=== PATIENT | male | born 1970 | race Caucasian/White ===

== ENCOUNTER 2018-03-15 06:54 | Inpatient (IN) | payer OTHER, SELFPAY ==
[2018-03-15] VITALS (14 sets, daily range): BP systolic 120–178; BP diastolic 55–117; PULSE 67–82; RESP 14–20; TEMP 35.4–37.6; O2SAT 93–100; BMI 39.5; BMI 40.2
--- NOTE | 2018-03-15 07:30 | CT_ITS ---
STUDY: CT ABDOMEN AND PELVIS WITHOUT CONTRAST REASON FOR EXAM: Male, 47 years old. Acute onset of right flank pain with nausea and vomiting. RADIATION DOSAGE (If Supplied By Facility): CTDIvol = ( 23.92 ) mGy, DLP = ( 1213.33 ) mGycm TECHNIQUE: Transaxial images were obtained from the dome of the diaphragm to the symphysis pubis without oral contrast, and without intravenous contrast. Sagittal and coronal images were reconstructed. Individualized dose optimization techniques were used for this CT. COMPARISON: Comparison is made with prior study dated July 08, 2011. FINDINGS: The visualized lung bases are unremarkable. The visualized portions of the heart are within normal limits. Normal liver. Normal gallbladder and extrahepatic biliary system. Normal spleen. Normal pancreas. Normal bilateral adrenal glands. Right perinephric stranding. There is engorgement of the right kidney. Mild degree of right hydronephrosis and right hydroureter due to a 3 mm calculus in the mid portion of the right ureter. Normal left kidney. There is a small hiatal hernia. Normal small intestine. There are scattered colonic diverticula consistent with diverticulosis. The appendix is visualized and appears normal. Normal abdominal aorta. Normal inferior vena cava. Normal retroperitoneum. Mild degree of bladder wall thickening although the bladder is not adequately distended at this time. There are prostatic calcifications. There is a small umbilical hernia containing fat. Small benign-appearing bilateral annular lymph nodes. Normal osseous structures. CT/Abdomen/Pelvis without Cont IMPRESSION: 3 mm calculus in the midportion of the right ureter causing mild right hydronephrosis and right hydroureter with perinephric and periureteric stranding. Electronically Signed: Gabriel Johnson MD at 8:54 EDT Tel [phone], Service support ,
[2018-03-15] MEDS: 0.9% Normal Saline 1,000 ML 1000 ML IV (07:56)
[2018-03-15] MEDS: Ketorolac 30 MG/ML Syringe IV (07:56)
[2018-03-15 08:05] LABS: Bacteria 0 SEEN /hpf (None Seen); Mucous, Urine 0 SEEN /hpf (<or=2+); Squamous Epithelial Cells - UA 0 SEEN /hpf (0-5); White Blood Cells 0 SEEN /hpf (0-5)
[2018-03-15 08:09] LABS: Absolute Lymphocyte Count 1.41 X10^3/ul (0.83-4.51); Absolute Neutrophil Count 19.8 X10^3/uL (2.0-7.7); Basophil# 0.03 X10^3/uL; Basophil% 0.1 % (0-1); Eosinophil# 0.01 X10^3/uL; Hematocrit 48.2 % (40-54); Hemoglobin 15.3 g/dl (13.0-16.5); Lymphocyte # 1.41 X10^3/ul (4.0); Lymphocyte % 6.2 % (19-41); Mean Corp Hgb Conc 31.7 g/gl (32-36); Mean Corpuscular Volume 91.3 fL (80-94); Mean Platelet Vol. 10.8 fl (6.2-12.0); Monocyte% 6.2 % (0-10); Neutrophil # 19.83 X10^3/uL (2.7-7.7); Neutrophil % 87.3 % (47-70); Platelet Count 201 K/mm3 (150-450); RBC Distribution Width CV 14.1 % (11.6-14.6); RBC Distribution Width SD 47.1 fl (35.1-43.9); Red Blood Count 5.28 M/mm3 (4.6-6.2); White Blood Count 22.7 K/mm3 (4.4-11.0)
[2018-03-15 08:10] LABS: POSITIVE COUNT NO; POSITIVE DIFFERENTIAL NO; POSITIVE MORPHOLOGY NO
[2018-03-15 08:14] LABS: Color, Urine Yellow (Yellow); Glucose, Dipstick Normal (Normal); Ketone-Dipstick Negative (Negative); Leukocyte Esterase-Dipstick Negative /ul (Negative); Nitrite-Dipstick Negative (Negative); Occult Blood-Urine 250 /ul (Negative); Protein-Dipstick Negative (Negative); Urine Bilirubin Dipstick Negative (Negative); Urine Clarity Clear (Clear); Urine Urobilinogen Normal (Normal)
[2018-03-15 08:22] LABS: AST(SGOT) 15 U/L (15-37); Alanine Aminotransfer ALT/SGPT 30 U/L (16-61); Alkaline Phosphatase 109 U/L (45-117); Anion Gap 6 (5-15); BUN 18 mg/dL (7-18); BUN/Creat Ratio 14.9 RATIO (10-20); Chloride 99 mmol/L (98-107); Creatinine, Serum 1.21 mg/dL (0.70-1.30); EST Glomerular Filtration Rate 68 mL/min (>60); Est Glom Filt Rate - Afr Amer 83 mL/min (>60); Estimated Creatinine Clearance 73.02 ml/min; Globulin 4.1 g/dL (2.2-4.2); Glucose 139 mg/dL (74-106); Lipase 148 U/L (73-393); Potassium 4.5 mmol/L (3.5-5.1); Protein, Total 8.1 g/dL (6.4-8.2); Sodium Level 138 mmol/L (136-145)
[2018-03-15 08:24] LABS: Red Blood Cells-Urine 25-50 SEEN /hpf (0-5)
--- NOTE | 2018-03-15 09:07 | ED.DCSUM_ITS ---
- ER Visit Summary Date of Service: 03/15/18 Chief Complaint: Flank pain History of Present Illness: The patient is a 47 M presenting with right-sided flank pain radiation into his abdomen and testicle that started last night. The pain is waxing and waning sharp and stabbing. No fever or chills. No dysuria or penile discharge. No left-sided abdominal pain. No chest pain or shortness of breath. Physical Examination: Not appear in acute distress. Morbidly obese Moist mucous membranes, no obvious facial deformity No C-spine tenderness supple neck. Regular rate and rhythm without any obvious murmurs Clear lungs bilaterally speaking in full sentences without any obvious respiratory distress Abdomen soft there is mild right-sided abdominal pain, there is testicular pain but I cannot reproduce it. There is right CVA tenderness to palpation. Moves all extremities without any difficulty or pain. Skin does not show any obvious rashes or lesions, no trauma. Alert oriented ?3 with no gross focal deficit Emergency Department Course and Treatment: Patient is found to have a 3 mm stone with perinephric stranding on the right. His white count is quite elevated, although his urinalysis only shows blood. I discussed with urology, a stent will be placed in about 5-1/2 hours. In the meantime patient will receive IV antibiotics, and he will be admitted to the hospital. Disposition: Admit in guarded condition Impression: Kidney stone right-sided infected This note was generated with [employer] 1 [employer] dictation software. It may contain incorrect words, spelling, and punctuation that were not noted in review of the chart prior to signing ED Disposition - Plan for ED Patient: Chief Complaint: Flank Pain Referrals: Sonny Price MD [Primary Care Provider] -
--- NOTE | 2018-03-15 09:22 | NURSING ---
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
--- NOTE | 2018-03-15 09:36 | NURSING ---
DR HEDY CASON
--- NOTE | 2018-03-15 09:40 | NURSING ---
MED SURG INFECTED MARAH KNOTT/YOAV
--- NOTE | 2018-03-15 09:59 | NURSING ---
205 PYELONEPHRITIS, RT URETERAL STONE, URETERAL COLIC TERELETSKY
--- NOTE | 2018-03-15 10:17 | CM.ED ---
Case management interview attempted. Care team in room at this time, preparing for [place] [facility] [place] CM will follow, for needs, during inpatient stay.
[2018-03-15] MEDS: 0.9% Normal Saline 1,000 ML 150 ML IV ×2 (10:48→18:55)
--- NOTE | 2018-03-15 11:27 | EKG12_ITS ---
Test Reason : PREOP Blood Pressure : / mmHG Vent. Rate : 061 BPM Atrial Rate : 061 BPM P-R Int : 130 ms QRS Dur : 098 ms QT Int : 436 ms P-R-T Axes : 052 015 019 degrees QTc Int : 438 ms Normal sinus rhythm Normal ECG When compared with ECG of 22-APR-2016 22:27, No significant change was found Confirmed by AKIRA REICH, IDALMIS ([id number]), editorial director JOANNA CARRILLO ([id number]) on 03/23/2018 3:09:24 PM Referred By: HEDY Confirmed By:IDALMIS CHAMPION MD
[2018-03-15 12:10] LABS: Thyroid Stim Hormone (TSH) 3.69 uIU/mL (0.358-3.74)
--- NOTE | 2018-03-15 13:21 | HP.PCM_ITS ---
Problem List (1) Hypertension Status: Chronic (2) Hyperlipidemia Status: Chronic (3) Depression Status: Chronic (4) Obesity Status: Chronic (5) Tobacco dependence Status: Chronic (6) Hypothyroidism Status: Chronic History of Present Illness Date of Admission: 03/15/18 Chief Complaint: Right-sided flank pain The patient is a 47 year old M who presents to the emergency room with right- sided flank pain which began at 1 AM this morning, rather suddenly. Patient states pain radiates to right side of abdomen and groin. Patient reports pain is sharp in nature and 10 out of 10 prior to receiving pain medication. He complains of associated nausea with episode of vomiting this morning and chills. Denies subjective fever. Complains of dysuria. Denies urinary frequency or difficulty urinating. Denies history of kidney stones. His past medical history includes hypertension, hyperlipidemia, depression, hypothyroidism, tobacco dependence, obesity. Past Medical History Past Medical History (Chronic Problems): Chronic Problems Hypertension (Chronic) Hyperlipidemia (Chronic) Depression (Chronic) Obesity (Chronic) Tobacco dependence (Chronic) Hypothyroidism (Chronic) Allergies No Known Allergies Allergy (Verified 03/15/18 06:59) Home Medications: Ambulatory Orders Medication Instructions Recorded Amlodipine [Norvasc] 10 mg PO DAILY 03/15/18 Atorvastatin Calcium 20 mg PO DAILY 03/15/18 Metoprolol Succinate 50 mg PO DAILY 03/15/18 Paroxetine [Paxil] 10 mg PO DAILY 03/15/18 Surgical History: tonsillectomy, - - Lipoma removal Psychiatric History: Depression Lives: Spouse/ Significant Other Smoking Status: Current every day smoker - 1 pack per day Alcohol: None Drugs: None - *Family History Maternal History Items: Cancer - Breast Paternal History Items: Heart Disease - at age 45 from [place]. Review of Systems Constitutional: Reports: Chills. Denies: Fever, Weakness, Weight Change HEENT: Denies: Head Aches, Sinus Congestion, Sinus Drainage Cardiovascular: Denies: Chest Pain, Edema, Palpitations, Syncope Respiratory: Denies: Cough, Shortness of breath at rest, Sputum production Gastrointestinal: Reports: Abdominal Pain, Nausea, Vomiting. Denies: Diarrhea Genitourinary: Reports: Dysuria. Denies: Frequency, Hematuria, Retention, Urgency Musculoskeletal: Reports: - - Right flank pain. Denies: Joint Pain, Joint Tenderness Skin: Denies: Rash, Wounds Neurological: Denies: Numbness, Tingling, Focal weakness Psychiatric: Reports: Depression Hematologic/ Lymphatic: Denies: Easy Bruising, Easy Bleeding VTE Information - Inpt Only VTE Present on Admission: No VTE Mechan Device Prophylaxis: None VTE Pharm Prophylaxis ordered?: Yes - Physical Exam General: Alert, Oriented x3, Cooperative, No apparent distress HEENT: Atraumatic, PERRLA, EOMI, Normocephalic Oral: Moist Mucosa Neck: Supple, No JVD, Negative Carotid Bruits Lungs: Clear to auscultation, Normal air movement Cardiovascular: Regular rate, Regular Rhythm, Normal S1, Normal S2, No murmurs Abdomen: Bowel Sounds Present, Soft, Non Tender, Non-Distended, - - Right flank pain Extremities: No clubbing, No cyanosis, No edema, Capillary Refill Less than 3 Seconds Skin: No rashes, No breakdown Musculoskeletal: No Tenderness to Palpation of Joints or Extremities Neurological: Cranial nerves II-XII grossly intact, Neuro grossly intact Psych/Mental Status: Normal Affect, Appropriate Vital Signs Temp Pulse Resp BP Pulse Ox 97.9 F 67 18 150/94 H 97 03/15/18 10:38 03/15/18 10:38 03/15/18 10:38 03/15/18 10:38 03/15/18 10:38 Oxygen Delivery Method Room Air Weight: 119.975 kg Body Mass Index (BMI) 40.2 Assessment/Plan 1. Infected right ureter calculus with associated mild right hydronephrosis and right hydroureter-without evidence of sepsis. Patient does have elevated white count. Continue IV Rocephin. Urology consulted. Patient to undergo right ureteral stone removal this afternoon. Blood cultures pending. Continue as needed pain regimen. Urine culture pending. CT of abdomen pelvis on admission showed 3 mm calculus in the midportion of the right ureter causing mild right hydronephrosis and right hydroureter. 2. Hypertension-blood pressure elevated on admission, suspect secondary to acute pain related to #1. Continue home regimen. Add hydralazine as needed for systolic greater than 160. 3. Hyperlipidemia-continue statin. 4. Hypothyroidism-continue home Synthroid regimen. TSH 3.6. 5. Tobacco dependence-encouraged tobacco cessation. Patient requesting nicotine replacement patch. 6. Obesity-encouraged diet and lifestyle modifications. Nutrition consult. DVT prophylaxis-heparin subcu. This patient was seen by MALAIKA Stevens under the supervision of Dr. Watkins.
[2018-03-15] MEDS: Morphine 4 MG/ML Syringe IV (13:58)
[2018-03-15] MEDS: Metoprolol(XL)Succ 50 MG Tablet PO (15:17)
--- NOTE | 2018-03-15 16:37 | CASEMGMT ---
RN CM chart review. DC PLAN: Home No DME use. Mary UNDERWOODN RN ACM
--- NOTE | 2018-03-15 16:43 | PCM.CONS.U ---
Problem List (1) Right ureteral calculus Status: Acute Reason for Consult Date of Consultation: 03/15/18 Reason for Consultation: Right proximal ureteral calculi causing obstruction History of Present Illness: The patient is a 47 year old M male who presented to the hospital with a fairly elevated white blood count he has a 5 mm stone causing obstruction and hydronephrosis in the right kidney he was admitted for pain control possible pyelonephritis and started antibiotics, plan to taken to surgery today for possible stent placement possible ureteroscopy depending of the findings to the patient at this is a lot of infection may only at the place a stent bring him back for as well later. Past Medical History Past Medical History (Chronic Problems): Chronic Problems Hypertension (Chronic) Hyperlipidemia (Chronic) Depression (Chronic) Obesity (Chronic) Tobacco dependence (Chronic) Hypothyroidism (Chronic) Allergies No Known Allergies Allergy (Verified 03/15/18 06:59) Home Medications: Ambulatory Orders Medication Instructions Recorded Amlodipine [Norvasc] 10 mg PO DAILY 03/15/18 Atorvastatin Calcium 20 mg PO DAILY 03/15/18 Metoprolol Succinate 50 mg PO DAILY 03/15/18 Paroxetine [Paxil] 10 mg PO DAILY 03/15/18 Surgical History: tonsillectomy, - - Lipoma removal Psychiatric History: Depression Lives: Spouse/ Significant Other Smoking Status: Current every day smoker - 1 pack per day Alcohol: None Drugs: None - *Family History Maternal History Items: Cancer - Breast Paternal History Items: Heart Disease - at age 45 from [place]. Review of Systems Constitutional: Denies: Chills, Fever, Weight Change HEENT: Denies: Head Aches, Sinus Congestion, Sinus Drainage Cardiovascular: Denies: Chest Pain, Palpitations Respiratory: Denies: Cough, Shortness of breath at rest, Sputum production Gastrointestinal: Denies: Abdominal Pain, Nausea, Vomiting Genitourinary: Denies: Dysuria Musculoskeletal: Denies: Joint Pain, Joint Tenderness Skin: Denies: Rash, Wounds Neurological: Denies: Numbness, Tingling, Focal weakness Psychiatric: Denies: Anxiety, Depression, Homicidal Ideations, Suicidal Ideations Hematologic/ Lymphatic: Denies: Easy Bruising, Easy Bleeding Physical Exam - Physical Exam Vital Signs Temp 98.9 F 03/15/18 13:20 Pulse 67 03/15/18 15:17 Resp 18 03/15/18 13:20 BP 147/91 H 03/15/18 15:17 Pulse Ox 96 03/15/18 13:20 Intake & Output 03/13/18 03/14/18 03/15/18 23:59 23:59 23:59 Intake Total 380 / 380 Output Total 500 / 500 Balance -120 / -120 Weight: 119.975 kg Intake: IV fluid/meds 380 / 380 Output: Urine 500 / 500 General: Alert, Oriented x3 HEENT: Atraumatic Oral: Moist Mucosa Neck: Supple Lungs: Normal air movement Cardiovascular: Regular Rhythm Abdomen: Bowel Sounds Present, Soft, Obese Rectal: Exam deferred Laboratory Tests Past 24 Hrs 03/15/18 14:05 S.aureus Protein A PCR Cancelled MRSA (PCR) Pending Assessment/Plan All Active Problems Right ureteral calculus (Acute) 47-year-old male with obstructing stone in the proximal right ureter possible pyelonephritis plan to proceed with ureteroscopy extraction of stone and right stent placement tonight.
--- NOTE | 2018-03-15 17:18 | OP.PCM_ITS ---
Problem List (1) Right ureteral calculus Status: Acute Report of Operation Date of Procedure: 03/15/18 Pre-Operative Diagnosis: Right ureteral calculi with obstruction Post-Operative Diagnosis: Same Surgery/Procedure Performed:: Cystoscopy, right retrograde pyelogram, balloon dilation of the right ureter, right stent placement Description of Surgical Findings:: 47-year-old male presented to the hospital obstructing stone in the right ureter , taken back to the operating room after smooth induction of general anesthesia went into the bladder with a 19.5 rigid cystoscopy set, the entire length of the urethra is normal the prostate was normal inside the bladder identified the right ureteral orifice advanced a Glidewire up into the right kidney could not identify a stone under fluoroscopy could be radiolucent, I then attempted to place an axis sheath into the right kidney but I could not get past the ureteral orifice was white quite stenotic, so then I advanced the balloon dilator and balloon dilated the distal ureter but I could not get it to balloon dilate completely there was still an area of stenosis that would not dilate so at this point I tried one more time the passive axis sheath was still was not successful so I decided to abort the attempt to do ureteroscopy just place a stent with the bring him back in about 2 weeks let everything dilate. Patient anesthetic is currently being reversed he will be able to be discharged after he is in the hospital and I have my office call him to get him set up for surgery in about 2 weeks. Type of Anesthesia:: General Drains: stent kidney stone - Admit VTE Documentation VTE Present on Admission: No VTE Mechan Device Prophylaxis: SCD's VTE Pharm Prophylaxis ordered?: No Reason prophylaxis not ordered:: Treatment Not Indicated
[2018-03-15] MEDS: amLODIPine 10 MG Tablet PO (18:55)
[2018-03-15] MEDS: PARoxetine 10 MG Tablet PO (18:57)
[2018-03-15] MEDS: oxyCODONE 5 MG Tablet PO (19:52)
[2018-03-15] MEDS: Atorvastatin Calcium 20 MG Tablet PO (21:14)
[2018-03-15 23:19] LABS: M R Staph aureus DNA By PCR Negative (Negative); Probe Check PASS; Specimen Processing Control PASS
[2018-03-16] MEDS: 0.9% Normal Saline 1,000 ML 150 ML IV ×2 (01:07→06:59)
[2018-03-16] MEDS: Morphine 4 MG/ML Syringe IV (01:08)
[2018-03-16 03:48] VITALS: BP 109/64; PULSE 71; RESP 20; TEMP 36.9; O2SAT 96
[2018-03-16 06:14] LABS: Absolute Lymphocyte Count 2.24 X10^3/ul (0.83-4.51); Absolute Neutrophil Count 10.9 X10^3/uL (2.0-7.7); Basophil# 0.02 X10^3/uL; Basophil% 0.1 % (0-1); Eosinophil# 0.07 X10^3/uL; Eosinophils% 0.5 % (0-5); Hematocrit 42.3 % (40-54); Hemoglobin 12.9 g/dl (13.0-16.5); Lymphocyte # 2.24 X10^3/ul (4.0); Lymphocyte % 16.2 % (19-41); Mean Corp Hgb Conc 30.5 g/gl (32-36); Mean Corpuscular Hgb 28.3 pg (27.0-32.0); Mean Corpuscular Volume 92.8 fL (80-94); Mean Platelet Vol. 10.8 fl (6.2-12.0); Monocyte# 0.59 X10^3/uL; Monocyte% 4.3 % (0-10); Neutrophil # 10.91 X10^3/uL (2.7-7.7); Neutrophil % 78.7 % (47-70); Platelet Count 171 K/mm3 (150-450); RBC Distribution Width CV 14.7 % (11.6-14.6); RBC Distribution Width SD 50.2 fl (35.1-43.9); Red Blood Count 4.56 M/mm3 (4.6-6.2); White Blood Count 13.9 K/mm3 (4.4-11.0)
[2018-03-16 06:24] LABS: POSITIVE COUNT NO; POSITIVE DIFFERENTIAL NO; POSITIVE MORPHOLOGY NO
[2018-03-16 06:34] LABS: Anion Gap 6 (5-15); BUN 14 mg/dL (7-18); Calcium,Total 7.8 mg/dL (8.5-10.1); Chloride 106 mmol/L (98-107); EST Glomerular Filtration Rate 85 mL/min (>60); Est Glom Filt Rate - Afr Amer 103 mL/min (>60); Estimated Creatinine Clearance 88.35 ml/min; Glucose 93 mg/dL (74-106); Potassium 4.4 mmol/L (3.5-5.1); Sodium Level 143 mmol/L (136-145)
--- NOTE | 2018-03-16 07:53 | PCM.PN.BLA ---
Progress Note Once clinically stable can go home has stent in place my office will call patient to set up surgery to remove stone. call with questions.
[2018-03-16] MEDS: oxyCODONE 5 MG Tablet PO (08:55)
[2018-03-16 09:00] VITALS: RESP 18
[2018-03-16 09:34] VITALS: BP 118/70; PULSE 74; RESP 18; TEMP 36.9; O2SAT 97
--- NOTE | 2018-03-16 09:42 | DCINST_ITS ---
- Discharge Diagnoses Current Active Problems: Current Active and Chronic Problems Hypertension (Chronic) Hyperlipidemia (Chronic) Depression (Chronic) Obesity (Chronic) Tobacco dependence (Chronic) Hypothyroidism (Chronic) Right ureteral calculus (Acute) You will use the following diet at home:: No restrictions Discharge Activity: Return to Normal Activity Call your doctor if you observe: Fever of 101 or Higher, Inability to urinate, Dizziness, Fainting spells, Chest pain Allergies/Adverse Reactions: Allergies No Known Allergies Allergy (Verified 03/15/18 06:59) Medications to take at Discharge Amlodipine [Norvasc] 10 mg PO DAILY 03/15/18 Atorvastatin Calcium 20 mg PO DAILY 03/15/18 Metoprolol Succinate 50 mg PO DAILY 03/15/18 Paroxetine [Paxil] 10 mg PO DAILY 03/15/18 Ciprofloxacin [Cipro] 500 mg PO BID #10 tab 03/16/18 Hydrocodone Bitart/Apap 5-325 [[place] 5MG-325MG] 1 tablet PO Q4H PRN PRN 4 Days # 20 tablet 03/16/18 Nicotine [Nicoderm Cq] 21 mg TRANSDERM. DAILY #7 patch 03/16/18 The following prescriptions were given: Hydrocodone Bitart/Apap 5-325 [[place] 5MG-325MG] 1 tablet PO Q4H PRN PRN 4 Days # 20 tablet PRN Reason: Pain Nicotine [Nicoderm Cq] 21 mg TRANSDERM. DAILY #7 patch Ciprofloxacin [Cipro] 500 mg PO BID #10 tab Primary Care Physician: Sonny Price MD [Primary Care Provider] - Please follow up with your Primary Care Physician in: 1 Week Test Results: Test results from this visit will be discussed in further detail at your follow- up appointment, if applicable. Please Follow Up With: Harpreet Viramontes MD When: 2 Weeks Proposed Discharge Date: 03/16/18
--- NOTE | 2018-03-16 09:43 | PCM.DC.SUM ---
Discharge Date and Diagnosis Date of Admission: 03/15/18 Date of Discharge: 03/16/18 - Primary Discharge Diagnosis Active and Suspected Problems 1. Acute pyelonephritis and right ureteral colic with right hydronephrosis secondary to right ureter calculus 2. Hypertension 3. Hyperlipidemia 4. Hypothyroidism 5. Tobacco dependence 6. Obesity - Secondary Discharge Diagnosis Chronic Problems Hypertension (Chronic) Hyperlipidemia (Chronic) Depression (Chronic) Obesity (Chronic) Tobacco dependence (Chronic) Hypothyroidism (Chronic) Hospital Course and Treatment Imaging Results: Diagnostic Data Abdomen/Pelvis CT 03/15/18 07:30 IMPRESSION: 3 mm calculus in the midportion of the right ureter causing mild right hydronephrosis and right hydroureter with perinephric and periureteric stranding. Electronically Signed: Gabriel Johnson MD at 8:54 EDT Tel [phone], Service support , Dr. Viramontes- Urology Procedures: - - Cystoscopy, right ureter stent placement Summary of Care Provided: Patient is a 47-year-old male admitted 03/15/2018 due to right-sided flank pain. His past medical history includes hypertension, hyperlipidemia, depression, hypothyroidism, tobacco dependence, obesity. 1. Acute pyelonephritis and right ureteral colic with right hydronephrosis-no evidence of sepsis. Leukocytosis improved. Patient received IV Rocephin during admission. Will discharge on Cipro 500 mg twice daily for 5 more days. Patient underwent cystoscopy, right retrograde pyelogram, balloon dilation of the right ureter with right stent placement 03/15/[address] Viramontes due to right ureteral calculi with obstruction. CT of abdomen pelvis on admission showed 3 mm calculus in the midportion of the right ureter causing mild right hydronephrosis and right hydroureter. Patient will follow up with Dr. Viramontes in 2 weeks. PCP in 1 Week. Patient will be discharged with [place] as needed for pain. Blood and urine cultures pending at discharge. 2. Hypertension-stable, continue home regimen. 3. Hyperlipidemia-continue statin. 4. Hypothyroidism-continue home Synthroid regimen. TSH 3.6. 5. Tobacco dependence-encouraged tobacco cessation. Patient requesting nicotine replacement patch at discharge. 6. Obesity-encouraged diet and lifestyle modifications. General: Alert, Oriented x3, Cooperative, No apparent distress HEENT: Atraumatic, PERRLA, EOMI, Normocephalic Oral: Moist Mucosa Neck: Supple, No JVD, Negative Carotid Bruits Lungs: Clear to auscultation, Normal air movement Cardiovascular: Regular rate, Regular Rhythm, Normal S1, Normal S2, No murmurs Abdomen: Bowel Sounds Present, Soft, Non Tender, Non-Distended Extremities: No clubbing, No cyanosis, No edema, Capillary Refill Less than 3 Seconds Skin: No rashes, No breakdown Musculoskeletal: No Tenderness to Palpation of Joints or Extremities Neurological: Cranial nerves II-XII grossly intact, Neuro grossly intact Psych/Mental Status: Normal Affect, Appropriate Patient seen and examined at discharge. Physical assessment as noted above. Patient stable for discharge home with the follow-up recommendations as noted above. This patient was seen by MALAIKA Stevens under the supervision of Dr. Watkins. Discharge Diet: No Restrictions Discharge Activity: Return to Normal Activity Call your doctor if you observe: Fever of 101 or Higher, Inability to urinate, Dizziness, Fainting spells, Chest pain Home Medications: Medications to take at Discharge Amlodipine [Norvasc] 10 mg PO DAILY 03/15/18 Atorvastatin Calcium 20 mg PO DAILY 03/15/18 Metoprolol Succinate 50 mg PO DAILY 03/15/18 Paroxetine [Paxil] 10 mg PO DAILY 03/15/18 Ciprofloxacin [Cipro] 500 mg PO BID #10 tab 03/16/18 Hydrocodone Bitart/Apap 5-325 [[place] 5MG-325MG] 1 tablet PO Q4H PRN PRN 4 Days #20 tablet 03/16/18 Nicotine [Nicoderm Cq] 21 mg TRANSDERM. DAILY #7 patch 03/16/18 Following Prescrptions Were Given to Patient: Hydrocodone Bitart/Apap 5-325 [[place] 5MG-325MG] 1 tablet PO Q4H PRN PRN 4 Days #20 tablet PRN Reason: Pain Nicotine [Nicoderm Cq] 21 mg TRANSDERM. DAILY #7 patch Ciprofloxacin [Cipro] 500 mg PO BID #10 tab Primary Care Physician: Sonny Price MD [Primary Care Provider] - Please follow up with your Primary Care Physician in: 1 Week Please Follow Up With: Harpreet Viramontes MD When: 2 Weeks Disposition: Home Minutes spent on discharge:: 35 Patient Condition:: Stable Medical Necessity - Tobacco Use Smoking Status: Current every day smoker - 1 pack per day Meaningful Use Info Meaningful Use Diagnoses (Choose all that apply): None applicable
--- NOTE | 2018-03-16 09:51 | DS.PCM_ITS ---
Discharge Date and Diagnosis Date of Admission: 03/15/18 Date of Discharge: 03/16/18 - Primary Discharge Diagnosis Active and Suspected Problems 1. Acute pyelonephritis and right ureteral colic with right hydronephrosis secondary to right ureter calculus 2. Hypertension 3. Hyperlipidemia 4. Hypothyroidism 5. Tobacco dependence 6. Obesity - Secondary Discharge Diagnosis Chronic Problems Hypertension (Chronic) Hyperlipidemia (Chronic) Depression (Chronic) Obesity (Chronic) Tobacco dependence (Chronic) Hypothyroidism (Chronic) Hospital Course and Treatment Imaging Results: Diagnostic Data Abdomen/Pelvis CT 03/15/18 07:30 IMPRESSION: 3 mm calculus in the midportion of the right ureter causing mild right hydronephrosis and right hydroureter with perinephric and periureteric stranding. Electronically Signed: Gabriel Johnson MD at 8:54 EDT Tel [phone], Service support , Dr. Viramontse- Urology Procedures: - - Cystoscopy, right ureter stent placement Summary of Care Provided: Patient is a 47-year-old male admitted 03/15/2018 due to right-sided flank pain. His past medical history includes hypertension, hyperlipidemia, depression, hypothyroidism, tobacco dependence, obesity. 1. Acute pyelonephritis and right ureteral colic with right hydronephrosis-no evidence of sepsis. Leukocytosis improved. Patient received IV Rocephin during admission. Will discharge on Cipro 500 mg twice daily for 5 more days. Patient underwent cystoscopy, right retrograde pyelogram, balloon dilation of the right ureter with right stent placement 03/15/[address] Viramontes due to right ureteral calculi with obstruction. CT of abdomen pelvis on admission showed 3 mm calculus in the midportion of the right ureter causing mild right hydronephrosis and right hydroureter. Patient will follow up with Dr. iVramontes in 2 weeks. PCP in 1 Week. Patient will be discharged with [place] as needed for pain. Blood and urine cultures pending at discharge. 2. Hypertension-stable, continue home regimen. 3. Hyperlipidemia-continue statin. 4. Hypothyroidism-continue home Synthroid regimen. TSH 3.6. 5. Tobacco dependence-encouraged tobacco cessation. Patient requesting nicotine replacement patch at discharge. 6. Obesity-encouraged diet and lifestyle modifications. General: Alert, Oriented x3, Cooperative, No apparent distress HEENT: Atraumatic, PERRLA, EOMI, Normocephalic Oral: Moist Mucosa Neck: Supple, No JVD, Negative Carotid Bruits Lungs: Clear to auscultation, Normal air movement Cardiovascular: Regular rate, Regular Rhythm, Normal S1, Normal S2, No murmurs Abdomen: Bowel Sounds Present, Soft, Non Tender, Non-Distended Extremities: No clubbing, No cyanosis, No edema, Capillary Refill Less than 3 Seconds Skin: No rashes, No breakdown Musculoskeletal: No Tenderness to Palpation of Joints or Extremities Neurological: Cranial nerves II-XII grossly intact, Neuro grossly intact Psych/Mental Status: Normal Affect, Appropriate Patient seen and examined at discharge. Physical assessment as noted above. Patient stable for discharge home with the follow-up recommendations as noted above. This patient was seen by MALAIKA Stevens under the supervision of Dr. Watkins. Discharge Diet: No Restrictions Discharge Activity: Return to Normal Activity Call your doctor if you observe: Fever of 101 or Higher, Inability to urinate, Dizziness, Fainting spells, Chest pain Home Medications: Medications to take at Discharge Amlodipine [Norvasc] 10 mg PO DAILY 03/15/18 Atorvastatin Calcium 20 mg PO DAILY 03/15/18 Metoprolol Succinate 50 mg PO DAILY 03/15/18 Paroxetine [Paxil] 10 mg PO DAILY 03/15/18 Ciprofloxacin [Cipro] 500 mg PO BID #10 tab 03/16/18 Hydrocodone Bitart/Apap 5-325 [[place] 5MG-325MG] 1 tablet PO Q4H PRN PRN 4 Days # 20 tablet 03/16/18 Nicotine [Nicoderm Cq] 21 mg TRANSDERM. DAILY #7 patch 03/16/18 Following Prescrptions Were Given to Patient: Hydrocodone Bitart/Apap 5-325 [[place] 5MG-325MG] 1 tablet PO Q4H PRN PRN 4 Days # 20 tablet PRN Reason: Pain Nicotine [Nicoderm Cq] 21 mg TRANSDERM. DAILY #7 patch Ciprofloxacin [Cipro] 500 mg PO BID #10 tab Primary Care Physician: Sonny Price MD [Primary Care Provider] - Please follow up with your Primary Care Physician in: 1 Week Please Follow Up With: Harpreet Viramontes MD When: 2 Weeks Disposition: Home Minutes spent on discharge:: 35 Patient Condition:: Stable Medical Necessity - Tobacco Use Smoking Status: Current every day smoker - 1 pack per day Meaningful Use Info Meaningful Use Diagnoses (Choose all that apply): None applicable
[2018-03-16] MEDS: Ceftriaxone 1 GM/50 ML BAG IV (10:11)
[2018-03-16 10:13] VITALS: PULSE 64
[2018-03-16] MEDS: PARoxetine 10 MG Tablet PO (10:13)
[2018-03-16] MEDS: Metoprolol(XL)Succ 50 MG Tablet PO (10:13)
[2018-03-16] MEDS: amLODIPine 10 MG Tablet PO (10:14)
[2018-03-16] MEDS: Heparin Injection (Vial) 5,000 UNIT/ML VIAL 5000 UNIT SC (10:14)
[2018-03-16 11:51] VITALS: BP 130/77; PULSE 70; RESP 18; TEMP 36.8; O2SAT 95
== END 2018-03-16 11:48 | disposition home or self-care (01) | DRG 690 ==
LOC: ED 09:28 → MS2 09:58
PROVIDERS: Urology; Admitting Provider Internal Medicine; Emergency Provider Emergency Medicine; Family Provider Family Medicine; PCP Family Medicine; Visit Provider Internal Medicine
PROC: 0T768DZ Dilation of Right Ureter with Intraluminal Device, Via Natural or Artificial Opening Endoscopic (ICD-10-PCS; principal; 2018-03-15 09:15)
DX: N13.6 Pyonephrosis (principal); Z68.41 Body mass index [BMI] 40.0-44.9, adult; N10 Acute pyelonephritis; E78.5 Hyperlipidemia, unspecified; E03.9 Hypothyroidism, unspecified; E66.9 Obesity, unspecified; I10 Essential (primary) hypertension; F32.9 Major depressive disorder, single episode, unspecified; F17.210 Nicotine dependence, cigarettes, uncomplicated
CPT/HCPCS: 36415; 74176; 76000; 80048; 80053; 81001; 83690; 84443; 85025; 87040; 87086; 87641; 93005; 99282; J7030; A4216; C1769; C2617; J2405

== ENCOUNTER → 2018-03-25 20:25 | Outpatient (CLI) | payer OTHER, SELFPAY | LOC: SL 20:25 | PROVIDERS: Family Provider Family Medicine; PCP Family Medicine; Visit Provider Family Medicine | DX: G47.33 Obstructive sleep apnea (adult) (pediatric) (principal) | CPT/HCPCS: 95811 ==

== ENCOUNTER → 2018-03-29 15:44 | Outpatient (CLI) | payer OTHER, SELFPAY ==
[2018-04-06 20:07] LABS: Ca Oxalate, Monohydrate 97 % (.)
== END ==
PROVIDERS: Visit Provider Urology
DX: N20.0 Calculus of kidney (principal)
CPT/HCPCS: 82360

== ENCOUNTER 2019-02-08 07:19 | Emergency (ER) | payer OTHER, SELFPAY ==
[2019-02-08 07:22] VITALS: BP 171/112; PULSE 82; RESP 16; TEMP 37.1; O2SAT 99; BMI 37.2
--- NOTE | 2019-02-08 07:40 | CT_ITS ---
STUDY: CT ABDOMEN AND PELVIS WITHOUT CONTRAST REASON FOR EXAM: Male, 48 years old. Right flank pain. History of kidney stones. RADIATION DOSAGE (If Supplied By Facility): CTDIvol = ( 19.95 ) mGy, DLP = ( 1051.73 ) mGycm TECHNIQUE: Transaxial images were obtained from the dome of the diaphragm to the symphysis pubis without oral contrast, and without intravenous contrast. Sagittal and coronal images were reconstructed. Individualized dose optimization techniques were used for this CT. COMPARISON: Comparison is made with prior study dated March 15, 2018. FINDINGS: The visualized lung bases are unremarkable. The visualized portions of the heart are within normal limits. Normal liver. Normal gallbladder and extrahepatic biliary system. Normal spleen. Normal pancreas. There is symmetric mild enlargement of the adrenal glands suggesting adrenal hyperplasia. Normal right kidney. Fullness of the right ureter although no obstructive calculus is seen. Normal left kidney. There is a small hiatal hernia. Normal small intestine. There are scattered colonic diverticula consistent with diverticulosis. The appendix is visualized and appears normal. There is scattered atherosclerotic calcification of the abdominal aorta, without a demonstrated aneurysm. Normal inferior vena cava. There is borderline retroperitoneal lymphadenopathy with enlarged nodes no greater than 10mm in the short axis diameter. Distended urinary bladder. There are prostatic calcifications. There is a small umbilical hernia containing fat. There are mild degenerative changes of the visualized lumbar spine. CT/Abdomen/Pelvis without Cont IMPRESSION: Fullness of the right ureter without obstructive uropathy. Distended urinary bladder. Electronically Signed: Gabriel Johnson, at 8:47 EDT , Service support ,
--- NOTE | 2019-02-08 07:42 | ED.VIS.GEN ---
History of Present Illness Chief Complaint: Back Informant: Patient, Significant Other Onset: Days - Onset Thursday Context: Sudden Onset Timing: Continuous, Waxes and wanes Quality: Pain Location: Right flank radiating anteriorly Current Severity: Moderate Maximum Severity: Severe Worsened by: Nothing at times and movement movement Relieved by: Nothing Associated Symptoms: Urgency and patient reports black stool Narrative: Patient is a middle-age male with history of hypertension and prior ureterolithiasis requiring surgery approximately 1 year ago who presents with right flank pain that started Thursday. The pain radiates anteriorly. The pain she did states pain has intensified. Today the pain was severe. He does report urgency. He denies hematuria. He denies dysuria. He denies fever, chills or night sweats. He does report nausea without vomiting or diarrhea. He denies anorexia. He states this is similar to the pain he experienced with prior stone. Prior similar symptoms: Yes Recent Illness/Hospitalization: No - Past Medical History (1) Right ureteral calculus Status: Acute (2) Depression Status: Chronic (3) Hyperlipidemia Status: Chronic (4) Hypertension Status: Chronic (5) Hypothyroidism Status: Chronic (6) Obesity Status: Chronic (7) Tobacco dependence Status: Chronic Past Medical History - Allergies and Home Meds Allergies/Adverse Reactions: Allergies No Known Allergies Allergy (Verified 02/08/19 07:20) Primary Care Physician: Sonny Price MD [Primary Care Provider] - Prior records reviewed: Yes Surgical History: tonsillectomy, - - Lipoma removal Lives: Spouse/ Significant Other Smoking Status: Current every day smoker Drugs: None - Family History Maternal Family History: Reports: Cancer - Breast Paternal Family History: Reports: Heart Disease - at age 45 from [place]. Review of Systems General: Denies: Chills, Fever, Sweats Eyes: Denies: Visual changes - bilaterally, Diplopia ENT: Denies: Rhinorrhea, Sore throat Cardiovascular: Denies: Chest pain, Palpitations Respiratory: Denies: Dyspnea, Cough, Dyspnea on exertion Gastrointestinal: Reports: Abdominal pain, Nausea, Melena. Denies: Vomiting, Diarrhea, Constipation, Hematochezia, -, - Genitourinary: Reports: - - He does report urgency. Denies: Dysuria, Hematuria, Frequency Musculoskeletal: Reports: Back pain. Denies: Myalgias, Arthralgias, Neck pain, Swelling, Extremity Pain, -, - Skin: Denies: Rash, Wounds Neurological: Denies: Headache, Weakness, Numbness Endocrine: Denies: Polyuria, Polydipsia Hematologic: Denies: Easy bruising, Easy bleeding Physical Exam Vital Signs/Narrative: Vital Signs Temp Pulse Resp BP Pulse Ox 02/08/19 07:22 98.7 F 82 16 171/112 H 99 Inital Vital Signs reviewed: Yes - Blood pressure is elevated. Patient is in significant discomfort will reas General: Well nourished, Well developed, Obese, Acute Distress Head: Normocephalic, Atraumatic Eyes: Perrl, EOMI. Negative for: Pale conjunctiva, Scleral icterus, - ENT: Moist mucous membranes, No rhinorrhea Neck: Supple, Nontender, No lymphadenopathy, No JVD Cardiovascular: Regular rate, Regular rhythm, No murmurs, Normal S1, Normal S2 Respiratory: No distress, CTA bilaterally, Chest nontender Abdomen: Soft, Nondistended, No masses, Tender - Tenderness to right lower quadrant and over the right kidney., Guarding - With deep palpation on the right side, Hypoactive bowel sounds. Negative for: Nontender, Normal bowel sounds, Rebound tenderness, Hepatomegaly, Splenomegaly, Mass, Pulsatile mass, Ventral hernia, Umbilical hernia Rectal: - - No fissures, fistulas or hemorrhoids. Prostate normal size and nontender. Stool is brown. Back: Nontender, Normal Inspection, CVA tenderness - On the right Extremities: Nontender, No edema Skin: Normal color, No rash, No Trauma. Negative for: Cyanosis, Diaphoresis, Jaundice Neurological: Alert, Oriented x3, Cranial nerves II-XII grossly intact, Normal Strength, Normal Sensation, Normal Gait Psychological: Normal affect, Normal Mood Diagnostic/Tx/Re-eval Impressions Abdomen/Pelvis CT 02/08/19 07:40 IMPRESSION: Fullness of the right ureter without obstructive uropathy. Distended urinary bladder. Electronically Signed: Gabriel Johnson, at 8:47 EDT , Service support , 02/08/19 07:40 Abdomen/Pelvis without Cont [CT] Stat Laboratory Results 02/08/19 02/08/19 02/08/19 07:30 07:47 07:47 WBC 13.5 H RBC 5.66 Hgb 16.2 Hct 49.0 MCV 86.6 MCH 28.6 MCHC 33.1 RDW 14.6 RDW Differential 46.2 H Plt Count 200 MPV 10.3 Immature Gran % (Auto) 0.900 Neut % (Auto) 74.9 H Lymph % (Auto) 17.4 L [place] % (Auto) 5.2 Eos % (Auto) 1.3 Baso % (Auto) 0.3 Absolute Neuts (auto) 10.1 H Absolute Lymphs (auto) 2.34 Total Counted Not Reportable Sodium 138 Potassium 3.9 Chloride 100 Carbon Dioxide 31.0 Anion Gap 7 BUN 13 Creatinine 0.82 Estim Creat Clear Calc 106.59 Est GFR (MDRD) Af Amer 128 Est GFR (MDRD) Non-Af 106 BUN/Creatinine Ratio 15.8 Glucose 100 Calcium 9.0 Urine Color Straw Urine Clarity Clear Urine pH 7.0 Ur Specific [place] 1.005 Urine Protein Negative Urine Glucose (UA) Normal Urine Ketones Negative Urine Occult Blood Negative Urine Nitrite Negative Urine Bilirubin Negative Urine Urobilinogen Normal Ur Leukocyte Esterase Negative Urine RBC 0 SEEN Urine WBC 0 SEEN Ur Squamous Epith Cells 0 SEEN Urine Bacteria 0 SEEN Urine Mucus 0 SEEN Blood work is remarkable and elevated white count. Bladder scan revealed 236 cc of urine. Postvoid was 0. Because of his leukocytosis unknown. Since the appendix was visualized and normal and onset of pain was greater than 48 hours highly doubt appendicitis. Suspect leukocytosis is demargination secondary to pain. - Medical Decision Making With right flank pain rating anteriorly with urgency suspect ureterolithiasis. With complaint of pain with movement may represent atypical presentation of retro-celiac appendicitis. There is tenderness in the proximity McBurney's point. This may also represent right-sided diverticulitis. 2 work-up patient's presentation a CBC, BMP and UA were ordered. He was medicated with 4 mg of Zofran, 50 mg of Toradol IV push and fluids. A CT of the abdomen pelvis without contrast was ordered to evaluate the system as well as the appendix and bowel. One would anticipate inflammatory changes if appendicitis or diverticulitis with onset of pain greater than 48 hours ago and reason for unenhanced scan. Patient still complaining of pain. Since the CAT scan reveals no acute pathology other than dilated ureter there may be a nonvisualized stone. Doubt passed stone since there is no stone noted in the bladder and patient did not pass stone when he urinated after bladder scan. Will treat with NSAID and opiate analgesia and follow-up in 24 to 48 hours. ED Disposition - Plan for ED Patient: Disposition: Home or Assisted Living Diagnosis: Acute right flank pain, Right lower quadrant abdominal pain, Leukocytosis, Acute low back pain without sciatica Instructions: ED Flank Pain Uncertain Cause, ED Abdominal Pain Unkn Cause Male, ED Neck Back Pain General Prescriptions: Hydrocodone Bitart/Apap 5-325 [[place] 5MG-325MG] 1 tablet PO Q6H PRN PRN 3 Days #10 tablet PRN Reason: Pain Naproxen [Naprosyn] 500 mg PO BID #14 tablet Referrals: Sonyn Price MD [Primary Care Provider] - 1-2 Days if not improving Additional Instructions: Your prescriptions were electronically transmitted to [facility] located in [place]. There is no improvement in 24 hours recommend follow-up with your primary care physician Dr. Price. If you unable to be seen by your doctor do not hesitate to return to the emergency department.
--- NOTE | 2019-02-08 07:46 | ED.DCSUM_ITS ---
History of Present Illness Chief Complaint: Back Informant: Patient, Significant Other Onset: Days - Onset Thursday Context: Sudden Onset Timing: Continuous, Waxes and wanes Quality: Pain Location: Right flank radiating anteriorly Current Severity: Moderate Maximum Severity: Severe Worsened by: Nothing at times and movement movement Relieved by: Nothing Associated Symptoms: Urgency and patient reports black stool Narrative: Patient is a middle-age male with history of hypertension and prior ureterolithiasis requiring surgery approximately 1 year ago who presents with right flank pain that started Thursday. The pain radiates anteriorly. The pain she did states pain has intensified. Today the pain was severe. He does report urgency. He denies hematuria. He denies dysuria. He denies fever, chills or night sweats. He does report nausea without vomiting or diarrhea. He denies anorexia. He states this is similar to the pain he experienced with prior stone. Prior similar symptoms: Yes Recent Illness/Hospitalization: No - Past Medical History (1) Right ureteral calculus Status: Acute (2) Depression Status: Chronic (3) Hyperlipidemia Status: Chronic (4) Hypertension Status: Chronic (5) Hypothyroidism Status: Chronic (6) Obesity Status: Chronic (7) Tobacco dependence Status: Chronic Past Medical History - Allergies and Home Meds Allergies/Adverse Reactions: Allergies No Known Allergies Allergy (Verified 02/08/19 07:20) Primary Care Physician: Sonny Price MD [Primary Care Provider] - Prior records reviewed: Yes Surgical History: tonsillectomy, - - Lipoma removal Lives: Spouse/ Significant Other Smoking Status: Current every day smoker Drugs: None - Family History Maternal Family History: Reports: Cancer - Breast Paternal Family History: Reports: Heart Disease - at age 45 from [place]. Review of Systems General: Denies: Chills, Fever, Sweats Eyes: Denies: Visual changes - bilaterally, Diplopia ENT: Denies: Rhinorrhea, Sore throat Cardiovascular: Denies: Chest pain, Palpitations Respiratory: Denies: Dyspnea, Cough, Dyspnea on exertion Gastrointestinal: Reports: Abdominal pain, Nausea, Melena. Denies: Vomiting, Diarrhea, Constipation, Hematochezia, -, - Genitourinary: Reports: - - He does report urgency. Denies: Dysuria, Hematuria, Frequency Musculoskeletal: Reports: Back pain. Denies: Myalgias, Arthralgias, Neck pain, Swelling, Extremity Pain, -, - Skin: Denies: Rash, Wounds Neurological: Denies: Headache, Weakness, Numbness Endocrine: Denies: Polyuria, Polydipsia Hematologic: Denies: Easy bruising, Easy bleeding Physical Exam Vital Signs/Narrative: Vital Signs Temp Pulse Resp BP Pulse Ox 02/08/19 07:22 98.7 F 82 16 171/112 H 99 Inital Vital Signs reviewed: Yes - Blood pressure is elevated. Patient is in significant discomfort will reas General: Well nourished, Well developed, Obese, Acute Distress Head: Normocephalic, Atraumatic Eyes: Perrl, EOMI. Negative for: Pale conjunctiva, Scleral icterus, - ENT: Moist mucous membranes, No rhinorrhea Neck: Supple, Nontender, No lymphadenopathy, No JVD Cardiovascular: Regular rate, Regular rhythm, No murmurs, Normal S1, Normal S2 Respiratory: No distress, CTA bilaterally, Chest nontender Abdomen: Soft, Nondistended, No masses, Tender - Tenderness to right lower quadrant and over the right kidney., Guarding - With deep palpation on the right side, Hypoactive bowel sounds. Negative for: Nontender, Normal bowel sounds, Rebound tenderness, Hepatomegaly, Splenomegaly, Mass, Pulsatile mass, Ventral hernia, Umbilical hernia Rectal: - - No fissures, fistulas or hemorrhoids. Prostate normal size and nontender. Stool is brown. Back: Nontender, Normal Inspection, CVA tenderness - On the right Extremities: Nontender, No edema Skin: Normal color, No rash, No Trauma. Negative for: Cyanosis, Diaphoresis, Jaundice Neurological: Alert, Oriented x3, Cranial nerves II-XII grossly intact, Normal Strength, Normal Sensation, Normal Gait Psychological: Normal affect, Normal Mood Diagnostic/Tx/Re-eval Impressions Abdomen/Pelvis CT 02/08/19 07:40 IMPRESSION: Fullness of the right ureter without obstructive uropathy. Distended urinary bladder. Electronically Signed: Gabriel Johnson, at 8:47 EDT , Service support , 02/08/19 07:40 Abdomen/Pelvis without Cont [CT] Stat Laboratory Results 02/08/19 02/08/19 02/08/19 07:30 07:47 07:47 WBC 13.5 H RBC 5.66 Hgb 16.2 Hct 49.0 MCV 86.6 MCH 28.6 MCHC 33.1 RDW 14.6 RDW Differential 46.2 H Plt Count 200 MPV 10.3 Immature Gran % (Auto) 0.900 Neut % (Auto) 74.9 H Lymph % (Auto) 17.4 L [place] % (Auto) 5.2 Eos % (Auto) 1.3 Baso % (Auto) 0.3 Absolute Neuts (auto) 10.1 H Absolute Lymphs (auto) 2.34 Total Counted Not Reportable Sodium 138 Potassium 3.9 Chloride 100 Carbon Dioxide 31.0 Anion Gap 7 BUN 13 Creatinine 0.82 Estim Creat Clear Calc 106.59 Est GFR (MDRD) Af Amer 128 Est GFR (MDRD) Non-Af 106 BUN/Creatinine Ratio 15.8 Glucose 100 Calcium 9.0 Urine Color Straw Urine Clarity Clear Urine pH 7.0 Ur Specific [place] 1.005 Urine Protein Negative Urine Glucose (UA) Normal Urine Ketones Negative Urine Occult Blood Negative Urine Nitrite Negative Urine Bilirubin Negative Urine Urobilinogen Normal Ur Leukocyte Esterase Negative Urine RBC 0 SEEN Urine WBC 0 SEEN Ur Squamous Epith Cells 0 SEEN Urine Bacteria 0 SEEN Urine Mucus 0 SEEN Blood work is remarkable and elevated white count. Bladder scan revealed 236 cc of urine. Postvoid was 0. Because of his leukocytosis unknown. Since the appendix was visualized and normal and onset of pain was greater than 48 hours highly doubt appendicitis. Suspect leukocytosis is demargination secondary to pain. - Medical Decision Making With right flank pain rating anteriorly with urgency suspect ureterolithiasis. With complaint of pain with movement may represent atypical presentation of retro-celiac appendicitis. There is tenderness in the proximity McBurney's point. This may also represent right-sided diverticulitis. 2 work-up patient's presentation a CBC, BMP and UA were ordered. He was medicated with 4 mg of Zofran, 50 mg of Toradol IV push and fluids. A CT of the abdomen pelvis without contrast was ordered to evaluate the system as well as the appendix and bowel. One would anticipate inflammatory changes if appendicitis or diverticulitis with onset of pain greater than 48 hours ago and reason for unenhanced scan. Patient still complaining of pain. Since the CAT scan reveals no acute pathology other than dilated ureter there may be a nonvisualized stone. Doubt passed stone since there is no stone noted in the bladder and patient did not pass stone when he urinated after bladder scan. Will treat with NSAID and opiate analgesia and follow-up in 24 to 48 hours. ED Disposition - Plan for ED Patient: Disposition: Home or Assisted Living Diagnosis: Acute right flank pain, Right lower quadrant abdominal pain, Leukocytosis, Acute low back pain without sciatica Instructions: ED Flank Pain Uncertain Cause, ED Abdominal Pain Unkn Cause Male, ED Neck Back Pain General Prescriptions: Hydrocodone Bitart/Apap 5-325 [[place] 5MG-325MG] 1 tablet PO Q6H PRN PRN 3 Days #10 tablet PRN Reason: Pain Naproxen [Naprosyn] 500 mg PO BID #14 tablet Referrals: Sonny Price MD [Primary Care Provider] - 1-2 Days if not improving Additional Instructions: Your prescriptions were electronically transmitted to [facility] located in [place]. There is no improvement in 24 hours recommend follow-up with your primary care physician Dr. Price. If you unable to be seen by your doctor do not hesitate to return to the emergency department.
[2019-02-08] MEDS: Ketorolac 30 MG/ML Syringe 15 MG IV (07:48)
[2019-02-08] MEDS: Ondansetron 4 MG/2 ML Vial IV (07:48)
[2019-02-08] MEDS: 0.9% Normal Saline 1,000 ML 250 ML IV (07:48)
[2019-02-08 07:52] LABS: Bacteria 0 SEEN /hpf (None Seen); Mucous, Urine 0 SEEN /hpf (<or=2+); Red Blood Cells-Urine 0 SEEN /hpf (0-5); Squamous Epithelial Cells - UA 0 SEEN /hpf (0-5); White Blood Cells 0 SEEN /hpf (0-5)
[2019-02-08 07:53] LABS: Color, Urine Straw (Yellow); Glucose, Dipstick Normal (Normal); Ketone-Dipstick Negative (Negative); Leukocyte Esterase-Dipstick Negative /ul (Negative); Nitrite-Dipstick Negative (Negative); Occult Blood-Urine Negative /ul (Negative); Protein-Dipstick Negative (Negative); Specific Gravity, Urine 1.005 (1.002-1.030); Urine Bilirubin Dipstick Negative (Negative); Urine Clarity Clear (Clear); Urine Urobilinogen Normal (Normal)
[2019-02-08 07:55] LABS: Absolute Lymphocyte Count 2.34 X10^3/ul (0.83-4.51); Absolute Neutrophil Count 10.1 X10^3/uL (2.0-7.7); Basophil# 0.04 X10^3/uL; Basophil% 0.3 % (0-1); Eosinophil# 0.17 X10^3/uL; Eosinophils% 1.3 % (0-5); Hemoglobin 16.2 g/dl (13.0-16.5); Lymphocyte # 2.34 X10^3/ul (4.0); Lymphocyte % 17.4 % (19-41); Mean Corp Hgb Conc 33.1 g/gl (32-36); Mean Corpuscular Hgb 28.6 pg (27.0-32.0); Mean Corpuscular Volume 86.6 fL (80-94); Mean Platelet Vol. 10.3 fl (6.2-12.0); Monocyte% 5.2 % (0-10); Neutrophil # 10.11 X10^3/uL (2.7-7.7); Neutrophil % 74.9 % (47-70); POSITIVE COUNT NO; POSITIVE DIFFERENTIAL NO; POSITIVE MORPHOLOGY NO; Platelet Count 200 K/mm3 (150-450); RBC Distribution Width CV 14.6 % (11.6-14.6); RBC Distribution Width SD 46.2 fl (35.1-43.9); Red Blood Count 5.66 M/mm3 (4.6-6.2); White Blood Count 13.5 K/mm3 (4.4-11.0)
[2019-02-08 08:07] LABS: Anion Gap 7 (5-15); BUN 13 mg/dL (7-18); BUN/Creat Ratio 15.8 RATIO (10-20); Chloride 100 mmol/L (98-107); Creatinine, Serum 0.82 mg/dL (0.70-1.30); EST Glomerular Filtration Rate 106 mL/min (>60); Est Glom Filt Rate - Afr Amer 128 mL/min (>60); Estimated Creatinine Clearance 106.59 ml/min; Glucose 100 mg/dL (74-106); Potassium 3.9 mmol/L (3.5-5.1); Sodium Level 138 mmol/L (136-145)
[2019-02-08 09:07] VITALS: BP 154/87; PULSE 64; RESP 32
== END 2019-02-08 09:31 | disposition home or self-care (01) ==
PROVIDERS: Emergency Provider Emergency Medicine; Family Provider Family Medicine; PCP Family Medicine
DX: R10.31 Right lower quadrant pain (principal); M54.5 Low back pain; R39.15 Urgency of urination; D72.829 Elevated white blood cell count, unspecified; I10 Essential (primary) hypertension; E03.9 Hypothyroidism, unspecified; E78.5 Hyperlipidemia, unspecified; F32.9 Major depressive disorder, single episode, unspecified; E66.9 Obesity, unspecified; F17.200 Nicotine dependence, unspecified, uncomplicated; Z87.442 Personal history of urinary calculi
CPT/HCPCS: 74176; 80048; 81001; 85025; 96361; 96374; 96375; 99285; J7030; J2405

== ENCOUNTER → 2020-05-10 09:10 | Outpatient (CLI) | payer OTHER, SELFPAY | PROVIDERS: PCP Family Medicine; Referring Provider Nurse Practitioner Family; Visit Provider Nurse Practitioner Family | DX: J02.9 Acute pharyngitis, unspecified (principal); R05 Cough; R10.9 Unspecified abdominal pain; R19.7 Diarrhea, unspecified | CPT/HCPCS: 87635; C9803; U0003 ==

== ENCOUNTER 2020-07-22 12:34 | Observation (INO) | payer OTHER, SELFPAY ==
[2020-07-22] VITALS (8 sets, daily range): BP systolic 137–148; BP diastolic 73–93; PULSE 59–83; RESP 16–19; TEMP 36.1–36.7; O2SAT 96–99; BMI 37.2; BMI 42.4
--- NOTE | 2020-07-22 12:41 | EKG12_ITS ---
Test Reason : CP Blood Pressure : / mmHG Vent. Rate : 078 BPM Atrial Rate : 078 BPM P-R Int : 144 ms QRS Dur : 104 ms QT Int : 404 ms P-R-T Axes : 072 037 050 degrees QTc Int : 460 ms Normal sinus rhythm Normal ECG Confirmed by YUE REICH, JAMAR ([id number]), editor house organ RUBEN CARVAJAL ([id number]) on 07/24/2020 12:52:56 PM Referred By: GENI Confirmed By:JAMAR TURNER MD
--- NOTE | 2020-07-22 12:44 | ED.DCSUM_ITS ---
History of Present Illness Chief Complaint: Chest Pain Informant: Patient Onset: Days Context: Gradual Onset Timing: Waxes and wanes Current Severity: Mild Maximum Severity: Moderate Narrative: Patient presents secondary to chest pressure along with shortness of breath and cough. He notes symptoms started 2 days ago. Symptoms are worse with exertion and better with rest. He describes his chest pain as a pressure over the mid chest. He denies personal history of cardiac disease but does have family history. He does report having a stress test several years ago. He does have risk factors including smoking, hypertension, and high cholesterol. - Past Medical History (1) Depression Status: Chronic (2) Hyperlipidemia Status: Chronic (3) Hypertension Status: Chronic (4) Hypothyroidism Status: Chronic (5) Tobacco dependence Status: Chronic Past Medical History - Allergies and Home Meds Allergies/Adverse Reactions: Allergies No Known Allergies Allergy (Verified 07/22/20 12:43) Primary Care Physician: Sonny Price MD [Primary Care Provider] - Prior records reviewed: Yes Surgical History: tonsillectomy, - - Lipoma removal Lives: Spouse/ Significant Other Smoking Status: Current every day smoker - Family History Maternal Family History: Reports: Cancer - Breast Paternal Family History: Reports: Heart Disease - at age 45 from [place]. Review of Systems General: Denies: Chills, Fever Eyes: Denies: Visual changes - bilaterally ENT: Denies: Bilateral ear pain Cardiovascular: Reports: Chest pain Respiratory: Reports: Dyspnea, Cough. Denies: Sputum Gastrointestinal: Reports: Abdominal pain - Treatment. Denies: Nausea, Vomiting Musculoskeletal: Denies: Swelling, Extremity Pain Skin: Denies: Rash Neurological: Denies: Headache Hematologic: Denies: Easy bruising, Easy bleeding Allergy: Denies: Uticaria Physical Exam Vital Signs/Narrative: Vital Signs Temp Pulse Resp BP Pulse Ox 07/22/20 12:36 96.9 F L 83 18 145/88 H 98 Inital Vital Signs reviewed: Yes General: Well nourished, Well developed Head: Normocephalic ENT: Moist mucous membranes Neck: Supple Cardiovascular: Regular rate, Regular rhythm Respiratory: No distress, Wheezing - Scant expiratory wheeze., Chest tenderness - Anterior chest wall tenderness. No crepitus. Abdomen: Soft, Nontender Skin: Normal color Neurological: Alert, Oriented x3 Psychological: Normal affect Diagnostic/Tx/Re-eval Chest X-Ray - ED: 1 View, Read by ED Physician, Chronic Changes Impressions Chest X-Ray 07/22/20 13:10 IMPRESSION: Stable, nonacute portable x-ray examination of the chest. Electronically Signed: Luis Antonio Blevins MD (Brooks) at 13:36 EST , Service support , 07/22/20 13:10 Chest 1 View (Portable) [RAD] Stat Laboratory Results 07/22/20 07/22/20 07/22/20 12:50 12:50 12:50 WBC 10.2 RBC 4.98 Hgb 14.1 Hct 45.4 MCV 91.2 MCH 28.3 MCHC 31.1 L RDW Std Deviation 45.2 H RDW Coeff of Melva 13.6 Plt Count 211 MPV 10.2 Immature Gran % (Auto) 0.700 Neut % (Auto) 71.3 H Lymph % (Auto) 21.9 [place] % (Auto) 4.6 Eos % (Auto) 1.2 Baso % (Auto) 0.3 Absolute Neuts (auto) 7.3 Absolute Lymphs (auto) 2.23 Nucleated RBC % 0 D-Dimer Quant (PE/DVT) 0.38 Sodium 137 Potassium 3.6 Chloride 103 Carbon Dioxide 29.0 Anion Gap 5 BUN 11 Creatinine 0.88 Estim Creat Clear Calc 98.24 Est GFR (MDRD) Af Amer 118 Est GFR (MDRD) Non-Af 97 BUN/Creatinine Ratio 12.5 Glucose 173 H Lactic Acid Calcium 9.0 Troponin I < 0.015 TSH 2.43 COVID-19 (SEVERO) 07/22/20 07/22/20 12:50 12:50 WBC RBC Hgb Hct MCV MCH MCHC RDW Std Deviation RDW Coeff of Melva Plt Count MPV Immature Gran % (Auto) Neut % (Auto) Lymph % (Auto) [place] % (Auto) Eos % (Auto) Baso % (Auto) Absolute Neuts (auto) Absolute Lymphs (auto) Nucleated RBC % D-Dimer Quant (PE/DVT) Sodium Potassium Chloride Carbon Dioxide Anion Gap BUN Creatinine Estim Creat Clear Calc Est GFR (MDRD) Af Amer Est GFR (MDRD) Non-Af BUN/Creatinine Ratio Glucose Lactic Acid 2.4 H* Calcium Troponin I TSH COVID-19 ([facility]VERO) Negative - EKG Initial EKG Interpretation: Sinus Rhythm - Sinus at 78 with no acute ischemia. - Medical Decision Making Patient was given aspirin on arrival as well as albuterol MDI. On repeat evaluation chest pressure is improved. Blood work is reviewed with him. Troponin and D-dimer are both normal. Covid test returns negative. Patient does have multiple risk factors for cardiac disease and has had increasing symptoms over the past 3 days, worse with exertion. I have recommended observation overnight for cycling of enzymes with possible stress test tomorrow. Patient voices understanding and agreement. I will speak with the hospitalist. ED Disposition - Plan for ED Patient: Disposition: [facility] Care [facility] Diagnosis: Chest pain Referrals: Sonny Price MD [Primary Care Provider] -
[2020-07-22] MEDS: Aspirin 81 MG TAB.CHEW 324 MG PO (12:48)
[2020-07-22] MEDS: INHALER, ASSIST DEVICES 1 EACH SPACER INHALATION (12:49)
[2020-07-22 13:10] LABS: Absolute Lymphocyte Count 2.23 X10^3/uL (0.83-4.51); Absolute Neutrophil Count 7.3 X10^3/uL (2.0-7.7); Basophil# 0.03 X10^3/uL; Basophil% 0.3 % (0-1); Eosinophil# 0.12 X10^3/uL; Eosinophils% 1.2 % (0-5); Hematocrit 45.4 % (40-54); Hemoglobin 14.1 g/dL (13.0-16.5); Lymphocyte # 2.23 X10^3/ul (4.0); Lymphocyte % 21.9 % (19-41); Mean Corp Hgb Conc 31.1 g/dL (32-36); Mean Corpuscular Hgb 28.3 pg (27.0-32.0); Mean Corpuscular Volume 91.2 fL (80-94); Mean Platelet Vol. 10.2 fl (6.2-12.0); Monocyte# 0.47 X10^3/uL; Monocyte% 4.6 % (0-10); NRBC Flagged by Analyzer 0 % (0-5); Neutrophil # 7.28 X10^3/uL (2.7-7.7); Neutrophil % 71.3 % (47-70); Platelet Count 211 K/mm3 (150-450); RBC Distribution Width CV 13.6 % (11.6-14.6); RBC Distribution Width SD 45.2 fl (35.1-43.9); Red Blood Count 4.98 M/mm3 (4.6-6.2); White Blood Count 10.2 K/mm3 (4.4-11.0)
--- NOTE | 2020-07-22 13:10 | RAD_ITS ---
STUDY: X-RAY CHEST REASON FOR EXAM: Male, 49 years old. chest pain x 2 days TECHNIQUE: AP COMPARISON: 04/22/2016 FINDINGS: EKG leads project over the chest. The lungs are clear and expanded. There is no demonstrated pleural abnormality. Normal size heart. Normal mediastinum and brayan. Normal visualized pulmonary arteries. There is atherosclerotic calcification of the aortic arch with tortuosity. Normal visualized thoracic spine. Normal visualized ribs, clavicles, and shoulders. There is no demonstrated abnormality of the visualized soft tissue structures of the upper abdomen. RAD/Chest 1 View (Portable) IMPRESSION: Stable, nonacute portable x-ray examination of the chest. Electronically Signed: Luis Antonio Blevins MD (Brooks) at 13:36 EST , Service support ,
[2020-07-22 13:22] LABS: D-Dimer Quantitative (DVT/PE) 0.38 FEU/ug/m (0.27-0.49)
[2020-07-22 13:36] LABS: Anion Gap 5 (5-15); BUN 11 mg/dL (7-18); BUN/Creat Ratio 12.5 RATIO (10-20); Chloride 103 mmol/L (98-107); Creatinine, Serum 0.88 mg/dL (0.70-1.30); EST Glomerular Filtration Rate 97 mL/min (>60); Est Glom Filt Rate - Afr Amer 118 mL/min (>60); Estimated Creatinine Clearance 98.24 ml/min; Glucose 173 mg/dL (74-106); Potassium 3.6 mmol/L (3.5-5.1); Sodium Level 137 mmol/L (136-145); Thyroid Stim Hormone (TSH) 2.43 uIU/mL (0.358-3.74)
[2020-07-22 13:38] LABS: Lactic Acid 2.4 mmol/L (0.4-1.9)
[2020-07-22 14:36] LABS: Probe Check PASS; Specimen Processing Control PASS
--- NOTE | 2020-07-22 15:00 | PCM.HP.STD ---
Problem List (1) Chest pain Status: Acute Qualifiers: Chest pain type: unspecified Qualified Code(s): R07.9 - Chest pain, unspecified (2) Hypertension Status: Chronic (3) Hyperlipidemia Status: Chronic (4) Depression Status: Chronic (5) Obesity Status: Chronic (6) Tobacco dependence Status: Chronic (7) Hypothyroidism Status: Chronic (8) Right ureteral calculus Status: Acute History of Present Illness Date of Admission: 07/22/20 Chief Complaint: chest pain The patient is a 49 year old M who has been experiencing chest pain since Thursday. Chest pain is midsternal going through his back associated with shortness of breath. It is intermittent but exacerbated by exertion. Is never had any pain like this before. Presented to the emergency room and underwent a work-up, including COVID-19 test, that was all unremarkable. The hospital service was contacted for admission. [] Past Medical History Past Medical History (Chronic Problems): Chronic Problems Hypertension (Chronic) Hyperlipidemia (Chronic) Depression (Chronic) Obesity (Chronic) Tobacco dependence (Chronic) Hypothyroidism (Chronic) Allergies No Known Allergies Allergy (Verified 07/22/20 12:43) Home Medications: Ambulatory Orders Medication Instructions Recorded Amlodipine [Norvasc] 10 mg PO DAILY 03/15/18 Atorvastatin Calcium 20 mg PO DAILY 03/15/18 Metoprolol Succinate 50 mg PO DAILY 03/15/18 Paroxetine [Paxil] 10 mg PO DAILY 03/15/18 Levothyroxine Sodium 125 mcg PO DAILY 02/08/19 Naproxen [Naprosyn] 500 mg PO BID #14 tablet 02/08/19 Surgical History: tonsillectomy, - - Lipoma removal Psychiatric History: Depression Lives: Spouse/ Significant Other Smoking Status: Current every day smoker - *Family History Maternal History Items: Cancer - Breast Paternal History Items: Heart Disease - at age 45 from [place]. Review of Systems Constitutional: Denies: Anorexia, Fever, Night Sweats Eyes: Denies: Blurred vision, Double vision HEENT: Denies: Head Aches, Sinus Congestion, Sinus Drainage Cardiovascular: Reports: Chest Pain. Denies: Palpitations Respiratory: Reports: Shortness of breath upon exertion. Denies: Cough, Shortness of breath at rest, Sputum production Gastrointestinal: Denies: Abdominal Pain, Nausea, Vomiting Hematologic/ Lymphatic: Denies: Easy Bruising, Easy Bleeding, Hx of blood clot Comment: All review of systems were negative except as mentioned above in the history of present illness and the other review of systems. VTE Information - Inpt Only VTE Present on Admission: No VTE Mechan Device Prophylaxis: None VTE Pharm Prophylaxis ordered?: No Reason prophylaxis not ordered:: Treatment Not Indicated Patient Problems: Active and Suspected Problems Chest pain (Acute) - Physical Exam Vitals/I&O's: Vital Signs Temp Pulse Resp BP Pulse Ox 36.1 C L 79 19 H 138/81 H 97 07/22/20 12:36 07/22/20 13:34 07/22/20 13:34 07/22/20 13:34 07/22/20 13:34 Oxygen Delivery Method Room Air Weight: 111.13 kg Body Mass Index (BMI) 37.2 General: Alert, No apparent distress HEENT: Atraumatic, Normocephalic Oral: Moist Mucosa, No Gingival or Mucosal Lesions/ Ulcerations Neck: No Nodes, Thyroid Normal Size and Texture Lungs: Clear to auscultation, Normal air movement, No rhonchi, No wheeze, No rales Cardiovascular: Regular rate, Regular Rhythm, Normal S1, Normal S2, No murmurs Abdomen: Bowel Sounds Present, Soft, Non Tender, Non-Distended, No Hepato-splenomegaly Extremities: No edema, No Calf Tenderness Musculoskeletal: - - Does have some reproducible anterior chest wall tenderness no different from his chief complaint. Psych/Mental Status: Normal Affect, Appropriate Laboratory Results 07/22/20 12:50: WBC 10.2, RBC 4.98, Hgb 14.1, Hct 45.4, MCV 91.2, MCH 28.3, MCHC 31.1 L, RDW Std Deviation 45.2 H, RDW Coeff of Melva 13.6, Plt Count 211, MPV 10.2, Immature Gran % (Auto) 0.700, Neut % (Auto) 71.3 H, Lymph % (Auto) 21.9, [place] % (Auto) 4.6, Eos % (Auto) 1.2, Baso % (Auto) 0.3, Absolute Neuts (auto) 7.3, Absolute Lymphs (auto) 2.23, Nucleated RBC % 0 07/22/20 12:50: Sodium 137, Potassium 3.6, Chloride 103, Carbon Dioxide 29.0, Anion Gap 5, BUN 11, Creatinine 0.88, Estim Creat Clear Calc 98.24, Est GFR (MDRD) Af Amer 118, Est GFR (MDRD) Non-Af 97, BUN/Creatinine Ratio 12.5, Glucose 173 H, Calcium 9.0, Troponin I < 0.015, TSH 2.43 07/22/20 12:50: D-Dimer Quant (PE/DVT) 0.38 07/22/20 12:50: Lactic Acid 2.4 H* 07/22/20 12:50: COVID-19 ([facility]) Negative Chest x-ray personally reviewed and showed normal airways without pulmonary infiltrate nor pulmonary vascular congestion. EKG personally reviewed and showed normal sinus rhythm with no acute changes. Assessment/Plan All Active Problems Chest pain (Acute) Right ureteral calculus (Acute) 1. Chest pain: KATHY score of 2, Evelin score of 75. Patient received aspirin in the emergency room. No evidence of any myocardial infarction at this time. Plan is for a treadmill stress echocardiogram on the . Patient states that he would be able to walk at a brisk pace on a treadmill. I told him based on the results of that he would be discharged, if negative, or cardiology will be consulted, if positive. 2. Hypertension: Continue with his home medications 3. Hyperlipidemia: Continue with statin. Check fasting lipid panel in the morning. 4. VTE prophylaxis: Low risk as he is observation status. OBSV E&M: 74713 Initial observation care L2
--- NOTE | 2020-07-22 15:32 | EKG12_ITS ---
Test Reason : CP ADMISSION Blood Pressure : / mmHG Vent. Rate : 065 BPM Atrial Rate : 065 BPM P-R Int : 146 ms QRS Dur : 108 ms QT Int : 432 ms P-R-T Axes : 066 039 031 degrees QTc Int : 449 ms Normal sinus rhythm Normal ECG Confirmed by YUE REICH, JAMAR ([id number]), editor school photograph BRANDON BENJAMIN ([id number]) on 07/25/2020 1:59:28 PM Referred By: YAJAIRA Confirmed By:JAMAR TURNER MD
[2020-07-22] MEDS: Acetaminophen 325 MG Tablet 650 MG PO (16:54)
[2020-07-22 17:05] LABS: Reflex Lactate? Y
[2020-07-22 17:59] LABS: Lactic Acid 0.9 mmol/L (0.4-1.9)
[2020-07-23 03:00] VITALS: PULSE 62
[2020-07-23 04:45] VITALS: BP 118/67; PULSE 65; RESP 16; TEMP 36.9; O2SAT 95
[2020-07-23] MEDS: Aspirin 81 MG TAB.CHEW PO (06:00)
[2020-07-23] MEDS: Levothyroxine 125 MCG Tablet PO (06:00)
[2020-07-23] MEDS: 0.9% Saline Lock 10 ML Syringe IV (06:01)
[2020-07-23 06:42] LABS: Cholesterol 190 mg/dL (200); High Density Lipoprotein 39 mg/dL; Triglycerides 259 mg/dL; Very Low Density Lipoprotein 52 mg/dL (5-40)
[2020-07-23 07:00] VITALS: PULSE 64
--- NOTE | 2020-07-23 11:46 | STRESSREP ---
Stress Test Report Exercise myocardial perfusion stress test. 49-year-old man with a history of chest pain. Stress protocol: Resting EKG demonstrates normal sinus rhythm with a rate of 62 bpm normal intervals are noted resting blood pressure is 150/90 mmHg. The patient exercised according to regular Ian protocol for 5 minutes and 15 seconds. The maximum heart rate attained was 136 bpm which was 79% of max impacted heart rate. The maximum workload was 7 metabolic equivalents. At rest no ST or T wave changes were noted to suggest ischemia. At peak exercise upsloping ST changes were noted with no meet the criteria for ischemia. No clinical angina was noted the test was terminated due to dyspnea. The peak blood pressure was 190/80 mmHg. Myocardial perfusion protocol. 14.9 mCi of technetium 99m sestamibi was injected at rest. The patient exercised for 5 minutes and 15 seconds. At peak exercise 44.8 mCi of technetium 99m sestamibi was injected stress images were obtained stress and rest images were reconstructed and compared in the short axis vertical long and horizontal long axis. Gated images were also obtained per Perfusion SPECT analysis: Review of the stress images demonstrate normal uptake of tracer noted in all areas of the myocardium the resting images similar demonstrate normal uptake of tracer noted in all areas of the myocardium. No evidence of reversibility was noted to suggest ischemia no previous infarct is noted. Gated SPECT analysis: The gated ejection fraction was noted to be 65%. Conclusion: Normal exercise myocardial perfusion stress test at a moderate workload. Preserved ejection fraction.
--- NOTE | 2020-07-23 11:54 | DCINST_ITS ---
- Discharge Diagnoses Current Active Problems: Current Active and Chronic Problems Chest pain (Acute) Hypertension (Chronic) Hyperlipidemia (Chronic) Depression (Chronic) Obesity (Chronic) Tobacco dependence (Chronic) Hypothyroidism (Chronic) Right ureteral calculus (Acute) You will use the following diet at home:: No restrictions Your food should be the consistency of: Regular Your liquids should be the consistency of: Regular/Thin Discharge Activity: Return to Normal Activity Weight Bearing Status: Full weight bearing Allergies/Adverse Reactions: Allergies No Known Allergies Allergy (Verified 07/22/20 12:43) Medications to take at Discharge Amlodipine [Norvasc] 10 mg PO DAILY 03/15/18 Atorvastatin Calcium 20 mg PO DAILY 03/15/18 Metoprolol Succinate 50 mg PO DAILY 03/15/18 Paroxetine [Paxil] 10 mg PO DAILY 03/15/18 Levothyroxine Sodium 125 mcg PO DAILY 02/08/19 Naproxen [Naprosyn] 500 mg PO BID #14 tablet 02/08/19 Primary Care Physician: Sonny Price MD [Primary Care Provider] - Please follow up with your Primary Care Physician in: in 2-3 weeks Test Results: Test results from this visit will be discussed in further detail at your follow- up appointment, if applicable.
--- NOTE | 2020-07-23 12:31 | PCM.DC.SUM ---
Discharge Date and Diagnosis - Problem List Patient Problems: Active and Suspected Problems Chest pain (Acute) Right ureteral calculus (Acute) Date of Admission: 07/22/20 Date of Discharge: 07/23/20 - Primary Discharge Diagnosis Acute Problems: Active Problems #1 musculoskeletal chest pain #2 hypertension #3 increased lactic acid-etiology unclear #4 morbid obesity #5 hypothyroidism - Secondary Discharge Diagnosis Chronic Problems: Chronic Problems Hypertension (Chronic) Hyperlipidemia (Chronic) Depression (Chronic) Obesity (Chronic) Tobacco dependence (Chronic) Hypothyroidism (Chronic) Hospital Course and Treatment Imaging Results: 07/23/20 07:37 Nuclear Stress Test - Treadmil [NM] Routine Operations: None Procedures: Nuclear stress test Summary of Care Provided: The patient is a 49 year old M seen in the emergency room at [facility] with a chief complaint of precordial chest discomfort which was relieved at rest. Work-up in the emergency room included a chest x-ray which was unremarkable, troponin which was negative, and a lactic acid which was elevated at 2.4. Patient's glucose was elevated at 173. Patient's COVID-19 test was negative. Patient's EKG showed normal sinus rhythm with no evidence of acute ischemic changes. Patient was placed in observation status on PCU, serial cardiac enzymes were obtained and these were all normal. Patient underwent an exercise nuclear stress test on 07/23/2020 which was negative for reversible ischemic changes. On 07/23/2020, patient was seen and examined: On examination he appeared in good health and spirits. Vital signs as documented. Skin warm and dry and without overt rashes. Neck without JVD, neck was supple, trachea midline, thyroid was normal. Lungs clear bilaterally, normal air movement was noted. Heart exam notable for regular rhythm, normal sounds and absence of murmurs, rubs or gallops. Abdomen unremarkable and without evidence of organomegaly, masses, or abdominal aortic enlargement. Bowel sounds are present, abdomen is not distended. Patient is morbidly obese. Extremities nonedematous, no cyanosis was noted, no clubbing was noted. Neuro: Cranial nerves II through XII are grossly intact, no focal motor deficits were noted, sensation to light touch and pinprick intact, motor exam 5/5 throughout. Psych: Patient is alert and oriented x3, he does not appear anxious or depressed, he does not appear agitated. Patient was discharged home in stable condition on 07/23/2020. Patient Problems: Active and Suspected Problems Chest pain (Acute) Right ureteral calculus (Acute) - Physical Exam Vitals/I&O's: Vital Signs Temp Pulse Resp BP Pulse Ox 98.4 F 64 16 118/67 95 07/23/20 04:45 07/23/20 07:00 07/23/20 04:45 07/23/20 04:45 07/23/20 04:45 Oxygen Delivery Method Room Air Weight: 126.5 kg Body Mass Index (BMI) 42.4 Intake and Output for Last 24 Hours 07/21/20 07/22/20 07/23/20 23:59 23:59 23:59 Intake Total Output Total 0 / 0 Balance Laboratory Results 07/22/20 12:50: WBC 10.2, RBC 4.98, Hgb 14.1, Hct 45.4, MCV 91.2, MCH 28.3, MCHC 31.1 L, RDW Std Deviation 45.2 H, RDW Coeff of Melva 13.6, Plt Count 211, MPV 10.2, Immature Gran % (Auto) 0.700, Neut % (Auto) 71.3 H, Lymph % (Auto) 21.9, [place] % (Auto) 4.6, Eos % (Auto) 1.2, Baso % (Auto) 0.3, Absolute Neuts (auto) 7.3, Absolute Lymphs (auto) 2.23, Nucleated RBC % 0 07/22/20 12:50: Sodium 137, Potassium 3.6, Chloride 103, Carbon Dioxide 29.0, Anion Gap 5, BUN 11, Creatinine 0.88, Estim Creat Clear Calc 98.24, Est GFR (MDRD) Af Amer 118, Est GFR (MDRD) Non-Af 97, BUN/Creatinine Ratio 12.5, Glucose 173 H, Calcium 9.0, Troponin I < 0.015, TSH 2.43 07/22/20 12:50: D-Dimer Quant (PE/DVT) 0.38 07/22/20 12:50: Lactic Acid 2.4 H* 07/22/20 12:50: COVID-19 ([facility]) Negative 07/22/20 17:00: Troponin I < 0.015 07/22/20 17:23: Lactic Acid 0.9 07/22/20 19:40: Troponin I < 0.015 07/23/20 05:13: Triglycerides 259 H, Cholesterol 190, LDL Cholesterol 99, VLDL Cholesterol 52 H, HDL Cholesterol 39 L Current Medications Acetaminophen (Acetaminophen 325 Mg Tablet) 650 mg PO Q6H PRN PRN PRN Reason: Pain Score 1-10/Temp > 100.7 F Last Admin: 07/22/20 16:54 Dose: 650 mg Documented by: Amlodipine Besylate (Amlodipine 10 Mg Tablet) 10 mg PO DAILY [facility] Aspirin (Aspirin 81 Mg Tab.Chew) 81 mg PO DAILY@0800 [facility] Last Admin: 07/23/20 06:00 Dose: 81 mg Documented by: Atorvastatin Calcium (Atorvastatin Calcium 20 Mg Tablet) 20 mg PO QHS [facility] Last Admin: 07/22/20 22:47 Dose: Not Given Documented by: Sodium Chloride () 250 mls @ 15 mls/hr IV .[id number] PRN PRN Reason: Saline Flush Sodium Chloride () 250 mls @ 15 mls/hr IV .[id number] PRN PRN Reason: Additional IVPB Infusion Levothyroxine Sodium (Levothyroxine 125 Mcg Tablet) 125 mcg PO DAILY@0600 [facility] Last Admin: 07/23/20 06:00 Dose: 125 mcg Documented by: Metoprolol Succinate (Metoprolol(Xl)Succ 50 Mg Tablet) 50 mg PO DAILY [facility] Nitroglycerin (Nitroglycerin (Inpatient Use) 0.4 Mg Tab.Subl) 0.4 mg SUBLINGUAL Q5M PRN PRN Reason: CARDIAC/CHEST PAIN Ondansetron HCl (Ondansetron 4 Mg/2 Ml Vial) 4 mg IV Q8H PRN PRN PRN Reason: NAUSEA/VOMITING Oxycodone HCl (Oxycodone 5 Mg Tablet) 5 mg PO Q4H PRN PRN PRN Reason: Pain Score 4-5 Oxycodone HCl (Oxycodone 5 Mg Tablet) 10 mg PO Q4H PRN PRN PRN Reason: Pain Score 6-10 Paroxetine HCl (Paroxetine 10 Mg Tablet) 10 mg PO DAILY [facility] Sodium Chloride (0.9% Saline Lock 10 Ml Syringe) 10 - 40 ml IV UD PRN PRN Reason: SALINE FLUSH Last Admin: 07/23/20 06:01 Dose: 10 ml Documented by: Discharge Activity: Return to Normal Activity Weight Bearing Status: Full weight bearing Home Medications: Medications to take at Discharge Amlodipine [Norvasc] 10 mg PO DAILY 03/15/18 Atorvastatin Calcium 20 mg PO DAILY 03/15/18 Metoprolol Succinate 50 mg PO DAILY 03/15/18 Paroxetine [Paxil] 10 mg PO DAILY 03/15/18 Levothyroxine Sodium 125 mcg PO DAILY 02/08/19 Naproxen [Naprosyn] 500 mg PO BID #14 tablet 02/08/19 Primary Care Physician: Sonny Price MD [Primary Care Provider] - Please follow up with your Primary Care Physician in: in 2-3 weeks Disposition: Home Minutes spent on discharge:: 30 Patient Condition:: Stable Medical Necessity - Tobacco Use Smoking Status: Current every day smoker Tobacco Use: Cigarettes Meaningful Use Info Meaningful Use Diagnoses (Choose all that apply): None applicable OBSV E&M: 36829 Observation care discharge
[2020-07-23 12:45] VITALS: BP 145/97; PULSE 69; RESP 18; TEMP 36.7; O2SAT 96
[2020-07-23 12:46] VITALS: BP 145/97; PULSE 69
[2020-07-23] MEDS: Metoprolol(XL)Succ 50 MG Tablet PO (12:46)
[2020-07-23] MEDS: amLODIPine 10 MG Tablet PO (12:46)
[2020-07-23] MEDS: PARoxetine 10 MG Tablet PO (12:46)
== END 2020-07-23 11:54 | disposition home or self-care (01) ==
LOC: ED 14:47 → PCU 14:59
PROVIDERS: Emergency Provider Emergency Medicine; PCP Family Medicine; Visit Provider Internal Medicine
DX: R07.89 Other chest pain (principal); N20.1 Calculus of ureter; I10 Essential (primary) hypertension; Z23 Encounter for immunization; E66.01 Morbid (severe) obesity due to excess calories; E03.9 Hypothyroidism, unspecified; Z79.899 Other long term (current) drug therapy; R06.02 Shortness of breath; E78.5 Hyperlipidemia, unspecified; F32.9 Major depressive disorder, single episode, unspecified; F17.210 Nicotine dependence, cigarettes, uncomplicated
CPT/HCPCS: 36415; 71045; 78452; 80048; 80061; 83605; 84443; 84484; 85025; 85379; 87040; 87635; 93005; 93017; 99218; 99285; 99406; A9500; 90686; A4216; G0378; U0002

== ENCOUNTER 2020-12-17 10:36 | Emergency (ER) | payer OTHER, SELFPAY ==
[2020-07-22 15:33] VITALS: BMI 42.4
[2020-12-17 10:36] VITALS: BP 142/93; PULSE 118; RESP 25; TEMP 37.1; O2SAT 95; BMI 40.3
--- NOTE | 2020-12-17 11:07 | RAD_ITS ---
STUDY: X-RAY CHEST REASON FOR EXAM: Male, 50 years old. Sob TECHNIQUE: Single AP portable view of the chest. COMPARISON: Comparison is made with prior study dated 07/22/2020. FINDINGS: EKG electrodes are seen. The lungs are clear and expanded. There is no demonstrated pleural abnormality. Normal size heart. Normal mediastinum and brayan. Normal visualized pulmonary arteries. There is atherosclerotic calcification of the aortic arch with tortuosity. Normal visualized thoracic spine. Normal visualized ribs, clavicles, and shoulders. There is no demonstrated abnormality of the visualized soft tissue structures of the upper abdomen. RAD/Chest 1 View (Portable) IMPRESSION: No acute abnormalities seen. Electronically Signed: Gabriel Johnson MD at 12:07 EDT , Service support ,
--- NOTE | 2020-12-17 11:08 | EKG12_ITS ---
Test Reason : CP Blood Pressure : / mmHG Vent. Rate : 109 BPM Atrial Rate : 109 BPM P-R Int : 132 ms QRS Dur : 096 ms QT Int : 342 ms P-R-T Axes : 062 015 -12 degrees QTc Int : 460 ms Sinus tachycardia Incomplete right bundle branch block Nonspecific ST and T wave abnormality Abnormal ECG Confirmed by YUE REICH, JAMAR ([id number]), continuity editor RUBEN CARVAJAL ([id number]) on 12/19/2020 11:17:31 AM Referred By: YOAV/JAMEY Confirmed By:JAMAR TURNER MD
--- NOTE | 2020-12-17 11:09 | CT_ITS ---
STUDY: CT ABDOMEN AND PELVIS WITHOUT CONTRAST REASON FOR EXAM: Male, 50 years old. Abd pain RADIATION DOSAGE (If Supplied By Facility): CTDIvol = ( 22.96 ) mGy, DLP = ( 1153.01 ) mGycm TECHNIQUE: Transaxial images were obtained from the dome of the diaphragm to the symphysis pubis without oral contrast, and without intravenous contrast. Sagittal and coronal images were reconstructed. Individualized dose optimization techniques were used for this CT. COMPARISON: Comparison is made with prior study dated 02/08/2019. FINDINGS: The visualized lung bases are unremarkable. The visualized portions of the heart are within normal limits. There is decreased attenuation of the liver consistent with steatosis. Normal gallbladder and extrahepatic biliary system. Normal spleen. Normal pancreas. There is symmetric enlargement of the adrenal glands suggesting adrenal hyperplasia. Normal right kidney. Normal left kidney. Normal visualized stomach. Normal small intestine. There are scattered colonic diverticula consistent with diverticulosis. The appendix is visualized and appears normal. Normal abdominal aorta. Normal inferior vena cava. There is borderline retroperitoneal lymphadenopathy with enlarged nodes no greater than 10mm in the short axis diameter. The bladder is empty at this time. There are prostatic calcifications. There is a small umbilical hernia containing fat. There are mild degenerative changes of the visualized lumbar spine. CT/Abdomen/Pelvis without Cont IMPRESSION: Fatty infiltration of the liver. Electronically Signed: Gabriel Johnson MD at 12:15 EDT , Service support ,
--- NOTE | 2020-12-17 11:10 | ED.VIS.GEN ---
History of Present Illness Chief Complaint: Shortness of Breath Narrative: Patient presents with nausea decreased p.o. intake, he has abdominal pain which is diffuse, the chief complaints of shortness of breath, he has some shortness of breath but mostly exertional. This is been ongoing for a few days. He denies any fever or chills. He has decreased urinary output but no dysuria. No diarrhea or constipation. No back pain or tearing sensation. He has some discomfort in his chest. He was exposed to Covid. Past medical history: Hypertension Medications: Reviewed Social history: Noncontributory Review of systems: All systems negative except as indicated General: Denies: Fever Eyes: Denies: Visual changes - bilaterally ENT: Denies: Rhinorrhea, Sore throat Cardiovascular: Some chest pain Respiratory: Some subjective dyspnea Gastrointestinal: Diffuse abdominal pain Genitourinary: Denies: Dysuria Musculoskeletal: Generalized myalgias Skin: Denies: Rash Neurological: Denies: Headache, no focal weakness Psych: Reports: negative Hematologic: Denies: Easy bruising, Easy bleeding Physical exam General: Patient does not appear in significant distress he appears relatively comfortable in bed Head: Normocephalic, Atraumatic Eyes: Conjunctiva not pale ENT: Slightly dry mucous membranes Neck: Supple, Nontender, No lymphadenopathy Cardiovascular: Regular rate, Regular rhythm Respiratory: No distress, CTA bilaterally Abdomen: Soft, slight diffuse tenderness throughout Back: Nontender, Normal Inspection. Negative for: CVA tenderness Extremities: Nontender, No edema Skin: Normal color, No rash Neurological: Alert, Normal Strength, Normal Sensation Psychological: Normal affect Past Medical History - Allergies and Home Meds Allergies/Adverse Reactions: Allergies No Known Allergies Allergy (Verified 12/17/20 10:36) Primary Care Physician: Sonny Price MD [Primary Care Provider] - Surgical History: tonsillectomy, - - Lipoma removal Smoking Status: Current every day smoker - Family History Maternal Family History: Reports: Cancer - Breast Paternal Family History: Reports: Heart Disease - at age 45 from [place]. Physical Exam Vital Signs/Narrative: Vital Signs Temp Pulse Resp BP Pulse Ox 12/17/20 10:36 98.7 F 118 H 25 H 142/93 H 95 Diagnostic/Tx/Re-eval Chest X-Ray - ED: 1 View, Read by ED Physician, Read by Radiologist, Normal, Heart - Medical Decision Making Patient has an unremarkable ED work-up. Patient appears well, he tells me he improved since being in the ED. I will discharge him he is Covid negative however he has exposure I told him there is a chance of a false negative and he should quarantine himself otherwise if he feels symptomatic over the next few days he should get a repeat test. We will discharge him in stable condition. ED Disposition - Plan for ED Patient: Disposition: Home or Assisted Living Diagnosis: Weakness Instructions: ED Weakness (Uncertain Cause) Referrals: Sonny Price MD [Primary Care Provider] - 3-5 Days
[2020-12-17] MEDS: Ondansetron 4 MG/2 ML Vial IV (11:27)
[2020-12-17] MEDS: Morphine 2 MG/ML Syringe IV (11:27)
[2020-12-17 11:28] VITALS: O2SAT 96
[2020-12-17 11:48] LABS: Absolute Lymphocyte Count 0.73 X10^3/uL (0.83-4.51); Absolute Neutrophil Count 5.7 X10^3/uL (2.0-7.7); Basophil# 0.03 X10^3/uL; Basophil% 0.4 % (0-1); Eosinophil# 0.02 X10^3/uL; Eosinophils% 0.3 % (0-5); Hematocrit 46.9 % (40-54); Lymphocyte # 0.73 X10^3/ul (4.0); Lymphocyte % 10.5 % (19-41); Mean Corpuscular Hgb 28.4 pg (27.0-32.0); Mean Corpuscular Volume 88.7 fL (80-94); Mean Platelet Vol. 10.8 fl (6.2-12.0); Monocyte# 0.44 X10^3/uL; Monocyte% 6.3 % (0-10); NRBC Flagged by Analyzer 0 % (0-5); Neutrophil # 5.73 X10^3/uL (2.7-7.7); Neutrophil % 82.1 % (47-70); Platelet Count 169 K/mm3 (150-450); RBC Distribution Width CV 14.3 % (11.6-14.6); RBC Distribution Width SD 46.4 fl (35.1-43.9); Red Blood Count 5.29 M/mm3 (4.6-6.2)
[2020-12-17 12:03] LABS: ALB/GLOB Ratio 0.7 RATIO (0.9-2.4); AST(SGOT) 19 U/L (15-37); Alanine Aminotransfer ALT/SGPT 41 U/L (16-61); Albumin, Serum 3.3 g/dL (3.2-5.0); Alkaline Phosphatase 104 U/L (45-117); Anion Gap 8 (5-15); BUN 10 mg/dL (7-18); BUN/Creat Ratio 7.6 RATIO (10-20); Chloride 102 mmol/L (98-107); Creatinine, Serum 1.32 mg/dL (0.70-1.30); EST Glomerular Filtration Rate 61 mL/min (>60); Est Glom Filt Rate - Afr Amer 74 mL/min (>60); Estimated Creatinine Clearance 64.77 ml/min; Globulin 4.6 g/dL (2.2-4.2); Glucose 225 mg/dL (74-106); Lipase 98 U/L (73-393); Potassium 3.1 mmol/L (3.5-5.1); Protein, Total 7.9 g/dL (6.4-8.2); Sodium Level 134 mmol/L (136-145)
[2020-12-17 13:00] VITALS: BP 125/78; PULSE 92; RESP 18; O2SAT 94
[2020-12-17 13:13] LABS: Mucous, Urine 0 SEEN /hpf (<or=2+); Red Blood Cells-Urine 0 SEEN /hpf (0-5)
[2020-12-17 13:15] LABS: Color, Urine Yellow (Yellow); Glucose, Dipstick Normal (Normal); Ketone-Dipstick 5 mg/dl (Negative); Leukocyte Esterase-Dipstick 25 /ul (Negative); Nitrite-Dipstick Negative (Negative); Occult Blood-Urine 10 /ul (Negative); Protein-Dipstick 100 mg/dl (Negative); Urine Clarity Cloudy (Clear); Urine Urobilinogen 1 mg/dl (Normal)
[2020-12-17 13:27] LABS: Urine Bilirubin Dipstick 1 mg/dL (Negative)
[2020-12-17 13:31] LABS: Fine Granular Cast- Urine 10-25 SEEN /lpf (0-5)
[2020-12-17 13:32] LABS: Hyaline Cast 0-5 SEEN /lpf (0-5); Squamous Epithelial Cells - UA 10-25 SEEN /hpf (0-5)
[2020-12-17 13:33] LABS: Bacteria 3+ /hpf (None Seen); White Blood Cells 0-5 SEEN /hpf (0-5)
[2020-12-17 14:25] VITALS: BP 131/77; PULSE 83; RESP 22; O2SAT 94
== END 2020-12-17 14:27 | disposition home or self-care (01) ==
PROVIDERS: Emergency Provider Emergency Medicine; PCP Family Medicine
DX: R53.1 Weakness (principal); Z20.822 Contact with and (suspected) exposure to COVID-19; R06.02 Shortness of breath; R11.0 Nausea; R10.9 Unspecified abdominal pain; I10 Essential (primary) hypertension; F17.200 Nicotine dependence, unspecified, uncomplicated; Z79.899 Other long term (current) drug therapy
CPT/HCPCS: 71045; 74176; 80053; 81001; 83690; 84484; 85025; 87426; 93005; 96374; 96375; 99283; A4216; J2405

== ENCOUNTER 2020-12-19 11:38 | Inpatient (IN) | payer OTHER, SELFPAY ==
[2020-12-19] VITALS (12 sets, daily range): BP systolic 130–171; BP diastolic 68–86; PULSE 88–140; RESP 18–24; TEMP 36.6–37.8; O2SAT 93–99; BMI 40.3; BMI 41.5; BMI 41.6
--- NOTE | 2020-12-19 12:19 | EKG12_ITS ---
Test Reason : FEVER Blood Pressure : / mmHG Vent. Rate : 114 BPM Atrial Rate : 114 BPM P-R Int : 128 ms QRS Dur : 092 ms QT Int : 320 ms P-R-T Axes : 063 -11 031 degrees QTc Int : 441 ms Sinus tachycardia Nonspecific ST and T wave abnormality Poor R wave progression Abnormal ECG Confirmed by YUE REICH, JAMAR ([id number]), videotape editor RUBEN CARVAJAL ([id number]) on 12/21/2020 11:31:31 AM Referred By: Confirmed By:JAMAR TURNER MD
--- NOTE | 2020-12-19 12:21 | ED.DCSUM_ITS ---
History of Present Illness Chief Complaint: Fever Informant: Patient, Family Narrative: 50-year-old male presents the emergency department with fever. He tells me that on Thursday he developed diarrhea fever cough shortness of breath chest pain headache body aches sore throat. Cough is nonproductive. He states that the diarrhea is copious brown to green. He states he has occasionally seen some bright red blood in the stool. He denies any known bad food or bad water. No recent antibiotics. He states he had Covid testing which was negative. He had a CT of his abdomen pelvis that was negative chest x-ray that was negative. States he is not improving. - Past Medical History (1) Depression Status: Chronic (2) Hyperlipidemia Status: Chronic (3) Hypertension Status: Chronic (4) Hypothyroidism Status: Chronic (5) Obesity Status: Chronic (6) Tobacco dependence Status: Chronic Past Medical History - Allergies and Home Meds Allergies/Adverse Reactions: Allergies No Known Allergies Allergy (Verified 12/19/20 11:40) Primary Care Physician: Sonny Price MD [Primary Care Provider] - Surgical History: tonsillectomy, - - Lipoma removal Lives: Spouse/ Significant Other Smoking Status: Current every day smoker Drugs: None - Family History Maternal Family History: Reports: Cancer - Breast Paternal Family History: Reports: Heart Disease - at age 45 from [place]. Review of Systems General: Reports: Chills, Fever, Malaise. Denies: Sweats Eyes: Denies: Visual changes - bilaterally, Diplopia ENT: Reports: Sore throat. Denies: Rhinorrhea Cardiovascular: Reports: Chest pain. Denies: Palpitations Respiratory: Reports: Dyspnea, Cough, Dyspnea on exertion Gastrointestinal: Reports: Abdominal pain, Nausea, Vomiting, Diarrhea. Denies: Melena, Hematochezia Genitourinary: Denies: Dysuria, Hematuria, Frequency Musculoskeletal: Reports: Myalgias, Arthralgias, Back pain. Denies: Extremity Pain Skin: Denies: Rash, Wounds Neurological: Reports: Headache. Denies: Weakness, Numbness Physical Exam Vital Signs/Narrative: Vital Signs Temp Pulse Resp BP Pulse Ox 12/19/20 11:40 100.1 F H 127 H 22 H 130/68 H 93 Inital Vital Signs reviewed: Yes General: Well nourished, Well developed, Obese, No Acute Distress Head: Normocephalic, Atraumatic Eyes: Perrl, EOMI ENT: Moist mucous membranes, No rhinorrhea Neck: Supple, Nontender Cardiovascular: Regular rate, No murmurs, Tachycardia Respiratory: No distress, CTA bilaterally, Chest nontender Abdomen: Soft, Nontender, Nondistended, Normal bowel sounds Back: Nontender, Normal Inspection Extremities: Nontender, No edema Skin: Normal color, No rash Neurological: Alert, Oriented x3, Cranial nerves II-XII grossly intact, Normal Strength, Normal Sensation Psychological: Normal affect, Normal Mood Diagnostic/Tx/Re-eval Clinical Impression(s) from Imaging Studies Chest X-Ray 12/19/20 13:15 IMPRESSION: No focal patchy airspace opacities or effusions Mild congestion Electronically Signed: Josafat Stevens DO at 13:27 EDT Tel , Service support , Laboratory Last Values WBC 10.0 K/mm3 (4.4-11.0) 12/19/20 12:10 RBC 5.24 M/mm3 (4.6-6.2) 12/19/20 12:10 Hgb 14.8 g/dL (13.0-16.5) 12/19/20 12:10 Hct 45.0 % (40-54) 12/19/20 12:10 MCV 85.9 fL (80-94) 12/19/20 12:10 MCH 28.2 pg (27.0-32.0) 12/19/20 12:10 MCHC 32.9 g/dL (32-36) 12/19/20 12:10 RDW Std Deviation 45.6 fl (35.1-43.9) H 12/19/20 12:10 RDW Coeff of Melva 14.4 % (11.6-14.6) 12/19/20 12:10 Plt Count 217 K/mm3 (150-450) 12/19/20 12:10 MPV 11.2 fl (6.2-12.0) 12/19/20 12:10 Immature Gran % (Auto) 0.600 % (0.0-0.9) 12/19/20 12:10 Neut % (Auto) 73.3 % (47-70) H 12/19/20 12:10 Lymph % (Auto) 13.2 % (19-41) L 12/19/20 12:10 [place] % (Auto) 12.1 % (0-10) H 12/19/20 12:10 Eos % (Auto) 0.1 % (0-5) 12/19/20 12:10 Baso % (Auto) 0.7 % (0-1) 12/19/20 12:10 Absolute Neuts (auto) 7.3 X10^3/uL (2.0-7.7) 12/19/20 12:10 Absolute Lymphs (auto) 1.32 X10^3/uL (0.83-4.51) 12/19/20 12:10 Nucleated RBC % 0 % (0-5) 12/19/20 12:10 PT 13.0 SECONDS (11.7-14.9) 12/19/20 12:10 INR 1.0 12/19/20 12:10 APTT 29.2 Seconds (24.1-36.2) 12/19/20 12:10 Sodium 133 mmol/L (136-145) L 12/19/20 12:10 Potassium 3.4 mmol/L (3.5-5.1) L 12/19/20 12:10 Chloride 102 mmol/L (98-107) 12/19/20 12:10 Carbon Dioxide 24.0 mmol/L (21.0-32.0) 12/19/20 12:10 Anion Gap 7 (5-15) 12/19/20 12:10 BUN 13 mg/dL (7-18) 12/19/20 12:10 Creatinine 1.29 mg/dL (0.70-1.30) 12/19/20 12:10 Estim Creat Clear Calc 66.28 ml/min 12/19/20 12:10 Est GFR (MDRD) Af Amer 76 mL/min (>60) 12/19/20 12:10 Est GFR (MDRD) Non-Af 63 mL/min (>60) 12/19/20 12:10 BUN/Creatinine Ratio 10.1 RATIO (10-20) 12/19/20 12:10 Glucose 114 mg/dL (74-106) H 12/19/20 12:10 Lactic Acid 1.4 mmol/L (0.4-1.9) 12/19/20 12:10 Calcium 8.5 mg/dL (8.5-10.1) 12/19/20 12:10 Total Bilirubin 2.40 mg/dL (0.20-1.00) H 12/19/20 12:10 AST 165 U/L (15-37) H 12/19/20 12:10 ALT 166 U/L (16-61) H 12/19/20 12:10 Alkaline Phosphatase 185 U/L (45-117) H 12/19/20 12:10 Troponin I < 0.015 ng/mL (<0.045) 12/19/20 12:10 Total Protein 7.0 g/dL (6.4-8.2) 12/19/20 12:10 Albumin 3.2 g/dL (3.2-5.0) 12/19/20 12:10 Globulin 3.8 g/dL (2.2-4.2) 12/19/20 12:10 Albumin/Globulin Ratio 0.8 RATIO (0.9-2.4) L 12/19/20 12:10 Urine Color Porsha (Yellow) 12/19/20 12:40 Urine Clarity Sl. Cloudy (Clear) 12/19/20 12:40 Urine pH 6.5 (5.0 - 8.0) 12/19/20 12:40 Ur Specific [place] 1.015 (1.002-1.030) 12/19/20 12:40 Urine Protein 30 mg/dl (Negative) H 12/19/20 12:40 Urine Glucose (UA) Normal mg/dl (Normal) 12/19/20 12:40 Urine Ketones 5 mg/dl (Negative) H 12/19/20 12:40 Urine Occult Blood 10 /ul (Negative) H 12/19/20 12:40 Urine Nitrite Positive (Negative) H 12/19/20 12:40 Urine Bilirubin 3 mg/dL (Negative) H 12/19/20 12:40 Urine Urobilinogen 1 mg/dl (Normal) H 12/19/20 12:40 Ur Leukocyte Esterase 25 /ul (Negative) H 12/19/20 12:40 Urine RBC 0 SEEN /hpf (0-5) 12/19/20 12:40 Urine WBC 0-5 SEEN /hpf (0-5) 12/19/20 12:40 Ur Squamous Epith Cells 5-10 SEEN /hpf (0-5) 12/19/20 12:40 Urine Bacteria RARE /hpf (None Seen) 12/19/20 12:40 Hyaline Casts 0-5 SEEN /lpf (0-5) 12/19/20 12:40 WBC Casts 0-5 SEEN /lpf (None Seen) 12/19/20 12:40 Urine Mucus 0 SEEN /hpf (<or=2+) 12/19/20 12:40 - EKG Initial EKG Interpretation: Sinus Tachycardia - EKG demonstrates a sinus tachycardia at a rate of 114. No concerning features of ACS or ectopy. - Medical Decision Making Patient received IV fluids. White count 10 normal lactic acid. Of note his bilirubin is now elevated and his transaminases are elevated from what they were. His abdominal exam however on my exam is nontender. He is having copious diarrhea. This was sent off. It is positive for fecal leukocytes. C. difficile negative. I have added on a hepatitis panel. Patient does meet sepsis criteria and I think would benefit from inpatient evaluation and treatment. Zosyn was ordered. I spoke with our hospitalist who will admit the patient. ED Disposition - Plan for ED Patient: Disposition: Acute Care Hospital [facility] Diagnosis: Sepsis, Diarrhea, Elevated liver enzymes Referrals: Sonny Price MD [Primary Care Provider] -
[2020-12-19] MEDS: 0.9% Normal Saline 1,000 ML 999 ML IV (12:30)
[2020-12-19 12:39] LABS: Absolute Lymphocyte Count 1.32 X10^3/uL (0.83-4.51); Absolute Neutrophil Count 7.3 X10^3/uL (2.0-7.7); Basophil# 0.07 X10^3/uL; Basophil% 0.7 % (0-1); Eosinophil# 0.01 X10^3/uL; Eosinophils% 0.1 % (0-5); Hemoglobin 14.8 g/dL (13.0-16.5); Lymphocyte # 1.32 X10^3/ul (0.83-4.51); Lymphocyte % 13.2 % (19-41); Mean Corp Hgb Conc 32.9 g/dL (32-36); Mean Corpuscular Hgb 28.2 pg (27.0-32.0); Mean Corpuscular Volume 85.9 fL (80-94); Mean Platelet Vol. 11.2 fl (6.2-12.0); Monocyte# 1.21 X10^3/uL; Monocyte% 12.1 % (0-10); NRBC Flagged by Analyzer 0 % (0-5); Neutrophil # 7.32 X10^3/uL (2.7-7.7); Neutrophil % 73.3 % (47-70); Platelet Count 217 K/mm3 (150-450); RBC Distribution Width CV 14.4 % (11.6-14.6); RBC Distribution Width SD 45.6 fl (35.1-43.9); Red Blood Count 5.24 M/mm3 (4.6-6.2)
[2020-12-19] MEDS: Acetaminophen 500 MG Tablet 1000 MG PO (12:40)
[2020-12-19 12:44] LABS: Partial Thromboplast Time 29.2 Seconds (24.1-36.2)
[2020-12-19 12:55] LABS: ALB/GLOB Ratio 0.8 RATIO (0.9-2.4); AST(SGOT) 165 U/L (15-37); Alanine Aminotransfer ALT/SGPT 166 U/L (16-61); Albumin, Serum 3.2 g/dL (3.2-5.0); Alkaline Phosphatase 185 U/L (45-117); Anion Gap 7 (5-15); BUN 13 mg/dL (7-18); BUN/Creat Ratio 10.1 RATIO (10-20); Calcium,Total 8.5 mg/dL (8.5-10.1); Chloride 102 mmol/L (98-107); Creatinine, Serum 1.29 mg/dL (0.70-1.30); EST Glomerular Filtration Rate 63 mL/min (>60); Est Glom Filt Rate - Afr Amer 76 mL/min (>60); Estimated Creatinine Clearance 66.28 ml/min; Globulin 3.8 g/dL (2.2-4.2); Glucose 114 mg/dL (74-106); Lactic Acid 1.4 mmol/L (0.4-1.9); Potassium 3.4 mmol/L (3.5-5.1); Sodium Level 133 mmol/L (136-145)
[2020-12-19 13:04] LABS: Mucous, Urine 0 SEEN /hpf (<or=2+); Red Blood Cells-Urine 0 SEEN /hpf (0-5)
[2020-12-19 13:08] LABS: Color, Urine Amber (Yellow); Glucose, Dipstick Normal (Normal); Ketone-Dipstick 5 mg/dl (Negative); Leukocyte Esterase-Dipstick 25 /ul (Negative); Nitrite-Dipstick Positive (Negative); Occult Blood-Urine 10 /ul (Negative); Protein-Dipstick 30 mg/dl (Negative); Specific Gravity, Urine 1.015 (1.002-1.030); Urine Clarity Sl. Cloudy (Clear); Urine Urobilinogen 1 mg/dl (Normal); Urine pH 6.5 (5.0 - 8.0)
[2020-12-19 13:11] LABS: Urine Bilirubin Dipstick 3 mg/dL (Negative)
--- NOTE | 2020-12-19 13:15 | RAD_ITS ---
STUDY: X-RAY CHEST REASON FOR EXAM: Male, 50 years old. fever and cough TECHNIQUE: Single AP portable view of the chest. COMPARISON: 12/17/2020. FINDINGS: Cardiac silhouette unremarkable. Mild congestion. Aorta minimally calcified. No focal patchy airspace opacities. No pleural effusions. Upper abdomen unremarkable. Osseous structures intact. No pneumothorax. RAD/Chest 1 View (Portable) IMPRESSION: No focal patchy airspace opacities or effusions Mild congestion Electronically Signed: Josafat Stevens DO at 13:27 EDT Tel , Service support ,
[2020-12-19 13:19] LABS: White Blood Cells 0-5 SEEN /hpf (0-5)
[2020-12-19 13:20] LABS: Bacteria RARE /hpf (None Seen); Hyaline Cast 0-5 SEEN /lpf (0-5); Squamous Epithelial Cells - UA 5-10 SEEN /hpf (0-5)
[2020-12-19 13:21] LABS: White Cell Cast 0-5 SEEN /lpf (None Seen)
--- NOTE | 2020-12-19 14:46 | PCM.HP.STD ---
Problem List (1) Sepsis Status: Acute (2) Elevated liver enzymes Status: Acute (3) Hypertension Status: Chronic (4) Hyperlipidemia Status: Chronic (5) Depression Status: Chronic (6) Tobacco dependence Status: Chronic (7) Hypothyroidism Status: Chronic History of Present Illness Date of Admission: 12/19/20 Chief Complaint: Fever, abdominal pain, diarrhea. The patient is a 50 year old M with past medical history as mentioned above presented to the emergency room because of fever, abdominal pain and diarrhea. His illness started this past Thursday which is 4 days ago with abdominal pain, diffuse and generalized, aching pain, 8 out of 10 in severity, associated with nausea and vomiting as well as diarrhea and also reported associated fever and without aggravating or relieving factors. His mentioned that his fever has been up to 101.9 Fahrenheit. Patient has been having diarrhea since onset of symptoms until today, very loose stool, multiple times a day more than 8 times and the last couple days, he has been seeing streaks of blood in it. He reported mild dry cough, no shortness of breath. He denied urinary symptoms. 2 days ago, patient came to the emergency department, had significant work-up including blood work and CT scan abdomen and pelvis. Routine blood work was unremarkable. Chest x-ray showed no acute findings. CT scan abdomen and pelvis without contrast done on December 17, 2020 and showed no acute intra-abdominal pathology. Patient was discharged home. He continued to have significant fever at home as well as abdominal pain and diarrhea. He mentioned that his symptoms did not improve and actually getting worse. Today in the emergency department, patient was febrile, tachycardic, blood pressure was elevated, tachypneic and pulse ox was 96% on room air. Routine blood work was remarkable for sodium of 133, potassium is 3.4. LFT revealed bilirubin of 2.4, AST is 165, ALT 166, alk phos is 185. LFT 2 days ago was normal. EKG revealed sinus tachycardia, no acute changes. Troponin was negative. Urinalysis revealed cloudy urine, positive for nitrite, there was 0-5 WBCs and rare bacteria seen. Patient is being admitted for sepsis with unclear source of infection, abdominal pain and elevated LFT for evaluation and treatment. Past Medical History Past Medical History (Chronic Problems): Chronic Problems Hypertension (Chronic) Hyperlipidemia (Chronic) Depression (Chronic) Obesity (Chronic) Tobacco dependence (Chronic) Hypothyroidism (Chronic) Allergies No Known Allergies Allergy (Verified 12/19/20 11:40) Home Medications: Ambulatory Orders Medication Instructions Recorded Amlodipine [Norvasc] 10 mg PO DAILY 03/15/18 Atorvastatin Calcium 20 mg PO DAILY 03/15/18 Levothyroxine Sodium 125 mcg PO DAILY 02/08/19 Metoprolol Succinate [Toprol Xl] 50 mg PO DAILY 12/19/20 Paroxetine HCl 30 mg PO DAILY 12/19/20 Surgical History: tonsillectomy, - - Lipoma removal Psychiatric History: Depression Lives: Spouse/ Significant Other Smoking Status: Current every day smoker Tobacco Use: Cigarettes Alcohol: None Drugs: None - *Family History Maternal History Items: Cancer - Breast Paternal History Items: Heart Disease - at age 45 from [place]. Review of Systems Constitutional: Reports: Anorexia, Fever, Weakness. Denies: Chills, Fatigue Eyes: Denies: Blurred vision, Double vision, Drainage, Redness HEENT: Denies: Difficulty Hearing, Dysphasia, Ear Pain, Eye Pain, Nasal Congestion, Sore Throat Cardiovascular: Denies: Chest Pain, Claudication, Chest Tightness, Edema, Paroxysmal Noc. Dyspnea, Syncope Respiratory: Reports: Cough. Denies: Pleuritic Pain, Shortness of Breath, Sputum production, Wheezing Gastrointestinal: Reports: Abdominal Pain, Diarrhea, Nausea, Vomiting. Denies: Constipation Genitourinary: Denies: Dysuria, Frequency, Hematuria Musculoskeletal: Denies: Arm Pain, Back Pain, Foot Pain Skin: Denies: Dryness, Rash Neurological: Denies: Balance problems, Blurred vision, Double vision, Change in Speech, Slurred speech, Headaches, Incoordination Psychiatric: Reports: Depression. Denies: Anxiety Endocrine: Denies: Change in Body Habitus, Polydipsia, Polyuria VTE Information - Inpt Only VTE Present on Admission: No VTE Mechan Device Prophylaxis: None VTE Pharm Prophylaxis ordered?: No Patient Problems: Active and Suspected Problems Sepsis (Acute) Elevated liver enzymes (Acute) - Physical Exam Vitals/I&O's: Vital Signs Temp Pulse Resp BP Pulse Ox 100.1 F H 99 24 H 168/74 H 96 12/19/20 14:00 12/19/20 14:00 12/19/20 14:00 12/19/20 14:00 12/19/20 14:00 Oxygen Delivery Method Room Air Weight: 265 lb Body Mass Index (BMI) 40.3 General: Alert, Oriented x3, Cooperative, No apparent distress HEENT: Atraumatic, PERRLA, EOMI, Normocephalic Oral: Moist Mucosa, No Gingival or Mucosal Lesions/ Ulcerations Neck: Supple, No JVD, Negative Carotid Bruits, Trachea Midline, Thyroid Normal Size and Texture Lungs: Clear to auscultation, Normal air movement, No rhonchi, No wheeze, No rales, Diminished Cardiovascular: Regular rate, Regular Rhythm, Normal S1, Normal S2, PMI Normal, Tachycardic Abdomen: Bowel Sounds Present, Non-Distended, No Hepato-splenomegaly, Obese, Tender - Tenderness, guarding, no rigidity. Extremities: No clubbing, No cyanosis, No edema Skin: No rashes, No breakdown Lymphatic: No Cervical, Supraclavicular, or Inguinal Adenopathy Neurological: Cranial nerves II-XII grossly intact, Motor Exam 5/5 strength throughout Psych/Mental Status: Normal Affect, Appropriate, Alert and oriented to time, place, person, mood and affect Microbiology Past 72 Hours 12/19/20 12:35 Stool Stool Lactoferrin - Final 12/19/20 12:35 Nasal Secretion SARS-CoV-2 Antigen (Rapid) - Final Laboratory Results 12/19/20 12:10: WBC 10.0, RBC 5.24, Hgb 14.8, Hct 45.0, MCV 85.9, MCH 28.2, MCHC 32.9, RDW Std Deviation 45.6 H, RDW Coeff of Melva 14.4, Plt Count 217, MPV 11.2, Immature Gran % (Auto) 0.600, Neut % (Auto) 73.3 H, Lymph % (Auto) 13.2 L, [place] % (Auto) 12.1 H, Eos % (Auto) 0.1, Baso % (Auto) 0.7, Absolute Neuts (auto) 7.3, Absolute Lymphs (auto) 1.32, Nucleated RBC % 0 12/19/20 12:10: PT 13.0, INR 1.0, APTT 29.2 12/19/20 12:10: Sodium 133 L, Potassium 3.4 L, Chloride 102, Carbon Dioxide 24.0, Anion Gap 7, BUN 13, Creatinine 1.29, Estim Creat Clear Calc 66.28, Est GFR (MDRD) Af Amer 76, Est GFR (MDRD) Non-Af 63, BUN/Creatinine Ratio 10.1, Glucose 114 H, Calcium 8.5, Total Bilirubin 2.40 H, AST 165 H, ALT 166 H, Alkaline Phosphatase 185 H, Troponin I < 0.015, Total Protein 7.0, Albumin 3.2, Globulin 3.8, Albumin/Globulin Ratio 0.8 L 12/19/20 12:10: Lactic Acid 1.4 12/19/20 12:40: Urine Color Porsha, Urine Clarity Sl. Cloudy, Urine pH 6.5, Ur Specific [place] 1.015, Urine Protein 30 H, Urine Glucose (UA) Normal, Urine Ketones 5 H, Urine Occult Blood 10 H, Urine Nitrite Positive H, Urine Bilirubin 3 H, Urine Urobilinogen 1 H, Ur Leukocyte Esterase 25 H, Urine RBC 0 SEEN, Urine WBC 0-5 SEEN, Ur Squamous Epith Cells 5-10 SEEN, Urine Bacteria RARE, Hyaline Casts 0-5 SEEN, WBC Casts 0-5 SEEN, Urine Mucus 0 SEEN 12/19/20 13:25: Hepatitis A IgM Ab Pending, Hep Bs Antigen Pending, Hep B Core IgM Ab Pending, Hepatitis C Ab (EIA) Pending Clinical Impression(s) from Imaging Studies Chest X-Ray 12/19/20 13:15 IMPRESSION: No focal patchy airspace opacities or effusions Mild congestion Electronically Signed: Josafat Stevens, at 13:27 EDT Tel , Service support , Current Medications Sodium Chloride () 1,000 mls @ 250 mls/hr IV .Q4H ARIANE Piperacillin Sod/Tazobactam (Sod 4.5 gm/ Sodium Chloride) 100 mls @ 200 mls/hr IV X1 ONE Stop: 12/19/20 15:11 Assessment/Plan All Active Problems Sepsis (Acute) Elevated liver enzymes (Acute) This is a 50 years old male patient presented to the emergency room because of persistent fever, abdominal pain, diarrhea with nausea and vomiting, found to have sepsis of unclear etiology and also found to have elevated LFT and is being admitted for evaluation and treatment. #1 sepsis: Based on fever, tachycardia, tachypnea and acute diarrheal illness as well as elevated LFT. Chest x-ray showed no acute findings. COVID-19 antigen was negative. Plan: Admit to PCU, cardiac monitoring, keep n.p.o., IV fluids, start empiric IV Zosyn, stool for C. difficile, stool for enteric pathogens, blood culture, urine culture, repeat CBC and CMP tomorrow morning, check serum lipase. #2 abdominal pain/acute diarrheal illness: CT scan abdomen and pelvis without contrast that was done on December 17, 2020 showed no acute findings. Today, LFTs elevated. Plan: Keep on n.p.o., IV morphine as needed for pain, IV Zofran, ultrasound gallbladder, general surgery consult. #3 elevated LFT: LFT 2 days ago was normal. Patient reported diffuse abdominal pain, not specifically right upper quadrant. Bilirubin, liver transaminases and alk phos are all elevated. He does have guarding on physical exam. No rigidity. Plan: Ultrasound gallbladder, general surgery consult, check serum lipase, repeat CMP tomorrow morning. #4 hypertension: Blood pressure was elevated, continue Norvasc and metoprolol, start IV Thorazine as needed. #5 hypothyroidism: Continue levothyroxine. #6 hyperlipidemia: Hold statins. #7 depression: Hold paroxetine. #8 DVT prophylaxis: Low risk patient, no prophylaxis indicated. This note was generated with [employer] dictation software. It may contain incorrect words, spelling, and punctuation that were not noted in checking the note before signing. Inpatient E&M: 15151 Init Hosp L3
[2020-12-19] MEDS: 0.9% Normal Saline 1,000 ML 250 ML IV (15:15)
--- NOTE | 2020-12-19 15:39 | US_ITS ---
STUDY: ABDOMINAL ULTRASOUND - RIGHT UPPER QUADRANT REASON FOR VISIT: Male, 50 years old Elevated LFT -- Abdominal pain, fever TECHNIQUE: Ultrasound evaluation of the right upper quadrant was performed with real-time and static reynoso-scale imaging. TECHNICAL QUALITY: Adequate. COMPARISON: Prior abdomen and pelvic CT exam of 12/17/2020 FINDINGS: Liver: The liver measures 20.9 cm. There is increased echogenicity consistent with fatty infiltration. The bile ducts are within normal limits. There is hepatic color flow. The direction of portal flow is hepatopetal. There is no demonstrated mass lesion. Gallbladder: Distended. The gallbladder wall measures 3 mm. Diffuse abdominal tenderness. Trace pericholecystic fluid. There are no gallstones. Common Bile Duct (C.B.D.): The common bile duct measures 5 mm. Pancreas: Not visualized secondary to bowel gas. Right Kidney: Normal size of the right kidney. The right kidney measures 11.6 x 5.0 x 4.8 cm. Normal renal cortex. The right cortex measures 1.6 cm. There is no demonstrated renal mass or cyst. There is no right hydronephrosis. US/Gallbladder IMPRESSION: Fatty hepatomegaly. Distended gallbladder without wall thickening, sludge or stones. Trace pericholecystic fluid. Nonvisualized pancreas secondary to bowel gas. Normal right kidney. Electronically Signed: Arleth Vinson MD at 23:59 EDT , Service support ,
--- NOTE | 2020-12-19 15:51 | EKG12_ITS ---
Test Reason : CP Blood Pressure : / mmHG Vent. Rate : 098 BPM Atrial Rate : 098 BPM P-R Int : 134 ms QRS Dur : 098 ms QT Int : 354 ms P-R-T Axes : 071 002 026 degrees QTc Int : 451 ms Normal sinus rhythm [id number] Poor R- wave progression Nonspecific ST and T wave abnormality Abnormal ECG Confirmed by YUE REICH, JAMAR ([id number]), editor managing newspaper BRANDON BENJAMIN ([id number]) on 12/24/2020 9:07:25 AM Referred By: Jada TAVAREZ Confirmed By:JAMAR TURNER MD
[2020-12-19 16:09] LABS: Lipase 76 U/L (73-393)
--- NOTE | 2020-12-19 16:09 | CON.PCM_ITS ---
Problem List (1) Elevated liver enzymes Status: Acute (2) Sepsis Status: Acute Reason for Consult Date of Consultation: 12/19/20 Reason for Consultation: Abdominal pain and elevated liver enzymes History of Present Illness: The patient is a 50 year old M started having abdominal pain and diarrhea nausea vomiting on Thursday which was 5 days ago. The patient reports that his been progressively worsening. He has diffuse abdominal pain with no point tenderness in any 1 location. He is having diarrhea several times per day as well as nausea and vomiting and fevers and chills. The patient notes no prior history of gallbladder disease. The patient does not say he ate anything out of the ordinary. Past Medical History Past Medical History (Chronic Problems): Chronic Problems Hypertension (Chronic) Hyperlipidemia (Chronic) Depression (Chronic) Obesity (Chronic) Tobacco dependence (Chronic) Hypothyroidism (Chronic) Allergies No Known Allergies Allergy (Verified 12/19/20 11:40) Home Medications: Ambulatory Orders Medication Instructions Recorded Amlodipine [Norvasc] 10 mg PO DAILY 03/15/18 Atorvastatin Calcium 20 mg PO DAILY 03/15/18 Levothyroxine Sodium 125 mcg PO DAILY 02/08/19 Metoprolol Succinate [Toprol Xl] 50 mg PO DAILY 12/19/20 Paroxetine HCl 30 mg PO DAILY 12/19/20 Surgical History: tonsillectomy, - - Lipoma removal Psychiatric History: Depression Lives: Spouse/ Significant Other Smoking Status: Current every day smoker Tobacco Use: Cigarettes Alcohol: None Drugs: None - *Family History Maternal History Items: Cancer - Breast Paternal History Items: Heart Disease - at age 45 from [place]. Review of Systems Constitutional: Reports: Chills, Fever. Denies: Anorexia HEENT: Denies: Difficulty Swallowing Cardiovascular: Reports: Chest Pain Respiratory: Denies: Shortness of Breath Gastrointestinal: Reports: Abdominal Pain, Diarrhea, Nausea, Vomiting Genitourinary: Denies: Dysuria Skin: Denies: Jaundice Neurological: Denies: Balance problems Hematologic/ Lymphatic: Denies: Anemia Patient Problems: Active and Suspected Problems Sepsis (Acute) Elevated liver enzymes (Acute) - Physical Exam Vitals/I&O's: Vital Signs Temp Pulse Resp BP Pulse Ox 99.8 F H 95 24 H 135/75 H 95 12/19/20 15:07 12/19/20 15:07 12/19/20 15:07 12/19/20 15:07 12/19/20 15:07 Oxygen Delivery Method Room Air Weight: 265 lb Body Mass Index (BMI) 40.3 Intake and Output for Last 24 Hours 12/17/20 12/18/20 12/19/20 23:59 23:59 23:59 Intake Total 1000 / 1000 Balance 1000 / 1000 General: Alert, Oriented x3 Neck: No JVD Cardiovascular: Regular rate, Regular Rhythm Abdomen: Soft, Non-Distended, Tender - Diffusely tender with no guarding or rebound Extremities: No clubbing Skin: No rashes Musculoskeletal: No Muscle Wasting Neurological: Cranial nerves II-XII grossly intact Psych/Mental Status: Normal Affect Microbiology Past 72 Hours 12/19/20 12:35 Stool Stool Lactoferrin - Final 12/19/20 12:35 Nasal Secretion SARS-CoV-2 Antigen (Rapid) - Final Laboratory Results 12/19/20 12:10: WBC 10.0, RBC 5.24, Hgb 14.8, Hct 45.0, MCV 85.9, MCH 28.2, MCHC 32.9, RDW Std Deviation 45.6 H, RDW Coeff of Melva 14.4, Plt Count 217, MPV 11.2, Immature Gran % (Auto) 0.600, Neut % (Auto) 73.3 H, Lymph % (Auto) 13.2 L, [place] % (Auto) 12.1 H, Eos % (Auto) 0.1, Baso % (Auto) 0.7, Absolute Neuts (auto) 7.3, Absolute Lymphs (auto) 1.32, Nucleated RBC % 0 12/19/20 12:10: PT 13.0, INR 1.0, APTT 29.2 12/19/20 12:10: Sodium 133 L, Potassium 3.4 L, Chloride 102, Carbon Dioxide 24.0, Anion Gap 7, BUN 13, Creatinine 1.29, Estim Creat Clear Calc 66.28, Est GFR (MDRD) Af Amer 76, Est GFR (MDRD) Non-Af 63, BUN/Creatinine Ratio 10.1, Glucose 114 H, Calcium 8.5, Total Bilirubin 2.40 H, AST 165 H, ALT 166 H, A lkaline Phosphatase 185 H, Troponin I < 0.015, Total Protein 7.0, Albumin 3.2, Globulin 3.8, Albumin/Globulin Ratio 0.8 L 04/14/21 12:10: Lactic Acid 1.4 12/19/20 12:10: Lipase 76 12/19/20 12:40: Urine Color Porsha, Urine Clarity Sl. Cloudy, Urine pH 6.5, Ur Specific [place] 1.015, Urine Protein 30 H, Urine Glucose (UA) Normal, Urine Ketones 5 H, Urine Occult Blood 10 H, Urine Nitrite Positive H, Urine Bilirubin 3 H, Urine Urobilinogen 1 H, Ur Leukocyte Esterase 25 H, Urine RBC 0 SEEN, Urine WBC 0-5 SEEN, Ur Squamous Epith Cells 5-10 SEEN, Urine Bacteria RARE, Hyaline Casts 0-5 SEEN, WBC Casts 0-5 SEEN, Urine Mucus 0 SEEN 12/19/20 13:25: Hepatitis A IgM Ab Pending, Hep Bs Antigen Pending, Hep B Core IgM Ab Pending, Hepatitis C Ab (EIA) Pending Clinical Impression(s) from Imaging Studies Chest X-Ray 12/19/20 13:15 IMPRESSION: No focal patchy airspace opacities or effusions Mild congestion Electronically Signed: Josafat Stevens DO at 13:27 EDT Tel , Service support , Current Medications Amlodipine Besylate (Amlodipine 10 Mg Tablet) 10 mg PO DAILY [facility] Hydralazine HCl (Hydralazine 20 Mg/Ml Vial) 10 mg IV Q6H PRN PRN PRN Reason: for SBP>160 Potassium Chloride/Sodium Chloride () 1,000 mls @ 100 mls/hr IV .Q10H [facility] Piperacillin Sod/Tazobactam (Sod 3.375 gm/ Sodium Chloride) 50 mls @ 12.5 mls/hr IV Q8 [facility] Ibuprofen (Ibuprofen 400 Mg Tablet) 400 mg PO Q4H PRN PRN PRN Reason: Pain Score 1-10/Temp > 100.7 F Levothyroxine Sodium (Levothyroxine 125 Mcg Tablet) 125 mcg PO DAILY@0600 [facility] Metoprolol Succinate (Metoprolol(Xl)Succ 50 Mg Tablet) 50 mg PO DAILY [facility] Morphine Sulfate (Morphine 2 Mg/Ml Syringe) 2 mg IV Q3H PRN PRN PRN Reason: Pain Score 6-10 Ondansetron HCl (Ondansetron 4 Mg/2 Ml Vial) 4 mg IV Q8H PRN PRN PRN Reason: NAUSEA/VOMITING Assessment/Plan All Active Problems Sepsis (Acute) Elevated liver enzymes (Acute) 50-year-old male with elevated liver enzymes and sepsis 1. Patient was in the emergency room 2 days ago and had a CT scan which was normal. The patient presented 2 days later and now he has elevated liver enzymes which were normal 2 days ago. The patient also has a borderline white count with left shift. The patient reports he is having diarrhea as well as nausea and vomiting. He reports diffuse abdominal pain. 2. Due to the elevated liver enzymes the patient is having a hepatitis work-up and I would recommend ultrasound of the gallbladder. The patient has stool studies pending. I would like to review the ultrasound before ordering a CT scan. If the ultrasound shows gallstones and signs of acute cholecystitis and his liver enzymes trend downward, I will take him tomorrow afternoon for laparoscopic cholecystectomy cholangiogram. If the ultrasound shows no signs of cholecystitis but his liver enzymes increased I will order an MRCP tomorrow. If his ultrasound is completely normal with no cholelithiasis or signs of acute cholecystitis I will recommend CT with p.o. and IV contrast. By tomorrow the stool studies should come back as well including C. difficile. Continue antibiotics and n.p.o. status with IV fluids. Yuniel Andrade MD Pager: [facility] [address] [place] [address], [address] [place] [address] Office:
[2020-12-19] MEDS: Ciprofloxacin 400 MG/200 ML BAG 200 MG IV (17:30)
[2020-12-19] MEDS: 0.9% Saline Lock 10 ML Syringe IV (17:30)
[2020-12-19] MEDS: Ibuprofen 400 MG Tablet PO (20:30)
[2020-12-20] VITALS (11 sets, daily range): BP systolic 122–139; BP diastolic 70–77; PULSE 77–111; RESP 16–18; TEMP 36.7–37.1; O2SAT 95–98
[2020-12-20 06:28] LABS: Absolute Lymphocyte Count 1.23 X10^3/uL (0.83-4.51); Absolute Neutrophil Count 4.7 X10^3/uL (2.0-7.7); Basophil# 0.04 X10^3/uL; Basophil% 0.5 % (0-1); Eosinophil# 0.02 X10^3/uL; Eosinophils% 0.3 % (0-5); Hematocrit 42.8 % (40-54); Hemoglobin 13.6 g/dL (13.0-16.5); Lymphocyte # 1.23 X10^3/ul (0.83-4.51); Lymphocyte % 16.8 % (19-41); Mean Corp Hgb Conc 31.8 g/dL (32-36); Mean Corpuscular Hgb 27.9 pg (27.0-32.0); Mean Corpuscular Volume 87.7 fL (80-94); Mean Platelet Vol. 10.1 fl (6.2-12.0); Monocyte# 1.21 X10^3/uL; Monocyte% 16.6 % (0-10); NRBC Flagged by Analyzer 0 % (0-5); Neutrophil # 4.72 X10^3/uL (2.7-7.7); Neutrophil % 64.6 % (47-70); Platelet Count 169 K/mm3 (150-450); RBC Distribution Width CV 14.3 % (11.6-14.6); RBC Distribution Width SD 46.4 fl (35.1-43.9); Red Blood Count 4.88 M/mm3 (4.6-6.2); White Blood Count 7.3 K/mm3 (4.4-11.0)
[2020-12-20 06:52] LABS: ALB/GLOB Ratio 0.6 RATIO (0.9-2.4); AST(SGOT) 305 U/L (15-37); Alanine Aminotransfer ALT/SGPT 358 U/L (16-61); Albumin, Serum 2.7 g/dL (3.2-5.0); Alkaline Phosphatase 213 U/L (45-117); Anion Gap 4 (5-15); BUN 10 mg/dL (7-18); BUN/Creat Ratio 8.5 RATIO (10-20); Calcium,Total 8.6 mg/dL (8.5-10.1); Chloride 105 mmol/L (98-107); Creatinine, Serum 1.18 mg/dL (0.70-1.30); EST Glomerular Filtration Rate 69 mL/min (>60); Est Glom Filt Rate - Afr Amer 84 mL/min (>60); Estimated Creatinine Clearance 72.46 ml/min; Globulin 4.2 g/dL (2.2-4.2); Glucose 106 mg/dL (74-106); Potassium 3.4 mmol/L (3.5-5.1); Protein, Total 6.9 g/dL (6.4-8.2); Sodium Level 136 mmol/L (136-145)
[2020-12-20 07:46] LABS: Magnesium 1.9 mg/dL (1.6-2.6)
--- NOTE | 2020-12-20 08:09 | PCM.PN.SRG ---
Patient Problems: Active and Suspected Problems Sepsis (Acute) Elevated liver enzymes (Acute) Subjective: Patient does have some improvement in abdominal pain and diarrhea. - Physical Exam Vitals/I&O's: Vital Signs Temp Pulse Resp BP Pulse Ox 98.3 F 93 16 122/70 H 98 12/20/20 04:06 12/20/20 06:59 12/20/20 04:06 12/20/20 04:06 12/20/20 07:22 Oxygen Flow Rate (L/min) 2 Oxygen Delivery Method Nasal Cannula Weight: 273 lb 5.971 oz Body Mass Index (BMI) 41.5 Intake and Output for Last 24 Hours 12/18/20 12/19/20 12/20/20 23:59 23:59 23:59 Intake Total 2012.5 / 2011. 850 / 850 Output Total 400 / 400 Balance 1612.5 / 1612.5 850 / 850 General: Alert, Oriented x3 HEENT: Atraumatic Neck: No JVD Cardiovascular: Regular rate, Regular Rhythm Abdomen: Soft, Non-Distended, Tender - Mild diffuse tenderness with no guarding or rebound Musculoskeletal: No Muscle Wasting Lymphatic: No Cervical, Supraclavicular, or Inguinal Adenopathy Microbiology Past 72 Hours 12/19/20 12:35 Stool Stool Lactoferrin - Final 12/19/20 12:35 Stool Enteric Bacteriology - Preliminary Salmonella Sp. 12/19/20 12:35 Stool C. difficile DNA Amplification - Final 12/19/20 12:35 Nasal Secretion SARS-CoV-2 Antigen (Rapid) - Final Laboratory Results 12/19/20 12:10: WBC 10.0, RBC 5.24, Hgb 14.8, Hct 45.0, MCV 85.9, MCH 28.2, MCHC 32.9, RDW Std Deviation 45.6 H, RDW Coeff of Melva 14.4, Plt Count 217, MPV 11.2, Immature Gran % (Auto) 0.600, Neut % (Auto) 73.3 H, Lymph % (Auto) 13.2 L, [place] % (Auto) 12.1 H, Eos % (Auto) 0.1, Baso % (Auto) 0.7, Absolute Neuts (auto) 7.3, Absolute Lymphs (auto) 1.32, Nucleated RBC % 0 12/19/20 12:10: PT 13.0, INR 1.0, APTT 29.2 12/19/20 12:10: Sodium 133 L, Potassium 3.4 L, Chloride 102, Carbon Dioxide 24.0, Anion Gap 7, BUN 13, Creatinine 1.29, Estim Creat Clear Calc 66.28, Est GFR (MDRD) Af Amer 76, Est GFR (MDRD) Non-Af 63, BUN/Creatinine Ratio 10.1, Glucose 114 H, Calcium 8.5, Total Bilirubin 2.40 H, AST 165 H, ALT 166 H, Alkaline Phosphatase 185 H, Troponin I < 0.015, Total Protein 7.0, Albumin 3.2, Globulin 3.8, Albumin/Globulin Ratio 0.8 L 12/19/20 12:10: Lactic Acid 1.4 12/19/20 12:10: Lipase 76 12/19/20 12:40: Urine Color Porsha, Urine Clarity Sl. Cloudy, Urine pH 6.5, Ur Specific [place] 1.015, Urine Protein 30 H, Urine Glucose (UA) Normal, Urine Ketones 5 H, Urine Occult Blood 10 H, Urine Nitrite Positive H, Urine Bilirubin 3 H, Urine Urobilinogen 1 H, Ur Leukocyte Esterase 25 H, Urine RBC 0 SEEN, Urine WBC 0-5 SEEN, Ur Squamous Epith Cells 5-10 SEEN, Urine Bacteria RARE, Hyaline Casts 0-5 SEEN, WBC Casts 0-5 SEEN, Urine Mucus 0 SEEN 12/19/20 13:25: Hepatitis A IgM Ab Pending, Hep Bs Antigen Pending, Hep B Core IgM Ab Pending, Hepatitis C Ab (EIA) Pending 12/20/20 06:20: WBC 7.3, RBC 4.88, Hgb 13.6, Hct 42.8, MCV 87.7, MCH 27.9, MCHC 31.8 L, RDW Std Deviation 46.4 H, RDW Coeff of Melva 14.3, Plt Count 169, MPV 10.1, Immature Gran % (Auto) 1.200 H, Neut % (Auto) 64.6, Lymph % (Auto) 16.8 L, [place] % (Auto) 16.6 H, Eos % (Auto) 0.3, Baso % (Auto) 0.5, Absolute Neuts (auto) 4.7, Absolute Lymphs (auto) 1.23, Nucleated RBC % 0 12/20/20 06:20: Sodium 136, Potassium 3.4 L, Chloride 105, Carbon Dioxide 27.0, Anion Gap 4 L, BUN 10, Creatinine 1.18, Estim Creat Clear Calc 72.46, Est GFR (MDRD) Af Amer 84, Est GFR (MDRD) Non-Af 69, BUN/Creatinine Ratio 8.5 L, Glucose 106, Calcium 8.6, Total Bilirubin 3.90 H, AST 305 H, ALT 358 H, Alkaline Phosphatase 213 H, Total Protein 6.9, Albumin 2.7 L, Globulin 4.2, Albumin/Globulin Ratio 0.6 L 12/20/20 06:20: Magnesium 1.9 Current Medications Amlodipine Besylate (Amlodipine 10 Mg Tablet) 10 mg PO DAILY [facility] Hydralazine HCl (Hydralazine 20 Mg/Ml Vial) 10 mg IV Q6H PRN PRN PRN Reason: for SBP>160 Potassium Chloride/Sodium Chloride () 1,000 mls @ 100 mls/hr IV .Q10H [facility] Last Admin: 12/20/20 03:29 Dose: 100 mls/hr Documented by: Ciprofloxacin (Cipro) 400 mg in 200 mls @ 200 mls/hr IV Q12 [facility] Last Infusion: 12/19/20 18:34 Dose: Infused Documented by: Magnesium Sulfate 2 gm/ Sodium (Chloride) 104 mls @ 52 mls/hr IV X1 ONE Stop: 12/20/20 10:00 Ibuprofen (Ibuprofen 400 Mg Tablet) 400 mg PO Q4H PRN PRN PRN Reason: Pain Score 1-10/Temp > 100.7 F Last Admin: 12/19/20 20:30 Dose: 400 mg Documented by: Levothyroxine Sodium (Levothyroxine 125 Mcg Tablet) 125 mcg PO DAILY@0600 [facility] Metoprolol Succinate (Metoprolol(Xl)Succ 50 Mg Tablet) 50 mg PO DAILY [facility] Morphine Sulfate (Morphine 2 Mg/Ml Syringe) 2 mg IV Q3H PRN PRN PRN Reason: Pain Score 6-10 Ondansetron HCl (Ondansetron 4 Mg/2 Ml Vial) 4 mg IV Q8H PRN PRN PRN Reason: NAUSEA/VOMITING Sodium Chloride (0.9% Saline Lock 10 Ml Syringe) 10 - 40 ml IV UD PRN PRN Reason: SALINE FLUSH Last Admin: 12/19/20 17:30 Dose: 10 ml Documented by: Medical Necessity - Tobacco Use Smoking Status: Never smoker Tobacco Use: Cigarettes Assessment/Plan All Active Problems Sepsis (Acute) Elevated liver enzymes (Acute) 50-year-old male with Salmonella poisoning 1. The the patient stool was positive for Salmonella. The patient had an ultrasound of his gallbladder which showed no gallstones and no thickening. At this point I do not plan on any surgical intervention. Diet may be advanced as tolerated per hospitalist group and treatment with antibiotics and supportive care. Please call if there are any questions or concerns as I will sign off. Yuniel Andrade MD Pager: [facility] [address] [place] [address], [address] [place] [address] Office:
[2020-12-20] MEDS: Levothyroxine 125 MCG Tablet PO (08:39)
[2020-12-20] MEDS: Ciprofloxacin 400 MG/200 ML BAG 200 MG IV ×2 (08:39→20:59)
--- NOTE | 2020-12-20 09:30 | CASEMGMT ---
RN CM Face to Face with patient for initial transition planning/care coordination assessment. RN CM introduced self and role at [facility]. Patient sitting at edge of bed, alert and oriented. Patient willing to participate in assessment and is able to answer all questions appropriately. Care providers, pharmacy, and demographics verified. Patient wishes to discharge home, denies need for home health at this time. Patient states he has no further needs or concerns at this time. CM to follow for discharge planning needs that may arise. PCP: Dee Specialists: none Preferred Pharmacy: [facility] Insurance: [facility] Prescription Benefit: yes Living Will/HPOA: none LNOK: Living Arrangements: Patient lives with in a single story home with no steps to enter the home. Patient states he is independent at home. Transportation: self/ DME/HHC: Patient states he has a Bipap at home that he wears nightly. No previous HHC or SNF. Patient states he smokes 1/2 PPD of cigarettes and does not want information on quitting at this time. Disposition Plan: Patient to discharge home with family support and follow-up plans in place. Aviva KINSEY, RN, CM
[2020-12-20] MEDS: amLODIPine 10 MG Tablet PO (09:42)
[2020-12-20] MEDS: Metoprolol(XL)Succ 50 MG Tablet PO (09:42)
--- NOTE | 2020-12-20 13:01 | PCM.PN.HOSP ---
<Lebron Hope - Last Filed: 12/20/20 13:01> Patient Problems: Active and Suspected Problems Sepsis (Acute) Elevated liver enzymes (Acute) Subjective: Patient is a 50-year-old male who is resting comfortably side of the bed eating breakfast, alert and orient x3. She reports resolution of his abdominal pain however still reports some slight diarrhea. Patient reports the diarrhea is green and brown, denies any blood or mucus evident in stool. Denies fever, chills, chest pain, shortness of breath and palpitations. Objective: Clinical Impression(s) from Imaging Studies Chest X-Ray 12/19/20 13:15 IMPRESSION: No focal patchy airspace opacities or effusions Mild congestion Electronically Signed: Josafat Stevens DO at 13:27 EDT Tel , Service support , Gallbladder Ultrasound 12/19/20 15:39 IMPRESSION: Fatty hepatomegaly. Distended gallbladder without wall thickening, sludge or stones. Trace pericholecystic fluid. Nonvisualized pancreas secondary to bowel gas. Normal right kidney. Electronically Signed: Arleth Vinson MD at 23:59 EDT , Service support , Microbiology 12/19/20 12:35 Stool Stool Lactoferrin - Final 12/19/20 12:35 Stool Enteric Bacteriology - Preliminary Salmonella Sp. 12/19/20 12:35 Stool C. difficile DNA Amplification - Final 12/19/20 12:40 Urine, Clean Catch Urine Culture - Final Mixed Gram Pos & Gram Neg Org 12/19/20 12:35 Nasal Secretion SARS-CoV-2 Antigen (Rapid) - Final Vitals/I&O's: Vital Signs Temp Pulse Resp BP Pulse Ox 97.8 F 104 H 18 139/77 H 96 12/20/20 09:40 12/20/20 09:42 12/20/20 09:40 12/20/20 09:40 12/20/20 09:40 Oxygen Flow Rate (L/min) 2 Oxygen Delivery Method Room Air Weight: 273 lb 5.971 oz Body Mass Index (BMI) 41.5 Intake and Output for Last 24 Hours 12/18/20 12/19/20 12/20/20 23:59 23:59 23:59 Intake Total 2011.5 / 2011. 1737.33 / 1737.33 Output Total 400 / 400 Balance 1612.5 / 1612.5 1737.33 / 1737.33 General: Alert, Oriented x3, Cooperative HEENT: Atraumatic, PERRLA, EOMI, Normocephalic Neck: Supple, No JVD, Negative Carotid Bruits Lungs: Clear to auscultation, Normal air movement Cardiovascular: Regular rate, No murmurs Abdomen: Bowel Sounds Present, Soft, Tender - Abdomen tender to palpation Extremities: No edema, Capillary Refill Less than 3 Seconds Skin: No rashes, No breakdown Musculoskeletal: No Tenderness to Palpation of Joints or Extremities Neurological: Cranial nerves II-XII grossly intact Psych/Mental Status: Normal Affect, Appropriate Microbiology Past 72 Hours 12/19/20 12:35 Stool Stool Lactoferrin - Final 12/19/20 12:35 Stool Enteric Bacteriology - Preliminary Salmonella Sp. 12/19/20 12:35 Stool C. difficile DNA Amplification - Final 12/19/20 12:40 Urine, Clean Catch Urine Culture - Final Mixed Gram Pos & Gram Neg Org 12/19/20 12:35 Nasal Secretion SARS-CoV-2 Antigen (Rapid) - Final Laboratory Results 12/19/20 12:10: Lipase 76 12/19/20 12:40: Urine Color Porsha, Urine Clarity Sl. Cloudy, Urine pH 6.5, Ur Specific [place] 1.015, Urine Protein 30 H, Urine Glucose (UA) Normal, Urine Ketones 5 H, Urine Occult Blood 10 H, Urine Nitrite Positive H, Urine Bilirubin 3 H, Urine Urobilinogen 1 H, Ur Leukocyte Esterase 25 H, Urine RBC 0 SEEN, Urine WBC 0-5 SEEN, Ur Squamous Epith Cells 5-10 SEEN, Urine Bacteria RARE, Hyaline Casts 0-5 SEEN, WBC Casts 0-5 SEEN, Urine Mucus 0 SEEN 12/19/20 13:25: Hepatitis A IgM Ab Pending, Hep Bs Antigen Pending, Hep B Core IgM Ab Pending, Hepatitis C Ab (EIA) Pending 12/20/20 06:20: WBC 7.3, RBC 4.88, Hgb 13.6, Hct 42.8, MCV 87.7, MCH 27.9, MCHC 31.8 L, RDW Std Deviation 46.4 H, RDW Coeff of Melva 14.3, Plt Count 169, MPV 10.1, Immature Gran % (Auto) 1.200 H, Neut % (Auto) 64.6, Lymph % (Auto) 16.8 L, Bracken % (Auto) 16.6 H, Eos % (Auto) 0.3, Baso % (Auto) 0.5, Absolute Neuts (auto) 4.7, Absolute Lymphs (auto) 1.23, Nucleated RBC % 0 12/20/20 06:20: Sodium 136, Potassium 3.4 L, Chloride 105, Carbon Dioxide 27.0, Anion Gap 4 L, BUN 10, Creatinine 1.18, Estim Creat Clear Calc 72.46, Est GFR (MDRD) Af Amer 84, Est GFR (MDRD) Non-Af 69, BUN/Creatinine Ratio 8.5 L, Glucose 106, Calcium 8.6, Total Bilirubin 3.90 H, AST 305 H, ALT 358 H, Alkaline Phosphatase 213 H, Total Protein 6.9, Albumin 2.7 L, Globulin 4.2, Albumin/Globulin Ratio 0.6 L 12/20/20 06:20: Magnesium 1.9 Current Medications Amlodipine Besylate (Amlodipine 10 Mg Tablet) 10 mg PO DAILY [facility] Last Admin: 12/20/20 09:42 Dose: 10 mg Documented by: Hydralazine HCl (Hydralazine 20 Mg/Ml Vial) 10 mg IV Q6H PRN PRN PRN Reason: for SBP>160 Potassium Chloride/Sodium Chloride () 1,000 mls @ 100 mls/hr IV .Q10H [facility] Last Admin: 12/20/20 12:37 Dose: Not Given Documented by: Ciprofloxacin (Cipro) 400 mg in 200 mls @ 200 mls/hr IV Q12 [facility] Last Infusion: 12/20/20 09:42 Dose: Infused Documented by: Ibuprofen (Ibuprofen 400 Mg Tablet) 400 mg PO Q4H PRN PRN PRN Reason: Pain Score 1-10/Temp > 100.7 F Last Admin: 12/19/20 20:30 Dose: 400 mg Documented by: Levothyroxine Sodium (Levothyroxine 125 Mcg Tablet) 125 mcg PO DAILY@0600 [facility] Last Admin: 12/20/20 08:39 Dose: 125 mcg Documented by: Metoprolol Succinate (Metoprolol(Xl)Succ 50 Mg Tablet) 50 mg PO DAILY [facility] Last Admin: 12/20/20 09:42 Dose: 50 mg Documented by: Morphine Sulfate (Morphine 2 Mg/Ml Syringe) 2 mg IV Q3H PRN PRN PRN Reason: Pain Score 6-10 Ondansetron HCl (Ondansetron 4 Mg/2 Ml Vial) 4 mg IV Q8H PRN PRN PRN Reason: NAUSEA/VOMITING Sodium Chloride (0.9% Saline Lock 10 Ml Syringe) 10 - 40 ml IV UD PRN PRN Reason: SALINE FLUSH Last Admin: 12/19/20 17:30 Dose: 10 ml Documented by: STROKE Vital Signs/Narrative: Vital Signs Temp Pulse Resp BP Pulse Ox 12/20/20 09:42 104 H 12/20/20 09:40 97.8 F 104 H 18 139/77 H 96 Medical Necessity - Tobacco Use Smoking Status: Never smoker Tobacco Use: Cigarettes Assessment/Plan All Active Problems Sepsis (Acute) Elevated liver enzymes (Acute) Patient is a 50-year-old male who presented to the ED on 12/19/2020 with a chief complaint of fever, abdominal pain and diarrhea x4 days. Patient was admitted for sepsis and elevated liver enzymes. Ultrasound of the gallbladder demonstrated no gallstones and no gallbladder thickening. General surgery was consulted, and in light of the ultrasound findings patient is not a candidate for surgical intervention. Stool culture demonstrates Salmonella. Blood cultures and ova/parasites pending. Patient remained admitted and continue on ciprofloxacin infusion. 1) Sepsis Ultrasound of the gallbladder demonstrated fatty hepatomegaly, distended gallbladder and without wall thickening trace pericholecystic fluid. Stool culture positive for Salmonella. Stool culture and ova/parasites pending. Total bili, AST, ALT and alk phos elevated. Continue on ciprofloxacin. Continue to monitor his CBC and CMP. 2) Abdominal pain/acute diarrheal ilness CT scan abdomen and pelvis without contrast that was done on December 17, 2020 showed no acute findings. Plan same as above. 3) Elevated LFT AST 305 and ALT 358, both elevated from admission. Total bili 3.9. Alk phos 213. Lipase unremarkable. Plan same as above. 4) Hypertension Stable, continue Norvasc and metoprolol. 5) Hypothyroidism Continue levothyroxine. 6) hyperlipidemia Continue to hold statins and lieu of acute illness 7) Depression Hold paroxetine DVT prophylaxis -low risk, no prophylaxis indicated Patient seen by Lebron Hope PA-C, under the supervision of Dr. Johnston <Radha Johnston - Last Filed: 12/20/20 17:19> Vitals/I&O's: Vital Signs Temp Pulse Resp BP Pulse Ox 98.6 F 86 18 135/77 H 95 12/20/20 15:40 12/20/20 15:40 12/20/20 15:40 12/20/20 15:40 12/20/20 15:40 Oxygen Flow Rate (L/min) 2 Oxygen Delivery Method Room Air Weight: 124 kg Body Mass Index (BMI) 41.5 Intake and Output for Last 24 Hours 12/18/20 12/19/20 12/20/20 23:59 23:59 23:59 Intake Total 2011.5 / 2011.5 2504.00 / 2504.00 Output Total 400 / 400 Balance 1612.5 / 1612.5 2504.00 / 2504.00 Microbiology Past 72 Hours 12/19/20 12:35 Stool Stool Lactoferrin - Final 12/19/20 12:35 Stool Enteric Bacteriology - Final Salmonella Sp. 12/19/20 12:35 Stool C. difficile DNA Amplification - Final 12/19/20 12:40 Urine, Clean Catch Urine Culture - Final Mixed Gram Pos & Gram Neg Org 12/19/20 12:35 Nasal Secretion SARS-CoV-2 Antigen (Rapid) - Final Laboratory Results 12/19/20 12:40: Urine Color Porsha, Urine Clarity Sl. Cloudy, Urine pH 6.5, Ur Specific [place] 1.015, Urine Protein 30 H, Urine Glucose (UA) Normal, Urine Ketones 5 H, Urine Occult Blood 10 H, Urine Nitrite Positive H, Urine Bilirubin 3 H, Urine Urobilinogen 1 H, Ur Leukocyte Esterase 25 H, Urine RBC 0 SEEN, Urine WBC 0-5 SEEN, Ur Squamous Epith Cells 5-10 SEEN, Urine Bacteria RARE, Hyaline Casts 0-5 SEEN, WBC Casts 0-5 SEEN, Urine Mucus 0 SEEN 12/20/20 06:20: WBC 7.3, RBC 4.88, Hgb 13.6, Hct 42.8, MCV 87.7, MCH 27.9, MCHC 31.8 L, RDW Std Deviation 46.4 H, RDW Coeff of Melva 14.3, Plt Count 169, MPV 10.1, Immature Gran % (Auto) 1.200 H, Neut % (Auto) 64.6, Lymph % (Auto) 16.8 L, Bracken % (Auto) 16.6 H, Eos % (Auto) 0.3, Baso % (Auto) 0.5, Absolute Neuts (auto) 4.7, Absolute Lymphs (auto) 1.23, Nucleated RBC % 0 12/20/20 06:20: Sodium 136, Potassium 3.4 L, Chloride 105, Carbon Dioxide 27.0, Anion Gap 4 L, BUN 10, Creatinine 1.18, Estim Creat Clear Calc 72.46, Est GFR (MDRD) Af Amer 84, Est GFR (MDRD) Non-Af 69, BUN/Creatinine Ratio 8.5 L, Glucose 106, Calcium 8.6, Total Bilirubin 3.90 H, AST 305 H, ALT 358 H, Alkaline Phosphatase 213 H, Total Protein 6.9, Albumin 2.7 L, Globulin 4.2, Albumin/Globulin Ratio 0.6 L 12/20/20 06:20: Magnesium 1.9 Current Medications Amlodipine Besylate (Amlodipine 10 Mg Tablet) 10 mg PO DAILY [facility] Last Admin: 12/20/20 09:42 Dose: 10 mg Documented by: Hydralazine HCl (Hydralazine 20 Mg/Ml Vial) 10 mg IV Q6H PRN PRN PRN Reason: for SBP>160 Potassium Chloride/Sodium Chloride () 1,000 mls @ 100 mls/hr IV .Q10H [facility] Last Infusion: 12/20/20 16:40 Dose: 100 mls/hr Documented by: Ciprofloxacin (Cipro) 400 mg in 200 mls @ 200 mls/hr IV Q12 [facility] Last Infusion: 12/20/20 09:42 Dose: Infused Documented by: Ibuprofen (Ibuprofen 400 Mg Tablet) 400 mg PO Q4H PRN PRN PRN Reason: Pain Score 1-10/Temp > 100.7 F Last Admin: 12/20/20 16:01 Dose: 400 mg Documented by: Levothyroxine Sodium (Levothyroxine 125 Mcg Tablet) 125 mcg PO DAILY@0600 [facility] Last Admin: 12/20/20 08:39 Dose: 125 mcg Documented by: Metoprolol Succinate (Metoprolol(Xl)Succ 50 Mg Tablet) 50 mg PO DAILY [facility] Last Admin: 12/20/20 09:42 Dose: 50 mg Documented by: Morphine Sulfate (Morphine 2 Mg/Ml Syringe) 2 mg IV Q3H PRN PRN PRN Reason: Pain Score 6-10 Ondansetron HCl (Ondansetron 4 Mg/2 Ml Vial) 4 mg IV Q8H PRN PRN PRN Reason: NAUSEA/VOMITING Sodium Chloride (0.9% Saline Lock 10 Ml Syringe) 10 - 40 ml IV UD PRN PRN Reason: SALINE FLUSH Last Admin: 12/19/20 17:30 Dose: 10 ml Documented by: STROKE Vital Signs/Narrative: Vital Signs Temp Pulse Resp BP Pulse Ox 12/20/20 15:40 98.6 F 86 18 135/77 H 95 12/20/20 14:59 95 Assessment/Plan This patient was seen in conjunction with BARBIE Soni. I have independently interviewed and examined the patient and reviewed pertinent historical, laboratory, and other data. Please refer to BARBIE Soni's note for his patient's presentation, findings, and recommendations. I have reviewed and his note and concur with his documentation Patient was seen and examined. He admits to feeling better. He is no more dizzy. He has slight abdominal discomfort. He has moved his bowels about 3 times. Still mucoid, nonbloody, loose. He admits to eating steak in a restaurant, [employer] about a week ago. Denied any fever or chills. Physical Exam: Gen: Morbidly obese, comfortable, not pale, not jaundiced CVS:HS I +II, regular, no murmurs RESP: Diminished at lung bases GI: BS present and normal, soft, nontender, no palpable organs EXT:No edema ASSESSMENT: 1. Sepsis secondary to acute Salmonella gastroenteritis 2. Hypokalemia 3. Hypomagnesemia 4. Morbid obesity 5. Hypothyroidism 6. Elevated LFTs 7. Hypertension Plan: Continue on IV Cipro in the light of severe illness with hematochezia and sepsis Replace electrolytes Repeat blood work in a.m. Strict stool charting Home metoprolol, Paxil Inpatient E&M: [id number] [facility] Hosp L2
--- NOTE | 2020-12-20 15:35 | CHAPLAIN ---
Type of Pastoral Visit _x__ Initial Visit ___ Follow-up Visit ___ On-call Visit ___ General Patient Visit ___ Spiritual Assessment ___ Family Conference ___ Bereavement ___ Rapid Response ___ Code Blue ___ Other (describe below) Pastoral Care Referral From _x__ Patient ___ Family ___ Nurse ___ Physician ___ Flight Crew Time Clerk ___ Foundation Maker ___ Other (describe below) Sacrament/Intervention _x__ Active listening ___ Anointing ___ Bahai ___ Bereavement ___ Communion _x__ Catarina exploration ___ _x__ Life review _x__ Prayer ___ Reconciliation ___ Sacrament of Sick _x__ Supportive presence ___ Wedding ___ Other (describe below) Pastoral Comments
[2020-12-20] MEDS: Ibuprofen 400 MG Tablet PO ×2 (16:01→20:58)
[2020-12-20] MEDS: 0.9% Normal Saline 1,000 ML 100 ML IV (18:20)
[2020-12-21 03:04] VITALS: BP 126/67; PULSE 72; RESP 18; TEMP 36.7; O2SAT 96
[2020-12-21 03:10] VITALS: PULSE 69
[2020-12-21] MEDS: 0.9% Normal Saline 1,000 ML 100 ML IV (05:34)
[2020-12-21] MEDS: Levothyroxine 125 MCG Tablet PO (05:34)
[2020-12-21 06:33] LABS: Absolute Lymphocyte Count 1.33 X10^3/uL (0.83-4.51); Basophil# 0.05 X10^3/uL; Basophil% 0.6 % (0-1); Eosinophil# 0.09 X10^3/uL; Eosinophils% 1.1 % (0-5); Hemoglobin 13.1 g/dL (13.0-16.5); Lymphocyte # 1.33 X10^3/ul (0.83-4.51); Mean Corpuscular Hgb 28.4 pg (27.0-32.0); Mean Corpuscular Volume 88.7 fL (80-94); Mean Platelet Vol. 10.2 fl (6.2-12.0); Monocyte# 0.68 X10^3/uL; Monocyte% 8.2 % (0-10); NRBC Flagged by Analyzer 0 % (0-5); Neutrophil # 5.99 X10^3/uL (2.7-7.7); Neutrophil % 71.9 % (47-70); Platelet Count 179 K/mm3 (150-450); RBC Distribution Width CV 14.5 % (11.6-14.6); RBC Distribution Width SD 46.9 fl (35.1-43.9); Red Blood Count 4.62 M/mm3 (4.6-6.2); White Blood Count 8.3 K/mm3 (4.4-11.0)
[2020-12-21 06:50] VITALS: PULSE 79
[2020-12-21 07:00] LABS: BUN 7 mg/dL (7-18); Creatinine, Serum 0.82 mg/dL (0.70-1.30); Glucose 122 mg/dL (74-106)
[2020-12-21 07:01] LABS: ALB/GLOB Ratio 0.7 RATIO (0.9-2.4); AST(SGOT) 178 U/L (15-37); Alanine Aminotransfer ALT/SGPT 321 U/L (16-61); Albumin, Serum 2.6 g/dL (3.2-5.0); Alkaline Phosphatase 189 U/L (45-117); Anion Gap 5 (5-15); BUN/Creat Ratio 8.5 RATIO (10-20); Calcium,Total 8.6 mg/dL (8.5-10.1); Chloride 106 mmol/L (98-107); EST Glomerular Filtration Rate 106 mL/min (>60); Est Glom Filt Rate - Afr Amer 128 mL/min (>60); Estimated Creatinine Clearance 104.27 ml/min; Globulin 3.9 g/dL (2.2-4.2); Potassium 3.2 mmol/L (3.5-5.1); Protein, Total 6.5 g/dL (6.4-8.2); Sodium Level 137 mmol/L (136-145)
[2020-12-21 07:49] LABS: Magnesium 2.1 mg/dL (1.6-2.6)
[2020-12-21 08:09] LABS: HEPATITIS B SURFACE AG Negative (Negative); Hepatitis A IgM Antibody Negative (Negative); Hepatitis B Core AB IgM Negative (Negative)
[2020-12-21 08:32] VITALS: PULSE 88
[2020-12-21] MEDS: Metoprolol(XL)Succ 50 MG Tablet PO (08:32)
[2020-12-21] MEDS: amLODIPine 10 MG Tablet PO (08:32)
[2020-12-21] MEDS: Ciprofloxacin 400 MG/200 ML BAG 200 MG IV (08:33)
[2020-12-21] MEDS: Ibuprofen 400 MG Tablet PO (08:43)
[2020-12-21] MEDS: Potassium Chloride Oral Tablet 20 MEQ 60 MEQ PO (08:44)
[2020-12-21 09:05] VITALS: BP 130/65; PULSE 85; RESP 20; TEMP 37.1; O2SAT 95
--- NOTE | 2020-12-21 10:29 | DCINST_ITS ---
- Discharge Diagnoses Current Active Problems: Current Active and Chronic Problems Sepsis (Acute) Elevated liver enzymes (Acute) Hypertension (Chronic) Hyperlipidemia (Chronic) Depression (Chronic) Obesity (Chronic) Tobacco dependence (Chronic) Hypothyroidism (Chronic) You will use the following diet at home:: No restrictions Your food should be the consistency of: Regular Your liquids should be the consistency of: Regular/Thin Discharge Activity: Return to Normal Activity Return to work on:: 12/26/20 Allergies/Adverse Reactions: Allergies No Known Allergies Allergy (Verified 12/19/20 11:40) Medications to take at Discharge Amlodipine [Norvasc] 10 mg PO DAILY 03/15/18 Atorvastatin Calcium 20 mg PO DAILY 03/15/18 Levothyroxine Sodium 125 mcg PO DAILY 02/08/19 Metoprolol Succinate [Toprol Xl] 50 mg PO DAILY 12/19/20 Paroxetine HCl 30 mg PO DAILY 12/19/20 Ciprofloxacin/Ciprofloxa HCl [Ciprofloxacin ER 500 mg Tablet] 500 mg PO DAILY #10 tbmp.24hr 12/21/20 Potassium Chloride [Klor-Con] 20 meq PO DAILY #5 packet 12/21/20 The following prescriptions were given: Ciprofloxacin/Ciprofloxa HCl [Ciprofloxacin ER 500 mg Tablet] 500 mg PO DAILY #10 tbmp.24hr Transmission Status: Pending to [facility] Potassium Chloride [Klor-Con] 20 meq PO DAILY #5 packet Transmission Status: Pending to [facility] Primary Care Physician: Sonny Price MD [Primary Care Provider] - Please follow up with your Primary Care Physician in: Within the next 2 weeks Test Results: Test results from this visit will be discussed in further detail at your follow- up appointment, if applicable. Proposed Discharge Date: 12/21/20
--- NOTE | 2020-12-21 11:12 | DS.PCM_ITS ---
<Lebron Hope - Last Filed: 12/21/20 11:12> Discharge Date and Diagnosis - Problem List Patient Problems: Active and Suspected Problems Sepsis (Acute) Elevated liver enzymes (Acute) Date of Admission: 12/19/20 Date of Discharge: 12/21/20 - Primary Discharge Diagnosis Acute Problems: Active Problems Sepsis (Acute) Elevated liver enzymes (Acute) - Secondary Discharge Diagnosis Chronic Problems: Chronic Problems Hypertension (Chronic) Hyperlipidemia (Chronic) Depression (Chronic) Obesity (Chronic) Tobacco dependence (Chronic) Hypothyroidism (Chronic) Hospital Course and Treatment Operations: None Summary of Care Provided: Patient is a 50-year-old male who presented to the ED on 12/19/2020 with a chief complaint of fever, abdominal pain and diarrhea x4 days. Patient was admitted for sepsis of unclear etiology and elevated liver enzymes. Ultrasound of the gallbladder demonstrated no gallstones and no gallbladder thickening. General surgery was consulted, and in light of the ultrasound findings patient is not a candidate for surgical intervention. Stool culture demonstrates Salmonella. Blood cultures and ova/parasites pending. Patient reports improvement of symptoms from admission to include fever, abdominal pain and diarrhea. Patient still endorses mild diarrhea, however feels that this is improving as he has been rehydrating orally and parenterally. Liver enzymes are still elevated however appears stable, hepatitis serologies still pending. Recommend follow-up with primary care provider within the next 2 weeks. 1) Sepsis Ultrasound of the gallbladder demonstrated fatty hepatomegaly, distended gallbladder and without wall thickening trace pericholecystic fluid. Stool culture positive for Salmonella. Stool culture and ova/parasites pending. Discharge on ciprofloxacin 500 mg p.o. twice daily x10 days. 2) Abdominal pain/acute diarrheal ilness CT scan abdomen and pelvis without contrast that was done on December 17, 2020 showed no acute findings. Patient continues to have mild diarrhea, however reports this is improving. Potassium today is still low at 3.2, Klor-Con x5 days initiated on discharge. Recommend that patient continues to hydrate continuously throughout the day. 3) Elevated LFT AST 178 and ALT 321, stable. Total bili 1.1, down trending. Alk phos 189, down trending. Lipase unremarkable. Hepatitis serologies still pending. Recommend follow-up with primary care provider within the next 2 weeks 4) Hypertension Stable, continue Norvasc and metoprolol. 5) Hypothyroidism Continue levothyroxine. 6) hyperlipidemia Continue statins on discharge 7) Depression Continue paroxetine on discharge Patient seen by Lebron Hope PA-C, under the supervision of Dr. Johnston Patient Problems: Active and Suspected Problems Sepsis (Acute) Elevated liver enzymes (Acute) Subjective: Patient is a 50-year-old male comfortably resting on his left side in bed, alert and oriented x3. Patient reports continued improvement from yesterday, however still endorses some slight diarrhea. Patient has been hydrating orally and parenterally and feels like he is getting his strength back. Denies fevers, chills, chest pain, shortness of breath and palpitations. Objective: Clinical Impression(s) from Imaging Studies Chest X-Ray 12/19/20 13:15 IMPRESSION: No focal patchy airspace opacities or effusions Mild congestion Electronically Signed: Josafat Stevens DO at 13:27 EDT Tel , Service support , Gallbladder Ultrasound 12/19/20 15:39 IMPRESSION: Fatty hepatomegaly. Distended gallbladder without wall thickening, sludge or stones. Trace pericholecystic fluid. Nonvisualized pancreas secondary to bowel gas. Normal right kidney. Electronically Signed: Arleth Vinson MD at 23:59 EDT , Service support , Microbiology 12/19/20 12:35 Stool Stool Lactoferrin - Final 12/19/20 12:35 Stool Enteric Bacteriology - Final Salmonella Sp. 12/19/20 12:35 Stool C. difficile DNA Amplification - Final 12/19/20 12:40 Urine, Clean Catch Urine Culture - Final Mixed Gram Pos & Gram Neg Org 12/19/20 12:35 Nasal Secretion SARS-CoV-2 Antigen (Rapid) - Final - Physical Exam Vitals/I&O's: Vital Signs Temp Pulse Resp BP Pulse Ox 98.8 F 85 20 H 130/65 H 95 12/21/20 09:05 12/21/20 09:05 12/21/20 09:05 12/21/20 09:05 12/21/20 09:05 Oxygen Flow Rate (L/min) 2 Oxygen Delivery Method Mechanical Ventilator Weight: 273 lb 5.971 oz Body Mass Index (BMI) 41.5 Intake and Output for Last 24 Hours 12/19/20 12/20/20 12/21/20 23:59 23:59 23:59 Intake Total 2011.5 / 2011. 3594.00 / 3594.00 1741.67 / 1741.67 Output Total 400 / 400 Balance 1612.5 / 1612.5 3594.00 / 3594.00 1741.67 / 1741.67 General: Alert, Oriented x3, Cooperative HEENT: Atraumatic, PERRLA, EOMI, Normocephalic Neck: Supple, No JVD, Negative Carotid Bruits Lungs: Clear to auscultation, Normal air movement Cardiovascular: Regular rate, No murmurs Abdomen: Bowel Sounds Present, Soft, Tender - Mild tenderness about the abdomen Extremities: No edema, Capillary Refill Less than 3 Seconds Skin: No rashes, No breakdown Musculoskeletal: No Tenderness to Palpation of Joints or Extremities Neurological: Cranial nerves II-XII grossly intact Psych/Mental Status: Normal Affect, Appropriate Microbiology Past 72 Hours 12/19/20 12:35 Stool Stool Lactoferrin - Final 12/19/20 12:35 Stool Enteric Bacteriology - Final Salmonella Sp. 12/19/20 12:35 Stool C. difficile DNA Amplification - Final 12/19/20 12:40 Urine, Clean Catch Urine Culture - Final Mixed Gram Pos & Gram Neg Org 12/19/20 12:35 Nasal Secretion SARS-CoV-2 Antigen (Rapid) - Final Laboratory Results 12/21/20 06:10: WBC 8.3, RBC 4.62, Hgb 13.1, Hct 41.0, MCV 88.7, MCH 28.4, MCHC 32.0, RDW Std Deviation 46.9 H, RDW Coeff of Melva 14.5, Plt Count 179, MPV 10.2, Immature Gran % (Auto) 2.200 H, Neut % (Auto) 71.9 H, Lymph % (Auto) 16.0 L, [place] % (Auto) 8.2, Eos % (Auto) 1.1, Baso % (Auto) 0.6, Absolute Neuts (auto) 6.0, Absolute Lymphs (auto) 1.33, Nucleated RBC % 0 04/16/21 06:10: Sodium 137, Potassium 3.2 L, Chloride 106, Carbon Dioxide 26.0, Anion Gap 5, BUN 7, Creatinine 0.82, Estim Creat Clear Calc 104.27, Est GFR (MDRD) Af Amer 128, Est GFR (MDRD) Non-Af 106, BUN/Creatinine Ratio 8.5 L, Glucose 122 H, Calcium 8.6, Total Bilirubin 1.10 H, AST 178 H, ALT 321 H, Alkaline Phosphatase 189 H, Total Protein 6.5, Albumin 2.6 L, Globulin 3.9, Albumin/Globulin Ratio 0.7 L 12/21/20 06:10: Magnesium 2.1 Current Medications Amlodipine Besylate (Amlodipine 10 Mg Tablet) 10 mg PO DAILY [facility] Last Admin: 12/21/20 08:32 Dose: 10 mg Documented by: Hydralazine HCl (Hydralazine 20 Mg/Ml Vial) 10 mg IV Q6H PRN PRN PRN Reason: for SBP>160 Ciprofloxacin (Cipro) 400 mg in 200 mls @ 200 mls/hr IV Q12 [facility] Last Infusion: 12/21/20 11:04 Dose: Infused Documented by: Sodium Chloride () 1,000 mls @ 100 mls/hr IV .Q10H [facility] Last Infusion: 12/21/20 11:04 Dose: Infused Documented by: Ibuprofen (Ibuprofen 400 Mg Tablet) 400 mg PO Q4H PRN PRN PRN Reason: Pain Score 1-10/Temp > 100.7 F Last Admin: 12/21/20 08:43 Dose: 400 mg Documented by: Levothyroxine Sodium (Levothyroxine 125 Mcg Tablet) 125 mcg PO DAILY@0600 [facility] Last Admin: 12/21/20 05:34 Dose: 125 mcg Documented by: Metoprolol Succinate (Metoprolol(Xl)Succ 50 Mg Tablet) 50 mg PO DAILY [facility] Last Admin: 12/21/20 08:32 Dose: 50 mg Documented by: Morphine Sulfate (Morphine 2 Mg/Ml Syringe) 2 mg IV Q3H PRN PRN PRN Reason: Pain Score 6-10 Ondansetron HCl (Ondansetron 4 Mg/2 Ml Vial) 4 mg IV Q8H PRN PRN PRN Reason: NAUSEA/VOMITING Sodium Chloride (0.9% Saline Lock 10 Ml Syringe) 10 - 40 ml IV UD PRN PRN Reason: SALINE FLUSH Last Admin: 12/19/20 17:30 Dose: 10 ml Documented by: Discharge Diet: No Restrictions Discharge Activity: Return to Normal Activity Return to work on:: 12/26/20 Home Medications: Medications to take at Discharge Amlodipine [Norvasc] 10 mg PO DAILY 03/15/18 Atorvastatin Calcium 20 mg PO DAILY 03/15/18 Levothyroxine Sodium 125 mcg PO DAILY 02/08/19 Metoprolol Succinate [Toprol Xl] 50 mg PO DAILY 12/19/20 Paroxetine HCl 30 mg PO DAILY 12/19/20 Ciprofloxacin [Cipro] 500 mg PO BID #20 tab 12/21/20 Potassium Chloride [Klor-Con] 20 meq PO DAILY #5 packet 12/21/20 Following Prescriptions Were Given to Patient: Ciprofloxacin [Cipro] 500 mg PO BID #20 tab Transmission Status: Received by [facility] Potassium Chloride [Klor-Con] 20 meq PO DAILY #5 packet Transmission Status: Received by [facility] Primary Care Physician: Sonny Price MD [Primary Care Provider] - Please follow up with your Primary Care Physician in: Within the next 2 weeks Disposition: Home Minutes spent on discharge:: 35 Patient Condition:: Good Medical Necessity - Tobacco Use Smoking Status: Never smoker Tobacco Use: Cigarettes Meaningful Use Info Meaningful Use Diagnoses (Choose all that apply): None applicable <[email or web address] - Last Filed: 12/21/20 14:53> Discharge Date and Diagnosis - Primary Discharge Diagnosis Acute Problems: Active Problems Sepsis (Acute) Elevated liver enzymes (Acute) - Secondary Discharge Diagnosis Chronic Problems: Chronic Problems Hypertension (Chronic) Hyperlipidemia (Chronic) Depression (Chronic) Obesity (Chronic) Tobacco dependence (Chronic) Hypothyroidism (Chronic) Hospital Course and Treatment Summary of Care Provided: This patient was seen in conjunction with BARBIE Soni. I have independently interviewed and examined the patient and reviewed pertinent historical, laboratory, and other data. Please refer to BARBIE Soni's note for his patient's presentation, findings, and recommendations. I have reviewed and his note and concur with his documentation 50-year-old male with past medical history of hypertension, hypothyroidism, morbid obesity who comes in with complaints of fever, abdominal pain and diarrhea ongoing for about 4 days. Patient admits to having gone to a restaurant and eaten steak. He started having symptoms 3 days later. He has had copious amounts of diarrhea. Work-up in the ED was significant for sepsis. He had elevated liver enzymes. Ultrasound of gallbladder showed no gallstones ago bladder thickening. Patient was followed by general surgery and no intervention was recommended. His stool cultures were positive for Salmonella. Patient was started on IV Cipro. He felt generally improved. He continued to have diarrhea but that was a little improved. He had electrolyte imbalances that were replaced. He was discharged to complete a 10-day course of Cipro. He was encouraged to keep himself hydrated. He was also discharged on potassium. He will follow up with his primary care doctor and have repeat blood work done within a week On the day of discharge, patient was met at the bedside with his . He was able to eat. Complaint of slight amount of abdominal discomfort. He denied any fever or chills. He was eager to be discharged. Physical Exam: Gen: Morbidly obese, not pale, not jaundiced CVS:HS I +II, regular, no murmurs RESP: CTA GI: BS present and normal, soft, nontender, no palpable organs EXT:No edema - Physical Exam Vitals/I&O's: Vital Signs Temp Pulse Resp BP Pulse Ox 98.8 F 85 20 H 130/65 H 95 12/21/20 09:05 12/21/20 09:05 12/21/20 09:05 12/21/20 09:05 12/21/20 09:05 Oxygen Flow Rate (L/min) 2 Oxygen Delivery Method Mechanical Ventilator Weight: 124 kg Body Mass Index (BMI) 41.5 Intake and Output for Last 24 Hours 12/19/20 12/20/20 12/21/20 23:59 23:59 23:59 Intake Total 3594.00 / 3594.00 1741.67 / 1741.67 Output Total 400 / 400 Balance 1612.5 / 1612.5 3594.00 / 3594.00 1741.67 / 1741.67 Microbiology Past 72 Hours 12/19/20 12:10 Blood Culture (Wb) - Anticubital Left Blood Culture - Preliminary No growth in 48 hours. 12/19/20 12:50 Blood Culture (Wb) - Anticubital Left Blood Culture - Preliminary No growth in 48 hours. 12/19/20 12:35 Stool Stool Lactoferrin - Final 12/19/20 12:35 Stool Enteric Bacteriology - Final Salmonella Sp. 12/19/20 12:35 Stool C. difficile DNA Amplification - Final 12/19/20 12:40 Urine, Clean Catch Urine Culture - Final Mixed Gram Pos & Gram Neg Org 12/19/20 12:35 Nasal Secretion SARS-CoV-2 Antigen (Rapid) - Final Laboratory Results 12/19/20 13:25: Hepatitis A IgM Ab Negative, Hep Bs Antigen Negative, Hep B Core IgM Ab Negative, Hepatitis C Ab (EIA) <0.1 12/21/20 06:10: WBC 8.3, RBC 4.62, Hgb 13.1, Hct 41.0, MCV 88.7, MCH 28.4, MCHC 32.0, RDW Std Deviation 46.9 H, RDW Coeff of Melva 14.5, Plt Count 179, MPV 10.2, Immature Gran % (Auto) 2.200 H, Neut % (Auto) 71.9 H, Lymph % (Auto) 16.0 L, [place] % (Auto) 8.2, Eos % (Auto) 1.1, Baso % (Auto) 0.6, Absolute Neuts (auto) 6.0, Absolute Lymphs (auto) 1.33, Nucleated RBC % 0 12/21/20 06:10: Sodium 137, Potassium 3.2 L, Chloride 106, Carbon Dioxide 26.0, Anion Gap 5, BUN 7, Creatinine 0.82, Estim Creat Clear Calc 104.27, Est GFR (MDRD) Af Amer 128, Est GFR (MDRD) Non-Af 106, BUN/Creatinine Ratio 8.5 L, Glucose 122 H, Calcium 8.6, Total Bilirubin 1.10 H, AST 178 H, ALT 321 H, Alkaline Phosphatase 189 H, Total Protein 6.5, Albumin 2.6 L, Globulin 3.9, Albumin/Globulin Ratio 0.7 L 12/21/20 06:10: Magnesium 2.1 Inpatient E&M: [id number] Disch Hosp
--- NOTE | 2020-12-21 11:19 | PHA.DC.MC ---
Pharmacy Service has performed discharge medication reconciliation and counseling for this patient. The patient was counseled on the following discharge medications and changes in medications for homegoing were reviewed. 1. POTASSIUM 2. CIPROFLOXACIN The Reason for Use, instructions for use, and potential side effects were reviewed for all new medications. The patient's questions regarding all of their medications were answered. The patient was able to verbally demonstrate an understanding of their discharge medications. Home Medications Amlodipine [Norvasc] 10 mg PO DAILY 03/15/18 Atorvastatin Calcium 20 mg PO DAILY 03/15/18 Levothyroxine Sodium 125 mcg PO DAILY 02/08/19 Metoprolol Succinate [Toprol Xl] 50 mg PO DAILY 12/19/20 Paroxetine HCl 30 mg PO DAILY 12/19/20 Ciprofloxacin [Cipro] 500 mg PO BID #20 tab 12/21/20 Potassium Chloride [Klor-Con] 20 meq PO DAILY #5 packet 12/21/20 The patient's discharge medication list was reviewed for discrepancies and discrepancies were resolved.
[2020-12-21 12:23] LABS: Hep C Antibodies <0.1 s/co ratio (0.0-0.9)
== END 2020-12-21 11:25 | disposition home or self-care (01) | DRG 872 ==
LOC: ED 14:42 → PCU 14:59
PROVIDERS: Physician Assistant; Admitting Provider Hospitalist; Emergency Provider Emergency Medicine; PCP Family Medicine; Visit Provider Internal Medicine
DX: A41.9 Sepsis, unspecified organism (principal); A02.0 Salmonella enteritis; Z68.41 Body mass index [BMI] 40.0-44.9, adult; E87.6 Hypokalemia; E83.42 Hypomagnesemia; Z20.822 Contact with and (suspected) exposure to COVID-19; I10 Essential (primary) hypertension; E78.5 Hyperlipidemia, unspecified; E03.9 Hypothyroidism, unspecified; F32.9 Major depressive disorder, single episode, unspecified; E66.01 Morbid (severe) obesity due to excess calories; F17.210 Nicotine dependence, cigarettes, uncomplicated; Z79.890 Hormone replacement therapy; Z79.899 Other long term (current) drug therapy
CPT/HCPCS: 36415; 71045; 76705; 80053; 80074; 81001; 83605; 83630; 83690; 83735; 84484; 85025; 85610; 85730; 87040; 87086; 87088; 87177; 87209; 87426; 87493; 87506; 93005; 99285; 99406; J7030; A4216; J0744

== ENCOUNTER 2021-05-10 21:47 | Emergency (ER) | payer OTHER, SELFPAY ==
[2021-05-10 21:48] VITALS: BP 153/83; PULSE 115; RESP 24; TEMP 37.2; O2SAT 96; BMI 41.2
[2021-05-10 21:56] VITALS: O2SAT 93
--- NOTE | 2021-05-10 22:04 | EKG12_ITS ---
Test Reason : ABD PAIN Blood Pressure : / mmHG Vent. Rate : 096 BPM Atrial Rate : 096 BPM P-R Int : 130 ms QRS Dur : 100 ms QT Int : 354 ms P-R-T Axes : 068 -05 037 degrees QTc Int : 447 ms Normal sinus rhythm Normal ECG Confirmed by JOVANY REICH, KIARRA ([id number]), news copy editor RUBEN CARVAJAL ([id number]) on 05/14/2021 8:39:53 AM Referred By: PL Confirmed By:NELIA MANZO MD
--- NOTE | 2021-05-10 22:06 | EX.ED.DYSGE1 ---
HPI History of Present Illness Chief Complaint: Abd Pain Informant: patient Narrative Narrative: Patient states that on Thursday he started with a little bit of nausea. He had some malaise. He has had off-and-on fevers subjectively. He has lost taste and smell. The symptoms started Thursday and he was tested for Covid Thursday but it was negative. But he was tested within hours of onset of symptoms. He has been around a family member who has Covid. He is not vaccinated. The symptoms have gotten more myalgias nausea vomiting and some watery diarrhea. No blood in the stool or vomit. He gets abdominal cramping in different areas like comes and goes. It is he has a slight cough but he is a smoker. He is not sure if the cough is just a little more than normal but he is not short of breath. There is no sputum. Past medical history is high blood pressure cholesterol depression and diabetes Medication list reviewed No known drug allergies Only surgery sounds like a lipoma removal but no intra-abdominal surgery. Lives with and is a smoker [facility] Home Medications amlodipine 10 mg PO DAILY 03/15/18 [History Last Taken 12/18/20] atorvastatin 20 mg PO DAILY 03/15/18 [History Last Taken 12/18/20] levothyroxine 125 mcg PO DAILY 02/08/19 [History Last Taken 12/18/20] metoprolol succinate 50 mg PO DAILY 12/19/20 [History Last Taken 12/18/20] paroxetine HCl 30 mg PO DAILY 12/19/20 [History Last Taken 12/18/20] potassium chloride 20 meq PO DAILY #5 packet 12/21/20 [Rx Last Taken Unknown] metformin 1,000 mg PO DAILY 05/10/21 [History Last Taken Unknown] dicyclomine 20 mg PO TID PRN #14 tab 05/11/21 [Rx Last Taken Unknown] ondansetron 4 mg PO Q8H PRN #10 tab 05/11/21 [Rx Last Taken Unknown] Allergy/AdvReac Type Severity Reaction Status Date / Time No Known Allergies Allergy Verified 05/10/21 21:47 Social History Smoking Status: Never smoker ROS ROS ED Constitutional Constitutional ED: Reports chills and fever(s) Eyes Eyes: Denies change in vision ENT ENT ED: Denies rhinorrhea or sore throat Cardiovascular Cardiovascular: Denies chest pain or palpitations Respiratory/Chest Respiratory/Chest: Reports cough; Denies dyspnea or sputum Gastrointestinal Gastrointestinal: Reports abdominal pain, diarrhea, nausea, vomiting and other Details: Diffuse intermittent cramping. No localization of pain. It does come and go. Genitourinary Genitourinary ED: Denies dysuria or hematuria Musculoskeletal Musculoskeletal: Reports myalgias Integumentary Denies rash Neurologic Neurologic: Denies headache(s) Psychiatric Psychiatric: Reports depression Endocrine Endocrinology: Denies polydipsia or polyuria Allergic/Immunologic Allergic/Immunologic ED: Denies urticaria EXAM Physical Exam Const Vital Signs: 05/10/21 21:48 05/10/21 23:06 Temperature 99 F 98.4 F Temperature Source Oral Temporal Pulse Rate 115 H 98 Respiratory Rate 24 H 22 H Blood Pressure 153/83 H 143/80 H Blood Pressure Mean 106 101 Pulse Ox 96 97 Oxygen Delivery Method Room Air Room Air Positive well nourished, well developed and obese General Appearance ED: well developed and NAD Nutritional Appearance: obese HEENT Reports dry mucous membranes Mouth ED: Yes dry mucous membranes Mouth: dry mucous membranes Eyes General Eye ED: Negative for pale conjunctiva Neck no JVD Resp normal respiratory effort and clear to auscultation bilaterally Auscultation: Negative for wheezes Cardio regular rate and regular rhythm GI normal to inspection, nondistended, normoactive bowel sounds and non-tender GI Narrative: Patient is a him is actually quite benign. His obesity but normal bowel sounds. There is no tenderness in any area. Palpation: soft Back/Spine no CVA tenderness Extremity normal to inspection General Extremety ED: Negative for tenderness Neuro oriented x3 Sensorium / Orientation: alert Psych mental status grossly normal Skin no rashes or lesions noted MDM MDM MDM Narrative Medical decision making narrative: Patient's urine is clean. Electrolytes and liver function test show no marked abnormalities. He does have slightly low potassium. His white count was elevated. Covid was negative. Patient states he was feeling better. However, with his elevated white count and symptoms we did do a scan of his abdomen. It showed some nonspecific colitis. This may very well be viral based on his symptoms. He has had no travel and no known source of infectious colitis. He has not been on antibiotics recently. I am afraid if I give him antibiotics for this I may actually worsen it. Normally this will resolve with rest and diet. We will see if we can get a stool sample before he leaves. Lab Data Attestation: I reviewed the patient's lab results. Labs: Laboratory Results - last 24 hr 05/10/21 05/10/21 05/10/21 22:25 22:25 22:56 WBC 15.8 H RBC 4.76 Hgb 13.5 Hct 41.7 MCV 87.6 MCH 28.4 MCHC 32.4 RDW Std Deviation 45.9 H RDW Coeff of Melva 14.3 Plt Count 181 MPV 10.4 Immature Gran % (Auto) 0.600 Neut % (Auto) 87.0 H Lymph % (Auto) 6.8 L [place] % (Auto) 4.9 Eos % (Auto) 0.4 Baso % (Auto) 0.3 Absolute Neuts (auto) 13.7 H Absolute Lymphs (auto) 1.07 Nucleated RBC % 0 Sodium 138 Potassium 3.1 L Chloride 104 Carbon Dioxide 28.0 Anion Gap 6 BUN 9 Creatinine 0.83 Estim Creat Clear Calc 103.01 Est GFR (MDRD) Af Amer 127 Est GFR (MDRD) Non-Af 105 BUN/Creatinine Ratio 10.9 Glucose 128 H Calcium 8.4 L Total Bilirubin 0.50 AST 10 L ALT 26 Alkaline Phosphatase 94 Total Protein 7.2 Albumin 3.2 Globulin 4.0 Albumin/Globulin Ratio 0.8 L Lipase 88 Urine Color Yellow Urine Clarity Clear Urine pH 5.0 Ur Specific [place] 1.020 Urine Protein Negative Urine Glucose (UA) Normal Urine Ketones Negative Urine Occult Blood Negative Urine Nitrite Negative Urine Bilirubin Negative Urine Urobilinogen Normal Ur Leukocyte Esterase Negative Urine RBC 0 SEEN Urine WBC 0 SEEN Ur Squamous Epith Cells 0-5 SEEN Urine Bacteria 0 SEEN Urine Mucus 0 SEEN Radiography Diagnostic Testing: Radiology Impression Chest X-Ray 05/10/21 22:37 IMPRESSION: Degenerative changes, as described above. No demonstrated acute cardiopulmonary process. Electronically Signed: Ronnie Randhawa MD at 23:09 EDT Tel , Service support , EKG Initial EKG: Comments: EKG done for abdominal pain in a 50-year-old. EKG read by me shows sinus rhythm with a rate of 96. No ectopy. No acute ST elevation or depression. AL interval, QRS duration, QTc are normal. This EKG is very similar to 19 December 2020. Discharge Plan Triage Chief Complaint: Abd Pain ED Provider: Wade Childress Dx/Rx/DC Orders Clinical Impression: Colitis, Nausea vomiting and diarrhea Instructions: ED Diarrhea, Unknown Cause Prescriptions: New dicyclomine 20 mg tablet 20 mg PO TID PRN (Reason: cramping) Qty: 14 RF: 0 ondansetron 4 mg tablet,disintegrating 4 mg PO Q8H PRN (Reason: nausea and vomiting) Qty: 10 RF: 0 No Action atorvastatin 20 MG tablet 20 mg PO DAILY RF: 0 amlodipine 10 MG tablet 10 mg PO DAILY RF: 0 levothyroxine 125 MCG tablet 125 mcg PO DAILY RF: 0 metoprolol succinate 50 MG tablet extended release 24 hr 50 mg PO DAILY RF: 0 paroxetine HCl 30 MG tablet 30 mg PO DAILY RF: 0 potassium chloride 20 MEQ packet 20 meq PO DAILY Qty: 5 RF: 0 metformin 1,000 mg Tablet 1,000 mg PO DAILY RF: 0 Primary Care Provider: Sonny Price Referrals: Sonny Price MD [Primary Care Provider] - Disposition Disposition: Home, Self Care
[2021-05-10] MEDS: 0.9% Normal Saline 1,000 ML 1000 ML IV (22:30)
[2021-05-10] MEDS: Ondansetron 4 MG/2 ML Vial IV (22:31)
[2021-05-10 22:36] LABS: Absolute Lymphocyte Count 1.07 X10^3/uL (0.83-4.51); Absolute Neutrophil Count 13.7 X10^3/uL (2.0-7.7); Basophil# 0.04 X10^3/uL; Basophil% 0.3 % (0-1); Eosinophil# 0.07 X10^3/uL; Eosinophils% 0.4 % (0-5); Hematocrit 41.7 % (40-54); Hemoglobin 13.5 g/dL (13.0-16.5); Lymphocyte # 1.07 X10^3/ul (0.83-4.51); Lymphocyte % 6.8 % (19-41); Mean Corp Hgb Conc 32.4 g/dL (32-36); Mean Corpuscular Hgb 28.4 pg (27.0-32.0); Mean Corpuscular Volume 87.6 fL (80-94); Mean Platelet Vol. 10.4 fl (6.2-12.0); Monocyte# 0.78 X10^3/uL; Monocyte% 4.9 % (0-10); NRBC Flagged by Analyzer 0 % (0-5); Neutrophil # 13.71 X10^3/uL (2.7-7.7); Platelet Count 181 K/mm3 (150-450); RBC Distribution Width CV 14.3 % (11.6-14.6); RBC Distribution Width SD 45.9 fl (35.1-43.9); Red Blood Count 4.76 M/mm3 (4.6-6.2); White Blood Count 15.8 K/mm3 (4.4-11.0)
--- NOTE | 2021-05-10 22:37 | RAD_ITS ---
STUDY: X-RAY CHEST REASON FOR EXAM: Male, 50 years old. cough` TECHNIQUE: Single frontal view of the chest. COMPARISON: 12/19/2020 FINDINGS: The lungs are clear and expanded. There is no demonstrated pleural abnormality. Normal size heart. Aortic calcifications. There are diffuse degenerative changes of the visualized thoracic spine. Normal visualized ribs, clavicles, and shoulders. There is no demonstrated abnormality of the visualized soft tissue structures of the upper abdomen. RAD/Chest 1 View (Portable) IMPRESSION: Degenerative changes, as described above. No demonstrated acute cardiopulmonary process. Electronically Signed: Ronnie Randhawa MD at 23:09 EDT Tel , Service support ,
[2021-05-10 22:54] LABS: ALB/GLOB Ratio 0.8 RATIO (0.9-2.4); AST(SGOT) 10 U/L (15-37); Alanine Aminotransfer ALT/SGPT 26 U/L (16-61); Albumin, Serum 3.2 g/dL (3.2-5.0); Alkaline Phosphatase 94 U/L (45-117); Anion Gap 6 (5-15); BUN 9 mg/dL (7-18); BUN/Creat Ratio 10.9 RATIO (10-20); Calcium,Total 8.4 mg/dL (8.5-10.1); Chloride 104 mmol/L (98-107); Creatinine, Serum 0.83 mg/dL (0.70-1.30); EST Glomerular Filtration Rate 105 mL/min (>60); Est Glom Filt Rate - Afr Amer 127 mL/min (>60); Estimated Creatinine Clearance 103.01 ml/min; Glucose 128 mg/dL (74-106); Lipase 88 U/L (73-393); Potassium 3.1 mmol/L (3.5-5.1); Protein, Total 7.2 g/dL (6.4-8.2); Sodium Level 138 mmol/L (136-145)
--- NOTE | 2021-05-10 23:00 | CT_ITS ---
STUDY: CT ABDOMEN AND PELVIS WITH CONTRAST REASON FOR EXAM: Male, 50 years old. pain, N/V/D RADIATION DOSAGE (If Supplied By Facility): CTDIvol = ( 22.06 ) mGy, DLP = ( 1275.05 ) mGycm TECHNIQUE: Transaxial images were obtained from the dome of the diaphragm to the symphysis pubis without oral contrast. IV 100mL Isovue-300 was administered. Sagittal and coronal images were reconstructed. Individualized dose optimization techniques were used for this CT. COMPARISON: None. FINDINGS: The visualized lung bases are unremarkable. The visualized portions of the heart are within normal limits. There is hepatomegaly with diffuse hepatic enlargement. Normal gallbladder and extrahepatic biliary system. There is mild splenomegaly. Normal pancreas. Normal bilateral adrenal glands. Normal right kidney. There is a 1.4 cm structure within LEFT kidney slightly more dense than anticipated for simple cyst. Evaluation of bowel limited by lack of oral contrast. Gastric wall thickening could be related to underdistention versus gastritis in the appropriate clinical setting. There is no dilated loops of bowel by CT criteria. There is thickening involving the cecum, ascending colon and proximal transverse colon with adjacent stranding. The appendix is visualized and appears normal. Normal abdominal aorta. Normal inferior vena cava. Normal retroperitoneum. There is mild bladder wall thickening however the bladder is decompressed. There are prostatic calcifications. There is a small umbilical hernia containing fat. There is multilevel degenerative changes of the visualized spine. CT/Abdomen/Pelvis W IV Cont ONLY IMPRESSION: Hepatosplenomegaly. There is colonic wall thickening involving the cecum as well as the ascending and very proximal aspect of the transverse colon. There is some adjacent stranding. Findings concerning for colitis. Correlate clinically. Follow-up is recommended to ensure resolution and to exclude any underlying mass. No CT evidence for acute appendicitis. There is a structure within the LEFT kidney which could represent a hyperdense/proteinaceous cyst. However this can be further characterized with ultrasound. On a nonemergent outpatient basis. Gastric wall is mildly thickened which could be related to underdistention versus mild gastritis in the appropriate clinical setting. Bladder wall is mildly thickened however the bladder is decompressed. If there is concern for infectious process correlate with urinalysis. Nonspecific pelvic and iliac chain subcentimeter short axis lymph nodes. Other findings as above. Electronically Signed: Ronnie Randhawa MD at 0:36 EDT Tel , Service support ,
[2021-05-10 23:03] LABS: Bacteria 0 SEEN /hpf (None Seen); Mucous, Urine 0 SEEN /hpf (<or=2+); Red Blood Cells-Urine 0 SEEN /hpf (0-5); White Blood Cells 0 SEEN /hpf (0-5)
[2021-05-10 23:06] VITALS: BP 143/80; PULSE 98; RESP 22; TEMP 36.9; O2SAT 97
[2021-05-10 23:27] LABS: Color, Urine Yellow (Yellow); Glucose, Dipstick Normal (Normal); Ketone-Dipstick Negative (Negative); Leukocyte Esterase-Dipstick Negative /ul (Negative); Nitrite-Dipstick Negative (Negative); Occult Blood-Urine Negative /ul (Negative); Protein-Dipstick Negative (Negative); Urine Bilirubin Dipstick Negative (Negative); Urine Clarity Clear (Clear); Urine Urobilinogen Normal (Normal)
[2021-05-10 23:34] LABS: Squamous Epithelial Cells - UA 0-5 SEEN /hpf (0-5)
[2021-05-11 00:29] VITALS: BP 141/77; PULSE 74; RESP 16; TEMP 36.3; O2SAT 96
[2021-05-11 00:30] VITALS: PULSE 74
[2021-05-11 01:52] VITALS: BP 165/98; PULSE 78; RESP 16; O2SAT 95
== END 2021-05-11 01:58 | disposition home or self-care (01) ==
PROVIDERS: Emergency Provider Emergency Medicine; PCP Family Medicine
DX: K52.9 Noninfective gastroenteritis and colitis, unspecified (principal); R11.2 Nausea with vomiting, unspecified; E66.9 Obesity, unspecified; I10 Essential (primary) hypertension; E78.00 Pure hypercholesterolemia, unspecified; E11.9 Type 2 diabetes mellitus without complications; F32.9 Major depressive disorder, single episode, unspecified; Z79.84 Long term (current) use of oral hypoglycemic drugs; Z79.899 Other long term (current) drug therapy
CPT/HCPCS: 71045; 74177; 80053; 81001; 83690; 85025; 87426; 93005; 96361; 96374; 99283; J7030; Q9967; A4216; J2405

== ENCOUNTER → 2022-10-22 | Outpatient (CLI) | payer OTHER, SELFPAY ==
--- NOTE | 2022-10-22 10:02 | ECHOCS_ITS ---
Reason For Study: CHEST PAIN Procedure This was a 2D Doppler, Color Flow transthoracic echocardiogram. The study was technically difficult. D/T body habitus. Contrast injection was performed. Left Ventricle Normal LV size. The left ventricular ejection fraction is 60 %. Right Ventricle Normal right ventricle. Atria Normal left atrium. The right atrium is not well visualized. Mitral Valve Mitral valve not well visualized. Tricuspid Valve The tricuspid valve is not well visualized. Aortic Valve Normal aortic valve. Pulmonic Valve The pulmonic valve is not well visualized. Great Vessels The aortic root is not well visualized. Pericardium/Pleural No pericardial effusion. Medication 22 gauge I.V. with prn adaptor inserted into right arm. Diluted definity 3.0ml given slow IV push to enhance endocardial definition. MMode/2D Measurements & Calculations LVIDd: 5.5 cm FS: 29.2 % Ao root diam: 3.8 cm LVIDs: 3.9 cm RVDd: 3.6 cm LAV(MOD-bp): 72.4 ml LVAd ap4: 24.7 cm2 LVAd ap2: 20.0 cm2 LAV(MOD-bp) Indexed: 30.1 ml/m2 LVLd ap4: 6.8 cm LVLd ap2: 6.5 cm LAV(MOD-sp2): 84.9 ml EDV(MOD-sp4): 75.8 ml EDV(MOD-sp2): 50.9 ml LAV(MOD-sp4): 61.0 ml EDV(sp4-el): 76.4 ml EDV(sp2-el): 52.0 ml LVAs ap4: 15.3 cm2 LVAs ap2: 12.1 cm2 LVLs ap4: 5.5 cm LVLs ap2: 5.8 cm ESV(MOD-sp4): 35.6 ml ESV(MOD-sp2): 21.7 ml ESV(sp4-el): 36.3 ml ESV(sp2-el): 21.4 ml EF(MOD-sp4): 53.0 % EF(MOD-sp2): 57.4 % EF(sp4-el): 52.5 % SV(MOD-sp4): 40.2 ml SV(MOD-sp2): 29.2 ml SV(sp4-el): 40.1 ml LA A4 area: 20.1 cm2 LA dimension(2D): 4.0 cm RA A4 area: 13.3 cm2 Time Measurements MV dec time: 0.20 sec Doppler Measurements & Calculations MV E max braden: 97.0 cm/sec Lat Peak E' Braden: 6.9 cm/sec Med Peak E' Braden: 8.2 cm/sec MV A max braden: 89.3 cm/sec E/E' lat: 14.0 E/E' med: 11.8 MV E/A: 1.1 Ao V2 max: 155.4 cm/sec LV V1 max: 130.6 cm/sec MV dec slope: 486.1 cm/sec2 Ao max P.7 mmHg LV V1 max P.8 mmHg Ao V2 mean: 108.0 cm/sec LV V1 mean P.4 mmHg Ao mean P.4 mmHg LV V1 mean: 86.1 cm/sec Ao V2 VTI: 31.4 cm LV V1 VTI: 26.1 cm AV (velocity ratio): 0.83 PA V2 max: 93.0 cm/sec PA V2 mean: 70.6 cm/sec ECHO/Echo Complete W/ Contrast Interpretation Summary The left ventricular ejection fraction is 60 %. The study was technically difficult. Ordering Physician: Ashley Patton Referring Physician: Sonny Price Performed By: Larissa Knox, IRIS, RVT
== END | disposition home or self-care (01) ==
LOC: CVS 10:01
PROVIDERS: PCP Family Medicine; Visit Provider Internal Medicine Cardiovascular Disease
DX: R07.9 Chest pain, unspecified (principal)
CPT/HCPCS: 93306; Q9957; A4216; C8929

== ENCOUNTER 2022-10-24 13:29 | Observation (INO) | payer OTHER, SELFPAY ==
[2022-10-23 09:08] VITALS: BMI 44.6
--- NOTE | 2022-10-24 13:28 | CL.I_ITS ---
Patient Name: ROMEL LOPES Study Date: 10/24/2022 Performing: Ashley Patton MD Ht: 68 inches 172.72 cm : 1970 Wt: 294.01 lbs 133.36 kg Age: 51 Gender: male BSA: 2.41 PROCEDURE(S) PERFORMED DC02-(80553)LHC/COR IC12-(40154/C9600)KESHAV W/WO PTCA, SINGLE CORONARY ARTERY CLINICAL PROFILE AND CO-MORBIDITIES Indications: Suspected CAD Heart Failure: None Angina Classification Anginal Classification w/in 2 Weeks: CCS III CAD Presentations: Stable angina. CONCLUSIONS 80% Prox, 70% Mid LAD 65% Prox OM1 50% Mid RPDA; 70% distal RPLV (small 1.5 mm vessel) Successful KESHAV Mid LAD using Resolute Elvia 2.5x22 mm, post-dilated proximally using 3.0 mm balloon Successful KESHAV Prox LAD using Resolute Ventura 3.0x15 mm, post-dilated using 3.25 mm balloon, optimized proximally using 3.5 mm balloon RECOMMENDATIONS ASA Indefinitley Plavix for at least 12 months DESCRIPTION OF PROCEDURE The patient arrived to the procedure lab. The risks and benefits of the procedure as well as a full description of our services here and lack of surgical backup were fully explained to the patient and/or their significant other prior to the catheterization. The Timeout was completed, verifying the correct patient and procedure. The patient's procedural site was prepped and draped in the usual fashion. Local anesthetic was given subcutaneously to right radial region with Lidocaine 2%. Using a modified Seldinger technique, arterial access was obtained via the right radial artery, a 6Fr sheath was inserted.. Left Coronary Artery selective angiography was performed in multiple views using a 5 Fr. 4.0 Heflin catheter. Right Coronary Artery selective angiography was then performed in multiple views using a 5 Fr. 4.0 Heflin catheter. Right Coronary Artery selective angiography was then performed in multiple views using a 5 Fr. JR 4 catheterThe images were reviewed and options discussed. A decision was then made to proceed with an Intervention, IVUS or other adjunct procedure. XB 3.0 Guide catheter was inserted and engaged into the LCA. RUNTHROUGH Guide wire was advanced to the LAD. 2.5X22 ELVIA Drug Eluting stent was inserted. Drug Eluting stent was advanced across the lesion in the LAD, mid. 2.5X15 NC EUPHORA Balloon catheter was inserted post stent. 3.0X12 NC EUPHORA Balloon catheter was inserted post stent. 3.0X15 ELVIA Drug Eluting stent was inserted. Drug Eluting stent was advanced across the lesion in the LAD, proximal. Angiogram performed post stent deployment. 3.25X12 NC EMERGE Balloon catheter was inserted post stent. 3.5X6 NC EUPHORA Balloon catheter was inserted post stent. Angiogram performed post balloon dilatation. The arterial sheath was pulled and a TR Band was applied for hemostasis-9 CC AIR CORONARY ANGIOGRAPHY DOMINANCE: Right Dominant LEFT HEART ASSESSMENT Left Ventricular Ejection Fraction: Not assessed LEFT MAIN: Angiographically normal LEFT ANTERIOR DESCENDING ARTERY: LAD: Tubular 80% Proximal lesion in LAD Tubular 70% Mid lesion in LAD OM 1: Tubular 65% Proximal lesion in 1st OM RT PDA: Tubular 50% Mid lesion in Right PDA INTERVENTION INFORMATION LESION SITE: LAD (Mid) Lesion Complexity: Non-High/Non-C Pre Stenosis: 70 % Pre intervention KATHY flow: 3 PROCEDURE: Drug Eluting Stent with post dilatation Post Stenosis: 0 % Post intervention KATHY flow: 3 Lesion Devices: Terumo .014 180cm Runthrough Extra Floppy straight Cordis 6 Fr XB3.0 100cm Guide Catheter Medtronic Resolute Elvia RX KESHAV 2.5x22 Medtronic NC EUPHORA RX 2.5x15 BALLOON Medtronic NC EUPHORA RX 3.0x12 BALLOON LESION SITE: LAD (Proximal) Lesion Complexity: Non-High/Non-C Pre Stenosis: 80 % Pre intervention KATHY flow: 3 PROCEDURE: Drug Eluting Stent with post dilatation Post Stenosis: 0 % Post intervention KATHY flow: 3 Lesion Devices: Terumo .014 180cm Runthrough Extra Floppy straight Cordis 6 Fr XB3.0 100cm Guide Catheter Medtronic Resolute Ventura RX KESHAV 3.0x15 Kwadwo Sci NC EMERGE MR 3.25x12 BALLOON Medtronic NC EUPHORA RX 3.5x06 BALLOON COMPLICATIONS No Complications PROCEDURE MEDICATIONS Versed 2 mg IV Fentanyl 50 mcg IV Oxygen: 2 L/min via nasal cannula Baby Aspirin (81mg) 1 Tabs PO 10/24/2022 09:48:47 Brilinta 180 mg PO @ 10/24/2022 12:31:18 Heparin given IA 10/24/2022 12:16:55 Heparin 8000 unit(s) IV 10/24/2022 12:31:08 Heparin 2000 unit(s) IV 10/24/2022 12:49:47 Nitro 200 mcg IC 10/24/2022 12:44:25 Nitro 200 mcg IC 10/24/2022 12:44:25 Verapamil 2.5mg, Ntg 200mcgs, 2000 units of Heparin given IA 10/24/2022 12:16:55 IV Bolus: .9 NaCl 250 ml total 10/24/2022 12:17:37 IV Fluids: .9 NaCl decreased to 100 ml/hr 10/24/2022 12:42:14 SUMMARY OF HEMODYNAMIC DATA Time AIR REST ECG 09:47:29 AO 89/54 (70) SA 12:18:52 AO 132/85 (108) 12:26:09 AIR REST 13:20:15 Signed By Ashley Patton MD On 10/24/2022 13:27:53 Ashley Patton MD
--- NOTE | 2022-10-24 14:06 | CRPHASE1 ---
Patient Communication Former Patient:: Phase I Guide to Cardiac Rehab Given to Patient:: Yes Cardiac Rehab Facility Choice List Given to Patient:: Yes Proposal Review Analyst:: Ashley Patton Cardiac Rehabilitation Info Cardiac Rehabilitation Program Information: Cardiac Rehab The cardiac rehab team at [facility] consists of highly skilled exercise physiologists, nurses, respiratory therapists and physicians working together with you. Our purpose is to help you have a full recovery and achieve the goals you set for yourself. Over the years many of our patients have returned to activities they assumed they would never do again! We can help restore your confidence and motivation to make lifestyle changes that can have a significant impact on your health and quality of life! We can help answer questions and concerns you may have about exercise, lifestyle, medications, diet, stress and anxiety which are common following a hospitalization. WE monitor ECG and vital signs during exercise and discuss your progress with you and report to your physician(s). Cardiac Rehab is proven to help reduce readmissions, improve functional capacity and lower recurrence of problems with your heart. Our Cardiac Rehab program is Certified by the [employer]monary [employer] (AACVPR) and Accredited by the [employer] through our [facility]. You can contact us at . We invite you to call us with your questions or to get started in our program. If you have other questions or concerns be sure to ask your physician/provider during your follow-up visit. WE look forward to seeing you!
--- NOTE | 2022-10-24 14:07 | CRPH1.INSTRU ---
General Education CAD and cardiac anatomy and function:: Patient communicates acknowledgment Explanation of diagnoses and procedures:: Patient communicates acknowledgment Sign/Symptoms of VA:: Patient communicates acknowledgment Antiplatelet therapy: Patient communicates acknowledgment Proper use of NTG-SL: Patient communicates acknowledgment Emergency procedures and activation of EMS: Patient communicates acknowledgment Compliance of all prescribed medications: Patient communicates acknowledgment Smoking Patient Nicotine/Smoking Risk Factors Are:: Cigarettes Recommendations Include:: Smoking cessation strategies/Smoking packet, Participation in a smoking cessation program Nicotine/Smoking Response Code:: Patient communicates acknowledgment Dyslipidemia Recommendations Include:: Lipid profile not available Dyslipidemia Response Code:: Patient communicates acknowledgment Overweight/Obesity Patient Overweight/Obesity Risk Factors Are:: Obesity - > or = 30 Recommendations Include:: Weight loss of 5-10%, Reduced calorie diet, Exercise 5-7 times/week Overweight/Obesity:: Patient communicates acknowledgment Hypertension Recommendations Include:: Maintain BP <130/85 Hypertension:: Patient communicates acknowledgment Heart Disease Patient Heart Disease Risk Factors Are:: Family history of heart disease < 65 years old Recommendations Include:: Educated family members of their risk Heart Disease Response Code:: Patient communicates acknowledgment Diabetes Patient Diabetes Risk Factors Are:: Elevated blood sugars Recommendations Include:: Maintain fasting blood sugars 70-110 md/dL, Maintain HgbA1c of 6% or less, Monitor blood sugar as prescribed, Diabetic dietary guidelines, Decrease/maintain body weight Diabetes:: Patient communicates acknowledgment Metabolic Syndrome Patient Metabolic Syndrome Risk Factors Are [3 of 5]:: Fasting blood sugar > 100 mg/dL, Hypertension Recommendations Include:: Reinforce compliance to risk factor modifications Metabolic Syndrome Response Code:: Patient communicates acknowledgment Sedentary Patient Sedentary Risk Factors Are:: Lack of regular exercise Recommendations Include:: Aerobic exercise 5-7 times/week for 20-30 minutes continuously, Benefits of regular exercise, Discussed home walking program, Monitored Outpatient Cardiac Rehab Sedentary Response Code:: Patient communicates acknowledgment Stress Recommendations Include:: Identification of stressors, and assessment of coping skills, Stress management techniques Stress Response Code:: Patient communicates acknowledgment
[2022-10-24 14:45] VITALS: BP 146/90; PULSE 64; RESP 18; TEMP 36.9; O2SAT 97
[2022-10-24 14:56] VITALS: BMI 44.7
[2022-10-24 15:00] VITALS: BP 141/87; PULSE 65; RESP 18; O2SAT 97
[2022-10-24 15:13] VITALS: BP 138/89; PULSE 60; RESP 18; O2SAT 98
[2022-10-24 15:30] VITALS: BP 141/80; PULSE 65; RESP 18; TEMP 36.9; O2SAT 97
[2022-10-24] MEDS: 0.9% Normal Saline 1,000 ML 150 ML IV (15:31)
--- NOTE | 2022-10-24 15:52 | DCINST_ITS ---
Discharge Instructions Diet Discharge Diet: 1999 Calorie Control Diet Activity Discharge Activity: Return to Normal Activity Follow Up Care Please Follow Up With: Ashely Patton MD When: 2 weeks Test Results: Test results from this visit will be discussed in further detail at your follow- up appointment, if applicable. Discharge Plan Admission Attending Provider: Ashley Patton Primary Care Provider: Sonny Prcie Discharge Orders/Prescriptions Prescriptions: New clopidogrel 75 mg Tablet 75 mg PO DAILY Qty: 60 5RF Continued metoprolol succinate 50 mg tablet extended release 24 hr 100 mg PO DAILY isosorbide dinitrate 5 mg tablet 5 mg PO BID Qty: 60 3RF Rx Instructions: allow nitrate-free interval of 12-14 hrs per 24-hr period aspirin [Adult Aspirin Regimen] 81 mg tablet,delayed release (DR/EC) 81 mg PO DAILY Qty: 90 2RF atorvastatin 40 mg tablet 40 mg PO QHS paroxetine HCl 40 mg tablet 40 mg PO DAILY nystatin-triamcinolone Cream 1 applic topical .COMPLEX Rx Instructions: 1 applic topically apply sparingly to groin and penile rash twice daily for irritation/infection up to 2 weeks and then take a week off; amlodipine 10 MG tablet 10 mg PO DAILY Label Comments: TAKE 1 TABLET BY MOUTH EVERY DAY levothyroxine 125 MCG tablet 125 mcg PO DAILY Label Comments: TAKE 1 TABLET EVERY DAY Held metformin 500 mg tablet 1,000 mg PO BID Hold Instructions: Resume on 10/26/22. Referrals / Follow Up: Ashley Patton MD [Med Staff - Active Staff] - 11/05/22 11:30 am Sonny Price MD [Primary Care Provider] - Disposition Disposition (needs filled in before D/C Order can be placed): Home, Self Care
[2022-10-24 16:11] LABS: ACT Activated Clotting Time 257 sec (74-137)
[2022-10-24 16:11] LABS: ACT Activated Clotting Time 143 sec (74-137)
[2022-10-24 16:12] LABS: ACT Activated Clotting Time 263 sec (74-137)
[2022-10-24 21:28] VITALS: BP 120/78; PULSE 72; RESP 18; TEMP 36.6; O2SAT 97
[2022-10-24] MEDS: Nystatin/Triamcin Cream Tube 1 APPLIC TOPICAL (21:31)
[2022-10-24] MEDS: Atorvastatin Calcium 40 MG Tablet PO (21:32)
[2022-10-24] MEDS: Isosorbide DN 10 MG Tablet 5 MG PO (21:32)
[2022-10-24] MEDS: Clopidogrel Bisulfate 300 MG Tablet PO (21:36)
[2022-10-24 22:44] VITALS: O2SAT 97
[2022-10-25 03:22] VITALS: BP 124/77; PULSE 66; RESP 16; TEMP 36.4; O2SAT 97
--- NOTE | 2022-10-25 04:51 | EKG12_ITS ---
Test Reason : AM Blood Pressure : / mmHG Vent. Rate : 066 BPM Atrial Rate : 066 BPM P-R Int : 160 ms QRS Dur : 104 ms QT Int : 430 ms P-R-T Axes : 071 019 014 degrees QTc Int : 450 ms Normal sinus rhythm Incomplete right bundle branch block Borderline ECG When compared with ECG of 10-MAY-2021 22:13, Nonspecific T wave abnormality now evident in Anterior leads Confirmed by AKIRA REICH, IDALMIS ([id number]), dictionary editor RUBEN CARVAJAL ([id number]) on 10/28/2022 11:12:23 AM Referred By: Confirmed By:IDALMIS CHAMPION MD
[2022-10-25 05:15] LABS: Hematocrit 39.9 % (40-54); Hemoglobin 12.6 g/dL (13.0-16.5); Mean Corp Hgb Conc 31.6 g/dL (32-36); Mean Corpuscular Hgb 27.6 pg (27.0-32.0); Mean Corpuscular Volume 87.5 fL (80-94); Mean Platelet Vol. 9.8 fl (6.2-12.0); Platelet Count 183 K/mm3 (150-450); RBC Distribution Width CV 14.1 % (11.6-14.6); RBC Distribution Width SD 45.1 fl (35.1-43.9); Red Blood Count 4.56 M/mm3 (4.6-6.2); White Blood Count 10.3 K/mm3 (4.4-11.0)
[2022-10-25 05:42] LABS: ALB/GLOB Ratio 0.8 RATIO (0.9-2.4); AST(SGOT) 28 U/L (15-37); Alanine Aminotransfer ALT/SGPT 53 U/L (16-61); Albumin, Serum 3.1 g/dL (3.2-5.0); Alkaline Phosphatase 94 U/L (45-117); Anion Gap 8 (5-15); BUN 16 mg/dL (7-18); BUN/Creat Ratio 18.5 RATIO (10-20); Calcium,Total 8.8 mg/dL (8.5-10.1); Chloride 104 mmol/L (98-107); Creatinine, Serum 0.86 mg/dL (0.70-1.30); EST Glomerular Filtration Rate 99 mL/min (>60); Est Glom Filt Rate - Afr Amer 120 mL/min (>60); Estimated Creatinine Clearance 98.31 ml/min; Globulin 3.7 g/dL (2.2-4.2); Glucose 210 mg/dL (74-106); Potassium 3.9 mmol/L (3.5-5.1); Protein, Total 6.8 g/dL (6.4-8.2); Sodium Level 139 mmol/L (136-145)
[2022-10-25] MEDS: Levothyroxine 125 MCG Tablet PO (06:05)
[2022-10-25 08:21] VITALS: O2SAT 97
--- NOTE | 2022-10-25 10:00 | EKG12_ITS ---
Test Reason : POST PCI Blood Pressure : / mmHG Vent. Rate : 064 BPM Atrial Rate : 064 BPM P-R Int : 146 ms QRS Dur : 106 ms QT Int : 442 ms P-R-T Axes : 061 029 034 degrees QTc Int : 455 ms Normal sinus rhythm Normal ECG No previous ECGs available Confirmed by AKIRA REICH, IDALMIS ([id number]), make up editor RUBEN CARVAJAL ([id number]) on 10/28/2022 11:03:24 AM Referred By: JEVON Confirmed By:IDALMIS CHAMPION MD
[2022-10-25 10:03] VITALS: BP 140/84; PULSE 64; RESP 16; TEMP 36.4; O2SAT 97
[2022-10-25] MEDS: Aspirin E.C. 81 MG Tablet PO (10:10)
[2022-10-25] MEDS: Nystatin/Triamcin Cream Tube 1 APPLIC TOPICAL (10:10)
[2022-10-25] MEDS: Isosorbide DN 10 MG Tablet 5 MG PO (10:11)
[2022-10-25] MEDS: amLODIPine 10 MG Tablet PO (10:14)
[2022-10-25] MEDS: Paroxetine 20 MG Tablet 40 MG PO (10:15)
[2022-10-25] MEDS: Clopidogrel Bisulfate 75 MG Tablet PO (10:15)
[2022-10-25 10:16] VITALS: BP 140/84; PULSE 64
[2022-10-25] MEDS: Metoprolol(XL)Succ 100 MG Tablet PO (10:16)
--- NOTE | 2022-10-25 10:23 | PCM.PN.CARD ---
Subjective Subjective Denies any complaints. Ambulating. No angina. Objective Data Vital Signs: Vital Signs Temp Pulse Resp BP Pulse Ox O2 Del Method O2 Flow Rate 97.5 F L 64 16 140/84 H 97 Room Air 3 10/25/22 10:03 10/25/22 10:16 10/25/22 10:03 10/25/22 10:16 10/25/22 10:03 10/25/22 10:03 10/24/22 22:44 Oxygen Flow Rate (L/min) 3 Oxygen Delivery Method Room Air Weight: 294 lb 1.546 oz Body Mass Index (BMI) 44.7 Intake & Output: Intake and Output for Last 24 Hours 10/23/22 10/24/22 10/25/22 23:59 23:59 23:59 Intake Total 1500 / 1500 120 / 120 Balance 1500 / 1500 120 / 120 Lab / Micro Data Attestation: I reviewed the patient's lab results. Result Diagrams: 10/25/22 03:45 10/25/22 03:45 Labs: Laboratory Results - last 24 hr 10/24/22 12:35: Activated Clotting Time 143 H 10/24/22 12:40: Activated Clotting Time 257 H 10/24/22 13:15: Activated Clotting Time 263 H 10/25/22 03:45: WBC 10.3, RBC 4.56 L, Hgb 12.6 L, Hct 39.9 L, MCV 87.5, MCH 27.6, MCHC 31.6 L, RDW Std Deviation 45.1 H, RDW Coeff of Melva 14.1, Plt Count 183, MPV 9.8 10/25/22 03:45: Sodium 139, Potassium 3.9, Chloride 104, Carbon Dioxide 27.0, Anion Gap 8, BUN 16, Creatinine 0.86, Estim Creat Clear Calc 98.31, Est GFR (MDRD) Af Amer 120, Est GFR (MDRD) Non-Af 99, BUN/Creatinine Ratio 18.5, Glucose 210 H, Calcium 8.8, Total Bilirubin 0.40, AST 28, ALT 53, Alkaline Phosphatase 94, Total Protein 6.8, Albumin 3.1 L, Globulin 3.7, Albumin/Globulin Ratio 0.8 L Rhythm Strip Rhythm Strip: Sinus Rhythm Cardiology Labs/Tests 10/25/22 03:45: WBC 10.3, RBC 4.56 L, Hgb 12.6 L, Hct 39.9 L, MCV 87.5, MCH 27.6, MCHC 31.6 L, Plt Count 183, MPV 9.8 10/25/22 03:45: Sodium 139, Potassium 3.9, Chloride 104, Carbon Dioxide 27.0, Anion Gap 8, BUN 16, Creatinine 0.86, Est GFR (MDRD) Af Amer 120, Est GFR (MDRD) Non-Af 99, BUN/Creatinine Ratio 18.5, Glucose 210 H, Calcium 8.8, Total Bilirubin 0.40 Rhythm: EKG: ECHO: Stress Test: Cardiac Cath: PCI: CT Surgery: Holter monitor: EPS: PPM: CXR: Chest CT Scan: Assessment & Plan Assessment/Plan (1) CAD (coronary artery disease): PLAN: Status post drug-eluting stents to the proximal and mid LAD. Stable. Asymptomatic. Continue aspirin lifelong. Clopidogrel treatment for at least 1 year. (2) Hyperlipidemia: PLAN: On atorvastatin. (3) Essential hypertension: PLAN: Continue to monitor. (4) Type 2 diabetes mellitus: PLAN: As per PCP. Resume metformin tomorrow. (5) Obesity: PLAN: Lose weight. (6) JOSIAH (obstructive sleep apnea): PLAN: Uses BiPAP.
== END 2022-10-25 13:19 | disposition home or self-care (01) ==
LOC: PCU 15:08 → CLSP 17:50 → PCU 17:50
PROVIDERS: Admitting Provider Internal Medicine Cardiovascular Disease; PCP Family Medicine; Visit Provider Internal Medicine Cardiovascular Disease
DX: I25.119 Atherosclerotic heart disease of native coronary artery with unspecified angina pectoris (principal); Z68.44 Body mass index [BMI] 60.0-69.9, adult; E11.9 Type 2 diabetes mellitus without complications; I10 Essential (primary) hypertension; E78.5 Hyperlipidemia, unspecified; Z79.899 Other long term (current) drug therapy; Z79.82 Long term (current) use of aspirin; Z79.84 Long term (current) use of oral hypoglycemic drugs; G47.33 Obstructive sleep apnea (adult) (pediatric); Z82.49 Family history of ischemic heart disease and other diseases of the circulatory system; F17.200 Nicotine dependence, unspecified, uncomplicated; E66.9 Obesity, unspecified; R55 Syncope and collapse; I45.10 Unspecified right bundle-branch block; R06.02 Shortness of breath; R42 Dizziness and giddiness; R07.89 Other chest pain
CPT/HCPCS: 36415; 80053; 85027; 85347; 92928; 93005; 93454; 96360; 96361; 99152; 99153; 99221; C1725; J7030; J7040; Q9967; C1769; C1874; C1887; C1894; C9600; G0378

== ENCOUNTER 2023-01-31 07:55 | Emergency (ER) | payer OTHER, SELFPAY ==
[2023-01-31 07:56] VITALS: BP 174/108; PULSE 74; RESP 16; TEMP 36.2; O2SAT 98; BMI 42.8
--- NOTE | 2023-01-31 08:02 | CT_ITS ---
STUDY: CT ABDOMEN AND PELVIS WITHOUT CONTRAST REASON FOR EXAM: Male, 52 years old. Left flank pain today, hx kidney stones, hypertension, diabetes, benign fatty tumor removed from abdomen. RADIATION DOSAGE (If Supplied By Facility): CTDIvol = ( 23.92 ) mGy, DLP = ( 1309.03 ) mGycm TECHNIQUE: Transaxial images were obtained from the dome of the diaphragm to the symphysis pubis without oral contrast, and without intravenous contrast. Sagittal and coronal images were reconstructed. Individualized dose optimization techniques were used for this CT. COMPARISON: May 10, 2021 FINDINGS: The visualized lung bases are unremarkable. The visualized portions of the heart are within normal limits. There is hepatomegaly with diffuse hepatic enlargement. There is decreased attenuation of the liver consistent with steatosis. Normal gallbladder and extrahepatic biliary system. Normal spleen. Normal pancreas. Normal bilateral adrenal glands. Normal right kidney. There is mild left hydronephrosis with perinephric stranding. There is a 0.3 cm left distal ureteral stone. Normal visualized stomach. Normal small intestine. Normal colon. The appendix is visualized and appears normal. Normal abdominal aorta. Normal inferior vena cava. Normal retroperitoneum. Normal urinary bladder. There are prostatic calcifications. There is no free fluid in the abdomen or pelvis. Normal abdominal wall. There are degenerative changes of the visualized lumbar spine. CT/Abdomen/Pelvis without Cont IMPRESSION: Left distal ureteral stone with hydronephrosis. Liver is enlarged with fatty infiltration. Electronically Signed: Patrick Vincent MD at 8:45 EDT ,
--- NOTE | 2023-01-31 08:05 | EX.ED.DYSGE1 ---
HPI History of Present Illness Chief Complaint: Flank Pain Detail of Chief Complaint: Abrupt left flank pain radiating to the suprapubic region Informant: patient and spouse/S.O. Onset/Context/Timing Onset: Hours Context: Sudden Onset Timing: Continuous Quality: Pain pain Location: Left flank radiating to the suprapubic region Current Severity: Severe Maximum Severity: Severe Worsened by: Nothing specific Relieved by: Nothing Associated Symptoms Associated Symptoms: Nausea Narrative Narrative: Patient is a 52-year-old male with history of essential hypertension, type 2 diabetes, hyperlipidemia, hypothyroidism, obesity, obstructive sleep apnea and coronary disease who had stents placed in October of this year by Dr. Sharmaine Francois. He presents today because of abrupt onset of left flank pain that radiates to the suprapubic region. He denies fever, chills night sweats. He does endorse nausea without vomiting diarrhea. He denies dysuria, frequency, urgency or hematuria. He does have a remote history of kidney stone. He denies fever, chills night sweats. He denies recent upper respiratory symptoms. He denies cardiac or respiratory symptoms. He does endorse nausea without vomiting diarrhea. He denies black or maroon-colored stool. He denies trauma. He denies rash. Prior similar symptoms: No Recent Illness/Hospitalization: Yes (October 2022 for coronary disease) [facility] Medical History Atherosclerosis of coronary artery of [place] heart without angina pectoris Colitis Depression Elevated liver enzymes Essential hypertension Family history of heart disease Hyperlipidemia Hypertension Leukocytosis Nausea vomiting and diarrhea JOSIAH (obstructive sleep apnea) Sepsis Type 2 diabetes mellitus Home Medications amlodipine 10 mg tablet 10 mg PO DAILY blood pressure 03/15/18 [History Last Taken 12/18/20] levothyroxine 125 mcg tablet 125 mcg PO DAILY thyroid 02/08/19 [History Last Taken 12/18/20] atorvastatin 40 mg tablet 40 mg PO QHS 10/09/22 [History Last Taken Unknown] metformin 500 mg tablet 1,000 mg PO BID 10/09/22 [History Last Taken Unknown] nystatin-triamcinolone topical cream 1 applic topical .COMPLEX 10/09/22 [History Last Taken Unknown] paroxetine HCl 40 mg tablet 40 mg PO DAILY 10/09/22 [History Last Taken Unknown] aspirin 81 mg tablet,delayed release (Adult Aspirin Regimen) 81 mg PO DAILY #90 tabs 10/13/22 [Rx Last Taken Unknown] isosorbide dinitrate 5 mg tablet 5 mg PO BID #60 tabs 10/13/22 [Rx Last Taken Unknown] metoprolol succinate 50 mg tablet,extended release 24 hr 100 mg PO DAILY HEART 10/13/22 [History Last Taken Unknown] nitroglycerin 0.4 mg sublingual tablet 0.4 mg sublingual Q5M PRN Cardiac/Chest Pain #14 tabs 10/24/22 [Rx Last Taken Unknown] clopidogrel 75 mg tablet See Rx Instructions .Route .COMPLEX #30 tabs 11/17/22 [Rx Last Taken Unknown] oxycodone-acetaminophen 5 mg-325 mg tablet 1 tab PO Q6H PRN PRN pain 5 days #20 TABLETS 01/31/23 [Rx Last Taken Unknown] Allergy/AdvReac Type Severity Reaction Status Date / Time No Known Allergies Allergy Verified 01/31/23 07:58 Family History Father Myocardial infarction, Onset Age: 45 Mother Hypertension Mixed hyperlipidemia Grandmother CHF (congestive heart failure) Surgical History History of coronary artery stent placement (~10/24/22) History of tonsillectomy Status post excision of lipoma Social History (Updated 01/31/23 @ 08:[address] Greg Turner MD) household members: spouse Smoking Status: Current every day smoker tobacco type: cigarettes alcohol intake: current details: occasional substance use type: does not use caffeine: Yes Type: carbonated beverages Number of servings: 6 ROS ROS ED Constitutional Constitutional ED: Denies chills, fever(s), subjective, sweats or weight loss Eyes Eyes: Denies blurry vision, change in vision or diplopia ENT ENT ED: Denies ear pain, rhinorrhea or sore throat Cardiovascular Cardiovascular: Denies chest pain, orthopnea, palpitations, paroxysmal nocturnal dyspnea or racing heartbeat Respiratory/Chest Respiratory/Chest: Denies cough, dyspnea, dyspnea on exertion, orthopnea or paroxysmal nocturnal dyspnea Gastrointestinal Gastrointestinal: Reports abdominal pain; Denies constipation, diarrhea, melena or vomiting Genitourinary Genitourinary ED: Denies dysuria, hematuria or urinary frequency Musculoskeletal Musculoskeletal: Reports other Details: Left flank pain ; Denies arthralgias, back pain, myalgias or neck pain Integumentary Denies rash Neurologic Neurologic: Denies headache(s) or paresthesias Endocrine Endocrinology: Denies cold intolerance or heat intolerance Hematologic/Lymphatic Hematologic/Lymphatic: Reports systems reviewed and no addt'l complaints, except as documented EXAM Physical Exam Const Vital Signs: 01/31/23 07:56 01/31/23 08:02 01/31/23 09:00 Temperature 97.2 F L Temperature Source Temporal Pulse Rate 74 78 Respiratory Rate 16 16 Respiratory Pattern Normal Blood Pressure 174/108 H 141/78 H Blood Pressure Mean 130 99 Pulse Ox 98 100 Oxygen Delivery Method Room Air Room Air 01/31/23 10:00 Temperature Temperature Source Pulse Rate 78 Respiratory Rate 16 Respiratory Pattern Blood Pressure 141/75 H Blood Pressure Mean 97 Pulse Ox 98 Oxygen Delivery Method Room Air Blood pressure is elevated. Patient is in significant discomfort and moaning. Will follow. Positive well nourished, well developed and obese; Negative for cachectic, contractures or unkempt General Appearance ED: well developed; Negative for unkempt, cachectic, contractures, cyanotic, diaphoretic, NAD or pallor Nutritional Appearance: obese; Negative for cachectic HEENT Reports moist mucous membranes HEENT Narrative: Poor dentition. Ears normal. Nares patent. Eyes PERRL and EOMs intact bilaterally General Eye ED: Negative for pale conjunctiva or scleral icterus Neck no lymphadenopathy and supple Resp normal respiratory effort and clear to auscultation bilaterally Cardio regular rate, regular rhythm, S1 normal heart sound, S2 normal heart sound and no murmurs GI normal to inspection, nondistended, normoactive bowel sounds, non-tender, non-distended and no masses; Negative for hepatosplenomegaly Back/Spine General Back: CVA tenderness left Thoracic Spine / Upper Back: Negative for thoracic spinal tenderness Lumbar Spine / Lower Back: Negative for lumbar spinal tenderness Extremity normal to inspection Extremity Narrative: DP and PT pulse are diminished. Patient does have hair on his toes. Neuro oriented x3, CN's II-XII intact bilaterally and no sensory deficits noted Neuro Narrative: Gait was observed and normal. Sensorium / Orientation: alert Psych mental status grossly normal Appearance: Negative for unkempt Skin no rashes or lesions noted, no wounds and skin turgor normal General Skin Exam: Negative for jaundice or pallor MDM MDM MDM Narrative Medical decision making narrative: With abrupt onset of left flank pain radiating anteriorly differential diagnosis would include obstructing ureteral stone, abdominal aortic aneurysm, diverticulitis, herpes varicella-zoster. Will obtain CT of the abdomen and pelvis without contrast as well as CBC, BMP and UA. UA was obtained to assess for evidence of infection. CBC to assess white count differential. Basic metabolic panel to assess glucose, anion gap and renal function since patient is middle-aged with multiple medical problems. Since he is middle-aged with multiple medical problems he was treated with morphine and Zofran for his pain and nausea respectively. He did not receive Toradol. 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 Patton. Records from [facility] for syncope when smoking and other outpatient tests.) and Prior labs Lab Data Attestation: I reviewed the patient's lab results. Lab results narrative: White count is slightly elevated. This may be due to pain. Patient metabolic panel reveals elevated creatinine of 1.39. This is an elevation from October 25. On October 25 creatinine was 0.89. Glucose is elevated 198 with normal CO2 anion gap. Labs: Laboratory Results - last 24 hr 01/31/23 01/31/23 01/31/23 08:10 08:10 08:39 WBC 12.8 H RBC 4.70 Hgb 13.3 Hct 41.5 MCV 88.3 MCH 28.3 MCHC 32.0 RDW Std Deviation 46.3 H RDW Coeff of Melva 14.4 Plt Count 201 MPV 9.7 Immature Gran % (Auto) 0.500 Neut % (Auto) 82.7 H Lymph % (Auto) 10.0 L Barren % (Auto) 5.5 Eos % (Auto) 1.1 Baso % (Auto) 0.2 Absolute Neuts (auto) 10.6 H Absolute Lymphs (auto) 1.28 Nucleated RBC % 0 Sodium 139 Potassium 4.0 Chloride 105 Carbon Dioxide 28.0 Anion Gap 6 BUN 15 Creatinine 1.39 H Estim Creat Clear Calc 60.14 Est GFR (MDRD) Af Amer 69 Est GFR (MDRD) Non-Af 57 L BUN/Creatinine Ratio 10.8 Glucose 198 H Calcium 9.2 Urine Color Yellow Urine Clarity Clear Urine pH 6.0 Ur Specific Kimball 1.015 Urine Protein 30 H Urine Glucose (UA) 100 H Urine Ketones Negative Urine Occult Blood 150 H Urine Nitrite Negative Urine Bilirubin Negative Urine Urobilinogen Normal Ur Leukocyte Esterase Negative Urine RBC 0-5 SEEN Urine WBC 0 SEEN Ur Squamous Epith Cells 0-5 SEEN Urine Bacteria 0 SEEN Urine Mucus 0 SEEN Radiography Diagnostic Testing: Clinical Impression(s) from Imaging Studies Abdomen/Pelvis CT 01/31/23 08:02 IMPRESSION: Left distal ureteral stone with hydronephrosis. Liver is enlarged with fatty infiltration. Electronically Signed: Patrick Vincent MD at 8:45 EDT , Radiology report was read and supports my initial impression. Treatment and Re-Evaluation :: CT of the abdomen pelvis without contrast was reviewed. Patient has a 3 mm left UVJ stone noted. Formal read pending, 0831 Patient was reassessed at 0846. He is no longer in discomfort. He was informed of his laboratory results to date and my interpretation of the CAT scan. Patient was reassessed at 1000. Patient is resting comfortably no pain. According to the he has been taking ibuprofen/Aleve recently. He has been instructed to discontinue this. He will need to follow-up in a week with Dr. Price to reassess his BUN and creatinine. He was referred to Dr. Viramontes for urology. Discharge Plan Triage Chief Complaint: Flank Pain ED Provider: Greg Turner Dx/Rx/DC Orders Clinical Impression: Hydronephrosis with urinary obstruction due to ureteral calculus, Essential hypertension, JOSIAH (obstructive sleep apnea), Atherosclerosis of coronary artery of [place] heart without angina pectoris, Acute renal insufficiency, Type 2 diabetes mellitus with hyperglycemia Instructions: ED Kidney Stone w/ Colic Prescriptions: New oxycodone-acetaminophen [oxycodone-acetaminophen] 5-325 mg tablet 1 tab PO Q6H PRN PRN (Reason: pain) 5 Days Qty: 20 0RF No Action metoprolol succinate 50 mg tablet extended release 24 hr 100 mg PO DAILY isosorbide dinitrate 5 mg tablet 5 mg PO BID Qty: 60 3RF Rx Instructions: allow nitrate-free interval of 12-14 hrs per 24-hr period aspirin [Adult Aspirin Regimen] 81 mg tablet,delayed release (DR/EC) 81 mg PO DAILY Qty: 90 2RF atorvastatin 40 mg tablet 40 mg PO QHS paroxetine HCl 40 mg tablet 40 mg PO DAILY nystatin-triamcinolone Cream 1 applic topical .COMPLEX Rx Instructions: 1 applic topically apply sparingly to groin and penile rash twice daily for irritation/infection up to 2 weeks and then take a week off; metformin 500 mg tablet 1,000 mg PO BID Hold Instructions: Resume on 10/26/22. amlodipine 10 MG tablet 10 mg PO DAILY Label Comments: TAKE 1 TABLET BY MOUTH EVERY DAY levothyroxine 125 MCG tablet 125 mcg PO DAILY Label Comments: TAKE 1 TABLET EVERY DAY nitroglycerin 0.4 mg Tablet, Sublingual 0.4 mg sublingual Q5M PRN (Reason: Cardiac/Chest Pain) Qty: 14 5RF clopidogrel 75 mg tablet See Rx Instructions .ROUTE .COMPLEX Qty: 30 11RF Dose Instruction: TAKE 1 TABLET BY MOUTH EVERY DAY Rx Instructions: TAKE 1 TABLET BY MOUTH EVERY DAY Primary Care Provider: Sonny Price Referrals: Harpreet Viramontes MD [Med Staff - Active Staff] - 5-7 Days Sonny Price MD [Primary Care Provider] - 5-7 Days Activity Restrictions/Additional Instructions: 1. Do not take ibuprofen or Aleve or any NSAIDs since you are creatinine is elevated 2. Drink plenty of fluids 3. Call Dr. Price's office on Thursday for repeat basic metabolic panel 4. Call Dr. Viramontes's office for follow-up for the obstructing stone Disposition Disposition: Home, Self Care
[2023-01-31] MEDS: 0.9% Normal Saline 1,000 ML 250 ML IV (08:10)
[2023-01-31] MEDS: morphine 8 MG/ML Syringe IV (08:10)
[2023-01-31] MEDS: Ondansetron 4 MG/2 ML Vial IV (08:10)
[2023-01-31 08:19] LABS: Absolute Lymphocyte Count 1.28 X10^3/uL (0.83-4.51); Absolute Neutrophil Count 10.6 X10^3/uL (2.0-7.7); Basophil# 0.03 X10^3/uL; Basophil% 0.2 % (0-1); Eosinophil# 0.14 X10^3/uL; Eosinophils% 1.1 % (0-5); Hematocrit 41.5 % (40-54); Hemoglobin 13.3 g/dL (13.0-16.5); Lymphocyte # 1.28 X10^3/ul (0.83-4.51); Mean Corpuscular Hgb 28.3 pg (27.0-32.0); Mean Corpuscular Volume 88.3 fL (80-94); Mean Platelet Vol. 9.7 fl (6.2-12.0); Monocyte# 0.71 X10^3/uL; Monocyte% 5.5 % (0-10); NRBC Flagged by Analyzer 0 % (0-5); Neutrophil # 10.59 X10^3/uL (2.7-7.7); Neutrophil % 82.7 % (47-70); Platelet Count 201 K/mm3 (150-450); RBC Distribution Width CV 14.4 % (11.6-14.6); RBC Distribution Width SD 46.3 fl (35.1-43.9); White Blood Count 12.8 K/mm3 (4.4-11.0)
[2023-01-31 08:32] LABS: Anion Gap 6 (5-15); BUN 15 mg/dL (7-18); BUN/Creat Ratio 10.8 RATIO (10-20); Calcium,Total 9.2 mg/dL (8.5-10.1); Chloride 105 mmol/L (98-107); Creatinine, Serum 1.39 mg/dL (0.70-1.30); EST Glomerular Filtration Rate 57 mL/min (>60); Est Glom Filt Rate - Afr Amer 69 mL/min (>60); Estimated Creatinine Clearance 60.14 ml/min; Glucose 198 mg/dL (74-106); Sodium Level 139 mmol/L (136-145)
[2023-01-31 08:43] LABS: Bacteria 0 SEEN /hpf (None Seen); Mucous, Urine 0 SEEN /hpf (<or=2+); White Blood Cells 0 SEEN /hpf (0-5)
[2023-01-31 09:00] VITALS: BP 141/78; PULSE 78; RESP 16; O2SAT 100
[2023-01-31 09:11] LABS: Color, Urine Yellow (Yellow); Glucose, Dipstick 100 mg/dl (Normal); Ketone-Dipstick Negative (Negative); Leukocyte Esterase-Dipstick Negative /ul (Negative); Nitrite-Dipstick Negative (Negative); Occult Blood-Urine 150 /ul (Negative); Protein-Dipstick 30 mg/dl (Negative); Specific Gravity, Urine 1.015 (1.002-1.030); Urine Bilirubin Dipstick Negative (Negative); Urine Clarity Clear (Clear); Urine Urobilinogen Normal (Normal)
[2023-01-31 09:18] LABS: Red Blood Cells-Urine 0-5 SEEN /hpf (0-5); Squamous Epithelial Cells - UA 0-5 SEEN /hpf (0-5)
[2023-01-31 10:00] VITALS: BP 141/75; PULSE 78; RESP 16; O2SAT 98
== END 2023-01-31 10:15 | disposition home or self-care (01) ==
PROVIDERS: Emergency Provider Emergency Medicine; PCP Family Medicine; Visit Provider Emergency Medicine
DX: N13.2 Hydronephrosis with renal and ureteral calculous obstruction (principal); E11.65 Type 2 diabetes mellitus with hyperglycemia; N28.9 Disorder of kidney and ureter, unspecified; F17.210 Nicotine dependence, cigarettes, uncomplicated; I25.10 Atherosclerotic heart disease of native coronary artery without angina pectoris; I10 Essential (primary) hypertension; E66.9 Obesity, unspecified; Z95.5 Presence of coronary angioplasty implant and graft; E78.5 Hyperlipidemia, unspecified; G47.33 Obstructive sleep apnea (adult) (pediatric)
CPT/HCPCS: 36415; 74176; 80048; 81001; 85025; 96361; 96374; 96375; 99284; J7030; J2405

== ENCOUNTER 2023-03-04 21:53 | Emergency (ER) | payer OTHER, SELFPAY ==
[2023-03-04 21:54] VITALS: BP 137/90; PULSE 110; RESP 18; TEMP 36.7; O2SAT 97; BMI 42.3
--- NOTE | 2023-03-04 22:12 | EX.ED.DYSGE1 ---
HPI History of Present Illness Chief Complaint: Nausea/Vomiting Informant: patient and spouse/S.O. Onset/Context/Timing Onset: Today and Yesterday Context: Gradual Onset Timing: Continuous Current Severity: Moderate Maximum Severity: Moderate Narrative Narrative: 52-year-old male history of CAD with 2 stents and diabetes. States yesterday started feeling poorly and had nausea and vomiting. No diarrhea. Subjective fever not documented. Denies any dysuria. Cough of white sputum. Denies any earache. His abdomen is sore but he thinks that from throwing up. He denies any recent hospitalizations. No one else at home is ill. Prior similar symptoms: Yes Recent Illness/Hospitalization: No PFSH [facility] Medical History (Updated 03/04/23 @ 23:[address] Tye Juarez MD) Anxiety Atherosclerosis of coronary artery of [place] heart without angina pectoris BiPAP (biphasic positive airway pressure) dependence Colitis Depression Depression Diabetes Elevated liver enzymes Essential hypertension Family history of heart disease Former smoker Hyperlipidemia Hypertension Hypertension Kidney stones Leukocytosis Myocardial infarct Nausea vomiting and diarrhea JOSIAH (obstructive sleep apnea) Sepsis Sleep apnea Type 2 diabetes mellitus Home Medications amlodipine 10 mg tablet 10 mg PO DAILY blood pressure 03/15/18 [History Last Taken 12/18/20] levothyroxine 125 mcg tablet 125 mcg PO DAILY thyroid 02/08/19 [History Last Taken 12/18/20] atorvastatin 40 mg tablet 40 mg PO QHS 10/09/22 [History Last Taken Unknown] metformin 500 mg tablet 1,000 mg PO BID 10/09/22 [History Last Taken Unknown] nystatin-triamcinolone topical cream 1 applic topical .COMPLEX 10/09/22 [History Last Taken Unknown] paroxetine HCl 40 mg tablet 40 mg PO DAILY 10/09/22 [History Last Taken Unknown] aspirin 81 mg tablet,delayed release (Adult Aspirin Regimen) 81 mg PO DAILY #90 tabs 10/13/22 [Rx Last Taken Unknown] metoprolol succinate 50 mg tablet,extended release 24 hr 100 mg PO DAILY HEART 10/13/22 [History Last Taken Unknown] nitroglycerin 0.4 mg sublingual tablet 0.4 mg sublingual Q5M PRN Cardiac/Chest Pain #14 tabs 10/24/22 [Rx Last Taken Unknown] clopidogrel 75 mg tablet See Rx Instructions .Route .COMPLEX #30 tabs 11/17/22 [Rx Last Taken Unknown] oxycodone-acetaminophen 5 mg-325 mg tablet 1 tab PO Q6H PRN PRN pain 5 days #20 TABLETS 01/31/23 [Rx Last Taken Unknown] isosorbide dinitrate 5 mg tablet 5 mg PO BID #60 tabs 02/13/23 [Rx Last Taken Unknown] ondansetron 4 mg disintegrating tablet 4 mg PO Q6H PRN nausea and vomiting #7 tabs 03/04/23 [Rx Last Taken Unknown] Allergy/AdvReac Type Severity Reaction Status Date / Time No Known Allergies Allergy Verified 03/04/23 21:55 Family History Father Myocardial infarction, Onset Age: 45 Mother Hypertension Mixed hyperlipidemia Grandmother CHF (congestive heart failure) Surgical History History of coronary artery stent placement (~10/24/22) History of tonsillectomy Status post excision of lipoma Social History household members: spouse Smoking Status: Former smoker alcohol intake: current details: occasional substance use type: does not use caffeine: Yes Type: carbonated beverages Number of servings: 6 ROS ROS ED ROS Narrative Nausea and vomiting. Subjective fever, Review of Systems ROS Unobtainable: Denies due to encephalopathy Constitutional Constitutional ED: Reports fever(s) and subjective Eyes Eyes: Denies blurry vision ENT ENT ED: Denies ear pain Cardiovascular Cardiovascular: Denies chest pain Respiratory/Chest Respiratory/Chest: Reports cough Gastrointestinal Gastrointestinal: Reports nausea and vomiting Genitourinary Genitourinary ED: Denies dysuria or hematuria Musculoskeletal Musculoskeletal: Denies arthralgias Integumentary Denies abscess Neurologic Neurologic: Denies headache(s) Psychiatric Psychiatric: Denies anxiety Endocrine Endocrinology: Denies cold intolerance Hematologic/Lymphatic Hematologic/Lymphatic: Reports none Allergic/Immunologic Allergic/Immunologic ED: Denies mouth swelling, tongue swelling or urticaria EXAM Physical Exam Narrative Exam Narrative: Middle-aged male. Vital signs are stable. He is afebrile. He does not look septic or toxic. He does look mildly dehydrated. Reviewed. H EENT exam unremarkable except for dry mucous membranes. Pupils round reactive light. Neck nontender no lymphadenopathy. No meningismus. Lungs clear to auscultation bilaterally. Heart tachycardic rate about 110 no murmur. Chest wall nontender. Abdomen mildly diffusely tender. Not localizing the the right upper or right lower quadrant. No distention or obstruction. No peritoneal signs. Soft. Back nontender. Skin no rashes. Moving all 4 extremities. Nontender. Normal motor strength. Neurologically he is awake and alert with no focal motor deficits. Const Vital Signs: 03/04/23 21:54 03/04/23 22:43 03/05/23 00:15 Temperature 98.0 F 99.1 F Temperature Source Temporal Oral Pulse Rate 110 H 107 H 99 Respiratory Rate 18 14 28 H Blood Pressure 137/90 H 121/84 H 121/68 H Blood Pressure Mean 105 96 82 Pulse Ox 97 93 95 Oxygen Delivery Method Room Air Room Air Positive well nourished, well developed and obese; Negative for cachectic, contractures or unkempt General Appearance ED: well developed and NAD; Negative for unkempt, cachectic, contractures, cyanotic, diaphoretic or pallor Nutritional Appearance: obese; Negative for cachectic HEENT Reports dry mucous membranes; Denies moist mucous membranes Negative for trauma or tenderness Mouth ED: Yes dry mucous membranes Mouth: dry mucous membranes Eyes PERRL and EOMs intact bilaterally General Eye ED: Negative for pale conjunctiva or scleral icterus Neck no lymphadenopathy, supple and no JVD General: Negative for tenderness Lymph Lymphatic: Negative for other Chest Wall inspection of chest normal and palpation of chest normal Resp normal respiratory effort and clear to auscultation bilaterally Effort and Inspection: Negative for retractions Auscultation: Negative for rales, rhonchi or wheezes Cardio regular rhythm, S1 normal heart sound, S2 normal heart sound and no murmurs; Negative for regular rate Rate: tachycardic GI normal to inspection, nondistended, normoactive bowel sounds, non-distended and no masses; Negative for non-tender Inspection: Negative for abdominal distention Auscultation: normoactive bowel sounds Palpation: soft and tender; Negative for guarding, splenomegaly, mass or rebound tenderness present Back/Spine no CVA tenderness General Back: Negative for CVA tenderness Cervical Spine: Negative for cervical spine tenderness Thoracic Spine / Upper Back: Negative for thoracic spinal tenderness Lumbar Spine / Lower Back: Negative for lumbar spinal tenderness Extremity normal to inspection General Extremety ED: Negative for tenderness Neuro oriented x3 and CN's II-XII intact bilaterally Sensorium / Orientation: alert; Negative for orientation impaired, lethargic or stuporous Motor Exam: strength 5/5 throughout Psych mental status grossly normal Appearance: Negative for unkempt Attitude: No agitated Skin no rashes or lesions noted and no wounds General Skin Exam: Negative for jaundice or pallor Lesions: No lesion noted Rashes: No rashes noted Trauma: Negative for abrasion Wounds: Negative for wounds noted MDM MDM MDM Narrative Medical decision making narrative: 52-year-old male with nausea, vomiting, cough and subjective fever. Will be treated with liter normal saline for dehydration. He had Zofran at home and currently is not nauseated. Labs and chest x-ray are being obtained. Viral versus bacterial infection. Repeat exam at 11:30 PM patient doing well. Resting comfortably. We went over his labs. Do not have a specific cause for his illness most likely is as a viral syndrome. There is no pneumonia on chest x-ray. His COVID and flu are negative. His abdomen is benign. He is currently receiving a liter normal saline. He will be reassessed. He was given Tylenol for body aches. Patient be reevaluated. If he is doing well be discharged home with Zofran for nausea. Follow-up with his doctor in the next several days to ensure he is improving or return if worse. I do not think he needs any further imaging at this time. Repeat exam at 1:02 AM patient is feeling improved. His abdomen is benign. Clinically I think this is a viral syndrome. He will be discharged home with Zofran. Follow-up with his doctor in the next couple days if he is not improving or return if worse. I went over all test results but he and his and they are both comfortable with him being discharged home. He knows to return if worse. Lab Data Attestation: I reviewed the patient's lab results. Lab results narrative: CBC shows a white count of 14.0. H&H 13 and 41. Platelets 210. Chemistries unremarkable. Gap of 8. BUN and creatinine 19 and 1.51. Liver enzymes unremarkable. Lipase normal at 20. Glucose 129. Urinalysis is unremarkable. No white or red cells. No nitrates or bacteria. COVID and influenza both negative. Chest x-ray negative. Labs: Laboratory Results - last 24 hr 06/28/23 06/28/23 22:00 22:35 WBC 14.0 H RBC 4.75 Hgb 13.3 Hct 41.3 MCV 86.9 MCH 28.0 MCHC 32.2 RDW Std Deviation 47.2 H RDW Coeff of Melva 14.7 H Plt Count 210 MPV 10.3 Immature Gran % (Auto) 0.400 Neut % (Auto) 83.6 H Lymph % (Auto) 10.3 L Haakon % (Auto) 5.1 Eos % (Auto) 0.2 Baso % (Auto) 0.4 Absolute Neuts (auto) 11.7 H Absolute Lymphs (auto) 1.44 Nucleated RBC % 0 Sodium 134 L Potassium 3.7 Chloride 100 Carbon Dioxide 26.0 Anion Gap 8 BUN 19 H Creatinine 1.51 H Estim Creat Clear Calc 55.36 Est GFR (MDRD) Af Amer 63 Est GFR (MDRD) Non-Af 52 L BUN/Creatinine Ratio 12.6 Glucose 129 H Lactic Acid 1.3 Calcium 9.7 Total Bilirubin 0.90 AST 19 ALT 36 Alkaline Phosphatase 100 Total Protein 8.4 H Albumin 3.3 Globulin 5.1 H Albumin/Globulin Ratio 0.6 L Lipase 20 Urine Color Yellow Urine Clarity Clear Urine pH 5.0 Ur Specific [place] 1.025 Urine Protein 100 H Urine Glucose (UA) Normal Urine Ketones 5 H Urine Occult Blood 25 H Urine Nitrite Negative Urine Bilirubin 1 H Urine Urobilinogen 4 H Ur Leukocyte Esterase 25 H Urine RBC 0 SEEN Urine WBC 0-5 SEEN Ur Squamous Epith Cells 0-5 SEEN Urine Bacteria 0 SEEN Urine Mucus 0 SEEN Radiography Chest X-Ray - ED: 2 View, Read by ED Physician, Mediastinum, Bony Structures, No Acute Disease and Chronic Changes Diagnostic Testing: Clinical Impression(s) from Imaging Studies Chest X-Ray 03/04/23 23:10 IMPRESSION: No evidence of acute cardiopulmonary disease. Electronically Signed: Edson Pitts DO at 23:22 EDT , Chest x-ray, 2 views, interpreted myself shows no acute abnormality. Normal cardiac silhouette. No infiltrate. Rhythm Strip Rhythm Strip: Sinus Tach Rate: 102 Ectopy: None EKG Initial EKG: Attestation: I personally reviewed and interpreted this EKG as follows: Interpretation: Sinus Tachycardia Comments: Sinus tachycardia rate of 102. No acute signs of [place] or ischemia. Discharge Plan Triage Chief Complaint: Nausea/Vomiting ED Provider: Tye Juarez Dx/Rx/DC Orders Clinical Impression: Viral syndrome, History of coronary artery disease, History of diabetes mellitus, Nausea & vomiting Instructions: ED Viral Syndrome (Adult), ED Vomiting (Adult) Prescriptions: New ondansetron 4 mg tablet,disintegrating 4 mg PO Q6H PRN (Reason: nausea and vomiting) Qty: 7 0RF No Action metoprolol succinate 50 mg tablet extended release 24 hr 100 mg PO DAILY aspirin [Adult Aspirin Regimen] 81 mg tablet,delayed release (DR/EC) 81 mg PO DAILY Qty: 90 2RF atorvastatin 40 mg tablet 40 mg PO QHS paroxetine HCl 40 mg tablet 40 mg PO DAILY nystatin-triamcinolone Cream 1 applic topical .COMPLEX Rx Instructions: 1 applic topically apply sparingly to groin and penile rash twice daily for irritation/infection up to 2 weeks and then take a week off; metformin 500 mg tablet 1,000 mg PO BID Hold Instructions: Resume on 10/26/22. amlodipine 10 MG tablet 10 mg PO DAILY Patient Comments: TAKE 1 TABLET BY MOUTH EVERY DAY levothyroxine 125 MCG tablet 125 mcg PO DAILY Patient Comments: TAKE 1 TABLET EVERY DAY nitroglycerin 0.4 mg Tablet, Sublingual 0.4 mg sublingual Q5M PRN (Reason: Cardiac/Chest Pain) Qty: 14 5RF oxycodone-acetaminophen [oxycodone-acetaminophen] 5-325 mg tablet 1 tab PO Q6H PRN PRN (Reason: pain) 5 Days Qty: 20 0RF Hold Instructions: NO LONGER TAKING clopidogrel 75 mg tablet See Rx Instructions .ROUTE .COMPLEX Qty: 30 11RF Dose Instruction: TAKE 1 TABLET BY MOUTH EVERY DAY Rx Instructions: TAKE 1 TABLET BY MOUTH EVERY DAY isosorbide dinitrate 5 mg tablet 5 mg PO BID Qty: 60 3RF Rx Instructions: allow nitrate-free interval of 12-14 hrs per 24-hr period Primary Care Provider: Sonny Price Referrals: Sonny Price MD [Primary Care Provider] - 1-2 Days if not improving Activity Restrictions/Additional Instructions: Plenty of fluids and rest. Increase your diet slowly as tolerated. Zofran as needed for nausea. You may swallow it or let it dissolve in your tongue. Follow-up with your doctor if not improving or return if feeling worse. Disposition Disposition: Home, Self Care
[2023-03-04 22:43] VITALS: BP 121/84; PULSE 107; RESP 14; TEMP 37.3; O2SAT 93
[2023-03-04 22:44] LABS: Bacteria 0 SEEN /hpf (None Seen); Mucous, Urine 0 SEEN /hpf (<or=2+); Red Blood Cells-Urine 0 SEEN /hpf (0-5)
--- NOTE | 2023-03-04 22:45 | EKG12_ITS ---
Test Reason : NAUSEA Blood Pressure : / mmHG Vent. Rate : 102 BPM Atrial Rate : 102 BPM P-R Int : 126 ms QRS Dur : 098 ms QT Int : 336 ms P-R-T Axes : 064 007 044 degrees QTc Int : 437 ms Sinus tachycardia Incomplete right bundle branch block Nonspecific T wave abnormality Abnormal ECG Confirmed by AKIRA REICH, IDALMIS ([id number]), concrete puddler RUBEN CARVAJAL ([id number]) on 03/05/2023 10:43:59 AM Referred By: Confirmed By:IDALMIS CHAMPION MD
[2023-03-04] MEDS: 0.9% Normal Saline 1,000 ML 1000 ML IV (22:47)
[2023-03-04 22:49] LABS: Absolute Lymphocyte Count 1.44 X10^3/uL (0.83-4.51); Absolute Neutrophil Count 11.7 X10^3/uL (2.0-7.7); Basophil# 0.05 X10^3/uL; Basophil% 0.4 % (0-1); Eosinophil# 0.03 X10^3/uL; Eosinophils% 0.2 % (0-5); Hematocrit 41.3 % (40-54); Hemoglobin 13.3 g/dL (13.0-16.5); Lymphocyte # 1.44 X10^3/ul (0.83-4.51); Lymphocyte % 10.3 % (19-41); Mean Corp Hgb Conc 32.2 g/dL (32-36); Mean Corpuscular Volume 86.9 fL (80-94); Mean Platelet Vol. 10.3 fl (6.2-12.0); Monocyte# 0.71 X10^3/uL; Monocyte% 5.1 % (0-10); NRBC Flagged by Analyzer 0 % (0-5); Neutrophil # 11.71 X10^3/uL (2.7-7.7); Neutrophil % 83.6 % (47-70); Platelet Count 210 K/mm3 (150-450); RBC Distribution Width CV 14.7 % (11.6-14.6); RBC Distribution Width SD 47.2 fl (35.1-43.9); Red Blood Count 4.75 M/mm3 (4.6-6.2)
[2023-03-04 22:51] LABS: Color, Urine Yellow (Yellow); Glucose, Dipstick Normal (Normal); Ketone-Dipstick 5 mg/dl (Negative); Leukocyte Esterase-Dipstick 25 /ul (Negative); Nitrite-Dipstick Negative (Negative); Occult Blood-Urine 25 /ul (Negative); Protein-Dipstick 100 mg/dl (Negative); Specific Gravity, Urine 1.025 (1.002-1.030); Urine Clarity Clear (Clear); Urine Urobilinogen 4 mg/dl (Normal)
[2023-03-04 23:08] LABS: Urine Bilirubin Dipstick 1 mg/dL (Negative)
[2023-03-04 23:10] LABS: Squamous Epithelial Cells - UA 0-5 SEEN /hpf (0-5); White Blood Cells 0-5 SEEN /hpf (0-5)
--- NOTE | 2023-03-04 23:10 | RAD_ITS ---
INDICATION: cough EXAMINATION/TECHNIQUE: X-RAY - XR Chest 2 Views COMPARISON: 05/10/2021. FINDINGS: LINES/DEVICES: None. LUNGS: No consolidation or evidence of an effusion. No evidence of edema or a pneumothorax. MEDIASTINUM AND CARDIOVASCULAR STRUCTURES: Cardiac silhouette is normal in size and contour. Mediastinum is unremarkable. BONES AND SOFT TISSUES: No acute abnormality. RAD/Chest PA and Lateral IMPRESSION: No evidence of acute cardiopulmonary disease. Electronically Signed: Edson Pitts DO at 23:22 EDT ,
[2023-03-04 23:11] LABS: ALB/GLOB Ratio 0.6 RATIO (0.9-2.4); AST(SGOT) 19 U/L (15-37); Alanine Aminotransfer ALT/SGPT 36 U/L (16-61); Albumin, Serum 3.3 g/dL (3.2-5.0); Alkaline Phosphatase 100 U/L (45-117); Anion Gap 8 (5-15); BUN 19 mg/dL (7-18); BUN/Creat Ratio 12.6 RATIO (10-20); Calcium,Total 9.7 mg/dL (8.5-10.1); Chloride 100 mmol/L (98-107); Creatinine, Serum 1.51 mg/dL (0.70-1.30); EST Glomerular Filtration Rate 52 mL/min (>60); Est Glom Filt Rate - Afr Amer 63 mL/min (>60); Estimated Creatinine Clearance 55.36 ml/min; Globulin 5.1 g/dL (2.2-4.2); Glucose 129 mg/dL (74-106); Lipase 20 U/L (13-75); Potassium 3.7 mmol/L (3.5-5.1); Protein, Total 8.4 g/dL (6.4-8.2); Sodium Level 134 mmol/L (136-145)
[2023-03-04 23:21] LABS: Lactic Acid 1.3 mmol/L (0.4-1.9)
[2023-03-04] MEDS: Acetaminophen 500 MG Tablet 1000 MG PO (23:41)
[2023-03-05 00:15] VITALS: BP 121/68; PULSE 99; RESP 28; O2SAT 95
[2023-03-05 01:10] VITALS: BP 122/74; PULSE 99; RESP 20; O2SAT 95
== END 2023-03-05 01:16 | disposition home or self-care (01) ==
PROVIDERS: Emergency Provider Emergency Medicine; PCP Family Medicine; Visit Provider Emergency Medicine
DX: B34.9 Viral infection, unspecified (principal); E11.9 Type 2 diabetes mellitus without complications; R11.2 Nausea with vomiting, unspecified; I10 Essential (primary) hypertension; Z87.891 Personal history of nicotine dependence; I25.10 Atherosclerotic heart disease of native coronary artery without angina pectoris; E86.0 Dehydration; Z95.5 Presence of coronary angioplasty implant and graft; E66.9 Obesity, unspecified
CPT/HCPCS: 71046; 80053; 81001; 83605; 83690; 85025; 87428; 93005; 96360; 99284; J7030; A4216

== ENCOUNTER 2023-03-17 19:21 | Inpatient (IN) | payer OTHER, SELFPAY ==
[2023-03-17 19:23] VITALS: BP 152/82; PULSE 127; RESP 20; TEMP 36.9; O2SAT 95; BMI 42.8
--- NOTE | 2023-03-17 19:30 | RAD_ITS ---
STUDY: X-RAY CHEST REASON FOR EXAM: Male, 52 years old. COUGH,FEVER TECHNIQUE: Frontal and lateral views of the chest. COMPARISON: 03/04/2023. FINDINGS: The lungs are clear and expanded. There is no demonstrated pleural abnormality. Normal size heart. Normal mediastinum and brayan. Normal visualized pulmonary arteries. Normal visualized aortic arch and descending thoracic aorta. Normal visualized thoracic spine. Normal visualized ribs, clavicles, and shoulders. There is no demonstrated abnormality of the visualized soft tissue structures of the upper abdomen. RAD/Chest PA and Lateral IMPRESSION: Normal x-ray examination of the chest. Electronically Signed: Sven Johnson MD at 19:45 EDT ,
--- NOTE | 2023-03-17 21:50 | EKG12_ITS ---
Test Reason : DYSRHYTHMIA Blood Pressure : / mmHG Vent. Rate : 115 BPM Atrial Rate : 115 BPM P-R Int : 126 ms QRS Dur : 092 ms QT Int : 320 ms P-R-T Axes : 070 012 046 degrees QTc Int : 442 ms Sinus tachycardia Otherwise normal ECG Confirmed by AKIRA REICH, IDALMIS ([id number]), staff editor RUBEN CARVAJAL ([id number]) on 03/18/2023 10:26:26 AM Referred By: JANE Confirmed By:IDALMIS CHAMPION MD
--- NOTE | 2023-03-17 21:51 | CT_ITS ---
EXAM: CT ABDOMEN AND PELVIS WITH INTRAVENOUS CONTRAST CLINICAL INDICATION: abdominal pain -- IV PO Contrast TECHNIQUE: Helically acquired images were obtained of the abdomen and pelvis with intravenous contrast. This CT exam was performed using one or more of the following dose reduction techniques: automated exposure control, adjustment of the mA and/or kV according to patient size, and/or use of iterative reconstruction technique. CONTRAST: Oral and amp; IV Gastrografin and amp; 100mL Isovue-300 COMPARISON: 01/31/2023. FINDINGS: LOWER THORAX: Unremarkable. Lung bases are clear. No cardiomegaly. No significant pericardial effusion. ABDOMEN: LIVER: Unremarkable. Homogeneous. No focal mass. GALLBLADDER AND BILE DUCTS: Unremarkable. No calcified gallstones. No gallbladder distention or wall edema. No intra- or extrahepatic biliary ductal dilation. PANCREAS: Unremarkable. No focal cystic or solid mass. SPLEEN: Unremarkable. Normal size without focal cystic or solid mass. ADRENALS: Unremarkable. No nodules. KIDNEYS AND URETERS: No renal stones or hydronephrosis. Slightly heterogeneous appearance of the renal cortex with partial loss of the corticomedullary junction, best demonstrated on delayed imaging. Trace perinephric stranding. Normal renal size and position. STOMACH AND BOWEL: Unremarkable. No stomach or bowel distention. No focal inflammatory change. PELVIS: APPENDIX: No evidence of acute appendicitis. BLADDER: Unremarkable. REPRODUCTIVE: Unremarkable as visualized. No mass. ABDOMEN and PELVIS: INTRAPERITONEAL SPACE: Unremarkable. No ascites or other fluid collection. No free air. BONES/JOINTS: Unremarkable. No suspicious lytic or blastic abnormality. SOFT TISSUES: Unremarkable. No discrete abdominal or pelvic wall hernia. VASCULATURE: Unremarkable. Abdominal aorta is normal in caliber. LYMPH NODES: Unremarkable. No enlarged lymph nodes. CT/Abdomen/Pelvis W IV Cont ONLY IMPRESSION: Heterogeneous appearing kidneys suspicious for acute pyelonephritis. No renal stones or obstructive uropathy. Electronically Signed: Danielle Sky MD at 23:11 EDT Reading Location ID and State: [id number] / Tel , Service support ,
[2023-03-17] MEDS: Ondansetron 4 MG/2 ML Vial IV (22:16)
[2023-03-17] MEDS: 0.9% Normal Saline 1,000 ML 1000 ML IV (22:16)
[2023-03-17] MEDS: Morphine 4 MG/ML Syringe IV (22:17)
[2023-03-17 22:19] LABS: Mucous, Urine 0 SEEN /hpf (<or=2+)
[2023-03-17 22:21] LABS: Absolute Neutrophil Count 15.8 X10^3/uL (2.0-7.7); Basophil# 0.06 X10^3/uL; Basophil% 0.3 % (0-1); Hematocrit 42.5 % (40-54); Hemoglobin 13.5 g/dL (13.0-16.5); Lymphocyte % 6.4 % (19-41); Mean Corp Hgb Conc 31.8 g/dL (32-36); Mean Platelet Vol. 9.5 fl (6.2-12.0); Monocyte# 1.54 X10^3/uL; Monocyte% 8.2 % (0-10); NRBC Flagged by Analyzer 0 % (0-5); Neutrophil # 15.77 X10^3/uL (2.7-7.7); Neutrophil % 84.4 % (47-70); POSITIVE DIFFERENTIAL YES; Platelet Count 219 K/mm3 (150-450); RBC Distribution Width CV 14.6 % (11.6-14.6); RBC Distribution Width SD 47.5 fl (35.1-43.9); Red Blood Count 4.83 M/mm3 (4.6-6.2); White Blood Count 18.7 K/mm3 (4.4-11.0)
[2023-03-17 22:22] LABS: Color, Urine Yellow (Yellow); Glucose, Dipstick Normal (Normal); Ketone-Dipstick 15 mg/dl (Negative); Leukocyte Esterase-Dipstick 100 /ul (Negative); Nitrite-Dipstick Positive (Negative); Occult Blood-Urine 250 /ul (Negative); Protein-Dipstick 500 mg/dl (Negative); Urine Clarity Cloudy (Clear); Urine Urobilinogen 4 mg/dl (Normal)
[2023-03-17 22:29] LABS: Urine Bilirubin Dipstick 1 mg/dL (Negative)
[2023-03-17 22:31] LABS: Fine Granular Cast- Urine 5-10 SEEN /lpf (0-5)
[2023-03-17 22:32] LABS: Bacteria 2+ /hpf (None Seen); Red Blood Cells-Urine > 100 SEEN /hpf (0-5); White Blood Cells 25-50 SEEN /hpf (0-5)
[2023-03-17 22:33] LABS: Hyaline Cast 0-5 SEEN /lpf (0-5); Squamous Epithelial Cells - UA 0-5 SEEN /hpf (0-5)
[2023-03-17 22:38] LABS: ALB/GLOB Ratio 0.5 RATIO (0.9-2.4); AST(SGOT) 45 U/L (15-37); Alanine Aminotransfer ALT/SGPT 58 U/L (16-61); Albumin, Serum 2.8 g/dL (3.2-5.0); Alkaline Phosphatase 109 U/L (45-117); Anion Gap 5 (5-15); BUN 19 mg/dL (7-18); BUN/Creat Ratio 10.1 RATIO (10-20); Calcium,Total 9.1 mg/dL (8.5-10.1); Chloride 95 mmol/L (98-107); Creatinine, Serum 1.88 mg/dL (0.70-1.30); EST Glomerular Filtration Rate 40 mL/min (>60); Est Glom Filt Rate - Afr Amer 49 mL/min (>60); Estimated Creatinine Clearance 44.47 ml/min; Glucose 143 mg/dL (74-106); Lipase 25 U/L (13-75); Potassium 3.4 mmol/L (3.5-5.1); Protein, Total 8.8 g/dL (6.4-8.2); Sodium Level 131 mmol/L (136-145)
[2023-03-17 22:50] LABS: Differential Indicated SCAN CRITERIA MET
[2023-03-17 23:07] LABS: Differential Comment SCANNED
--- NOTE | 2023-03-17 23:48 | EX.ED.DYSGE1 ---
HPI History of Present Illness Chief Complaint: General Illness Narrative Narrative: 52-year-old male presenting with abdominal pain, nausea and vomiting, back pain. He states this has been ongoing issue for him. He was told he had a fever to the urgent care today. He was told it was 100.7. When he arrived back here his temperature was 98.4. Patient did state that he had some dysuria at 1 point. He also had diarrhea which is resolved. He still having abdominal cramping and states he has not had a bowel movement. [facility] Medical History Anxiety Atherosclerosis of coronary artery of [place] heart without angina pectoris BiPAP (biphasic positive airway pressure) dependence Colitis Depression Depression Diabetes Elevated liver enzymes Essential hypertension Family history of heart disease Former smoker Hyperlipidemia Hypertension Hypertension Kidney stones Leukocytosis Myocardial infarct Nausea vomiting and diarrhea JOSIAH (obstructive sleep apnea) Sepsis Sleep apnea Type 2 diabetes mellitus Home Medications amlodipine 10 mg tablet 10 mg PO DAILY blood pressure 03/15/18 [History Last Taken 12/18/20] levothyroxine 125 mcg tablet 125 mcg PO DAILY thyroid 02/08/19 [History Last Taken 12/18/20] atorvastatin 40 mg tablet 40 mg PO QHS 10/09/22 [History Last Taken Unknown] metformin 500 mg tablet 1,000 mg PO BID 10/09/22 [History Last Taken Unknown] nystatin-triamcinolone topical cream 1 applic topical .COMPLEX 10/09/22 [History Last Taken Unknown] paroxetine HCl 40 mg tablet 40 mg PO DAILY 10/09/22 [History Last Taken Unknown] aspirin 81 mg tablet,delayed release (Adult Aspirin Regimen) 81 mg PO DAILY #90 tabs 10/13/22 [Rx Last Taken Unknown] metoprolol succinate 50 mg tablet,extended release 24 hr 100 mg PO DAILY HEART 10/13/22 [History Last Taken Unknown] nitroglycerin 0.4 mg sublingual tablet 0.4 mg sublingual Q5M PRN Cardiac/Chest Pain #14 tabs 10/24/22 [Rx Last Taken Unknown] clopidogrel 75 mg tablet See Rx Instructions .Route .COMPLEX #30 tabs 11/17/22 [Rx Last Taken Unknown] oxycodone-acetaminophen 5 mg-325 mg tablet 1 tab PO Q6H PRN PRN pain 5 days #20 TABLETS 01/31/23 [Rx Last Taken Unknown] isosorbide dinitrate 5 mg tablet 5 mg PO BID #60 tabs 02/13/23 [Rx Last Taken Unknown] ondansetron 4 mg disintegrating tablet 4 mg PO Q6H PRN nausea and vomiting #7 tabs 03/04/23 [Rx Last Taken Unknown] Allergy/AdvReac Type Severity Reaction Status Date / Time No Known Allergies Allergy Verified 03/04/23 21:55 Family History Father Myocardial infarction, Onset Age: 45 Mother Hypertension Mixed hyperlipidemia Grandmother CHF (congestive heart failure) Surgical History History of coronary artery stent placement (~10/24/22) History of tonsillectomy Status post excision of lipoma Social History household members: spouse Smoking Status: Former smoker alcohol intake: current details: occasional substance use type: does not use caffeine: Yes Type: carbonated beverages Number of servings: 6 ROS ROS ED Constitutional Constitutional ED: Denies chills, fever(s) or sweats Eyes Eyes: Denies blurry vision or change in vision ENT ENT ED: Denies ear pain or sore throat Cardiovascular Cardiovascular: Denies chest pain, palpitations or racing heartbeat Respiratory/Chest Respiratory/Chest: Reports cough; Denies sputum Gastrointestinal Gastrointestinal: Reports abdominal pain, diarrhea, nausea and vomiting; Denies constipation Genitourinary Genitourinary ED: Reports dysuria; Denies hematuria or urinary frequency Musculoskeletal Musculoskeletal: Reports back pain; Denies arthralgias, myalgias or neck pain Integumentary Denies abscess, Abrasions or rash Neurologic Neurologic: Denies headache(s), paresthesias or weakness Psychiatric Psychiatric: Denies anxiety, depression, suicidal ideation or suicidal thoughts Endocrine Endocrinology: Denies polydipsia or polyuria EXAM Physical Exam Const Vital Signs: 03/17/23 19:23 03/17/23 20:40 Temperature 98.4 F Temperature Source Temporal Pulse Rate 127 H Respiratory Rate 20 H Respiratory Effort Normal Non-Labored Blood Pressure 152/82 H Blood Pressure Mean 105 Pulse Ox 95 Oxygen Delivery Method Room Air Positive well nourished and obese General Appearance ED: NAD Nutritional Appearance: obese HEENT Reports moist mucous membranes Eyes PERRL and EOMs intact bilaterally Resp normal respiratory effort and clear to auscultation bilaterally Cardio regular rate and regular rhythm GI normal to inspection, nondistended, normoactive bowel sounds Back/Spine General Back: CVA tenderness bilateral Neuro oriented x3 and CN's II-XII intact bilaterally Sensorium / Orientation: alert Motor Exam: strength 5/5 throughout and general weakness Psych mental status grossly normal Skin no rashes or lesions noted and no wounds MDM MDM MDM Narrative Medical decision making narrative: Patient presenting with nausea/vomiting which has been ongoing for days. He was seen in the ER recently for this and states he did get a little bit better but then got worse again. He has had some constipation and diarrhea. He has not a fever at home but states he was told he had a fever at urgent care today. On examination he has bilateral CVA tenderness and no real abdominal pain on examination. Patient tachycardic. Differential includes gastritis, pancreatitis, colitis, diverticulitis, UTI, pyelonephritis, dehydration, electrolyte abnormalities. CBC was obtained to assess white blood cell count, hemoglobin, platelets. CMP was obtained to assess liver function, renal function, electrolytes, glucose, anion gap. Lipase to assess for pancreatitis. Urinalysis to assess for UTI. I did obtain a CT abdomen pelvis with IV contrast as well. Patient initially given a liter of fluids, morphine, Zofran. CBC shows a leukocytosis of 18,000 and with a left shift. Hemoglobin and hematocrit are stable. Platelets are normal. LFTs unremarkable. Creatinine is elevated today at 1.88 so I did give him another liter of normal saline. It does look as if his creatinine has been trending upward for the last couple of months. Urinalysis with positive nitrites, 100 leukocyte esterase, greater than 100 RBCs, 25-50 white blood cells with 0-5 squamous epithelial cells and 2+ bacteria. CT of the abdomen pelvis was obtained and shows concern for bilateral pyelonephritis. Given the patient has an elevated white blood cell count, pyelonephritis and meet SIRS criteria I did obtain a lactic acid and coagulation studies, patient pancultured. He is given Rocephin 1 g IV and will talk to the hospitalist for admission. Because the patient was tachycardic I did obtain an EKG to make sure it was normal sinus rhythm. EKG on my interpretation shows sinus tachycardia at a heart rate of [address] elevation or depression. I obtained a chest x-ray to rule out pneumonia given his work-up for sepsis. Chest x-ray is negative for acute process on my interpretation. Impression: 1. Bilateral pyelonephritis 2. Leukocytosis 3. Tachycardia 4. Nausea/vomiting 5. GM Lab Data Attestation: I reviewed the patient's lab results. Labs: Laboratory Results - last 24 hr 03/17/23 03/17/23 22:04 22:10 WBC 18.7 H RBC 4.83 Hgb 13.5 Hct 42.5 MCV 88.0 MCH 28.0 MCHC 31.8 L RDW Std Deviation 47.5 H RDW Coeff of Melva 14.6 Plt Count 219 MPV 9.5 Immature Gran % (Auto) 0.700 Neut % (Auto) 84.4 H Lymph % (Auto) 6.4 L [place] % (Auto) 8.2 Eos % (Auto) 0.0 Baso % (Auto) 0.3 Absolute Neuts (auto) 15.8 H Absolute Lymphs (auto) 1.20 Nucleated RBC % 0 Differential Comment SCANNED Diff Path Review May foll Sodium 131 L Potassium 3.4 L Chloride 95 L Carbon Dioxide 31.0 Anion Gap 5 BUN 19 H Creatinine 1.88 H Estim Creat Clear Calc 44.47 Est GFR (MDRD) Af Amer 49 L Est GFR (MDRD) Non-Af 40 L BUN/Creatinine Ratio 10.1 Glucose 143 H Calcium 9.1 Total Bilirubin 1.00 AST 45 H ALT 58 Alkaline Phosphatase 109 Total Protein 8.8 H Albumin 2.8 L Globulin 6.0 H Albumin/Globulin Ratio 0.5 L Lipase 25 Urine Color Yellow Urine Clarity Cloudy Urine pH 5.0 Ur Specific [place] 1.020 Urine Protein 500 H Urine Glucose (UA) Normal Urine Ketones 15 H Urine Occult Blood 250 H Urine Nitrite Positive H Urine Bilirubin 1 H Urine Urobilinogen 4 H Ur Leukocyte Esterase 100 H Urine RBC > 100 SEEN Urine WBC 25-50 SEEN Ur Squamous Epith Cells 0-5 SEEN Urine Bacteria 2+ Hyaline Casts 0-5 SEEN Fine Granular Casts 5-10 SEEN Urine Mucus 0 SEEN Radiography Diagnostic Testing: Clinical Impression(s) from Imaging Studies Chest X-Ray 03/17/23 19:30 IMPRESSION: Normal x-ray examination of the chest. Electronically Signed: Sven Johnson MD at 19:45 EDT , Abdomen/Pelvis CT 03/17/23 21:51 IMPRESSION: Heterogeneous appearing kidneys suspicious for acute pyelonephritis. No renal stones or obstructive uropathy. Electronically Signed: Danielle Sky MD at 23:11 EDT , Discharge Plan Triage Chief Complaint: General Illness ED Provider: Porter Banuelos Dx/Rx/DC Orders Prescriptions: No Action metoprolol succinate 50 mg tablet extended release 24 hr 100 mg PO DAILY aspirin [Adult Aspirin Regimen] 81 mg tablet,delayed release (DR/EC) 81 mg PO DAILY Qty: 90 2RF atorvastatin 40 mg tablet 40 mg PO QHS paroxetine HCl 40 mg tablet 40 mg PO DAILY nystatin-triamcinolone Cream 1 applic topical .COMPLEX Rx Instructions: 1 applic topically apply sparingly to groin and penile rash twice daily for irritation/infection up to 2 weeks and then take a week off; metformin 500 mg tablet 1,000 mg PO BID Hold Instructions: Resume on 10/26/22. amlodipine 10 MG tablet 10 mg PO DAILY Patient Comments: TAKE 1 TABLET BY MOUTH EVERY DAY levothyroxine 125 MCG tablet 125 mcg PO DAILY Patient Comments: TAKE 1 TABLET EVERY DAY nitroglycerin 0.4 mg Tablet, Sublingual 0.4 mg sublingual Q5M PRN (Reason: Cardiac/Chest Pain) Qty: 14 5RF oxycodone-acetaminophen [oxycodone-acetaminophen] 5-325 mg tablet 1 tab PO Q6H PRN PRN (Reason: pain) 5 Days Qty: 20 0RF Hold Instructions: NO LONGER TAKING ondansetron 4 mg tablet,disintegrating 4 mg PO Q6H PRN (Reason: nausea and vomiting) Qty: 7 0RF clopidogrel 75 mg tablet See Rx Instructions .ROUTE .COMPLEX Qty: 30 11RF Dose Instruction: TAKE 1 TABLET BY MOUTH EVERY DAY Rx Instructions: TAKE 1 TABLET BY MOUTH EVERY DAY isosorbide dinitrate 5 mg tablet 5 mg PO BID Qty: 60 3RF Rx Instructions: allow nitrate-free interval of 12-14 hrs per 24-hr period Primary Care Provider: Sonny Price Referrals: Sonny Price MD [Primary Care Provider] -
[2023-03-17] MEDS: 0.9% Normal Saline 1,000 ML 999 ML IV (23:49)
[2023-03-17] MEDS: Ceftriaxone 1 GM/50 ML BAG IV (23:49)
[2023-03-18] VITALS (14 sets, daily range): BP systolic 114–158; BP diastolic 57–95; PULSE 85–122; RESP 12–23; TEMP 36.1–39.6; O2SAT 88–96; BMI 42.5
--- NOTE | 2023-03-18 00:33 | PCM.HP.STD ---
HPI - General General Date of Admission: 03/18/23 Date of Service: 03/18/23 Chief Complaint: Abdominal pain, flank pain, N/V HPI Narrative The patient is a 52 y/o M w/ PMHx: Anxiety and Depression, Morbid Obesity, Hypothyroidism, CAD status post PCI, HTN, HLD, JOSIAH on BIPAP, Depression and Anxiety, Former tobacco use, Diabetes mellitus type II who presents to the [facility] ED on 03/18/23 with history of recent persistent issues including initial ED evaluation 01/31/23 with at that time diagnosis of acute hydronephrosis with urinary obstruction due to ureteral calculus with discharge to home with referral to urology with Dr. Viramontes with noted renal insufficiency at that time with most recent reevaluation 03/04/2023 with onset of significant malaise as well as nausea and emesis and subjective fever with abdominal discomfort with unremarkable reported work-up at that time discharged to home on Zofran however he now represents secondary to persistent flank discomfort bilaterally, abdominal pain, nausea and emesis as well as fever at urgent care earlier in the day with reported temperature 100.7 although upon ED initial arrival temperature reported 98.4 with history of very mild transient dysuria in addition to recent loose stools however this is since resolved and given urgent care referral prompted ED evaluation. Work-up in the ED included CBC with WBC 18.7, hemoglobin 13.5, platelet 219 with left shift, CMP with sodium 131, potassium 3.4, chloride 95, BUN/creat 19/1.88, glucose 143, hepatic profile not marked appearing, urinalysis significantly concerning for UTI, urine culture pending per ED, rapid SARS COVID antigen negative, CT abdomen and pelvis with heterogeneous appearing kidney suspicious for acute pyelonephritis with no renal stone or obstructive uropathy, chest x-ray with no acute cardiopulmonary findings. In the ED patient ministered IV Rocephin, morphine 4 mg IV x1, Zofran 4 mg IV x1 as well as 2 L normal saline. Blood culture x2 obtained following antibiotic administration of note. Patient lactic acid has been requested but is pending upon evaluation of patient. [facility] Medical History Anxiety Atherosclerosis of coronary artery of [place] heart without angina pectoris BiPAP (biphasic positive airway pressure) dependence Colitis Depression Depression Diabetes Elevated liver enzymes Essential hypertension Family history of heart disease Former smoker Hyperlipidemia Hypertension Hypertension Kidney stones Leukocytosis Myocardial infarct Nausea vomiting and diarrhea JOSIAH (obstructive sleep apnea) Sepsis Sleep apnea Type 2 diabetes mellitus Home Medications amlodipine 10 mg tablet 10 mg PO DAILY blood pressure 03/15/18 [History Last Taken 12/18/20] levothyroxine 125 mcg tablet 125 mcg PO DAILY thyroid 02/08/19 [History Last Taken 12/18/20] atorvastatin 40 mg tablet 40 mg PO QHS 10/09/22 [History Last Taken Unknown] metformin 500 mg tablet 1,000 mg PO BID 10/09/22 [History Last Taken Unknown] nystatin-triamcinolone topical cream 1 applic topical .COMPLEX 10/09/22 [History Last Taken Unknown] paroxetine HCl 40 mg tablet 40 mg PO DAILY 10/09/22 [History Last Taken Unknown] aspirin 81 mg tablet,delayed release (Adult Aspirin Regimen) 81 mg PO DAILY #90 tabs 10/13/22 [Rx Last Taken Unknown] metoprolol succinate 50 mg tablet,extended release 24 hr 100 mg PO DAILY HEART 10/13/22 [History Last Taken Unknown] nitroglycerin 0.4 mg sublingual tablet 0.4 mg sublingual Q5M PRN Cardiac/Chest Pain #14 tabs 10/24/22 [Rx Last Taken Unknown] clopidogrel 75 mg tablet See Rx Instructions .Route .COMPLEX #30 tabs 11/17/22 [Rx Last Taken Unknown] oxycodone-acetaminophen 5 mg-325 mg tablet 1 tab PO Q6H PRN PRN pain 5 days #20 TABLETS 01/31/23 [Rx Last Taken Unknown] isosorbide dinitrate 5 mg tablet 5 mg PO BID #60 tabs 02/13/23 [Rx Last Taken Unknown] ondansetron 4 mg disintegrating tablet 4 mg PO Q6H PRN nausea and vomiting #7 tabs 03/04/23 [Rx Last Taken Unknown] Allergy/AdvReac Type Severity Reaction Status Date / Time No Known Allergies Allergy Verified 03/04/23 21:55 Family History Father Myocardial infarction, Onset Age: 45 Mother Hypertension Mixed hyperlipidemia Grandmother CHF (congestive heart failure) Surgical History History of coronary artery stent placement (~10/24/22) History of tonsillectomy Status post excision of lipoma Social History household members: spouse Smoking Status: Former smoker alcohol intake: current details: occasional substance use type: does not use caffeine: Yes Type: carbonated beverages Number of servings: 6 ROS ROS Narrative Admission Review of Systems: CONSTITUTIONAL: No weight loss, + fever, chills, weakness or fatigue. HEENT: Eyes: No visual loss, blurred vision, double vision or yellow sclerae. Ears, Nose, Throat: No hearing loss, sneezing, congestion, runny nose or sore throat. SKIN: No rash or itching, lesions, wounds. CARDIOVASCULAR: No chest pain, chest pressure or chest discomfort, palpitations, edema, orthopnea, syncopal events. RESPIRATORY: No shortness of breath, cough or sputum, wheezing, hemoptysis. GASTROINTESTINAL: + anorexia, nausea, vomiting, diarrhea, abdominal pain, No melena, BRBPR. GENITOURINARY: + Dysuria, frequency, sensation retaining, BL flank discomfort. NEUROLOGICAL: No headache, dizziness, syncope, paralysis, ataxia, numbness or tingling in the extremities, focal weakness, change in bowel or bladder control, seizure. MUSCULOSKELETAL: + muscle, back pain, joint pain or stiffness. HEMATOLOGIC: + Easy bleeding or bruising. LYMPHATICS: No enlarged nodes. No history of splenectomy. PSYCHIATRIC: No history of depression or anxiety. ENDOCRINOLOGIC: No reports of sweating, cold or heat intolerance. No polyuria or polydipsia. ALLERGIES: No history of asthma, hives, eczema or rhinitis. Vital Signs Vital Signs Vital Signs: 03/17/23 19:23 03/17/23 20:40 Temperature 98.4 F Temperature Source Temporal Pulse Rate 127 H Respiratory Rate 20 H Respiratory Effort Normal Non-Labored Blood Pressure 152/82 H Blood Pressure Mean 105 Pulse Ox 95 Oxygen Delivery Method Room Air Weight Weight: 281 lb 14.4 oz Body Mass Index (BMI) 42.8 Physical Exam Narrative Physical Examination: General: Awake, alert, oriented x 3 and cooperative, laying in the ED bed, fatigued and ill-appearing. Skin: Normal color, normal turgor, no icterus, no cyanosis. HEENT: AT/NC, EOMI, PERRLA, dry MM, no carotid bruits or JVD noted; however, thickened neck makes evaluation difficult. Lungs: Diminished, greater bases, mildly increased respiratory rate but no distress, no rales, ronchi or wheezing. Heart: Tachycardic with regular rhythm; no gallop, rub audible. Abdomen: Soft, morbidly obese, mild bilateral discomfort especially bilateral lower quadrants with no rebound or guarding, flank tenderness with even gentle palpation, difficult to assess distention and HSM given habitus, distant bowel sounds. Extremities: No cyanosis, no clubbing, chronic nonpitting edema distally to lower extremities. Neurological: Patient awake, alert, oriented as noted, cognitive function intact; pupils equally reactive to light and accommodation, cranial nerves II-XII grossly normal, moving all 4 extremities, no focal deficits, strength severely globally decreased secondary to acute presentation. Psychiatric: Affect appears fatigued, flat, ill-appearing, no acute evidence of depressive or anxiety feelings. Results Lab / Micro Data 03/17/23 22:04 03/17/23 22:04 Labs: Laboratory Results - last 24 hr 03/17/23 22:04: WBC 18.7 H, RBC 4.83, Hgb 13.5, Hct 42.5, MCV 88.0, MCH 28.0, MCHC 31.8 L, RDW Std Deviation 47.5 H, RDW Coeff of Melva 14.6, Plt Count 219, MPV 9.5, Immature Gran % (Auto) 0.700, Neut % (Auto) 84.4 H, Lymph % (Auto) 6.4 L, [place] % (Auto) 8.2, Eos % (Auto) 0.0, Baso % (Auto) 0.3, Absolute Neuts (auto) 15.8 H, Absolute Lymphs (auto) 1.20, Nucleated RBC % 0, Differential Comment SCANNED, Diff Path Review January, Sodium 131 L, Potassium 3.4 L, Chloride 95 L, Carbon Dioxide 31.0, Anion Gap 5, BUN 19 H, Creatinine 1.88 H, Estim Creat Clear Calc 44.47, Est GFR (MDRD) Af Amer 49 L, Est GFR (MDRD) Non-Af 40 L, BUN/Creatinine Ratio 10.1, Glucose 143 H, Calcium 9.1, Total Bilirubin 1.00, AST 45 H, ALT 58, Alkaline Phosphatase 109, Total Protein 8.8 H, Albumin 2.8 L, Globulin 6.0 H, Albumin/Globulin Ratio 0.5 L, Lipase 25 03/17/23 22:10: Urine Color Yellow, Urine Clarity Cloudy, Urine pH 5.0, Ur Specific [place] 1.020, Urine Protein 500 H, Urine Glucose (UA) Normal, Urine Ketones 15 H, Urine Occult Blood 250 H, Urine Nitrite Positive H, Urine Bilirubin 1 H, Urine Urobilinogen 4 H, Ur Leukocyte Esterase 100 H, Urine RBC > 100 SEEN, Urine WBC 25-50 SEEN, Ur Squamous Epith Cells 0-5 SEEN, Urine Bacteria 2+, Hyaline Casts 0-5 SEEN, Fine Granular Casts 5-10 SEEN, Urine Mucus 0 SEEN Micro: Microbiology 03/17/23 19:29 Nasal Secretion SARS-CoV-2 Antigen (Rapid) - Final Radiology Impression Chest X-Ray 03/17/23 19:30 IMPRESSION: Normal x-ray examination of the chest. Electronically Signed: Sven Johnson MD at 19:45 EDT , Abdomen/Pelvis CT 03/17/23 21:51 IMPRESSION: Heterogeneous appearing kidneys suspicious for acute pyelonephritis. No renal stones or obstructive uropathy. Electronically Signed: Danielle Sky MD at 23:11 EDT Reading Location ID and State: [id number] / Tel , Service support , Assessment & Plan Assessment/Plan (1) Pyelonephritis: PLAN: Plan The patient is a 52 y/o M w/ PMHx: Anxiety and Depression, Morbid Obesity, Hypothyroidism, CAD status post PCI, HTN, HLD, JOSIAH on BIPAP, Depression and Anxiety, Former tobacco use, Diabetes mellitus type II who presents to the [facility] ED on 03/18/23 with history of recent persistent issues including initial ED evaluation 01/31/23 with at that time diagnosis of acute hydronephrosis with urinary obstruction due to ureteral calculus with discharge to home with referral to urology with Dr. Viramontes with noted renal insufficiency at that time with most recent reevaluation 03/04/2023 with onset of significant malaise as well as nausea and emesis and subjective fever with abdominal discomfort with unremarkable reported work-up at that time discharged to home on Zofran however he now represents secondary to persistent flank discomfort bilaterally, abdominal pain, nausea and emesis as well as fever. #1. Acute Sepsis (Tachypnea, tachycardia, known source, GM, still awaiting lactic acid level) secondary to Acute Complicated Pyelonephritis: Will admit to PCU to be cautious as patient still mildly tachycardic, UA upon ED evaluation remarkable, pending UCx, continue IVFs, monitor I/Os, continue IV Rocephin w/ transition as able pending sensitivities and speciation. Bld cx x 2 obtained in the ED although after antibiotic initiation. Still awaiting lactic acid. Will administer an additional 1 L IV fluids and continue with maintenance IV fluids. No obvious evidence of obstructing stone on film but if necessary may consider involving urology although from discussion with patient and family he never did follow-up unfortunately outpatient. #2. Acute kidney injury: Secondary to acute presentation #1. Admission BUN/Cr /1.88, prior baseline creatinine noted to be 0.8-1.2, noted 01/31/23 with acute hydronephrosis with urinary obstruction due to ureteral calculus w/ Cr at that time 1.3. Will hydrate, hold nephrotoxic medications and repeat chemistry in AM. If no improvement would plan FeNa. #3. Hypokalemia: Admission K+ 3.4, magnesium level requested, supplementation given, repeat level in AM. #4. CAD: Status post PCI, we will continue patient home aspirin, Plavix, statin, metoprolol, not on SOCO inhibitor/ARB however regardless given GM would defer. #5. Anxiety and depression: We will continue patient on Paxil regimen however will monitor renal function if worsens low threshold to alter or hold. #6. Diabetes mellitus type II: Hold oral home regimen, ADA diet, accu checks w/ ISS. #7. Hypothyroidism: We will continue patient home levothyroxine regimen. #8. Hypertension: Continue home regimen including metoprolol, isosorbide cautiously given presentation although BP has been stable, PRN hydralazine. #9. Hyperlipidemia: We will continue patient home statin therapy. #10. Morbid Obesity: Weight loss and lifestyle changes encouraged. #11. Former tobacco use: Encourage continued tobacco cessation. #12. JOSIAH: BIPAP q HS. #13. DVT prophylaxis: Heparin. #14. CODE status: Patient HCPOA and living will is not in place. His who is present would be his decision maker if he was unable. Full code. Admission Evaluation Time spent evaluating chart, patient history, patient evaluation, care planning and discussion with specialists: 75 minutes. Charges/Coding Visit Charges Inpatient E&M: 15144 Init Hosp L3
[2023-03-18 01:12] LABS: Magnesium 2.3 mg/dL (1.6-2.6)
[2023-03-18] MEDS: Acetaminophen 325 MG Tablet 650 MG PO ×4 (01:46→19:41)
[2023-03-18] MEDS: 0.9% Normal Saline 1,000 ML 999 ML IV (01:51)
[2023-03-18] MEDS: 0.9% Saline Lock 10 ML Syringe IV (01:53)
[2023-03-18] MEDS: oxyCODONE 5 MG Tablet PO ×3 (01:57→21:35)
[2023-03-18] MEDS: Potassium Chloride Oral Tablet 20 MEQ 40 MEQ PO (01:57)
[2023-03-18 02:03] LABS: International Normalized Ratio 1.2; Prothrombin Time (Protime)PT. 15.2 SECONDS (11.7-14.9)
[2023-03-18 02:14] LABS: Lactic Acid 1.2 mmol/L (0.4-1.9)
[2023-03-18] MEDS: 0.9% Normal Saline 1,000 ML 125 ML IV (02:59)
[2023-03-18] MEDS: Isosorbide DN 10 MG Tablet 5 MG PO ×2 (05:44→17:24)
[2023-03-18] MEDS: Levothyroxine 125 MCG Tablet PO (05:44)
[2023-03-18 06:58] LABS: Bedside Glucose 131 mg/dL (74-106)
[2023-03-18 07:05] LABS: Absolute Lymphocyte Count 1.33 X10^3/uL (0.83-4.51); Absolute Neutrophil Count 11.9 X10^3/uL (2.0-7.7); Basophil# 0.04 X10^3/uL; Basophil% 0.3 % (0-1); Hematocrit 36.1 % (40-54); Hemoglobin 11.3 g/dL (13.0-16.5); Lymphocyte # 1.33 X10^3/ul (0.83-4.51); Lymphocyte % 8.9 % (19-41); Mean Corp Hgb Conc 31.3 g/dL (32-36); Mean Corpuscular Hgb 27.9 pg (27.0-32.0); Mean Corpuscular Volume 89.1 fL (80-94); Mean Platelet Vol. 9.9 fl (6.2-12.0); Monocyte# 1.61 X10^3/uL; Monocyte% 10.8 % (0-10); NRBC Flagged by Analyzer 0 % (0-5); Neutrophil # 11.86 X10^3/uL (2.7-7.7); Neutrophil % 79.3 % (47-70); POSITIVE DIFFERENTIAL YES; Platelet Count 175 K/mm3 (150-450); RBC Distribution Width CV 14.8 % (11.6-14.6); RBC Distribution Width SD 48.4 fl (35.1-43.9); Red Blood Count 4.05 M/mm3 (4.6-6.2); White Blood Count 14.9 K/mm3 (4.4-11.0)
[2023-03-18 07:06] LABS: Differential Indicated SCAN CRITERIA MET
[2023-03-18 07:26] LABS: Anisocytosis 1+
[2023-03-18 07:36] LABS: ALB/GLOB Ratio 0.5 RATIO (0.9-2.4); AST(SGOT) 38 U/L (15-37); Alanine Aminotransfer ALT/SGPT 46 U/L (16-61); Albumin, Serum 2.3 g/dL (3.2-5.0); Alkaline Phosphatase 87 U/L (45-117); Anion Gap 4 (5-15); BUN 15 mg/dL (7-18); BUN/Creat Ratio 10.5 RATIO (10-20); Calcium,Total 7.8 mg/dL (8.5-10.1); Chloride 102 mmol/L (98-107); Creatinine, Serum 1.43 mg/dL (0.70-1.30); EST Glomerular Filtration Rate 55 mL/min (>60); Est Glom Filt Rate - Afr Amer 67 mL/min (>60); Estimated Creatinine Clearance 58.46 ml/min; Glucose 133 mg/dL (74-106); Potassium 3.9 mmol/L (3.5-5.1); Protein, Total 7.3 g/dL (6.4-8.2); Sodium Level 135 mmol/L (136-145)
[2023-03-18] MEDS: Heparin Injection (Vial) 5,000 UNIT/ML VIAL 5000 UNIT SC ×2 (08:06→21:10)
[2023-03-18] MEDS: Paroxetine 20 MG Tablet 40 MG PO (08:07)
[2023-03-18] MEDS: Clopidogrel Bisulfate 75 MG Tablet PO (08:07)
[2023-03-18] MEDS: Metoprolol(XL)Succ 100 MG Tablet PO (08:07)
[2023-03-18] MEDS: Aspirin E.C. 81 MG Tablet PO (08:07)
--- NOTE | 2023-03-18 08:07 | PN.HOSP_ITS ---
Reason for Visit Reason for Visit: Diagnoses Tubulo-interstitial nephritis, not specified as acute or chronic (03/18/23) Follow-up for sepsis due to acute on chronic pyelonephritis Subjective Subjective Admitted with abdominal pain, nausea, vomiting and back pain and fever 100.7 Fahrenheit Objective Data Objective Data Vital Signs: Vital Signs Temp Pulse Resp BP Pulse Ox O2 Del Method O2 Flow Rate 98.5 F 103 H 16 126/73 H 95 Nasal Cannula 2 03/18/23 08:03 03/18/23 08:03 03/18/23 08:03 03/18/23 08:03 03/18/23 08:03 03/18/23 08:03 03/18/23 08:03 Oxygen Flow Rate (L/min) 2 Oxygen Delivery Method Nasal Cannula Weight: 279 lb 5.211 oz Body Mass Index (BMI) 42.5 Intake & Output: Intake and Output for Last 24 Hours 03/16/23 03/17/23 03/18/23 23:59 23:59 23:59 Intake Total 4550 / 4550 Output Total 200 / 200 Balance 4350 / 4350 Lab / Micro Data 03/18/23 06:49 03/18/23 06:49 Labs: Laboratory Results - last 24 hr 03/17/23 22:04: WBC 18.7 H, RBC 4.83, Hgb 13.5, Hct 42.5, MCV 88.0, MCH 28.0, MCHC 31.8 L, RDW Std Deviation 47.5 H, RDW Coeff of Melva 14.6, Plt Count 219, MPV 9.5, Immature Gran % (Auto) 0.700, Neut % (Auto) 84.4 H, Lymph % (Auto) 6.4 L, [place] % (Auto) 8.2, Eos % (Auto) 0.0, Baso % (Auto) 0.3, Absolute Neuts (auto) 15.8 H, Absolute Lymphs (auto) 1.20, Nucleated RBC % 0, Differential Comment SCANNED, Diff Path Review January, Sodium 131 L, Potassium 3.4 L, Chloride 95 L , Carbon Dioxide 31.0, Anion Gap 5, BUN 19 H, Creatinine 1.88 H, Estim Creat Clear Calc 44.47, Est GFR (MDRD) Af Amer 49 L, Est GFR (MDRD) Non-Af 40 L, BU N/Creatinine Ratio 10.1, Glucose 143 H, Calcium 9.1, Magnesium 2.3, Total Zak irubin 1.00, AST 45 H, ALT 58, Alkaline Phosphatase 109, Total Protein 8.8 H, Albumin 2.8 L, Globulin 6.0 H, Albumin/Globulin Ratio 0.5 L, Lipase 25 03/17/23 22:10: Urine Color Yellow, Urine Clarity Cloudy, Urine pH 5.0, Ur Specific [place] 1.020, Urine Protein 500 H, Urine Glucose (UA) Normal, Urine Ketones 15 H, Urine Occult Blood 250 H, Urine Nitrite Positive H, Urine Bilirubin 1 H, Urine Urobilinogen 4 H, Ur Leukocyte Esterase 100 H, Urine RBC > 100 SEEN, Urine WBC 25-50 SEEN, Ur Squamous Epith Cells 0-5 SEEN, Urine Bacteria 2+, Hyaline Casts 0-5 SEEN, Fine Granular Casts 5-10 SEEN, Urine Mucus 0 SEEN 03/18/23 01:40: PT 15.2 H, INR 1.2, Lactic Acid 1.2 03/18/23 06:34: POC Glucose 131 H 03/18/23 06:49: WBC 14.9 H, RBC 4.05 L, Hgb 11.3 L, Hct 36.1 L, MCV 89.1, MCH 27.9, MCHC 31.3 L, RDW Std Deviation 48.4 H, RDW Coeff of Melva 14.8 H, Plt Count 175, MPV 9.9, Immature Gran % (Auto) 0.700, Neut % (Auto) 79.3 H, Lymph % (Auto) 8.9 L, [place] % (Auto) 10.8 H, Eos % (Auto) 0.0, Baso % (Auto) 0.3, Absolute Neuts (auto) 11.9 H, Absolute Lymphs (auto) 1.33, Nucleated RBC % 0, Diff Path Review May foll, Anisocytosis 1+, Sodium 135 L, Potassium 3.9, Chloride 102, Carbon Dioxide 29.0, Anion Gap 4 L, BUN 15, Creatinine 1.43 H, Estim Creat Clear Calc 58.46, Est GFR (MDRD) Af Amer 67, Est GFR (MDRD) Non-Af 55 L, BUN/Creatinine Ratio 10.5, Glucose 133 H, Calcium 7.8 L, Total Bilirubin 0.80, AST 38 H, ALT 46, Alkaline Phosphatase 87, Total Protein 7.3, Albumin 2.3 L, Globulin 5.0 H, Albumin/Globulin Ratio 0.5 L Micro: Microbiology 03/17/23 19:29 Nasal Secretion SARS-CoV-2 Antigen (Rapid) - Final Radiography Diagnostic Testing: Radiology Impression Chest X-Ray 03/17/23 19:30 IMPRESSION: Normal x-ray examination of the chest. Electronically Signed: Sven Johnson MD at 19:45 EDT , Abdomen/Pelvis CT 03/17/23 21:51 IMPRESSION: Heterogeneous appearing kidneys suspicious for acute pyelonephritis. No renal stones or obstructive uropathy. Electronically Signed: Danielle Sky MD at 23:11 EDT Reading Location ID and State: [id number] / Tel , Service support , Physical Exam Narrative Seen and examined. Talked to the patient's near the bedside. Complain of bilateral flank pain with radiation to anterior abdominal wall Physical exam General: Alert, Oriented x3, Cooperative, morbid obesity BMI 42.5 kg/m?. HEENT: Atraumatic, PERRLA, EOMI, Normocephalic Oral: No Gingival or Mucosal Lesions/ Ulcerations Neck: Supple, No JVD, Negative Carotid Bruits Lungs: Air entry diminished in bilateral lung bases. No crepitation/rhonchi Cardiovascular: Regular rate, Regular Rhythm, Normal S1, Normal S2, No murmurs Abdomen: Bowel Sounds Present, Soft, Non Tender, Non-Distended : Bilateral renal angle tenderness right more than left. Mild suprapubic tenderness. Dysuria present. Increased frequency but denies urgency. Extremities: Mild bilateral pitting edema, Capillary Refill Less than 3 Seconds Skin: No rashes, No breakdown Musculoskeletal: No Tenderness to Palpation of Joints or Extremities. ROM restricted. Neurological: Cranial nerves II-XII grossly intact, DTR 2+/4 and Symmetrical, Neuro grossly intact Psych/Mental Status: Flat affect. Assessment & Plan Assessment/Plan (1) Pyelonephritis: PLAN: Plan The patient is a 52 y/o M is being admitted for abdominal cramping, bilateral flank discomfort since, nausea, vomiting, back pain and fever and lab and imaging finding consistent with sepsis due to acute complicated pyelonephritis #1. Sepsis due to bilateral Acute Complicated Pyelonephritis: Patient is being admitted to PCU. The patient presented with sepsis with clinical indicators of tachycardia, high fever 103.3 Fahrenheit, leukocytosis due to bilateral john lonephritis with cystitis with acute sepsis-related organ dysfunction as evidenced by GM on CKD 3. Blood cultures x2 and urine culture is ordered and are pending. Patient was well rested as per sepsis protocol. Patient is +5 L positive fluid balance. Patient on antibiotic IV ceftriaxone. IV fluid rate decreased to 50 mill per hour. #2. Acute kidney injury on CKD stage IIIa most likely due to sepsis: Bladder scan showed 0 amount after voiding urine. Urologist is consulted. CT abdomen with IV contrast showed no renal stones or hydronephrosis but heterogeneous appearance of renal cortex with partial loss of corticomedullary junction. Trace perinephric stranding. #3. Hypokalemia: Admission K+ 3.4, magnesium level requested, supplementation given, repeat level was 3.9 today #4. CAD: Status post PCI, continue patient home aspirin, Plavix, statin, metoprolol, not on SOCO inhibitor/ARB due to GM #5. Anxiety and depression: continue patient on Paxil regimen. #6. Diabetes mellitus type II: Hold oral home regimen, ADA diet, accu checks w/ ISS. #7. Hypothyroidism: continue patient home levothyroxine regimen. #8. Hypertension: Continue home regimen including metoprolol, isosorbide cautiously given presentation although BP has been stable, PRN hydralazine. #9. Hyperlipidemia: continue patient home statin therapy. #10. Morbid Obesity: Weight loss and lifestyle changes encouraged. #11. Former tobacco use: Encourage continued tobacco cessation. #12. JOSIAH: BIPAP q HS. #13. DVT prophylaxis: Heparin. #14. CODE status: Patient HCPOA and living will is not in place. His who is present would be his decision maker if he was unable. Full code. Clinical Impression(s) from Imaging Studies Chest X-Ray 03/17/23 19:30 IMPRESSION: Normal x-ray examination of the chest. Abdomen/Pelvis CT 03/17/23 21:51 IMPRESSION: Heterogeneous appearing kidneys suspicious for acute pyelonephritis. No renal stones or obstructive uropathy. Charges/Coding Visit Charges Inpatient E&M: 10896 Subs Hosp L2
[2023-03-18] MEDS: Potassium Chloride 40 MEQ in 0.9% Normal Saline 1,000 ML 50 MEQ IV (09:57)
[2023-03-18 10:49] LABS: Bedside Glucose 149 mg/dL (74-106)
[2023-03-18] MEDS: Ondansetron 4 MG/2 ML Vial IV (13:14)
--- NOTE | 2023-03-18 14:15 | CASEMGMT ---
NEL FLANAGAN Discharge Planning Assessment: Face to Face with patient for initial transition planning/care coordination assessment. NEL FLANAGAN introduced self and role at [facility], Pt sitting on edge of bed, alert but states he feels foggy. Pt voices understanding and is agreeable to participating in assessment. Pt's at bedside and facilitated some assessment responses.? Care providers, pharmacy,?and demographics verified. ? Admitting Dx: Pyleonephritis, sepsis PCP: Dee Specialists: none; Discussed pt not following up with Dr. Viramontes. Denies any barriers to follow-up and states he just got busy with other things. Preferred Pharmacy: [facility] Insurance: [employer] Prescription Benefit: yes? LNOK: spouse Liliana Living Arrangements: Pt lives with spouse and two sons (27 and 24yo) in a two story home. Pt is independent at baseline with all ADLs including self care and house hold tasks. Pt denies any difficulty with stairs and is currently employed Transportation: Pt drives and denies any concerns with transportation DME: [employer] from [employer]; glucometer and supplies but pt does not routinely monitor his blood glucose. HHC/SNF: none ? Plan: Pt plans to return home with the support of family at discharge. Denies any specific discharge needs at this time. Will continue to monitor and assist with discharge needs as identified. Kamaljit Wilkerson RN CM
--- NOTE | 2023-03-18 15:21 | CON.PCM.UR_ITS ---
Assessment & Plan Assessment/Plan (1) Pyelonephritis: PLAN: 52-year-old male with multiple medical problems multiple risk factors who presents with pyelonephritis fevers and chills a CAT scan that demonstrated stranding in both kidneys consistent with pyelonephritis urine cultures and blood cultures pending of course once these come back we can tailor his antibiotics towards the results from urological standpoint no intervention is n ecessary for now we will follow with you but if he has any questions or concerns give me a call. HPI Consult Data Date of Consult: 03/18/23 HPI Narrative HPI Narrative: 52-year-old male presented to the emergency room on March 17 with high fevers and chills CT scan was done that demonstrated what appears to be bilateral pyelonephritis I reviewed the CT scan which demonstrated bilateral pyelonephritis, no obstructing stones, no hydroureter, and once any masses or abscess formation. Patient has been here with antibiotics and has not been improving. Urine cultures pending blood cultures pending we are awaiting results of these. Continues to receive ceftriaxone. He denies any problems going to the bathroom or urinating or any frequency or urgency problems with his prostate. He does have multiple medical problems as well. [facility] Medical History Anxiety Atherosclerosis of coronary artery of [place] heart without angina pectoris BiPAP (biphasic positive airway pressure) dependence Colitis Depression Depression Diabetes Elevated liver enzymes Essential hypertension Family history of heart disease Former smoker Hyperlipidemia Hypertension Hypertension Kidney stones Leukocytosis Myocardial infarct Nausea vomiting and diarrhea JOSIAH (obstructive sleep apnea) Sepsis Sleep apnea Type 2 diabetes mellitus Home Medications amlodipine 10 mg tablet 10 mg PO DAILY blood pressure 03/15/18 [History Last Taken 03/17/23] levothyroxine 125 mcg tablet 125 mcg PO DAILY thyroid 02/08/19 [History Last Taken 03/17/23] atorvastatin 40 mg tablet 40 mg PO QHS cholesterol 10/09/22 [History Last Taken Unknown] metformin 500 mg tablet 1,000 mg PO BID blood sugar 10/09/22 [History Last Taken 03/17/23] nystatin-triamcinolone topical cream 1 applic topical .COMPLEX penile rash 10/09/22 [History Last Taken Unknown] paroxetine HCl 40 mg tablet 40 mg PO DAILY depression 10/09/22 [History Last Ta loretta Unknown] aspirin 81 mg tablet,delayed release (Adult Aspirin Regimen) 81 mg PO DAILY #90 tabs 10/13/22 [Rx Last Taken 03/17/23] metoprolol succinate 50 mg tablet,extended release 24 hr 100 mg PO DAILY HEART 10/13/22 [History Last Taken Unknown] nitroglycerin 0.4 mg sublingual tablet 0.4 mg sublingual Q5M PRN Cardiac/Chest Pain #14 tabs 10/24/22 [Rx Last Taken Unknown] clopidogrel 75 mg tablet See Rx Instructions .Route .COMPLEX #30 tabs 11/17/22 [Rx Last Taken 03/17/23] oxycodone-acetaminophen 5 mg-325 mg tablet 1 tab PO Q6H PRN PRN pain 5 days #20 TABLETS 01/31/23 [Rx Last Taken Unknown] isosorbide dinitrate 5 mg tablet 5 mg PO BID #60 tabs 02/13/23 [Rx Last Taken 03/17/23] ondansetron 4 mg disintegrating tablet 4 mg PO Q6H PRN nausea and vomiting #7 tabs 03/04/23 [Rx Last Taken Unknown] Allergy/AdvReac Type Severity Reaction Status Date / Time No Known Allergies Allergy Verified 03/04/23 21:55 Family History Father Myocardial infarction, Onset Age: 45 Mother Hypertension Mixed hyperlipidemia Grandmother CHF (congestive heart failure) Surgical History History of coronary artery stent placement (~10/24/22) History of tonsillectomy Status post excision of lipoma Social History household members: spouse Smoking Status: Former smoker alcohol intake: current details: occasional substance use type: does not use caffeine: Yes Type: carbonated beverages Number of servings: 6 Physical Exam Const alert and oriented x3 General Appearance: cooperative HEENT normocephalic, head/scalp atraumatic, EAC's normal and TM's normal bilaterally Eyes PERRL and EOMs intact bilaterally Pupil: sluggish Neck no lymphadenopathy, supple and no JVD General: trachea midline Lymph Lymphatic: no lymphadenopathy noted, lymphedema and lymphadenopathy Resp normal respiratory effort, normal air movement and clear to auscultation bilaterally Cardio regular rate, regular rhythm and peripheral pulses 2+ throughout GI soft to palpation, non-tender and non-distended Extremity normal capillary refill and no clubbing, cyanosis or edema General Extremity: no tenderness to palpation of joints or extremities Skin no rashes or lesions noted General Skin Exam: turgor normal Lesions: no lesions Rashes: no rashes Neuro CN's II-XII intact bilaterally Speech: speech normal Motor Exam: strength 5/5 throughout; Negative for general weakness Psych thought process normal, cooperative and affect normal Appearance: appropriate Lab / Micro Data 03/18/23 06:49 03/18/23 06:49 Labs: Laboratory Results - last 24 hr 03/17/23 22:04: WBC 18.7 H, RBC 4.83, Hgb 13.5, Hct 42.5, MCV 88.0, MCH 28.0, MCHC 31.8 L, RDW Std Deviation 47.5 H, RDW Coeff of Melva 14.6, Plt Count 219, MPV 9.5, Immature Gran % (Auto) 0.700, Neut % (Auto) 84.4 H, Lymph % (Auto) 6.4 L, [place] % (Auto) 8.2, Eos % (Auto) 0.0, Baso % (Auto) 0.3, Absolute Neuts (auto) 15.8 H, Absolute Lymphs (auto) 1.20, Nucleated RBC % 0, Differential Comment SCANNED, Diff Path Review January, Sodium 131 L, Potassium 3.4 L, Chloride 95 L , Carbon Dioxide 31.0, Anion Gap 5, BUN 19 H, Creatinine 1.88 H, Estim Creat Clear Calc 44.47, Est GFR (MDRD) Af Amer 49 L, Est GFR (MDRD) Non-Af 40 L, BUN/Creatinine Ratio 10.1, Glucose 143 H, Calcium 9.1, Magnesium 2.3, Total Bilirubin 1.00, AST 45 H, ALT 58, Alkaline Phosphatase 109, Total Protein 8.8 H, Albumin 2.8 L, Globulin 6.0 H, Albumin/Globulin Ratio 0.5 L, Lipase 25 03/17/23 22:10: Urine Color Yellow, Urine Clarity Cloudy, Urine pH 5.0, Ur Specific [place] 1.020, Urine Protein 500 H, Urine Glucose (UA) Normal, Urine Ketones 15 H, Urine Occult Blood 250 H, Urine Nitrite Positive H, Urine B ilirubin 1 H, Urine Urobilinogen 4 H, Ur Leukocyte Esterase 100 H, Urine RBC > 100 SEEN, Urine WBC 25-50 SEEN, Ur Squamous Epith Cells 0-5 SEEN, Urine Bacteria 2+, Hyaline Casts 0-5 SEEN, Fine Granular Casts 5-10 SEEN, Urine Mucus 0 SEEN 03/18/23 01:40: PT 15.2 H, INR 1.2, Lactic Acid 1.2 03/18/23 06:34: POC Glucose 131 H 03/18/23 06:49: WBC 14.9 H, RBC 4.05 L, Hgb 11.3 L, Hct 36.1 L, MCV 89.1, MCH 27.9, MCHC 31.3 L, RDW Std Deviation 48.4 H, RDW Coeff of Melva 14.8 H, Plt Count 175, MPV 9.9, Immature Gran % (Auto) 0.700, Neut % (Auto) 79.3 H, Lymph % (Auto) 8.9 L, [place] % (Auto) 10.8 H, Eos % (Auto) 0.0, Baso % (Auto) 0.3, Absolute Neuts (auto) 11.9 H, Absolute Lymphs (auto) 1.33, Nucleated RBC % 0, Diff Path Review January, Anisocytosis 1+, Sodium 135 L, Potassium 3.9, Chloride 102, Carbon Dioxide 29.0, Anion Gap 4 L, BUN 15, Creatinine 1.43 H, Estim Creat Clear Calc 58.46, Est GFR (MDRD) Af Amer 67, Est GFR (MDRD) Non-Af 55 L, BUN/Creatinine Ratio 10.5, Glucose 133 H, Calcium 7.8 L, Total Bilirubin 0.80, AST 38 H, ALT 46, Alkaline Phosphatase 87, Total Protein 7.3, Albumin 2.3 L, Globulin 5.0 H, Albumin/Globulin Ratio 0.5 L 03/18/23 10:31: POC Glucose 149 H Micro: Microbiology 03/17/23 19:29 Nasal Secretion SARS-CoV-2 Antigen (Rapid) - Final Radiology Impression Chest X-Ray 03/17/23 19:30 IMPRESSION: Normal x-ray examination of the chest. Electronically Signed: Sven Johnson MD at 19:45 EDT , Abdomen/Pelvis CT 03/17/23 21:51 IMPRESSION: Heterogeneous appearing kidneys suspicious for acute pyelonephritis. No renal stones or obstructive uropathy. Electronically Signed: Danielle Sky MD at 23:11 EDT Reading Location ID and State: [id number] / Tel , Service support ,
[2023-03-18 17:25] LABS: Bedside Glucose 96 mg/dL (74-106)
[2023-03-18] MEDS: Ceftriaxone 1 GM/50 ML BAG IV (21:10)
[2023-03-18] MEDS: Atorvastatin Calcium 40 MG Tablet PO (21:10)
[2023-03-18 23:39] LABS: Bedside Glucose 125 mg/dL (74-106)
[2023-03-19] VITALS (12 sets, daily range): BP systolic 108–151; BP diastolic 76–100; PULSE 76–91; RESP 12–18; TEMP 36.1–37.8; O2SAT 84–97; BMI 42.5
[2023-03-19] MEDS: Acetaminophen 325 MG Tablet 650 MG PO ×4 (01:17→19:47)
[2023-03-19] MEDS: Levothyroxine 125 MCG Tablet PO (06:40)
[2023-03-19] MEDS: Isosorbide DN 10 MG Tablet 5 MG PO ×2 (06:40→17:31)
[2023-03-19 07:10] LABS: Bedside Glucose 90 mg/dL (74-106)
[2023-03-19] MEDS: Aspirin E.C. 81 MG Tablet PO (09:12)
[2023-03-19] MEDS: Heparin Injection (Vial) 5,000 UNIT/ML VIAL 5000 UNIT SC ×2 (09:12→22:07)
[2023-03-19] MEDS: amLODIPine 10 MG Tablet 5 MG PO (09:12)
[2023-03-19] MEDS: Clopidogrel Bisulfate 75 MG Tablet PO (09:13)
[2023-03-19] MEDS: Paroxetine 20 MG Tablet 40 MG PO (09:13)
[2023-03-19] MEDS: Metoprolol(XL)Succ 100 MG Tablet PO (09:14)
--- NOTE | 2023-03-19 09:40 | PN.HOSP_ITS ---
Reason for Visit Reason for Visit: Diagnoses Tubulo-interstitial nephritis, not specified as acute or chronic (03/18/23) Subjective Subjective Follow-up for acute bilateral pyelonephritis Objective Data Objective Data Vital Signs: Vital Signs Temp Pulse Resp BP Pulse Ox O2 Del Method O2 Flow Rate 99.4 F H 91 18 140/86 H 94 Nasal Cannula 2 03/19/23 09:07 03/19/23 09:14 03/19/23 09:07 03/19/23 09:07 03/19/23 09:07 03/19/23 09:07 03/19/23 09:07 Oxygen Flow Rate (L/min) 2 Oxygen Delivery Method Nasal Cannula Weight: 279 lb 8.738 oz Body Mass Index (BMI) 42.5 Intake & Output: Intake and Output for Last 24 Hours 03/17/23 03/18/23 03/19/23 23:59 23:59 23:59 Intake Total 5291.67 / 5531.67 1380 / 1380 Output Total 200 / 600 700 / 700 Balance 5091.67 / 4931.67 680 / 680 Lab / Micro Data 03/19/23 10:00 03/19/23 10:00 Labs: Laboratory Results - last 24 hr 03/18/23 10:31: POC Glucose 149 H 03/18/23 17:06: POC Glucose 96 03/18/23 21:13: POC Glucose 125 H 03/19/23 06:35: POC Glucose 90 Micro: Microbiology 03/17/23 19:29 Nasal Secretion SARS-CoV-2 Antigen (Rapid) - Final Physical Exam Narrative Seen and examined. Still has bilateral flank pain with radiation to anterior abdominal wall although better than yesterday. Had fever and chills last night. Tmax 101.1 Fahrenheit afternoon yesterday. Patient has headache sometimes dizziness and systemic symptoms of infection. No vomiting. Nausea resolved. Physical exam General: Alert, Oriented x3, Cooperative, morbid obesity BMI 42.5 kg/m?. HEENT: Atraumatic, PERRLA, EOMI, Normocephalic Oral: Oral mucosa moist. No Gingival or Mucosal Lesions/ Ulcerations Neck: Supple, No JVD, Negative Carotid Bruits Lungs: Air entry diminished in bilateral lung bases. No crepitation/rhonchi Cardiovascular: Regular rate, Regular Rhythm, Normal S1, Normal S2, No murmurs Abdomen: Bowel Sounds Present, Soft, Non Tender, Non-Distended : Bilateral renal angle tenderness right more than left. No suprapubic tenderness. Mild dysuria, voiding dark urine spontaneously. No hematuria. Extremities: Mild bilateral pitting edema, Capillary Refill Less than 3 Seconds Skin: No rashes, No breakdown Musculoskeletal: No Tenderness to Palpation of Joints or Extremities. ROM restricted. Neurological: Cranial nerves II-XII grossly intact, DTR 2+/4 and Symmetrical, Neuro grossly intact Psych/Mental Status: Flat affect. Assessment & Plan Assessment/Plan (1) Pyelonephritis: PLAN: Plan The patient is a 52 y/o M is being admitted for abdominal cramping, bilateral flank discomfort since, nausea, vomiting, back pain and fever and lab and i maging finding consistent with sepsis due to acute complicated pyelonephritis #1. Sepsis due to bilateral Acute Complicated Pyelonephritis: Patient is being admitted to PCU. The patient presented with sepsis with clinical indicators of tachycardia, high fever 103.3 Fahrenheit, leukocytosis due to bilateral pyelonephritis with cystitis with acute sepsis-related organ dysfunction as evidenced by GM on CKD 3. Blood cultures x2 and urine culture is ordered and are pending. Patient was well rested as per sepsis protocol. Patient is +5 L positive fluid balance. Patient on antibiotic IV ceftriaxone. IV fluid rate decreased to 50 mill per hour. 03/19: Patient is still spikes fever and systemic symptoms symptoms due to sepsis. Continue IV antibiotic blood work reviewed. Glucose is controlled. Sepsis is resolved. Prelim urine culture shows presumptive E. coli more than 100,000 colonies. Blood cultures are pending. Patient evaluated by urologist and feels no acute intervention needed. #2. Acute kidney injury on CKD stage IIIa most likely due to sepsis: Bladder scan showed 0 amount after voiding urine. Urologist is consulted. CT abdomen with IV contrast showed no renal stones or hydronephrosis but heterogeneous appearance of renal cortex with partial loss of corticomedullary junction. Trace perinephric stranding. 03/19: Serial improvement in creatinine from 1.88-1.32. #3. Hypokalemia: Admission K+ 3.4, magnesium level requested, supplementation given, repeat level was 3.9 today 03/19 hypokalemia resolved. #4. CAD: Status post PCI, continue patient home aspirin, Plavix, statin, metoprolol, not on SOCO inhibitor/ARB due to GM #5. Anxiety and depression: continue patient on Paxil regimen. #6. Diabetes mellitus type II: Hold oral home regimen, ADA diet, accu checks w/ ISS. #7. Hypothyroidism: continue patient home levothyroxine regimen. #8. Hypertension: Continue home regimen including metoprolol, isosorbide cautiously given presentation although BP has been stable, PRN hydralazine. #9. Hyperlipidemia: continue patient home statin therapy. #10. Morbid Obesity: Weight loss and lifestyle changes encouraged. #11. Former tobacco use: Encourage continued tobacco cessation. #12. JOSIAH: BIPAP q HS. #13. DVT prophylaxis: Heparin. #14. CODE status: Patient HCPOA and living will is not in place. His who is present would be his decision maker if he was unable. Full code. Clinical Impression(s) from Imaging Studies Chest X-Ray 03/17/23 19:30 IMPRESSION: Normal x-ray examination of the chest. Abdomen/Pelvis CT 03/17/23 21:51 IMPRESSION: Heterogeneous appearing kidneys suspicious for acute pyelonephritis. No renal stones or obstructive uropathy. Charges/Coding Visit Charges Inpatient E&M: 81429 Subs Hosp L2
[2023-03-19 10:06] LABS: Pathologist Review Reviewed
[2023-03-19 10:14] LABS: Pathologist Review Reviewed
[2023-03-19 10:18] LABS: Absolute Lymphocyte Count 0.91 X10^3/uL (0.83-4.51); Absolute Neutrophil Count 5.9 X10^3/uL (2.0-7.7); Basophil# 0.03 X10^3/uL; Basophil% 0.4 % (0-1); Eosinophil# 0.02 X10^3/uL; Eosinophils% 0.3 % (0-5); Hematocrit 33.5 % (40-54); Hemoglobin 10.5 g/dL (13.0-16.5); Lymphocyte # 0.91 X10^3/ul (0.83-4.51); Lymphocyte % 11.8 % (19-41); Mean Corp Hgb Conc 31.3 g/dL (32-36); Mean Corpuscular Hgb 28.1 pg (27.0-32.0); Mean Corpuscular Volume 89.6 fL (80-94); Mean Platelet Vol. 10.4 fl (6.2-12.0); Monocyte# 0.79 X10^3/uL; Monocyte% 10.2 % (0-10); NRBC Flagged by Analyzer 0 % (0-5); Neutrophil # 5.93 X10^3/uL (2.7-7.7); Neutrophil % 76.9 % (47-70); Platelet Count 163 K/mm3 (150-450); RBC Distribution Width CV 15.1 % (11.6-14.6); RBC Distribution Width SD 49.8 fl (35.1-43.9); Red Blood Count 3.74 M/mm3 (4.6-6.2); White Blood Count 7.7 K/mm3 (4.4-11.0)
[2023-03-19 11:20] LABS: Anion Gap 6 (5-15); BUN 14 mg/dL (7-18); BUN/Creat Ratio 10.6 RATIO (10-20); Calcium,Total 8.5 mg/dL (8.5-10.1); Chloride 102 mmol/L (98-107); Creatinine, Serum 1.32 mg/dL (0.70-1.30); EST Glomerular Filtration Rate 61 mL/min (>60); Est Glom Filt Rate - Afr Amer 73 mL/min (>60); Estimated Creatinine Clearance 63.33 ml/min; Glucose 169 mg/dL (74-106); Potassium 3.8 mmol/L (3.5-5.1); Sodium Level 135 mmol/L (136-145)
[2023-03-19 12:06] LABS: Bedside Glucose 162 mg/dL (74-106)
[2023-03-19 16:56] LABS: Bedside Glucose 162 mg/dL (74-106)
[2023-03-19] MEDS: Ceftriaxone 1 GM/50 ML BAG IV (19:02)
[2023-03-19] MEDS: Atorvastatin Calcium 40 MG Tablet PO (22:08)
[2023-03-19 23:14] LABS: Bedside Glucose 175 mg/dL (74-106)
[2023-03-20] VITALS (7 sets, daily range): BP systolic 129–150; BP diastolic 77–95; PULSE 67–76; RESP 12–18; TEMP 35.9–36.9; O2SAT 94–97; BMI 42.5
[2023-03-20] MEDS: Levothyroxine 125 MCG Tablet PO (06:07)
[2023-03-20] MEDS: Isosorbide DN 10 MG Tablet 5 MG PO ×2 (06:07→16:43)
[2023-03-20 06:27] LABS: Absolute Lymphocyte Count 1.62 X10^3/uL (0.83-4.51); Absolute Neutrophil Count 5.1 X10^3/uL (2.0-7.7); Basophil# 0.03 X10^3/uL; Basophil% 0.4 % (0-1); Eosinophil# 0.06 X10^3/uL; Eosinophils% 0.8 % (0-5); Hematocrit 36.6 % (40-54); Hemoglobin 11.4 g/dL (13.0-16.5); Lymphocyte # 1.62 X10^3/ul (0.83-4.51); Lymphocyte % 20.9 % (19-41); Mean Corp Hgb Conc 31.1 g/dL (32-36); Mean Corpuscular Hgb 27.6 pg (27.0-32.0); Mean Corpuscular Volume 88.6 fL (80-94); Monocyte# 0.94 X10^3/uL; Monocyte% 12.1 % (0-10); NRBC Flagged by Analyzer 0 % (0-5); Neutrophil # 5.05 X10^3/uL (2.7-7.7); Neutrophil % 65.3 % (47-70); Platelet Count 177 K/mm3 (150-450); RBC Distribution Width CV 15.1 % (11.6-14.6); RBC Distribution Width SD 49.3 fl (35.1-43.9); Red Blood Count 4.13 M/mm3 (4.6-6.2); White Blood Count 7.7 K/mm3 (4.4-11.0)
[2023-03-20 06:40] LABS: Bedside Glucose 99 mg/dL (74-106)
[2023-03-20 07:06] LABS: Anion Gap 5 (5-15); BUN 13 mg/dL (7-18); BUN/Creat Ratio 11.4 RATIO (10-20); Calcium,Total 8.8 mg/dL (8.5-10.1); Chloride 104 mmol/L (98-107); Creatinine, Serum 1.14 mg/dL (0.70-1.30); EST Glomerular Filtration Rate 72 mL/min (>60); Est Glom Filt Rate - Afr Amer 87 mL/min (>60); Estimated Creatinine Clearance 73.33 ml/min; Glucose 103 mg/dL (74-106); Potassium 3.7 mmol/L (3.5-5.1); Sodium Level 137 mmol/L (136-145)
--- NOTE | 2023-03-20 09:25 | PN.HOSP_ITS ---
Reason for Visit Reason for Visit: Diagnoses Tubulo-interstitial nephritis, not specified as acute or chronic (03/18/23) Subjective Subjective Follow-up for ESBL E. coli bilateral pyelonephritis. Objective Data Objective Data Vital Signs: Vital Signs Temp Pulse Resp BP Pulse Ox O2 Del Method O2 Flow Rate 98.2 F 76 16 148/93 H 97 Room Air 2 03/20/23 04:00 03/20/23 04:00 03/20/23 04:00 03/20/23 04:00 03/20/23 04:00 03/20/23 08:14 03/19/23 22:00 FiO2 21 03/18/23 00:24 Oxygen Flow Rate (L/min) 2 Oxygen Delivery Method Room Air Weight: 279 lb 12.266 oz Body Mass Index (BMI) 42.5 Intake & Output: Intake and Output for Last 24 Hours 03/18/23 03/19/23 03/20/23 23:59 23:59 23:59 Intake Total 5291.67 / 5531.67 2590 / 2590 300 / 300 Output Total 200 / 600 1400 / 1400 400 / 400 Balance 5091.67 / 4931.67 1190 / 1190 -100 / -100 Lab / Micro Data 03/20/23 05:49 03/20/23 05:49 Labs: Laboratory Results - last 24 hr 03/17/23 22:04: Diff Path Review Reviewed 03/18/23 06:49: Diff Path Review Reviewed 03/19/23 10:00: WBC 7.7, RBC 3.74 L, Hgb 10.5 L, Hct 33.5 L, MCV 89.6, MCH 28.1, MCHC 31.3 L, RDW Std Deviation 49.8 H, RDW Coeff of Melva 15.1 H, Plt Count 163, MPV 10.4, Immature Gran % (Auto) 0.400, Neut % (Auto) 76.9 H, Lymph % (Auto) 11.8 L, [place] % (Auto) 10.2 H, Eos % (Auto) 0.3, Baso % (Auto) 0.4, Absolute Neuts (auto) 5.9, Absolute Lymphs (auto) 0.91, Nucleated RBC % 0, Sodium 135 L, Potassium 3.8, Chloride 102, Carbon Dioxide 27.0, Anion Gap 6, BUN 14, Creatinine 1.32 H, Estim Creat Clear Calc 63.33, Est GFR (MDRD) Af Amer 73, Est GFR (MDRD) Non-Af 61, BUN/Creatinine Ratio 10.6, Glucose 169 H, Calcium 8.5 03/19/23 11:43: POC Glucose 162 H 03/19/23 16:34: POC Glucose 162 H 03/19/23 22:04: POC Glucose 175 H 03/20/23 05:49: WBC 7.7, RBC 4.13 L, Hgb 11.4 L, Hct 36.6 L, MCV 88.6, MCH 27.6, MCHC 31.1 L, RDW Std Deviation 49.3 H, RDW Coeff of Melva 15.1 H, Plt Count 177, MPV 11.0, Immature Gran % (Auto) 0.500, Neut % (Auto) 65.3, Lymph % (Auto) 20.9, [place] % (Auto) 12.1 H, Eos % (Auto) 0.8, Baso % (Auto) 0.4, Absolute Neuts (auto) 5.1, Absolute Lymphs (auto) 1.62, Nucleated RBC % 0, Sodium 137, Potassium 3.7, Chloride 104, Carbon Dioxide 28.0, Anion Gap 5, BUN 13, Creatinine 1.14, Estim Creat Clear Calc 73.33, Est GFR (MDRD) Af Amer 87, Est GFR (MDRD) Non-Af 72, BUN/Creatinine Ratio 11.4, Glucose 103, Calcium 8.8 03/20/23 06:11: POC Glucose 99 Micro: Microbiology 03/17/23 22:10 Urine, Clean Catch Urine Culture - Preliminary ESBL Escherichia coli 03/17/23 19:29 Nasal Secretion SARS-CoV-2 Antigen (Rapid) - Final Physical Exam Narrative Seen and examined. Bilateral flank pain is better. Still has burning micturition. No fever last night or last 24 hours. Physical exam General: Alert, Oriented x3, Cooperative, morbid obesity BMI 42.5 kg/m?. HEENT: Atraumatic, PERRLA, EOMI, Normocephalic Oral: Oral mucosa moist. No Gingival or Mucosal Lesions/ Ulcerations Neck: Supple, No JVD, Negative Carotid Bruits Lungs: Air entry diminished in bilateral lung bases. No crepitation/rhonchi Cardiovascular: Regular rate, Regular Rhythm, Normal S1, Normal S2, No murmurs Abdomen: Bowel Sounds Present, Soft, Non Tender, Non-Distended : Mild bilateral renal angle tenderness right more than left. No suprapubic tenderness. Mild dysuria, voiding dark urine spontaneously. No hematuria. Extremities: Mild bilateral pitting edema, Capillary Refill Less than 3 Seconds Skin: No rashes, No breakdown Musculoskeletal: No Tenderness to Palpation of Joints or Extremities. ROM restricted. Neurological: Cranial nerves II-XII grossly intact, DTR 2+/4 and Symmetrical, Neuro grossly intact Psych/Mental Status: Flat affect. Assessment & Plan Assessment/Plan (1) Pyelonephritis: PLAN: Plan The patient is a 52 y/o M is being admitted for abdominal cramping, bilateral flank discomfort since, nausea, vomiting, back pain and fever and lab and imaging finding consistent with sepsis due to acute complicated pyelonephritis #1. Sepsis due to bilateral Acute Complicated Pyelonephritis: Patient is being admitted to PCU. The patient presented with sepsis with clinical indicators of tachycardia, high fever 103.3 Fahrenheit, leukocytosis due to bilateral pyelon ephritis with cystitis with acute sepsis-related organ dysfunction as evidenced by GM on CKD 3. Blood cultures x2 and urine culture is ordered and are pending. Patient was well rested as per sepsis protocol. Patient is +5 L positive fluid balance. Patient on antibiotic IV ceftriaxone. IV fluid rate decreased to 50 mill per hour. 03/19: Patient is still spikes fever and systemic symptoms symptoms due to sepsis. Continue IV antibiotic blood work reviewed. Glucose is controlled. Sepsis is resolved. Prelim urine culture shows presumptive E. coli more than 100,000 colonies. Blood cultures are pending. Patient evaluated by urologist and feels no acute intervention needed. 03/20: Urine culture growing ESBL E. coli. IV antibiotic's ceftriaxone changed to meropenem. ID consult reviewed and appreciated. On IV meropenem. Recommended ertapenem for 9 more days at the time of discharge probably anticipating tomorrow. Leukocytosis resolved. #2. Acute kidney injury on CKD stage IIIa most likely due to sepsis: Bladder scan showed 0 amount after voiding urine. Urologist is consulted. CT abdomen with IV contrast showed no renal stones or hydronephrosis but heterogeneous appearance of renal cortex with partial loss of corticomedullary junction. Trace perinephric stranding. 03/19: Serial improvement in creatinine from 1.88-1.32. 03/20 creatinine 1.14. GM resolved. #3. Hypokalemia: Admission K+ 3.4, magnesium level requested, supplementation given, repeat level was 3.9 today 03/19 hypokalemia resolved. #4. CAD: Status post PCI, continue patient home aspirin, Plavix, statin, metoprolol, not on SOCO inhibitor/ARB due to GM #5. Anxiety and depression: continue patient on Paxil regimen. #6. Diabetes mellitus type II: Hold oral home regimen, ADA diet, accu checks w/ ISS. #7. Hypothyroidism: continue patient home levothyroxine regimen. #8. Hypertension: Continue home regimen including metoprolol, isosorbide cautiously given presentation although BP has been stable, PRN hydralazine. #9. Hyperlipidemia: continue patient home statin therapy. #10. Morbid Obesity: Weight loss and lifestyle changes encouraged. #11. Former tobacco use: Encourage continued tobacco cessation. #12. JOSIAH: BIPAP q HS. #13. DVT prophylaxis: Heparin. #14. CODE status: Patient HCPOA and living will is not in place. His who is present would be his decision maker if he was unable. Full code. Clinical Impression(s) from Imaging Studies Chest X-Ray 03/17/23 19:30 IMPRESSION: Normal x-ray examination of the chest. Abdomen/Pelvis CT 03/17/23 21:51 IMPRESSION: Heterogeneous appearing kidneys suspicious for acute pyelonephritis. No renal stones or obstructive uropathy. Charges/Coding Visit Charges Inpatient E&M: 08515 Subs Hosp L2
[2023-03-20] MEDS: Clopidogrel Bisulfate 75 MG Tablet PO (09:29)
[2023-03-20] MEDS: Metoprolol(XL)Succ 100 MG Tablet PO (09:29)
[2023-03-20] MEDS: Aspirin E.C. 81 MG Tablet PO (09:29)
[2023-03-20] MEDS: amLODIPine 10 MG Tablet 5 MG PO (09:30)
[2023-03-20] MEDS: Paroxetine 20 MG Tablet 40 MG PO (09:30)
[2023-03-20] MEDS: 0.9% Saline Lock 10 ML Syringe IV (11:34)
[2023-03-20] MEDS: Heparin Injection (Vial) 5,000 UNIT/ML VIAL 5000 UNIT SC ×2 (11:34→22:34)
--- NOTE | 2023-03-20 11:34 | PCM.CONS.GEN ---
Assessment & Plan Assessment/Plan (1) Pyelonephritis: PLAN: Ucx with esbl ecoli. Now on meropenem, feeling better. Will d/c ceftriaxone order. Plan for discharge will be 9 more days IM ertapenem, he lives close to [place]. Will follow, thank you (2) Infection due to ESBL-producing Escherichia coli: HPI Consult Data Date of Consult: 03/20/23 HPI Narrative Reason for Consultation: pyelo HPI Narrative: ROMEL LOPES, is a 52 M with CAD, obesity, 01/2023 had hydro and ureteral obstructing stone, presented with several days fever, dysuria, diffuse abd and lower back pain, associated n/v and headache. Admitted 03/18 on ceftriaxone, now ucx with esbl ecoli, changed to [place], starting to feel a little better. Full ROS performed and neg except as noted above. [facility] Medical History Anxiety Atherosclerosis of coronary artery of [place] heart without angina pectoris BiPAP (biphasic positive airway pressure) dependence Colitis Depression Depression Diabetes Elevated liver enzymes Essential hypertension Family history of heart disease Former smoker Hyperlipidemia Hypertension Hypertension Kidney stones Leukocytosis Myocardial infarct Nausea vomiting and diarrhea JOSIAH (obstructive sleep apnea) Sepsis Sleep apnea Type 2 diabetes mellitus Home Medications amlodipine 10 mg tablet 10 mg PO DAILY blood pressure 03/15/18 [History Last Taken 03/17/23] levothyroxine 125 mcg tablet 125 mcg PO DAILY thyroid 02/08/19 [History Last Taken 03/17/23] atorvastatin 40 mg tablet 40 mg PO QHS cholesterol 10/09/22 [History Last Taken Unknown] metformin 500 mg tablet 1,000 mg PO BID blood sugar 10/09/22 [History Last Taken 03/17/23] nystatin-triamcinolone topical cream 1 applic topical .COMPLEX penile rash 10/09/22 [History Last Taken Unknown] paroxetine HCl 40 mg tablet 40 mg PO DAILY depression 10/09/22 [History Last Taken Unknown] aspirin 81 mg tablet,delayed release (Adult Aspirin Regimen) 81 mg PO DAILY #90 tabs 10/13/22 [Rx Last Taken 03/17/23] metoprolol succinate 50 mg tablet,extended release 24 hr 100 mg PO DAILY HEART 10/13/22 [History Last Taken Unknown] nitroglycerin 0.4 mg sublingual tablet 0.4 mg sublingual Q5M PRN Cardiac/Chest Pain #14 tabs 10/24/22 [Rx Last Taken Unknown] clopidogrel 75 mg tablet See Rx Instructions .Route .COMPLEX #30 tabs 11/17/22 [Rx Last Taken 03/17/23] oxycodone-acetaminophen 5 mg-325 mg tablet 1 tab PO Q6H PRN PRN pain 5 days #20 TABLETS 01/31/23 [Rx Last Taken Unknown] isosorbide dinitrate 5 mg tablet 5 mg PO BID #60 tabs 02/13/23 [Rx Last Taken 03/17/23] ondansetron 4 mg disintegrating tablet 4 mg PO Q6H PRN nausea and vomiting #7 tabs 03/04/23 [Rx Last Taken Unknown] Allergy/AdvReac Type Severity Reaction Status Date / Time No Known Allergies Allergy Verified 03/04/23 21:55 Family History Father Myocardial infarction, Onset Age: 45 Mother Hypertension Mixed hyperlipidemia Grandmother CHF (congestive heart failure) Surgical History History of coronary artery stent placement (~10/24/22) History of tonsillectomy Status post excision of lipoma Social History household members: spouse Smoking Status: Former smoker alcohol intake: current details: occasional substance use type: does not use caffeine: Yes Type: carbonated beverages Number of servings: 6 Physical Exam Const alert, oriented x3 and no apparent distress General Appearance: cooperative HEENT normocephalic and head/scalp atraumatic Eyes PERRL and EOMs intact bilaterally Neck supple and No nodes Resp normal air movement and clear to auscultation bilaterally Cardio regular rate and regular rhythm GI soft to palpation, non-tender and non-distended Extremity General Extremity: edema Skin no rashes or lesions noted Neuro CN's II-XII intact bilaterally Lab / Micro Data Attestation: I reviewed the patient's lab results. 03/20/23 05:49 03/20/23 05:49 Labs: Laboratory Results - last 24 hr 03/19/23 11:43: POC Glucose 162 H 03/19/23 16:34: POC Glucose 162 H 03/19/23 22:04: POC Glucose 175 H 03/20/23 05:49: WBC 7.7, RBC 4.13 L, Hgb 11.4 L, Hct 36.6 L, MCV 88.6, MCH 27.6, MCHC 31.1 L, RDW Std Deviation 49.3 H, RDW Coeff of Melva 15.1 H, Plt Count 177, MPV 11.0, Immature Gran % (Auto) 0.500, Neut % (Auto) 65.3, Lymph % (Auto) 20.9, [place] % (Auto) 12.1 H, Eos % (Auto) 0.8, Baso % (Auto) 0.4, Absolute Neuts (auto) 5.1, Absolute Lymphs (auto) 1.62, Nucleated RBC % 0, Sodium 137, Potassium 3.7, Chloride 104, Carbon Dioxide 28.0, Anion Gap 5, BUN 13, Creatinine 1.14, Estim Creat Clear Calc 73.33, Est GFR (MDRD) Af Amer 87, Est GFR (MDRD) Non-Af 72, BUN/Creatinine Ratio 11.4, Glucose 103, Calcium 8.8 03/20/23 06:11: POC Glucose 99 Micro: Microbiology 03/18/23 01:40 Blood Culture (Wb) - Anticubital Left Blood Culture - Preliminary No growth in 48 hours. 03/18/23 00:57 Blood Culture (Wb) - Anticubital Right Blood Culture - Preliminary No growth in 48 hours. 03/17/23 22:10 Urine, Clean Catch Urine Culture - Preliminary ESBL Escherichia coli
[2023-03-20 12:07] LABS: Bedside Glucose 115 mg/dL (74-106)
--- NOTE | 2023-03-20 14:16 | CASEMGMT ---
Addendum entered by Aviva Metcalf 03/20/23 15:19: NEL FLANAGAN called infusion center again and spoke with nurse. Per infusion nurse, patient cannot be setup until Thursday. Appointment made for Thursday03/23/23 at 12 noon. ATB order and clinical information faxed to Infusion Center. NEL FLANAGAN updated patient, patient voiced understanding. Updated hospitalist regarding discharge plan. Patient to discharge Thursday after ATB infusion. NEL FLANAGAN updated charge nurse and discharge plan. CM will continue to follow this patient and plan for a safe discharge. Original Note: NEL FLANAGAN updated that patient will need IM ertapenem. Per ID, patient prefers outpatient infusion at [facility]. NEL FLANAGAN in to discuss discharge plans with patient. Patient state he would like outpatient infusion at [facility]. NEL FLANAGAN called and left message for infusion center, awaiting call back. CM will continue to follow this patient and plan for a safe discharge.
[2023-03-20 16:36] LABS: Bedside Glucose 213 mg/dL (74-106)
[2023-03-20] MEDS: Acetaminophen 325 MG Tablet 650 MG PO (19:59)
[2023-03-20] MEDS: Atorvastatin Calcium 40 MG Tablet PO (22:34)
[2023-03-20 23:43] LABS: Bedside Glucose 198 mg/dL (74-106)
[2023-03-21] VITALS (8 sets, daily range): BP systolic 121–143; BP diastolic 71–85; PULSE 55–72; RESP 16–24; TEMP 35.8–37.1; O2SAT 93–98; BMI 42.2
[2023-03-21] MEDS: Levothyroxine 125 MCG Tablet PO (06:46)
[2023-03-21] MEDS: Isosorbide DN 10 MG Tablet 5 MG PO ×2 (06:46→16:41)
[2023-03-21 07:16] LABS: Absolute Lymphocyte Count 1.57 X10^3/uL (0.83-4.51); Absolute Neutrophil Count 4.9 X10^3/uL (2.0-7.7); Basophil# 0.03 X10^3/uL; Basophil% 0.4 % (0-1); Eosinophil# 0.09 X10^3/uL; Eosinophils% 1.2 % (0-5); Hematocrit 37.8 % (40-54); Hemoglobin 11.5 g/dL (13.0-16.5); Lymphocyte # 1.57 X10^3/ul (0.83-4.51); Mean Corp Hgb Conc 30.4 g/dL (32-36); Mean Corpuscular Hgb 27.3 pg (27.0-32.0); Mean Corpuscular Volume 89.8 fL (80-94); Mean Platelet Vol. 10.8 fl (6.2-12.0); Monocyte# 0.86 X10^3/uL; Monocyte% 11.5 % (0-10); NRBC Flagged by Analyzer 0 % (0-5); Neutrophil # 4.88 X10^3/uL (2.7-7.7); Neutrophil % 65.2 % (47-70); Platelet Count 183 K/mm3 (150-450); RBC Distribution Width CV 15.2 % (11.6-14.6); RBC Distribution Width SD 50.4 fl (35.1-43.9); Red Blood Count 4.21 M/mm3 (4.6-6.2); White Blood Count 7.5 K/mm3 (4.4-11.0)
[2023-03-21 07:55] LABS: Anion Gap 7 (5-15); BUN 11 mg/dL (7-18); BUN/Creat Ratio 10.8 RATIO (10-20); Chloride 104 mmol/L (98-107); Creatinine, Serum 1.02 mg/dL (0.70-1.30); EST Glomerular Filtration Rate 81 mL/min (>60); Est Glom Filt Rate - Afr Amer 99 mL/min (>60); Estimated Creatinine Clearance 81.96 ml/min; Glucose 126 mg/dL (74-106); Potassium 4.3 mmol/L (3.5-5.1); Sodium Level 140 mmol/L (136-145)
--- NOTE | 2023-03-21 08:06 | PCM.PN.HOSP ---
Reason for Visit Reason for Visit: Diagnoses Other bacterial infections of unspecified site (03/18/23) Tubulo-interstitial nephritis, not specified as acute or chronic (03/18/23) Extended spectrum beta lactamase (ESBL) resistance (03/18/23) Subjective Subjective Follow-up for bilateral pyelonephritis. Objective Data Objective Data Vital Signs: Vital Signs Temp Pulse Resp BP Pulse Ox O2 Del Method O2 Flow Rate 96.5 F L 68 20 H 121/78 H 96 CPAP 2 03/21/23 06:00 03/21/23 06:00 03/21/23 06:00 03/21/23 06:00 03/21/23 06:00 03/21/23 06:00 03/19/23 22:00 FiO2 21 03/18/23 00:24 Oxygen Flow Rate (L/min) 2 Oxygen Delivery Method CPAP Weight: 277 lb 8.992 oz Body Mass Index (BMI) 42.2 Intake & Output: Intake and Output for Last 24 Hours 03/19/23 03/20/23 03/21/23 23:59 23:59 23:59 Intake Total 2590 / 2590 2970 / 2970 120 / 120 Output Total 1400 / 1400 400 / 400 675 / 675 Balance 1190 / 1190 2570 / 2570 -555 / -555 Lab / Micro Data 03/21/23 06:13 03/21/23 06:13 Labs: Laboratory Results - last 24 hr 03/20/23 11:36: POC Glucose 115 H 03/20/23 16:17: POC Glucose 213 H 03/20/23 22:28: POC Glucose 198 H 03/21/23 06:13: WBC 7.5, RBC 4.21 L, Hgb 11.5 L, Hct 37.8 L, MCV 89.8, MCH 27.3, MCHC 30.4 L, RDW Std Deviation 50.4 H, RDW Coeff of Melva 15.2 H, Plt Count 183, MPV 10.8, Immature Gran % (Auto) 0.700, Neut % (Auto) 65.2, Lymph % (Auto) 21.0, [place] % (Auto) 11.5 H, Eos % (Auto) 1.2, Baso % (Auto) 0.4, Absolute Neuts (auto) 4.9, Absolute Lymphs (auto) 1.57, Nucleated RBC % 0, Sodium 140, Potassium 4.3, Chloride 104, Carbon Dioxide 29.0, Anion Gap 7, BUN 11, Creatinine 1.02, Estim Creat Clear Calc 81.96, Est GFR (MDRD) Af Amer 99, Est GFR (MDRD) Non-Af 81, BUN/Creatinine Ratio 10.8, Glucose 126 H, Calcium 9.0 Micro: Microbiology 03/17/23 22:10 Urine, Clean Catch Urine Culture - Final ESBL Escherichia coli 03/18/23 01:40 Blood Culture (Wb) - Anticubital Left Blood Culture - Preliminary No growth in 48 hours. 03/18/23 00:57 Blood Culture (Wb) - Anticubital Right Blood Culture - Preliminary No growth in 48 hours. 03/17/23 19:29 Nasal Secretion SARS-CoV-2 Antigen (Rapid) - Final Physical Exam Narrative Seen and examined. Bilateral flank pain has much improved almost to normal. Still has burning micturition. No fever last night or last 24 hours. Physical exam General: Alert, Oriented x3, Cooperative, morbid obesity BMI 42.5 kg/m?. HEENT: Atraumatic, PERRLA, EOMI, Normocephalic Oral: Oral mucosa moist. No Gingival or Mucosal Lesions/ Ulcerations Neck: Supple, No JVD, Negative Carotid Bruits Lungs: Air entry diminished in bilateral lung bases. No crepitation/rhonchi Cardiovascular: Regular rate, Regular Rhythm, Normal S1, Normal S2, No murmurs Abdomen: Bowel Sounds Present, Soft, Non Tender, Non-Distended : Mild bilateral renal angle tenderness. No suprapubic tenderness. Mild dysuria, voiding dark urine spontaneously. No hematuria. Extremities: Mild bilateral pitting edema, Capillary Refill Less than 3 Seconds Skin: No rashes, No breakdown Musculoskeletal: No Tenderness to Palpation of Joints or Extremities. ROM restricted. Neurological: Cranial nerves II-XII grossly intact, DTR 2+/4 and Symmetrical, Neuro grossly intact Psych/Mental Status: Flat affect. Assessment & Plan Assessment/Plan (1) Pyelonephritis: PLAN: Plan The patient is a 52 y/o M is being admitted for abdominal cramping, bilateral flank discomfort since, nausea, vomiting, back pain and fever and lab and imaging finding consistent with sepsis due to acute complicated pyelonephritis #1. Sepsis due to bilateral Acute Complicated Pyelonephritis: Patient is being admitted to PCU. The patient presented with sepsis with clinical indicators of tachycardia, high fever 103.3 Fahrenheit, leukocytosis due to bilateral pyelonephritis with cystitis with acute sepsis-related organ dysfunction as evidenced by GM on CKD 3. Blood cultures x2 and urine culture is ordered and are pending. Patient was well rested as per sepsis protocol. Patient is +5 L positive fluid balance. Patient on antibiotic IV ceftriaxone. IV fluid rate decreased to 50 mill per hour. 03/19: Patient is still spikes fever and systemic symptoms symptoms due to sepsis. Continue IV antibiotic blood work reviewed. Glucose is controlled. Sepsis is resolved. Prelim urine culture shows presumptive E. coli more than 100,000 colonies. Blood cultures are pending. Patient evaluated by urologist and feels no acute intervention needed. 03/20: Urine culture growing ESBL E. coli. IV antibiotic's ceftriaxone changed to meropenem. ID consult reviewed and appreciated. On IV meropenem. Recommended ertapenem for 9 more days at the time of discharge probably anticipating tomorrow. Leukocytosis resolved. 03/21: On ertapenem 1 g IV daily. Patient is staying as he will have home health from Thursday onwards therefore discharge tomorrow after dose of ertapenem. Patient states that he needs work off time until he completes ertapenem which is 1 g IM daily as his work will not allow to go between work shift for antibiotic administration. #2. Acute kidney injury on CKD stage IIIa most likely due to sepsis: Bladder scan showed 0 amount after voiding urine. Urologist is consulted. CT abdomen with IV contrast showed no renal stones or hydronephrosis but heterogeneous appearance of renal cortex with partial loss of corticomedullary junction. Trace perinephric stranding. 03/19: Serial improvement in creatinine from 1.88-1.32. 03/20 creatinine 1.14. GM resolved. #3. Hypokalemia: Admission K+ 3.4, magnesium level requested, supplementation given, repeat level was 3.9 today 03/19 hypokalemia resolved. #4. CAD: Status post PCI, continue patient home aspirin, Plavix, statin, metoprolol, not on SOCO inhibitor/ARB due to GM #5. Anxiety and depression: continue patient on Paxil regimen. #6. Diabetes mellitus type II: Hold oral home regimen, ADA diet, accu checks w/ ISS. #7. Hypothyroidism: continue patient home levothyroxine regimen. #8. Hypertension: Continue home regimen including metoprolol, isosorbide cautiously given presentation although BP has been stable, PRN hydralazine. #9. Hyperlipidemia: continue patient home statin therapy. #10. Morbid Obesity: Weight loss and lifestyle changes encouraged. #11. Former tobacco use: Encourage continued tobacco cessation. #12. JOSIAH: BIPAP q HS. #13. DVT prophylaxis: Heparin. #14. CODE status: Patient HCPOA and living will is not in place. His who is present would be his decision maker if he was unable. Full code. Clinical Impression(s) from Imaging Studies Chest X-Ray 03/17/23 19:30 IMPRESSION: Normal x-ray examination of the chest. Abdomen/Pelvis CT 03/17/23 21:51 IMPRESSION: Heterogeneous appearing kidneys suspicious for acute pyelonephritis. No renal stones or obstructive uropathy. Charges/Coding Visit Charges Inpatient E&M: 61334 Subs Hosp L2
[2023-03-21 08:47] LABS: Bedside Glucose 141 mg/dL (74-106)
[2023-03-21] MEDS: Heparin Injection (Vial) 5,000 UNIT/ML VIAL 5000 UNIT SC ×2 (10:17→21:58)
[2023-03-21] MEDS: amLODIPine 10 MG Tablet 5 MG PO (10:17)
[2023-03-21] MEDS: Aspirin E.C. 81 MG Tablet PO (10:18)
[2023-03-21] MEDS: Clopidogrel Bisulfate 75 MG Tablet PO (10:18)
[2023-03-21] MEDS: Metoprolol(XL)Succ 100 MG Tablet PO (10:56)
[2023-03-21] MEDS: Paroxetine 20 MG Tablet 40 MG PO (11:27)
[2023-03-21 12:14] LABS: Bedside Glucose 143 mg/dL (74-106)
[2023-03-21] MEDS: Insulin Lispro 100 UNIT/ML INSULN.PEN SC ×2 (16:44→22:00)
[2023-03-21 17:25] LABS: Bedside Glucose 201 mg/dL (74-106)
[2023-03-21] MEDS: Atorvastatin Calcium 40 MG Tablet PO (21:58)
[2023-03-21] MEDS: Acetaminophen 325 MG Tablet 650 MG PO (21:59)
[2023-03-22 01:11] LABS: Bedside Glucose 202 mg/dL (74-106)
[2023-03-22 05:00] VITALS: BP 141/82; PULSE 60; RESP 18; TEMP 36.1; O2SAT 99
[2023-03-22] MEDS: Isosorbide DN 10 MG Tablet 5 MG PO (05:45)
[2023-03-22] MEDS: Levothyroxine 125 MCG Tablet PO (05:46)
[2023-03-22 05:49] VITALS: BMI 42.4
--- NOTE | 2023-03-22 07:28 | DCINST_ITS ---
Discharge Instructions Diet Discharge Diet: 1800 Calorie Control Diet and 2000 mg Sodium Diet Activity Discharge Activity: Return to Normal Activity Weight Bearing Status: Weight bearing as tolerated Dressing / Incision Call your doctor if you observe: Fever of 101 or Higher, Coldness, Increased Pain, Numbness or Tingling, Change in Color, Inability to urinate, Inability to have a bowel movement, Shortness of breath, Dizziness, Fainting spells, Swelling in the ankles, Chest pain, Prolonged hiccupping, Increased palpitations (irregular heartbeat) and Calf discomfort Follow Up Care When: IN 2 WEEKS Test Results: Test results from this visit will be discussed in further detail at your follow- up appointment, if applicable. Discharge Plan Admission Admit Date/Time: 03/18/23 00:34 Primary Reason for Your Visit: B/L Pyenopnephritis Attending Provider: Artem Gonzales Primary Care Provider: Sonny Price Consulting Providers: Hiral Rodriguez; Harpreet Viramontes; Sen Guzman Discharge Orders/Prescriptions Prescriptions: New ertapenem 1 gram recon soln 1 g IM DAILY Qty: 8 0RF Rx Instructions: stop date 03/29/23 dx: esbl ecoli pyelo weekly bmp, cbc, and LFT. Fax to [phone] sennosides-docusate sodium [Stool Softener-Stimulant Laxat] 8.6-50 mg Tablet 2 tab PO BID PRN PRN (Reason: Constipation) Qty: 0 0RF Continued metoprolol succinate 50 mg tablet extended release 24 hr 100 mg PO DAILY aspirin [Adult Aspirin Regimen] 81 mg tablet,delayed release (DR/EC) 81 mg PO DAILY Qty: 90 2RF atorvastatin 40 mg tablet 40 mg PO QHS paroxetine HCl 40 mg tablet 40 mg PO DAILY nystatin-triamcinolone Cream 1 applic topical .COMPLEX Rx Instructions: 1 applic topically apply sparingly to groin and penile rash twice daily for irritation/infection up to 2 weeks and then take a week off; amlodipine 10 MG tablet 10 mg PO DAILY Patient Comments: TAKE 1 TABLET BY MOUTH EVERY DAY levothyroxine 125 MCG tablet 125 mcg PO DAILY Patient Comments: TAKE 1 TABLET EVERY DAY nitroglycerin 0.4 mg Tablet, Sublingual 0.4 mg sublingual Q5M PRN (Reason: Cardiac/Chest Pain) Qty: 14 5RF oxycodone-acetaminophen 5-325 mg tablet 1 tab PO Q6H PRN PRN (Reason: pain) 5 Days Qty: 20 0RF Hold Instructions: NO LONGER TAKING ondansetron 4 mg tablet,disintegrating 4 mg PO Q6H PRN (Reason: nausea and vomiting) Qty: 7 0RF clopidogrel 75 mg tablet See Rx Instructions .ROUTE .COMPLEX Qty: 30 11RF Dose Instruction: TAKE 1 TABLET BY MOUTH EVERY DAY Rx Instructions: TAKE 1 TABLET BY MOUTH EVERY DAY isosorbide dinitrate 5 mg tablet 5 mg PO BID Qty: 60 3RF Rx Instructions: allow nitrate-free interval of 12-14 hrs per 24-hr period Held metformin 500 mg tablet 1,000 mg PO BID Hold Instructions: Hold for 3 days. [facility] - 03/23/23 12:00 pm Harpreet Viramontes MD [Med Staff - Active Staff] - Within 2 Weeks Sen Guzman MD [Med Staff - Active Staff] - Within 1 Month (as needed for pyelonephritis/UTI.) Disposition Disposition (needs filled in before D/C Order can be placed): Home, Self Care
--- NOTE | 2023-03-22 07:32 | DS.PCM_ITS ---
Providers Date of Admission: 03/18/23 Primary Care Physician: Dr. Sonny Price MD Consultations 03/18/23 14:23 Consult: Urology Routine Consulting Provider: Harpreet Viramontes Reason for Consult: Suspected urinary obstuctive, B/LPyelo EMERGENT Consult: No Notified: Yes Date Notified: 03/18/23 Time Notified: 14:23 Method of Notification: Verbal 03/20/23 09:23 Consult: Infectious Disease Routine Consulting Provider: Sen Guzman Reason for Consult: ESBL UTI with B/L Pyelonephritis EMERGENT Consult: No Notified: Yes Date Notified: 03/20/23 Time Notified: 09: Method of Notification: Text Reason For Visit: PYELONEPHRITIS, SEPSIS Diagnosis Discharge Diagnosis (1) Pyelonephritis: Status: Acute Code(s): N12 - Tubulo-interstitial nephritis, not specified as acute or chronic Plan The patient is a 52 y/o M is being admitted for abdominal cramping, bilateral flank discomfort since, nausea, vomiting, back pain and fever and lab and imaging finding consistent with sepsis due to acute complicated pyelonephritis #1. Sepsis due to bilateral Acute Complicated Pyelonephritis: Patient is being admitted to PCU. The patient presented with sepsis with clinical indicators of tachycardia, high fever 103.3 Fahrenheit, leukocytosis due to bilateral pyelonep hritis with cystitis with acute sepsis-related organ dysfunction as evidenced by GM on CKD 3. Blood cultures x2 and urine culture is ordered and are pending. Patient was well rested as per sepsis protocol. Patient is +5 L positive fluid balance. Patient on antibiotic IV ceftriaxone. IV fluid rate decreased to 50 mill per hour. 03/19: Patient is still spikes fever and systemic symptoms symptoms due to sepsis. Continue IV antibiotic blood work reviewed. Glucose is controlled. Sepsis is resolved. Prelim urine culture shows presumptive E. coli more than 100,000 colonies. Blood cultures are pending. Patient evaluated by urologist and feels no acute intervention needed. 03/20: Urine culture growing ESBL E. coli. IV antibiotic's ceftriaxone changed to meropenem. ID consult reviewed and appreciated. On IV meropenem. Recommended ertapenem for 9 more days at the time of discharge probably anticipating tomorrow. Leukocytosis resolved. 03/21: On ertapenem 1 g IV daily. Patient is staying as he will have home health from Thursday onwards therefore discharge tomorrow after dose of ertapenem. Patient states that he needs work off time until he completes ertapenem which is 1 g IM daily as his work will not allow to go between work shift for antibiotic administration. 03/22: Patient will have an ertapenem 1 g IV today and then discharged to complete outpatient ertapenem 1 g IM until 03/29/2023. Work off from his workplace already detailed in the discharge instruction. Patient does not have burning micturition and renal angle pain. Follow-up urologist Dr. Viramontes in 2-4 weeks. #2. Acute kidney injury on CKD stage IIIa most likely due to sepsis: Bladder scan showed 0 amount after voiding urine. Urologist is consulted. CT abdomen with IV contrast showed no renal stones or hydronephrosis but heterogeneous appearance of renal cortex with partial loss of corticomedullary junction. Trace perinephric stranding. 03/19: Serial improvement in creatinine from 1.88-1.32. 03/20 creatinine 1.14. GM resolved. #3. Hypokalemia: Admission K+ 3.4, magnesium level requested, supplementation given, repeat level was 3.9 today 03/19 hypokalemia resolved. #4. CAD: Status post PCI, continue patient home aspirin, Plavix, statin, metoprolol, not on SOCO inhibitor/ARB due to GM #5. Anxiety and depression: continue patient on Paxil regimen. #6. Diabetes mellitus type II: Hold oral home regimen, ADA diet, accu checks w/ ISS. #7. Hypothyroidism: continue patient home levothyroxine regimen. #8. Hypertension: Continue home regimen including metoprolol, isosorbide cautiously given presentation although BP has been stable, PRN hydralazine. #9. Hyperlipidemia: continue patient home statin therapy. #10. Morbid Obesity: Weight loss and lifestyle changes encouraged. #11. Former tobacco use: Encourage continued tobacco cessation. #12. JOSIAH: BIPAP q HS. #13. DVT prophylaxis: Heparin. #14. CODE status: Patient HCPOA and living will is not in place. His who is present would be his decision maker if he was unable. Full code. Discharge medication reconciliation done. Discharge follow-up instructions completed. Discharge process discussed with the patient and all questions were answered to patient's satisfaction. Total time spent, exact 35 minutes on discharge meds reconciliation, examination, coordination of care with nurses and ancillary staff, review of imaging and blood test and discussion with the patient on follow-up instructions. Clinical Impression(s) from Imaging Studies Chest X-Ray 03/17/23 19:30 IMPRESSION: Normal x-ray examination of the chest. Abdomen/Pelvis CT 03/17/23 21:51 IMPRESSION: Heterogeneous appearing kidneys suspicious for acute pyelonephritis. No renal stones or obstructive uropathy. Medications at Discharge Home Medications amlodipine 10 mg tablet 10 mg PO DAILY blood pressure 03/15/18 levothyroxine 125 mcg tablet 125 mcg PO DAILY thyroid 02/08/19 atorvastatin 40 mg tablet 40 mg PO QHS cholesterol 10/09/22 metformin 500 mg tablet 1,000 mg PO BID blood sugar 10/09/22 nystatin-triamcinolone topical cream 1 applic topical .COMPLEX penile rash 10/09/22 paroxetine HCl 40 mg tablet 40 mg PO DAILY depression 10/09/22 aspirin 81 mg tablet,delayed release (Adult Aspirin Regimen) 81 mg PO DAILY #90 tabs 10/13/22 metoprolol succinate 50 mg tablet,extended release 24 hr 100 mg PO DAILY HEART 10/13/22 nitroglycerin 0.4 mg sublingual tablet 0.4 mg sublingual Q5M PRN Cardiac/Chest Pain #14 tabs 10/24/22 clopidogrel 75 mg tablet See Rx Instructions .Route .COMPLEX #30 tabs 11/17/22 oxycodone-acetaminophen 5 mg-325 mg tablet 1 tab PO Q6H PRN PRN pain 5 days #20 TABLETS 01/31/23 isosorbide dinitrate 5 mg tablet 5 mg PO BID #60 tabs 02/13/23 ondansetron 4 mg disintegrating tablet 4 mg PO Q6H PRN nausea and vomiting #7 tabs 03/04/23 ertapenem 1 gram solution for injection 1 g IM DAILY #8 ea 03/20/23 sennosides 8.6 mg-docusate sodium 50 mg tablet (Stool Softener-Stimulant Laxative) 2 tab PO BID PRN PRN Constipation #0 tabs 03/22/23 Physical Exam Narrative Seen and examined. Bilateral flank pain and burning micturition has resolved. No fever. Physical exam General: Alert, Oriented x3, Cooperative, morbid obesity BMI 42.5 kg/m?. HEENT: Atraumatic, PERRLA, EOMI, Normocephalic Oral: Oral mucosa moist. No Gingival or Mucosal Lesions/ Ulcerations Neck: Supple, No JVD, Negative Carotid Bruits Lungs: Air entry diminished in bilateral lung bases. No crepitation/rhonchi Cardiovascular: Regular rate, Regular Rhythm, Normal S1, Normal S2, No murmurs Abdomen: Bowel Sounds Present, Soft, Non Tender, Non-Distended : No bilateral renal angle tenderness. No suprapubic tenderness. Urine spontaneously. No hematuria. Extremities: Mild bilateral pitting edema, Capillary Refill Less than 3 Seconds Skin: No rashes, No breakdown Musculoskeletal: No Tenderness to Palpation of Joints or Extremities. ROM restricted. Neurological: Cranial nerves II-XII grossly intact, DTR 2+/4 and Symmetrical, Neuro grossly intact Psych/Mental Status: Flat affect. Weight / BMI Weight Weight: 279 lb Body Mass Index (BMI) 42.4 ABG / Lab / Microbiology Data 03/21/23 06:13 03/21/23 06:13 Laboratory: Laboratory Results - last 24 hr 03/21/23 06:13: Sodium 140, Potassium 4.3, Chloride 104, Carbon Dioxide 29.0, Anion Gap 7, BUN 11, Creatinine 1.02, Estim Creat Clear Calc 81.96, Est GFR (MDRD) Af Amer 99, Est GFR (MDRD) Non-Af 81, BUN/Creatinine Ratio 10.8, Glucose 126 H, Calcium 9.0 03/21/23 06:52: POC Glucose 141 H 03/21/23 11:30: POC Glucose 143 H 03/21/23 16:37: POC Glucose 201 H 03/21/23 22:00: POC Glucose 202 H Microbiology: Microbiology 03/17/23 22:10 Urine, Clean Catch Urine Culture - Final ESBL Escherichia coli 03/18/23 01:40 Blood Culture (Wb) - Anticubital Left Blood Culture - Preliminary No growth in 48 hours. 03/18/23 00:57 Blood Culture (Wb) - Anticubital Right Blood Culture - Preliminary No growth in 48 hours. 03/17/23 19:29 Nasal Secretion SARS-CoV-2 Antigen (Rapid) - Final D/C Instructions Discharge Diet: 1800 Calorie Control Diet and 2000 mg Sodium Diet Weight Bearing Status: Weight bearing as tolerated Call your doctor if you observe: Fever of 101 or Higher, Coldness, Increased Pain, Numbness or Tingling, Change in Color, Inability to urinate, Inability to have a bowel movement, Shortness of breath, Dizziness, Fainting spells, Swelling in the ankles, Chest pain, Prolonged hiccupping, Increased palpitations (irregular heartbeat) and Calf discomfort When: IN 2 WEEKS Meaningful Use Info Meaningful Use Diagnoses (Choose all that apply): None applicable Discharge Plan Admission Admit Date/Time: 03/18/23 00:34 Primary Reason for Your Visit: B/L Pyenopnephritis Attending Provider: Artem Gonzales Primary Care Provider: Sonny Price Consulting Providers: Hiral Rodriguez; Harpreet Viramontes; Sen Guzman Instructions Additional Instructions / Restrictions: Patient requires ertapenem until 03/29/2023 as recommended by infectious disease digital marketing consultant. Patient not able to go take time off from work for ertapenem IM therefore recommended work off until 03/29/2023. Patient time off from work will be from time of admission 03/18/2023 to 03/29/2023 Discharge Orders/Prescriptions Prescriptions: New ertapenem 1 gram recon soln 1 g IM DAILY Qty: 8 0RF Rx Instructions: stop date 03/29/23 dx: esbl ecoli pyelo weekly bmp, cbc, and LFT. Fax to [phone] sennosides-docusate sodium [Stool Softener-Stimulant Laxat] 8.6-50 mg Tablet 2 tab PO BID PRN PRN (Reason: Constipation) Qty: 0 0RF Continued metoprolol succinate 50 mg tablet extended release 24 hr 100 mg PO DAILY aspirin [Adult Aspirin Regimen] 81 mg tablet,delayed release (DR/EC) 81 mg PO DAILY Qty: 90 2RF atorvastatin 40 mg tablet 40 mg PO QHS paroxetine HCl 40 mg tablet 40 mg PO DAILY nystatin-triamcinolone Cream 1 applic topical .COMPLEX Rx Instructions: 1 applic topically apply sparingly to groin and penile rash twice daily for irritation/infection up to 2 weeks and then take a week off; amlodipine 10 MG tablet 10 mg PO DAILY Patient Comments: TAKE 1 TABLET BY MOUTH EVERY DAY levothyroxine 125 MCG tablet 125 mcg PO DAILY Patient Comments: TAKE 1 TABLET EVERY DAY nitroglycerin 0.4 mg Tablet, Sublingual 0.4 mg sublingual Q5M PRN (Reason: Cardiac/Chest Pain) Qty: 14 5RF oxycodone-acetaminophen 5-325 mg tablet 1 tab PO Q6H PRN PRN (Reason: pain) 5 Days Qty: 20 0RF Hold Instructions: NO LONGER TAKING ondansetron 4 mg tablet,disintegrating 4 mg PO Q6H PRN (Reason: nausea and vomiting) Qty: 7 0RF clopidogrel 75 mg tablet See Rx Instructions .ROUTE .COMPLEX Qty: 30 11RF Dose Instruction: TAKE 1 TABLET BY MOUTH EVERY DAY Rx Instructions: TAKE 1 TABLET BY MOUTH EVERY DAY isosorbide dinitrate 5 mg tablet 5 mg PO BID Qty: 60 3RF Rx Instructions: allow nitrate-free interval of 12-14 hrs per 24-hr period Held metformin 500 mg tablet 1,000 mg PO BID Hold Instructions: Hold for 3 days. Referrals / Follow Up: [facility], [facility] [Other] - 03/23/23 12:00 pm Harpreet Viramontes MD [Med Staff - Active Staff] - Within 2 Weeks Sen Guzman MD [Med Staff - Active Staff] - Within 1 Month (as needed for pyelonephritis/UTI.) Disposition Disposition (needs filled in before D/C Order can be placed): Home, Self Care Charges/Coding Visit Charges Inpatient E&M: 02083 Disch Hosp >30min
[2023-03-22 07:51] VITALS: PULSE 71; RESP 20; O2SAT 94
[2023-03-22 08:27] LABS: Bedside Glucose 115 mg/dL (74-106)
[2023-03-22] MEDS: Aspirin E.C. 81 MG Tablet PO (09:18)
[2023-03-22] MEDS: Heparin Injection (Vial) 5,000 UNIT/ML VIAL 5000 UNIT SC (09:18)
[2023-03-22] MEDS: 0.9% Saline Lock 10 ML Syringe IV (09:18)
[2023-03-22] MEDS: Clopidogrel Bisulfate 75 MG Tablet PO (09:19)
[2023-03-22] MEDS: amLODIPine 10 MG Tablet 5 MG PO (09:19)
[2023-03-22] MEDS: Paroxetine 20 MG Tablet 40 MG PO (09:20)
[2023-03-22 10:15] VITALS: BP 138/85; PULSE 82; RESP 18; TEMP 36.6; O2SAT 98
[2023-03-22 11:39] VITALS: BP 138/85; PULSE 67
[2023-03-22] MEDS: Metoprolol(XL)Succ 100 MG Tablet PO (11:39)
[2023-03-22 12:39] LABS: Bedside Glucose 240 mg/dL (74-106)
== END 2023-03-22 12:21 | disposition home or self-care (01) | DRG 872 ==
LOC: ED 21:36 → PCU 03-18 00:41
PROVIDERS: Admitting Provider Family Medicine; Emergency Provider Student in an Organized Health Care Education/Training Program; PCP Family Medicine; Visit Provider Internal Medicine
DX: A41.9 Sepsis, unspecified organism (principal); N17.9 Acute kidney failure, unspecified; Z68.41 Body mass index [BMI] 40.0-44.9, adult; Z16.12 Extended spectrum beta lactamase (ESBL) resistance; N10 Acute pyelonephritis; N30.90 Cystitis, unspecified without hematuria; E11.22 Type 2 diabetes mellitus with diabetic chronic kidney disease; E03.9 Hypothyroidism, unspecified; B96.20 Unspecified Escherichia coli [E. coli] as the cause of diseases classified elsewhere; N18.31 Chronic kidney disease, stage 3a; E66.01 Morbid (severe) obesity due to excess calories; I12.9 Hypertensive chronic kidney disease with stage 1 through stage 4 chronic kidney disease, or unspecified chronic kidney disease; F32.A Depression, unspecified; I25.10 Atherosclerotic heart disease of native coronary artery without angina pectoris; E87.6 Hypokalemia; E78.5 Hyperlipidemia, unspecified; R11.2 Nausea with vomiting, unspecified; G47.33 Obstructive sleep apnea (adult) (pediatric); F41.9 Anxiety disorder, unspecified; Z79.02 Long term (current) use of antithrombotics/antiplatelets; Z79.82 Long term (current) use of aspirin; Z79.84 Long term (current) use of oral hypoglycemic drugs; Z79.890 Hormone replacement therapy; Z79.899 Other long term (current) drug therapy; Z87.891 Personal history of nicotine dependence; Z95.5 Presence of coronary angioplasty implant and graft
CPT/HCPCS: 36415; 71046; 74177; 80048; 80053; 81001; 82962; 83605; 83690; 83735; 85025; 85610; 87040; 87086; 87088; 87186; 87811; 93005; 94002; 94003; 94668; 94762; 97802; 99284; J2185; J7030; J7050; Q9967; A4216; J2405

== ENCOUNTER 2023-10-07 08:43 | Observation (INO) | payer OTHER, SELFPAY ==
[2023-10-07] VITALS (8 sets, daily range): BP systolic 90–148; BP diastolic 52–87; PULSE 60–81; RESP 18–23; TEMP 36.2–36.6; O2SAT 94–97; BMI 45.2; BMI 44.6
--- NOTE | 2023-10-07 09:18 | EDS_ITS ---
HPI History of Present Illness Chief Complaint: Chest Pain Detail of Chief Complaint: Chest pain Informant: patient Narrative Narrative: Patient presents to the emergency department with complaint of chest pain that started this morning around 6 AM. Patient states that he is actually been having chest pain frequently almost daily for weeks. Activity seems to bring it on. Patient states he has been sweating more. Patient states he feels the same way that he felt when he required 2 stents last year. Patient was being seen by Dr. Price in the office today for follow-up on some abdominal pain that he has been having for weeks. Patient had a CT scan a few weeks ago of his abdomen pelvis that apparently was unremarkable. Patient states his abdominal pain is actually been getting better. Patient was given nitroglycerin and the office and his chest pain resolved. Patient also was given 4 baby aspirin in the office. Patient takes daily Plavix. [facility] Medical History Anxiety Atherosclerosis of coronary artery of [place] heart without angina pectoris BiPAP (biphasic positive airway pressure) dependence Colitis Depression Depression Diabetes Elevated liver enzymes Essential hypertension Family history of heart disease Former smoker Hyperlipidemia Hypertension Hypertension Kidney stones Leukocytosis Myocardial infarct Nausea vomiting and diarrhea JOSIAH (obstructive sleep apnea) Sepsis Sleep apnea Type 2 diabetes mellitus Home Medications amlodipine 10 mg tablet 10 mg PO DAILY blood pressure 03/15/18 [History Last Taken 03/17/23] levothyroxine 125 mcg tablet 125 mcg PO DAILY thyroid 02/08/19 [History Last Taken 03/17/23] atorvastatin 40 mg tablet 40 mg PO QHS cholesterol 10/09/22 [History Last Taken Unknown] metformin 500 mg tablet 1,000 mg PO BID blood sugar 10/09/22 [History Last Taken 03/17/23] nystatin-triamcinolone topical cream 1 applic topical .COMPLEX penile rash 10/09/22 [History Last Taken Unknown] paroxetine HCl 40 mg tablet 40 mg PO DAILY depression 10/09/22 [History Last Taken Unknown] metoprolol succinate 50 mg tablet,extended release 24 hr 100 mg PO DAILY HEART 10/13/22 [History Last Taken Unknown] nitroglycerin 0.4 mg sublingual tablet 0.4 mg sublingual Q5M PRN Cardiac/Chest Pain #14 tabs 10/24/22 [Rx Last Taken Unknown] clopidogrel 75 mg tablet See Rx Instructions .Route .COMPLEX #30 tabs 11/17/22 [Rx Last Taken 03/17/23] oxycodone-acetaminophen 5 mg-325 mg tablet 1 tab PO Q6H PRN PRN pain 5 days #20 TABLETS 01/31/23 [Rx Last Taken Unknown] ondansetron 4 mg disintegrating tablet 4 mg PO Q6H PRN nausea and vomiting #7 tabs 03/04/23 [Rx Last Taken Unknown] ertapenem 1 gram solution for injection 1 g IM DAILY #8 ea 03/20/23 [Rx Last Taken Unknown] sennosides 8.6 mg-docusate sodium 50 mg tablet (Stool Softener-Stimulant Laxative) 2 tab PO BID PRN PRN Constipation #0 tabs 03/22/23 [Rx Last Taken Unknown] isosorbide dinitrate 5 mg tablet 5 mg PO BID #60 tabs 03/24/23 [Rx Last Taken Unknown] aspirin 81 mg tablet,delayed release See Rx Instructions .Route .COMPLEX #90 tabs 07/15/23 [Rx Last Taken Unknown] Allergy/AdvReac Type Severity Reaction Status Date / Time No Known Allergies Allergy Verified 03/04/23 21:55 Family History Father Myocardial infarction, Onset Age: 45 Mother Hypertension Mixed hyperlipidemia Grandmother CHF (congestive heart failure) Surgical History History of coronary artery stent placement (~10/24/22) History of tonsillectomy Status post excision of lipoma Social History household members: spouse Smoking Status: Former smoker alcohol intake: current details: occasional substance use type: does not use caffeine: Yes Type: carbonated beverages Number of servings: 6 ROS ROS ED Review of Systems ROS Unobtainable: other Constitutional Constitutional ED: Reports lethargy; Denies chills, fever(s), sweats or weight loss Eyes Eyes: Denies blurry vision, change in vision or diplopia ENT ENT ED: Denies rhinorrhea or sore throat Cardiovascular Cardiovascular: Reports chest pain; Denies orthopnea or racing heartbeat Respiratory/Chest Respiratory/Chest: Reports dyspnea on exertion; Denies cough, dyspnea, orthopnea or sputum Gastrointestinal Gastrointestinal: Denies abdominal pain, diarrhea, nausea or vomiting Genitourinary Genitourinary ED: Denies dysuria, hematuria or urinary frequency Musculoskeletal Musculoskeletal: Denies arthralgias, back pain, myalgias or neck pain Integumentary Denies abscess, Abrasions or rash Neurologic Neurologic: Denies headache(s) or weakness Psychiatric Psychiatric: Denies anxiety, depression or suicidal thoughts Endocrine Endocrinology: Denies polydipsia, polyphagia or polyuria Hematologic/Lymphatic Hematologic/Lymphatic: Denies easy bleeding, easy bruising or lymphadenopathy Allergic/Immunologic Allergic/Immunologic ED: Denies mouth swelling, tongue swelling or urticaria EXAM Physical Exam Const Vital Signs: 10/07/23 08:44 10/07/23 08:47 10/07/23 09:16 Temperature 97.2 F L Temperature Source Temporal Pulse Rate 65 Respiratory Rate 22 H Respiratory Effort Normal Non-Labored Blood Pressure 138/82 H Blood Pressure Mean 100 Pulse Ox 94 Oxygen Delivery Method Room Air Room Air 10/07/23 09:00 10/07/23 10:00 Temperature Temperature Source Pulse Rate 61 Respiratory Rate 23 H Respiratory Effort Blood Pressure 90/52 L 107/56 L Blood Pressure Mean 64 73 Pulse Ox 94 Oxygen Delivery Method Room Air Positive well nourished and well developed General Appearance ED: well developed and NAD HEENT Reports TM's clear and moist mucous membranes normocephalic and atraumatic; Negative for trauma or tenderness Tympanic Membrane ED: Yes TM's clear Eyes PERRL and EOMs intact bilaterally General Eye ED: Negative for pale conjunctiva or scleral icterus Neck no lymphadenopathy, supple and no JVD General: Negative for tenderness Chest Wall inspection of chest normal and palpation of chest normal Chest: Negative for tenderness Resp normal respiratory effort and clear to auscultation bilaterally Effort and Inspection: Negative for respiratory distress or pain with movement Auscultation: Negative for rhonchi, wheezes or diminished lung sounds Cardio regular rate, regular rhythm, S1 normal heart sound, S2 normal heart sound and no murmurs Peripheral Pulses: pulses 2+ throughout GI normal to inspection, nondistended, normoactive bowel sounds, soft to palpation, non-tender, non-distended and no masses Back/Spine no CVA tenderness and no thoracic nor lumbar tenderness Extremity normal to inspection General Extremety ED: Negative for edema General Extremity: Negative for edema Neuro oriented x3, CN's II-XII intact bilaterally, no sensory deficits noted and gait normal Sensorium / Orientation: awake, alert, oriented to person, oriented to place and oriented to time Motor Exam: strength 5/5 throughout and strength abnormal Psych mental status grossly normal Skin no rashes or lesions noted and no wounds Heart Score History: Moderately Suspicious ECG: Nonspecific Repolarization Age: >45 - <65 years Risk Factors: >/= 3 Risk Factors or History of CAD Troponin: </= Normal Limit Score: 5 MDM MDM MDM Narrative Medical decision making narrative: Patient presents to the emergency department with chest discomfort off-and-on for the last several weeks. Symptoms exertional at times. He describes feeling sweaty. Patient felt similarly with prior cardiac issues and needed stenting. IV line established on arrival. Patient placed on ekg monitor. His PCP gave him 4 baby aspirin. CBC with differential white count 9.2 with hemoglobin 14 and platelet count of 234. Chemistries unremarkable. LFTs showed a slightly elevated AST of 62 and an ALT of 106. Lipase was normal at 43. Case discussed with cardiology and they agree with admission for further evaluation. Patient's heart score is a 5. Lab Data Attestation: I reviewed the patient's lab results. Labs: Laboratory Results - last 24 hr 10/07/23 08:34 WBC 9.2 RBC 5.07 Hgb 14.2 Hct 43.0 MCV 84.8 MCH 28.0 MCHC 33.0 RDW Std Deviation 44.1 H RDW Coeff of Melva 14.6 Plt Count 234 MPV 10.0 Immature Gran % (Auto) 0.500 Neut % (Auto) 71.4 H Lymph % (Auto) 19.8 [place] % (Auto) 5.4 Eos % (Auto) 2.4 Baso % (Auto) 0.5 Absolute Neuts (auto) 6.6 Absolute Lymphs (auto) 1.82 Nucleated RBC % 0 Sodium 138 Potassium 3.9 Chloride 106 Carbon Dioxide 26.0 Anion Gap 6 BUN 13 Creatinine 0.98 Estim Creat Clear Calc 118.48 Est GFR (MDRD) Af Amer 103 Est GFR (MDRD) Non-Af 85 BUN/Creatinine Ratio 13.2 Glucose 152 H Calcium 9.6 Total Bilirubin 0.90 Direct Bilirubin 0.24 AST 62 H ALT 106 H Alkaline Phosphatase 103 Troponin I High Sens 7 Total Protein 7.9 Albumin 3.8 Globulin 4.1 Lipase 43 Radiography Diagnostic Testing: Clinical Impression(s) from Imaging Studies Chest X-Ray 10/07/23 09:30 IMPRESSION: No acute abnormality is present. Electronically Signed: Gabriel Johnson MD at 9:49 EST , 1 view chest x-ray obtained interpreted by myself as no evidence of pneumothorax or infiltrate or acute disease process. Radiology in agreement. EKG Initial EKG: Comments: Sinus rhythm with rate of [address] changes anteriorly Prior EKG tracings: available for review Prior: Changed Discharge Plan Triage Chief Complaint: Chest Pain ED Provider: Fernandez Bryant Dx/Rx/DC Orders Clinical Impression: Diabetes, History of coronary artery disease, Chest pain Prescriptions: No Action metoprolol succinate 50 mg tablet extended release 24 hr 100 mg PO DAILY atorvastatin 40 mg tablet 40 mg PO QHS paroxetine HCl 40 mg tablet 40 mg PO DAILY nystatin-triamcinolone Cream 1 applic topical .COMPLEX Rx Instructions: 1 applic topically apply sparingly to groin and penile rash twice daily for irritation/infection up to 2 weeks and then take a week off; metformin 500 mg tablet 1,000 mg PO BID Hold Instructions: Hold for 3 days. amlodipine 10 MG tablet 10 mg PO DAILY Patient Comments: TAKE 1 TABLET BY MOUTH EVERY DAY levothyroxine 125 MCG tablet 125 mcg PO DAILY Patient Comments: TAKE 1 TABLET EVERY DAY nitroglycerin 0.4 mg Tablet, Sublingual 0.4 mg sublingual Q5M PRN (Reason: Cardiac/Chest Pain) Qty: 14 5RF oxycodone-acetaminophen 5-325 mg tablet 1 tab PO Q6H PRN PRN (Reason: pain) 5 Days Qty: 20 0RF Hold Instructions: NO LONGER TAKING ondansetron 4 mg tablet,disintegrating 4 mg PO Q6H PRN (Reason: nausea and vomiting) Qty: 7 0RF ertapenem 1 gram recon soln 1 g IM DAILY Qty: 8 0RF Rx Instructions: stop date 03/29/23 dx: esbl ecoli pyelo weekly bmp, cbc, and LFT. Fax to [phone] sennosides-docusate sodium [Stool Softener-Stimulant Laxat] 8.6-50 mg Tablet 2 tab PO BID PRN PRN (Reason: Constipation) Qty: 0 0RF clopidogrel 75 mg tablet See Rx Instructions .ROUTE .COMPLEX Qty: 30 11RF Dose Instruction: TAKE 1 TABLET BY MOUTH EVERY DAY Rx Instructions: TAKE 1 TABLET BY MOUTH EVERY DAY isosorbide dinitrate 5 mg tablet 5 mg PO BID Qty: 60 11RF Rx Instructions: allow nitrate-free interval of 12-14 hrs per 24-hr period aspirin 81 mg tablet,delayed release (DR/EC) See Rx Instructions .ROUTE .COMPLEX Qty: 90 3RF Dose Instruction: TAKE 1 TABLET BY MOUTH EVERY DAY Rx Instructions: TAKE 1 TABLET BY MOUTH EVERY DAY Primary Care Provider: Sonny Price Referrals: Sonny Price MD [Primary Care Provider] - Disposition Disposition: Acute Care Hospital [facility]
--- NOTE | 2023-10-07 09:30 | RAD_ITS ---
STUDY: X-RAY CHEST REASON FOR EXAM: Male, 52 years old. Chest pain TECHNIQUE: Single AP portable view of the chest. COMPARISON: Comparison is made with prior study dated March 17, 2023. FINDINGS: EKG electrodes are seen. The lungs are clear and expanded. There is no demonstrated pleural abnormality. Normal size heart. Normal mediastinum and brayan. Normal visualized pulmonary arteries. There is faint atherosclerotic calcification of the aortic arch with tortuosity. Normal visualized thoracic spine. Normal visualized ribs, clavicles, and shoulders. There is no demonstrated abnormality of the visualized soft tissue structures of the upper abdomen. RAD/Chest 1 View (Portable) IMPRESSION: No acute abnormality is present. Electronically Signed: Gabriel Johnson MD at 9:49 EST ,
[2023-10-07 09:33] LABS: Absolute Lymphocyte Count 1.82 X10^3/uL (0.83-4.51); Absolute Neutrophil Count 6.6 X10^3/uL (2.0-7.7); Basophil# 0.05 X10^3/uL; Basophil% 0.5 % (0-1); Eosinophil# 0.22 X10^3/uL; Eosinophils% 2.4 % (0-5); Hemoglobin 14.2 g/dL (13.0-16.5); Lymphocyte # 1.82 X10^3/ul (0.83-4.51); Lymphocyte % 19.8 % (19-41); Mean Corpuscular Volume 84.8 fL (80-94); Monocyte% 5.4 % (0-10); NRBC Flagged by Analyzer 0 % (0-5); Neutrophil # 6.57 X10^3/uL (2.7-7.7); Neutrophil % 71.4 % (47-70); Platelet Count 234 K/mm3 (150-450); RBC Distribution Width CV 14.6 % (11.6-14.6); RBC Distribution Width SD 44.1 fl (35.1-43.9); Red Blood Count 5.07 M/mm3 (4.6-6.2); White Blood Count 9.2 K/mm3 (4.4-11.0)
[2023-10-07] MEDS: 0.9% Normal Saline (1000mL) 1,000 ML 150 ML IV (09:42)
[2023-10-07 09:48] LABS: AST(SGOT) 62 U/L (15-37); Alanine Aminotransfer ALT/SGPT 106 U/L (16-61); Albumin, Serum 3.8 g/dL (3.2-5.0); Alkaline Phosphatase 103 U/L (45-117); Anion Gap 6 (5-15); BUN 13 mg/dL (7-18); BUN/Creat Ratio 13.2 RATIO (10-20); Bilirubin, Direct 0.24 mg/dL (0.00-0.30); Calcium,Total 9.6 mg/dL (8.5-10.1); Chloride 106 mmol/L (98-107); Creatinine, Serum 0.98 mg/dL (0.70-1.30); EST Glomerular Filtration Rate 85 mL/min (>60); Est Glom Filt Rate - Afr Amer 103 mL/min (>60); Estimated Creatinine Clearance 118.48 ml/min; Globulin 4.1 g/dL (2.2-4.2); Glucose 152 mg/dL (74-106); Lipase 43 U/L (13-75); Potassium 3.9 mmol/L (3.5-5.1); Protein, Total 7.9 g/dL (6.4-8.2); Sodium Level 138 mmol/L (136-145); Troponin-I HS (w/2H Reflex) 7 pg/mL (3.0-78.0)
--- NOTE | 2023-10-07 11:07 | NURSING ---
PCU TERELETSKY CHEST PAIN, HX OF DIABETES, HX OF CAD
[2023-10-07 11:29] LABS: Reflex Troponin-HS? (from REC) Y
--- NOTE | 2023-10-07 11:40 | ECHOCS_ITS ---
Reason For Study: Chest Pain Procedure This was a 2D Doppler, Color Flow transthoracic echocardiogram. The study was technically difficult. Contrast injection was performed. Exam performed portable in patient room. Left Ventricle Normal left ventricle. The estimated ejection fraction is 50-55 %. Right Ventricle Normal right ventricle. Normal systolic function. Atria The left atrium is mildly enlarged. Normal right atrium. Mitral Valve The mitral valve is structurally normal. No prolapse or stenosis seen. Trivial mitral valve insufficiency. Tricuspid Valve Normal tricuspid valve. Trivial tricuspid valve insufficiency. Aortic Valve Normal aortic valve. Pulmonic Valve The pulmonic valve is not well visualized. Great Vessels Normal aortic root. Pericardium/Pleural No pericardial effusion. Medication Diluted definity 5ml given slow IV push to enhance endocardial definition. MMode/2D Measurements & Calculations LVIDd: 5.9 cm IVSd: 1.1 cm Ao root diam: 3.4 cm LVIDs: 4.5 cm LVPWd: 0.85 cm LA dimension: 3.9 cm RVDd: 4.5 cm FS: 23.8 % LAV(MOD-bp): 59.7 ml LVAd ap4: 28.8 cm2 SV(MOD-sp4): 44.7 ml LAV(MOD-bp) Indexed: 24.7 ml/m2 LVLd ap4: 7.7 cm LAV(MOD-sp2): 50.1 ml EDV(MOD-sp4): 88.0 ml LAV(MOD-sp4): 58.7 ml EDV(sp4-el): 91.4 ml LVAs ap4: 19.2 cm2 LVLs ap4: 6.9 cm ESV(MOD-sp4): 43.3 ml ESV(sp4-el): 45.1 ml EF(MOD-sp4): 50.8 % EF(sp4-el): 50.7 % SV(sp4-el): 46.3 ml LA A4 area: 20.7 cm2 RA A4 area: 21.1 cm2 TAPSE: 2.4 cm Time Measurements MV dec time: 0.19 sec Doppler Measurements & Calculations MV E max braden: 114.4 cm/sec Lat Peak E' Braden: 10.4 cm/sec Med Peak E' Braden: 12.1 cm/sec MV A max braden: 86.0 cm/sec E/E' lat: 11.0 E/E' med: 9.4 MV E/A: 1.3 MV V2 max: 124.5 cm/sec MV P1/2t max braden: 123.4 cm/sec Ao V2 max: 196.5 cm/sec MV max P.2 mmHg MV P1/2t: 64.4 msec Ao max P.5 mmHg MV V2 mean: 59.0 cm/sec Ao V2 mean: 125.4 cm/sec MV mean P.8 mmHg MV dec slope: 561.6 cm/sec2 Ao mean P.6 mmHg MV V2 VTI: 41.8 cm MVA(P1/2t): 3.4 cm2 Ao V2 VTI: 42.1 cm LV V1 max: 117.1 cm/sec PA V2 max: 81.4 cm/sec LV V1 max P.5 mmHg ECHO/Echo Complete W/ Contrast Interpretation Summary The estimated ejection fraction is 50-55 %. Normal LV systolic function No significant valve abnormality In comparison to previous echocardiogram done in October 23, 2022 no significa nt change noted. Ordering Physician: Gerardo Watkins Referring Physician: Sonny Price Performed By: Herberth Pop [facility]
[2023-10-07 11:59] LABS: Troponin-I HS 6 pg/mL (3.0-78.0)
[2023-10-07] MEDS: 0.9% Saline Lock 10 ML Syringe IV (12:04)
--- OUTSIDE RECORDS SUMMARY | 2023-10-07 12:23 | XMS RPT_ITS | CCD ---
Author Name Unknown Address [address] [place] [address] Organization [facility] Care Team Providers Care Warehouse Insulation Worker Name Role Phone Elian Hernandez Unavailable Unavailabl e Gualbertok, Elian Salmon Unavailable Unavailabl e Elian Hernandez Unavailable Unavailabl e David, Elian Salmon Unavailable UnavailGinger Larsen MD Primary Care Provider [phone] Pending Provider Unavailable Unavailable REGGIE PAYNE Referring Unavailable REGGIE PAYNE Admitting Unavailable GINGER PRICE Primary Care Unavailable REGGIE PAYNE Referring Unavailable REGGIE PAYNE Admitting Unavailable GINGER PRICE Primary Care Unavailable REGGIE PAYNE Referring Unavailable GINGER PRICE Primary Care Unavailable REGGIE PAYNE Admitting Unavailable REGGIE PAYNE Referring Unavailable GINGER PRICE Primary Care Unavailable REGGIE PAYNE Admitting Unavailable REGGIE PAYNE Referring Unavailable REGGIE PAYNE Admitting Unavailable GINGER PRICE Primary Care Unavailable Ginger Price MD Primary Care Provider Ginger Price MD Primary Care Provider Ginger Price Unavailable Beau Love Unavailable UnavailVANESSA Barreto Attending Unavailable GINGER PRICE Primary Care Unavailable REGGIE PAYNE Referring Unavailable REGGIE PAYNE Attending Unavailable GINGER PRICE Primary Care Unavailable Pending, Provider Primary Care Unavailable Ms. Yojana Vang Attending Unava ilaltagracia Price, Dr. Ginger Alegria Primary Care Unavail able Megan, Dr. Sen Li Referring Un available Grady, Dr. Chao Guevara Admitting Unav ailable Al, Dr. Chao Guevara Attending Unav ailable Megan, Dr. Sen Li Referring Un available Grady, Dr. Chao Guevara Admitting Unav ailable Grady, Dr. Chao Guevara Attending Unav ailable [place], Dr. Ginger Alegria Primary Care Unavail able [place], Dr. Ginger Alegria Primary Care Unavail able TIM, DO BEAU MARTINEZ Attending Unava ilable Megan, Dr. Sen Li Attending Un available Megan, Dr. Sen Li Admitting Un available [place], Dr. Ginger Alegria Primary Care Unavail able Megan, Dr. Sen Li Attending Un available Megan, Dr. Sen Li Admitting Un available [place], Dr. Ginger Alegria Primary Care Unavail able Megan, Dr. Sen Li Attending Un available Megan, Dr. Sen Li Admitting Un available Dee, Dr. Ginger Alegria Primary Care Unavail able Megan, Dr. Sen Li Attending Un available Megan, Dr. Sen Li Admitting Un available [place], Dr. Ginger Alegria Primary Care Unavail able Dee, Dr. Ginger Alegria Primary Care Unavail able Megan, Dr. Sen Li Attending Un available Megan, Dr. Sen Li Admitting Un available Pending, Provider Primary Care Unavailable Taj, Ms. Yojana Maria Isabel Attending Unava ilable Pending, Provider Primary Care Unavailable Taj, Ms. Yojana Maria Isabel Attending Unava ilable Pending, Provider Primary Care Unavailable Taj, Ms. Yojana Maria Isabel Attending Unava ilable Pending, Provider Primary Care Unavailable Taj, Ms. Yojana Maria Isabel Attending Unava ilable Pending, Provider Primary Care Unavailable Taj, Ms. Yojana Maria Isabel Attending Unava ilable Ginger Price Unavailable Unavailable Unavailable Ginger Price MD Primary Care Provider Ginger Price MD Primary Care Provider VANESSA CROSS Attending Unavailable Dee, Dr. Ginger Alegria Primary Care Unavail able VANESSA CROSS Referring Unavailable VANESSA CROSS Attending Unavailable Dee, Dr. Ginger Alegria Primary Care Unavail able VANESSA CROSS Attending Unavailable Dee, Dr. Ginger Alegria Primary Care Unavail able VANESSA CROSS Referring Unavailable VANESSA RAPHAEL Attending Unavailable GINGER PRICE Primary Care Unavailable DANETTE MAXWELL Attending Unavailab le GINGER PRICE Primary Care Unavailable DANETTE MAXWELL Attending Unavailab GINGER Doll Primary Care Unavailable GINGER PRICE Primary Care Unavailable ISMAEL SUH Attending Unavailable DIONNE MARTINEZ Referring Unavaila melissa PRICE, GINGER ALEGRIA Primary Care Unavailable DEEGINGER Primary Care Unavailable FIONA KEE Attending Unavailab GINGER Doll Primary Care Unavailable GINGER PRICE Referring Unavailable Nadege CHRISTINE Attending Unavailable GINGER PRICE Primary Care Unavailable Nadege CHRISTINE Attending Unavailable GINGER PRICE Primary Care Unavailable DEEGINGER Primary Care Unavailable DEEGINGER Referring Unavailable DEEGINGER Primary Care Unavailable DEE, GINGER Alvares Attending Unavailable GINGER PRICE Primary Care Unavailable DEE, GINGER Alvares Referring Unavailable GINGER PRICE Primary Care Unavailable GINGER PRICE Attending Unavailable GINGER PRICE Primary Care Unavailable GINGER PRICE Referring Unavailable GINGER PRICE Primary Care Unavailable GINGER PRICE Attending Unavailable Medications Current Medications Medication Drug Class(es) Dates Sig (Normalized) Sig (Original) acetaminophen 325 mg / oxyCODONE hydrochloride 5 mg oral tablet (1 source) Opioid Agonist Start: 01-26-2022 End: 01-29-2022 take 1 tablet by mouth every six hours as needed for pain oxyCODONE-acetami nophen (PERCOCET) 5-325 mg tablet Indications: Soft tissue injury of left upper arm, initial encounter , Hematoma Take 1 tablet by mouth every 6 hours as needed for pain for up to 3 days. 12 tablet 0 01/26/2022 01/29/2022 Active Completed/Discontinued Medications Medication Drug Class(es) Dates Sig (Normalized) Sig (Original) [id number] 200 actuat albuterol 0.09 mg/actuat metered dose inhaler (17 sources) beta2-Adrenergic Agonist Start: 2020 End: 10-08-2022 take 2 puff(s) by inhalation every four hours as needed for wheezing albuterol HFA (VENTOLIN HFA) 90 mcg/actuation inhaler Inhale 2 Puffs as instructed every 4 hours as needed for Wheezing/Shortness of Breath. 6.7 g 0 2020 10/08/2022 Discontinued Problems Active Problems Problem Classification Problem Date Documented Date Episodic/Chronic Adjustment disorders (17 sources) Stress; Translations: [Reaction to severe stress, unspecified] Onset: 06-17-2022 Chronic Anxiety disorders (18 sources) Generalized anxiety disorder; Translations: [Generalized anxiety disorder] Onset: 06-17-2022 Chronic Bacterial infection; unspecified site (5 sources) Unspecified Escherichia coli [E. coli] as the cause of diseases classified elsewhere; Translations: [Bacterial infection, unspecified] Onset: 03-27-2023 03-31-2023 Episodic Calculus of urinary tract (4 sources) Calcium renal calculus ; Translations: [Calculus of kidney] Episodic Coronary atherosclerosis and other heart disease (5 sources) Coronary arteriosclerosis; Translations: [Atherosclerotic heart disease of [place] coronary artery without angina pectoris] Onset: 01-22-2023 01-24-2023 Chronic Diabetes mellitus without complication (20 sources) Type 2 diabetes mellitus without complication; Translations: [Type 2 diabetes mellitus without complications] Onset: 03-25-2021 03-25-2021 Chronic Diabetes mellitus without complication (5 sources) Hyperglycemia, unspecified; Translations: [Hyperglycemia] Onset: 10-10-2022 Episodic Diseases of white blood cells (20 sources) Leukocytosis; Translations: [Elevated white blood cell count, unspecified] Onset: 09-19-2011 09-02-2021 Chronic Disorders of lipid metabolism (20 sources) Hyperlipidemia; Translations: [Hyperlipidemia, unspecified] Onset: 09-14-2006 Chronic Essential hypertension (20 sources) Benign essential hypertension; Translations: [Essential (primary) hypertension] Onset: 02-06-2010 Chronic Fluid and electrolyte disorders (1 source) Lactic acidosis; Translations: [Lactic acidosis] 09-22-2023 Episodic Genitourinary symptoms and ill-defined conditions (20 sources) Urinary incontinence; Translations: [Unspecified urinary incontinence] Onset: 06-13-2015 06-13-2015 Chronic Hyperplasia of prostate (4 sources) Benign prostatic hypertrophy with outflow obstruction; Translations: [Benign localized hyperplasia of prostate with urinary obstruction and other lower urinary tract symptoms (LUTS)] Chronic Immunizations and screening for infectious disease (4 sources) Hepatitis B screening required; Translations: [Encounter for screening for other viral diseases] Episodic Inflammation; infection of eye (except that caused by tuberculosis or sexually transmitteddisease) (4 sources) Unspecified conjunctivitis; Translations: [Unspecified acute conjunctivitis, left eye] Onset: 06-06-2023 Episodic Other complications of (20 sources) Maternal tobacco use; Translations: [Tobacco use disorder complicating , childbirth, or the puerperium, unspecified as to episode of care or not applicable] 01-21-2010 Episodic Other connective tissue disease (1 source) Prepatellar bursitis of right knee; Translations: [Prepatellar bursitis, right knee] Episodic Other male genital disorders (4 sources) Male erectile dysfunction, unspecified; Translations: [Erectile dysfunction] Chronic Other nutritional; endocrine; and metabolic disorders (17 sources) Body mass index 40+ - severely obese; Translations: [Morbid (severe) obesity due to excess calories] Onset: 06-17-2022 Chronic Other nutritional; endocrine; and metabolic disorders (1 source) Morbid (severe) obesity due to excess calories; Translations: [Morbid (severe) obesity due to excess calories] Onset: 10-07-2022 Chronic Other nutritional; endocrine; and metabolic disorders (1 source) Body mass index (BMI) 40.0-44.9, adult; Translations: [Body mass index [BMI] 40.0-44.9, adult] Onset: 10-07-2022 Chronic Other nutritional; endocrine; and metabolic disorders (9 sources) Overweight; Translations: [Overweight] 01-21-2010 Episodic Other nutritional; endocrine; and metabolic disorders (16 sources) Overweight; Translations: [Overweight] 06-17-2022 Episodic Other screening for suspected conditions (not mental disorders or infectious disease) (2 sources) Patient encounter status; Translations: [Encounter for screening for malignant neoplasm of colon] Episodic Residual codes; unclassified (20 sources) Central sleep apnea syndrome; Translations: [Primary central sleep apnea] Onset: 04-02-2018 04-02-2018 Chronic Residual codes; unclassified (19 sources) Obstructive sleep apnea syndrome; Translations: [Obstructive sleep apnea (adult) (pediatric)] Onset: 06-17-2022 Chronic Residual codes; unclassified (1 source) Primary central sleep apnea; Translations: [Central sleep apnea] Onset: 04-02-2018 Chronic Residual codes; unclassified (16 sources) FH: Cardiovascular disease; Translations: [Family history of other cardiovascular diseases] 01-21-2010 Episodic Residual codes; unclassified (1 source) Did not attend; Translations: [No-show for appointment] Episodic Residual codes; unclassified (10 sources) Family history of cardiac disorder; Translations: [Family history of ischemic heart disease and other diseases of the circulatory system] Episodic Spondylosis; intervertebral disc disorders; other back problems (20 sources) Intervertebral disc disorder of cervical region with myelopathy; Translations: [Cervical disc disorder with myelopathy, cervicothoracic region] Onset: 05-08-2015 05-08-2015 Chronic Substance-related disorders (1 source) Nicotine dependence, unspecified, uncomplicated; Translations: [Tobacco dependence] Onset: 01-22-2023 Chronic Superficial injury; contusion (14 sources) Contusion of upper arm; Translations: [Other specified aftercare] Onset: 02-06-2022 Episodic Syncope (1 source) Syncope 10-07-2022 Thyroid disorders (20 sources) Hypothyroidism; Translations: [Hypothyroidism, unspecified] Onset: 10-09-2009 04-23-2018 Chronic Thyroid disorders (3 sources) Disorder of thyroid gland; Translations: [Disorder of thyroid, unspecified] Episodic Unclassified (2 sources) SYNOPAL 10-07-2022 Past or Other Problems Problem Classification Problem Date Documented Da te Episodic/Chronic Abdominal pain (6 sources) Epigastric pain; Translations: [Abdominal pain] Onset: 10-07-2022 09-22-2023 Episodic Cardiac dysrhythmias (1 source) Tachycardia, unspecified; Translations: [Tachycardia] Onset: 03-17-2023 Episodic Coronary atherosclerosis and other heart disease (6 sources) Patient post percutaneous transluminal coronary angioplasty; Translations: [Coronary angioplasty status] Onset: 01-22-2023 01-24-2023 Episodic Fever of unknown origin (1 source) Fever, unspecified; Translations: [FUO (fever of unknown origin)] Onset: 03-17-2023 Episodic Genitourinary symptoms and ill-defined conditions (20 sources) Nocturia; Translations: [Nocturia] Onset: 06-13-2015 06-13-2015 Episodic Nausea and vomiting (1 source) Nausea with vomiting, unspecified; Translations: [Nausea and vomiting, unspecified vomiting type] Onset: 03-17-2023 Episodic Nonspecific chest pain (5 sources) Chest pain; Translations: [Chest pain, unspecified] Onset: 10-07-2022 Episodic Other aftercare (1 source) Other computer terminal operator (current) drug therapy; Translations: [Other computer terminal operator (current) drug therapy] Onset: 10-07-2022 Episodic Other gastrointestinal disorders (1 source) Diarrhea, unspecified; Translations: [Diarrhea, unspecified type] Onset: 03-17-2023 Episodic Other upper respiratory infections (4 sources) Acute upper respiratory infection; Translations: [Acute upper respiratory infection, unspecified] Onset: 03-17-2023 Episodic Residual codes; unclassified (1 source) Family history of ischemic heart disease and other diseases of the circulatory system; Translations: [Family hx of ischem heart dis and oth dis of the [facility]] Onset: 10-07-2022 Episodic Septicemia (except in labor) (2 sources) Sepsis due to Escherichia coli; Translations: [Sepsis due to Escherichia coli [E. coli]] Onset: 03-30-2023 03-30-2023 Episodic Spondylosis; intervertebral disc disorders; other back problems (20 sources) Neck pain; Translations: [Cervicalgia] Onset: 04-20-2015 04-20-2015 Episodic Syncope (6 sources) Witnessed syncope; Translations: [Syncope and collapse] Onset: 10-07-2022 10-07-2022 Episodic Unclassified (1 source) Acidosis, unspecified; Translations: [Acidosis, unspecified] Onset: 09-22-2023 Results Test Name Value Interpretation Reference Range Facil ity Vital Signs Date Time Vital Sign Value Performing Clinician Facility 09-22-2023 22:00-0500 Diastolic blood pressure 79 mm[Hg] Ismael Suh DO Work Phone: [facility] 09-22-2023 22:00-0500 Heart rate 82 /min Ismael Suh DO Work Phone: [facility] 09-22-2023 22:00-0500 Respiratory rate 18 /min Ismael Suh DO Work Phone: [facility] 09-22-2023 22:00-0500 SaO2% (BldA) [Mass fraction] 95 % Ismael Suh DO Work Phone: [facility] 09-22-2023 22:00-0500 Systolic blood pressure 137 mm[Hg] Ismael Suh DO Work Phone: [facility] 09-22-2023 20:32-0500 Body temperature 37.0 degrees Celsius [facility] Encounters Encounter Date Encounter Type Care Provider Facility Start: 09-25-2023 End: 09-26-2023 ambulatory GINGER PRICE Facility:[facility] Start: 09-23-2023 End: 09-23-2023 Emergency department patient visit VANESSA SANTIZO [facility] Start: 09-23-2023 End: 09-24-2023 ambulatory DIONNE MARTINEZ [facility] Start: 09-23-2023 End: 09-23-2023 Subsequent hospital visit by physician Danny Vizcaino [facility] Procedures Date Procedure Procedure Detail Performing Clinician Start: 09-23-2023 ECG 12-LEAD GINGER VEGAO Start: 09-23-2023 Ecg routine ecg w/least 12 lds trcg only w/o i&r Dionne Martinez DRIVER EXAMINER-VIDEO PRESENTATION OPERATOR Work Phone: Start: 09-22-2023 Glucose [Mass/volume] in Serum or Plasma GINGER VEGAO Start: 09-22-2023 Lactate [Moles/volume] in Serum or Plasma GINGER VEGAO Start: 09-22-2023 Glucose [Mass/volume] in Serum or Plasma GINGER [facility] Start: 09-22-2023 Lactate [Moles/volume] in Serum or Plasma GINGER [facility] Start: 09-22-2023 SERIAL TROPONIN, 1 HOUR GINGER VEGAO Start: 09-22-2023 EXTRA URINE DELUNA TUBE GINGER [facility] Start: 09-22-2023 URINALYSIS WITH REFLEX CULTURE AND MICROSCOPIC GINGER [facility] Start: 09-22-2023 End: 09-22-2023 Assay of lactate Dionne Martinez DRIVER EXAMINER-VIDEO PRESENTATION OPERATOR Work Phone: Start: 09-22-2023 CT ABDOMEN PELVIS W IV CONTRAST GINGER VEGAO Start: 09-22-2023 TROPONIN SERIES- (INITIAL, 1 HR) GINGER VEGAO Start: 09-22-2023 BETA HYDROXYBUTYRATE GINGER [facility] Start: 09-22-2023 BLOOD GAS VENOUS GINGER PRICE Start: 09-22-2023 CBC W Auto Differential panel - Blood GINGER PRICE Start: 09-22-2023 Comprehensive metabolic 2000 panel - Serum or Plasma GINGER PRICE Start: 09-22-2023 Lactate [Moles/volume] in Serum or Plasma GINGER PRICE Start: 09-22-2023 Lipase [Enzymatic activity/volume] in Serum or Plasma GINGER PRICE Start: 09-22-2023 End: 09-22-2023 Assay of lactate Dionne Martinez DRIVER EXAMINER-VIDEO PRESENTATION OPERATOR Work Phone: Start: 09-22-2023 Urnls dip stick/tablet rgnt auto w/o microscopy Dionne Martinez DRIVER EXAMINER-VIDEO PRESENTATION OPERATOR Work Phone: Start: 09-22-2023 Ct abdomen & pelvis w/contrast material Dionne Martinez DRIVER EXAMINER-VIDEO PRESENTATION OPERATOR Work Phone: Start: 09-22-2023 Glucose [Mass/volume] in Serum or Plasma GINGER PRICE Start: 09-22-2023 Troponin I.cardiac panel - Serum or Plasma by High sensitivity method Ismael Suh DO Work Phone: Start: 09-22-2023 End: 09-22-2023 Comprehensive metabolic panel Dionne Martinez DRIVER EXAMINER-VIDEO PRESENTATION OPERATOR Work Phone: Start: 09-22-2023 Gases blood ph direct talita xcpt pulse oximitry Dionne Martinez DRIVER EXAMINER-VIDEO PRESENTATION OPERATOR Work Phone: Start: 09-22-2023 Glucose quantitative blood xcpt reagent strip Ismael Suh DO Work Phone: Start: 05-06-2023 Follow-up visit Start: 01-24-2023 History of placement of stent in anterior descending branch of left coronary artery Status post insertion of drug-eluting stent into left anterior descending (LAD) artery Ginger Price MD Work Phone: Start: 10-07-2022 End: 10-07-2022 EKG impression Beau Love Start: 06-27-2022 INFLUENZA VACCINE QUADRIVALENT 6 MO - 64 YRS IM Nadege Christine PA-C Work Phone: Start: 12-28-2020 Adult depression screening assessment Ginger Price MD Work Phone: Coronary artery bypa ss graft Ginger Price Work Phone: Plan of Treatment Date Care Activity Detail Author Start: 06-27-2032 DTaP/Tdap/Td Vaccines (3 - Td or Tdap) DTaP/Tdap/Td Vaccines (3 - Td or Tdap) [facility] Start: 06-27-2032 Urine microalbumin profile [facility] Start: 09-22-2026 Diabetes mellitus screening Diabetes Screening [facility] Start: 06-10-2026 TWO PNEUMOVAX 5 YEARS APART PRIOR TO AGE 65 (#2) TWO PNEUMOVAX 5 YEARS APART PRIOR TO AGE 65 (#2) [facility] Start: 03-30-2024 ANNUAL PCP TEAM CHRONIC DISEASE VISIT ANNUAL PCP TEAM CHRONIC DISEASE VISIT [facility] Start: 03-17-2024 ANNUAL PCP TEAM CHRONIC DISEASE VISIT ANNUAL PCP TEAM CHRONIC DISEASE VISIT [facility] Start: 01-23-2024 Hepatitis B surface antibody level LDL CHOLESTEROL [facility] Start: 10-30-2023 ANNUAL PCP TEAM CHRONIC DISEASE VISIT ANNUAL PCP TEAM CHRONIC DISEASE VISIT [facility] Start: 10-08-2023 ANNUAL PCP TEAM CHRONIC DISEASE VISIT ANNUAL PCP TEAM CHRONIC DISEASE VISIT [facility] Start: 08-28-2023 ANNUAL PCP TEAM CHRONIC DISEASE VISIT ANNUAL PCP TEAM CHRONIC DISEASE VISIT [facility] Start: 07-25-2023 Hemoglobin A1c/Hemoglobin.total in Blood HBA1C [facility] Start: 06-27-2023 3 comp foot exam completed DIABETIC FOOT EXAM [facility] Start: 06-27-2023 ANNUAL PCP TEAM CHRONIC DISEASE VISIT ANNUAL PCP TEAM CHRONIC DISEASE VISIT [facility] Start: 06-27-2023 BP CONTROLLED (<130/80) BP CONTROLLED (<130/80) [facility] Start: 06-27-2023 COVID-19 VACCINE (#1) COVID-19 VACCINE (#1) [facility] Immunizations Immunization Date Immunization Notes Care Provider Fa cility 06-27-2022 influenza, injectabl e, quadrivalent, contains preservative BRIANNE Christine PA-C Work Phone: [facility] 06-27-2022 pneumococcal polysaccharide vaccine, 23 valent NA Christine PA-C Work Phone: [facility] 06-27-2022 tetanus toxoid, redu jo diphtheria toxoid, and acellular pertussis vaccine, adsorbed NA Christine PA-C Work Phone: [facility] 06-27-2022 zoster vaccine recombinant NA Christine PA-C Work Phone: [facility] 06-27-2022 influenza virus vacc ine, unspecified formulation Ginger Price MD Work Phone: [facility] 06-10-2021 influenza, injectabl e, quadrivalent, contains preservative Ginger Price MD Work Phone: [facility] 06-10-2021 pneumococcal polysaccharide vaccine, 23 valent Ginger Price MD Work Phone: [facility] 07-23-2020 influenza, seasonal, injectable Ginger Price MD Work Phone: [facility] 07-23-2020 influenza, seasonal, injectable, preservative free NA Christine PA-C Work Phone: [facility] 06-30-2019 influenza, injectabl e, quadrivalent, contains preservative Ginger Price MD Work Phone: [facility] Work Phone: 08-07-2017 Influenza, injectabl e, Madin [place] Canine Kidney, preservative free, quadrivalent NA Christine PA-C Work Phone: [facility] 06-07-2017 influenza, seasonal, injectable, preservative free NA Christine PA-C Work Phone: [facility] 07-05-2016 influenza, injectabl e, quadrivalent, contains preservative Ginger Price MD Work Phone: [facility] 08-16-2015 influenza, injectabl e, quadrivalent, contains preservative Ginger Price MD Work Phone: [facility] 06-02-2014 influenza, seasonal, injectable Ginger Price MD Work Phone: [facility] 09-20-2012 influenza virus vacc ine, unspecified formulation Ginger Price MD Work Phone: [facility] Work Phone: 09-19-2011 influenza virus vacc ine, unspecified formulation Ginger Price MD Work Phone: [facility] Work Phone: 09-19-2011 tetanus toxoid, redu jo diphtheria toxoid, and acellular pertussis vaccine, adsorbed Ginger Price MD Work Phone: [facility] Work Phone: Payers Date Payer Category Payer Worker's Compensation [id number] 2022 Worker's Compensation [id number] 2019 Private Health Insurance [facility] CHOICE PLUS [id number] 2019-Present [phone] [address] [address] [place] [address] HMO [id number] 2016 Private Health Insurance [id number] 2016 Private Health Insurance [id number] 2016 Unknown 1970 Unknown [id number] 2.16.840.1.188326.3.579. 2. 1970 Unknown [id number] 2.16.840.1.772023.3.579. 2 1970 Unknown [id number] 2.16.840.1.017902.3.579. 2 1970 Unknown [id number] 2.16.840.1.145503.3.579. 2 1970 Unknown [id number] 2.16.840.1.407770.3.579. 2 1970 Unknown [id number] 2.16.840.1.210201.3.579. 2 1970 Unknown [id number] 2.16.840.1.919306.3.579. 2.3 1970 Unknown [id number] 2.16.840.1.636376.3.579. 2.1068 1970 Unknown [id number] 2.16.840.1.625547.3.579. 2.1068 1970 Unknown [id number] 2.16.840.1.364025.3.579. 2.1068 1970 Unknown [id number] 2.16.840.1.660858.3.579. 2.1068 1970 Unknown [id number] 2.16.840.1.442275.3.579. 2.1068 1970 Unknown [id number] 2.16.840.1.701593.3.579. 2.1068 1970 Unknown [id number] 2.16.840.1.412062.3.579. 2.1068 1970 Unknown [id number] 2.16.840.1.362622.3.579. 2.1068 1970 Unknown [id number] 2.16.840.1.959732.3.579. 2.1068 1970 Unknown [id number] 2.16.840.1.894711.3.579. 2.1068 1970 Unknown [id number] 2.16.840.1.334280.3.579. 2.1068 1970 Unknown [id number] 2.16.840.1.909013.3.579. 2.1068 1970 Unknown [id number] 2.16.840.1.037575.3.579. 2.1068 1970 Unknown [id number] 2.16.840.1.799746.3.579. 2.1068 1970 Unknown [id number] 2.16.840.1.545208.3.579. 2.356 1970 Unknown [id number] 2.16.840.1.454665.3.579. 2.356 1970 Unknown [id number] 2.16.840.1.642597.3.579. 2.356 1970 Unknown [id number] 2.16.840.1.627101.3.579. 2.902 1970 Unknown [id number] 2.16.840.1.683598.3.579. 2.902 1970 Unknown [id number] 2.16.840.1.090677.3.579. 2.902 1970 Unknown [id number] 1970 Unknown [id number] Unknown [id number] Worker's Compensation [id number] Social History Date Type Detail Facility Start: 03-18-2013 End: 06-27-2022 Tobacco smoking status IAIS Smokes tobacco daily [facility] End: 10-08-2022 History of tobacco use Cigarette Smoker [facility] Start: 08-09-2021 End: 03-30-2023 Alcohol intake Current drinker of alcohol (finding) [facility] Start: 02-01-2020 End: 12-28-2020 History SDOH Alcohol Frequency 1 [facility] Start: 02-01-2020 History SDOH Social Connections Phone 3 [facility] Start: 02-01-2020 History SDOH Physical Activity DPW 0 [facility] Start: 02-01-2020 End: 12-02-2021 History SDOH Transport Med 2 [facility] Start: 02-01-2020 Education 12 [facility] Start: 1970 Sex Assigned At Not on file [facility] Start: 10-15-2021 End: 09-22-2023 Exposure to SARS-CoV-2 (event) Not sure [facility] Start: 1970 Sex Assigned At Male [facility] Start: 03-18-2013 End: 01-22-2023 Cigarettes smoked current (pack per day) - Reported 1 [facility] Start: 03-18-2013 End: 03-17-2023 Tobacco use and exposure Smokeless tobacco non-user [facility] Work Phone: Start: 06-27-2022 Tobacco Comment 06/27/2022 5 cigs/day [facility] Tobacco smoking consumption unknown [facility] Start: 03-17-2023 Tobacco smoking status NHIS Ex-smoker [facility] End: 10-08-2022 History of tobacco use Current smoker [facility] Start: 01-22-2023 End: 03-17-2023 Tobacco use panel [facility] Adult Depression Screening Assessment 0 [facility] Start: 12-01-2021 Gender identity Identifies as male gender (finding) [facility] Do you belong to any clubs or organizations such as confucianist groups, unions, fraternal or athletic groups, or school groups? Yes [facility] Are you now , , , , never or living with a partner? [facility] How often to you hav e a drink containing alcohol? Never [facility] Do you feel stress - tense, restless, nervous, or anxious, or unable to sleep at night because your mind is troubled all the time - these days [OSQ] Not at all [facility] (I/We) worried wheth er (my/our) food would run out before (I/we) got money to buy more. Never true [facility] In the past 12 month s, was there a time when you were not able to pay the mortgage or rent on time? No [facility] Medical Equipment Procedure Code Equipment Code Equipment Origin al Text Equipment Identifier Dates Test blood sugar (s) 1 times daily. Dx: Type 2 DM - Controlled E11.9 Insulin: No Start: 04-04-2021 End: 11-07-2022 Clinical Notes 06-13-2015 to 09-25-2023 Telephone Encounter - Elyse Seals MA - 07/20/2023 10:57 AM ESTTelephone Encounter - Pat Tse LPN - 07/04/2023 8:16 AM Ginger Madrid MD - 03/30/2023 9:23 AM EDT Note Date & Type Note Facility 09-25-2023 Note HNO ID: [id number] Author: GINGER PRICE MD Service: ? Author Type: Physician Type: Progress Notes Filed: 09/25/2023 16:24 Note Text: No chief complaint on file. HPI: Patient presents today for office visit for follow up. HOSPITAL/ER FOLLOW UP: Reason for visit: hyperglycemia glucose 600-was thirsty and kept drinking Pepsi so checked glucose Which facility: [facility] Date of visit: 09/22/23 and 09/23/23 Diagnosis: hyperglycemia, abd pain. On the had sore throat. Flu and strep were negative. Testing done: CBC, CMP, lactate x3, lipase, troponin, UA, CT abd/pelvis, EKG Treatment given: was given fluids to bring glucose down Did have chest pain while he was there and given nitro. He does have chest pain on occasion and uses his nitro and it goes away. Current symptoms: readings still mostly [address] with contrast so had to hold metformin for 48 hours is back on it now. Having diarrhea now for 5 to 6 days. No bloody or black stools. No vomiting. No fever or urinary issues. Using nitro for periodic chest pain. Has done it at least weekly since his stents were placed. Has not discussed with cardiology. No current pain. Work up in er including EKG and enzymes were negative. MEDICATIONS: Current Outpatient Medications Medication Sig metoprolol succinate ER (TOPROL XL) 50 mg 24 hr tablet Take 1 tablet by mouth once daily. atorvastatin (LIPITOR) 40 mg tablet Take 1 tablet by mouth daily at bedtime. For cholesterol. amLODIPine (NORVASC) 10 mg tablet Take 1 tablet by mouth once daily. levothyroxine (SYNTHROID) 125 mcg tablet Take 1 tablet by mouth once daily. dulaglutide (TRULICITY) 0.75 mg/0.5 mL pen injector Inject 0.75 mg subcutaneously one time a week. Lancets lancets Test blood sugar(s) 1 times daily. Dx: Type 2 DM - Controlled E11.9 Insulin: No blood sugar diagnostic (BLOOD GLUCOSE TEST) test strip Test blood sugar(s) 1 times daily. Dx: Type 2 DM - Controlled E11.9 Insulin: No clopidogrel (PLAVIX) 75 mg tablet Take 75 mg by mouth once daily. aspirin, enteric coated (ASPIRIN, ENTERIC COATED) 81 mg EC tablet Take 81 mg by mouth once daily. nitroglycerin sublingual (NITROQUICK) 0.4 mg SL tablet Nitroglycerin Active 0.4 MG SL Q5M October 24, 2022 12:00am isosorbide dinitrate (ISORDIL) 5 mg tablet Take 5 mg by mouth twice daily. nystatin-triamcinolone (MYCOLOG) ointment Apply sparingly to perineum twice daily for irritation/infection. PARoxetine (PAXIL) 40 mg tablet Take 1 tablet by mouth once daily. nystatin-triamcinolone (MYCOLOG) ointment Apply sparingly to groin and penile rash twice daily for irritation/infection up to 2 weeks and then take 1 week off. COMPOUNDED PRESCRIPTION Initiate BiPAP @ 22/16 cm of water with humidification mask (per patient preference) optional chin strap (if indicated) and lifetime supplies DX: JOSIAH 327.23 No current facility-administered medications for this visit. ALLERGIES: ALLERGIES No Known Allergies PAST MEDICAL HISTORY Diagnosis Date Elevated white blood cell count has been reviewed by hematology. will follow periodically Fam hx-cardiovas dis NEC n/a father, of [place] at 45 Hypothyroid Other and unspecified hyperlipidemia Sep 14 (dx'd in hospital for atypical CP) Overweight(278.02) Sleep apnea Tobacco use disorder complicating , childbirth, or the puerperium, unspecified as to episode of care or not applicable 1989 Unspecified essential hypertension PAST SURGICAL HISTORY Procedure Laterality Date EXCISION OF BENIGN LESION, COMPLICATED 2003 Lipoma, abdominal wall, [facility] TONSILLECTOMY PRIMARY/SECONDARY Tonsillectomy FAMILY HISTORY Problem Relation Age of Onset Heart Father of HEART ATTACK AT AGE 45 Heart Mother no blockages , hyperlipidemia Breast Cancer Mother Diabetes Maternal Grandmother Breast Cancer Paternal Grandfather Hypertension Mother around age 60 Social History Tobacco Use Smoking status: Former Packs/day: 1.00 Years: 17.00 Additional pack years: 0.00 Total pack years: 17.00 Types: Cigarettes Quit date: 10/08/2022 Years since quittin.9 Smokeless tobacco: Never Tobacco comments: 06/27/2022 5 cigs/day Vaping Use Vaping Use: Never used Substance Use Topics Alcohol use: Yes Comment: occasionally (once every 2-3) Drug use: No Reviewed current medications, allergies, past medical history, surgical history, family history and social history today. REVIEW OF SYSTEMS All other reviewed and negative other than HPI. VITALS: BP 132/82 Pulse 81 Wt 133.8 kg (295 lb) SpO2 95% BMI 48.34 kg/m? Last 4 Encounter Wt Readings: Date: Wt: 03/30/2023 126.6 kg (279 lb) 01/22/2023 130.2 kg (287 lb) 10/30/2022 134.7 kg (297 lb) 10/08/2022 133.4 kg (294 lb) PHYSICAL EXAMINATION: General appearance: Well appearing, alert, in no acute distress, well-hydrated, wel (more content not included)... [facility] 07-20-2023 Miscellaneous Notes Patient has been identified by name and date of : Yes Requested Prescriptions Pending Prescriptions Disp Refills atorvastatin (LIPITOR) 40 mg tablet 90 tablet 1 Sig: Take 1 tablet by mouth daily at bedtime. For cholesterol. RX INSTRUCTIONS: Patient aware RX will be sent to pharmacy. No need to notify patient. Patient last office visit: 03/30/23 Patient next office visit: 07/24/23 Elyse Seals MA documented in this encounter [facility] 07-04-2023 Miscellaneous Notes [facility]XTON-03/30/23 Labs-03/30/23 NOV-07/24/23 documented in this encounter [facility] 04-16-2023 History of Presen t illness Narrative Patient is here for 1 week f/u w/ PSA. Most recent PSA was 0.19 on 04/29. He was seen last week for ER f/u. CT was done 10/07/22 and was normal from standpoint. CT at [place] showed mild perinephric stranding but no stones or obstruction. .Urine cx was sent last week that did come back positive. .He was given Augmentin on Thursday for a positive Cx and feels much better...ED is mild.. [facility] Work Phone: 03-30-2023 Note HNO ID: [id number] Author: Ginger Price MD Service: ? Author Type: Physician Type: Progress Notes Filed: 03/30/2023 9:51 AM Note Text: No chief complaint on file. HPI: Patient presents today for office visit for follow up. HOSPITAL/ER FOLLOW UP: Reason for visit: fever, abd pain Which facility: [facility] Date of visit: 03/18/23 Discharge: 03/22/23 Diagnosis: sepsis d/t bilateral acute complicated pyelonephritis, GM Testing done: CTabd/pelvis, chest x-ray Treatment given: after discharge had to go back to get injection of ertapenem to finish course. Current symptoms: feeling good now Glucose is elevated but is still off of metformin per discharge due to kidney function and CT scan Culture grew ESBL E coli saw ID in hospital Is supposed to see nephro to follow up also To see urology soon. Overall feeling well. No fever or chills. Strength is coming back. Had to go into hospital for IM injections but it was better. No urinary issues or abd pain. Sugars have been slightly up. They had him hold his metformin. MEDICATIONS: Current Outpatient Medications Medication Sig dulaglutide (TRULICITY) 0.75 mg/0.5 mL pen injector Inject 0.75 mg subcutaneously one time a week. Lancets lancets Test blood sugar(s) 1 times daily. Dx: Type 2 DM - Controlled E11.9 Insulin: No blood sugar diagnostic (BLOOD GLUCOSE TEST) test strip Test blood sugar(s) 1 times daily. Dx: Type 2 DM - Controlled E11.9 Insulin: No clopidogrel (PLAVIX) 75 mg tablet Take 75 mg by mouth once daily. aspirin, enteric coated (ASPIRIN, ENTERIC COATED) 81 mg EC tablet Take 81 mg by mouth once daily. nitroglycerin sublingual (NITROQUICK) 0.4 mg SL tablet Nitroglycerin Active 0.4 MG SL Q5M October 24, 2022 12:00am isosorbide dinitrate (ISORDIL) 5 mg tablet Take 5 mg by mouth twice daily. nystatin-triamcinolone (MYCOLOG) ointment Apply sparingly to perineum twice daily for irritation/infection. atorvastatin (LIPITOR) 40 mg tablet Take 1 tablet by mouth daily at bedtime. For cholesterol. PARoxetine (PAXIL) 40 mg tablet Take 1 tablet by mouth once daily. nystatin-triamcinolone (MYCOLOG) ointment Apply sparingly to groin and penile rash twice daily for irritation/infection up to 2 weeks and then take 1 week off. amLODIPine (NORVASC) 10 mg tablet Take 1 tablet by mouth once daily. levothyroxine (SYNTHROID) 125 mcg tablet Take 1 tablet by mouth once daily. metoprolol succinate ER (TOPROL XL) 50 mg 24 hr tablet Take 1 tablet by mouth once daily. (Patient taking differently: Take 100 mg by mouth once daily.) metFORMIN ER (GLUCOPHAGE XR) 500 mg 24 hr tablet Take 2 tablets by mouth twice daily. COMPOUNDED PRESCRIPTION Initiate BiPAP @ 22/16 cm of water with humidification mask (per patient preference) optional chin strap (if indicated) and lifetime supplies DX: JOSIAH 327.23 No current facility-administered medications for this visit. ALLERGIES: ALLERGIES No Known Allergies PAST MEDICAL HISTORY Diagnosis Date Elevated white blood cell count has been reviewed by hematology. will follow periodically Fam hx-cardiovas dis NEC n/a father, of [place] at 45 Hypothyroid Other and unspecified hyperlipidemia Sep 14 (dx'd in hospital for atypical CP) Overweight(278.02) Sleep apnea Tobacco use disorder complicating , childbirth, or the puerperium, unspecified as to episode of care or not applicable 1989 Unspecified essential hypertension PAST SURGICAL HISTORY Procedure Laterality Date EXCISION OF BENIGN LESION, COMPLICATED 2004 Lipoma, abdominal wall, [facility] TONSILLECTOMY PRIMARY/SECONDARY Tonsillectomy FAMILY HISTORY Problem Relation Age of Onset Heart Father of HEART ATTACK AT AGE 45 Heart Mother no blockages , hyperlipidemia Breast Cancer Mother Diabetes Maternal Grandmother Breast Cancer Paternal Grandfather Hypertension Mother around age 60 Social History Tobacco Use Smoking status: Former Packs/day: 1.00 Years: 17.00 Total pack years: 17.00 Types: Cigarettes Quit date: 10/08/2022 Years since quittin.4 Smokeless tobacco: Never Tobacco comments: 06/27/2022 5 cigs/day Vaping Use Vaping Use: Never used Substance Use Topics Alcohol use: Yes Comment: occasionally (once every 2-3) Drug use: No Reviewed current medications, allergies, past medical history, surgical history, family history and social history today. REVIEW OF SYSTEMS All other reviewed and negative other than HPI. VITALS: BP 132/72 Pulse 103 Wt 126.6 kg (279 lb) SpO2 96% BMI 45.72 kg/m? Last 4 Encounter Wt Readings: Date: Wt: 01/22/2023 130.2 kg (287 lb) 10/30/2022 134.7 kg (297 lb) 10/08/2022 133.4 kg (294 lb) 06/27/2022 128.4 kg (283 lb) PHYSICAL EXAMINATION: General appearance: Well appearing, alert, in no acute distress, well-hydrated, well nourished. Skin: Skin color, texture, turgor normal, no suspicious rashes or lesio (more content not included)... [facility] 03-30-2023 History of Presen t illness Narrative No chief complaint on file. HPI: Patient presents today for office visit for follow up. HOSPITAL/ER FOLLOW UP: Reason for visit: fever, abd pain Which facility: [facility] Date of visit: 03/18/23 Discharge: 03/22/23 Diagnosis: sepsis d/t bilateral acute complicated pyelonephritis, MG Testing done: CTabd/pelvis, chest x-ray Treatment given: after discharge had to go back to get injection of ertapenem to finish course. Current symptoms: feeling good now Glucose is elevated but is still off of metformin per discharge due to kidney function and CT scan Culture grew ESBL E coli saw ID in hospital Is supposed to see nephro to follow up also To see urology soon. Overall feeling well. No fever or chills. Strength is coming back. Had to go into hospital for IM injections but it was better. No urinary issues or abd pain. Sugars have been slightly up. They had him hold his metformin. MEDICATIONS: Current Outpatient Medications Medication Sig dulaglutide (TRULICITY) 0.75 mg/0.5 mL pen injector Inject 0.75 mg subcutaneously one time a week. Lancets lancets Test blood sugar(s) 1 times daily. Dx: Type 2 DM - Controlled E11.9 Insulin: No blood sugar diagnostic (BLOOD GLUCOSE TEST) test strip Test blood sugar(s) 1 times daily. Dx: Type 2 DM - Controlled E11.9 Insulin: No clopidogrel (PLAVIX) 75 mg tablet Take 75 mg by mouth once daily. aspirin, enteric coated (ASPIRIN, ENTERIC COATED) 81 mg EC tablet Take 81 mg by mouth once daily. nitroglycerin sublingual (NITROQUICK) 0.4 mg SL tablet Nitroglycerin Active 0.4 MG SL Q5M October 24, 2022 12:00am isosorbide dinitrate (ISORDIL) 5 mg tablet Take 5 mg by mouth twice daily. nystatin-triamcinolone (MYCOLOG) ointment Apply sparingly to perineum twice daily for irritation/infection. atorvastatin (LIPITOR) 40 mg tablet Take 1 tablet by mouth daily at bedtime. For cholesterol. PARoxetine (PAXIL) 40 mg tablet Take 1 tablet by mouth once daily. nystatin-triamcinolone (MYCOLOG) ointment Apply sparingly to groin and penile rash twice daily for irritation/infection up to 2 weeks and then take 1 week off. amLODIPine (NORVASC) 10 mg tablet Take 1 tablet by mouth once daily. levothyroxine (SYNTHROID) 125 mcg tablet Take 1 tablet by mouth once daily. metoprolol succinate ER (TOPROL XL) 50 mg 24 hr tablet Take 1 tablet by mouth once daily. (Patient taking differently: Take 100 mg by mouth once daily.) metFORMIN ER (GLUCOPHAGE XR) 500 mg 24 hr tablet Take 2 tablets by mouth twice daily. COMPOUNDED PRESCRIPTION Initiate BiPAP @ 22/16 cm of water with humidification mask (per patient preference) optional chin strap (if indicated) and lifetime supplies DX: JOSIAH 327.23 No current facility-administered medications for this visit. ALLERGIES: ALLERGIES No Known Allergies PAST MEDICAL HISTORY Diagnosis Date Elevated white blood cell count has been reviewed by hematology. will follow periodically Fam hx-cardiovas dis NEC n/a father, of [place] at 45 Hypothyroid Other and unspecified hyperlipidemia Sep 14 (dx'd in hospital for atypical CP) Overweight(278.02) Sleep apnea Tobacco use disorder complicating , childbirth, or the puerperium, unspecified as to episode of care or not applicable 1989 Unspecified essential hypertension PAST SURGICAL HISTORY Procedure Laterality Date EXCISION OF BENIGN LESION, COMPLICATED 2003 Lipoma, abdominal wall, [facility] TONSILLECTOMY PRIMARY/SECONDARY <AGE 12 age 4+/- Tonsillectomy FAMILY HISTORY Problem Relation Age of Onset Heart Father of HEART ATTACK AT AGE 45 Heart Mother no blockages , hyperlipidemia Breast Cancer Mother Diabetes Maternal Grandmother Breast Cancer Paternal Grandfather Hypertension Mother around age 60 Social History Tobacco Use Smoking status: Former Packs/day: 1.00 Years: 17.00 Total pack years: 17.00 Types: Cigarettes Quit date: 10/08/2022 Years since quittin.4 Smokeless tobacco: Never Tobacco comments: 06/27/2022 5 cigs/day Vaping Use Vaping Use: Never used Substance Use Topics Alcohol use: Yes Comment: occasionally (once every 2-3) Drug use: No Reviewed current medications, allergies, past medical history, surgical history, family history and social history today. REVIEW OF SYSTEMS All other reviewed and negative other than HPI. VITALS: BP 132/72 Pulse 103 Wt 126.6 kg (279 lb) SpO2 96% BMI 45.72 kg/m Last 4 Encounter Wt Readings: Date: Wt: 01/22/2023 130.2 kg (287 lb) 10/30/2022 134.7 kg (297 lb) 10/08/2022 133.4 kg (294 lb) 06/27/2022 128.4 kg (283 lb) PHYSICAL EXAMINATION: General appearance: Well appearing, alert, in no acute distress, well-hydrated, well nourished. Skin: Skin color, texture, turgor normal, no suspicious rashes or lesions Head: Normocephalic, no masses, lesions, tenderness or abnormalities Back: no cva tenderness Lungs: Lungs clear to auscultation. No wheezing, rhonchi, rales Heart: RRR without murmur, gallop, or rubs. No ectopy Abdomen: Normal abdominal exam, Abdomen soft, non-tender. Bowel sounds normal. No masses, organomegaly Extremities: No deformities, edema, skin discoloration, clubbing or cyanosis. Good capillary refill. ASSESSMENT/PLAN: 1. Sepsis due to Escherichia coli without acute organ dysfunction (HCC) - ICD9: 038.42, 995.92, ICD10: A41.51 (primary diagnosis) - follow with urology. Check labs. Can resume metformin if renal function is ok. Back to work in am. - CBC + DIFF - BASIC METABOLIC PNL 2. Acute pyelonephritis - ICD9: 590.10, ICD10: N10 - doing better. 3. Essential hypertension, benign - ICD9: 401.1, ICD10: I10 - Controlled - Continue current medications 4. Controlled type 2 diabetes mellitus without complication, without long-term current use of insulin (HCC) - ICD9: 250.00, ICD10: E11.9 - stable. Ginger Pirce MD documented in this encounter [facility] 03-17-2023 Note HNO ID: [id number] Author: Fiona Kee MD Service: ? Author Type: Physician Type: Progress Notes Filed: 03/18/2023 8:08 AM Note Text: Chief Complaint Patient presents with: Vomiting Diarrhea Fever HPI Rgegie King is a 52 year old male who presents here today for Above Complaints.. Patient complaining of fever/chills, diaphoresis, cough, wheezing, SOB, chest pain with cough, chest congestion. sore throat, generalized abdominal pain 10/10 now with radiation into his back, ear pain, vomiting, diarrhea, fatigue x 3 days. Treating with tylenol and Nyquil without much improvement in symptoms. No recent sick contacts. States that he has not been able to tolerate PO diet. Has not had anything to eat in 4 days and when he drinks he will vomit back up. Notes that he was at [facility] ED about 2 weeks ago for similar symptoms and was told he had a virus and he was dehydrated. Symptoms resolved about 3 days after discharge. Past medical history, appointments, medications, allergies reviewed. Previous Medical History PAST MEDICAL HISTORY Diagnosis Date Elevated white blood cell count has been reviewed by hematology. will follow periodically Fam hx-cardiovas dis NEC n/a father, of [place] at 45 Hypothyroid Other and unspecified hyperlipidemia Sep 14 (dx'd in hospital for atypical CP) Overweight(278.02) Sleep apnea Tobacco use disorder complicating , childbirth, or the puerperium, unspecified as to episode of care or not applicable 1989 Unspecified essential hypertension Previous Surgical History PAST SURGICAL HISTORY Procedure Laterality Date EXCISION OF BENIGN LESION, COMPLICATED 2003 Lipoma, abdominal wall, [facility] TONSILLECTOMY PRIMARY/SECONDARY Tonsillectomy Family History FAMILY HISTORY Problem Relation Age of Onset Heart Father of HEART ATTACK AT AGE 45 Heart Mother no blockages , hyperlipidemia Breast Cancer Mother Diabetes Maternal Grandmother Breast Cancer Paternal Grandfather Hypertension Mother around age 60 Patient Allergies ALLERGIES No Known Allergies Current Medications Current Outpatient Medications on File Prior to Visit Medication Sig dulaglutide (TRULICITY) 0.75 mg/0.5 mL pen injector Inject 0.75 mg subcutaneously one time a week. clopidogrel (PLAVIX) 75 mg tablet Take 75 mg by mouth once daily. aspirin, enteric coated (ASPIRIN, ENTERIC COATED) 81 mg EC tablet Take 81 mg by mouth once daily. nitroglycerin sublingual (NITROQUICK) 0.4 mg SL tablet Nitroglycerin Active 0.4 MG SL Q5M October 24, 2022 12:00am isosorbide dinitrate (ISORDIL) 5 mg tablet Take 5 mg by mouth twice daily. nystatin-triamcinolone (MYCOLOG) ointment Apply sparingly to perineum twice daily for irritation/infection. atorvastatin (LIPITOR) 40 mg tablet Take 1 tablet by mouth daily at bedtime. For cholesterol. PARoxetine (PAXIL) 40 mg tablet Take 1 tablet by mouth once daily. nystatin-triamcinolone (MYCOLOG) ointment Apply sparingly to groin and penile rash twice daily for irritation/infection up to 2 weeks and then take 1 week off. amLODIPine (NORVASC) 10 mg tablet Take 1 tablet by mouth once daily. levothyroxine (SYNTHROID) 125 mcg tablet Take 1 tablet by mouth once daily. metoprolol succinate ER (TOPROL XL) 50 mg 24 hr tablet Take 1 tablet by mouth once daily. (Patient taking differently: Take 100 mg by mouth once daily.) metFORMIN ER (GLUCOPHAGE XR) 500 mg 24 hr tablet Take 2 tablets by mouth twice daily. Lancets lancets Test blood sugar(s) 1 times daily. Dx: Type 2 DM - Controlled E11.9 Insulin: No blood sugar diagnostic (BLOOD GLUCOSE TEST) test strip Test blood sugar(s) 1 times daily. Dx: Type 2 DM - Controlled E11.9 Insulin: No COMPOUNDED PRESCRIPTION Initiate BiPAP @ 22/16 cm of water with humidification mask (per patient preference) optional chin strap (if indicated) and lifetime supplies DX: JOSIAH 327.23 No current facility-administered medications on file prior to visit. Social History Social History Tobacco Use Smoking status: Former Packs/day: 1.00 Years: 17.00 Total pack years: 17.00 Types: Cigarettes Quit date: 10/08/2022 Years since quittin.4 Smokeless tobacco: Never Tobacco comments: 06/27/2022 5 cigs/day Vaping Use Vaping Use: Never used Substance Use Topics Alcohol use: Yes Comment: occasionally (once every 2-3) Drug use: No Review of Symptoms REVIEW OF SYSTEMS See HPI EXAM: BP 134/64 Pulse (!) 124 Temp (!) 38.7 ?C (101.7 ?F) Resp 18 SpO2 96% General Appearance: Ill appearing, shaking chills. Non toxic. Skin: Skin color, texture, turgor normal, no suspicious rashes or lesions. Head: Normocephalic, no masses, lesions, tenderness or abnormalities. Eyes: Anicteric sclera. Pupils are equally round and reactive to light. Extraocular movements are intact. . Ears: External ears normal, canals clear. TMs normal. Nose/Sinuse (more content not included)... [facility] 03-17-2023 Miscellaneous Notes spouse returned call and appt noteds updated Patient scheduled appt for this evening via VocalZoom and only notes state sick . Requesting patient to return call or message via VocalZoom more detailed report of complaint. documented in this encounter [facility] 01-22-2023 Note HNO ID: [id number] Author: Nadege Christine PA-C Service: ? 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 OM1: 65% Mid RPDA 50%, distal 70%, small 1.5 mm vessel Successful KESHAV proximal LAD using resolute Latonia 3.0 x 15 mm post dilation with 3.25 mm balloon, approximately 3.5 mm balloon Recommendations: Aspirin indefinitely, Plavix for at least 12 months. 10/22/2022 echocardiogram WC: LV: Size and LVSF WNL, EF 60% RV: Normal Atria: Left normal size, right not well visualized. MV, TV, PV not well visualized. AV: Normal Aortic root not well visualized. Identified study was technically difficult 10/13/2022 Consult [facility] with Dr. Ashley Patton: Notes indicate patient felt lightheaded, also vertiginous prior to syncopal event. No seizure activity. Had 3 successive episodes. Was complaining of anterior chest tightness with exertion, relieved by rest. Diagnosed with acute angina, plan: Started on ASA 81 mg daily, increase metoprolol 100 mg daily recommended heart cath with possible revascularization. EKG 10/08/[address] Price consult [facility] for cardiology 10/07/2022 ER visit [facility]: Became dizzy after smoking cigarette, passed out. No seizure-like activity. EKG, labs, serial enzymes, CT of head chest and abdomen all within normal limits. Current meds: Amlodipine 10mg daily ASA 81mg daily Clopidogrel 75mg daily Isosorbide dinitrate 5mg twice a day Metoprolol succinate ER 50mg daily NTG 0.4mg SL prn Use of NTG: Yes, 2 weeks ago, using about once or twice a week up to this month. Chest pain, arm, jaw pain, neck, or upper back pain suggestive of angina: Yes. Gets pain in left substernal, aching. Mayb 5/10, less than a toothache. Goes away with NTG SOB: No Dyspnea with exertion: No orthopnea: No Cough : No racing or irregular heartbeats: No palpitations: No syncopal sx: No Headache: No Unexplainable fatigue No Leg swelling: No Nausea: No diaphoresis: No Heartburn: No Claudication: No Smoking: QUIT SMOKING!!! Following Low cholesterol, high fiber diet? Yes If on statin: muscle aches? No If on statin: GI sx or diarrhea? 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 Lab review: Component Latest Ref Rng AND Units 06/27/2022 01/22/2023 Protein, Total 6.3 - 8.0 g/dL 7.4 7.7 Albumin 3.9 - 4.9 g/dL 4.4 4.3 Calcium 8.5 - 10.2 mg/dL 9.3 9.6 Bilirubin, Total 0.2 - 1.3 mg/dL 0.5 0.6 Alkaline Phosphatase 38 - 113 U/L 88 97 AST 14 - 40 U/L 20 21 ALT 10 - 54 U/L 28 32 Glucose 74 - 99 mg/dL 74 88 BUN 9 - 24 mg/dL 13 15 Creatinine 0.73 - 1.22 mg/dL 0.80 0.96 Sodium 136 - 144 mmol/L 140 138 Potassium 3.7 - 5.1 mmol/L 4.4 4.2 Chloride 97 - 105 mmol/L 102 98 CO2 22 - 30 mmol/L 26 26 Anion Gap 9 - 18 mmol/L 12 14 eGFR >=60 mL/min/1.73mA? 107 95 WBC 3.70 - 11.00 k/uL 9.84 10.54 RBC 4.20 - 6.00 m/uL 5.05 4.99 Hemoglobin 13.0 - 17.0 g/dL 14.4 13.9 Hematocrit 39.0 - 51.0 % 46.2 44.2 MCV 80.0 - 100.0 fL 91.5 88.6 MCH 26.0 - 34.0 pg 28.5 27.9 MCHC 30.5 - 36.0 g/dL 31.2 31.4 RDW-CV 11.5 - 15.0 % 14.7 14.3 Platelet Count 150 - 400 k/uL 178 228 MPV 9.0 - 12.7 fL 11.0 10.3 Absolute nRBC <0.01 k/uL <0.01 <0.01 Cholesterol, Total <200 mg/dL 194 177 Triglyceride <150 mg/dL 225 (H) 166 (H) HDL Cholesterol >39 mg/dL 33 (L) 37 (L) Non HDL Cholesterol <130 mg/dL 161 (H) 140 (H) Fasting Time hrs 17 15 VLDL Cholesterol <30 mg/dL 45 (H) 33 (H) TC:HDL Ratio <5.10 5.88 (H) 4.78 LDL Cholesterol <100 mg/dL 116 (H) 107 (H) LDL:HDL Ratio <2.54 3.52 (H) 2.89 (H) Central sleep apnea BiPaP@22/16cm H2O Compliant Sleeps well with machine, good energy levels Controlled type 2 diabetes mellitus without complication, without long-term current use of insulin ([facility]cc) Diabetes Mellitus Type 2: Current medications: Dulaglutide 0.75mg sc weekly Metformin ER 500mg 2 tabs twice a day Taking medication as directed consistently? Yes Medication side effects: none Medical Issues / Complications: hypertension and hyperlipidemia Checking blood sugars at home? Yes.110-160 Watching diet? Yes Physical Activity: Regular- doing some walking Hypoglycemic spells? No Any visual disturbance? No Chest pain? No New numbness, tingling or loss of sensation? No Any recent foot problems, sores or rashes? No Any recent or sudden weight loss? No Change in urination? N (more content not included)... [facility] 11-24-2022 Miscellaneous Notes Patient phones requesting refills as follows: Requested Prescriptions Pending Prescriptions Disp Refills dulaglutide (TRULICITY) 0.75 mg/0.5 mL pen injector 4 Each 5 Sig: Inject 0.75 mg subcutaneously one time a week. PAXTON 10/30/22 NOV 01/22/23 Please review and advise. Ronnie Barrow LPN documented in this encounter [facility] 10-30-2022 Miscellaneous Notes Addended letter. Mac Christine PA-C Patient Liliana returned call and went over notes from Mac VALENTIN with understanding. 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 Went over notes again from Mac and she said I will tell my . Called and left message. Letter reads as follows: To Whom it may concern, Reggie M Sheets was examined here for an acute medical condition. Please excuse him from work missed from 10/08/2022 through today. May return next scheduled shift without restrictions. Thank you, Grady Christine PA-C This should satisfy the requirement if next scheduled shift is 11/03/22. No need for 2nd letter to be written. I wrote a letter today- is that what is being addressed? Thanks, Mac Christine PA-C Pt seen yesterday 10/29/22 and letter was given. Pt's work is going to be shut down and pt will return to work on 11-03-22. The letter needs to have return to work on 11-03-22 without restrictions. Please call when the letter is ready and she will come brass pickler. Danielle Mann LPN documented in this encounter [facility] 10-30-2022 Note HNO ID: [id number] Author: Nadege Christine PA-C Service: ? 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 Observation by family that head and neck areas were swollen. Patient was standing and suddenly passed out seizure, tongue biting, incontinence or major injury Initial vital signs: 130/86-70-16-90 8.1F-95%, height 5 foot 8 inches, weight 292lb/132.5 kg Orthostatic vital signs showed no significant change. Exam was essentially normal, no acute distress, no palpable chest pain or tenderness. EKG: Normal sinus rhythm, no signs of cardiac ischemia on initial and repeated EKG. Troponin was 5. Did not stay for second troponin draw Heart score 3 [address] low risk. Chest x-ray demonstrated no infiltration or congestion. COVID test negative. Chemistries were normal except for elevated blood sugar 233 UA micro: WNL. Discharged in stable condition 10/13/[address] Ashley Patton[facility]. In that visit patient identified in addition to his syncope he had been having sharp stabbing chest pains and chest tightness with exertion over the last week. Due to positive cardiac risk for decision was made to proceed with echocardiogram and left heart cath 10/22/2022 echocardiogram: LV size and LV SF WNL, ejection fraction 60% RV size and RV SF WNL. Atria: Normal LA size, RA not well visualized. Mitral, tricuspid, pulmonic valves not well visualized, aortic valve normal. Great vessels not well visualized. No pericardial effusion. 10/25/2022 EKG: Normal sinus rhythm, incomplete RBBB, nonspecific T wave abnormality now evident in anterior leads. Off work three weeks. Follow up with Dr. Patton on 11/05/22 Currently: Feeling better now Experiencing intermittent palpitations with exertion Described as fluttering in chest , not painful Last for about 1-2 minutes Experiences with exertion Denies dizziness, syncopal episodes, SOB, chest pain, nausea, vomiting, edema in legs/feet. R wrist is sore from catheterization Occurs after holding something for a long period of time Feels like hand is swollen No relief with heat Some relief with ice Full ROM (+) numbness in dorsal aspect of the hand, constant until he relaxes his hand or using ice Would like to quit smoking and start losing weight. Asking about starting a nicotine pack. Smokes 1 PPD, wakes with craving. HISTORIES FAMILY HISTORY Problem Relation Age of Onset Heart Father of HEART ATTACK AT AGE 45 Heart Mother no blockages , hyperlipidemia Breast Cancer Mother Diabetes Maternal Grandmother Breast Cancer Paternal Grandfather Hypertension Mother around age 60 PAST MEDICAL HISTORY Diagnosis Date Elevated white blood cell count has been reviewed by hematology. will follow periodically Fam hx-cardiovas dis NEC n/a father, of [place] at 45 Hypothyroid Other and unspecified hyperlipidemia Sep 14 (dx'd in hospital for atypical CP) Overweight(278.02) Sleep apnea Tobacco use disorder complicating , childbirth, or the puerperium, unspecified as to episode of care or not applicable 1989 Unspecified essential hypertension PAST SURGICAL HISTORY Procedure Laterality Date EXCISION OF BENIGN LESION, COMPLICATED 2004 Lipoma, abdominal wall, [facility] TONSILLECTOMY PRIMARY/SECONDARY Tonsillectomy Social History Tobacco Use Smoking status: Every Day Packs/day: 1.00 Years: 17.00 Pack years: 17.00 Types: Cigarettes Smokeless tobacco: Never Tobacco comments: 06/27/2022 5 cigs/day Vaping Use Vaping Use: Never used Substance Use Topics Alcohol use: Yes Comment: occasionally (once every 2-3) Drug use: No ACTIVE PROBLEM LIST Hyperlipidemia Family History of Heart Disease Overweight Tobacco Use Disorder Complicating , Childbirth, Or The Puerperium, Unspecified As to Episode of Care Or Not Applicable Hypothyroidism Essential Hypertension, Benign Leukocytosis Cervicalgia Lumbago 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 For cholesterol. 90 tablet (more content not included)... [facility] 10-08-2022 Note HNO ID: [id number] Author: Ginger Price MD Service: ? Author Type: Physician Type: Progress Notes Filed: 10/08/2022 11:58 AM Note Text: Patient presents with: ER F/U HPI: Patient presents today for office visit for ER F/U. [facility] ER 10/07/22. Transported via EMS after syncopal episode at home. Became dizzy after smoking a cigarette and passed out. Does not remember passing out. states he came too and then would fall out again a few different times. His was with him. No seizure like activity. No loss of control or bladder. Was out of for a minute per . Passed out three more times and then was confused. He reports epigastric pain when it started. Complained of that on awakening. Pain lasted about six or seven hours and then disappeared. No chest pain since. No chest pain or shortness of breath prior. Had noted some palpitations as well. Did ekgs and labs. Sounds like he had serial enzymes. Did ct of head , chest and abdomen. Said everything was ok but recommended he see cardiology. Father had heart disease in his 40s Has been tired but otherwise ok. Unfortunately, I can see very little of records in clini sync and I have no actual records here. MEDICATIONS: Current Outpatient Medications Medication Sig atorvastatin (LIPITOR) 40 mg tablet Take 1 tablet by mouth daily at bedtime. For cholesterol. PARoxetine (PAXIL) 40 mg tablet Take 1 tablet by mouth once daily. nystatin-triamcinolone (MYCOLOG) ointment Apply sparingly to groin and penile rash twice daily for irritation/infection up to 2 weeks and then take 1 week off. amLODIPine (NORVASC) 10 mg tablet Take 1 tablet by mouth once daily. levothyroxine (SYNTHROID) 125 mcg tablet Take 1 tablet by mouth once daily. metoprolol succinate ER (TOPROL XL) 50 mg 24 hr tablet Take 1 tablet by mouth once daily. metFORMIN ER (GLUCOPHAGE XR) 500 mg 24 hr tablet Take 2 tablets by mouth twice daily. Lancets lancets Test blood sugar(s) 1 times daily. Dx: Type 2 DM - Controlled E11.9 Insulin: No blood sugar diagnostic (BLOOD GLUCOSE TEST) test strip Test blood sugar(s) 1 times daily. Dx: Type 2 DM - Controlled E11.9 Insulin: No nystatin-triamcinolone (MYCOLOG) ointment Apply sparingly to perineum twice daily for irritation/infection. COMPOUNDED PRESCRIPTION Initiate BiPAP @ 22/16 cm of water with humidification mask (per patient preference) optional chin strap (if indicated) and lifetime supplies DX: JOSIAH 327.23 No current facility-administered medications for this visit. ALLERGIES: ALLERGIES No Known Allergies PAST MEDICAL HISTORY Diagnosis Date Elevated white blood cell count has been reviewed by hematology. will follow periodically Fam hx-cardiovas dis NEC n/a father, of [place] at 45 Hypothyroid Other and unspecified hyperlipidemia Sep 14 (dx'd in hospital for atypical CP) Overweight(278.02) Sleep apnea Tobacco use disorder complicating , childbirth, or the puerperium, unspecified as to episode of care or not applicable 1989 Unspecified essential hypertension PAST SURGICAL HISTORY Procedure Laterality Date EXCISION OF BENIGN LESION, COMPLICATED 2003 Lipoma, abdominal wall, [facility] TONSILLECTOMY PRIMARY/SECONDARY Tonsillectomy FAMILY HISTORY Problem Relation Age of Onset Heart Father of HEART ATTACK AT AGE 45 Heart Mother no blockages , hyperlipidemia Breast Cancer Mother Diabetes Maternal Grandmother Breast Cancer Paternal Grandfather Hypertension Mother around age 60 Social History Tobacco Use Smoking status: Every Day Packs/day: 1.00 Years: 17.00 Pack years: 17.00 Types: Cigarettes Smokeless tobacco: Never Tobacco comments: 06/27/2022 5 cigs/day Vaping Use Vaping Use: Never used Substance Use Topics Alcohol use: Yes Comment: occasionally (once every 2-3) Drug use: No Reviewed current medications, allergies, past medical history, surgical history, family history and social history today. REVIEW OF SYSTEMS All other reviewed and negative other than HPI. VITALS: BP 136/90 Pulse 70 Ht 166.4 cm (5' 5.5 ) Wt 133.4 kg (294 lb) SpO2 95% BMI 48.18 kg/m? Last 4 Encounter Wt Readings: Date: Wt: 06/27/2022 128.4 kg (283 lb) 01/26/2022 127 kg (280 lb) 12/09/2021 131.1 kg (289 lb) 12/03/2021 132.5 kg (292 lb 3.2 oz) PHYSICAL EXAMINATION: General appearance: Well appearing, alert, in no acute distress, well-hydrated, well nourished. Skin: Skin color, texture, turgor normal, no suspicious rashes or lesions Head: Normocephalic, no masses, lesions, tenderness or abnormalities Lungs: Lungs clear to auscultation. No wheezing, rhonchi, rales Heart: RRR without murmur, gallop, or rubs. No ectopy Abdomen: Normal abdominal exam, Abdomen soft, non-tender. Bowel sounds normal. No masses, organomegaly Extremities: No deformities, edema, skin discoloration, clubbing or cyanosis. Good capillary (more content not included)... [facility] 10-08-2022 History of Presen t illness Narrative Patient presents with: ER F/U HPI: Patient presents today for office visit for ER F/U. [facility] ER 10/07/22. Transported via EMS after syncopal episode at home. Became dizzy after smoking a cigarette and passed out. Does not remember passing out. states he came too and then would fall out again a few different times. His was with him. No seizure like activity. No loss of control or bladder. Was out of for a minute per . Passed out three more times and then was confused. He reports epigastric pain when it started. Complained of that on awakening. Pain lasted about six or seven hours and then disappeared. No chest pain since. No chest pain or shortness of breath prior. Had noted some palpitations as well. Did ekgs and labs. Sounds like he had serial enzymes. Did ct of head , chest and abdomen. Said everything was ok but recommended he see cardiology. Father had heart disease in his 40s Has been tired but otherwise ok. Unfortunately, I can see very little of records in clini sync and I have no actual records here. MEDICATIONS: Current Outpatient Medications Medication Sig atorvastatin (LIPITOR) 40 mg tablet Take 1 tablet by mouth daily at bedtime. For cholesterol. PARoxetine (PAXIL) 40 mg tablet Take 1 tablet by mouth once daily. nystatin-triamcinolone (MYCOLOG) ointment Apply sparingly to groin and penile rash twice daily for irritation/infection up to 2 weeks and then take 1 week off. amLODIPine (NORVASC) 10 mg tablet Take 1 tablet by mouth once daily. levothyroxine (SYNTHROID) 125 mcg tablet Take 1 tablet by mouth once daily. metoprolol succinate ER (TOPROL XL) 50 mg 24 hr tablet Take 1 tablet by mouth once daily. metFORMIN ER (GLUCOPHAGE XR) 500 mg 24 hr tablet Take 2 tablets by mouth twice daily. Lancets lancets Test blood sugar(s) 1 times daily. Dx: Type 2 DM - Controlled E11.9 Insulin: No blood sugar diagnostic (BLOOD GLUCOSE TEST) test strip Test blood sugar(s) 1 times daily. Dx: Type 2 DM - Controlled E11.9 Insulin: No nystatin-triamcinolone (MYCOLOG) ointment Apply sparingly to perineum twice daily for irritation/infection. COMPOUNDED PRESCRIPTION Initiate BiPAP @ 22/16 cm of water with humidification mask (per patient preference) optional chin strap (if indicated) and lifetime supplies DX: JOSIAH 327.23 No current facility-administered medications for this visit. ALLERGIES: ALLERGIES No Known Allergies PAST MEDICAL HISTORY Diagnosis Date Elevated white blood cell count has been reviewed by hematology. will follow periodically Fam hx-cardiovas dis NEC n/a father, of [place] at 45 Hypothyroid Other and unspecified hyperlipidemia Sep 14 (dx'd in hospital for atypical CP) Overweight(278.02) Sleep apnea Tobacco use disorder complicating , childbirth, or the puerperium, unspecified as to episode of care or not applicable 1989 Unspecified essential hypertension PAST SURGICAL HISTORY Procedure Laterality Date EXCISION OF BENIGN LESION, COMPLICATED 2004 Lipoma, abdominal wall, [facility] TONSILLECTOMY PRIMARY/SECONDARY <AGE 12 age 4+/- Tonsillectomy FAMILY HISTORY Problem Relation Age of Onset Heart Father of HEART ATTACK AT AGE 45 Heart Mother no blockages , hyperlipidemia Breast Cancer Mother Diabetes Maternal Grandmother Breast Cancer Paternal Grandfather Hypertension Mother around age 60 Social History Tobacco Use Smoking status: Every Day Packs/day: 1.00 Years: 17.00 Pack years: 17.00 Types: Cigarettes Smokeless tobacco: Never Tobacco comments: 06/27/2022 5 cigs/day Vaping Use Vaping Use: Never used Substance Use Topics Alcohol use: Yes Comment: occasionally (once every 2-3) Drug use: No Reviewed current medications, allergies, past medical history, surgical history, family history and social history today. REVIEW OF SYSTEMS All other reviewed and negative other than HPI. VITALS: BP 136/90 Pulse 70 Ht 166.4 cm (5' 5.5 ) Wt 133.4 kg (294 lb) SpO2 95% BMI 48.18 kg/m Last 4 Encounter Wt Readings: Date: Wt: 06/27/2022 128.4 kg (283 lb) 01/26/2022 127 kg (280 lb) 12/09/2021 131.1 kg (289 lb) 12/03/2021 132.5 kg (292 lb 3.2 oz) PHYSICAL EXAMINATION: General appearance: Well appearing, alert, in no acute distress, well-hydrated, well nourished. Skin: Skin color, texture, turgor normal, no suspicious rashes or lesions Head: Normocephalic, no masses, lesions, tenderness or abnormalities Lungs: Lungs clear to auscultation. No wheezing, rhonchi, rales Heart: RRR without murmur, gallop, or rubs. No ectopy Abdomen: Normal abdominal exam, Abdomen soft, non-tender. Bowel sounds normal. No masses, organomegaly Extremities: No deformities, edema, skin discoloration, clubbing or cyanosis. Good capillary refill. Musculoskeletal: No joint swelling, deformity, or tenderness ASSESSMENT/PLAN: 1. Chest pain, unspecified type - ICD9: 786.50, ICD10: R07.9 (primary diagnosis) - given hx, to cardiology soon. No driving given syncope. Red flags for re-assessment reviewed with patient in detail. 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 Off work until his next appt. - CONSULT TO CARDIOLOGY 2. Essential hypertension, benign - ICD9: 401.1, ICD10: I10 - fair control - Continue current medication(s) - Goal of BP <130/80 3. Controlled type 2 diabetes mellitus without complication, without long-term current use of insulin ([facility]) - ICD9: 250.00, ICD10: E11.9 - HGB A1C 4. Hypothyroidism, acquired - ICD9: 244.9, ICD10: E03.9 - check labs. - TSH BLD 5. Syncope, unspecified syncope type - ICD9: 780.2, ICD10: R55 - rule out cardiac cause. Doubt neuro given hx. Will get old records from [facility]. - CONSULT TO CARDIOLOGY 6. Family history of heart disease - ICD9: V17.49, ICD10: Z82.49 - CONSULT TO CARDIOLOGY Ginger Price MD documented in this encounter [facility] 10-07-2022 History of Presen t illness Narrative Patient is here for kidney stone and pyelonephritis..Patient was in [facility], was treated with IV antibiotics and IM injections after discharge..States is feeling better..CT was done 10/07/22 and was normal from standpoint. CT at [place] showed mild perinephric stranding but no stones or obstruction. ..Chronic BPH with LUTs, sx are mild and stable..No dysuria, No hematuria since discharged from [facility]..Nocturia x 1-2, depending on fluid intake..ED is mild.. No PSA. [id number] DO Work Phone: 10-07-2022 History of Presen t illness Narrative Patient is here for kidney stone and pyelonephritis..Patient was in [facility], was treated with IV antibiotics and IM injections after discharge..States is feeling better..CT was done 10/07/22 and was normal from standpoint. CT at [place] showed mild perinephric stranding but no stones or obstruction. ..Chronic BPH with LUTs, sx are mild and stable..No dysuria, No hematuria since discharged from [facility]..Nocturia x 1-2, depending on fluid intake..ED is mild.. No PSA. [id number] Work Phone: 10-07-2022 Miscellaneous Notes Patient has been identified by name and date of : Ye Patient phones for refill(s): Requested Prescriptions Pending Prescriptions Disp Refills atorvastatin (LIPITOR) 40 mg tablet 90 tablet 1 Sig: Take 1 tablet by mouth daily at bedtime. For cholesterol. Date of last office visit in primary care: 06/27/22 Next appointment 11/05/22 Please advise. Thank you. Nuha Perez LPN documented in this encounter [facility] 10-07-2022 Miscellaneous Notes Patient has been identified by name and date of : Yes Requested Prescriptions Pending Prescriptions Disp Refills PARoxetine (PAXIL) 40 mg tablet 90 tablet 3 Sig: Take 1 tablet by mouth once daily. PAXTON 08/28/22 RX INSTRUCTIONS: Patient aware RX will be sent to pharmacy. No need to notify patient. Tiffanie Sanchez Ma documented in this encounter [facility] 08-28-2022 History of Presen t illness Narrative Audio only was used for evaluation of this patient. Location of patient: [place] Patient was offered a virtual/telemedicine appointment in lieu of an office visit due to recommendations to reduce patient exposure to COVID-19. Patient is aware of limitations of performing the visit without a face to face visit in the office setting and agrees. 10:43 AM 51 year old male with c/o flu sx which started 08/23/2022 with cold sx. Was feeling better around Thursday, want to work. No fever. + headache, blowing yellow mucus from nose, mildly tender over sinuses, sore throat, ears hurting. Has some tightness in chest. Diarrhea: started x 2 days, at most 5 stools, watery. Vomiting: None. No lightheadedness or syncopal sx. and boys are all sick. came in to , strep negative. Placed on augmentin and prednisone. HISTORIES FAMILY HISTORY Problem Relation Age of Onset Heart Father of HEART ATTACK AT AGE 45 Heart Mother no blockages , hyperlipidemia Breast Cancer Mother Diabetes Maternal Grandmother Breast Cancer Paternal Grandfather Hypertension Mother around age 60 PAST MEDICAL HISTORY Diagnosis Date Elevated white blood cell count has been reviewed by hematology. will follow periodically Fam hx-cardiovas dis NEC n/a father, of [place] at 45 Hypothyroid Other and unspecified hyperlipidemia Sep 14 (dx'd in hospital for atypical CP) Overweight(278.02) Sleep apnea Tobacco use disorder complicating , childbirth, or the puerperium, unspecified as to episode of care or not applicable 1989 Unspecified essential hypertension PAST SURGICAL HISTORY Procedure Laterality Date EXCISION OF BENIGN LESION, COMPLICATED 2004 Lipoma, abdominal wall, [facility] TONSILLECTOMY PRIMARY/SECONDARY <AGE 12 age 4+/- Tonsillectomy Social History Tobacco Use Smoking status: Every Day Packs/day: 1.00 Years: 17.00 Pack years: 17.00 Types: Cigarettes Smokeless tobacco: Never Tobacco comments: 06/27/2022 5 cigs/day Vaping Use Vaping Use: Never used Substance Use Topics Alcohol use: Yes Comment: occasionally (once every 2-3) Drug use: No ACTIVE PROBLEM LIST Hyperlipidemia [facility] Hx-Cardiovas Dis NEC Overweight Tobacco Use Disorder Complicating , Childbirth, Or The Puerperium, Unspecified As to Episode of Care Or Not Applicable Hypothyroidism Essential Hypertension, Benign Leukocytosis Cervicalgia Lumbago 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 For cholesterol. 90 tablet 1 nystatin-triamcinolone (MYCOLOG) ointment Apply sparingly to groin and penile rash twice daily for irritation/infection up to 2 weeks and then take 1 week off. 30 g 0 amLODIPine (NORVASC) 10 mg tablet Take 1 tablet by mouth once daily. 90 tablet 3 levothyroxine (SYNTHROID) 125 mcg tablet Take 1 tablet by mouth once daily. 90 tablet 3 metoprolol succinate ER (TOPROL XL) 50 mg 24 hr tablet Take 1 tablet by mouth once daily. 90 tablet 3 metFORMIN ER (GLUCOPHAGE XR) 500 mg 24 hr tablet Take 2 tablets by mouth twice daily. 360 tablet 3 PARoxetine (PAXIL) 40 mg tablet Take 1 tablet by mouth once daily. 90 tablet 3 Lancets lancets Test blood sugar(s) 1 times daily. Dx: Type 2 DM - Controlled E11.9 Insulin: No 100 Each 11 blood sugar diagnostic (BLOOD GLUCOSE TEST) test strip Test blood sugar(s) 1 times daily. Dx: Type 2 DM - Controlled E11.9 Insulin: No 50 Strip 11 nystatin-triamcinolone (MYCOLOG) ointment Apply sparingly to perineum twice daily for irritation/infection. 30 g 0 albuterol HFA (VENTOLIN HFA) 90 mcg/actuation inhaler Inhale 2 Puffs as instructed every 4 hours as needed for Wheezing/Shortness of Breath. (Patient not taking: Reported on 06/27/2022) 6.7 g 0 COMPOUNDED PRESCRIPTION Initiate BiPAP @ 22/16 cm of water with humidification mask (per patient preference) optional chin strap (if indicated) and lifetime supplies DX: JOSIAH 327.23 1 Device 0 No current facility-administered medications for this visit. DILATED RETINAL EXAM Never done COLORECTAL CANCER SCREENING Never done HBA1C due on 03/10/2022 SHINGRIX VACCINE(2 of 2) due on 08/22/2022 EXAM: There were no vitals taken for this visit. Pleasant adult man in no acute distress. Alert and oriented all spheres. Normal affect and cognition. Speech normal. No deficits to learning or comprehension. Speaking in full sentences easily. Sounds nasally congested, dry coughing intermittently through visit. No pain on tapping sinuses or check lymph nodes. ASSESSMENT/PLAN: 1. Acute upper respiratory infection - ICD9: 465.9, ICD10: J06.9 - Discussed viral etiology and rationale for treatment. - Symptomatic treatment with prn analgesia - Supportive care with fluids and rest Need to establish if influenza prior to rx any ATB. - COVID WITH FLUA+B, ROUTINE 10:54 AM 9 minute call See orders and/or patient instructions. Patient ( or Guardian) expressed understanding of instructions on review. Nadege Christine PA-C documented in this encounter [facility] 07-08-2022 Miscellaneous Notes Please advise blood sugar was 74- nondiabetic range but hgba1c was set ahead for 3 months by accident. I need the hgba1c if he could stop levar n get it done- my apologies. Non-fasting is fine. Get Medical Advice on 07/07/22 HGB A1C ThanksMac PA-C documented in this encounter [facility] 06-27-2022 Instructions Nadege Christine PA-C - 06/27/2022 10:35 AM EDT Use Mycolog cream twice a day as directed for 2 weeks or until burning and itching improve, then swith to Lotrimen cream twice a day as directed (over the counter) until every trace of skin rash or peeling is gone. documented in this encounter [facility] 06-27-2022 History of Presen t illness Narrative 51 year old male with c/o yearly physical and problem review. Current concerns: none HTN: Current meds: Amlopdipine 10mg daily Metoprolol succinate ER 1 tablet daily Patient is compliant with meds Yes Monitors bp at home: No. If yes, readings: Denies side effects: No. Chest pain: No. Dyspnea: No. Edema: No. Palpitations: No. Syncope: No. Headache: No. Dizziness: No. Last 3 Encounter BP Readings: Date: BP: 01/26/2022 156/95 12/09/2021 160/96 12/03/2021 148/84[BP meds not taken; currently out. Needs to p/u from [facility][ Last 2 Encounter Wt Readings: Date: Wt: 01/26/2022 127 kg (280 lb) 12/09/2021 131.1 kg (289 lb) Hyperlipidemia: Current medication Atorvastatin 20mg daily HS Taking medication consistently Yes Observing low cholesterol high fiber diet: No- eats a lot of red meat, lunch meat, eggs, ackerman, sausage Muscle aches No Stomach complaints/ diarrhea No Last 2 Lipids: Component Latest Ref Rng & Units 05/03/2019 03/22/2021 12/09/2021 Cholesterol, Total <200 mg/dL 248 (H) 150 Triglyceride <150 mg/dL 186 (H) 118 HDL Cholesterol >39 mg/dL 55 31 (L) LDL Cholesterol <100 mg/dL 156 (H) 95 Non HDL Cholesterol <130 mg/dL 193 (H) 119 Fasting Time hrs 2 12 VLDL Cholesterol <30 mg/dL 37 (H) 24 TC:HDL Ratio <5.10 4.51 4.84 LDL:HDL Ratio <2.54 2.84 (H) 3.06 (H) Total Cholesterol, Nonfasting <200 mg/dL 210 (H) Triglycerides, Nonfasting <150 mg/dL 229 (H) HDL Cholesterol, Nonfasting >39 mg/dL 37 (L) LDL Cholesterol, Nonfasting <100 mg/dL 127 (H) Non HDL Cholesterol, Nonfasting <130 mg/dL 173 (H) VLDL Cholesterol, Nonfasting <30 mg/dL 46 (H) Total Chol/HDL Ratio, Nonfasting <5.10 mg/dL 5.68 (H) LDL/HDL Ratio, Nonfasting <2.54 mg/dL 3.43 (H) Diabetes Mellitus Type 2: Current medications: Metformin ER 500 mg 2 tablets twice daily with meals Taking medication as directed consistently? Yes Any side effects: Yes. Diarrhea frequently Medical Issues / Complications: hypertension and hyperlipidemia Checking blood sugars at home? No. Watching diet? No Physical Activity: Regular Hypoglycemic spells? No Any visual disturbance? No Chest pain? No New numbness, tingling or loss of sensation? No Any recent foot problems, sores or rashes? Yes, rash in groin and on penis, erickson terribly Any recent or sudden weight loss? No Change in urination? No. If yes: 2-3 times a night Any recent illness? No Last eye exam: up to date. Last foot exam: due. HBA1C: Hemoglobin A1C (%) Date Value 12/09/2021 8.9 03/22/2021 7.7 06/15/2019 6.5 ) CMP: Glucose 142 12/09/2021 BUN 14 12/09/2021 Creatinine 0.78 12/09/2021 Sodium 135 12/09/2021 Potassium 4.2 12/09/2021 Chloride 98 12/09/2021 CO2 25 12/09/2021 Protein, Total 7.1 12/09/2021 Albumin 4.4 12/09/2021 Calcium 9.1 12/09/2021 Alkaline Phosphatase 95 12/09/2021 Bilirubin, Total 0.4 12/09/2021 AST 18 12/09/2021 ALT 28 12/09/2021 Last 2 Encounter Wt Readings: Date: Wt: 01/26/2022 127 kg (280 lb) 12/09/2021 131.1 kg (289 lb) Hypothyroidism Current medication: Levothyroxine 125mcg Taking as directed on an empty stomach? No. Thyroid pain: No. Mass effect: No. Change in energy level/ fatigue? As above, not really a change. Sleep disturbance ?No. Temperature Intolerance: cold no, hot all the time . Change in bowel habits? Diarrhea - thinks r/t metforimin. If yes: Weight changes?9lb loss over 6 months. Change in hair or skin? No. If yes: Other symptoms: Last 2 Encounter Wt Readings: Date: Wt: 01/26/2022 127 kg (280 lb) 12/09/2021 131.1 kg (289 lb) Last thyroid labs: TSH Date Value 12/09/2021 34.200 mIU/L 03/22/2021 2.770 uU/mL 05/03/2019 1.110 uU/mL ) JOSIAH Central Apnea Bipap at 22/16 cmH2O with humidification Situatioinal stress Current meds: Paroxetine 40 mg daily Change in medication No. Currently in counseling? No. Any Medication side effects? No. Sleep disturbance? No. Loss of interest in usual pleasurable activities?No. Sense of guilt, shame, low self esteem?No. Energy: as above Trouble with concentration? No. Changes in appetite? No. Changes in weight? No Psychomotor retardation: No Suicidal thoughts: No Racing thoughts? No. Interpersonal/ family conflicts? Improving from last several months. Irritability? No. REVIEW OF SYMPTOMS: - General: denies fatigue, unusual weight loss or gain, fevers, chills. Energy Level: sometimes really drained, others feels good. Exercise none. Sleep: hours: 8h, up three times to urinate Diet: not really watching Tobacco use: 5 cig a day Caffeine use: 1 can Pepsi. ETOH use: none. Marijuana use: none. Illicit drug use: none. - Eyes: denies change in vision, glaucoma, cataracts. Distance glasses/contacts. Last eye exam: 1 year. EENT: denies recurrent sinus infection, unusual nasal drainage, hoarsemess, sore throat, or recurrent sore in mouth or tongue. - Cardiovascular: See above - Respiratory: see above - GI: denies difficulty swallowing, nausea, vomiting, change in appetite. No change in bowel habits. Denies constipation, diarrhea, rectal bleeding or hemorrhoids, incontinence. No history of GERD, PUD, jaundice/hepatitis, GB disease, diverticulosis, colorectal cancer, hernias. - Kidney/Bladder: Denies frequency, burning. Nocturia1-2, incontinence none. No history of kidney stones, recurrent UTI or kidney infection. - Skin: denies unusual rashes. No history of skin cancer, bleeding/changing moles, or unusual skin lesions. - Neurologic: Denies recurrent MOORE, change in vision, hearing or smell, tremors, unusual weakness, loss of sensation, or difficulty with balance or gait. No history of epilepsy/convulsions, migraine, head/spinal injuries, or stroke/TIA. - Psychiatric: see above - Endocrine: see above Hematologic: denies unusual bleeding, bruising, or history of anemia or blood transfusion. Denies hx blood clots. - Infections: denies risk factors for HIV, hepatitis or history of unusual infection. Immunizations are up to date. - Musculoskeletal: chronic back pain, mild currently, hx DDD. 07/04/2015 MRI new L1-2 small disc sequestration causing mild canal stenosis, new small central disc extrusion L2-3 with mild canal stenosis. Chronic neck pain: 05/18/2015 MRI cervical: disc osteophyte complex C4/5 flattening overlying cord w/o signal abnormality, moderate left sided neural foraminal narrowing related to osteophyte complex and facet hypertrophy. Disc extrusion C6/7 with mild right sided neural foraminal narrowing. Otherwise denies unusual stiffness, muscles aches, joint pain, or swelling. Denies recurrent sprain or disruption of joints, debilitating arthritis, gout, or other musculoskeletal disease. - HISTORIES FAMILY HISTORY Problem Relation Age of Onset Heart Father of HEART ATTACK AT AGE 45 Heart Mother no blockages , hyperlipidemia Breast Cancer Mother Diabetes Maternal Grandmother Breast Cancer Paternal Grandfather Hypertension Mother around age 60 PAST MEDICAL HISTORY Diagnosis Date Elevated white blood cell count has been reviewed by hematology. will follow periodically Fam hx-cardiovas dis NEC n/a father, of [place] at 45 Hypothyroid Other and unspecified hyperlipidemia Sep 14 (dx'd in hospital for atypical CP) Overweight(278.02) Sleep apnea Tobacco use disorder complicating , childbirth, or the puerperium, unspecified as to episode of care or not applicable 1989 Unspecified essential hypertension PAST SURGICAL HISTORY Procedure Laterality Date EXCISION OF BENIGN LESION, COMPLICATED 2003 Lipoma, abdominal wall, [facility] TONSILLECTOMY PRIMARY/SECONDARY <AGE 12 age 4+/- Tonsillectomy Social History Tobacco Use Smoking status: Every Day Packs/day: 1.00 Years: 17.00 Pack years: 17.00 Types: Cigarettes Smokeless tobacco: Never Vaping Use Vaping Use: Never used Substance Use Topics Alcohol use: Yes Comment: occasionally (once every 2-3) Drug use: No ACTIVE PROBLEM LIST Hyperlipidemia [facility] Hx-Cardiovas Dis NEC Overweight Tobacco Use Disorder Complicating , Childbirth, Or The Puerperium, Unspecified As to Episode of Care Or Not Applicable Hypothyroidism Essential Hypertension, Benign Leukocytosis Cervicalgia Lumbago 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 90 tablet 3 atorvastatin (LIPITOR) 20 mg tablet Take 1 tablet by mouth daily at bedtime. For cholesterol. 90 tablet 3 levothyroxine (SYNTHROID) 125 mcg tablet Take 1 tablet by mouth once daily. 90 tablet 3 metoprolol succinate ER (TOPROL XL) 50 mg 24 hr tablet Take 1 tablet by mouth once daily. 90 tablet 3 metFORMIN ER (GLUCOPHAGE XR) 500 mg 24 hr tablet Take 2 tablets by mouth twice daily. 360 tablet 3 PARoxetine (PAXIL) 40 mg tablet Take 1 tablet by mouth once daily. 90 tablet 3 Lancets lancets Test blood sugar(s) 1 times daily. Dx: Type 2 DM - Controlled E11.9 Insulin: No 100 Each 11 blood sugar diagnostic (BLOOD GLUCOSE TEST) test strip Test blood sugar(s) 1 times daily. Dx: Type 2 DM - Controlled E11.9 Insulin: No 50 Strip 11 nystatin-triamcinolone (MYCOLOG) ointment Apply sparingly to perineum twice daily for irritation/infection. 30 g 0 albuterol HFA (VENTOLIN HFA) 90 mcg/actuation inhaler Inhale 2 Puffs as instructed every 4 hours as needed for Wheezing/Shortness of Breath. 6.7 g 0 COMPOUNDED PRESCRIPTION Initiate BiPAP @ 22/16 cm of water with humidification mask (per patient preference) optional chin strap (if indicated) and lifetime supplies DX: JOSIAH 327.23 1 Device 0 No current facility-administered medications for this visit. HEPATITIS B(1 of 3 - 3-dose series) Never done COVID-19 VACCINE(1) Never done DILATED RETINAL EXAM Never done DIABETIC FOOT EXAM Never done HEPATITIS C SCREENING Never done HIV SCREENING Never done BP CONTROLLED (<130/80) Never done COLORECTAL CANCER SCREENING Never done SHINGRIX VACCINE(1 of 2) Never done DEPRESSION ASSESSMENT Never done DTAP,TDAP,TD(2 - Td or Tdap) due on 09/19/2021 HBA1C due on 03/10/2022 URINE ALBUMIN:CREATININE RATIO due on 04/04/2022 INFLUENZA(1) due on 05/08/2022 PNEUMOCOCCAL(2 - PCV) due on 06/10/2022 EXAM: BP 128/70 Pulse 74 Resp 18 Ht 166.4 cm (5' 5.5 ) Wt 128.4 kg (283 lb) SpO2 94% BMI 46.38 kg/m Pleasant morbidly obese adult male in no acute distress. Alert and oriented all spheres. Normal affect and cognition. Speech normal. No deficits to learning or comprehension. Skin warm, dry, pink to lips and nailbeds. Normal turgor. Respirations regular and unlabored. HEENT: NCAT. No scleral icterus or conjunctival injection. TM's clear. Nose and oropharynx free from injection or lesion. Multiple missing teeth, right tooth #31 broken at gumline, tooth #9 severe caries, gum recession. Oral membranes moist and pink. No cervical lymph nodes. Thyroid non-tender, no masses, or enlargement. Carotids pulses 2+/4+ without bruits. No JVD with HOB at 30 degrees. Chest is normal shape. Lungs are clear to all seymour with good air exchange through out. HRRR without murmur or gallop. No lifts, heaves, or rubs. Abdomen: active bowel sounds throughout, soft, nontender, no masses or organomegaly. No CVAT. Penis normal male, circumcised. Testicles descended bilaterally. No masses or nodules. No hernias. Severe excoriation in groin with fissures over penile shaft and scrotum. No inguinal nodes. No perianal issues. Extrem: no clubbing or cyanosis. Edema: none. Extremities are warm and pink with prompt capillary refill. Feet:Shoes and socks removed, Are you having foot pain no, No deformities, ulcers, calluses, normal distal pulses, and sensitive to 10 gm monofilament. Heavy calluses heels, plantar for foot, great toes, pronation right foot related to lax ankle on weight bearing, valgus deviation distal phalanx right great toe . ASSESSMENT/PLAN: 1. Wellness examination - ICD9: V70.0, ICD10: Z00.00 (primary diagnosis) - Counseled on healthy diet and regular exercise - Discussed need for and benefit of weight loss. BMI 46.38 kg/(m^2) - Colorectal cancer screening recommended - agrees to Cologuard - Risks/benefits of prostate cancer screening discussed. screening PSA ordered - Lung cancer screening recommended - Smoking cessation encouraged; discussed risks to health and quitting strategies. Patient is contemplative - Depression screening tool completed and reviewed with patient. Based on score and interview, patient is already diagnosed with depression and recommended no further intervention at this time. - Follow up for annual exam in one year - DEPRESSION SCREENING/ASSESSMENT 2. Essential hypertension, benign - ICD9: 401.1, ICD10: I10 - good control - Continue current medication(s) - Encouraged dietary sodium restriction/DASH diet - Recommended regular aerobic exercise. - Recommend home blood pressure monitoring, to bring results in on next visit - Discussed need and benefit for weight loss. - Goal of BP <130/80 3. Hyperlipidemia, unspecified hyperlipidemia type - ICD9: 272.4, ICD10: E78.5 - poor control - Increase dose of atorvastatin (Lipitor) 40 mg 4. 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 - LDL goal of <100 - anticipate addition semaglutide pending lab results. Will d/c metformin due diarrhea 5. Central sleep apnea - ICD9: 780.57, ICD10: G47.31 compliant - CPAP DEVICE, WITH HUMIDIFIER 6. JOSIAH (obstructive sleep apnea) - ICD9: 327.23, ICD10: G47.33 compliant - CPAP DEVICE, WITH HUMIDIFIER 7. Need for influenza vaccination - ICD9: V04.81, ICD10: Z23 - INFLUENZA VACCINE QUADRIVALENT 6 MO - 64 YRS IM 8. Screening for colon cancer - ICD9: V76.51, ICD10: Z12.11 - COLOGUARD 9. Screening for prostate cancer - ICD9: V76.44, ICD10: Z12.5 - Risks/benefits of prostate cancer screening discussed. screening PSA ordered - PSA/PROSTSPECAG SCRN 10. Need for vaccination - ICD9: V05.9, ICD10: Z23 - TDAP VACCINE AGE 7+ IM - ZOSTER VACC RECOMBINANT,IM - PNEUMOCOCCAL IMMUNIZATION PPSV 23 11. DDD (degenerative disc disease), lumbar - ICD9: 722.52, ICD10: M51.36 Stable mild pain, manages without medication. Does stretch as instructed. 12. Spinal stenosis of lumbar region without neurogenic claudication - ICD9: 724.02, ICD10: M48.061 13. Cervical stenosis of spine - ICD9: 723.0, ICD10: M48.02 Chronic neck and shoulder pain non-limiting, manages without medicication F/u [address] labs after we see results from today M Farhat Christine PA-C documented in this encounter [facility] 06-18-2022 Miscellaneous Notes Faxed to [employer]. Kylie Tran written Reggie King is a patient of Ginger Price MD today spouse, Liliana called to request orders are placed for C-Pap supplies; he needs chin strap and mask. She will find out where the order needs to be faxed to and call back. Patient has been identified by name and birthdate. Duration of symptoms: N/A Person calling: Liliana Call patient at: on cell [phone] (home) [phone] (work) [phone] (cell) Was an appointment scheduled: No Closing statement: Results or non-symptom based questions: Thank you for calling [facility], your call will be returned within the next business day. Edna Saucedo Pss documented in this encounter [facility] 06-17-2022 History of Presen t illness Narrative NO show letter mailed to pt. Vanda Contreras Ma No show. Mac Christine PA-C documented in this encounter [facility] 06-12-2022 Miscellaneous Notes Patient has been identified by name and date of : Yes Requested Prescriptions Pending Prescriptions Disp Refills amLODIPine (NORVASC) 10 mg tablet 90 tablet 3 Sig: Take 1 tablet by mouth once daily. atorvastatin (LIPITOR) 20 mg tablet 90 tablet 3 Sig: Take 1 tablet by mouth daily at bedtime. For cholesterol. levothyroxine (SYNTHROID) 125 mcg tablet 90 tablet 3 Sig: Take 1 tablet by mouth once daily. metoprolol succinate ER (TOPROL XL) 50 mg 24 hr tablet 90 tablet 3 Sig: Take 1 tablet by mouth once daily. metFORMIN ER (GLUCOPHAGE XR) 500 mg 24 hr tablet 360 tablet 3 Sig: Take 2 tablets by mouth twice daily. PARoxetine (PAXIL) 40 mg tablet 90 tablet 3 Sig: Take 1 tablet by mouth once daily. RX INSTRUCTIONS: Requested 90 days. Needs medication today. Patient aware RX will be sent to pharmacy. No need to notify patient. Edna Saucedo Pss documented in this encounter [facility] 01-27-2022 Miscellaneous Notes called in and states she booked apt with pcp because he was to [facility] yesterday 01-26-22 and was to be seen today. Dr. Price reviewed ER report and is advising pt contact the place that he was referred to by [facility] because he is going to need referred to ortho and he would be much better served by them. I notified and apt in office today has been cancelled. Danielle Mann LPN documented in this encounter [facility] 2021 Miscellaneous Notes notified of letter ready at med recs calling to check status. Please let her know when ready for brass pickler. Hoping to brass pickler today. Call [phone] Danielle Mann LPN Placed on desk for signature Printed. See pt message and advise. Vanda Contreras Ma documented in this encounter [facility] 12-15-2021 History of Presen t illness Narrative Extended time required for all activities d/t increased pain /10 and decreased ROM of LUE/shoulder.Patient was able to complete today's treatment with some difficulty. [facility] Work Phone: 12-10-2021 Miscellaneous Notes Patient was notified and verbalized understanding Jyoti Somers Ma Ok. That could be part of what we are seeing. I think it is not a bad idea to increase his metformin anyway. Lets bump it to 2 pills bid. Call sugars in two weeks. Work on not missing any doses and recheck tsh and lipid in one month. If still off, will need meds adjusted. TC to pt, notified of provider response. Pt states he is taking his medications, but did miss several doses of all meds about a week or so ago. Ronnie Barrow LPN His sugars, cholesterol and thyroid are all up significantly. Is he taking his medications? Missed any doses? documented in this encounter [facility] 12-09-2021 History of Presen t illness Narrative Patient presents with: Pain: patient is here for follow up on right knee HPI: Patient presents today for office visit for ER follow up. See below. Was placed on crutches. Ice and rest. Was referred to ortho. Had seen Mac Christine last week for his shoulder. Temporarily improved after omt. Xray was negative. No trauma. He does not remember any trauma or remember kneeling on concrete. No hx of gout. Has issues straightening and pain. No redness or warmth. Was placed on toradol. Is going to see ortho in [place]. Has to call to get time. Needs work excuse. Over due for labs. bp has been up when he saw Mac last week and is up again today. Was up in August as well. No chest pain or shortness of breath. No checking sugars at home. See er note from 12/07: Chief complaint knee pain History of present illness a 50-year-old male is here with right knee pain that started couple days ago he has pretty significant swelling suprapatellar. Cannot recall any injury or any recent systemic symptoms of fever chills nausea vomiting diarrhea cough congestion. He has had no prior history of clot or history of gout. 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 Is here with blood pressure 1 4475 pulse 80 respiratory rate 18 pulse ox 94% temp 97 6 Laboratory & Radiographic Imaging (if done): No results found for this visit on 12/07/21. XR Knee Right 2 Views (Standard) Non-public Result 1. No acute traumatic osseous pathology 2. Possible knee effusion assessment limited given patient positioning 3. Anterior knee subcutaneous edema, no opaque foreign body or gas collection MEDICATIONS: Current Outpatient Medications Medication Sig amLODIPine (NORVASC) 10 mg tablet Take 1 tablet by mouth once daily. metoprolol succinate ER (TOPROL XL) 50 mg 24 hr tablet Take 1 tablet by mouth once daily. levothyroxine (SYNTHROID) 125 mcg tablet Take 1 tablet by mouth once daily. atorvastatin (LIPITOR) 20 mg tablet Take 1 tablet by mouth daily at bedtime. For cholesterol. metFORMIN ER (GLUCOPHAGE XR) 500 mg 24 hr tablet Take 2 tablets by mouth once daily. PARoxetine (PAXIL) 40 mg tablet Take 1 tablet by mouth once daily. Lancets lancets Test blood sugar(s) 1 times daily. Dx: Type 2 DM - Controlled E11.9 Insulin: No blood sugar diagnostic (BLOOD GLUCOSE TEST) test strip Test blood sugar(s) 1 times daily. Dx: Type 2 DM - Controlled E11.9 Insulin: No nystatin-triamcinolone (MYCOLOG) ointment Apply sparingly to perineum twice daily for irritation/infection. albuterol HFA (VENTOLIN HFA) 90 mcg/actuation inhaler Inhale 2 Puffs as instructed every 4 hours as needed for Wheezing/Shortness of Breath. COMPOUNDED PRESCRIPTION Initiate BiPAP @ 22/16 cm of water with humidification mask (per patient preference) optional chin strap (if indicated) and lifetime supplies DX: JOSIAH 327.23 No current facility-administered medications for this visit. ALLERGIES: ALLERGIES No Known Allergies PAST MEDICAL HISTORY Diagnosis Date Elevated white blood cell count has been reviewed by hematology. will follow periodically Fam hx-cardiovas dis NEC n/a father, of [place] at 45 Hypothyroid Other and unspecified hyperlipidemia Sep 14 (dx'd in hospital for atypical CP) Overweight(278.02) Sleep apnea Tobacco use disorder complicating , childbirth, or the puerperium, unspecified as to episode of care or not applicable 1989 Unspecified essential hypertension PAST SURGICAL HISTORY Procedure Laterality Date EXCISION OF BENIGN LESION, COMPLICATED 2003 Lipoma, abdominal wall, [facility] TONSILLECTOMY PRIMARY/SECONDARY <AGE 12 age 4+/- Tonsillectomy FAMILY HISTORY Problem Relation Age of Onset Heart Father of HEART ATTACK AT AGE 45 Heart Mother no blockages , hyperlipidemia Breast Cancer Mother Diabetes Maternal Grandmother Breast Cancer Paternal Grandfather Hypertension Mother around age 60 Social History Tobacco Use Smoking status: Current Every Day Smoker Packs/day: 1.00 Years: 17.00 Pack years: 17.00 Types: Cigarettes Smokeless tobacco: Never Used Substance Use Topics Alcohol use: Yes Comment: occasionally (once every 2-3) Drug use: No Reviewed current medications, allergies, past medical history, surgical history, family history and social history today. REVIEW OF SYSTEMS All other reviewed and negative other than HPI. VITALS: BP 160/96 (BP Site: Right Arm, BP Position: Sitting, BP Cuff Size: Large Adult) Pulse 76 Resp 16 Wt 131.1 kg (289 lb) BMI 43.94 kg/m Last 4 Encounter Wt Readings: Date: Wt: 12/03/2021 132.5 kg (292 lb 3.2 oz) 08/09/2021 129.3 kg (285 lb) 06/10/2021 125.6 kg (277 lb) 05/28/2021 125.2 kg (276 lb) PHYSICAL EXAMINATION: General appearance: Well appearing, alert, in no acute distress, well-hydrated, well nourished. Skin: Skin color, texture, turgor normal, no suspicious rashes or lesions Extremities: No deformities Redness: No. Warmth: No. Crepitus: No. Effusion: Yes. Joint line tenderness: No. Lateral tenderness: No. Medial tenderness: No. Drawer sign negative: No. Medial or lateral laxity: No. Samantha's sign: No. Peripheral pulses: Normal ASSESSMENT/PLAN: 1. Prepatellar bursitis of right knee - ICD9: 726.65, ICD10: M70.41 (primary diagnosis) - off work slip given. Elevate, ice. See ortho. Red flags for re-assessment reviewed with patient in detail. - SED RATE WESTERGREN - URIC ACID BLOOD 2. Hypothyroidism, unspecified type - ICD9: 244.9, ICD10: E03.9 - Instructed patient on importance of taking on an empty stomach either first thing in the morning or at bedtime. - TSH BLD 3. Controlled type 2 diabetes mellitus without complication, without long-term current use of insulin (HCC) - ICD9: 250.00, ICD10: E11.9 Controlled. - Get labs. - CBC + DIFF - COMP METABOLIC PANEL - HGB A1C 4. Hyperlipidemia, unspecified hyperlipidemia type - ICD9: 272.4, ICD10: E78.5 - LIPID PANEL, NONFASTING 5. Essential hypertension, benign - ICD9: 401.1, ICD10: I10 - suboptimal control - Follow up in 1 month for BP recheck. Ginger Price RTO in three months and prn. documented in this encounter [facility] 12-09-2021 Miscellaneous Notes Pt is already scheduled documented in this encounter [facility] 11-29-2021 Miscellaneous Notes Patient has been identified by name and date of : Yes Pending Prescriptions Disp Refills POTASSIUM CHLORIDE ER 10 MEQ TABLET,EXTENDED RELEASE 30 tablet 1 Sig: Take 1 tablet by mouth daily with breakfast. SHAILESH: No AMLODIPINE 10 MG TABLET 90 tablet 0 Sig: Take 1 tablet by mouth once daily. SHAILESH: No METOPROLOL SUCCINATE ER 50 MG TABLET,EXTENDED RELEASE 24 HR 90 tablet 0 Sig: Take 1 tablet by mouth once daily. SHAILESH: No LEVOTHYROXINE 125 MCG TABLET 90 tablet 0 Sig: Take 1 tablet by mouth once daily. SHAILESH: No ATORVASTATIN 20 MG TABLET 90 tablet 0 Sig: Take 1 tablet by mouth daily at bedtime. For cholesterol. SHAILESH: No METFORMIN ER 500 MG TABLET,EXTENDED RELEASE 24 HR 60 tablet 2 Sig: Take 2 tablets by mouth once daily. SHAILESH: No PAROXETINE 40 MG TABLET 30 tablet 5 Sig: Take 1 tablet by mouth once daily. SHAILESH: No RX INSTRUCTIONS: Patient aware RX will be sent to pharmacy. No need to notify patient. Cynthia Watson documented in this encounter [facility] documented as of this encounter (statuses as of 11/29/2021) [facility] History of Past illness Narrative* Problem Noted Date Resolved Date Frequency 06/13/2015 04/23/2018 Urgency of urination 06/13/2015 04/23/2018 Concussion without loss of consciousness 015 04/23/2018 Backache, unspecified 11/11/2012 12/14/2013 Sprain of lumbar region 10/18/2012 12/15/19 14 Thoracic or Lumbosacral Neuritis or Radiculitis, Unspecified 02/23/2009 12/14/2013 Overview: Dr. Hollins -- epidurals x 3 Summer 2008 Routine General Medical Exam ination at a Health Care Facility 01/02/2009 12/14/2013 Overview: 09/28/06 Pain in joint, pelvic region and thigh 8 01/02/2009 Sprain of lumbar region 06/27/2008 01/03/20 09 Pain in joint, upper arm 06/27/2008 008 Pain in joint, shoulder region 06/27/2008 0 01/02/2009 Other affections of shoulder region, not elsewhere classified 01/27/2007 01/02/2009 documented as of this encounter (statuses as of 12/09/2021) [facility] History of Past illness Narrative* Problem Noted Date Resolved Date Frequency 06/13/2015 04/23/2018 Urgency of urination 06/13/2015 04/23/2018 Concussion without loss of consciousness 015 04/23/2018 Backache, unspecified 11/11/2012 12/14/2013 Sprain of lumbar region 10/18/2012 12/15/19 14 Thoracic or Lumbosacral Neuritis or Radiculitis, Unspecified 02/23/2009 12/14/2013 Overview: Dr. Hollins -- epidurals x 3 Summer 2008 Routine General Medical Exam ination at a Health Care Facility 01/02/2009 12/14/2013 Overview: 09/28/06 Pain in joint, pelvic region and thigh 8 01/02/2009 Sprain of lumbar region 06/27/2008 01/03/20 09 Pain in joint, upper arm 06/27/2008 008 Pain in joint, shoulder region 06/27/2008 0 01/02/2009 Other affections of shoulder region, not elsewhere classified 01/27/2007 01/02/2009 documented as of this encounter (statuses as of 12/09/2021) [facility] History of Past illness Narrative* Problem Noted Date Resolved Date Frequency 06/13/2015 04/23/2018 Urgency of urination 06/13/2015 04/23/2018 Concussion without loss of consciousness 015 04/23/2018 Backache, unspecified 11/11/2012 12/14/2013 Sprain of lumbar region 10/18/2012 12/15/19 14 Thoracic or Lumbosacral Neuritis or Radiculitis, Unspecified 02/23/2009 12/14/2013 Overview: Dr. Hollins -- epidurals x summer Routine General Medical Exam ination at a Health Care Facility 01/02/2009 12/14/2013 Overview: 09/28/06 Pain in joint, pelvic region and thigh 8 01/02/2009 Sprain of lumbar region 06/27/2008 01/03/20 09 Pain in joint, upper arm 06/27/2008 008 Pain in joint, shoulder region 06/27/2008 0 01/02/2009 Other affections of shoulder region, not elsewhere classified 01/27/2007 01/02/2009 documented as of this encounter (statuses as of 12/10/2021) [facility] History of Past illness Narrative* Problem Noted Date Resolved Date Frequency 06/13/2015 04/23/2018 Urgency of urination 06/13/2015 04/23/2018 Concussion without loss of consciousness 015 04/23/2018 Backache, unspecified 11/11/2012 12/14/2013 Sprain of lumbar region 10/18/2012 12/15/19 14 Thoracic or Lumbosacral Neuritis or Radiculitis, Unspecified 02/23/2009 12/14/2013 Overview: Dr. Hollins -- epidurals x summer Routine General Medical Exam ination at a Health Care Facility 01/02/2009 12/14/2013 Overview: 09/28/06 Pain in joint, pelvic region and thigh 8 01/02/2009 Sprain of lumbar region 06/27/2008 01/03/20 09 Pain in joint, upper arm 06/27/2008 008 Pain in joint, shoulder region 06/27/2008 0 01/02/2009 Other affections of shoulder region, not elsewhere classified 01/27/2007 01/02/2009 documented as of this encounter (statuses as of 2021) [facility] History of Past illness Narrative* Problem Noted Date Resolved Date Frequency 06/13/2015 04/23/2018 Urgency of urination 06/13/2015 04/23/2018 Concussion without loss of consciousness 015 04/23/2018 Backache, unspecified 11/11/2012 12/14/2013 Sprain of lumbar region 10/18/2012 12/15/19 14 Thoracic or Lumbosacral Neuritis or Radiculitis, Unspecified 02/23/2009 12/14/2013 Overview: Dr. Hollins -- epidurals x 3 Summer 2008 Routine General Medical Exam ination at a Health Care Facility 01/02/2009 12/14/2013 Overview: 09/28/06 Pain in joint, pelvic region and thigh 8 01/02/2009 Sprain of lumbar region 06/27/2008 01/03/20 09 Pain in joint, upper arm 06/27/2008 008 Pain in joint, shoulder region 06/27/2008 0 01/02/2009 Other affections of shoulder region, not elsewhere classified 01/27/2007 01/02/2009 documented as of this encounter (statuses as of 01/27/2022) [facility] History of Past illness Narrative* Problem Noted Date Resolved Date Frequency 06/13/2015 04/23/2018 Urgency of urination 06/13/2015 04/23/2018 Concussion without loss of consciousness 015 04/23/2018 Backache, unspecified 11/11/2012 12/14/2013 Sprain of lumbar region 10/18/2012 12/15/19 14 Thoracic or Lumbosacral Neuritis or Radiculitis, Unspecified 02/23/2009 12/14/2013 Overview: Dr. Hollins -- epidurals x 3 Summer 2008 Routine General Medical Exam ination at a Health Care Facility 01/02/2009 12/14/2013 Overview: 09/28/06 Pain in joint, pelvic region and thigh 8 01/02/2009 Sprain of lumbar region 06/27/2008 01/03/20 09 Pain in joint, upper arm 06/27/2008 008 Pain in joint, shoulder region 06/27/2008 0 01/02/2009 Other affections of shoulder region, not elsewhere classified 01/27/2007 01/02/2009 documented as of this encounter (statuses as of 03/15/2022) [facility] History of Past illness Narrative* Problem Noted Date Resolved Date Frequency 06/13/2015 04/23/2018 Urgency of urination 06/13/2015 04/23/2018 Concussion without loss of consciousness 015 04/23/2018 Backache, unspecified 11/11/2012 12/14/2013 Sprain of lumbar region 10/18/2012 12/15/19 14 Thoracic or Lumbosacral Neuritis or Radiculitis, Unspecified 02/23/2009 12/14/2013 Overview: Dr. Hollins -- epidurals x summer Routine General Medical Exam ination at a Health Care Facility 01/02/2009 12/14/2013 Overview: 09/28/06 Pain in joint, pelvic region and thigh 8 01/02/2009 Sprain of lumbar region 06/27/2008 01/03/20 09 Pain in joint, upper arm 06/27/2008 008 Pain in joint, shoulder region 06/27/2008 0 01/02/2009 Other affections of shoulder region, not elsewhere classified 01/27/2007 01/02/2009 documented as of this encounter (statuses as of 06/12/2022) [facility] History of Past illness Narrative* Problem Noted Date Resolved Date Frequency 06/13/2015 04/23/2018 Urgency of urination 06/13/2015 04/23/2018 Concussion without loss of consciousness 015 04/23/2018 Backache, unspecified 11/11/2012 12/14/2013 Sprain of lumbar region 10/18/2012 12/15/19 14 Thoracic or Lumbosacral Neuritis or Radiculitis, Unspecified 02/23/2009 12/14/2013 Overview: Dr. Hollins -- epidurals x summer Routine General Medical Exam ination at a Health Care Facility 01/02/2009 12/14/2013 Overview: 09/28/06 Pain in joint, pelvic region and thigh 8 01/02/2009 Sprain of lumbar region 06/27/2008 01/03/20 09 Pain in joint, upper arm 06/27/2008 008 Pain in joint, shoulder region 06/27/2008 0 01/02/2009 Other affections of shoulder region, not elsewhere classified 01/27/2007 01/02/2009 documented as of this encounter (statuses as of 06/17/2022) [facility] History of Past illness Narrative* Problem Noted Date Resolved Date Frequency 06/13/2015 04/23/2018 Urgency of urination 06/13/2015 04/23/2018 Concussion without loss of consciousness 015 04/23/2018 Backache, unspecified 11/11/2012 12/14/2013 Sprain of lumbar region 10/18/2012 12/15/19 14 Thoracic or Lumbosacral Neuritis or Radiculitis, Unspecified 02/23/2009 12/14/2013 Overview: Dr. Hollins -- epidurals x 3 Summer 2008 Routine General Medical Exam ination at a Health Care Facility 01/02/2009 12/14/2013 Overview: 09/28/06 Pain in joint, pelvic region and thigh 8 01/02/2009 Sprain of lumbar region 06/27/2008 01/03/20 09 Pain in joint, upper arm 06/27/2008 008 Pain in joint, shoulder region 06/27/2008 0 01/02/2009 Other affections of shoulder region, not elsewhere classified 01/27/2007 01/02/2009 documented as of this encounter (statuses as of 06/18/2022) [facility] History of Past illness Narrative* Problem Noted Date Resolved Date Frequency 06/13/2015 04/23/2018 Urgency of urination 06/13/2015 04/23/2018 Concussion without loss of consciousness 015 04/23/2018 Backache, unspecified 11/11/2012 12/14/2013 Sprain of lumbar region 10/18/2012 12/15/19 14 Thoracic or Lumbosacral Neuritis or Radiculitis, Unspecified 02/23/2009 12/14/2013 Overview: Dr. Hollins -- epidurals x summer Routine General Medical Exam ination at a Health Care Facility 01/02/2009 12/14/2013 Overview: 09/28/06 Pain in joint, pelvic region and thigh 8 01/02/2009 Sprain of lumbar region 06/27/2008 01/03/20 09 Pain in joint, upper arm 06/27/2008 008 Pain in joint, shoulder region 06/27/2008 0 01/02/2009 Other affections of shoulder region, not elsewhere classified 01/27/2007 01/02/2009 documented as of this encounter (statuses as of 06/28/2022) [facility] History of Past illness Narrative* Problem Noted Date Resolved Date Frequency 06/13/2015 04/23/2018 Urgency of urination 06/13/2015 04/23/2018 Concussion without loss of consciousness 015 04/23/2018 Backache, unspecified 11/11/2012 12/14/2013 Sprain of lumbar region 10/18/2012 12/15/19 14 Thoracic or Lumbosacral Neuritis or Radiculitis, Unspecified 02/23/2009 12/14/2013 Overview: Dr. Hollins -- epidurals x summer Routine General Medical Exam ination at a Health Care Facility 01/02/2009 12/14/2013 Overview: 09/28/06 Pain in joint, pelvic region and thigh 8 01/02/2009 Sprain of lumbar region 06/27/2008 01/03/20 09 Pain in joint, upper arm 06/27/2008 008 Pain in joint, shoulder region 06/27/2008 0 01/02/2009 Other affections of shoulder region, not elsewhere classified 01/27/2007 01/02/2009 documented as of this encounter (statuses as of 07/08/2022) [facility] History of Past illness Narrative* Problem Noted Date Resolved Date Frequency 06/13/2015 04/23/2018 Urgency of urination 06/13/2015 04/23/2018 Concussion without loss of consciousness 015 04/23/2018 Backache, unspecified 11/11/2012 12/14/2013 Sprain of lumbar region 10/18/2012 12/15/19 14 Thoracic or Lumbosacral Neuritis or Radiculitis, Unspecified 02/23/2009 12/14/2013 Overview: Dr. Hollins -- epidurals x 3 Summer 2008 Routine General Medical Exam ination at a Health Care Facility 01/02/2009 12/14/2013 Overview: 09/28/06 Pain in joint, pelvic region and thigh 8 01/02/2009 Sprain of lumbar region 06/27/2008 01/03/20 09 Pain in joint, upper arm 06/27/2008 008 Pain in joint, shoulder region 06/27/2008 0 01/02/2009 Other affections of shoulder region, not elsewhere classified 01/27/2007 01/02/2009 documented as of this encounter (statuses as of 08/29/2022) [facility] History of Past illness Narrative* Problem Noted Date Resolved Date Frequency 06/13/2015 04/23/2018 Urgency of urination 06/13/2015 04/23/2018 Concussion without loss of consciousness 015 04/23/2018 Backache, unspecified 11/11/2012 12/14/2013 Sprain of lumbar region 10/18/2012 12/15/19 14 Thoracic or Lumbosacral Neuritis or Radiculitis, Unspecified 02/23/2009 12/14/2013 Overview: Dr. Hollins -- epidurals x summer Routine General Medical Exam ination at a Health Care Facility 01/02/2009 12/14/2013 Overview: 09/28/06 Pain in joint, pelvic region and thigh 8 01/02/2009 Sprain of lumbar region 06/27/2008 01/03/20 09 Pain in joint, upper arm 06/27/2008 008 Pain in joint, shoulder region 06/27/2008 0 01/02/2009 Other affections of shoulder region, not elsewhere classified 01/27/2007 01/02/2009 documented as of this encounter (statuses as of 10/07/2022) [facility] History of Past illness Narrative* Problem Noted Date Resolved Date Frequency 06/13/2015 04/23/2018 Urgency of urination 06/13/2015 04/23/2018 Concussion without loss of consciousness 015 04/23/2018 Backache, unspecified 11/11/2012 12/14/2013 Sprain of lumbar region 10/18/2012 12/15/19 14 Thoracic or Lumbosacral Neuritis or Radiculitis, Unspecified 02/23/2009 12/14/2013 Overview: Dr. Hollins -- epidurals x summer Routine General Medical Exam ination at a Health Care Facility 01/02/2009 12/14/2013 Overview: 09/28/06 Pain in joint, pelvic region and thigh 8 01/02/2009 Sprain of lumbar region 06/27/2008 01/03/20 09 Pain in joint, upper arm 06/27/2008 008 Pain in joint, shoulder region 06/27/2008 0 01/02/2009 Other affections of shoulder region, not elsewhere classified 01/27/2007 01/02/2009 documented as of this encounter (statuses as of 10/08/2022) [facility] History of Past illness Narrative* Problem Noted Date Resolved Date Frequency 06/13/2015 04/23/2018 Urgency of urination 06/13/2015 04/23/2018 Concussion without loss of consciousness 015 04/23/2018 Backache, unspecified 11/11/2012 12/14/2013 Sprain of lumbar region 10/18/2012 12/15/19 14 Thoracic or Lumbosacral Neuritis or Radiculitis, Unspecified 02/23/2009 12/14/2013 Overview: Dr. Hollins -- epidurals x 3 Summer 2008 Routine General Medical Exam ination at a Health Care Facility 01/02/2009 12/14/2013 Overview: 09/28/06 Pain in joint, pelvic region and thigh 8 01/02/2009 Sprain of lumbar region 06/27/2008 01/03/20 09 Pain in joint, upper arm 06/27/2008 008 Pain in joint, shoulder region 06/27/2008 0 01/02/2009 Other affections of shoulder region, not elsewhere classified 01/27/2007 01/02/2009 documented as of this encounter (statuses as of 10/30/2022) [facility] History of Past illness Narrative* Problem Noted Date Resolved Date Frequency 06/13/2015 04/23/2018 Urgency of urination 06/13/2015 04/23/2018 Concussion without loss of consciousness 015 04/23/2018 Backache, unspecified 11/11/2012 12/14/2013 Sprain of lumbar region 10/18/2012 12/15/19 14 Thoracic or Lumbosacral Neuritis or Radiculitis, Unspecified 02/23/2009 12/14/2013 Overview: Dr. Hollins -- epidurals x 3 Summer 2008 Routine General Medical Exam ination at a Health Care Facility 01/02/2009 12/14/2013 Overview: 09/28/06 Pain in joint, pelvic region and thigh 8 01/02/2009 Sprain of lumbar region 06/27/2008 01/03/20 09 Pain in joint, upper arm 06/27/2008 008 Pain in joint, shoulder region 06/27/2008 0 01/02/2009 Other affections of shoulder region, not elsewhere classified 01/27/2007 01/02/2009 documented as of this encounter (statuses as of 11/08/2022) [facility] History of Past illness Narrative* Problem Noted Date Resolved Date Frequency 06/13/2015 04/23/2018 Urgency of urination 06/13/2015 04/23/2018 Concussion without loss of consciousness 015 04/23/2018 Backache, unspecified 11/11/2012 12/14/2013 Sprain of lumbar region 10/18/2012 12/15/19 14 Thoracic or Lumbosacral Neuritis or Radiculitis, Unspecified 02/23/2009 12/14/2013 Overview: Dr. Hollins -- epidurals x summer Routine General Medical Exam ination at a Health Care Facility 01/02/2009 12/14/2013 Overview: 09/28/06 Pain in joint, pelvic region and thigh 8 01/02/2009 Sprain of lumbar region 06/27/2008 01/03/20 09 Pain in joint, upper arm 06/27/2008 008 Pain in joint, shoulder region 06/27/2008 0 01/02/2009 Other affections of shoulder region, not elsewhere classified 01/27/2007 01/02/2009 documented as of this encounter (statuses as of 11/18/2022) [facility] History of Past illness Narrative* Problem Noted Date Resolved Date Frequency 06/13/2015 04/23/2018 Urgency of urination 06/13/2015 04/23/2018 Concussion without loss of consciousness 015 04/23/2018 Backache, unspecified 11/11/2012 12/14/2013 Sprain of lumbar region 10/18/2012 12/15/19 14 Thoracic or Lumbosacral Neuritis or Radiculitis, Unspecified 02/23/2009 12/14/2013 Overview: Dr. Hollins -- epidurals x summer Routine General Medical Exam ination at a Health Care Facility 01/02/2009 12/14/2013 Overview: 09/28/06 Pain in joint, pelvic region and thigh 8 01/02/2009 Sprain of lumbar region 06/27/2008 01/03/20 09 Pain in joint, upper arm 06/27/2008 008 Pain in joint, shoulder region 06/27/2008 0 01/02/2009 Other affections of shoulder region, not elsewhere classified 01/27/2007 01/02/2009 documented as of this encounter (statuses as of 11/24/2022) [facility] History of Past illness Narrative* Problem Noted Date Diagnosed Date Resolved Date Frequency 06/13/2015 04/23/2018 Urgency of urination 06/13/2015 018 Concussion without loss of consciousness 05/08/2015 04/23/2018 Backache, unspecified 11/11/20122013 Sprain of lumbar region 10/18/20120 05/2014 Thoracic or Lumbosacral Neur itis or Radiculitis, Unspecified 02/23/2009 12/14/2013 Overview: Dr. Hollins -- epidurals x summer Routine General Medical Exam ination at a Health Care Facility 01/02/2009 12/14/2013 Overview: 09/28/06 Pain in joint, pelvic region and thigh 06/27/2008 01/02/2009 Sprain of lumbar region 06/27/200812/07 Pain in joint, upper arm 06/27/2008 Pain in joint, shoulder region 06/27/2008 01/02/2009 Other affections of shoulder region, not elsewhere classified 01/27/2007 01/02/2009 documented as of this encounter (statuses as of 03/18/2023) [facility] History of Past illness Narrative* Problem Noted Date Diagnosed Date Resolved Date Frequency 06/13/2015 04/23/2018 Urgency of urination 06/13/2015 018 Concussion without loss of consciousness 05/08/2015 04/23/2018 Backache, unspecified 11/11/20122013 Sprain of lumbar region 10/18/20120 05/2014 Thoracic or Lumbosacral Neur itis or Radiculitis, Unspecified 02/23/2009 12/14/2013 Overview: Dr. Hollins -- epidurals x summer Routine General Medical Exam ination at a Health Care Facility 01/02/2009 12/14/2013 Overview: 09/28/06 Pain in joint, pelvic region and thigh 06/27/2008 01/02/2009 Sprain of lumbar region 06/27/200812/07 Pain in joint, upper arm 06/27/2008 Pain in joint, shoulder region 06/27/2008 01/02/2009 Other affections of shoulder region, not elsewhere classified 01/27/2007 01/02/2009 documented as of this encounter (statuses as of 03/30/2023) [facility] History of Past illness Narrative* Problem Noted Date Diagnosed Date Resolved Date Frequency 06/13/2015 04/23/2018 Urgency of urination 06/13/2015 018 Concussion without loss of consciousness 05/08/2015 04/23/2018 Backache, unspecified 11/11/20122013 Sprain of lumbar region 10/18/201205/2014 Thoracic or Lumbosacral Neur itis or Radiculitis, Unspecified 02/23/2009 12/14/2013 Overview: Dr. Hollins -- epidurals x 3 Summer 2008 Routine General Medical Exam ination at a [facility] 01/02/2009 12/14/2013 Overview: 09/28/06 Pain in joint, pelvic region and thigh 06/27/2008 01/02/2009 Sprain of lumbar region 06/27/200812/07 Pain in joint, upper arm 06/27/2008 Pain in joint, shoulder region 06/27/2008 01/02/2009 Other affections of shoulder region, not elsewhere classified 01/27/2007 01/02/2009 documented as of this encounter (statuses as of 07/04/2023) [facility] History of Past illness Narrative* Problem Noted Date Diagnosed Date Resolved Date Frequency 06/13/2015 04/23/2018 Urgency of urination 06/13/2015 018 Concussion without loss of consciousness 05/08/2015 04/23/2018 Backache, unspecified 11/11/20122013 Sprain of lumbar region 10/18/20120 05/2014 Thoracic or Lumbosacral Neur itis or Radiculitis, Unspecified 02/23/2009 12/14/2013 Overview: Dr. Hollins -- epidurals x 3 Summer 2008 Routine General Medical Exam ination at a Health Care Facility 01/02/2009 12/14/2013 Overview: 09/28/06 Pain in joint, pelvic region and thigh 06/27/2008 01/02/2009 Sprain of lumbar region 06/27/200812/07 Pain in joint, upper arm 06/27/2008 Pain in joint, shoulder region 06/27/2008 01/02/2009 Other affections of shoulder region, not elsewhere classified 01/27/2007 01/02/2009 documented as of this encounter (statuses as of 07/20/2023) [facility] Diagnosis Essential hypertension, benign Disorder of thyroid Unspecified disorder of thyroid Hyperlipidemia, unspecified hyperlipidemia type [facility] Diagnosis Prepatellar bursitis of right knee- Primary Prepatellar bursitis Hypothyroidism, unspecified type Controlled type 2 diabetes mellitus without complication, without long-term current use of insulin (HCC) Hyperlipidemia, unspecified hyperlipidemia type Essential hypertension, benign [facility] Diagnosis Hyperlipidemia, unspecified hyperlipidemia type- Primary Hypothyroidism, unspecified type Controlled type 2 diabetes mellitus without complication, without long-term current use of insulin (HCC) [facility] Diagnosis Essential hypertension, benign Hyperlipidemia, unspecified hyperlipidemia type Disorder of thyroid Unspecified disorder of thyroid Controlled type 2 diabetes mellitus without complication, without long-term current use of insulin (HCC) [facility] Diagnosis Wellness examination- Primary Essential hypertension, benign Hyperlipidemia, unspecified hyperlipidemia type JOSIAH (obstructive sleep apnea) Obstructive sleep apnea (adult) (pediatric) Central sleep apnea Unspecified sleep apnea Controlled type 2 diabetes mellitus without complication, without long-term current use of insulin (HCC) Hypothyroidism, unspecified type THEO (generalized anxiety disorder) Generalized anxiety disorder Situational stress Other psychological or physical stress, not elsewhere classified 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, cervical region Obesity, Class III, BMI 40-49.9 (morbid obesity) (HCC) Morbid obesity Need for hepatitis B screening test Encounter for hepatitis C screening test for low risk patient No-show for appointment documented [facility] Diagnosis JOSIAH (obstructive sleep apnea)- Primary Obstructive sleep apnea (adult) (pediatric) [facility] Diagnosis Wellness examination- Primary Essential hypertension, benign Hyperlipidemia, unspecified hyperlipidemia type Controlled type 2 diabetes mellitus without complication, without long-term current use of insulin (HCC) Central sleep apnea Unspecified sleep apnea JOSIAH (obstructive sleep apnea) Obstructive sleep apnea (adult) (pediatric) Need for influenza vaccination Need for prophylactic vaccination and inoculation against influenza Screening for colon cancer Special screening for malignant neoplasms, colon Screening for prostate cancer Special screening for malignant neoplasm of prostate Need for vaccination Need for prophylactic vaccination and inoculation against unspecified single disease DDD (degenerative disc disease), lumbar Degeneration of lumbar or lumbosacral intervertebral disc Spinal stenosis of lumbar region without neurogenic claudication Spinal stenosis, lumbar region, without neurogenic claudication Cervical stenosis of spine Spinal stenosis in cervical region [facility] Diagnosis Controlled type 2 diabetes mellitus without complication, without long-term current use of insulin (HCC)- Primary [facility] Diagnosis Acute upper respiratory infection- Primary Acute upper respiratory infections of unspecified site [facility] Diagnosis Chest pain, unspecified type- Primary Essential hypertension, benign Controlled type 2 diabetes mellitus without complication, without long-term current use of insulin (HCC) Hypothyroidism, acquired Unspecified hypothyroidism Syncope, unspecified syncope type Family history of heart disease Family history of other cardiovascular diseases documented [facility] encounter [facility] Diagnosis Controlled type 2 diabetes mellitus without complication, without long-term current use of insulin (HCC) [facility] Diagnosis Sepsis due to Escherichia coli without acute organ dysfunction (HCC)- Primary Acute pyelonephritis Acute pyelonephritis without lesion of renal medullary necrosis Essential hypertension, benign Controlled type 2 diabetes mellitus without complication, without long-term current use of insulin (HCC) [facility]* Diagnosis Essential hypertension, benign Disorder of thyroid Unspecified disorder of thyroid [facility] Diagnosis Acute pyelonephritis Acute pyelonephritis without lesion of renal medullary necrosis Unspecified Escherichia coli (E. coli) as the cause of diseases classified elsewhere documented in this encounter [facility] Work Phone: Evaluation note* Diagnosis Hyperglycemia- Primary Other abnormal glucose Abdominal pain, unspecified abdominal location Lactic acidosis Acidosis documented in this encounter [facility] Work Phone: History of Present illness Narrative* Patient demos increased endurance and decreased pain throughout. * Patient was able to complete today's treatment with some difficulty. [facility] Work Phone: History of Present illness Narrative* Patient demos increased endurance and decreased pain this date. Patient tolerating all exercises well. * Patient was able to complete today's treatment with some difficulty. [facility] Work Phone: Summary Purpose Family History No Family History Records FoundUnknown Family Member Name Dates Details No pertinent family history: Mother, Father(V49.89, Z78.9) Status:Active Unknown Family Member Name Dates Details No pertinent family history: Mother, Father(V49.89, Z78.9) Status:Active Unknown Family Member Name Dates Details No pertinent family history: Mother, Father(V49.89, Z78.9) Status:Active Unknown Family Member Name Dates Details No pertinent family history: Mother, Father(V49.89, Z78.9) Status:Active Advance Directives No Advanced Directives Records FoundDocuments on File Type Date Recorded 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 Advance Directive(s) 01/26/2022 2:25 PM Reason for Referral Specialty Diagnoses / Procedures Referred By Jeremy madrid Referred To Contact Ophthalmology Diagnoses Controlled type 2 diabetes mellitus without complication, without long-term current use of insulin ([facility]) Wellness examination Procedures CONSULT TO OPHTHALMOLOGY OFFICE/OUTPATIENT [facility] 60-74 MINUTES Nadege Christine PA-C [address] [place] [address] Referral ID Status Reason Start Date Expiration Date Visits Requested Visits Authorized [id number] Pending Review PCP Requested Referral 2 06/17/2023 1 1 Specialty Diagnoses / Procedures Referred By Jeremy madrid Referred To Contact Cardiology Diagnoses Chest pain, unspecified type Syncope, unspecified syncope type Family history of heart disease Procedures CONSULT TO CARDIOLOGY OFFICE/OUTPATIENT [facility] 60-74 MINUTES Ginger Price MD [address] [address] Referral ID Status Reason Start Date Expiration Date Visits Requested Visits Authorized [id number] Pending Review PCP Requested Referral 10/08/2022 10/08/2023 1 1 Chief Complaint kidney stone and infectionkidney stone and infection1 week f/u w/ PSA Additional Source Comments (unrecognized sect ion and content) No Status Records FoundNo Status Records FoundNo Status Records FoundNo Status Records FoundNo Status Records FoundNo Status Records FoundNo Status Records FoundNo Status Records FoundNo Status Records FoundNo Status Records Found INFORMATION SOURCE (unrecogn ized section and content) DATE CREATED AUTHOR AUTHOR'S ORGANIZ ATION 01/26/2022 [facility] DATE CREATED AUTHOR AUTHOR'S ORGANIZ ATION 04/12/2022 [facility] DATE CREATED AUTHOR AUTHOR'S ORGANIZ ATION 10/11/2022 [facility] DATE CREATED AUTHOR AUTHOR'S ORGANIZ ATION 04/02/2023 [facility] DATE CREATED AUTHOR AUTHOR'S ORGANIZ ATION 05/07/2023 [facility] DATE CREATED AUTHOR AUTHOR'S ORGANIZ ATION 09/26/2023 [facility] DATE CREATED AUTHOR AUTHOR'S ORGANIZ ATION 09/29/2023 [facility] DATE CREATED AUTHOR AUTHOR'S ORGANIZ ATION 10/03/2023 [facility] DATE CREATED AUTHOR AUTHOR'S ORGANIZ ATION 10/04/2023 [facility] Source Comments (unrecognize d section and content) In the event this informatio n is protected by the Federal Confidentiality of Alcohol and Drug Abuse Patient Records regulations: The Federal rules restrict any use of the information to criminally investigate or prosecute any alcohol or drug abuse patient.[facility] the event this information is protected by the Federal Confidentiality of Alcohol and Drug Abuse Patient Records regulations: The Federal rules restrict any use of the information to criminally investigate or prosecute any alcohol or drug abuse patient.[facility] the event this information is protected by the Federal Confidentiality of Alcohol and Drug Abuse Patient Records regulations: The Federal rules restrict any use of the information to criminally investigate or prosecute any alcohol or drug abuse patient.[facility] the event this information is protected by the Federal Confidentiality of Alcohol and Drug Abuse Patient Records regulations: The Federal rules restrict any use of the information to criminally investigate or prosecute any alcohol or drug abuse patient.[facility] the event this information is protected by the Federal Confidentiality of Alcohol and Drug Abuse Patient Records regulations: The Federal rules restrict any use of the information to criminally investigate or prosecute any alcohol or drug abuse patient.[facility] the event this information is protected by the Federal Confidentiality of Alcohol and Drug Abuse Patient Records regulations: The Federal rules restrict any use of the information to criminally investigate or prosecute any alcohol or drug abuse patient.[facility] the event this information is protected by the Federal Confidentiality of Alcohol and Drug Abuse Patient Records regulations: The Federal rules restrict any use of the information to criminally investigate or prosecute any alcohol or drug abuse patient.[facility] the event this information is protected by the Federal Confidentiality of Alcohol and Drug Abuse Patient Records regulations: The Federal rules restrict any use of the information to criminally investigate or prosecute any alcohol or drug abuse patient.[facility] the event this information is protected by the Federal Confidentiality of Alcohol and Drug Abuse Patient Records regulations: The Federal rules restrict any use of the information to criminally investigate or prosecute any alcohol or drug abuse patient.[facility] the event this information is protected by the Federal Confidentiality of Alcohol and Drug Abuse Patient Records regulations: The Federal rules restrict any use of the information to criminally investigate or prosecute any alcohol or drug abuse patient.[facility] the event this information is protected by the Federal Confidentiality of Alcohol and Drug Abuse Patient Records regulations: The Federal rules restrict any use of the information to criminally investigate or prosecute any alcohol or drug abuse patient.[facility] the event this information is protected by the Federal Confidentiality of Alcohol and Drug Abuse Patient Records regulations: The Federal rules restrict any use of the information to criminally investigate or prosecute any alcohol or drug abuse patient.[facility] the event this information is protected by the Federal Confidentiality of Alcohol and Drug Abuse Patient Records regulations: The Federal rules restrict any use of the information to criminally investigate or prosecute any alcohol or drug abuse patient.[facility] the event this information is protected by the Federal Confidentiality of Alcohol and Drug Abuse Patient Records regulations: The Federal rules restrict any use of the information to criminally investigate or prosecute any alcohol or drug abuse patient.[facility] the event this information is protected by the Federal Confidentiality of Alcohol and Drug Abuse Patient Records regulations: The Federal rules restrict any use of the information to criminally investigate or prosecute any alcohol or drug abuse patient.[facility] HospitalIn the event this information is protected by the Federal Confidentiality of Alcohol and Drug Abuse Patient Records regulations: The Federal rules restrict any use of the information to criminally investigate or prosecute any alcohol or drug abuse patient.[facility] HospitalIn the event this information is protected by the Federal Confidentiality of Alcohol and Drug Abuse Patient Records regulations: The Federal rules restrict any use of the information to criminally investigate or prosecute any alcohol or drug abuse patient.[facility] HospitalIn the event this information is protected by the Federal Confidentiality of Alcohol and Drug Abuse Patient Records regulations: The Federal rules restrict any use of the information to criminally investigate or prosecute any alcohol or drug abuse patient.[facility]In the event this information is protected by the Federal Confidentiality of Alcohol and Drug Abuse Patient Records regulations: The Federal rules restrict any use of the information to criminally investigate or prosecute any alcohol or drug abuse patient.[facility] Hospital[facility] the event this information is protected by the Federal Confidentiality of Alcohol and Drug Abuse Patient Records regulations: The Federal rules restrict any use of the information to criminally investigate or prosecute any alcohol or drug abuse patient.[facility] HospitalIn the event this information is protected by the Federal Confidentiality of Alcohol and Drug Abuse Patient Records regulations: The Federal rules restrict any use of the information to criminally investigate or prosecute any alcohol or drug abuse patient.[facility] HospitalIn the event this information is protected by the Federal Confidentiality of Alcohol and Drug Abuse Patient Records regulations: The Federal rules restrict any use of the information to criminally investigate or prosecute any alcohol or drug abuse patient.[facility] HospitalIn the event this information is protected by the Federal Confidentiality of Alcohol and Drug Abuse Patient Records regulations: The Federal rules restrict any use of the information to criminally investigate or prosecute any alcohol or drug abuse patient.[facility] HospitalIn the event this information is protected by the Federal Confidentiality of Alcohol and Drug Abuse Patient Records regulations: The Federal rules restrict any use of the information to criminally investigate or prosecute any alcohol or drug abuse patient.[facility] Hospital[facility] the event this information is protected by the Federal Confidentiality of Alcohol and Drug Abuse Patient Records regulations: The Federal rules restrict any use of the information to criminally investigate or prosecute any alcohol or drug abuse patient.[facility] Reason for Visit (unrecogniz ed section and content) Reason Comments Pain patient is here for follow up on right knee Reason Comments Results Reason Comments Future Appointment ER/WC Reason Comments Opened In Error Reason Onset Date Comments Refill Request 06/12/2022 Reason Comments No Show Reason Comments Orders C-Pap supplies: chin strap and mask Reason Onset Date Comments Immunizations 06/27/2022 Flu vaccination Reason Comments URI Reason Onset Date Comments Refill Request 10/06/2022 Reason Comments ER F/U Reason Comments Letter letter with dates on return to work with no restrictions needs to be on it. Reason Onset Date Comments Refill Request 11/07/2022 Reason Onset Date Comments Refill Request 11/22/2022 Reason Comments Appointment Reason Onset Date Comments Refill Request 07/03/2023 Reason Onset Date Comments Refill Request 07/20/2023 Reason Comments Other esbl ecoli pyelo/ er tapenem Reason Comments Other esbl ecoli pyelo/ Er tapenem Reason Comments Hyperglycemia Amb to ED with repor t of abd pain for 2 days and had diarrhea prior to that. He reports that he has been very thirsty and lips are dry. checked his blood sugar at home and it was over 600. Pt is Type II dm and takes metformin. 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 Start Date End Date Ginger Price MD [address] [facility] [place] [address] PCP - General Family Practice 10/20/12 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 Start Date End Date Ginger Price MD [address] [facility] [place] [address] PCP - General Family Practice 10/20/12 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 Start Date End Date Ginger Price MD [address] [facility] [place] [address] PCP - General Family Practice 10/20/12 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 Start Date End Date Ginger Price MD [address] [facility] [place] [address] PCP - General Family Practice 10/20/12 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 Start Date End Date Ginger Price MD [address] [facility] [place] [address] PCP - General Family Medicine 10/20/12 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 Start Date End Date Ginger Price MD [address] [facility] [place] [address] PCP - General Family Medicine 10/20/12 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 Start Date End Date Ginger Price MD [address] [facility] [place] [address] PCP - General Family Medicine 10/20/12 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 Start Date End Date Ginger Price MD [address] [facility] [place] [address] PCP - General Family Medicine 10/20/12 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 Start Date End Date Ginger Price MD [address] [facility] [place] [address] PCP - General Family Medicine 10/20/12 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 Start Date End Date Ginger Price MD [address] [facility] [place] [address] PCP - General Family Medicine 10/20/12 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 Start Date End Date Ginger Price MD [address] [facility] [place] [address] PCP - General Family Medicine 10/20/12 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 Start Date End Date Ginger Price MD [address] [facility] [place] [address] PCP - General Family Medicine 10/20/12 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 Start Date End Date Ginger Price MD [address] [facility] [place] [address] PCP - General Family Medicine 10/20/12 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 Start Date End Date Ginger Price MD [address] [facility] [place] [address] PCP - General Family Medicine 10/20/12 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 Start Date End Date Ginger Price MD [address] [facility] [place] [address] PCP - General Family Medicine 10/20/12 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 Start Date End Date Ginger Price MD [address] [facility] [place] [address] PCP - General Family Medicine 10/20/12 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 Start Date End Date Ginger Price MD [address] [place] [address] PCP - General 10/07/22 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 Start Date End Date Ginger Price MD [address] [place], [place] [id number] PCP - General 10/07/22 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 Start Date End Date Ginger Price MD [address] [place], [place] [id number] PCP - General 10/07/22 <item> Privacy Markings (unrecogniz ed section and content) Section Author: Payal Segura PROHIBITION ON REDISCLOSURE OF CONFIDENTIAL INFORMATION This notice accompanies a disclosure of information concerning a client made to you with the consent of such client. Scheduled Active and Recently Administ ered Medications (unrecognized section and content) FOR RECORDS PERTAINING TO PATIENTS WHO ARE OR HAVE BEEN ENROLLED IN A CHEMICAL DEPENDENCY/SUBSTANCEABUSE PROGRAM, SOME INFORMATION MAY BE OMITTED. This clinical summary was aggregated from multiple sources. Caution should be exercised in using it in the provision of clinical care. This summary normalizes information from multiple sources, and as a consequence, information in this document may materially change the coding, format and clinical context of patient data. In addition, data may be omitted in some cases. CLINICAL DECISIONS SHOULD BE BASED ON THE PRIMARY CLINICAL RECORDS. [employer] [facility]. provides no warranty or guarantee of the accuracy or completeness of information in this document.
--- OUTSIDE RECORDS SUMMARY | 2023-10-07 12:48 | XMS RPT_ITS | CCD ---
Author Name Unknown Address [address] [place] [address] Organization [facility] Care Team Providers Care Crop Picker Name Role Phone Elian Hernandez Unavailable Unavailabl e Gualbertok, Elian Salmon Unavailable Unavailabl e Elian Hernandez Unavailable Unavailabl e David, Elian Salmon Unavailable UnavailGinger Larsen MD Primary Care Provider Pending Provider Unavailable Unavailable REGGIE PAYNE Referring [...] Megan, Dr. Sen Li Referring Un available [place], Dr. Chao Guevara Admitting Unav ailable Al, Dr. Chao Guevara Attending Unav ailable Megan, Dr. Sen Li Referring Un available [place], Dr. Chao Guevara Admitting Unav ailable [place], Dr. Chao Guevara Attending Unav ailable [place], Dr. Ginger Alegria Primary Care Unavail able [place], Dr. Ginger Alegria Primary Care Unavail able TIM, DO BEAU MARTINEZ Attending Unava ilable Megan, Dr. Sen Li Attending Un available Megan, Dr. Sen Li Admitting Un available [place], Dr. Ginger Alegria Primary Care Unavail able Megan, Dr. Sen Li Attending Un available Megan, Dr. Sen Li Admitting Un available [place], Dr. Ginger Alegria Primary Care Unavail able Megan, Dr. Sen Li Attending Un available Megan, Dr. Sen Li Admitting Un available Dee, Dr. Ginger Alegria Primary Care Unavail able Megan, Dr. Sen Li Attending Un available Megan, Dr. Sen Li Admitting Un available [place], Dr. Ginger Alegria Primary Care Unavail able [...] Unavailable Ginger Price MD Primary Care Provider 1( [phone] Ginger Price MD Primary Care Provider 1( [phone] VANESSA CROSS Attending Unavailable Dee, Dr. 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] Onset: 10-07-2022 Episodic Other [...] heart dis and oth dis of [facility]] Onset: 10-07-2022 Episodic Septicemia (except in labor) [...] 79 mm[Hg] Ismael Suh DO Work Phone: [facility] 09-22-2023 22:00-0500 Heart rate 82 /min Ismael Suh DO Work Phone: [facility] 09-22-2023 22:00-0500 Respiratory rate 18 /min Ismael Suh DO Work Phone: [facility] 09-22-2023 22:00-0500 SaO2% (BldA) [Mass fraction] 95 % Ismael Suh DO Work Phone: [facility] 09-22-2023 22:00-0500 Systolic blood pressure 137 mm[Hg] Ismael Suh DO Work Phone: [facility] 09-22-2023 20:32-0500 Body temperature 37.0 degrees Celsius [facility] Encounters Encounter Date Encounter Type Care Provider Facility Start: 09-25-2023 End: 09-26-2023 ambulatory GINGER PRICE Facility:[facility] Start: 09-23-2023 End: 09-23-2023 Emergency department patient visit VANESSA SANTIZO [facility] Start: 09-23-2023 End: 09-24-2023 ambulatory DIONNE MARTINEZ [facility] Start: 09-23-2023 End: 09-23-2023 Subsequent hospital visit by physician Danny Vizcaino [facility] Procedures Date Procedure Procedure Detail Performing Clinician Start: 09-23-2023 ECG 12-LEAD GINGER VEGAO Start: 09-23-2023 Ecg routine ecg w/least 12 lds trcg only w/o i&r Dionne Martinez DIRECTOR MEDICAL SURGICAL-ENGLISH AS A SECOND LANGUAGE INSTRUCTOR Work Phone: Start: 09-22-2023 Glucose [Mass/volume] in Serum or Plasma GINGER VEGAO Start: 09-22-2023 Lactate [Moles/volume] in Serum or Plasma GINGER VEGAO Start: 09-22-2023 Glucose [Mass/volume] in Serum or Plasma GINGER [facility] Start: 09-22-2023 Lactate [Moles/volume] in Serum or Plasma GINGER [facility] Start: 09-22-2023 SERIAL TROPONIN, 1 HOUR GINGER VEGAO Start: 09-22-2023 EXTRA URINE DELUNA TUBE GINGER [facility] Start: 09-22-2023 URINALYSIS WITH REFLEX CULTURE AND MICROSCOPIC GINGER [facility] Start: 09-22-2023 End: 09-22-2023 Assay of lactate Dionne Martinez DIRECTOR MEDICAL SURGICAL-ENGLISH AS A SECOND LANGUAGE INSTRUCTOR Work Phone: Start: 09-22-2023 CT ABDOMEN PELVIS W IV CONTRAST GNIGER VEGAO Start: 09-22-2023 TROPONIN SERIES- (INITIAL, 1 HR) GINGER VEGAO Start: 09-22-2023 BETA HYDROXYBUTYRATE GINGER [facility] Start: 09-22-2023 BLOOD GAS VENOUS GINGER PRICE Start: 09-22-2023 CBC W Auto Differential panel - Blood GINGER PRICE Start: 09-22-2023 Comprehensive metabolic 2000 panel - Serum or Plasma GINGER PRICE Start: 09-22-2023 Lactate [Moles/volume] in Serum or Plasma GINGER PRICE Start: 09-22-2023 Lipase [Enzymatic activity/volume] in Serum or Plasma GINGER PRICE Start: 09-22-2023 End: 09-22-2023 Assay of lactate Dionne Martinez DIRECTOR MEDICAL SURGICAL-ENGLISH AS A SECOND LANGUAGE INSTRUCTOR Work Phone: Start: 09-22-2023 Urnls dip stick/tablet rgnt auto w/o microscopy Dionne Martinez DIRECTOR MEDICAL SURGICAL-ENGLISH AS A SECOND LANGUAGE INSTRUCTOR Work Phone: Start: 09-22-2023 Ct abdomen & pelvis w/contrast material Dionne Martinez DIRECTOR MEDICAL SURGICAL-ENGLISH AS A SECOND LANGUAGE INSTRUCTOR Work Phone: Start: 09-22-2023 Glucose [Mass/volume] in Serum or Plasma GINGER PRICE Start: 09-22-2023 Troponin I.cardiac panel - Serum or Plasma by High sensitivity method Ismael Suh DO Work Phone: Start: 09-22-2023 End: 09-22-2023 Comprehensive metabolic panel Dionne Martinez DIRECTOR MEDICAL SURGICAL-ENGLISH AS A SECOND LANGUAGE INSTRUCTOR Work Phone: Start: 09-22-2023 Gases blood ph direct talita xcpt pulse oximitry Dionne Martinez DIRECTOR MEDICAL SURGICAL-ENGLISH AS A SECOND LANGUAGE INSTRUCTOR Work Phone: Start: 09-22-2023 Glucose quantitative blood [...] DTaP/Tdap/Td Vaccines (3 - Td or Tdap) [facility] Start: 06-27-2032 Urine microalbumin profile [facility] Start: 09-22-2026 Diabetes mellitus screening Diabetes Screening [facility] Start: 06-10-2026 TWO PNEUMOVAX 5 YEARS APART PRIOR TO AGE 65 (#2) TWO PNEUMOVAX 5 YEARS APART PRIOR TO AGE 65 (#2) [facility] Start: 03-30-2024 ANNUAL PCP TEAM CHRONIC DISEASE VISIT ANNUAL PCP TEAM CHRONIC DISEASE VISIT [facility] Start: 03-17-2024 ANNUAL PCP TEAM CHRONIC DISEASE VISIT ANNUAL PCP TEAM CHRONIC DISEASE VISIT [facility] Start: 01-23-2024 Hepatitis B surface antibody level LDL CHOLESTEROL [facility] Start: 10-30-2023 ANNUAL PCP TEAM CHRONIC DISEASE VISIT ANNUAL PCP TEAM CHRONIC DISEASE VISIT [facility] Start: 10-08-2023 ANNUAL PCP TEAM CHRONIC DISEASE VISIT ANNUAL PCP TEAM CHRONIC DISEASE VISIT [facility] Start: 08-28-2023 ANNUAL PCP TEAM CHRONIC DISEASE VISIT ANNUAL PCP TEAM CHRONIC DISEASE VISIT [facility] Start: 07-25-2023 Hemoglobin A1c/Hemoglobin.total in Blood HBA1C [facility] Start: 06-27-2023 3 comp foot exam completed DIABETIC FOOT EXAM [facility] Start: 06-27-2023 ANNUAL PCP TEAM CHRONIC DISEASE VISIT ANNUAL PCP TEAM CHRONIC DISEASE VISIT [facility] Start: 06-27-2023 BP CONTROLLED (<130/80) [facility]OLLED (<130/80) [facility] Start: 06-27-2023 COVID-19 VACCINE (#1) COVID-19 VACCINE (#1) [facility] Immunizations Immunization Date Immunization Notes Care Provider Fa cility 06-27-2022 influenza, injectabl e, quadrivalent, contains preservative BRIANNE Christine PA-C Work Phone: [facility] 06-27-2022 pneumococcal polysaccharide vaccine, 23 valent NA Christine PA-C Work Phone: [facility] 06-27-2022 tetanus toxoid, redu jo diphtheria toxoid, and acellular pertussis vaccine, adsorbed NA Christine PA-C Work Phone: [facility] 06-27-2022 zoster vaccine recombinant NA Christine PA-C Work Phone: [facility] 06-27-2022 influenza virus vacc ine, unspecified formulation Ginger Price MD Work Phone: [facility] 06-10-2021 influenza, injectabl e, quadrivalent, contains preservative Ginger Price MD Work Phone: [facility] 06-10-2021 pneumococcal polysaccharide vaccine, 23 valent Ginger Price MD Work Phone: [facility] 07-23-2020 influenza, seasonal, injectable Ginger Price MD Work Phone: [facility] 07-23-2020 influenza, seasonal, injectable, preservative free NA Christine PA-C Work Phone: [facility] 06-30-2019 influenza, injectabl e, quadrivalent, contains preservative Ginger Price MD Work Phone: [facility] Work Phone: 08-07-2017 Influenza, injectabl e, Madin [place] Canine Kidney, preservative free, quadrivalent NA Christine PA-C Work Phone: [facility] 06-07-2017 influenza, seasonal, injectable, preservative free NA Christine PA-C Work Phone: [facility] 07-05-2016 influenza, injectabl e, quadrivalent, contains preservative Ginger Price MD Work Phone: [facility] 08-16-2015 influenza, injectabl e, quadrivalent, contains preservative Ginger Price MD Work Phone: [facility] 06-02-2014 influenza, seasonal, injectable Ginger Price MD Work Phone: [facility] 09-20-2012 influenza virus vacc ine, unspecified formulation Ginger Price MD Work Phone: [facility] Work Phone: 09-19-2011 influenza virus vacc ine, unspecified formulation Ginger Price MD Work Phone: [facility] Work Phone: 09-19-2011 tetanus toxoid, redu jo diphtheria toxoid, and acellular pertussis vaccine, adsorbed Ginger Price MD Work Phone: [facility] Work Phone: Payers Date Payer Category Payer Worker's Compensation [id number] Worker's Compensation [id number] 2019 Private Health Insurance [facility] CHOICE PLUS [id number] 2019-Present [phone] [address] [address] [place] [address] HMO [id number] 2016 Private Health Insurance [id number] 2016 Private Health Insurance [id number]. [id number] 2016 Unknown 1970 Unknown [id number] 2.16.840.1.466535.3.579. 2. 1970 Unknown [id number] 2.16.840.1.575236.3.579. 2 1970 Unknown [id number] 2.16.840.1.769654.3.579. 2 1970 Unknown [id number] 2.16.840.1.432865.3.579. 2 1970 Unknown [id number] 2.16.840.1.224316.3.579. 2 1970 Unknown [id number] 2.16.840.1.465550.3.579. 2 1970 Unknown [id number] 2.16.840.1.218389.3.579. 2.3 1970 Unknown [id number] 2.16.840.1.811464.3.579. 2.1068 1970 Unknown [id number] 2.16.840.1.176699.3.579. 2.1068 1970 Unknown [id number] 2.16.840.1.068895.3.579. 2.1068 1970 Unknown [id number] 2.16.840.1.575387.3.579. 2.1068 1970 Unknown [id number] 2.16.840.1.536740.3.579. 2.1068 1970 Unknown [id number] 2.16.840.1.534641.3.579. 2.1068 1970 Unknown [id number] 2.16.840.1.317829.3.579. 2.1068 1970 Unknown [id number] 2.16.840.1.400304.3.579. 2.1068 1970 Unknown [id number] 2.16.840.1.838556.3.579. 2.1068 1970 Unknown [id number] 2.16.840.1.233546.3.579. 2.1068 1970 Unknown [id number] 2.16.840.1.214410.3.579. 2.1068 1970 Unknown [id number] 2.16.840.1.830131.3.579. 2.1068 1970 Unknown [id number] 2.16.840.1.373548.3.579. 2.1068 1970 Unknown [id number] 2.16.840.1.397928.3.579. 2.1068 1970 Unknown [id number] 2.16.840.1.503541.3.579. 2.356 1970 Unknown [id number] 2.16.840.1.220277.3.579. 2.356 1970 Unknown [id number] 2.16.840.1.093560.3.579. 2.356 1970 Unknown [id number] 2.16.840.1.180102.3.579. 2.902 1970 Unknown [id number] 2.16.840.1.357387.3.579. 2.902 1970 Unknown [id number] 2.16.840.1.293758.3.579. 2.902 1970 Unknown [id number] 2.16.840.1.563595.3.579. 2.1243 1970 Unknown [id number] 2.16.840.1.043750.3.579. 2.1243 Unknown [id number] Worker's Compensation [id number] Social History Date Type Detail Facility Start: 03-18-2013 End: 06-27-2022 Tobacco smoking status MNIS Smokes tobacco daily [facility] End: 10-08-2022 History of tobacco use Cigarette Smoker [facility] Start: 08-09-2021 End: 03-30-2023 Alcohol intake Current drinker of alcohol (finding) [facility] Start: 02-01-2020 End: 12-28-2020 History SDOH Alcohol Frequency 1 [facility] Start: 02-01-2020 History SDOH Social Connections Phone 3 [facility] Start: 02-01-2020 History SDOH Physical Activity DPW 0 [facility] Start: 02-01-2020 End: 12-02-2021 History SDOH Transport Med 2 [facility] Start: 02-01-2020 Education 12 [facility] Start: 1970 Sex Assigned At Not on file [facility] Start: 10-15-2021 End: 09-22-2023 Exposure to SARS-CoV-2 (event) Not sure [facility] Start: 1970 Sex Assigned At Male [facility] Start: 03-18-2013 End: 01-22-2023 Cigarettes smoked current (pack per day) - Reported 1 [facility] Start: 03-18-2013 End: 03-17-2023 Tobacco use and exposure Smokeless tobacco non-user [facility] Work Phone: Start: 06-27-2022 Tobacco Comment 06/27/2022 5 cigs/day [facility] Tobacco smoking consumption unknown [facility] Start: 03-17-2023 Tobacco smoking status NHIS Ex-smoker [facility] End: 10-08-2022 History of tobacco use Current smoker [facility] Start: 01-22-2023 End: 03-17-2023 Tobacco use panel [facility] Adult Depression Screening Assessment 0 [facility] Start: 12-01-2021 Gender identity Identifies as male gender (finding) [facility] Do you belong to any clubs or organizations such as zoroastrianism groups, unions, fraternal or athletic groups, or school groups? Yes [facility] Are you now , , , , never or living with a partner? [facility] How often to you hav e a drink containing alcohol? Never [facility] Do you feel stress - tense, restless, nervous, or anxious, or unable to sleep at night because your mind is troubled all the time - these days [OSQ] Not at all [facility] (I/We) worried wheth er (my/our) food would run out before (I/we) got money to buy more. Never true [facility] In the past 12 month s, was there a time when you were not able to pay the mortgage or rent on time? No [facility] Medical Equipment Procedure Code Equipment Code [...] Type Note Facility 09-25-2023 Note HNO ID: [id number] Author: GINGER PRICE MD Service: ? Author Type: Physician Type: Progress Notes Filed: 09/25/2023 16:24 Note Text: No chief complaint on file. HPI: Patient presents today for office visit for follow up. HOSPITAL/ER FOLLOW UP: Reason for visit: hyperglycemia glucose 600-was thirsty and kept drinking Pepsi so checked glucose [facility] Date of visit: 09/22/23 and 09/23/23 Diagnosis: [...] Fam hx-cardiovas dis NEC n/a father, of [place] at 45 Hypothyroid Other and unspecified hyperlipidemia [...] distress, well-hydrated, wel (more content not included)... [facility] 07-20-2023 Miscellaneous Notes Patient has been [...] Elyse Seals MA documented in this encounter [facility] 07-04-2023 Miscellaneous Notes [facility]-03/30/23 Labs-03/30/23 NOV-07/24/23 documented in this encounter [facility] 04-16-2023 History of Presen t illness Narrative Patient is here for 1 week f/u w/ PSA. Most recent PSA was 0.19 on 04/29. He was seen last week for ER f/u. CT was done 10/07/22 and was normal from standpoint. [place] showed mild perinephric stranding but no stones or obstruction. .Urine cx was sent last week that did come back positive. .He was given Augmentin on Thursday for a positive Cx and feels much better...ED is mild.. [facility] Work Phone: 03-30-2023 Note HNO ID: [id number] Author: Ginger Price MD Service: ? Author Type: Physician Type: Progress Notes Filed: 03/30/2023 9:51 AM Note Text: No chief complaint on file. HPI: Patient presents today for office visit for follow up. HOSPITAL/ER FOLLOW UP: Reason for visit: fever, abd pain Which facility: [facility] Date of visit: 03/18/23 Discharge: 03/22/23 Diagnosis: [...] Fam hx-cardiovas dis NEC n/a father, of [place] at 45 Hypothyroid Other and unspecified hyperlipidemia [...] rashes or lesio (more content not included)... [facility] 03-30-2023 History of Presen t illness Narrative No chief complaint on file. HPI: Patient presents today for office visit for follow up. HOSPITAL/ER FOLLOW UP: Reason for visit: fever, abd pain Which facility: [facility] Date of visit: 03/18/23 Discharge: 03/22/23 Diagnosis: [...] Fam hx-cardiovas dis NEC n/a father, of [place] at 45 Hypothyroid Other and unspecified hyperlipidemia [...] ICD9: 250.00, ICD10: E11.9 - stable. Ginger Price MD documented in this encounter [facility] 03-17-2023 Note HNO ID: [id number] Author: Fiona Kee MD Service: ? Author Type: Physician Type: Progress Notes Filed: 03/18/2023 8:08 AM Note Text: Chief Complaint Patient presents with: Vomiting Diarrhea Fever HPI Reggie King is a 52 year old male [...] back up. Notes that he was at [facility] ED about 2 weeks ago for similar symptoms and was told he had a virus and he was dehydrated. Symptoms resolved about 3 days after discharge. Past medical history, appointments, medications, allergies reviewed. Previous Medical History PAST MEDICAL HISTORY Diagnosis Date Elevated white blood cell count has been reviewed by hematology. will follow periodically Fam hx-cardiovas dis NEC n/a father, of [place] at 45 Hypothyroid Other and unspecified hyperlipidemia [...] TMs normal. Nose/Sinuse (more content not included)... [facility] 03-17-2023 Miscellaneous Notes spouse returned call and appt noteds updated Patient scheduled appt for this evening via [employer] and only notes state sick . Requesting patient to return call or message via [employer] more detailed report of complaint. documented in this encounter [facility] 01-22-2023 Note HNO ID: [id number] Author: Nadege Christine PA-C Service: ? 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 OM1: 65% Mid RPDA 50%, distal 70%, small 1.5 mm vessel Successful KESHAV proximal LAD using resolute [place] 3.0 x 15 mm post dilation with 3.25 mm balloon, approximately 3.5 mm balloon Recommendations: Aspirin indefinitely, Plavix for at least 12 months. 10/22/2022 echocardiogram WC: LV: Size and LVSF WNL, EF 60% RV: Normal Atria: Left normal size, right not well visualized. MV, TV, PV not well visualized. AV: Normal Aortic root not well visualized. Identified study was technically difficult 10/13/2022 Consult [facility] with Dr. Ashley Patton: Notes indicate patient felt lightheaded, also vertiginous prior to syncopal event. No seizure activity. Had 3 successive episodes. Was complaining of anterior chest tightness with exertion, relieved by rest. Diagnosed with acute angina, plan: Started on ASA 81 mg daily, increase metoprolol 100 mg daily recommended heart cath with possible revascularization. EKG 10/08/[address] Price consult [facility] for cardiology 10/07/2022 ER visit [facility]: Became dizzy after smoking cigarette, [...] in urination? N (more content not included)... [facility] 11-24-2022 Miscellaneous Notes Patient phones requesting refills as follows: Requested Prescriptions Pending Prescriptions Disp Refills dulaglutide (TRULICITY) 0.75 mg/0.5 mL pen injector 4 Each 5 Sig: Inject 0.75 mg subcutaneously one time a week. [facility] 10/30/22 NOV 01/22/23 Please review and advise. Ronnie Barrow LPN documented in this encounter [facility] 10-30-2022 Miscellaneous Notes Addended letter. Mac [...] letter is ready and she will come cloth picker. Danielle Mann LPN documented in this encounter [facility] 10-30-2022 Note HNO ID: [id number] Author: Nadege Christine PA-C Service: ? Author Type: Physician Closing Machine Operator Type: Progress Notes Filed: 10/30/2022 10:50 AM Note Text: 51 year old male with c/o follow up after stent placement on 10/24/22 10/10/2022 presented to [facility] emergency department with complaint of left-sided sharp [...] condition 10/13/[address] Ashley Patton, [facility]. In that visit patient identified in addition [...] Fam hx-cardiovas dis NEC n/a father, of [place] at 45 Hypothyroid Other and unspecified hyperlipidemia [...] Diabetes Mellitus Type 2, Controlled, Without Complications ([facility]) Obesity, Class Iii, Bmi 40-49.9 (Morbid Obesity) ([facility]) Situational Stress Theo (Generalized Anxiety Disorder) Josiah (Obstructive Sleep Apnea) Ddd (Degenerative Disc Disease), Lumbar Spinal Stenosis of Lumbar Region Without Neurogenic Claudication Cervical Stenosis of Spine Current Outpatient Medications Medication Sig Dispense Refill atorvastatin (LIPITOR) 40 mg tablet Take 1 tablet by mouth daily at bedtime. For cholesterol. 90 tablet (more content not included)... [facility] 10-08-2022 Note HNO ID: [id number] Author: Ginger Price MD Service: ? Author Type: Physician Type: Progress Notes Filed: 10/08/2022 11:58 AM Note Text: Patient presents with: ER F/U HPI: Patient presents today for office visit for ER F/U. [facility] ER 10/07/22. Transported via EMS after syncopal [...] Fam hx-cardiovas dis NEC n/a father, of [place] at 45 Hypothyroid Other and unspecified hyperlipidemia [...] cyanosis. Good capillary (more content not included)... [facility] 10-08-2022 History of Presen t illness Narrative Patient presents with: ER F/U HPI: Patient presents today for office visit for ER F/U. [facility] ER 10/07/22. Transported via EMS after syncopal [...] Fam hx-cardiovas dis NEC n/a father, of [place] at 45 Hypothyroid Other and unspecified hyperlipidemia [...] given hx. Will get old records from [facility]. - CONSULT TO CARDIOLOGY 6. Family history of heart disease - ICD9: V17.49, ICD10: Z82.49 - CONSULT TO CARDIOLOGY Ginger Price MD documented in this encounter [facility] 10-07-2022 History of Presen t illness Narrative Patient is here for kidney stone and pyelonephritis..Patient was in [facility], was treated with IV antibiotics and IM injections after discharge..States is feeling better..CT was done 10/07/22 and was normal from standpoint. [place] showed mild perinephric stranding but no stones or obstruction. ..Chronic BPH with LUTs, sx are mild and stable..No dysuria, No hematuria since discharged from [place]..Nocturia x 1-2, depending on fluid intake..ED is mild.. No PSA. [id number] DO Work Phone: 10-07-2022 History of Presen t illness Narrative Patient is here for kidney stone and pyelonephritis..Patient was in [facility], was treated with IV antibiotics and IM injections after discharge..States is feeling better..CT was done 10/07/22 and was normal from standpoint. [place] mild perinephric stranding but no stones or obstruction. ..Chronic BPH with LUTs, sx are mild and stable..No dysuria, No hematuria since discharged from [place]..Nocturia x 1-2, depending on fluid intake..ED is mild.. No PSA. [id number] Work Phone: 10-07-2022 Miscellaneous Notes Patient has [...] Nuha Perez LPN documented in this encounter [facility] 10-07-2022 Miscellaneous Notes Patient has been identified by name and date of : Yes Requested Prescriptions Pending Prescriptions Disp Refills PARoxetine (PAXIL) 40 mg tablet 90 tablet 3 Sig: Take 1 tablet by mouth once daily. [facility] 08/28/22 RX INSTRUCTIONS: Patient aware RX will be sent to pharmacy. No need to notify patient. Tiffanie Sanchez Ma documented in this encounter [facility] 08-28-2022 History of Presen t illness Narrative Audio only was used for evaluation of this patient. 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 I need the hgba1c if he could stop levar n get it done- my apologies. Non-fasting is fine. Get Medical Advice on 07/07/22 HGB A1C ThanksMac PA-C documented in this encounter [facility] 06-27-2022 Instructions Nadege Christine PA-C - 06/27/2022 10:35 AM EDT Use Mycolog cream twice a day as directed for 2 weeks or until burning and itching improve, then swith to Lotrimen cream twice a day as directed (over the counter) until every trace of skin rash or peeling is gone. 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 Kylie Tran written Reggie King is a [...] calling: Liliana Call patient at: on cell [phone] (home) [phone] (work) [phone] (cell) Was an appointment scheduled: No Closing statement: Results or non-symptom based questions: Thank you for calling [facility], your call will be returned within the next business day. Edna Saucedo Pss documented in this encounter [facility] 06-17-2022 History of Presen t illness Narrative NO show letter mailed to pt. Vanda Contreras Ma No show. Mac Christine PA-C documented in this encounter [facility] 06-12-2022 Miscellaneous Notes Patient has been [...] Edna Saucedo Pss documented in this encounter [facility] 01-27-2022 Miscellaneous Notes called in and states she booked apt with pcp because he was to [facility] yesterday 01-26-22 and was to be seen today. Dr. Price reviewed ER report and is advising pt contact the place that he was referred to by [facility] because he is going to need referred to ortho and he would be much better served by them. I notified and apt in office today has been cancelled. Danielle Mann LPN documented in this encounter [facility] 2021 Miscellaneous Notes notified of letter ready at med recs calling to check status. Please let her know when ready for cloth picker. Hoping to cloth picker today. Call [phone] Danielle Mann LPN Placed on desk for signature Printed. See pt message and advise. Vanda Contreras Ma documented in this encounter [facility] 12-15-2021 History of Presen t illness Narrative Extended time required for all activities d/t increased pain /10 and decreased ROM of LUE/shoulder.Patient was able to complete today's treatment with some difficulty. [facility] Work Phone: 12-10-2021 Miscellaneous Notes Patient was [...] Missed any doses? documented in this encounter [facility] 12-09-2021 History of Presen t illness [...] toradol. Is going to see ortho in [place]. Has to call to get time. Needs [...] Fam hx-cardiovas dis NEC n/a father, of [place] at 45 Hypothyroid Other and unspecified hyperlipidemia [...] months and prn. documented in this encounter [facility] 12-09-2021 Miscellaneous Notes Pt is already scheduled documented in this encounter [facility] 11-29-2021 Miscellaneous Notes Patient has been [...] patient. Cynthia Watson documented in this encounter [facility] documented as of this encounter (statuses as of 11/29/2021) [facility] History of Past illness Narrative* Problem [...] of this encounter (statuses as of 12/09/2021) [facility] History of Past illness Narrative* Problem [...] of this encounter (statuses as of 12/09/2021) [facility] History of Past illness Narrative* Problem [...] of this encounter (statuses as of 12/10/2021) [facility] History of Past illness Narrative* Problem [...] of this encounter (statuses as of 2021) [facility] History of Past illness Narrative* Problem [...] of this encounter (statuses as of 01/27/2022) [facility] History of Past illness Narrative* Problem [...] of this encounter (statuses as of 03/15/2022) [facility] History of Past illness Narrative* Problem [...] of this encounter (statuses as of 06/12/2022) [facility] History of Past illness Narrative* Problem [...] of this encounter (statuses as of 06/17/2022) [facility] History of Past illness Narrative* Problem [...] of this encounter (statuses as of 06/18/2022) [facility] of Past illness Narrative* Problem [...] of this encounter (statuses as of 06/28/2022) [facility] of [facility] Narrative* Problem [...] of this encounter (statuses as of 07/08/2022) [facility] of [facility] Narrative* Problem [...] of this encounter (statuses as of 08/29/2022) [facility] of [facility] Narrative* Problem [...] of this encounter (statuses as of 10/07/2022) [facility] of [facility] Narrative* Problem [...] of this encounter (statuses as of 10/08/2022) [facility] Narrative* Problem [...] of this encounter (statuses as of 10/30/2022) [facility] of [facility] Narrative* Problem [...] of this encounter (statuses as of 11/08/2022) [facility] of [facility] Narrative* Problem [...] of this encounter (statuses as of 11/18/2022) [facility] Narrative* Problem [...] of this encounter (statuses as of 11/24/2022) [facility] of [facility] Narrative* Problem [...] of this encounter (statuses as of 03/18/2023) [facility] Narrative* Problem [...] of this encounter (statuses as of 03/30/2023) [facility] Narrative* Problem Noted Date Diagnosed Date Resolved Date Frequency 06/13/2015 04/23/2018 Urgency of urination 06/13/2015 018 Concussion without loss of consciousness 05/08/2015 04/23/2018 Backache, unspecified 11/11/20122013 Sprain of lumbar region 10/18/201205/2014 Thoracic or Lumbosacral Neur itis or Radiculitis, Unspecified 02/23/2009 12/14/2013 Overview: Dr. Hollins -- epidurals x 3 Summer 2008 Routine General Medical Exam ination at a [facility] 01/02/2009 12/14/2013 Overview: 09/28/06 Pain in joint, pelvic region and thigh 06/27/2008 01/02/2009 Sprain of lumbar region 06/27/200812/07 Pain in joint, upper arm 06/27/2008 Pain in joint, shoulder region 06/27/2008 01/02/2009 Other affections of shoulder region, not elsewhere classified 01/27/2007 01/02/2009 documented as of this encounter (statuses as of 07/04/2023) [facility] History of Past illness Narrative* Problem [...] of this encounter (statuses as of 07/20/2023) [facility] Diagnosis Essential hypertension, benign Disorder of thyroid Unspecified disorder of thyroid Hyperlipidemia, unspecified hyperlipidemia type [facility] Diagnosis Prepatellar bursitis of right knee- Primary Prepatellar bursitis Hypothyroidism, unspecified type Controlled type 2 diabetes mellitus without complication, without long-term current use of insulin (HCC) Hyperlipidemia, unspecified hyperlipidemia type Essential hypertension, benign [facility] Diagnosis Hyperlipidemia, unspecified hyperlipidemia type- Primary Hypothyroidism, unspecified type Controlled type 2 diabetes mellitus without complication, without long-term current use of insulin (HCC) [facility] Diagnosis Essential hypertension, benign Hyperlipidemia, unspecified hyperlipidemia type Disorder of thyroid Unspecified disorder of thyroid Controlled type 2 diabetes mellitus without complication, without long-term current use of insulin (HCC) [facility]* Diagnosis Wellness examination- Primary Essential hypertension, [...] No-show for appointment documented [facility] Diagnosis JOSIAH (obstructive sleep apnea)- Primary Obstructive sleep apnea (adult) (pediatric) [facility]* Diagnosis Wellness examination- Primary Essential hypertension, [...] in cervical region [facility]* Diagnosis Controlled type 2 diabetes mellitus without complication, without long-term current use of insulin (HCC)- Primary [facility] Diagnosis Acute upper respiratory infection- Primary Acute upper respiratory infections of unspecified site [facility] Diagnosis Chest pain, unspecified type- Primary Essential hypertension, benign Controlled type 2 diabetes mellitus without complication, without long-term current use of insulin (HCC) Hypothyroidism, acquired Unspecified hypothyroidism Syncope, unspecified syncope type Family history of heart disease Family history of other cardiovascular diseases [facility] Diagnosis Controlled type 2 diabetes mellitus without complication, without long-term current use of insulin (HCC) [facility] Diagnosis Sepsis due to Escherichia coli without acute organ dysfunction (HCC)- Primary Acute pyelonephritis Acute pyelonephritis without lesion of renal medullary necrosis Essential hypertension, benign Controlled type 2 diabetes mellitus without complication, without long-term current use of insulin (HCC) [facility]* Diagnosis Essential hypertension, benign Disorder of thyroid Unspecified disorder of thyroid [facility]* Diagnosis Acute pyelonephritis Acute pyelonephritis without lesion of renal medullary necrosis Unspecified Escherichia coli (E. coli) as the cause of diseases classified elsewhere documented in this encounter [facility] Work Phone: Evaluation note* Diagnosis Hyperglycemia- Primary Other abnormal glucose Abdominal pain, unspecified abdominal location Lactic acidosis Acidosis documented in this encounter [facility] Work Phone: History of Present illness Narrative* Patient demos increased endurance and decreased pain throughout. * Patient was able to complete today's treatment with some difficulty. [facility] Work Phone: History of Present illness Narrative* Patient demos increased endurance and decreased pain this date. Patient tolerating all exercises well. * Patient was able to complete today's treatment with some difficulty. 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 Advance Directive(s) 01/26/2022 2:25 PM Reason for Referral Specialty Diagnoses / Procedures Referred By Jeremy madrid Referred To Contact Ophthalmology Diagnoses Controlled type 2 diabetes mellitus without complication, without long-term current use of insulin ([facility]) Wellness examination Procedures CONSULT TO OPHTHALMOLOGY OFFICE/OUTPATIENT [facility] 60-74 MINUTES Nadege Christine PA-C [address] [place] [address] Referral ID Status Reason Start Date Expiration Date Visits Requested Visits Authorized [id number] Pending Review PCP Requested Referral 2 06/17/2023 1 1 Specialty Diagnoses / Procedures Referred By Jeremy madrid Referred To Contact Cardiology Diagnoses Chest pain, unspecified type Syncope, unspecified syncope type Family history of heart disease Procedures CONSULT TO CARDIOLOGY OFFICE/OUTPATIENT [facility] 60-74 MINUTES Ginger Price MD [address] [place] [address] Referral ID Status Reason Start Date Expiration Date Visits Requested Visits Authorized [id number] Pending Review PCP Requested Referral 10/08/2022 10/08/2023 [...] DATE CREATED AUTHOR AUTHOR'S ORGANIZ ATION 01/26/2022 [facility] DATE CREATED AUTHOR AUTHOR'S ORGANIZ ATION 04/12/2022 [facility] DATE CREATED AUTHOR AUTHOR'S ORGANIZ ATION 10/11/2022 [facility] DATE CREATED AUTHOR AUTHOR'S ORGANIZ ATION 04/02/2023 [facility] DATE CREATED AUTHOR AUTHOR'S ORGANIZ ATION 05/07/2023 [facility] DATE CREATED AUTHOR AUTHOR'S ORGANIZ ATION 09/26/2023 [facility] DATE CREATED AUTHOR AUTHOR'S ORGANIZ ATION 09/29/[address] [facility] DATE CREATED AUTHOR AUTHOR'S ORGANIZ ATION 10/03/2023 [facility] DATE CREATED AUTHOR AUTHOR'S ORGANIZ ATION 10/04/2023 [facility] Source Comments (unrecognize d section and [...] or prosecute any alcohol or drug abuse patient.[facility] the event this information is protected by the Federal Confidentiality of Alcohol and Drug Abuse Patient Records regulations: The Federal rules restrict any use of the information to criminally investigate or prosecute any alcohol or drug abuse patient.[facility] the event this information is protected by the Federal Confidentiality of Alcohol and Drug Abuse Patient Records regulations: The Federal rules restrict any use of the information to criminally investigate or prosecute any alcohol or drug abuse patient.[facility] the event this information is protected by the Federal Confidentiality of Alcohol and Drug Abuse Patient Records regulations: The Federal rules restrict any use of the information to criminally investigate or prosecute any alcohol or drug abuse patient.[facility] Hospital[facility] the event this information is protected by the Federal Confidentiality of Alcohol and Drug Abuse Patient Records regulations: The Federal rules restrict any use of the information to criminally investigate or prosecute any alcohol or drug abuse patient.[facility] HospitalIn the event this information is protected by the Federal Confidentiality of Alcohol and Drug Abuse Patient Records regulations: The Federal rules restrict any use of the information to criminally investigate or prosecute any alcohol or drug abuse patient.[facility] HospitalIn the event this information is protected by the Federal Confidentiality of Alcohol and Drug Abuse Patient Records regulations: The Federal rules restrict any use of the information to criminally investigate or prosecute any alcohol or drug abuse patient.[facility] HospitalIn the event this information is protected by the Federal Confidentiality of Alcohol and Drug Abuse Patient Records regulations: The Federal rules restrict any use of the information to criminally investigate or prosecute any alcohol or drug abuse patient.[facility] HospitalIn the event this information is protected by the Federal Confidentiality of Alcohol and Drug Abuse Patient Records regulations: The Federal rules restrict any use of the information to criminally investigate or prosecute any alcohol or drug abuse patient.[facility] HospitalIn the event this information is protected by the Federal Confidentiality of Alcohol and Drug Abuse Patient Records regulations: The Federal rules restrict any use of the information to criminally investigate or prosecute any alcohol or drug abuse patient.[facility] HospitalIn the event this information is protected by the Federal Confidentiality of Alcohol and Drug Abuse Patient Records regulations: The Federal rules restrict any use of the information to criminally investigate or prosecute any alcohol or drug abuse patient.[facility] HospitalIn the event this information is protected by the Federal Confidentiality of Alcohol and Drug Abuse Patient Records regulations: The Federal rules restrict any use of the information to criminally investigate or prosecute any alcohol or drug abuse patient.[facility] HospitalIn the event this information is protected by the Federal Confidentiality of Alcohol and Drug Abuse Patient Records regulations: The Federal rules restrict any use of the information to criminally investigate or prosecute any alcohol or drug abuse patient.[facility] HospitalIn the event this information is protected by the Federal Confidentiality of Alcohol and Drug Abuse Patient Records regulations: The Federal rules restrict any use of the information to criminally investigate or prosecute any alcohol or drug abuse patient.[facility] HospitalIn the event this information is protected by the Federal Confidentiality of Alcohol and Drug Abuse Patient Records regulations: The Federal rules restrict any use of the information to criminally investigate or prosecute any alcohol or drug abuse patient.[facility] HospitalIn the event this information is protected by the Federal Confidentiality of Alcohol and Drug Abuse Patient Records regulations: The Federal rules restrict any use of the information to criminally investigate or prosecute any alcohol or drug abuse patient.[facility] HospitalIn the event this information is protected by the Federal Confidentiality of Alcohol and Drug Abuse Patient Records regulations: The Federal rules restrict any use of the information to criminally investigate or prosecute any alcohol or drug abuse patient.[facility] HospitalIn the event this information is protected by the Federal Confidentiality of Alcohol and Drug Abuse Patient Records regulations: The Federal rules restrict any use of the information to criminally investigate or prosecute any alcohol or drug abuse patient.[facility] HospitalIn the event this information is protected by the Federal Confidentiality of Alcohol and Drug Abuse Patient Records regulations: The Federal rules restrict any use of the information to criminally investigate or prosecute any alcohol or drug abuse patient.[facility] HospitalIn the event this information is protected by the Federal Confidentiality of Alcohol and Drug Abuse Patient Records regulations: The Federal rules restrict any use of the information to criminally investigate or prosecute any alcohol or drug abuse patient.[facility] HospitalIn the event this information is protected by the Federal Confidentiality of Alcohol and Drug Abuse Patient Records regulations: The Federal rules restrict any use of the information to criminally investigate or prosecute any alcohol or drug abuse patient.[facility] HospitalIn the event this information is protected by the Federal Confidentiality of Alcohol and Drug Abuse Patient Records regulations: The Federal rules restrict any use of the information to criminally investigate or prosecute any alcohol or drug abuse patient.[facility] HospitalIn the event this information is protected by the Federal Confidentiality of Alcohol and Drug Abuse Patient Records regulations: The Federal rules restrict any use of the information to criminally investigate or prosecute any alcohol or drug abuse patient.[facility] HospitalIn the event this information is protected by the Federal Confidentiality of Alcohol and Drug Abuse Patient Records regulations: The Federal rules restrict any use of the information to criminally investigate or prosecute any alcohol or drug abuse patient.[facility] Reason for Visit (unrecogniz ed section [...] Care Teams (unrecognized sec tion and content) Crop Picker Relationship Specialty Start Date End Date Ginger Price MD [address] [place] [address] PCP - General Family Practice 10/20/12 Crop Picker Relationship Specialty Start Date End Date Ginger Price MD [address] [place] [address] PCP - General Family Practice 10/20/12 Crop Picker Relationship Specialty Start Date End Date Ginger Price MD [address] [facility] [place] [address] PCP - General Family Practice 10/20/12 Crop Picker Relationship Specialty Start Date End Date Ginger Price MD [address] [facility] [place] [address] PCP - General Family Practice 10/20/12 Crop Picker Relationship Specialty Start Date End Date Ginger Price MD [address] [facility] [place] [address] PCP - General Family Practice 10/20/12 Crop Picker Relationship Specialty Start Date End Date Ginger Price MD [address] [facility] [place] [address] PCP - General Family Practice 10/20/12 Crop Picker Relationship Specialty Start Date End Date Ginger Price MD [address] [facility] [place] [address] PCP - General Family Practice 10/20/12 Crop Picker Relationship Specialty Start Date End Date Ginger Price MD [address] [facility] [place] [address] PCP - General Family Medicine 10/20/12 Crop Picker Relationship Specialty Start Date End Date Ginger Price MD [address] [facility] [place] [address] PCP - General Family Medicine 10/20/12 Crop Picker Relationship Specialty Start Date End Date Ginger Price MD [address] [facility] [place] [address] PCP - General Family Medicine 10/20/12 Crop Picker Relationship Specialty Start Date End Date Ginger Price MD [address] [facility] [place] [address] PCP - General Family Medicine 10/20/12 Crop Picker Relationship Specialty Start Date End Date Ginger Price MD [address] [facility] [place] [address] PCP - General Family Medicine 10/20/12 Crop Picker Relationship Specialty Start Date End Date Ginger Price MD [address] [facility] [place] [address] PCP - General Family Medicine 10/20/12 Crop Picker Relationship Specialty Start Date End Date Ginger Price MD [address] [facility] [place] [address] PCP - General Family Medicine 10/20/12 Crop Picker Relationship Specialty Start Date End Date Ginger Price MD [address] [facility] [place] [address] PCP - General Family Medicine 10/20/12 Crop Picker Relationship Specialty Start Date End Date Ginger Price MD [address] [facility] [place] [address] PCP - General Family Medicine 10/20/12 Crop Picker Relationship Specialty Start Date End Date Ginger Price MD [address] [facility] [place] [address] PCP - General Family Medicine 10/20/12 Crop Picker Relationship Specialty Start Date End Date Ginger Price MD [address] [facility] [place] [address] PCP - General Family Medicine 10/20/12 Crop Picker Relationship Specialty Start Date End Date Ginger Price MD [address] [facility] [place] [address] PCP - General Family Medicine 10/20/12 Crop Picker Relationship Specialty Start Date End Date Ginger Price MD [address] [place] [address] PCP - General 10/07/22 Crop Picker Relationship Specialty Start Date End Date Ginger Price MD [address] [place], [place] [address] PCP - General 10/07/22 Crop Picker Relationship Specialty Start Date End Date Ginger Price MD [address] [place], [place] [id number] PCP - General 10/07/22 <item> Privacy Markings [...] BE BASED ON THE PRIMARY CLINICAL RECORDS. [employer] [facility]. provides no warranty or guarantee of the accuracy or completeness of information in this document.
[2023-10-07 15:37] LABS: Troponin-I HS 7 pg/mL (3.0-78.0)
[2023-10-07] MEDS: metFORMIN HCl 500 MG Tablet 1000 MG PO (16:50)
[2023-10-07 17:15] LABS: Bedside Glucose 139 mg/dL (74-106)
[2023-10-07] MEDS: amLODIPine 10 MG Tablet PO (20:28)
[2023-10-07] MEDS: Atorvastatin Calcium 40 MG Tablet PO (20:28)
[2023-10-07] MEDS: Heparin Injection (Vial) 5,000 UNIT/ML VIAL 5000 UNIT SC (20:28)
[2023-10-07] MEDS: Paroxetine 20 MG Tablet 40 MG PO (20:28)
[2023-10-07] MEDS: Metoprolol(XL)Succ 50 MG Tablet PO (20:29)
[2023-10-07] MEDS: Clopidogrel Bisulfate 75 MG Tablet PO (20:29)
[2023-10-07 21:08] LABS: Bedside Glucose 193 mg/dL (74-106)
[2023-10-08] VITALS (10 sets, daily range): BP systolic 123–153; BP diastolic 73–96; PULSE 71–78; RESP 16–20; TEMP 36.4–36.9; O2SAT 93–96
[2023-10-08] MEDS: Levothyroxine 125 MCG Tablet PO (06:37)
[2023-10-08] MEDS: Aspirin E.C. 81 MG Tablet PO (06:38)
[2023-10-08 07:22] LABS: Bedside Glucose 163 mg/dL (74-106)
[2023-10-08] MEDS: Nitroglycerin (INPATIENT USE) 0.4 MG TAB.SUBL 0.400000000000000022 MG SL (08:29)
--- NOTE | 2023-10-08 10:11 | CASEMGMT ---
Insurance review for hospitals In-network with?[facility] insurance if transfer is recommended is as follows:?[facility], [place], [facility], [facility], [facility], [facility] ([facility]), [facility], [facility], and . Larissa Townsend, Discharge Planning Asst.
[2023-10-08 11:26] LABS: Bedside Glucose 150 mg/dL (74-106)
[2023-10-08] MEDS: Acetaminophen 325 MG Tablet 650 MG PO (11:48)
[2023-10-08] MEDS: Vancomycin 125 MG/5 ML Susp PO.SYRINGE PO ×2 (11:50→17:49)
--- NOTE | 2023-10-08 12:41 | NURSING ---
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 Notified Dr. Watkins, patient and patients .
--- NOTE | 2023-10-08 12:54 | HP.PCM.HOS_ITS ---
HPI - General General Date of Admission: 10/07/23 Date of Service: 10/07/23 Chief Complaint: Chest pain HPI Narrative ROMEL LOPES, is a 52 M who presents to the emergency room at [facility] with complaints of substernal chest pain that started the morning he was seen in the emergency room -approximately 3 hours prior. P atient's stated that he had intermittent chest pain over the last few weeks, he stated that his chest discomfort was brought on by exertion, he was seen in his PCPs office today and was given a nitroglycerin and his chest pain resolved. Patient was also given 4 baby aspirin in the office, patient is already on Plavix because he had a previous history of atherosclerotic heart disease and a stent placed in the past. Patient describes his chest discomfort as pressure- like in nature. Patient denies any radiation to his neck or down his arm. Workup in the emergency room included a CBC which was unremarkable, patient's chemistry profile was remarkable for glucose of 152. AST and ALT were elevated at 62 and 106 respectively. Troponin was normal. Chest x-ray showed no acute abnormality. Patient's EKG showed a sinus rhythm at a rate of 63 bpm with nonspecific anterior wall ST-T wave changes. Patient will be placed into observation status on PCU, his enzymes will be cycled, he will be monitored on telemetry, and echocardiogram will be obtained, he will be seen in consultation by cardiology. [facility] Medical History Anxiety Atherosclerosis of coronary artery of [place] heart without angina pectoris BiPAP (biphasic positive airway pressure) dependence Colitis Depression Depression Diabetes Elevated liver enzymes Essential hypertension Family history of heart disease Former smoker Hyperlipidemia Hypertension Hypertension Kidney stones Leukocytosis Myocardial infarct Nausea vomiting and diarrhea JOSIAH (obstructive sleep apnea) Sepsis Sleep apnea Type 2 diabetes mellitus Home Medications amlodipine 10 mg tablet 10 mg PO QHS BLOOD PRESSURE 03/15/18 [History Last Taken 03/17/23] levothyroxine 125 mcg tablet 125 mcg PO DAILY THYROID 02/08/19 [History Last Taken 10/07/23] atorvastatin 40 mg tablet 40 mg PO QHS CHOLESTEROL 10/09/22 [History Last Taken 10/06/23] metformin 500 mg tablet 1,000 mg PO BID BLOOD SUGARS 10/09/22 [History Last Taken 10/07/23] paroxetine HCl 40 mg tablet 40 mg PO QHS DEPRESSION 10/09/22 [History Last Taken 10/06/23] metoprolol succinate 50 mg tablet,extended release 24 hr 50 mg PO QHS BLOOD P RESSURE 10/13/22 [History Last Taken 10/06/23] nitroglycerin 0.4 mg sublingual tablet 0.4 mg sublingual Q5M PRN CHEST PAIN #14 tabs 10/24/22 [Rx Last Taken Unknown] aspirin 81 mg tablet,delayed release 81 mg PO DAILY HEART HEALTH 10/07/23 [History Last Taken 10/06/23] clopidogrel 75 mg tablet 75 mg PO QHS BLOOD THINNER 10/07/23 [History Last Taken 10/06/23] glimepiride 2 mg tablet 2 mg PO DAILY 10/07/23 [History Last Taken 10/07/23] Allergy/AdvReac Type Severity Reaction Status Date / Time No Known Allergies Allergy Verified 03/04/23 21:55 Family History Father Myocardial infarction, Onset Age: 45 Mother Hypertension Mixed hyperlipidemia Grandmother CHF (congestive heart failure) Surgical History History of coronary artery stent placement (~10/24/22) History of tonsillectomy Status post excision of lipoma Social History household members: spouse Smoking Status: Former smoker alcohol intake: current details: occasional substance use type: does not use caffeine: Yes Type: carbonated beverages Number of servings: 6 ROS Constitutional Constitutional: Denies anorexia, change in weight, fever(s), night sweats or weakness Eyes Eyes: Denies blurry vision, change in vision, discharge from eye(s) or eye pain Cardiovascular Cardiovascular: Reports chest pain; Denies claudication, dyspnea on exertion, edema, palpitations, paroxysmal nocturnal dyspnea or rapid heart rate Respiratory/Chest Respiratory/Chest: Denies cough, dyspnea, hemoptysis, shortness of breath at rest or shortness of breath with exertion Gastrointestinal Gastrointestinal: Denies abdominal pain, constipation, diarrhea, hematemesis, hematochezia, melena, nausea or vomiting Genitourinary Genitourinary: Denies dysuria, hematuria, urinary frequency, urinary hesitancy, urinary incontinence or urinary urgency Musculoskeletal Musculoskeletal: Denies back pain, joint pain, joint stiffness, joint swelling, myalgias or neck pain Neurologic Neurologic: Denies abnormal gait, abnormal speech, dizziness, focal weakness, headache(s), loss of vision, numbness, other visual disturbances, paresthesias, syncope or tingling Psychiatric Psychiatric: Denies anxiety, cognitive impairment, depression, irritability, mood swings or suicidal ideation Endocrine Endocrinology: Denies change in body appearance, cold intolerance, excessive sweating, heat intolerance, polydipsia or polyuria Hematologic/Lymphatic Hematologic/Lymphatic: Denies none, anemia, easy bleeding, easy bruising or lymphadenopathy Allergic/Immunologic Allergic/Immunologic: Denies rhinitis, urticaria, eczemia or asthma Vital Signs Vital Signs Vital Signs: 10/07/23 18:05 10/07/23 19:45 10/07/23 20:27 Temperature 97.6 F L 97.9 F Temperature Source Oral Oral Pulse Rate 77 81 Respiratory Rate 18 18 Respiratory Effort Normal Non-Labored Respiratory Depth Normal Respiratory Pattern Normal Blood Pressure 137/87 H 148/86 H Blood Pressure [BP] Blood Pressure Mean 103 106 Blood Pressure Mean [BP] Blood Pressure Source Monitor Monitor Blood Pressure Source [BP] Blood Pressure Position Semi-Fowlers Sitting Blood Pressure Position [BP] Blood Pressure Location Right Forearm Left Arm Blood Pressure Location [BP] Pulse Ox 96 95 Oxygen Delivery Method Room Air Room Air Room Air 10/07/23 20:29 10/08/23 02:38 10/08/23 02:42 Temperature 97.8 F Temperature Source Oral Pulse Rate 81 77 Respiratory Rate 18 Respiratory Effort Normal Non-Labored Respiratory Depth Normal Respiratory Pattern Normal Blood Pressure 148/86 H 128/73 H Blood Pressure [BP] Blood Pressure Mean 91 Blood Pressure Mean [BP] Blood Pressure Source Monitor Blood Pressure Source [BP] Blood Pressure Position Semi-Fowlers Blood Pressure Position [BP] Blood Pressure Location Right Forearm Blood Pressure Location [BP] Pulse Ox 95 Oxygen Delivery Method Room Air Room Air 10/08/23 06:30 10/08/23 08:20 10/08/23 08:29 Temperature 97.5 F L 97.7 F L Temperature Source Oral Oral Pulse Rate 78 71 71 Respiratory Rate 17 20 H Respiratory Effort Respiratory Depth Respiratory Pattern Blood Pressure 133/84 H 130/78 H 130/78 H Blood Pressure [BP] Blood Pressure Mean 100 95 Blood Pressure Mean [BP] Blood Pressure Source Monitor Monitor Blood Pressure Source [BP] Blood Pressure Position Semi-Fowlers Semi-Fowlers Blood Pressure Position [BP] Blood Pressure Location Right Forearm Right Arm Blood Pressure Location [BP] Pulse Ox 95 95 Oxygen Delivery Method Room Air Room Air 10/08/23 08:36 10/08/23 08:25 10/08/23 12:00 Temperature 98.2 F Temperature Source Oral Pulse Rate 73 72 Respiratory Rate 20 H 18 Respiratory Effort Normal Non-Labored Respiratory Depth Normal Respiratory Pattern Normal Blood Pressure 153/96 H Blood Pressure [BP] 123/73 H Blood Pressure Mean 115 Blood Pressure Mean [BP] 89 Blood Pressure Source Monitor Blood Pressure Source [BP] Monitor Blood Pressure Position Sitting Blood Pressure Position [BP] Semi-Fowlers Blood Pressure Location Right Forearm Blood Pressure Location [BP] Right Arm Pulse Ox 94 95 96 Oxygen Delivery Method Room Air Room Air Room Air Weight Weight: 133.3 kg Body Mass Index (BMI) 44.6 Physical Exam Const alert, oriented x3 and no apparent distress Constitutional Narrative: Patient is morbidly obese General Appearance: cooperative, well kempt and well developed Orientation / Consciousness: awake, oriented to person, oriented to place and oriented to time HEENT normocephalic, head/scalp atraumatic, hearing grossly normal bilaterally and moist oral mucous membranes Eyes PERRL, EOMs intact bilaterally and conjunctivae normal Neck supple, no JVD, thyroid normal and no carotid bruits General: trachea midline Resp normal respiratory effort, no retractions, no use of accessory muscles and clear to auscultation bilaterally Auscultation: Negative for rales, rhonchi or wheezes Cardio regular rate, regular rhythm, S1 normal heart sound, S2 normal heart sound, no murmurs, no rub and no gallops GI normal to inspection, nondistended, normoactive bowel sounds, soft to palpation, non-tender and non-distended Extremity no clubbing, cyanosis or edema Skin no rashes or lesions noted General Skin Exam: no breakdown Neuro oriented x3, CN's II-XII intact bilaterally, moves all extremities, no focal motor deficits and no sensory deficits noted Sensorium / Orientation: awake and alert Speech: speech normal Psych affect normal Results Lab / Micro Data 10/07/23 08:34 10/07/23 08:34 Labs: Laboratory Results - last 24 hr 10/07/23 15:00: Troponin I High Sens 7 10/07/23 16:48: POC Glucose 139 H 10/07/23 20:25: POC Glucose 193 H 10/08/23 06:35: POC Glucose 163 H 10/08/23 10:54: POC Glucose 150 H Imaging Radiology Impression Echocardiogram 10/07/23 11:40 Interpretation Summary The estimated ejection fraction is 50-55 %. Normal LV systolic function No significant valve abnormality In comparison to previous echocardiogram done in October 23, 2022 no significant change noted. Ordering Physician: Gerardo Watkins Referring Physician: Sonny Price Performed By: Herberth Pop RCS Assessment & Plan Assessment/Plan (1) Chest pain: PLAN: Plan 1. Chest pain in a patient with a history of occlusive coronary disease and previous stent placement-patient was placed into observation status on PCU, echocardiogram will be performed, enzymes will be cycled, and he will be seen by cardiology. Patient will be scheduled for a nuclear exercise stress test on 10/08/2023 #2 coronary artery disease-patient will remain on his present medications, aspirin will be added to his medications after admission #3 type 2 diabetes-patient's blood sugars will be monitored, sliding scale insulin will be administered per scale #4 essential hypertension-patient will remain on his present blood pressure medi cations, they will be adjusted as necessary #5 hypothyroidism-patient will remain on his Synthroid #6 hyperlipidemia-patient will be placed on atorvastatin #7 morbid obesity-complicates care, medical course, recovery, and prognosis Total clinical time spent by myself addressing the patient's medical issues, reviewing all of his data, and collaborating with patient's care team: 55 minutes Charges/Coding Visit Charges Inpatient E&M: 61517 Init Hosp L2
--- NOTE | 2023-10-08 14:03 | CON.PCM.CA_ITS ---
Documented by User: Hanny VALENTIN, BARBIE 10/08/23 14:19 Assessment & Plan Assessment/Plan (1) Chest pain: (2) History of coronary artery stent placement: (3) Essential hypertension: (4) Hyperlipidemia: HPI Consult Data Date of Consult: 10/08/23 HPI Narrative HPI Narrative: ROMEL LOPES, is a 52 M who presented to [facility] ER on 10/07/23 with CP. He notes that he has actually been having chest pain frequently almost daily for weeks. Activity seems to bring it on. Patient states he has been sweating more. He is concerned as this is similar to what he felt when he required 2 stents last year. CP is relieved with NTG. He was at his PCP earlier today for abdominal pain that he has been having for weeks. Troponins trended . He was admitted for observation. Echocardiogram demonstrated an EF of 50-55%. He was going to have a stress test this morning, but was having CP that was similar to what he had with his last PCI. Stress test was not done and it was changed to a heart cath. He does have a hx of CAD with stenting to his proximal and mid LAD in 10/2022. He has not been seen on our office since then. He also has a hx of HTN,HL, JOSIAH and DM. [facility] Medical History Anxiety Atherosclerosis of coronary artery of [place] heart without angina pectoris BiPAP (biphasic positive airway pressure) dependence Colitis Depression Depression Diabetes Elevated liver enzymes Essential hypertension Family history of heart disease Former smoker Hyperlipidemia Hypertension Hypertension Infection due to ESBL-producing Escherichia coli Kidney stones Leukocytosis Myocardial infarct Nausea vomiting and diarrhea JOSIAH (obstructive sleep apnea) Sepsis Sleep apnea Type 2 diabetes mellitus Home Medications amlodipine 10 mg tablet 10 mg PO QHS BLOOD PRESSURE 03/15/18 [History Last Taken 03/17/23] levothyroxine 125 mcg tablet 125 mcg PO DAILY THYROID 02/08/19 [History Last Taken 10/07/23] atorvastatin 40 mg tablet 40 mg PO QHS CHOLESTEROL 10/09/22 [History Last Taken 10/06/23] metformin 500 mg tablet 1,000 mg PO BID BLOOD SUGARS 10/09/22 [History Last Taken 10/07/23] paroxetine HCl 40 mg tablet 40 mg PO QHS DEPRESSION 10/09/22 [History Last Taken 10/06/23] metoprolol succinate 50 mg tablet,extended release 24 hr 50 mg PO QHS BLOOD PRESSURE 10/13/22 [History Last Taken 10/06/23] nitroglycerin 0.4 mg sublingual tablet 0.4 mg sublingual Q5M PRN CHEST PAIN #14 tabs 10/24/22 [Rx Last Taken Unknown] aspirin 81 mg tablet,delayed release 81 mg PO DAILY HEART HEALTH 10/07/23 [History Last Taken 10/06/23] clopidogrel 75 mg tablet 75 mg PO QHS BLOOD THINNER 10/07/23 [History Last Taken 10/06/23] glimepiride 2 mg tablet 2 mg PO DAILY 10/07/23 [History Last Taken 10/07/23] Allergy/AdvReac Type Severity Reaction Status Date / Time No Known Allergies Allergy Verified 03/04/23 21:55 Family History Father Myocardial infarction, Onset Age: 45 Mother Hypertension Mixed hyperlipidemia Grandmother CHF (congestive heart failure) Surgical History (Updated 10/08/23 @ 14:19 by Hanny VALENTIN, PA) History of coronary artery stent placement (~10/24/22) History of tonsillectomy Status post excision of lipoma Social History household members: spouse Smoking Status: Former smoker alcohol intake: current details: occasional substance use type: does not use caffeine: Yes Type: carbonated beverages Number of servings: 6 ROS Constitutional Constitutional: Denies change in weight, fatigue or frequent falls Eyes Eyes: Denies acute decrease in peripheral vision, blurry vision or change in vision ENT HEENT: Denies dizziness, dry mouth, epistaxis, headache(s), tinnitus or vertigo Cardiovascular Cardiovascular: Reports as per HPI Respiratory/Chest Respiratory/Chest: Denies cough, dyspnea, dyspnea on exertion, tachypnea or wheezing Gastrointestinal Gastrointestinal: Reports abdominal pain and diarrhea; Denies bloating, coffee ground emesis or heartburn Genitourinary Genitourinary: Denies hematuria Musculoskeletal Musculoskeletal: Denies myalgias, numbness or tingling Neurologic Neurologic: Denies abnormal gait, abnormal speech, memory loss, paresthesias or weakness Physical Exam Const alert, oriented x3, no apparent distress and healthy appearing Nutritional Appearance: morbidly obese HEENT normocephalic, head/scalp atraumatic, hearing grossly normal bilaterally, exte rnal ears normal, external nose normal and moist oral mucous membranes Eyes PERRL, EOMs intact bilaterally, conjunctivae normal and no scleral icterus Neck no lymphadenopathy, supple and no JVD Resp clear to auscultation bilaterally Cardio regular rate, regular rhythm, S1 normal heart sound, S2 normal heart sound, no murmurs, no rub, no gallops, no clicks, no JVD and peripheral pulses 2+ throughout GI normal to inspection, nondistended, normoactive bowel sounds, soft to palpation, non-tender and non-distended Extremity normal to inspection, normal capillary refill, no clubbing, cyanosis or edema and no pedal edema Neuro oriented x3, CN's II-XII intact bilaterally, moves all extremities and no focal motor deficits Psych cooperative and affect normal Risk Stratification Risk Stratification Applicable: Yes Age >/= 65: No >/= 3 CAD Risk Factors (HTN, HLD, DM, family hx of CAD, or current smoker): Yes Aspirin Use in the Past 7 Days: Yes Severe Angina (>/= episodes in 24 hours): Yes EKG ST Changes >/= 0.5mm: No Positive Cardiac Marker: No KATHY Risk Stratification Score: 3 KATHY % Risk: 13% Risk Objective Data Vital Signs: Vital Signs Temp Pulse Resp BP Pulse Ox O2 Del Method O2 Flow Rate 98.2 F 72 18 153/96 H 96 Room Air 97 10/08/23 12:00 10/08/23 12:00 10/08/23 12:10/08/23 12:00 10/08/23 12:10/08/23 12:00 10/07/23 12:00 Oxygen Flow Rate (L/min) 97 Oxygen Delivery Method Room Air Weight: 293 lb 14.019 oz Body Mass Index (BMI) 44.6 Intake & Output: Intake and Output for Last 24 Hours 10/06/23 10/07/23 10/08/23 23:59 23:59 23:59 Intake Total 335 / 335 Balance 335 / 335 Lab / Micro Data 10/07/23 08:34 10/07/23 08:34 Labs: Laboratory Results - last 24 hr 10/07/23 15:00: Troponin I High Sens 7 10/07/23 16:48: POC Glucose 139 H 10/07/23 20:25: POC Glucose 193 H 10/08/23 06:35: POC Glucose 163 H 10/08/23 10:54: POC Glucose 150 H Radiography Diagnostic Testing: Radiology Impression Echocardiogram 10/07/23 11:40 Interpretation Summary The estimated ejection fraction is 50-55 %. Normal LV systolic function No significant valve abnormality In comparison to previous echocardiogram done in October 23, 2022 no significant change noted. Ordering Physician: Gerardo Watkins Referring Physician: Sonny Price Performed By: Herberth Pop RCS Documented by User: Dr. Jude Mckeon MD 10/08/23 15:45 Assessment & Plan Assessment/Plan (1) Chest pain: (2) History of coronary artery stent placement: (3) Essential hypertension: (4) Hyperlipidemia: PLAN: Plan Cardiac care plan recommendation; 52-year-old patient with history of CAD In October 2022 had a PCI stent of the mid and proximal LAD On the angiographic review he also had a lesion of the OM1 and RCA which is nonobstructive around 50%. This presentation he came with symptoms of chest pain recurrent episode of chest pain and lightheadedness and dizziness Other medical problem include history of diabetes Hypertension Hyperlipidemia Noted also had a symptoms of diarrhea and been tested positive for C. difficile. His echocardiographic evaluation LV function preserved. As he has recurrent episode of chest pain typical of angina with a history of CAD and a prior stent in October recommended to proceed and evaluate further with cardiac catheterization. Right radial artery approach. LV function is preserved by an echocardiogram. Continue to monitor and follow-up clinically and will discuss further plan with results of the cardiac catheterization which is set up for tomorrow. Jude Mckeon MD,FAC,[facility] HPI Consult Data Date of Consult: 10/08/23 [facility] Medical History Anxiety Atherosclerosis of coronary artery of [place] heart without angina pectoris BiPAP (biphasic positive airway pressure) dependence Colitis Depression Depression Diabetes Elevated liver enzymes Essential hypertension Family history of heart disease Former smoker Hyperlipidemia Hypertension Hypertension Infection due to ESBL-producing Escherichia coli Kidney stones Leukocytosis Myocardial infarct Nausea vomiting and diarrhea JOSIAH (obstructive sleep apnea) Sepsis Sleep apnea Type 2 diabetes mellitus Home Medications amlodipine 10 mg tablet 10 mg PO QHS BLOOD PRESSURE 03/15/18 [History Last Taken 03/17/23] levothyroxine 125 mcg tablet 125 mcg PO DAILY THYROID 02/08/19 [History Last Taken 10/07/23] atorvastatin 40 mg tablet 40 mg PO QHS CHOLESTEROL 10/09/22 [History Last Taken 10/06/23] metformin 500 mg tablet 1,000 mg PO BID BLOOD SUGARS 10/09/22 [History Last Taken 10/07/23] paroxetine HCl 40 mg tablet 40 mg PO QHS DEPRESSION 10/09/22 [History Last Taken 10/06/23] metoprolol succinate 50 mg tablet,extended release 24 hr 50 mg PO QHS BLOOD PRESSURE 10/13/22 [History Last Taken 10/06/23] nitroglycerin 0.4 mg sublingual tablet 0.4 mg sublingual Q5M PRN CHEST PAIN #14 tabs 10/24/22 [Rx Last Taken Unknown] aspirin 81 mg tablet,delayed release 81 mg PO DAILY HEART HEALTH 10/07/23 [History Last Taken 10/06/23] clopidogrel 75 mg tablet 75 mg PO QHS BLOOD THINNER 10/07/23 [History Last Taken 10/06/23] glimepiride 2 mg tablet 2 mg PO DAILY 10/07/23 [History Last Taken 10/07/23] Allergy/AdvReac Type Severity Reaction Status Date / Time No Known Allergies Allergy Verified 03/04/23 21:55 Family History Father Myocardial infarction, Onset Age: 45 Mother Hypertension Mixed hyperlipidemia Grandmother CHF (congestive heart failure) Surgical History (Updated 10/08/23 @ 14:19 by Hanny Hawley PA, PA) History of coronary artery stent placement (~10/24/22) History of tonsillectomy Status post excision of lipoma Social History household members: spouse Smoking Status: Former smoker alcohol intake: current details: occasional substance use type: does not use caffeine: Yes Type: carbonated beverages Number of servings: 6 Risk Stratification Age >/= 65: No KATHY Risk Stratification Score: 3 KATHY % Risk: 13% Risk Lab / Micro Data 10/07/23 08:34 10/07/23 08:34
[2023-10-08] MEDS: Insulin Lispro 100 UNIT/ML INSULN.PEN SC ×2 (16:33→22:38)
[2023-10-08 16:47] LABS: Bedside Glucose 185 mg/dL (74-106)
--- NOTE | 2023-10-08 18:57 | PCM.PN.HOSP ---
Reason for Visit Reason for Visit: Diagnoses Hyperlipidemia, unspecified (10/07/23) Essential (primary) hypertension (10/07/23) Chest pain, unspecified (10/07/23) Presence of coronary angioplasty implant and graft (10/07/23) Subjective Subjective Patient was seen and examined today, we received word from his PCPs office that the patient has C. difficile, I started him on oral vancomycin. Cardiology prefers to do his cardiac catheterization tomorrow. Patient underwent a cardiac stress test today but had pain during the procedure so it was stopped. Objective Data Objective Data Vital Signs: Vital Signs Temp Pulse Resp BP Pulse Ox O2 Del Method O2 Flow Rate 97.6 F L 76 18 129/90 H 93 Room Air 97 10/08/23 16:28 10/08/23 16:28 10/08/23 16:28 10/08/23 16:28 10/08/23 16:28 10/08/23 16:28 10/07/23 12:00 Oxygen Flow Rate (L/min) 97 Oxygen Delivery Method Room Air Weight: 133.3 kg Body Mass Index (BMI) 44.6 Intake & Output: Intake and Output for Last 24 Hours 10/06/23 10/07/23 10/08/23 23:59 23:59 23:59 Intake Total 335 / 335 Balance 335 / 335 Lab / Micro Data 10/07/23 08:34 10/07/23 08:34 Labs: Laboratory Results - last 24 hr 10/07/23 20:25: POC Glucose 193 H 10/08/23 06:35: POC Glucose 163 H 10/08/23 10:54: POC Glucose 150 H 10/08/23 16:25: POC Glucose 185 H Physical Exam Const alert, oriented x3 and no apparent distress Constitutional Narrative: Patient is morbidly obese General Appearance: cooperative, well kempt and well developed Orientation / Consciousness: awake, oriented to person, oriented to place and oriented to time HEENT normocephalic, head/scalp atraumatic and moist oral mucous membranes Eyes PERRL, EOMs intact bilaterally and conjunctivae normal Neck supple, no JVD, thyroid normal and no carotid bruits General: trachea midline Resp normal respiratory effort, no retractions, no use of accessory muscles and clear to auscultation bilaterally Auscultation: Negative for rales, rhonchi or wheezes Cardio regular rate, regular rhythm, S1 normal heart sound, S2 normal heart sound, no murmurs, no rub and no gallops GI normal to inspection, nondistended, normoactive bowel sounds, soft to palpation, non-tender and non-distended Extremity no clubbing, cyanosis or edema Skin no rashes or lesions noted General Skin Exam: no breakdown Neuro oriented x3, CN's II-XII intact bilaterally, no focal motor deficits and no sensory deficits noted Sensorium / Orientation: awake and alert Speech: speech normal Psych affect normal Assessment & Plan Assessment/Plan (1) Chest pain: PLAN: Plan 1. Chest pain in a patient with a history of occlusive coronary disease and previous stent placement-patient will undergo cardiac catheterization tomorrow, he was unable to complete a stress test today due to chest pain #2 coronary artery disease-patient will remain on his present medications #3 type 2 diabetes-patient's blood sugars will be monitored, sliding scale insulin will be administered per scale #4 essential hypertension-patient will remain on his present blood pressure medications, they will be adjusted as necessary #5 hypothyroidism-patient will remain on his Synthroid #6 hyperlipidemia-patient will be placed on atorvastatin #7 morbid obesity-complicates care, medical course, recovery, and prognosis #8 C. difficile colitis-patient states he has been having diarrhea over the last 2 weeks, he did not mention it to me yesterday, patient was placed on vancomycin p.o. Total clinical time spent by myself addressing the patient's medical issues, reviewing all of his data, and collaborating with patient's care team: 35 minutes Charges/Coding Visit Charges Inpatient E&M: 57921 Subs Hosp L2
[2023-10-08] MEDS: Heparin Injection (Vial) 5,000 UNIT/ML VIAL 5000 UNIT SC (22:43)
[2023-10-08] MEDS: Paroxetine 20 MG Tablet 40 MG PO (22:44)
[2023-10-08] MEDS: Clopidogrel Bisulfate 75 MG Tablet PO (22:44)
[2023-10-08] MEDS: Atorvastatin Calcium 40 MG Tablet PO (22:44)
[2023-10-08] MEDS: amLODIPine 10 MG Tablet PO (22:44)
[2023-10-08] MEDS: Metoprolol(XL)Succ 50 MG Tablet PO (22:45)
[2023-10-08 22:56] LABS: Bedside Glucose 185 mg/dL (74-106)
[2023-10-09] VITALS (12 sets, daily range): BP systolic 120–158; BP diastolic 61–96; PULSE 55–66; RESP 16–18; TEMP 36.3–36.4; O2SAT 94–98
[2023-10-09] MEDS: Vancomycin 125 MG/5 ML Susp PO.SYRINGE PO ×3 (02:30→14:04)
[2023-10-09] MEDS: Aspirin E.C. 81 MG Tablet PO (05:11)
[2023-10-09] MEDS: Levothyroxine 125 MCG Tablet PO (05:11)
[2023-10-09 06:33] LABS: Absolute Lymphocyte Count 1.96 X10^3/uL (0.83-4.51); Absolute Neutrophil Count 4.4 X10^3/uL (2.0-7.7); Basophil# 0.04 X10^3/uL; Basophil% 0.6 % (0-1); Eosinophil# 0.18 X10^3/uL; Eosinophils% 2.6 % (0-5); Hematocrit 40.7 % (40-54); Hemoglobin 12.8 g/dL (13.0-16.5); Lymphocyte # 1.96 X10^3/ul (0.83-4.51); Lymphocyte % 27.9 % (19-41); Mean Corp Hgb Conc 31.4 g/dL (32-36); Mean Corpuscular Hgb 26.9 pg (27.0-32.0); Mean Corpuscular Volume 85.7 fL (80-94); Mean Platelet Vol. 9.8 fl (6.2-12.0); Monocyte# 0.43 X10^3/uL; Monocyte% 6.1 % (0-10); NRBC Flagged by Analyzer 0 % (0-5); Neutrophil # 4.37 X10^3/uL (2.7-7.7); Neutrophil % 62.1 % (47-70); Platelet Count 190 K/mm3 (150-450); RBC Distribution Width CV 14.8 % (11.6-14.6); RBC Distribution Width SD 45.8 fl (35.1-43.9); Red Blood Count 4.75 M/mm3 (4.6-6.2)
[2023-10-09 06:58] LABS: Anion Gap 3 (5-15); BUN 13 mg/dL (7-18); BUN/Creat Ratio 13.3 RATIO (10-20); Calcium,Total 9.2 mg/dL (8.5-10.1); Chloride 108 mmol/L (98-107); Creatinine, Serum 0.97 mg/dL (0.70-1.30); EST Glomerular Filtration Rate 86 mL/min (>60); Est Glom Filt Rate - Afr Amer 104 mL/min (>60); Glucose 182 mg/dL (74-106); Potassium 3.8 mmol/L (3.5-5.1); Sodium Level 141 mmol/L (136-145)
[2023-10-09 07:06] LABS: Bedside Glucose 182 mg/dL (74-106)
--- NOTE | 2023-10-09 11:13 | NURSING ---
Attempted to call report for pt to go to lab systems analyst. Report declined for now.
[2023-10-09 12:05] LABS: Bedside Glucose 148 mg/dL (74-106)
--- NOTE | 2023-10-09 13:29 | PCM.OP.PRO ---
Procedure Report Date of Procedure: 10/09/23 Left heart catheterization; 1. Moderate sedation 2. Selective left coronary angiography 3. Selective right coronary angiography 4. Placement of TR band to close the right radial artery arteriotomy site. Consent; Risk and benefit of procedure explained detail which elected to proceed informed consent obtained. Preprocedure diagnosis; 52-year-old patient presented with symptoms of chest pain. Had a history of CAD with a prior PCI to the mid and proximal LAD using drug-eluting stent Recurrent episode of chest pain. Also noted patient had C. difficile and started on treatment with antibiotic. LV function from prior evaluation LV function is preserved Diagnostic catheter used; 1. 6 [place] sheaths placed the right radial artery 2. 5 [place] JL 4 3. 5 [place] R4 Procedure in detail; Patient brought to Flotation Tender Helper in fasting state Right radial artery area prepped and draped in the usual sterile fashion. Under fluoroscopic guidance to proceed with 5 [place] JR4 advanced sending aorta cannulated the left main without difficulty Multiple views of left Cholestin were obtained. Following this catheter exchanged for 5 [place] JR4 and selective angiographic right Cholestin were obtained. Following this all angiography of the study Coronary angiography; 1. Left main is normal angiographically, bifurcating into LAD and left circumflex. 2. Left anterior descending artery proximally stent is patent, as well as the mid LAD stent is patent after the diagonal branch Noted the mid LAD is tortuous Reach all the way to the apex angiographically no significant sclerosis noted in the left anterior descending artery 3. The left circumflex artery proximally has no significant atherosclerosis The pheresed OM1 had diffuse proximal atherosclerosis of around 40-50% Second appears marginal normal angiographically circumflex in the AV groove had no significant atherosclerosis 4. RCA large dominant and is normal angiographically Conclusion recommendation 52-year-old patient with history of CAD prior stent this was done in October 24, 2022 where he had a PCI stent of LAD He had symptoms of lightheadedness dizziness hypothyroidism Diabetes mellitus and had angina on this admission also noted he had C. difficile. From cardiac standpoint would recommend to continue current treatment with a dual antiplatelet therapy he been on Plavix and aspirin And would recommend risk factor modification and management of his diabetes as well as the rest of his medical problems by the medical team From cardiac standpoint patient to follow-up with her primary finish mender for continuation of cardiac care. No complication in the Flotation Tender Helper. Jude Mckeon MD,FACC,[facility]
[2023-10-09] MEDS: Glimepiride 2 MG Tablet PO (14:04)
--- NOTE | 2023-10-09 14:13 | DCINST_ITS ---
Discharge Instructions Diet Discharge Diet: 1800 Calorie Control Diet Activity Discharge Activity: Return to Normal Activity Weight Bearing Status: Full weight bearing Follow Up Care Test Results: Test results from this visit will be discussed in further detail at your follow- up appointment, if applicable. Discharge Plan Admission Admit Date/Time: 10/07/23 11:17 Primary Reason for Your Visit: chest pain Attending Provider: Gerardo Watkins Primary Care Provider: Sonny Price Consulting Providers: Jude Mckeon Discharge Orders/Prescriptions Prescriptions: New vancomycin 125 mg capsule 125 mg PO .QID Qty: 40 0RF Continued metoprolol succinate 50 mg tablet extended release 24 hr 50 mg PO QHS atorvastatin 40 mg tablet 40 mg PO QHS paroxetine HCl 40 mg tablet 40 mg PO QHS metformin 500 mg tablet 1,000 mg PO BID Hold Instructions: Hold for 3 days. amlodipine 10 MG tablet 10 mg PO QHS levothyroxine 125 MCG tablet 125 mcg PO DAILY nitroglycerin 0.4 mg Tablet, Sublingual 0.4 mg sublingual Q5M PRN (Reason: CHEST PAIN ) Qty: 14 5RF clopidogrel 75 mg tablet 75 mg PO QHS aspirin 81 mg tablet,delayed release (DR/EC) 81 mg PO DAILY glimepiride 2 mg tablet 2 mg PO DAILY Referrals / Follow Up: Sonny Price MD [Primary Care Provider] - Within 1 Month Lebron Mackenzie NP, MEDICAL CLINIC MANAGER-C [Med Staff - [facility]] - 11/09/23 10:00 am Disposition Disposition (needs filled in before D/C Order can be placed): Home, Self Care
--- NOTE | 2023-10-09 14:20 | PCM.DC.SUM ---
Providers Date of Admission: 10/07/23 Date of Discharge: 10/09/23 Primary Care Physician: Dr. Sonny Price MD Consultations 10/07/23 11:40 Consult: Cardiology Routine Consulting Provider: Jude Mckeon Reason for Consult: CHEST PAIN EMERGENT Consult: No MD Notified: Yes Date Notified: 10/07/23 Time Notified: 11:21 Method of Notification: Verbal Reason For Visit: CP Diagnosis Discharge Diagnosis (1) Chest pain: Status: Acute Code(s): R07.9 - Chest pain, unspecified Plan 1. Chest pain in a patient with a history of occlusive coronary disease and previous stent placement-patient will undergo cardiac catheterization tomorrow, he was unable to complete a stress test today due to chest pain #2 coronary artery disease-patient will remain on his present medications #3 type 2 diabetes-patient's blood sugars will be monitored, sliding scale insulin will be administered per scale #4 essential hypertension-patient will remain on his present blood pressure medications, they will be adjusted as necessary #5 hypothyroidism-patient will remain on his Synthroid #6 hyperlipidemia-patient will be placed on atorvastatin #7 morbid obesity-complicates care, medical course, recovery, and prognosis #8 C. difficile colitis-patient states he has been having diarrhea over the last 2 weeks, he did not mention it to me yesterday, patient was placed on vancomycin p.o. Total clinical time spent by myself addressing the patient's medical issues, reviewing all of his data, and collaborating with patient's care team: 35 minutes Medications at Discharge Home Medications amlodipine 10 mg tablet 10 mg PO QHS BLOOD PRESSURE 03/15/18 levothyroxine 125 mcg tablet 125 mcg PO DAILY THYROID 02/08/19 atorvastatin 40 mg tablet 40 mg PO QHS CHOLESTEROL 10/09/22 metformin 500 mg tablet 1,000 mg PO BID BLOOD SUGARS 10/09/22 paroxetine HCl 40 mg tablet 40 mg PO QHS DEPRESSION 10/09/22 metoprolol succinate 50 mg tablet,extended release 24 hr 50 mg PO QHS BLOOD PRESSURE 10/13/22 nitroglycerin 0.4 mg sublingual tablet 0.4 mg sublingual Q5M PRN CHEST PAIN #14 tabs 10/24/22 aspirin 81 mg tablet,delayed release 81 mg PO DAILY HEART HEALTH 10/07/23 clopidogrel 75 mg tablet 75 mg PO QHS BLOOD THINNER 10/07/23 glimepiride 2 mg tablet 2 mg PO DAILY blood sugar 10/07/23 vancomycin 125 mg capsule 125 mg PO .QID #40 caps 10/09/23 Hospital Course Operations None Procedures 2-D Echocardiogram and Cardiac catheterization Summary of Care Provided Minutes Spent on Discharge: 31 Hospital Course: This 52-year-old white male was seen in the emergency room at [facility] with complaints of precordial chest pain, he has a history of coronary artery disease with stent placement. Workup in the emergency room including troponins was unremarkable, patient was admitted to PCU, cardiac enzymes were cycled and these remain negative. The patient's primary care physician contacted the floor and advised that the patient was positive for C. difficile colitis, he had had a stool specimen collected as an outpatient recently. Patient was also having diarrhea and did not tell this examiner or the nurses that he had diarrhea. Patient was placed on oral vancomycin. Patient underwent a nuclear stress test but was unable to finish the stress test due to chest pain. Arrangements were made by cardiology to perform a cardiac catheterization on the patient, on 10/09/2023, patient underwent a cardiac catheterization which did not show any evidence of occlusive coronary disease, cardiology recommended that the patient remain on his current medications. On 10/09/2023, patient was seen and examined: On examination he appeared in good health and spirits. Vital signs as documented. Skin warm and dry and without overt rashes. Neck without JVD, neck was supple, trachea midline, thyroid was normal. Lungs clear bilaterally, normal air movement was noted. Heart exam notable for regular rhythm, normal sounds and absence of murmurs, rubs or gallops. Abdomen unremarkable and without evidence of organomegaly, masses, or abdominal aortic enlargement. Bowel sounds are present, abdomen is not distended. Extremities nonedematous, no cyanosis was noted, no clubbing was noted. Neuro: Cranial nerves II through XII are grossly intact, no focal motor deficits were noted, sensation to light touch and pinprick intact, motor exam 5/5 throughout. Psych: Patient is alert and oriented x3, he does not appear anxious or depressed, he does not appear agitated. Patient was discharged home in stable condition on 10/09/2023. Weight / BMI Weight Weight: 133.3 kg Body Mass Index (BMI) 44.6 ABG / Lab / Microbiology Data 10/09/23 06:05 10/09/23 06:05 Laboratory: Laboratory Results - last 24 hr 10/08/23 16:25: POC Glucose 185 H 10/08/23 22:36: POC Glucose 185 H 10/09/23 06:05: WBC 7.0, RBC 4.75, Hgb 12.8 L, Hct 40.7, MCV 85.7, MCH 26.9 L, MCHC 31.4 L, RDW Std Deviation 45.8 H, RDW Coeff of Melva 14.8 H, Plt Count 190, MPV 9.8, Immature Gran % (Auto) 0.700, Neut % (Auto) 62.1, Lymph % (Auto) 27.9, [place] % (Auto) 6.1, Eos % (Auto) 2.6, Baso % (Auto) 0.6, Absolute Neuts (auto) 4.4, Absolute Lymphs (auto) 1.96, Nucleated RBC % 0, Sodium 141, Potassium 3.8, Chloride 108 H, Carbon Dioxide 30.0, Anion Gap 3 L, BUN 13, Creatinine 0.97, Estim Creat Clear Calc 118.90, Est GFR (MDRD) Af Amer 104, Est GFR (MDRD) Non-Af 86, BUN/Creatinine Ratio 13.3, Glucose 182 H, Calcium 9.2 10/09/23 06:46: POC Glucose 182 H 10/09/23 11:34: POC Glucose 148 H D/C Instructions Discharge Diet: 1800 Calorie Control Diet Weight Bearing Status: Full weight bearing Meaningful Use Info Meaningful Use Diagnoses (Choose all that apply): None applicable Discharge Plan Admission Admit Date/Time: 10/07/23 11:17 Primary Reason for Your Visit: chest pain Attending Provider: Gerardo Watkins Primary Care Provider: Sonny Price Consulting Providers: Jude Mckeon Discharge Orders/Prescriptions Prescriptions: New vancomycin 125 mg capsule 125 mg PO .QID Qty: 40 0RF Continued metoprolol succinate 50 mg tablet extended release 24 hr 50 mg PO QHS atorvastatin 40 mg tablet 40 mg PO QHS paroxetine HCl 40 mg tablet 40 mg PO QHS metformin 500 mg tablet 1,000 mg PO BID Hold Instructions: Hold for 3 days. amlodipine 10 MG tablet 10 mg PO QHS levothyroxine 125 MCG tablet 125 mcg PO DAILY nitroglycerin 0.4 mg Tablet, Sublingual 0.4 mg sublingual Q5M PRN (Reason: CHEST PAIN ) Qty: 14 5RF clopidogrel 75 mg tablet 75 mg PO QHS aspirin 81 mg tablet,delayed release (DR/EC) 81 mg PO DAILY glimepiride 2 mg tablet 2 mg PO DAILY Referrals / Follow Up: Sonny Price MD [Primary Care Provider] - 10/16/23 1:00 pm (Appointment is with Nuha Mohan N.P.) Lebron Mackenzie NP, [employer] [Med Staff - Adv Practice Prof] - 11/09/23 10:00 am Disposition Disposition (needs filled in before D/C Order can be placed): Home, Self Care Charges/Coding Visit Charges Inpatient E&M: 90500 Disch Hosp >30min
--- NOTE | 2023-10-09 14:48 | CASEMGMT ---
Patient has order for discharge. Patient discharging on PO Vancomycin capsules, [facility] called, $10 copay. RN CM in to discuss needs at discharge and update regarding ATB cost. Patient denies needs or help at discharge. Patient had no further questions or concerns.
--- NOTE | 2023-10-09 15:09 | PN.CARD_ITS ---
Documented by User: Hanny VALENTIN, BARBIE 10/09/23 15:14 Subjective Subjective Pt seen and examined today. He did have some chest discomfort last night. He will undergo a heart cath today. Objective Data Vital Signs: Vital Signs Temp Pulse Resp BP Pulse Ox O2 Del Method O2 Flow Rate 97.6 F L 58 L 18 135/81 H 95 Room Air 2 10/09/23 14:36 10/09/23 15:00 10/09/23 15:00 10/09/23 15:00 10/09/23 15:00 10/09/23 15:00 10/09/23 09:40 Oxygen Flow Rate (L/min) 2 Oxygen Delivery Method Room Air Weight: 293 lb 14.019 oz Body Mass Index (BMI) 44.6 Intake & Output: Intake and Output for Last 24 Hours 10/07/23 10/08/23 10/09/23 23:59 23:59 23:59 Intake Total 335 / 335 Balance 335 / 335 Lab / Micro Data 10/09/23 06:05 10/09/23 06:05 Labs: Laboratory Results - last 24 hr 10/08/23 16:25: POC Glucose 185 H 10/08/23 22:36: POC Glucose 185 H 10/09/23 06:05: WBC 7.0, RBC 4.75, Hgb 12.8 L, Hct 40.7, MCV 85.7, MCH 26.9 L, MCHC 31.4 L, RDW Std Deviation 45.8 H, RDW Coeff of Melva 14.8 H, Plt Count 190, MPV 9.8, Immature Gran % (Auto) 0.700, Neut % (Auto) 62.1, Lymph % (Auto) 27.9, [place] % (Auto) 6.1, Eos % (Auto) 2.6, Baso % (Auto) 0.6, Absolute Neuts (auto) 4.4, Absolute Lymphs (auto) 1.96, Nucleated RBC % 0, Sodium 141, Potassium 3.8, Chloride 108 H, Carbon Dioxide 30.0, Anion Gap 3 L, BUN 13, Creatinine 0.97, Estim Creat Clear Calc 118.90, Est GFR (MDRD) Af Amer 104, Est GFR (MDRD) Non-Af 86, BUN/Creatinine Ratio 13.3, Glucose 182 H, Calcium 9.2 10/09/23 06:46: POC Glucose 182 H 10/09/23 11:34: POC Glucose 148 H Cardiology Labs/Tests 10/09/23 06:05: WBC 7.0, RBC 4.75, Hgb 12.8 L, Hct 40.7, MCV 85.7, MCH 26.9 L, MCHC 31.4 L, Plt Count 190, MPV 9.8, Immature Gran % (Auto) 0.700, Neut % (Auto) 62.1, Lymph % (Auto) 27.9, [place] % (Auto) 6.1, Eos % (Auto) 2.6, Baso % (Auto) 0.6, Absolute Neuts (auto) 4.4, Nucleated RBC % 0, Sodium 141, Potassium 3.8, Chloride 108 H, Carbon Dioxide 30.0, Anion Gap 3 L, BUN 13, Creatinine 0.97, Est GFR (MDRD) Af Amer 104, Est GFR (MDRD) Non-Af 86, BUN/Creatinine Ratio 13.3, Glucose 182 H, Calcium 9.2 Rhythm: NSR Physical Exam Const alert, oriented x3, no apparent distress and healthy appearing Nutritional Appearance: morbidly obese HEENT normocephalic, head/scalp atraumatic, hearing grossly normal bilaterally, external ears normal, external nose normal and moist oral mucous membranes Eyes PERRL, EOMs intact bilaterally, conjunctivae normal and no scleral icterus Neck no lymphadenopathy, supple and no JVD Resp clear to auscultation bilaterally Cardio regular rate, regular rhythm, S1 normal heart sound, S2 normal heart sound, no murmurs, no rub, no gallops, no clicks, no JVD and peripheral pulses 2+ throughout GI normal to inspection, nondistended, normoactive bowel sounds, soft to palpation, non-tender and non-distended Extremity normal to inspection, normal capillary refill, no clubbing, cyanosis or edema and no pedal edema Neuro oriented x3, CN's II-XII intact bilaterally, moves all extremities and no focal motor deficits Psych cooperative and affect normal Assessment & Plan Assessment/Plan (1) Chest pain: (2) History of coronary artery stent placement: (3) Essential hypertension: (4) Hyperlipidemia: PLAN: Plan * Pt underwent heart cath today: 1. Left main is normal angiographically, bifurcating into LAD and left circumflex. 2. Left anterior descending artery proximally stent is patent, as well as the mid LAD stent is patent after the diagonal branch Noted the mid LAD is tortuous Reach all the way to the apex angiographically no significant sclerosis noted in the left anterior descending artery 3. The left circumflex artery proximally has no significant atherosclerosis The pheresed OM1 had diffuse proximal atherosclerosis of around 40-50% Second appears marginal normal angiographically circumflex in the AV groove had no significant atherosclerosis 4. RCA large dominant and is normal angiographically * Recommend continued medical management with Plavix, Norvasc, Atorvastatin, Metoprolol, ASA. * Recommend that he f/u as OP. Charges/Coding Visit Charges Inpatient E&M: 69488 Subs Hosp L3 Documented by User: Dr. Jude Mckeon MD 10/09/23 17:20 Lab / Micro Data 10/09/23 06:05 10/09/23 06:05 Physical Exam Cardio Cardio Narrative: Underlying cardiac rhythm is normal sinus rhythm Cardiovascular exam S1-S2 is regular Chest exam is clear to auscultation bilateral Assessment & Plan Assessment/Plan (1) Chest pain: (2) History of coronary artery stent placement: (3) Essential hypertension: (4) Hyperlipidemia: PLAN: Plan * Pt underwent heart cath today: 1. Left main is normal angiographically, bifurcating into LAD and left circumflex. 2. Left anterior descending artery proximally stent is patent, as well as the mid LAD stent is patent after the diagonal branch Noted the mid LAD is tortuous Reach all the way to the apex angiographically no significant sclerosis noted in the left anterior descending artery 3. The left circumflex artery proximally has no significant atherosclerosis The pheresed OM1 had diffuse proximal atherosclerosis of around 40-50% Second appears marginal normal angiographically circumflex in the AV groove had no significant atherosclerosis 4. RCA large dominant and is normal angiographically * Recommend continued medical management with Plavix, Norvasc, Atorvastatin, Metoprolol, ASA. * Recommend that he f/u as OP. I discussed in detail the finding of cardiac catheterization with the patient as well as the Patency of the proximal and mid LAD stent demonstrated Nonobstructive sclerosis of OM1 RCA large vessel normal angiographically Patient to continue follow-up with the cardiac team at [facility] For continuation of cardiac care. From cardiac standpoint he can be discharged Will sign off
== END 2023-10-09 14:19 | disposition home or self-care (01) ==
LOC: ED 10:43 → PCU 11:28
PROVIDERS: Admitting Provider Internal Medicine; Emergency Provider Emergency Medicine; PCP Family Medicine; Visit Provider Internal Medicine
DX: R07.89 Other chest pain (principal); E66.01 Morbid (severe) obesity due to excess calories; Z68.41 Body mass index [BMI] 40.0-44.9, adult; E11.9 Type 2 diabetes mellitus without complications; G47.33 Obstructive sleep apnea (adult) (pediatric); Z87.891 Personal history of nicotine dependence; I10 Essential (primary) hypertension; Z95.5 Presence of coronary angioplasty implant and graft; A04.72 Enterocolitis due to Clostridium difficile, not specified as recurrent; Z79.84 Long term (current) use of oral hypoglycemic drugs; E78.5 Hyperlipidemia, unspecified; Z79.82 Long term (current) use of aspirin; Z79.02 Long term (current) use of antithrombotics/antiplatelets; I25.10 Atherosclerotic heart disease of native coronary artery without angina pectoris; Z79.899 Other long term (current) drug therapy; F32.A Depression, unspecified; F41.9 Anxiety disorder, unspecified; E03.9 Hypothyroidism, unspecified; Z79.890 Hormone replacement therapy
CPT/HCPCS: 36415; 71045; 80048; 80076; 82962; 83690; 84484; 85025; 93005; 93306; 93454; 96360; 96361; 96372; 99152; 99153; 99221; 99285; J7030; J7040; Q9957; Q9967; A4216; C1769; C1894; C8929; G0378

== ENCOUNTER 2024-05-02 21:44 | Emergency (ER) | payer OTHER, SELFPAY ==
[2024-05-02 21:45] VITALS: BP 136/104; PULSE 82; RESP 18; TEMP 36.6; O2SAT 95; BMI 45.4
--- NOTE | 2024-05-02 22:20 | RAD_ITS ---
EXAM: XR LEFT KNEE COMPLETE, 4 OR MORE VIEWS CLINICAL INDICATION: Injury/Pain TECHNIQUE: Four or more views of the left knee. COMPARISON: No relevant prior studies available. FINDINGS: BONES/JOINTS: There is narrowing of the medial knee joint space. No acute fracture. No subluxation. Normal alignment. No sclerotic or destructive changes observed. SOFT TISSUES: Unremarkable. No soft tissue swelling or gas. No radiopaque foreign body. RAD/Knee 4 or More Views IMPRESSION: No acute osseous abnormalities. There are mild degenerative changes with narrowing of the medial knee joint. Electronically Signed: Ethan Payan MD at 23:04 EDT ,
--- NOTE | 2024-05-02 22:22 | EDS_ITS ---
HPI History of Present Illness HPI Narrative: Patient presents with left knee pain that has been getting worse over the past week. Patient states he felt pain in his knee for the past 3 weeks. Patient states that over the past week it has gotten much worse. Patient states he had x-rays done at a different facility which did not show any acute fracture or dislocation. Patient describes his pain as aching and throbbing. Patient states it is worse with walking and weightbearing. Patient denies any paresth esias or weakness. Patient states his pain is worse over the posterior aspect of his left knee. Chief Complaint: Lower Extremity Injury Informant: patient Onset/Context/Timing Onset: Weeks (1) Context: Gradual Onset Timing: Continuous Quality of Pain: Aching and Throbbing Location: Left knee Worsened by: Walking and weightbearing Relieved by: Nothing Associated Symptoms Associated Symptoms: Negative for Parasthesia, Weakness or Loss of Funtion [facility] Medical History Infection due to ESBL-producing Escherichia coli Anxiety Depression Diabetes Kidney stones Former smoker BiPAP (biphasic positive airway pressure) dependence Sleep apnea Myocardial infarct Hypertension Atherosclerosis of coronary artery of [place] heart without angina pectoris Leukocytosis JOSIAH (obstructive sleep apnea) Type 2 diabetes mellitus Family history of heart disease Essential hypertension Nausea vomiting and diarrhea Colitis Elevated liver enzymes Sepsis Depression Hyperlipidemia Hypertension Home Medications ?Medication ?Instructions ?Recorded ?Last Taken ?Type amlodipine 10 mg tablet 10 mg PO QHS BLOOD PRESSURE 03/15/18 03/17/23 History levothyroxine 125 mcg tablet 125 mcg PO DAILY THYROID 02/08/19 10/07/23 History atorvastatin 40 mg tablet 40 mg PO QHS CHOLESTEROL 10/09/22 10/06/23 History metformin 500 mg tablet 1,000 mg PO BID BLOOD SUGARS 10/09/22 10/07/23 History paroxetine HCl 40 mg tablet 40 mg PO QHS DEPRESSION 10/09/22 10/06/23 History metoprolol succinate 50 mg 50 mg PO QHS BLOOD PRESSURE 10/13/22 10/06/23 History tablet,extended release 24 hr nitroglycerin 0.4 mg sublingual 0.4 mg sublingual Q5M PRN CHEST 10/24/22 Unknown Rx tablet PAIN #14 tabs aspirin 81 mg tablet,delayed 81 mg PO DAILY HEART HEALTH 10/07/23 10/06/23 History release glimepiride 2 mg tablet 2 mg PO DAILY blood sugar 10/07/23 10/07/23 History vancomycin 125 mg capsule 125 mg PO .QID #40 caps 10/09/23 Unknown Rx clopidogrel 75 mg tablet See Rx Instructions .Route 10/27/23 Unknown Rx .COMPLEX #90 tabs hydrocodone-acetaminophen 5-325mg 1 tab PO Q6H PRN PRN Pain 3 days 05/02/24 Unknown Rx 5mg-325mg #10 TABLETS Allergy/AdvReac Type Severity Reaction Status Date / Time No Known Allergies Allergy Verified 05/02/24 21:47 Family History Father Myocardial infarction, Onset Age: 45 Mother Hypertension Mixed hyperlipidemia Grandmother CHF (congestive heart failure) Surgical History History of left heart catheterization (10/09/23) History of coronary artery stent placement (~10/24/22) History of tonsillectomy Status post excision of lipoma Social History household members: spouse Smoking Status: Former smoker alcohol intake: current details: occasional substance use type: does not use caffeine: Yes Type: carbonated beverages Number of servings: 6 ROS ROS ED Constitutional Constitutional ED: Denies chills or fever(s) Eyes Eyes: Denies blurry vision or change in vision ENT ENT ED: Denies rhinorrhea or sore throat Cardiovascular Cardiovascular: Denies chest pain or palpitations Respiratory/Chest Respiratory/Chest: Denies cough or dyspnea Gastrointestinal Gastrointestinal: Denies nausea or vomiting Genitourinary Genitourinary ED: Denies dysuria or hematuria Musculoskeletal Musculoskeletal: Denies back pain or neck pain Integumentary Denies abscess or rash Neurologic Neurologic: Denies headache(s) or weakness Allergic/Immunologic Allergic/Immunologic ED: Denies mouth swelling or urticaria EXAM Physical Exam Const Vital Signs: 05/02/24 21:45 Temperature 98 F Temperature Source Oral Pulse Rate 82 Respiratory Rate 18 Blood Pressure 136/104 H Blood Pressure Mean 114 Pulse Ox 95 Oxygen Delivery Method Room Air Positive well nourished and well developed General Appearance ED: well developed and NAD HEENT Reports moist mucous membranes Neck full ROM and supple Extremity Extremity Narrative: There is tenderness over the posterior aspect of the left knee. There is some mild edema noted. There is no calf tenderness noted. Range of motion was limited in all motions of the left knee secondary to pain. There is some guarding on examination. There is no laxity appreciated. Pedal pulses are equal bilaterally. Sensation was intact to light touch bilaterally in the lower extremities. Neuro oriented x3, CN's II-XII intact bilaterally, moves all extremities and no sensory deficits noted Sensorium / Orientation: alert Motor Exam: strength 5/5 throughout Psych mental status grossly normal MDM MDM MDM Narrative Medical decision making narrative: Differential diagnosis includes sprain, contusion, and occult fracture. X-rays of the left knee will be obtained to assess for occult fracture and loose body. Radiography Diagnostic Testing: X-rays of the left knee were obtained. There are 4 views. On my independent interpretation, there is no acute fracture. There is no loose body. There is no soft tissue swelling. Radiologist also interpreted the x-rays and agrees. Treatment and Re-Evaluation Narrative: Patient was given a dose of Bentley here. Patient was advised of his findings. Patient was instructed to ice and elevate the left knee. Patient was given a prescription for a short course of Bentley. Patient was instructed to follow-up with his primary care physician in 5 to 7 days. Patient understood and was agreeable with the plan. All questions were answered. Discharge Plan Triage Chief Complaint: Lower Extremity Injury ED Provider: Josafat Centeno Dx/Rx/DC Orders Clinical Impression: Acute pain of left knee, Obesity, Diabetes Instructions: ED Knee Pain of Uncertain Cause Prescriptions: New hydrocodone-acetaminophen 5-325 mg tablet 1 tab PO Q6H PRN PRN (Reason: Pain) 3 Days Qty: 10 0RF No Action metoprolol succinate 50 mg tablet extended release 24 hr 50 mg PO QHS atorvastatin 40 mg tablet 40 mg PO QHS paroxetine HCl 40 mg tablet 40 mg PO QHS metformin 500 mg tablet 1,000 mg PO BID amlodipine 10 MG tablet 10 mg PO QHS levothyroxine 125 MCG tablet 125 mcg PO DAILY nitroglycerin 0.4 mg Tablet, Sublingual 0.4 mg sublingual Q5M PRN (Reason: CHEST PAIN ) Qty: 14 5RF aspirin 81 mg tablet,delayed release (DR/EC) 81 mg PO DAILY glimepiride 2 mg tablet 2 mg PO DAILY vancomycin 125 mg capsule 125 mg PO .QID Qty: 40 0RF clopidogrel 75 mg tablet See Rx Instructions .ROUTE .COMPLEX Qty: 90 3RF Dose Instruction: TAKE 1 TABLET BY MOUTH EVERY DAY Rx Instructions: TAKE 1 TABLET BY MOUTH EVERY DAY Primary Care Provider: Sonny Price Referrals: Sonny Price MD [Primary Care Provider] - 5-7 Days Print Language: Swedish Disposition Disposition: Home, Self Care
[2024-05-02] MEDS: HYDROcodone Bitartrate/Apap 5/325 Tablet PO (22:23)
== END 2024-05-03 00:07 | disposition home or self-care (01) ==
PROVIDERS: Emergency Provider Emergency Medicine; PCP Family Medicine; Visit Provider Emergency Medicine
DX: M25.562 Pain in left knee (principal); E11.9 Type 2 diabetes mellitus without complications; I25.10 Atherosclerotic heart disease of native coronary artery without angina pectoris; E78.5 Hyperlipidemia, unspecified; E66.9 Obesity, unspecified; I10 Essential (primary) hypertension; Z79.02 Long term (current) use of antithrombotics/antiplatelets; Z79.82 Long term (current) use of aspirin; Z79.84 Long term (current) use of oral hypoglycemic drugs; Z79.890 Hormone replacement therapy; Z79.899 Other long term (current) drug therapy; Z87.891 Personal history of nicotine dependence
CPT/HCPCS: 73564; 99282

== ENCOUNTER 2025-06-01 19:08 | Inpatient (IN) | payer OTHER, SELFPAY ==
[2025-06-01 19:09] VITALS: BP 139/85; PULSE 71; RESP 21; TEMP 37.1; O2SAT 98; BMI 42.9
[2025-06-01 20:09] VITALS: BP 140/85; PULSE 64; RESP 18; O2SAT 97
--- OUTSIDE RECORDS SUMMARY | 2025-06-01 20:11 | XMS RPT_ITS | CCD ---
Author Organization [facility] CliniSyil Care Team Providers Care Printer Apprentice Name Role Phone Unavailable Unavailable Unavailable Swiatek, Ellie Salmon Unavailable Unavailabl e Swiatek, Ellie Salmon Unavailable Unavailabl e Swiatek, Ellie Salmon Unavailable Unavailabl e Swiatek, Ellie Salmon Unavailable UnavailGinger Larsen MD Primary Care Provider Pending Provider Unavailable Unavailable REGGIE PAYNE Referring Unavailable KERRY, REGGIE BRAR Admitting Unavailable GINGER LUGO Primary Care Unavailable KERRYREGGIE BROCK Referring Unavailable KERRYREGGIE Admitting Unavailable GINGER LUGO Primary Care Unavailable KERRYREGGIE BROCK Referring Unavailable PEMAGINGER Ochoa Primary Care Unavailable KERRYREGGIE Admitting Unavailable KERRYREGGIE Referring Unavailable PEMAGINGER [place]choa Primary Care Unavailable KERRYREGGIE Admitting Unavailable KERRY, REGGIE BRAR Referring Unavailable KERRY, REGGIE BRAR Admitting Unavailable GINGER LUGO Primary Care Unavailable Ginger Lugo MD Primary Care Provider Ginger Lugo MD Primary Care Provider Ginger Lugo Unavailable Beau Dumont Unavailable UnavailDr. Ginger Larsen Primary Care Provider Hanny Jones Attending Provider Unavailable Dr. Ginger Lugo Referring Provider Dr. Ashley Patton Attending Provider Melissa Bowman Attending Provider Unavailable Dr. Ashley Patton Admit Provider Dr. Ashley Patton Other Provider Dr. Ginger Lugo Primary Care Provider Dr. Porter Banuelos Emergency Provider Dr. Hiral Rodriguez L Admit Provider White, Dr. Hiral Bernal Other Provider Christian, Dr. Mcgill Attending Provider Christian, Dr. Mcgill Other Provider Ana M, Dr. Harpreet Lagos Other Provider Megan, Dr. Chatterjee Other Provider Pending, Provider Primary Care Unavailable Taj, MsWinston Nicolas Attending Unava ilable Pema, Dr. Ginger Alegria Primary Care Unavail able Megan, Dr. Sen Li Referring Un available [place], Dr. Chao Guevara Admitting Unav ailable [place], Dr. Chao Guevara Attending Unav ailable Megan, Dr. Sen Li Referring Un available [place], Dr. Chao Guevara Admitting Unav ailable [place], Dr. Chao Guevara Attending Unav ailable Pema, Dr. Ginger Alegria Primary Care Unavail able [place], Dr. Ginger Alegria Primary Care Unavail able LEMDIANELYS, DO BEAU MARTINEZ Attending Unava ilable Megan, Dr. Sen Li Attending Un available Megan, Dr. Sen iL Admitting Un available [place], Dr. Ginger Alegria Primary Care Unavail able Megan, Dr. Sen Li Attending Un available Megan, Dr. Sen Li Admitting Un available [place], Dr. Ginger Alegria Primary Care Unavail able Megan, Dr. Sen Li Attending Un available Megan, Dr. Sen Li Admitting Un available Pema, Dr. Ginger Alegria Primary Care Unavail able Megan, Dr. Sen Li Attending Un available Megan, Dr. Sen Li Admitting Un available [place], Dr. Ginger Alegria Primary Care Unavail able Pema, Dr. Ginger Alegria Primary Care Unavail able Megan, Dr. Sen Li Attending Un available Megan, Dr. Sen Li Admitting Un available Pending, Provider Primary Care Unavailable Taj, Ms. Yojana Nicolas Attending Unava ilable Pending, Provider Primary Care Unavailable Taj, Ms. Yojana Maria Isabel Attending Unava ilable Pending, Provider Primary Care Unavailable Taj, Ms. Yojana Nicolas Attending Unava ilable Pending, Provider Primary Care Unavailable Taj, Ms. Yojana Maria Isabel Attending Unava ilable Pending, Provider Primary Care Unavailable Taj, Ms. Yojana Nicolas Attending Unava ilable Ginger Lugo Unavailable Unavailable Unavailable Ginger Lugo MD Primary Care Provider Ginger Lugo MD Primary Care Provider LEBRON CROSS Attending Unavailable Pema, Dr. Ginger Alegria Primary Care Unavail able LEBRON CROSS Referring Unavailable LEBRON CROSS Attending Unavailable Pema, Dr. Ginger Alegria Primary Care Unavail able LEBRON CROSS Attending Unavailable Pema, Dr. Ginger Alegria Primary Care Unavail able LEBRON CROSS Referring Unavailable Pema, Dr. Dennis Primary Care Provider Mike, Dr. Roque Attending Provider Dr. Fernandez Bryant Emergency Provider Dr. Gerardo Watkins Admit Provider Dr. Gerardo Watkins Attending Provider Dr. Gerardo Watkins Other Provider Mike, Dr. Roque Other Provider Ginger Lugo MD Primary Care Provider ABILIO GONG Attending Unavailable GINGER LUGO Primary Care Unavailable GINGER LUGO Primary Care Unavailable Ginger Lugo MD Primary Care Provider GINGER LUGO Referring Unavailable GINGER LUGO Primary Care Unavailable Mazin UMBRELLA MENDER.Maryam RUBIO Unavailable Suppan UMBRELLA MENDER.RAMIRO, Nuha A Unavailable RIANNA MEJIA Attending Unavailable GINGER LUGO Primary Care Unavailable PEMA, GINGER Alvares Primary Care Unavailable LEBRON RAPHAEL Attending Unavailable GINGER LUGO Primary Care Unavailable PROVIDER, UNKNOWN Referring Unavailable Suppan UMBRELLA MENDER.MILL PLATFORM SUPERVISOR, Nuha A Unavailable [phone] Suppan UMBRELLA MENDER.RAMIRO, Nuha A Unavailable Pema, Ginger Primary Care Unavailable Pema, Ginger Referring Unavailable Lebron Mackenzie NP Attending Unavailable Pema, Ginger Primary Care Unavailable Josafat Centeno Attending Unavailable DORITAALY Attending Unavailable ACUS, ROCCO Rodríguez Admitting Unavailable PEMA, GINGER Alvares Primary Care Unavailable ACUS, ROCCO W Referring Unavailable ACUS, ROCCO W Admitting Unavailable PEMA, GINGER Alvares Primary Care Unavailable ALYSSIA ROBIN Attending Unavailable ACUS, ROCCO W Referring Unavailable DORITAALY Attending Unavailable ACUS, ROCCO W Admitting Unavailable PEMA, GINGER Alvares Primary Care Unavailable ACUS, ROCCO W Referring Unavailable ACUS, ROCCO W Referring Unavailable DORITAALY Attending Unavailable PEMA, GINGER Alvares Primary Care Unavailable ACUS, ROCCO W Admitting Unavailable TEJA LOPEZ Attending Unavailable ACUS, ROCCO W Referring Unavailable PEMA, GINGER Alvares Primary Care Unavailable ACUS, ROCCO W Admitting Unavailable Pema Ginger REICH Primary Care Provider NUHA MOSQUERA Attending Unavailable PEMA, GINGER Alvares Primary Care Unavailable NUHA MOSQUERA Attending Unavailable PEMA, GINGER Alvares Primary Care Unavailable PEMA, GINGER Alvares Referring Unavailable PEMA, GINGER Alvares Primary Care Unavailable PEMA, GINGER Alvares Attending Unavailable PEMA, GINGER Alvares Primary Care Unavailable JOSE LOO Attending Unavail able PEMA, GINGER Alvares Primary Care Unavailable NUHA MOSQUERA Attending Unavailable PEMA, GINGER Alvares Primary Care Unavailable PEMA, GINGER Alvares Primary Care Unavailable TORSTEN AVILES Attending Unavailable TORSTEN AVILES Referring Unavailable PEMA, GINGER Alvares Referring Unavailable PEMA, GINGER Alvares Primary Care Unavailable PEMA, GINGER Alvares Attending Unavailable PEMA, GINGER Alvares Primary Care Unavailable TORSTEN AVILES Referring Unavailable TORSTEN AVILES Attending Unavailable PEMA, GINGER Alvares Primary Care Unavailable PEMA, GINGER Alvares Primary Care Unavailable TORSTEN AVILES Attending Unavailable PEMA, GINGER ALEGRIA Primary Care Unavailable TORSTEN AVILES Referring Unavailabl SALEEM Bowden Attending Unavailable TORSTEN AVILES Referring Unavailabl e PEMA, GINGER ALEGRIA Primary Care Unavailable TORSTEN AVILES Referring Unavailabl e PEMA, GINGER ALEGRIA Primary Care Unavailable TORSTEN AVILES Referring Unavailabl e PEMA, GINGER ALEGRIA Primary Care Unavailable Medications Current Medications Medication Drug Class(es) Dates Sig (Normalized) Sig (Original) amLODIPine 10 mg oral tablet (20 sources) Dihydropyridine Calcium Channel Shy Start: 05-09-2017 End: 08-25-2024 take 1 tablet by mouth once daily amLODIPine (Norvasc) 10 mg tablet Take 1 tablet (10 mg) by mouth once daily. 08/25/2024 Active Comment on above: Take 1 tablet by anna th once daily. apixaban 2.5 mg oral tablet (1 source) Factor Xa Inhibitor Start: 11-15-2024 take 1 tablet by mouth every twelve hours Eliquis 2.5 mg tablet Take 1 tablet (2.5 mg) by mouth every 12 hours. 11/15/2024 Active aspirin 81 mg delayed release oral tablet (20 sources) Platelet Aggregation Inhibitor, Nonsteroidal Anti-inflammatory Drug Start: 10-13-2022 End: 08-25-2024 take 1 tablet by mouth once daily aspirin 81 mg EC tablet Take 1 tablet (81 mg) by mouth once daily. 08/25/2024 Active Aspir-Low 81 MG TBEC Quantity: 0 Refills: 0 Ordered: 16-Apr-2023 DO Active Comment on above: Take 81 mg by mouth once daily. atorvastatin 40 mg oral tablet (20 sources) HMG-CoA Reductase Inhibitor Start: 06-28-2022 End: 11-06-2024 atorvastatin (Lipitor) 40 mg tablet Take 1 tablet (40 mg) by mouth. 11/07/2024 Active Start: 07-15-2017 End: 10-09-2022 take 1 tablet by mouth once daily at bedtime atorvastatin (LIPITOR) 20 MG tablet Take 1 (one) tablet (20 mg total) by mouth every night at bedtime . 07/15/2017 Active Comment on above: Take 1 tablet by anna th daily at bedtime. For cholesterol. capsaicin 1 mg/ml topical cream (15 sources) Start: 09-15-19 End: 12-15-19 Capsaicin 0.1 % crea Indications: Primary osteoarthritis of left knee Apply to affected area two times a day. 113.2 g 2 09/15/2024 12/14/2024 Active ciprofloxacin 500 mg oral tablet (10 sources) Quinolone Antimicrobial Start: 03-30-20 End: 04-06-20 take 1 tablet by mouth twice daily ciprofloxacin HCl (CIPRO) 500 mg tablet Take 1 tablet by mouth two times a day for 7 days. 14 tablet 0 03/30/2024 04/06/2024 Active Start: 04-16-2023 take 1 tablet by anna twice daily Ciprofloxacin HCl - 500 MG Oral Tablet TAKE 1 TABLET TWICE DAILY. Quantity: 14 Refills: 0 Ordered: 16-Apr-2023 Lebron Cross II, MD Start : 16-Apr-2023 Active COMPOUNDED PRESCRIPTION (20 sources) Start: 06-27-2013 COMPOUNDED PRESCRIPTION Initiate BiPAP @ 22/16 cm of water with humidification mask (per patient preference) optional chin strap (if indicated) and lifetime supplies DX: JOSIAH 327.23 1 Device 0 06/27/2013 Active Comment on above: Initiate BiPAP @ 22/ 16 cm of water with humidification mask (per patient preference) optional chin strap (if indicated) and lifetime supplies DX: JOSIAH 327.23 fidaxomicin 200 mg oral tablet (11 sources) Macrolide Antibacterial Start: 10-24-2023 End: 11-03-2023 take 1 tablet by mouth twice daily fidaxomicin (DIFICID) 200 mg tablet Indications: C. difficile colitis Take 1 tablet by mouth two times a day for 10 days. 20 tablet 0 10/24/2023 11/03/2023 Active Comment on above: Take 1 tablet by anna two times a day for 10 days. folic acid 1 mg oral tablet (20 sources) Start: 04-04-2024 End: 05-23-2025 take 1 tablet by mouth in the morning folic acid (Folvite) 1 mg tablet Take 1 tablet (1 mg) by mouth early in the morning.. 04/23/2025 Active ibuprofen 200 mg oral tablet (1 source) Nonsteroidal Anti-inflammatory Drug take 4 tablets by mouth every six hours as needed ibuprofen 200 mg oral tablet ; 4 tab(s) orally every 6 hours, As Needed - for pain Quantity: 0 Refills: 0 Ordered: 23-Jan-2020 Dang Reina Generic Substitution Allowed iron fum,ps/folic acid/vitC/B3 (IRON FOLATE-F ORAL) (20 sources) iron fum,ps/foli c acid/vitC/B3 (IRON FOLATE-F ORAL) Take by mouth. Active iron fum,ps/foli c acid/vitC/B3 (IRON FOLATE-F ORAL) Take by mouth. 0 Active isosorbide dinitrate 5 mg oral tablet (20 sources) Nitrate Vasodilator Start: 10-13-2022 End: 05-26-2026 take 1 tablet by mouth twice daily isosorbide dinitrate (Isordil) 5 mg tablet Take 1 tablet (5 mg) by mouth twice a day. 10/27/2023 05/26/2026 Active Comment on above: Take 5 mg by mouth t wice daily. Take 1 tablet by anna th two times a day. levothyroxine sodium 0.125 mg oral tablet (20 sources) l-Thyroxine Start: 05-09-2017 End: 04-07-2025 take 1 tablet by mouth once daily levothyroxine (Synthroid, Levoxyl) 125 mcg tablet Take 1 tablet (125 mcg) by mouth once daily. 04/07/2025 Active take 1 tablet by mouth once massimo y levothyroxine 125 mcg (0.125 mg) oral tablet ; 1 tab(s) orally once a day Quantity: 0 Refills: 0 Ordered: 23-Jan-2020 Dang Reina Generic Substitution Allowed Comment on above: Take 1 tablet by anna th once daily. magnesium sulfate 0.0277 meq/ml / potassium sulfate 0.0374 meq/ml / sodium sulfate 0.257 meq/ml oral solution (1 source) Start: 4 End: 4 take 177 mL by mouth once daily sodium sulfate, magnesium sulfate, potassium sulfate (Suprep Bowel Prep Kit) solution Take 177 mL (1 each total) by mouth daily for 2 doses . 354 mL 0 10/29/2023 10/31/2023 Active 24 hr metFORMIN hydrochloride 500 mg extended release oral tablet (20 sources) Biguanide Start: 5 End: 6 take 2 tablets by mouth once daily at breakfast metFORMIN XR 500 mg 24 hr tablet Take 2 tablets (1,000 mg) by mouth once daily with breakfast. 10/24/2024 10/24/2025 Active Start: 09-25-2023 End: 02-10-2025 take 2 tablets by mouth twice daily metFORMIN ER (GLUCOPHAGE XR) 500 mg 24 hr tablet Indications: Controlled type 2 diabetes mellitus without complication, without long-term current use of insulin (HCC) Take 2 tablets by mouth two times a day. 360 tablet 3 02/11/2024 10/24/2024 Discontinued Start: 10-09-2022 take 1000 mg by mout h twice daily Metformin Active 1000 MG PO TWICE A DAY October 09, 2022 12:00am Start: 12-10-2021 End: 06-12-2023 take 2 tablets by mouth twice daily metFORMIN ER (GLUCOPHAGE XR) 500 mg 24 hr tablet Indications: Controlled type 2 diabetes mellitus without complication, without long-term current use of insulin (HCC) Take 2 tablets by mouth twice daily. 360 tablet 3 06/12/2022 03/30/2023 Discontinued Start: 09-02-2021 End: 12-10-2021 take 2 tablets by mouth once daily metFORMIN ER (GLUCOPHAGE XR) 500 mg 24 hr tablet Take 2 tablets by mouth once daily. 60 tablet 2 11/29/2021 12/10/2021 Discontinued Start: 05-10-2021 End: 10-09-2022 take 1000 mg by mouth once daily Metformin Discontinued 1000 MG PO DAILY May 09, 2021 11:00pm October 09, 2022 11:20am take 1 tablet by anna twice daily at mealtime metFORMIN (GLUCOPHAGE) 1000 MG tablet Take 1 (one) tablet (1,000 mg total) by mouth 2 (two) times a day with meals . Active metFORMIN HCl TA BS Quantity: 0 Refills: 0 Ordered: 16-Apr-2023 DO Active Comment on above: Take 2 tablets by mo [facility] once daily. Take 2 tablets by mo [facility] twice daily. Take 2 tablets by mo [facility] two times a day. 24 hr metoprolol succinate 50 mg extended release oral tablet (20 sources) beta-Adrenergic Shy Start: 04-07-2025 take 1 tablet by mouth once daily metoprolol succinate XL (Toprol-XL) 50 mg 24 hr tablet Take 1 tablet (50 mg) by mouth once daily. 04/07/2025 Active Start: 09-11-2023 End: 04-07-2025 take 1 tablet by mouth once daily metoprolol succinate ER (TOPROL XL) 50 mg 24 hr tablet Take 1 tablet by mouth once daily. 90 tablet 04/07/2025 Active Start: 11-29-2021 End: 06-12-2022 take 1 tablet by mouth once daily metoprolol succinate ER (TOPROL XL) 50 mg 24 hr tablet Take 1 tablet by mouth once daily. 90 tablet 3 06/12/2022 Active Start: 05-21-2020 End: 11-19-2020 take 1 tablet by mouth once daily metoprolol succinate ER (TOPROL XL) 50 mg 24 hr tablet Take 1 tablet by mouth once daily. 90 tablet 1 05/21/2020 11/19/2020 Discontinued Start: 07-24-2017 End: 10-13-2022 take 1 tablet by mouth once daily metoprolol succinate (TOPROL-XL) 50 MG 24 hr tablet Take 1 (one) tablet (50 mg total) by mouth daily . 07/24/2017 Active Metoprolol Tartr ate 100 MG Oral Tablet Quantity: 0 Refills: 0 Ordered: 16-Apr-2023 DO Active Comment on above: Take 1 tablet by anna th once daily. PARoxetine hydrochloride 40 mg oral tablet (20 sources) Serotonin Reuptake Inhibitor Start: End: take 1 tablet by mouth once daily PARoxetine (Paxil) 40 mg tablet Take 1 tablet (40 mg) by mouth once daily. 10/11/2024 Active Start: 12-19-2020 End: 10-09-2022 take 30 mg by mouth once daily Paroxetine Hcl Disconti nued 30 MG PO DAILY December 18, 2020 11:00pm October 09, 2022 11:17am Start: 05-21-2020 End: 11-19-2020 take 1 tablet by mouth once daily PARoxetine (PAXIL) 30 mg tablet Take 1 tablet by mouth once daily. 90 tablet 1 05/21/2020 11/19/2020 Discontinued Comment on above: Take 1 tablet by anna th once daily. tirzepatide (MOUNJARO) 2.5 mg/0.5 mL pen injector (15 sources) Start: 10-04-19 End: 10-04-19 inject 2.5 mg by subcutaneous injection every week tirzepatide (MOUNJARO) 2.5 mg/0.5 mL pen injector Indications: Controlled type 2 diabetes mellitus without complication, without long-term current use of insulin (HCC) Inject 2.5 mg subcutaneously one time a week. 2 mL 10/04/2024 10/04/2025 Active tirzepatide 2.5 mg/0.5 mL pen injector (1 source) Start: 10-04-19 End: 10-04-19 inject 2.5 mg by subcutaneous injection every week tirzepatide 2.5 mg/0.5 mL pen injector Inject 2.5 mg under the skin once a week. 10/04/2024 10/04/2025 Active Completed/Discontinued Medications Medication Drug Class(es) Dates Sig (Normalized) Sig (Original) acetaminophen 325 mg / HYDROcodone bitartrate 5 mg oral tablet (7 sources) Opioid Agonist Start: 02-08-2019 End: 02-11-2019 take 1 tablet by mouth every six hours as needed Hydrocodone-Acetami nophen Discontinued 1 TABLET PO EVERY 6 HOURS NEEDED 10 February 07, 2019 11:00pm February 10, 2019 11:08pm acetaminophen 325 mg / oxyCODONE hydrochloride 5 mg oral tablet (6 sources) Opioid Agonist Start: 01-31-2023 End: 10-07-2023 take 1 tablet by mouth every six hours as needed Oxycodone-Acetamino phen Discontinued 1 TABLET PO EVERY 6 HOURS NEEDED 24 01January 31, 2023 October 07, 2023 10:54am Start: 01-26-2022 End: 01-29-2022 take 1 tablet by mouth every six hours as needed for pain oxyCODONE-acetaminophen (PERCOCET) 5-325 mg tablet Indications: Soft tissue injury of left upper arm, initial encounter , Hematoma Take 1 tablet by mouth every 6 hours as needed for pain for up to 3 days. 12 tablet 0 01/26/2022 01/29/2022 Active Comment on above: Take 1 tablet by anna every 6 hours as needed for pain for up to 3 days. [id number] 200 actuat albuterol 0.09 mg/actuat metered dose inhaler (18 sources) beta2-Adrenergic Agonist Start: 12-18-19 21 End: 10-08-19 23 take 2 puff(s) by inhalation every four hours as needed for wheezing albuterol HFA (VENTOLIN HFA) 90 mcg/actuation inhaler Inhale 2 Puffs as instructed every 4 hours as needed for Wheezing/Shortness of Breath. 6.7 g 2020 10/08/2022 Discontinued Comment on above: Inhale 2 Puffs as in structed every 4 hours as needed for Wheezing/Shortness of Breath. amoxicillin 875 mg / clavulanate 125 mg oral tablet (10 sources) Penicillin-class Antibacterial Start: 03-28-20 End: 04-04-20 amoxicillin-clavula alonso potassium (AUGMENTIN) 875-125 mg per tablet Take 1 tablet by mouth two times a day for 7 days. FOR 7 DAYS. 14 tablet 03/28/2024 04/04/2024 Start: 04-20-2023 take 1 tablet by anna th twice daily Amoxicillin-Pot Clavulanate 500-125 MG Oral Tablet Take 1 tablet twice daily Quantity: 14 Refills: 0 Ordered: 20-Apr-2023 Lebron Cross II, MD Start : 20-Apr-2023 Active betamethasone 3 mg/ml / betamethasone acetate 3 mg/ml injectable suspension (2 sources) Corticosteroid Start: 05-06-2024 End: 05-06-2024 betamethasone acetate-betamethasone sodium phosphate 6 mg injection (CELESTONE) Start: 05-06-2024 End: 05-06-2024 6 mg, Injection - FOR ORTHO USE ONLY, ONCE, 1 dose, Starting on Thu05/06/24 at 1437, Until Thu05/06/24 at 1437 Blood-Glucose Meter monitori ng kit (2 sources) Start: 03-28-2024 End: 03-29-2024 Blood-Glucose Meter monitori ng kit Glucose Meter of Choice - Kit - Dx: Type 2 DM - Uncontrolled E11.65 1 Each 03/28/2024 03/29/2024 Start: 03-28-2024 End: 03-29-2024 Blood-Glucose Meter monitori ng kit Glucose Meter of Choice - Kit - Dx: Type 2 DM - Uncontrolled E11.65 1 Each 0 03/28/2024 03/29/2024 Active 30 ml bupivacaine hydrochloride 5 mg/ml injection (4 sources) Amide Local Anesthetic Start: 05-06-2024 End: 05-06-2024 BUPivacaine (PF) 0.5 % (5 mg/mL) 4 mL injection Start: 05-06-2024 End: 05-06-2024 4 mL, Injection - FOR ORTHO USE ONLY, ONCE, 1 dose, Starting on Thu05/06/24 at 1437, Until Thu05/06/24 at 1437 Start: 04-06-2024 End: 04-06-2024 BUPivacaine (PF) 0.5 % (5 mg /mL) 2 mL injection clopidogrel 75 mg oral tablet (20 sources) [id number] Platelet Inhibitor Start: 10-24-2022 End: 10-24-2024 take 1 tablet by mouth once daily clopidogrel (PLAVIX) 75 mg tablet Take 75 mg by mouth once daily. 10/24/2022 10/24/2024 Discontinued (Discontinued by Patient) Clopidogrel Bisu lfate 75 MG Oral Tablet Quantity: 0 Refills: 0 Ordered: 16-Apr-2023 DO Active Comment on above: Take 75 mg by mouth once daily. diclofenac sodium 0.01 mg/mg topical gel (20 sources) Nonsteroidal Anti-inflammatory Drug Start: 2023 End: 2024 diclofenac (VOLTAREN ARTHRITIS PAIN) 1 % topical gel Apply 2 g to affected area four times daily. 100 g 05/04/2024 10/24/2024 Discontinued (Discontinued by Patient) dicyclomine hydrochloride 20 mg oral tablet (7 sources) Anticholinergic Start: 2020 End: 2022 take 20 mg by mouth three times daily Dicyclomine Discontinued 20 MG PO THREE TIMES A DAY May 11, 2021 12:05am October 09, 2022 11:21am docusate sodium 50 mg / sennosides, fpc 8.6 mg oral tablet (3 sources) Start: 2022 End: 2023 take 2 tablets by mouth twice daily as needed Sennosides-Docusate Sodium (Stool Softener-Stimulant Laxat) 8.6-50 mg Tablet Discontinued 2 TABLET PO TWICE DAILY NEEDED 0 March 21, 2023 11:00pm October 07, 2023 10:54am 0.5 ml dulaglutide 1.5 mg/ml auto-injector (9 sources) GLP-1 Receptor Agonist Start: 2022 inject 0.75 mg by subcutaneous injection every week dulaglutide (TRULICITY) 0.75 mg/0.5 mL pen injector Indications: Controlled type 2 diabetes mellitus without complication, without long-term current use of insulin (HCC) Inject 0.75 mg subcutaneously one time a week. 4 Each 5 11/24/2022 Active Start: 10-30-2022 End: 11-22-2022 inject 0.75 mg by subcutaneous injection every week dulaglutide (TRULICITY) 0.75 mg/0.5 mL pen injector Indications: Controlled type 2 diabetes mellitus without complication, without long-term current use of insulin (HCC) Inject 0.75 mg subcutaneously one time a week. 4 Each 5 10/30/2022 11/22/2022 Discontinued Comment on above: Inject 0.75 mg subcu taneously one time a week. ertapenem 1000 mg injection (3 sources) Penem Antibacterial Start: 03-20-20 End: 10-07-19 Ertapenem Discontinued 1 GM IM DAILY March 19, 2023 11:00pm October 07, 2023 10:55am stop date 03/29/23 dx: esbl ecoli pyelo weekly bmp, cbc, and LFT. Fax to [phone] glimepiride 2 mg oral tablet (20 sources) Sulfonylurea Start: 09-28-19 End: 10-24-19 take 1 tablet by mouth once daily at breakfast glimepiride (AMARYL) 2 mg tablet Indications: Controlled type 2 diabetes mellitus without complication, without long-term current use of insulin (HCC) Take 1 tablet by mouth daily with breakfast. 30 tablet 09/28/2023 10/24/2024 Discontinued (Clinical Decision) Start: 09-25-2023 glimepiride (A maryl) 1 mg tablet Take 1 tablet (1 mg) by mouth. 09/25/2023 Active Comment on above: Take 1 tablet by anna th daily with breakfast. 3 ml sodium hyaluronate 20 mg/ml prefilled syringe (2 sources) Start: 08-26-2024 End: 08-26-2024 hyaluronate sodium, stabilized syrg 3 mL (DUROLANE) Start: 08-26-2024 End: 08-26-2024 3 mL, Injection - FOR ORTHO USE ONLY, ONCE, 1 dose, Starting on Thu08/26/24 at 1545, Until Thu08/26/24 at 1545 insulin, regular, human 100 unt/ml injectable solution (1 source) Insulin Start: 09-22-2023 End: 09-22-2023 insulin regular (HumuLIN R) injection 10 Units Start: 09-22-2023 End: 09-22-2023 insulin regular (HumuLIN R) injection 10 Units iohexol (OMNIPaque) 350 mg iodine/mL solution 68 mL (1 source) Start: 09-22-2023 End: 09-22-2023 iohexol (OMNIPaque) 350 mg iodine/mL solution 68 mL 1 ml ketorolac tromethamine 30 mg/ml injection (1 source) Nonsteroidal Anti-inflammatory Drug, Cyclooxygenase Inhibitor Start: 09-22-2023 End: 09-22-2023 ketorolac (Toradol) injection 30 mg 10 ml lidocaine hydrochloride 10 mg/ml injection (6 sources) Antiarrhythmic, Amide Local Anesthetic Start: 08-26-2024 End: 08-26-2024 lidocaine (PF) 10 mg/mL (1 %) 2 mL injection (XYLOCAINE) Start: 08-26-2024 End: 08-26-2024 2 mL, Injection - FOR ORTHO USE ONLY, ONCE, 1 dose, Starting on Thu08/26/24 at 1545, Until Thu08/26/24 at 1545 Start: 05-06-2024 End: 05-06-2024 lidocaine (PF) 10 mg/mL (1 % ) 4 mL injection (XYLOCAINE) Start: 05-06-2024 End: 05-06-2024 4 mL, Injection - FOR ORTHO USE ONLY, ONCE, 1 dose, Starting on Thu05/06/24 at 1437, Until Thu05/06/24 at 1437 Start: 04-06-2024 End: 04-06-2024 lidocaine (PF) 10 mg/mL (1 % ) 2 mL injection (XYLOCAINE) 1 ml methylPREDNISolone acetate 40 mg/ml injection (2 sources) Corticosteroid Start: 04-06-2024 End: 04-06-2024 methylPREDNISolone acetate 40 mg injection (DEPO-Medrol) 24 hr nicotine 0.583 mg/hr transdermal system (12 sources) Cholinergic Nicotinic Agonist Start: 10-30-2022 apply 1 dose transdermal route every twenty-four hours nicotine (NICODERM) 14 mg/24 hr Indications: Tobacco dependence Apply 1 Patch as directed every 24 hours. No smoking with patch. 30 Patch 0 10/30/2022 Active Start: 10-30-2022 apply 1 dose transde rmal route every twenty-four hours nicotine (NICODERM) 21 mg/24 hr Indications: Tobacco dependence Apply 1 Patch as directed every 24 hours. 30 Patch 0 10/30/2022 Active Start: 10-30-2022 nicotine (ALICIA DERM) 7 mg/24 hr Indications: Tobacco dependence Apply 1 Patch as directed every 24 hours. 30 Patch 0 10/30/2022 Active Comment on above: Apply 1 Patch as dir ected every 24 hours. No smoking with patch. Apply 1 Patch as dir ected every 24 hours. nitroglycerin 0.4 mg sublingual tablet (20 sources) Nitrate Vasodilator Start: 09-22-2023 End: 09-22-2023 nitroglycerin (Nitrostat) SL tablet - Omnicell Override Pull Start: 09-22-2023 End: 09-22-2023 nitroglycerin (Nitrostat) SL tablet 0.4 mg Start: 10-24-2022 nitroglycerin (Nitrostat) 0.4 mg SL tablet Nitroglycerin Active 0.4 MG SL Q5M 14 October 24, 2022 12:00am 10/24/2022 Active Start: 10-24-2022 nitroglycerin sublingual (NITROQUICK) 0.4 mg SL tablet Nitroglycerin Active 0.4 MG SL Q5M 14 October 24, 2022 12:00am 0 10/24/2022 Active Start: 10-24-2022 Nitroglycerin Active 0.4 MG SL Q5M 14 October 24, 2022 12:00am Comment on above: Nitroglycerin Active 0.4 MG SL Q5M 14 October 24, 2022 12:00am nystatin 100 unt/mg / triamcinolone acetonide 0.001 mg/mg topical ointment (20 sources) Polyene Antifungal, Corticosteroid Start: 10-09-2022 End: 10-07-2023 Nystatin-Triamcinolone Discontinued 1 APPLIC TOPICAL .COMPLEX October 09, 2022 12:00am October 07, 2023 10:54am 1 applic topically apply sparingly to groin and penile rash twice daily for irritation/infection up to 2 weeks and then take a week off; Start: 10-09-2022 Nystatin-Triam cinolone Active 1 APPLIC TOPICAL .COMPLEX October 09, 2022 1:00am 1 applic topically apply sparingly to groin and penile rash twice daily for irritation/infection up to 2 weeks and then take a week off; Start: 10-09-2022 Nystatin-Triam cinolone Active 1 APPLIC TOPICAL .COMPLEX October 09, 2022 12:00am 1 applic topically apply sparingly to groin and penile rash twice daily for irritation/infection up to 2 weeks and then take a week off; Start: 12-21-2020 End: 10-30-2023 nystatin-triamcinolone (MYCO LOG) ointment Apply sparingly to groin and penile rash twice daily for irritation/infection up to 2 weeks and then take 1 week off. 30 g 06/27/2022 Active Comment on above: Apply sparingly to p erineum twice daily for irritation/infection. Apply sparingly to g roin and penile rash twice daily for irritation/infection up to 2 weeks and then take 1 week off. 2 ml ondansetron 2 mg/ml injection (13 sources) Serotonin-3 Receptor Antagonist Start: 09-22-2023 End: 09-22-2023 ondansetron (Zofran) injection 4 mg Start: 03-04-2023 End: 10-07-2023 take 4 mg by mouth every six hours Ondansetron Discontinued 4 MG PO EVERY 6 HOURS March 03, 2023 11:00pm October 07, 2023 10:54am Start: 05-11-2021 End: 10-09-2022 take 4 mg by mouth every eight hours Ondansetron Discontinued 4 MG PO Q8H May 10, 2021 11:00pm October 09, 2022 11:21am potassium chloride 10 meq extended release oral tablet (13 sources) Start: 11-07-2021 End: 12-09-2021 take 1 tablet by mouth once daily at breakfast potassium chloride (K-TAB) 10 mEq tablet Take 1 tablet by mouth daily with breakfast. 30 tablet 1 11/29/2021 12/09/2021 Discontinued Start: 12-21-2020 End: 10-09-2022 take 20 mEq by mouth once daily Potassium Chloride Discontinued 20 MEQ PO DAILY December 20, 2020 11:00pm October 09, 2022 11:21am Comment on above: Take 1 tablet by anna th daily with breakfast. predniSONE 10 mg oral tablet (9 sources) Start: 08-03-20 End: 09-15-19 take 1 tablet by mouth three times daily, then take 1 tablet by mouth once daily, then take 1 tablet by mouth once daily predniSONE (DELTASONE) 10 mg tablet TAKE BY MOUTH ONE(1) TABLET THREE TIMES DAILY FOR 4 DAYS, THEN TAKE ONE(1) TABLET TWO(2) TIMES DAILY FOR 4 DAYS, THEN TAKE ONE(1) TABLET DAILY. 24 tablet 1 08/03/2024 09/15/2024 Discontinued (Course of therapy completed) 1000 ml sodium chloride 9 mg/ml injection (2 sources) Start: 09-22-19 End: 09-22-19 sodium chloride 0.9 % bolus 1,000 mL traMADol hydrochloride 50 mg oral tablet (6 sources) Opioid Agonist Start: 03-28-20 End: 04-04-20 take 1 tablet by mouth every eight hours as needed for pain traMADol (ULTRAM) 50 mg tablet Indications: Acute pain of left knee , Pain of left lower extremity Take 1 tablet by mouth every 8 hours as needed for pain for up to 7 days. 20 tablet 03/28/2024 04/04/2024 vancomycin 250 mg oral capsule (18 sources) Glycopeptide Antibacterial Start: 03-28-20 End: 04-11-20 take 1 capsule by mouth once daily vancomycin (VANCOCIN HCL) 250 mg capsule Indications: Ingrown toenail , History of Clostridioides difficile colitis Take 1 capsule by mouth once daily for 14 days. 14 capsule 03/28/2024 04/11/2024 Start: 10-09-2023 End: 10-30-2023 take 1 capsule by mouth four times daily vancomycin (VANCOCIN) 125 mg capsule Take 125 mg by mouth four times daily. 0 10/09/2023 10/30/2023 Discontinued Comment on above: Take 125 mg by mouth four times daily. Problems Active Problems Problem Classification Problem Date Documented Da te Episodic/Chronic Adjustment disorders (20 sources) Stress; Translations: [Reaction to severe stress, unspecified] Onset: 06-17-2022 Chronic Anxiety disorders (20 sources) Generalized anxiety disorder; Translations: [Generalized anxiety disorder] Onset: 06-17-2022 Chronic Chronic obstructive pulmonary disease and bronchiectasis (1 source) Bronchitis, not specified as acute or chronic; Translations: [Bronchitis, not specified as acute or chronic] Onset: 01-16-2024 Episodic Complication of device; implant or graft (5 sources) Loosening of total knee replacement; Translations: [Mechanical loosening of internal left knee prosthetic joint, initial encounter] Onset: 12-13-2024 11-28-2024 Episodic Conditions associated with dizziness or vertigo (1 source) Dizziness; Translations: [Dizziness and giddiness] 11-07-2024 Episodic Coronary atherosclerosis and other heart disease (20 sources) Coronary arteriosclerosis; Translations: [Atherosclerotic heart disease of [place] coronary artery without angina pectoris] Onset: 10-13-2022 Resolved: 03-28-2024 10-25-2022 Chronic Deficiency and other anemia (1 source) Anemia; Translations: [Anemia, unspecified] 10-26-2023 Episodic Diabetes mellitus without complication (20 sources) Type 2 diabetes mellitus without complication; Translations: [Type 2 diabetes mellitus without complications] Onset: 03-25-2021 03-25-2021 Chronic Diseases of white blood cells (20 sources) Leukocytosis; Translations: [Elevated white blood cell count, unspecified] Onset: 09-19-2011 Resolved: 03-28-2024 09-02-2021 Chronic Disorders of lipid metabolism (20 sources) Hyperlipidemia; Translations: [Hyperlipidemia, unspecified] Onset: 09-14-2006 Chronic Essential hypertension (20 sources) Benign essential hypertension; Translations: [Essential (primary) hypertension] Onset: 02-06-2010 Chronic Fracture of lower limb (2 sources) Closed fracture of distal phalanx of great toe; Translations: [Nondisplaced fracture of distal phalanx of right great toe, initial encounter for closed fracture] 04-01-2024 Episodic Genitourinary symptoms and ill-defined conditions (20 sources) Urinary incontinence; Translations: [Unspecified urinary incontinence] Onset: 06-13-2015 06-13-2015 Chronic Hyperplasia of prostate (20 sources) Benign prostatic hypertrophy with outflow obstruction; Translations: [Benign localized hyperplasia of prostate with urinary obstruction and other lower urinary tract symptoms (LUTS)] Onset: 10-06-2023 10-06-2023 Chronic Intestinal infection (3 sources) Clostridium difficile colitis; Translations: [Enterocolitis due to Clostridium difficile, not specified as recurrent] 10-16-2023 Episodic Malaise and fatigue (7 sources) Asthenia; Translations: [Weakness] 12-18-2020 Episodic Mood disorders (20 sources) Depressive disorder; Translations: [Depression] Onset: 10-06-2023 10-09-2022 Chronic Nonspecific chest pain (18 sources) Chest pain; Translations: [Chest pain, unspecified] Onset: 10-07-2022 Episodic Open wounds of extremities (2 sources) Open wound of toe; Translations: [Unspecified open wound of unspecified toe(s) without damage to nail, initial encounter] 04-01-2024 Episodic Osteoarthritis (16 sources) Osteoarthritis of left knee joint; Translations: [Unilateral primary osteoarthritis, left knee] Onset: 06-09-2024 08-03-2024 Chronic Other circulatory disease (7 sources) H/O: heart disorder; Translations: [Personal history of other diseases of the circulatory system] 03-04-2023 Episodic Other circulatory disease (2 sources) Personal history of other diseases of the circulatory system; Translations: [Personal history of other diseases of circulatory system] 10-07-2023 Episodic Other complications of (20 sources) Maternal tobacco use; Translations: [Tobacco use disorder complicating , childbirth, or the puerperium, unspecified as to episode of care or not applicable] 01-21-2010 Episodic Other connective tissue disease (10 sources) History of total knee arthroplasty; Translations: [Presence of left artificial knee joint] Onset: 12-13-2024 12-13-2024 Chronic Other connective tissue disease (3 sources) Presence of left artificial knee joint; Translations: [Presence of left artificial knee joint] Onset: 12-13-2024 Chronic Other connective tissue disease (1 source) Prepatellar bursitis of right knee; Translations: [Prepatellar bursitis, right knee] Episodic Other connective tissue disease (4 sources) Pain in left lower limb; Translations: [Pain in left leg] 03-28-2024 Episodic Other connective tissue disease (1 source) Pain in left leg; Translations: [Pain of left lower extremity] Onset: 03-29-2024 Episodic Other endocrine disorders (1 source) Hypoglycemia; Translations: [Hypoglycemia, unspecified] 11-07-2024 Chronic Other gastrointestinal disorders (1 source) Diarrhea; Translations: [Diarrhea, unspecified] 10-29-2023 Episodic Other infections; including parasitic (1 source) History of Clostridium difficile intestinal infection; Translations: [Personal history of other infectious and parasitic diseases] 03-28-2024 Episodic Other male genital disorders (20 sources) Male erectile dysfunction, unspecified; Translations: [Erectile dysfunction] Onset: 10-06-2023 10-06-2023 Chronic Other non-traumatic joint disorders (14 sources) Pain in left knee; Translations: [Pain in joint, lower leg] Onset: 03-29-2024 03-28-2024 Episodic Other non-traumatic joint disorders (1 source) Chronic pain of left upper limb; Translations: [Pain in left shoulder] 12-03-2021 Episodic Other non-traumatic joint disorders (4 sources) Pain in right knee; Translations: [Pain in joint, lower leg] Onset: 09-19-2024 09-15-2024 Episodic Other nutritional; endocrine; and metabolic disorders (20 sources) Body mass index 40+ - severely obese; Translations: [Morbid (severe) obesity due to excess calories] Onset: 06-17-2022 Chronic Other nutritional; endocrine; and metabolic disorders (7 sources) Obesity; Translations: [Obesity, unspecified] 02-08-2019 Chronic Other nutritional; endocrine; and metabolic disorders (4 sources) Obesity, unspecified; Translations: [Obesity, unspecified] 10-13-2022 Chronic Other nutritional; endocrine; and metabolic disorders (2 sources) Morbid (severe) obesity due to excess calories; Translations: [Morbid (severe) obesity due to excess calories] Onset: 06-17-2022 Chronic Other nutritional; endocrine; and metabolic disorders (1 source) Body mass index (BMI) 40.0-44.9, adult; Translations: [Body mass index [BMI] 40.0-44.9, adult] Onset: 10-07-2022 Chronic Other nutritional; endocrine; and metabolic disorders (9 sources) Overweight; Translations: [Overweight] 01-21-2010 Episodic Other screening for suspected conditions (not mental disorders or infectious disease) (5 sources) Patient encounter status; Translations: [Encounter for screening for malignant neoplasm of colon] Episodic Other skin disorders (1 source) Ingrowing toenail; Translations: [Ingrowing nail] 03-28-2024 Episodic Other skin disorders (2 sources) Infection of toenail; Translations: [Ingrowing nail] 03-28-2024 Episodic Residual codes; unclassified (20 sources) Central sleep apnea syndrome; Translations: [Primary central sleep apnea] Onset: 04-02-2018 04-02-2018 Chronic Residual codes; unclassified (20 sources) Obstructive sleep apnea syndrome; Translations: [Obstructive sleep apnea (adult) (pediatric)] Onset: 06-17-2022 Chronic Residual codes; unclassified (5 sources) Obstructive sleep apnea (adult) (pediatric); Translations: [Obstructive sleep apnea (adult)(pediatric)] Onset: 06-28-2022 10-13-2022 Chronic Residual codes; unclassified (1 source) Primary central sleep apnea; Translations: [Central sleep apnea] Onset: 04-02-2018 Chronic Residual codes; unclassified (16 sources) FH: Cardiovascular disease; Translations: [Family history of other cardiovascular diseases] 01-21-2010 Episodic Residual codes; unclassified (1 source) Did not attend; Translations: [No-show for appointment] Episodic Residual codes; unclassified (20 sources) Family history of cardiac disorder; Translations: [Family history of ischemic heart disease and other diseases of the circulatory system] Episodic Residual codes; unclassified (2 sources) Edema of lower extremity; Translations: [Localized edema] 03-28-2024 Episodic Residual codes; unclassified (1 source) Localized edema; Translations: [Edema of leg] Onset: 03-29-2024 Episodic Spondylosis; intervertebral disc disorders; other back problems (20 sources) Intervertebral disc disorder of cervical region with myelopathy; Translations: [Cervical disc disorder with myelopathy, cervicothoracic region] Onset: 05-08-2015 05-08-2015 Chronic Substance-related disorders (20 sources) Tobacco dependence syndrome; Translations: [Nicotine dependence, unspecified, uncomplicated] Onset: 10-13-2022 02-08-2019 Chronic Syncope (14 sources) Witnessed syncope; Translations: [Syncope and collapse] Onset: 10-07-2022 10-07-2022 Episodic Syncope (1 source) Syncope 10-07-2022 Thyroid disorders (20 sources) Hypothyroidism; Translations: [Hypothyroidism, unspecified] Onset: 10-09-2009 04-23-2018 Chronic Thyroid disorders (5 sources) Disorder of thyroid gland; Translations: [Disorder of thyroid, unspecified] Episodic Unclassified (2 sources) SYNOPAL 10-07-2022 Comment on above: SYNOPAL Past or Other Problems Problem Classification Problem Date Documented Date Episodic/Chronic Abdominal pain (20 sources) Right lower quadrant pain; Translations: [Right lower quadrant pain] Onset: 10-07-2022 Resolved: 03-28-2024 02-09-2019 Episodic Bacterial infection; unspecified site (20 sources) Infection due to ESBL Escherichia coli; Translations: [Other bacterial infections of unspecified site] Onset: 03-22-2023 Resolved: 03-28-2024 03-20-2023 Episodic Calculus of urinary tract (20 sources) Ureteric stone; Translations: [Calculus of ureter] Onset: 10-06-2023 12-19-2020 Episodic Coronary atherosclerosis and other heart disease (20 sources) Patient post percutaneous transluminal coronary angioplasty; Translations: [Coronary angioplasty status] Onset: 10-08-2022 01-24-2023 Episodic Diabetes mellitus with complications (20 sources) Hyperglycemia due to type 2 diabetes mellitus; Translations: [Type 2 diabetes mellitus with hyperglycemia] Onset: 10-06-2023 Resolved: 03-28-2024 02-08-2023 Chronic Diabetes mellitus without complication (20 sources) Hyperglycemia; Translations: [Hyperglycemia, unspecified] Onset: 10-06-2023 Resolved: 03-28-2024 09-22-2023 Episodic Fluid and electrolyte disorders (20 sources) Lactic acidosis; Translations: [Lactic acidosis] Onset: 10-06-2023 Resolved: 03-28-2024 09-22-2023 Episodic Genitourinary symptoms and ill-defined conditions (20 sources) Nocturia; Translations: [Nocturia] Onset: 06-13-2015 Resolved: 03-28-2024 06-13-2015 Episodic Immunizations and screening for infectious disease (6 sources) Hepatitis B screening required; Translations: [Encounter for screening for other viral diseases] Onset: 08-09-2024 Episodic Intracranial injury (20 sources) Concussion with no loss of consciousness; Translations: [Concussion without loss of consciousness, initial encounter] Onset: 05-08-2015 Resolved: 04-23-2018 04-23-2018 Episodic Nausea and vomiting (20 sources) Nausea, vomiting and diarrhea; Translations: [Nausea with vomiting, unspecified] Onset: 03-21-2023 Resolved: 03-28-2024 10-09-2022 Episodic Noninfectious gastroenteritis (20 sources) Colitis; Translations: [Noninfective gastroenteritis and colitis, unspecified] Onset: 10-06-2023 Resolved: 03-28-2024 10-09-2022 Episodic Nutritional deficiencies (20 sources) Folic acid deficiency; Translations: [Deficiency of other specified B group vitamins] Onset: 04-04-2024 04-04-2024 Episodic Other aftercare (1 source) 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; Translations: [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] Onset: 10-07-2022 Episodic Other connective tissue disease (20 sources) Cramp; Translations: [Cramp and spasm] Onset: 10-06-2023 Resolved: 03-28-2024 02-08-2019 Episodic Other diseases of kidney and ureters (20 sources) Acute renal insufficiency; Translations: [Disorder of kidney and ureter, unspecified] Onset: 10-06-2023 Resolved: 03-28-2024 02-08-2023 Episodic Other diseases of kidney and ureters (20 sources) Hydronephrosis with renal and ureteral calculous obstruction; Translations: [Hydronephrosis with urinary obstruction due to ureteral calculus] Onset: 10-06-2023 02-08-2023 Episodic Other liver diseases (20 sources) Elevated liver enzymes level; Translations: [Abnormal levels of other serum enzymes] Onset: 10-06-2023 10-09-2022 Episodic Other non-traumatic joint disorders (20 sources) Soft tissue lesion of shoulder region; Translations: [Other specified joint disorders, unspecified shoulder] Onset: 01-27-2007 Resolved: 01-02-2009 01-02-2009 Episodic Other non-traumatic joint disorders (20 sources) Arthralgia of the pelvic region and thigh; Translations: [Pain in unspecified hip] Onset: 06-27-2008 Resolved: 01-02-2009 01-02-2009 Episodic Other non-traumatic joint disorders (20 sources) Arthralgia of the upper arm; Translations: [Pain in unspecified elbow] Onset: 06-27-2008 Resolved: 06-27-2008 06-27-2008 Episodic Other non-traumatic joint disorders (20 sources) Shoulder joint pain; Translations: [Pain in unspecified shoulder] Onset: 06-27-2008 Resolved: 01-02-2009 01-02-2009 Episodic Other non-traumatic joint disorders (6 sources) Pain in upper arm; Translations: [Pain in unspecified elbow] Onset: 06-27-2008 Resolved: 06-27-2008 06-27-2008 Episodic Other nutritional; endocrine; and metabolic disorders (20 sources) Overweight; Translations: [Overweight] Resolved: 09-25-2023 06-17-2022 Episodic Other nutritional; endocrine; and metabolic disorders (20 sources) H/O: diabetes mellitus; Translations: [Personal history of other endocrine, nutritional and metabolic disease] Onset: 10-06-2023 Resolved: 03-28-2024 03-04-2023 Episodic Other upper respiratory infections (3 sources) Acute upper respiratory infection; Translations: [Acute upper respiratory infection, unspecified] Onset: 09-23-2023 Episodic Residual codes; unclassified (1 source) Family history of ischemic heart disease and other diseases of the circulatory system; Translations: [Family hx of ischem heart dis and oth dis of the circ sys] Onset: 10-07-2022 Episodic Septicemia (except in labor) (20 sources) Sepsis; Translations: [Sepsis, unspecified organism] Onset: 04-02-2023 Resolved: 01-08-2024 10-09-2022 Episodic Spondylosis; intervertebral disc disorders; other back problems (20 sources) Neck pain; Translations: [Cervicalgia] Onset: 02-23-2009 Resolved: 03-28-2024 04-20-2015 Episodic Sprains and strains (20 sources) Lumbar sprain; Translations: [Sprain of ligaments of lumbar spine, initial encounter] Onset: 06-27-2008 Resolved: 12-14-2013 01-02-2009 Episodic Superficial injury; contusion (20 sources) Contusion of upper arm; Translations: [Other specified aftercare] Onset: 04-14-2022 Resolved: 03-28-2024 10-06-2023 Episodic Unclassified (20 sources) Increased frequency of urination; Translations: [Frequency] Onset: 06-13-2015 Resolved: 04-23-2018 04-23-2018 Unclassified (1 source) Onset: 06-09-2024 06-09-2024 Urinary tract infections (20 sources) Pyelonephritis; Translations: [Tubulo-interstitial nephritis, not specified as acute or chronic] Onset: 03-22-2023 Resolved: 03-28-2024 03-18-2023 Episodic Viral infection (20 sources) Viral disease; Translations: [Viral infection, unspecified] Onset: 10-06-2023 Resolved: 03-28-2024 03-04-2023 Episodic Results Test Name Value Interpretation Reference Range Facility [facility]26[facility]20[facility] NICK LOPES ([id number]) 1970 M [facility] Date Time Provider Department 05/26/25 3:00 PM [facility] V [facility] During your visit today, we recorded the following information about you: Mary Dale MA 05/26/2025 3:15 PM Signed AMB ROOMING 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 Nick reports right knee pain localized to the medial joint line, which is exacerbated by weight-bearing activities such as ascending and descending stairs. He inquires about the potential benefit of a brace to assist with stair navigation. He denies noticeable swelling in the right knee. He has been using capsaicin cream, which provides relief but causes discomfort when he sweats at work. He has also tried Voltaren gel without significant benefit. He denies using any other topical treatments. Nick has a history of left total knee arthroplasty performed on 11/15, which he reports has been successful with only occasional soreness. He notes that prior to the surgery, he had received corticosteroid injections and hyaluronic acid injections without relief. He attributes his current right knee pain to favoring his left knee before the surgery. Musculoskeletal: (+) right medial knee pain, (+) right knee pain with weight bearing, (+) right knee pain climbing stairs, (+) occasional left knee soreness, (-) noticeable right knee swelling Skin: (+) burning skin sensation at capsaicin application site during sweating Objective There were no vitals taken for this visit. General: No acute distress. MSK/Ext: Left knee with well-healed surgical scar, no bruising noted; right knee with tenderness along the medial joint line, pain elicited with weight bearing and shifting weight onto the right leg. Assessment AND Plan 1. Acute pain of right knee (M25.561) 2. Primary osteoarthritis of right knee (M17.11) Persistent medial joint line pain in the right knee consistent with primary osteoarthritis; prior imaging from September shows preserved joint space compared to preoperative left knee. - Administered intra-articular corticosteroid injection to the right knee. - Fitted patient for a medial ballistics laboratory gunsmith brace to reduce pressure on the affected compartment. - Advised continued use of topical agents (Icy Hot, capsaicin cream) and discussed combining with Voltaren gel for additional relief; instructed on proper application technique and precautions to avoid contact with eyes. - Advised patient to avoid overexertion and to use the brace during activities that involve prolonged walking or standing. 3. Presence of left artificial knee joint (Z96.652) Patient is approximately 6 months post left total knee arthroplasty with good surgical outcome and improving function. - Continue current post-operative care. Large Joint Arthro/Inj: R knee joint 05/26/2025 3:14 PM The procedure site was prepped in the usual sterile fashion. Site: R knee joint Medications: 4 mg dexAMETHasone sodium phosphate 4 mg/mL; 40 mg triamcinolone acetonide 40 mg/mL Anesthetics: 4 mL lidocaine (PF) 10 mg/mL (1 %); 4 mL BUPivacaine (PF) 0.5 % (5 mg/mL) Outcome: Tolerated well, no immediate complications Post-injection instructions were reviewed with the patient and the patient voiced understanding of these instructions. Informed Consent Consent Obtained: Verbal [place] Protocol SIGN IN TIME OUT Recording using [employer] software for draft documentation of the visit was discussed with the patient/authorized membership sales representative; all questions welcomed and answered. Patient/authorized membership sales representative agreed to proceed Mary Dale MA 05/26/2025 3:32 PM Signed PT ASSESSMENT - CASTING ROOM Nick presents for Application of brace. 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 Patient electronically signed Mike DANGELO. Patient has been instructed in Care and proper application of brace. Mary Dale MA Allergies As of Date: 05/26/2025 (No Known Allergies) Date Reviewed: 05/26/2025 Reviewed by: Mary Dale MA - Fully Assessed Reason for Visit: Right Knee Pain [1209] Visit Diagnoses:Acute pain of right knee [M25.561] Primary osteoarthritis of right knee [M17.11] Presence of left artificial knee joint [Z96.652] Order(s):Large Joint Arthro/Inj: R knee joint [LEK407] Order #: [id number] [] BUPivacaine (PF) 0.5 % (5 mg/mL) 4 mL injectionDisp: Rfl: [] lidocaine (PF) 10 mg/m (more content not included)... [facility] NICK LOPES ([id number]) 1970 [facility] Date Time Provider Department 02/08/25 GINGER LUGO [facility] During your visit today, we recorded the following information about you: Asha Sy LPN 02/08/2025 11:00 AM Signed Sent patient no show letter #1 Allergies As of Date: 02/08/2025 (No Known Allergies) Date Reviewed: 10/24/2024 Reviewed by: Nuha Mosquera APRN.MILL PLATFORM SUPERVISOR - Fully Assessed Reason for Visit: Letter [264] Cmt: No show #1 Prescriptions as of 02/08/2025 - isosorbide dinitrate (ISORDIL) 5 mg tablet Take 1 tablet by mouth two times a day. - atorvastatin (LIPITOR) 40 mg tablet Take 1 tablet by mouth daily at bedtime. For cholesterol. - metFORMIN ER (GLUCOPHAGE XR) 500 mg 24 hr tablet Take 2 tablets by mouth daily with breakfast. - PARoxetine (PAXIL) 40 mg tablet Take 1 tablet by mouth once daily. - tirzepatide (MOUNJARO) 2.5 mg/0.5 mL pen injector Inject 2.5 mg subcutaneously one time a week. - amLODIPine (NORVASC) 10 mg tablet Take 1 tablet by mouth once daily. - aspirin, enteric coated (ASPIRIN, ENTERIC COATED) 81 mg EC tablet Take 1 tablet by mouth once daily. - levothyroxine (SYNTHROID) 125 mcg tablet Take 1 tablet by mouth once daily. - folic acid 1 mg tablet Take 1 tablet by mouth once daily. - iron fum,ps/folic acid/vitC/B3 (IRON FOLATE-F ORAL) Take by mouth. - blood sugar diagnostic (BLOOD GLUCOSE TEST) test strip Test blood sugar(s) 1 times daily. Dx: Type 2 DM - Uncontrolled E11.65 Insulin: No - Lancets Test blood sugar(s) 1 times daily. Dx: Type 2 DM - Uncontrolled E11.65 Insulin: No - metoprolol succinate ER (TOPROL XL) 50 mg 24 hr tablet Take 1 tablet by mouth once daily. - Lancets lancets Test blood sugar(s) 1 times daily. Dx: Type 2 DM - Controlled E11.9 Insulin: No - blood sugar diagnostic (BLOOD GLUCOSE TEST) test strip Test blood sugar(s) 1 times daily. Dx: Type 2 DM - Controlled E11.9 Insulin: No - nitroglycerin sublingual (NITROQUICK) 0.4 mg SL tablet Nitroglycerin Active 0.4 MG SL Q5M October 24, 2022 12:00am - nystatin-triamcinolone (MYCOLOG) ointment Apply sparingly to groin and penile rash twice daily for irritation/infection up to 2 weeks and then take 1 week off. - COMPOUNDED PRESCRIPTION Initiate BiPAP @ 22/16 cm of water with humidification mask (per patient preference) optional chin strap (if indicated) and lifetime supplies DX: JOSIAH 327.23 Problem List As Of Date 02/08/2025 Noted Resolved Hyperlipidemia [E78.5] 09/14/2006 Family history of heart disease [Z82.49] Overweight [E66.3] 09/25/2023 Tobacco Use Disord-Unsp [MKW2922] SHOULDER REGION DIS NEC [M25.819] 01/27/2007 01/02/2009 JOINT PAIN-PELVIS [M25.559] 06/27/2008 01/02/2009 SPRAIN LUMBAR REGION [S33.5XXA] 06/27/2008 01/02/2009 JOINT PAIN-UP/ARM [M25.529] 06/27/2008 06/27/2008 JOINT PAIN-SHLDER [M25.519] 06/27/2008 01/02/2009 Routine General Medical Examination at [facility]*01/02/2009 12/14/2013 Class: Chronic Thoracic or Lumbosacral Neuritis or Radiculitis*02/23/2009 12/14/2013 Hypothyroidism [E03.9] 10/09/2009 Essential hypertension, benign [I10] 02/06/2010 Leukocytosis [D72.829] 09/19/2011 03/28/2024 Sprain of lumbar region [S33.5XXA] 10/18/2012 12/14/2013 Backache, unspecified [M54.9] 11/11/2012 12/14/2013 Cervicalgia [M54.2] 04/20/2015 Lumbago [M54.50] 04/20/2015 03/28/2024 Concussion without loss of consciousness [S06.0*05/08/2015 04/23/2018 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*05/08/2015 Urinary incontinence [R32] 06/13/2015 Frequency [LKR5498] 06/13/2015 04/23/2018 Urgency of urination [R39.15] 06/13/2015 04/23/2018 Nocturia [R35.1] 06/13/2015 03/28/2024 Central sleep apnea [G47.31] 04/02/2018 Diabetes mellitus type 2, controlled, without c*03/25/2021 Obesity, Class III, BMI 40-49.9 (morbid obesity*06/17/2022 Situational stress [F43.9] 06/17/2022 THEO (generalized anxiety disorder) [F41.1] 06/17/2022 JOSIAH (obstructive sleep apnea) [G47.33] 06/17/2022 DDD (degenerative disc disease), lumbar [M51.36*06/28/2022 Spinal stenosis of lumbar region without neurog*06/28/2022 Cervical stenosis of spine [M48.02] 06/28/2022 Coronary artery disease involving [place] fagan*01/24/2023 S/P PTCA (percutaneous transluminal coronary an*01/24/2023 Status post insertion of drug-eluting stent int*01/24/2023 Acute renal insufficiency [N28.9] 10/06/2023 03/28/2024 Diagnosed: 10/06/2023 Benign prostatic hyperplasia with urinary obstr*10/06/2023 Diagnosed: 10/06/2023 Calculus of ureter [N20.1] 10/06/2023 Diagnosed: 10/06/2023 Colitis [K52.9] 10/06/2023 03/28/2024 Diagnosed: 10/06/2023 Contusion of upper arm [S40.029A] 04/14/2022 03/28/2024 Diagnosed: 10/06/2023 Depressive disorder [F32.A] 10/06/2023 Diagnosed: 10/06/2023 Elevated liver enzymes [R74.8] 10/06/2023 Diagnosed: 10/06/2023 Erectile dysfunction (more content not included)... Normal [facility]COon 01-11-2025 CNCO Letter Text Normal [facility]NPNon 01-04-2025 [facility] ([id number]) 1970 [facility] Date Time Provider Department 01/04/25 [facility] During your visit today, we recorded the following information about you: Jen Young 01/04/2025 2:48 PM Signed Patient has been identified by name and date of : Yes Spouse phones for refill(s): glimepiride (AMARYL) 1 mg tablet Eliquis - both not in current refill list Date of last office visit in primary care: 10/04/2024 Date of next office visit in primary care: 02/08/2025 Please advise. Thank you. Jen Young. Jyoti Somers MA 01/04/2025 3:23 PM Signed Left message patient to call back and speak to nurse on triage. Glimepiride was d/c in October per office note done by cardiology. ROS: Having knee replacement and wanted to lose weight. Started on keto diet. Lost 30 lb. BSS down to 60. Gave up pop. So he drank a soda. BSS dropped to 50. Ate a fried chicken breast. Getting really dizzy. Tirzepatide or Mounjaro unable to afford. Stopped metformin because boss told him to. Cardiology took him off glimepiride 2 weeks ago [facility] to prevent clots so will need to call ortho office to see if continue . HOWIE Cruz Lisa, MA 01/10/2025 11:44 AM Signed See nurse triage 01/05/25 Allergies As of Date: 01/04/2025 (No Known Allergies) Date Reviewed: 10/24/2024 Reviewed by: Nuha Mosquera APRN.MILL PLATFORM SUPERVISOR - Fully Assessed Reason for Visit: Refill Request [94] Prescriptions as of 01/10/2025 - isosorbide dinitrate (ISORDIL) 5 mg tablet Take 1 tablet by mouth two times a day. - atorvastatin (LIPITOR) 40 mg tablet Take 1 tablet by mouth daily at bedtime. For cholesterol. - metFORMIN ER (GLUCOPHAGE XR) 500 mg 24 hr tablet Take 2 tablets by mouth daily with breakfast. - PARoxetine (PAXIL) 40 mg tablet Take 1 tablet by mouth once daily. - tirzepatide (MOUNJARO) 2.5 mg/0.5 mL pen injector Inject 2.5 mg subcutaneously one time a week. - amLODIPine (NORVASC) 10 mg tablet Take 1 tablet by mouth once daily. - aspirin, enteric coated (ASPIRIN, ENTERIC COATED) 81 mg EC tablet Take 1 tablet by mouth once daily. - levothyroxine (SYNTHROID) 125 mcg tablet Take 1 tablet by mouth once daily. - folic acid 1 mg tablet Take 1 tablet by mouth once daily. - iron fum,ps/folic acid/vitC/B3 (IRON FOLATE-F ORAL) Take by mouth. - blood sugar diagnostic (BLOOD GLUCOSE TEST) test strip Test blood sugar(s) 1 times daily. Dx: Type 2 DM - Uncontrolled E11.65 Insulin: No - Lancets Test blood sugar(s) 1 times daily. Dx: Type 2 DM - Uncontrolled E11.65 Insulin: No - metoprolol succinate ER (TOPROL XL) 50 mg 24 hr tablet Take 1 tablet by mouth once daily. - Lancets lancets Test blood sugar(s) 1 times daily. Dx: Type 2 DM - Controlled E11.9 Insulin: No - blood sugar diagnostic (BLOOD GLUCOSE TEST) test strip Test blood sugar(s) 1 times daily. Dx: Type 2 DM - Controlled E11.9 Insulin: No - nitroglycerin sublingual (NITROQUICK) 0.4 mg SL tablet Nitroglycerin Active 0.4 MG SL Q5M October 24, 2022 12:00am - nystatin-triamcinolone (MYCOLOG) ointment Apply sparingly to groin and penile rash twice daily for irritation/infection up to 2 weeks and then take 1 week off. - COMPOUNDED PRESCRIPTION Initiate BiPAP @ 22/16 cm of water with humidification mask (per patient preference) optional chin strap (if indicated) and lifetime supplies DX: JOSIAH 327.23 Problem List As Of Date 01/04/2025 Noted Resolved Hyperlipidemia [E78.5] 09/14/2006 Family history of heart disease [Z82.49] Overweight [E66.3] 09/25/2023 Tobacco Use Disord-Unsp [IGJ1509] SHOULDER REGION DIS NEC [M25.819] 01/27/2007 01/02/2009 JOINT PAIN-PELVIS [M25.559] 06/27/2008 01/02/2009 SPRAIN LUMBAR REGION [S33.5XXA] 06/27/2008 01/02/2009 JOINT PAIN-UP/ARM [M25.529] 06/27/2008 06/27/2008 JOINT PAIN-SHLDER [M25.519] 06/27/2008 01/02/2009 Routine General Medical Examination at [facility]*01/02/2009 12/14/2013 Class: Chronic Thoracic or Lumbosacral Neuritis or Radiculitis*02/23/2009 12/14/2013 Hypothyroidism [E03.9] 10/09/2009 Essential hypertension, benign [I10] 02/06/2010 Leukocytosis [D72.829] 09/19/2011 03/28/2024 Sprain of lumbar region [S33.5XXA] 10/18/2012 12/14/2013 Backache, unspecified [M54.9] 11/11/2012 12/14/2013 Cervicalgia [M54.2] 04/20/2015 Lumbago [M54.50] 04/20/2015 03/28/2024 Concussion without loss of consciousness [S06.0*05/08/2015 04/23/2018 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*05/08/2015 Urinary incontinence [R32] 06/13/2015 Frequency [JFX9258] 06/13/2015 04/23/2018 Urgency of urination [R39.15] 06/13/2015 04/23/2018 Nocturia [R35.1] 06/13/2015 03/28/2024 Central sleep apnea [G47.31] 04/02/2018 Diabetes mellitus type 2, controlled, without c*03/25/2021 Obesity, Class III, BMI 40-49.9 (morbid obesity (more content not included)... Normal [facility] 12 Lead EKG performed by [facility] on 10-14-2024 12 Lead EKG performed by [id number] [place] [address] 12 Lead EKG performed by [facility] 10/14/24 1556 MR#: [id number] Acct: [id number] Name: ROMEL LOPES Rep #: [id number] : 1970 53 From: Lebron Mackenzie KAIWHAKAHAERE KAIWHAKAHAERE-C Attending Dr: Lebron Mackenzie NP-C Status: DEP AMB Ordering Dr: Lebron Mackenzie KAIWHAKAHAERE KAIWHAKAHAERE-C Date: 10/14/24 Location: [facility] Sex: M C Admitted: BMS/12 Lead EKG performed by [facility] ECG Report Interpretation ---Sinus Rhythm -RSR(V1) -nondiagnostic. PROBABLY NORMALElectronically signed on 10/19/2024 at 09:38 by Zheng [employer] Version 2051 10/19/24 0944 Date Lebron DAI CC: Dr. Ginger Lugo MD Date Dictated: 10/14/24 1556 Date Transcribed: 10/14/241555 Professional Bass Fisher: ELLIOT Signed Normal [facility] Cardiology Visit Reporton Cardiology Visit Report [facility] [address] [place] [address] OFFICE VISIT Date of Service: 10/14/24 MR#: [id number] Acct: [id number] Name: ROMEL LOPES Rep #: [id number] : 1970 Provider: MALAIKA castillo Age/Sex: 53/M Location: [facility] Status: Signed HPI HPI History of Present Illness Details: This is a 53-year-old male who presents to the office today for a cardiovascular outpatient follow- up and cardiac clearance for knee surgery. He has a past medical history of coronary artery disease with stenting to mid LAD and October 2022, hypertension, hyperlipidemia, obesity, diabetes mellitus type 2, and JOSIAH with BiPAP therapy. He had a heart catheterization in October 2023 with recommendation to continue medical therapy. Echocardiogram in September 2023 showed an LV function of 50-55%. He denies chest, arm, jaw, or neck discomfort. He denies palpitations. He denies bilateral lower extremity edema. He denies claudication. He states intermittent shortness of breath with activity such as going up stairs that improves with rest. He denies shortness of breath at rest, orthopnea, or PND. He denies chronic cough. He denies significant, sudden weight gain. He denies lightheadedness, dizziness, near-syncope, or syncope. He denies blood in urine, blood in stool, or epistaxis. He denies fever with chills. He denies myalgia. He denies fatigue. His exercise level has remained stable. 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 Required: No Accompanied by: Is patient in pain?: No Allergies No Known Allergies Allergy (Verified 10/14/24 15:53) Medications ???Medication ???Instructions ???Recorded ???Confirmed ???Type amlodipine 10 mg tablet 10 mg PO QHS BLOOD PRESSURE 10/14/24 History levothyroxine 125 mcg tablet 125 mcg PO DAILY THYROID 02/08/19 10/14/24 History atorvastatin 40 mg tablet 40 mg PO QHS CHOLESTEROL 10/09/22 10/14/24 History metformin 500 mg tablet 1,000 mg PO BID BLOOD SUGARS 10/0910/14/24 History paroxetine HCl 40 mg tablet 40 mg PO QHS DEPRESSION 10/09/22 0 10/14/24 History metoprolol succinate 50 mg 50 mg PO QHS BLOOD PRESSURE 10/14/24 History tablet,extended release 24 hr nitroglycerin 0.4 mg sublingual 0.4 mg sublingual Q5M PRN CHEST 10/14/24 Rx tablet PAIN #14 tabs glimepiride 2 mg tablet 2 mg PO DAILY blood sugar 10/07/23 10/14/24 History tramadol 50 mg tablet 50 mg PO Q6H PRN PRN Pain 3 days 0 05/03/24 10/14/24 Rx #12 tabs aspirin 81 mg tablet,delayed 81 mg PO DAILY #90 TABLETS 4 10/14/24 Rx release Have you fallen in the past year?: Yes [facility] Medical History Infection due to ESBL-producing Escherichia coli Anxiety Depression Diabetes Kidney stones Former smoker BiPAP (biphasic positive airway pressure) dependence Sleep apnea Myocardial infarct Hypertension Atherosclerosis of coronary artery of [place] heart without angina pectoris Leukocytosis JOSIAH (obstructive sleep apnea) Type 2 diabetes mellitus Family history of heart disease Essential hypertension Nausea vomiting and diarrhea Colitis Elevated liver enzymes Sepsis Depression Hyperlipidemia Hypertension Surgical History History of left heart catheterization (10/09/23) History of coronary artery stent placement ( 10/24/22) History of tonsillectomy Status post excision of lipoma Family History Father Myocardial infarction, Onset Age: 45 Mother Hypertension Mixed hyperlipidemia Grandmother CHF (congestive heart failure) Social History household members: spouse Smoking Status: Former smoker alcohol intake: current details: occasional substance use type: does not use caffeine: Yes Type: carbonated beverages Number of servings: 6 ROS Const Const: Positive for weakness (left knee); Negative for fatigue ENT ENT: Negative for dizziness or balance problems Cardio Chest Pain: No Palpitations: No Edema: Left Muscle aches with walking: None Resp Respiratory: Positive for SOB with activity (at times); Negative for SOB at rest or SOB orthopnea SOB lying down GI GI: Negative nausea, vomiting or heartburn : Negative for hematuria or frequent nighttime urination/ nocturia Musc Musc: Nega (more content not included)... Normal [facility] 10-05-2024 [facility] Telephone ([facility]) NICK LOPES ([id number]) 1970 [facility] Date Time Provider Department 10/05/24 [place] [facility] During your visit today, we recorded the following information about you: Danielle Riojas MA 10/05/2024 12:46 PM Signed Pt's calling to see if the paperwork from [employer] has been received and if so, if it has been completed. It is for short term disability. It would have come from [employer] via mail or fax. Please review and advise. HOWIE Helm Amy M, MA 10/06/2024 10:45 AM Signed No paperwork has been received in this office for this patient. I called and spoke with the spouse to inform her of that. She reports this just needs filled out for the last time that Dr. 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 Mary Dale MA 10/12/2024 2:48 PM Signed Paperwork completed and returned to [facility]. Confirmation received. Copy sent for scanning. Allergies As of Date: 10/05/2024 (No Known Allergies) Date Reviewed: 10/04/2024 Reviewed by: Kylie Tran MA - Fully Assessed Reason for Visit: Forms [913] Prescriptions as of 10/12/2024 - PARoxetine (PAXIL) 40 mg tablet Take 1 tablet by mouth once daily. - tirzepatide (MOUNJARO) 2.5 mg/0.5 mL pen injector Inject 2.5 mg subcutaneously one time a week. - Capsaicin 0.1 % crea Apply to affected area two times a day. - amLODIPine (NORVASC) 10 mg tablet Take 1 tablet by mouth once daily. - aspirin, enteric coated (ASPIRIN, ENTERIC COATED) 81 mg EC tablet Take 1 tablet by mouth once daily. - levothyroxine (SYNTHROID) 125 mcg tablet Take 1 tablet by mouth once daily. - atorvastatin (LIPITOR) 40 mg tablet Take 1 tablet by mouth daily at bedtime. For cholesterol. - folic acid 1 mg tablet Take 1 tablet by mouth once daily. - diclofenac (VOLTAREN ARTHRITIS PAIN) 1 % topical gel Apply 2 g to affected area four times daily. - iron fum,ps/folic acid/vitC/B3 (IRON FOLATE-F ORAL) Take by mouth. - blood sugar diagnostic (BLOOD GLUCOSE TEST) test strip Test blood sugar(s) 1 times daily. Dx: Type 2 DM - Uncontrolled E11.65 Insulin: No - Lancets Test blood sugar(s) 1 times daily. Dx: Type 2 DM - Uncontrolled E11.65 Insulin: No - metFORMIN ER (GLUCOPHAGE XR) 500 mg 24 hr tablet Take 2 tablets by mouth two times a day. - metoprolol succinate ER (TOPROL XL) 50 mg 24 hr tablet Take 1 tablet by mouth once daily. - isosorbide dinitrate (ISORDIL) 5 mg tablet Take 1 tablet by mouth two times a day. - Lancets lancets Test blood sugar(s) 1 times daily. Dx: Type 2 DM - Controlled E11.9 Insulin: No - glimepiride (AMARYL) 2 mg tablet Take 1 tablet by mouth daily with breakfast. - blood sugar diagnostic (BLOOD GLUCOSE TEST) test strip Test blood sugar(s) 1 times daily. Dx: Type 2 DM - Controlled E11.9 Insulin: No - clopidogrel (PLAVIX) 75 mg tablet Take 75 mg by mouth once daily. - nitroglycerin sublingual (NITROQUICK) 0.4 mg SL tablet Nitroglycerin Active 0.4 MG SL Q5M October 24, 2022 12:00am - nystatin-triamcinolone (MYCOLOG) ointment Apply sparingly to groin and penile rash twice daily for irritation/infection up to 2 weeks and then take 1 week off. - COMPOUNDED PRESCRIPTION Initiate BiPAP @ 22/16 cm of water with humidification mask (per patient preference) optional chin strap (if indicated) and lifetime supplies DX: JOSIAH 327.23 Problem List As Of Date 10/05/2024 Noted Resolved Hyperlipidemia [E78.5] 09/14/2006 Family history of heart disease [Z82.49] Overweight [E66.3] 09/25/2023 Tobacco Use Disord-Unsp [MWO4312] SHOULDER REGION DIS NEC [M25.819] 01/27/2007 01/02/2009 JOINT PAIN-PELVIS [M25.559] 06/27/2008 01/02/2009 SPRAIN LUMBAR REGION [S33.5XXA] 06/27/2008 01/02/2009 JOINT PAIN-UP/ARM [M25.529] 06/27/2008 06/27/2008 JOINT PAIN-SHLDER [M25.519] 06/27/2008 01/02/2009 Routine General Medical Examination at [facility]*01/02/2009 12/14/2013 Class: Chronic Thoracic or Lumbosacral Neuritis or Radiculitis*02/23/2009 12/14/2013 Hypothyroidism [E03.9] 10/09/2009 Essential hypertension, benign [I10] 02/06/2010 Leukocytosis [D72.829] 09/19/2011 03/28/2024 Sprain of lumbar region [S33.5XXA] 10/18/2012 12/14/2013 Backache, unspecified [M54.9] 11/11/2012 12/14/2013 Cervicalgia [M54.2] 04/20/2015 Lumbago [M54.50] 04/20/2015 03/28/2024 Concussion without loss of consciousness [S06.0*05/08/2015 04/23/2018 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*05/08/2015 Urinary incontinence [R32] 06/13/2015 Frequency [AEP4582] 06/13/2015 04/23/2018 Urgency of urination [R39.15] 06/13/2015 04/23/2018 Nocturia [R35.1] 06/13/2015 03/28/2024 Central sleep apnea [G47.31] 04/02/2018 Diabetes mellitus type 2, controlled, without c*03/25/2021 Obesity, Class III, BMI 40-49.9 (morbid obesity*06/17/2022 Situational stress [F43.9] 06/17/2022 THEO (generalize (more content not included)... Normal [facility] CBC panel Auto (Bld)on 10-04 Erythrocyte distribution width (RBC) [Ratio] 14.6 % Normal 11.5-15.0 [facility] Comment on above: Order Comment: Speci men Type: BLOOD SPECIMENOrdering Facility: [facility] Address: [address] [place] [address] Performed By: #### 5 8410-2 ####[facility] LABCLIA [id number] [place] [address] [place] Hematocrit (Bld) [Volume fraction] 44.1 % Normal 39.0-51.0 [facility] Comment on above: Order Comment: Speci men Type: BLOOD SPECIMENOrdering Facility: [facility] Address: [address] [place] [address] Performed By: #### 5 8410-2 ####[facility] LABCLIA [id number] [place] [address] [place] Hemoglobin (Bld) [Mass/Vol] 13.9 g/dL Normal 13.0-17.0 [facility] Comment on above: Order Comment: Speci men Type: BLOOD SPECIMENOrdering Facility: [facility] Address: [address] [place] [address] Performed By: #### 5 8410-2 ####[facility] LABIA [id number] [place] [address] [place] MCH (RBC) [Entitic mass] 28.1 pg Normal 26.0-34.0 [facility] Comment on above: Order Comment: Speci men Type: BLOOD SPECIMENOrdering Facility: [facility] Address: [address] [place] [address] Performed By: #### 5 8410-2 ####[facility] LABIA [id number] [place] [address] [place] MCHC (RBC) [Mass/Vol] 31.5 g/dL Normal 30.5-36.0 [facility] Comment on above: Order Comment: Speci men Type: BLOOD SPECIMENOrdering Facility: [facility] Address: [address] [place] [address] Performed By: #### 5 8410-2 ####[facility] LABIA [id number] [place] [address] [place] MCV (RBC) [Entitic vol] 89.1 fL Normal 80.0-100.0 [facility] Comment on above: Order Comment: Speci men Type: BLOOD SPECIMENOrdering Facility: [facility] Address: [address] [place] [address] Performed By: #### 5 8410-2 ####[facility] LABIA [id number] [place] [address] [place] Nucleated RBC (Bld) [#/Vol] 10*3/uL Normal <0.01 [facility] Comment on above: Order Comment: Speci men Type: BLOOD SPECIMENOrdering Facility: [facility] Address: [address] [place] [address] Performed By: #### 5 8410-2 ####[facility] LABCLIA [id number] [place] [address] [place] Platelet mean volume (Bld) [Entitic vol] 11.2 fL Normal 9.0-12.7 [facility] Comment on above: Order Comment: Speci men Type: BLOOD SPECIMENOrdering Facility: [facility] Address: [address] [place] [address] Performed By: #### 5 8410-2 ####[facility] LABCLIA [id number] [place] [address] [place] Platelets (Bld) [#/Vol] 145 10*3/uL Low 150-400 [facility] Comment on above: Order Comment: Speci men Type: BLOOD SPECIMENOrdering Facility: [facility] Address: [address] [place] [address] Performed By: #### 5 8410-2 ####[facility] LABCLIA [id number] [place] [address] [place] RBC (Bld) [#/Vol] 4.95 10*6/uL Normal 4.20-6.00 [facility] Comment on above: Order Comment: Speci men Type: BLOOD SPECIMENOrdering Facility: [facility] Address: [address] [place] [address] Performed By: #### 5 8410-2 ####[facility] LABCLIA [id number] [place] [address] [place] WBC (Bld) [#/Vol] 9.17 10*3/uL Normal 3.70-11.00 [facility] Comment on above: Order Comment: Speci men Type: BLOOD SPECIMENOrdering Facility: [facility] Address: [address] [place] [address] Performed By: #### 5 8410-2 ####[facility] LABCLIA [id number] [facility] [id number] [place] [id number] [place] [facility] CNOVon 10-04-2024 CNOV Office Visit (FAMPWS ) NICK LOPES ([id number]) 1970 M [facility] Date Time Provider Department 10/04/24 4:00 PM GINGER LUGO FAMPWS During your visit today, we recorded the following information about you: Pulse Blood pressure Weight Height 89/minute 128/68 140.2 kg 1.722 m Ginger Lugo MD 10/04/2024 4:25 PM Signed Patient presents with: Medical Clearance HPI: Patient presents today for office visit for pre-surgical clearance. Patient presents for preop clearance. Upcoming surgery for: left knee replacement. Hx of previous anesthesia problems: No. Family hx of anesthesia problems: No. Current signs of infection: No. Did have elevated white count last month. Was to have rechecked by now, reminded to do so Chest pain: -rare-feels like heart burn. Nothing with exertion. Does not feel like his angina. Had a ptca done in 2022. Sees Dr Patton at [facility] soon. Shortness of breath: no new short of breath. Known sleep apnea: Yes. Using cpap. Hx of clotting issues: No. Current bleeding or bruising: No. Sugars are slightly higher that previous but should not pose any issues with clearance. Recent labs: Latest Ref Rng 08/09/2024 WBC 3.70 - 11.00 k/uL 14.40 (H) RBC 4.20 - 6.00 m/uL 5.27 Hemoglobin 13.0 - 17.0 g/dL 14.5 Hematocrit 39.0 - 51.0 % 45.9 MCV 80.0 - 100.0 fL 87.1 MCH 26.0 - 34.0 pg 27.5 MCHC 30.5 - 36.0 g/dL 31.6 RDW-CV 11.5 - 15.0 % 15.6 (H) Platelet Count 150 - 400 k/uL 165 MPV 9.0 - 12.7 fL 10.6 Neut% % 76.3 Abs Neut (ANC) 1.45 - 7.50 k/uL 10.99 (H) Lymph% % 16.4 Abs Lymph 1.00 - 4.00 k/uL 2.36 Towns% % 5.0 Abs Towns <0.87 k/uL 0.72 Eosin% % 0.5 Abs Eosin <0.46 k/uL 0.07 Baso% % 0.5 Abs Baso <0.11 k/uL 0.07 Immature Gran % % 1.3 IMMATURE GRANS (ABS) <0.10 k/uL 0.19 (H) NRBC /100 WBC 0.0 Absolute nRBC <0.01 k/uL <0.01 DTYPE Auto Hemoglobin A1C 4.3 - 5.6 % 7.4 (H) Estimated Average Glucose mg/dL 166 Folate >4.7 ng/mL 19.7 Legend: (H) HighICATIONS: Current Outpatient Medications Medication Sig Capsaicin 0.1 % crea Apply to affected area two times a day. amLODIPine (NORVASC) 10 mg tablet Take 1 tablet by mouth once daily. aspirin, enteric coated (ASPIRIN, ENTERIC COATED) 81 mg EC tablet Take 1 tablet by mouth once daily. levothyroxine (SYNTHROID) 125 mcg tablet Take 1 tablet by mouth once daily. atorvastatin (LIPITOR) 40 mg tablet Take 1 tablet by mouth daily at bedtime. For cholesterol. folic acid 1 mg tablet Take 1 tablet by mouth once daily. iron fum,ps/folic acid/vitC/B3 (IRON FOLATE-F ORAL) Take by mouth. blood sugar diagnostic (BLOOD GLUCOSE TEST) test strip Test blood sugar(s) 1 times daily. Dx: Type 2 DM - Uncontrolled E11.65 Insulin: No Lancets Test blood sugar(s) 1 times daily. Dx: Type 2 DM - Uncontrolled E11.65 Insulin: No metFORMIN ER (GLUCOPHAGE XR) 500 mg 24 hr tablet Take 2 tablets by mouth two times a day. metoprolol succinate ER (TOPROL XL) 50 mg 24 hr tablet Take 1 tablet by mouth once daily. PARoxetine (PAXIL) 40 mg tablet Take 1 tablet by mouth once daily. isosorbide dinitrate (ISORDIL) 5 mg tablet Take 1 tablet by mouth two times a day. Lancets lancets Test blood sugar(s) 1 times daily. Dx: Type 2 DM - Controlled E11.9 Insulin: No glimepiride (AMARYL) 2 mg tablet Take 1 tablet by mouth daily with breakfast. blood sugar diagnostic (BLOOD GLUCOSE TEST) test strip Test blood sugar(s) 1 times daily. Dx: Type 2 DM - Controlled E11.9 Insulin: No clopidogrel (PLAVIX) 75 mg tablet Take 75 mg by mouth once daily. nitroglycerin sublingual (NITROQUICK) 0.4 mg SL tablet Nitroglycerin Active 0.4 MG SL Q5M October 24, 2022 12:00am nystatin-triamcinolone (MYCOLOG) ointment Apply sparingly to groin and penile rash twice daily for irritation/infection up to 2 weeks and then take 1 week off. COMPOUNDED PRESCRIPTION Initiate BiPAP @ 22/16 cm of water with humidification mask (per patient preference) optional chin strap (if indicated) and lifetime supplies DX: JOSIAH 327.23 diclofenac (VOLTAREN ARTHRITIS PAIN) 1 % topical gel Apply 2 g to affected area four times daily. (Patient not taking: Reported on 08/03/2024) No current facility-administered medications for this visit. ALLERGIES: ALLERGIES No Known Allergies PAST MEDICAL HISTORY Diagnosis Date Elevated white blood cell count has been reviewed by hematology. will follow periodically Fam hx-cardiovas dis NEC n/a father, of [place] at 45 Hypothyroid Other and unspecified hyperlipidemia Sep 14 (dx'd in hospital for atypical CP) Overweight(278.02) Sleep apnea Tobacco use disorder complicating , childbirth, or the puerperium, unspecified as to episode of care or not applicable 1989 Unspecified essential hypertension PAST SURGICAL HISTORY Procedure Laterality Date EXCISION OF BENIGN LESION, COMPLICATED 2004 Lipoma, abd (more content not included)... Normal [facility] Carie 09-22-2024 RAMIRON Telephone (RMRIWS) NICK LOPES ([id number]) 1970 M [facility] Date Time Provider Department 09/22/24 [address] During your visit today, we recorded the following information about you: Teagan Vergara 09/22/2024 10:46 AM Signed Patient's Liliana calling in requesting a CD to be made of patient's MRI completed on 05/26/24, and his knee and leg xray on 09/19/2024. Please let Liliana know once completed. Liliana's number: [phone] Teagan Vergara September 22, 2024 10:44 AM Kaylie Alvarez PSS 09/22/2024 1:03 PM Signed CD READY FOR SECURITY RESEARCHER AT [facility] LM TO LET PT KNOW Allergies As of Date: 09/22/2024 (No Known Allergies) Date Reviewed: 09/19/2024 Reviewed by: Anushka Lyles MA - Fully Assessed Reason for Visit: Imaging [Other] Prescriptions as of 09/22/2024 - Capsaicin 0.1 % crea Apply to affected area two times a day. - amLODIPine (NORVASC) 10 mg tablet Take 1 tablet by mouth once daily. - aspirin, enteric coated (ASPIRIN, ENTERIC COATED) 81 mg EC tablet Take 1 tablet by mouth once daily. - levothyroxine (SYNTHROID) 125 mcg tablet Take 1 tablet by mouth once daily. - atorvastatin (LIPITOR) 40 mg tablet Take 1 tablet by mouth daily at bedtime. For cholesterol. - folic acid 1 mg tablet Take 1 tablet by mouth once daily. - diclofenac (VOLTAREN ARTHRITIS PAIN) 1 % topical gel Apply 2 g to affected area four times daily. - iron fum,ps/folic acid/vitC/B3 (IRON FOLATE-F ORAL) Take by mouth. - blood sugar diagnostic (BLOOD GLUCOSE TEST) test strip Test blood sugar(s) 1 times daily. Dx: Type 2 DM - Uncontrolled E11.65 Insulin: No - Lancets Test blood sugar(s) 1 times daily. Dx: Type 2 DM - Uncontrolled E11.65 Insulin: No - metFORMIN ER (GLUCOPHAGE XR) 500 mg 24 hr tablet Take 2 tablets by mouth two times a day. - metoprolol succinate ER (TOPROL XL) 50 mg 24 hr tablet Take 1 tablet by mouth once daily. - PARoxetine (PAXIL) 40 mg tablet Take 1 tablet by mouth once daily. - isosorbide dinitrate (ISORDIL) 5 mg tablet Take 1 tablet by mouth two times a day. - Lancets lancets Test blood sugar(s) 1 times daily. Dx: Type 2 DM - Controlled E11.9 Insulin: No - glimepiride (AMARYL) 2 mg tablet Take 1 tablet by mouth daily with breakfast. - blood sugar diagnostic (BLOOD GLUCOSE TEST) test strip Test blood sugar(s) 1 times daily. Dx: Type 2 DM - Controlled E11.9 Insulin: No - clopidogrel (PLAVIX) 75 mg tablet Take 75 mg by mouth once daily. - nitroglycerin sublingual (NITROQUICK) 0.4 mg SL tablet Nitroglycerin Active 0.4 MG SL Q5M October 24, 2022 12:00am - nystatin-triamcinolone (MYCOLOG) ointment Apply sparingly to groin and penile rash twice daily for irritation/infection up to 2 weeks and then take 1 week off. - COMPOUNDED PRESCRIPTION Initiate BiPAP @ 22/16 cm of water with humidification mask (per patient preference) optional chin strap (if indicated) and lifetime supplies DX: JOSIAH 327.23 Problem List As Of Date 09/22/2024 Noted Resolved Hyperlipidemia [E78.5] 09/14/2006 Family history of heart disease [Z82.49] Overweight [E66.3] 09/25/2023 Tobacco Use Disord-Unsp [TDA7546] SHOULDER REGION DIS NEC [M25.819] 01/27/2007 01/02/2009 JOINT PAIN-PELVIS [M25.559] 06/27/2008 01/02/2009 SPRAIN LUMBAR REGION [S33.5XXA] 06/27/2008 01/02/2009 JOINT PAIN-UP/ARM [M25.529] 06/27/2008 06/27/2008 JOINT PAIN-SHLDER [M25.519] 06/27/2008 01/02/2009 Routine General Medical Examination at [facility]*01/02/2009 12/14/2013 Class: Chronic Thoracic or Lumbosacral Neuritis or Radiculitis*02/23/2009 12/14/2013 Hypothyroidism [E03.9] 10/09/2009 Essential hypertension, benign [I10] 02/06/2010 Leukocytosis [D72.829] 09/19/2011 03/28/2024 Sprain of lumbar region [S33.5XXA] 10/18/2012 12/14/2013 Backache, unspecified [M54.9] 11/11/2012 12/14/2013 Cervicalgia [M54.2] 04/20/2015 Lumbago [M54.50] 04/20/2015 03/28/2024 Concussion without loss of consciousness [S06.0*05/08/2015 04/23/2018 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*05/08/2015 Urinary incontinence [R32] 06/13/2015 Frequency [QSD5801] 06/13/2015 04/23/2018 Urgency of urination [R39.15] 06/13/2015 04/23/2018 Nocturia [R35.1] 06/13/2015 03/28/2024 Central sleep apnea [G47.31] 04/02/2018 Diabetes mellitus type 2, controlled, without c*03/25/2021 Obesity, Class III, BMI 40-49.9 (morbid obesity*06/17/2022 Situational stress [F43.9] 06/17/2022 THEO (generalized anxiety disorder) [F41.1] 06/17/2022 JOSIAH (obstructive sleep apnea) [G47.33] 06/17/2022 DDD (degenerative disc disease), lumbar [M51.36*06/28/2022 Spinal stenosis of lumbar region without neurog*06/28/2022 Cervical stenosis of spine [M48.02] 06/28/2022 Coronary artery disease involving [place] fagan*01/24/2023 S/P PTCA (percutaneous transluminal coronary an*01/24/2023 Status post insertion of drug-eluting sten (more content not included)... Normal [facility] CNOVon 09-19-2024 CNOV Office Visit (ORMDNA ) NICK LOPES ([id number]) 1970 M [facility] Date Time Provider Department 09/19/24 1:00 PM JOSE LOO During your visit today, we recorded the following information about you: Weight Height 143.4 kg 1.722 m Jose Loo MD 09/19/2024 2:30 PM Addendum CONSULT ORTHOPAEDIC: KNEE PRIMARY CARE PHYSICIAN: Ginger Lugo MD REFERRING PROVIDER: No referring provider defined for this encounter. ASSESSMENT AND PLAN This is a 53-year-old male who presents with left knee pain. Patient states that left knee pain for the past year and has been getting worse over the past few months. He has undergone injections with steroids and gel injections with no improvement. He continues to have pain most on the medial aspect of his knee. he has complete medial joint space narrowing of his compartment of his knee. Patient has a BMI of 48.3. Patient has history of CAD with stents. history of diabetes 7.4 no history of blood clots but is on Plavix. Impression: Left knee primary osteoarthritis severe -Discussed the patient that given he has a history of a BMI of 48 along with being on Plavix as well as diabetes with a A1c of 7.4, the goal would be for optimization at this time and to work with weight loss. He has been on Ozempic previously and is willing to try it. He will contact his primary care doctor regarding this and also try dieting. If he loses the weight gets to a BMI below 45 with an acceptable A1c we will proceed with the surgery. He will follow-up in 3 months. Diagnoses: (M17.12) Primary osteoarthritis of left knee (primary encounter diagnosis) Risk Factors for Total Knee Arthroplasty (TKA) Major Risk Factors Obesity High Risk High: BMI > 40 Moderate: BMI 30-40 Normal: BMI < 30 Diabetes Moderate Risk High: A1C > 8 Moderate: A1C 7-8 Normal: A1C < 7 Hx of DVT / PE normal High: dx of DVT / PE Normal: no dx of DVT / PE Smoking normal High: Current smoker Normal: Non smoker Narcotics Use Moderate Risk High:NarxCare >=300 Moderate: 100-299 Normal: 0-99 Depression Unknown Risk High: PHQ-9 >14 Moderate: PHQ-9 5-14 Normal: PHQ-9 < 5 Area Deprivation Index (GRETCHEN) Moderate Risk High: GRETCHEN Score > 75 Moderate: GRETCHEN 50-75 Normal: GRETCHEN < 50 Obesity: Weight management and obesity medicine (bariatric) program recommended BMI Readings from Last 3 Encounters: 09/19/24 : 48.36 kg/m? 09/15/24 : 52.60 kg/m? 08/09/24 : 50.87 kg/m? Diabetes: Nick has been diagnosed with Type 2 Diabetes. His last Hemoglobin A1C was 7.4 (08/09/2024). Pt is followed by Ginger Lugo for Type 2 Diabetes - last seen on 08/09/2024. Consult to the Endocrinology and Metabolic Jeannette (MIKAL) recommended prior to surgery. Area Deprivation Index (GRETCHEN) 01/22/2023 04/04/2024 GRETCHEN Score National Score 61 61 Patient Health Questionnaire (PHQ-9) 12/28/2020 06/27/2022 01/22/2023 PHQ-9 PHQ-2 Score 0 0 0 (0-4) minimal depression, (5-9) mild depression, (10-14) moderate depression, (15-19) moderately severe depression, (20-27) severe depression Bone Density Risk Screen Nick Lopes is low risk for bone loss based on his age and having no previous diagnoses of osteopenia, osteoporosis, Paget's disease of bone, or cancer of bone. Other risk factors are listed below to determine if they pose a significant risk for bone loss, and if so, recommend ordering a bone densitometry and, upon receiving a result, as needed, order a consult to a bone health specialist (Rheumatology, Endocrinology, or Women's Health) for bone assessment. Risk Factors: History of falls Prednisone or use of systemic steroids Chronic Malnutrition Additional Risk Factors Anemia Hemoglobin (g/dL) Date Value 08/09/2024 14.5 04/01/2024 12.9 06/06/2021 15.1 05/14/2021 15.3 NarxCare score NARX Narcotics: 160 (09/19/2024 1:59 PM) Obstructive Sleep Apnea (JOSIAH) Malnutrition: No Malnutrition Screening Tool (MST) score on file- please complete the MST screening tool (click here to open) and refresh the note. 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 Normal [facility] Panel Informationon 09-19 IMPRESSION: Osteoarthrosis Professional Bass Fisher: PSCTristen Transcribe Date/Time: Sep 19 2024 2:55P Dictated by : ILIR HUFF MD This examination was interpreted and the report reviewed and electronically signed by: ILIR HUFF MD on Sep 19 2024 2:57PM [facility] Radiology Study observation (narrative) [facility] No Panel InformationOrdered By: Ccf Provider on 09-19-2024 [facility] XR KNEE 4V AP/PA BOTH+LAT/ME R LTon 09-19-2024 XR KNEE 4V AP/PA BOTH+LAT/SEVERO LT * * *Final Report* * * DATE OF EXAM: Sep 19 2024 1:50PM MDX 5202 - XR KNEE 4V AP/PA BOTH+LAT/SEVERO LT / PROCEDURE REASON: multiple diagnoses * * * * Physician Interpretation * * * * PROCEDURE: Left knee and mechanical axis INDICATION: Pain in both knees, unspecified chronicity TECHNIQUE: XR KNEE 4V AP/PA BOTH+LAT/SEVERO LT, XR LEG FRONTL HIP-ANKL [facility] AXIS COMPARISON: 03/28/2024 FINDINGS: Advanced medial joint compartment narrowing, nearly dzsl-hq-clca in appearance with tricompartment spur formation, not significantly changed. New small joint effusion. No fracture or dislocation. AP long leg views show no discrete osseous lesion. Medial joint compartment narrowing bilaterally, left greater than right with slight genu valgus varus. Measurements will be obtained by the ordering team. IMPRESSION: Osteoarthrosis Professional Bass Fisher: PSCB Transcribe Date/Time: Sep 19 2024 2:55P Dictated by : ILIR HUFF MD This examination was interpreted and the report reviewed and electronically signed by: ILIR HUFF MD on Sep 19 2024 2:57PM EST [id number] Normal [facility] XR Knee - left 4 Viewson * * *Final Report* * * DATE OF EXAM: Sep 19 2024 1:50PM MDX 5202 - XR KNEE 4V AP/PA BOTH+LAT/SEVERO LT / PROCEDURE REASON: multiple diagnoses * * * * Physician Interpretation * * * * PROCEDURE: Left knee and mechanical axis INDICATION: Pain in both knees, unspecified chronicity TECHNIQUE: XR KNEE 4V AP/PA BOTH+LAT/SEVERO LT, XR LEG FRONTL HIP-ANKL [facility] AXIS COMPARISON: 03/28/2024 FINDINGS: Advanced medial joint compartment narrowing, nearly bldp-og-hsur in appearance with tricompartment spur formation, not significantly changed. New small joint effusion. No fracture or dislocation. AP long leg views show no discrete osseous lesion. Medial joint compartment narrowing bilaterally, left greater than right with slight genu valgus varus. Measurements will be obtained by the ordering team. [facility] Provider, [facility] Imagin g Jeannette - 09/19/2024 * * *Final Report* * * DATE OF EXAM: Sep 19 2024 1:50PM MDX 5202 - XR KNEE 4V AP/PA BOTH+LAT/SEVERO LT / PROCEDURE REASON: multiple diagnoses * * * * Physician Interpretation * * * * PROCEDURE: Left knee and mechanical axis INDICATION: Pain in both knees, unspecified chronicity TECHNIQUE: XR KNEE 4V AP/PA BOTH+LAT/SEVERO LT, XR LEG FRONTL HIP-ANKL [facility] AXIS COMPARISON: 03/28/2024 FINDINGS: Advanced medial joint compartment narrowing, nearly fkid-dh-arko in appearance with tricompartment spur formation, not significantly changed. New small joint effusion. No fracture or dislocation. AP long leg views show no discrete osseous lesion. Medial joint compartment narrowing bilaterally, left greater than right with slight genu valgus varus. Measurements will be obtained by the ordering team. IMPRESSION IMPRESSION: Osteoarthrosis Professional Bass Fisher: MICHOACANO Transcribe Date/Time: Sep 19 2024 2:55P Dictated by : ILIR HUFF MD This examination was interpreted and the report reviewed and electronically signed by: ILIR HUFF MD on Sep 19 2024 2:57PM EST [facility]24 XR LEG FRONTL HIP-ANKL [facility] AXIS * * *Final Report* * * DATE OF EXAM: Sep 19 2024 1:50PM MDX 5216 - XR LEG FRONTL HIP-ANKL [facility] AXIS / PROCEDURE REASON: multiple diagnoses * * * * Physician Interpretation * * * * PROCEDURE: Left knee and mechanical axis INDICATION: Pain in both knees, unspecified chronicity TECHNIQUE: XR KNEE 4V AP/PA BOTH+LAT/SEVERO LT, XR LEG FRONTL HIP-ANKL [facility] AXIS COMPARISON: 03/28/2024 FINDINGS: Advanced medial joint compartment narrowing, nearly sxnw-kp-[id number] in appearance with tricompartment spur formation, not significantly changed. New small joint effusion. No fracture or dislocation. AP long leg views show no discrete osseous lesion. Medial joint compartment narrowing bilaterally, left greater than right with slight genu valgus varus. Measurements will be obtained by the ordering team. IMPRESSION: Osteoarthrosis Professional Bass Fisher: MICHOACANO Transcribe Date/Time: Sep 19 2024 2:55P Dictated by : ILIR HUFF MD This examination was interpreted and the report reviewed and electronically signed by: ILIR HUFF MD on Sep 19 2024 2:57PM EST [id number] [facility] XR Lower extremity - bilater al AP W standingon 09-19-2024 * * *Final Report* * * DATE OF EXAM: Sep 19 2024 1:50PM MDX 5216 - XR LEG FRONTL HIP-ANKL [facility] AXIS / PROCEDURE REASON: multiple diagnoses * * * * Physician Interpretation * * * * PROCEDURE: Left knee and mechanical axis INDICATION: Pain in both knees, unspecified chronicity TECHNIQUE: XR KNEE 4V AP/PA BOTH+LAT/SEVERO LT, XR LEG FRONTL HIP-ANKL [facility] AXIS COMPARISON: 03/28/2024 FINDINGS: Advanced medial joint compartment narrowing, nearly qziu-gj-adte in appearance with tricompartment spur formation, not significantly changed. New small joint effusion. No fracture or dislocation. AP long leg views show no discrete osseous lesion. Medial joint compartment narrowing bilaterally, left greater than right with slight genu valgus varus. Measurements will be obtained by the ordering team. [facility] Provider, Brian Michael - 09/19/2024 * * *Final Report* * * DATE OF EXAM: Sep 19 2024 1:50PM MDX 5216 - XR LEG FRONTL HIP-ANKL [facility] AXIS / PROCEDURE REASON: multiple diagnoses * * * * Physician Interpretation * * * * PROCEDURE: Left knee and mechanical axis INDICATION: Pain in both knees, unspecified chronicity TECHNIQUE: XR KNEE 4V AP/PA BOTH+LAT/SEVERO LT, XR LEG FRONTL HIP-ANKL [facility] AXIS COMPARISON: 03/28/2024 FINDINGS: Advanced medial joint compartment narrowing, nearly [id number] in appearance with tricompartment spur formation, not significantly changed. New small joint effusion. No fracture or dislocation. AP long leg views show no discrete osseous lesion. Medial joint compartment narrowing bilaterally, left greater than right with slight genu valgus varus. Measurements will be obtained by the ordering team. IMPRESSION IMPRESSION: Osteoarthrosis Professional Bass Fisher: MICHOACANO Transcribe Date/Time: Sep 19 2024 2:55P Dictated by : ILIR HUFF MD This examination was interpreted and the report reviewed and electronically signed by: ILIR HUFF MD on Sep 19 2024 2:57PM [facility] CNOVon 09-15-2024 CNOV Office Visit (FAMPWS ) NICK LOPES ([id number]) 1970 [facility] Date Time Provider Department 09/15/24 11:20 AM 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 Patient presents with: Knee Pain: Urgent Care follow up Left knee is very painful. Had hyaluronic acid injection in it. Was off two weeks and went back to work Sep. 2 ER told him the injection went through to back of knee causing swelling behind knee. Ruled out infection Pain is the entire knee now. Can't do his job now. 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 will follow periodically Fam hx-cardiovas dis NEC n/a father, of [place] at 45 Hypothyroid Other and unspecified hyperlipidemia Sep 14 (dx'd in hospital for atypical CP) Overweight(278.02) Sleep apnea Tobacco use disorder complicating , childbirth, or the puerperium, unspecified as to episode of care or not applicable 1989 Unspecified essential hypertension PAST SURGICAL HISTORY Procedure Laterality Date EXCISION OF BENIGN LESION, COMPLICATED 2004 Lipoma, abdominal wall, [facility] TONSILLECTOMY PRIMARY/SECONDARY Tonsillectomy ALLERGIES Patient has no known allergies. MEDICATIONS Current Outpatient Medications Medication Sig amLODIPine (NORVASC) 10 mg tablet Take 1 tablet by mouth once daily. aspirin, enteric coated (ASPIRIN, ENTERIC COATED) 81 mg EC tablet Take 1 tablet by mouth once daily. levothyroxine (SYNTHROID) 125 mcg tablet Take 1 tablet by mouth once daily. atorvastatin (LIPITOR) 40 mg tablet Take 1 tablet by mouth daily at bedtime. For cholesterol. folic acid 1 mg tablet Take 1 tablet by mouth once daily. diclofenac (VOLTAREN ARTHRITIS PAIN) 1 % topical gel Apply 2 g to affected area four times daily. (Patient not taking: Reported on 08/03/2024) iron fum,ps/folic acid/vitC/B3 (IRON FOLATE-F ORAL) Take by mouth. blood sugar diagnostic (BLOOD GLUCOSE TEST) test strip Test blood sugar(s) 1 times daily. Dx: Type 2 DM - Uncontrolled E11.65 Insulin: No Lancets Test blood sugar(s) 1 times daily. Dx: Type 2 DM - Uncontrolled E11.65 Insulin: No metFORMIN ER (GLUCOPHAGE XR) 500 mg 24 hr tablet Take 2 tablets by mouth two times a day. metoprolol succinate ER (TOPROL XL) 50 mg 24 hr tablet Take 1 tablet by mouth once daily. PARoxetine (PAXIL) 40 mg tablet Take 1 tablet by mouth once daily. isosorbide dinitrate (ISORDIL) 5 mg tablet Take 1 tablet by mouth two times a day. Lancets lancets Test blood sugar(s) 1 times daily. Dx: Type 2 DM - Controlled E11.9 Insulin: No glimepiride (AMARYL) 2 mg tablet Take 1 tablet by mouth daily with breakfast. blood sugar diagnostic (BLOOD GLUCOSE TEST) test strip Test blood sugar(s) 1 times daily. Dx: Type 2 DM - Controlled E11.9 Insulin: No clopidogrel (PLAVIX) 75 mg tablet Take 75 mg by mouth once daily. nitroglycerin sublingual (NITROQUICK) 0.4 mg SL tablet Nitroglycerin Active 0.4 MG SL Q5M October 24, 2022 12:00am nystatin-triamcinolone (MYCOLOG) ointment Apply sparingly to groin and penile rash twice daily for irritation/infection up to 2 weeks and then take 1 week off. COMPOUNDED PRESCRIPTION Initiate BiPAP @ 22/16 cm of water with humidification mask (per patient preference) optional chin strap (if indicated) and lifetime supplies DX: JOSIAH 327.23 No current facility-administered medications for this visit. FAMILY HISTORY Problem Relation Age of Onset Heart Father of HEART ATTACK AT AGE 45 Heart Mother no blockages, hyperlipidemia Breast Cancer Mother Diabetes Maternal Grandmother Breast Cancer Paternal Grandfather Hypertension Mother around age 60 Social History Tobacco Use Smoking status: Former Current packs/day: 0.00 Average packs/day: 1 pack/day for 17.0 years (17.0 ttl pk-yrs) Types: Cigarettes Start date: 10/08/2005 Quit date: 10/08/2022 Years since quittin.9 Smokeless tobacco: Current Tobacco comments: 06/27/2022 5 cigs/day Vaping Use Vaping status: Never Used Substance Use Topics Alcohol use: Yes Comment: occasionally (once every 2-3) Drug use: No OARRS report notes 3 separate providers EXAM: BP 130/80 (more content not included)... [facility] NICK LOPES ([id number]) 1970 [facility] Date Time Provider Department 09/15/24 [facility] During your visit today, we recorded the following information about you: Batool Ballesteros RN 09/15/2024 12:25 PM Signed Spouse (Liliana) calls to report that the order for knee immobilizer is not available at [facility]. Liliana reports what they can offer is a reaction web brace (doesn't completely immobilize the knee but offers support). If provider agrees new order would have to be sent to [facility] for reaction web brace. Pended requested order with previous diagnosis for review. NEL Brooks Jacqueline A, APRN.RAMIRO 09/15/2024 12:28 PM Signed Done. Thanks for update Allergies As of Date: 09/15/2024 (No Known Allergies) Date Reviewed: 09/15/2024 Reviewed by: Nuha Mosquera APRN.MILL PLATFORM SUPERVISOR - Fully Assessed Reason for Visit: Orders [681] Primary Visit Diagnosis:Primary osteoarthritis of left knee [M17.12] Order(s):DME SUPPLY OR ACCESSORY, NOS [[id number]] Order #: [id number] Prescriptions as of 09/15/2024 - Capsaicin 0.1 % crea Apply to affected area two times a day. - amLODIPine (NORVASC) 10 mg tablet Take 1 tablet by mouth once daily. - aspirin, enteric coated (ASPIRIN, ENTERIC COATED) 81 mg EC tablet Take 1 tablet by mouth once daily. - levothyroxine (SYNTHROID) 125 mcg tablet Take 1 tablet by mouth once daily. - atorvastatin (LIPITOR) 40 mg tablet Take 1 tablet by mouth daily at bedtime. For cholesterol. - folic acid 1 mg tablet Take 1 tablet by mouth once daily. - diclofenac (VOLTAREN ARTHRITIS PAIN) 1 % topical gel Apply 2 g to affected area four times daily. - iron fum,ps/folic acid/vitC/B3 (IRON FOLATE-F ORAL) Take by mouth. - blood sugar diagnostic (BLOOD GLUCOSE TEST) test strip Test blood sugar(s) 1 times daily. Dx: Type 2 DM - Uncontrolled E11.65 Insulin: No - Lancets Test blood sugar(s) 1 times daily. Dx: Type 2 DM - Uncontrolled E11.65 Insulin: No - metFORMIN ER (GLUCOPHAGE XR) 500 mg 24 hr tablet Take 2 tablets by mouth two times a day. - metoprolol succinate ER (TOPROL XL) 50 mg 24 hr tablet Take 1 tablet by mouth once daily. - PARoxetine (PAXIL) 40 mg tablet Take 1 tablet by mouth once daily. - isosorbide dinitrate (ISORDIL) 5 mg tablet Take 1 tablet by mouth two times a day. - Lancets lancets Test blood sugar(s) 1 times daily. Dx: Type 2 DM - Controlled E11.9 Insulin: No - glimepiride (AMARYL) 2 mg tablet Take 1 tablet by mouth daily with breakfast. - blood sugar diagnostic (BLOOD GLUCOSE TEST) test strip Test blood sugar(s) 1 times daily. Dx: Type 2 DM - Controlled E11.9 Insulin: No - clopidogrel (PLAVIX) 75 mg tablet Take 75 mg by mouth once daily. - nitroglycerin sublingual (NITROQUICK) 0.4 mg SL tablet Nitroglycerin Active 0.4 MG SL Q5M October 24, 2022 12:00am - nystatin-triamcinolone (MYCOLOG) ointment Apply sparingly to groin and penile rash twice daily for irritation/infection up to 2 weeks and then take 1 week off. - COMPOUNDED PRESCRIPTION Initiate BiPAP @ 22/16 cm of water with humidification mask (per patient preference) optional chin strap (if indicated) and lifetime supplies DX: JOSIAH 327.23 Problem List As Of Date 09/15/2024 Noted Resolved Hyperlipidemia [E78.5] 09/14/2006 Family history of heart disease [Z82.49] Overweight [E66.3] 09/25/2023 Tobacco Use Disord-Unsp [LHP3011] SHOULDER REGION DIS NEC [M25.819] 01/27/2007 01/02/2009 JOINT PAIN-PELVIS [M25.559] 06/27/2008 01/02/2009 SPRAIN LUMBAR REGION [S33.5XXA] 06/27/2008 01/02/2009 JOINT PAIN-UP/ARM [M25.529] 06/27/2008 06/27/2008 JOINT PAIN-SHLDER [M25.519] 06/27/2008 01/02/2009 Routine General Medical Examination at [facility]*01/02/2009 12/14/2013 Class: Chronic Thoracic or Lumbosacral Neuritis or Radiculitis*02/23/2009 12/14/2013 Hypothyroidism [E03.9] 10/09/2009 Essential hypertension, benign [I10] 02/06/2010 Leukocytosis [D72.829] 09/19/2011 03/28/2024 Sprain of lumbar region [S33.5XXA] 10/18/2012 12/14/2013 Backache, unspecified [M54.9] 11/11/2012 12/14/2013 Cervicalgia [M54.2] 04/20/2015 Lumbago [M54.50] 04/20/2015 03/28/2024 Concussion without loss of consciousness [S06.0*05/08/2015 04/23/2018 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 Normal [facility] ED Prov Noteon 09-13-2024 ED Prov Note ED PROVIDER NOTE [facility] EMERGENCY DEPART[facility] NAME: Nick Lopes AGE: 53 y.o. : 1970 VISIT DATE: 09/13/2024 CSN: [id number] PCP: Ginger Lugo MD Chief Complaint Patient presents with Knee Pain Patient ambulatory to ED 1 with complaints of left knee pain. States that he had a gel shot around 10 days ago and states now he has a bump is behind his knee cap and his doctor sent him for evaluation because they plan to do surgery. Denies any nausea vomiting fevers or chills. No diarrhea or constipation. Knee Pain Past Medical History: Diagnosis Date Clostridium difficile infection Diabetes mellitus (HCC) Hypertension Hypothyroid JOSIAH treated with BiPAP Past Surgical History: Procedure Laterality Date CARDIAC CATHETERIZATION 10/08/2022 2 cardiac stents excision fatty tumor abdomen FOOT SURGERY Right 12/22/2017 plantar fascitiis TONSILLECTOMY AND ADENOIDECTOMY Family History Problem Relation Age of Onset Breast cancer Mother Cancer Father Heart attack Father Colon cancer Neg Hx Rectal cancer Neg Hx Social History Socioeconomic History Marital status: Tobacco Use Smoking status: Former Current packs/day: 1.00 Average packs/day: 1 pack/day for 40.0 years (40.0 ttl pk-yrs) Types: Cigarettes Passive exposure: Past Smokeless tobacco: Current Tobacco comments: snuff Vaping Use Vaping status: Never Used Substance and Sexual Activity Alcohol use: Never Drug use: Never Social Drivers of Health Food Insecurity: No Food Insecurity (02/01/2020) Received from [facility] Hunger Vital Sign Worried About Running Out of Food in the Last Year: Never true Ran Out of Food in the Last Year: Never true Transportation Needs: No Transportation Needs (02/01/2020) Received from [facility] PRAPARE - Transportation Lack of Transportation (Medical): No Lack of Transportation (Non-Medical): No Physical Activity: Inactive (02/01/2020) Received from [facility] Exercise Vital Sign Days of Exercise per Week: 0 days Minutes of Exercise per Session: 0 min Stress: No Stress Concern Present (02/01/2020) Received from [facility] [place] of Occupational Health - Occupational Stress Questionnaire Feeling of Stress : Not at all Social Connections: Moderately Integrated (02/01/2020) Received from [facility] Social Connection and Isolation Panel [NHANES] Frequency of Communication with Friends and Family: Twice a week Frequency of Social Gatherings with Friends and Family: Never Attends Religion Services: More than 4 times per year Active Member of Clubs or Organizations: Yes Attends Club or Organization Meetings: Never Marital Status: Housing Stability: Low Risk (12/01/2021) Received from [facility] Housing Stability Vital Sign Unable to Pay for Housing in the Last Year: No Number of Places Lived in the Last Year: 2 Unstable Housing in the Last Year: No Previous Medications Medication Sig amLODIPine (NORVASC) 10 MG tablet Take 1 (one) tablet (10 mg total) by mouth daily . aspirin 81 MG EC tablet Take 1 (one) tablet (81 mg total) by mouth daily . atorvastatin (LIPITOR) 20 MG tablet Take 1 (one) tablet (20 mg total) by mouth every night at bedtime . clopidogreL (PLAVIX) 75 mg tablet Take 1 (one) tablet (75 mg total) by mouth daily . Dificid tablet Take 1 (one) tablet (200 mg total) by mouth 2 (two) times a day for 10 days . glimepiride (AMARYL) 1 MG tablet Take 1 (one) tablet (1 mg total) by mouth daily with breakfast . isosorbide dinitrate (ISORDIL) 5 MG tablet Take 1 (one) tablet (5 mg total) by mouth 2 (two) times a day . levothyroxine (SYNTHROID, LEVOTHROID) 125 MCG tablet Take 1 (one) tablet (125 mcg total) by mouth daily . metFORMIN (GLUCOPHAGE) 1000 MG tablet Take 1 (one) tablet (1,000 mg total) by mouth 2 (two) times a day with meals . metoprolol succinate (TOPROL-XL) 50 MG 24 hr tablet Take 1 (one) tablet (50 mg total) by mouth daily . PARoxetine (PAXIL) 40 MG tablet Take 1 (one) tablet (40 mg total) by mouth daily . No Known Allergies Review of Systems Patient Vitals for the past 24 hrs: BP Temp Temp src Pulse Resp SpO2 Height Weight 09/13/242026 (!) 180/96 97.8 degrees F (36.6 degrees C) Oral 87 (!) 20 96 % 5' 8 133.8 kg (295 lb) Physical Exam Vitals and nursing note reviewed. Constitutional: Appearance: Normal appearance. HENT: Head: Normocephalic and atraumatic. Nose: Nose normal. Eyes: Extraocular Movements: Extraocular movements intact. Pupils: Pupils are equal, round, and reactive to light. Musculoskeletal: General: Normal range of motion. Cervical back: Normal range of motion. Comments: The left knee: The knee is stable with drawer and Shayy test. There is a protrusion to the (more content not included)... [facility] 09-09-2024 [facility] Telephone (ORTHWS) NICK LOPES ([id number]) 1970 [facility] Date Time Provider Department 09/09/24 TORSTEN AVILES During your visit today, we recorded the following information about you: Lu Jenkins LPN 09/09/2024 4:12 PM Signed Patients called in and states her is still having a lot of issues with his knee even after the injection. She states they were told to call as he will need to see a surgeon. AJAY Mcnally Amy M, MA 09/13/2024 9:12 AM Signed Torsten Aviles V, DO York, Jessica, LPN; [facility] (8:30 AM) Please schedule patient to see Ortho surgery for consultation on chronic knee pain, OA, not responding to conservative treatment. Torsten Aviles DO Please assist patient with an appointment to see Dr. Jose Loo or Wade tSone at [facility]. Thank you! Pura Jeffers 09/13/2024 9:39 AM Signed 1st call attempt, left Brii Walker MA 09/14/2024 1:35 PM Signed calling and asking if her can have a note to be off work until seen by Dr. Atif Loo on 09/26/24? He is continuing to have pain in his knee. Brii James MA 09/15/2024 11:46 AM Signed Letter written and sent to on My chart. Allergies As of Date: 09/09/2024 (No Known Allergies) Date Reviewed: 08/26/2024 Reviewed by: Mary Dale MA - Fully Assessed Reason for Visit: Referral Request [124] Prescriptions as of 09/15/2024 - Capsaicin 0.1 % crea Apply to affected area two times a day. - amLODIPine (NORVASC) 10 mg tablet Take 1 tablet by mouth once daily. - aspirin, enteric coated (ASPIRIN, ENTERIC COATED) 81 mg EC tablet Take 1 tablet by mouth once daily. - levothyroxine (SYNTHROID) 125 mcg tablet Take 1 tablet by mouth once daily. - atorvastatin (LIPITOR) 40 mg tablet Take 1 tablet by mouth daily at bedtime. For cholesterol. - folic acid 1 mg tablet Take 1 tablet by mouth once daily. - diclofenac (VOLTAREN ARTHRITIS PAIN) 1 % topical gel Apply 2 g to affected area four times daily. - iron fum,ps/folic acid/vitC/B3 (IRON FOLATE-F ORAL) Take by mouth. - blood sugar diagnostic (BLOOD GLUCOSE TEST) test strip Test blood sugar(s) 1 times daily. Dx: Type 2 DM - Uncontrolled E11.65 Insulin: No - Lancets Test blood sugar(s) 1 times daily. Dx: Type 2 DM - Uncontrolled E11.65 Insulin: No - metFORMIN ER (GLUCOPHAGE XR) 500 mg 24 hr tablet Take 2 tablets by mouth two times a day. - metoprolol succinate ER (TOPROL XL) 50 mg 24 hr tablet Take 1 tablet by mouth once daily. - PARoxetine (PAXIL) 40 mg tablet Take 1 tablet by mouth once daily. - isosorbide dinitrate (ISORDIL) 5 mg tablet Take 1 tablet by mouth two times a day. - Lancets lancets Test blood sugar(s) 1 times daily. Dx: Type 2 DM - Controlled E11.9 Insulin: No - glimepiride (AMARYL) 2 mg tablet Take 1 tablet by mouth daily with breakfast. - blood sugar diagnostic (BLOOD GLUCOSE TEST) test strip Test blood sugar(s) 1 times daily. Dx: Type 2 DM - Controlled E11.9 Insulin: No - clopidogrel (PLAVIX) 75 mg tablet Take 75 mg by mouth once daily. - nitroglycerin sublingual (NITROQUICK) 0.4 mg SL tablet Nitroglycerin Active 0.4 MG SL Q5M October 24, 2022 12:00am - nystatin-triamcinolone (MYCOLOG) ointment Apply sparingly to groin and penile rash twice daily for irritation/infection up to 2 weeks and then take 1 week off. - COMPOUNDED PRESCRIPTION Initiate BiPAP @ 22/16 cm of water with humidification mask (per patient preference) optional chin strap (if indicated) and lifetime supplies DX: JOSIAH 327.23 Problem List As Of Date 09/09/2024 Noted Resolved Hyperlipidemia [E78.5] 09/14/2006 Family history of heart disease [Z82.49] Overweight [E66.3] 09/25/2023 Tobacco Use Disord-Unsp [XTI0943] SHOULDER REGION DIS NEC [M25.819] 01/27/2007 01/02/2009 JOINT PAIN-PELVIS [M25.559] 06/27/2008 01/02/2009 SPRAIN LUMBAR REGION [S33.5XXA] 06/27/2008 01/02/2009 JOINT PAIN-UP/ARM [M25.529] 06/27/2008 06/27/2008 JOINT PAIN-SHLDER [M25.519] 06/27/2008 01/02/2009 Routine General Medical Examination at [facility]*01/02/2009 12/14/2013 Class: Chronic Thoracic or Lumbosacral Neuritis or Radiculitis*02/23/2009 12/14/2013 Hypothyroidism [E03.9] 10/09/2009 Essential hypertension, benign [I10] 02/06/2010 Leukocytosis [D72.829] 09/19/2011 03/28/2024 Sprain of lumbar region [S33.5XXA] 10/18/2012 12/14/2013 Backache, unspecified [M54.9] 11/11/2012 12/14/2013 Cervicalgia [M54.2] 04/20/2015 Lumbago [M54.50] 04/20/2015 03/28/2024 Concussion without loss of consciousness [S06.0*05/08/2015 04/23/2018 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 Normal [facility] CNOVon 08-26-2024 CNOV Office Visit (FRFHWS ) MARIANNENICK ([id number]) 1970 [facility] Date Time Provider Department 08/26/24 3:30 PM TORSTEN AVILES V [facility] During your visit today, we recorded the following information about you: Mary Dale MA 08/26/2024 3:48 PM Signed AMB ROOMING INTAKE FLOWSHEET DATA Pain Pain Level: 8 Pain Location: Knee-Left Description: Aching, Sharp, Stabbing, Stiffness Duration Amount of Time: (ongoing) Frequency: Continuous Intervention/Comfort measure: Exercise, Medication, Other: See comment, Cold (muscle rub) Durolane injection into left knee LOT # [id number] EXP 01/04/2027 HOWIE Mendoza Dennis, V, DO 08/26/2024 3:48 PM Signed SERVICE DATE: August 26, 2024 PCP: Ginger Lugo MD Subjective Patient ID: Nick is a 53 year old male. Chief Complaint: Patient presents with: Durolane injection into left knee PAIN EVALUATION 08/26/2024 1514 Pain Level: 8 Pain Location: Knee-Left Description: Aching;Sharp;Stabbing;S tiffness Duration Amount of Time: -- ongoing Frequency: Continuous Intervention/Comfort measure: Exercise;Medication;Oth er: See comment;Cold muscle rub FREDY Paredes continues to have left medial knee pain. Occultly with ambulation particularly going up and down stairs. Notices no redness or swelling. 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 Urinary Incontinence Central Sleep Apnea Diabetes Mellitus Type 2, Controlled, Without Complications ([facility]) Obesity, Class Iii, Bmi 40-49.9 (Morbid Obesity) ([facility]) Situational Stress Theo (Generalized Anxiety Disorder) Josiah (Obstructive Sleep Apnea) Ddd (Degenerative Disc Disease), Lumbar Spinal Stenosis of Lumbar Region Without Neurogenic Claudication Cervical Stenosis of Spine Coronary Artery Disease Involving [place] Coronary Artery of [place] Heart Without Angina Pectoris S/P Ptca (Percutaneous Transluminal Coronary Angioplasty) Status Post Insertion of Drug-Eluting Stent into Left Anterior Descending (Lad) Artery Benign Prostatic Hyperplasia With Urinary Obstruction Calculus of Ureter Depressive Disorder Elevated Liver Enzymes Erectile Dysfunction Obstructive Hydronephrosis Tobacco Dependence Syndrome Folate Deficiency PAST MEDICAL HISTORY Diagnosis Date Elevated white blood cell count has been reviewed by hematology. will follow periodically Fam hx-cardiovas dis NEC n/a father, of AL at 45 Hypothyroid Other and unspecified hyperlipidemia [...] ATTACK AT AGE 45 Heart Mother no blockages, hyperlipidemia Breast Cancer Mother Diabetes Maternal Grandmother Breast Cancer Paternal Grandfather Hypertension Mother around age 60 Social History Tobacco Use Smoking status: Former Current packs/day: 0.00 Average packs/day: 1 pack/day for 17.0 years (17.0 ttl pk-yrs) Types: Cigarettes Start date: 10/08/2005 Quit date: 10/08/2022 Years since quittin.8 Smokeless tobacco: Current Tobacco comments: 06/27/2022 5 cigs/day Vaping Use Vaping status: Never Used Substance Use Topics Alcohol use: Yes Comment: occasionally (once every 2-3) Drug use: No ALLERGIES No Known Allergies MEDICATIONS: amLODIPine (NORVASC) 10 mg tablet Take 1 tablet by mouth once daily. aspirin, enteric coated (ASPIRIN, ENTERIC COATED) 81 mg EC tablet Take 1 tablet by mouth once daily. levothyroxine (SYNTHROID) 125 mcg tablet Take 1 tablet by mouth once daily. atorvastatin (LIPITOR) 40 mg tablet Take 1 tablet by mouth daily at bedtime. For cholesterol. folic acid 1 mg tablet Take 1 tablet by mouth once daily. iron fum,ps/folic acid/vitC/B3 (IRON FOLATE-F ORAL) Take by mouth. metFORMIN ER (GLUCOPHAGE XR) 500 mg 24 hr tablet Take 2 tablets by mouth two times a day. metoprolol succinate ER (TOPROL XL) 50 mg 24 hr tablet Take 1 tablet by mouth once daily. PARoxetine (PAXIL) 40 mg tablet Take 1 tablet by mouth once daily. isosorbide dinitrate (ISORDIL) 5 mg tablet Take 1 tablet by mouth two times a day. glimepiride (AMARYL) 2 mg tablet Take 1 tablet by mouth daily with br (more content not included)... Normal [facility] Large Joint Arthro/Inj: L kn ee jointon 08-26-2024 Torsten Aviles V, DO 08/26/2024 3:48 PM Large Joint Arthro/Inj: L knee joint Informed Consent Consent Obtained: Verbal [place] Protocol A moment to CARE was completed. SIGN IN TIME OUT 08/26/2024 3:45 PM The procedure site was prepped in the usual sterile fashion. Site: L knee joint Medications: 3 mL hyaluronate sodium, stabilized 60 mg/3 mL Anesthetics: 2 mL lidocaine (PF) 10 mg/mL (1 %) Outcome: Tolerated well, no immediate complications Post-injection instructions were reviewed with the patient and the patient voiced understanding of these instructions. [facility] Carie 08-10-2024 ANGELINE Telephone (FAMPWS) NICK LOPES ([id number]) 1970 [facility] Date Time Provider Department 08/10/24 GINGER LUGOWS During your visit today, we recorded the following information about you: Ginger Lugo MD 08/10/2024 12:41 PM Signed White count is slightly up. Likely ok. Call if any s/s of infection.recheck cbc in four weeks. Could be related to steroids. Sugars are rising. Watch diet. Recheck sugars with A1c in three months. Kylie Tran MA 08/10/2024 1:52 PM Signed Patient informed and verbalized understanding. Kylie Tran MA Allergies As of Date: 08/10/2024 (No Known Allergies) Date Reviewed: 08/09/2024 Reviewed by: Kylie Tran MA - Fully Assessed Reason for Visit: Results [95] Primary Visit Diagnosis:Leukocytosis, unspecified type [D72.829] Other Visit Diagnosis:Controlled type 2 diabetes mellitus without complication, without long-term current use of insulin (HCC) [E11.9] Order(s):HEMOGLOBIN A1C [MVZMZ0A] Order #: [id number] FUTURE COMPLETE BLOOD COUNT [SQCBC] Order #: [id number] FUTURE Prescriptions as of 08/10/2024 - predniSONE (DELTASONE) 10 mg tablet TAKE BY MOUTH ONE(1) TABLET THREE TIMES DAILY FOR 4 DAYS, THEN TAKE ONE(1) TABLET TWO(2) TIMES DAILY FOR 4 DAYS, THEN TAKE ONE(1) TABLET DAILY. - levothyroxine (SYNTHROID) 125 mcg tablet Take 1 tablet by mouth once daily. - atorvastatin (LIPITOR) 40 mg tablet Take 1 tablet by mouth daily at bedtime. For cholesterol. - folic acid 1 mg tablet Take 1 tablet by mouth once daily. - diclofenac (VOLTAREN ARTHRITIS PAIN) 1 % topical gel Apply 2 g to affected area four times daily. - iron fum,ps/folic acid/vitC/B3 (IRON FOLATE-F ORAL) Take by mouth. - blood sugar diagnostic (BLOOD GLUCOSE TEST) test strip Test blood sugar(s) 1 times daily. Dx: Type 2 DM - Uncontrolled E11.65 Insulin: No - Lancets Test blood sugar(s) 1 times daily. Dx: Type 2 DM - Uncontrolled E11.65 Insulin: No - metFORMIN ER (GLUCOPHAGE XR) 500 mg 24 hr tablet Take 2 tablets by mouth two times a day. - metoprolol succinate ER (TOPROL XL) 50 mg 24 hr tablet Take 1 tablet by mouth once daily. - PARoxetine (PAXIL) 40 mg tablet Take 1 tablet by mouth once daily. - isosorbide dinitrate (ISORDIL) 5 mg tablet Take 1 tablet by mouth two times a day. - Lancets lancets Test blood sugar(s) 1 times daily. Dx: Type 2 DM - Controlled E11.9 Insulin: No - glimepiride (AMARYL) 2 mg tablet Take 1 tablet by mouth daily with breakfast. - amLODIPine (NORVASC) 10 mg tablet Take 1 tablet by mouth once daily. - blood sugar diagnostic (BLOOD GLUCOSE TEST) test strip Test blood sugar(s) 1 times daily. Dx: Type 2 DM - Controlled E11.9 Insulin: No - clopidogrel (PLAVIX) 75 mg tablet Take 75 mg by mouth once daily. - aspirin, enteric coated (ASPIRIN, ENTERIC COATED) 81 mg EC tablet Take 81 mg by mouth once daily. - nitroglycerin sublingual (NITROQUICK) 0.4 mg SL tablet Nitroglycerin Active 0.4 MG SL Q5M October 24, 2022 12:00am - nystatin-triamcinolone (MYCOLOG) ointment Apply sparingly to groin and penile rash twice daily for irritation/infection up to 2 weeks and then take 1 week off. - COMPOUNDED PRESCRIPTION Initiate BiPAP @ 22/16 cm of water with humidification mask (per patient preference) optional chin strap (if indicated) and lifetime supplies DX: JOSIAH 327.23 Problem List As Of Date 08/10/2024 Noted Resolved Hyperlipidemia [E78.5] 09/14/2006 Family history of heart disease [Z82.49] Overweight [E66.3] 09/25/2023 Tobacco Use Disord-Unsp [QNY7308] SHOULDER REGION DIS NEC [M25.819] 01/27/2007 01/02/2009 JOINT PAIN-PELVIS [M25.559] 06/27/2008 01/02/2009 SPRAIN LUMBAR REGION [S33.5XXA] 06/27/2008 01/02/2009 JOINT PAIN-UP/ARM [M25.529] 06/27/2008 06/27/2008 JOINT PAIN-SHLDER [M25.519] 06/27/2008 01/02/2009 Routine General Medical Examination at [facility]*01/02/2009 12/14/2013 Class: Chronic Thoracic or Lumbosacral Neuritis or Radiculitis*02/23/2009 12/14/2013 Hypothyroidism [E03.9] 10/09/2009 Essential hypertension, benign [I10] 02/06/2010 Leukocytosis [D72.829] 09/19/2011 03/28/2024 Sprain of lumbar region [S33.5XXA] 10/18/2012 12/14/2013 Backache, unspecified [M54.9] 11/11/2012 12/14/2013 Cervicalgia [M54.2] 04/20/2015 Lumbago [M54.50] 04/20/2015 03/28/2024 Concussion without loss of consciousness [S06.0*05/08/2015 04/23/2018 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*05/08/2015 Urinary incontinence [R32] 06/13/2015 Frequency [FGK2519] 06/13/2015 04/23/2018 Urgency of urination [R39.15] 06/13/2015 04/23/2018 Nocturia [R35.1] 06/13/2015 03/28/2024 Central sleep apnea [G47.31] 04/02/2018 Diabetes mellitus type 2, controlled, without c*03/25/2021 Obesity, Class III, BMI 40-49.9 (morbid obesity*06/17/2022 Situational stress [F43.9] 06/17/2022 THEO (generalized anxiety disorder) [F41.1] 06/17/2022 OS (more content not included)... Normal [facility] CBC W Auto Differential pane l (Bld)on 08-09-2024 Basophils (Bld) [#/Vol] 0.07 10*3/uL [facility] Basophils/100 WBC (Bld) 0.5 % C [facility] Differential cell count method Nom (Bld) Auto [facility] Eosinophils (Bld) [#/Vol] 0.07 10*3/uL [facility] Eosinophils/100 WBC (Bld) 0.5 % [facility] Erythrocyte distribution width (RBC) [Ratio] 15.6 % High 11.5 - 15.0 % [facility] Hematocrit (Bld) [Volume fraction] 45.9 % 39.0 - 51.0 % [facility] Hemoglobin (Bld) [Mass/Vol] 14.5 g/dL 13.0 - 17.0 g/dL [facility] Immature granulocytes (Bld) [#/Vol] 0.19 10*3/uL High [facility] Immature granulocytes/100 WBC (Bld) 1.3 % [facility] Interpretation and review of laboratory results Abnormal [facility] Lymphocytes (Bld) [#/Vol] 2.36 10*3/uL [facility] Lymphocytes/100 WBC (Bld) 16.4 % [facility] MCH (RBC) [Entitic mass] 27.5 pg 26.0 - 34.0 pg [facility] MCHC (RBC) [Mass/Vol] 31.6 g/dL 30.5 - 36.0 g/dL [facility] MCV (RBC) [Entitic vol] 87.1 fL 80.0 - 100.0 fL [facility] Monocytes (Bld) [#/Vol] 0.72 10*3/uL [facility] Monocytes/100 WBC (Bld) 5.0 % C [facility] Neutrophils (Bld) [#/Vol] 10.99 10*3/uL High [facility] Neutrophils/100 WBC (Bld) 76.3 % [facility] Nucleated RBC (Bld) [#/Vol] [facility] Nucleated RBC/100 WBC (Bld) [Ratio] 0.0 % /100 WBC [facility] Platelet mean volume (Bld) [Entitic vol] 10.6 fL 9.0 - 12.7 fL [facility] Platelets (Bld) [#/Vol] 165 10*3/uL [facility] RBC (Bld) [#/Vol] 5.27 10*6/uL 4.20 - 6.0 0 m/uL [facility] WBC (Bld) [#/Vol] 14.40 10*3/uL High [facility] Basophils (Bld) [#/Vol] 0.07 10*3/uL Normal <0.11 [facility] Comment on above: Order Comment: Speci men Type: BLOOD SPECIMENOrdering Facility: [facility] Address: [address] [place] [address] Performed By: #### 5 7021-8 ####[facility] LABCLIA [id number] [place] [address] [place] Basophils/100 WBC (Bld) 0.5 % Normal [facility] Comment on above: Order Comment: Speci men Type: BLOOD SPECIMENOrdering Facility: [facility] Address: [address] [place] [address] Performed By: #### 5 7021-8 ####[facility] LABCLIA [id number] [place] [address] [place] Differential cell count method Nom (Bld) Auto Normal [facility] Comment on above: Order Comment: Speci men Type: BLOOD SPECIMENOrdering Facility: [facility] Address: [address] [place] [address] Performed By: #### 5 7021-8 ####[facility] LABCLIA [id number] [place] [address] [place] Eosinophils (Bld) [#/Vol] 0.07 10*3/uL Normal <0.46 [facility] Comment on above: Order Comment: Speci men Type: BLOOD SPECIMENOrdering Facility: [facility] Address: [address] [place] [address] Performed By: #### 5 7021-8 ####[facility] LABCLIA [id number] [place] [address] [place] Eosinophils/100 WBC (Bld) 0.5 % Normal [facility] Comment on above: Order Comment: Speci men Type: BLOOD SPECIMENOrdering Facility: [facility] Address: [address] [place] [address] Performed By: #### 5 7021-8 ####[facility] LABCLIA [id number] [place] [address] [place] Erythrocyte distribution width (RBC) [Ratio] 15.6 % High 11.5-15.0 [facility] Comment on above: Order Comment: Speci men Type: BLOOD SPECIMENOrdering Facility: [facility] Address: [address] [place] [address] Performed By: #### 5 7021-8 ####[facility] LABIA [id number] [place] [address] [place] Hematocrit (Bld) [Volume fraction] 45.9 % Normal 39.0-51.0 [facility] Comment on above: Order Comment: Speci men Type: BLOOD SPECIMENOrdering Facility: [facility] Address: [address] [place] [address] Performed By: #### 5 7021-8 ####[facility] LABIA [id number] [place] [address] [place] Hemoglobin (Bld) [Mass/Vol] 14.5 g/dL Normal 13.0-17.0 [facility] Comment on above: Order Comment: Speci men Type: BLOOD SPECIMENOrdering Facility: [facility] Address: [address] [place] [address] Performed By: #### 5 7021-8 ####[facility] LABIA [id number] [place] [address] [place] Immature granulocytes (Bld) [#/Vol] 0.19 10*3/uL High <0.10 [facility] Comment on above: Order Comment: Speci men Type: BLOOD SPECIMENOrdering Facility: [facility] Address: [address] [place] [address] Performed By: #### 5 7021-8 ####[facility] LABIA [id number] [place] [address] [place] Immature granulocytes/100 WBC (Bld) 1.3 % Normal [facility] Comment on above: Order Comment: Speci men Type: BLOOD SPECIMENOrdering Facility: [facility] Address: [address] [place] [address] Performed By: #### 5 7021-8 ####[facility] LABCLIA [id number] [place] [address] [place] Lymphocytes (Bld) [#/Vol] 2.36 10*3/uL Normal 1.00-4.00 [facility] Comment on above: Order Comment: Speci men Type: BLOOD SPECIMENOrdering Facility: [facility] Address: [address] [place] [address] Performed By: #### 5 7021-8 ####[facility] LABIA [id number] [place] [address] [place] Lymphocytes/100 WBC (Bld) 16.4 % Normal [facility] Comment on above: Order Comment: Speci men Type: BLOOD SPECIMENOrdering Facility: [facility] Address: [address] [place] [address] Performed By: #### 5 7021-8 ####[facility] LABIA [id number] [place] [address] [place] MCH (RBC) [Entitic mass] 27.5 pg Normal 26.0-34.0 [facility] Comment on above: Order Comment: Speci men Type: BLOOD SPECIMENOrdering Facility: [facility] Address: [address] [place] [address] Performed By: #### 5 7021-8 ####[facility] LABCLIA [id number] [place] [address] [place] MCHC (RBC) [Mass/Vol] 31.6 g/dL Normal 30.5-36.0 [facility] Comment on above: Order Comment: Speci men Type: BLOOD SPECIMENOrdering Facility: [facility] Address: [address] [place] [address] Performed By: #### 5 7021-8 ####[facility] LABIA [id number] [place] [address] [place] MCV (RBC) [Entitic vol] 87.1 fL Normal 80.0-100.0 C [facility] Comment on above: Order Comment: Speci men Type: BLOOD SPECIMENOrdering Facility: [facility] Address: [address] [place] [address] Performed By: #### 5 7021-8 ####[facility] LABIA [id number] [place] [address] [place] Monocytes (Bld) [#/Vol] 0.72 10*3/uL Normal <0.87 [facility] Comment on above: Order Comment: Speci men Type: BLOOD SPECIMENOrdering Facility: [facility] Address: [address] [place] [address] Performed By: #### 5 7021-8 ####[facility] LABIA [id number] [place] [address] [place] Monocytes/100 WBC (Bld) 5.0 % Normal [facility] Comment on above: Order Comment: Speci men Type: BLOOD SPECIMENOrdering Facility: [facility] Address: [address] [place] [address] Performed By: #### 5 7021-8 ####[facility] LABIA [id number] [place] [address] [place] Neutrophils (Bld) [#/Vol] 10.99 10*3/uL High 1.45-7.50 [facility] Comment on above: Order Comment: Speci men Type: BLOOD SPECIMENOrdering Facility: [facility] Address: [address] [place] [address] Performed By: #### 5 7021-8 ####[facility] LABIA [id number] [place] [address] [place] Neutrophils/100 WBC (Bld) 76.3 % Normal [facility] Comment on above: Order Comment: Speci men Type: BLOOD SPECIMENOrdering Facility: [facility] Address: [address] [place] [address] Performed By: #### 5 7021-8 ####[facility] LABCLIA [id number] [place] [address] [place] Nucleated RBC (Bld) [#/Vol] 10*3/uL Normal <0.01 [facility] Comment on above: Order Comment: Speci men Type: BLOOD SPECIMENOrdering Facility: [facility] Address: [address] [place] [address] Performed By: #### 5 7021-8 ####[facility] LABIA [id number] [place] [address] [place] Nucleated RBC/100 WBC (Bld) [Ratio] 0.0 /100 WBC Normal [facility] Comment on above: Order Comment: Speci men Type: BLOOD SPECIMENOrdering Facility: [facility] Address: [address] [place] [address] Performed By: #### 5 7021-8 ####[facility] LABIA [id number] [place] [address] [place] Platelet mean volume (Bld) [Entitic vol] 10.6 fL Normal 9.0-12.7 [facility] Comment on above: Order Comment: Speci men Type: BLOOD SPECIMENOrdering Facility: [facility] Address: [address] [place] [address] Performed By: #### 5 7021-8 ####[facility] LABIA [id number] [place] [address] [place] Platelets (Bld) [#/Vol] 165 10*3/uL Normal 150-400 [facility] Comment on above: Order Comment: Speci men Type: BLOOD SPECIMENOrdering Facility: [facility] Address: [address] [place] [address] Performed By: #### 5 7021-8 ####[facility] LABCLIA [id number] [place] [address] [place] RBC (Bld) [#/Vol] 5.27 10*6/uL Normal 4.20-6.00 [facility] Comment on above: Order Comment: Speci men Type: BLOOD SPECIMENOrdering Facility: [facility] Address: [address] [place] [address] Performed By: #### 5 7021-8 ####[facility] LABCLIA [id number] [place] [address] [place] WBC (Bld) [#/Vol] 14.40 10*3/uL High 3.70-11.00 [facility] Comment on above: Order Comment: Speci men Type: BLOOD SPECIMENOrdering Facility: [facility] Address: [address] [place] [address] Performed By: #### 5 7021-8 ####[facility] LABCLIA [id number] [address] [place] CNOVon 08-09-2024 CNOV Office Visit (FAMPWS ) NICK LOPES ([id number]) 1970 [facility] Date Time Provider Department 08/09/24 12:40 PM GINGER LUGO FAMPWS During your visit today, we recorded the following information about you: Pulse Blood pressure Weight Height 75/minute 134/88 140.8 kg 1.664 m Ginger Lugo MD 08/09/2024 1:32 PM Signed Patient presents with: Follow Up HPI: Patient presents today for office visit for routine follow up on chronic issues. HLD: Continues Atorvastatin 40 mg daily. No myalgias. DM: Sugars are much better Last A1c in March 6.5 down from 11.1 Continues on Glimepiride 2 mg daily Metformin 500 mg 2 tabs BID Does not monitor sugars often No hypoglycemic spells No unexpected weight loss Does not watch his diet Believes his eyes were checked back in summer at [facility]. Folate added back in March. Anemia stable. Due for labs. THYROID: Continues Levothyroxine 125 mcg daily Denies any energy, hair or skin changes. No weight changes. No longer sees Cardiology. HTN: Monitors BP at home. Denies chest pain and shortness of breath Some mild headaches. Denies dizziness Denies palpitations or syncopal episodes No edema JOSIAH: DME: [employer]ade[employer] Payton. Needs new machine and supplies Last PSG with titration March 2018 Using BiPAP nightly No snoring Sleeping well through the night Feels rested when waking Some daytime fatigue Benefiting from treatment and should continue therapy Machine is saying it is not working. Needs replaced. Having issues with the motor. Has checked with his supplier. PSYCH: Continues Paxil 40 mg daily Feels anger is controlled with med No current anxiety or depression MEDICATIONS: Current Outpatient Medications Medication Sig levothyroxine (SYNTHROID) 125 mcg tablet Take 1 tablet by mouth once daily. atorvastatin (LIPITOR) 40 mg tablet Take 1 tablet by mouth daily at bedtime. For cholesterol. folic acid 1 mg tablet Take 1 tablet by mouth once daily. iron fum,ps/folic acid/vitC/B3 (IRON FOLATE-F ORAL) Take by mouth. blood sugar diagnostic (BLOOD GLUCOSE TEST) test strip Test blood sugar(s) 1 times daily. Dx: Type 2 DM - Uncontrolled E11.65 Insulin: No Lancets Test blood sugar(s) 1 times daily. Dx: Type 2 DM - Uncontrolled E11.65 Insulin: No metFORMIN ER (GLUCOPHAGE XR) 500 mg 24 hr tablet Take 2 tablets by mouth two times a day. metoprolol succinate ER (TOPROL XL) 50 mg 24 hr tablet Take 1 tablet by mouth once daily. PARoxetine (PAXIL) 40 mg tablet Take 1 tablet by mouth once daily. isosorbide dinitrate (ISORDIL) 5 mg tablet Take 1 tablet by mouth two times a day. Lancets lancets Test blood sugar(s) 1 times daily. Dx: Type 2 DM - Controlled E11.9 Insulin: No glimepiride (AMARYL) 2 mg tablet Take 1 tablet by mouth daily with breakfast. amLODIPine (NORVASC) 10 mg tablet Take 1 tablet by mouth once daily. blood sugar diagnostic (BLOOD GLUCOSE TEST) test [...] MG SL Q5M October 24, 2022 12:00am nystatin-triamcinolone (MYCOLOG) ointment Apply sparingly to groin and penile rash twice daily for irritation/infection up to 2 weeks and then take 1 week off. COMPOUNDED PRESCRIPTION Initiate BiPAP @ 22/16 cm of water with humidification mask (per patient preference) optional chin strap (if indicated) and lifetime supplies DX: JOSIAH 327.23 predniSONE (DELTASONE) 10 mg tablet TAKE BY MOUTH ONE(1) TABLET THREE TIMES DAILY FOR 4 DAYS, THEN TAKE ONE(1) TABLET TWO(2) TIMES DAILY FOR 4 DAYS, THEN TAKE ONE(1) TABLET DAILY. (Patient not taking: Reported on 08/09/2024) diclofenac (VOLTAREN ARTHRITIS PAIN) 1 % topical gel Apply 2 g to affected area four times daily. (Patient not taking: Reported on 08/03/2024) No current facility-administered medications for this visit. ALLERGIES: ALLERGIES No Known Allergies PAST MEDICAL HISTORY Diagnosis Date Elevated white blood cell count has been reviewed by hematology. will follow periodically Fam hx-cardiovas dis NEC n/a father, of [place] at 45 Hypothyroid Other and unspecified hyperlipidemia [...] Tonsillectomy FAMILY HISTORY Problem Relation Age of (more content not included)... Normal [facility] FOLATE, SERUMon 08-09-2024 Folate [Mass/Vol] 19.7 ng/mL 4.7 - PINF ng/mL [facility] Folate SerPl-mCncon 08-09-20 Folate [Mass/Vol] 19.7 ng/mL Normal >4.7 [facility] Comment on above: Order Comment: Jeannine matias Type: BLOOD SPECIMENOrdering Facility: [facility] Address: [address] [place] [address] Performed By: #### 2 284-8 ####[facility] LABCLIA [id number] [place] [address] [place] Folate [Mass/Vol]on 08-09-20 Interpretation and review of laboratory results Normal [facility] HbA1c (Bld)on 08-09-2024 Average glucose Estimated from glycated hemoglobin (Bld) [Mass/Vol] 166 mg/dL Normal [facility] Comment on above: Order Comment: Jeannine matias Type: BLOOD SPECIMENOrdering Facility: [facility] Address: [address] [place] [address] Result Comment: eAG: (Estimated average glucose) is a calculated value from HgbA1c and is membership sales representative of the average blood glucose level in the last 2-3 month period. Performed By: #### 5 5454-3 ####[facility] LABCLIA [id number] [place] [address] [place] HbA1c (Bld) [Mass fraction] 7.4 % High 4.3-5.6 [facility] Comment on above: Order Comment: Jeannine matias Type: BLOOD SPECIMENOrdering Facility: [facility] Address: [address] [place] [address] Result Comment: [place] Diabetes Association guidelines indicate that patients with HgbA1c in the range 5.7-6.4% are at increased risk for development of diabetes, and intervention by lifestyle modification may be beneficial. HgbA1c greater or equal to 6.5% is considered diagnostic of diabetes. Performed By: #### 5 5454-3 ####[facility] LABCLIA [id number] [place] [id number] [facility] Carie 08-05-2024 CNPN Telephone (PHA) NICK LOPES ([id number]) 1970 [facility] Date Time Provider Department 08/05/24 [place] V [facility] During your visit today, we recorded the following information about you: Chary Contreras MA 08/05/2024 12:26 PM Signed Additional Clinical Information Request Please reply all to this email Please provide the following information to facilitate or complete the prior authorization x Clinical Information - See Comments Sign OV Notes Clarify Information Updated / Correct Insurance Updated diagnosis code on order and or office note Medical Necessity Not Met Per Payer Guidelines Payer Request Additional Information Other (must complete Comment section) Patient Name: [facility]opes [facility] name[facility]s): [id number] durolane Comments: payer policy requires trial of nsaids- no mention in ov note- please advise is nsaid trial has been completed Torsten Aviles V, DO 08/08/2024 3:30 PM Signed Patient is on blood thinner- NSAID's are contra-indicated in his situation Mary Dale MA 08/10/2024 10:42 AM Signed Patient contacted for copy of insurance card to be uploaded into [employer]. Gwendolyn Santiago MA 08/12/2024 12:16 PM Signed Patients Liliana phones to reports updating insurance information in patients chart. She could not give details on how this was completed, just that it was in his chart. I explained there was a chance the office was not aware of the update until time of this message. Patient would like a phone call on the approval/denial of injection. HOWIE Leonardo Amy M, MA 08/16/2024 9:51 AM Signed Patient has been authorized for Durolane injection. He has been contacted and scheduled. Allergies As of Date: 08/05/2024 (No Known Allergies) Date Reviewed: 08/03/2024 Reviewed by: Mary Dale MA - Fully Assessed Reason for Visit: Insurance Authorization [[id number]] Cmt: Prior Auth Delayed: Additional Info Needed Prescriptions as of 08/16/2024 - predniSONE (DELTASONE) 10 mg tablet TAKE BY MOUTH ONE(1) TABLET THREE TIMES DAILY FOR 4 DAYS, THEN TAKE ONE(1) TABLET TWO(2) TIMES DAILY FOR 4 DAYS, THEN TAKE ONE(1) TABLET DAILY. - levothyroxine (SYNTHROID) 125 mcg tablet Take 1 tablet by mouth once daily. - atorvastatin (LIPITOR) 40 mg tablet Take 1 tablet by mouth daily at bedtime. For cholesterol. - folic acid 1 mg tablet Take 1 tablet by mouth once daily. - diclofenac (VOLTAREN ARTHRITIS PAIN) 1 % topical gel Apply 2 g to affected area four times daily. - iron fum,ps/folic acid/vitC/B3 (IRON FOLATE-F ORAL) Take by mouth. - blood sugar diagnostic (BLOOD GLUCOSE TEST) test strip Test blood sugar(s) 1 times daily. Dx: Type 2 DM - Uncontrolled E11.65 Insulin: No - Lancets Test blood sugar(s) 1 times daily. Dx: Type 2 DM - Uncontrolled E11.65 Insulin: No - metFORMIN ER (GLUCOPHAGE XR) 500 mg 24 hr tablet Take 2 tablets by mouth two times a day. - metoprolol succinate ER (TOPROL XL) 50 mg 24 hr tablet Take 1 tablet by mouth once daily. - PARoxetine (PAXIL) 40 mg tablet Take 1 tablet by mouth once daily. - isosorbide dinitrate (ISORDIL) 5 mg tablet Take 1 tablet by mouth two times a day. - Lancets lancets Test blood sugar(s) 1 times daily. Dx: Type 2 DM - Controlled E11.9 Insulin: No - glimepiride (AMARYL) 2 mg tablet Take 1 tablet by mouth daily with breakfast. - amLODIPine (NORVASC) 10 mg tablet Take 1 tablet by mouth once daily. - blood sugar diagnostic (BLOOD GLUCOSE TEST) test strip Test blood sugar(s) 1 times daily. Dx: Type 2 DM - Controlled E11.9 Insulin: No - clopidogrel (PLAVIX) 75 mg tablet Take 75 mg by mouth once daily. - aspirin, enteric coated (ASPIRIN, ENTERIC COATED) 81 mg EC tablet Take 81 mg by mouth once daily. - nitroglycerin sublingual (NITROQUICK) 0.4 mg SL tablet Nitroglycerin Active 0.4 MG SL Q5M October 24, 2022 12:00am - nystatin-triamcinolone (MYCOLOG) ointment Apply sparingly to groin and penile rash twice daily for irritation/infection up to 2 weeks and then take 1 week off. - COMPOUNDED PRESCRIPTION Initiate BiPAP @ 22/16 cm of water with humidification mask (per patient preference) optional chin strap (if indicated) and lifetime supplies DX: JOSIAH 327.23 Problem List As Of Date 08/05/2024 Noted Resolved Hyperlipidemia [E78.5] 09/14/2006 Family history of heart disease [Z82.49] Overweight [E66.3] 09/25/2023 Tobacco Use Disord-Unsp [EAQ3244] SHOULDER REGION DIS NEC [M25.819] 01/27/2007 01/02/2009 JOINT PAIN-PELVIS [M25.559] 06/27/2008 01/02/2009 SPRAIN LUMBAR REGION [S33.5XXA] 06/27/2008 01/02/2009 JOINT PAIN-UP/ARM [M25.529] 06/27/2008 06/27/2008 JOINT PAIN-SHLDER [M25.519] 06/27/2008 01/02/2009 Routine General Medical Examination at [facility]*01/02/2009 12/14/2013 Class: Chronic Thoracic or Lumbosacral Neuritis or R (more content not included)... Normal [facility] CNCOon 08-03-2024 CNCO Letter Text Normal [facility] CNOVon 08-03-2024 CNOV Office Visit (FRFHWS ) NICK LOPES ([id number]) 1970 [address] [facility] Date Time Provider Department 08/03/24 2:30 PM TORSTEN AVILES V FRFHWS During your visit today, we recorded the following information about you: Mary Dale MA 08/03/2024 3:00 PM Signed AMB ROOMING INTAKE FLOWSHEET DATA Pain Pain Level: 10 Pain Location: Knee-Left Description: Tightness, Aching Duration Amount of Time: (ongoing) Frequency: Continuous Intervention/Comfort measure: Heat, Cold, Other: See comment, Exercise (muscle rubs, knee brace, cane use) Torsten Aviles V, DO 08/03/2024 3:00 PM Signed SERVICE DATE: August 03, 2024 PCP: Ginger Lugo MD Subjective Patient ID: Nick is a 53 year old male. Chief Complaint: Patient presents with: 12 week 5 days post visit left knee pain with injection giv PAIN EVALUATION 08/03/2024 1422 Pain Level: 10 Pain Location: Knee-Left Description: Tightness;Aching Duration Amount of Time: -- ongoing Frequency: Continuous Intervention/Comfort measure: Heat;Cold;Other: See comment;Exercise muscle rubs, knee brace, cane use HPI Nick presents today for follow-up of left knee pain/medial compartment osteoarthritis. He is 12 weeks and 5 days post last visit cortisone injection was given. He states the cortisone injection did not provide any relief. He is also completed 6 weeks of physical therapy with no significant benefit. He continues to have significant pain over the medial knee when he tries to stand or walk. He states that the pain is so severe he is having difficulty going up or down stairs. 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 Urinary Incontinence Central Sleep Apnea Diabetes Mellitus Type 2, Controlled, Without Complications ([facility]) Obesity, Class Iii, Bmi 40-49.9 (Morbid Obesity) (Formerly [facility]) Situational Stress Theo (Generalized Anxiety Disorder) Josiah (Obstructive Sleep Apnea) Ddd (Degenerative Disc Disease), Lumbar Spinal Stenosis of Lumbar Region Without Neurogenic Claudication Cervical Stenosis of Spine Coronary Artery Disease Involving [place] Coronary Artery of [place] Heart Without Angina Pectoris S/P Ptca (Percutaneous Transluminal Coronary Angioplasty) Status Post Insertion of Drug-Eluting Stent into Left Anterior Descending (Lad) Artery Benign Prostatic Hyperplasia With Urinary Obstruction Calculus of Ureter Depressive Disorder Elevated Liver Enzymes Erectile Dysfunction Obstructive Hydronephrosis Tobacco Dependence Syndrome Folate Deficiency PAST MEDICAL HISTORY Diagnosis Date Elevated white blood cell count has been reviewed by hematology. will follow periodically Fam hx-cardiovas dis NEC n/a father, of [place] at 45 Hypothyroid Other and unspecified hyperlipidemia [...] ATTACK AT AGE 45 Heart Mother no blockages, hyperlipidemia Breast Cancer Mother Diabetes Maternal Grandmother Breast Cancer Paternal Grandfather Hypertension Mother around age 60 Social History Tobacco Use Smoking status: Former Current packs/day: 0.00 Average packs/day: 1 pack/day for 17.0 years (17.0 ttl pk-yrs) Types: Cigarettes Start date: 10/08/2005 Quit date: 10/08/2022 Years since quittin.8 Smokeless tobacco: Current Tobacco comments: 06/27/2022 5 cigs/day Vaping Use Vaping status: Never Used Substance Use Topics Alcohol use: Yes Comment: occasionally (once every 2-3) Drug use: No ALLERGIES No Known Allergies MEDICATIONS: levothyroxine (SYNTHROID) 125 mcg tablet Take 1 tablet by mouth once daily. atorvastatin (LIPITOR) 40 mg tablet Take 1 tablet by mouth daily at bedtime. For cholesterol. folic acid 1 mg tablet Take 1 tablet by mouth once daily. metFORMIN ER (GLUCOPHAGE XR) 500 mg 24 hr tablet Take 2 tablets by mouth two times a day. metoprolol succinate ER (TOPROL XL) 50 mg 24 hr tablet Take 1 tablet by mouth once daily. PARoxetine (PAXIL) 40 mg tablet Take 1 tablet by mouth once daily. isosorbide dinitrate (ISORDIL) 5 mg tablet Take 1 tablet by mouth two times a day. glimepiride (AMARYL) 2 mg (more content not included)... [facility] CNPNon 07-25-2024 CNPN Telephone ([facility]ANE[facility]) MARIANNENICK Light ([id number]) 1970 M [facility] Date Time Provider Department 07/25/24 TORSTEN AVILES During your visit today, we recorded the following information about you: Lu Jenkins LPN 07/25/2024 10:09 AM Signed Patients called in and states he has been having pain in his knee which he is rating a 10 on the pain scale. He is wondering if he is able to get shots or something for the pain as it is causing him to have problems walking. would like a call back at [phone]. AJAY Mcnally Amy M, MA 07/25/2024 3:08 PM Signed Patient is not eligible for cortisone injection until after 08/05/2024. Danielle Riojas MA 07/25/2024 4:42 PM Signed Pt's calling back for info. Advised of next potential cortisone injection.(After 08/05) Pt was wanting to know if there was another injection that Dr. Aviles would recommend since he did not have very much improvement with the cortisone last time. Please review and advise. HOWIE Helm Amy M, MA 07/26/2024 10:27 AM Signed Torsten Aviels V, DO You; [facility] Pool2 hours ago (7:46 AM) Durolane or Gel 1 could be an option if insurance approves. DO Chito Cheng Amy M, MA 07/26/2024 10:45 AM Signed Referral created for Durolane injection into left knee. , Alyson has been notified. Patient got on the phone with me to hear how the process works. He states that his pain is so bad. He has been back to work 1 1/2 weeks, but is hardly able to get around. He would like a note to be off until he can get the gel injection. Advised patient that he has not been seen in our office since 05/06/[address] Aviles may want to see him back in the office before writing a note to be off work. Patient states he works again on and it will need to be before then. Please advise. Mary Dale MA 07/27/2024 8:52 AM Signed Torsten Aviles V, DO You18 hours ago (1:55 PM) I will cover him for work (off work) until I see him in the office next week. Mary Dale MA 07/27/2024 8:56 AM Addendum I called and left a message for the patient to contact the office. Letter for off work created and sent to [facility]. This will only cover him until scheduled appointment next week. Patient has been scheduled for a follow up in the office on 08/03/2024 at 2:30 pm. Brii James MA 07/27/2024 9:14 AM Signed Patient's returned call. She is aware of his appointment next week and was in agreement to be seen. Allergies As of Date: 07/25/2024 (No Known Allergies) Date Reviewed: 05/26/2024 Reviewed by: Berta Knight, RT(R) - Fully Assessed Reason for Visit: Patient Update [1234] Prescriptions as of 08/03/2024 - predniSONE (DELTASONE) 10 mg tablet TAKE BY MOUTH ONE(1) TABLET THREE TIMES DAILY FOR 4 DAYS, THEN TAKE ONE(1) TABLET TWO(2) TIMES DAILY FOR 4 DAYS, THEN TAKE ONE(1) TABLET DAILY. - levothyroxine (SYNTHROID) 125 mcg tablet Take 1 tablet by mouth once daily. - atorvastatin (LIPITOR) 40 mg tablet Take 1 tablet by mouth daily at bedtime. For cholesterol. - folic acid 1 mg tablet Take 1 tablet by mouth once daily. - diclofenac (VOLTAREN ARTHRITIS PAIN) 1 % topical gel Apply 2 g to affected area four times daily. - iron fum,ps/folic acid/vitC/B3 (IRON FOLATE-F ORAL) Take by mouth. - blood sugar diagnostic (BLOOD GLUCOSE TEST) test strip Test blood sugar(s) 1 times daily. Dx: Type 2 DM - Uncontrolled E11 Insulin: No - Lancets Test blood sugar(s) 1 times daily. Dx: Type 2 DM - Uncontrolled 65 Insulin: No - metFORMIN ER (GLUCOPHAGE XR) 500 mg 24 hr tablet Take 2 tablets by mouth two times a day. - metoprolol succinate ER (TOPROL XL) 50 mg 24 hr tablet Take 1 tablet by mouth once daily. - PARoxetine (PAXIL) 40 mg tablet Take 1 tablet by mouth once daily. - isosorbide dinitrate (ISORDIL) 5 mg tablet Take 1 tablet by mouth two times a day. - Lancets lancets Test blood sugar(s) 1 times daily. Dx: Type 2 DM - Controlled E11.9 Insulin: No - glimepiride (AMARYL) 2 mg tablet Take 1 tablet by mouth daily with breakfast. - amLODIPine (NORVASC) 10 mg tablet Take 1 tablet by mouth once daily. - blood sugar diagnostic (BLOOD GLUCOSE TEST) test strip Test blood sugar(s) 1 times daily. Dx: Type 2 DM - Controlled E11. Insulin: No - clopidogrel (PLAVIX) 75 mg tablet Take 75 mg by mouth once daily. - aspirin, enteric coated (ASPIRIN, ENTERIC COATED) 81 mg EC tablet Take 81 mg by mouth once daily. - nitroglycerin sublingual (NITROQUICK) 0.4 mg SL tablet Nitroglycerin Active 0.4 MG SL Q5M October 24, 2022 12:00am - nystatin-triamcinolone (MYCOLOG) ointment Apply sparingly to groin and penile rash twice daily for irritation/infection up to 2 weeks and then take 1 week off. - COMPOUNDED PRESCRIPTION Initiate BiPAP @ 22/16 cm of water with hu (more content not included)... Normal [facility] Carie 06-24-2024 ANGELINE Telephone ([place]) NICK LOPES ([id number]) 1970 M [facility] Date Time Provider Department 06/24/24 TORST[address]ILES During your visit today, we recorded the following information about you: Mary Dale MA 06/24/2024 9:07 AM Signed Type of form: FMLA Form received via fax When form is completed, Fax form to [facility] at [phone] Form has been forwarded to Dr. Aviles for signature. HOWIE Mendoza Amy M, MA 06/24/2024 9:07 AM Signed I called and left a message for the patient to contact the office. Received [facility] paperwork for him. Need to know..... Where is the patient doing his PT so we can get reports. 2. What was the first day not worked? Gwendolyn Santiago MA 06/24/2024 11:08 AM Signed Patients returned phone call from Mary. PT is [facility] in [place]. Off work date is 05/13/24. HOWIE Leonardo Amy M, MA 06/24/2024 1:15 PM Signed Forms completed and returned to [facility]. Confirmation received. Copy sent for scanning. Called [facility] to request records for past visits. Allergies As of Date: 06/24/2024 (No Known Allergies) Date Reviewed: 05/26/2024 Reviewed by: Berta Knight, RT(R) - Fully Assessed Reason for Visit: [facility] Paperwork [[id number]] Prescriptions as of 06/24/2024 - atorvastatin (LIPITOR) 40 mg tablet Take 1 tablet by mouth daily at bedtime. For cholesterol. - folic acid 1 mg tablet Take 1 tablet by mouth once daily. - diclofenac (VOLTAREN ARTHRITIS PAIN) 1 % topical gel Apply 2 g to affected area four times daily. - iron fum,ps/folic acid/vitC/B3 (IRON FOLATE-F ORAL) Take by mouth. - blood sugar diagnostic (BLOOD GLUCOSE TEST) test strip Test blood sugar(s) 1 times daily. Dx: Type 2 DM - Uncontrolled E11.65 Insulin: No - Lancets Test blood sugar(s) 1 times daily. Dx: Type 2 DM - Uncontrolled E11.65 Insulin: No - metFORMIN ER (GLUCOPHAGE XR) 500 mg 24 hr tablet Take 2 tablets by mouth two times a day. - metoprolol succinate ER (TOPROL XL) 50 mg 24 hr tablet Take 1 tablet by mouth once daily. - PARoxetine (PAXIL) 40 mg tablet Take 1 tablet by mouth once daily. - isosorbide dinitrate (ISORDIL) 5 mg tablet Take 1 tablet by mouth two times a day. - Lancets lancets Test blood sugar(s) 1 times daily. Dx: Type 2 DM - Controlled E11.9 Insulin: No - glimepiride (AMARYL) 2 mg tablet Take 1 tablet by mouth daily with breakfast. - amLODIPine (NORVASC) 10 mg tablet Take 1 tablet by mouth once daily. - levothyroxine (SYNTHROID) 125 mcg tablet Take 1 tablet by mouth once daily. - blood sugar diagnostic (BLOOD GLUCOSE TEST) test strip Test blood sugar(s) 1 times daily. Dx: Type 2 DM - Controlled E11.9 Insulin: No - clopidogrel (PLAVIX) 75 mg tablet Take 75 mg by mouth once daily. - aspirin, enteric coated (ASPIRIN, ENTERIC COATED) 81 mg EC tablet Take 81 mg by mouth once daily. - nitroglycerin sublingual (NITROQUICK) 0.4 mg SL tablet Nitroglycerin Active 0.4 MG SL Q5M October 24, 2022 12:00am - nystatin-triamcinolone (MYCOLOG) ointment Apply sparingly to groin and penile rash twice daily for irritation/infection up to 2 weeks and then take 1 week off. - COMPOUNDED PRESCRIPTION Initiate BiPAP @ 22/16 cm of water with humidification mask (per patient preference) optional chin strap (if indicated) and lifetime supplies DX: JOSIAH 327.23 Problem List As Of Date 06/24/2024 Noted Resolved Hyperlipidemia [E78.5] 09/14/2006 Family history of heart disease [Z82.49] Overweight [E66.3] 09/25/2023 Tobacco Use Disord-Unsp [[id number]] SHOULDER REGION DIS NEC [M25.819] 01/27/2007 01/02/2009 JOINT PAIN-PELVIS [M25.559] 06/27/2008 01/02/2009 SPRAIN LUMBAR REGION [S33.5XXA] 06/27/2008 01/02/2009 JOINT PAIN-UP/ARM [M25.529] 06/27/2008 06/27/2008 JOINT PAIN-SHLDER [M25.519] 06/27/2008 01/02/2009 Routine General Medical Examination at [facility]*01/02/2009 12/14/2013 Class: Chronic Thoracic or Lumbosacral Neuritis or Radiculitis*02/23/2009 12/14/2013 Hypothyroidism [E03.9] 10/09/2009 Essential hypertension, benign [I10] 02/06/2010 Leukocytosis [D72.829] 09/19/2011 03/28/2024 Sprain of lumbar region [S33.5XXA] 10/18/2012 12/14/2013 Backache, unspecified [M54.9] 11/11/2012 12/14/2013 Cervicalgia [M54.2] 04/20/2015 Lumbago [M54.50] 04/20/2015 03/28/2024 Concussion without loss of consciousness [S06.0*05/08/2015 04/23/2018 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*05/08/2015 Urinary incontinence [R32] 06/13/2015 Frequency [MNN0771] 06/13/2015 04/23/2018 Urgency of urination [R39.15] 06/13/2015 04/23/2018 Nocturia [R35.1] 06/13/2015 03/28/2024 Central sleep apnea [G47.31] 04/02/2018 Diabetes mellitus type 2, controlled, without c*03/25/2021 Obesity, Class III, BMI 40-49.9 (morbid obesity*06/17/2022 Situational stress [F43.9] 06/17/2022 THEO (genera (more content not included)... Normal [facility] CNCOon 06-16-2024 CNCO Letter Text Normal [facility] CNPNon 06-16-2024 CNPN Telephone (DELIVNWS) MARIANNENICK Light ([id number]) 1970 [address] [facility] Date Time Provider Department 06/16/24 T[address]ES During your visit today, we recorded the following information about you: Shayna Romero LPN 06/16/2024 1:09 PM Signed Liliana called. Verified name and date of . Patient is doing physical therapy. Physical therapy does not recommend patient to return to work until it is completed. It is projected to finish July 15, 2024. His currently only off of work through June 22, 2024 and needs extension written. Okay to send extension via [employer]. AJAY Lynn Amy M, MA 06/16/2024 4:05 PM Signed Letter completed and sent to patient in [employer] as requested. Allergies As of Date: 06/16/2024 (No Known Allergies) Date Reviewed: 05/26/2024 Reviewed by: Berta Knight, RT(R) - Fully Assessed Reason for Visit: Work Excuse [Other] Prescriptions as of 06/16/2024 - atorvastatin (LIPITOR) 40 mg tablet Take 1 tablet by mouth daily at bedtime. For cholesterol. - folic acid 1 mg tablet Take 1 tablet by mouth once daily. - diclofenac (VOLTAREN ARTHRITIS PAIN) 1 % topical gel Apply 2 g to affected area four times daily. - iron fum,ps/folic acid/vitC/B3 (IRON FOLATE-F ORAL) Take by mouth. - blood sugar diagnostic (BLOOD GLUCOSE TEST) test strip Test blood sugar(s) 1 times daily. Dx: Type 2 DM - Uncontrolled E11.65 Insulin: No - Lancets Test blood sugar(s) 1 times daily. Dx: Type 2 DM - Uncontrolled E11.65 Insulin: No - metFORMIN ER (GLUCOPHAGE XR) 500 mg 24 hr tablet Take 2 tablets by mouth two times a day. - metoprolol succinate ER (TOPROL XL) 50 mg 24 hr tablet Take 1 tablet by mouth once daily. - PARoxetine (PAXIL) 40 mg tablet Take 1 tablet by mouth once daily. - isosorbide dinitrate (ISORDIL) 5 mg tablet Take 1 tablet by mouth two times a day. - Lancets lancets Test blood sugar(s) 1 times daily. Dx: Type 2 DM - Controlled E11.9 Insulin: No - glimepiride (AMARYL) 2 mg tablet Take 1 tablet by mouth daily with breakfast. - amLODIPine (NORVASC) 10 mg tablet Take 1 tablet by mouth once daily. - levothyroxine (SYNTHROID) 125 mcg tablet Take 1 tablet by mouth once daily. - blood sugar diagnostic (BLOOD GLUCOSE TEST) test strip Test blood sugar(s) 1 times daily. Dx: Type 2 DM - Controlled E11.9 Insulin: No - clopidogrel (PLAVIX) 75 mg tablet Take 75 mg by mouth once daily. - aspirin, enteric coated (ASPIRIN, ENTERIC COATED) 81 mg EC tablet Take 81 mg by mouth once daily. - nitroglycerin sublingual (NITROQUICK) 0.4 mg SL tablet Nitroglycerin Active 0.4 MG SL Q5M October 24, 2022 12:00am - nystatin-triamcinolone (MYCOLOG) ointment Apply sparingly to groin and penile rash twice daily for irritation/infection up to 2 weeks and then take 1 week off. - COMPOUNDED PRESCRIPTION Initiate BiPAP @ 22/16 cm of water with humidification mask (per patient preference) optional chin strap (if indicated) and lifetime supplies DX: JOSIAH 327.23 Problem List As Of Date 06/16/2024 Noted Resolved Hyperlipidemia [E78.5] 09/14/2006 Family history of heart disease [Z82.49] Overweight [E66.3] 09/25/2023 Tobacco Use Disord-Unsp [[id number]] SHOULDER REGION DIS NEC [M25.819] 01/27/2007 01/02/2009 JOINT PAIN-PELVIS [M25.559] 06/27/2008 01/02/2009 SPRAIN LUMBAR REGION [S33.5XXA] 06/27/2008 01/02/2009 JOINT PAIN-UP/ARM [M25.529] 06/27/2008 06/27/2008 JOINT PAIN-SHLDER [M25.519] 06/27/2008 01/02/2009 Routine General Medical Examination at [facility]*01/02/2009 12/14/2013 Class: Chronic Thoracic or Lumbosacral Neuritis or Radiculitis*02/23/2009 12/14/2013 Hypothyroidism [E03.9] 10/09/2009 Essential hypertension, benign [I10] 02/06/2010 Leukocytosis [D72.829] 09/19/2011 03/28/2024 Sprain of lumbar region [S33.5XXA] 10/18/2012 12/14/2013 Backache, unspecified [M54.9] 11/11/2012 12/14/2013 Cervicalgia [M54.2] 04/20/2015 Lumbago [M54.50] 04/20/2015 03/28/2024 Concussion without loss of consciousness [S06.0*05/08/2015 04/23/2018 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*05/08/2015 Urinary incontinence [R32] 06/13/2015 Frequency [IVI7947] 06/13/2015 04/23/2018 Urgency of urination [R39.15] 06/13/2015 04/23/2018 Nocturia [R35.1] 06/13/2015 03/28/2024 Central sleep apnea [G47.31] 04/02/2018 Diabetes mellitus type 2, controlled, without c*03/25/2021 Obesity, Class III, BMI 40-49.9 (morbid obesity*06/17/2022 Situational stress [F43.9] 06/17/2022 THEO (generalized anxiety disorder) [F41.1] 06/17/2022 JOSIAH (obstructive sleep apnea) [G47.33] 06/17/2022 DDD (degenerative disc disease), lumbar [M51.36*06/28/2022 Spinal stenosis of lumbar region without neurog*06/28/2022 Cervical stenosis of spine [M48.02] 06/28/2022 Coronary artery disease involving [place]*01/24/2023 S/P PTCA (percutaneous transluminal coronary an*01/24/2023 Status p (more content not included)... Normal [facility] CNCOon 05-31-2024 CNCO Letter Text Normal [facility] CNPNon 05-30-2024 CNPN Telephone ([facility]) NICK LOPES ([id number]) 1970 [place] Date Time Provider Department 05/30/24 [address] During your visit today, we recorded the following information about you: Larissa Magana 05/30/2024 4:58 PM Signed Patients called requesting a work note To return to work or to be off longer with PT because he's still in pain Please advise Sienna Pina LPN 05/31/2024 10:38 AM Signed Patients called in requesting information regarding what needs step by be and if he can have note to either write him off work longer and a note to send him back to work. Please advise. AJAY Ramos Linda, MA 06/01/2024 9:07 AM Signed Letter written in My chart encounter. Allergies As of Date: 05/30/2024 (No Known Allergies) Date Reviewed: 05/26/2024 Reviewed by: Berta Knight, RT(R) - Fully Assessed Reason for Visit: Patient Question [8984] Cmt: To return to work or to be off longer with PT Prescriptions as of 06/01/2024 - atorvastatin (LIPITOR) 40 mg tablet Take 1 tablet by mouth daily at bedtime. For cholesterol. - folic acid 1 mg tablet Take 1 tablet by mouth once daily. - diclofenac (VOLTAREN ARTHRITIS PAIN) 1 % topical gel Apply 2 g to affected area four times daily. - iron fum,ps/folic acid/vitC/B3 (IRON FOLATE-F ORAL) Take by mouth. - blood sugar diagnostic (BLOOD GLUCOSE TEST) test strip Test blood sugar(s) 1 times daily. Dx: Type 2 DM - Uncontrolled E11.65 Insulin: No - Lancets Test blood sugar(s) 1 times daily. Dx: Type 2 DM - Uncontrolled E11.65 Insulin: No - metFORMIN ER (GLUCOPHAGE XR) 500 mg 24 hr tablet Take 2 tablets by mouth two times a day. - metoprolol succinate ER (TOPROL XL) 50 mg 24 hr tablet Take 1 tablet by mouth once daily. - PARoxetine (PAXIL) 40 mg tablet Take 1 tablet by mouth once daily. - isosorbide dinitrate (ISORDIL) 5 mg tablet Take 1 tablet by mouth two times a day. - Lancets lancets Test blood sugar(s) 1 times daily. Dx: Type 2 DM - Controlled E11.9 Insulin: No - glimepiride (AMARYL) 2 mg tablet Take 1 tablet by mouth daily with breakfast. - amLODIPine (NORVASC) 10 mg tablet Take 1 tablet by mouth once daily. - levothyroxine (SYNTHROID) 125 mcg tablet Take 1 tablet by mouth once daily. - blood sugar diagnostic (BLOOD GLUCOSE TEST) test strip Test blood sugar(s) 1 times daily. Dx: Type 2 DM - Controlled E11.9 Insulin: No - clopidogrel (PLAVIX) 75 mg tablet Take 75 mg by mouth once daily. - aspirin, enteric coated (ASPIRIN, ENTERIC COATED) 81 mg EC tablet Take 81 mg by mouth once daily. - nitroglycerin sublingual (NITROQUICK) 0.4 mg SL tablet Nitroglycerin Active 0.4 MG SL Q5M October 24, 2022 12:00am - nystatin-triamcinolone (MYCOLOG) ointment Apply sparingly to groin and penile rash twice daily for irritation/infection up to 2 weeks and then take 1 week off. - COMPOUNDED PRESCRIPTION Initiate BiPAP @ 22/16 cm of water with humidification mask (per patient preference) optional chin strap (if indicated) and lifetime supplies DX: JOSIAH 327.23 Problem List As Of Date 05/30/2024 Noted Resolved Hyperlipidemia [E78.5] 09/14/2006 Family history of heart disease [Z82.49] Overweight [E66.3] 09/25/2023 Tobacco Use Disord-Unsp [NCH2443] SHOULDER REGION DIS NEC [M25.819] 01/27/2007 01/02/2009 JOINT PAIN-PELVIS [M25.559] 06/27/2008 01/02/2009 SPRAIN LUMBAR REGION [S33.5XXA] 06/27/2008 01/02/2009 JOINT PAIN-UP/ARM [M25.529] 06/27/2008 06/27/2008 JOINT PAIN-SHLDER [M25.519] 06/27/2008 01/02/2009 Routine General Medical Examination at [facility]*01/02/2009 12/14/2013 Class: Chronic Thoracic or Lumbosacral Neuritis or Radiculitis*02/23/2009 12/14/2013 Hypothyroidism [E03.9] 10/09/2009 Essential hypertension, benign [I10] 02/06/2010 Leukocytosis [D72.829] 09/19/2011 03/28/2024 Sprain of lumbar region [S33.5XXA] 10/18/2012 12/14/2013 Backache, unspecified [M54.9] 11/11/2012 12/14/2013 Cervicalgia [M54.2] 04/20/2015 Lumbago [M54.50] 04/20/2015 03/28/2024 Concussion without loss of consciousness [S06.0*05/08/2015 04/23/2018 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*05/08/2015 Urinary incontinence [R32] 06/13/2015 Frequency [GLY7224] 06/13/2015 04/23/2018 Urgency of urination [R39.15] 06/13/2015 04/23/2018 Nocturia [R35.1] 06/13/2015 03/28/2024 Central sleep apnea [G47.31] 04/02/2018 Diabetes mellitus type 2, controlled, without c*03/25/2021 Obesity, Class III, BMI 40-49.9 (morbid obesity*06/17/2022 Situational stress [F43.9] 06/17/2022 THEO (generalized anxiety disorder) [F41.1] 06/17/2022 JOSIAH (obstructive sleep apnea) [G47.33] 06/17/2022 DDD (degenerative disc disease), lumbar [M51.36]06/28/2022 Spinal stenosis of lumbar region without neurog*06/28/2022 Cervical stenosis of spine [M48.02] 06/28/2022 Coronary artery disease involving [place] fagan*01/24/2023 S/P PT (more content not included)... Normal [facility] Carie 05-29-2024 ANGELINE Telephone (UCWSTR) NICK LOPES ([id number]) 1970 M [facility] Date Time Provider Department 05/29/24 TORSTEN AVILES [facility] During your visit today, we recorded the following information about you: Yojana Gonsales MA 05/29/2024 3:35 PM Signed notified pt. Yojana Gonsales MA Allergies As of Date: 05/29/2024 (No Known Allergies) Date Reviewed: 05/26/2024 Reviewed by: Berta Knight, RT(R) - Fully Assessed Reason for Visit: Results [95] Prescriptions as of 05/29/2024 - atorvastatin (LIPITOR) 40 mg tablet Take 1 tablet by mouth daily at bedtime. For cholesterol. - folic acid 1 mg tablet Take 1 tablet by mouth once daily. - diclofenac (VOLTAREN ARTHRITIS PAIN) 1 % topical gel Apply 2 g to affected area four times daily. - iron fum,ps/folic acid/vitC/B3 (IRON FOLATE-F ORAL) Take by mouth. - blood sugar diagnostic (BLOOD GLUCOSE TEST) test strip Test blood sugar(s) 1 times daily. Dx: Type 2 DM - Uncontrolled E11.65 Insulin: No - Lancets Test blood sugar(s) 1 times daily. Dx: Type 2 DM - Uncontrolled E11.65 Insulin: No - metFORMIN ER (GLUCOPHAGE XR) 500 mg 24 hr tablet Take 2 tablets by mouth two times a day. - metoprolol succinate ER (TOPROL XL) 50 mg 24 hr tablet Take 1 tablet by mouth once daily. - PARoxetine (PAXIL) 40 mg tablet Take 1 tablet by mouth once daily. - isosorbide dinitrate (ISORDIL) 5 mg tablet Take 1 tablet by mouth two times a day. - Lancets lancets Test blood sugar(s) 1 times daily. Dx: Type 2 DM - Controlled E11.9 Insulin: No - glimepiride (AMARYL) 2 mg tablet Take 1 tablet by mouth daily with breakfast. - amLODIPine (NORVASC) 10 mg tablet Take 1 tablet by mouth once daily. - levothyroxine (SYNTHROID) 125 mcg tablet Take 1 tablet by mouth once daily. - blood sugar diagnostic (BLOOD GLUCOSE TEST) test strip Test blood sugar(s) 1 times daily. Dx: Type 2 DM - Controlled E11.9 Insulin: No - clopidogrel (PLAVIX) 75 mg tablet Take 75 mg by mouth once daily. - aspirin, enteric coated (ASPIRIN, ENTERIC COATED) 81 mg EC tablet Take 81 mg by mouth once daily. - nitroglycerin sublingual (NITROQUICK) 0.4 mg SL tablet Nitroglycerin Active 0.4 MG SL Q5M October 24, 2022 12:00am - nystatin-triamcinolone (MYCOLOG) ointment Apply sparingly to groin and penile rash twice daily for irritation/infection up to 2 weeks and then take 1 week off. - COMPOUNDED PRESCRIPTION Initiate BiPAP @ 22/16 cm of water with humidification mask (per patient preference) optional chin strap (if indicated) and lifetime supplies DX: JOSIAH 327.23 Problem List As Of Date 05/29/2024 Noted Resolved Hyperlipidemia [E78.5] 09/14/2006 Family history of heart disease [Z82.49] Overweight [E66.3] 09/25/2023 Tobacco Use Disord-Unsp [ERI6393] SHOULDER REGION DIS NEC [M25.819] 01/27/2007 01/02/2009 JOINT PAIN-PELVIS [M25.559] 06/27/2008 01/02/2009 SPRAIN LUMBAR REGION [S33.5XXA] 06/27/2008 01/02/2009 JOINT PAIN-UP/ARM [M25.529] 06/27/2008 06/27/2008 JOINT PAIN-SHLDER [M25.519] 06/27/2008 01/02/2009 Routine General Medical Examination at a [facility]*01/02/2009 12/14/2013 Class: Chronic Thoracic or Lumbosacral Neuritis or Radiculitis*02/23/2009 12/14/2013 Hypothyroidism [E03.9] 10/09/2009 Essential hypertension, benign [I10] 02/06/2010 Leukocytosis [D72.829] 09/19/2011 03/28/2024 Sprain of lumbar region [S33.5XXA] 10/18/2012 12/14/2013 Backache, unspecified [M54.9] 11/11/2012 12/14/2013 Cervicalgia [M54.2] 04/20/2015 Lumbago [M54.50] 04/20/2015 03/28/2024 Concussion without loss of consciousness [S06.0*05/08/2015 04/23/2018 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*05/08/2015 Urinary incontinence [R32] 06/13/2015 Frequency [HWY2821] 06/13/2015 04/23/2018 Urgency of urination [R39.15] 06/13/2015 04/23/2018 Nocturia [R35.1] 06/13/2015 03/28/2024 Central sleep apnea [G47.31] 04/02/2018 Diabetes mellitus type 2, controlled, without c*03/25/2021 Obesity, Class III, BMI 40-49.9 (morbid obesity*06/17/2022 Situational stress [F43.9] 06/17/2022 THEO (generalized anxiety disorder) [F41.1] 06/17/2022 JOSIAH (obstructive sleep apnea) [G47.33] 06/17/2022 DDD (degenerative disc disease), lumbar [M51.36]06/28/2022 Spinal stenosis of lumbar region without neurog*06/28/2022 Cervical stenosis of spine [M48.02] 06/28/2022 Coronary artery disease involving [place]*01/24/2023 S/P PTCA (percutaneous transluminal coronary an*01/24/2023 Status post insertion of drug-eluting stent int*01/24/2023 Acute renal insufficiency [N28.9] 10/06/2023 03/28/2024 Diagnosed: 10/06/2023 Benign prostatic hyperplasia with urinary obstr*10/06/2023 Diagnosed: 10/06/2023 Calculus of ureter [N20.1] 10/06/2023 Diagnosed: 10/06/2023 Colitis [K52.9] 10/06/2023 03/28/2024 Diagnosed: 10/06/2023 Contusion of upper arm [S40.029A] 04/14/2022 03/28/2024 Diagnosed: 10/06/2023 Depressive disorder (more content not included)... Normal [facility] MR Knee - left WO contraston 05-26-2024 IMPRESSION: INTACT LIGAMENTS AND MENISCI OF THE KNEE. MODERATE OSTEOARTHRITIS OF THE MEDIAL COMPARTMENT. Professional Bass Fisher: MICHOACANO Transcribe Date/Time: May 26 2024 8:45A Dictated by : ELLIE HERNÁNDEZ MD This examination was interpreted and the report reviewed and electronically signed by: ELLIE HERNÁNDEZ MD on May 26 2024 8:48AM [facility] DIVISION OF RADIOLOGY * * *Final Report* * * DATE OF EXAM: May 26 2024 8:20AM [facility] 0212 - MRI KNEE WO IVCON LT / PROCEDURE REASON: multiple diagnoses * * * * Physician Interpretation * * * * EXAMINATION: MRI LEFT KNEE WITHOUT CONTRAST CLINICAL HISTORY: Chronic left knee pain TECHNIQUE: Routine non-contrast MRI of the knee MQ: MRK_2B COMPARISON: None RESULT: MENISCI: Medial Meniscus: Degenerative changes without a tear Lateral Meniscus: Intact. LIGAMENTS: ACL: Intact PCL: Intact MCL: Intact LCL Complex: Intact CARTILAGE: Medial Femoral Condyle: Moderate sized area(s) of high grade (greater than 50% thickness) partial thickness cartilage loss and or fissuring Medial Tibial Plateau: Moderate sized area(s) of predominantly low grade (less than 50% thickness) cartilage loss and or fissuring with smaller area(s) of high grade (greater than 50% thickness) cartilage loss and or fissuring Lateral Femoral Condyle: Normal Lateral Tibial Plateau: Small area(s) of low grade (less than 50% thickness) partial thickness cartilage loss and or fissuring Patella: Small area(s) of low grade (less than 50% thickness) partial thickness cartilage loss and or fissuring Trochlea: Small area(s) of high grade (greater than 50% thickness) partial thickness cartilage loss and or fissuring TENDONS: The distal quadriceps and patellar tendons are intact. The popliteus tendon is intact. BONES AND MARROW: No evidence of fracture or bone marrow replacing process. Minimal reactive bone marrow edema in the medial tibial plateau. MUSCLES: Muscle bulk and signal intensity are normal. JOINT FLUID AND SYNOVIUM: Moderate joint effusion. Mild synovitis. No Hernandez's cyst. OTHER: No other significant abnormality identified. Localizer images: Unremarkable. DIVISION OF RADIOLOGY Provider, [facility] - 05/26/2024 * * *Final Report* * * DATE OF EXAM: May 26 2024 8:20AM [facility] 0212 - MRI KNEE WO IVCON LT / PROCEDURE REASON: multiple diagnoses * * * * Physician Interpretation * * * * EXAMINATION: MRI LEFT KNEE WITHOUT CONTRAST CLINICAL HISTORY: Chronic left knee pain TECHNIQUE: Routine non-contrast MRI of the knee MQ: MRK_2B COMPARISON: None RESULT: MENISCI: Medial Meniscus: Degenerative changes without a tear Lateral Meniscus: Intact. LIGAMENTS: ACL: Intact PCL: Intact MCL: Intact LCL Complex: Intact CARTILAGE: Medial Femoral Condyle: Moderate sized area(s) of high grade (greater than 50% thickness) partial thickness cartilage loss and or fissuring Medial Tibial Plateau: Moderate sized area(s) of predominantly low grade (less than 50% thickness) cartilage loss and or fissuring with smaller area(s) of high grade (greater than 50% thickness) cartilage loss and or fissuring Lateral Femoral Condyle: Normal Lateral Tibial Plateau: Small area(s) of low grade (less than 50% thickness) partial thickness cartilage loss and or fissuring Patella: Small area(s) of low grade (less than 50% thickness) partial thickness cartilage loss and or fissuring Trochlea: Small area(s) of high grade (greater than 50% thickness) partial thickness cartilage loss and or fissuring TENDONS: The distal quadriceps and patellar tendons are intact. The popliteus tendon is intact. BONES AND MARROW: No evidence of fracture or bone marrow replacing process. Minimal reactive bone marrow edema in the medial tibial plateau. MUSCLES: Muscle bulk and signal intensity are normal. JOINT FLUID AND SYNOVIUM: Moderate joint effusion. Mild synovitis. No Hernandez's cyst. OTHER: No other significant abnormality identified. Localizer images: Unremarkable. IMPRESSION IMPRESSION: INTACT LIGAMENTS AND MENISCI OF THE KNEE. MODERATE OSTEOARTHRITIS OF THE MEDIAL COMPARTMENT. Professional Bass Fisher: [facility] Transcribe Date/Time: May 26 2024 8:45A Dictated by : ELLIE HERNÁNDEZ MD This examination was interpreted and the report reviewed and electronically signed by: ELLIE HERNÁNDEZ MD on May 26 2024 8:48AM EST [facility] Radiology Study observation (narrative) [facility] MR Knee - left WO contrastOr dered By: [facility] Provider on 05-26-2024 [facility] Large Joint Arthro/Inj: R huy hurtado bursaon 05-06-2024 Torsten Aviles V, DO 05/06/2024 2:38 PM Large Joint Arthro/Inj: R linda bursa 05/06/2024 2:37 PM Site: Bryson mckeon bursa Medications: 6 mg betamethasone acetate-betamethasone sodium phosphate 6 mg/mL Anesthetics: 4 mL lidocaine (PF) 10 mg/mL (1 %); 4 mL BUPivacaine (PF) 0.5 % (5 mg/mL) [facility] Emergency Department Summary on 05-02-2024 Emergency Department Summary [facility] Medical Records Department [address] [place] [address] Emergency Department Summary 05/02/24 MR#: [id number] Acct: [id number] Name: ROMEL LOPES Rep #: [id number] : 1970 53 From: Josafat Centeno DO PCP: Dr. Ginger Lugo MD Status:DEP ER Location: ED HPI History of Present Illness HPI Narrative: Patient presents with left knee pain that has been getting worse over the past week. Patient states he felt pain in his knee for the past 3 weeks. Patient states that over the past week it has gotten much worse. Patient states he had x-rays done at a different facility which did not show any acute fracture or dislocation. Patient describes his pain as aching and throbbing. Patient states it is worse with walking and weightbearing. Patient denies any paresthesias or weakness. Patient states his pain is worse over the posterior aspect of his left knee. Chief Complaint: Lower Extremity Injury Informant: patient Onset/Context/Timing Onset: Weeks (1) Context: Gradual Onset Timing: Continuous Quality of Pain: Aching and Throbbing Location: Left knee Worsened by: Walking and weightbearing Relieved by: Nothing Associated Symptoms Associated Symptoms: Negative for Parasthesia, Weakness or Loss of Funtion [facility] Medical History Infection due to ESBL-producing Escherichia coli Anxiety Depression Diabetes Kidney stones Former smoker BiPAP (biphasic positive airway pressure) dependence Sleep apnea Myocardial infarct Hypertension Atherosclerosis of coronary artery of [place] heart without angina pectoris Leukocytosis JOSIAH (obstructive sleep apnea) Type 2 diabetes mellitus Family history of heart disease Essential hypertension Nausea vomiting and diarrhea Colitis Elevated liver enzymes Sepsis Depression Hyperlipidemia Hypertension Home Medications ???Medication ???Instructions ???Recorded ???Last Taken ???Type amlodipine 10 mg tablet 10 mg PO QHS BLOOD PRESSURE 03/15/18 03/17/23 History levothyroxine 125 mcg tablet 125 mcg PO DAILY THYROID 02/08/19 10/07/23 History atorvastatin 40 mg tablet 40 mg PO QHS CHOLESTEROL 10/09/22 10/06/23 History metformin 500 mg tablet 1,000 mg PO BID BLOOD SUGARS 10/09/22 10/07/23 History paroxetine HCl 40 mg tablet 40 mg PO QHS DEPRESSION 10/09/22 10/06/23 History metoprolol succinate 50 mg 50 mg PO QHS BLOOD PRESSURE 10/13/22 10/06/23 History tablet,extended release 24 hr nitroglycerin 0.4 mg sublingual 0.4 mg sublingual Q5M PRN CHEST 10/24/22 Unknown Rx tablet PAIN #14 tabs aspirin 81 mg tablet,delayed 81 mg PO DAILY HEART HEALTH 10/07/23 10/06/23 History release glimepiride 2 mg tablet 2 mg PO DAILY blood sugar 10/07/23 10/07/23 History vancomycin 125 mg capsule 125 mg PO .QID #40 caps 10/09/23 Unknown Rx clopidogrel 75 mg tablet See Rx Instructions .Route 10/27/23 Unknown Rx .COMPLEX #90 tabs hydrocodone-acetaminoph en 5-325mg 1 tab PO Q6H PRN PRN Pain 3 days 05/02/24 Unknown Rx 5mg-325mg #10 TABLETS Allergy/AdvReac Type Severity Reaction Status Date / Time No Known Allergies Allergy Verified 05/02/24 21:47 Family History Father Myocardial infarction, Onset Age: 45 Mother Hypertension Mixed hyperlipidemia Grandmother CHF (congestive heart failure) Surgical History History of left heart catheterization (10/09/23) History of coronary artery stent placement ( 10/24/22) History of tonsillectomy Status post excision of lipoma Social History household members: spouse Smoking Status: Former smoker alcohol intake: current details: occasional substance use type: does not use caffeine: Yes Type: carbonated beverages Number of servings: 6 ROS ROS ED Constitutional Constitutional ED: Denies chills or fever(s) Eyes Eyes: Denies blurry vision or change in vision ENT ENT ED: Denies rhinorrhea or sore throat Cardiovascular Cardiovascular: Denies chest pain or palpitations Respiratory/Chest Respiratory/Chest: Denies cough or dyspnea Gastrointestinal Gastrointestinal: Denies nausea or vomiting Genitourinary Genitourinary ED: Denies dysuria or hematuria Musculoskeletal Musculoskeletal: Denies back pain or neck pain Integumentary Denies abscess or rash Neurologic Neurologic: Denies headache(s) or weakness Allergic/Immunologic Allergic/Immunologic ED: Denies mouth swelling or urticaria EXAM Physical Exam Const Vital Signs: 05/02/24 21:45 Temperature 98 F Temperature Source Oral Pulse Rate 82 Respiratory Rate 18 Blood Pressure 136/104 H Blood Pressure Mean 114 P (more content not included)... Normal [facility] Knee 4 or More Viewson 05-02 Knee 4 or More Views [facility] Imaging Services [address] [place], [place] [address] Knee 4 or More Views MR#: [id number] Acct: [id number] Name: ROMEL LOPES Rep #: [id number] : 1970 M 53 From: Ethan Payan MD PCP: Dr. Ginger Lugo MD Status: REG ER Study: Knee 4 or More Views Date of Exam: 05/02/24 Exam# [id number] Ordering [place]: [place] [id number] EXAM: XR LEFT KNEE COMPLETE, 4 OR MORE VIEWS CLINICAL INDICATION: Injury/Pain TECHNIQUE: Four or more views of the left knee. COMPARISON: No relevant prior studies available. FINDINGS: BONES/JOINTS: There is narrowing of the medial knee joint space. No acute fracture. No subluxation. Normal alignment. No sclerotic or destructive changes observed. SOFT TISSUES: Unremarkable. No soft tissue swelling or gas. No radiopaque foreign body. RAD/Knee 4 or More Views IMPRESSION: No acute osseous abnormalities. There are mild degenerative changes with narrowing of the medial knee joint. Electronically Signed: Ethan Payan MD at 23:04 EDT , CC: Dr. Josafat Centeno DO; Dr. Ginger Lugo MD Professional Bass Fisher: Signed Normal [facility] XR Toes - right 3 Viewson IMPRESSION: Findings as discussed in results portion of report Professional Bass Fisher: PSCTristen Transcribe Date/Time: Apr 14 2024 12:14P Dictated by : RAJENDRA CAMACHO DO This examination was interpreted and the report reviewed and electronically signed by: RAJENDRA CAMACHO DO on Apr 14 2024 12:17PM [facility] DIVISION OF RADIOLOGY * * *Final Report* * * DATE OF EXAM: Apr 14 2024 11:20AM [id number] - XR TOE 3V AP/LAT/OBL RT / PROCEDURE REASON: Open wound of toe, initial encounter * * * * Physician Interpretation * * * * EXAM(s): XR TOE 3V AP/LAT/OBL RT..... HISTORY: 53 years old Clinical information: Open wound of toe, initial encounter Right great toenail removed and patient had a subsequent fall. Right great toe pain. TECHNIQUE: Images: XR TOE 3V AP/LAT/OBL RT Comparison: 03/28/2024. RESULT: Findings: No fractures or dislocations are seen. The appearance on the last study limited secondary to artifact from overlying avulsed toenail DIVISION OF RADIOLOGY Provider, Brian martin Jeannette - 04/14/2024 * * *Final Report* * * DATE OF EXAM: Apr 14 2024 11:20AM [id number] - XR TOE 3V AP/LAT/OBL RT / PROCEDURE REASON: Open wound of toe, initial encounter * * * * Physician Interpretation * * * * EXAM(s): XR TOE 3V AP/LAT/OBL RT..... HISTORY: 53 years old Clinical information: Open wound of toe, initial encounter Right great toenail removed and patient had a subsequent fall. Right great toe pain. TECHNIQUE: Images: XR TOE 3V AP/LAT/OBL RT Comparison: 03/28/2024. RESULT: Findings: No fractures or dislocations are seen. The appearance on the last study limited secondary to artifact from overlying avulsed toenail IMPRESSION IMPRESSION: Findings as discussed in results portion of report Professional Bass Fisher: MICHOACANO Transcribe Date/Time: Apr 14 2024 12:14P Dictated by : RAJENDRA CAMACHO DO This examination was interpreted and the report reviewed and electronically signed by: RAJENDRA CAMACHO DO on Apr 14 2024 12:17PM EST [facility] Radiology Study observation (narrative) [facility] XR Toes - right 3 ViewsOrder ed By: Ccf Provider on 04-14-2024 [facility] Large Joint Arthro/Inj: L kn ee jointon 04-06-2024 Torsten Aviles V, DO 04/06/2024 2:18 PM Large Joint Arthro/Inj: L knee joint Informed Consent Consent Obtained: Verbal [place] Protocol SIGN IN TIME OUT 04/06/2024 2:17 PM The procedure site was prepped in the usual sterile fashion. Site: L knee joint Medications: 40 mg methylPREDNISolone acetate 40 mg/mL Anesthetics: 2 mL lidocaine (PF) 10 mg/mL (1 %); 2 mL BUPivacaine (PF) 0.5 % (5 mg/mL) Outcome: Tolerated well, no immediate complications Post-injection instructions were reviewed with the patient and the patient voiced understanding of these instructions. [facility] XR Toes - right 3 Viewson IMPRESSION: Fracture distal phalanx RIGHT great toe Professional Bass Fisher: MICHOACANO Transcribe Date/Time: Mar 31 2024 7:30A Dictated by : RAJENDRA CAMACHO DO This examination was interpreted and the report reviewed and electronically signed by: RAJENDRA CAMACHO DO on Mar 31 2024 7:32AM [facility] DIVISION OF RADIOLOGY * * *Final Report* * * DATE OF EXAM: Mar 28 2024 11:15AM [id number] - XR TOE 3V AP/LAT/OBL RT / PROCEDURE REASON: Ingrowing toenail with infection * * * * Physician Interpretation * * * * EXAM(s): XR TOE 3V AP/LAT/OBL RT..... HISTORY: 53 years old Clinical information: Ingrowing toenail with infection Right great toe nail removed in office today. TECHNIQUE: Images: XR TOE 3V AP/LAT/OBL RT Comparison: None. RESULT: Findings: There is an oblique fracture through the distal end of the distal phalanx of the great toe. Fracture fragments. In relatively good alignment DIVISION OF RADIOLOGY Provider, Brian Michael - 03/31/2024 * * *Final Report* * * DATE OF EXAM: Mar 28 2024 11:15AM [id number] - XR TOE 3V AP/LAT/OBL RT / PROCEDURE REASON: Ingrowing toenail with infection * * * * Physician Interpretation * * * * EXAM(s): XR TOE 3V AP/LAT/OBL RT..... HISTORY: 53 years old Clinical information: Ingrowing toenail with infection Right great toe nail removed in office today. TECHNIQUE: Images: XR TOE 3V AP/LAT/OBL RT Comparison: None. RESULT: Findings: There is an oblique fracture through the distal end of the distal phalanx of the great toe. Fracture fragments. In relatively good alignment IMPRESSION IMPRESSION: Fracture distal phalanx RIGHT great toe Professional Bass Fisher: MICHOACANO Transcribe Date/Time: Mar 31 2024 7:30A Dictated by : RAJENDRA CAMACHO DO This examination was interpreted and the report reviewed and electronically signed by: RAJENDRA CAMACHO DO on Mar 31 2024 7:32AM EST [facility] XR Toes - right 3 ViewsOrder ed By: Ccf Provider on 03-31-2024 [facility] US DVT LOWER LTon 03-29-2024 US DVT LOWER LT * * *Final Report* * * DATE OF EXAM: Mar 29 2024 4:15PM LDU 1006 - US DVT LOWER LT / PROCEDURE REASON: multiple diagnoses * * * * Physician Interpretation * * * * EXAMINATION: LEFT LOWER EXTREMITY DEEP VENOUS ULTRASOUND WITH DOPPLER IMAGING CLINICAL HISTORY: Edema. Pain TECHNIQUE: Grayscale with compression maneuvers, color Doppler and spectral Doppler imaging of the left proximal deep veins was performed. Grayscale with compression maneuvers of the peroneal and posterior tibial veins was performed. The left great and small saphenous veins were evaluated at their insertion to the deep system. The contralateral common femoral vein was imaged for comparison. Images were obtained and stored in a permanent archive. MQ: [email or web address]_1 COMPARISON: None RESULT: LEFT LOWER EXTREMITY PROXIMAL DEEP VEINS Distal External Iliac, Common Femoral and proximal Profunda Veins: Compression: Normal Doppler: Normal, spontaneous respirophasic flow. Normal response to augmentation. Femoral vein: Compression: Normal Doppler: Normal, spontaneous flow. Normal response to augmentation. Popliteal vein: Compression: Normal Doppler: Normal, spontaneous flow. Normal response to augmentation. CALF DEEP VEINS Peroneal veins: Not well assessed. Posterior tibial veins: Not well assessed. Gastrocnemius and Soleal veins: Not imaged. SUPERFICIAL VEINS Great saphenous: Patent and compressible at insertion into common femoral vein; not otherwise assessed. Small Saphenous: Patent and compressible in the proximal calf, not otherwise assessed. RIGHT LOWER EXTREMITY (FOR COMPARISON) Common Femoral Vein: Compression: Normal Doppler: Normal, spontaneous respirophasic flow. Normal response to augmentation. IMPRESSION: Negative study for proximal DVT in the left lower extremity. Nondiagnostic study for calf DVT in the left lower extremity. Negative study for superficial thrombophlebitis in the imaged segments of the left lower extremity. Professional Bass Fisher: MICHOACANO Transcribe Date/Time: Mar 29 2024 6:23P Dictated by : JEFFREY NAJERA MD This examination was interpreted and the report reviewed and electronically signed by: JEFFREY NAJERA MD on Mar 29 2024 6:25PM EST [id number] Normal [facility] US Lower extremity vein - le fton 03-29-2024 IMPRESSION: Negative study for proximal DVT in the left lower extremity. Nondiagnostic study for calf DVT in the left lower extremity. Negative study for superficial thrombophlebitis in the imaged segments of the left lower extremity. Professional Bass Fisher: [facility] Transcribe Date/Time: Mar 29 2024 6:23P Dictated by : JEFFREY NAJERA MD This examination was interpreted and the report reviewed and electronically signed by: JEFFREY NAJERA MD on Mar 29 2024 6:25PM EST [email or web address] * * *Final Report* * * DATE OF EXAM: Mar 29 2024 4:15PM LDU 1006 - US DVT LOWER LT / PROCEDURE REASON: multiple diagnoses * * * * Physician Interpretation * * * * EXAMINATION: LEFT LOWER EXTREMITY DEEP VENOUS ULTRASOUND WITH DOPPLER IMAGING CLINICAL HISTORY: Edema. Pain TECHNIQUE: Grayscale with compression maneuvers, color Doppler and spectral Doppler imaging of the left proximal deep veins was performed. Grayscale with compression maneuvers of the peroneal and posterior tibial veins was performed. The left great and small saphenous veins were evaluated at their insertion to the deep system. The contralateral common femoral vein was imaged for comparison. Images were obtained and stored in a permanent archive. MQ: [email or web address]_1 COMPARISON: None RESULT: LEFT LOWER EXTREMITY PROXIMAL DEEP VEINS Distal External Iliac, Common Femoral and proximal Profunda Veins: Compression: Normal Doppler: Normal, spontaneous respirophasic flow. Normal response to augmentation. Femoral vein: Compression: Normal Doppler: Normal, spontaneous flow. Normal response to augmentation. Popliteal vein: Compression: Normal Doppler: Normal, spontaneous flow. Normal response to augmentation. CALF DEEP VEINS Peroneal veins: Not well assessed. Posterior tibial veins: Not well assessed. Gastrocnemius and Soleal veins: Not imaged. SUPERFICIAL VEINS Great saphenous: Patent and compressible at insertion into common femoral vein; not otherwise assessed. Small Saphenous: Patent and compressible in the proximal calf, not otherwise assessed. RIGHT LOWER EXTREMITY (FOR COMPARISON) Common Femoral Vein: Compression: Normal Doppler: Normal, spontaneous respirophasic flow. Normal response to augmentation. [facility] * * *Final Report* * * DATE OF EXAM: Mar 29 2024 4:15PM LDU 1006 - US DVT LOWER LT / PROCEDURE REASON: multiple diagnoses * * * * Physician Interpretation * * * * EXAMINATION: LEFT LOWER EXTREMITY DEEP VENOUS ULTRASOUND WITH DOPPLER IMAGING CLINICAL HISTORY: Edema. Pain TECHNIQUE: Grayscale with compression maneuvers, color Doppler and spectral Doppler imaging of the left proximal deep veins was performed. Grayscale with compression maneuvers of the peroneal and posterior tibial veins was performed. The left great and small saphenous veins were evaluated at their insertion to the deep system. The contralateral common femoral vein was imaged for comparison. Images were obtained and stored in a permanent archive. MQ: [email or web address]_1 COMPARISON: None RESULT: LEFT LOWER EXTREMITY PROXIMAL DEEP VEINS Distal External Iliac, Common Femoral and proximal Profunda Veins: Compression: Normal Doppler: Normal, spontaneous respirophasic flow. Normal response to augmentation. Femoral vein: Compression: Normal Doppler: Normal, spontaneous flow. Normal response to augmentation. Popliteal vein: Compression: Normal Doppler: Normal, spontaneous flow. Normal response to augmentation. CALF DEEP VEINS Peroneal veins: Not well assessed. Posterior tibial veins: Not well assessed. Gastrocnemius and Soleal veins: Not imaged. SUPERFICIAL VEINS Great saphenous: Patent and compressible at insertion into common femoral vein; not otherwise assessed. Small Saphenous: Patent and compressible in the proximal calf, not otherwise assessed. RIGHT LOWER EXTREMITY (FOR COMPARISON) Common Femoral Vein: Compression: Normal Doppler: Normal, spontaneous respirophasic flow. Normal response to augmentation. IMPRESSION IMPRESSION: Negative study for proximal DVT in the left lower extremity. Nondiagnostic study for calf DVT in the left lower extremity. Negative study for superficial thrombophlebitis in the imaged segments of the left lower extremity. Professional Bass Fisher: MICHOACANO Transcribe Date/Time: Mar 29 2024 6:23P Dictated by : JEFFREY NAJERA MD This examination was interpreted and the report reviewed and electronically signed by: JEFFREY NAJERA MD on Mar 29 2024 6:25PM EST [facility] Radiology Study observation (narrative) [facility] US Lower extremity vein - le ftOrdered By: Ccf Provider on 03-29-2024 [facility] No Panel Informationon 03-28 IMPRESSION: No acute osseous abnormality. Professional Bass Fisher: MICHOACANO Transcribe Date/Time: Mar 28 2024 7:49P Dictated by : VERONICA HIDALGO DO This examination was interpreted and the report reviewed and electronically signed by: VERONICA HIDALGO DO on Mar 28 2024 7:53PM [facility] DIVISION OF RADIOLOGY Radiology Study observation (narrative) [facility] No Panel InformationOrdered By: Ccf Provider on 03-28-2024 [facility] XR Knee - left 4 Viewson * * *Final Report* * * DATE OF EXAM: Mar 28 2024 7:24PM WOX [id number] - XR KNEE 4V AP/PA BOTH+LAT/SEVERO LT / PROCEDURE REASON: multiple diagnoses * * * * Physician Interpretation * * * * EXAMINATION: XR KNEE 4V AP/PA BOTH+LAT/SEVERO LT, XR TIBIA FIBULA 2V AP/LAT LT PATIENT/TECHNOLOGIST PROVIDED HISTORY: Fell on Thursday, pain anterior left knee and down anterior pizarro of left lower leg. CLINICAL INFORMATION: 53 years old Male with Acute pain of left knee. Pain of left lower extremity TECHNIQUE: XR KNEE 4V AP/PA BOTH+LAT/SEVERO LT, XR TIBIA FIBULA 2V AP/LAT LT Laterality: LEFT Number of different views (projections): 4 views of the LEFT knee and 2 views of the LEFT tibia and fibula. COMPARISON: None RESULT: Left knee: No fracture. No joint effusion. Minimal medial compartment joint space narrowing. Left tibia and fibula: No fracture. DIVISION OF RADIOLOGY Provider, [facility] - 03/28/2024 * * *Final Report* * * DATE OF EXAM: Mar 28 2024 7:24PM WOX 5202 - XR KNEE 4V AP/PA BOTH+LAT/SEVERO LT / PROCEDURE REASON: multiple diagnoses * * * * Physician Interpretation * * * * EXAMINATION: XR KNEE 4V AP/PA BOTH+LAT/SEVERO LT, XR TIBIA FIBULA 2V AP/LAT LT PATIENT/TECHNOLOGIST PROVIDED HISTORY: Fell on Thursday, pain anterior left knee and down anterior pizarro of left lower leg. CLINICAL INFORMATION: 53 years old Male with Acute pain of left knee. Pain of left lower extremity TECHNIQUE: XR KNEE 4V AP/PA BOTH+LAT/SEVERO LT, XR TIBIA FIBULA 2V AP/LAT LT Laterality: LEFT Number of different views (projections): 4 views of the LEFT knee and 2 views of the LEFT tibia and fibula. COMPARISON: None RESULT: Left knee: No fracture. No joint effusion. Minimal medial compartment joint space narrowing. Left tibia and fibula: No fracture. IMPRESSION IMPRESSION: No acute osseous abnormality. Professional Bass Fisher: PSCB Transcribe Date/Time: Mar 28 2024 7:49P Dictated by : VERONICA HIDALGO DO This examination was interpreted and the report reviewed and electronically signed by: VERONICA HIDALGO DO on Mar 28 2024 7:53PM [facility] XR Tibia and Fibula - left A P and Lateralon 03-28-2024 * * *Final Report* * * DATE OF EXAM: Mar 28 2024 7:24PM WOX 5265 - XR TIBIA FIBULA 2V AP/LAT LT / PROCEDURE REASON: Pain of left lower extremity * * * * Physician Interpretation * * * * EXAMINATION: XR KNEE 4V AP/PA BOTH+LAT/SEVERO LT, XR TIBIA FIBULA 2V AP/LAT LT PATIENT/TECHNOLOGIST PROVIDED HISTORY: Fell on Thursday, pain anterior left knee and down anterior pizarro of left lower leg. CLINICAL INFORMATION: 53 years old Male with Acute pain of left knee. Pain of left lower extremity TECHNIQUE: XR KNEE 4V AP/PA BOTH+LAT/SEVERO LT, XR TIBIA FIBULA 2V AP/LAT LT Laterality: LEFT Number of different views (projections): 4 views of the LEFT knee and 2 views of the LEFT tibia and fibula. COMPARISON: None RESULT: Left knee: No fracture. No joint effusion. Minimal medial compartment joint space narrowing. Left tibia and fibula: No fracture. DIVISION OF RADIOLOGY Provider, [facility] - 03/28/2024 * * *Final Report* * * DATE OF EXAM: Mar 28 2024 7:24PM WOX 5265 - XR TIBIA FIBULA 2V AP/LAT LT / PROCEDURE REASON: Pain of left lower extremity * * * * Physician Interpretation * * * * EXAMINATION: XR KNEE 4V AP/PA BOTH+LAT/SEVERO LT, XR TIBIA FIBULA 2V AP/LAT LT PATIENT/TECHNOLOGIST PROVIDED HISTORY: Fell on Thursday, pain anterior left knee and down anterior pizarro of left lower leg. CLINICAL INFORMATION: 53 years old Male with Acute pain of left knee. Pain of left lower extremity TECHNIQUE: XR KNEE 4V AP/PA BOTH+LAT/SEVERO LT, XR TIBIA FIBULA 2V AP/LAT LT Laterality: LEFT Number of different views (projections): 4 views of the LEFT knee and 2 views of the LEFT tibia and fibula. COMPARISON: None RESULT: Left knee: No fracture. No joint effusion. Minimal medial compartment joint space narrowing. Left tibia and fibula: No fracture. IMPRESSION IMPRESSION: No acute osseous abnormality. Professional Bass Fisher: PSCB Transcribe Date/Time: Mar 28 2024 7:49P Dictated by : VERONICA HIDALGO DO This examination was interpreted and the report reviewed and electronically signed by: VERONICA HIDALGO DO on Mar 28 2024 7:53PM [facility] XR Toes - right 3 Viewson Radiology Study observation (narrative) [facility] Absolute lymphocyte countOrd ered By: Gerardo Watkins on 10-09-2023 Lymphocytes Auto (Unsp spec) [#/Vol] 1.96 10*3/uL 0.83-4.[address] [facility] Automated lymphocyte count a s percentage of total leukocytesOrdered By: Gerardo Watkins on 10-09-2023 Lymphocytes/100 WBC Auto (Unsp spec) 27.9 % 19-[address] [facility] Basophil percentageOrdered B y: Gerardo Watkins on 10-09-2023 Basophils/100 WBC (Bld) 0.6 % 0-1 [facility] Chloride [Moles/Vol] 108 mmol/L 98-107 [facility] Eosinophils/100 WBC (Bld) 2.6 % 0-[address] [facility] Glucose [Mass/Vol] 182 mg/dL 74-106 [facility] Comment on above: Fasting Glucose resu lt greater than or equal to 126 mg/dL suggests DIABETES MELLITUS per A.D.A. criteria. Hemoglobin (Bld) [Mass/Vol] 12.8 g/dL 13.0-16.[address] [facility] Monocytes/100 WBC (Bld) 6.1 % 0-10 [facility] Neutrophils (Bld) [#/Vol] 4.4 10*3/uL 2.0-7.[address] [facility] Neutrophils/100 WBC (Bld) 62.1 % 47-[address] [facility] Potassium [Moles/Vol] 3.8 mmol/L 3.5-5.1 [facility] Sodium [Moles/Vol] 141 mmol/L 136-145 [facility] WBC (Bld) [#/Vol] 7.0 10*3/uL 4.4-11.0 [facility] Determination of erythrocyte mean corpuscular volume (MCV)Ordered By: Gerardo Watkins on 10-09-2023 MCV (RBC) [Entitic vol] 85.7 fL 80-94 [facility] Erythrocyte distribution wid th ratioOrdered By: Gerardo Watkins on 10-09-2023 Erythrocyte distribution width (RBC) [Ratio] 14.8 % 11.6-14.[address] [facility] Erythrocyte distribution wid th standard deviationOrdered By: Gerardo Watkins on 10-09-2023 Erythrocyte distribution width (RBC) [Entitic vol] 45.8 fL 35.1-43.[address] [facility] Hematocrit Auto (Bld) [Volum e fraction]Ordered By: Gerardo Watkins on 10-09-2023 Hematocrit (Bld) [Volume fraction] 40.7 % 40-[address] [facility] Immature granulocytes/100 WB C Auto (Bld)Ordered By: Gerardo Watkins on 10-09-2023 Immature granulocytes/100 WBC (Bld) 0.700 % 0.0-0.[address] [facility] Comment on above: IG% - Immature Granu locytes (promyelocytes, myelocytes and metamyelocytes) > 1% indicates that a LEFT SHIFT is Present. Laboratory - Chemistry and C hemistry - challengeOrdered By: Gerardo Watkins on 10-09-2023 CO2 [Moles/Vol] 30.0 mmol/L 21.0-32.[address] [facility] Urea nitrogen/Creatinine [Mass ratio] 13.3 mg/mg 10-[address] [facility] Laboratory - Hematology and Cell countsOrdered By: Gerardo Watkins on 10-09-2023 MCH (RBC) [Entitic mass] 26.9 pg 27.0-32.[address] [facility] MCHC (RBC) [Mass/Vol] 31.4 g/dL 32-36 [facility] Nucleated RBC/100 WBC (Bld) [Ratio] 0 % 0-[address] [facility] Platelets (Bld) [#/Vol] 190 10*3/uL 150-[address] [facility] No Panel InformationOrdered By: Gerardo Watkins on 10-09-2023 Estimated Creatinine Clearance Calc 118.90 ml/min [facility] Estimated GFR (MDRD) Amer 104 mL/min >[address] [facility] Comment on above: GFR Calc Estimated GFR (MDRD) Non-Af Amer 86 mL/min >[address] [facility] Comment on above: Non- GFR Calc Platelet mean volume Bryson-Ec ker (Bld) [Entitic vol]Ordered By: Gerardo Watkins on 10-09-2023 Platelet mean volume (Bld) [Entitic vol] 9.8 fL 6.2-12.[address] [facility] RBC Auto (Bld) [#/Vol]Ordere d By: Gerardo Watkins on 10-09-2023 RBC (Bld) [#/Vol] 4.75 10*6/uL 4.6-6.2 [facility] Serum or plasma calcium talita urement (mass/volume)Ordered By: Gerardo Watkins on 10-09-2023 Calcium [Mass/Vol] 9.2 mg/dL 8.5-10.1 [facility] Serum or plasma creatinine m easurement (mass/volume)Ordered By: Gerardo Watkins on 10-09-2023 Creatinine [Mass/Vol] 0.97 mg/dL 0.70-1.30 [facility] Comment on above: The validity of the calculated GFR & GFRAA in patients over 70 years has not been determined. Clinical correlation is essential. Serum or plasma urea nitroge n measurement (mass/volume)Ordered By: Gerardo Watkins on 10-09-2023 Urea nitrogen [Mass/Vol] 13 mg/dL 7-[address] [facility] Thin prep Papanicolaou smear with manual screeningOrdered By: Gerardo Watkins on 10-09-2023 Thin prep Papanicolaou smear with manual screening 148 mg/dL 74-[address] [facility] Comment on above: MANAGEMENT OF PATIEN T CARE PER NURSING PROTOCOL Thin prep Papanicolaou smear with manual screening 3 5-[address] [facility] Absolute lymphocyte countOrd ered By: Fernandez Bryant on 10-07-2023 Lymphocytes Auto (Unsp spec) [#/Vol] 1.82 10*3/uL 0.83-4.[address] [facility] Automated lymphocyte count a s percentage of total leukocytesOrdered By: Fernandez Bryant on 10-07-2023 Lymphocytes/100 WBC Auto (Unsp spec) 19.8 % 19-[address] [facility] Basophil percentageOrdered B y: Fernandez Bryant on 10-07-2023 Basophils/100 WBC (Bld) 0.5 % 0-1 [facility] Bilirubin [Mass/Vol] 0.90 mg/dL 0.20-1.00 [facility] Comment on above: For patients on eltr ombopag therapy, use of Dimension [place] TBIL is not recommended. Chloride [Moles/Vol] 106 mmol/L 98-107 [facility] Eosinophils/100 WBC (Bld) 2.4 % 0-[address] [facility] Glucose [Mass/Vol] 152 mg/dL 74-106 [facility] Comment on above: Fasting Glucose resu lt greater than or equal to 126 mg/dL suggests DIABETES MELLITUS per A.D.A. criteria. Hemoglobin (Bld) [Mass/Vol] 14.2 g/dL 13.0-16.[address] [facility] Monocytes/100 WBC (Bld) 5.4 % 0-10 [facility] Neutrophils (Bld) [#/Vol] 6.6 10*3/uL 2.0-7.[address] [facility] Neutrophils/100 WBC (Bld) 71.4 % 47-[address] [facility] Potassium [Moles/Vol] 3.9 mmol/L 3.5-5.1 [facility] Protein [Mass/Vol] 7.9 g/dL 6.4-8.2 [facility] Sodium [Moles/Vol] 138 mmol/L 136-145 [facility] WBC (Bld) [#/Vol] 9.2 10*3/uL 4.4-11.0 [facility] Determination of erythrocyte mean corpuscular volume (MCV)Ordered By: Fernandez Bryant on 10-07-2023 MCV (RBC) [Entitic vol] 84.8 fL 80-94 [facility] Direct bilirubinOrdered By: Fernandez Bryant on 10-07-2023 Bilirubin.direct [Mass/Vol] 0.24 mg/dL 0.00-0.[address] [facility] Erythrocyte distribution wid th ratioOrdered By: Fernandez Bryant on 10-07-2023 Erythrocyte distribution width (RBC) [Ratio] 14.6 % 11.6-14.[address] [facility] Erythrocyte distribution wid th standard deviationOrdered By: Fernandez Bryant on 10-07-2023 Erythrocyte distribution width (RBC) [Entitic vol] 44.1 fL 35.1-43.[address] [facility] Hematocrit Auto (Bld) [Volum e fraction]Ordered By: Fernandez Bryant on 10-07-2023 Hematocrit (Bld) [Volume fraction] 43.0 % 40-[address] [facility] Immature granulocytes/100 WB C Auto (Bld)Ordered By: Fernandez Bryant on 10-07-2023 Immature granulocytes/100 WBC (Bld) 0.500 % 0.0-0.[address] [facility] Comment on above: IG% - Immature Granu locytes (promyelocytes, myelocytes and metamyelocytes) > 1% indicates that a LEFT SHIFT is Present. Laboratory - Chemistry and C hemistry - challengeOrdered By: Fernandez Bryant on 10-07-2023 ALP [Catalytic activity/Vol] 103 U/L 45-[address] [facility] ALT [Catalytic activity/Vol] 106 U/L 16-[address] [facility] CO2 [Moles/Vol] 26.0 mmol/L 21.0-32.[address] [facility] Globulin (S) [Mass/Vol] 4.1 g/dL 2.2-4.2 [facility] Lipase [Catalytic activity/Vol] 43 U/L 13-[address] [facility] Comment on above: Please note:LIPASE r evised reference range effective 22. New Lipase methodology. Expected to produce lower values than the previous assay method. NEW Reference Range: 13 - 75 U/L Urea nitrogen/Creatinine [Mass ratio] 13.2 mg/mg 10-[address] [facility] Laboratory - Hematology and Cell countsOrdered By: [facility] on 10-07-2023 MCH (RBC) [Entitic mass] 28.0 pg 27.0-32.[address] [facility] MCHC (RBC) [Mass/Vol] 33.0 g/dL 32-36 [facility] Nucleated RBC/100 WBC (Bld) [Ratio] 0 % 0-[address] [facility] Platelets (Bld) [#/Vol] 234 10*3/uL 150-[address] [facility] No Panel InformationOrdered By: Gerardo Watkins on 10-07-2023 Troponin I High Sensitivity 7 pg/mL 3.0-78.[address] [facility] Comment on above: Please Note: [place] t Units and Gender Specific Reference Ranges. For more information see Policy Stat Procedure [place] High Sensitivity Troponin (TNIH) and attachments. No Panel InformationOrdered By: Fernandez Bryant on 10-07-2023 Estimated Creatinine Clearance Calc 118.48 ml/min [facility] Estimated GFR (MDRD) Amer 103 mL/min >[address] [facility] Comment on above: GFR Calc Estimated GFR (MDRD) Non-Af Amer 85 mL/min >[address] [facility] Comment on above: Non- GFR Calc Platelet mean volume Bryson-Ec ker (Bld) [Entitic vol]Ordered By: Fernandez Bryant on 10-07-2023 Platelet mean volume (Bld) [Entitic vol] 10.0 fL 6.2-12.[address] [facility] RBC Auto (Bld) [#/Vol]Ordere d By: Fernandez Bryant on 10-07-2023 RBC (Bld) [#/Vol] 5.07 10*6/uL 4.6-6.2 [facility] Serum or plasma calcium talita urement (mass/volume)Ordered By: Fernandez Bryant on 10-07-2023 Calcium [Mass/Vol] 9.6 mg/dL 8.5-10.1 [facility] Serum or plasma cardiac trop onin I panel by high sensitivity methodOrdered By: Fernandez Bryant on 10-07-2023 Tropinin I.cardiac panel High sensitivity method 7 pg/mL 3.0-78.[address] [facility] Comment on above: Please Note: [place] t Units and Gender Specific Reference Ranges. For more information see Policy Stat Procedure [place] High Sensitivity Troponin (TNIH) and attachments. Serum or plasma creatinine m easurement (mass/volume)Ordered By: Fernandez Bryant on 10-07-2023 Creatinine [Mass/Vol] 0.98 mg/dL 0.70-1.30 [facility] Comment on above: The validity of the calculated GFR & GFRAA in patients over 70 years has not been determined. Clinical correlation is essential. Serum or plasma urea nitroge n measurement (mass/volume)Ordered By: [facility] Bryant on 10-07-2023 Urea nitrogen [Mass/Vol] 13 mg/dL 7-[address] [facility] Thin prep Papanicolaou smear with manual screeningOrdered By: Fernandez Bryant on 10-07-2023 Thin prep Papanicolaou smear with manual screening 3.8 g/dL 3.2-5.[address] [facility] Thin prep Papanicolaou smear with manual screening 62 U/L 15-[address] [facility] Thin prep Papanicolaou smear with manual screening 6 5-[address] [facility] Beta hydroxybutyrate [Mass o r moles/Vol]on 09-22-2023 Beta hydroxybutyrate [Moles/Vol] 0.23 mmol/L 0.02 - 0.27 mmol/L [facility] Interpretation and review of laboratory results Normal [facility] The beta-hydroxybutyrate test performance characteristics have been validated by [facility]. This test has not been approved by the FDA; however, such approval is not necessary. [facility] CBC W Auto Differential pane l (Bld)on 09-22-2023 Basophils (Bld) [#/Vol] 0.06 10*3/uL [facility] Basophils/100 WBC (Bld) 0.5 % 0.0 - 2.0 % [facility] Eosinophils (Bld) [#/Vol] 0.15 10*3/uL [facility] Eosinophils/100 WBC (Bld) 1.4 % 0.0 - 6.0 % [facility] Erythrocyte distribution width (RBC) [Ratio] 13.8 % 11.5 - 14.5 % [facility] Hematocrit (Bld) [Volume fraction] 44.8 % 41.0 - 52.0 % [facility] Hemoglobin (Bld) [Mass/Vol] 14.9 g/dL 13.5 - 17.5 g/dL [facility] Immature granulocytes (Bld) [#/Vol] 0.08 10*3/uL [facility] Immature granulocytes/100 WBC (Bld) 0.7 % 0.0 - 0.9 % [facility] Comment on above: Immature Granulocyte Count (IG) includes promyelocytes, myelocytes and metamyelocytes but does not include bands. Percent differential counts (%) should be interpreted in the context of the absolute cell counts (cells/UL). Interpretation and review of laboratory results Abnormal [facility] Lymphocytes (Bld) [#/Vol] 2.31 10*3/uL [facility] Lymphocytes/100 WBC (Bld) 21.2 % 13.0 - 44.0 % [facility] MCH (RBC) [Entitic mass] 27.5 pg 26.0 - 34.0 pg [facility] MCHC (RBC) [Mass/Vol] 33.3 g/dL 32.0 - 36.0 g/dL [facility] MCV (RBC) [Entitic vol] 83 fL 80 - 100 fL [facility] Monocytes (Bld) [#/Vol] 0.45 10*3/uL [facility] Monocytes/100 WBC (Bld) 4.1 % 2.0 - 10.0 % [facility] Neutrophils (Bld) [#/Vol] 7.87 10*3/uL High [facility] Comment on above: Percent differential counts (%) should be interpreted in the context of the absolute cell counts (cells/uL). Neutrophils/100 WBC (Bld) 72.1 % 40.0 - 80.0 % [facility] Nucleated RBC/100 WBC (Bld) [Ratio] 0.0 % [facility] Platelets (Bld) [#/Vol] 224 10*3/uL [facility] RBC (Bld) [#/Vol] 5.41 10*6/uL [facility] WBC (Bld) [#/Vol] 10.9 10*3/uL [facility] CT Abdomen and Pelvis W cont rast Elizabeth 09-22-2023 1. No acute abnormal ity within the abdomen or pelvis. 2. Hepatomegaly and hepatic steatosis. MACRO: None Signed by: Edson Fam 09/22/2023 7:41 PM Dictation workstation: [id number] [facility]AL Interpreted By: Edson Barksdale, STUDY: CT ABDOMEN PELVIS W IV CONTRAST; 09/22/2023 7:28 pm INDICATION: Signs/Symptoms:abd pain x3 days. COMPARISON: CT abdomen and pelvis 03/29/2014 ACCESSION NUMBER(S): [id number] ORDERING CLINICIAN: XIMENA DOYLE TECHNIQUE: Contiguous axial images of the abdomen and pelvis were obtained after the intravenous administration of 68 mL Omnipaque 350 contrast. Coronal and sagittal reformatted images were reconstructed from the axial data. FINDINGS: LOWER CHEST: No acute abnormality. LIVER: The right hepatic lobe is enlarged at 23 cm in length. Diffuse hepatic steatosis. BILE DUCTS: No significant intrahepatic or extrahepatic dilatation. GALLBLADDER: No significant abnormality. PANCREAS: No significant abnormality. SPLEEN: No significant abnormality. ADRENALS: No significant abnormality. KIDNEYS, URETERS, BLADDER: No significant abnormality. REPRODUCTIVE ORGANS: No significant abnormality. GI: No obstruction. No bowel wall thickening or adjacent inflammatory change. Normal appendix. VESSELS: No significant abnormality. The portal veins and IVC are patent. PERITONEUM/RETROPERITON EUM: No ascites, free air, or fluid collection. LYMPH NODES: No enlarged lymph nodes. ABDOMINAL WALL: No significant abnormality. OSSEOUS STRUCTURES: No acute osseous abnormality. [facility] Edson Fam MD - 09/22/2023 Interpreted By: Edson Fam, STUDY: CT ABDOMEN PELVIS W IV CONTRAST; 09/22/2023 7:28 pm INDICATION: Signs/Symptoms:abd pain x3 days. COMPARISON: CT abdomen and pelvis 03/29/2014 ACCESSION NUMBER(S): [id number] ORDERING CLINICIAN: XIMENA DOYLE TECHNIQUE: Contiguous axial images of the abdomen and pelvis were obtained after the intravenous administration of 68 mL Omnipaque 350 contrast. Coronal and sagittal reformatted images were reconstructed from the axial data. FINDINGS: LOWER CHEST: No acute abnormality. LIVER: The right hepatic lobe is enlarged at 23 cm in length. Diffuse hepatic steatosis. BILE DUCTS: No significant intrahepatic or extrahepatic dilatation. GALLBLADDER: No significant abnormality. PANCREAS: No significant abnormality. SPLEEN: No significant abnormality. ADRENALS: No significant abnormality. KIDNEYS, URETERS, BLADDER: No significant abnormality. REPRODUCTIVE ORGANS: No significant abnormality. GI: No obstruction. No bowel wall thickening or adjacent inflammatory change. Normal appendix. VESSELS: No significant abnormality. The portal veins and IVC are patent. PERITONEUM/RETROPERITON EUM: No ascites, free air, or fluid collection. LYMPH NODES: No enlarged lymph nodes. ABDOMINAL WALL: No significant abnormality. OSSEOUS STRUCTURES: No acute osseous abnormality. IMPRESSION: 1. No acute abnormality within the abdomen or pelvis. 2. Hepatomegaly and hepatic steatosis. MACRO: None Signed by: Edson Fam 09/22/2023 7:41 PM Dictation workstation: [id number] [facility] Work Phone: Radiology Study observation (narrative) [facility] Work Phone: CT Abdomen and Pelvis W cont rast IVOrdered By: Edson Fam on 09-22-2023 [facility] Work Phone: Comprehensive metabolic 2000 panelon 09-22-2023 Albumin BCP dye [Mass/Vol] 4.3 g/dL 3.4 - 5.0 g/dL [facility] ALP [Catalytic activity/Vol] 125 U/L High 33 - 120 U/L [facility] ALT With P-5'-P [Catalytic activity/Vol] 54 U/L High 10 - 52 U/L [facility] Comment on above: Patients treated wit h Sulfasalazine may generate falsely decreased results for ALT. Anion gap [Moles/Vol] 17 mmol/L 10 - 2 0 mmol/L [facility] AST With P-5'-P [Catalytic activity/Vol] 31 U/L 9 - 39 U/L [facility] Bilirubin [Mass/Vol] 0.7 mg/dL 0.0 - 1 .2 mg/dL [facility] Calcium [Mass/Vol] 9.5 mg/dL 8.6 - 10. 3 mg/dL [facility] Chloride [Moles/Vol] 90 mmol/L Low 98 - 10 7 mmol/L [facility] CO2 [Moles/Vol] 23 mmol/L 21 - 32 mmol/L [facility] Creatinine [Mass/Vol] 1.03 mg/dL 0.50 - 1.30 mg/dL [facility] GFR/1.73 sq M.predicted among non-blacks MDRD (S/P/Bld) [Vol rate/Area] 87 mL/min/{1.73_m2} - PINF [facility] Comment on above: Calculations of jonathan mated GFR are performed using the 2020 CKD-EPI Study Refit equation without the race variable for the IDMS-Traceable creatinine methods. https://jasn.asnjournals.org/content/early/ASN.2020 196427 Glucose [Mass/Vol] 517 mg/dL Critically high 74 - 9 9 mg/dL [facility] Interpretation and review of laboratory results Abnormal [facility] Potassium [Moles/Vol] 4.0 mmol/L 3.5 - 5.3 mmol/L [facility] Protein [Mass/Vol] 7.7 g/dL 6.4 - 8.2 g/dL [facility] Sodium [Moles/Vol] 126 mmol/L Low 136 - 145 mmol/L [facility] Urea nitrogen [Mass/Vol] 23 mg/dL 6 - 23 mg/dL [facility] ECG 12-LEADon 09-22-2023 ECG 12-LEAD Ventricular Rate 83 Atrial Rate 83 P-R Interval 144 QRS Duration 100 Q-T Interval 382 QTC Calculation(Bazett) 448 P Reinholds 64 R Reinholds 40 T Reinholds 40 QRS Count 13 Q Onset 222 P Onset 150 P Offset 212 T Offset 413 QTC Fredericia 425 Diagnosis Normal sinus rhythm Incomplete right bundle branch block Nonspecific T wave abnormality Abnormal ECG When compared with ECG of 22-SEP-2023 17:29, (unconfirmed) Incomplete right bundle branch block is now Present See ED provider note for full interpretation and clinical correlation Confirmed by Dana Flowers ([id number]) on 09/25/2023 10:53:22 AM Normal [facility] Gas panel (BldV)on Base excess Calc (BldV) [Moles/Vol] 0.6 mmol/L -2.0 - 3.0 mmol/L [facility] CO2 (BldV) [Partial pressure] 47 mm[Hg] [facility] HCO3 (Bld) [Moles/Vol] 26.6 mmol/L High 22.0 - 26.0 mmol/L [facility] Inhaled oxygen concentration 21 % [facility] Interpretation and review of laboratory results Abnormal [facility] Oxygen (BldV) [Partial pressure] 57 mm[Hg] High [facility] Oxygen saturation in Venous blood 87 % High 45 - 75 % [facility] Oxyhemoglobin (BldV) [Mass fraction] 85.4 % High 45.0 - 75.0 % [facility] pH (BldV) 7.36 [pH] 7.33 - 7.43 pH [facility] Test Comment [facility] s [facility] Glucose Test strip manual (B ld) [Mass/Vol]on 09-22-2023 Glucose [Mass/Vol] 320 mg/dL High 74 - 99 mg/dL [facility] Interpretation and review of laboratory results Abnormal [facility] Glucose [Mass/Vol] 382 mg/dL High 74 - 99 mg/dL [facility] Interpretation and review of laboratory results Abnormal [facility] Glucose [Mass/Vol] 593 mg/dL High 74 - 99 mg/dL [facility] Interpretation and review of laboratory results Abnormal [facility] Lactateon 09-22-2023 Lactate [Moles/Vol] 1.6 mmol/L 0.4 - 2. 0 mmol/L [facility] Lactate [Moles/Vol] 2.3 mmol/L High 0.4 - 2. 0 mmol/L [facility] Lactate [Moles/Vol] 2.3 mmol/L High 0.4 - 2. 0 mmol/L [facility] Lactate [Moles/Vol]on 2023 Interpretation and review of laboratory results Normal [facility] Venipuncture immediately after or during the administration of Metamizole may lead to falsely low results. Testing should be performed immediately prior to Metamizole dosing. [facility] Interpretation and review of laboratory results Abnormal [facility] Venipuncture immediately after or during the administration of Metamizole may lead to falsely low results. Testing should be performed immediately prior to Metamizole dosing. [facility] Interpretation and review of laboratory results Abnormal [facility] Venipuncture immediately after or during the administration of Metamizole may lead to falsely low results. Testing should be performed immediately prior to Metamizole dosing. [facility] Lipaseon 09-22-2023 Lipase [Catalytic activity/Vol] 50 U/L 9 - 82 U/L [facility] Lipase [Catalytic activity/V ol]on 09-22-2023 Interpretation and review of laboratory results Normal [facility] Venipuncture immediately after or during the administration of Metamizole may lead to falsely low results. Testing should be performed immediately prior to Metamizole dosing. [facility] Tropinin I.cardiac panel Hig h sensitivity methodon 09-22-2023 Interpretation and review of laboratory results Normal [facility] Less than 99th percentile of normal range cutoff- Female and children under 18 years old <14 ng/L; Male <21 ng/L: Negative Repeat testing should be performed if clinically indicated. Female and children under 18 years old 14-50 ng/L; Male 21-50 ng/L: Consistent with possible cardiac damage and possible increased clinical risk. Serial measurements may help to assess extent of myocardial damage. >50 ng/L: Consistent with cardiac damage, increased clinical risk and myocardial infarction. Serial measurements may help assess extent of myocardial damage. NOTE: Children less than 1 year old may have higher baseline troponin levels and results should be interpreted in conjunction with the overall clinical context. NOTE: Troponin I testing is performed using a different testing methodology at [facility] than at other [facility]. Direct result comparisons should only be made within the same method. [facility] Interpretation and review of laboratory results Normal [facility] Less than 99th percentile of normal range cutoff- Female and children under 18 years old <14 ng/L; Male <21 ng/L: Negative Repeat testing should be performed if clinically indicated. Female and children under 18 years old 14-50 ng/L; Male 21-50 ng/L: Consistent with possible cardiac damage and possible increased clinical risk. Serial measurements may help to assess extent of myocardial damage. >50 ng/L: Consistent with cardiac damage, increased clinical risk and myocardial infarction. Serial measurements may help assess extent of myocardial damage. NOTE: Children less than 1 year old may have higher baseline troponin levels and results should be interpreted in conjunction with the overall clinical context. NOTE: Troponin I testing is performed using a different testing methodology at [facility] than at other [facility]. Direct result comparisons should only be made within the same method. [facility] Troponin I, High Sensitivity , Initialon 09-22-2023 Tropinin I.cardiac panel High sensitivity method 4 ng/L 0 - 20 ng/L [facility] Troponin, High Sensitivity, 1 Houron 09-22-2023 Tropinin I.cardiac panel High sensitivity method 5 ng/L 0 - 20 ng/L [facility] Urinalysis complete W Reflex Culture panel (U)on 09-22-2023 Appearance (U) Clear Clear [facility] Bilirubin (U) [Mass/Vol] Negative NEGATIVE [facility] Color (U) Straw Straw, Yellow [facility] Glucose Auto test strip (U) [Mass/Vol] >=500 (3+) Abnormal NEGATIVE mg/dL [facility] Interpretation and review of laboratory results Abnormal [facility] Ketones (U) [Mass/Vol] Negative NEGAT MIK mg/dL [facility] Leukocyte esterase Auto test strip Ql (U) Negative NEGATIVE [facility] Nitrite Auto test strip Ql (U) Negative NEGATIVE [facility] pH (U) 6.0 [pH] 5.0, 5.5, 6.0, 6.5, 7.0, 7.5, 8.0 [facility] Protein (U) [Mass/Vol] Negative NEGAT MIK mg/dL [facility] RBC (U) [#/Vol] Negative NEGATIVE [facility] Specific gravity (U) [Rel density] 1.035 1.005 - 1.035 [facility] Urobilinogen (U) [Mass/Vol] mg/dL NINF - 2.0 mg/dL [facility] Office Visit (Urology)on Follow-up visit Diagnoses/Problems Assessed Benign prostatic hyperplasia with urinary obstruction and other lower urinary tract symptoms (600.21) (N40.1,N13.8) Calcium kidney stone (592.0) (N20.0) Erectile dysfunction (607.84) (N52.9) Pyelonephritis (590.80) (N12) Patient Discussion/Summary Treatment options for LUTS reviewed All available PSA values reviewed, Options discussed. Questions answered. Diet changes for prostate health discussed and educational information given. Pros/Cons of prostate health supplements discussed. Lifestyle change to help prevent UTIs discussed. Encouraged fluid intake. Cx reviewed Patient saw ID WIll repeat Cx after completing Augmentin F/U Thursday to recheck Cx Chief Complaint 1 week f/u w/ PSA History of Present IllnessPatient is here for 1 week f/u w/ PSA. Most recent PSA was 0.19 on 04/29. He was seen last week for ER f/u. CT was done 10/07/22 and was normal [facility] [place] [facility] perinephric stranding but no stones or obstruction. .Urine cx was sent last week that did come back positive. .He was given Augmentin on Thursday for a positive Cx and feels much better...ED is mild.. Review of Systems Constitutional: No fever, No chills. Eye: Negative. Ear/Nose/Mouth/Throat: Negative. Respiratory: No shortness of breath, No cough. Cardiovascular: No chest pain, No peripheral edema. Gastrointestinal: No nausea, Genitourinary: Negative except as documented in history of present illness. Hematology/Lymphatics: Patient denies being on blood thinners.. Endocrine: Negative. Immunologic: Not immunocompromised. Musculoskeletal: Negative Integumentary: Negative. Neurologic: Alert and oriented X4. Psychiatric: Negative. Active Problems Problems Benign prostatic hyperplasia with urinary obstruction and other lower urinary tract symptoms (600.21) (N40.1,N13.8) Calcium kidney stone (592.0) (N20.0) Contusion of left upper arm, subsequent encounter (V58.89,923.03) (S40.022D) Dysuria (788.1) (R30.0) Erectile dysfunction (607.84) (N52.9) Pyelonephritis (590.80) (N12) Surgical History Problems History of Coronary artery bypass graft Family History Mother No pertinent family history Father No pertinent family history Social History Problems Former smoker (V15.82) (Z87.891) Allergies Medication No Known Drug Allergies Recorded By: Lauren Osorio; 04/16/2023 9:04:57 AM Current Meds Medication NameInstruction Amoxicillin-Pot Clavulanate 500-125 MG Oral TabletTake 1 tablet twice daily Aspir-Low 81 MG TBEC Ciprofloxacin HCl - 500 MG Oral TabletTAKE 1 TABLET TWICE DAILY. Clopidogrel Bisulfate 75 MG Oral Tablet metFORMIN HCl TABS Metoprolol Tartrate 100 MG Oral Tablet Vitals Vital Signs Recorded: [id number] 04:01PM Tpnrmawmyfs78 Fruuao702 lb BMI Viugjltcbt64.97 kg/m2 BSA Calculated2.17 Tobacco Useb) No PHQ-2 Patient Declined/Screening not indicatedYes Falls Screening (Age 18+)a) No falls within the last year Physical Exam A/O x 3 in No apparent distress Constitutional: General appearance normal Respiratory: Respiratory effort is normal Gastrointestinal:Abdome n is not tender Genitourinary: Kidneys: Not palpable Bilaterally Bladder: Not palpable or tender Scrotum: No mass. No Hydrocele Epididymis: No spermatocele. Not tender Testicles: no mass Urethra: No Discharge Penis: WNL...No lesions Prostate: benign Signatures Electronically signed by : Lebron Cross II, MD; Apr 22 2023 4:08PM EST (Author) Normal [employer] Tobacco Screening.on 023 Fall risk assessment a) No falls within the last year MT-Wihilzh[facility]J [email or web address] Phone: Tobacco use status CPHS b) No M P-Urology-A [email or web address] Phone: Tobacco Screening. Yes MP-Uro logy-A [email or web address] Phone: Cult, Urineon 04-16-2023 Bacteria identified Cx Nom (U) Abnormal HV-Skjbtgl-F [email or web address] Phone: Office Visit (Urology)on Follow-up visit Diagnoses/Problems Assessed Calcium kidney stone (592.0) (N20.0) Benign prostatic hyperplasia with urinary obstruction and other lower urinary tract symptoms (600.21) (N40.1,N13.8) Erectile dysfunction (607.84) (N52.9) Pyelonephritis (590.80) (N12) History of Coronary artery bypass graft No pertinent family history : Mother, Father Former smoker (V15.82) (Z87.891) Dysuria (788.1) (R30.0) Orders Dysuria Cult, Urine; Status:Active - Retrospective By Protocol Authorization; Requested for:16Apr2023; Perform:Lab Services - Lab To Draw (Non-Blood Test); Due:15Jul2023; Last Updated By:Jannie Bacon; 04/16/2023 9:14:14 AM;Ordered; For:Dysuria; Ordered By:Lebron Cross II; Patient Discussion/Summary CT reviewed x 2 PSA ordered Diet changes for prostate health discussed and educational information given. Pros/Cons of prostate health supplements discussed. Treatment options for LUTS reviewed Discussed timed voiding. Discussed fluid and caffeine intake ED is not an issue Lifestyle change to help prevent UTIs discussed. Encouraged fluid intake. Self start Cipro Rx given Cx sent F/U next week Chief Complaint kidney stone and infection History of Present IllnessPatient is here for kidney stone and pyelonephritis..Patient was in [facility], was treated with IV antibiotics and IM injections after discharge..States is feeling better..CT was done 10/07/22 and was normal from [facility]. [facility] showed mild perinephric stranding but no stones or obstruction. ..Chronic BPH with LUTs, sx are mild and stable..No dysuria, No hematuria since discharged from [place]..Nocturia x 1-2, depending on fluid intake..ED is mild.. No PSA. Review of Systems Constitutional: No fever, No chills Eye: glasses Respiratory: No shortness of breath, No cough. Cardiovascular: No chest pain Gastrointestinal: No nausea Genitourinary: Negative except as documented in history of present illness. Hematology/Lymphatics: Patient denies being on blood thinners.. Endocrine: Negative. Immunologic: Not immunocompromised. Musculoskeletal: joint pain Integumentary: Negative. Neurologic: Alert and oriented X4. Psychiatric: Negative. Active Problems Problems Contusion of left upper arm, subsequent encounter (V58.89,923.03) (S40.022D) Surgical History Problems History of Coronary artery bypass graft Family History Mother No pertinent family history Father No pertinent family history Social History Problems Former smoker (V15.82) (Z87.891) Allergies Medication No Known Drug Allergies Recorded By: Lauren Osorio; 04/16/2023 9:04:57 AM Current Meds Medication NameInstruction Aspir-Low 81 MG TBEC Clopidogrel Bisulfate 75 MG Oral Tablet metFORMIN HCl TABS Metoprolol Tartrate 100 MG Oral Tablet Vitals Vital Signs Recorded: 16Apr2023 09:05AM Qpjhgybycit99 Height5 ft 8 in Mhhedg888 lb BMI Oycwuzsmmf88.34 kg/m2 BSA Calculated2.2 Tobacco Useb) No PHQ-2 Patient Declined/Screening not indicatedYes Falls Screening (Age 18+)a) No falls within the last year Physical Exam A/O x 3 in No apparent distress Constitutional: General appearance normal Respiratory: Respiratory effort is normal Gastrointestinal:Abdome n is not tender Genitourinary: Kidneys: Not palpable Bilaterally Bladder: Not palpable or tender Scrotum: No mass. No Hydrocele Epididymis: No spermatocele. Not tender Testicles: no mass. WNL Urethra: No Discharge Penis: WNL...No lesions. Uncircumcised Prostate: Symmetric. No Nodules. Benign Seminal Vesicles: No mass Sphincter Tone: normal Signatures Electronically signed by : Lebron Cross II, MD; Apr 16 2023 9:15AM EST (Author) Normal [employer] PROSTATE SPECIFIC AGon 04-16 Prostate specific Ag [Mass/Vol] 0.19 ng/mL Normal 0.00 - 4.00 [facility] Comment on above: Result Comment: The FDA requires that the method used for PSA assay be reported to the physician. Values obtained with different assay methods must not be used interchangeably. This test was performed at [facility] using the Access Hybr[employer]ch PSA assay is a two-site immunoenzymatic sandwich assay. The assay is approved for measurement of prostate-specific antigen (PSA)in serum and may be used in conjunction with a digital rectal examination in men 50 years and older as an aid in detection of prostate cancer. 5-Genkw-qlahhbund inhibitors (e.g. Proscar, Finasteride, Avodart, Dutasteride and Catina) for the treatment of BPH have been shown to lower PSA levels by an average of 50% after 6 months of treatment. Performed By: #### P #### [place] [id number] Prostate Specific Antigen 04-16-2023 Prostate specific Ag [Mass/Vol] 0.19 ng/mL See Below OR-Sjpstqw-I [facility] Work Phone: Comment on above: Reference Range: 0.0 0 - 4.00The FDA requires that the method used for PSA assay be reported to the physician. Values obtained with different assay methods must not be used interchangeably. This testwas performed at [facility] using the Access Hybritech PSA assay is a two-site immunoenzymatic sandwich assay. The assay is approved for measurement of prostate-specific antigen (PSA)in serum and may be used in conjunction with a digital rectal examination in men 50 years and older as an aid in detection of prostate cancer.7-Ymsfo-mhhuerlnw inhibitors (e.g. Proscar, Finasteride, Avodart, Dutasteride and Catina) for the treatment of BPH have been shown to lower PSA levels by an average of 50% after 6 months of treatment. Tobacco Screening.on 023 Fall risk assessment a) No falls within the last year CI-Qgmknkb-G ICON [facility] Work Phone: Tobacco use status CP b) No M P-Urology-R [facility] 232 DO Work Phone: Tobacco Screening. Yes MP-Uro logy-R [facility] 232 DO Work Phone: URINE CULTURE,BACTERIALon URINE CULTURE,BACTERIAL PATIENT: NICK LOPES LOC[place] [facility] [place]#: [id number] : 70 AGE: SEX: M ORDERED BY: LEBRON CROSS SOURCE: URINE COLLECTED: 04/16/23 09:14 ANTIBIOTICS AT TALI.: RECEIVED : 04/17/23 00:32 SITE: Clean Catch/Voided R E S U L T S URINE CULTURE,BACTERIAL FINAL 04/18/23 15:52 ISOLATE1 : Escherichia coli >100,000 CFU/ML EXTENDED SPECTRUM BETA LACTAMASE (ESBL) PRODUCING STRAIN. Organism E coli Antibiotic BP INTRP Amikacin S Ampicillin R Amox/Clavulanate I Aztreonam R Ceftriaxone R Ceftazidime R Cefotaxime R Cefazolin R Ciprofloxacin R Cefepime R Nitrofurantoin R Gentamicin R Levofloxacin R Meropenem S Piperc/Tazobact S Trimeth/Sulfa R Tobramycin R Cefuroxime R S=SUSCEPTIBLE I=INTERMEDIATE R=RESISTANT SDD=SUSCEPTIBLE DOSE DEPENDENT NS=NONSUSCEPTIBLE X=REPORTED IN ERROR Normal [facility] Comment on above: Performed By: #### U RINC #### [facility] [id number] [place] [address] Basic metabolic 2000 panelon 03-30-2023 Anion gap [Moles/Vol] 15 mmol/L 9 - 18 mmol/L [facility] Calcium [Mass/Vol] 9.9 mg/dL 8.5 - 10. 2 mg/dL [facility] Chloride [Moles/Vol] 100 mmol/L 97 - 10 5 mmol/L [facility] CO2 [Moles/Vol] 24 mmol/L 22 - 30 mmol/L [facility] Creatinine [Mass/Vol] 0.91 mg/dL 0.73 - 1.22 mg/dL [facility] Estimated Glomerular Filtration Rate 101 mL/min/1.73m >=60 mL/min/1.73 m [facility] Glucose [Mass/Vol] 160 mg/dL High 74 - 99 mg/dL [facility] Potassium [Moles/Vol] 4.6 mmol/L 3.7 - 5.1 mmol/L [facility] Sodium [Moles/Vol] 139 mmol/L 136 - 144 mmol/L [facility] Urea nitrogen [Mass/Vol] 19 mg/dL 9 - 24 mg/dL [facility] CBC W Auto Differential pane l (Bld)on 03-30-2023 Basophils (Bld) [#/Vol] 0.07 10*3/uL <0.11 k/uL [facility] Basophils/100 WBC (Bld) 0.7 % [facility] Differential cell count method Nom (Bld) Auto [facility] Eosinophils (Bld) [#/Vol] 0.11 10*3/uL <0.46 k/uL [facility] Eosinophils/100 WBC (Bld) 1.0 % [facility] Erythrocyte distribution width (RBC) [Ratio] 14.9 % 11.5 - 15.0 % [facility] Hematocrit (Bld) [Volume fraction] 43.6 % 39.0 - 51.0 % [facility] Hemoglobin (Bld) [Mass/Vol] 13.4 g/dL 13.0 - 17.0 g/dL [facility] Immature granulocytes (Bld) [#/Vol] 0.20 10*3/uL High <0.10 k/uL [facility] Immature granulocytes/100 WBC (Bld) 1.9 % [facility] Lymphocytes (Bld) [#/Vol] 1.72 10*3/uL 1.00 - 4.00 k/uL [facility] Lymphocytes/100 WBC (Bld) 16.1 % [facility] MCH (RBC) [Entitic mass] 27.1 pg 26.0 - 34.0 pg [facility] MCHC (RBC) [Mass/Vol] 30.7 g/dL 30.5 - 36.0 g/dL [facility] MCV (RBC) [Entitic vol] 88.1 fL 80.0 - 100.0 fL [facility] Monocytes (Bld) [#/Vol] 0.50 10*3/uL <0.87 k/uL [facility] Monocytes/100 WBC (Bld) 4.7 % [facility] Neutrophils (Bld) [#/Vol] 8.11 10*3/uL High 1.45 - 7.50 k/uL [facility] Neutrophils/100 WBC (Bld) 75.6 % [facility] Nucleated RBC (Bld) [#/Vol] <0.01 k/uL [facility] Nucleated RBC/100 WBC (Bld) [Ratio] 0.0 /100 WBC [facility] Platelet mean volume (Bld) [Entitic vol] 11.0 fL 9.0 - 12.7 fL [facility] Platelets (Bld) [#/Vol] 220 10*3/uL 150 - 400 k/uL [facility] RBC (Bld) [#/Vol] 4.95 10*6/uL 4.20 - 6.0 0 m/uL [facility] WBC (Bld) [#/Vol] 10.71 10*3/uL 3.70 - 11.00 k/uL [facility] Narrative Note - Outpatient- IM ATB Injectionon 03-29-2023 Narrative Note - Outpatient-IM ATB Injection Narrative Note: Discipline/ClinicIM ATB Injection Description pt ambulatory to 320 with son and grandson. pt given ertapenem 1 g via IM injection. pt reported no issues and d/c to home. Electronic Signatures: Yodit HernandezRN) (Signed 29-Mar-2023 12:16) Authored: Narrative Note - OP Last Updated: 29-Mar-2023 12:16 by Yodit Hernandez (RN) [facility] Narrative Note - Outpatient- IM ATB injectionon 03-28-2023 Narrative Note - Outpatient-IM ATB injection Narrative Note: Discipline/ClinicIM ATB injection Description pt ambulatory to 320 with son. pt given ertapenem 1 g via IM injection. pt reported no issues and d/c to home. Electronic Signatures: Yodit Hernandez) (Signed 28-Mar-2023 12:29) Authored: Narrative Note - OP Last Updated: 28-Mar-2023 12:29 by Yodit Hernandez (RN) [facility] Note - Intakeon 03-27 Clinic Note - Intake Patient Visit Information: Visit TypeFollow Up Visit, ESBL ECOLI PYELO/ERTAPENEM INFUSION Source of Informationpatient Admission Information: Admission Since Last VisitNo Vital Signs: Temp (degrees C)36.1 degrees C Temperatureskin Heart Rate (beats/min)97 beats per minute Respiration (breaths/min)20 breath per minute BP Systolic (mm Hg)130 mmHg BP Diastolic (mm Hg)84 mmHg BP Mean (mm Hg)99 mmHg Height in cm172.7 centimeter(s) Weight in kg127.2 kilogram(s) Weightstanding BMI (kg/m2)42.6 kg/M2 BSA (m2)2.47 M2 Pain Screening: Patient States Painno (0) Allergies: No Known Allergies: Active Outpatient Medication Profile: * Patient Currently Takes Medications as of 23-Mar-2023 12:01 documented in Structured Notes levothyroxine 125 mcg (0.125 mg) oral tablet: 1 tab(s) orally once a day Metoprolol Succinate ER 50 mg oral tablet, extended release: 1 tab(s) orally once a day amLODIPine 10 mg oral tablet: 1 tab(s) orally once a day atorvastatin 20 mg oral tablet: 1 tab(s) orally once a day PARoxetine 30 mg oral tablet: 1 tab(s) orally once a day ibuprofen 200 mg oral tablet: 4 tab(s) orally every 6 hours, As Needed - for pain Aspir 81 oral delayed release tablet: 1 tab(s) orally once a day clopidogrel 75 mg oral tablet: 1 tab(s) orally once a day oxycodone-acetaminophen 5 mg-325 mg oral tablet: 1 tab(s) orally every 6 hours stool softener: Notification: NotificationsAnnual Screens Due Dates Advanced Directives: Mar 22, 2024 Family Violence: Mar 22, 2024 Depression (Due every 6 months for ONC only; all others use Annual date): Sep 19, 2023 Substance Use - Alcohol: Mar 22, 2024 Substance Use - Drugs: Mar 22, 2024 Nutrition: Due Now Learning: Due Now Travel History: COVID-19 Screening Completedno exposure or symptoms Travel or ExposureNO travel to International locations in the past 30 days Falls: Have you fallen in the last 6 monthsno Do you have a fear of fallingno Do you feel you need assistanceno Is the patient using an assistive deviceno Not a falls riskimplement environmental risk factors interventions Electronic Signatures: Aline Nick) (Signed 27-Mar-2023 12:05) Authored: Patient Visit Information, Vital Signs, Allergies, Outpatient Medication Profile, Notification, Travel History, Falls Last Updated: 27-Mar-2023 12:05 by Aline Nick) [facility] Note - Intakeon 03-26 Clinic Note - Intake Patient Visit Information: Visit TypeFollow Up Visit, inj Source of Informationpatient Accompanied byfamily Admission Information: Admission Since Last VisitNo Vital Signs: Temp (degrees C)36.3 degrees C Temperatureskin Heart Rate (beats/min)88 beats per minute Respiration (breaths/min)16 breath per minute BP Systolic (mm Hg)124 mmHg BP Diastolic (mm Hg)72 mmHg BP Mean (mm Hg)89 mmHg Height in cm172.7 centimeter(s) SpO2 (%)95 % SpO2 Patient Onroom air Pain Screening: Patient States Painno (0) Allergies: No Known Allergies: Active Outpatient Medication Profile: * Patient Currently Takes Medications as of 23-Mar-2023 12:01 documented in Structured Notes levothyroxine 125 mcg (0.125 mg) oral tablet: 1 tab(s) orally once a day Metoprolol Succinate ER 50 mg oral tablet, extended release: 1 tab(s) orally once a day amLODIPine 10 mg oral tablet: 1 tab(s) orally once a day atorvastatin 20 mg oral tablet: 1 tab(s) orally once a day PARoxetine 30 mg oral tablet: 1 tab(s) orally once a day ibuprofen 200 mg oral tablet: 4 tab(s) orally every 6 hours, As Needed - for pain Aspir 81 oral delayed release tablet: 1 tab(s) orally once a day clopidogrel 75 mg oral tablet: 1 tab(s) orally once a day oxycodone-acetaminophen 5 mg-325 mg oral tablet: 1 tab(s) orally every 6 hours stool softener: Notification: NotificationsAnnual Screens Due Dates Advanced Directives: Mar 22, 2024 Family Violence: Mar 22, 2024 Depression (Due every 6 months for ONC only; all others use Annual date): Sep 19, 2023 Substance Use - Alcohol: Mar 22, 2024 Substance Use - Drugs: Mar 22, 2024 Nutrition: Due Now Learning: Due Now Travel History: COVID-19 Screening Completedno exposure or symptoms Travel or ExposureNO travel to International locations in the past 30 days Falls: Have you fallen in the last 6 monthsno Do you have a fear of fallingno Do you feel you need assistanceno Is the patient using an assistive deviceno Not a falls riskimplement environmental risk factors interventions Electronic Signatures: Taylor Lewis (HOWIE ARTHUR) (Signed 26-Mar-2023 12:21) Authored: Patient Visit Information, Vital Signs, Allergies, Outpatient Medication Profile, Notification, Travel History, Falls Last Updated: 26-Mar-2023 12:21 by Taylor Lewis II) [facility] Note - Intakeon 03-25 Clinic Note - Intake Patient Visit Information: Visit TypeFollow Up Visit, inj Source of Informationpatient Accompanied byfamily Admission Information: Admission Since Last VisitNo Vital Signs: Temp (degrees C)36.4 degrees C Temperatureskin Heart Rate (beats/min)78 beats per minute Respiration (breaths/min)16 breath per minute BP Systolic (mm Hg)130 mmHg BP Diastolic (mm Hg)88 mmHg BP Mean (mm Hg)102 mmHg Height in cm172.7 centimeter(s) SpO2 (%)95 % SpO2 Patient Onroom air Pain Screening: Patient States Painno (0) Allergies: No Known Allergies: Active Outpatient Medication Profile: * Patient Currently Takes Medications as of 23-Mar-2023 12:01 documented in Structured Notes levothyroxine 125 mcg (0.125 mg) oral tablet: 1 tab(s) orally once a day Metoprolol Succinate ER 50 mg oral tablet, extended release: 1 tab(s) orally once a day amLODIPine 10 mg oral tablet: 1 tab(s) orally once a day atorvastatin 20 mg oral tablet: 1 tab(s) orally once a day PARoxetine 30 mg oral tablet: 1 tab(s) orally once a day ibuprofen 200 mg oral tablet: 4 tab(s) orally every 6 hours, As Needed - for pain Aspir 81 oral delayed release tablet: 1 tab(s) orally once a day clopidogrel 75 mg oral tablet: 1 tab(s) orally once a day oxycodone-acetaminophen 5 mg-325 mg oral tablet: 1 tab(s) orally every 6 hours stool softener: Notification: NotificationsAnnual Screens Due Dates Advanced Directives: Mar 22, 2024 Family Violence: Mar 22, 2024 Depression (Due every 6 months for ONC only; all others use Annual date): Sep 19, 2023 Substance Use - Alcohol: Mar 22, 2024 Substance Use - Drugs: Mar 22, 2024 Nutrition: Due Now Learning: Due Now Travel History: COVID-19 Screening Completedno exposure or symptoms Travel or ExposureNO travel to International locations in the past 30 days Falls: Have you fallen in the last 6 monthsno Do you have a fear of fallingno Do you feel you need assistanceno Is the patient using an assistive deviceno Not a falls riskimplement environmental risk factors interventions Electronic Signatures: Taylor Lewis (HOWIE ARTHUR) (Signed 25-Mar-2023 12:10) Authored: Patient Visit Information, Vital Signs, Allergies, Outpatient Medication Profile, Notification, Travel History, Falls Last Updated: 25-Mar-2023 12:10 by Taylor Lewis (HOWIE ARTHUR) [facility] Note - Intakeon 03-24 Clinic Note - Intake Patient Visit Information: Visit TypeFollow Up Visit, inj Source of Informationpatient Accompanied byfamily Admission Information: Admission Since Last VisitNo Vital Signs: Temp (degrees C)36.2 degrees C Temperatureskin Heart Rate (beats/min)76 beats per minute Respiration (breaths/min)16 breath per minute BP Systolic (mm Hg)116 mmHg BP Diastolic (mm Hg)71 mmHg BP Mean (mm Hg)86 mmHg Height in cm172.7 centimeter(s) Weight in kg125.5 kilogram(s) Weightstanding BMI (kg/m2)42 kg/M2 BSA (m2)2.45 M2 SpO2 (%)95 % SpO2 Patient Onroom air Pain Screening: Patient States Painno (0) Allergies: No Known Allergies: Active Outpatient Medication Profile: * Patient Currently Takes Medications as of 23-Mar-2023 12:01 documented in Structured Notes levothyroxine 125 mcg (0.125 mg) oral tablet: 1 tab(s) orally once a day Metoprolol Succinate ER 50 mg oral tablet, extended release: 1 tab(s) orally once a day amLODIPine 10 mg oral tablet: 1 tab(s) orally once a day atorvastatin 20 mg oral tablet: 1 tab(s) orally once a day PARoxetine 30 mg oral tablet: 1 tab(s) orally once a day ibuprofen 200 mg oral tablet: 4 tab(s) orally every 6 hours, As Needed - for pain Aspir 81 oral delayed release tablet: 1 tab(s) orally once a day clopidogrel 75 mg oral tablet: 1 tab(s) orally once a day oxycodone-acetaminophen 5 mg-325 mg oral tablet: 1 tab(s) orally every 6 hours stool softener: Notification: NotificationsAnnual Screens Due Dates Advanced Directives: Mar 22, 2024 Family Violence: Mar 22, 2024 Depression (Due every 6 months for ONC only; all others use Annual date): Sep 19, 2023 Substance Use - Alcohol: Mar 22, 2024 Substance Use - Drugs: Mar 22, 2024 Nutrition: Due Now Learning: Due Now Travel History: COVID-19 Screening Completedno exposure or symptoms Travel or ExposureNO travel to International locations in the past 30 days Falls: Have you fallen in the last 6 monthsno Do you have a fear of fallingno Do you feel you need assistanceno Is the patient using an assistive deviceno Not a falls riskimplement environmental risk factors interventions Electronic Signatures: Taylor Lewis (HOWIE ARTHUR) (Signed 24-Mar-2023 12:00) Authored: Patient Visit Information, Vital Signs, Allergies, Outpatient Medication Profile, Notification, Travel History, Falls Last Updated: 24-Mar-2023 12:00 by Taylor Lewis (HOWIE ARTHUR) [facility] Note - Intakeon 03-23 Clinic Note - Intake Patient Visit Information: Visit TypeNew Visit, inj Source of Informationpatient Accompanied byfamily Vital Signs: Temp (degrees C)35.1 degrees C Temperatureskin Heart Rate (beats/min)70 beats per minute Respiration (breaths/min)16 breath per minute BP Systolic (mm Hg)121 mmHg BP Diastolic (mm Hg)76 mmHg BP Mean (mm Hg)91 mmHg Height in cm172.7 centimeter(s) Heightstanding Weight in kg124.8 kilogram(s) Weightstanding BMI (kg/m2)41.8 kg/M2 BSA (m2)2.44 M2 SpO2 (%)94 % SpO2 Patient Onroom air Pain Screening: Patient States Painno (0) Allergies: No Known Allergies: Active Outpatient Medication Profile: * Patient Currently Takes Medications as of 23-Mar-2023 12:01 documented in Structured Notes levothyroxine 125 mcg (0.125 mg) oral tablet: Last Dose Taken: , 1 tab(s) orally once a day Metoprolol Succinate ER 50 mg oral tablet, extended release: Last Dose Taken: , 1 tab(s) orally once a day amLODIPine 10 mg oral tablet: Last Dose Taken: , 1 tab(s) orally once a day atorvastatin 20 mg oral tablet: Last Dose Taken: , 1 tab(s) orally once a day PARoxetine 30 mg oral tablet: Last Dose Taken: , 1 tab(s) orally once a day ibuprofen 200 mg oral tablet: Last Dose Taken: , 4 tab(s) orally every 6 hours, As Needed - for pain Aspir 81 oral delayed release tablet: Last Dose Taken: , 1 tab(s) orally once a day clopidogrel 75 mg oral tablet: Last Dose Taken: , 1 tab(s) orally once a day oxycodone-acetaminophen 5 mg-325 mg oral tablet: 1 tab(s) orally every 6 hours stool softener: Notification: NotificationsAll annual screens currently due. Travel History: COVID-19 Screening Completedno exposure or symptoms Travel or ExposureNO travel to International locations in the past 30 days Falls: Have you fallen in the last 6 monthsno Do you have a fear of fallingno Do you feel you need assistanceno Is the patient using an assistive deviceno Not a falls riskimplement environmental risk factors interventions Spiritual/Procedural: Spiritual/cultural/reli gious practices important for us to knowno Adv Dir: Living Willno Healthcare POAno Declaration of Mental Health Treatmentno Living Will Formsdeclines more information Healthcare POA Formsdeclined more information Mental Health Formsdeclines more information Violence: Are you or have you been threatened or abused physically,emotionally or sexually abused by anyoneno Do you feel UNSAFE going back to the place you are livingno Depression: Past 2 wks: [place] down, depressed or hopelessno Past 2 wks: [place] little interest/pleasure doing thingsno Any Thoughts of Harming Othersno Substance: How many times in the past year have you hd 5 or more drinks within 24 hours0 How many times in past year have you used recreational or prescription drugs for non-medical reasons0 Electronic Signatures: Taylor Lewis (HOWIE ARTHUR) (Signed 23-Mar-2023 12:02) Authored: Patient Visit Information, Vital Signs, Allergies, Outpatient Medication Profile, Notification, Travel History, Falls, Spiritual/Procedural, Adv Dir, Violence, Depression, Substance Last Updated: 23-Mar-2023 12:02 by Taylor Lewis (HOWIE ARTHUR) [facility] Glucose Glucometer (BldC) [M ass/Vol]Ordered By: Artem Gonzales on 03-22-2023 Glucose [Mass/Vol] 115 mg/dL 74-106 [facility] Comment on above: MANAGEMENT OF PATIEN T CARE PER NURSING PROTOCOL Absolute lymphocyte countOrd ered By: Artem Gonzales on 03-21-2023 Lymphocytes Auto (Unsp spec) [#/Vol] 1.57 10*3/uL 0.83-4.[address] [facility] Basophil percentageOrdered B y: Artem Gonzales on 03-21-2023 Basophils/100 WBC (Bld) 0.4 % 0-1 [facility] Chloride [Moles/Vol] 104 mmol/L 98-107 [facility] Eosinophils/100 WBC (Bld) 1.2 % 0-[address] [facility] Glucose [Mass/Vol] 126 mg/dL 74-106 [facility] Comment on above: Fasting Glucose resu lt greater than or equal to 126 mg/dL suggests DIABETES MELLITUS per A.D.A. criteria. Neutrophils (Bld) [#/Vol] 4.9 10*3/uL 2.0-7.[address] [facility] Neutrophils/100 WBC (Bld) 65.2 % 47-[address] [facility] Potassium [Moles/Vol] 4.3 mmol/L 3.5-5.1 [facility] Sodium [Moles/Vol] 140 mmol/L 136-145 [facility] WBC (Bld) [#/Vol] 7.5 10*3/uL 4.4-11.0 [facility] Blood erythrocytes count (nu mber/volume)Ordered By: Artem Gonzales on 03-21-2023 RBC (Bld) [#/Vol] 4.21 10*6/uL 4.6-6.2 [facility] Blood hemoglobin measurement (mass/volume)Ordered By: Artem Gonzales on 03-21-2023 Hemoglobin (Bld) [Mass/Vol] 11.5 g/dL 13.0-16.[address] [facility] Blood lymphocytes/100 leukoc ytesOrdered By: Artem Gonzales on 03-21-2023 Lymphocytes/100 WBC (Bld) 21.0 % 19-[address] [facility] Blood monocytes/100 leukocyt esOrdered By: Artem Gonzales on 03-21-2023 Monocytes/100 WBC (Bld) 11.5 % 0-10 [facility] Blood platelet mean volumeOr dered By: Artem Gonzales on 03-21-2023 Platelet mean volume (Bld) [Entitic vol] 10.8 fL 6.2-12.[address] [facility] Determination of erythrocyte mean corpuscular volume (MCV)Ordered By: Artem Gonzales on 03-21-2023 MCV (RBC) [Entitic vol] 89.8 fL 80-94 [facility] Hematocrit Auto (Bld) [Volum e fraction]Ordered By: Artem Gonzales on 03-21-2023 Hematocrit (Bld) [Volume fraction] 37.8 % 40-[address] [facility] Laboratory - Chemistry and C hemistry - challengeOrdered By: Artem Gonzales on 03-21-2023 CO2 [Moles/Vol] 29.0 mmol/L 21.0-32.[address] [facility] Urea nitrogen/Creatinine [Mass ratio] 10.8 mg/mg 10-[address] [facility] Laboratory - Hematology and Cell countsOrdered By: Artem Gonzales on 03-21-2023 Erythrocyte distribution width (RBC) [Entitic vol] 50.4 fL 35.1-43.[address] [facility] Erythrocyte distribution width (RBC) [Ratio] 15.2 % 11.6-14.[address] [facility] Immature granulocytes/100 WBC (Bld) 0.700 % 0.0-0.[address] [facility] Comment on above: IG% - Immature Granu locytes (promyelocytes, myelocytes and metamyelocytes) > 1% indicates that a LEFT SHIFT is Present. MCH (RBC) [Entitic mass] 27.3 pg 27.0-32.[address] [facility] Nucleated RBC/100 WBC (Bld) [Ratio] 0 % 0-[address] [facility] MCHC Auto (RBC) [Mass/Vol]Or dered By: Artem Gonzales on 03-21-2023 MCHC (RBC) [Mass/Vol] 30.4 g/dL 32-36 [facility] No Panel InformationOrdered By: Artem Gonzales on 03-21-2023 Estimated Creatinine Clearance Calc 81.96 ml/min [facility] Estimated GFR (MDRD) Amer 99 mL/min >[address] [facility] Comment on above: GFR Calc Estimated GFR (MDRD) Non-Af Amer 81 mL/min >[address] [facility] Comment on above: Non- GFR Calc Platelets bldOrdered By: Fuentes Gonzales on 03-21-2023 Platelets (Bld) [#/Vol] 183 10*3/uL 150-[address] [facility] Serum or plasma calcium talita urement (mass/volume)Ordered By: Artem Gonzales on 03-21-2023 Calcium [Mass/Vol] 9.0 mg/dL 8.5-10.1 [facility] Serum or plasma creatinine m easurement (mass/volume)Ordered By: Artem Gonzales on 03-21-2023 Creatinine [Mass/Vol] 1.02 mg/dL 0.70-1.30 [facility] Comment on above: The validity of the calculated GFR & GFRAA in patients over 70 years has not been determined. Clinical correlation is essential. Serum or plasma urea nitroge n measurement (mass/volume)Ordered By: Artem Gonzales on 03-21-2023 Urea nitrogen [Mass/Vol] 11 mg/dL 7-[address] [facility] Thin prep Papanicolaou smear with manual screeningOrdered By: Artem Gonzales on 03-21-2023 Thin prep Papanicolaou smear with manual screening 7 5-[address] [facility] Basophil percentageOrdered B y: Hiral Rodriguez on 03-18-2023 Bilirubin [Mass/Vol] 0.80 mg/dL 0.20-1.00 [facility] Comment on above: For patients on eltr ombopag therapy, use of Dimension [place] TBIL is not recommended. Protein [Mass/Vol] 7.3 g/dL 6.4-8.2 [facility] Basophil percentageOrdered B y: Porter Banuelos on 03-18-2023 Lactate [Moles/Vol] 1.2 mmol/L 0.4-2.0 [facility] INR in Blood by Coagulation assayOrdered By: Porter Banuelos on 03-18-2023 INR Coag (Bld) [Relative time] 1.2 {INR} [facility] Laboratory - Chemistry and C hemistry - challengeOrdered By: Hiral Rodriguez on 03-18-2023 ALP [Catalytic activity/Vol] 87 U/L 45-[address] [facility] ALT [Catalytic activity/Vol] 46 U/L 16-[address] [facility] Globulin (S) [Mass/Vol] 5.0 g/dL 2.2-4.2 [facility] Laboratory - CoagulationOrde red By: Porter Banuelos on 03-18-2023 PT Coag (PPP) [Time] 15.2 s 11.7-14.9 [facility] Laboratory - Hematology and Cell countsOrdered By: Hiral Rodriguez on 03-18-2023 Anisocytosis Ql (Bld) 1+ [facility] Review by pathologistOrdered By: Hiral Rodriguez on 03-18-2023 Pathologist review Gerry (Unsp spec) [Interp] Reviewed [facility] Comment on above: Previous reported re sult: Ramila mcrae Edited by: ANDREA on 03/19/23:1014Neutrophilic leukocytosis.Clinical correlation necessary.Ash Cerda M.D. 03/19/23 AMENDED REPORT 03/19/23 1014 PATH REV previously reported as: Ramila mcrae Serum or plasma albumin talita urement (mass/volume)Ordered By: Hiral Rodriguez on 03-18-2023 Albumin [Mass/Vol] 2.3 g/dL 3.2-5.0 [facility] Serum or plasma albumin/glob ulin mass ratioOrdered By: Hiral Rodrigeuz on 03-18-2023 Albumin/Globulin [Mass ratio] 0.5 {ratio} 0.9-2.[address] [facility] Thin prep Papanicolaou smear with manual screeningOrdered By: Hiral Rodriguez on 03-18-2023 Thin prep Papanicolaou smear with manual screening 38 U/L 15-[address] [facility] Absolute lymphocyte countOrd ered By: Porter Banuelos on 03-17-2023 Lymphocytes Auto (Unsp spec) [#/Vol] 1.20 10*3/uL 0.83-4.[address] [facility] Basophil percentageOrdered B y: Porter Banuelos on 03-17-2023 Basophil percentage 25-50 SEEN /hpf 0-[address] [facility] Basophils/100 WBC (Bld) 0.3 % 0-1 [facility] Bilirubin [Mass/Vol] 1.00 mg/dL 0.20-1.00 [facility] Comment on above: For patients on eltr ombopag therapy, use of Dimension [place] TBIL is not recommended. Chloride [Moles/Vol] 95 mmol/L 98-107 [facility] Eosinophils/100 WBC (Bld) 0.0 % 0-[address] [facility] Glucose [Mass/Vol] 143 mg/dL 74-106 [facility] Comment on above: Fasting Glucose resu lt greater than or equal to 126 mg/dL suggests DIABETES MELLITUS per A.D.A. criteria. Neutrophils (Bld) [#/Vol] 15.8 10*3/uL 2.0-7.[address] [facility] Neutrophils/100 WBC (Bld) 84.4 % 47-[address] [facility] Potassium [Moles/Vol] 3.4 mmol/L 3.5-5.1 [facility] Protein [Mass/Vol] 8.8 g/dL 6.4-8.2 [facility] Sodium [Moles/Vol] 131 mmol/L 136-145 [facility] WBC (Bld) [#/Vol] 18.7 10*3/uL 4.4-11.0 [facility] Bilirubin Test strip Ql (U)O rdered By: Porter Banuelos on 03-17-2023 Bilirubin Ql (U) 1 mg/dL Negative [facility] Comment on above: COLOR OF URINE MAY A FFECT DIPSTICK RESULTS. Blood erythrocytes count (nu mber/volume)Ordered By: Porter Banuelos on 03-17-2023 RBC (Bld) [#/Vol] 4.83 10*6/uL 4.6-6.2 [facility] Blood hemoglobin measurement (mass/volume)Ordered By: Porter Banuelos on 03-17-2023 Hemoglobin (Bld) [Mass/Vol] 13.5 g/dL 13.0-16.[address] [facility] Blood lymphocytes/100 leukoc ytesOrdered By: Porter Banuelos on 03-17-2023 Lymphocytes/100 WBC (Bld) 6.4 % 19-[address] [facility] Blood manual differential co mment interpretation (narrative result)Ordered By: Porter Banuelos on 03-17-2023 Manual differential comment Gerry (Bld) [Interp] SCANNED [facility] Comment on above: MONOCYTOSIS NOTED Blood monocytes/100 leukocyt esOrdered By: Porter Banuelos on 03-17-2023 Monocytes/100 WBC (Bld) 8.2 % 0-10 [facility] Blood platelet mean volumeOr dered By: Porter Banuelos on 03-17-2023 Platelet mean volume (Bld) [Entitic vol] 9.5 fL 6.2-12.[address] [facility] COVID-19 virus antigen assay Ordered By: Porter Banuelos on 03-17-2023 SARS-CoV-2 (COVID-19) Ag IA.rapid Ql (Resp) [facility] Culture, urineOrdered By: Do enrike Banuelos on 03-17-2023 Bacteria identified Cx Nom (U) ESBL Escherichia coli [facility] Determination of erythrocyte mean corpuscular volume (MCV)Ordered By: Porter Banuelos on 03-17-2023 MCV (RBC) [Entitic vol] 88.0 fL 80-94 [facility] Hematocrit Auto (Bld) [Volum e fraction]Ordered By: Porter Banuelos on 03-17-2023 Hematocrit (Bld) [Volume fraction] 42.5 % 40-[address] [facility] Hyaline casts LM.LPF (Urine sed) [#/Area]Ordered By: Porter Banuelos on 03-17-2023 Hyaline casts (Urine sed) [#/Area] 0 /[LPF] 0-[address] [facility] Ketones Test strip Ql (U)Ord ered By: Porter Banuelos on 03-17-2023 Ketones Ql (U) 15 mg/dl Negative [facility] Laboratory - Chemistry and C hemistry - challengeOrdered By: Porter Banuelos on 03-17-2023 ALP [Catalytic activity/Vol] 109 U/L 45-[address] [facility] ALT [Catalytic activity/Vol] 58 U/L 16-[address] [facility] CO2 [Moles/Vol] 31.0 mmol/L 21.0-32.[address] [facility] Globulin (S) [Mass/Vol] 6.0 g/dL 2.2-4.2 [facility] Lipase [Catalytic activity/Vol] 25 U/L 13-[address] [facility] Comment on above: Please note:LIPASE r evised reference range effective 22. New Lipase methodology. Expected to produce lower values than the previous assay method. NEW Reference Range: 13 - 75 U/L Urea nitrogen/Creatinine [Mass ratio] 10.1 mg/mg 10-[address] [facility] Laboratory - Chemistry and C hemistry - challengeOrdered By: Hiral Rodriguez on 03-17-2023 Magnesium [Mass/Vol] 2.3 mg/dL 1.6-2.6 [facility] Laboratory - Hematology and Cell countsOrdered By: Porter Banuelos on 03-17-2023 Erythrocyte distribution width (RBC) [Entitic vol] 47.5 fL 35.1-43.[address] [facility] Erythrocyte distribution width (RBC) [Ratio] 14.6 % 11.6-14.[address] [facility] Immature granulocytes/100 WBC (Bld) 0.700 % 0.0-0.[address] [facility] Comment on above: IG% - Immature Granu locytes (promyelocytes, myelocytes and metamyelocytes) > 1% indicates that a LEFT SHIFT is Present. MCH (RBC) [Entitic mass] 28.0 pg 27.0-32.[address] [facility] Nucleated RBC/100 WBC (Bld) [Ratio] 0 % 0-[address] [facility] MCHC Auto (RBC) [Mass/Vol]Or dered By: Porter Banuelos on 03-17-2023 MCHC (RBC) [Mass/Vol] 31.8 g/dL 32-36 [facility] Mucus LM Ql (Urine sed)Order ed By: Porter Banuelos on 03-17-2023 Mucus Ql (Urine sed) 0 SEEN /hpf [facility] Nitrite Test strip Ql (U)Ord ered By: Porter Banuelos on 03-17-2023 Nitrite Ql (U) Positive Negative [facility] No Panel InformationOrdered By: Porter Banuelos on 03-17-2023 Estimated Creatinine Clearance Calc 44.47 ml/min [facility] Estimated GFR (MDRD) Amer 49 mL/min >[address] [facility] Comment on above: GFR Calc Estimated GFR (MDRD) Non-Af Amer 40 mL/min >[address] [facility] Comment on above: Non- GFR Calc Platelets bldOrdered By: Mike Banuelos on 03-17-2023 Platelets (Bld) [#/Vol] 219 10*3/uL 150-[address] [facility] Protein Test strip Ql (U)Ord ered By: Porter Banuelos on 03-17-2023 Protein Ql (U) 500 mg/dl Negative [facility] Review by pathologistOrdered By: Porter Banuelos on 03-17-2023 Pathologist review Gerry (Unsp spec) [Interp] May foll [facility] Serum or plasma albumin talita urement (mass/volume)Ordered By: Porter Banuelos on 03-17-2023 Albumin [Mass/Vol] 2.8 g/dL 3.2-5.0 [facility] Serum or plasma albumin/glob ulin mass ratioOrdered By: Porter Banuelos on 03-17-2023 Albumin/Globulin [Mass ratio] 0.5 {ratio} 0.9-2.[address] [facility] Serum or plasma calcium talita urement (mass/volume)Ordered By: Porter Banuelos on 03-17-2023 Calcium [Mass/Vol] 9.1 mg/dL 8.5-10.1 [facility] Serum or plasma creatinine m easurement (mass/volume)Ordered By: Porter Banuelos on 03-17-2023 Creatinine [Mass/Vol] 1.88 mg/dL 0.70-1.30 [facility] Comment on above: The validity of the calculated GFR & GFRAA in patients over 70 years has not been determined. Clinical correlation is essential. Serum or plasma urea nitroge n measurement (mass/volume)Ordered By: Porter Banuelos on 03-17-2023 Urea nitrogen [Mass/Vol] 19 mg/dL 7-[address] [facility] Squamous epithelial cells de tection in urine sediment by light microscopyOrdered By: Porter Banuelos on 03-17-2023 Epithelial cells.squamous LM Ql (Urine sed) 0-5 SEEN /hpf 0-[address] [facility] Thin prep Papanicolaou smear with manual screeningOrdered By: Porter Banuelos on 03-17-2023 Thin prep Papanicolaou smear with manual screening 45 U/L 15-[address] [facility] Thin prep Papanicolaou smear with manual screening 5 5-[address] [facility] Urine blood detectionOrdered By: Porter Banuelos on 03-17-2023 RBC Ql (U) 250 /ul Negative [facility] RBC Ql (U) > 100 SEEN /hpf 0-[address] [facility] Urine clarityOrdered By: Mike Banuelos on 03-17-2023 Clarity (U) Cloudy Clear [facility] Urine color determinationOrd ered By: Porter Banuelos on 03-17-2023 Color (U) Yellow Yellow [facility] Urine glucose detectionOrder ed By: Porter Banuelos on 03-17-2023 Glucose Ql (U) Normal mg/dl Normal [facility] Urine leukocyte esterase det ection by dipstickOrdered By: Porter Banuelos on 03-17-2023 Leukocyte esterase Test strip Ql (U) 100 /ul Negative [facility] Urine pHOrdered By: Porter craig on 03-17-2023 pH (U) 5.0 [pH] 5.0 - 8.[address] [facility] Urine sediment bacteria coun t by microscopy (number/high power field)Ordered By: Porter Banuelos on 03-17-2023 Bacteria LM.HPF (Urine sed) [#/Area] 2 /[HPF] None Seen [facility] Urine sediment fine granular cast count by microscopy (number/low power field)Ordered By: Porter Banuelos on 03-17-2023 Fine Granular Casts LM.LPF (Urine sed) [#/Area] 5-10 SEEN /lpf 0-[address] [facility] Urine specific gravity measu rementOrdered By: Porter Banuelos on 03-17-2023 Specific gravity (U) [Rel density] 1.020 1.002-1.[address] [facility] Urobilinogen Auto test strip Ql (U)Ordered By: Porter Banuelos on 03-17-2023 Urobilinogen Ql (U) 4 mg/dl Normal [facility] Absolute lymphocyte countOrd ered By: Tye Juarez on 03-04-2023 Lymphocytes Auto (Unsp spec) [#/Vol] 1.44 10*3/uL 0.83-4.[address] [facility] Basophil percentageOrdered B y: Tye Juarez on 03-04-2023 Basophils/100 WBC (Bld) 0.4 % 0-1 [facility] Bilirubin [Mass/Vol] 0.90 mg/dL 0.20-1.00 [facility] Comment on above: For patients on eltr ombopag therapy, use of Dimension [place] TBIL is not recommended. Chloride [Moles/Vol] 100 mmol/L 98-107 [facility] Eosinophils/100 WBC (Bld) 0.2 % 0-[address] [facility] Glucose [Mass/Vol] 129 mg/dL 74-106 [facility] Comment on above: Fasting Glucose resu lt greater than or equal to 126 mg/dL suggests DIABETES MELLITUS per A.D.A. criteria. Lactate [Moles/Vol] 1.3 mmol/L 0.4-2.0 [facility] Neutrophils (Bld) [#/Vol] 11.7 10*3/uL 2.0-7.[address] [facility] Neutrophils/100 WBC (Bld) 83.6 % 47-[address] [facility] Potassium [Moles/Vol] 3.7 mmol/L 3.5-5.1 [facility] Protein [Mass/Vol] 8.4 g/dL 6.4-8.2 [facility] Sodium [Moles/Vol] 134 mmol/L 136-145 [facility] WBC (Bld) [#/Vol] 14.0 10*3/uL 4.4-11.0 [facility] Basophil percentage 0-5 SEEN /hpf 0-5 [facility] Bilirubin Test strip Ql (U)O rdered By: Tye Juarez on 03-04-2023 Bilirubin Ql (U) 1 mg/dL Negative [facility] Comment on above: COLOR OF URINE MAY A FFECT DIPSTICK RESULTS. Blood erythrocytes count (nu mber/volume)Ordered By: Tye Juarez on 03-04-2023 RBC (Bld) [#/Vol] 4.75 10*6/uL 4.6-6.2 [facility] Blood hemoglobin measurement (mass/volume)Ordered By: Tye Juarez on 03-04-2023 Hemoglobin (Bld) [Mass/Vol] 13.3 g/dL 13.0-16.[address] [facility] Blood lymphocytes/100 leukoc ytesOrdered By: Tye Juarze on 03-04-2023 Lymphocytes/100 WBC (Bld) 10.3 % 19-[address] [facility] Blood monocytes/100 leukocyt esOrdered By: Tye Juarez on 03-04-2023 Monocytes/100 WBC (Bld) 5.1 % 0-10 [facility] Blood platelet mean volumeOr dered By: Tye Juarez on 03-04-2023 Platelet mean volume (Bld) [Entitic vol] 10.3 fL 6.2-12.[address] [facility] Determination of erythrocyte mean corpuscular volume (MCV)Ordered By: Tye Juarez on 03-04-2023 MCV (RBC) [Entitic vol] 86.9 fL 80-94 [facility] Hematocrit Auto (Bld) [Volum e fraction]Ordered By: Tye Juarez on 03-04-2023 Hematocrit (Bld) [Volume fraction] 41.3 % 40-[address] [facility] Influenza virus A and B and SARS-CoV-2 (COVID-19) Ag panel - Upper respiratory specimOrdered By: Tye Juarez on 03-04-2023 SARS-CoV-2 (COVID-19) RNA SEVERO+probe Ql (Resp) [facility] Ketones Test strip Ql (U)Ord ered By: Tye Juarez on 03-04-2023 Ketones Ql (U) 5 mg/dl Negative [facility] Laboratory - Chemistry and C hemistry - challengeOrdered By: Tye Juarez on 03-04-2023 ALP [Catalytic activity/Vol] 100 U/L 45-[address] [facility] ALT [Catalytic activity/Vol] 36 U/L 16-[address] [facility] CO2 [Moles/Vol] 26.0 mmol/L 21.0-32.[address] [facility] Globulin (S) [Mass/Vol] 5.1 g/dL 2.2-4.2 [facility] Lipase [Catalytic activity/Vol] 20 U/L 13-[address] [facility] Comment on above: Please note:LIPASE r evised reference range effective 22. New Lipase methodology. Expected to produce lower values than the previous assay method. NEW Reference Range: 13 - 75 U/L Urea nitrogen/Creatinine [Mass ratio] 12.6 mg/mg 10-[address] [facility] Laboratory - Hematology and Cell countsOrdered By: Tye Juarez on 03-04-2023 Erythrocyte distribution width (RBC) [Entitic vol] 47.2 fL 35.1-43.[address] [facility] Erythrocyte distribution width (RBC) [Ratio] 14.7 % 11.6-14.[address] [facility] Immature granulocytes/100 WBC (Bld) 0.400 % 0.0-0.[address] [facility] Comment on above: IG% - Immature Granu locytes (promyelocytes, myelocytes and metamyelocytes) > 1% indicates that a LEFT SHIFT is Present. MCH (RBC) [Entitic mass] 28.0 pg 27.0-32.[address] [facility] Nucleated RBC/100 WBC (Bld) [Ratio] 0 % 0-[address] [facility] MCHC Auto (RBC) [Mass/Vol]Or dered By: Tye Juarez on 03-04-2023 MCHC (RBC) [Mass/Vol] 32.2 g/dL 32-36 [facility] Mucus LM Ql (Urine sed)Order ed By: Tye Juarez on 03-04-2023 Mucus Ql (Urine sed) 0 SEEN /hpf [facility] Nitrite Test strip Ql (U)Ord ered By: Tye Juarez on 03-04-2023 Nitrite Ql (U) Negative Negative [facility] No Panel InformationOrdered By: Tye Juarez on 03-04-2023 Estimated Creatinine Clearance Calc 55.36 ml/min [facility] Estimated GFR (MDRD) Amer 63 mL/min >[address] [facility] Comment on above: GFR Calc Estimated GFR (MDRD) Non-Af Amer 52 mL/min >[address] [facility] Comment on above: Non- GFR Calc Platelets bldOrdered By: William Juarez on 03-04-2023 Platelets (Bld) [#/Vol] 210 10*3/uL 150-[address] [facility] Protein Test strip Ql (U)Ord ered By: Tye Juarez on 03-04-2023 Protein Ql (U) 100 mg/dl Negative [facility] Serum or plasma albumin talita urement (mass/volume)Ordered By: Tye Juarez on 03-04-2023 Albumin [Mass/Vol] 3.3 g/dL 3.2-5.0 [facility] Serum or plasma albumin/glob ulin mass ratioOrdered By: Tye Juraez on 03-04-2023 Albumin/Globulin [Mass ratio] 0.6 {ratio} 0.9-2.[address] [facility] Serum or plasma calcium talita urement (mass/volume)Ordered By: Tye Juarez on 03-04-2023 Calcium [Mass/Vol] 9.7 mg/dL 8.5-10.1 [facility] Serum or plasma creatinine m easurement (mass/volume)Ordered By: Tye Juarez on 03-04-2023 Creatinine [Mass/Vol] 1.51 mg/dL 0.70-1.30 [facility] Comment on above: The validity of the calculated GFR & GFRAA in patients over 70 years has not been determined. Clinical correlation is essential. Serum or plasma urea nitroge n measurement (mass/volume)Ordered By: Tye Juarez on 03-04-2023 Urea nitrogen [Mass/Vol] 19 mg/dL 7-[address] [facility] Squamous epithelial cells de tection in urine sediment by light microscopyOrdered By: Tye Juarez on 03-04-2023 Epithelial cells.squamous LM Ql (Urine sed) 0-5 SEEN /hpf 0-[address] [facility] Thin prep Papanicolaou smear with manual screeningOrdered By: Tye Juarez on 03-04-2023 Thin prep Papanicolaou smear with manual screening 19 U/L 15-[address] [facility] Thin prep Papanicolaou smear with manual screening 8 5-[address] [facility] Urine blood detectionOrdered By: Tye Juarez on 03-04-2023 RBC Ql (U) 25 /ul Negative [facility] RBC Ql (U) 0 SEEN /hpf 0-[address] [facility] Urine clarityOrdered By: William Juarez on 03-04-2023 Clarity (U) Clear Clear [facility] Urine color determinationOrd ered By: Tye Juarez on 03-04-2023 Color (U) Yellow Yellow [facility] Urine glucose detectionOrder ed By: Tye Juarez on 03-04-2023 Glucose Ql (U) Normal mg/dl Normal [facility] Urine leukocyte esterase det ection by dipstickOrdered By: Tye Juarez on 03-04-2023 Leukocyte esterase Test strip Ql (U) 25 /ul Negative [facility] Urine pHOrdered By: Tye medeiros on 03-04-2023 pH (U) 5.0 [pH] 5.0 - 8.[address] [facility] Urine sediment bacteria coun t by microscopy (number/high power field)Ordered By: Tye Juarez on 03-04-2023 Bacteria LM.HPF (Urine sed) [#/Area] 0 /[HPF] None Seen [facility] Urine specific gravity measu rementOrdered By: Tye Juarez on 03-04-2023 Specific gravity (U) [Rel density] 1.025 1.002-1.[address] [facility] Urobilinogen Auto test strip Ql (U)Ordered By: Tye Juarez on 03-04-2023 Urobilinogen Ql (U) 4 mg/dl Normal [facility] Absolute lymphocyte countOrd ered By: Gregbhavesh Turner on 01-31-2023 Lymphocytes Auto (Unsp spec) [#/Vol] 1.28 10*3/uL 0.83-4.[address] [facility] Basophil percentageOrdered B y: Gregbhavesh Turner on 01-31-2023 Basophil percentage 0 SEEN /hpf 0-5 [facility] Basophils/100 WBC (Bld) 0.2 % 0-1 [facility] Chloride [Moles/Vol] 105 mmol/L 98-107 [facility] Eosinophils/100 WBC (Bld) 1.1 % 0-[address] [facility] Glucose [Mass/Vol] 198 mg/dL 74-106 [facility] Comment on above: Fasting Glucose resu lt greater than or equal to 126 mg/dL suggests DIABETES MELLITUS per A.D.A. criteria. Neutrophils (Bld) [#/Vol] 10.6 10*3/uL 2.0-7.[address] [facility] Neutrophils/100 WBC (Bld) 82.7 % 47-[address] [facility] Potassium [Moles/Vol] 4.0 mmol/L 3.5-5.1 [facility] Sodium [Moles/Vol] 139 mmol/L 136-145 [facility] WBC (Bld) [#/Vol] 12.8 10*3/uL 4.4-11.0 [facility] Bilirubin Test strip Ql (U)O rdered By: Greg Turner on 01-31-2023 Bilirubin Ql (U) Negative Negative [facility] Blood erythrocytes count (nu mber/volume)Ordered By: Greg Turner on 01-31-2023 RBC (Bld) [#/Vol] 4.70 10*6/uL 4.6-6.2 [facility] Blood hemoglobin measurement (mass/volume)Ordered By: Gerg Turner on 01-31-2023 Hemoglobin (Bld) [Mass/Vol] 13.3 g/dL 13.0-16.[address] [facility] Blood lymphocytes/100 leukoc ytesOrdered By: Greg Turner on 01-31-2023 Lymphocytes/100 WBC (Bld) 10.0 % 19-[address] [facility] Blood monocytes/100 leukocyt esOrdered By: Gregbhavesh Turner on 01-31-2023 Monocytes/100 WBC (Bld) 5.5 % 0-10 [facility] Blood platelet mean volumeOr dered By: Greg Turner on 01-31-2023 Platelet mean volume (Bld) [Entitic vol] 9.7 fL 6.2-12.[address] [facility] Determination of erythrocyte mean corpuscular volume (MCV)Ordered By: Gregbhavesh Turner on 01-31-2023 MCV (RBC) [Entitic vol] 88.3 fL 80-94 [facility] Hematocrit Auto (Bld) [Volum e fraction]Ordered By: Gregbhavesh Turner on 01-31-2023 Hematocrit (Bld) [Volume fraction] 41.5 % 40-[address] [facility] Ketones Test strip Ql (U)Ord ered By: Gregbhavesh Turner on 01-31-2023 Ketones Ql (U) Negative Negative [facility] Laboratory - Chemistry and C hemistry - challengeOrdered By: Gregbhavesh Turner on 01-31-2023 CO2 [Moles/Vol] 28.0 mmol/L 21.0-32.[address] [facility] Urea nitrogen/Creatinine [Mass ratio] 10.8 mg/mg 10-[address] [facility] Laboratory - Hematology and Cell countsOrdered By: Gregbhavesh Turner on 01-31-2023 Erythrocyte distribution width (RBC) [Entitic vol] 46.3 fL 35.1-43.[address] [facility] Erythrocyte distribution width (RBC) [Ratio] 14.4 % 11.6-14.[address] [facility] Immature granulocytes/100 WBC (Bld) 0.500 % 0.0-0.[address] [facility] Comment on above: IG% - Immature Granu locytes (promyelocytes, myelocytes and metamyelocytes) > 1% indicates that a LEFT SHIFT is Present. MCH (RBC) [Entitic mass] 28.3 pg 27.0-32.[address] [facility] Nucleated RBC/100 WBC (Bld) [Ratio] 0 % 0-[address] [facility] MCHC Auto (RBC) [Mass/Vol]Or dered By: Greg Turner on 01-31-2023 MCHC (RBC) [Mass/Vol] 32.0 g/dL 32-36 [facility] Mucus LM Ql (Urine sed)Order ed By: Greg Turner on 01-31-2023 Mucus Ql (Urine sed) 0 SEEN /hpf [facility] Nitrite Test strip Ql (U)Ord ered By: Greg Turner on 01-31-2023 Nitrite Ql (U) Negative Negative [facility] No Panel InformationOrdered By: Greg Turner on 01-31-2023 Estimated Creatinine Clearance Calc 60.14 ml/min [facility] Estimated GFR (MDRD) Amer 69 mL/min >[address] [facility] Comment on above: GFR Calc Estimated GFR (MDRD) Non-Af Amer 57 mL/min >[address] [facility] Comment on above: Non- GFR Calc Platelets bldOrdered By: Greg Turner on 01-31-2023 Platelets (Bld) [#/Vol] 201 10*3/uL 150-[address] [facility] Protein Test strip Ql (U)Ord ered By: Greg Turner on 01-31-2023 Protein Ql (U) 30 mg/dl Negative [facility] Serum or plasma calcium talita urement (mass/volume)Ordered By: Greg Turner on 01-31-2023 Calcium [Mass/Vol] 9.2 mg/dL 8.5-10.1 [facility] Serum or plasma creatinine m easurement (mass/volume)Ordered By: Greg Turner on 01-31-2023 Creatinine [Mass/Vol] 1.39 mg/dL 0.70-1.30 [facility] Comment on above: The validity of the calculated GFR & GFRAA in patients over 70 years has not been determined. Clinical correlation is essential. Serum or plasma urea nitroge n measurement (mass/volume)Ordered By: Greg Turner on 01-31-2023 Urea nitrogen [Mass/Vol] 15 mg/dL 7-[address] [facility] Squamous epithelial cells de tection in urine sediment by light microscopyOrdered By: Greg Turner on 01-31-2023 Epithelial cells.squamous LM Ql (Urine sed) 0-5 SEEN /hpf 0-[address] [facility] Thin prep Papanicolaou smear with manual screeningOrdered By: Greg Turner on 01-31-2023 Thin prep Papanicolaou smear with manual screening 6 5-[address] [facility] Urine blood detectionOrdered By: Greg Turner on 01-31-2023 RBC Ql (U) 150 /ul Negative [facility] RBC Ql (U) 0-5 SEEN /hpf 0-[address] [facility] Urine clarityOrdered By: Greg Turner on 01-31-2023 Clarity (U) Clear Clear [facility] Urine color determinationOrd ered By: Greg Turner on 01-31-2023 Color (U) Yellow Yellow [facility] Urine glucose detectionOrder ed By: Greg Turner on 01-31-2023 Glucose Ql (U) 100 mg/dl Normal [facility] Urine leukocyte esterase det ection by dipstickOrdered By: Greg Turner on 01-31-2023 Leukocyte esterase Test strip Ql (U) Negative Negative [facility] Urine pHOrdered By: Greg ochoa on 01-31-2023 pH (U) 6.0 [pH] 5.0 - 8.[address] [facility] Urine sediment bacteria coun t by microscopy (number/high power field)Ordered By: Greg Turner on 01-31-2023 Bacteria LM.HPF (Urine sed) [#/Area] 0 /[HPF] None Seen [facility] Urine specific gravity measu rementOrdered By: Greg Turner on 01-31-2023 Specific gravity (U) [Rel density] 1.015 1.002-1.[address] [facility] Urobilinogen Auto test strip Ql (U)Ordered By: Greg Turner on 01-31-2023 Urobilinogen Ql (U) Normal mg/dl Normal [facility] Basophil percentageOrdered B y: Dr. Patton on 10-25-2022 Bilirubin [Mass/Vol] 0.40 mg/dL 0.20-1.00 [facility] Comment on above: For patients on eltr ombopag therapy, use of Dimension [place] TBIL is not recommended. Chloride [Moles/Vol] 104 mmol/L 98-107 [facility] Glucose [Mass/Vol] 210 mg/dL 74-106 [facility] Comment on above: Glucose result great er than or equal to 200 mg/dLsuggests DIABETES MELLITUS per A.D.A. criteria. Potassium [Moles/Vol] 3.9 mmol/L 3.5-5.1 [facility] Protein [Mass/Vol] 6.8 g/dL 6.4-8.2 [facility] Sodium [Moles/Vol] 139 mmol/L 136-145 [facility] WBC (Bld) [#/Vol] 10.3 10*3/uL 4.4-11.0 [facility] Blood erythrocytes count (nu mber/volume)Ordered By: Dr. Patton on 10-25-2022 RBC (Bld) [#/Vol] 4.56 10*6/uL 4.6-6.2 [facility] Blood hemoglobin measurement (mass/volume)Ordered By: Dr. Patton on 10-25-2022 Hemoglobin (Bld) [Mass/Vol] 12.6 g/dL 13.0-16.[address] [facility] Blood platelet mean volumeOr dered By: Dr. Patton on 10-25-2022 Platelet mean volume (Bld) [Entitic vol] 9.8 fL 6.2-12.[address] [facility] Determination of erythrocyte mean corpuscular volume (MCV)Ordered By: Dr. Patton on 10-25-2022 MCV (RBC) [Entitic vol] 87.5 fL 80-94 [facility] Hematocrit Auto (Bld) [Volum e fraction]Ordered By: Dr. Patton on 10-25-2022 Hematocrit (Bld) [Volume fraction] 39.9 % 40-[address] [facility] Laboratory - Chemistry and C hemistry - challengeOrdered By: Dr. Patton on 10-25-2022 ALP [Catalytic activity/Vol] 94 U/L 45-[address] [facility] ALT [Catalytic activity/Vol] 53 U/L 16-[address] [facility] CO2 [Moles/Vol] 27.0 mmol/L 21.0-32.[address] [facility] Globulin (S) [Mass/Vol] 3.7 g/dL 2.2-4.2 [facility] Urea nitrogen/Creatinine [Mass ratio] 18.5 mg/mg 10-[address] [facility] Laboratory - Hematology and Cell countsOrdered By: Dr. Patton on 10-25-2022 Erythrocyte distribution width (RBC) [Entitic vol] 45.1 fL 35.1-43.[address] [facility] Erythrocyte distribution width (RBC) [Ratio] 14.1 % 11.6-14.[address] [facility] MCH (RBC) [Entitic mass] 27.6 pg 27.0-32.[address] [facility] MCHC Auto (RBC) [Mass/Vol]Or dered By: Dr. Patton on 10-25-2022 MCHC (RBC) [Mass/Vol] 31.6 g/dL 32-36 [facility] No Panel InformationOrdered By: Dr. Patton on 10-25-2022 Estimated Creatinine Clearance Calc 98.31 ml/min [facility] Estimated GFR (MDRD) Amer 120 mL/min >[address] [facility] Comment on above: GFR Calc Estimated GFR (MDRD) Non-Af Amer 99 mL/min >[address] [facility] Comment on above: Non- GFR Calc Platelets bldOrdered By: Dr. Patton on 10-25-2022 Platelets (Bld) [#/Vol] 183 10*3/uL 150-[address] [facility] Serum or plasma albumin talita urement (mass/volume)Ordered By: Dr. Patton on 10-25-2022 Albumin [Mass/Vol] 3.1 g/dL 3.2-5.0 [facility] Serum or plasma albumin/glob ulin mass ratioOrdered By: Dr. Patton on 10-25-2022 Albumin/Globulin [Mass ratio] 0.8 {ratio} 0.9-2.[address] [facility] Serum or plasma calcium talita urement (mass/volume)Ordered By: Dr. Patton on 10-25-2022 Calcium [Mass/Vol] 8.8 mg/dL 8.5-10.1 [facility] Serum or plasma creatinine m easurement (mass/volume)Ordered By: Dr. Patton on 10-25-2022 Creatinine [Mass/Vol] 0.86 mg/dL 0.70-1.30 [facility] Comment on above: The validity of the calculated GFR & GFRAA in patients over 70 years has not been determined. Clinical correlation is essential. Serum or plasma urea nitroge n measurement (mass/volume)Ordered By: Dr. Patton on 10-25-2022 Urea nitrogen [Mass/Vol] 16 mg/dL 7-[address] [facility] Thin prep Papanicolaou smear with manual screeningOrdered By: Dr. Patton on 10-25-2022 Thin prep Papanicolaou smear with manual screening 28 U/L 15-[address] [facility] Thin prep Papanicolaou smear with manual screening 8 5-[address] [facility] No Panel InformationOrdered By: Dr. Patton on 10-24-2022 Activated Clotting Time 263 sec 74-137 [facility] TSH BLDon 10-08-2022 TSH Qn 3.010 m[IU]/L 0.270 - 4.200 mIU/L [facility] APTTon 10-07-2022 aPTT Coag (Bld) [Time] 28 s Normal 26 - 39 [facility] Comment on above: Result Comment: THE APTT IS NO LONGER USED FOR MONITORING UNFRACTIONATED HEPARIN THERAPY. FOR MONITORING HEPARIN THERAPY, USE THE HEPARIN ASSAY. Performed By: #### A PTT ####[address] [address] CBC AND DIFFERENTIALon 10-07 % AUTOMATED IMMATURE GRAN 0.2 % Normal 0.0 - 0.9 [facility] Comment on above: Result Comment: Cher ture Granulocyte Count (IG) includes promyelocytes, myelocytes and metamyelocytes but does not include bands. Percent differential counts (%) should be interpreted in the context of the absolute cell counts (cells/L). Performed By: #### C BCDF #### [address] [address] Basophils (Bld) [#/Vol] 0.05 10*3/uL Normal 0.00 - 0.1 0 [facility] Comment on above: Performed By: #### C BCDF #### [address] [address] Basophils/100 WBC (Bld) 0.6 % Normal 0.0 - 2.0 [facility] Comment on above: Performed By: #### C BCDF #### [address] [address] Eosinophils (Bld) [#/Vol] 0.10 10*3/uL Normal 0.00 - 0.70 [facility] Comment on above: Performed By: #### C BCDF #### [address] [address] Eosinophils/100 WBC (Bld) 1.2 % Normal 0.0 - 6.0 [facility] Comment on above: Performed By: #### C BCDF #### [address] [address] Erythrocyte distribution width (RBC) [Ratio] 14.2 % Normal 11.5 - 14.5 [facility] Comment on above: Performed By: #### C BCDF #### [address] [address] Hematocrit (Bld) [Volume fraction] 42.1 % Normal 41.0 - 52.0 [facility] Comment on above: Performed By: #### C BCDF #### [address] [address] Hemoglobin (Bld) [Mass/Vol] 13.3 g/dL Low 13.5 - 17.5 [facility] Comment on above: Performed By: #### C BCDF #### [address] [address] Lymphocytes (Bld) [#/Vol] 1.77 10*3/uL Normal 1.20 - 4.80 [facility] Comment on above: Performed By: #### C BCDF #### [address] [address] Lymphocytes/100 WBC (Bld) 21.4 % Normal 13.0 - 44.0 [facility] Comment on above: Performed By: #### C BCDF #### [address] [address] MCHC (RBC) [Mass/Vol] 31.6 g/dL Low 32.0 - 36.0 [facility] Comment on above: Performed By: #### C BCDF #### [address] [address] MCV (RBC) [Entitic vol] 88 fL Normal 80 - 100 [facility] Comment on above: Performed By: #### C BCDF #### [address] [address] Monocytes (Bld) [#/Vol] 0.42 10*3/uL Normal 0.10 - 1.0 0 [facility] Comment on above: Performed By: #### C BCDF #### [address] [address] Monocytes/100 WBC (Bld) 5.1 % Normal 2.0 - 10.0 [facility] Comment on above: Performed By: #### C BCDF #### [address] [address] Neutrophils (Bld) [#/Vol] 5.90 10*3/uL Normal 1.20 - 7.70 [facility] Comment on above: Result Comment: Perc ent differential counts (%) should be interpreted in the context of the absolute cell counts (cells/L). Performed By: #### C BCDF #### [address] [address] Neutrophils/100 WBC (Bld) 71.5 % Normal 40.0 - 80.0 [facility] Comment on above: Performed By: #### C BCDF #### [address] [address] Platelets (Bld) [#/Vol] 177 10*3/uL Normal 150 - 450 [facility] Comment on above: Performed By: #### C BCDF #### [address] [address] RBC 4.77 x10E12/L Normal 4.50 - 5.90 [facility] Comment on above: Performed By: #### C BCDF #### [address] [address] WBC (Bld) [#/Vol] 8.3 10*3/uL Normal 4.4 - 11.3 [facility] Comment on above: Performed By: #### C BCDF #### [address] [address] COMPREHENSIVE PANELon 2022 Albumin [Mass/Vol] 3.9 g/dL Normal 3.4 - 5.0 [facility] Comment on above: Performed By: #### C MP #### [address] [address] ALP [Catalytic activity/Vol] 83 U/L Normal 33 - 120 [facility] Comment on above: Performed By: #### C MP #### [address] [address] ALT [Catalytic activity/Vol] 39 U/L Normal 10 - 52 [facility] Comment on above: Result Comment: Nini ents treated with Sulfasalazine may generate falsely decreased results for ALT. Performed By: #### C MP #### [address] [address] Anion gap [Moles/Vol] 9 mmol/L Low 10 - 20 [facility] Comment on above: Performed By: #### C MP #### [address] [address] AST [Catalytic activity/Vol] 18 U/L Normal 9 - 39 [facility] Comment on above: Performed By: #### C MP #### [address] [address] Bilirubin [Mass/Vol] 0.5 mg/dL Normal 0.0 - 1.2 [facility] Comment on above: Performed By: #### C MP #### [address] [address] Calcium [Mass/Vol] 9.4 mg/dL Normal 8.6 - 10.3 [facility] Comment on above: Performed By: #### C MP #### [address] [address] Chloride [Moles/Vol] 103 mmol/L Normal 98 - 107 [facility] Comment on above: Performed By: #### C MP #### [address] [address] Creatinine [Mass/Vol] 0.91 mg/dL Normal 0.50 - 1.30 [facility] Comment on above: Performed By: #### C MP #### [address] [address] eGFR MALE >90 Normal >90 [facility] Comment on above: Result Comment: CALC ULATIONS OF ESTIMATED GFR ARE PERFORMED USING THE 2020 CKD-EPI STUDY REFIT EQUATION WITHOUT THE RACE VARIABLE FOR THE IDMS-TRACEABLE CREATININE METHODS. https://jasn.asnjournals.org/content//ASN.2020 735474 Performed By: #### C MP #### [address] [address] Glucose [Mass/Vol] 162 mg/dL High 74 - 99 [facility] Comment on above: Performed By: #### C MP #### [address] [address] HCO3 (Bld) [Moles/Vol] 30 mmol/L Normal 21 - 32 [facility] Comment on above: Performed By: #### C MP #### [address] [address] Potassium [Moles/Vol] 3.9 mmol/L Normal 3.5 - 5.3 [facility] Comment on above: Performed By: #### C MP #### [address] [address] Protein [Mass/Vol] 6.9 g/dL Normal 6.4 - 8.2 [facility] Comment on above: Performed By: #### C MP #### [address] [address] Sodium [Moles/Vol] 138 mmol/L Normal 136 - 145 [facility] Comment on above: Performed By: #### C MP #### [address] [address] Urea nitrogen [Mass/Vol] 17 mg/dL Normal 6 - 23 [facility] Comment on above: Performed By: #### C #### [id number] [place] [address] CTA CHEST, ABDOMEN, PELVISon 10-07-2022 CTA CHEST, ABDOMEN, PELVIS Patient Name: NICK LOPES STUDY: CTA CHEST, ABDOMEN ; 10/07/2022 7:02 am INDICATION: epigastric pain with syncope. 51-year-old man with epigastric pain and syncope. COMPARISON: CT chest dated 01/23/2020 CT AP dated 03/29/2014 ACCESSION NUMBER(S): [id number] ORDERING CLINICIAN: BEAU DUMONT TECHNIQUE: Axial non-contrast images of the chest abdomen, and pelvis. Axial CT images of the chest, abdomen and pelvis were obtained after the intravenous administration of 90 mL Omnipaque 350 using angiographic technique with coronal and sagittal reformatted images. MIP images and 3D reconstructions were created on an independent workstation and reviewed. FINDINGS: VASCULATURE: Images of the aorta demonstrate minimal atherosclerotic change without significant focal stenosis or aneurysm. No evidence of dissection. Celiac artery demonstrates no significant focal stenosis. Superior mesenteric artery demonstrates no significant focal stenosis. Inferior mesenteric artery demonstrates no significant focal stenosis. There is a single right renal artery. Right renal artery demonstrates no significant focal stenosis. There is a single renal vein which is patent. There is a single left renal artery. Left renal artery demonstrates no significant focal stenosis. There is a single renal vein which is patent. Right common iliac artery is widely patent with no significant stenosis. Right external iliac artery is widely patent with no significant stenosis. Right internal iliac artery is widely patent with no significant stenosis. Right common femoral artery is widely patent with no significant stenosis. Right proximal profunda femoris artery is widely patent with no significant stenosis. Right proximal superficial femoral artery is widely patent with no significant stenosis. Left common iliac artery is widely patent with no significant stenosis. Left external iliac artery is widely patent with no significant stenosis. Left internal iliac artery is widely patent with no significant stenosis. Left common femoral artery is widely patent with no significant stenosis. Left proximal profunda femoris artery is widely patent with no significant stenosis. Left proximal superficial femoral artery is widely patent with no significant stenosis. CT CHEST: MEDIASTINUM AND LYMPH NODES: No enlarged intrathoracic or axillary lymph nodes. No pneumomediastinum. HEART: Normal size. Moderate coronary artery calcifications. No significant pericardial effusion. LUNG, PLEURA, LARGE AIRWAYS: No consolidation, pulmonary edema, pleural effusion or pneumothorax. No suspicious pulmonary nodules. OSSEOUS STRUCTURES: No acute osseous abnormality. CHEST WALL SOFT TISSUES: There is asymmetric gynecomastia of the left breast, similar to the prior examination dated 01/23/2020. The thyroid gland is atrophic, unchanged. CT ABDOMEN/PELVIS: ABDOMINAL WALL: There is a small fat containing umbilical hernia. LIVER: The liver is enlarged measuring 22.1 cm in craniocaudal dimension. There is diffuse hypoattenuation of the liver suggestive of steatosis. There are no focal lesions. BILE DUCTS: No significant intrahepatic or extrahepatic dilatation. GALLBLADDER: No significant abnormality. PANCREAS: No significant abnormality. SPLEEN: No significant abnormality. Accessory splenule is noted. ADRENALS: No significant abnormality. KIDNEYS, URETERS, BLADDER: Kidneys are similar in size and enhancement. No hydroureteronephrosis or nephroureterolithiasis. The urinary bladder is within normal limits for degree of distension. REPRODUCTIVE ORGANS: Prostate is not enlarged. There are dystrophic calcifications, unchanged since prior examination dated 03/29/2014. RETROPERITONEUM/LYMPH NODES: There are bilateral external iliac lymph nodes measuring up to 1.2 cm on the left (series 05/12/2048) which appear similar to the prior examination dated 03/29/2014 and likely reactive in nature. BOWEL/MESENTERY/PERITON EUM: No inflammatory bowel wall thickening or dilatation. Normal appendix. No significant ascites, free air, or fluid collection. OSSEOUS STRUCTURES: No acute osseous abnormality. Multilevel degenerative changes of thoracolumbar spine are noted. IMPRESSION: 1. No thoracic or abdominal aortic aneurysm or acute aortic pathology. 2. Hepatomegaly and steatosis, correlate with liver function tests. 3. Additional stable chronic findings as above. I personally reviewed the image(s) / study with Rina Kwan MD (rotary driller prospecting) and I agree with the findings as stated. This study was interpreted at [facility] ([facility] [place], [place]. Electronically signed by: FIONA PORTILLO MD Normal [facility] LIPASEon 10-07-2022 Lipase [Catalytic activity/Vol] 34 U/L Normal 9 - 82 [facility] Comment on above: Result Comment: Arabella puncture immediately after or during the administration of Metamizole may lead to falsely low results. Testing should be performed immediately prior to Metamizole dosing. P-ovdyyu-v-benzoquinone imine (metabolite of Acetaminophen) will generate erroneously low results in samples for patients that have taken toxic doses of acetaminophen. Performed By: #### L IPAS #### [address] [address] PT/INRon 10-07-2022 PT Coag (PPP) [Time] 11.7 s Normal 9.8 - 13.4 [facility] Comment on above: Performed By: #### P TINR #### [address] [address] PT, INR 1.0 Normal 0.9 - 1.1 [facility] Comment on above: Performed By: #### P TINR #### [address] [address] Provider Note - ED v3on 09-09 Provider Note - ED v3 Provider Note: Chart Review: ED NOTES ED NOTES: Limitations to History: None HPI: 51-year-old male presents with concern for epigastric and chest pain. States it began this morning upon awakening approximately hour ago. States he stood up and felt dizzy and then had a syncopal episode. This was witnessed by his and kids. States that the pain in his epigastrium is improved however is still rating 1 out of 10. Describes it as aching. Denies any nausea, vomiting, shortness of breath, urinary symptoms. Denies any head injury. Patient has remained stable while here in the department. I did go over all the findings with the patient. Patient does not want to be admitted. Indicated to the patient needs to follow-up with his family medical doctor for cardiology referral. states his father had cardiac problems at a young age. I indicated to him that cardiac enzymes here were negative. Patient never had any chest pain. Patient is stable upon discharge. Have instructed him to call his family doctor for follow-up appointment. If patient has any reoccurrence return to ED. Physical Exam: VS: As documented in the triage note and EMR flowsheet from this visit were reviewed. Appearance: Alert. cooperative, in no acute distress. Skin: Intact, dry skin, no lesions, rash, petechiae or purpura. Eyes: PERRLA, EOMs intact, Conjunctiva pink with no redness or exudates. HENT: Normocephalic, atraumatic. Nares patent. No intraoral lesions. Neck: Supple, without meningismus. Trachea at midline. No lymphadenopathy. Pulmonary: Clear bilaterally with good chest wall excursion. No rales, rhonchi or wheezing. No accessory muscle use or stridor. Cardiac: Regular rate and rhythm, no rubs, murmurs, or gallops. Abdomen: Abdomen is soft, nontender, and nondistended. No palpable organomegaly. No rebound or guarding. No CVA tenderness. Nonsurgical abdomen Genitourinary: Exam deferred. Musculoskeletal: Full range of motion. Pulses full and equal. No cyanosis, clubbing, or edema. Neurological: Cranial nerves are grossly intact, grossly normal sensation, no weakness, no focal findings identified. Psychiatric: Appropriate mood and affect. HISTORY OF PRESENTING ILLNESS NICK is a 51 year old Male and was seen by me at 07-Oct-2022 06:01 for a chief complaint of syncope (pt presents to ER via EMS for a syncopal episode. Pt states that he was getting up for work around 0500 and started to feel dizzy and light headed. Pt states that he remember telling his family that he was light headed, but doesn't remember passing out. EMS reports that family helped him to the ground and that he did not hit his head. Pt reported chest pressure to EMS at a 4. EMS gave 324 mg Aspirin @ 0444. Pt states that the pain is now a 1 in the epigastric region. Denies blood thinners.)(1). The historian is the patientspouse. Triage Information: Most recent Vital Sign Value Date Temp (F): 97.7 10-07-2022 06:04 Temp (C): 36.5 10-07-2022 06:04 Heart Rate (beats/min): 70 10-07-2022 06:04 Respirations (breaths/min): 16 10-07-2022 06:04 SpO2 (%): 97 10-07-2022 06:04 BP Systolic (mm Hg): 130 10-07-2022 06:04 BP Diastolic (mm Hg): 77 10-07-2022 06:04 PAST MEDICAL HISTORY ALLERGIES/INTOLERANCES: No Known Allergies HEALTH HISTORY: No documented data. OUTPATIENT MEDICATIONS: Home Medications Review Status for Reconciliation: Complete Med Status: Patient Currently Takes Medications Drug Name: levothyroxine 125 mcg (0.125 mg) oral tablet Instructions: 1 tab(s) orally once a day Drug Name: Metoprolol Succinate ER 50 mg oral tablet, extended release Instructions: 1 tab(s) orally once a day Drug Name: amLODIPine 10 mg oral tablet Instructions: 1 tab(s) orally once a day Drug Name: atorvastatin 20 mg oral tablet Instructions: 1 tab(s) orally once a day Drug Name: PARoxetine 30 mg oral tablet Instructions: 1 tab(s) orally once a day Drug Name: ibuprofen 200 mg oral tablet Instructions: 4 tab(s) orally every 6 hours, As Needed - for pain SIGNIFICANT EVENTS: Past Medical History Description:Hypertensio n (HTN) REVIEW OF SYSTEMS CONSTITUTIONAL: POSITIVE for: malaise NEUROLOGICAL: POSITIVE for: loss of consciousness; All other systems reviewed and are negative PHYSICAL EXAM CONSTITUTIONAL: Morbidly obese pleasant 51-year-old male who is, awake, alert, oriented to person, place, time/situation and in no apparent distress. HENMT: Airway patent, ears with clear tympanic membranes bilaterally. Nasal mucosa clear. Mouth with normal mucosa. Throat has no vesicles, no oropharyngeal exudates and uvula is midline. Face with no lymph node enlargement. EYES: Clear bilaterally, pupils equal, round and reactive to light. CARDIOVASCULAR: (more content not included)... Normal [facility] Risk Screen - Adult Emergenc yon 10-07-2022 Risk Screen - Adult Emergency Preferred Language: Preferred Language: Preferred Language for Discussing Health Care (patient/designee)Nicolas candelario Patient Preferred Pharmacy: Patient Preferred Pharmacy Statement: I have reviewed and updated the patient's preferred pharmacy selection for today's visit. Advanced Directives: Advance Directive/DNRno Family Violence Adult: Abuse Screen: Are you or have you been threatened or abused physically, emotionally, or sexually by anyoneno Learning Assessment (Patient): Learning Assessment (Patient): Patient is Able to be Assessed for Learningyes Factors Influencing Readiness to Learnpain Factors that Impact Ability to Learnnone Devices/Methods Used to Communicatenone Learning Preferenceswritten material Cultural Considerationsnone Developmental Considerationsnone Religion Considerationsnone Other Learnersnone Learning Assessment (Other Learner): Learning Assessment (Other Learner): Other learner availableno Pressure Injury/TB/Substance: Pressure Injury: Pressure Injury Present on Admissionno Do you have a coughno Smoking Statusmoderate user (uses 11-30 cig/day, OR 0.5-1.5 ppd, OR 2-3 cans/pouches loose leaf tobacco per week, OR 0.5-1.5 vape pods per day) Tobacco Cessation Education (provide if tobacco use within the last 12 mos) patient declined Alcohol Usedenies Drug Usedenies Drug 2 Usedenies Admission Risk Screen: Significant IndicatorsComplete CAGE: CAGE: Is this an injured patient at a Trauma Center ([facility]/[place]/[facility]/[place]): no Electronic Signatures: Larisa Carlisle (SUPV) (Signed 07-Oct-2022 06:43) Authored: Preferred Language, Patient Preferred Pharmacy, Advanced Directives, Family Violence Adult, Learning Assessment (Patient), Learning Assessment (Other Learner), Pressure Injury/TB/Substance, Pressure Injury, CAGE Last Updated: 07-Oct-2022 06:43 by Larisa Carlisle (SUPV) [facility] TROPONIN I, HIGH SENSITIVITY on 10-07-2022 TROPONIN I, HIGH SENSITIVITY Canceled [facility] Comment on above: Order Comment: TEST TROPONIN I, HIGH SENSITIVITY WAS CANCELLED, 10/07/2022 09:29 Pt DCd. Result Comment: . Less than 99th percentile of normal range cutoff- Female and children under 18 years old <14 ng/L; Male <21 ng/L: Negative Repeat testing should be performed if clinically indicated. . Female and children under 18 years old 14-50 ng/L; Male 21-50 ng/L: Consistent with possible cardiac damage and possible increased clinical risk. Serial measurements may help to assess extent of myocardial damage. . >50 ng/L: Consistent with cardiac damage, increased clinical risk and myocardial infarction. Serial measurements may help assess extent of myocardial damage. . NOTE: Children less than 1 year old may have higher baseline troponin levels and results should be interpreted in conjunction with the overall clinical context. . NOTE: Troponin I testing is performed using a different testing methodology at [facility] than at other [facility]. Direct result comparisons should only be made within the same method. Performed By: #### [facility] #### [place] [id number] TROPONIN I, HIGH SENSITIVITY 3 ng/L Normal 0 - 20 [facility] Comment on above: Result Comment: . Less than 99th percentile of normal range cutoff- Female and children under 18 years old <14 ng/L; Male <21 ng/L: Negative Repeat testing should be performed if clinically indicated. . Female and children under 18 years old 14-50 ng/L; Male 21-50 ng/L: Consistent with possible cardiac damage and possible increased clinical risk. Serial measurements may help to assess extent of myocardial damage. . >50 ng/L: Consistent with cardiac damage, increased clinical risk and myocardial infarction. Serial measurements may help assess extent of myocardial damage. . NOTE: Children less than 1 year old may have higher baseline troponin levels and results should be interpreted in conjunction with the overall clinical context. . NOTE: Troponin I testing is performed using a different testing methodology at [facility] than at other [facility]. Direct result comparisons should only be made within the same method. Performed By: #### [facility] #### [address] [address] TROPONIN I, HIGH SENSITIVITY 3 ng/L Normal 0 - 20 [facility] Comment on above: Result Comment: . Less than 99th percentile of normal range cutoff- Female and children under 18 years old <14 ng/L; Male <21 ng/L: Negative Repeat testing should be performed if clinically indicated. . Female and children under 18 years old 14-50 ng/L; Male 21-50 ng/L: Consistent with possible cardiac damage and possible increased clinical risk. Serial measurements may help to assess extent of myocardial damage. . >50 ng/L: Consistent with cardiac damage, increased clinical risk and myocardial infarction. Serial measurements may help assess extent of myocardial damage. . NOTE: Children less than 1 year old may have higher baseline troponin levels and results should be interpreted in conjunction with the overall clinical context. . NOTE: Troponin I testing is performed using a different testing methodology at [facility] than at other [facility]. Direct result comparisons should only be made within the same method. Performed By: #### [facility] #### [facility] [address] [place] [address] Therapy Communicationon Therapy Communication Message NICK LOPES was (D/C)- last seen: 04/14/22. Pt attended 4/10 visits of POC. Pt had 4 no shows and did not answer any phone calls to discuss. Signatures Electronically signed by : KRIS Kang/Dolores; May 15 2022 8:54AM EST (Author) Normal 3sun XR WRIST LEFT 3+ VIEWS (ARIADNE CRAIG)on 04-08-2022 XR WRIST LEFT 3+ VIEWS (STANDARD) EXAMINATION: XR WRIST LEFT 3+ VIEWS (STANDARD) 04/08/2022 11:26 am HISTORY: ORDERING SYSTEM PROVIDED HISTORY: Injury, TECHNOLOGIST PROVIDED HISTORY: Injury/Trauma Reason for exam: f/u L wrist injury Cancer History: no Surgery, RadiationHistory: no Encounter Type: Subsequent/Follow-up Mechanism of injury: work injury ORDERING SYSTEM PROVIDED DIAGNOSIS CODES: T14.90XA Injury COMPARISON: Left wrist radiograph cystitis FINDINGS: Unchanged mildly displaced tiny avulsion fracture of the ulnar styloid. No acute fracture or dislocation identified. Intact joint space. Unremarkable soft tissues. IMPRESSION: Stable tiny avulsion fracture of the ulnar styloid Workstation ID: [id number] Dictated by: BERNADETTE DISLA on ThuApr 10, 2022 8:48:06 AM EDT Transcribed by: BERNADETTE DISLA on ThuApr 10, 2022 8:48:06 AM EDT Finalized by: BERNADETTE DISLA on ThuApr 10, 2022 8:48:06 AM EDT [facility] Comment on above: Order Comment: WH Injury/Trauma or Illness?:Injury/Trauma How long have you had these symptoms (acute/chronic)?:Acute Reason for exam?:f/u L wrist injury History of cancer?:no Surgeries, chemotherapy, or radiation?:no Type of Exam?:Subsequent/Follow-up Mechanism of injury?:work injury XR WRIST LEFT 3+ VIEWS (ARIADNE CRAIG)on 02-13-2022 XR WRIST LEFT 3+ VIEWS (STANDARD) EXAMINATION: XR WRIST LEFT 3+ VIEWS (STANDARD) HISTORY: Injury COMPARISON: 01/30/2022 TECHNIQUE: 3 left wrist views are submitted. FINDINGS: There is a tiny osseous structure adjacent to the ulnar styloid which may represent previously noted avulsion fracture. No other definitive acute osseous injuries are present elsewhere. There are no other healing fractures. Joint spaces are well maintained. Soft tissues are unremarkable. IMPRESSION: Similar tiny avulsion fracture of the ulnar styloid. Workstation ID: [id number] Dictated by: MARILU LOWERY on ThuFeb 14, 2022 4:33:41 PM EDT Transcribed by: MARILU LOWERY on ThuFeb 14, 2022 4:33:41 PM EDT Finalized by: MARILU LOWERY on ThuFeb 14, 2022 4:33:41 PM EDT Normal [facility] Comment on above: Order Comment: WH Injury/Trauma or Illness?:Injury/Trauma How long have you had these symptoms (acute/chronic)?:Acute Reason for exam?:L wrist pain History of cancer?:no Surgeries, chemotherapy, or radiation?:no Type of Exam?:Subsequent/Follow-up Mechanism of injury?:f/u work injury XR ELBOW LEFT 3+ VIEWS (ARIADNE CRAIG)on 02-06-2022 XR ELBOW LEFT 3+ VIEWS (STANDARD) EXAMINATION: XR HUMERUS LEFT 2+ VIEWS (STANDARD); XR ELBOW LEFT 3+ VIEWS (STANDARD) 02/06/2022 12:17 pm HISTORY: ORDERING SYSTEM PROVIDED HISTORY: injury, TECHNOLOGIST PROVIDED HISTORY: Injury/Trauma Reason for exam: pain Cancer History: no Surgery, RadiationHistory: no Encounter Type: Initial Mechanism of injury: work ORDERING SYSTEM PROVIDED DIAGNOSIS CODES: T14.90XA Injury COMPARISON: None FINDINGS: No acute fracture or dislocation identified. Mild osteoarthritis of the acromioclavicular joint. There is posterior soft tissue swelling at the level of the elbow/proximal forearm. IMPRESSION: Negative radiographic evaluation for fracture. Workstation ID: [id number] Dictated by: FRENCH SANDERS on [place]iza Feb 06, 2022 3:21:49 PM EDT Transcribed by: FRENCH SANDERS on [facility] Feb 06, 2022 3:21:49 PM EDT Finalized by: FRENCH SANDERS on [facility] Feb 06, 2022 3:21:49 PM EDT [facility] Comment on above: Order Comment: WH le ft Injury/Trauma or Illness?:Injury/Trauma How long have you had these symptoms (acute/chronic)?:Acute Reason for exam?:pain History of cancer?:no Surgeries, chemotherapy, or radiation?:no Type of Exam?:Initial Mechanism of injury?:work XR HUMERUS LEFT 2+ VIEWS ([facility])on 02-06-2022 XR HUMERUS LEFT 2+ VIEWS (STANDARD) EXAMINATION: XR HUMERUS LEFT 2+ VIEWS (STANDARD); XR ELBOW LEFT 3+ VIEWS (STANDARD) 02/06/2022 12:17 pm HISTORY: ORDERING SYSTEM PROVIDED HISTORY: injury, TECHNOLOGIST PROVIDED HISTORY: Injury/Trauma Reason for exam: pain Cancer History: no Surgery, RadiationHistory: no Encounter Type: Initial Mechanism of injury: work ORDERING SYSTEM PROVIDED DIAGNOSIS CODES: T14.90XA Injury COMPARISON: None FINDINGS: No acute fracture or dislocation identified. Mild osteoarthritis of the acromioclavicular joint. There is posterior soft tissue swelling at the level of the elbow/proximal forearm. IMPRESSION: Negative radiographic evaluation for fracture. Workstation ID: [id number] Dictated by: FRENCH SANDERS on [place] Feb 06, 2022 3:21:49 PM EDT Transcribed by: FRENCH SANDERS on [facility] Feb 06, 2022 3:21:49 PM EDT Finalized by: FRENCH SANDERS on [facility] Feb 06, 2022 3:21:49 PM EDT [facility] Comment on above: Order Comment: WH Injury/Trauma or Illness?:Injury/Trauma How long have you had these symptoms (acute/chronic)?:Acute Reason for exam?:pain History of cancer?:no Surgeries, chemotherapy, or radiation?:no Type of Exam?:Initial Mechanism of injury?:work XR WRIST LEFT 3+ VIEWS (ARIADNE CRAIG)on 01-30-2022 XR WRIST LEFT 3+ VIEWS (STANDARD) EXAMINATION: XR WRIST LEFT 3+ VIEWS (STANDARD) 01/30/2022 2:35 pm HISTORY: ORDERING SYSTEM PROVIDED HISTORY: injury, TECHNOLOGIST PROVIDED HISTORY: Injury/Trauma Reason for exam: pain Cancer History: no Surgery, RadiationHistory: no Encounter Type: Initial Mechanism of injury: work related ORDERING SYSTEM PROVIDED DIAGNOSIS CODES: T14.90XA Injury COMPARISON: None FINDINGS: The carpometacarpal alignment is preserved. There is [id number] 1st CMC joint osteoarthritis. Tiny ossific density is seen along the ulnar styloid tip, suggestive of an avulsion injury. There is mild elevation of the pronator quadratus fat pad. IMPRESSION: Tiny avulsion injury of the ulnar styloid tip. / Workstation ID: [id number] Dictated by: GHADA CLAY on ThuFebruary 03, 2022 9:19:32 AM EDT Transcribed by: ANUSHKA SALES on ThuFebruary 03, 2022 9:54:31 AM EDT Finalized by: GHADA CLAY on ThuFebruary 03, 2022 3:10:11 PM EDT [facility] Comment on above: Order Comment: [facility] Injury/Trauma or Illness?:Injury/Trauma How long have you had these symptoms (acute/chronic)?:Acute Reason for exam?:pain History of cancer?:no Surgeries, chemotherapy, or radiation?:no Type of Exam?:Initial Mechanism of injury?:work related XR Shoulder - left 3 Viewson 12-03-2021 IMPRESSION: No radiographic evidence of acute osseous abnormality Professional Bass Fisher: MICHOACANO Transcribe Date/Time: Dec 03 2021 2:21P Dictated by : ROBBIN MARAVILLA MD This examination was interpreted and the report reviewed and electronically signed by: ROBBIN MARAVILLA MD on Dec 03 2021 2:21PM [facility] DIVISION OF RADIOLOGY * * *Final Report* * * DATE OF EXAM: Dec 03 2021 10:10AM WOX 5252 - XR SHLDR >/=3V AP/KAREL AP/OTHR LT / PROCEDURE REASON: multiple diagnoses * * * * Physician Interpretation * * * * CLINICAL INDICATION: Shoulder pain TECHNIQUE: 3 view radiographic study of the left shoulder COMPARISON: None FINDINGS: No acute fracture or dislocation. Acromioclavicular joint intact. DIVISION OF RADIOLOGY [facility] * * *Final Report* * * DATE OF EXAM: Dec 03 2021 10:10AM WOX 5252 - XR SHLDR >/=3V AP/KAREL AP/OTHR LT / PROCEDURE REASON: multiple diagnoses * * * * Physician Interpretation * * * * CLINICAL INDICATION: Shoulder pain TECHNIQUE: 3 view radiographic study of the left shoulder COMPARISON: None FINDINGS: No acute fracture or dislocation. Acromioclavicular joint intact. IMPRESSION IMPRESSION: No radiographic evidence of acute osseous abnormality Professional Bass Fisher[facility] Transcribe Date/Time: Dec 03 2021 2:21P Dictated by : ROBBIN MARAVILLA MD This examination was interpreted and the report reviewed and electronically signed by: ROBBIN MARAVILLA MD on Dec 03 2021 2:21PM [facility] Radiology Study observation (narrative) [facility] XR Shoulder - left 3 ViewsOr dered By: Cc Provider on 12-03-2021 [facility] XR Chest PA and Lateralon IMPRESSION: No acute radiographic abnormality. Professional Bass Fisher: Umbel Transcribe Date/Time: Oct 16 2020 11:39A Dictated by : ESPERANZA HERCULES MD This examination was interpreted and the report reviewed and electronically signed by: ESPERANZA HERCULES MD on Oct 16 2020 11:41AM [facility] DIVISION OF RADIOLOGY * * *Final Report* * * DATE OF EXAM: Oct 16 2020 11:38AM WOX 5291 - XR CHEST 2V FRONTAL/LAT / PROCEDURE REASON: Suspected COVID-19 virus infection * * * * Physician Interpretation * * * * EXAMINATION: CHEST RADIOGRAPH (2 VIEW FRONTAL & LATERAL) CLINICAL HISTORY: Suspected COVID-19 virus infection MQ: XC2_6 EXAM DATE/TIME: 10/16/2020 11:38 AM COMPARISON: Chest x-ray on 12/11/2016 RESULT: Lines, tubes, and devices: None. Lungs and pleura: No consolidation. A linear opacity overlying the posterior heart on lateral view likely representing scarring. No lung mass. No pleural effusion. No pneumothorax. Cardiomediastinal silhouette: Stable cardiomediastinal silhouette. Bones and soft tissues: Unremarkable. DIVISION OF RADIOLOGY Provider, [facility] - 10/16/2020 * * *Final Report* * * DATE OF EXAM: Oct 16 2020 11:38AM WOX 5291 - XR CHEST 2V FRONTAL/LAT / PROCEDURE REASON: Suspected COVID-19 virus infection * * * * Physician Interpretation * * * * EXAMINATION: CHEST RADIOGRAPH (2 VIEW FRONTAL & LATERAL) CLINICAL HISTORY: Suspected COVID-19 virus infection MQ: XC2_6 EXAM DATE/TIME: 10/16/2020 11:38 AM COMPARISON: Chest x-ray on 12/11/2016 RESULT: Lines, tubes, and devices: None. Lungs and pleura: No consolidation. A linear opacity overlying the posterior heart on lateral view likely representing scarring. No lung mass. No pleural effusion. No pneumothorax. Cardiomediastinal silhouette: Stable cardiomediastinal silhouette. Bones and soft tissues: Unremarkable. IMPRESSION IMPRESSION: No acute radiographic abnormality. Professional Bass Fisher: [facility] Transcribe Date/Time: Oct 16 2020 11:39A Dictated by : ESPERANZA HERCULES MD This examination was interpreted and the report reviewed and electronically signed by: ESPERANZA HERCULES MD on Oct 16 2020 11:41AM EST [facility] Radiology Study observation (narrative) [facility] XR Chest PA and LateralOrder ed By: Ccf Provider on 10-16-2020 [facility] Operation-Procedureon 2017 Operation-Procedure [facility], [place] [address]MQDV [facility]IANNE [facility] [id number] 1970DATE 05/03/2018OPERATIVE REPORT / PROCEDURE NOTESURGEON MELODY CROWLEYEPLEVI TITLEOperative NoteDATE OF ISIHAOLUVEWDLS12/27/201 8.SURGEONMichaeLETI GuerraMASSISTANTNone.PREOPE RATIVE DIAGNOSISRight foot chronic plantar fasciitis.POSTOPERATIVE DIAGNOSISRight foot chronic plantar fasciitis.PROCEDURERigh t foot plantar fascia micro lengthening and micro debridement.ANESTHESIAL MA injectables, 8 mL 0.2% Naropin.ESTIMATED BLOOD LOSSNegligible.TOURNIQU ETEsmarch.IMPLANTABLESN one.PATHOLOGYNone.COMPL ICATIONSNone.INDICATION S FOR PROCEDUREPatient is a pleasant male, who has been dealing with plantar fasciitis forquite some time. He has tried and exhausted conservative measures at thispoint and wishes to proceed with surgical intervention. I did explain theabove-named procedure to the patient. All risks, benefits, complications andpostoperative protocol. Patient had all of his questions answered to hissatisfaction and signed the informed consent.PROCEDURE IN DETAILThe patient was seen in the preoperative area by both myself and generalanesthesia. The right leg was marked and final questions were answered. Noguarantees were given. The patient was escorted back to the operating room,placed on the table in supine position, underwent general anesthesia. Theright foot was scrubbed and prepped in the normal sterile fashion. Eight mLof 0.2% Naropin was injected in a local fashion around the heel. Next, usinga marking pen, felder were made on the plantar heel 0.5 cm apart in a grid likefashion. A 0.062 K-wire was then used to make small puncture holes throughthe bottom of the heel, followed by use of the [place] 1 for the microdebridement and the micro lengthening. The foot was flexed at 90 degrees withtoes back while doing this procedure. At this point, I was satisfied with thecase and Steri-Strips were placed over the small incision holes followed byAdaptic, 4x4s, and Kerlix. The Esmarch tourniquet was released. There was animmediate hyperemic response to the foot. Coban was used as the finaldressing, then he was placed into a pneumatic CAM walker.The patient tolerated the procedure and anesthesia quite well. He will benonweightbearing for the next week on this right lower extremity. He doeshave Vicodin for pain control and my cell phone number should he have anyproblems in the evening or over the weekend. Otherwise, he can [facility].CITLALY CROWLEY 05/03/2018 12:25 [id number] 05/03/2018 13:12 MGS/MODLElectronically Signed By Ellie Hernandez Dpm on 18 May 2018 16:53:28 [facility] CBC and Differentialon 04-23 Basophils Auto #/vol (Bld) 0.1 K/mcL Invalid Interpretation Code 0 - 0.2 [facility] Basophils/100 WBC Auto (Bld) 0.4 % Normal [facility] Comment on above: Performed By: #### C BCDIF ####Unless otherwise noted, all testing performed by [place] [phone]: [id number] Director: Addison Aceves M.D. Eosinophils Auto #/vol (Bld) 0.1 K/mcL Invalid Interpretation Code 0 - 0.5 [facility] Eosinophils/100 WBC Auto (Bld) 0.7 % Normal [facility] Comment on above: Performed By: #### C BCDIF ####Unless otherwise noted, all testing performed by [place] [phone]: [id number] Director: Addison Aceves M.D. Erythrocyte distribution width Auto Ratio (RBC) 14.9 % High 10-14.3 [facility] Comment on above: Performed By: #### C BCDIF ####Unless otherwise noted, all testing performed by [place] [id number]: [id number] Director: Addison Aceves M.D. Hematocrit Auto Volume Fraction (Bld) 46.8 % Normal 37.9-49.2 [facility] Comment on above: Performed By: #### C BCDIF ####Unless otherwise noted, all testing performed by [address] [phone]: [id number] Director: Addison Aceves M.D. Hemoglobin mass conc (Bld) 15.5 g/dL Normal 12.9-16.9 [facility] Comment on above: Performed By: #### C BCDIF ####Unless otherwise noted, all testing performed by [address] [phone]: [id number] Director: Addison Aceves M.D. Interpretation and review of laboratory results Abnormal Invalid Interpretation Code [facility] Lymphocytes Auto #/vol (Bld) 2.7 K/mcL Invalid Interpretation Code 0.9 - 3.6 [facility] Lymphocytes/100 WBC Auto (Bld) 20.4 % Normal [facility] Comment on above: Performed By: #### C BCDIF ####Unless otherwise noted, all testing performed by [address] [phone]: [id number] Director: Addison Aceves M.D. MCH Auto Entitic mass (RBC) 28.7 pg Normal 27.7-34.6 [facility] Comment on above: Performed By: #### C BCDIF ####Unless otherwise noted, all testing performed by [address] [phone]: [id number] Director: Addison Aceves M.D. MCHC Auto mass conc (RBC) 33.2 g/dL Normal 32.9-35.5 [facility] Comment on above: Performed By: #### C BCDIF ####Unless otherwise noted, all testing performed by [address] [phone]: [id number] Director: Addison Aceves M.D. MCV Auto Entitic volume (RBC) 86.6 fL Normal 82.8-99.3 [facility] Comment on above: Performed By: #### C BCDIF ####Unless otherwise noted, all testing performed by [address] [phone]: [id number] Director: Addison Aceves M.D. Monocytes Auto #/vol (Bld) 0.6 K/mcL Invalid Interpretation Code 0.2 - 0.6 [facility] Monocytes/100 WBC Auto (Bld) 4.8 % Normal [facility] Comment on above: Performed By: #### C BCDIF ####Unless otherwise noted, all testing performed by [address] [phone]: [id number] Director: Addison Aceves M.D. Neutrophils Auto #/vol (Bld) 9.9 K/mcL High 1.4 - 6.8 [facility] Platelet mean volume Auto Entitic volume (Bld) 8.4 fL Normal 6.6-10.8 [facility] Comment on above: Performed By: #### C BCDIF ####Unless otherwise noted, all testing performed by [address] [phone]: [id number] Director: Addison Aceves M.D. Platelets Auto #/vol (Bld) 212 K/mcL Invalid Interpretation Code 139 - 354 [facility] RBC Auto #/vol (Bld) 5.40 M/mcL Invalid Interpretation Code 4.0 - 5.5 [facility] Segmented Neut 73.7 % Invalid Interpretation Code [facility] WBC Auto #/vol (Bld) 13.4 K/mcL High 3.6 - 10.4 [facility] CBC with Diffon 04-23-2018 Basophils Auto #/vol (Bld) 0.1 K/mcL Normal 0-0.2 [facility] Comment on above: Performed By: #### C BCDIF ####Unless otherwise noted, all testing performed by [facility] [address] [phone]: [id number] Director: Addison Aceves M.D. Eosinophils Auto #/vol (Bld) 0.1 K/mcL Normal 0-0.5 [facility] Comment on above: Performed By: #### C BCDIF ####Unless otherwise noted, all testing performed by [address] [phone]: [id number] Director: Addison Aceves M.D. Lymphocytes Auto #/vol (Bld) 2.7 K/mcL Normal 0.9-3.6 [facility] Comment on above: Performed By: #### C BCDIF ####Unless otherwise noted, all testing performed by [place] [phone]: [id number] Director: Addison Aceves M.D. Monocytes Auto #/vol (Bld) 0.6 K/mcL Normal 0.2-0.6 [facility] Comment on above: Performed By: #### C BCDIF ####Unless otherwise noted, all testing performed by [place] [phone]: [id number] Director: Addison Aceves M.D. Neutrophils Auto #/vol (Bld) 9.9 K/mcL High 1.4-6.8 [facility] Comment on above: Performed By: #### C BCDIF ####Unless otherwise noted, all testing performed by [address] [phone]: [id number] Director: Addison Aceves M.D. Platelets Auto #/vol (Bld) 212 K/mcL Normal 139-354 [facility] Comment on above: Performed By: #### C BCDIF ####Unless otherwise noted, all testing performed by [address]CLIA: [id number] Director: Addison Aceves M.D. RBC Auto #/vol (Bld) 5.40 M/mcL Normal 4.0-5.5 [facility] Comment on above: Performed By: #### C BCDIF ####Unless otherwise noted, all testing performed by [address] [phone]: [id number] Director: Addison Aceves M.D. Segmented Neut % 73.7 % Normal [facility] Comment on above: Performed By: #### C BCDIF ####Unless otherwise noted, all testing performed by [address] [phone]: [id number] Director: Addison Aceves M.D. WBC Auto #/vol (Bld) 13.4 K/mcL High 3.6-10.4 [facility] Comment on above: Performed By: #### C BCDIF ####Unless otherwise noted, all testing performed by [address] [phone]: [id number] Director: Addison Aceves M.D. Urinalysison 04-23-2018 Bilirubin, Urine Negative Normal NEG;NEGATIV E [facility] Comment on above: Performed By: #### U A ####Unless otherwise noted, all testing performed by [address] [phone]: [id number] Director: Addison Aceves M.D. Blood, Urine Negative Normal NEG;NEGATIV E [facility] Comment on above: Performed By: #### U A ####Unless otherwise noted, all testing performed by [address] [phone]: [id number] Director: Addison Aceves M.D. Character Clear Normal [facility] Comment on above: Performed By: #### U A ####Unless otherwise noted, all testing performed by [address] [id number]: [id number] Director: Addison Aceves M.D. Color Nom (U) Straw Normal [facility] Comment on above: Performed By: #### U A ####Unless otherwise noted, all testing performed by [address] [id number]: [id number] Director: Addison Aceves M.D. Glucose Ql (U) Negative Normal NEG;NEGATIV E [facility] Comment on above: Performed By: #### U A ####Unless otherwise noted, all testing performed by [address] [id number]: [id number] Director: Addison Aceves M.D. Ketones Ql (U) Negative Invalid Interpretation Code NEG;NEGATIV E mg/dL [facility] Leukocyte esterase Test strip Ql (U) Negative Invalid Interpretation Code Negative [facility] Nitrite, Urine Negative Normal NEG;NEGATIV E [facility] Comment on above: Performed By: #### U A ####Unless otherwise noted, all testing performed by [address] [id number]: [id number] Director: Addison Aceves M.D. pH Test strip (U) 5.0 [pH] Normal 4.5-8.0 [facility] Comment on above: Performed By: #### U A ####Unless otherwise noted, all testing performed by [address] [id number]: [id number] Director: Addison Aceves M.D. Protein, Urine Negative Normal NEG;NEGATIV E [facility] Comment on above: Performed By: #### U A ####Unless otherwise noted, all testing performed by [address] [id number]: [id number] Director: Addison Aceves M.D. RBCs, Urine < 1 Invalid Interpretation Code 0 - 5 /HPF [facility] Specific [place] 1.008 1 Invalid Interpretation Code 1.003 - 1.029 [facility] Urobilinogen, Urine < 2.0 Normal <2 [facility] Comment on above: Performed By: #### U A ####Unless otherwise noted, all testing performed by [address] [id number]: [id number] Director: Addison Aceves M.D. WBCs, Urine 1 /HPF Invalid Interpretation Code 0 - 5 [facility] Urinalysis, Routineon 2017 Ketone,Urine Negative Normal NEG;NEGATIV E [facility] Comment on above: Performed By: #### U A ####Unless otherwise noted, all testing performed by [address] [id number]: [id number] Director: Addison Aceves M.D. Leuk.Esterase,Urine Negative Normal Negative [facility] Comment on above: Performed By: #### U A ####Unless otherwise noted, all testing performed by [address] [id number]: [id number] Director: Addison Aceves M.D. RBC LM.HPF #/area (Urine sed) /[HPF] Normal 0-5 [facility] Comment on above: Performed By: #### U A ####Unless otherwise noted, all testing performed by [address] [id number]: [id number] Director: Addison Aceves M.D. Specific [place],Urine 1.008 Normal 1.003-1.029 [facility] Comment on above: Performed By: #### U A ####Unless otherwise noted, all testing performed by [address] [id number]: [id number] Director: Addison Aceves M.D. WBC,Urine 1 /HPF Normal 0-5 [facility] Comment on above: Performed By: #### U A ####Unless otherwise noted, all testing performed by [address] [id number]: [id number] Director: Addison Aceves M.D. Vital Signs Date Time Vital Sign Value Performing Clinician Facility 05-26-2025 16:56-0400 Body temperature 98.71 [degF] Velia Atwoodta [employer] Work Phone: [facility] 05-26-2025 16:56-0400 Diastolic blood pressure 93 mm[Hg] Velia Atwoodta [employer]PER[employer] Work Phone: [facility] 05-26-2025 16:56-0400 Heart rate 77 /min Velia Atwoodta [employer] SUPER[employer] Work Phone: [facility] 05-26-2025 16:56-0400 Respiratory rate 18 /min Velia Atwoodta [employer] SUPER[employer]OR Work Phone: [facility] 05-26-2025 16:56-0400 SaO2% (BldA) [Mass fraction] 97 % Velia Atwoodta [employer] SUPER[employer] Work Phone: [facility] 05-26-2025 16:56-0400 Systolic blood pressure 145 mm[Hg] Velia Atwoodta [employer] SUPER[employer] Work Phone: [facility] 10-04-2024 15:58-0500 Body height 172.2 cm Ginger Lugo MD Work Phone: [facility] 10-04-2024 15:58-0500 Body mass index (BMI) [Ratio] 47.26 kg/m2 Ginger Lugo MD Work Phone: [facility] 10-04-2024 15:58-0500 Body weight 140.16 kg Ginger Lugo MD Work Phone: [facility] 10-04-2024 15:58-0500 Diastolic blood pressure 68 mm[Hg] Ginger Lugo MD Work Phone: [facility] 10-04-2024 15:58-0500 Heart rate 89 /min Ginger Lugo MD Work Phone: [facility] 10-04-2024 15:58-0500 SaO2% (BldA) [Mass fraction] 95 % Ginger Lugo MD Work Phone: [facility] 10-04-2024 15:58-0500 Systolic blood pressure 128 mm[Hg] Ginger Lugo MD Work Phone: [facility] 09-19-2024 14:13-0500 Body height 172.2 cm Jose Loo MD Work Phone: [facility] Comment on above: with shoes 09-19-2024 14:13-0500 Body mass index (BMI) [Ratio] 48.36 kg/m2 Jose Loo MD Work Phone: [facility] 09-19-2024 14:13-0500 Body weight 143.4 kg Jose Loo MD Work Phone: [facility] 09-15-2024 11:14-0500 Body mass index (BMI) [Ratio] 52.6 kg/m2 Nuha Suppan [employer]PER[employer] Work Phone: [facility] 09-15-2024 11:14-0500 Body temperature 97.11 [degF] Nuha Suppan [employer] SUPER[employer] Work Phone: [facility] 09-15-2024 11:14-0500 Body weight 145.6 kg Nuha Suppan [employer] SUPERVISOR Work Phone: [facility] 09-15-2024 11:14-0500 Diastolic blood pressure 80 mm[Hg] Nuha Suppan [employer] SUPERVISOR Work Phone: [facility] 09-15-2024 11:14-0500 Heart rate 98 /min Nuha Suppan [employer] SUPERVISOR Work Phone: [facility] 09-15-2024 11:14-0500 SaO2% (BldA) [Mass fraction] 97 % Nuha Suppan [employer] SUPERVISOR Work Phone: [facility] 09-15-2024 11:14-0500 Systolic blood pressure 130 mm[Hg] Nhua Suppan [employer] SUPERVISOR Work Phone: [facility] 08-09-2024 12:49-0500 Body height 166.4 cm Ginger Lugo MD Work Phone: [facility] 08-09-2024 12:49-0500 Body mass index (BMI) [Ratio] 50.87 kg/m2 Ginger Lugo MD Work Phone: [facility] 08-09-2024 12:49-0500 Body weight 140.8 kg Ginger Lugo MD Work Phone: [facility] 08-09-2024 12:49-0500 Diastolic blood pressure 88 mm[Hg] Ginger Lugo MD Work Phone: [facility] 08-09-2024 12:49-0500 Heart rate 75 /min Ginger Lugo MD Work Phone: [facility] 08-09-2024 12:49-0500 SaO2% (BldA) [Mass fraction] 96 % Ginger Lugo MD Work Phone: [facility] 08-09-2024 12:49-0500 Systolic blood pressure 134 mm[Hg] Ginger Lugo MD Work Phone: [facility] 05-04-2024 14:45-0400 Diastolic blood pressure 80 mm[Hg] Ginger Lugo MD Work Phone: [facility] 05-04-2024 14:45-0400 Systolic blood pressure 134 mm[Hg] Ginger Lugo MD Work Phone: [facility] 05-04-2024 14:11-0400 Body mass index (BMI) [Ratio] 48.18 kg/m2 Ginger Lugo MD Work Phone: [facility] 05-04-2024 14:11-0400 Body weight 133.36 kg Ginger Lugo MD Work Phone: [facility] 05-04-2024 14:11-0400 Heart rate 70 /min Ginger Lugo MD Work Phone: [facility] 05-04-2024 14:11-0400 SaO2% (BldA) [Mass fraction] 95 % Ginger Lugo MD Work Phone: [facility] 03-28-2024 18:41-0400 Diastolic blood pressure 80 mm[Hg] Ginger Lugo MD Work Phone: [facility] 03-28-2024 18:41-0400 Systolic blood pressure 136 mm[Hg] Ginger Lugo MD Work Phone: [facility] 03-28-2024 18:12-0400 Body mass index (BMI) [Ratio] 47.85 kg/m2 Ginger Lugo MD Work Phone: [facility] 03-28-2024 18:12-0400 Body weight 132.45 kg Ginger Lugo MD Work Phone: [facility] 03-28-2024 18:12-0400 Heart rate 69 /min Ginger Lugo MD Work Phone: [facility] 03-28-2024 18:12-0400 SaO2% (BldA) [Mass fraction] 96 % Ginger Lugo MD Work Phone: [facility] 10-30-2023 14:17-0500 Body height 166.4 cm Ginger Lugo MD Work Phone: [facility] 10-30-2023 14:17-0500 Body weight 133.72 kg Ginger Lugo MD Work Phone: [facility] 10-30-2023 14:17-0500 Diastolic blood pressure 84 mm[Hg] Ginger Lugo MD Work Phone: [facility] 10-30-2023 14:17-0500 Heart rate 76 /min Ginger Lugo MD Work Phone: [facility] 10-30-2023 14:17-0500 SaO2% (BldA) [Mass fraction] 96 % Ginger Lugo MD Work Phone: [facility] 10-30-2023 14:17-0500 Systolic blood pressure 128 mm[Hg] Ginger Lugo MD Work Phone: [facility] 10-29-2023 10:15-0500 Body height 172.7 cm Abilio Gong CNP Work Phone: [facility] 10-29-2023 10:15-0500 Body mass index (BMI) [Ratio] 44.4 kg/m2 Abilio Gong [employer] SUPERVISOR Work Phone: [facility] 10-29-2023 10:15-0500 Body weight 132.45 kg Abilio Gong [employer] SUPERVISOR Work Phone: [facility] 10-29-2023 10:15-0500 Diastolic blood pressure 72 mm[Hg] Abilio Sextonk [employer] SUPERVISOR Work Phone: [facility] 10-29-2023 10:15-0500 Heart rate 72 /min Abilio Sextonk [employer] SUPERVISOR Work Phone: [facility] 10-29-2023 10:15-0500 SaO2% (BldA) [Mass fraction] 94 % Abilio Gong [employer]AT[employer] SUPERVISOR Work Phone: [facility] 10-29-2023 10:15-0500 Systolic blood pressure 112 mm[Hg] Abilio Sextonk [employer]ATFORM SUPERVISOR Work Phone: [facility] 10-24-2023 11:21-0500 Body temperature 97.9 [degF] Ginger Lugo MD Work Phone: [facility] 10-24-2023 11:21-0500 Body weight 129.55 kg Ginger Lugo MD Work Phone: [facility] 10-24-2023 11:21-0500 Diastolic blood pressure 75 mm[Hg] Ginger Lugo MD Work Phone: [facility] 10-24-2023 11:21-0500 Heart rate 79 /min Ginger Lugo MD Work Phone: [facility] 10-24-2023 11:21-0500 Respiratory rate 20 /min Ginger Lugo MD Work Phone: [facility] 10-24-2023 11:21-0500 SaO2% (BldA) [Mass fraction] 96 % Ginger Lugo MD Work Phone: [facility] 10-24-2023 11:21-0500 Systolic blood pressure 118 mm[Hg] Ginger Lugo MD Work Phone: [facility] 10-16-2023 12:55-0500 Body temperature 98.1 [degF] Nuha Suppan [employer] Work Phone: [facility] 10-16-2023 12:55-0500 Body weight 132.45 kg Nuha Suppan [employer] Work Phone: [facility] 10-16-2023 12:55-0500 Diastolic blood pressure 78 mm[Hg] Nuha Suppan [employer] Work Phone: [facility] 10-16-2023 12:55-0500 Heart rate 72 /min Nuha Suppan [employer] Work Phone: [facility] 10-16-2023 12:55-0500 Respiratory rate 20 /min Nuha Suppan [employer] Work Phone: [facility] 10-16-2023 12:55-0500 SaO2% (BldA) [Mass fraction] 96 % Nuha Suppan [employer] Work Phone: [facility] 10-16-2023 12:55-0500 Systolic blood pressure 132 mm[Hg] Nuha Suppan [employer] Work Phone: [facility] 10-09-2023 15:30-0500 Diastolic blood pressure 96 mm[Hg] Dr. Ginger Lugo Work Phone: [facility] 10-09-2023 15:30-0500 Heart rate 60 /min Dr. Ginger Lugo Work Phone: [facility] 10-09-2023 15:30-0500 Respiratory rate 18 /min Dr. Ginger Lugo Work Phone: [facility] 10-09-2023 15:30-0500 SaO2% (BldA) [Mass fraction] 97 % Dr. Ginger Lugo Work Phone: [facility] 10-09-2023 15:30-0500 Systolic blood pressure 158 mm[Hg] Dr. Ginger Lugo Work Phone: [facility] 10-09-2023 14:36-0500 Body temperature 97.6 [degF] Dr. Ginger Lugo Work Phone: [facility] 10-09-2023 09:40-0500 Inhaled oxygen flow rate 2 L/min Dr. Ginger Lugo Work Phone: [facility] 10-07-2023 11:48-0500 Body height 172.[address] Ginger Lugo Work Phone: [facility] 10-07-2023 11:48-0500 Body mass index (BMI) [Ratio] 44.6 kg/m2 Dr. Ginger Lugo Work Phone: [facility] 10-07-2023 11:48-0500 Body weight 133.[address] Ginger Lugo Work Phone: [facility] 10-07-2023 11:12-0500 Diastolic blood pressure 83 mm[Hg] [facility] 10-07-2023 11:12-0500 Heart rate 64 /min [facility] 10-07-2023 11:12-0500 Respiratory rate 18 /min [facility] 10-07-2023 11:12-0500 SaO2% (BldA) [Mass fraction] 96 % [facility] 10-07-2023 11:12-0500 Systolic blood pressure 112 mm[Hg] [facility] 10-07-2023 08:44-0500 Body height 172.72 cm [facility] 10-07-2023 08:44-0500 Body mass index (BMI) [Ratio] 45.2 kg/m2 [facility] 10-07-2023 08:44-0500 Body temperature 97.2 [degF] [facility] 10-07-2023 08:44-0500 Body weight 134.9 kg [facility] 09-22-2023 22:00-0500 Diastolic blood pressure 79 mm[Hg] Ismael Durham DO Work Phone: [facility] 09-22-2023 22:00-0500 Heart rate 82 /min Ismael Durham DO Work Phone: [facility] 01-16-2024 22:00-0500 Respiratory rate 18 /min Ismael Durham DO Work Phone: [facility] 09-22-2023 22:00-0500 SaO2% (BldA) [Mass fraction] 95 % Ismael Durham DO Work Phone: [facility] 09-22-2023 22:00-0500 Systolic blood pressure 137 mm[Hg] Ismael Durham DO Work Phone: [facility] 09-22-2023 18:36-0500 Body temperature 37.0 Ismael Durham DO Work Phone: [facility] 09-22-2023 17:49-0500 Body temperature 97.7 [degF] Ismael Durham DO Work Phone: [facility] 09-22-2023 17:17-0500 Body height 172.7 cm Ismael Durham DO Work Phone: [facility] 09-22-2023 17:17-0500 Body mass index (BMI) [Ratio] 44.09 kg/m2 Ismael Durham DO Work Phone: [facility] 09-22-2023 17:17-0500 Body weight 131.54 kg Ismael Durham DO Work Phone: [facility] 04-22-2023 16:01-0400 Body mass index (BMI) [Ratio] 34.97 kg/m2 Ginger Lugo Work Phone: [facility]aaad[facility] Work Phone: 04-22-2023 16:01-0400 Body surface area Derived from formula 2.17 m2 Ginger Lugo Work Phone: MH-Jcjnhjp-Kwpilrc Work Phone: 04-22-2023 16:01-0400 Body weight 104.33 kg Gingre Lugo Work Phone: KF[facility]Xtcomzx-Aihzixs Work Phone: 04-22-2023 16:01-0400 Respiratory rate 16 /min Ginger Lugo Work Phone: JN-Miopzra-Fgkywva Work Phone: 04-16-2023 09:05-0400 Body height 172.72 cm Ginger Giorgio Kowalskio Work Phone: BL-Qhczksi-Rfrphgo d HC 232 DO Work Phone: 04-16-2023 09:05-0400 Body mass index (BMI) [Ratio] 36.34 kg/m2 Ginger Giorgio Kowalskio Work Phone: JP-Lbtnvkn-Jffzkoc d [facility] 232 DO Work Phone: 04-16-2023 09:05-0400 Body surface area Derived from formula 2.2 m2 Ginger Giorgio Kowalskio Work Phone: YS-Bkypfsq-Bdaqcnj d [facility] 232 DO Work Phone: 04-16-2023 09:05-0400 Body weight 108.41 kg Ginger Giorgio Kowalskio Work Phone: WV-Gwxxeqh-Jpvjads d [facility] 232 DO Work Phone: 04-16-2023 09:05-0400 Respiratory rate 16 /min Ginger Giorgio Pema Work Phone: TJ-Tybyxjg-Zhhlfic d HC 232 DO Work Phone: 03-30-2023 09:28-0400 Body weight 126.55 kg Ginger Lugo MD Work Phone: [facility] 03-30-2023 09:28-0400 Diastolic blood pressure 72 mm[Hg] Ginger Lugo MD Work Phone: [facility] 03-30-2023 09:28-0400 Heart rate 103 /min Ginger Lugo MD Work Phone: [facility] 03-30-2023 09:28-0400 SaO2% (BldA) [Mass fraction] 96 % Ginger Lugo MD Work Phone: [facility] 03-30-2023 09:28-0400 Systolic blood pressure 132 mm[Hg] Ginger Lugo MD Work Phone: [facility] 03-22-2023 11:39-0400 Diastolic blood pressure 85 mm[Hg] Dr. Ginger Lugo Work Phone: [facility] 03-22-2023 11:39-0400 Heart rate 67 /min Dr. Ginger Lugo Work Phone: 7(317)741-949675 [place] [address] 03-22-2023 11:39-0400 Systolic blood pressure 138 mm[Hg] Dr. Ginger Lugo Work Phone: 5(077)202-202068 [place] [address] 03-22-2023 10:15-0400 Body temperature 97.8 [degF] Dr. Ginger Lugo Work Phone: 1(499)034-704268 [place] [address] 03-22-2023 10:15-0400 Respiratory rate 18 /min Dr. Ginger Lugo Work Phone: 0(402)812-875775 [place] [address] 03-22-2023 10:15-0400 SaO2% (BldA) [Mass fraction] 98 % Dr. Ginger Lugo Work Phone: 7(880)708-973768 [place] [address] 03-22-2023 07:51-0400 Inhaled oxygen flow rate 2 L/min Dr. Ginger Lugo Work Phone: 3(545)768-788168 [place] [address] 03-22-2023 05:49-0400 Body mass index (BMI) [Ratio] 42.4 kg/m2 Dr. Ginger Lugo Work Phone: 5(460)823-189468 [place] [address] 03-22-2023 05:49-0400 Body weight 126.[address] Ginger Lugo Work Phone: 9(318)241-875568 [place] [address] 03-18-2023 14:34-0400 Body height 172.[address] Ginger Lugo Work Phone: 5(271)821-395668 [place] [address] 03-18-2023 00:36-0400 Body temperature 98.5 [degF] [facility] 03-18-2023 00:36-0400 Diastolic blood pressure 57 mm[Hg] [facility] 03-18-2023 00:36-0400 Heart rate 108 /min [facility] 03-18-2023 00:36-0400 Respiratory rate 17 /min [facility] 03-18-2023 00:36-0400 SaO2% (BldA) [Mass fraction] 96 % [facility] 03-18-2023 00:36-0400 Systolic blood pressure 130 mm[Hg] [facility] 03-18-2023 00:24-0400 Inhaled oxygen concentration 21 % Dr. Ginger Lugo Work Phone: [facility] 03-17-2023 19:23-0400 Body height 172.72 cm [facility] 03-17-2023 19:23-0400 Body mass index (BMI) [Ratio] 42.8 kg/m2 [facility] 03-17-2023 19:23-0400 Body weight 127.86 kg [facility] 03-05-2023 01:10-0400 Diastolic blood pressure 74 mm[Hg] [facility] 03-05-2023 01:10-0400 Heart rate 99 /min [facility] 03-05-2023 01:10-0400 Respiratory rate 20 /min [facility] 03-05-2023 01:10-0400 SaO2% (BldA) [Mass fraction] 95 % [facility] 03-05-2023 01:10-0400 Systolic blood pressure 122 mm[Hg] [facility] 03-04-2023 22:43-0400 Body temperature 99.1 [degF] [facility] 03-04-2023 21:54-0400 Body height 172.72 cm [facility] 03-04-2023 21:54-0400 Body mass index (BMI) [Ratio] 42.3 kg/m2 [facility] 03-04-2023 21:54-0400 Body weight 126.1 kg [facility] 01-31-2023 10:00-0400 Diastolic blood pressure 75 mm[Hg] [facility] 01-31-2023 10:00-0400 Heart rate 78 /min [facility] 01-31-2023 10:00-0400 Respiratory rate 16 /min [facility] 01-31-2023 10:00-0400 SaO2% (BldA) [Mass fraction] 98 % [facility] 01-31-2023 10:00-0400 Systolic blood pressure 141 mm[Hg] [facility] 01-31-2023 07:56-0400 Body mass index (BMI) [Ratio] 42.8 kg/m2 [facility] 01-31-2023 07:56-0400 Body temperature 97.2 [degF] [facility] 01-31-2023 07:56-0400 Body weight 127.91 kg [facility] 10-25-2022 10:16-0500 Diastolic blood pressure 84 mm[Hg] Dr. Ginger Lugo Work Phone: 8(196)616-004475 [place] [address] 10-25-2022 10:16-0500 Heart rate 64 /min Dr. Ginger Lguo Work Phone: 2(228)581-576575 [place] [address] 10-25-2022 10:16-0500 Systolic blood pressure 140 mm[Hg] Dr. Ginger Lugo Work Phone: 1(595)811-098968 [place] [address] 10-25-2022 10:03-0500 Body temperature 97.5 [degF] Dr. Ginger Lugo Work Phone: 0(599)076-993868 [place] [address] 10-25-2022 10:03-0500 Respiratory rate 16 /min Dr. Ginger Lugo Work Phone: 3(569)052-989868 [place] [address] 10-25-2022 10:03-0500 SaO2% (BldA) [Mass fraction] 97 % Dr. Ginger Lugo Work Phone: 0(057)773-530168 [place] [address] 10-24-2022 22:44-0500 Inhaled oxygen flow rate 3 L/min Dr. Ginger Lugo Work Phone: 0(101)326-385568 [place] [address] 10-24-2022 14:56-0500 Body height 172.[address] Ginger Lugo Work Phone: [facility] 10-24-2022 14:56-0500 Body mass index (BMI) [Ratio] 44.7 kg/m2 Dr. Ginger Lugo Work Phone: [facility] 10-24-2022 14:56-0500 Body weight 133.[address] Ginger Lugo Work Phone: [facility] 10-13-2022 08:57-0500 Body mass index (BMI) [Ratio] 44.7 kg/m2 Dr. Ginger Lugo Work Phone: [facility] 10-13-2022 08:57-0500 Body weight 133.[address] Ginger Lugo Work Phone: [facility] 10-13-2022 08:57-0500 Diastolic blood pressure 81 mm[Hg] Dr. Ginger Lugo Work Phone: [facility] 10-13-2022 08:57-0500 Heart rate 84 /min Dr. Ginger Lugo Work Phone: [facility] 10-13-2022 08:57-0500 Respiratory rate 16 /min Dr. Ginger Lugo Work Phone: [facility] 10-13-2022 08:57-0500 Systolic blood pressure 149 mm[Hg] Dr. Ginger Lugo Work Phone: [facility] 10-08-2022 09:04-0500 Body height 166.4 cm Ginger Lugo MD Work Phone: [facility] 10-08-2022 09:04-0500 Body weight 133.36 kg Ginger Lugo MD Work Phone: [facility] 10-08-2022 09:04-0500 Diastolic blood pressure 90 mm[Hg] Ginger Lugo MD Work Phone: [facility] 10-08-2022 09:04-0500 Heart rate 70 /min Ginger Lugo MD Work Phone: [facility] 10-08-2022 09:04-0500 SaO2% (BldA) [Mass fraction] 95 % Ginger Lugo MD Work Phone: [facility] 10-08-2022 09:04-0500 Systolic blood pressure 136 mm[Hg] Ginger Lugo MD Work Phone: [facility] 10-07-2022 11:43-0500 Diastolic blood pressure 70 mm[Hg] Ginger Lugo Other Phone: [facility] 10-07-2022 11:43-0500 Heart rate 72 /min Ginger Lugo Other Phone: [facility] 10-07-2022 11:43-0500 Respiratory rate 20 /min Ginger Lugo Other Phone: [facility] 10-07-2022 11:43-0500 SaO2% (BldA) [Mass fraction] 98 % Ginger Lugo Other Phone: [facility] 10-07-2022 11:43-0500 Systolic blood pressure 125 mm[Hg] Ginger Lugo Other Phone: [facility] 10-07-2022 08:04-0500 Body height 172.7 cm Ginger Lugo Other Phone: [facility] 10-07-2022 08:04-0500 Body temperature 97.7 [degF] Ginger Lugo Other Phone: [facility] 10-07-2022 08:04-0500 Body weight 127.3 kg Ginger Lugo Other Phone: [facility] 06-27-2022 09:31-0400 Body height 166.4 cm NA Christine PA-C Work Phone: [facility] 06-27-2022 09:31-0400 Body weight 128.37 kg NA Christine PA-C Work Phone: [facility] 06-27-2022 09:31-0400 Diastolic blood pressure 70 mm[Hg] NA Christine PA-C Work Phone: [facility] 06-27-2022 09:31-0400 Heart rate 74 /min NA Christine PA-C Work Phone: [facility] 06-27-2022 09:31-0400 Respiratory rate 18 /min NA Christine PA-C Work Phone: [facility] 06-27-2022 09:31-0400 SaO2% (BldA) [Mass fraction] 94 % NA Christine PA-C Work Phone: [facility] 06-27-2022 09:31-0400 Systolic blood pressure 128 mm[Hg] NA Christine PA-C Work Phone: [facility] 12-09-2021 15:41-0400 Body weight 131.09 kg Ginger Lugo MD Work Phone: [facility] 12-09-2021 15:41-0400 Diastolic blood pressure 96 mm[Hg] Ginger Lugo MD Work Phone: [facility] 12-09-2021 15:41-0400 Heart rate 76 /min Ginger Lugo MD Work [facility] [facility] 12-09-2021 15:41-0400 Respiratory rate 16 /min Ginger Lugo MD Work Phone: [facility] 12-09-2021 15:41-0400 Systolic blood pressure 160 mm[Hg] Ginger Lugo MD Work Phone: [facility] Encounters Encounter Date Encounter Type Care Provider Facility Start: 05-26-2025 End: 05-26-2025 Erroneous Encounter Velia Marshall [employer] Work Phone: [facility] Comment on above: Arrived Start: 05-26-2025 End: 05-26-2025 ambulatory GINGER LUGO Facility:[facility] Start: 05-21-2025 End: 05-22-2025 Refill Ginger Lugo MD Work Phone: [facility] [place] Comment on above: Refill Request Start: 04-07-2025 End: 04-07-2025 Refill Ginger Lugo MD Work Phone: [facility] [place] Comment on above: Refill Request (See notes) Start: 02-08-2025 End: 02-08-2025 Telephone encounter Ginger Lugo MD Work Phone: [facility] [place] Comment on above: Letter (No show #1) Start: 01-11-2025 End: 01-11-2025 ambulatory Ginger Lugo MD Work Phone: [facility] [place] Comment on above: Question Start: 01-05-2025 End: 01-05-2025 ambulatory Ginger Lugo MD Work Phone: [facility] [place] Comment on above: Dizziness Start: 01-04-2025 End: 01-10-2025 Telephone encounter Ginger Lugo MD Work Phone: [facility] [place] Comment on above: Refill Request Start: 01-02-2025 End: 01-06-2025 ambulatory Rocco Barragan MD [facility] Phone: [facility] Comment on above: S/P total knee arthr oplasty, left (Primary Dx) Start: 12-30-2024 End: 01-03-2025 ambulatory Rocco Barragan MD Work Phone: [facility] Comment on above: S/P total knee arthr oplasty, left (Primary Dx) Start: 12-28-2024 End: 01-01-2025 ambulatory Rocco Barragan MD Work Phone: [facility] Comment on above: S/P total knee arthr oplasty, left (Primary Dx) Start: 12-26-2024 End: 12-30-2024 ambulatory Rocco Barragan MD Work Phone: [facility] Comment on above: S/P total knee arthr oplasty, left (Primary Dx) Start: 12-13-2024 End: 2024 ambulatory Rocco Barragan MD Work Phone: [facility] Comment on above: S/P total knee arthr oplasty, left (Primary Dx); Loose left total knee arthroplasty (HCC) Start: 11-28-2024 End: 11-28-2024 Transcribe Orders Rocco Barragan MD Work Phone: [facility] Comment on above: Loose left total kne e arthroplasty (HCC) (Primary Dx) Start: 11-07-2024 End: 11-07-2024 ambulatory NUHA A SUPPAN Facility:[facility] Start: 11-07-2024 End: 11-07-2024 Office outpatient visit 15 minutes Nuha A Trishan [employer] Work Phone: [facility] [place] Comment on above: Hypoglycemia (Primar y Dx); Dizziness Start: 11-06-2024 End: 11-07-2024 Refill Ginger Lugo MD Work Phone: [facility] [place] Comment on above: Refill Request Start: 10-26-2024 End: 10-26-2024 Refill Ginger Lugo MD Work Phone: [facility] [place] Comment on above: Refill Request Start: 10-24-2024 End: 10-24-2024 [facility] Start: 10-24-2024 End: 10-24-2024 Office outpatient visit 15 minutes Nuha Tegan Mosquera [employer] Work Phone: [facility] [place] Comment on above: Osteoarthritis of le ft knee, unspecified osteoarthritis type (Primary Dx); Controlled type 2 diabetes mellitus without complication, without long-term current use of insulin (HCC) Start: 10-20-2024 End: 10-20-2024 ambulatory Ginger Lugo MD Work Phone: [facility] [place] Comment on above: nick lopes sent dr lugo a message but hes out of office Start: 10-14-2024 End: 10-14-2024 ambulatory Ginger Lugo Facility:[facility] Start: 10-10-2024 End: 10-11-2024 Refill Ginger Lugo MD Work Phone: [facility] [place] Comment on above: Refill Request Start: 10-05-2024 End: 10-12-2024 Telephone encounter Torsten Aviles DO Work Phone: [facility] [place] Comment on above: Forms Start: 10-04-2024 End: 10-04-2024 Patient encounter procedure Ginger Lugo MD Work Phone: [facility] [place] Comment on above: Osteoarthritis of le ft knee, unspecified osteoarthritis type (Primary Dx); Central sleep apnea; Essential hypertension, benign; Hyperlipidemia, unspecified hyperlipidemia type; Status post insertion of drug-eluting stent into left anterior descending (LAD) artery; Coronary artery disease involving 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; JOSIAH (obstructive sleep apnea); Hypothyroidism, unspecified type; Obesity, Class III, BMI 40-49.9 (morbid obesity) ([facility]); Controlled type 2 diabetes mellitus without complication, without long-term current use of insulin ([facility]) Start: 10-04-2024 End: 10-04-2024 ambulatory [facility] Facility:[facility] Start: 09-22-2024 End: 09-22-2024 Telephone encounter Torsten Aviles Work Phone: Radiology Comment on above: Imaging Start: 09-19-2024 End: 09-19-2024 Office outpatient new 45 minutes Jose Loo MD Work Phone: Orthopaedics Comment on above: Primary osteoarthrit is of left knee (Primary Dx) Start: 09-19-2024 End: 09-19-2024 ambulatory [facility] Facility:[facility] Start: 09-19-2024 End: 09-19-2024 Subsequent hospital visit by physician Xr [facility] Radiology Comment on above: Pain in both knees, unspecified chronicity [M25.561, M25.562] Start: 09-15-2024 End: 09-15-2024 Office outpatient visit 15 minutes Nuha Mosquera APRN.CNP Work Phone: [facility] Comment on above: Primary osteoarthrit is of left knee (Primary Dx) Start: 09-15-2024 End: 09-15-2024 Orders Only Jose Loo MD Work Phone: Orthopaedics Comment on above: Pain in both knees, unspecified chronicity (Primary Dx) Orders Start: 09-13-2024 End: 09-13-2024 Emergency department patient visit RIANNA NIDA [facility] Start: 09-09-2024 End: 09-09-2024 Telephone encounter Torsten Aviles DO Work Phone: Orthopaedics Comment on above: Referral Request Start: 08-26-2024 End: 08-26-2024 ambulatory GINGER LUGO Facility:[facility] Start: 08-26-2024 End: 08-26-2024 Patient encounter procedure Torsten Aviles DO Work Phone: [facility] [place] Comment on above: Primary osteoarthrit is of left knee (Primary Dx) Start: 08-25-2024 End: 08-25-2024 Refill Ginger Lugo MD Work Phone: [facility] [place] Comment on above: Refill Request Start: 08-10-2024 End: 08-10-2024 Telephone encounter Ginger Lugo MD Work Phone: [facility] [place] Comment on above: Results Start: 08-09-2024 End: 08-09-2024 [facility] Giorgio KOWALSKIO Facility:[facility] Start: 08-09-2024 End: 08-09-2024 Patient encounter procedure Ginger Lugo MD Work Phone: [facility] [place] Comment on above: JOSIAH (obstructive sle ep apnea) (Primary Dx); Encounter for immunization; Hyperlipidemia, unspecified hyperlipidemia type; Essential hypertension, benign; Family history of heart disease; Folate deficiency; Hypothyroidism, unspecified type; Controlled type 2 diabetes mellitus without complication, without long-term current use of insulin (HCC); Screening for colon cancer Start: 08-05-2024 End: 08-16-2024 Telephone encounter Torsten Aviles Work Phone: [facility] HB[facility] Comment on above: Insurance Authorizat ion (Prior Auth Delayed: Additional Info Needed) Start: 08-03-2024 End: 08-03-2024 ambulatory TORSTEN AVILES Facility:[facility] Start: 08-03-2024 End: 08-03-2024 Patient encounter procedure Torsten Aviles DO Work Phone: [facility] [place] Comment on above: Primary osteoarthrit is of left knee (Primary Dx) Start: 07-27-2024 End: 07-27-2024 Refill Ginger Lugo MD Work Phone: Internal Medicine [place] Comment on above: Refill Request; Open ed In Error Start: 07-26-2024 End: 07-27-2024 Refill Ginger Lugo MD Work Phone: [facility] [place] Comment on above: Refill Request Start: 07-25-2024 End: 07-25-2024 Telephone encounter Torsten Aviles DO Work Phone: Pre Anesthesia Comment on above: Patient Update Start: 06-29-2024 End: 06-29-2024 ambulatory [facility] Start: 06-24-2024 End: 06-24-2024 Telephone encounter Torsten Aviles DO Work Phone: Orthopaedics Comment on above: FMLA Paperwork Start: 06-17-2024 End: 06-17-2024 ambulatory [facility] Start: 06-16-2024 End: 06-16-2024 Telephone encounter Torsten Aviles DO Work Phone: Orthopaedics Comment on above: Work Excuse Start: 06-15-2024 End: 06-15-2024 ambulatory SALEEM Light [facility] Start: 06-09-2024 End: 06-09-2024 ambulatory GINGER ALEGRIA [facility] Start: 05-30-2024 End: 06-01-2024 Telephone encounter Torsten Aviles DO Work Phone: [facility] [place] Comment on above: Patient Question (To return to work or to be off longer with PT ) Start: 05-29-2024 End: 05-31-2024 ambulatory Torsten Aviles DO Work Phone: [facility] [place] Comment on above: Dr Aviles ( Nick castillo) Pain Start: 05-29-2024 End: 05-29-2024 Telephone encounter Torsten Aviles DO Work Phone: [facility] Comment on above: Results Start: 05-26-2024 End: 05-26-2024 Subsequent hospital visit by physician [employer] [employer] [address] (Lg Bore/1.5t) Radiology Comment on above: Chronic pain of left knee [M25.562, G89.29] Start: 05-22-2024 End: 05-23-2024 Refill Ginger Lugo MD Work Phone: [facility] [place] Comment on above: Refill Request Start: 05-16-2024 End: 05-17-2024 ambulatory Torsten Aviles V DO Work Phone: [facility] [place] Start: 05-16-2024 End: 05-17-2024 Patient encounter procedure Torsten Aviles DO Work Phone: [facility] [place] Comment on above: Appointment for mri Start: 05-13-2024 End: 05-13-2024 Orders Only Torsten Aviles DO Work Phone: Orthopaedics Comment on above: Chronic pain of left knee (Primary Dx) Start: 05-06-2024 End: 05-06-2024 Patient encounter procedure Torsten Aviles DO Work Phone: [facility] [place] Comment on above: Medial knee pain, le ft (Primary Dx) Start: 05-04-2024 End: 05-04-2024 Orders Only Torsten Aviles DO Work Phone: Orthopaedics Comment on above: Acute pain of left k nee (Primary Dx) Knee pain, unspecifi ed chronicity, unspecified laterality (Primary Dx) Start: 05-02-2024 End: 05-03-2024 Emergency department patient visit [facility] Facility:[facility] Start: 05-02-2024 End: 05-04-2024 ambulatory Torsten Aviles DO Work Phone: [facility] [place] Comment on above: Knee pain Start: 04-14-2024 End: 04-14-2024 Patient encounter procedure Sam Beasley Work Phone: Podiatry Comment on above: Closed non-physeal f racture of phalanx of right great toe, unspecified phalanx, initial encounter (Primary Dx) Start: 04-14-2024 End: 04-14-2024 Subsequent hospital visit by physician Ulysses [facility] [place] Work Phone: Radiology Comment on above: Open wound of toe, i nitial encounter [S91.109A] Start: 04-06-2024 End: 04-06-2024 Patient encounter procedure Torsten Aviles DO Work Phone: [facility] Comment on above: Acute pain of left k nee; Pain of left lower extremity Start: 04-06-2024 Telephone encounter Ginger Lugo MD Work Phone: [facility] Comment on above: Forms (Dwight celeste forms ) Start: 04-04-2024 Telephone encounter Ginger Lugo MD Work Phone: [facility] Comment on above: Results Start: 04-01-2024 Telephone encounter Sam King Work Phone: Podiatry Comment on above: Results Start: 04-01-2024 End: 04-01-2024 Nursing evaluation of patient and report Nurse/Testrastephanie [facility] Work Phone: Podiatry Comment on above: Closed nondisplaced fracture of distal phalanx of right great toe, initial encounter (Primary Dx) Start: 03-30-2024 Telephone encounter Sam King Work Phone: Podiatry Start: 03-29-2024 ambulatory GINGER LUGO Facility :[facility] Start: 03-29-2024 End: 03-29-2024 Subsequent hospital visit by physician [facility] Comment on above: Acute pain of left k nee [M25.562] Start: 03-28-2024 End: 03-28-2024 Subsequent hospital visit by physician Xr [facility] [place] Work Phone: Radiology Comment on above: Acute pain of left k nee [M25.562] Start: 03-28-2024 End: 03-28-2024 Subsequent hospital visit by physician Xr [facility] [place] Work Phone: Radiology Comment on above: Ingrowing toenail wi th infection [L60.0] Start: 03-28-2024 End: 03-28-2024 Patient encounter procedure Ginger Lugo MD Work Phone: [facility] Comment on above: Essential hypertensi on, benign (Primary Dx); Hyperlipidemia, unspecified hyperlipidemia type; Controlled type 2 diabetes mellitus without complication, without long-term current use of insulin (HCC); Hypothyroidism, unspecified type; S/P PTCA (percutaneous transluminal coronary angioplasty); Elevated liver enzymes; Status post insertion of drug-eluting stent into left anterior descending (LAD) artery; JOSIAH (obstructive sleep apnea); Screening for prostate cancer; Screening for colon cancer; Acute pain of left knee; Edema of leg; Pain of left lower extremity; Ingrown toenail; History of Clostridioides difficile colitis Ingrowing toenail wi th infection (Primary Dx) Start: 03-14-2024 ambulatory Ginger Lugo MD Work Phone: [facility] [place] Comment on above: Toe swollen and infe cted Start: 02-10-2024 Refill Ginger Lugo MD Work Phone: [facility] [place] Comment on above: Refill Request Start: 01-29-2024 End: 01-29-2024 ambulatory Nurse Intm/Famp Triage [facility] Work Phone: Nurse Phone Triage Comment on above: Nurse Triage Call; S ore Throat Start: 01-20-2024 Refill Ginger Lugo MD Work Phone: [facility] [place] Comment on above: Refill Request Start: 01-16-2024 End: 01-16-2024 Emergency department patient visit GINGER LUGO [facility] Start: 12-07-2023 Refill Ginger Lugo MD Work Phone: [facility] [place] Comment on above: Refill Request Start: 10-30-2023 End: 10-30-2023 Patient encounter procedure Ginger Lugo MD Work Phone: [facility] [place] Comment on above: C. difficile colitis (Primary Dx) Start: 10-29-2023 End: 10-29-2023 ambulatory ABILIO GONG [facility] Start: 10-29-2023 End: 10-29-2023 Office outpatient new 45 minutes Abilio Gong [facility] Work Phone: [facility] Comment on above: Colitis (Primary Dx) ; Diarrhea, unspecified type Start: 10-27-2023 Refill Ginger Lugo MD Work Phone: [facility] Comment on above: Refill Request Start: 10-26-2023 Telephone encounter Ginger Lugo MD Work Phone: [facility] Comment on above: Results Start: 10-24-2023 End: 10-24-2023 Patient encounter procedure Ginger Lugo MD Work Phone: [facility] Comment on above: C. difficile colitis (Primary Dx) Start: 10-21-2023 ambulatory Nuha A S uppan [employer] Work Phone: [facility] Comment on above: Stomach pains and di aherria Diarrhea; Abdominal Pain Start: 10-21-2023 Telephone encounter Ginger Lugo MD Work Phone: [facility] Comment on above: Results Start: 10-16-2023 End: 10-16-2023 Office outpatient visit 25 minutes Nuha Mosquera [employer] Work Phone: [facility] Comment on above: Chest pain, unspecif ied type (Primary Dx); C. difficile colitis Start: 10-09-2023 Non-patient / Non-visit Dr. Tomás Lugo Work Phone: [facility] Work Phone: Start: 10-08-2023 Non-patient / Non-visit Dr. Tomás Lugo Work Phone: [facility] Start: 10-08-2023 Telephone encounter Ginger Lugo MD Work Phone: [facility] Comment on above: Results Start: 10-08-2023 Non-patient / Non-visit Dr. Tomás Lugo Work Phone: [facility] Work Phone: Start: 10-07-2023 Non-patient / Non-visit Dr. Tomás Lugo Work Phone: [facility] Start: 10-07-2023 End: 10-09-2023 Evaluation and management of inpatient [facility] Work Phone: Start: 10-07-2023 End: 10-09-[address] Ginger Lugo Work Phone: [facility] Work Phone: Start: 10-02-2023 Telephone encounter Ginger Lugo MD Work Phone: [facility] Start: 09-23-2023 End: 09-23-2023 Emergency department patient visit GINGER LUGO [facility] Start: 09-23-2023 End: 09-23-2023 Subsequent hospital visit by physician Irving [employer] [facility] Comment on above: Arrived Start: 09-22-2023 End: 09-22-2023 Emergency department patient visit Ismael Durham DO Work Phone: [facility] Comment on above: Hyperglycemia (Prima ry Dx); Abdominal pain, unspecified abdominal location; Lactic acidosis Start: 07-20-2023 Refill [place] Son on PA-C Work Phone: [facility] Comment on above: Refill Request Start: 07-03-2023 Refill Ginger Lugo MD Work Phone: [facility] Comment on above: Refill Request Start: 05-06-2023 ambulatory LEBRON CROSS Facility:[id number] Start: 04-22-2023 ambulatory LEBRON CROSS Facility:[id number] Start: 04-22-2023 FUV, Provider: Lebron Cross II, Status: Markie, Time: 3:45 PM Ginger Lugo Work Phone: [facility] Work Phone: Start: 04-22-2023 Office outpatient vi sit 15 minutes Ginger uLgo Work Phone: [facility] Work Phone: Start: 04-20-2023 AUDIT Ginger Lugo Work Phone: [facility] Work Phone: Start: 08-10-2023 Office outpatient ne w 45 minutes Ginger Lugo Work Phone: [facility] 232 DO Work Phone: Start: 04-16-2023 ambulatory LEBRON CROSS Facility:[id number] Start: 03-30-2023 End: 03-30-2023 Patient encounter procedure Ginger Lugo MD Work Phone: [facility] Comment on above: Sepsis due to Escher ichia coli without acute organ dysfunction (HCC) (Primary Dx); Acute pyelonephritis; Essential hypertension, benign; Controlled type 2 diabetes mellitus without complication, without long-term current use of insulin (HCC) Start: 03-29-2023 End: 03-29-[address] Ginger Lugo Facility:[id number] Start: 03-29-2023 End: 03-29-2023 Subsequent hospital visit by physician Chao Melendez DO Work Phone: [facility] Comment on above: Acute pyelonephritis ; Unspecified Escherichia coli (E. coli) as the cause of diseases classified elsewhere Start: 03-28-2023 End: 03-28-[address] Sen Guzman Facility:[id number] Start: 03-28-2023 End: 03-28-2023 Subsequent hospital visit by physician Chao Melendez DO Work Phone: [facility] Comment on above: Acute pyelonephritis ; Unspecified Escherichia coli (E. coli) as the cause of diseases classified elsewhere Start: 03-27-[address] Sen Guzman Facility:[id number] Start: 03-26-[address] Sen Guzman Facility:[id number] Start: 03-25-[address] Sen Guzman Facility:[id number] Start: 03-24-[address] Sen Guzman Facility:[id number] Start: 03-23-[address] Ginger sanches [place] Facility:[id number] Start: 03-22-2023 Non-patient / Non-visit Dr. Tomás Lugo Work Phone: [facility] Work Phone: Start: 03-21-2023 Non-patient / Non-visit Dr. Tomás Lugo Work Phone: [facility] Work Phone: Start: 03-20-2023 Non-patient / Non-visit Dr. Tomás Lugo Work Phone: [facility] Work Phone: Start: 03-19-2023 Non-patient / Non-visit Dr. Tomás Lugo Work Phone: [facility] Work Phone: Start: 03-18-2023 End: 03-22-2023 Evaluation and management of inpatient [facility] Work Phone: Start: 03-17-2023 Telephone encounter Ginger Lugo MD Work Phone: [facility] Comment on above: Appointment Start: 03-04-2023 End: 03-05-2023 Emergency department patient visit [facility] Work Phone: Start: 01-31-2023 End: 01-31-2023 Emergency department patient visit 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 Tomás Lugo Work Phone: [facility] Start: 10-24-2022 End: 10-25-2022 Evaluation and management of inpatient Dr. Ginger Lugo Work Phone: [facility] Start: 10-24-2022 End: 10-25-[address] Ginger Lugo Work Phone: [facility] Work Phone: Start: 10-22-2022 End: 10-22-[address] Ginger Lugo Work Phone: [facility] Work Phone: Start: 10-22-2022 End: 10-22-[address] Ginger Lugo Work Phone: [facility] Start: 10-22-2022 Non-patient / Non-visit Dr. Tomás Lugo Work Phone: [facility] Start: 10-13-2022 End: 10-13-[address] Ginger Lugo Work Phone: [facility] Start: 10-09-2022 Non-patient / Non-visit Dr. Tomás Lugo Work Phone: [facility] Start: 10-08-2022 End: 10-08-2022 Patient encounter procedure Ginger Lugo MD Work Phone: [facility] Comment on above: Chest pain, unspecif ied type (Primary Dx); Essential hypertension, benign; Controlled type 2 diabetes mellitus without complication, without long-term current use of insulin (HCC); Hypothyroidism, acquired; Syncope, unspecified syncope type; Family history of heart disease Start: 10-07-2022 End: 10-07-2022 Emergency department patient visit Beau Dumont [facility] Emergency 13 Start: 10-06-2022 Nate ahuja PA-C Work Phone: [facility] Comment on above: Refill Request Start: 08-28-2022 End: 08-28-2022 ambulatory [place] Christine PA-C Work Phone: [facility] [place] Comment on above: Acute upper respirat ory infection (Primary Dx) Start: 08-28-2022 End: 08-28-2022 Telemedicine consultation with patient [place] Christine PA-C Work Phone: [facility] [place] Start: 07-07-2022 ambulatory [place] ahuja PA-C Work Phone: [facility] [place] Comment on above: Labs Start: 06-27-2022 End: 06-27-2022 Patient encounter procedure [place] Christine PA-C Work Phone: [facility] [place] Comment on above: Wellness examination (Primary Dx); Essential hypertension, benign; Hyperlipidemia, unspecified hyperlipidemia type; Controlled type 2 diabetes mellitus without complication, without long-term current use of insulin (HCC); Central sleep apnea; JOSIAH (obstructive sleep apnea); Need for influenza vaccination; Screening for colon cancer; Screening for prostate cancer; Need for vaccination; DDD (degenerative disc disease), lumbar; Spinal stenosis of lumbar region without neurogenic claudication; Cervical stenosis of spine Start: 06-27-2022 End: 06-27-2022 Patient encounter status [place] Christine PA-C Work Phone: [facility] [place] Start: 06-17-2022 End: 06-17-2022 Patient encounter procedure [place] Christine PA-C Work Phone: [facility] [place] Comment on above: Wellness examination (Primary Dx); Essential hypertension, benign; Hyperlipidemia, unspecified hyperlipidemia type; JOSIAH (obstructive sleep apnea); Central sleep apnea; Controlled type 2 diabetes mellitus without complication, without long-term current use of insulin (HCC); Hypothyroidism, unspecified type; THEO (generalized anxiety disorder); Situational stress; 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 Work Phone: Start: 04-23-2022 ambulatory Provider Pending Facili ty:[id number] Start: 04-23-2022 [id number], Provider : Elvira Martin, Status: Pen, Time: 8:00 AM Elvira Martin OTR/L Work Phone: [facility] Work Phone: Start: 04-22-2022 Patient encounter procedure Elvira Martin OTR/L Work Phone: [facility] Work Phone: Start: 04-22-2022 ambulatory Provider Pending Facili ty:[id number] Start: 04-17-2022 ambulatory Provider Pending Facili ty:[id number] Start: 04-17-2022 Patient encounter procedure Sabine Garza OTR/L Work Phone: [facility] Work Phone: Start: 04-14-2022 Patient encounter procedure Marielos Law CARROLL/L Work Phone: [facility] Work Phone: Start: 04-14-2022 ambulatory Provider Pending Facili ty:[id number] Start: 04-08-2022 ambulatory Provider Pending Facili ty:[id number] Start: 04-08-2022 Patient encounter procedure Sabine Garza OTR/L Work Phone: [facility] Work Phone: Start: 04-08-2022 End: 04-12-2022 ambulatory REGGIE BRAR [facility] Start: 04-03-2022 Patient encounter procedure Marielos CARROLL/Dolores Work Phone: [facility] Work Phone: Start: 04-03-2022 ambulatory Provider Pending Facili ty:[id number] Start: 03-31-2022 Patient encounter procedure Marielos CARROLL/Dolores Work Phone: [facility] Work Phone: Start: 02-13-2022 End: 02-17-2022 [facility] Start: 02-06-2022 End: 02-10-2022 [facility] Start: 01-30-2022 End: 02-03-2022 ambulatory REGGIE BRAR [facility] Start: 01-27-2022 Telephone encounter Ginger Lugo MD Work Phone: [facility] [place] Comment on above: Future Appointment ( ER/WC) Start: 12-16-2021 ambulatory Ginger Lugo MD Work Phone: [facility] [place] Comment on above: Work release Start: 12-10-2021 Telephone encounter Ginger Lugo MD Work Phone: [facility] [place] Comment on above: Results Start: 12-09-2021 ambulatory [place] ahuja PA-C Work Phone: [facility] [place] Start: 12-09-2021 End: 12-09-2021 Patient encounter procedure [place] Christine PA-C Work Phone: [facility] [place] Comment on above: Appointment for guerrero rrow Prepatellar bursitis of right knee (Primary Dx); Hypothyroidism, unspecified type; Controlled type 2 diabetes mellitus without complication, without long-term current use of insulin (HCC); Hyperlipidemia, unspecified hyperlipidemia type; Essential hypertension, benign Start: 12-08-2021 ambulatory [place] ahuja PA-C Work Phone: [facility] Comment on above: Knee problem Start: 12-03-2021 Telephone encounter [place] Dougherty Emmett VALENTIN-Davide Work Phone: [facility] Comment on above: Opened In Error Start: 12-03-2021 End: 12-03-2021 Subsequent hospital visit by physician Xr [facility] [place] Work Phone: Radiology Comment on above: Chronic left shoulde r pain [M25.512, G89.29] Start: 11-29-2021 Refill Ginger Lugo MD Work Phone: [facility] Comment on above: Refill Request Start: 10-16-2020 End: 10-16-2020 Subsequent hospital visit by physician Xr [facility] [place] Work Phone: Radiology Comment on above: Suspected COVID-19 v irus infection [Z20.822] Start: 05-03-2018 End: 05-03-2018 Patient encounter Ellie Hernandez Facility:[place] Start: 04-23-2018 Patient encounter Ellie Luis Antonio cates Facility:[place] Start: 04-23-2018 End: 04-23-2018 Patient encounter Ellie Luis Antonio Hernandez Work Phone: [facility] Start: 01-02-2009 End: 12-14-2013 Patient encounter status Ginger Lugo MD Work Phone: [facility] Procedures Date Procedure Procedure Detail Performing Clinician Start: 09-19-2024 Radiologic exam knee complete 4/more views Jose Loo MD Work Phone: Start: 08-26-2024 Arthrocentesis aspir&/inj major jt/bursa w/o us Torsten Aviles DO Work Phone: Start: 05-26-2024 Mri any jt lower extrem w/o contrast matrl Torsten Aviles DO Work Phone: Start: 05-06-2024 Arthrocentesis aspir&/inj major jt/bursa w/o us Torsten Aviles DO Work Phone: Start: 04-14-2024 Radex toe minimum 2 views Sam brown Work Phone: Start: 04-06-2024 Arthrocentesis aspir&/inj major jt/bursa w/o us Torsten Aviles DO Work Phone: Start: 04-01-2024 Thyrotropin [Units/volume] in Serum or Plasma Velia Marshall UMB[employer]LL[employer]ENDER-MILL PLATFORM SUPERVISOR Work Phone: Start: 03-29-2024 Dup-scan xtr veins unilateral/limited study Ginger Lugo MD Work Phone: Start: 03-28-2024 Radiologic exam knee complete 4/more views Ginger Lugo MD Work Phone: Start: 03-28-2024 Radex toe minimum 2 views Sam brown Work Phone: Start: 03-28-2024 Cul bact xcpt urine blood/stool aerobic isol Sam Beasley Work Phone: Start: 10-07-2023 Plain chest X-ray Start: 09-23-2023 Ecg routine ecg w/least 12 lds trcg only w/o i&r Ximenaponcho Crespoderback [employer]ATFORM SUPERVISOR Work Phone: Start: 09-22-2023 End: 09-22-2023 Assay of lactate Ximena C Bilderback [employer]MILL [employer]ATFORM SUPERVISOR Work Phone: Start: 09-22-2023 End: 09-22-2023 Assay of lactate Ximena C Bilderback [employer]MILL PLATFORM SUPERVISOR Work Phone: Start: 09-22-2023 Urnls dip stick/tablet rgnt auto w/o microscopy Ximena C Bilderback [employer]MILL [employer]ATFORM SUPERVISOR Work Phone: Start: 09-22-2023 Ct abdomen & pelvis w/contrast material Ximena C Bilderback [employer]MILL [employer]ATFORM SUPERVISOR Work Phone: Start: 09-22-2023 Troponin I.cardiac panel - Serum or Plasma by High sensitivity method Ismael Durham DO Work Phone: Start: 09-22-2023 End: 09-22-2023 Comprehensive metabolic panel Ximena Augustine Michelle [employer]ATFORM SUPERVISOR Work Phone: Start: 09-22-2023 Gases blood ph direct talita xcpt pulse oximitry Ximena Augustine Michelle [employer]LL [employer]ATFORM SUPERVISOR Work Phone: Start: 09-22-2023 Glucose quantitative blood xcpt reagent strip Ismael Anabel NamDurham DO Work Phone: Start: 05-06-2023 Follow-up visit Start: 03-17-2023 Computed tomography of abdomen and pelvis with intravenous contrast Start: 03-17-2023 Plain chest X-ray Start: 03-17-[address] Ginger Lugo Work Phone: Start: 03-17-2023 Viral antigen assay Start: 03-04-2023 Plain chest X-ray Start: 03-04-2023 SARS-CoV-2 & FLU Antigen (Rapid) Start: 01-31-2023 CT of abdomen and pelvis without contrast Start: 01-24-2023 History of placement of stent in anterior descending branch of left coronary artery Status post insertion of drug-eluting stent into left anterior descending (LAD) artery Ginger Lugo MD Work Phone: Start: 10-08-2022 History of placement of stent for coronary artery disease History of coronary artery stent placement Dr. Ginger Lugo Work Phone: Start: 10-07-2022 End: 10-07-2022 EKG impression Beau Dumont Start: 06-27-2022 INFLUENZA VACCINE QUADRIVALENT 6 MO - 64 YRS IM [place] Christine PA-C Work Phone: Start: 12-03-2021 Radex shoulder complete minimum 2 views [place] Christine PA-C Work Phone: Start: 12-28-2020 Adult depression screening assessment Ginger Lugo MD Work Phone: Start: 10-16-2020 Radiologic exam chest 2 views Jorge Patricia [employer]LL [employer]ATFORM SUPERVISOR Work Phone: Coronary artery bypa ss graft Ginger Lugo Work Phone: History of placement of stent in anterior descending branch of left coronary artery Status post insertion of drug-eluting stent into left anterior descending (LAD) artery Ginger Lugo MD Work Phone: History of placement of stent in anterior descending branch of left coronary artery Status post insertion of drug-eluting stent into left anterior descending (LAD) artery Ginger Lugo MD Work Phone: Plan of Treatment Date Care Activity Detail Author Start: 06-27-2032 DTaP/Tdap/Td Vaccine s (3 - Td or Tdap) DTaP/Tdap/Td Vaccines (3 - Td or Tdap) [facility] Start: 06-27-2032 Tetanus vaccination Tetanus: Every 1 0yrs [facility] Start: 06-27-2032 Urine microalbumin profile [facility] Start: 08-25-2027 Screening for malign ant neoplasm of colon [facility] Start: 08-09-2027 Diabetes mellitus screening Diabetes Screening [facility] Start: 09-22-2026 Diabetes mellitus screening Diabetes Screening [facility] Start: 06-10-2026 TWO PNEUMOVAX 5 YEAR S APART PRIOR TO AGE 65 (#2) TWO PNEUMOVAX 5 YEARS APART PRIOR TO AGE 65 (#2) [facility] Start: 11-07-2025 Annual PCP Team Dough Puncher manisha Disease Visit Annual PCP Team Chronic Disease Visit [facility] Start: 10-24-2025 Annual PCP Team Dough Puncher manisha Disease Visit Annual PCP Team Chronic Disease Visit [facility] Start: 10-04-2025 Annual PCP Team Dough Puncher manisha Disease Visit Annual PCP Team Chronic Disease Visit [facility] Start: 10-04-2025 BP Controlled (<130/80) BP Controlle d (<130/80) [facility] Start: 10-04-2025 Pneumococcal Vaccine : 50+ (2 of 2 - PCV) Pneumococcal Vaccine: 50+ (2 of 2 - PCV) [facility] Comment on above: Postponed from 06/27 (Declined at this time) Start: 09-15-2025 Annual PCP Team Dough Puncher manisha Disease Visit Annual PCP Team Chronic Disease Visit [facility] Start: 08-09-2025 Annual PCP Team Dough Puncher manisha Disease Visit Annual PCP Team Chronic Disease Visit [facility] Start: 08-09-2025 Covid-19 Vaccine ( season) Covid-19 Vaccine () [facility] Comment on above: Postponed from 05/08 (Declined at this time) Start: 08-09-2025 Shingrix Vaccine (2 of 2) Shingrix Vaccine (2 of 2) [facility] Comment on above: Postponed from 08/22 (Declined at this time) Start: 05-26-2025 End: 05-26-2025 Patient encounter procedure 05/26/2025 3:00 PM EDT Office Visit [facility] [place] [address] [place] [address] Torsten Aviles V, DO [address] [place], [place] [id number] LM to update insurance [facility] [place] Comment on above: LM to update insuran ce Start: 05-08-2025 COVID-19 Vaccine ( season) COVID-19 Vaccine () [facility] Start: 05-08-2025 Influenza vaccination Influenza Vacc ine (#1) [facility] Start: 05-04-2025 Annual PCP Team Dough Puncher manisha Disease Visit Annual PCP Team Chronic Disease Visit [facility] Start: 04-01-2025 Hepatitis B screening Urine Albumin:Creatinine Ratio [facility] Start: 04-01-2025 Hepatitis B surface antibody level LDL Cholesterol [facility] Start: 04-01-2025 Thyroid stimulating hormone measurement TSH Level [facility] Start: 03-28-2025 Annual PCP Team Dough Puncher manisha Disease Visit Annual PCP Team Chronic Disease Visit [facility] Start: 03-28-2025 Covid-19 Vaccine ( season) Covid-19 Vaccine ( season) [facility] Comment on above: Postponed from 05/08 (Declined at this time) Start: 03-28-2025 Diabetic foot examination Diabetic Foot Exam [facility] Start: 03-28-2025 Hepatitis B Vaccine (1 of 3 - 19+ 3-dose series) Hepatitis B Vaccine (1 of 3 - 19+ 3-dose series) [facility] Comment on above: Postponed from 12/17 (Declined at this time) Start: 03-28-2025 Pneumococcal vaccination Pneum ococcal Vaccine (2 of 2 - PCV) [facility] Comment on above: Postponed from 06/27 (Declined at this time) Start: 02-08-2025 End: 02-08-2025 Patient encounter procedure 02/08/2025 10:00 AM EDT Office Visit [facility] [place] [address] [place] [address] Ginger Lugo MD [address] [place] [address] 6 month follow up [facility] [place] Comment on above: 6 month follow up Start: 02-07-2025 Hemoglobin A1c measurement [facility] Start: 01-06-2025 End: 01-06-2025 ambulatory 01/06/2025 10:45 AM [facility] [address] [place] [address] Rocco Barragan MD [address] [place] [address] Teja Lopez PTA [facility] Start: 01-04-2025 End: 01-04-2025 ambulatory 01/04/2025 10:45 AM EDT [facility] [address] [place] [address] Rocco Barragan MD [address] [place] [address] Aly Winchester, PT [facility] Start: 01-02-2025 End: 01-02-2025 ambulatory 01/02/2025 10:45 AM EDT [facility] [address] [place] [address] Rocco Barragan MD [address] [place] [address] Aly Winchester, PT [facility] Start: 12-30-2024 End: 12-30-2024 ambulatory [facility] Start: 12-28-2024 End: 12-28-2024 ambulatory [facility] Start: 12-26-2024 End: 12-26-2024 ambulatory 12/26/2024 10:45 AM EDT [facility] [address] [place] [address] Rocco Barragan MD [address] [place] [address] Teja Lopez TIMBER SIZER OPERATOR [facility] Start: 12-23-2024 End: 12-23-2024 ambulatory 12/23/2024 11:30 AM EDT [facility] [address] [place] [address] Rocco Barragan MD [address] [place] [address] Joana Powers TIMBER SIZER OPERATOR [facility] Start: 12-21-2024 End: 12-21-2024 ambulatory 12/21/2024 10:45 AM EDT [facility] [address] [place] [address] Rocco Barragan MD [address] [place] [address] Teja Lopez PTA [facility] Start: 12-19-2024 End: 12-19-2024 ambulatory 12/19/2024 10:45 AM EDT [facility] [address] [place] [address] Rocco Barragan MD [address] [place] [address] Teja Lopez, YAAKOV Discharge Disposition: Home [facility] Start: 12-15-2024 End: 12-15-2024 ambulatory 12/15/2024 10:45 AM EDT [facility] [address] [place] [address] Rocco Barragan MD [address] [place] [address] Aly Winchester, PT Discharge Disposition: Home [facility] Start: 11-30-2024 End: 11-30-2024 Patient encounter procedure 11/30/2024 9:00 AM EDT Office Visit Orthopaedics [address] [address] Jose Loo MD [address] [place] [address] 2-3 month follow up - Lft Knee Orthopaedics Comment on above: 2-3 month follow up - Lft Knee Start: 11-29-2024 End: 11-29-2024 Patient encounter procedure 11/29/2024 2:20 PM EDT Office Visit [facility] [place] [address] [place] [id number] Ginger Lugo MD [address] [place] [address] follow up. Knee replacement surgery [facility] [place] Comment on above: follow up. Knee repl acement surgery Start: 11-08-2024 End: 02-07-2025 Hemoglobin A1c in Blood HEMOGLOBIN A1C Lab Routine Controlled type 2 diabetes mellitus without complication, without long-term current use of insulin (HCC) Expected: 11/08/2024, Expires: 02/07/2025 [facility] Work Phone: Comment on above: Expected: 11/08/2024 , Expires: 02/07/2025 Start: 11-07-2024 End: 11-07-2024 Follow-up encounter 11/07/2024 11:20 AM EST [facility] [place] [address] [facility] [place] [address] Nuha Mosquera APRN.MILL PLATFORM SUPERVISOR [address] [facility] [place] [id number] 2 week dizziness follow up [facility] [place] Comment on above: 2 week dizziness fol low up Start: 10-30-2024 Annual PCP Team Dough Puncher manisha Disease Visit Annual PCP Team Chronic Disease Visit [facility] Start: 10-24-2024 Annual PCP Team Dough Puncher manisha Disease Visit Annual PCP Team Chronic Disease Visit [facility] Start: 10-24-2024 BP Controlled (<130/80) BP Controlle d (<130/80) [facility] Start: 10-24-2024 End: 10-24-2024 ambulatory 10/24/2024 9:[address] [facility] [address] [facility] [place] [address] Nuha Mosquera APRN.MILL PLATFORM SUPERVISOR [address] [facility] [place] [address] dizziness and bloodsugar dropping [facility] [place] Comment on above: dizziness and bloods ugar dropping Start: 10-07-2024 Annual PCP Team Dough Puncher manisha Disease Visit Annual PCP Team Chronic Disease Visit [facility] Start: 10-02-2024 Hemoglobin A1c measurement HbA1C [facility] Start: 09-30-2024 End: 09-30-2024 Patient encounter procedure 09/30/2024 9:40 AM EST Office Visit Family [facility] [place] [address] [facility] [place] [address] Ginger Lugo MD [address] [facility] [place] [address] 6 mo f/u [facility] [place] Comment on above: 6 mo f/u Start: 09-19-2024 End: 09-19-2024 Patient encounter procedure Radiology Comment on above: L knee & leg length. Lft Knee Replmnt Con sul Epic Images Start: 09-10-2024 End: 12-10-2024 CBC panel - Blood by Automated count COMPLETE BLOOD COUNT Lab Routine Leukocytosis, unspecified type Expected: 09/10/2024, Expires: 12/10/2024 [facility] Comment on above: Expected: 09/10/2024 , Expires: 12/10/2024 Start: 08-26-2024 End: 08-26-2024 Patient encounter procedure 08/26/2024 3:30 PM EST Office Visit Family [facility] [address] [place] [address] Torsten Aviles V, DO [address] [place] [address] Durolane injection left knee - authorized [facility] [place] Comment on above: Durolane injection l eft knee - authorized Start: 08-09-2024 End: 11-08-2024 Hemoglobin A1c in Blood [facility] Work Phone: Comment on above: Expected: 08/09/2024 , Expires: 11/08/2024 Start: 08-03-2024 End: 08-03-2024 Patient encounter procedure 08/03/2024 2:30 PM EST Office Visit [facility] [address] [place] [address] Torsten Aviles V, DO [address] [place] [address] continued left knee pain [facility] [place] Comment on above: continued left knee pain Start: 06-06-2024 Urine screening for protein eGFR Diabetes [facility] Start: 05-26-2024 End: 05-26-2024 Patient encounter procedure 05/26/2024 8:00 AM EDT Appointment Radiology [address] [place], [place] [id number] Chronic pain of left knee [M25.562, G89.29] Radiology Comment on above: Chronic pain of left knee [M25.562, G89.29] Start: 05-08-2024 Covid-19 Vaccine () Covid-19 Vaccine () [facility] Start: 05-08-2024 Covid-19 Vaccine ( season) Covid-19 Vaccine ( season) [facility] Start: 05-08-2024 Influenza vaccination Influenza Vacc ine (#1) [facility] Start: 05-06-2024 End: 05-06-2024 Patient encounter procedure 05/06/2024 2:30 PM EDT Office Visit [facility] [address] [place] [address] Torsten Aviles V, DO [address] [facility] [place] [address] left knee pain f/u [facility] Comment on above: left knee pain f/u Start: 04-16-2024 Prostate specific antigen measurement PSA Prostate Cancer Screening [facility] Start: 04-14-2024 End: 04-14-2024 Patient encounter procedure 04/14/2024 11:45 AM EDT Office Visit Podiatry [address] [place] [facility] [place] [address] Sam Beasley [address] [place] [address] 2 week follow up ingrown R great toe Podiatry Comment on above: 2 week follow up deanne ching R great toe Start: 04-06-2024 End: 04-06-2024 Patient encounter procedure [facility] Comment on above: Acute pain of left k nee [M25.562]; Pain of left lower extremity [M79.605] Start: 04-04-2024 End: 07-04-2024 CBC W Auto Differential panel - Blood COMPLETE BLOOD COUNT AND DIFFERENTIAL Lab Routine Folate deficiency Expected: 04/04/2024, Expires: 07/04/2024 [facility] Comment on above: Expected: 04/04/2024 , Expires: 07/04/2024 Start: 04-04-2024 End: 07-04-2024 Folate [Mass/volume] in Serum or Plasma FOLATE, SERUM Lab Routine Folate deficiency Expected: 04/04/2024, Expires: 07/04/2024 [facility] Work Phone: Comment on above: Expected: 04/04/2024 , Expires: 07/04/2024 Start: 04-04-2024 End: 04-04-2024 Patient encounter procedure General Surgery Comment on above: Screening for colon cancer [Z12.11] Screening for colon cancer Start: 03-30-2024 ANNUAL PCP TEAM TICK SEWER MANISHA DISEASE VISIT ANNUAL PCP TEAM CHRONIC DISEASE VISIT [facility] Start: 03-29-2024 End: 03-29-2024 Patient encounter procedure 03/29/2024 4:00 PM EDT Appointment [facility] [address] [place] [address] Acute pain of left knee [M25.562]; Edema of leg [R60.0]; Pain of left lower extremity [M79.605] [facility] Comment on above: Acute pain of left k nee [M25.562]; Edema of leg [R60.0]; Pain of left lower extremity [M79.605] Start: 03-28-2024 End: 06-27-2024 CBC W Auto Differential panel - Blood COMPLETE BLOOD COUNT AND DIFFERENTIAL Lab Routine Controlled type 2 diabetes mellitus without complication, without long-term current use of insulin (HCC) Expected: 03/28/2024, Expires: 06/27/2024 [facility] Comment on above: Expected: 03/28/2024 , Expires: 06/27/2024 Start: 03-28-2024 End: 06-27-2024 Comprehensive metabolic 2000 panel - Serum or Plasma COMPREHENSIVE METABOLIC PANEL Lab Routine Controlled type 2 diabetes mellitus without complication, without long-term current use of insulin (HCC) Expected: 03/28/2024, Expires: 06/27/2024 [facility] Comment on above: Expected: 03/28/2024 , Expires: 06/27/2024 Start: 03-28-2024 End: 06-27-2024 Hemoglobin A1c in Blood HEMOGLOBIN A1C Lab Routine Controlled type 2 diabetes mellitus without complication, without long-term current use of insulin (HCC) Expected: 03/28/2024, Expires: 06/27/2024 [facility] Comment on above: Expected: 03/28/2024 , Expires: 06/27/2024 Start: 03-28-2024 End: 06-27-2024 Lipid 1996 panel - Serum or Plasma LIPID PANEL BASIC Lab Routine Controlled type 2 diabetes mellitus without complication, without long-term current use of insulin (HCC) Expected: 03/28/2024, Expires: 06/27/2024 [facility] Comment on above: Expected: 03/28/2024 , Expires: 06/27/2024 Start: 03-28-2024 End: 06-27-2024 Microalbumin/Creatinine [Mass Ratio] in Urine ALBUMIN/CREATININE RATIO, URINE Lab Routine Controlled type 2 diabetes mellitus without complication, without long-term current use of insulin (HCC) Expected: 03/28/2024, Expires: 06/27/2024 [facility] Comment on above: Expected: 03/28/2024 , Expires: 06/27/2024 Start: 03-28-2024 End: 06-27-2024 PSA/PROSTATE SPECIFIC ANTIGEN SCREENING PSA/PROSTATE SPECIFIC ANTIGEN SCREENING Lab Routine Screening for prostate cancer Expected: 03/28/2024, Expires: 06/27/2024 [facility] Comment on above: Expected: 03/28/2024 , Expires: 06/27/2024 Start: 03-28-2024 End: 06-27-2024 Thyrotropin [Units/volume] in Serum or Plasma THYROID STIMULATING HORMONE Lab Routine Hypothyroidism, unspecified type Expected: 03/28/2024, Expires: 06/27/2024 [facility] Work Phone: Comment on above: Expected: 03/28/2024 , Expires: 06/27/2024 Start: 03-28-2024 End: 03-28-2024 Patient encounter procedure 03/28/2024 9:00 AM EDT Office Visit Podiatry [address] [place] [place] [id number] Sam Beasley [address] [place] [id number] right foot ingrown toenail Podiatry Comment on above: right foot ingrown t oenail Start: 03-25-2024 Hemoglobin A1c measurement A1C [facility] Start: 03-17-2024 ANNUAL PCP TEAM TICK SEWER MANISHA DISEASE VISIT ANNUAL PCP TEAM CHRONIC DISEASE VISIT [facility] Start: 01-23-2024 Hepatitis B surface antibody level LDL CHOLESTEROL [facility] Start: 12-25-2023 Hemoglobin A1c measurement HbA1C [facility] Start: 11-30-2023 End: 11-30-2023 Admission to same day surgery center 11/30/2023 9:50 AM EDT - 11/30/2023 10:20 AM EDT Surgery [facility] [address] [place] [address] Alexander Navarro MD [address] [place] [address] COLONOSCOPY [facility] Comment on above: COLONOSCOPY Start: 11-30-2023 End: 11-30-2023 Colonoscopy COLONOSCOPY Colitis 11/30/2023 9:50 AM EDT [facility] Start: 11-30-2023 Subsequent hospital visit by physician 11/30/2023 9:50 AM EDT Hospital Encounter [facility] [address] [place] [address] Alexander Navarro MD [address] [place] [address] [facility] Start: 10-30-2023 ANNUAL PCP TEAM TICK SEWER MANISHA DISEASE VISIT ANNUAL PCP TEAM CHRONIC DISEASE VISIT [facility] Start: 10-26-2023 End: 10-26-2024 CBC W Auto Differential panel - Blood CBC + DIFF Lab Routine Anemia, unspecified type Expected: 10/26/2023, Expires: 10/26/2024 [facility] Work Phone: Comment on above: Expected: 10/26/2023 , Expires: 10/26/2024 Start: 10-26-2023 End: 10-26-2024 Cobalamin (Vitamin B12) [Mass/volume] in Serum or Plasma VITAMIN B12 BLOOD Lab Routine Anemia, unspecified type Expected: 10/26/2023, Expires: 10/26/2024 [facility] Work Phone: Comment on above: Expected: 10/26/2023 , Expires: 10/26/2024 Start: 10-26-2023 End: 10-26-2024 Ferritin [Mass/volume] in Serum or Plasma FERRITIN BLD Lab Routine Anemia, unspecified type Expected: 10/26/2023, Expires: 10/26/2024 [facility] Work Phone: Comment on above: Expected: 10/26/2023 , Expires: 10/26/2024 Start: 10-26-2023 End: 10-26-2024 Folate [Mass/volume] in Serum or Plasma FOLATE SERUM Lab Routine Anemia, unspecified type Expected: 10/26/2023, Expires: 10/26/2024 [facility] Work Phone: Comment on above: Expected: 10/26/2023 , Expires: 10/26/2024 Start: 10-26-2023 End: 10-26-2024 Iron and Iron binding capacity panel - Serum or Plasma IRON + TIBC Lab Routine Anemia, unspecified type Expected: 10/26/2023, Expires: 10/26/2024 [facility] Work Phone: Comment on above: Expected: 10/26/2023 , Expires: 10/26/2024 Start: 10-24-2023 End: 01-23-2024 Basic metabolic 2000 panel - Serum or Plasma BASIC METABOLIC PNL Lab Routine C. difficile colitis Expected: 10/24/2023, Expires: 01/23/2024 [facility] Work Phone: Comment on above: Expected: 10/24/2023 , Expires: 01/23/2024 Start: 10-24-2023 End: 01-23-2024 CBC W Auto Differential panel - Blood CBC + DIFF Lab Routine C. difficile colitis Expected: 10/24/2023, Expires: 01/23/2024 [facility] Work Phone: Comment on above: Expected: 10/24/2023 , Expires: 01/23/2024 Start: 10-09-2023 [facility] Start: 10-09-[address] [facility] Start: 10-08-2023 ANNUAL PCP TEAM TICK SEWER MANISHA DISEASE VISIT ANNUAL PCP TEAM CHRONIC DISEASE VISIT [facility] Start: 10-08-2023 Enteric precautions [facility] Start: 10-07-2023 [facility] Start: 10-07-2023 Following clinical pathway protocol [facility] Start: 10-07-2023 Ambulation without limitation [facility] Start: 10-07-2023 Assessment of risk o f venous thromboembolism [facility] Start: 10-07-2023 Care regimes management [facility] Start: 10-07-2023 Catheterization of vein [facility] Start: 10-07-2023 Insertion of cathete r into peripheral vein [facility] Start: 10-07-2023 Measuring intake and output [facility] Start: 10-07-2023 Notification of physician [facility] Start: 10-07-2023 Providing care accor ding to standard [facility] Start: 10-07-2023 Referral to executive vice president of sales [facility] Start: 10-07-2023 [facility] Start: 10-07-2023 Troponin I measurement [facility] Start: 10-07-2023 Verification routine [facility] Start: 10-07-2023 Admission procedure [facility] Start: 10-07-2023 Hospital admission, emergency, from emergency room, medical nature [facility] Start: 08-28-2023 ANNUAL PCP TEAM TICK SEWER MANISHA DISEASE VISIT ANNUAL PCP TEAM CHRONIC DISEASE VISIT [facility] Start: 07-25-2023 Hemoglobin A1c/Hemoglobin.total in Blood HBA1C [facility] Start: 06-27-2023 3 comp foot exam completed DIABETIC FOOT EXAM [facility] Start: 06-27-2023 ANNUAL PCP TEAM TICK SEWER MANISHA DISEASE VISIT ANNUAL PCP TEAM CHRONIC DISEASE VISIT [facility] Start: 06-27-2023 BP CONTROLLED (<130/80) BP CONTROLLE D (<130/80) [facility] Start: 06-27-2023 COVID-19 VACCINE (#1) COVID-19 VACCI NE (#1) [facility] Comment on above: Postponed from 06/18 (Declined at this time) Start: 06-27-2023 Diabetic foot examination Diabetic Foot Exam [facility] Start: 06-27-2023 HEPATITIS B (1 of 3 - 3-dose series) HEPATITIS B (1 of 3 - 3-dose series) [facility] Comment on above: Postponed from 12/17 (Declined at this time) Start: 06-27-2023 Hepatitis B screening URINE ALBUMIN:CREATININE RATIO [facility] Start: 06-27-2023 Hepatitis B surface antibody level LDL CHOLESTEROL [facility] Start: 06-27-2023 PNEUMOCOCCAL (2 - PCV) PNEUMOCOCCAL (2 - PCV) [facility] Start: 06-27-2023 Pneumococcal vaccination [facility] Start: 06-27-2023 Pneumococcal Vaccine : 50+ (2 of 2 - PCV) Pneumococcal Vaccine: 50+ (2 of 2 - PCV) [facility] Start: 06-27-2023 Pneumococcal Vaccine : Age 50+ (2 of 2 - PCV) Pneumococcal Vaccine: Age 50+ (2 of 2 - PCV) [facility] Start: 06-17-2023 ANNUAL PCP TEAM TICK SEWER MANISHA DISEASE VISIT ANNUAL PCP TEAM CHRONIC DISEASE VISIT [facility] Start: 05-08-2023 COVID-19 Vaccine ( season) COVID-19 Vaccine ( season) [facility] Start: 05-08-2023 Influenza vaccination [facility] Start: 04-27-2023 FUV, Provider: Lebron Cross II, Status: Pen, Time: 8:00 AM FUV, Provider: Lebron Cross II, Status: Pen, Time: 8:00 AM [id number] Work Phone: Start: 04-22-2023 FUV, Provider: Lebron Cross II, Status: Pen, Time: 3:45 PM FUV, Provider: Lebron Cross II, Status: Pen, Time: 3:45 PM [id number] HC 232 DO Work Phone: Start: 04-07-2023 Hemoglobin A1c/Hemoglobin.total in Blood HBA1C [facility] Start: 03-22-2023 Patient discharge [facility] Start: 03-20-2023 Consultation [facility] Start: 03-18-2023 Dual pressure spontaneous ventilation support [facility] Start: 03-18-2023 Consultation [facility] Start: 03-18-2023 Bacteria identified in Blood by Culture Blood Culture [facility] Start: 03-18-2023 Following clinical pathway protocol [facility] Start: 03-18-2023 Assessment of risk o f venous thromboembolism [facility] Start: 03-18-2023 Care regimes management [facility] Start: 03-18-20[address] Fall prevention [facility] Start: 03-18-2023 Inhalation therapy procedure [facility] Start: 03-18-2023 Insertion of cathete r into peripheral vein [facility] Start: 03-18-2023 Introduction of urin chava catheter [facility] Start: 03-18-2023 Measuring intake and output [facility] Start: 03-18-20[address] Oxygen therapy [facility] Start: 03-18-2023 Providing care accor ding to standard [facility] Start: 03-18-2023 Provision of activit y privileges [facility] Start: 03-18-2023 Referral to service [facility] Start: 03-18-2023 End: 03-18-[address] [facility] Start: 03-18-2023 Verification routine [facility] Start: 03-18-2023 Admission procedure [facility] Start: 03-18-2023 Patient referral to dietitian [facility] Start: 03-17-2023 End: 03-17-2023 Blood culture [facility] Start: 03-17-2023 Prothrombin time [facility] Start: 12-09-2022 ANNUAL PCP TEAM TICK SEWER MANISHA DISEASE VISIT ANNUAL PCP TEAM CHRONIC DISEASE VISIT [facility] Start: 12-09-2022 Hepatitis B surface antibody level LDL CHOLESTEROL [facility] Start: 12-03-2022 ANNUAL PCP TEAM TICK SEWER MANISHA DISEASE VISIT ANNUAL PCP TEAM CHRONIC DISEASE VISIT [facility] Start: 10-25-2022 Patient discharge [facility] Start: 10-24-2022 Following clinical pathway protocol [facility] Start: 10-24-2022 Transfusion of blood product [facility] Start: 10-24-2022 Cardiac monitoring [facility] Start: 10-24-2022 Cardiac rehabilitati on - phase [address] [facility] Start: 10-24-2022 Cardiac rehabilitati on - phase [address] [facility] Start: 10-24-2022 Notification of physician [facility] Start: 10-24-2022 Oxygen therapy [facility] Start: 10-24-2022 Patient discharge [facility] Start: 10-24-2022 Provision of activit y privileges [facility] Start: 10-24-2022 Taking patient vital signs [facility] Start: 10-24-2022 Vascular disease ris k assessment [facility] Start: 10-24-2022 Vital signs measurements [facility] Start: 10-24-2022 [facility] Start: 10-24-2022 Admission procedure [facility] Start: 10-24-2022 Patient referral to dietitian [facility] Start: 09-17-2022 End: 11-17-2022 Hemoglobin A1c in Blood HGB A1C Lab Routine Controlled type 2 diabetes mellitus without complication, without long-term current use of insulin ([facility]) Wellness examination Expected: 09/17/2022, Expires: 11/17/2022 [facility] Work Phone: Comment on above: Expected: 09/17/2022 , Expires: 11/17/2022 Start: 09-07-2022 DEPRESSION ASSESSMENT DEPRESSION ASS ESSMENT [facility] Start: 08-28-2022 End: 09-11-2022 Influenza virus A and B RNA and SARS-CoV-2 (COVID-19) N gene panel - Respiratory specimen by SEVERO with probe detection COVID WITH FLUA+B, ROUTINE Microbiology Routine Acute upper respiratory infection Expected: 08/28/2022, Expires: 09/11/2022 [facility] Work Phone: Comment on above: Expected: 08/28/2022 , Expires: 09/11/2022 Start: 08-22-2022 Administration of he rpes zoster vaccine Zoster Vaccines (2 of 2) [facility] Start: 08-22-2022 SHINGRIX VACCINE (2 of 2) SHINGRIX VACCINE (2 of 2) [facility] Start: 08-22-2022 Zoster Vaccines (2 of 2) Zoste r Vaccines (2 of 2) [facility] Start: 08-09-2022 ANNUAL PCP TEAM TICK SEWER MANISHA DISEASE VISIT ANNUAL PCP TEAM CHRONIC DISEASE VISIT [facility] Start: 07-08-2022 End: 09-07-2022 Hemoglobin A1c in Blood HGB A1C Lab Routine Controlled type 2 diabetes mellitus without complication, without long-term current use of insulin (HCC) Expected: 07/08/2022, Expires: 09/07/2022 [facility] Work Phone: Comment on above: Expected: 07/08/2022 , Expires: 09/07/2022 Start: 06-27-2022 End: 08-27-2022 PSA/PROSTSPECAG SCRN [facility] Work Phone: Comment on above: Expected: 06/27/2022 , Expires: 08/27/2022 Start: 06-17-2022 End: 08-17-2022 ALBUMIN/CREAT RATIO RND UR ALBUMIN/CREAT RATIO RND UR Lab Routine Controlled type 2 diabetes mellitus without complication, without long-term current use of insulin (HCC) Wellness examination Expected: 06/17/2022, Expires: 08/17/2022 [facility] Work Phone: Comment on above: Expected: 06/17/2022 , Expires: 08/17/2022 Start: 06-17-2022 End: 08-17-2022 CBC panel - Blood by Automated count CBC Lab Routine Essential hypertension, benign Controlled type 2 diabetes mellitus without complication, without long-term current use of insulin (HCC) Wellness examination Expected: 06/17/2022, Expires: 08/17/2022 [facility] Work Phone: Comment on above: Expected: 06/17/2022 , Expires: 08/17/2022 Start: 06-17-2022 End: 08-17-2022 Comprehensive metabolic 2000 panel - Serum or Plasma COMP METABOLIC PANEL Lab Routine Essential hypertension, benign Hyperlipidemia, unspecified hyperlipidemia type Controlled type 2 diabetes mellitus without complication, without long-term current use of insulin (HCC) Wellness examination Expected: 06/17/2022, Expires: 08/17/2022 [facility] Work Phone: Comment on above: Expected: 06/17/2022 , Expires: 08/17/2022 Start: 06-17-2022 End: 08-17-2022 Hepatitis B virus surface Ab [Presence] in Serum by Immunoassay HEP B SURF AG SCRN Lab Routine Wellness examination Need for hepatitis B screening test Expected: 06/17/2022, Expires: 08/17/2022 [facility] Work Phone: Comment on above: Expected: 06/17/2022 , Expires: 08/17/2022 Start: 06-17-2022 End: 08-17-2022 Hepatitis C virus Ab [Presence] in Serum HEP C AB IA W/CONF SCRN Lab Routine Wellness examination Encounter for hepatitis C screening test for low risk patient Expected: 06/17/2022, Expires: 08/17/2022 [facility] Work Phone: Comment on above: Expected: 06/17/2022 , Expires: 08/17/2022 Start: 06-17-2022 End: 08-17-2022 Lipid 1996 panel - Serum or Plasma LIPID PANEL BASIC Lab Routine Hyperlipidemia, unspecified hyperlipidemia type Controlled type 2 diabetes mellitus without complication, without long-term current use of insulin (HCC) Wellness examination Expected: 06/17/2022, Expires: 08/17/2022 [facility] Work Phone: Comment on above: Expected: 06/17/2022 , Expires: 08/17/2022 Start: 06-10-2022 ADULT PREVNAR ADULT PREVNAR [facility] Comment on above: Postponed from 12/17 (Postponed To Appropriate Date) Start: 06-10-2022 ADULT PREVNAR-13 ADULT PREVNAR-13 [facility] Comment on above: Postponed from 12/17 (Postponed To Appropriate Date) Start: 06-10-2022 COVID-19 VACCINE (#1) COVID-19 VACCI NE (#1) [facility] Comment on above: Postponed from 12/17 (Declined at this time) Postponed from 06/18 (Declined at this time) Start: 06-10-2022 COVID-19 VACCINE (1) COVID-19 VACCIN E (1) [facility] Comment on above: Postponed from 12/17 (Declined at this time) Start: 06-10-2022 PNEUMOCOCCAL (2 - PCV) PNEUMOCOCCAL (2 - PCV) [facility] Start: 09-01-2022 Influenza vaccination INFLUENZA (#1) [facility] Start: 05-01-2022 OTRECHEADT, Provider : Sabine Garza, Status: Pen, Time: 8:45 AM OTRECHEADT, Provider: Sabine Garza, Status: Pen, Time[facility] 8:45 AM [facility] Work Phone: Start: 04-28-2022 OTFUADULT4, Provider : Elvira Martin, Status: Pen, Time: 8:00 AM OTFUADULT4, Provider: Elvira Martin, Status: Pen, Time: 8:00 AM [facility] Work Phone: Start: 04-23-2022 OTFUADULT4, Provider : Elvira Martin, Status: Pen, Time: 8:00 AM OTFUADULT4, Provider: Elvira Martin, Status: Pen, Time: 8:00 AM [facility] Work Phone: Start: 04-22-2022 OTFUADULT4, Provider : Elvira Martin, Status: Pen, Time: 8:00 AM OTFUADULT4, Provider: Elvira Martin, Status: Pen, Time: 8:00 AM [facility] Work Phone: Start: 04-17-2022 OTFUADULT4, Provider : Sabine Garza, Status: Pen, Time: 9:15 AM OTFUADULT4, Provider: Sabine Garza, Status: Pen, Time: 9:15 AM [facility] Work Phone: Start: 04-14-2022 OTFUADULT4, Provider : Marielos Law, Status: Pen, Time: 10:30 AM OTFUADULT4, Provider: Marielos Law, Status: Pen, Time: 10:30 AM [facility] Work Phone: Start: 04-08-2022 OTFUADULT3, Provider : Sabine Garza, Status: Pen, Time: 4:30 PM OTFUADULT3, Provider: Sabine Garza, Status: Pen, Time: 4:30 PM [facility] Work Phone: Start: 04-04-2022 Hepatitis B screening URINE ALBUMIN:CREATININE RATIO [facility] Start: 04-03-2022 OTFUADULT4, Provider : Marielos Law, Status: Pen, Time: 9:45 AM OTFUADULT4, Provider: Marielos Law, Status: Pen, Time: 9:45 AM [facility] Work Phone: Start: 03-22-2022 Hepatitis B surface antibody level LDL CHOLESTEROL [facility] Start: 03-10-2022 Hemoglobin A1c/Hemoglobin.total in Blood HBA1C [facility] Start: 12-28-2021 Adult depression screening assessment DEPRESSION SCREENING [facility] Start: 12-10-2021 End: 02-09-2022 LIPID PANEL BASIC LIPID PANEL BASIC Lab Routine Hyperlipidemia, unspecified hyperlipidemia type Hypothyroidism, unspecified type Expected: 12/10/2021, Expires: 02/09/2022 [facility] Work Phone: Comment on above: Expected: 12/10/2021 , Expires: 02/09/2022 Start: 12-10-2021 End: 02-09-2022 Thyrotropin [Units/volume] in Serum or Plasma TSH BLD Lab Routine Hyperlipidemia, unspecified hyperlipidemia type Hypothyroidism, unspecified type Expected: 12/10/2021, Expires: 02/09/2022 [facility] Work Phone: Comment on above: Expected: 12/10/2021 , Expires: 02/09/2022 Start: 12-09-2021 End: 02-08-2022 CBC W Auto Differential panel - Blood [facility] Work Phone: Comment on above: Expected: 12/09/2021 , Expires: 02/08/2022 Start: 12-09-2021 End: 02-08-2022 Comprehensive metabolic 2000 panel - Serum or Plasma [facility] Work Phone: Comment on above: Expected: 12/09/2021 , Expires: 02/08/2022 Start: 12-09-2021 End: 02-08-2022 Erythrocyte sedimentation rate [facility] Work Phone: Comment on above: Expected: 12/09/2021 , Expires: 02/08/2022 Start: 12-09-2021 End: 02-08-2022 Hemoglobin A1c/Hemoglobin.total in Blood [facility] Work Phone: Comment on above: Expected: 12/09/2021 , Expires: 02/08/2022 Start: 12-09-2021 End: 02-08-2022 LIPID PANEL, NONFASTING [facility] Work Phone: Comment on above: Expected: 12/09/2021 , Expires: 02/08/2022 Start: 12-09-2021 End: 02-08-2022 Thyrotropin [Units/volume] in Serum or Plasma [facility] Work Phone: Comment on above: Expected: 12/09/2021 , Expires: 02/08/2022 Start: 12-09-2021 End: 02-08-2022 Urate [Mass/volume] in Serum or Plasma [facility] Work Phone: Comment on above: Expected: 12/09/2021 , Expires: 02/08/2022 Start: 09-22-2021 Hemoglobin A1c/Hemoglobin.total in Blood HBA1C [facility] Start: 09-19-2021 Urine microalbumin profile DTAP,TDAP,TD (2 - Td or Tdap) [facility] Start: 09-07-2021 DEPRESSION ASSESSMENT DEPRESSION ASS ESSMENT [facility] Start: 01-22-2021 Screening for malign ant neoplasm of lung Low-dose CT Lung Cancer Screen [facility] Start: 2020 Screening for malign ant neoplasm of colon Flexible sigmoidoscopy [facility] Start: 2020 SHINGRIX VACCINE (1 of 2) SHINGRIX VACCINE (1 of 2) [facility] Start: 2020 Zoster Vaccines (1 of 2) Zoste r Vaccines (1 of 2) [facility] Start: 05-03-2018 Ambulatory 05/03/2018 Hos pital Encounter David, Ellie Salmon, DPM [address] [place] [address] [phone] [facility] Start: 12-18-2015 COLOGUARD (FIT-DNA) COLOGUARD (FIT-D NA) [facility] Start: 12-18-2015 Colonoscopy COLONOSCOPY [facility] Start: 12-18-2015 COLORECTAL CANCER SCREENING COLORECTAL CANCER SCREENING [facility] Start: 12-18-[address] COLONOGRAPHY [facility] Start: 12-18-2015 FECAL OCCULT BLOOD FECAL OCCULT BLOO D [facility] Start: 12-18-2015 Screening for malign ant neoplasm of colon [facility] Start: 12-18-2015 SIGMOIDOSCOPY SIGMOIDOSCOPY [facility] Start: 1992 DTaP/Tdap/Td Vaccine s (1 - Tdap) DTaP/Tdap/Td Vaccines (1 - Tdap) [facility] Start: 1989 HEPATITIS B (1 of 3 - Risk 3-dose series) HEPATITIS B (1 of 3 - Risk 3-dose series) [facility] Start: 1989 Hepatitis B Vaccine (1 of 3 - 19+ 3-dose series) Hepatitis B Vaccine (1 of 3 - 19+ 3-dose series) [facility] Start: 1989 Hepatitis B Vaccines (1 of 3 - 19+ 3-dose series) Hepatitis B Vaccines (1 of 3 - 19+ 3-dose series) [facility] Start: 1988 BP CONTROLLED (<130/80) BP CONTROLLE D (<130/80) [facility] Start: 1988 Diabetes mellitus screening Diabetes Screening [facility] Start: 1988 HEPATITIS C SCREENING HEPATITIS C [facility] Start: 1988 Hepatitis C screening Hepatitis C [facility] Start: 1988 HIV SCREENING HIV SCREENING [facility] Start: 1985 HIV screening HIV Screening [facility] Start: 1982 Depression screening using PHQ-9 (Patient Health Questionnaire 9) score [facility] Start: 1980 3 comp foot exam completed DIABETIC FOOT EXAM [facility] Start: 1980 Diabetic foot examination Diabetic Foot Exam [facility]: 1980 Glaucoma screening [facility] Start: 1980 Hepatitis C antibody , confirmatory test DILATED RETINAL EXAM [facility] Start: 1980 Urine screening for protein [facility] Start: 1973 History and physical examination, annual for health maintenance Wellness Visit [facility] Start: 12-18-1971 MMR Vaccines (1 of 1 - Standard series) MMR Vaccines (1 of 1 - Standard series) [facility] Start: 06-18-1971 COVID-19 VACCINE (#1) COVID-19 VACCI NE (#1) [facility] Start: 1970 HEPATITIS B (1 of 3 - 3-dose series) HEPATITIS B (1 of 3 - 3-dose series) [facility] Start: 1970 Hepatitis B Vaccine (1 of 3 - 3-dose series) Hepatitis B Vaccine (1 of 3 - 3-dose series) [facility] Start: 1970 Hepatitis B Vaccines (1 of 3 - 3-dose series) Hepatitis B Vaccines (1 of 3 - 3-dose series) [facility] Start: 1970 HIV screening HIV Screening [facility] Start: 1970 Lipid panel Lipid Panel [facility] Start: 1970 Prostate specific antigen measurement PSA Level [facility] Start: 1970 Screening for malign ant neoplasm of colon [facility] Start: 1970 Yearly Adult Physical Yearly Adult P hysical [facility] Bacteria identified in Wound by Culture ABSCESS AND WOUND CULTURE WITH GRAM STAIN Microbiology Routine Ingrowing toenail with infection 03/28/2024 10:38 AM EDT [facility] Blood culture [facility] Catheterization of l eft heart [facility] Clostridioides diffi cile toxin genes [Presence] in Stool by SEVERO with probe detection C. DIFFICILE PCR Lab Routine C. difficile colitis Ordered: 10/16/2023 [facility] Work Phone: Comment on above: Ordered: 10/16/2023 COLOGUARD COLOGUARD Lab Ro utine Screening for colon cancer Ordered: 06/27/2022 [facility] Work Phone: Comment on above: Ordered: 06/27/2022 COLOGUARD COLOGUARD Lab Ro utine Screening for colon cancer Ordered: 08/09/2024 [facility] Comment on above: Ordered: 08/09/2024 End: 09-22-2023 ECG 12 lead [facility] Work Phone: Comment on above: Once for 1 Occurrenc es starting 09/22/2023 until 09/22/2023 End: 09-22-2023 Extra Urine Ranies Tube [facility] Work Phone: Comment on above: Once for 1 Occurrenc es starting 09/22/2023 until 09/22/2023 INR in Blood by Coagulation assay [facility] Lactic acid measurement [facility] End: 06-12-2025 MR Knee - left WO contrast MRI KNEE WO IVCON LEFT Radiology Routine Chronic pain of left knee 1 Occurrences starting 05/13/2024 until 06/12/2025 [facility] Work Phone: Comment on above: 1 Occurrences starti ng 05/13/2024 until 06/12/2025 Patient Education [facility] Work Phone: Patient referral [facility] Work Phone: End: 09-22-2023 Urinalysis complete W Reflex Culture panel - Urine [facility] Service Area Work Phone: Comment on above: STAT (Lab) for 1 Occ urrences starting 09/22/2023 until 09/22/2023 End: 04-27-2025 US Lower extremity vein - left US DVT LOWER LEFT Radiology STAT Acute pain of left knee Edema of leg Pain of left lower extremity 1 Occurrences starting 03/28/2024 until 04/27/2025 [facility] Comment on above: 1 Occurrences starti ng 03/28/2024 until 04/27/2025 End: 10-15-2025 XR Knee - left 4 Views XR KNEE GENERAL 4V AP BOTH/PA BOTH/LAT/MERC LEFT Radiology Routine Pain in both knees, unspecified chronicity 1 Occurrences starting 09/15/2024 until 10/15/2025 [facility] Work Phone: Comment on above: 1 Occurrences starti ng 09/15/2024 until 10/15/2025 End: 10-15-2025 XR Lower extremity - bilateral AP W standing XR LEG FRONTAL HIP TO ANKLE MECHANICAL AXIS Radiology Routine Pain in both knees, unspecified chronicity 1 Occurrences starting 09/15/2024 until 10/15/2025 [facility] Comment on above: 1 Occurrences starti ng 09/15/2024 until 10/15/2025 End: 04-27-2025 XR Toes - right 3 Views XR TOE AP/LAT/OBL RIGHT Radiology Routine Ingrowing toenail with infection 1 Occurrences starting 03/28/2024 until 04/27/2025 [facility] Work Phone: Comment on above: 1 Occurrences starti ng 03/28/2024 until 04/27/2025 XR Toes - right 3 Views XR TOE A P/LAT/OBL RIGHT Radiology Routine Ingrowing toenail with infection 03/28/2024 11:15 AM EDT [facility] End: 05-01-2025 XR Toes - right 3 Views XR TOE AP/LAT/OBL RIGHT Radiology Routine Open wound of toe, initial encounter 1 Occurrences starting 04/01/2024 until 05/01/2025 [facility] Work Phone: Comment on above: 1 Occurrences starti ng 04/01/2024 until 05/01/2025 End: 05-14-2025 XR Toes - right 3 Views XR TOE AP/LAT/OBL RIGHT Radiology Routine Closed non-physeal fracture of phalanx of right great toe, unspecified phalanx, initial encounter 1 Occurrences starting 04/14/2024 until 05/14/2025 [facility] Work Phone: Comment on above: 1 Occurrences starti ng 04/14/2024 until 05/14/2025 [facility] Immunizations Immunization Date Immunization Notes Care Provider Venkata [facility] 08-09-2024 influenza, seasonal, injectable Ginger Lugo MD Work Phone: [facility] 08-09-2024 influenza virus vacc ine, unspecified formulation Ginger Lugo MD Work Phone: [facility] 09-25-2023 influenza, injectabl e, quadrivalent, contains preservative Ginger Lugo MD Work Phone: [facility] 09-25-2023 influenza virus vacc ine, unspecified formulation Ginger Lugo MD Work Phone: [facility] 06-27-2022 influenza, injectabl e, quadrivalent, contains preservative NA Christine PA-C Work Phone: [facility] 06-27-2022 pneumococcal polysaccharide vaccine, 23 valent NA Christine PA-C Work Phone: [facility] 06-27-2022 tetanus toxoid, redu jo diphtheria toxoid, and acellular pertussis vaccine, adsorbed NA Christine PA-C Work Phone: [facility] 06-27-2022 zoster vaccine recombinant NA Christine PA-C Work Phone: [facility] 06-27-2022 influenza virus vacc ine, unspecified formulation Ginger Lugo MD Work Phone: [facility] 06-10-2021 influenza, injectabl e, quadrivalent, contains preservative Ginger Lugo MD Work Phone: [facility] 06-10-2021 pneumococcal polysaccharide vaccine, 23 valent Ginger Lugo MD Work Phone: [facility] 07-23-2020 influenza, injectabl e, quadrivalent, preservative free [facility] 07-23-2020 influenza, seasonal, injectable Dr. Ginger Lugo Work Phone: [facility] 07-23-2020 influenza, seasonal, injectable, preservative free NA Christine PA-C Work Phone: [facility] 06-30-2019 influenza, injectabl e, quadrivalent, contains preservative Ginger Lugo MD Work Phone: [facility] Work Phone: 08-07-2017 Influenza, injectabl e, Madin [place] Canine Kidney, preservative free, quadrivalent NA Emmett WARD Work Phone: [facility] 06-07-[address] Ginger Lugo Work Phone: [facility] 06-07-2017 influenza, seasonal, injectable, preservative free NA Emmett WARD Work Phone: [facility] 07-05-2016 influenza, injectabl e, quadrivalent, contains preservative Ginger Lugo MD Work Phone: [facility] 08-16-2015 influenza, injectabl e, quadrivalent, contains preservative Ginger Lugo MD Work Phone: [facility] 06-02-2014 influenza, seasonal, injectable Ginger Lugo MD Work Phone: [facility] 09-20-2012 influenza virus vacc ine, unspecified formulation Ginger Lugo MD Work Phone: [facility] Work Phone: 09-19-2011 influenza virus vacc ine, unspecified formulation Ginger Lugo MD Work Phone: [facility] Work Phone: 09-19-2011 tetanus toxoid, redu jo diphtheria toxoid, and acellular pertussis vaccine, adsorbed Ginger Lugo MD Work Phone: [facility] Work Phone: Payers Date Payer Category Payer Self-pay [id number] 2022 Worker's Compensation [id number] 2022 Unknown [id number] 1 2019 Private Health Insurance [facility] UMR CHOICE PLUS [id number] 2019-Present [phone] [address] [address] [place] [address] [facility] [id number] .[id number] 2016 Managed Care (Private) [facility] [id number] .[id number] 5 2016 Managed Care (unspecified) [id number] .[id number] .[id number] 2016 Private Health Insurance [id number] .[id number] .[id number] 2016 Private Health Insurance [id number] 2016 Unknown 2016 Worker's Compensation [id number] 2010 Unknown SIRI [id number] 1970 Unknown [id number] 2.16840.1.716904.3.579 .2. 1970 Unknown [id number] 2.16.840.1.989024.3.579 .2. 1970 Unknown [id number] 2.16840.1.732664.3.579 .2. 1970 Unknown [id number] 2.16840.1.116168.3.579 .2. 1970 Unknown [id number] 2.16840.1.902768.3.579 .2 1970 Unknown [id number] 2.16.840.1.519395.3.579 .2.1069 1970 Unknown [id number] 2.16840.1.164993.3.579 .2.1068 1970 Unknown [id number] 2.16.840.1.175154.3.579 .2.1068 1970 Unknown [id number] 2.16.840.1.865866.3.579 .2.1068 1970 Unknown [id number] 2.16.840.1.122862.3.579 .2.1068 1970 Unknown [id number] 2.16.840.1.682917.3.579 .2.1068 1970 Unknown [id number] 2.16.840.1.007139.3.579 .2.1068 1970 Unknown [id number] 2.16.840.1.405341.3.579 .2.1068 1970 Unknown [id number] 2.16.840.1.453684.3.579 .2.1068 1970 Unknown [id number] 2.16.840.1.556204.3.579 .2.1068 1970 Unknown [id number] 2.16.840.1.235100.3.579 .2.1068 1970 Unknown [id number] 2.16.840.1.941187.3.579 .2.1068 1970 Unknown [id number] 2.16.840.1.979777.3.579 .2.1068 1970 Unknown [id number] 2.16.840.1.751683.3.579 .2.1068 1970 Unknown [id number] 2.16.840.1.485187.3.579 .2. 1970 Unknown [id number] 2.16.840.1.240751.3.579 .2 1970 Unknown [id number] 2.16.840.1.106815.3.579 .2. 1970 Unknown [id number] 2.16.840.1.232287.3.579 .2.903 1970 Unknown [id number] 2.16.840.1.016811.3.579 .2.93 1970 Unknown [id number] 2.16.840.1.283863.3.579 .2.902 1970 Unknown [id number] 2.16.840.1.094763.3.579 .2.902 1970 Unknown [id number] 2.16.840.1.613000.3.579 .2.903 1970 Unknown [id number] 2.16.840.1.159478.3.579 .2.1243 1970 Unknown [id number] 2.16.840.1.545149.3.579 .2.1243 1970 Unknown [id number] 2.16.840.1.020651.3.579 .2.1243 1970 Unknown [id number] 2.16.840.1.739315.3.579 .2.1243 Unknown [id number] 2.16.840.1.560075.3.579 .2.462 Unknown [id number] 2.16.840.1.904603.3.579 .2.462 Social History Date Type Detail Facility Tobacco smoking stat [facility] Unknown if ever smoked [facility] Start: 1970 Sex Assigned At Not on file [facility] Start: 03-18-2013 End: 06-27-2022 Tobacco smoking status CAIS Smokes tobacco daily [facility] Start: 10-08-2005 End: 10-08-2022 History of tobacco use Cigarette Smoker [facility] Start: 08-09-2021 End: 10-24-2024 Alcohol intake Current drinker of alcohol (finding) [facility] Start: 02-01-2020 End: 12-28-2020 History SDOH Alcohol Frequency 1 [facility] Start: 02-01-2020 History SDOH Social Connections Phone 3 [facility] Start: 02-01-2020 History SDOH Physical Activity DPW 0 [facility] Start: 02-01-2020 End: 12-02-2021 History SDOH Transport Med 2 [facility] Start: 02-01-2020 Education 12 [facility] Start: 09-16-2020 End: 09-22-2023 Exposure to SARS-CoV-2 (event) Not sure [facility] Start: 1970 Sex Assigned At Male [facility] Start: 03-18-2013 End: 06-09-2024 Cigarettes smoked current (pack per day) - Reported 1 [facility] Start: 03-18-2013 End: 05-04-2024 Tobacco use and exposure Smokeless tobacco non-user [facility] Work Phone: Start: 06-27-2022 Tobacco Comment 06/27/2022 5 cigs/day [facility] Start: 10-24-2022 End: 10-08-2023 Tobacco smoking consumption unknown [facility] Start: 12-19-[address] [facility] Start: 12-19-2020 Spouse/ Significant Other [facility] Start: 12-19-[address] [facility] Start: 03-17-2023 End: 09-19-2024 Tobacco smoking status NHIS Ex-smoker [facility] Start: 10-08-2005 End: 10-08-2022 History of tobacco use Current smoker [facility] Start: 03-17-2023 End: 06-09-2024 Tobacco use panel [facility] Start: 08-08-2012 End: 08-01-2022 Adult Depression Screening Assessment 0 [facility] Start: 12-01-2021 Gender identity Identifies as male gender (finding) [facility] Do you belong to any clubs or organizations such as sikhism groups, unions, fraternal or athletic groups, or school groups? Yes [facility] Are you now , , , , never or living with a partner? [facility] How often to you hav e a drink containing alcohol? Never [facility] Do you feel stress - tense, restless, nervous, or anxious, or unable to sleep at night because your mind is troubled all the time - these days [OSQ] Not at all [facility] (I/We) worried wheth er (my/our) food would run out before (I/we) got money to buy more. Never true [facility] In the past 12 month s, was there a time when you were not able to pay the mortgage or rent on time? No [facility] History of tobacco use Passive smoker [facility] Start: 10-29-2023 End: 09-19-2024 Tobacco use and exposure User of smokeless tobacco [facility] Start: 10-29-2023 End: 01-02-2025 Alcohol intake Lifetime non-drinker (finding) [facility] Start: 10-29-2023 Tobacco Comment snuff [facility] History of tobacco use Chews Tobacco [facility] Do you feel stress - tense, restless, nervous, or anxious, or unable to sleep at night because your mind is troubled all the time - these days [OSQ] Only a little [facility] Medical Equipment Procedure Code Equipment Code Equipment Original Text Equipment Identifier Dates [id number], [id number], [id number], [id number], [id number], [id number] Start: 04-04-2021 End: 11-07-2022 Comment on above: Test blood sugar(s) 1 times daily. Dx: Type 2 DM - Controlled E11.9 Insulin: No STENT,URETERAL 6FR PIG 6X26 FDA Start: 03-15-2018 Drug-eluting coronary artery stent, non-bioabsorbable -polymer-coated ()[id number] FDA Start: 10-24-2022 Drug-eluting coronary artery stent, non-bioabsorbable -polymer-coated ()[id number] FDA Start: 10-24-2022 STENT,URETERAL 6FR PIG 6X26 FDA Start: 03-15-2018 STENT,URETERAL 6FR PIG 6X26 FDA Start: 03-15-2018 STENT,URETERAL 6FR PIG 6X26 FDA Start: 03-15-2018 STENT,URETERAL 6FR PIG 6X26 FDA Start: 03-15-2018 STENT,URETERAL 6FR PIG 6X26 FDA Start: 03-15-2018 STENT,URETERAL 6FR PIG 6X26 FDA Start: 03-15-2018 Goals Date Patient Goal Desired Activity /State Functional Status Date Assessment Result Facility 10-24-2024 Total score [AUDIT-C] 0 10/24/19 25 7:57 AM EST UserAiyana [facility] 10-24-2024 Within the last year , have you been humiliated or emotionally abused in other ways by your partner or ex-partner? No 10/24/2024 7:57 AM EST User, Kazhart No [facility] 10-24-2024 Within the last year , have you been afraid of your partner or ex-partner? No 10/24/2024 7:57 AM EST User, Kazhart No [facility] 10-24-2024 Within the last year , have you been raped or forced to have any kind of sexual activity by your partner or ex-partner? No 10/24/2024 7:57 AM EST User, Kazhart No [facility] 10-24-2024 Within the last year , have you been kicked, hit, slapped, or otherwise physically hurt by your partner or ex-partner? No 10/24/2024 7:57 AM EST User, Kazhart No [facility] 10-24-2024 How often to you hav e a drink containing alcohol? Never 10/24/2024 7:57 AM EST User, Mychart Never [facility] 10-24-2024 Functional status Patient does n ot drink 10/24/2024 7:57 AM EST User, Kazhart Patient does not drink [facility] 10-24-2024 How often do you hav e 6 or more drinks on 1 occasion? Never 10/24/2024 7:57 AM EST User, Kazhart Never [facility] 10-09-2023 Functional status Ambulates;Up ad elizabeth [facility] Work Phone: 03-22-2023 Functional status Activity Abili ty [facility] Work Phone: 03-21-2023 Functional status Patient Activi ty Ambulates [facility] Work Phone: 10-25-2022 Functional status Activity Abili [facility] Work Phone: 04-02-2015 Are you deaf, or do you have serious difficulty hearing No 04/02/2015 9:57 AM Asha Orozco LPN No [facility] 04-02-2015 Are you blind, or do you have serious difficulty seeing, even when wearing glasses No 04/02/2015 9:57 AM Asha Orozco LPN No [facility] 04-02-2015 Do you have serious difficulty walking or climbing stairs No 04/02/2015 9:57 AM Asha Orozco LPN No [facility] 04-02-2015 Do you have difficul ty dressing or bathing No 04/02/2015 9:57 AM Asha Orozco LPN No [facility] 04-02-2015 Because of a physica l, mental, or emotional condition, do you have difficulty doing errands alone such as visiting a physician's office or shopping No 04/02/2015 9:57 AM Asha Orozco LPN No [facility] Mental Status Date Assessment Result Facility 10-09-2023 Cognitive function Voice/Name [facility] Work Phone: 10-07-2023 Cognitive function Voice/Name [facility] Work Phone: 03-22-2023 Cognitive function Voice/Name [facility] Work Phone: 03-17-2023 Cognitive function Level Of Cons ciousness Awake;Alert;Appropriate [facility] Work Phone: 01-31-2023 Cognitive function Level Of Cons ciousness Awake;Alert;Appropriate;Fol lows Commands 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 In light of severity of symptoms, recommended patient seek care at the ER for further evaluation. Patient receptive and agrees to take him straight there. Non-billable - deferring all evaluation/visit to the ER. documented in this encounter [facility] Work Phone: 05-26-2025 Note HNO ID: [id number] Author: MARY DALE MA Service: ? Author Type: Esol Teacher Assistant Type: Progress Notes Filed: 05/26/2025 15:32 Note Text: PT ASSESSMENT - CASTING ROOM Nick presents for Application of brace. 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 Patient electronically signed Mike DANGELO. Patient has been instructed in Care and proper application of brace. Mary Dale MA [facility] 05-26-2025 Note HNO ID: [id number] Author: TORSTEN AVILES DO Service: ? Author Type: Physician Type: Progress Notes Filed: 05/26/2025 15:15 Note Text: Subjective Nick Lopes is a 54-year-old male presenting with right knee pain. Nick reports right knee pain localized to the medial joint line, which is exacerbated by weight-bearing activities such as ascending and descending stairs. He inquires about the potential benefit of a brace to assist with stair navigation. He denies noticeable swelling in the right knee. He has been using capsaicin cream, which provides relief but causes discomfort when he sweats at work. He has also tried Voltaren gel without significant benefit. He denies using any other topical treatments. Nick has a history of left total knee arthroplasty performed on 11/15, which he reports has been successful with only occasional soreness. He notes that prior to the surgery, he had received corticosteroid injections and hyaluronic acid injections without relief. He attributes his current right knee pain to favoring his left knee before the surgery. Musculoskeletal: (+) right medial knee pain, (+) right knee pain with weight bearing, (+) right knee pain climbing stairs, (+) occasional left knee soreness, (-) noticeable right knee swelling Skin: (+) burning skin sensation at capsaicin application site during sweating Objective There were no vitals taken for this visit. General: No acute distress. MSK/Ext: Left knee with well-healed surgical scar, no bruising noted; right knee with tenderness along the medial joint line, pain elicited with weight bearing and shifting weight onto the right leg. Assessment AND Plan 1. Acute pain of right knee (M25.561) 2. Primary osteoarthritis of right knee (M17.11) Persistent medial joint line pain in the right knee consistent with primary osteoarthritis; prior imaging from September shows preserved joint space compared to preoperative left knee. - Administered intra-articular corticosteroid injection to the right knee. - Fitted patient for a medial ballistics laboratory gunsmith brace to reduce pressure on the affected compartment. - Advised continued use of topical agents (Icy Hot, capsaicin cream) and discussed combining with Voltaren gel for additional relief; instructed on proper application technique and precautions to avoid contact with eyes. - Advised patient to avoid overexertion and to use the brace during activities that involve prolonged walking or standing. 3. Presence of left artificial knee joint (Z96.652) Patient is approximately 6 months post left total knee arthroplasty with good surgical outcome and improving function. - Continue current post-operative care. Large Joint Arthro/Inj: R knee joint 05/26/2025 3:14 PM The procedure site was prepped in the usual sterile fashion. Site: R knee joint Medications: 4 mg dexAMETHasone sodium phosphate 4 mg/mL; 40 mg triamcinolone acetonide 40 mg/mL Anesthetics: 4 mL lidocaine (PF) 10 mg/mL (1 %); 4 mL BUPivacaine (PF) 0.5 % (5 mg/mL) Outcome: Tolerated well, no immediate complications Post-injection instructions were reviewed with the patient and the patient voiced understanding of these instructions. Informed Consent Consent Obtained: Verbal [facility] SIGN IN TIME OUT Recording using ambient Lumics software for draft documentation of the visit was discussed with the patient/authorized membership sales representative; all questions welcomed and answered. Patient/authorized membership sales representative agreed to proceed [facility] 05-26-2025 Note HNO ID: [id number] Author: MARY DALE MA Service: ? Author Type: Esol Teacher Assistant Type: Progress Notes Filed: 05/26/2025 15:15 Note Text: AMB ROOMING INTAKE FLOWSHEET DATA Risk Screening Do you have concerns about personal safety or safety in the home?: No Pain Pain Level: 10 Pain Location: Knee-Right Description: Aching, Sharp Duration Amount of Time: (ongoing) Frequency: Continuous Intervention/Comfort measure: Medication, Cold, Heat, Other: See comment (muscle rubs) [facility] 04-07-2025 Telephone encounter Note Prescription Refill Information The patient has been identified by name and date of : Yes Caregiver verified no other encounters exist for this prescription request: Yes Caregiver confirmed with patient/requestor that no other refills are due, in the near future, with this provider at this time: Yes The last office visit in the department: 10/24/24 Does the patient have a future office visit with this provider/department: No Requested Prescriptions Pending Prescriptions Disp Refills levothyroxine (SYNTHROID) 125 mcg tablet 90 tablet 3 Sig: Take 1 tablet by mouth once daily. metoprolol succinate ER (TOPROL XL) 50 mg 24 hr tablet 90 tablet 3 Sig: Take 1 tablet by mouth once daily. Per spouse, [facility] told her that they have no refills on levothyroxine, Please send both today, he is out of medication. Edna Carvajal April 07, 2025 12:33 PM [facility] 04-07-2025 Miscellaneous Notes Prescription Refill Information The patient has been identified by name and date of : Yes Caregiver verified no other encounters exist for this prescription request: Yes Caregiver confirmed with patient/requestor that no other refills are due, in the near future, with this provider at this time: Yes The last office visit in the department: 10/24/24 Does the patient have a future office visit with this provider/department: No Requested Prescriptions Pending Prescriptions Disp Refills levothyroxine (SYNTHROID) 125 mcg tablet 90 tablet 3 Sig: Take 1 tablet by mouth once daily. metoprolol succinate ER (TOPROL XL) 50 mg 24 hr tablet 90 tablet 3 Sig: Take 1 tablet by mouth once daily. Per spouse, [facility] told her that they have no refills on levothyroxine, Please send both today, he is out of medication. Edna Carvajal April 07, 2025 12:33 PM documented in this encounter [facility] 02-08-2025 Telephone encounter Note Sent patient no show letter #1 [facility] 02-08-2025 Miscellaneous Notes Sent patient no show letter #1 documented in this encounter [facility] 01-11-2025 Telephone encounter Note printed [facility] 01-11-2025 Miscellaneous Notes printed Has a visit scheduled 02/08/25. Do you want this to come from ortho or be temporary? documented in this encounter [facility] 01-11-2025 Telephone encounter Note Has a visit scheduled 02/08/25. Do you want this to come from ortho or be temporary? [facility] 01-10-2025 Telephone encounter Note See nurse triage 01/05/25 [facility] 01-10-2025 Miscellaneous Notes See nurse triage 01/05/25 Left message patient to call back and speak to nurse on triage. Glimepiride was d/c in October per office note done by cardiology. ROS: Having knee replacement and wanted to lose weight. Started on keto diet. Lost 30 lb. BSS down to 60. Gave up pop. So he drank a soda. BSS dropped to 50. Ate a fried chicken breast. Getting really dizzy. Tirzepatide or Mounjaro unable to afford. Stopped metformin because boss told him to. Cardiology took him off glimepiride 2 weeks ago [facility] to prevent clots so will need to call ortho office to see if continue . Jyoti Somers MA Patient has been identified by name and date of : Yes Spouse phones for refill(s): glimepiride (AMARYL) 1 mg tablet Eliquis - both not in current refill list Date of last office visit in primary care: 10/04/2024 Date of next office visit in primary care: 02/08/2025 Please advise. Thank you. Jen Young. documented in this encounter [facility] 01-05-2025 Telephone encounter Note Triage Protocol Advised: Proceed to nearest ER now. Patient agreeable. Reason for Disposition SEVERE dizziness (e.g., unable to stand, requires support to walk, feels like passing out now) Answer Assessment - Initial Assessment Questions 1. DESCRIPTION: Patient calling with moderate to severe dizziness, feeling faint when standing at times, blurry vision, back of head is pounding, and mild SOB. No fever, vomiting, diarrhea or known bleeding. Reports current blood sugar is 129. Unable to check blood pressure, does not have home monitor. 2. LIGHTHEADED: yes 3. VERTIGO: not certain 4. SEVERITY: - MODERATE: Feels unsteady when walking, but not falling; interferes with normal activities (e.g., school, work). 5. ONSET: 2 days ago and states it is worsening. 6. AGGRAVATING FACTORS: standing, activity 7. HEART RATE: has not checked 8. CAUSE: pt not certain 9. RECURRENT SYMPTOM: not like this 10. OTHER SYMPTOMS:as above Protocols used: Dizziness - [id number] [facility] 01-05-2025 Miscellaneous Notes Triage Protocol Advised: Proceed to nearest ER now. Patient agreeable. Reason for Disposition SEVERE dizziness (e.g., unable to stand, requires support to walk, feels like passing out now) Answer Assessment - Initial Assessment Questions 1. DESCRIPTION: Patient calling with moderate to severe dizziness, feeling faint when standing at times, blurry vision, back of head is pounding, and mild SOB. No fever, vomiting, diarrhea or known bleeding. Reports current blood sugar is 129. Unable to check blood pressure, does not have home monitor. 2. LIGHTHEADED: yes 3. VERTIGO: not certain 4. SEVERITY: - MODERATE: Feels unsteady when walking, but not falling; interferes with normal activities (e.g., school, work). 5. ONSET: 2 days ago and states it is worsening. 6. AGGRAVATING FACTORS: standing, activity 7. HEART RATE: has not checked 8. CAUSE: pt not certain 9. RECURRENT SYMPTOM: not like this 10. OTHER SYMPTOMS:as above Protocols used: Dizziness - [id number] documented in this encounter [facility] 01-04-2025 Telephone encounter Note Left message patient to call back and speak to nurse on triage. Glimepiride was d/c in October per office note done by cardiology. ROS: Having knee replacement and wanted to lose weight. Started on keto diet. Lost 30 lb. BSS down to 60. Gave up pop. So he drank a soda. BSS dropped to 50. Ate a fried chicken breast. Getting really dizzy. Tirzepatide or Mounjaro unable to afford. Stopped metformin because boss told him to. Cardiology took him off glimepiride 2 weeks ago [facility] total knee to prevent clots so will need to call ortho office to see if continue . Jyoti Somers MA [facility] 01-04-2025 Telephone encounter Note Patient has been identified by name and date of : Yes Spouse phones for refill(s): glimepiride (AMARYL) 1 mg tablet Eliquis - both not in current refill list Date of last office visit in primary care: 10/04/2024 Date of next office visit in primary care: 02/08/2025 Please advise. Thank you. Jen Young. [facility] 01-02-2025 History of Present illness Narrative [facility] DAILY TREATMENT NOTE Today's Date 01/02/2025 Patient Name: Nick Lopes Date of : 1970 Current Visit #: 5 Authorized Visits: 24 Case Name: S/P Left TKR History: Pre-Treatment Pain Scale: 4 Symptoms: gradually improved Functional Diagnosis: 1. S/P total knee arthroplasty, left Clinical Information: Subjective: Pt reports moderate pain this morning. He has been noticing more stiffness around the knee as well as mild pain in the lateral knee/thigh Objective Treatments: Physical Therapy Exercise Log - 01/02/25 1050 OTHER Precautions/Contraindications Supervising PT: Bryan - S/P Left TKR 11/15 Notes Visit: 4: 10:49 - 11:33 Therapeutic Exercise (86957) Intervention SciFit - x5 min L4 Parameters stair stretches 3x20 each NT Intervention TKE w/ washing[place] tube 5 sec x15 Parameters BOSU Step ups - x10 fwd, lat Intervention 6 hurdles w/ cane 4x4 reciprocal Parameters Lat, Retro ambulation - 15' x2 lap - NT Intervention Shuttle Squats - x20 62# L 31# x10 Parameters steamboats L5 x10 bilat. Intervention assisted heel slides - x10 (110 degrees) Parameters seated scoot for knee flexion DL/SL x15ft each Intervention stairs 6 steps x2 with Handrails Parameters wall squats w/ green egyptian ball x15 Parameters Access Code: [email or web address] URL: [email or web address] Date: 12/13/2024 Prepared by: Aly Winchester Exercises - Seated Knee Flexion - 2-3 x daily - 5 reps - 10 seconds hold - Supine Heel Slide with Strap - 2-3 x daily - 5 reps - 10 seconds hold - Long Sitting Quad Set with Towel Roll Under Heel - 1-2 x daily - 10 reps - 5 seconds hold - Supine Straight Leg Raises - 1-2 x daily - 10 reps - Standing Hamstring Stretch with Step - 2-3 x daily - 3 reps - 20 seconds hold - Standing Hip Flexor Stretch - 2-3 x daily - 3 reps - 20 seconds hold - Calf Stretch on Step - 2-3 x daily - 3 reps - 20 seconds hold - Standing March with Counter Support - 1 x daily - 10-15 reps - Standing Hip Abduction with Counter Support - 1 x daily - 10-15 reps - Standing Hip Extension with Counter Support - 1 x daily - 10-15 reps - Standing Knee Flexion with Counter Support - 1 x daily - 10-15 reps - Heel Raises with Counter Support - 1 x daily - 10-15 reps - Mini Squat with Counter Support - 1 x daily - 10-15 reps PT Treatment Times Therex Total Time 44 Direct Treatment Time 44 Total Treatment Time 44 Goals: Physical Therapy Ortho Goals: MOBILITY: Patient will be able to ambulate for 1 hour in community and ambulate on uneven surfaces without difficulty in 4 weeks. MOBILITY: Patient will be able to ascend/descend stairs reciprocally without difficulty in 4 weeks. IMPAIRMENT: Improve pain from 7/10 to <3/10 during prolonged standing, walking and negotiating uneven surfaces in 4 weeks IMPAIRMENT: Improve MMT of the Knee to 5/5 in 4 weeks IMPAIRMENT: Improve AROM of the Knee to 0-120 degrees in 4 weeks. OTHER: Patient will increase FOTO score from 41 to at least 60 to show MDC/MCII and expected functional outcome in 4 weeks. OTHER: Patient will be able to properly demonstrate independence with HEP in 1 week. Patient Education: Quality of movement and Verbal HEP with patient verbalized understanding. Post-Treatment Pain Scale: 5 Assessment: Patient had an expected response to treatment. Skilled Intervention demonstrated by modifications of treatment per exercise log including increased mobility and increased volume and safety interventions per exercise log. Progress towards goals as expected. Plan for Next Visit: Treatment Visit with focus on dynamic strengthening and mobility progressions Aly Winchester PT State License, [id number] documented in this encounter [facility] 12-30-2024 History of Present illness Narrative [facility] DAILY TREATMENT NOTE Today's Date 12/30/2024 Patient Name: Nick Lopes Date of : 1970 Current Visit #: 4 Authorized Visits: 24 Case Name: S/P Left TKR History: Pre-Treatment Pain Scale: 2 Symptoms: gradually improved Functional Diagnosis: 1. S/P total knee arthroplasty, left Clinical Information: Subjective: He is feeling achy and sore today. Objective AAROM flexion 112 degrees. PROM extension 0 degrees. Ambulates with mild antalgic gait on L during stance phase without AD Treatments: Physical Therapy Exercise Log - 12/30/24 1118 OTHER Precautions/Contraindications Supervising PT: Bryan - S/P Left TKR 11/15 Notes Visit : 10:40-11:18 Therapeutic Exercise ([id number]) Intervention SciFit - x5 min L4 Parameters stair stretches 3x20 each NT Intervention TKE w/ washington tube 5 sec x15 Parameters BOSU Lunges - x10 alt Intervention 8 Step ups - x10 fwd, lat Parameters Lat, Retro ambulation - 15' x2 lap Intervention Shuttle Squats - x20 62# L 31# x10 Parameters steamboats L3 x10 bilat. / mini squats on airex x10 NT Intervention assisted heel slides - x10 (112 degrees) Parameters seated scoot for knee flexion - NT Intervention stairs 6 steps x2 with Handrails Parameters Access Code: [email or web address] URL: [email or web address] Date: 12/13/2024 Prepared by: Aly Winchester Exercises - Seated Knee Flexion - 2-3 x daily - 5 reps - 10 seconds hold - Supine Heel Slide with Strap - 2-3 x daily - 5 reps - 10 seconds hold - Long Sitting Quad Set with Towel Roll Under Heel - 1-2 x daily - 10 reps - 5 seconds hold - Supine Straight Leg Raises - 1-2 x daily - 10 reps - Standing Hamstring Stretch with Step - 2-3 x daily - 3 reps - 20 seconds hold - Standing Hip Flexor Stretch - 2-3 x daily - 3 reps - 20 seconds hold - Calf Stretch on Step - 2-3 x daily - 3 reps - 20 seconds hold - Standing March with Counter Support - 1 x daily - 10-15 reps - Standing Hip Abduction with Counter Support - 1 x daily - 10-15 reps - Standing Hip Extension with Counter Support - 1 x daily - 10-15 reps - Standing Knee Flexion with Counter Support - 1 x daily - 10-15 reps - Heel Raises with Counter Support - 1 x daily - 10-15 reps - Mini Squat with Counter Support - 1 x daily - 10-15 reps PT Treatment Times Therex Total Time 38 Direct Treatment Time 38 Total Treatment Time 38 Goals: Physical Therapy Ortho Goals: MOBILITY: Patient will be able to ambulate for 1 hour in community and ambulate on uneven surfaces without difficulty in 4 weeks. MOBILITY: Patient will be able to ascend/descend stairs reciprocally without difficulty in 4 weeks. IMPAIRMENT: Improve pain from 7/10 to <3/10 during prolonged standing, walking and negotiating uneven surfaces in 4 weeks IMPAIRMENT: Improve MMT of the Knee to 5/5 in 4 weeks IMPAIRMENT: Improve AROM of the Knee to 0-120 degrees in 4 weeks. OTHER: Patient will increase FOTO score from 41 to at least 60 to show MDC/MCII and expected functional outcome in 4 weeks. OTHER: Patient will be able to properly demonstrate independence with HEP in 1 week. Patient Education: Quality of movement with patient demonstrated understanding. Post-Treatment Pain Scale: 2 Assessment: Patient had an expected response to treatment. Skilled Intervention demonstrated by modifications of treatment per exercise log including increased load and safety interventions per exercise log. Progress towards goals as expected. Plan for Next Visit: Treatment Visit with focus on stretches Alyssia Robin PTA STATE LICENSE, [id number] documented in this encounter [facility] 12-28-2024 History of Present illness Narrative [facility] DAILY TREATMENT NOTE Today's Date 12/28/2024 Patient Name: Nick Lopes Date of : 1970 Current Visit #: 3 Authorized Visits: 24 Case Name: S/P Left TKR History: Pre-Treatment Pain Scale: 2 Symptoms: gradually improved Functional Diagnosis: 1. S/P total knee arthroplasty, left Clinical Information: Subjective: Pt reports compliance with HEP 3-4 times per day. He is feeling better overall but reports constant stiffness at the knee. I provided education on the healing process and that it will take more time for the swelling to decrease resulting in less stiffness. Objective Treatments: Physical Therapy Exercise Log - 12/28/24 1031 OTHER Precautions/Contraindications Supervising PT: Bryan - S/P Left TKR 11/15 Notes Visit 2: 10:48 - 11:31 Therapeutic Exercise ([id number]) Intervention SciFit - x5 min L4 Parameters stair stretches 3x20 each Intervention TKE w/ washington tube 5 sec x15 Parameters BOSU Lunges - x10 alt Intervention 8 Step ups - x10 fwd, lat Parameters Lat, Retro ambulation - 15' x1 lap Intervention Shuttle Squats - x20 62# Parameters steamboats L3 x10 bilat. / mini squats on airex x10 Intervention assisted heel slides - x10 (108 degrees) Parameters seated scoot for knee flexion - NT Parameters Access Code: [email or web address] URL: [email or web address] Date: 12/13/2024 Prepared by: Aly Winchester Exercises - Seated Knee Flexion - 2-3 x daily - 5 reps - 10 seconds hold - Supine Heel Slide with Strap - 2-3 x daily - 5 reps - 10 seconds hold - Long Sitting Quad Set with Towel Roll Under Heel - 1-2 x daily - 10 reps - 5 seconds hold - Supine Straight Leg Raises - 1-2 x daily - 10 reps - Standing Hamstring Stretch with Step - 2-3 x daily - 3 reps - 20 seconds hold - Standing Hip Flexor Stretch - 2-3 x daily - 3 reps - 20 seconds hold - Calf Stretch on Step - 2-3 x daily - 3 reps - 20 seconds hold - Standing March with Counter Support - 1 x daily - 10-15 reps - Standing Hip Abduction with Counter Support - 1 x daily - 10-15 reps - Standing Hip Extension with Counter Support - 1 x daily - 10-15 reps - Standing Knee Flexion with Counter Support - 1 x daily - 10-15 reps - Heel Raises with Counter Support - 1 x daily - 10-15 reps - Mini Squat with Counter Support - 1 x daily - 10-15 reps PT Treatment Times Therex Total Time 43 Direct Treatment Time 43 Total Treatment Time 43 Goals: Physical Therapy Ortho Goals: MOBILITY: Patient will be able to ambulate for 1 hour in community and ambulate on uneven surfaces without difficulty in 4 weeks. MOBILITY: Patient will be able to ascend/descend stairs reciprocally without difficulty in 4 weeks. IMPAIRMENT: Improve pain from 7/10 to <3/10 during prolonged standing, walking and negotiating uneven surfaces in 4 weeks IMPAIRMENT: Improve MMT of the Knee to 5/5 in 4 weeks IMPAIRMENT: Improve AROM of the Knee to 0-120 degrees in 4 weeks. OTHER: Patient will increase FOTO score from 41 to at least 60 to show MDC/MCII and expected functional outcome in 4 weeks. OTHER: Patient will be able to properly demonstrate independence with HEP in 1 week. Patient Education: HEP Adherence and Diagnosis and recovery specific education with patient verbalized understanding. Post-Treatment Pain Scale: 2 Assessment: Patient had an expected response to treatment. Skilled Intervention demonstrated by modifications of treatment per exercise log including increased mobility, increased volume, and assessment of patient's response and safety interventions per exercise log. Progress towards goals as expected. Plan for Next Visit: Treatment Visit with focus on standing PREs Aly Winchester PT State License, [id number] documented in this encounter [facility] 12-26-2024 History of Present illness Narrative [facility] DAILY TREATMENT NOTE Today's Date 12/26/2024 Patient Name: Nick Lopes Date of : 1970 Current Visit #: 2 Authorized Visits: 24 Case Name: S/P Left TKR History: Pre-Treatment Pain Scale: 4 Symptoms: gradually improved Functional Diagnosis: 1. S/P total knee arthroplasty, left Clinical Information: Subjective: Pt reports avg pain today. Compliant with HEP. Pt doing steps with step to pattern Objective Treatments: Physical Therapy Exercise Log - 12/26/24 1041 OTHER Precautions/Contraindications Supervising PT: Bryan - S/P Left TKR 11/15 Notes Visit 1: 10:41 - 11:24 Therapeutic Exercise ([id number]) Intervention SciFit - x5 min L4 Parameters stair stretches 3x20 each Intervention TKE - 3 sec x10 Parameters BOSU Lunges - x10 alt Intervention 8 Step ups - x10 fwd, lat Parameters Lat, Retro ambulation - 15' x1 lap Intervention Shuttle Squats - x20 62# Parameters quad sets w/ heel prop - 5 sec x10 Intervention assisted heel slides - x10 (106 degrees) Parameters seated scoot for knee flexion - Nt Parameters Access Code: [email or web address] URL: [email or web address] Date: 12/13/2024 Prepared by: Aly Winchester Exercises - Seated Knee Flexion - 2-3 x daily - 5 reps - 10 seconds hold - Supine Heel Slide with Strap - 2-3 x daily - 5 reps - 10 seconds hold - Long Sitting Quad Set with Towel Roll Under Heel - 1-2 x daily - 10 reps - 5 seconds hold - Supine Straight Leg Raises - 1-2 x daily - 10 reps - Standing Hamstring Stretch with Step - 2-3 x daily - 3 reps - 20 seconds hold - Standing Hip Flexor Stretch - 2-3 x daily - 3 reps - 20 seconds hold - Calf Stretch on Step - 2-3 x daily - 3 reps - 20 seconds hold - Standing March with Counter Support - 1 x daily - 10-15 reps - Standing Hip Abduction with Counter Support - 1 x daily - 10-15 reps - Standing Hip Extension with Counter Support - 1 x daily - 10-15 reps - Standing Knee Flexion with Counter Support - 1 x daily - 10-15 reps - Heel Raises with Counter Support - 1 x daily - 10-15 reps - Mini Squat with Counter Support - 1 x daily - 10-15 reps PT Treatment Times Therex Total Time 43 Direct Treatment Time 43 Total Treatment Time 43 Goals: Physical Therapy Ortho Goals: MOBILITY: Patient will be able to ambulate for 1 hour in community and ambulate on uneven surfaces without difficulty in 4 weeks. MOBILITY: Patient will be able to ascend/descend stairs reciprocally without difficulty in 4 weeks. IMPAIRMENT: Improve pain from 7/10 to <3/10 during prolonged standing, walking and negotiating uneven surfaces in 4 weeks IMPAIRMENT: Improve MMT of the Knee to 5/5 in 4 weeks IMPAIRMENT: Improve AROM of the Knee to 0-120 degrees in 4 weeks. OTHER: Patient will increase FOTO score from 41 to at least 60 to show MDC/MCII and expected functional outcome in 4 weeks. OTHER: Patient will be able to properly demonstrate independence with HEP in 1 week. Patient Education: Quality of movement with patient demonstrated understanding. Post-Treatment Pain Scale: 4 Assessment: Patient had an expected response to treatment. Skilled Intervention demonstrated by modifications of treatment per exercise log including increased load and safety interventions per exercise log. Progress towards goals as expected. Plan for Next Visit: Treatment Visit with focus on strengthening and ROM progressions Teja Lopez PTA STATE LICENSE, [id number] documented in this encounter [facility] 12-13-2024 History of Present illness Narrative [facility] Evaluation Today's Date 12/13/2024 Patient Name: Nick Lopes Date of : 1970 Case Name: S/P Left TKR Functional Diagnosis: 1. S/P total knee arthroplasty, left Clinical Information: Subjective Referring Diagnosis: S/P Left TKR Follow-up with physician: 01/11/2025 History of Present Illness Surgery Date: 11/15/2024 Days Post-Op: 28 Subjective History: Pt is beginning outpatient PT s/p left TKR. He has completed about 3 weeks of PT and reports measuring up to 95 degrees of flexion. He has been exercising on his own the past week. He arrived today ambulating with a SPC. He reports walking w/o AD occasionally in the home. He states pain has been tolerable recently but he has been experiencing fluctuating levels of swelling, stiffness and fatigue. He denies numbness/tingling in the LE. Pain Scale Pain location: knee Average Pain: 4/10 Pain at highest: 7/10 Aggravating factors: standing, walking, ROM exercises Easing factors: rest/sitting, ice, propping, medication 24 Hour Symptom Behavior Morning Pain: sudden Afternoon Pain: better End of day pain: worse Personal Goals: Manage pain Improve ROM and strength Improve standing tolerance and mobility Functional Mobility Status Functional Limitations: limited mobility and standing Current Mobility Status: Community: cane and independent Bed Transfer: modified independent Car Transfer: modified independent Current Activity Level: low active Premorbid Activity Level: active Social Support: Religion, social, or cultural considerations to be made aware of before starting treatment: No Home Environment Current Home Environment: Setup: multi-level house Entry: steps with railing Activities of Daily Living: to be assessed Instrumental Activities of Daily Livingto be assessed Vocational Task Requirements: prolonged standing, lifting/carrying, stairs Does patient plan to return to work? yes Sleep Assessment Sleep disturbance: Sleep Disturbance Red Flags: None Comments: Barriers to Care: None Religion, social, or cultural considerations to be made aware of before starting treatment: No Knee Left Knee Range of Motion: Flexion Active: 74 Passive: 98 Extension Active: -2 (lacking) Muscle Strength Flexion: 4+ Extension: 4+ FOTO: 41 Ankle/Foot Left Ankle/Foot Left Ankle/Foot WFL Treatments: Physical Therapy Exercise Log - 12/13/24 1149 OTHER Precautions/Contraindications Supervising PT: Bryan - S/P Left TKR 11/15 Notes Eval: 11:32 - 12:10 Therapeutic Exercise ([id number]) Intervention initial HEP: Parameters stair stretches 3x20 each Intervention seated scoot for knee flexion Parameters quad sets w/ heel prop Intervention SLR Parameters assisted heel slides Intervention sink ex x10 bilat. Parameters Access Code: [email or web address] URL: [email or web address] Date: 12/13/2024 Prepared by: Aly Winchester Exercises - Seated Knee Flexion - 2-3 x daily - 5 reps - 10 seconds hold - Supine Heel Slide with Strap - 2-3 x daily - 5 reps - 10 seconds hold - Long Sitting Quad Set with Towel Roll Under Heel - 1-2 x daily - 10 reps - 5 seconds hold - Supine Straight Leg Raises - 1-2 x daily - 10 reps - Standing Hamstring Stretch with Step - 2-3 x daily - 3 reps - 20 seconds hold - Standing Hip Flexor Stretch - 2-3 x daily - 3 reps - 20 seconds hold - Calf Stretch on Step - 2-3 x daily - 3 reps - 20 seconds hold - Standing March with Counter Support - 1 x daily - 10-15 reps - Standing Hip Abduction with Counter Support - 1 x daily - 10-15 reps - Standing Hip Extension with Counter Support - 1 x daily - 10-15 reps - Standing Knee Flexion with Counter Support - 1 x daily - 10-15 reps - Heel Raises with Counter Support - 1 x daily - 10-15 reps - Mini Squat with Counter Support - 1 x daily - 10-15 reps PT Treatment Times Therex Total Time 15 Direct Treatment Time 15 Total Treatment Time 38 Goals: Physical Therapy Ortho Goals: MOBILITY: Patient will be able to ambulate for 1 hour in community and ambulate on uneven surfaces without difficulty in 4 weeks. MOBILITY: Patient will be able to ascend/descend stairs reciprocally without difficulty in 4 weeks. IMPAIRMENT: Improve pain from 7/10 to <3/10 during prolonged standing, walking and negotiating uneven surfaces in 4 weeks IMPAIRMENT: Improve MMT of the Knee to 5/5 in 4 weeks IMPAIRMENT: Improve AROM of the Knee to 0-120 degrees in 4 weeks. OTHER: Patient will increase FOTO score from 41 to at least 60 to show MDC/MCII and expected functional outcome in 4 weeks. OTHER: Patient will be able to properly demonstrate independence with HEP in 1 week. CPT Code 96904 Low 53179 Moderate 99947 High History 0 1-2 3+ Comorbidities: DM, HTN, OA, and hypothyroidism, Personal factors: chronicity or severity of the current condition Examination of body systems (elements of body structures & functions, activity limitations, and/or participation restrictions) 1-2 elements 3+ elements 4+ elements See below clinical impression Clinical Presentation Stable Evolving Unstable As evidenced by reproduction of or changes in symptoms with certain movements and improving symptom level since surgical intervention Decision Making Low (FOTO >/= 69) Moderate (FOTO 34 - 68) High (FOTO </= 33) FOTO score= 41 Pt is a 53 y.o. male who presents to PT services s/p left TKR. Upon assessment, pt has been found with the following impairments: decreased ROM, decreased strength, impaired dynamic balance, antalgic gait, swelling, decreased stability, and pain. 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 The pt would benefit from skilled PT services focused on the above listed impairments and limitations in order to safely progress pt to their desired level of function. Pt to be discharged from OP PT services if/when goals are met, if they fail to make progress with conservative management in PT, if their level of progress plateaus, or if they do not maintain compliance with attendance or HEP. At this time, it is my clinical judgment that services are medically necessary. Plan of Care Frequency of Visits: 3 times per week Duration: 4 weeks Interventions: Therapeutic Exercise (93016), Neuromuscular Re-Education (97597), Manual Therapy (33582), Therapeutic/ Functional Activities (81272), Gait Training (46968), and Vasopneumatic (40407) Rehab Potential: good Patient Education Provided Pt was educated on the benefits of therapy and importance of compliance with sessions and HEP for rehabilitation. Pt was also educated on treatment diagnosis, POC, and frequency/duration of treatment. Aly Winchester, [place] State License, [id number] documented in this encounter [facility] 11-07-2024 Instructions Nuha Mosquera APRN.CNP - 11/07/2024 11:37 AM EST 1) No change in medications 2) Keep follow up with Dr. Lugo in February documented in this encounter [facility] 11-07-2024 Note HNO ID: [id number] Author: NUHA MOSQUERA APRN.CNP Service: ? Author Type: Nurse Practitioner Type: Progress Notes Filed: 11/07/2024 11:39 Note Text: VIRTUAL VISIT PROGRESS NOTE This is a virtual visit using [employer] Z[employer] Video Visit. It required patient-provider interaction for the medical decision making as documented below. I have communicated my name and active licensure. The patient's identity and physical location were verified at the time of this visit. Either the patient or their legal membership sales representative has been informed of the risks and benefits of -- and alternatives to -- treatment through a remote evaluation and consents to proceed with the evaluation remotely. Nick Lopes is a 53 year old male seen for dizziness. HISTORY REVIEWED (electronic chart updated): PAST MEDICAL HISTORY Diagnosis Date Elevated white blood cell count has been reviewed by hematology. will follow periodically Fam hx-cardiovas dis NEC n/a father, of [place] at 45 Hypothyroid Other and unspecified hyperlipidemia [...] ATTACK AT AGE 45 Heart Mother no blockages, hyperlipidemia Breast Cancer Mother Diabetes Maternal Grandmother Breast Cancer Paternal Grandfather Hypertension Mother around age 60 Social History Tobacco Use Smoking status: Former Current packs/day: 0.00 Average packs/day: 1 pack/day for 17.0 years (17.0 ttl pk-yrs) Types: Cigarettes Start date: 10/08/2005 Quit date: 10/08/2022 Years since quittin.0 Smokeless tobacco: Current Types: Chew Tobacco comments: 06/27/2022 5 cigs/day Vaping Use Vaping status: Never Used Substance Use Topics Alcohol use: Yes Comment: occasionally (once every 2-3) Drug use: No Current Outpatient Medications Medication Sig isosorbide dinitrate (ISORDIL) 5 mg tablet Take 1 tablet by mouth two times a day. atorvastatin (LIPITOR) 40 mg tablet Take 1 tablet by mouth daily at bedtime. For cholesterol. metFORMIN ER (GLUCOPHAGE XR) 500 mg 24 hr tablet Take 2 tablets by mouth daily with breakfast. PARoxetine (PAXIL) 40 mg tablet Take 1 tablet by mouth once daily. tirzepatide (MOUNJARO) 2.5 mg/0.5 mL pen injector Inject 2.5 mg subcutaneously one time a week. Capsaicin 0.1 % crea Apply to affected area two times a day. amLODIPine (NORVASC) 10 mg tablet Take 1 tablet by mouth once daily. aspirin, enteric coated (ASPIRIN, ENTERIC COATED) 81 mg EC tablet Take 1 tablet by mouth once daily. levothyroxine (SYNTHROID) 125 mcg tablet Take 1 tablet by mouth once daily. folic acid 1 mg tablet Take 1 tablet by mouth once daily. iron fum,ps/folic acid/vitC/B3 (IRON FOLATE-F ORAL) Take by mouth. blood sugar diagnostic (BLOOD GLUCOSE TEST) test strip Test blood sugar(s) 1 times daily. Dx: Type 2 DM - Uncontrolled E11.65 Insulin: No Lancets Test blood sugar(s) 1 times daily. Dx: Type 2 DM - Uncontrolled E11.65 Insulin: No metoprolol succinate ER (TOPROL XL) 50 mg 24 hr tablet Take 1 tablet by mouth once daily. Lancets lancets Test blood sugar(s) 1 times daily. Dx: Type 2 DM - Controlled E11.9 Insulin: No blood sugar diagnostic (BLOOD GLUCOSE TEST) test strip Test blood sugar(s) 1 times daily. Dx: Type 2 DM - Controlled E11.9 Insulin: No nitroglycerin sublingual (NITROQUICK) 0.4 mg SL tablet Nitroglycerin Active 0.4 MG SL Q5M October 24, 2022 12:00am nystatin-triamcinolone (MYCOLOG) ointment Apply sparingly to groin and penile rash twice daily for irritation/infection up to 2 weeks and then take 1 week off. COMPOUNDED PRESCRIPTION Initiate BiPAP @ 22/16 cm of water with humidification mask (per patient preference) optional chin strap (if indicated) and lifetime supplies DX: JOSIAH 327.23 No current facility-administered medications for this visit. ALLERGIES No Known Allergies Sitting in car with Having knee replacement and wanted to lose weight. Started on keto diet. Lost 30 lb. BSS 120-125 Gave up pop. So he drank a soda. BSS dropped to 50. Ate a fried chicken breast. Not dizzy now. Tirzepatide or Mounjaro unable to afford. Back metformin SA 1000 mg daily Cardiology took him off glimepiride 2 weeks ago. No more low blood sugars PHYSICAL EXAMINATION: VIDEO EXAM: (if completed, performed via video enabled technology) GENERAL: alert and appropriate, in no distress, well-hydrated, well nourished, and happy, smiling, interactive ASSESSMENT: ASSESSMENT/PLAN: 1. Hypoglycemia - ICD9: 251.2, (more content not included)... [facility] 11-07-2024 History of Present illness Narrative VIRTUAL VISIT PROGRESS NOTE This is a virtual visit using [employer] Video Visit. It required patient-provider interaction for the medical decision making as documented below. I have communicated my name and active licensure. The patient's identity and physical location were verified at the time of this visit. Either the patient or their legal membership sales representative has been informed of the risks and benefits of -- and alternatives to -- treatment through a remote evaluation and consents to proceed with the evaluation remotely. Nick Lopes is a 53 year old male seen for dizziness. HISTORY REVIEWED (electronic chart updated): PAST MEDICAL HISTORY Diagnosis Date Elevated white blood cell count has been reviewed by hematology. will follow periodically Fam hx-cardiovas dis NEC n/a father, of [place] at 45 Hypothyroid Other and unspecified hyperlipidemia [...] ATTACK AT AGE 45 Heart Mother no blockages, hyperlipidemia Breast Cancer Mother Diabetes Maternal Grandmother Breast Cancer Paternal Grandfather Hypertension Mother around age 60 Social History Tobacco Use Smoking status: Former Current packs/day: 0.00 Average packs/day: 1 pack/day for 17.0 years (17.0 ttl pk-yrs) Types: Cigarettes Start date: 10/08/2005 Quit date: 10/08/2022 Years since quittin.0 Smokeless tobacco: Current Types: Chew Tobacco comments: 06/27/2022 5 cigs/day Vaping Use Vaping status: Never Used Substance Use Topics Alcohol use: Yes Comment: occasionally (once every 2-3) Drug use: No Current Outpatient Medications Medication Sig isosorbide dinitrate (ISORDIL) 5 mg tablet Take 1 tablet by mouth two times a day. atorvastatin (LIPITOR) 40 mg tablet Take 1 tablet by mouth daily at bedtime. For cholesterol. metFORMIN ER (GLUCOPHAGE XR) 500 mg 24 hr tablet Take 2 tablets by mouth daily with breakfast. PARoxetine (PAXIL) 40 mg tablet Take 1 tablet by mouth once daily. tirzepatide (MOUNJARO) 2.5 mg/0.5 mL pen injector Inject 2.5 mg subcutaneously one time a week. Capsaicin 0.1 % crea Apply to affected area two times a day. amLODIPine (NORVASC) 10 mg tablet Take 1 tablet by mouth once daily. aspirin, enteric coated (ASPIRIN, ENTERIC COATED) 81 mg EC tablet Take 1 tablet by mouth once daily. levothyroxine (SYNTHROID) 125 mcg tablet Take 1 tablet by mouth once daily. folic acid 1 mg tablet Take 1 tablet by mouth once daily. iron fum,ps/folic acid/vitC/B3 (IRON FOLATE-F ORAL) Take by mouth. blood sugar diagnostic (BLOOD GLUCOSE TEST) test strip Test blood sugar(s) 1 times daily. Dx: Type 2 DM - Uncontrolled E11.65 Insulin: No Lancets Test blood sugar(s) 1 times daily. Dx: Type 2 DM - Uncontrolled E11.65 Insulin: No metoprolol succinate ER (TOPROL XL) 50 mg 24 hr tablet Take 1 tablet by mouth once daily. Lancets lancets Test blood sugar(s) 1 times daily. Dx: Type 2 DM - Controlled E11.9 Insulin: No blood sugar diagnostic (BLOOD GLUCOSE TEST) test strip Test blood sugar(s) 1 times daily. Dx: Type 2 DM - Controlled E11.9 Insulin: No nitroglycerin sublingual (NITROQUICK) 0.4 mg SL tablet Nitroglycerin Active 0.4 MG SL Q5M October 24, 2022 12:00am nystatin-triamcinolone (MYCOLOG) ointment Apply sparingly to groin and penile rash twice daily for irritation/infection up to 2 weeks and then take 1 week off. COMPOUNDED PRESCRIPTION Initiate BiPAP @ 22/16 cm of water with humidification mask (per patient preference) optional chin strap (if indicated) and lifetime supplies DX: JOSIAH 327.23 No current facility-administered medications for this visit. ALLERGIES No Known Allergies Sitting in car with Having knee replacement and wanted to lose weight. Started on keto diet. Lost 30 lb. BSS 120-125 Gave up pop. So he drank a soda. BSS dropped to 50. Ate a fried chicken breast. Not dizzy now. Tirzepatide or Mounjaro unable to afford. Back metformin SA 1000 mg daily Cardiology took him off glimepiride 2 weeks ago. No more low blood sugars PHYSICAL EXAMINATION: VIDEO EXAM: (if completed, performed via video enabled technology) GENERAL: alert and appropriate, in no distress, well-hydrated, well nourished, and happy, smiling, interactive ASSESSMENT: ASSESSMENT/PLAN: 1. Hypoglycemia - ICD9: 251.2, ICD10: E16.2 No change Much improved. Dizziness resolved with improved blood sugar Morbid Obesity Class 3 - week 3 of Mounjaro 2. Dizziness - ICD9: 780.4, ICD10: R42 Due to hypoglycemia - Improved with MetforminSA once a day and off glimepiride PLAN: No change in medications Continue Metformin SA 1,000 mg daily and Mounjaro There are no Patient Instructions on file for this visit. I spent a total of 13 minutes on the date of the service which included preparing to see the patient, [id number] patient care, completing clinical documentation, obtaining and/or reviewing separately obtained history, performing a medically appropriate examination, counseling and educating the patient/family/caregiver, and ordering medications, tests, or procedures Nuha Mosquera APRN.MILL [employer]ATFORM SUPERVISOR documented in this encounter [facility] 11-07-2024 Telephone encounter Note Prescription Refill Information The patient has been identified by name and date of : Yes Caregiver verified no other encounters exist for this prescription request: Yes Caregiver confirmed with patient/requestor that no other refills are due, in the near future, with this provider at this time: Yes The last office visit in the department: 10/24/24 Does the patient have a future office visit with this provider/department: Yes Called and confirmed this with pharmacy. Requested Prescriptions Pending Prescriptions Disp Refills isosorbide dinitrate (ISORDIL) 5 mg tablet 60 tablet 5 Sig: Take 1 tablet by mouth two times a day. atorvastatin (LIPITOR) 40 mg tablet 90 tablet 0 Sig: Take 1 tablet by mouth daily at bedtime. For cholesterol. Refused Prescriptions Disp Refills metoprolol succinate ER (TOPROL XL) 50 mg 24 hr tablet 90 tablet 3 Sig: Take 1 tablet by mouth once daily. folic acid 1 mg tablet 90 tablet 3 Sig: Take 1 tablet by mouth once daily. amLODIPine (NORVASC) 10 mg tablet 90 tablet 3 Sig: Take 1 tablet by mouth once daily. Asha Sy LPN November 07, 2024 10:11 AM [facility] 11-07-2024 Miscellaneous Notes Prescription Refill Information The patient has been identified by name and date of : Yes Caregiver verified no other encounters exist for this prescription request: Yes Caregiver confirmed with patient/requestor that no other refills are due, in the near future, with this provider at this time: Yes The last office visit in the department: 10/24/24 Does the patient have a future office visit with this provider/department: Yes Called and confirmed this with pharmacy. Requested Prescriptions Pending Prescriptions Disp Refills isosorbide dinitrate (ISORDIL) 5 mg tablet 60 tablet 5 Sig: Take 1 tablet by mouth two times a day. atorvastatin (LIPITOR) 40 mg tablet 90 tablet 0 Sig: Take 1 tablet by mouth daily at bedtime. For cholesterol. Refused Prescriptions Disp Refills metoprolol succinate ER (TOPROL XL) 50 mg 24 hr tablet 90 tablet 3 Sig: Take 1 tablet by mouth once daily. folic acid 1 mg tablet 90 tablet 3 Sig: Take 1 tablet by mouth once daily. amLODIPine (NORVASC) 10 mg tablet 90 tablet 3 Sig: Take 1 tablet by mouth once daily. Asha Sy LPN November 07, 2024 10:11 AM documented in this encounter [facility] 10-26-2024 Telephone encounter Note Prescription Refill Information The patient has been identified by name and date of : Yes Caregiver verified no other encounters exist for this prescription request: Yes Caregiver confirmed with patient/requestor that no other refills are due, in the near future, with this provider at this time: Yes The last office visit in the department: 10/24/24 Does the patient have a future office visit with this provider/department: Yes, 11/07/24 Requested Prescriptions Pending Prescriptions Disp Refills atorvastatin (LIPITOR) 40 mg tablet 90 tablet 0 Sig: Take 1 tablet by mouth daily at bedtime. For cholesterol. Ronnie Barrow LPN October 26, 2024 12:49 PM [facility] 10-26-2024 Miscellaneous Notes Prescription Refill Information The patient has been identified by name and date of : Yes Caregiver verified no other encounters exist for this prescription request: Yes Caregiver confirmed with patient/requestor that no other refills are due, in the near future, with this provider at this time: Yes The last office visit in the department: 10/24/24 Does the patient have a future office visit with this provider/department: Yes, 11/07/24 Requested Prescriptions Pending Prescriptions Disp Refills atorvastatin (LIPITOR) 40 mg tablet 90 tablet 0 Sig: Take 1 tablet by mouth daily at bedtime. For cholesterol. Ronnie Barrow LPN October 26, 2024 12:49 PM documented in this encounter [facility] 10-24-2024 Instructions Nuha Mosquera APRN.CNP - 10/24/2024 10:04 AM EST 1) Cut Metformin ER back to 2 tablets a day 2) Continue levothyroxine, paxil, and metoprolol day of surgery 3) Follow up first week in November documented in this encounter [facility] 10-24-2024 Note HNO ID: [id number] Author: NUHA MOSQUERA APRN.CNP Service: ? Author Type: Nurse Practitioner Type: Progress Notes Filed: 10/24/2024 10:08 Note Text: VIRTUAL VISIT PROGRESS NOTE This is a virtual visit using [employer] Z[employer] Video Visit. It required patient-provider interaction for the medical decision making as documented below. I have communicated my name and active licensure. The patient's identity and physical location were verified at the time of this visit. Either the patient or their legal membership sales representative has been informed of the risks and benefits of -- and alternatives to -- treatment through a remote evaluation and consents to proceed with the evaluation remotely. Nick Lopes is a 53 year old male seen for Problems with blood sugars. HISTORY REVIEWED (electronic chart updated): PAST MEDICAL HISTORY Diagnosis Date Elevated white blood cell count has been reviewed by hematology. will follow periodically Fam hx-cardiovas dis NEC n/a father, of [place] at 45 Hypothyroid Other and unspecified hyperlipidemia [...] ATTACK AT AGE 45 Heart Mother no blockages, hyperlipidemia Breast Cancer Mother Diabetes Maternal Grandmother Breast Cancer Paternal Grandfather Hypertension Mother around age 60 Social History Tobacco Use Smoking status: Former Current packs/day: 0.00 Average packs/day: 1 pack/day for 17.0 years (17.0 ttl pk-yrs) Types: Cigarettes Start date: 10/08/2005 Quit date: 10/08/2022 Years since quittin.0 Smokeless tobacco: Current Types: Chew Tobacco comments: 06/27/2022 5 cigs/day Vaping Use Vaping status: Never Used Substance Use Topics Alcohol use: Yes Comment: occasionally (once every 2-3) Drug use: No Current Outpatient Medications Medication Sig PARoxetine (PAXIL) 40 mg tablet Take 1 tablet by mouth once daily. tirzepatide (MOUNJARO) 2.5 mg/0.5 mL pen injector Inject 2.5 mg subcutaneously one time a week. Capsaicin 0.1 % crea Apply to affected area two times a day. amLODIPine (NORVASC) 10 mg tablet Take 1 tablet by mouth once daily. aspirin, enteric coated (ASPIRIN, ENTERIC COATED) 81 mg EC tablet Take 1 tablet by mouth once daily. levothyroxine (SYNTHROID) 125 mcg tablet Take 1 tablet by mouth once daily. atorvastatin (LIPITOR) 40 mg tablet Take 1 tablet by mouth daily at bedtime. For cholesterol. folic acid 1 mg tablet Take 1 tablet by mouth once daily. diclofenac (VOLTAREN ARTHRITIS PAIN) 1 % topical gel Apply 2 g to affected area four times daily. (Patient not taking: Reported on 08/03/2024) iron fum,ps/folic acid/vitC/B3 (IRON FOLATE-F ORAL) Take by mouth. blood sugar diagnostic (BLOOD GLUCOSE TEST) test strip Test blood sugar(s) 1 times daily. Dx: Type 2 DM - Uncontrolled E11.65 Insulin: No Lancets Test blood sugar(s) 1 times daily. Dx: Type 2 DM - Uncontrolled E11.65 Insulin: No metFORMIN ER (GLUCOPHAGE XR) 500 mg 24 hr tablet Take 2 tablets by mouth two times a day. metoprolol succinate ER (TOPROL XL) 50 mg 24 hr tablet Take 1 tablet by mouth once daily. isosorbide dinitrate (ISORDIL) 5 mg tablet Take 1 tablet by mouth two times a day. Lancets lancets Test blood sugar(s) 1 times daily. Dx: Type 2 DM - Controlled E11.9 Insulin: No glimepiride (AMARYL) 2 mg tablet Take 1 tablet by mouth daily with breakfast. blood sugar diagnostic (BLOOD GLUCOSE TEST) test strip Test blood sugar(s) 1 times daily. Dx: Type 2 DM - Controlled E11.9 Insulin: No clopidogrel (PLAVIX) 75 mg tablet Take 75 mg by mouth once daily. nitroglycerin sublingual (NITROQUICK) 0.4 mg SL tablet Nitroglycerin Active 0.4 MG SL Q5M October 24, 2022 12:00am nystatin-triamcinolone (MYCOLOG) ointment Apply sparingly to groin and penile rash twice daily for irritation/infection up to 2 weeks and then take 1 week off. COMPOUNDED PRESCRIPTION Initiate BiPAP @ 22/16 cm of water with humidification mask (per patient preference) optional chin strap (if indicated) and lifetime supplies DX: JOSIAH 327.23 No current facility-administered medications for this visit. ALLERGIES No Known Allergies ROS: Having knee replacement and wanted to lose weight. Started on keto diet. Lost 30 lb. BSS down to 60. Gave up pop. So he drank a soda. BSS dropped to 50. Ate a fried chicken breast. Getting really dizzy. Tirzepatide or Mounjaro unable to afford. Stopped metformin because boss told him to. Cardiology took him off glimepiride 2 (more content not included)... [facility] 10-24-2024 History of Present illness Narrative VIRTUAL VISIT PROGRESS NOTE This is a virtual visit using [employer] Video Visit. It required patient-provider interaction for the medical decision making as documented below. I have communicated my name and active licensure. The patient's identity and physical location were verified at the time of this visit. Either the patient or their legal membership sales representative has been informed of the risks and benefits of -- and alternatives to -- treatment through a remote evaluation and consents to proceed with the evaluation remotely. Nick Lopes is a 53 year old male seen for Problems with blood sugars. HISTORY REVIEWED (electronic chart updated): PAST MEDICAL HISTORY Diagnosis Date Elevated white blood cell count has been reviewed by hematology. will follow periodically Fam hx-cardiovas dis NEC n/a father, of [place] at 45 Hypothyroid Other and unspecified hyperlipidemia [...] ATTACK AT AGE 45 Heart Mother no blockages, hyperlipidemia Breast Cancer Mother Diabetes Maternal Grandmother Breast Cancer Paternal Grandfather Hypertension Mother around age 60 Social History Tobacco Use Smoking status: Former Current packs/day: 0.00 Average packs/day: 1 pack/day for 17.0 years (17.0 ttl pk-yrs) Types: Cigarettes Start date: 10/08/2005 Quit date: 10/08/2022 Years since quittin.0 Smokeless tobacco: Current Types: Chew Tobacco comments: 06/27/2022 5 cigs/day Vaping Use Vaping status: Never Used Substance Use Topics Alcohol use: Yes Comment: occasionally (once every 2-3) Drug use: No Current Outpatient Medications Medication Sig PARoxetine (PAXIL) 40 mg tablet Take 1 tablet by mouth once daily. tirzepatide (MOUNJARO) 2.5 mg/0.5 mL pen injector Inject 2.5 mg subcutaneously one time a week. Capsaicin 0.1 % crea Apply to affected area two times a day. amLODIPine (NORVASC) 10 mg tablet Take 1 tablet by mouth once daily. aspirin, enteric coated (ASPIRIN, ENTERIC COATED) 81 mg EC tablet Take 1 tablet by mouth once daily. levothyroxine (SYNTHROID) 125 mcg tablet Take 1 tablet by mouth once daily. atorvastatin (LIPITOR) 40 mg tablet Take 1 tablet by mouth daily at bedtime. For cholesterol. folic acid 1 mg tablet Take 1 tablet by mouth once daily. diclofenac (VOLTAREN ARTHRITIS PAIN) 1 % topical gel Apply 2 g to affected area four times daily. (Patient not taking: Reported on 08/03/2024) iron fum,ps/folic acid/vitC/B3 (IRON FOLATE-F ORAL) Take by mouth. blood sugar diagnostic (BLOOD GLUCOSE TEST) test strip Test blood sugar(s) 1 times daily. Dx: Type 2 DM - Uncontrolled E11.65 Insulin: No Lancets Test blood sugar(s) 1 times daily. Dx: Type 2 DM - Uncontrolled E11.65 Insulin: No metFORMIN ER (GLUCOPHAGE XR) 500 mg 24 hr tablet Take 2 tablets by mouth two times a day. metoprolol succinate ER (TOPROL XL) 50 mg 24 hr tablet Take 1 tablet by mouth once daily. isosorbide dinitrate (ISORDIL) 5 mg tablet Take 1 tablet by mouth two times a day. Lancets lancets Test blood sugar(s) 1 times daily. Dx: Type 2 DM - Controlled E11.9 Insulin: No glimepiride (AMARYL) 2 mg tablet Take 1 tablet by mouth daily with breakfast. blood sugar diagnostic (BLOOD GLUCOSE TEST) test strip Test blood sugar(s) 1 times daily. Dx: Type 2 DM - Controlled E11.9 Insulin: No clopidogrel (PLAVIX) 75 mg tablet Take 75 mg by mouth once daily. nitroglycerin sublingual (NITROQUICK) 0.4 mg SL tablet Nitroglycerin Active 0.4 MG SL Q5M October 24, 2022 12:00am nystatin-triamcinolone (MYCOLOG) ointment Apply sparingly to groin and penile rash twice daily for irritation/infection up to 2 weeks and then take 1 week off. COMPOUNDED PRESCRIPTION Initiate BiPAP @ 22/16 cm of water with humidification mask (per patient preference) optional chin strap (if indicated) and lifetime supplies DX: JOSIAH 327.23 No current facility-administered medications for this visit. ALLERGIES No Known Allergies ROS: Having knee replacement and wanted to lose weight. Started on keto diet. Lost 30 lb. BSS down to 60. Gave up pop. So he drank a soda. BSS dropped to 50. Ate a fried chicken breast. Getting really dizzy. Tirzepatide or Mounjaro unable to afford. Stopped metformin because boss told him to. Cardiology took him off glimepiride 2 weeks ago PHYSICAL EXAMINATION: VIDEO EXAM: (if completed, performed via video enabled technology) Sitting in chair. Alert and appropriate. Son helping him. ASSESSMENT/PLAN: 1. Osteoarthritis of left knee, unspecified osteoarthritis type - ICD9: 715.96, ICD10: M17.12 (primary diagnosis) Having TKA 11/15/24 2. Controlled type 2 diabetes mellitus without complication, without long-term current use of insulin ([facility]) - ICD9: 250.00, ICD10: E11.9 - Controlled - Stop glimepiride - METFORMIN ER 500 MG TABLET,EXTENDED RELEASE 24 HR reduced to 1,000mg daily Nuha Mosquera APRN.RAMIRO There are no Patient Instructions on file for this visit. I spent a total of 15 minutes on the date of the service which included preparing to see the patient, [id number] patient care, completing clinical documentation, obtaining and/or reviewing separately obtained history, performing a medically appropriate examination, counseling and educating the patient/family/caregiver, and ordering medications, tests, or procedures Nuha Mosquera APRN.CNP documented in this encounter [facility] 10-20-2024 Telephone encounter Note See other [employer] message Marilu Sanchez MA October 20, 2024 5:34 PM [facility] 10-20-2024 Miscellaneous Notes See other mychart message Marilu Sanchez MA October 20, 2024 5:34 PM documented in this encounter [facility] 10-12-2024 Telephone encounter Note Paperwork completed and returned to [facility]. Confirmation received. Copy sent for scanning. [facility] 10-12-2024 Miscellaneous Notes Paperwork completed and returned to [employer]. Confirmation received. Copy sent for scanning. No paperwork has been received in this office for this patient. I called and spoke with the spouse to inform her of that. She reports this just needs filled out for the last time that Dr. 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 Pt's calling to see if the paperwork from [employer] has been received and if so, if it has been completed. It is for short term disability. It would have come from [employer] via mail or fax. Please review and advise. Danielle Riojas MA documented in this encounter [facility] 10-11-2024 Telephone encounter Note The following approved medication requests have been transmitted electronically. Requested Prescriptions Pending Prescriptions Disp Refills PARoxetine (PAXIL) 40 mg tablet 90 tablet 3 Sig: Take 1 tablet by mouth once daily. Nuha A Suppan, [employer]MB[employer]LLA MENDER.MILL PLATFORM SUPERVISOR [facility] 10-11-2024 Miscellaneous Notes The following approved medication requests have been transmitted electronically. Requested Prescriptions Pending Prescriptions Disp Refills PARoxetine (PAXIL) 40 mg tablet 90 tablet 3 Sig: Take 1 tablet by mouth once daily. Nuha Mosquera APRN.CNP The patient has been identified by name and date of : Yes Caregiver verified no other encounters exist for this prescription request: Yes Caregiver confirmed with patient/requestor that no other refills are due, in the near future, with this provider at this time: Yes The last office visit in the department: 10/04/24 Does the patient have a future office visit with this provider/department: Yes 11/29/24 Requested Prescriptions Pending Prescriptions Disp Refills PARoxetine (PAXIL) 40 mg tablet 90 tablet 3 Sig: Take 1 tablet by mouth once daily. Juliana Parham RN October 10, 2024 7:44 PM documented in this encounter [facility] 10-10-2024 Telephone encounter Note The patient has been identified by name and date of : Yes Caregiver verified no other encounters exist for this prescription request: Yes Caregiver confirmed with patient/requestor that no other refills are due, in the near future, with this provider at this time: Yes The last office visit in the department: 10/04/24 Does the patient have a future office visit with this provider/department: Yes 11/29/24 Requested Prescriptions Pending Prescriptions Disp Refills PARoxetine (PAXIL) 40 mg tablet 90 tablet 3 Sig: Take 1 tablet by mouth once daily. Juliana Parham RN October 10, 2024 7:44 PM [facility] 10-06-2024 Telephone encounter Note No paperwork has been received in this office for this patient. I called and spoke with the spouse to inform her of that. She reports this just needs filled out for the last time that Dr. 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 [facility] 10-05-2024 Telephone encounter Note Pt's calling to see if the paperwork from [employer] has been received and if so, if it has been completed. It is for short term disability. It would have come from [employer] via mail or fax. Please review and advise. Danielle Riojas MA [facility] 10-04-2024 Note HNO ID: [id number] Author: GINGER LUGO MD Service: ? Author Type: Physician Type: Progress Notes Filed: 10/04/2024 16:25 Note Text: Patient presents with: Medical Clearance HPI: Patient presents today for office visit for pre-surgical clearance. Patient presents for preop clearance. Upcoming surgery for: left knee replacement. Hx of previous anesthesia problems: No. Family hx of anesthesia problems: No. Current signs of infection: No. Did have elevated white count last month. Was to have rechecked by now, reminded to do so Chest pain: -rare-feels like heart burn. Nothing with exertion. Does not feel like his angina. Had a ptca done in 2022. Sees Dr Patton at [facility] soon. Shortness of breath: no new short of breath. Known sleep apnea: Yes. Using cpap. Hx of clotting issues: No. Current bleeding or bruising: No. Sugars are slightly higher that previous but should not pose any issues with clearance. Recent labs: Latest Ref Rng 08/09/2024 WBC 3.70 - 11.00 k/uL 14.40 (H) RBC 4.20 - 6.00 m/uL 5.27 Hemoglobin 13.0 - 17.0 g/dL 14.5 Hematocrit 39.0 - 51.0 % 45.9 MCV 80.0 - 100.0 fL 87.1 MCH 26.0 - 34.0 pg 27.5 MCHC 30.5 - 36.0 g/dL 31.6 RDW-CV 11.5 - 15.0 % 15.6 (H) Platelet Count 150 - 400 k/uL 165 MPV 9.0 - 12.7 fL 10.6 Neut% % 76.3 Abs Neut (ANC) 1.45 - 7.50 k/uL 10.99 (H) Lymph% % 16.4 Abs Lymph 1.00 - 4.00 k/uL 2.36 Towns% % 5.0 Abs Towns <0.87 k/uL 0.72 Eosin% % 0.5 Abs Eosin <0.46 k/uL 0.07 Baso% % 0.5 Abs Baso <0.11 k/uL 0.07 Immature Gran % % 1.3 IMMATURE GRANS (ABS) <0.10 k/uL 0.19 (H) NRBC /100 WBC 0.0 Absolute nRBC <0.01 k/uL <0.01 DTYPE Auto Hemoglobin A1C 4.3 - 5.6 % 7.4 (H) Estimated Average Glucose mg/dL 166 Folate >4.7 ng/mL 19.7 Legend: (H) HighICATIONS: Current Outpatient Medications Medication Sig Capsaicin 0.1 % crea Apply to affected area two times a day. amLODIPine (NORVASC) 10 mg tablet Take 1 tablet by mouth once daily. aspirin, enteric coated (ASPIRIN, ENTERIC COATED) 81 mg EC tablet Take 1 tablet by mouth once daily. levothyroxine (SYNTHROID) 125 mcg tablet Take 1 tablet by mouth once daily. atorvastatin (LIPITOR) 40 mg tablet Take 1 tablet by mouth daily at bedtime. For cholesterol. folic acid 1 mg tablet Take 1 tablet by mouth once daily. iron fum,ps/folic acid/vitC/B3 (IRON FOLATE-F ORAL) Take by mouth. blood sugar diagnostic (BLOOD GLUCOSE TEST) test strip Test blood sugar(s) 1 times daily. Dx: Type 2 DM - Uncontrolled E11.65 Insulin: No Lancets Test blood sugar(s) 1 times daily. Dx: Type 2 DM - Uncontrolled E11.65 Insulin: No metFORMIN ER (GLUCOPHAGE XR) 500 mg 24 hr tablet Take 2 tablets by mouth two times a day. metoprolol succinate ER (TOPROL XL) 50 mg 24 hr tablet Take 1 tablet by mouth once daily. PARoxetine (PAXIL) 40 mg tablet Take 1 tablet by mouth once daily. isosorbide dinitrate (ISORDIL) 5 mg tablet Take 1 tablet by mouth two times a day. Lancets lancets Test blood sugar(s) 1 times daily. Dx: Type 2 DM - Controlled E11.9 Insulin: No glimepiride (AMARYL) 2 mg tablet Take 1 tablet by mouth daily with breakfast. blood sugar diagnostic (BLOOD GLUCOSE TEST) test strip Test blood sugar(s) 1 times daily. Dx: Type 2 DM - Controlled E11.9 Insulin: No clopidogrel (PLAVIX) 75 mg tablet Take 75 mg by mouth once daily. nitroglycerin sublingual (NITROQUICK) 0.4 mg SL tablet Nitroglycerin Active 0.4 MG SL Q5M October 24, 2022 12:00am nystatin-triamcinolone (MYCOLOG) ointment Apply sparingly to groin and penile rash twice daily for irritation/infection up to 2 weeks and then take 1 week off. COMPOUNDED PRESCRIPTION Initiate BiPAP @ 22/16 cm of water with humidification mask (per patient preference) optional chin strap (if indicated) and lifetime supplies DX: JOSIAH 327.23 diclofenac (VOLTAREN ARTHRITIS PAIN) 1 % topical gel Apply 2 g to affected area four times daily. (Patient not taking: Reported on 08/03/2024) No current facility-administered medications for this visit. ALLERGIES: ALLERGIES No Known Allergies PAST MEDICAL HISTORY Diagnosis Date Elevated white blood cell count has been reviewed by hematology. will follow periodically Fam hx-cardiovas dis NEC n/a father, of [place] at 45 Hypothyroid Other and unspecified hyperlipidemia [...] ATTACK AT AGE 45 Heart Mother no blockages, hyperlipidemia Breast Cancer Mother Diabetes Maternal Grandmothe (more content not included)... [facility] 10-04-2024 History of Present illness Narrative Patient presents with: Medical Clearance HPI: Patient presents today for office visit for pre-surgical clearance. Patient presents for preop clearance. Upcoming surgery for: left knee replacement. Hx of previous anesthesia problems: No. Family hx of anesthesia problems: No. Current signs of infection: No. Did have elevated white count last month. Was to have rechecked by now, reminded to do so Chest pain: -rare-feels like heart burn. Nothing with exertion. Does not feel like his angina. Had a ptca done in 2022. Sees Dr Patton at [facility] soon. Shortness of breath: no new short of breath. Known sleep apnea: Yes. Using cpap. Hx of clotting issues: No. Current bleeding or bruising: No. Sugars are slightly higher that previous but should not pose any issues with clearance. Recent labs: Latest Ref [facility] 08/09/2024 WBC 3.70 - 11.00 k/uL 14.40 (H) RBC 4.20 - 6.00 m/uL 5.27 Hemoglobin 13.0 - 17.0 g/dL 14.5 Hematocrit 39.0 - 51.0 % 45.9 MCV 80.0 - 100.0 fL 87.1 MCH 26.0 - 34.0 pg 27.5 MCHC 30.5 - 36.0 g/dL 31.6 RDW-CV 11.5 - 15.0 % 15.6 (H) Platelet Count 150 - 400 k/uL 165 MPV 9.0 - 12.7 fL 10.6 Neut% % 76.3 Abs Neut (ANC) 1.45 - 7.50 k/uL 10.99 (H) Lymph% % 16.4 Abs Lymph 1.00 - 4.00 k/uL 2.36 Towns% % 5.0 Abs Towns <0.87 k/uL 0.72 Eosin% % 0.5 Abs Eosin <0.46 k/uL 0.07 Baso% % 0.5 Abs Baso <0.11 k/uL 0.07 Immature Gran % % 1.3 IMMATURE GRANS (ABS) <0.10 k/uL 0.19 (H) NRBC /100 WBC 0.0 Absolute nRBC <0.01 k/uL <0.01 DTYPE Auto Hemoglobin A1C 4.3 - 5.6 % 7.4 (H) Estimated Average Glucose mg/dL 166 Folate >4.7 ng/mL 19.7 Legend: (H) HighICATIONS: Current Outpatient Medications Medication Sig Capsaicin 0.1 % crea Apply to affected area two times a day. amLODIPine (NORVASC) 10 mg tablet Take 1 tablet by mouth once daily. aspirin, enteric coated (ASPIRIN, ENTERIC COATED) 81 mg EC tablet Take 1 tablet by mouth once daily. levothyroxine (SYNTHROID) 125 mcg tablet Take 1 tablet by mouth once daily. atorvastatin (LIPITOR) 40 mg tablet Take 1 tablet by mouth daily at bedtime. For cholesterol. folic acid 1 mg tablet Take 1 tablet by mouth once daily. iron fum,ps/folic acid/vitC/B3 (IRON FOLATE-F ORAL) Take by mouth. blood sugar diagnostic (BLOOD GLUCOSE TEST) test strip Test blood sugar(s) 1 times daily. Dx: Type 2 DM - Uncontrolled E11.65 Insulin: No Lancets Test blood sugar(s) 1 times daily. Dx: Type 2 DM - Uncontrolled E11.65 Insulin: No metFORMIN ER (GLUCOPHAGE XR) 500 mg 24 hr tablet Take 2 tablets by mouth two times a day. metoprolol succinate ER (TOPROL XL) 50 mg 24 hr tablet Take 1 tablet by mouth once daily. PARoxetine (PAXIL) 40 mg tablet Take 1 tablet by mouth once daily. isosorbide dinitrate (ISORDIL) 5 mg tablet Take 1 tablet by mouth two times a day. Lancets lancets Test blood sugar(s) 1 times daily. Dx: Type 2 DM - Controlled E11.9 Insulin: No glimepiride (AMARYL) 2 mg tablet Take 1 tablet by mouth daily with breakfast. blood sugar diagnostic (BLOOD GLUCOSE TEST) test strip Test blood sugar(s) 1 times daily. Dx: Type 2 DM - Controlled E11.9 Insulin: No clopidogrel (PLAVIX) 75 mg tablet Take 75 mg by mouth once daily. nitroglycerin sublingual (NITROQUICK) 0.4 mg SL tablet Nitroglycerin Active 0.4 MG SL Q5M October 24, 2022 12:00am nystatin-triamcinolone (MYCOLOG) ointment Apply sparingly to groin and penile rash twice daily for irritation/infection up to 2 weeks and then take 1 week off. COMPOUNDED PRESCRIPTION Initiate BiPAP @ 22/16 cm of water with humidification mask (per patient preference) optional chin strap (if indicated) and lifetime supplies DX: JOSIAH 327.23 diclofenac (VOLTAREN ARTHRITIS PAIN) 1 % topical gel Apply 2 g to affected area four times daily. (Patient not taking: Reported on 08/03/2024) No current facility-administered medications for this visit. ALLERGIES: ALLERGIES No Known Allergies PAST MEDICAL HISTORY Diagnosis Date Elevated white blood cell count has been reviewed by hematology. will follow periodically Fam hx-cardiovas dis NEC n/a father, of [place] at 45 Hypothyroid Other and unspecified hyperlipidemia [...] ATTACK AT AGE 45 Heart Mother no blockages, hyperlipidemia Breast Cancer Mother Diabetes Maternal Grandmother Breast Cancer Paternal Grandfather Hypertension Mother around age 60 Social History Tobacco Use Smoking status: Former Current packs/day: 0.00 Average packs/day: 1 pack/day for 17.0 years (17.0 ttl pk-yrs) Types: Cigarettes Start date: 10/08/2005 Quit date: 10/08/2022 Years since quittin.9 Smokeless tobacco: Current Types: Chew Tobacco comments: 06/27/2022 5 cigs/day Vaping Use Vaping status: Never Used Substance Use Topics Alcohol use: Yes Comment: occasionally (once every 2-3) Drug use: No Reviewed current medications, allergies, past medical history, surgical history, family history and social history today. REVIEW OF SYSTEMS All other reviewed and negative other than HPI. HEALTH MAINTENANCE: Reviewed health maintenance issues today and recommended the following in detail. Dilated Retinal Exam just done in the last year. BP Controlled (<130/80) Never done Pneumococcal Vaccine: 50+(2 of 2 - PCV) due on 06/27/2023 VITALS: BP 128/68 Pulse 89 Ht 172.2 cm (5' 7.8) Wt (!) 140.2 kg (309 lb) SpO2 95% BMI 47.26 kg/m Last 4 Encounter Wt Readings: Date: Wt: 10/04/2024 140.2 kg (309 lb) 09/19/2024 143.4 kg (316 lb 2.2 oz) 09/15/2024 145.6 kg (321 lb) 08/09/2024 140.8 kg (310 lb 6.5 oz) PHYSICAL EXAMINATION: General appearance: Well appearing, [...] or cyanosis. Good capillary refill. ASSESSMENT/PLAN: 1. Osteoarthritis of left knee, unspecified osteoarthritis type - ICD9: 715.96, ICD10: M17.12 (primary diagnosis) - should be clear from my standpoint. Will be getting repeat cbc today. 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 Dvt prophylaxis per surgery. 2. Central sleep apnea - ICD9: 780.57, ICD10: G47.31 - will need cpap 3. Essential hypertension, benign - ICD9: 401.1, ICD10: I10 - Controlled - Continue current medications 4. Hyperlipidemia, unspecified hyperlipidemia type - ICD9: 272.4, ICD10: E78.5 - Controlled - Continue current medications 5. Status post insertion of drug-eluting stent into left anterior descending (LAD) artery - ICD9: V45.82, ICD10: Z95.5 - stable. . 6. Coronary artery disease involving 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 - ICD9: 414.01, ICD10: I25.10 - per cardioloy 7. JOSIAH (obstructive sleep apnea) - ICD9: 327.23, ICD10: G47.33 Stable. 8. Hypothyroidism, unspecified type - ICD9: 244.9, ICD10: E03.9 - last tsh was stable in summer. 9. Obesity, Class III, BMI 40-49.9 (morbid obesity) (HCC) - ICD9: 278.01, ICD10: E66.01 -as above. 10. DM: A1c was ok. Used to be on a glp-1 in the past. Had been held due to gi issues he was having in the past with a c diff infection. He would like to resume to improve his dm control and weight. Will add mounjaro. Discussed risks and benefits of new medication with the patient. Advised them to call if any side effects or questions. - call me a list of sugars in two weeks. Ginger Lugo MD RTO in six to eight weeks documented in this encounter [facility] 09-22-2024 Telephone encounter Note CD READY FOR SECURITY RESEARCHER AT [facility] TO LET PT KNOW [facility] 09-22-2024 Miscellaneous Notes CD READY FOR SECURITY RESEARCHER AT [facility] TO LET PT KNOW Patient's Liliana calling in requesting a CD to be made of patient's MRI completed on 05/26/24, and his knee and leg xray on 09/19/2024. Please let Liliana know once completed. Liliana's number: [phone] Teagan Vergara September 22, 2024 10:44 AM documented in this encounter [facility] 09-22-2024 Telephone encounter Note Patient's Liliana calling in requesting a CD to be made of patient's MRI completed on 05/26/24, and his knee and leg xray on 09/19/2024. Please let Liliana know once completed. Liliana's number: [phone] Teaganadam Guillen Ursula September 22, 2024 10:44 AM [facility] 09-19-2024 Note Addended by: JOSE VARELA on: 09/19/2024 02:27 PM Modules accepted: Level of Service [facility] 09-19-2024 Miscellaneous Notes Addended by: JOSE LOO on: 09/19/2024 02:27 PM Modules accepted: Level of Service documented in this encounter [facility] 09-19-2024 History of Present illness Narrative Images from the original note were not included. CONSULT ORTHOPAEDIC: KNEE PRIMARY CARE PHYSICIAN: Ginger Lugo MD REFERRING PROVIDER: No referring provider defined for this encounter. ASSESSMENT & PLAN This is a 53-year-old male who presents with left knee pain. Patient states that left knee pain for the past year and has been getting worse over the past few months. He has undergone injections with steroids and gel injections with no improvement. He continues to have pain most on the medial aspect of his knee. he has complete medial joint space narrowing of his compartment of his knee. Patient has a BMI of 48.3. Patient has history of CAD with stents. history of diabetes 7.4 no history of blood clots but is on Plavix. Impression: Left knee primary osteoarthritis severe -Discussed the patient that given he has a history of a BMI of 48 along with being on Plavix as well as diabetes with a A1c of 7.4, the goal would be for optimization at this time and to work with weight loss. He has been on Ozempic previously and is willing to try it. He will contact his primary care doctor regarding this and also try dieting. If he loses the weight gets to a BMI below 45 with an acceptable A1c we will proceed with the surgery. He will follow-up in 3 months. Diagnoses: (M17.12) Primary osteoarthritis of left knee (primary encounter diagnosis) Risk Factors for Total Knee Arthroplasty (TKA) Major Risk Factors Obesity High Risk High: BMI > 40 Moderate: BMI 30-40 Normal: BMI < 30 Diabetes Moderate Risk High: A1C > 8 Moderate: A1C 7-8 Normal: A1C < 7 Hx of DVT / PE normal High: dx of DVT / PE Normal: no dx of DVT / PE Smoking normal High: Current smoker Normal: Non smoker Narcotics Use Moderate Risk High:NarxCare >=300 Moderate: 100-299 Normal: 0-99 Depression Unknown Risk High: PHQ-9 >14 Moderate: PHQ-9 5-14 Normal: PHQ-9 < 5 Area Deprivation Index (GRETCHEN) Moderate Risk High: GRETCHEN Score > 75 Moderate: GRETCHEN 50-75 Normal: GRETCHEN < 50 Obesity: Weight management and obesity medicine (bariatric) program recommended BMI Readings from Last 3 Encounters: 09/19/24 : 48.36 kg/m 09/15/24 : 52.60 kg/m 08/09/24 : 50.87 kg/m Diabetes: Nick has been diagnosed with Type 2 Diabetes. His last Hemoglobin A1C was 7.4 (08/09/2024). Pt is followed by Ginger Lugo for Type 2 Diabetes - last seen on 08/09/2024. Consult to the Endocrinology and Metabolic Jeannette (MIKAL) recommended prior to surgery. Area Deprivation Index (GRETCHEN) 01/22/2023 04/04/2024 GRETCHEN Score National Score 61 61 Patient Health Questionnaire (PHQ-9) 12/28/2020 06/27/2022 01/22/2023 PHQ-9 PHQ-2 Score 0 0 0 (0-4) minimal depression, (5-9) mild depression, (10-14) moderate depression, (15-19) moderately severe depression, (20-27) severe depression Bone Density Risk Screen Nick Lopes is low risk for bone loss based on his age and having no previous diagnoses of osteopenia, osteoporosis, Paget's disease of bone, or cancer of bone. Other risk factors are listed below to determine if they pose a significant risk for bone loss, and if so, recommend ordering a bone densitometry and, upon receiving a result, as needed, order a consult to a bone health specialist (Rheumatology, Endocrinology, or Women's Health) for bone assessment. Risk Factors: History of falls Prednisone or use of systemic steroids Chronic Malnutrition Additional Risk Factors Anemia Hemoglobin (g/dL) Date Value 08/09/2024 14.5 04/01/2024 12.9 06/06/2021 15.1 05/14/2021 15.3 NarxCare score NARX Narcotics: 160 (09/19/2024 1:59 PM) Obstructive Sleep Apnea (JOSIAH) Malnutrition: No Malnutrition Screening Tool (MST) score on file- please complete the MST screening tool (click here to open) and refresh the note. 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 Urinary Incontinence Central Sleep Apnea Diabetes Mellitus Type 2, Controlled, Without Complications ([facility]) Obesity, Class Iii, Bmi 40-49.9 (Morbid Obesity) ([facility]) Situational Stress Theo (Generalized Anxiety Disorder) Josiah (Obstructive Sleep Apnea) Ddd (Degenerative Disc Disease), Lumbar Spinal Stenosis of Lumbar Region Without Neurogenic Claudication Cervical Stenosis of Spine Coronary Artery Disease Involving [place] Coronary Artery of [place] Heart Without Angina Pectoris S/P Ptca (Percutaneous Transluminal Coronary Angioplasty) Status Post Insertion of Drug-Eluting Stent into Left Anterior Descending (Lad) Artery Benign Prostatic Hyperplasia With Urinary Obstruction Calculus of Ureter Depressive Disorder Elevated Liver Enzymes Erectile Dysfunction Obstructive Hydronephrosis Tobacco Dependence Syndrome Folate Deficiency SUBJECTIVE CHIEF COMPLAINT: Knee Pain HPI: Nick Lopes is a 53 year old patient with the presenting complaint of New and Knee Pain of the Left Knee. Nick Lopes has had progressive problems with the knee(s) most of the day over the past 1 year(s) interfering with activities which include walking. The problem began limiting activities 1-3 years ago. Nick reports a current pain level of 10 (Knee-Left). He describes the pain as Aching, Crushing, Sharp. The pain is Continuous, and has lasted for 3 Months. FALL RISK: Nick is not currently at risk for falls. PROMIS Physical Function Score No data to display FUNCTIONAL STATUS: Do moderate work around the house such as vacuuming, sweeping floors, or carrying in groceries (3.50 METs) PREVIOUS TREATMENTS: Most recent knee injection: Large Joint Arthro/Inj: L knee joint (injected on 08/26/2024 by Torsten Aviles) Current Anti-Inflammatory medications: diclofenac sodium Past anti-inflammatory medications (not necessarily for this reason for visit): betamethasone acetate,sod phos, diclofenac sodium, ibuprofen, meloxicam, methylprednisolone, methylprednisolone acetate, naproxen, prednisone Medical Treatments: Steroid Injections Left Knee, Viscosupplementation Left Knee REVIEW OF SYSTEMS: GENERAL: Denies fever, chills malaise and weight loss.. PAIN ASSESSMENT: See HPI. CARDIOVASCULAR: Denies chest pain, history of A-fib, valvular disease, hypertension, CHF or pacemaker/ICD.. RESPIRATORY: Denies SOB, sputum production, dyspnea, COPD and hemoptysis.. GI: Denies GI ulcers, inflammatory disease, ascites or liver disease.. MUSCULOSKELETAL: See HPI. NEURO: Denies CVA, seizures, headaches.. ENDOCRINE: Denies diabetes, thyroid disease.. No data to display PAST MEDICAL HISTORY Diagnosis Date Elevated white blood cell count has been reviewed by hematology. will follow periodically Fam hx-cardiovas dis NEC n/a father, of [place] at 45 Hypothyroid Other and unspecified hyperlipidemia [...] ATTACK AT AGE 45 Heart Mother no blockages, hyperlipidemia Breast Cancer Mother Diabetes Maternal Grandmother Breast Cancer Paternal Grandfather Hypertension Mother around age 60 Social History Tobacco Use Smoking status: Former Current packs/day: 0.00 Average packs/day: 1 pack/day for 17.0 years (17.0 ttl pk-yrs) Types: Cigarettes Start date: 10/08/2005 Quit date: 10/08/2022 Years since quittin.9 Smokeless tobacco: Current Types: Chew Tobacco comments: 06/27/2022 5 cigs/day Vaping Use Vaping status: Never Used Substance Use Topics Alcohol use: Yes Comment: occasionally (once every 2-3) Drug use: No ALLERGIES: Patient has no known allergies. MEDICATIONS: Capsaicin 0.1 % crea Apply to affected area two times a day. amLODIPine (NORVASC) 10 mg tablet Take 1 tablet by mouth once daily. aspirin, enteric coated (ASPIRIN, ENTERIC COATED) 81 mg EC tablet Take 1 tablet by mouth once daily. levothyroxine (SYNTHROID) 125 mcg tablet Take 1 tablet by mouth once daily. atorvastatin (LIPITOR) 40 mg tablet Take 1 tablet by mouth daily at bedtime. For cholesterol. folic acid 1 mg tablet Take 1 tablet by mouth once daily. iron fum,ps/folic acid/vitC/B3 (IRON FOLATE-F ORAL) Take by mouth. blood sugar diagnostic (BLOOD GLUCOSE TEST) test strip Test blood sugar(s) 1 times daily. Dx: Type 2 DM - Uncontrolled E11.65 Insulin: No Lancets Test blood sugar(s) 1 times daily. Dx: Type 2 DM - Uncontrolled E11.65 Insulin: No metFORMIN ER (GLUCOPHAGE XR) 500 mg 24 hr tablet Take 2 tablets by mouth two times a day. metoprolol succinate ER (TOPROL XL) 50 mg 24 hr tablet Take 1 tablet by mouth once daily. PARoxetine (PAXIL) 40 mg tablet Take 1 tablet by mouth once daily. isosorbide dinitrate (ISORDIL) 5 mg tablet Take 1 tablet by mouth two times a day. Lancets lancets Test blood sugar(s) 1 times daily. Dx: Type 2 DM - Controlled E11.9 Insulin: No glimepiride (AMARYL) 2 mg tablet Take 1 tablet by mouth daily with breakfast. blood sugar diagnostic (BLOOD GLUCOSE TEST) test strip Test blood sugar(s) 1 times daily. Dx: Type 2 DM - Controlled E11.9 Insulin: No clopidogrel (PLAVIX) 75 mg tablet Take 75 mg by mouth once daily. nitroglycerin sublingual (NITROQUICK) 0.4 mg SL tablet Nitroglycerin Active 0.4 MG SL Q5M October 24, 2022 12:00am nystatin-triamcinolone (MYCOLOG) ointment Apply sparingly to groin and penile rash twice daily for irritation/infection up to 2 weeks and then take 1 week off. COMPOUNDED PRESCRIPTION Initiate BiPAP @ 22/16 cm of water with humidification mask (per patient preference) optional chin strap (if indicated) and lifetime supplies DX: JOSIAH 327.23 diclofenac (VOLTAREN ARTHRITIS PAIN) 1 % topical gel Apply 2 g to affected area four times daily. (Patient not taking: Reported on 08/03/2024) OBJECTIVE PHYSICAL EXAM: Ht 172.2 cm (5' 7.8) Wt (!) 143.4 kg (316 lb 2.2 oz) BMI 48.36 kg/m All other systems deferred. GENERAL: Appears healthy, well-nourished, no deformities. HABITUS: Normal GAIT: Antalgic to the left KNEE EXAM: Left: Alignment: Varus deformity, Correctable Range of motion is 5 degrees in extension and 100 degrees of flexion. Extension La degrees Pain with ROM: Yes Effusion: Slight Tender to the palpation of Medial femoral condyle Pain with patellar compression: No Stability: Anterior/Posterior stable and Varus/Valgus stable Hip Exam: flexion to 100+ degrees, full extension, internal/external rotation adequate, and no pain with log roll Neurovascular Status: Sensation Intact, Moves foot and ankle up & down, and 2+ dorsalis pedis DATA: Most recent knee imaging was completed on 09/19/2024 (MRI KNEE WO IVCON LEFT) . Attached is imaging for the order.Most recent lower leg imaging was completed on 03/28/2024 (XR TIBIA FIBULA 2V AP/LAT LEFT) . Attached is imaging for the order.The most recent knee injection was Large Joint Arthro/Inj: L knee joint, injected on 08/26/2024 by Torsten Aviles. Diagnostic tests reviewed for today's visit: Left knee X-Ray: Severe tri-compartmental degeneration and Medial joint space noted to have severe degenerative changes The following conditions were addressed during the office visit today: Obesity - Weight management strategies were discussed including diet and exercise. A Consult to Weight Management will be completed to follow up on the plan of care. Diabetes - HgbA1C optimization - we discussed the importance of good glucose control for overall health and Total Joint Arthroplasty. SIGNATURE: Jose Loo MD PATIENT NAME: Nick Lopes DATE: September 19, 2024 TIME: 2:28 PM I spent a total of approximately 50 minutes on the date of the service which included preparing to see the patient, [id number] patient care, completing clinical documentation, obtaining and/or reviewing separately obtained history, performing a medically appropriate examination, counseling and educating the patient/family/caregiver, ordering medications, tests, or procedures, communicating with other HCPs (not separately reported), independently interpreting results (not separately reported), communicating results to the patient/family/caregiver, and care coordination (not separately reported). documented in this encounter [facility] 09-19-2024 Note HNO ID: [id number] Author: JOSE LOO MD Service: ? Author Type: Physician Type: Progress Notes Filed: 09/19/2024 14:30 Note Text: CONSULT ORTHOPAEDIC: KNEE PRIMARY CARE PHYSICIAN: Ginger Lugo MD REFERRING PROVIDER: No referring provider defined for this encounter. ASSESSMENT AND PLAN This is a 53-year-old male who presents with left knee pain. Patient states that left knee pain for the past year and has been getting worse over the past few months. He has undergone injections with steroids and gel injections with no improvement. He continues to have pain most on the medial aspect of his knee. he has complete medial joint space narrowing of his compartment of his knee. Patient has a BMI of 48.3. Patient has history of CAD with stents. history of diabetes 7.4 no history of blood clots but is on Plavix. Impression: Left knee primary osteoarthritis severe -Discussed the patient that given he has a history of a BMI of 48 along with being on Plavix as well as diabetes with a A1c of 7.4, the goal would be for optimization at this time and to work with weight loss. He has been on Ozempic previously and is willing to try it. He will contact his primary care doctor regarding this and also try dieting. If he loses the weight gets to a BMI below 45 with an acceptable A1c we will proceed with the surgery. He will follow-up in 3 months. Diagnoses: (M17.12) Primary osteoarthritis of left knee (primary encounter diagnosis) Risk Factors for Total Knee Arthroplasty (TKA) Major Risk Factors Obesity High Risk High: BMI > 40 Moderate: BMI 30-40 Normal: BMI < 30 Diabetes Moderate Risk High: A1C > 8 Moderate: A1C 7-8 Normal: A1C < 7 Hx of DVT / PE normal High: dx of DVT / PE Normal: no dx of DVT / PE Smoking normal High: Current smoker Normal: Non smoker Narcotics Use Moderate Risk High:NarxCare >=300 Moderate: 100-299 Normal: 0-99 Depression Unknown Risk High: PHQ-9 >14 Moderate: PHQ-9 5-14 Normal: PHQ-9 < 5 Area Deprivation Index (GRETCHEN) Moderate Risk High: GRETCHEN Score > 75 Moderate: GRETCHEN 50-75 Normal: GRETCHEN < 50 Obesity: Weight management and obesity medicine (bariatric) program recommended BMI Readings from Last 3 Encounters: 09/19/24 : 48.36 kg/m? 09/15/24 : 52.60 kg/m? 08/09/24 : 50.87 kg/m? Diabetes: Nick has been diagnosed with Type 2 Diabetes. His last Hemoglobin A1C was 7.4 (08/09/2024). Pt is followed by Ginger Lugo for Type 2 Diabetes - last seen on 08/09/2024. Consult to the Endocrinology and Metabolic Jeannette (MIKAL) recommended prior to surgery. Area Deprivation Index (GRETCHEN) 01/22/2023 04/04/2024 GRETCHEN Score National Score 61 61 Patient Health Questionnaire (PHQ-9) 12/28/2020 06/27/2022 01/22/2023 PHQ-9 PHQ-2 Score 0 0 0 (0-4) minimal depression, (5-9) mild depression, (10-14) moderate depression, (15-19) moderately severe depression, (20-27) severe depression Bone Density Risk Screen Nick Lopes is low risk for bone loss based on his age and having no previous diagnoses of osteopenia, osteoporosis, Paget's disease of bone, or cancer of bone. Other risk factors are listed below to determine if they pose a significant risk for bone loss, and if so, recommend ordering a bone densitometry and, upon receiving a result, as needed, order a consult to a bone health specialist (Rheumatology, Endocrinology, or Women's Health) for bone assessment. Risk Factors: History of falls Prednisone or use of systemic steroids Chronic Malnutrition Additional Risk Factors Anemia Hemoglobin (g/dL) Date Value 08/09/2024 14.5 04/01/2024 12.9 06/06/2021 15.1 05/14/2021 15.3 NarxCare score NARX Narcotics: 160 (09/19/2024 1:59 PM) Obstructive Sleep Apnea (JOSIAH) Malnutrition: No Malnutrition Screening Tool (MST) score on file- please complete the MST screening tool (click here to open) and refresh the note. 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 Urinary Incontinence Central Sleep Apnea Diabetes Mellitus Type 2, Controlled, Without Complications (Hcc) Obesity, Class Iii, Bmi 40-49.9 (Morbid Obesity) (Hcc) Situational Stress Theo (Generalized Anxiety Disorder) Josiah (Obstructive Sleep Apnea) Ddd (Degenerative Disc Disease), Lumbar Spinal Stenosis of Lumbar Region Without Neurogenic Claudication Cervical Stenosis of Spine Coronary Artery Disease Involving [place] Coronary Artery of [place] Heart Without Angina Pectoris S/P Ptca (Percutaneous Transluminal Coronary Angioplasty) Status Post Insertion of Drug-Eluting Stent into Left Anterior Descending (Lad) Artery Benign Prostatic Hyperplasia With Urinary Obstruction Calculus of Ureter Depressive (more content not included)... [facility] 09-19-2024 History of Present illness Narrative Radiology Service Progress Note PATIENT NAME: Nick Lopes DATE OF SERVICE: September 19, 2024 TIME: 2:00 PM PATIENT IDENTITY VERIFICATION COMPLETED USING TWO (2) IDENTIFIERS: Name and Date of confirmed by patient verbally. FALL SCREENING: Has the patient had 2 falls in the last year or 1 fall with injury or currently using an Ambulatory Assistive Device (Walker, Cane, Wheelchair, Crutches, etc.)? Yes, Patient High Risk for Falls What interventions were put in place to prevent falls during this visit? [place] Risk Wristband Applied and Increased Observations by Caregivers PATIENT GENDER DATA: Assigned male at PATIENT RELEVANT IMPLANT DATA REVIEWED: Not Applicable PATIENT PRESENTS WITH AN IMPLANTABLE OR ATTACHED DIE MAKER BENCH STAMPING: No RADIOLOGY DEPARTMENT: General X-ray: Exam(s) Completed: Lower Extremity X-Ray(s): Knee, AP / Lat / Merchant Bilateral and FLEA (Full Length Lower Extremity) PERIPHERAL IV DATA: Not applicable SIGNED BY: RT Christian(R) September 19, 2024 2:00 PM documented in this encounter [facility] 09-19-2024 Note HNO ID: [id number] Author: DARRYN JONES RT(R) Service: Radiology Author Type: Technologist Type: Progress Notes Filed: 09/19/2024 14:01 Note Text: Radiology Service Progress Note PATIENT NAME: Nick Lopes DATE OF SERVICE: September 19, 2024 TIME: 2:00 PM PATIENT IDENTITY VERIFICATION COMPLETED USING TWO (2) IDENTIFIERS: Name and Date of confirmed by patient verbally. FALL SCREENING: Has the patient had 2 falls in the last year or 1 fall with injury or currently using an Ambulatory Assistive Device (Walker, Cane, Wheelchair, Crutches, etc.)? Yes, Patient High Risk for Falls What interventions were put in place to prevent falls during this visit? [place] Risk Wristband Applied and Increased Observations by Caregivers PATIENT GENDER DATA: Assigned male at PATIENT RELEVANT IMPLANT DATA REVIEWED: Not Applicable PATIENT PRESENTS WITH AN IMPLANTABLE OR ATTACHED DIE MAKER BENCH STAMPING: No RADIOLOGY DEPARTMENT: General X-ray: Exam(s) Completed: Lower Extremity X-Ray(s): Knee, AP / Lat / Merchant Bilateral and FLEA (Full Length Lower Extremity) PERIPHERAL IV DATA: Not applicable SIGNED BY: RT Christian(R) September 19, 2024 2:00 PM [facility] 09-15-2024 Note Addended by: NUHA MOSQUERA on: 09/15/2024 01:20 PM Modules accepted: Orders [facility] 09-15-2024 Miscellaneous Notes Addended by: NUHA MOSQUERA on: 09/15/2024 01:20 PM Modules accepted: Orders documented in this encounter [facility] 09-15-2024 Telephone encounter Note Done. Thanks for update [facility] 09-15-2024 Miscellaneous Notes Done. Thanks for update Spouse (Liliana) calls to report that the order for knee immobilizer is not available at [facility]. Liliana reports what they can offer is a reaction web brace (doesn't completely immobilize the knee but offers support). If provider agrees new order would have to be sent to [facility] for reaction web brace. Pended requested order with previous diagnosis for review. Batool Ballesteros RN documented in this encounter [facility] 09-15-2024 Telephone encounter Note Spouse (Liliana) calls to report that the order for knee immobilizer is not available at [facility]. Liliana reports what they can offer is a reaction web brace (doesn't completely immobilize the knee but offers support). If provider agrees new order would have to be sent to [facility] for reaction web brace. Pended requested order with previous diagnosis for review. Batool Ballesteros RN [facility] 09-15-2024 Instructions Nuha Mosquera APRN.CNP - 09/15/2024 11:48 AM EST 1) Off work through Thursday 2) DME request at [facility] for walker and immobilizer 3) Capsaicin topically 2 - 3 times a day, HOT- do not put heating pad on this (use ice) 4) see Dr. Lugo as scheduled documented in this encounter [facility] 09-15-2024 History of Present illness Narrative This is a 53 year old male who presents today with: Patient presents with: Knee Pain: Urgent Care follow up HISTORY OF PRESENT ILLNESS: Nick Lopes is a 53 year old male. Patient presents with: Knee Pain: Urgent Care follow up Left knee is very painful. Had hyaluronic acid injection in it. Was off two weeks and went back to work Sep. 2 ER told him the injection went through to back of knee causing swelling behind knee. Ruled out infection Pain is the entire knee now. Can't do his job now. 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 will follow periodically Fam hx-cardiovas dis NEC n/a father, of [place] at 45 Hypothyroid Other and unspecified hyperlipidemia [...] TONSILLECTOMY PRIMARY/SECONDARY <AGE 12 age 4+/- Tonsillectomy ALLERGIES Patient has no known allergies. MEDICATIONS Current Outpatient Medications Medication Sig amLODIPine (NORVASC) 10 mg tablet Take 1 tablet by mouth once daily. aspirin, enteric coated (ASPIRIN, ENTERIC COATED) 81 mg EC tablet Take 1 tablet by mouth once daily. levothyroxine (SYNTHROID) 125 mcg tablet Take 1 tablet by mouth once daily. atorvastatin (LIPITOR) 40 mg tablet Take 1 tablet by mouth daily at bedtime. For cholesterol. folic acid 1 mg tablet Take 1 tablet by mouth once daily. diclofenac (VOLTAREN ARTHRITIS PAIN) 1 % topical gel Apply 2 g to affected area four times daily. (Patient not taking: Reported on 08/03/2024) iron fum,ps/folic acid/vitC/B3 (IRON FOLATE-F ORAL) Take by mouth. blood sugar diagnostic (BLOOD GLUCOSE TEST) test strip Test blood sugar(s) 1 times daily. Dx: Type 2 DM - Uncontrolled E11.65 Insulin: No Lancets Test blood sugar(s) 1 times daily. Dx: Type 2 DM - Uncontrolled E11.65 Insulin: No metFORMIN ER (GLUCOPHAGE XR) 500 mg 24 hr tablet Take 2 tablets by mouth two times a day. metoprolol succinate ER (TOPROL XL) 50 mg 24 hr tablet Take 1 tablet by mouth once daily. PARoxetine (PAXIL) 40 mg tablet Take 1 tablet by mouth once daily. isosorbide dinitrate (ISORDIL) 5 mg tablet Take 1 tablet by mouth two times a day. Lancets lancets Test blood sugar(s) 1 times daily. Dx: Type 2 DM - Controlled E11.9 Insulin: No glimepiride (AMARYL) 2 mg tablet Take 1 tablet by mouth daily with breakfast. blood sugar diagnostic (BLOOD GLUCOSE TEST) test strip Test blood sugar(s) 1 times daily. Dx: Type 2 DM - Controlled E11.9 Insulin: No clopidogrel (PLAVIX) 75 mg tablet Take 75 mg by mouth once daily. nitroglycerin sublingual (NITROQUICK) 0.4 mg SL tablet Nitroglycerin Active 0.4 MG SL Q5M October 24, 2022 12:00am nystatin-triamcinolone (MYCOLOG) ointment Apply sparingly to groin and penile rash twice daily for irritation/infection up to 2 weeks and then take 1 week off. COMPOUNDED PRESCRIPTION Initiate BiPAP @ 22/16 cm of water with humidification mask (per patient preference) optional chin strap (if indicated) and lifetime supplies DX: JOSIAH 327.23 No current facility-administered medications for this visit. FAMILY HISTORY Problem Relation Age of Onset Heart Father of HEART ATTACK AT AGE 45 Heart Mother no blockages, hyperlipidemia Breast Cancer Mother Diabetes Maternal Grandmother Breast Cancer Paternal Grandfather Hypertension Mother around age 60 Social History Tobacco Use Smoking status: Former Current packs/day: 0.00 Average packs/day: 1 pack/day for 17.0 years (17.0 ttl pk-yrs) Types: Cigarettes Start date: 10/08/2005 Quit date: 10/08/2022 Years since quittin.9 Smokeless tobacco: Current Tobacco comments: 06/27/2022 5 cigs/day Vaping Use Vaping status: Never Used Substance Use Topics Alcohol use: Yes Comment: occasionally (once every 2-3) Drug use: No OARRS report notes 3 separate providers EXAM: BP 130/80 Pulse 98 Temp 36.2 C (97.1 F) (Tympanic) Wt (!) 145.6 kg (321 lb) SpO2 97% BMI 52.60 kg/m PHYSICAL EXAM: Physical Exam Vitals reviewed. Constitutional: Appearance: Normal appearance. He is obese. HENT: Head: Normocephalic. Musculoskeletal: Comments: Left knee 1 + edema, no crepitus on passive ROM, Majority of pain medial aspect. Able to flex 90 degrees and extend fully, + pain with internal and external rotation. Negative anterior drawer test. Not red, hot, or tight with edema Skin: General: Skin is warm and dry. Neurological: Mental Status: He is alert and oriented to person, place, and time. Psychiatric: Comments: Pain disproportional LABS: ASSESSMENT/PLAN: 1. Primary osteoarthritis of left knee - ICD9: 715.16, ICD10: M17.12 Acute exacerbation - DME SUPPLY OR ACCESSORY, NOS for walker and knee immobilizer - CAPSAICIN 0.1 % TOPICAL CREAM 2 x day - Await appt. With Orthopedics - Off work x 1 week, note written (09/14/24) Discussed treatment plan and patient voices understanding. Patient's questions answered appropriately. Medications and potential side effects were discussed and patient voices understanding. Return to the office as scheduled or as needed for worsening/no improvement. Nuha Mosquera APRN.RAMIRO documented in this encounter [facility] 09-15-2024 Note HNO ID: [id number] Author: NUHA MOSQUERA APRN.CNP Service: ? Author Type: Clinical Nurse Specialist Type: Progress Notes Filed: 09/15/2024 12:11 Note Text: This is a 53 year old male who presents today with: Patient presents with: Knee Pain: Urgent Care follow up HISTORY OF PRESENT ILLNESS: Nick Lopes is a 53 year old male. Patient presents with: Knee Pain: Urgent Care follow up Left knee is very painful. Had hyaluronic acid injection in it. Was off two weeks and went back to work Sep. 2 ER told him the injection went through to back of knee causing swelling behind knee. Ruled out infection Pain is the entire knee now. Can't do his job now. 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 will follow periodically Fam hx-cardiovas dis NEC n/a father, of [place] at 45 Hypothyroid Other and unspecified hyperlipidemia Sep 14 (dx'd in hospital for atypical CP) Overweight(278.02) Sleep apnea Tobacco use disorder complicating , childbirth, or the puerperium, unspecified as to episode of care or not applicable 1989 Unspecified essential hypertension PAST SURGICAL HISTORY Procedure Laterality Date EXCISION OF BENIGN LESION, COMPLICATED 2003 Lipoma, abdominal wall, [facility] TONSILLECTOMY PRIMARY/SECONDARY Tonsillectomy ALLERGIES Patient has no known allergies. MEDICATIONS Current Outpatient Medications Medication Sig amLODIPine (NORVASC) 10 mg tablet Take 1 tablet by mouth once daily. aspirin, enteric coated (ASPIRIN, ENTERIC COATED) 81 mg EC tablet Take 1 tablet by mouth once daily. levothyroxine (SYNTHROID) 125 mcg tablet Take 1 tablet by mouth once daily. atorvastatin (LIPITOR) 40 mg tablet Take 1 tablet by mouth daily at bedtime. For cholesterol. folic acid 1 mg tablet Take 1 tablet by mouth once daily. diclofenac (VOLTAREN ARTHRITIS PAIN) 1 % topical gel Apply 2 g to affected area four times daily. (Patient not taking: Reported on 08/03/2024) iron fum,ps/folic acid/vitC/B3 (IRON FOLATE-F ORAL) Take by mouth. blood sugar diagnostic (BLOOD GLUCOSE TEST) test strip Test blood sugar(s) 1 times daily. Dx: Type 2 DM - Uncontrolled E11.65 Insulin: No Lancets Test blood sugar(s) 1 times daily. Dx: Type 2 DM - Uncontrolled E11.65 Insulin: No metFORMIN ER (GLUCOPHAGE XR) 500 mg 24 hr tablet Take 2 tablets by mouth two times a day. metoprolol succinate ER (TOPROL XL) 50 mg 24 hr tablet Take 1 tablet by mouth once daily. PARoxetine (PAXIL) 40 mg tablet Take 1 tablet by mouth once daily. isosorbide dinitrate (ISORDIL) 5 mg tablet Take 1 tablet by mouth two times a day. Lancets lancets Test blood sugar(s) 1 times daily. Dx: Type 2 DM - Controlled E11.9 Insulin: No glimepiride (AMARYL) 2 mg tablet Take 1 tablet by mouth daily with breakfast. blood sugar diagnostic (BLOOD GLUCOSE TEST) test strip Test blood sugar(s) 1 times daily. Dx: Type 2 DM - Controlled E11.9 Insulin: No clopidogrel (PLAVIX) 75 mg tablet Take 75 mg by mouth once daily. nitroglycerin sublingual (NITROQUICK) 0.4 mg SL tablet Nitroglycerin Active 0.4 MG SL Q5M October 24, 2022 12:00am nystatin-triamcinolone (MYCOLOG) ointment Apply sparingly to groin and penile rash twice daily for irritation/infection up to 2 weeks and then take 1 week off. COMPOUNDED PRESCRIPTION Initiate BiPAP @ 22/16 cm of water with humidification mask (per patient preference) optional chin strap (if indicated) and lifetime supplies DX: JOSIAH 327.23 No current facility-administered medications for this visit. FAMILY HISTORY Problem Relation Age of Onset Heart Father of HEART ATTACK AT AGE 45 Heart Mother no blockages, hyperlipidemia Breast Cancer Mother Diabetes Maternal Grandmother Breast Cancer Paternal Grandfather Hypertension Mother around age 60 Social History Tobacco Use Smoking status: Former Current packs/day: 0.00 Average packs/day: 1 pack/day for 17.0 years (17.0 ttl pk-yrs) Types: Cigarettes Start date: 10/08/2005 Quit date: 10/08/2022 Years since quittin.9 Smokeless tobacco: Current Tobacco comments: 06/27/2022 5 cigs/day Vaping Use Vaping status: Never Used Substance Use Topics Alcohol use: Yes Comment: occasionally (once every 2-3) Drug use: No OARRS report notes 3 separate providers EXAM: BP 130/80 Pulse 98 Temp 36.2 ?C (97.1 ?F) (Tympanic) Wt (!) 145.6 kg (321 lb) SpO2 97% BMI 52.60 kg/m? PHYSICAL EXAM: Physical Exam Vitals reviewed. Constitutional: Appearance: Normal appearance. He is obese. HENT: Head: Normocephalic. Musculoskeletal: (more content not included)... [facility] 09-09-2024 Telephone encounter Note Patients called in and states her is still having a lot of issues with his knee even after the injection. She states they were told to call as he will need to see a surgeon. Lu Jenkins LPN [facility] 09-09-2024 Miscellaneous Notes Patients called in and states her is still having a lot of issues with his knee even after the injection. She states they were told to call as he will need to see a surgeon. Lu Jenkins LPN documented in this encounter [facility] 08-26-2024 Note HNO ID: [id number] Author: TORSTEN AVILES, DO Service: ? Author Type: Physician Type: Progress Notes Filed: 08/26/2024 15:48 Note Text: SERVICE DATE: August 26, 2024 PCP: Ginger Lugo MD Subjective Patient ID: Nick is a 53 year old male. Chief Complaint: Patient presents with: Durolane injection into left knee PAIN EVALUATION 08/26/2024 1514 Pain Level: 8 Pain Location: Knee-Left Description: Aching;Sharp;Stabbing;Stiffness Duration Amount of Time: -- ongoing Frequency: Continuous Intervention/Comfort measure: Exercise;Medication;Other: See comment;Cold muscle rub HPI Nick continues to have left medial knee pain. Occultly with ambulation particularly going up and down stairs. Notices no redness or swelling. 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 Urinary Incontinence Central Sleep Apnea Diabetes Mellitus Type 2, Controlled, Without Complications (Formerly [facility]) Obesity, Class Iii, Bmi 40-49.9 (Morbid Obesity) (Formerly [facility]) Situational Stress Theo (Generalized Anxiety Disorder) Josiah (Obstructive Sleep Apnea) Ddd (Degenerative Disc Disease), Lumbar Spinal Stenosis of Lumbar Region Without Neurogenic Claudication Cervical Stenosis of Spine Coronary Artery Disease Involving [place] Coronary Artery of [place] Heart Without Angina Pectoris S/P Ptca (Percutaneous Transluminal Coronary Angioplasty) Status Post Insertion of Drug-Eluting Stent into Left Anterior Descending (Lad) Artery Benign Prostatic Hyperplasia With Urinary Obstruction Calculus of Ureter Depressive Disorder Elevated Liver Enzymes Erectile Dysfunction Obstructive Hydronephrosis Tobacco Dependence Syndrome Folate Deficiency PAST MEDICAL HISTORY Diagnosis Date Elevated white blood cell count has been reviewed by hematology. will follow periodically Fam hx-cardiovas dis NEC n/a father, of AL at 45 Hypothyroid Other and unspecified hyperlipidemia [...] ATTACK AT AGE 45 Heart Mother no blockages, hyperlipidemia Breast Cancer Mother Diabetes Maternal Grandmother Breast Cancer Paternal Grandfather Hypertension Mother around age 60 Social History Tobacco Use Smoking status: Former Current packs/day: 0.00 Average packs/day: 1 pack/day for 17.0 years (17.0 ttl pk-yrs) Types: Cigarettes Start date: 10/08/2005 Quit date: 10/08/2022 Years since quittin.8 Smokeless tobacco: Current Tobacco comments: 06/27/2022 5 cigs/day Vaping Use Vaping status: Never Used Substance Use Topics Alcohol use: Yes Comment: occasionally (once every 2-3) Drug use: No ALLERGIES No Known Allergies MEDICATIONS: amLODIPine (NORVASC) 10 mg tablet Take 1 tablet by mouth once daily. aspirin, enteric coated (ASPIRIN, ENTERIC COATED) 81 mg EC tablet Take 1 tablet by mouth once daily. levothyroxine (SYNTHROID) 125 mcg tablet Take 1 tablet by mouth once daily. atorvastatin (LIPITOR) 40 mg tablet Take 1 tablet by mouth daily at bedtime. For cholesterol. folic acid 1 mg tablet Take 1 tablet by mouth once daily. iron fum,ps/folic acid/vitC/B3 (IRON FOLATE-F ORAL) Take by mouth. metFORMIN ER (GLUCOPHAGE XR) 500 mg 24 hr tablet Take 2 tablets by mouth two times a day. metoprolol succinate ER (TOPROL XL) 50 mg 24 hr tablet Take 1 tablet by mouth once daily. PARoxetine (PAXIL) 40 mg tablet Take 1 tablet by mouth once daily. isosorbide dinitrate (ISORDIL) 5 mg tablet Take 1 tablet by mouth two times a day. glimepiride (AMARYL) 2 mg tablet Take 1 tablet by mouth daily with breakfast. clopidogrel (PLAVIX) 75 mg tablet Take 75 mg by mouth once daily. nystatin-triamcinolone (MYCOLOG) ointment Apply sparingly to groin and penile rash twice daily for irritation/infection up to 2 weeks and then take 1 week off. predniSONE (DELTASONE) 10 mg tablet TAKE BY MOUTH ONE(1) TABLET THREE TIMES DAILY FOR 4 DAYS, THEN TAKE ONE(1) TABLET TWO(2) TIMES DAILY FOR 4 DAYS, THEN TAKE ONE(1) TABLET DAILY. (Patient not taking: Reported on 08/09/2024) diclofenac (VOLTAREN ARTHRITIS PAIN) 1 % topical gel Apply 2 g to affected area four times daily. (Patient not taking: Reported on 08/03/2024) blood (more content not included)... [facility] 08-26-2024 History of Present illness Narrative Associated Order(s): Large Joint Arthro/Inj: L knee joint Post-Procedure Diagnose(s): Primary osteoarthritis of left knee Images from the original note were not included. SERVICE DATE: August 26, 2024 PCP: Ginger Lugo MD Subjective Patient ID: Nick is a 53 year old male. Chief Complaint: Patient presents with: Durolane injection into left knee PAIN EVALUATION 08/26/2024 1514 Pain Level: 8 Pain Location: Knee-Left Description: Aching;Sharp;Stabbing;Stiffness Duration Amount of Time: -- ongoing Frequency: Continuous Intervention/Comfort measure: Exercise;Medication;Other: See comment;Cold muscle rub HPI Nick continues to have left medial knee pain. Occultly with ambulation particularly going up and down stairs. Notices no redness or swelling. 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 Urinary Incontinence Central Sleep Apnea Diabetes Mellitus Type 2, Controlled, Without Complications (Formerly [facility]) Obesity, Class Iii, Bmi 40-49.9 (Morbid Obesity) (Formerly [facility]) Situational Stress Theo (Generalized Anxiety Disorder) Josiah (Obstructive Sleep Apnea) Ddd (Degenerative Disc Disease), Lumbar Spinal Stenosis of Lumbar Region Without Neurogenic Claudication Cervical Stenosis of Spine Coronary Artery Disease Involving [place] Coronary Artery of [place] Heart Without Angina Pectoris S/P Ptca (Percutaneous Transluminal Coronary Angioplasty) Status Post Insertion of Drug-Eluting Stent into Left Anterior Descending (Lad) Artery Benign Prostatic Hyperplasia With Urinary Obstruction Calculus of Ureter Depressive Disorder Elevated Liver Enzymes Erectile Dysfunction Obstructive Hydronephrosis Tobacco Dependence Syndrome Folate Deficiency PAST MEDICAL HISTORY Diagnosis Date Elevated white blood cell count has been reviewed by hematology. will follow periodically Fam hx-cardiovas dis NEC n/a father, of [place] at 45 Hypothyroid Other and unspecified hyperlipidemia [...] ATTACK AT AGE 45 Heart Mother no blockages, hyperlipidemia Breast Cancer Mother Diabetes Maternal Grandmother Breast Cancer Paternal Grandfather Hypertension Mother around age 60 Social History Tobacco Use Smoking status: Former Current packs/day: 0.00 Average packs/day: 1 pack/day for 17.0 years (17.0 ttl pk-yrs) Types: Cigarettes Start date: 10/08/2005 Quit date: 10/08/2022 Years since quittin.8 Smokeless tobacco: Current Tobacco comments: 06/27/2022 5 cigs/day Vaping Use Vaping status: Never Used Substance Use Topics Alcohol use: Yes Comment: occasionally (once every 2-3) Drug use: No ALLERGIES No Known Allergies MEDICATIONS: amLODIPine (NORVASC) 10 mg tablet Take 1 tablet by mouth once daily. aspirin, enteric coated (ASPIRIN, ENTERIC COATED) 81 mg EC tablet Take 1 tablet by mouth once daily. levothyroxine (SYNTHROID) 125 mcg tablet Take 1 tablet by mouth once daily. atorvastatin (LIPITOR) 40 mg tablet Take 1 tablet by mouth daily at bedtime. For cholesterol. folic acid 1 mg tablet Take 1 tablet by mouth once daily. iron fum,ps/folic acid/vitC/B3 (IRON FOLATE-F ORAL) Take by mouth. metFORMIN ER (GLUCOPHAGE XR) 500 mg 24 hr tablet Take 2 tablets by mouth two times a day. metoprolol succinate ER (TOPROL XL) 50 mg 24 hr tablet Take 1 tablet by mouth once daily. PARoxetine (PAXIL) 40 mg tablet Take 1 tablet by mouth once daily. isosorbide dinitrate (ISORDIL) 5 mg tablet Take 1 tablet by mouth two times a day. glimepiride (AMARYL) 2 mg tablet Take 1 tablet by mouth daily with breakfast. clopidogrel (PLAVIX) 75 mg tablet Take 75 mg by mouth once daily. nystatin-triamcinolone (MYCOLOG) ointment Apply sparingly to groin and penile rash twice daily for irritation/infection up to 2 weeks and then take 1 week off. predniSONE (DELTASONE) 10 mg tablet TAKE BY MOUTH ONE(1) TABLET THREE TIMES DAILY FOR 4 DAYS, THEN TAKE ONE(1) TABLET TWO(2) TIMES DAILY FOR 4 DAYS, THEN TAKE ONE(1) TABLET DAILY. (Patient not taking: Reported on 08/09/2024) diclofenac (VOLTAREN ARTHRITIS PAIN) 1 % topical gel Apply 2 g to affected area four times daily. (Patient not taking: Reported on 08/03/2024) blood sugar diagnostic (BLOOD GLUCOSE TEST) test strip Test blood sugar(s) 1 times daily. Dx: Type 2 DM - Uncontrolled E11.65 Insulin: No Lancets Test blood sugar(s) 1 times daily. Dx: Type 2 DM - Uncontrolled E11.65 Insulin: No Lancets lancets Test blood sugar(s) 1 times daily. Dx: Type 2 DM - Controlled E11.9 Insulin: No blood sugar diagnostic (BLOOD GLUCOSE TEST) test strip Test blood sugar(s) 1 times daily. Dx: Type 2 DM - Controlled E11.9 Insulin: No nitroglycerin sublingual (NITROQUICK) 0.4 mg SL tablet Nitroglycerin Active 0.4 MG SL Q5M October 24, 2022 12:00am COMPOUNDED PRESCRIPTION Initiate BiPAP @ 22/16 cm of water with humidification mask (per patient preference) optional chin strap (if indicated) and lifetime supplies DX: JOSIAH 327.23 Allergies, medications, past surgical history, family history and past medical history were reviewed per this encounter. Objective Ortho Exam 58-year-old male [facility] exam no acute distress. Evaluation of left knee shows no significant effusion redness or warmth to touch. Pain over the anterior joint line medially. Assessment/Plan ASSESSMENT Diagnosis (M17.12) Primary osteoarthritis of left knee (primary encounter diagnosis) No orders found for this visit on 08/26/24. PLAN Large Joint Arthro/Inj: L knee joint Informed Consent Consent Obtained: Verbal [place] Protocol A moment to CARE was completed. SIGN IN TIME OUT 08/26/2024 3:45 PM The procedure site was prepped in the usual sterile fashion. Site: L knee joint Medications: 3 mL hyaluronate sodium, stabilized 60 mg/3 mL Anesthetics: 2 mL lidocaine (PF) 10 mg/mL (1 %) Outcome: Tolerated well, no immediate complications Post-injection instructions were reviewed with the patient and the patient voiced understanding of these instructions. FOLLOW-UP: No follow-ups on file. SIGNATURE: Torsten Aviles DO PATIENT NAME: Nick Lopes DATE: August 26, 2024 TIME: 3:44 PM AMB ROOMING INTAKE FLOWSHEET DATA Pain Pain Level: 8 Pain Location: Knee-Left Description: Aching, Sharp, Stabbing, Stiffness Duration Amount of Time: (ongoing) Frequency: Continuous Intervention/Comfort measure: Exercise, Medication, Other: See comment, Cold (muscle rub) Durolane injection into left knee LOT # [id number] EXP 01/04/2027 Mary Dale MA documented in this encounter [facility] 08-26-2024 Note HNO ID: [id number] Author: MARY DALE MA Service: ? Author Type: Esol Teacher Assistant Type: Progress Notes Filed: 08/26/2024 15:48 Note Text: AMB ROOMING INTAKE FLOWSHEET DATA Pain Pain Level: 8 Pain Location: Knee-Left Description: Aching, Sharp, Stabbing, Stiffness Duration Amount of Time: (ongoing) Frequency: Continuous Intervention/Comfort measure: Exercise, Medication, Other: See comment, Cold (muscle rub) Durolane injection into left knee LOT # [id number] EXP 01/04/2027 Mary Dale MA [facility] 08-25-2024 Telephone encounter Note Patient has been identified by name and date of : Yes Marco phones for refill(s): Requested Prescriptions Pending Prescriptions Disp Refills amLODIPine (NORVASC) 10 mg tablet 90 tablet 3 Sig: Take 1 tablet by mouth once daily. aspirin, enteric coated (ASPIRIN, ENTERIC COATED) 81 mg EC tablet Sig: Take 1 tablet by mouth once daily. Date of last office visit in primary care: 08/09/2024 Date of next office visit in primary care: 02/08/2025 Please advise. Thank you. Jen Young. [facility] 08-25-2024 Miscellaneous Notes Patient has been identified by name and date of : Yes Marco phones for refill(s): Requested Prescriptions Pending Prescriptions Disp Refills amLODIPine (NORVASC) 10 mg tablet 90 tablet 3 Sig: Take 1 tablet by mouth once daily. aspirin, enteric coated (ASPIRIN, ENTERIC COATED) 81 mg EC tablet Sig: Take 1 tablet by mouth once daily. Date of last office visit in primary care: 08/09/2024 Date of next office visit in primary care: 02/08/2025 Please advise. Thank you. Jen Young. documented in this encounter [facility] 08-16-2024 Telephone encounter Note Patient has been authorized for Durolane injection. He has been contacted and scheduled. [facility] 08-16-2024 Miscellaneous Notes Patient has been authorized for Durolane injection. He has been contacted and scheduled. Patients Liliana phones to reports updating insurance information in patients chart. She could not give details on how this was completed, just that it was in his chart. I explained there was a chance the office was not aware of the update until time of this message. Patient would like a phone call on the approval/denial of injection. Gwendolyn Santiago MA Patient contacted for copy of insurance card to be uploaded into [employer]. Patient is on blood thinner- NSAID's are contra-indicated in his situation Additional Clinical Information Request Please reply all to this email Please provide the following information to facilitate or complete the prior authorization x Clinical Information - See Comments Sign OV Notes Clarify Information Updated / Correct Insurance Updated diagnosis code on order and or office note Medical Necessity Not Met Per Payer Guidelines Payer Request Additional Information Other (must complete Comment section) Patient Name: Nick lopes Appt Date: [facility] code(s) & drug name(s): [id number] radhames Comments: payer policy requires trial of nsaids- no mention in ov note- please advise is nsaid trial has been completed documented in this encounter [facility] 08-12-2024 Telephone encounter Note Patients Liliana phones to reports updating insurance information in patients chart. She could not give details on how this was completed, just that it was in his chart. I explained there was a chance the office was not aware of the update until time of this message. Patient would like a phone call on the approval/denial of injection. Gwendolyn Santiago MA [facility] 08-10-2024 Telephone encounter Note Patient informed and verbalized understanding. Kylie Tran MA [facility] 08-10-2024 Miscellaneous Notes Patient informed and verbalized understanding. Kylie Tran MA White count is slightly up. Likely ok. Call if any s/s of infection.recheck cbc in four weeks. Could be related to steroids. Sugars are rising. Watch diet. Recheck sugars with A1c in three months. documented in this encounter [facility] 08-10-2024 Telephone encounter Note White count is slightly up. Likely ok. Call if any s/s of infection.recheck cbc in four weeks. Could be related to steroids. Sugars are rising. Watch diet. Recheck sugars with A1c in three months. [facility] 08-10-2024 Telephone encounter Note Patient contacted for copy of insurance card to be uploaded into [employer]. [facility] 08-09-2024 History of Present illness Narrative Patient presents with: Follow Up HPI: Patient presents today for office visit for routine follow up on chronic issues. HLD: Continues Atorvastatin 40 mg daily. No myalgias. DM: Sugars are much better Last A1c in March 6.5 down from 11.1 Continues on Glimepiride 2 mg daily Metformin 500 mg 2 tabs BID Does not monitor sugars often No hypoglycemic spells No unexpected weight loss Does not watch his diet Believes his eyes were checked back in summer at [facility]. Folate added back in March. Anemia stable. Due for labs. THYROID: Continues Levothyroxine 125 mcg daily Denies any energy, hair or skin changes. No weight changes. No longer sees Cardiology. HTN: Monitors BP at home. Denies chest pain and shortness of breath Some mild headaches. Denies dizziness Denies palpitations or syncopal episodes No edema JOSIAH: DME: [employer], [place]. Needs new machine and supplies Last PSG with titration March 2018 Using BiPAP nightly No snoring Sleeping well through the night Feels rested when waking Some daytime fatigue Benefiting from treatment and should continue therapy Machine is saying it is not working. Needs replaced. Having issues with the motor. Has checked with his supplier. PSYCH: Continues Paxil 40 mg daily Feels anger is controlled with med No current anxiety or depression MEDICATIONS: Current Outpatient Medications Medication Sig levothyroxine (SYNTHROID) 125 mcg tablet Take 1 tablet by mouth once daily. atorvastatin (LIPITOR) 40 mg tablet Take 1 tablet by mouth daily at bedtime. For cholesterol. folic acid 1 mg tablet Take 1 tablet by mouth once daily. iron fum,ps/folic acid/vitC/B3 (IRON FOLATE-F ORAL) Take by mouth. blood sugar diagnostic (BLOOD GLUCOSE TEST) test strip Test blood sugar(s) 1 times daily. Dx: Type 2 DM - Uncontrolled E11.65 Insulin: No Lancets Test blood sugar(s) 1 times daily. Dx: Type 2 DM - Uncontrolled E11.65 Insulin: No metFORMIN ER (GLUCOPHAGE XR) 500 mg 24 hr tablet Take 2 tablets by mouth two times a day. metoprolol succinate ER (TOPROL XL) 50 mg 24 hr tablet Take 1 tablet by mouth once daily. PARoxetine (PAXIL) 40 mg tablet Take 1 tablet by mouth once daily. isosorbide dinitrate (ISORDIL) 5 mg tablet Take 1 tablet by mouth two times a day. Lancets lancets Test blood sugar(s) 1 times daily. Dx: Type 2 DM - Controlled E11.9 Insulin: No glimepiride (AMARYL) 2 mg tablet Take 1 tablet by mouth daily with breakfast. amLODIPine (NORVASC) 10 mg tablet Take 1 tablet by mouth once daily. blood sugar diagnostic (BLOOD GLUCOSE TEST) test [...] MG SL Q5M October 24, 2022 12:00am nystatin-triamcinolone (MYCOLOG) ointment Apply sparingly to groin and penile rash twice daily for irritation/infection up to 2 weeks and then take 1 week off. COMPOUNDED PRESCRIPTION Initiate BiPAP @ 22/16 cm of water with humidification mask (per patient preference) optional chin strap (if indicated) and lifetime supplies DX: JOSIAH 327.23 predniSONE (DELTASONE) 10 mg tablet TAKE BY MOUTH ONE(1) TABLET THREE TIMES DAILY FOR 4 DAYS, THEN TAKE ONE(1) TABLET TWO(2) TIMES DAILY FOR 4 DAYS, THEN TAKE ONE(1) TABLET DAILY. (Patient not taking: Reported on 08/09/2024) diclofenac (VOLTAREN ARTHRITIS PAIN) 1 % topical gel Apply 2 g to affected area four times daily. (Patient not taking: Reported on 08/03/2024) No current facility-administered medications for this visit. ALLERGIES: ALLERGIES No Known Allergies PAST MEDICAL HISTORY Diagnosis Date Elevated white blood cell count has been reviewed by hematology. will follow periodically Fam hx-cardiovas dis NEC n/a father, of [place] at 45 Hypothyroid Other and unspecified hyperlipidemia [...] ATTACK AT AGE 45 Heart Mother no blockages, hyperlipidemia Breast Cancer Mother Diabetes Maternal Grandmother Breast Cancer Paternal Grandfather Hypertension Mother around age 60 Social History Tobacco Use Smoking status: Former Current packs/day: 0.00 Average packs/day: 1 pack/day for 17.0 years (17.0 ttl pk-yrs) Types: Cigarettes Start date: 10/08/2005 Quit date: 10/08/2022 Years since quittin.8 Smokeless tobacco: Current Tobacco comments: 06/27/2022 5 cigs/day Vaping Use Vaping status: Never Used Substance Use Topics Alcohol use: Yes Comment: occasionally (once every 2-3) Drug use: No Reviewed current medications, allergies, past medical history, surgical history, family history and social history today. REVIEW OF SYSTEMS All other reviewed and negative other than HPI. HEALTH MAINTENANCE: Reviewed health maintenance issues today and recommended the following in detail. Dilated Retinal- checked in summer. BP Controlled (<130/80) Never done Colorectal Cancer Screening Never done Shingrix Vaccine(2 of 2) due on 08/22/2022 Influenza Vaccine(1) due on 05/08/2024 Covid-19 Vaccine( season) Never done VITALS: BP 134/88 Pulse 75 Ht 166.4 cm (5' 5.5) Wt (!) 140.8 kg (310 lb 6.5 oz) SpO2 96% BMI 50.87 kg/m Last 4 Encounter Wt Readings: Date: Wt: 05/04/2024 133.4 kg (294 lb) 03/28/2024 132.5 kg (292 lb) 10/30/2023 133.7 kg (294 lb 12.8 oz) 10/24/2023 129.5 kg (285 lb 9.6 oz) PHYSICAL EXAMINATION: General appearance: Well appearing, [...] joint swelling, deformity, or tenderness ASSESSMENT/PLAN: 1. JOSIAH (obstructive sleep apnea) - ICD9: 327.23, ICD10: G47.33 (primary diagnosis) - get new bipap. Benefits from its use. - DME SUPPLY OR ACCESSORY, NOS 2. Encounter for immunization - ICD9: V03.89, ICD10: Z23 - INFLUENZA VACCINE, AGE 6MO-64YR, TRIVALENT (AFLURIA, FLULAVAL, FLUVIRIN, FLUZONE) 3. Hyperlipidemia, unspecified hyperlipidemia type - ICD9: 272.4, ICD10: E78.5 - Controlled - Continue current medications 4. Essential hypertension, benign - ICD9: 401.1, ICD10: I10 - Controlled - Continue current medications 5. Family history of heart disease - ICD9: V17.49, ICD10: Z82.49 - stable. 6. Folate deficiency - ICD9: 266.2, ICD10: E53.8 - COMPLETE BLOOD COUNT AND DIFFERENTIAL - FOLATE, SERUM 7. Hypothyroidism, unspecified type - ICD9: 244.9, ICD10: E03.9 - stable. 8. Controlled type 2 diabetes mellitus without complication, without long-term current use of insulin (HCC) - ICD9: 250.00, ICD10: E11.9 - stable. Check labs. - HEMOGLOBIN A1C 9. Screening for colon cancer - ICD9: V76.51, ICD10: Z12.11 - COLOGUARD Ginger Lugo MD documented in this encounter [facility] 08-09-2024 Note HNO ID: [id number] Author: GINGER LUGO MD Service: ? Author Type: Physician Type: Progress Notes Filed: 08/09/2024 13:32 Note Text: Patient presents with: Follow Up HPI: Patient presents today for office visit for routine follow up on chronic issues. HLD: Continues Atorvastatin 40 mg daily. No myalgias. DM: Sugars are much better Last A1c in March 6.5 down from 11.1 Continues on Glimepiride 2 mg daily Metformin 500 mg 2 tabs BID Does not monitor sugars often No hypoglycemic spells No unexpected weight loss Does not watch his diet Believes his eyes were checked back in summer at [facility]. Folate added back in March. Anemia stable. Due for labs. THYROID: Continues Levothyroxine 125 mcg daily Denies any energy, hair or skin changes. No weight changes. No longer sees Cardiology. HTN: Monitors BP at home. Denies chest pain and shortness of breath Some mild headaches. Denies dizziness Denies palpitations or syncopal episodes No edema JOSIAH: DME: Nadege Payton. Needs new machine and supplies Last PSG with titration March 2018 Using BiPAP nightly No snoring Sleeping well through the night Feels rested when waking Some daytime fatigue Benefiting from treatment and should continue therapy Machine is saying it is not working. Needs replaced. Having issues with the motor. Has checked with his supplier. PSYCH: Continues Paxil 40 mg daily Feels anger is controlled with med No current anxiety or depression MEDICATIONS: Current Outpatient Medications Medication Sig levothyroxine (SYNTHROID) 125 mcg tablet Take 1 tablet by mouth once daily. atorvastatin (LIPITOR) 40 mg tablet Take 1 tablet by mouth daily at bedtime. For cholesterol. folic acid 1 mg tablet Take 1 tablet by mouth once daily. iron fum,ps/folic acid/vitC/B3 (IRON FOLATE-F ORAL) Take by mouth. blood sugar diagnostic (BLOOD GLUCOSE TEST) test strip Test blood sugar(s) 1 times daily. Dx: Type 2 DM - Uncontrolled E11.65 Insulin: No Lancets Test blood sugar(s) 1 times daily. Dx: Type 2 DM - Uncontrolled E11.65 Insulin: No metFORMIN ER (GLUCOPHAGE XR) 500 mg 24 hr tablet Take 2 tablets by mouth two times a day. metoprolol succinate ER (TOPROL XL) 50 mg 24 hr tablet Take 1 tablet by mouth once daily. PARoxetine (PAXIL) 40 mg tablet Take 1 tablet by mouth once daily. isosorbide dinitrate (ISORDIL) 5 mg tablet Take 1 tablet by mouth two times a day. Lancets lancets Test blood sugar(s) 1 times daily. Dx: Type 2 DM - Controlled E11.9 Insulin: No glimepiride (AMARYL) 2 mg tablet Take 1 tablet by mouth daily with breakfast. amLODIPine (NORVASC) 10 mg tablet Take 1 tablet by mouth once daily. blood sugar diagnostic (BLOOD GLUCOSE TEST) test [...] MG SL Q5M October 24, 2022 12:00am nystatin-triamcinolone (MYCOLOG) ointment Apply sparingly to groin and penile rash twice daily for irritation/infection up to 2 weeks and then take 1 week off. COMPOUNDED PRESCRIPTION Initiate BiPAP @ 22/16 cm of water with humidification mask (per patient preference) optional chin strap (if indicated) and lifetime supplies DX: JOSIAH 327.23 predniSONE (DELTASONE) 10 mg tablet TAKE BY MOUTH ONE(1) TABLET THREE TIMES DAILY FOR 4 DAYS, THEN TAKE ONE(1) TABLET TWO(2) TIMES DAILY FOR 4 DAYS, THEN TAKE ONE(1) TABLET DAILY. (Patient not taking: Reported on 08/09/2024) diclofenac (VOLTAREN ARTHRITIS PAIN) 1 % topical gel Apply 2 g to affected area four times daily. (Patient not taking: Reported on 08/03/2024) No current facility-administered medications for this visit. ALLERGIES: ALLERGIES No Known Allergies PAST MEDICAL HISTORY Diagnosis Date Elevated white blood cell count has been reviewed by hematology. will follow periodically Fam hx-cardiovas dis NEC n/a father, of [place] at 45 Hypothyroid Other and unspecified hyperlipidemia [...] ATTACK AT AGE 45 Heart Mother no blockages, hyperlipidemia Breast Cancer Mother Diabetes Maternal Grandmother Breast Cancer Paternal Grandfather Hypertension Mother around age 60 Social History Tobacco Use Smoking (more content not included)... [facility] 08-08-2024 Telephone encounter Note Patient is on blood thinner- NSAID's are contra-indicated in his situation [facility] 08-05-2024 Telephone encounter Note Additional Clinical Information Request Please reply all to this email Please provide the following information to facilitate or complete the prior authorization x Clinical Information - See Comments Sign OV Notes Clarify Information Updated / Correct Insurance Updated diagnosis code on order and or office note Medical Necessity Not Met Per Payer Guidelines Payer Request Additional Information Other (must complete Comment section) Patient Name: Nick lopes Appt Date: HCPCS code(s) & drug name(s): [id number] radhames Comments: payer policy requires trial of nsaids- no mention in ov note- please advise is nsaid trial has been completed [facility] 08-03-2024 Note HNO ID: [id number] Author: TORSTEN AVILES, DO Service: ? Author Type: Physician Type: Progress Notes Filed: 08/03/2024 15:00 Note Text: SERVICE DATE: August 03, 2024 PCP: Ginger Lugo MD Subjective Patient ID: Nick is a 53 year old male. Chief Complaint: Patient presents with: 12 week 5 days post visit left knee pain with injection giv PAIN EVALUATION 08/03/2024 1422 Pain Level: 10 Pain Location: Knee-Left Description: Tightness;Aching Duration Amount of Time: -- ongoing Frequency: Continuous Intervention/Comfort measure: Heat;Cold;Other: See comment;Exercise muscle rubs, knee brace, cane use HPI Nick presents today for follow-up of left knee pain/medial compartment osteoarthritis. He is 12 weeks and 5 days post last visit cortisone injection was given. He states the cortisone injection did not provide any relief. He is also completed 6 weeks of physical therapy with no significant benefit. He continues to have significant pain over the medial knee when he tries to stand or walk. He states that the pain is so severe he is having difficulty going up or down stairs. 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 Urinary Incontinence Central Sleep Apnea Diabetes Mellitus Type 2, Controlled, Without Complications (Hcc) Obesity, Class Iii, Bmi 40-49.9 (Morbid Obesity) (Formerly [facility]) Situational Stress Theo (Generalized Anxiety Disorder) Josiah (Obstructive Sleep Apnea) Ddd (Degenerative Disc Disease), Lumbar Spinal Stenosis of Lumbar Region Without Neurogenic Claudication Cervical Stenosis of Spine Coronary Artery Disease Involving [place] Coronary Artery of [place] Heart Without Angina Pectoris S/P Ptca (Percutaneous Transluminal Coronary Angioplasty) Status Post Insertion of Drug-Eluting Stent into Left Anterior Descending (Lad) Artery Benign Prostatic Hyperplasia With Urinary Obstruction Calculus of Ureter Depressive Disorder Elevated Liver Enzymes Erectile Dysfunction Obstructive Hydronephrosis Tobacco Dependence Syndrome Folate Deficiency PAST MEDICAL HISTORY Diagnosis Date Elevated white blood cell count has been reviewed by hematology. will follow periodically Fam hx-cardiovas dis NEC n/a father, of [place] at 45 Hypothyroid Other and unspecified hyperlipidemia [...] ATTACK AT AGE 45 Heart Mother no blockages, hyperlipidemia Breast Cancer Mother Diabetes Maternal Grandmother Breast Cancer Paternal Grandfather Hypertension Mother around age 60 Social History Tobacco Use Smoking status: Former Current packs/day: 0.00 Average packs/day: 1 pack/day for 17.0 years (17.0 ttl pk-yrs) Types: Cigarettes Start date: 10/08/2005 Quit date: 10/08/2022 Years since quittin.8 Smokeless tobacco: Current Tobacco comments: 06/27/2022 5 cigs/day Vaping Use Vaping status: Never Used Substance Use Topics Alcohol use: Yes Comment: occasionally (once every 2-3) Drug use: No ALLERGIES No Known Allergies MEDICATIONS: levothyroxine (SYNTHROID) 125 mcg tablet Take 1 tablet by mouth once daily. atorvastatin (LIPITOR) 40 mg tablet Take 1 tablet by mouth daily at bedtime. For cholesterol. folic acid 1 mg tablet Take 1 tablet by mouth once daily. metFORMIN ER (GLUCOPHAGE XR) 500 mg 24 hr tablet Take 2 tablets by mouth two times a day. metoprolol succinate ER (TOPROL XL) 50 mg 24 hr tablet Take 1 tablet by mouth once daily. PARoxetine (PAXIL) 40 mg tablet Take 1 tablet by mouth once daily. isosorbide dinitrate (ISORDIL) 5 mg tablet Take 1 tablet by mouth two times a day. glimepiride (AMARYL) 2 mg tablet Take 1 tablet by mouth daily with breakfast. amLODIPine (NORVASC) 10 mg tablet Take 1 tablet by mouth once daily. clopidogrel (PLAVIX) 75 mg tablet Take 75 mg by mouth once daily. aspirin, enteric coated (ASPIRIN, ENTERIC COATED) 81 mg EC tablet Take 81 mg by mouth once daily. nystatin-triamcinolone (MYCOLOG) ointment Apply sparingly to groin and penile rash twice daily for irritation/infection up to 2 weeks and then take 1 week off. predniSONE (DELTASONE) 10 mg tablet TAKE BY MOUTH ONE(1) TABLET THREE TIMES RAYRAY (more content not included)... [facility] 08-03-2024 History of Present illness Narrative Images from the original note were not included. SERVICE DATE: August 03, 2024 PCP: Ginger Lugo MD Subjective Patient ID: Nick is a 53 year old male. Chief Complaint: Patient presents with: 12 week 5 days post visit left knee pain with injection giv PAIN EVALUATION 08/03/2024 1422 Pain Level: 10 Pain Location: Knee-Left Description: Tightness;Aching Duration Amount of Time: -- ongoing Frequency: Continuous Intervention/Comfort measure: Heat;Cold;Other: See comment;Exercise muscle rubs, knee brace, cane use HPI Nick presents today for follow-up of left knee pain/medial compartment osteoarthritis. He is 12 weeks and 5 days post last visit cortisone injection was given. He states the cortisone injection did not provide any relief. He is also completed 6 weeks of physical therapy with no significant benefit. He continues to have significant pain over the medial knee when he tries to stand or walk. He states that the pain is so severe he is having difficulty going up or down stairs. 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 Urinary Incontinence Central Sleep Apnea Diabetes Mellitus Type 2, Controlled, Without Complications (Formerly [facility]) Obesity, Class Iii, Bmi 40-49.9 (Morbid Obesity) (Formerly [facility]) Situational Stress Theo (Generalized Anxiety Disorder) Josiah (Obstructive Sleep Apnea) Ddd (Degenerative Disc Disease), Lumbar Spinal Stenosis of Lumbar Region Without Neurogenic Claudication Cervical Stenosis of Spine Coronary Artery Disease Involving [place] Coronary Artery of [place] Heart Without Angina Pectoris S/P Ptca (Percutaneous Transluminal Coronary Angioplasty) Status Post Insertion of Drug-Eluting Stent into Left Anterior Descending (Lad) Artery Benign Prostatic Hyperplasia With Urinary Obstruction Calculus of Ureter Depressive Disorder Elevated Liver Enzymes Erectile Dysfunction Obstructive Hydronephrosis Tobacco Dependence Syndrome Folate Deficiency PAST MEDICAL HISTORY Diagnosis Date Elevated white blood cell count has been reviewed by hematology. will follow periodically Fam hx-cardiovas dis NEC n/a father, of [place] at 45 Hypothyroid Other and unspecified hyperlipidemia [...] ATTACK AT AGE 45 Heart Mother no blockages, hyperlipidemia Breast Cancer Mother Diabetes Maternal Grandmother Breast Cancer Paternal Grandfather Hypertension Mother around age 60 Social History Tobacco Use Smoking status: Former Current packs/day: 0.00 Average packs/day: 1 pack/day for 17.0 years (17.0 ttl pk-yrs) Types: Cigarettes Start date: 10/08/2005 Quit date: 10/08/2022 Years since quittin.8 Smokeless tobacco: Current Tobacco comments: 06/27/2022 5 cigs/day Vaping Use Vaping status: Never Used Substance Use Topics Alcohol use: Yes Comment: occasionally (once every 2-3) Drug use: No ALLERGIES No Known Allergies MEDICATIONS: levothyroxine (SYNTHROID) 125 mcg tablet Take 1 tablet by mouth once daily. atorvastatin (LIPITOR) 40 mg tablet Take 1 tablet by mouth daily at bedtime. For cholesterol. folic acid 1 mg tablet Take 1 tablet by mouth once daily. metFORMIN ER (GLUCOPHAGE XR) 500 mg 24 hr tablet Take 2 tablets by mouth two times a day. metoprolol succinate ER (TOPROL XL) 50 mg 24 hr tablet Take 1 tablet by mouth once daily. PARoxetine (PAXIL) 40 mg tablet Take 1 tablet by mouth once daily. isosorbide dinitrate (ISORDIL) 5 mg tablet Take 1 tablet by mouth two times a day. glimepiride (AMARYL) 2 mg tablet Take 1 tablet by mouth daily with breakfast. amLODIPine (NORVASC) 10 mg tablet Take 1 tablet by mouth once daily. clopidogrel (PLAVIX) 75 mg tablet Take 75 mg by mouth once daily. aspirin, enteric coated (ASPIRIN, ENTERIC COATED) 81 mg EC tablet Take 81 mg by mouth once daily. nystatin-triamcinolone (MYCOLOG) ointment Apply sparingly to groin and penile rash twice daily for irritation/infection up to 2 weeks and then take 1 week off. predniSONE (DELTASONE) 10 mg tablet TAKE BY MOUTH ONE(1) TABLET THREE TIMES DAILY FOR 4 DAYS, THEN TAKE ONE(1) TABLET TWO(2) TIMES DAILY FOR 4 DAYS, THEN TAKE ONE(1) TABLET DAILY. diclofenac (VOLTAREN ARTHRITIS PAIN) 1 % topical gel Apply 2 g to affected area four times daily. (Patient not taking: Reported on 08/03/2024) iron fum,ps/folic acid/vitC/B3 (IRON FOLATE-F ORAL) Take by mouth. blood sugar diagnostic (BLOOD GLUCOSE TEST) test strip Test blood sugar(s) 1 times daily. Dx: Type 2 DM - Uncontrolled E11.65 Insulin: No Lancets Test blood sugar(s) 1 times daily. Dx: Type 2 DM - Uncontrolled E11.65 Insulin: No Lancets lancets Test blood sugar(s) 1 times daily. Dx: Type 2 DM - Controlled E11.9 Insulin: No blood sugar diagnostic (BLOOD GLUCOSE TEST) test strip Test blood sugar(s) 1 times daily. Dx: Type 2 DM - Controlled E11.9 Insulin: No nitroglycerin sublingual (NITROQUICK) 0.4 mg SL tablet Nitroglycerin Active 0.4 MG SL Q5M October 24, 2022 12:00am COMPOUNDED PRESCRIPTION Initiate BiPAP @ 22/16 cm of water with humidification mask (per patient preference) optional chin strap (if indicated) and lifetime supplies DX: JOSIAH 327.23 Allergies, medications, past surgical history, family history and past medical history were reviewed per this encounter. Objective Ortho Exam 53-year-old male is pleasant cooperative exam in no acute distress. Evaluation of the left knee shows mild swelling noted. No redness or warmth to touch. There is pain over the medial joint line with direct palpation. There is mild crepitus with range of motion testing. MRI is reviewed with the patient and shows medial compartment arthritis but no significant soft tissue or ligament damage. Assessment/Plan ASSESSMENT Diagnosis (M17.12) Primary osteoarthritis of left knee (primary encounter diagnosis) No orders found for this visit on 08/03/24. PLAN I recommend proceeding with viscosupplement injection once prior authorized to see if it provides relief for the medial compartment arthritis. If no significant improvement or if unable to approve the injection, I would recommend referral for surgical consultation at this point. FOLLOW-UP: No follow-ups on file. SIGNATURE: Torsten Aviles DO PATIENT NAME: Nick Lopes DATE: August 03, 2024 TIME: 2:58 PM AMB ROOMING INTAKE FLOWSHEET DATA Pain Pain Level: 10 Pain Location: Knee-Left Description: Tightness, Aching Duration Amount of Time: (ongoing) Frequency: Continuous Intervention/Comfort measure: Heat, Cold, Other: See comment, Exercise (muscle rubs, knee brace, cane use) documented in this encounter [facility] 08-03-2024 Note HNO ID: [id number] Author: MARY DALE MA Service: ? Author Type: Esol Teacher Assistant Type: Progress Notes Filed: 08/03/2024 15:00 Note Text: AMB ROOMING INTAKE FLOWSHEET DATA Pain Pain Level: 10 Pain Location: Knee-Left Description: Tightness, Aching Duration Amount of Time: (ongoing) Frequency: Continuous Intervention/Comfort measure: Heat, Cold, Other: See comment, Exercise (muscle rubs, knee brace, cane use) [facility] 07-27-2024 Telephone encounter Note The patient has been identified by name and date of : Yes Caregiver verified no other encounters exist for this prescription request: Yes Caregiver confirmed with patient/requestor that no other refills are due, in the near future, with this provider at this time: Yes The last office visit in the department: 05/04/2024 Does the patient have a future office visit with this provider/department: Yes 09/30/2024 Requested Prescriptions Pending Prescriptions Disp Refills levothyroxine (SYNTHROID) 125 mcg tablet 90 tablet 3 Sig: Take 1 tablet by mouth once daily. atorvastatin (LIPITOR) 40 mg tablet 90 tablet 0 Sig: Take 1 tablet by mouth daily at bedtime. For cholesterol. Danielle Mann LPN July 27, 2024 7:49 AM [facility] 07-27-2024 Miscellaneous Notes The patient has been identified by name and date of : Yes Caregiver verified no other encounters exist for this prescription request: Yes Caregiver confirmed with patient/requestor that no other refills are due, in the near future, with this provider at this time: Yes The last office visit in the department: 05/04/2024 Does the patient have a future office visit with this provider/department: Yes 09/30/2024 Requested Prescriptions Pending Prescriptions Disp Refills levothyroxine (SYNTHROID) 125 mcg tablet 90 tablet 3 Sig: Take 1 tablet by mouth once daily. atorvastatin (LIPITOR) 40 mg tablet 90 tablet 0 Sig: Take 1 tablet by mouth daily at bedtime. For cholesterol. Danielle Mann LPN July 27, 2024 7:49 AM documented in this encounter [facility] 07-25-2024 Telephone encounter Note Patient is not eligible for cortisone injection until after 08/05/2024. [facility] 07-25-2024 Miscellaneous Notes Patient is not eligible for cortisone injection until after 08/05/2024. Patients called in and states he has been having pain in his knee which he is rating a 10 on the pain scale. He is wondering if he is able to get shots or something for the pain as it is causing him to have problems walking. would like a call back at [phone]. Lu Jenkins LPN documented in this encounter [facility] 07-25-2024 Telephone encounter Note Patients called in and states he has been having pain in his knee which he is rating a 10 on the pain scale. He is wondering if he is able to get shots or something for the pain as it is causing him to have problems walking. would like a call back at [phone]. Lu Jenkins LPN [facility] 06-24-2024 Telephone encounter Note Forms completed and returned to [employer]. Confirmation received. Copy sent for scanning. Called [facility] to request records for past visits. [facility] 06-24-2024 Miscellaneous Notes Forms completed and returned to [facility]. Confirmation received. Copy sent for scanning. Called [facility] to request records for past visits. Patients returned phone call from Mary. PT is [facility] in [place]. Off work date is 05/13/24. Gwendolyn Santiago MA I called and left a message for the patient to contact the office. Received FMLA paperwork for him. Need to know..... Where is the patient doing his PT so we can get reports. 2. What was the first day not worked? Type of form: FMLA Form received via fax When form is completed, Fax form to Dwight Chandler at [phone] Form has been forwarded to Dr. Aviles for signature. Mary Dale MA documented in this encounter [facility] 06-24-2024 Telephone encounter Note Patients returned phone call from Mary. PT is [facility] in [place]. Off work date is 05/13/24. Gwendolyn Santiago MA [facility] 06-24-2024 Telephone encounter Note I called and left a message for the patient to contact the office. Received FMLA paperwork for him. Need to know..... Where is the patient doing his PT so we can get reports. 2. What was the first day not worked? [facility] 06-24-2024 Telephone encounter Note Type of form: FMLA Form received via fax When form is completed, Fax form to Dwight Chandler at [phone] Form has been forwarded to Dr. Aviles for signature. Mary Dale MA [facility] 06-16-2024 Telephone encounter Note Letter completed and sent to patient in [employer] as requested. [facility] 06-16-2024 Miscellaneous Notes Letter completed and sent to patient in [employer] as requested. Liliana called. Verified name and date of . Patient is doing physical therapy. Physical therapy does not recommend patient to return to work until it is completed. It is projected to finish July 15, 2024. His currently only off of work through June 22, 2024 and needs extension written. Okay to send extension via [employer]. Shayna Romero LPN documented in this encounter [facility] 06-16-2024 Telephone encounter Note Liliana called. Verified name and date of . Patient is doing physical therapy. Physical therapy does not recommend patient to return to work until it is completed. It is projected to finish July 15, 2024. His currently only off of work through June 22, 2024 and needs extension written. Okay to send extension via [employer]. Shayna Romero LPN [facility] 06-01-2024 Telephone encounter Note Letter written in My chart encounter. [facility] 06-01-2024 Miscellaneous Notes Letter written in My chart encounter. Patients called in requesting information regarding what needs step by be and if he can have note to either write him off work longer and a note to send him back to work. Please advise. Sienna Pina LPN Patients called requesting a work note To return to work or to be off longer with PT because he's still in pain Please advise documented in this encounter [facility] 05-31-2024 Telephone encounter Note Letter written and sent through my chart per patient's request. [facility] 05-31-2024 Miscellaneous Notes Letter written and sent through my chart per patient's request. documented in this encounter [facility] 05-31-2024 Telephone encounter Note Patients called in requesting information regarding what needs step by be and if he can have note to either write him off work longer and a note to send him back to work. Please advise. Sienna Pina LPN [facility] Work Phone: 05-30-2024 Telephone encounter Note Patients called requesting a work note To return to work or to be off longer with PT because he's still in pain Please advise [facility] Work Phone: 05-29-2024 Telephone encounter Note notified pt. Yojana Gonsales MA [facility] 05-29-2024 Miscellaneous Notes notified pt. Yojana Gonsales MA documented in this encounter [facility] 05-26-2024 History of Present illness Narrative Radiology Service Progress Note PATIENT NAME: Nick Lopes DATE OF SERVICE: May 26, 2024 TIME: 8:06 AM PATIENT IDENTITY VERIFICATION COMPLETED USING TWO (2) IDENTIFIERS: Name and Date of confirmed by patient verbally. FALL SCREENING: Has the patient had 2 falls in the last year or 1 fall with injury or currently using an Ambulatory Assistive Device (Walker, Cane, Wheelchair, Crutches, etc.)? No PATIENT GENDER DATA: Male PATIENT RELEVANT IMPLANT DATA REVIEWED: Yes PATIENT PRESENTS WITH AN IMPLANTABLE OR ATTACHED DIE MAKER BENCH STAMPING: No RADIOLOGY DEPARTMENT: MR; Exam(s) Completed: Lower MSK: Knee, left PERIPHERAL IV DATA: Not applicable SIGNED BY: RT Rina(R) May 26, 2024 8:06 AM documented in this encounter [facility] 05-23-2024 Telephone encounter Note Prescription Refill Information The patient has been identified by name and date of : Yes Caregiver verified no other encounters exist for this prescription request: Yes Caregiver confirmed with patient/requestor that no other refills are due, in the near future, with this provider at this time: Yes The last office visit in the department: 05/04/24 Does the patient have a future office visit with this provider/department: Yes 09/30/24 Requested Prescriptions Pending Prescriptions Disp Refills folic acid 1 mg tablet 90 tablet 3 Sig: Take 1 tablet by mouth once daily. Pat Tse LPN May 23, 2024 9:25 AM [facility] 05-23-2024 Telephone encounter Note Prescription Refill Information The patient has been identified by name and date of : Yes Caregiver verified no other encounters exist for this prescription request: Yes Caregiver confirmed with patient/requestor that no other refills are due, in the near future, with this provider at this time: Yes The last office visit in the department: 05/04/24 Does the patient have a future office visit with this provider/department: Yes 09/30/24 Requested Prescriptions Pending Prescriptions Disp Refills atorvastatin (LIPITOR) 40 mg tablet 90 tablet 0 Sig: Take 1 tablet by mouth daily at bedtime. For cholesterol. Pat Tse LPN May 23, 2024 9:24 AM [facility] 05-23-2024 Miscellaneous Notes Prescription Refill Information The patient has been identified by name and date of : Yes Caregiver verified no other encounters exist for this prescription request: Yes Caregiver confirmed with patient/requestor that no other refills are due, in the near future, with this provider at this time: Yes The last office visit in the department: 05/04/24 Does the patient have a future office visit with this provider/department: Yes 09/30/24 Requested Prescriptions Pending Prescriptions Disp Refills atorvastatin (LIPITOR) 40 mg tablet 90 tablet 0 Sig: Take 1 tablet by mouth daily at bedtime. For cholesterol. Pat Tse LPN May 23, 2024 9:24 AM documented in this encounter [facility] 05-23-2024 Miscellaneous Notes Prescription Refill Information The patient has been identified by name and date of : Yes Caregiver verified no other encounters exist for this prescription request: Yes Caregiver confirmed with patient/requestor that no other refills are due, in the near future, with this provider at this time: Yes The last office visit in the department: 05/04/24 Does the patient have a future office visit with this provider/department: Yes 09/30/24 Requested Prescriptions Pending Prescriptions Disp Refills folic acid 1 mg tablet 90 tablet 3 Sig: Take 1 tablet by mouth once daily. Pat Tse LPN May 23, 2024 9:25 AM documented in this encounter [facility] 05-16-2024 Telephone encounter Note See Thubrikar Aortic Valvehart message [facility] 05-16-2024 Miscellaneous Notes See Securust message documented in this encounter [facility] 05-06-2024 History of Present illness Narrative Associated Order(s): Large Joint Arthro/Inj: R anserine bursa Post-Procedure Diagnose(s): Medial knee pain, left Images from the original note were not included. SERVICE DATE: May 06, 2024 PCP: Ginger Lugo MD Subjective Patient ID: Nick is a 53 year old male. Chief Complaint: Patient presents with: 4 week 2 days post visit left knee pain with cortisone inje PAIN EVALUATION 05/06/2024 1415 Pain Level: 8 Pain Location: Knee-Left Description: Sore;Aching Duration Amount of Time: -- ongoing Frequency: Continuous Intervention/Comfort measure: Medication;Cold HPI Mr. Lopes is here for a follow-up of the left knee pain. He reports continued pain along the medial and posterior aspect of the left knee. States he has to walk with a limp because of the pain. Been using Voltaren gel with minimal improvement. He does not take oral NSAIDs because he is on Plavix. He denies fever or chills. He denies redness or warmth to touch of the knee. 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 Urinary Incontinence Central Sleep Apnea Diabetes Mellitus Type 2, Controlled, Without Complications (Formerly [facility]) Obesity, Class Iii, Bmi 40-49.9 (Morbid Obesity) (Formerly [facility]) Situational Stress Theo (Generalized Anxiety Disorder) Josiah (Obstructive Sleep Apnea) Ddd (Degenerative Disc Disease), Lumbar Spinal Stenosis of Lumbar Region Without Neurogenic Claudication Cervical Stenosis of Spine Coronary Artery Disease Involving [place] Coronary Artery of [place] Heart Without Angina Pectoris S/P Ptca (Percutaneous Transluminal Coronary Angioplasty) Status Post Insertion of Drug-Eluting Stent into Left Anterior Descending (Lad) Artery Benign Prostatic Hyperplasia With Urinary Obstruction Calculus of Ureter Depressive Disorder Elevated Liver Enzymes Erectile Dysfunction Obstructive Hydronephrosis Tobacco Dependence Syndrome Folate Deficiency PAST MEDICAL HISTORY No date: Elevated white blood cell count Comment: has been reviewed by hematology. will follow periodically n/a: Fam hx-cardiovas dis NEC Comment: father, of AL at 45 No date: Hypothyroid Sep 14: Other and unspecified hyperlipidemia Comment: (dx'd in hospital for atypical CP) No date: Overweight(278.02) No date: Sleep apnea 1989: Tobacco use disorder complicating , childbirth, or the puerperium, unspecified as to episode of care or not applicable No date: Unspecified essential hypertension PAST SURGICAL HISTORY 2004: EXCISION OF BENIGN LESION, COMPLICATED Comment: Lipoma, abdominal wall, [facility] age 4+/-: TONSILLECTOMY PRIMARY/SECONDARY <AGE 12 Comment: Tonsillectomy FAMILY HISTORY Problem Relation Age of Onset Heart Father of HEART ATTACK AT AGE 45 Heart Mother no blockages, hyperlipidemia Breast Cancer Mother Diabetes Maternal Grandmother Breast Cancer Paternal Grandfather Hypertension Mother around age 60 Social History Tobacco Use Smoking status: Former Current packs/day: 0.00 Average packs/day: 1 pack/day for 17.0 years (17.0 ttl pk-yrs) Types: Cigarettes Start date: 10/08/2005 Quit date: 10/08/2022 Years since quittin.5 Smokeless tobacco: Never Tobacco comments: 06/27/2022 5 cigs/day Vaping Use Vaping status: Never Used Substance Use Topics Alcohol use: Yes Comment: occasionally (once every 2-3) Drug use: No ALLERGIES No Known Allergies MEDICATIONS: diclofenac (VOLTAREN ARTHRITIS PAIN) 1 % topical gel Apply 2 g to affected area four times daily. iron fum,ps/folic acid/vitC/B3 (IRON FOLATE-F ORAL) Take by mouth. folic acid 1 mg tablet Take 1 tablet by mouth once daily. metFORMIN ER (GLUCOPHAGE XR) 500 mg 24 hr tablet Take 2 tablets by mouth two times a day. atorvastatin (LIPITOR) 40 mg tablet Take 1 tablet by mouth daily at bedtime. For cholesterol. metoprolol succinate ER (TOPROL XL) 50 mg 24 hr tablet Take 1 tablet by mouth once daily. PARoxetine (PAXIL) 40 mg tablet Take 1 tablet by mouth once daily. isosorbide dinitrate (ISORDIL) 5 mg tablet Take 1 tablet by mouth two times a day. glimepiride (AMARYL) 2 mg tablet Take 1 tablet by mouth daily with breakfast. amLODIPine (NORVASC) 10 mg tablet Take 1 tablet by mouth once daily. levothyroxine (SYNTHROID) 125 mcg tablet Take 1 tablet by mouth once daily. clopidogrel (PLAVIX) 75 mg tablet Take 75 mg by mouth once daily. aspirin, enteric coated (ASPIRIN, ENTERIC COATED) 81 mg EC tablet Take 81 mg by mouth once daily. nystatin-triamcinolone (MYCOLOG) ointment Apply sparingly to groin and penile rash twice daily for irritation/infection up to 2 weeks and then take 1 week off. blood sugar diagnostic (BLOOD GLUCOSE TEST) test strip Test blood sugar(s) 1 times daily. Dx: Type 2 DM - Uncontrolled E11.65 Insulin: No Lancets Test blood sugar(s) 1 times daily. Dx: Type 2 DM - Uncontrolled E11.65 Insulin: No Lancets lancets Test blood sugar(s) 1 times daily. Dx: Type 2 DM - Controlled E11.9 Insulin: No blood sugar diagnostic (BLOOD GLUCOSE TEST) test strip Test blood sugar(s) 1 times daily. Dx: Type 2 DM - Controlled E11.9 Insulin: No nitroglycerin sublingual (NITROQUICK) 0.4 mg SL tablet Nitroglycerin Active 0.4 MG SL Q5M October 24, 2022 12:00am COMPOUNDED PRESCRIPTION Initiate BiPAP @ 22/16 cm of water with humidification mask (per patient preference) optional chin strap (if indicated) and lifetime supplies DX: JOSIAH 327.23 Allergies, medications, past surgical history, family history and past medical history were reviewed per this encounter. Objective Ortho Exam 53-year-old male in no acute distress nontoxic appearance. Left knee shows mild effusion. Tenderness with palpation of the medial joint line and medial femoral condyle. Pain with valgus stress to the knee. Patient walks with a limp favoring the left knee. Assessment/Plan ASSESSMENT Diagnosis (M25.561) Medial knee pain, right (primary encounter diagnosis) No orders found for this visit on 05/06/24. PLAN We discussed limitations to treatment as well as options for treatment. Recommend rest ice and elevate the knee keep [place] wrap on for the next 48 hours-remove at bedtime and rewrap the following day Large Joint Arthro/Inj: R anserine bursa 05/06/2024 2:37 PM Site: R anserine bursa Medications: 6 mg betamethasone acetate-betamethasone sodium phosphate 6 mg/mL Anesthetics: 4 mL lidocaine (PF) 10 mg/mL (1 %); 4 mL BUPivacaine (PF) 0.5 % (5 mg/mL) FOLLOW-UP: No follow-ups on file. SIGNATURE: Torsten Aviles DO PATIENT NAME: Nick Lopes DATE: May 06, 2024 TIME: 2:34 PM AMB ROOMING INTAKE FLOWSHEET DATA Pain Pain Level: 8 Pain Location: Knee-Left Description: Sore, Aching Duration Amount of Time: (ongoing) Frequency: Continuous Intervention/Comfort measure: Medication, Cold documented in this encounter [facility] 05-04-2024 Telephone encounter Note I called and spoke with the patient. Message from Dr. Aviles given. Appointment has been moved up to 05/06/2024. [facility] 05-04-2024 Miscellaneous Notes I called and spoke with the patient. Message from Dr. Aviles given. Appointment has been moved up to 05/06/2024. Patient called, verified name and date of . He advised that his knee pain is so bad that he is having trouble walking and this is interfering with his work. He saw his PCP today, who deferred his care to Dr. Aviles, but the patient states that he needs to be seen or needs something for pain. He can be reached at [phone]. Jacqueline Griffin RN May 04, 2024 3:00 PM documented in this encounter [facility] 05-04-2024 Telephone encounter Note Patient called, verified name and date of . He advised that his knee pain is so bad that he is having trouble walking and this is interfering with his work. He saw his PCP today, who deferred his care to Dr. Aviles, but the patient states that he needs to be seen or needs something for pain. He can be reached at [phone]. Jacqueline Griffin RN May 04, 2024 3:00 PM [facility] 05-04-2024 History of Present illness Narrative Has already seen Dr Aviles. He already has a message out to him and he states he is going to send in a medicine for him and is seeing him again on the . I will defer to him. No charge for today and no exam done. documented in this encounter [facility] 04-14-2024 History of Present illness Narrative FOLLOW UP PODIATRIC OFFICE VISIT Chief Complaint: This 53 year old who presents for follow up:right hallux total nail avulsion. Patient presents to clinic for follow-up evaluation of right great toenail avulsion. Patient is doing very well. Has been wearing surgical shoe. Has new xray to review. PAIN EVALUATION 04/14/2024 1125 Pain Level: 3 Pain Location: Toe Description: Sore Duration Units: Weeks Frequency: Intermittent Intervention/Comfort measure: Relaxation;Reposition Hemoglobin A1C Date Value Ref Range Status 04/01/2024 6.5 (H) 4.3 - 5.6 % Final Comment: [place] [employer] guidelines indicate that patients with HgbA1c in the range 5.7-6.4% are at increased risk for development of diabetes, and intervention by lifestyle modification may be beneficial. HgbA1c greater or equal to 6.5% is considered diagnostic of diabetes. PCP: Ginger Lugo MD PAST MEDICAL HISTORY No date: Elevated white blood cell count Comment: has been reviewed by hematology. will follow periodically n/a: Fam hx-cardiovas dis NEC Comment: father, of AL at 45 No date: Hypothyroid Sep 14: Other and unspecified hyperlipidemia Comment: (dx'd in hospital for atypical CP) No date: Overweight(278.02) No date: Sleep apnea 1989: Tobacco use disorder complicating , childbirth, or the puerperium, unspecified as to episode of care or not applicable No date: Unspecified essential hypertension Current Outpatient Medications Medication Sig iron fum,ps/folic acid/vitC/B3 (IRON FOLATE-F ORAL) Take by mouth. folic acid 1 mg tablet Take 1 tablet by mouth once daily. blood sugar diagnostic (BLOOD GLUCOSE TEST) test strip Test blood sugar(s) 1 times daily. Dx: Type 2 DM - Uncontrolled E11.65 Insulin: No Lancets Test blood sugar(s) 1 times daily. Dx: Type 2 DM - Uncontrolled E11.65 Insulin: No metFORMIN ER (GLUCOPHAGE XR) 500 mg 24 hr tablet Take 2 tablets by mouth two times a day. atorvastatin (LIPITOR) 40 mg tablet Take 1 tablet by mouth daily at bedtime. For cholesterol. metoprolol succinate ER (TOPROL XL) 50 mg 24 hr tablet Take 1 tablet by mouth once daily. PARoxetine (PAXIL) 40 mg tablet Take 1 tablet by mouth once daily. isosorbide dinitrate (ISORDIL) 5 mg tablet Take 1 tablet by mouth two times a day. Lancets lancets Test blood sugar(s) 1 times daily. Dx: Type 2 DM - Controlled E11.9 Insulin: No glimepiride (AMARYL) 2 mg tablet Take 1 tablet by mouth daily with breakfast. amLODIPine (NORVASC) 10 mg tablet Take 1 tablet by mouth once daily. levothyroxine (SYNTHROID) 125 mcg tablet Take 1 tablet by mouth once daily. blood sugar diagnostic (BLOOD GLUCOSE TEST) test [...] MG SL Q5M October 24, 2022 12:00am nystatin-triamcinolone (MYCOLOG) ointment Apply sparingly to groin and penile rash twice daily for irritation/infection up to 2 weeks and then take 1 week off. COMPOUNDED PRESCRIPTION Initiate BiPAP @ 22/16 cm of water with humidification mask (per patient preference) optional chin strap (if indicated) and lifetime supplies DX: JOSIAH 327.23 No current facility-administered medications for this visit. ALLERGIES No Known Allergies PAST SURGICAL HISTORY 2004: EXCISION OF BENIGN LESION, COMPLICATED Comment: Lipoma, abdominal wall, [facility] age 4+/-: TONSILLECTOMY PRIMARY/SECONDARY <AGE 12 Comment: Tonsillectomy Physical Exam: OBJECTIVE: Constitutional: Pt is a well developed 53 year old male who is alert, oriented, cooperative and in no apparent distress. Eyes: Following during examination. No redness or drainage. Respiratory: RR normal and nonlabored. Even breathing. No evidence of distress. Psychology: Patient is engaged during conversation. Normal affect and mood. Does not appear depressed or anxious. NVSI unchanged from previous visit. Dermatological: Right hallux nail bed is now healed. No signs of infection. Musculoskeletal/Orthopaedic: Patient has no pain to palpation of right hallux Past xrays reviewed. Hard to fully evaluate for fracture due to silver nitrate ASSESSMENT: Closed non-physeal fracture of phalanx of right great toe, unspecified phalanx, initial encounter (primary encounter diagnosis) Open wound of toe PLAN: Patient is s/p total nail avulsion. The wound is now healed. No signs of infection. No need for subsequent antibiotic. If ingrown returns in future, consider nail matrixectomy Reviewed past xrays and compared to xrays today. No artifact from silver nitrate. No evidence of fracture. Suspect past xray was from artifact Confirmed with radiology today that no fracture exists Can return to work without restrictions Sam Beasley DPM AMB ROOMING INTAKE FLOWSHEET DATA Pain Pain Level: 3 Pain Location: Toe Description: Sore Duration Units: Weeks Frequency: Intermittent Intervention/Comfort measure: Relaxation, Reposition Patient presents with: Right Foot - Established Patient, Fracture, Follow Up, Ingrown Toenail, Pain Sienna Pina LPN documented in this encounter [facility] 04-14-2024 History of Present illness Narrative Radiology Service Progress Note PATIENT NAME: Nick Lopes DATE OF SERVICE: April 14, 2024 TIME: 11:10 AM PATIENT IDENTITY VERIFICATION COMPLETED USING TWO (2) IDENTIFIERS: Name and Date of confirmed by patient verbally. FALL SCREENING: Has the patient had 2 falls in the last year or 1 fall with injury or currently using an Ambulatory Assistive Device (Walker, Cane, Wheelchair, Crutches, etc.)? No PATIENT GENDER DATA: Male PATIENT RELEVANT IMPLANT DATA REVIEWED: Yes PATIENT PRESENTS WITH AN IMPLANTABLE OR ATTACHED DIE MAKER BENCH STAMPING: No RADIOLOGY DEPARTMENT: General X-ray: Exam(s) Completed: Lower Extremity X-Ray(s): Toes, Right PERIPHERAL IV DATA: Not applicable SIGNED BY: RT Vargas(R) April 14, 2024 11:10 AM documented in this encounter [facility] 04-07-2024 Telephone encounter Note View External Cardiology - Echo [ID [id number]] View External Cardiology - Cardiac Cath [ID [id number]] Scan on 10/20/2023 11:35 AM by ProviderVeronica PA-C: Consultation - Cardiology Scan on 10/20/2023 11:35 AM by ProviderVeronica PA-C: Discharge Summary I did not find anything from [facility], other than the information from his inpatient stay. Jacqueline Griffin RN [facility] 04-07-2024 Miscellaneous Notes View External Cardiology - Echo [ID [id number]] View External Cardiology - Cardiac Cath [ID [id number]] Scan on 10/20/2023 11:35 AM by ProviderVeronica PA-C: Consultation - Cardiology Scan on 10/20/2023 11:35 AM by Provider, SYLVIA Martin: Discharge Summary I did not find anything from [facility], other than the information from his inpatient stay. Jacqueline Griffin RN Can we pull nick last cardiology visit and most recent echo/stress test/cath? He follows with [facility] ( I think) Thanks! Erin Frankel APRN.[employer] documented in this encounter [facility] 04-06-2024 Telephone encounter Note Faxed as requested. [facility] 04-06-2024 Miscellaneous Notes Faxed as requested. Type of form: Long-term Disability Form received via fax When form is completed, Fax form to [phone] Form has been forwarded to Physician Desk: Dr. Pema Tran MA documented in this encounter [facility] 04-06-2024 History of Present illness Narrative Associated Order(s): Large Joint Arthro/Inj: L knee joint Post-Procedure Diagnose(s): Pain of left lower extremity SERVICE DATE: April 06, 2024 PCP: Ginger Lugo MD Subjective Patient ID: Nick is a 53 year old male. Chief Complaint: Patient presents with: Left knee pain - Referred by Dr Lugo PAIN EVALUATION 04/06/2024 1352 Pain Level: 5 Pain Location: Knee-Left Description: Sharp;Aching Duration Amount of Time: 2 Duration Units: Weeks Frequency: Continuous Intervention/Comfort measure: Medication HPI Patient presents today with acute pain of the left knee. He states he fell 2 weeks ago, landing on the left knee. He has soft tissue swelling and pain of the knee. He saw Dr. Lugo who ordered x-rays and an ultrasound both of which showed no acute abnormalities. He states the swelling is improving but he continues to have pain along the lateral aspect of the knee, stiffness when he tries to stand and walk. 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 Urinary Incontinence Central Sleep Apnea Diabetes Mellitus Type 2, Controlled, Without Complications (Formerly [facility]) Obesity, Class Iii, Bmi 40-49.9 (Morbid Obesity) (Formerly [facility]) Situational Stress Theo (Generalized Anxiety Disorder) Josiah (Obstructive Sleep Apnea) Ddd (Degenerative Disc Disease), Lumbar Spinal Stenosis of Lumbar Region Without Neurogenic Claudication Cervical Stenosis of Spine Coronary Artery Disease Involving [place] Coronary Artery of [place] Heart Without Angina Pectoris S/P Ptca (Percutaneous Transluminal Coronary Angioplasty) Status Post Insertion of Drug-Eluting Stent into Left Anterior Descending (Lad) Artery Benign Prostatic Hyperplasia With Urinary Obstruction Calculus of Ureter Depressive Disorder Elevated Liver Enzymes Erectile Dysfunction Obstructive Hydronephrosis Tobacco Dependence Syndrome Folate Deficiency PAST MEDICAL HISTORY No date: Elevated white blood cell count Comment: has been reviewed by hematology. will follow periodically n/a: Fam hx-cardiovas dis NEC Comment: father, of AL at 45 No date: Hypothyroid Sep 14: Other and unspecified hyperlipidemia Comment: (dx'd in hospital for atypical CP) No date: Overweight(278.02) No date: Sleep apnea 1989: Tobacco use disorder complicating , childbirth, or the puerperium, unspecified as to episode of care or not applicable No date: Unspecified essential hypertension PAST SURGICAL HISTORY 2004: EXCISION OF BENIGN LESION, COMPLICATED Comment: Lipoma, abdominal wall, [facility] age 4+/-: TONSILLECTOMY PRIMARY/SECONDARY <AGE 12 Comment: Tonsillectomy FAMILY HISTORY Problem Relation Age of Onset Heart Father of HEART ATTACK AT AGE 45 Heart Mother no blockages, hyperlipidemia Breast Cancer Mother Diabetes Maternal Grandmother [...] occasionally (once every 2-3) Drug use: No ALLERGIES No Known Allergies MEDICATIONS: folic acid 1 mg tablet Take 1 tablet by mouth once daily. blood sugar diagnostic (BLOOD GLUCOSE TEST) test strip Test blood sugar(s) 1 times daily. Dx: Type 2 DM - Uncontrolled E11.65 Insulin: No Lancets Test blood sugar(s) 1 times daily. Dx: Type 2 DM - Uncontrolled E11.65 Insulin: No vancomycin (VANCOCIN HCL) 250 mg capsule Take 1 capsule by mouth once daily for 14 days. metFORMIN ER (GLUCOPHAGE XR) 500 mg 24 hr tablet Take 2 tablets by mouth two times a day. atorvastatin (LIPITOR) 40 mg tablet Take 1 tablet by mouth daily at bedtime. For cholesterol. metoprolol succinate ER (TOPROL XL) 50 mg 24 hr tablet Take 1 tablet by mouth once daily. PARoxetine (PAXIL) 40 mg tablet Take 1 tablet by mouth once daily. isosorbide dinitrate (ISORDIL) 5 mg tablet Take 1 tablet by mouth two times a day. Lancets lancets Test blood sugar(s) 1 times daily. Dx: Type 2 DM - Controlled E11.9 Insulin: No glimepiride (AMARYL) 2 mg tablet Take 1 tablet by mouth daily with breakfast. amLODIPine (NORVASC) 10 mg tablet Take 1 tablet by mouth once daily. levothyroxine (SYNTHROID) 125 mcg tablet Take 1 tablet by mouth once daily. blood sugar diagnostic (BLOOD GLUCOSE TEST) test [...] MG SL Q5M October 24, 2022 12:00am COMPOUNDED PRESCRIPTION Initiate BiPAP @ 22/16 cm of water with humidification mask (per patient preference) optional chin strap (if indicated) and lifetime supplies DX: JOSIAH 327.23 ciprofloxacin HCl (CIPRO) 500 mg tablet Take 1 tablet by mouth two times a day for 7 days. (Patient not taking: Reported on 04/06/2024) nystatin-triamcinolone (MYCOLOG) ointment Apply sparingly to groin and penile rash twice daily for irritation/infection up to 2 weeks and then take 1 week off. (Patient not taking: Reported on 03/28/2024) Allergies, medications, past surgical history, family history and past medical history were reviewed per this encounter. Objective Ortho Exam 53-year-old male no acute distress, pleasant and cooperative with exam. Dilation of the left knee shows soft tissue swelling around the knee and lower leg. Tenderness with palpation over the lateral joint line and over the lateral condyle. No significant crepitus with range of motion testing. No significant instability with ligamentous testing. Radiographs of the left knee shows mild degenerative changes but no acute abnormality Ultrasound of the lower extremity was negative for abnormality. Assessment/Plan ASSESSMENT Diagnosis (M25.562) Acute pain of left knee Plan: CONSULT TO ORTHOPAEDICS (M79.605) Pain of left lower extremity Plan: CONSULT TO ORTHOPAEDICS Office Visit on 04/06/24 CONSULT TO ORTHOPAEDICS PLAN Rest, ice, elevate, compression wrap to the left knee and leg. Large Joint Arthro/Inj: L knee joint Informed Consent Consent Obtained: Verbal [place] Protocol SIGN IN TIME OUT 04/06/2024 2:17 PM The procedure site was prepped in the usual sterile fashion. Site: L knee joint Medications: 40 mg methylPREDNISolone acetate 40 mg/mL Anesthetics: 2 mL lidocaine (PF) 10 mg/mL (1 %); 2 mL BUPivacaine (PF) 0.5 % (5 mg/mL) Outcome: Tolerated well, no immediate complications Post-injection instructions were reviewed with the patient and the patient voiced understanding of these instructions. FOLLOW-UP: No follow-ups on file. SIGNATURE: Torsten Aviles DO PATIENT NAME: Nick Lopes DATE: April 06, 2024 TIME: 2:15 PM Patient presents with: Left knee pain - [facility] Pain Pain Level: 5 Pain Location: Knee-Left Description: Sharp, Aching Duration Amount of Time: 2 Duration Units: Weeks Frequency: Continuous Intervention/Comfort measure: Medication Patient states about 2 he fell and landed on his left knee. Seen by Dr Selby and given Tramadol for the pain and taking as needed with Tylenol. X-rays done 03/28/24. documented in this encounter [facility] 04-06-2024 Telephone encounter Note Type of form: Long-term Disability Form received via fax When form is completed, Fax form to [phone] Form has been forwarded to Physician Desk: Dr. Pema Tran MA [facility] 04-04-2024 Telephone encounter Note Patient's spouse Liliana returned call and given provider's message regarding patient. Tracie Cardenas RN [facility] 04-04-2024 Miscellaneous Notes Patient's spouse Liliana returned call and given provider's message regarding patient. Tracie Cardenas RN Left message to call and speak with nurse. Sugars are much better. Borderline anemia Is stable. Folate, a vitamin is low, which can cause anemia. Add folate. Rx sent. Recheck labs in one month documented in this encounter [facility] 04-04-2024 Telephone encounter Note Left message to call and speak with nurse. [facility] 04-04-2024 Telephone encounter Note Sugars are much better. Borderline anemia Is stable. Folate, a vitamin is low, which can cause anemia. Add folate. Rx sent. Recheck labs in one month [facility] 04-01-2024 History of Present illness Narrative Per Dr. Beasley, Nick was provided with Post Op shoe, size large, and instructed/educated in its application, wear, and care. All questions were answered, and patient was able to demonstrate competence with the necessary skills to utilize the above equipment. Juliana Orona, RN documented in this encounter [facility] 04-01-2024 Telephone encounter Note Received phone call from patient We discussed his xrays. Xrays show fracture. This may be viewed as artifact from silver nitrate vs remote fracture. Would repeat xrays in 2 weeks to see what the toe looks like following healing of removal toenail. If fracture is present, may be pathologic in nature. Will continue with antibiotic. Will have him come in for post-opshoe. Will see patient at follow-up Sam Beasley DPM [facility] 04-01-2024 Miscellaneous Notes Received phone call from patient We discussed his xrays. Xrays show fracture. This may be viewed as artifact from silver nitrate vs remote fracture. Would repeat xrays in 2 weeks to see what the toe looks like following healing of removal toenail. If fracture is present, may be pathologic in nature. Will continue with antibiotic. Will have him come in for post-opshoe. Will see patient at follow-up Sam Beasley DPM documented in this encounter [facility] 04-01-2024 Telephone encounter Note Can we pull nick last cardiology visit and most recent echo/stress test/cath? He follows with [facility] ( I think) Thanks! Erin Frankel APRN.[employer] [facility] Work Phone: 03-30-2024 Telephone encounter Note Called patient to inform him of wound culture. Staph and pseudomonas growing. Is on augmentin. Will continue. Will call in cipro. Discussed risk of tendon rupture. Avoid strenous exercis. All questions answer. Patient satisifed with care Sam Beasley DPM [facility] 03-30-2024 Miscellaneous Notes Called patient to inform him of wound culture. Staph and pseudomonas growing. Is on augmentin. Will continue. Will call in cipro. Discussed risk of tendon rupture. Avoid strenous exercis. All questions answer. Patient satisifed with care Sam Beasley DPM documented in this encounter [facility] 03-29-2024 History of Present illness Narrative Radiology Service Progress Note PATIENT NAME: Nick Lopes DATE OF SERVICE: March 29, 2024 TIME: 4:13 PM PATIENT IDENTITY VERIFICATION COMPLETED USING TWO (2) IDENTIFIERS: Name and Date of confirmed by patient verbally. FALL SCREENING: Has the patient had 2 falls in the last year or 1 fall with injury or currently using an Ambulatory Assistive Device (Walker, Cane, Wheelchair, Crutches, etc.)? No PATIENT GENDER DATA: Male PATIENT RELEVANT IMPLANT DATA REVIEWED: Yes PATIENT PRESENTS WITH AN IMPLANTABLE OR ATTACHED DIE MAKER BENCH STAMPING: No RADIOLOGY DEPARTMENT: Ultrasound PERIPHERAL IV DATA: Not applicable SIGNED BY: Araseli Linda RDMS, RVT March 29, 2024 4:13 PM documented in this encounter [facility] 03-29-2024 Note HNO ID: [id number] Author: ARASELI LINDA RT(R) Service: ? Author Type: Technologist Type: Progress Notes Filed: 03/29/2024 16:14 Note Text: Radiology Service Progress Note PATIENT NAME: Nick Lopes DATE OF SERVICE: March 29, 2024 TIME: 4:13 PM PATIENT IDENTITY VERIFICATION COMPLETED USING TWO (2) IDENTIFIERS: Name and Date of confirmed by patient verbally. FALL SCREENING: Has the patient had 2 falls in the last year or 1 fall with injury or currently using an Ambulatory Assistive Device (Walker, Cane, Wheelchair, Crutches, etc.)? No PATIENT GENDER DATA: Male PATIENT RELEVANT IMPLANT DATA REVIEWED: Yes PATIENT PRESENTS WITH AN IMPLANTABLE OR ATTACHED DIE MAKER BENCH STAMPING: No RADIOLOGY DEPARTMENT: Ultrasound PERIPHERAL IV DATA: Not applicable SIGNED BY: Araseli Linda RDMS, RVT March 29, 2024 4:13 PM [facility] 03-28-2024 History of Present illness Narrative Radiology Service Progress Note PATIENT NAME: Nick Lopes DATE OF SERVICE: March 28, 2024 TIME: 7:10 PM PATIENT IDENTITY VERIFICATION COMPLETED USING TWO (2) IDENTIFIERS: Name and Date of confirmed by patient verbally. FALL SCREENING: Has the patient had 2 falls in the last year or 1 fall with injury or currently using an Ambulatory Assistive Device (Walker, Cane, Wheelchair, Crutches, etc.)? No PATIENT GENDER DATA: Male PATIENT RELEVANT IMPLANT DATA REVIEWED: Not Applicable PATIENT PRESENTS WITH AN IMPLANTABLE OR ATTACHED DIE MAKER BENCH STAMPING: No RADIOLOGY DEPARTMENT: General X-ray: Exam(s) Completed: Lower Extremity X-Ray(s): Knee, AP / Lat / Tunne / Merchant Left and Wt. Bearing and Tibia Fibula, Left PERIPHERAL IV DATA: Not applicable SIGNED BY: RT Mayra(R) March 28, 2024 7:10 PM documented in this encounter [facility] 03-28-2024 History of Present illness Narrative Patient presents with: Knee Pain HPI: Patient presents today for office visit for acute visit. Is overdue for follow up on his chronic issues. Patient complains of: twisted knee stepping on curb and fell. Duration: 4 days Location:left knee Associated Symptoms: swelling Aggravating factors:being up on feet and touching area Things that improve symptoms :ice, compression, ibuprofen Pain is primarily over the tib fib. Did hear a pop when it had popped. Can bear weight on it. But having difficulty with swelling and mobility. For work has to wear steel toed shoes and just had his toenail removed. Also has to do things like climb ladders, etc. Diabetes: Not checking glucose. Doesn't have a glucometer lost my thing. Last A1c was high. Had to have ingrown toenail removed today. Afraid to take the ATB he was given because of possible Cdiff. Discussed using vanco as a preventative for a week while on the antibiotic and for another week after. No fever or chills. Dr Beasley felt he definitely needs the augmentin. Stomach has been good. No chest pain or shortness of breath. Still using paxil. No chest pain or shortness of breath. Still seeing cardiology. Using his cpap. Benefiting from its use. Still on thyroid meds. Due for labs. No weight changes. MEDICATIONS: Current Outpatient Medications Medication Sig amoxicillin-clavulanate potassium (AUGMENTIN) 875-125 mg per tablet Take 1 tablet by mouth two times a day for 7 days. FOR 7 DAYS. metFORMIN ER (GLUCOPHAGE XR) 500 mg 24 hr tablet Take 2 tablets by mouth two times a day. atorvastatin (LIPITOR) 40 mg tablet Take 1 tablet by mouth daily at bedtime. For cholesterol. metoprolol succinate ER (TOPROL XL) 50 mg 24 hr tablet Take 1 tablet by mouth once daily. PARoxetine (PAXIL) 40 mg tablet Take 1 tablet by mouth once daily. isosorbide dinitrate (ISORDIL) 5 mg tablet Take 1 tablet by mouth two times a day. Lancets lancets Test blood sugar(s) 1 times daily. Dx: Type 2 DM - Controlled E11.9 Insulin: No glimepiride (AMARYL) 2 mg tablet Take 1 tablet by mouth daily with breakfast. amLODIPine (NORVASC) 10 mg tablet Take 1 tablet by mouth once daily. levothyroxine (SYNTHROID) 125 mcg tablet Take 1 tablet by mouth once daily. blood sugar diagnostic (BLOOD GLUCOSE TEST) test [...] MG SL Q5M October 24, 2022 12:00am nystatin-triamcinolone (MYCOLOG) ointment Apply sparingly to groin and penile rash twice daily for irritation/infection up to 2 weeks and then take 1 week off. (Patient not taking: Reported on 03/28/2024) COMPOUNDED PRESCRIPTION Initiate BiPAP @ 22/16 cm of water with humidification mask (per patient preference) optional chin strap (if indicated) and lifetime supplies DX: JOSIAH 327.23 No current facility-administered medications for this visit. ALLERGIES: ALLERGIES No Known Allergies PAST MEDICAL HISTORY Diagnosis Date Elevated white blood cell count has been reviewed by hematology. will follow periodically Fam hx-cardiovas dis NEC n/a father, of AL at 45 Hypothyroid Other and unspecified hyperlipidemia [...] ATTACK AT AGE 45 Heart Mother no blockages, hyperlipidemia Breast Cancer Mother Diabetes Maternal Grandmother [...] other reviewed and negative other than HPI. HEALTH MAINTENANCE: Reviewed health maintenance issues today and recommended the following in detail. Dilated Retinal Exam -recently done in the last month or so. BP Controlled (<130/80) Never done Hepatitis B Vaccine(1 of 3 - 19+ 3-dose series) Never done Colorectal Cancer Screening Never done Shingrix Vaccine(2 of 2) due on 08/22/2022 Covid-19 Vaccine(2022- season) Never done Urine Albumin:Creatinine Ratio due on 06/27/2023 Diabetic Foot Exam - saw Dr Beasley. Pneumococcal Vaccine(2 of 2 - PCV) due on 06/27/2023 HbA1C due on 12/25/2023 LDL Cholesterol due on 01/23/2024 VITALS: BP 136/80 Pulse 69 Wt 132.5 kg (292 lb) SpO2 96% BMI 47.85 kg/m Last 4 Encounter Wt Readings: Date: Wt: 10/30/2023 133.7 kg (294 lb 12.8 oz) 10/24/2023 129.5 kg (285 lb 9.6 oz) 10/16/2023 132.5 kg (292 lb) 10/07/2023 133.4 kg (294 lb) PHYSICAL EXAMINATION: General [...] Bowel sounds normal. No masses, organomegaly Extremities: left leg shows no palpable cords. Has a large amount of bruising over the upper tib fib. No palpable cords. Tender over calf an popliteal fossa. No redness or warmth. Difficult to fully assess ligamental instability or his meniscus due to swelling and pain. Musculoskeletal: No joint swelling, deformity, or tenderness ASSESSMENT/PLAN: 1. Essential hypertension, benign - ICD9: 401.1, ICD10: I10 (primary diagnosis) - Controlled - Continue current medications 2. Hyperlipidemia, unspecified hyperlipidemia type - ICD9: 272.4, ICD10: E78.5 - Controlled - follow labs 3. Controlled type 2 diabetes mellitus without complication, without long-term current use of insulin (HCC) - ICD9: 250.00, ICD10: E11.9 - get labs. - COMPLETE BLOOD COUNT AND DIFFERENTIAL - COMPREHENSIVE METABOLIC PANEL - LIPID PANEL BASIC - HEMOGLOBIN A1C - ALBUMIN/CREATININE RATIO, URINE 4. Hypothyroidism, unspecified type - ICD9: 244.9, ICD10: E03.9 - continue meds. - THYROID STIMULATING HORMONE 5. S/P PTCA (percutaneous transluminal coronary angioplasty) - ICD9: V45.82, ICD10: Z98.61 - follow with cardiology 6. Elevated liver enzymes - ICD9: 790.5, ICD10: R74.8 -recheck labs. 7. Status post insertion of drug-eluting stent into left anterior descending (LAD) artery - ICD9: V45.82, ICD10: Z95.5 - per cardiology. 8. JOSIAH (obstructive sleep apnea) - ICD9: 327.23, ICD10: G47.33 Benefiting from treatment. 9. Screening for prostate cancer - ICD9: V76.44, ICD10: Z12.5 - PSA/PROSTATE SPECIFIC ANTIGEN SCREENING 10. Screening for colon cancer - ICD9: V76.51, ICD10: Z12.11 - CONSULT TO GASTROENTEROLOGY 11. Acute pain of left knee - ICD9: 719.46, ICD10: M25.562 - ice and elevate. Given his last A1c, hold on steroids. Given the pop and swelling and bruising, suggested he get an ortho appt on the books. Do xrays. Cannot do duplex tonight. Doubt clot etc. Can see if we can us the area in am. Oarrs done. Discussed risks and benefits of new medication with the patient. Advised them to call if any side effects or questions. . Avoid nsaids with his cardiac hx and plavix and asa. - Red flags for re-assessment reviewed with patient in detail. - Discussed risks and benefits of new medication with the patient. Advised them to call if any side effects or questions. - off work slip written. - US DVT LOWER LEFT - XR KNEE GENERAL 4V AP BOTH/PA BOTH/LAT/MERC LEFT - CONSULT TO ORTHOPAEDICS - TRAMADOL 50 MG TABLET 12. Edema of leg - ICD9: 782.3, ICD10: R60. - US DVT LOWER LEFT 13. Pain of left lower extremity - ICD9: 729.5, ICD10: M79.605 - US DVT LOWER LEFT - XR KNEE GENERAL 4V AP BOTH/PA BOTH/LAT/MERC LEFT - XR TIBIA FIBULA 2V AP/LAT LEFT - CONSULT TO ORTHOPAEDICS - TRAMADOL 50 MG TABLET 14. Ingrown toenail - ICD9: 703.0, ICD10: L60.0 - add vanco to his augmentin while on antibiotics and for one week after as c diff prophylaxis - VANCOMYCIN 250 MG CAPSULE 15. History of Clostridioides difficile colitis - ICD9: V12.79, ICD10: Z86.19 -as above. - VANCOMYCIN 250 MG CAPSULE Ginger Lugo MD documented in this encounter [facility] 03-28-2024 History of Present illness Narrative Radiology Service Progress Note PATIENT NAME: Nick Lopes DATE OF SERVICE: March 28, 2024 TIME: 11:03 AM PATIENT IDENTITY VERIFICATION COMPLETED USING TWO (2) IDENTIFIERS: Name and Date of confirmed by patient verbally. FALL SCREENING: Has the patient had 2 falls in the last year or 1 fall with injury or currently using an Ambulatory Assistive Device (Walker, Cane, Wheelchair, Crutches, etc.)? No PATIENT GENDER DATA: Male PATIENT RELEVANT IMPLANT DATA REVIEWED: Yes PATIENT PRESENTS WITH AN IMPLANTABLE OR ATTACHED DIE MAKER BENCH STAMPING: No RADIOLOGY DEPARTMENT: General X-ray: Exam(s) Completed: Lower Extremity X-Ray(s): Toes, Right PERIPHERAL IV DATA: Not applicable SIGNED BY: RT Vargas(R) March 28, 2024 11:03 AM documented in this encounter [facility] 03-28-2024 Instructions Sienna Pina LPN - 03/28/2024 10:39 AM EDT Post-Op Nail Instructions Minimize activity until the anesthesia wears off (about 2-8 hours). Increase activity to tolerance Remove bandage tomorrow Soak affected toe/foot in epsom salts for 15-20 minutes twice daily After soaking, apply antibiotic ointment (OTC Neosporin) to affected toe and re bandage OTC Ibuprofen if having pain, provided you have no allergies or intolerance to NSAIDS Mild drainage, redness, and blood is expected, but if you expeirence severe pain, increase in drainage, swelling, or red streaking please contact our office immediately Feel free to contact office as well if you have any questions/concerns [phone], ask for Podiatry Nurse documented in this encounter [facility] 03-28-2024 History of Present illness Narrative UNIVERSAL PROTOCOL / SAFETY CHECKLIST Procedure to be Performed: Total nail avulsion, right great toenail Sign In: A Moment of CARE was completed. Personnel directly involved with the procedure wore the appropriate PPE (Personal Protective Equipment). No special equipment needed. Patient/Surrogate Stated/Verified: PATIENT VERIFIED(optional for EMERGENT procedures): Patient name, Date of , Relevant allergies, and The intended procedure Time Out Communication: Intended patient and procedure match the source documents. Consent documented and matches the intended procedure. Relevant labs, photos, and/or imaging studies have been reviewed. Correct side/site marked and visible. Medications required for procedure verified. No fire risk assessment and interventions applicable. No implant(s) inserted. Sign Out: SIGN OUT (optional for EMERGENT procedures): All specimen containers correctly labeled. All instruments, equipment, possible retained foreign bodies accounted for. Post-procedure follow-up management communicated and Plan of Care Visit completed when applicable. Sienna Pina LPN Images from the original note were not included. Initial Office Visit Subjective: This 53 year old male presents to clinic for diabetic foot check. Patient has the following complaints: ingrowing toenail of right hallux Patient presents to clinic for evaluation of right great toe. Patient has infected ingrowing toenail that has bee present x 3 months. He tried to doctor this himself with epsom salts and topical antibiotic. Patient has history of c.dif in the past and he was informed it could have been due to past use of antibiotics so he did not present to urgent care because he wanted to make sure antibiotics was necessary. He currently has pain, redness, drainage and bleeding. Patient admits to being diabetic for 3 years now. Patient +B/T/N in feet at this time. Patient -pain in legs when walking. No other pedal complaints at this time. No change in medications or medical history since last visit. PAIN EVALUATION 03/27/2024 1359 Pain Level: 10 Pain Location: Toe Description: Pressure;Raw Duration Units: Months Frequency: Continuous Intervention/Comfort measure: Other: See comment Comments: Keeping clean , wrapped because ot hurts to wear a show Hemoglobin A1C (%) Date Value 09/25/2023 11.1 01/22/2023 6.5 10/08/2022 6.9 12/09/2021 8.9 03/22/2021 7.7 06/15/2019 6.5 PCP: Ginger Lugo MD PAST MEDICAL HISTORY Diagnosis Date Elevated white blood cell count has been reviewed by hematology. will follow periodically Fam hx-cardiovas dis NEC n/a father, of [place] at 45 Hypothyroid Other and unspecified hyperlipidemia Sep 14 (dx'd in hospital for atypical CP) Overweight(278.02) Sleep apnea Tobacco use disorder complicating , childbirth, or the puerperium, unspecified as to episode of care or not applicable 1989 Unspecified essential hypertension Current Outpatient Medications Medication Sig metFORMIN ER (GLUCOPHAGE XR) 500 mg 24 hr tablet Take 2 tablets by mouth two times a day. atorvastatin (LIPITOR) 40 mg tablet Take 1 tablet by mouth daily at bedtime. For cholesterol. metoprolol succinate ER (TOPROL XL) 50 mg 24 hr tablet Take 1 tablet by mouth once daily. PARoxetine (PAXIL) 40 mg tablet Take 1 tablet by mouth once daily. isosorbide dinitrate (ISORDIL) 5 mg tablet Take 1 tablet by mouth two times a day. Lancets lancets Test blood sugar(s) 1 times daily. Dx: Type 2 DM - Controlled E11.9 Insulin: No glimepiride (AMARYL) 2 mg tablet Take 1 tablet by mouth daily with breakfast. amLODIPine (NORVASC) 10 mg tablet Take 1 tablet by mouth once daily. levothyroxine (SYNTHROID) 125 mcg tablet Take 1 tablet by mouth once daily. blood sugar diagnostic (BLOOD GLUCOSE TEST) test [...] MG SL Q5M October 24, 2022 12:00am nystatin-triamcinolone (MYCOLOG) ointment Apply sparingly to groin and penile rash twice daily for irritation/infection up to 2 weeks and then take 1 week off. (Patient not taking: Reported on 03/28/2024) COMPOUNDED PRESCRIPTION Initiate BiPAP @ 22/16 cm of water with humidification mask (per patient preference) optional chin strap (if indicated) and lifetime supplies DX: JOSIAH 327.23 No current facility-administered medications for this visit. ALLERGIES No Known Allergies PAST SURGICAL HISTORY Procedure Laterality Date EXCISION OF BENIGN LESION, COMPLICATED 2004 Lipoma, abdominal wall, [facility] TONSILLECTOMY PRIMARY/SECONDARY <AGE 12 age 4+/- Tonsillectomy FAMILY HISTORY Problem Relation Age of Onset Heart Father of HEART ATTACK AT AGE 45 Heart Mother no blockages, hyperlipidemia Breast Cancer Mother Diabetes Maternal Grandmother [...] occasionally (once every 2-3) Drug use: No REVIEW OF SYSTEMS GENERAL: Negative for Malaise, significant weight loss, fever RESPIRATORY: Negative for cough, wheezing and shortness of breath CARDIOVASCULAR: Negative for chest pain, leg swelling and palpitations GI: Negative for abdominal discomfort, blood in stools or black stools and change in bowel habits : Negative for dysuria, frequency and incontinence MUSCULOSKELETAL: Negative for joint pain or swelling, back pain, and muscle pain. SKIN: Negative for lesions, rash, and itching. HEMATOLOGY/LYMPHOLOGY Negative for prolonged bleeding, bruising easily, and swollen nodes. ENDOCRINE: Negative for cold or heat intolerance, polyuria, polydipsia and goiter. NEURO: negative The remainder of the review of systems is noncontributory. Objective: Patient presents to clinic ambulating in [facility] Constitutional: Pt is a well developed 53 year old male who is alert, oriented, cooperative and in no apparent distress. Eyes: Following during examination. No redness or drainage. Respiratory: RR normal and nonlabored. Even breathing. No evidence of distress. Psychology: Patient is engaged during conversation. Normal affect and mood. Does not appear depressed or anxious. Vasc: DP and PT pulses are palpable and audible bilateral. CFT is less than 5 seconds bilateral. Skin temperature is warm to warm proximal to distal bilateral. There is moderate edema or varicosities noted. Hair growth present. Neuro: Protective sensation is intact to the foot and toes when tested with the 5.07 SWM bilateral. Vibratory sensation is decreased at the hallux bilateral. + Significant neurological defecits. Derm: Inspection and palpation performed. Nails 1 right is ingrowing with redness of the entire nail fold. There is drainage of the right hallux nail plate. There is pain. Skin is of normal turgor and texture. Hyperkeratosis noted to not present. NO ulcerations, scars, verruca or other lesions noted. Ortho: Ankle joint DF is full with the knee extended and full with knee flexed. No pain or crepitus noted. STJ, MTJ ROM are full and free of pain or crepitus. Muscle strength is 5/5 for dorsiflexors, plantarflexors, inverters, everters. Assessment: Diabetes Mellitus Type II (L60.0) Ingrowing toenail with infection (primary encounter diagnosis) Plan: 1. Patient was seen and evaluated. 2. Patient was instructed on the continued importance of diabetic foot care along with proper diet and keeping their blood sugar under control to prevent complications. Discussed the importance of daily foot inspection, avoiding barefoot walking and wearing good shoes Instructions given both oral and written. 3. Patient has infected ingrowing toenail of the right hallux. The entire medial and proximal nail fold is swollen and red and has drainage. I do feel placing patient on antibiotic is necessary to help treat the infection. Second, given the severe swelling with drainage, I do feel that performing an avulsion of the nail plate is necessary to treat infection. Given the severe swelling and redness of the entire nail fold, I do feel that a total nail avulsion is best option. I discussed risks of this procedure not limited to infection for which he already has. Other risks include recurrent ingrown, loss of toe, slow wound healing due to smoking and poor control of diabetes. I informed patient that he is at risk of slow healing because of his diabetes but if the infection is not eliminated, he is at risk of toe amptuation. He understands this. He consents to total nail avulsion, right hallux. Discussed risks of toenail procedure not limited to infection, pain, swelling, bleeding, painful scarring, recurrence, need for revised procedure. Patient consented to proceed. Patient was properly identified by name and procedure. The right hallux was then injected with 3 cc of 1% lidocaine plain. The toe was then prepped and draped in the usual aseptic technique. A digital tournicot was applied to the toe. The entire nail was then freed and removed. Careful inspection was performed to assure no remaining spicule present. Avulsion was performed. Wound culture was performed. All nonviable tissue was debrided and bleeding was controlled with pressure and silver nitrate. Sterile dressing was then applied consisting of amerigel, guaze, jabari and coban. Tournicot was removed and hyperemic response was noted. Patient tolerated well. Patient will f/u in 2 weeks. Sam Beasley DPM AMB ROOMING INTAKE FLOWSHEET DATA Pain Pain Level: 10 Pain Location: Toe Description: Pressure, Raw Duration Units: Months Frequency: Continuous Intervention/Comfort measure: Other: See comment Comments: Keeping clean , wrapped because ot hurts to wear a show Patient presents with: Right Great Toe - New, Swelling, Pain, Ingrown Toenail, Infection Sienna Pina LPN documented in this encounter [facility] 03-14-2024 Telephone encounter Note Needs seen by one of us or urgent care [facility] 03-14-2024 Miscellaneous Notes Needs seen by one of us or urgent care [place]: 10/30/23-CDIFF with PCP Yissel Correa MA documented in this encounter [facility] 03-14-2024 Telephone encounter Note [place]: 10/30/23-CDIFF with PCP Yissel Correa MA [facility] 02-11-2024 Telephone encounter Note Prescription Refill Information The patient has been identified by name and date of : Yes Caregiver verified no other encounters exist for this prescription request: Yes Caregiver confirmed with patient/requestor that no other refills are due, in the near future, with this provider at this time: Yes The last office visit in the department: 10/30/2023 Does the patient have a future office visit with this provider/department: No Requested Prescriptions Pending Prescriptions Disp Refills metFORMIN ER (GLUCOPHAGE XR) 500 mg 24 hr tablet 360 tablet 3 Sig: Take 2 tablets by mouth two times a day. Nuha Perez LPN February 11, 2024 9:17 AM [facility] 02-11-2024 Miscellaneous Notes Prescription Refill Information The patient has been identified by name and date of : Yes Caregiver verified no other encounters exist for this prescription request: Yes Caregiver confirmed with patient/requestor that no other refills are due, in the near future, with this provider at this time: Yes The last office visit in the department: 10/30/2023 Does the patient have a future office visit with this provider/department: No Requested Prescriptions Pending Prescriptions Disp Refills metFORMIN ER (GLUCOPHAGE XR) 500 mg 24 hr tablet 360 tablet 3 Sig: Take 2 tablets by mouth two times a day. Nuha Perez LPN February 11, 2024 9:17 AM documented in this encounter [facility] 01-29-2024 Telephone encounter Note Patient reports sore throat for 3 days. Tonsils are swollen and red. May have been exposed to strep. Left ear pain since yesterday. Protocol recommends see provider in 24 hours. Patient declined same day appt- unable to come during day. Patient agreeable to EC later today for evaluation. Reason for Disposition Earache also present Answer Assessment - Initial Assessment Questions 1. ONSET: Started Tu night - 3 days ago. 2. SEVERITY: Moderate. Able to swallow. Feels like it's swollen. Didn't see white patches. Tonsils are red. Can eat solid food but it hurts. 3. STREP EXPOSURE: Daughter had strep a week ago. 4. VIRAL SYMPTOMS: Left ear pain since yesterday. Runny nose. Eyes are red but not blood shot. Dry cough couple days now. 5. FEVER: No fever. 6. PUS ON THE TONSILS: No pus on tonsils but they are swollen and red. 7. OTHER SYMPTOMS: No SOB. No rash. Mild headaches. 8. : NA Protocols used: Sore [id number] [facility] 01-29-2024 Miscellaneous Notes Patient reports sore throat for 3 days. Tonsils are swollen and red. May have been exposed to strep. Left ear pain since yesterday. Protocol recommends see provider in 24 hours. Patient declined same day appt- unable to come during day. Patient agreeable to EC later today for evaluation. Reason for Disposition Earache also present Answer Assessment - Initial Assessment Questions 1. ONSET: Started Tues night - 3 days ago. 2. SEVERITY: Moderate. Able to swallow. Feels like it's swollen. Didn't see white patches. Tonsils are red. Can eat solid food but it hurts. 3. STREP EXPOSURE: Daughter had strep a week ago. 4. VIRAL SYMPTOMS: Left ear pain since yesterday. Runny nose. Eyes are red but not blood shot. Dry cough couple days now. 5. FEVER: No fever. 6. PUS ON THE TONSILS: No pus on tonsils but they are swollen and red. 7. OTHER SYMPTOMS: No SOB. No rash. Mild headaches. 8. : NA Protocols used: Sore [id number] Left vm for patient to return call to triage nurse, for questions about his symptoms: cough, vomiting, sore throat. Patient scheduled an appt with Rodrigo Retana for 01-29-24 and may need a sooner appt. documented in this encounter [facility] 01-29-2024 Telephone encounter Note Left vm for patient to return call to triage nurse, for questions about his symptoms: cough, vomiting, sore throat. Patient scheduled an appt with Rodrigo Retana for 01-29-24 and may need a sooner appt. [facility] 01-20-2024 Telephone encounter Note Prescription Refill Information The patient has been identified by name and date of : Yes Caregiver verified no other encounters exist for this prescription request: Yes Caregiver confirmed with patient/requestor that no other refills are due, in the near future, with this provider at this time: Yes The last office visit in the department: 10/30/23 Does the patient have a future office visit with this provider/department: No-MyChart message sent to patient to schedule an appointment. Requested Prescriptions Pending Prescriptions Disp Refills atorvastatin (LIPITOR) 40 mg tablet 90 tablet 1 Sig: Take 1 tablet by mouth daily at bedtime. For cholesterol. Pharmacy sent a request that patient needs to have a 90 day order sent. Previous 90 order was split into 30 day scripts? Asha Sy LPN January 20, 2024 9:08 AM [facility] 01-20-2024 Miscellaneous Notes Prescription Refill Information The patient has been identified by name and date of : Yes Caregiver verified no other encounters exist for this prescription request: Yes Caregiver confirmed with patient/requestor that no other refills are due, in the near future, with this provider at this time: Yes The last office visit in the department: 10/30/23 Does the patient have a future office visit with this provider/department: No-MyChart message sent to patient to schedule an appointment. Requested Prescriptions Pending Prescriptions Disp Refills atorvastatin (LIPITOR) 40 mg tablet 90 tablet 1 Sig: Take 1 tablet by mouth daily at bedtime. For cholesterol. Pharmacy sent a request that patient needs to have a 90 day order sent. Previous 90 order was split into 30 day scripts? Asha Sy LPN January 20, 2024 9:08 AM documented in this encounter [facility] 12-07-2023 Miscellaneous Notes Patient MyChart message requesting the following refill Refill(s) Requested: Requested Prescriptions Pending Prescriptions Disp Refills metoprolol succinate ER (TOPROL XL) 50 mg 24 hr tablet 90 tablet 3 Sig: Take 1 tablet by mouth once daily. ALLERGIES No Known Allergies (home) [phone] (work) [phone] (cell) Last Office Visit Date: 10/30/2023 Last [facility] Visit: Visit date not found Future Appointment: 01/15/2024 The patients preferred pharmacy has been captured for this encounter? yes Request is for script(s) to be escript to pharmacy. Linda Bullock LPN documented in this encounter [facility] 10-30-2023 History of Present illness Narrative Patient presents with: Hospital F/U HPI: Patient presents today for office visit for hospital follow up. Present to [facility] ER on 10/07/23 with chest pain. Admitted. Dx with C-diff while in hospital. Discharged on 10/09/23. Was on Vancomycin but C-diff did not clear. Continues on Dificid for 10 days. Saw gi recently. They are going to colonoscopy next month. Overall doing better. Denies chest pain and shortness of breath. Using Nitro prn. Sugars have been good. Bp is good. Sees cardiology at some point. MEDICATIONS: Current Outpatient Medications Medication Sig PARoxetine (PAXIL) 40 mg tablet Take 1 tablet by mouth once daily. isosorbide dinitrate (ISORDIL) 5 mg tablet Take 1 tablet by mouth two times a day. fidaxomicin (DIFICID) 200 mg tablet Take 1 tablet by mouth two times a day for 10 days. Lancets lancets Test blood sugar(s) 1 times daily. Dx: Type 2 DM - Controlled E11.9 Insulin: No glimepiride (AMARYL) 2 mg tablet Take 1 tablet by mouth daily with breakfast. metFORMIN ER (GLUCOPHAGE XR) 500 mg 24 hr tablet Take 2 tablets by mouth two times a day. metoprolol succinate ER (TOPROL XL) 50 mg 24 hr tablet Take 1 tablet by mouth once daily. atorvastatin (LIPITOR) 40 mg tablet Take 1 tablet by mouth daily at bedtime. For cholesterol. amLODIPine (NORVASC) 10 mg tablet Take 1 tablet by mouth once daily. levothyroxine (SYNTHROID) 125 mcg tablet Take 1 tablet by mouth once daily. blood sugar diagnostic (BLOOD GLUCOSE TEST) test [...] MG SL Q5M October 24, 2022 12:00am nystatin-triamcinolone (MYCOLOG) ointment Apply sparingly to groin [...] Fam hx-cardiovas dis NEC n/a father, of AL at 45 Hypothyroid Other and unspecified hyperlipidemia [...] ATTACK AT AGE 45 Heart Mother no blockages, hyperlipidemia Breast Cancer Mother Diabetes Maternal Grandmother Breast Cancer Paternal Grandfather Hypertension Mother around age 60 Social History Tobacco Use Smoking status: Former Packs/day: 1.00 Years: 17.00 Additional pack years: 0.00 Total pack years: 17.00 Types: Cigarettes Quit date: 10/08/2022 Years since quittin.0 Smokeless tobacco: Never Tobacco comments: 06/27/2022 5 cigs/day Vaping Use Vaping Use: Never used Substance Use Topics Alcohol use: Yes Comment: occasionally (once every 2-3) Drug use: No Reviewed current medications, allergies, past medical history, surgical history, family history and social history today. REVIEW OF SYSTEMS All other reviewed and negative other than HPI. VITALS: BP 128/84 Pulse 76 Ht 166.4 cm (5' 5.5) Wt 133.7 kg (294 lb 12.8 oz) SpO2 96% BMI 48.31 kg/m Last 4 Encounter Wt Readings: Date: Wt: 10/24/2023 129.5 kg (285 lb 9.6 oz) 10/16/2023 132.5 kg (292 lb) 10/07/2023 133.4 kg (294 lb) 09/25/2023 133.8 kg (295 lb) PHYSICAL EXAMINATION: General appearance: Well appearing, [...] non-tender. Bowel sounds normal. No masses, organomegaly ASSESSMENT/PLAN: 1. C. difficile colitis - ICD9: 008.45, ICD10: A04.72 - doing much better. Finish meds. Follow with cardiology and gi. Red flags for re-assessment reviewed with patient in detail. Return to work given on 11/08. Ginger Lugo MD documented in this encounter [facility] 10-29-2023 History of Present illness Narrative Nick Marianne 52 y.o. 1970 male Reason for Consult: hx. C. Difficile, diarrhea HPI: 52-year-old male with history of DM, HTN, hypothyroidism, CAD referred by PCP for recent history of C. difficile colitis and ongoing diarrhea. Reports acute onset abdominal pain numerous episodes of watery diarrhea and subsequently diagnosed with C. difficile on 10/06/2023 completed course of Vanco without any significant improvement of symptoms. Was recently followed up by PCP and started on Dificid. Has been taking since Thursday and reports his abdominal pain and diarrhea have slowly started to improve. Stools are becoming semiformed and abdominal cramping is less severe, no recent fever, no blood in the stool. He has never had colonoscopy. He denies any family history of colon cancer or IBD. Reviewed stool PCR labs. From 10/06/2023-positive, stool PCR from 10/20/2023 negative Past Medical History: Past Medical History: Diagnosis Date Clostridium difficile infection Diabetes mellitus (HCC) Hypertension Hypothyroid JOSIAH treated with BiPAP Surgical History & Procedures: Past Surgical History: Procedure Laterality Date CARDIAC CATHETERIZATION 10/08/2022 2 cardiac stents excision fatty tumor abdomen FOOT SURGERY Right 12/22/2017 plantar fascitiis TONSILLECTOMY AND ADENOIDECTOMY Social History: Social History Socioeconomic History Marital status: Tobacco Use Smoking status: Former Packs/day: 1.00 Years: 40.00 Additional pack years: 0.00 Total pack years: 40.00 Types: Cigarettes Passive exposure: Past Smokeless tobacco: Current Tobacco comments: snuff Vaping Use Vaping Use: Never used Substance and Sexual Activity Alcohol use: Never Drug use: Never Family History Problem Relation Age of Onset Breast cancer Mother Cancer Father Heart attack Father Colon cancer Neg Hx Rectal cancer Neg Hx Current Medications: Current Outpatient Medications Medication Sig Dispense Refill amLODIPine (NORVASC) 10 MG tablet Take 1 (one) tablet (10 mg total) by mouth daily . aspirin 81 MG EC tablet Take 1 (one) tablet (81 mg total) by mouth daily . atorvastatin (LIPITOR) 20 MG tablet Take 1 (one) tablet (20 mg total) by mouth every night at bedtime . clopidogreL (PLAVIX) 75 mg tablet Take 1 (one) tablet (75 mg total) by mouth daily . Dificid tablet Take 1 (one) tablet (200 mg total) by mouth 2 (two) times a day for 10 days . glimepiride (AMARYL) 1 MG tablet Take 1 (one) tablet (1 mg total) by mouth daily with breakfast . isosorbide dinitrate (ISORDIL) 5 MG tablet Take 1 (one) tablet (5 mg total) by mouth 2 (two) times a day . levothyroxine (SYNTHROID, LEVOTHROID) 125 MCG tablet Take 1 (one) tablet (125 mcg total) by mouth daily . metFORMIN (GLUCOPHAGE) 1000 MG tablet Take 1 (one) tablet (1,000 mg total) by mouth 2 (two) times a day with meals . metoprolol succinate (TOPROL-XL) 50 MG 24 hr tablet Take 1 (one) tablet (50 mg total) by mouth daily . PARoxetine (PAXIL) 40 MG tablet Take 1 (one) tablet (40 mg total) by mouth daily . sodium sulfate, magnesium sulfate, potassium sulfate (Suprep Bowel Prep Kit) solution Take 177 mL (1 each total) by mouth daily for 2 doses . 354 mL 0 No current facility-administered medications for this visit. Review of Systems Constitutional: Negative for appetite change, fatigue, fever and unexpected weight change. HENT: Negative for mouth sores, trouble swallowing and voice change. Eyes: Negative for redness. Respiratory: Negative for cough, choking and shortness of breath. Cardiovascular: Negative for chest pain and palpitations. Gastrointestinal: Positive for abdominal pain and diarrhea. Negative for blood in stool, constipation, nausea and vomiting. Endocrine: Negative. Genitourinary: Negative for difficulty urinating. Musculoskeletal: Negative for arthralgias and joint swelling. Skin: Negative for color change and pallor. Allergic/Immunologic: Negative. Neurological: Negative for dizziness, syncope and light-headedness. Hematological: Negative. Psychiatric/Behavioral: Negative. Physical Exam Constitutional: General: He is not in acute distress. Appearance: He is obese. HENT: Head: Normocephalic and atraumatic. Right Ear: External ear normal. Left Ear: External ear normal. Nose: Nose normal. Mouth/Throat: Mouth: Mucous membranes are moist. Pharynx: No posterior oropharyngeal erythema. Eyes: General: No scleral icterus. Pupils: Pupils are equal, round, and reactive to light. Cardiovascular: Rate and Rhythm: Normal rate and regular rhythm. Heart sounds: No murmur heard. No gallop. Pulmonary: Effort: Pulmonary effort is normal. No respiratory distress. Breath sounds: Normal breath sounds. No wheezing. Abdominal: General: Bowel sounds are normal. There is no distension. Palpations: Abdomen is soft. There is no mass. Tenderness: There is no abdominal tenderness. There is no guarding. Musculoskeletal: General: No deformity. Normal range of motion. Cervical back: Normal range of motion and neck supple. Skin: General: Skin is warm and dry. Coloration: Skin is not jaundiced or pale. Neurological: General: No focal deficit present. Mental Status: He is alert and oriented to person, place, and time. Psychiatric: Mood and Affect: Mood normal. Behavior: Behavior normal. No visits with results within 30 Day(s) from this visit. Latest known visit with results is: Admission on 09/23/2023, Discharged on 09/23/2023 Component Date Value Ref Range Status Strep A Screen 09/23/2023 Negative Negative Final POC Rapid Influenza A Ag 09/23/2023 Not Detected Not Detected Final POC Influenza B Ag 09/23/2023 Not Detected Not Detected Final Assessment & Plan: 52-year-old male with recent C. difficile infection at the end of September treated with Vanco initially without any improvement he continued of watery diarrhea with lower abdominal cramping and now completing course of Dificid with gradual symptomatic improvement. May have postinfectious IBS however will need colonoscopy to rule out any chronic colitis. Colonoscopy procedure explained including associated risks and he is agreeable to proceed. Colitis- Diarrhea- Colonoscopy scheduled with Dr. Navarro at [facility] on 11/30/2023 at 10 AM. Abilio Gong CNP documented in this encounter [facility] 10-27-2023 Miscellaneous Notes Patient has been identified by name and date of : Yes, Provider Ginger Lugo Date 10/27/2023 Time 12:50 pm Spouse phones for refill(s): Requested Prescriptions Pending Prescriptions Disp Refills PARoxetine (PAXIL) 40 mg tablet 90 tablet 3 Sig: Take 1 tablet by mouth once daily. isosorbide dinitrate (ISORDIL) 5 mg tablet 60 tablet 5 Sig: Take 1 tablet by mouth two times a day. Date of last office visit in primary care: 09/14/2023 Date of next office visit in primary care: 10/30/2023 Please advise. Thank you. [facility] [place] documented in this encounter [facility] 10-26-2023 Miscellaneous Notes Pt notified. He verbalized understanding. Ronnie Barrow LPN Let him know he has a slight anemia. May not be significant. Recheck labs in two weeks documented in this encounter [facility] 10-24-2023 History of Present illness Narrative Chief Complaint Patient presents with: Abdominal Pain Diarrhea HPI Nick Lopes is a 52 year old male who presents here today for abdominal pain and diarrhea. Pt was seen 10/16/23 by Hamilton Mosquera for hospital follow up from [facility] for chest pain and C-diff colitis. Heart cath was negative. Was treated for his positive c diff we had found when he was hospitalized at [facility]. They gave him vanco orally for it. Haleigh had repeated his c diff however, he had just finished his vanco the day before so it could be possible false negative. It never really improved after the vanco use. He complains of abdominal pain at is a 4/10 pain, achy, and stabbing pain on right side. Pain comes and goes. Currently not bad today. Has not been around anyone that he knows of that has c diff. His son was ill but his stools were negative. He has not on any oral antibiotics since last fall that he can recall although he is not sure. The diarrhea has never stopped since last visit. He is having 7 BM's a day, never stopped Started with a fever of 101.7 a few days ago. None yesterday. No vomiting. Eating and drinking well. No urinary issues. No bloody or black stools. Past medical history, appointments, medications, allergies reviewed. Previous Medical History PAST MEDICAL HISTORY Diagnosis Date Elevated white blood cell count has been reviewed by hematology. will follow periodically Fam hx-cardiovas dis NEC n/a father, of [place] at 45 Hypothyroid Other and unspecified hyperlipidemia [...] TONSILLECTOMY PRIMARY/SECONDARY <AGE 12 age 4+/- Tonsillectomy Family History FAMILY HISTORY Problem Relation Age of Onset Heart Father of HEART ATTACK AT AGE 45 Heart Mother no blockages, hyperlipidemia Breast Cancer Mother Diabetes Maternal Grandmother Breast Cancer Paternal Grandfather Hypertension Mother around age 60 Patient Allergies ALLERGIES No Known Allergies Current Medications Current Outpatient Medications on File Prior to Visit Medication Sig vancomycin (VANCOCIN) 125 mg capsule Take 125 mg by mouth four times daily. Lancets lancets Test blood sugar(s) 1 times daily. Dx: Type 2 DM - Controlled E11.9 Insulin: No glimepiride (AMARYL) 2 mg tablet Take 1 tablet by mouth daily with breakfast. metFORMIN ER (GLUCOPHAGE XR) 500 mg 24 hr tablet Take 2 tablets by mouth two times a day. metoprolol succinate ER (TOPROL XL) 50 mg 24 hr tablet Take 1 tablet by mouth once daily. atorvastatin (LIPITOR) 40 mg tablet Take 1 tablet by mouth daily at bedtime. For cholesterol. amLODIPine (NORVASC) 10 mg tablet Take 1 tablet by mouth once daily. levothyroxine (SYNTHROID) 125 mcg tablet Take 1 tablet by mouth once daily. blood sugar diagnostic (BLOOD GLUCOSE TEST) test [...] Types: Cigarettes Quit date: 10/08/2022 Years since quittin.0 Smokeless tobacco: Never Tobacco comments: 06/27/2022 5 cigs/day Vaping Use Vaping Use: Never used Substance Use Topics Alcohol use: Yes Comment: occasionally (once every 2-3) Drug use: No EXAM: BP 118/75 Pulse 79 Temp 36.6 C (97.9 F) (Right Tympanic) Resp 20 Wt 129.5 kg (285 lb 9.6 oz) SpO2 96% BMI 46.80 kg/m General Appearance: Well appearing, alert, in no acute distress, well-hydrated, well nourished.. Skin: Skin color, texture, turgor normal, no suspicious rashes or lesions. Lungs: Lungs clear to auscultation. No wheezing, rhonchi, rales.. Heart: RRR without murmur, gallop, or rubs. No ectopy. Abdomen: Normal abdominal exam, Abdomen soft, non-tender. Bowel sounds normal. No masses, organomegaly. Extremities: Edema: normal. Data reviewed Office Visit on 10/16/2023 Component Date Value C. difficile PCR 10/20/2023 Negative for C. difficile toxin by PCR Appointment on 09/25/2023 Component Date Value Hemoglobin A1C 09/25/2023 11.1 (H) Estimated Average Glucose 09/25/2023 272 WBC 09/25/2023 8.59 RBC 09/25/2023 5.15 Hemoglobin 09/25/2023 13.9 Hematocrit 09/25/2023 43.6 MCV 09/25/2023 84.7 MCH 09/25/2023 27.0 MCHC 09/25/2023 31.9 RDW-CV 09/25/2023 14.3 Platelet Count 09/25/2023 167 MPV 09/25/2023 10.8 Neutrophils % 09/25/2023 69.6 Abs Neut 09/25/2023 5.98 Lymphocytes % 09/25/2023 22.1 Abs Lymph 09/25/2023 1.90 Monocytes % 09/25/2023 4.8 Abs Towns 09/25/2023 0.41 Eosinophils % 09/25/2023 1.9 Abs Eosin 09/25/2023 0.16 Basophils % 09/25/2023 0.7 Abs Baso 09/25/2023 0.06 Immature Granulocytes % 09/25/2023 0.9 Abs Immature Gran 09/25/2023 0.08 NRBC 09/25/2023 0.0 Absolute nRBC 09/25/2023 <0.01 Diff Type 09/25/2023 Auto Glucose 09/25/2023 325 (H) BUN 09/25/2023 14 Creatinine 09/25/2023 0.87 Sodium 09/25/2023 134 (L) Potassium 09/25/2023 4.1 Chloride 09/25/2023 97 CO2 09/25/2023 25 Anion Gap 09/25/2023 12 Calcium, Total 09/25/2023 9.8 Estimated Glomerular Alberto* 09/25/2023 104 Office Visit on 09/25/2023 Component Date Value C. difficile PCR 10/06/2023 Positive for C. difficile toxin by PCR (A) Shigella spp./Enteroinva* 10/06/2023 Not detected Campylobacter jejuni/col* 10/06/2023 Not detected Shiga toxin-producing ge* 10/06/2023 Not detected Salmonella spp. DNA 10/06/2023 Not detected Cryptosporidium Antigen * 10/06/2023 Negative for Cryptosporidium by EIA. Giardia Antigen by EIA 10/06/2023 Negative for Giardia lamblia by EIA. Fecal Lactoferrin 10/06/2023 Positive for lactoferrin, which may indicate presence of fecal white blood cells (A) C. difficile Toxin EIA 10/06/2023 C. difficile toxin NOT DETECTED by EIA. ASSESSMENT/PLAN: 1. C. difficile colitis - ICD9: 008.45, ICD10: A04.72 - I suspect the vanco did not work. He is still symptomatic. Will change to fidaxomicin. Light diet. Can add probiotics. Push fluids. Red flags for re-assessment reviewed with patient in detail. Advised to er if worsening pain, fever, signs of gi bleeding etc. Discussed risks and benefits of new medication with the patient. Advised them to call if any side effects or questions. - keep appt with gi. - off work until I recheck him next week or prn. - FIDAXOMICIN 200 MG TABLET - CBC + DIFF - BASIC METABOLIC PNL Ginger Lugo MD documented in this encounter [facility] 10-21-2023 Miscellaneous Notes Pt's Alyson returned call. Pt has no transportation until this Thursday and unable to see Dr. Lugo's team before that. Requesting to be seen on Thursday if possible, if opening available. Appt made with Dr. Dee for this Thursday if provider agreeable.Will send this message to Dr. Dee for review/update. Please call patient if other recommendations are advised, otherwise no call back needed to pt. Tracie Cardenas RN Placed call to patient with no answer. Let message for return call. Kylie Tran He can see me in am if he wants to come to [place] in am Please see notes below. Pt has been seen for diarrhea but is not resolving and having upper abd pain. Pt has an appt with a GI doctor in [place]. Dr. Alexander Navarro next the . Pt and wanting to know what to do in the meantime. Protocol recommends see provider within 24 hours. Care plan reviewed with patient. Patient voices understanding. Advised patient that if symptoms get worse to go to ER. Checking with provider to see if he wants to see him within the next 24-48 hours. Reason for Disposition [1] SEVERE diarrhea (e.g., 7 or more times / day more than normal) AND [2] present > 24 hours (1 day) Answer Assessment - Initial Assessment Questions 1. DIARRHEA SEVERITY: Pt with continuing diarrhea and abd pain since september-did improve slightly but worsened about a wk or 2 ago. Moderate to Severe. Pt was dx with C-diff and treated with Vancomycin. Pt states diarrhea was some better but seemed to worsen while he was on the antibiotic. States having 6-7 pure liquid BM's daily. Denies any form to the stool at all. Light brown in color. Pt states is eating, drinking and urinating without any issues. - NO DIARRHEA (SCALE 0) - MILD (SCALE 1-3): Few loose or mushy BMs; increase of 1-3 stools over normal daily number of stools; mild increase in ostomy output. - MODERATE (SCALE 4-7): Increase of 4-6 stools daily over normal; moderate increase in ostomy output. - SEVERE (SCALE 8-10; OR WORST POSSIBLE): Increase of 7 or more stools daily over normal; moderate increase in ostomy output; incontinence. 2. ONSET: See above-mid September. 3. BM CONSISTENCY: see above 4. VOMITING:Denies. Had one episode of feeling dizzy and nauseous last evening. 5. ABDOMEN PAIN: Pt having constant dull pain about an inch or two above his belly button all the way across. Sometimes gets sharp and stabbing and is about a 9/10. Currently at about a 4-5 out of 10. 6. ABDOMEN PAIN SEVERITY: If present, ask: How bad is the pain? (e.g., Scale 1-10; mild, moderate, or severe) - MILD (1-3): doesn't interfere with normal activities, abdomen soft and not tender to touch - MODERATE (4-7): interferes with normal activities or awakens from sleep, abdomen tender to touch - SEVERE (8-10): excruciating pain, doubled over, unable to do any normal activities 7. ORAL INTAKE:Pt states he is drinking about 8-10 large glasses of water daily. Pt encouraged to drink 1/2 strength Gatorade or Powderade as well. 8. HYDRATION: Denies being dehydrated although he states his urine is getting a darker color. Pt instructed he needs to drink more as that is a sign he is not drinking enough. 9. EXPOSURE:Denies any travel to a foreign country,exposure to anyone with diarrhea or eating any food that was spoiled. 10. ANTIBIOTIC USE: See above 11. OTHER SYMPTOMS: Denies other than what is written above. 12. : n/a Protocols used: [id number] documented in this encounter [facility] 10-21-2023 Miscellaneous Notes See triage note 10/21/23 documented in this encounter [facility] 10-21-2023 Miscellaneous Notes Pt returned call and is aware. Called and left a voicemail for the patient to call back and ask for a nurse to receive the providers message. Sent navigayag as well. Images from the original note were not included. Nuha Mosquera APRN.CNS P Wstr Fp Suppan Pool Please let pt. Know that C Difficile has resolved. documented in this encounter [facility] 10-20-2023 Miscellaneous Notes C. difficile PCR was negative. Nursing pool to let patient know. documented in this encounter [facility] 10-16-2023 Instructions Nuha Mosquera APRN.CNS - 10/16/2023 1:31 PM EST 1) Continue vancomycin through Thursday. 2) Bring stool specimen in on Thursday 3) Get GI appointment next week- prefers [facility] 4) Off work through next Thursday and this may change 5) Follow up in 3 month documented in this encounter [facility] 10-16-2023 History of Present illness Narrative This is a 52 year old male who presents today with: Patient presents with: Hospital F/U Sent from our office for chest pain. Heart cath repeated. No occlusive disease. Had C-diff colitis. One result showed resolution. Diarrhea continues. Contagious BSS 165 today, starting to see improvement from 600's HISTORY OF PRESENT ILLNESS: Nick Lopes is a 52 year old male. Patient presents with: Hospital F/U PAST MEDICAL HISTORY: PAST MEDICAL HISTORY Diagnosis Date Elevated white blood cell count has been reviewed by hematology. will follow periodically Fam hx-cardiovas dis NEC n/a father, of AL at 45 Hypothyroid Other and unspecified hyperlipidemia [...] TONSILLECTOMY PRIMARY/SECONDARY <AGE 12 age 4+/- Tonsillectomy ALLERGIES Patient has no known allergies. MEDICATIONS Current Outpatient Medications Medication Sig vancomycin (VANCOCIN) 125 mg capsule Take 125 mg by mouth four times daily. glimepiride (AMARYL) 2 mg tablet Take 1 tablet by mouth daily with breakfast. metFORMIN ER (GLUCOPHAGE XR) 500 mg 24 hr tablet Take 2 tablets by mouth two times a day. metoprolol succinate ER (TOPROL XL) 50 mg 24 hr tablet Take 1 tablet by mouth once daily. atorvastatin (LIPITOR) 40 mg tablet Take 1 tablet by mouth daily at bedtime. For cholesterol. amLODIPine (NORVASC) 10 mg tablet Take 1 tablet by mouth once daily. levothyroxine (SYNTHROID) 125 mcg tablet Take 1 tablet by mouth once daily. clopidogrel (PLAVIX) 75 mg tablet Take 75 mg by mouth once daily. aspirin, enteric coated (ASPIRIN, ENTERIC COATED) 81 mg EC tablet Take 81 mg by mouth once daily. isosorbide dinitrate (ISORDIL) 5 mg tablet Take 5 mg by mouth twice daily. PARoxetine (PAXIL) 40 mg tablet Take 1 tablet by mouth once daily. Lancets lancets Test blood sugar(s) 1 times daily. Dx: Type 2 DM - Controlled E11.9 Insulin: No blood sugar diagnostic (BLOOD GLUCOSE TEST) test strip Test blood sugar(s) 1 times daily. Dx: Type 2 DM - Controlled E11.9 Insulin: No nitroglycerin sublingual (NITROQUICK) 0.4 mg SL tablet Nitroglycerin Active 0.4 MG SL Q5M October 24, 2022 12:00am nystatin-triamcinolone (MYCOLOG) ointment Apply sparingly to perineum twice daily for irritation/infection. nystatin-triamcinolone (MYCOLOG) ointment Apply sparingly to groin and penile rash twice daily for irritation/infection up to 2 weeks and then take 1 week off. COMPOUNDED PRESCRIPTION Initiate BiPAP @ 22/16 cm of water with humidification mask (per patient preference) optional chin strap (if indicated) and lifetime supplies DX: JOSIAH 327.23 No current facility-administered medications for this visit. FAMILY HISTORY Problem Relation Age of Onset Heart Father of HEART ATTACK AT AGE 45 Heart Mother no blockages, hyperlipidemia Breast Cancer Mother Diabetes Maternal Grandmother Breast Cancer Paternal Grandfather Hypertension Mother around age 60 Social History Tobacco Use Smoking status: Former Packs/day: 1.00 Years: 17.00 Additional pack years: 0.00 Total pack years: 17.00 Types: Cigarettes Quit date: 10/08/2022 Years since quittin.0 Smokeless tobacco: Never Tobacco comments: 06/27/2022 5 cigs/day Vaping Use Vaping Use: Never used Substance Use Topics Alcohol use: Yes Comment: occasionally (once every 2-3) Drug use: No REVIEW OF SYSTEMS GENERAL: + weight loss, + malaise, no fevers/chills HEENT: + frequent headaches posterior, significant headaches- for months, No changes in hearing, + vision. NECK: Negative for lumps, goiter, pain and significant neck swelling, thick full RESPIRATORY: Negative for cough, hemoptysis, wheezing, dyspnea or shortness of breath CARDIOVASCULAR: Maybe one brief chest pain since discharge; no leg swelling, orthopnea, or palpitations GI: No nausea, vomiting, + diarrhea. No hematochezia/melena. : No history of dysuria, frequency or incontinence MUSCULOSKELETAL: Negative for joint pain or swelling. SKIN: Negative for lesions, rash, and itching MOOD: Negative for depression, anxiety, or suicidal ideation. EXAM: BP 132/78 (BP Site: Left Arm, BP Position: Sitting, BP Cuff Size: Large Adult) Pulse 72 Temp 36.7 C (98.1 F) (Left Tympanic) Resp 20 Wt 132.5 kg (292 lb) SpO2 96% BMI 47.85 kg/m PHYSICAL EXAM: General Appearance: Well appearing, alert, in no acute distress, well-hydrated, well nourished. and Obese. Head: Normocephalic, no masses, lesions, tenderness or abnormalities. Lungs: Lungs clear to auscultation. No wheezing, rhonchi, rales.. Heart: RRR without murmur, gallop, or rubs. No ectopy. Abdomen: Normal abdominal exam, Abdomen soft, non-tender. Bowel sounds normal. No masses, organomegaly. Musculoskeletal: No joint swelling, deformity, or tenderness. LABS: Positive C diff on 10/07/23 ASSESSMENT/PLAN: 1. Chest pain, unspecified type - ICD9: 786.50, ICD10: R07.9 (primary diagnosis) Chest pain similar to coronary ischemia related symptom, heart cath non-occlusive disease Continue current medications 2. C. difficile colitis - ICD9: 008.45, ICD10: A04.72 - Finish vancomycin on Thursday - Bring stool specimen in Thursday to repeat C-diff - Off work through next Thursday d/t contagious - C/S GI doctor F/U Discussed treatment plan and patient voices understanding. Patient's questions answered appropriately. Medications and potential side effects were discussed and patient voices understanding. Return to the office as scheduled or as needed for worsening/no improvement. Nuha Mosquera APRN.[employer] The patient indicates understanding of these issues and agrees with the plan. documented in this encounter [facility] 10-09-2023 Discharge summary Note Date/Time October 09, 2023 2:20pm [facility] Medical Records Department [address] [place] [address] Discharge Summary 10/09/23 1420 MR#: [id number] Acct: [id number] Name: ROMEL LOPES Rep #:[id number] : 1970 52 From: Gerardo Watkins DO PCP: Dr. Ginger Lugo MD Status:ADM I NO Location: [place] [address] Providers Date of Admission: 10/07/23 Date of Discharge: 10/09/23 Primary Care Physician: Dr. Ginger Lugo MD Consultations 10/07/23 11:40 Consult: Cardiology Routine Consulting Provider: Jude Mckeon Reason for Consult: CHEST PAIN EMERGENT Consult: No MD Notified: Yes Date Notified: 10/07/23 Time Notified: 11:21 Method of Notification: Verbal Reason For Visit: CP Diagnosis Discharge Diagnosis (1) Chest pain: Status: Acute Code(s): R07.9 - Chest pain, unspecified Plan 1. Chest pain in a patient with a history of occlusive coronary disease and previous stent placement-patient will undergo cardiac catheterization tomorrow, he was unable to complete a stress test today due to chest pain #2 coronary artery disease-patient will remain on his present medications #3 type 2 diabetes-patient's blood sugars will be monitored, sliding scale insulin will be administered per scale #4 essential hypertension-patient will remain on his present blood pressure medications, they will be adjusted as necessary #5 hypothyroidism-patient will remain on his Synthroid #6 hyperlipidemia-patient will be placed on atorvastatin #7 morbid obesity-complicates care, medical course, recovery, and prognosis #8 C. difficile colitis-patient states he has been having diarrhea over the last2 weeks, he did not mention it to me yesterday, patient was placed on vancomycinp.o. Total clinical time spent by myself addressing the patient's medical issues, reviewing all of his data, and collaborating with patient's care team: 35 minutes Medications at Discharge Home Medications amlodipine 10 mg tablet 10 mg PO QHS BLOOD PRESSURE 03/15/18 levothyroxine 125 mcg tablet 125 mcg PO DAILY THYROID 02/08/19 atorvastatin 40 mg tablet 40 mg PO QHS CHOLESTEROL 10/09/22 metformin 500 mg tablet 1,000 mg PO BID BLOOD SUGARS 10/09/22 paroxetine HCl 40 mg tablet 40 mg PO QHS DEPRESSION 10/09/22 metoprolol succinate 50 mg tablet,extended release 24 hr 50 mg PO QHS BLOOD PRESSURE 10/13/22 nitroglycerin 0.4 mg sublingual tablet 0.4 mg sublingual Q5M PRN CHEST PAIN #14tabs 10/24/22 aspirin 81 mg tablet,delayed release 81 mg PO DAILY HEART HEALTH 10/07/23 clopidogrel 75 mg tablet 75 mg PO QHS BLOOD THINNER 10/07/23 glimepiride 2 mg tablet 2 mg PO DAILY blood sugar 10/07/23 vancomycin 125 mg capsule 125 mg PO .QID #40 caps 10/09/23 Hospital Course Operations None Procedures 2-D Echocardiogram and Cardiac catheterization Summary of Care Provided Minutes Spent on Discharge: 31 Hospital Course: This 52-year-old white male was seen in the emergency room at [facility] with complaints of precordial chest pain, he has a history of coronary artery disease with stent placement. Workup in the emergency room including troponins was unremarkable, patient was admitted to PCU, cardiac enzymes were cycled and these remain negative. The patient's primary care physician contacted the floor and advised that the patient was positive for C. difficile colitis, he had had a stool specimen collected as an outpatient recently. Patient was also having diarrhea and did not tell this examiner or the nurses that he had diarrhea. Patient was placed on oral vancomycin. Patient underwenta nuclear stress test but was unable to finish the stress test due to chest pain. Arrangements were made by cardiology to perform a cardiac catheterizationon the patient, on 10/09/2023, patient underwent a cardiac catheterization which did not show any evidence of occlusive coronary disease, cardiology recommended that the patient remain on his current medications. On 10/09/2023, patient was seen and examined: On examination he appeared in good health and spirits. Vital signs as documented. Skin warm and dry and without overt rashes. Neck without JVD, neck was supple, trachea midline, thyroid was normal. Lungs clear bilaterally, normal air movement was noted. Heart exam notable for regular rhythm, normal sounds and absence of murmurs, rubs or gallops. Abdomen unremarkable and without evidence of organomegaly, masses, or abdominal aortic enlargement. Bowel sounds are present, abdomen is not distended. Extremities nonedematous, no cyanosis was noted, no clubbing was noted. Neuro: Cranial nerves II through XII are grossly intact, no focal motor deficits were noted, sensation to light touch and pinprick intact, motor exam 5/5 throughout. Psych:Patient is alert and oriented x3, he does not appear anxious or depressed, he does not appear agitated. Patient was discharged home in stable condition on 10/09/2023. Weight / BMI Weight Weight: 133.3 kg Body Mass Index (BMI) 44.6 ABG / Lab / Microbiology Data 10/09/23 06:05 10/09/23 06:05 Laboratory: Laboratory Results - last 24 hr 10/08/23 16:25: POC Glucose 185 H 10/08/23 22:36: POC Glucose 185 H 10/09/23 06:05: WBC 7.0, RBC 4.75, Hgb 12.8 L, Hct 40.7, MCV 85.7, MCH 26.9 L, MCHC 31.4 L, RDW Std Deviation 45.8 H, RDW Coeff of Melva 14.8 H, Plt Count 190, MPV 9.8, Immature Gran % (Auto) 0.700, Neut % (Auto) 62.1, Lymph % (Auto) 27.9, Towns % (Auto) 6.1, Eos % (Auto) 2.6, Baso % (Auto) 0.6, Absolute Neuts (auto) 4.4, Absolute Lymphs (auto) 1.96, Nucleated RBC % 0, Sodium 141, Potassium 3.8, Chloride 108 H, Carbon Dioxide 30.0, Anion Gap 3 L, BUN 13, Creatinine 0.97, Estim Creat Clear Calc 118.90, Est GFR (MDRD) Af Amer 104, Est GFR (MDRD) Non-Af86, BUN/Creatinine Ratio 13.3, Glucose 182 H, Calcium 9.2 10/09/23 06:46: POC Glucose 182 H 10/09/23 11:34: POC Glucose 148 H D/C Instructions Discharge Diet: 1800 Calorie Control Diet Weight Bearing Status: Full weight bearing Meaningful Use Info Meaningful Use Diagnoses (Choose all that apply): None applicable Discharge Plan Admission Admit Date/Time: 10/07/23 11:17 Primary Reason for Your Visit: chest pain Attending Provider: Gerardo Watkins Primary Care Provider: Ginger Lugo Consulting Providers: Jude Mckeon Discharge Orders/Prescriptions Prescriptions: New vancomycin 125 mg capsule 125 mg PO .QID Qty: 40 0RF Continued metoprolol succinate 50 mg tablet extended release 24 hr 50 mg PO QHS atorvastatin 40 mg tablet 40 mg PO QHS paroxetine HCl 40 mg tablet 40 mg PO QHS metformin 500 mg tablet 1,000 mg PO BID Hold Instructions: Hold for 3 days. amlodipine 10 MG tablet 10 mg PO QHS levothyroxine 125 MCG tablet 125 mcg PO DAILY nitroglycerin 0.4 mg Tablet, Sublingual 0.4 mg sublingual Q5M PRN (Reason: CHEST PAIN ) Qty: 14 5RF clopidogrel 75 mg tablet 75 mg PO QHS aspirin 81 mg tablet,delayed release (DR/EC) 81 mg PO DAILY glimepiride 2 mg tablet 2 mg PO DAILY Referrals / Follow Up: Ginger Lugo MD [Primary Care Provider] - 10/16/23 1:00 pm (Appointment is Beau Mosquera N[place]stonP[place]) Lebron Mackenzie KAIWHAKAHAERE, KAIWHAKAHAERE-C [Med Staff - Adv Practice Prof] - 11/09/23 10:00 am Disposition Disposition (needs filled in before D/C Order can be placed): Home, Self Care Charges/Coding Visit Charges Inpatient E&M: 44118 Disch Hosp >30min 10/09/23 1514 <Electronically signed by Gerardo Watkins DO> Cosigner Signature (if applicable): CC: Dr. Gerardo Watkins DO; Dr. Ginger Lugo MD~ Signed [facility] Work Phone: 1(968) 513-204802-02-2024 Discharge summary Author Gerardo Watkins [facility] October 09, 2023 2:19pm Note Date/Time October 09, 2023 2 :14pm [facility] Medical Records Department [address] [place] [address] Instructions for Home/Discharge Instructions 10/09/23 1413 MR#: [id number] Acct: [id number] Name: ROMEL LOPES Rep #:[id number] : 1970 52 From: Gerardo Watkins DO PCP: Dr. Ginger Lugo MD Status:ADM I NO Discharge Instructions Diet Discharge Diet: 1800 Calorie Control Diet Activity Discharge Activity: Return to Normal Activity Weight Bearing Status: Full weight bearing Follow Up Care Test Results: Test results from this visit will be discussed in further detail at your follow- up appointment, if applicable. Discharge Plan Admission Admit Date/Time: 10/07/23 11:17 Primary Reason for Your Visit: chest pain Attending Provider: Gerardo Watkins Primary Care Provider: Ginger Lugo Consulting Providers: Jude Mckeon Discharge Orders/Prescriptions Prescriptions: New vancomycin 125 mg capsule 125 mg PO .QID Qty: 40 0RF Continued metoprolol succinate 50 mg tablet extended release 24 hr 50 mg PO QHS atorvastatin 40 mg tablet 40 mg PO QHS paroxetine HCl 40 mg tablet 40 mg PO QHS metformin 500 mg tablet 1,000 mg PO BID Hold Instructions: Hold for 3 days. amlodipine 10 MG tablet 10 mg PO QHS levothyroxine 125 MCG tablet 125 mcg PO DAILY nitroglycerin 0.4 mg Tablet, Sublingual 0.4 mg sublingual Q5M PRN (Reason: CHEST PAIN ) Qty: 14 5RF clopidogrel 75 mg tablet 75 mg PO QHS aspirin 81 mg tablet,delayed release (DR/EC) 81 mg PO DAILY glimepiride 2 mg tablet 2 mg PO DAILY Referrals / Follow Up: Ginger Lugo MD [Primary Care Provider] - Within 1 Month Lebron Mackenzie NP, KAIWHAKAHAERE-C [Med Staff - [facility]] - 11/09/23 10:00 am Disposition Disposition (needs filled in before D/C Order can be placed): Home, Self Care 10/09/23 1419<Electronically signed by Gerardo Watkins DO>Gerardo Watkins DO CC: Dr. Jude Mckeon MD; Dr. Ginger Lugo MD ~ Signed [facility] Work Phone: 1(587) 866-673702-02-2024 Procedure [facility] 10-08-2023 Progress note Author Gerardo Watkins [facility] October 08, 2023 7:00pm Note Date/Time October 08, 2023 7 :00pm [facility] Medical Records Department [address] [place] [address] [place] [address] Progress Note - Hospitalist 10/08/23 1857 MR#: [id number] Acct: [id number] Name: ROMEL LOPES Rep #:[id number] : 1970 52 From: Gerardo Watkins DO PCP: Dr. Ginger Lugo MD Status:ADM I NO Location: [place] [address] Reason for Visit Reason for Visit: Diagnoses Hyperlipidemia, unspecified (10/07/23) Essential (primary) hypertension (10/07/23) Chest pain, unspecified (10/07/23) Presence of coronary angioplasty implant and graft (10/07/23) Subjective Subjective Patient was seen and examined today, we received word from his PCPs office that the patient has C. difficile, I started him on oral vancomycin. Cardiology prefers to do his cardiac catheterization tomorrow. Patient underwent a cardiacstress test today but had pain during the procedure so it was stopped. Objective Data Objective Data Vital Signs: Vital Signs Temp Pulse Resp BP Pulse Ox O2 Del Method O2 Flow Rate 97.6 F L 76 18 129/90 H 93 Room Air 97 10/08/23 16:28 10/08/23 16:28 10/08/23 16:28 10/08/23 16:28 10/08/23 16:28 10/08/23 16:28 10/07/23 12:00 Oxygen Flow Rate (L/min) 97 Oxygen Delivery Method Room Air Weight: 133.3 kg Body Mass Index (BMI) 44.6 Intake & Output: Intake and Output for Last 24 Hours 10/06/23 10/07/23 10/08/23 23:59 23:59 23:59 Intake Total 335 / 335 Balance 335 / 335 Lab / Micro Data 10/07/23 08:34 10/07/23 08:34 Labs: Laboratory Results - last 24 hr 10/07/23 20:25: POC Glucose 193 H 10/08/23 06:35: POC Glucose 163 H 10/08/23 10:54: POC Glucose 150 H 10/08/23 16:25: POC Glucose 185 H Physical Exam Const alert, oriented x3 and no apparent distress Constitutional Narrative: Patient is morbidly obese General Appearance: cooperative, well kempt and well developed Orientation / Consciousness: awake, oriented to person, oriented to place and oriented to time HEENT normocephalic, head/scalp atraumatic and moist oral mucous membranes Eyes PERRL, EOMs intact bilaterally and conjunctivae normal Neck supple, no JVD, thyroid normal and no carotid bruits General: trachea midline Resp normal respiratory effort, no retractions, no use of accessory muscles and clearto auscultation bilaterally Auscultation: Negative for rales, rhonchi or wheezes Cardio regular rate, regular rhythm, S1 normal heart sound, S2 normal heart sound, no murmurs, no rub and no gallops GI normal to inspection, nondistended, normoactive bowel sounds, soft to palpation,non-tender and non-distended Extremity no clubbing, cyanosis or edema Skin no rashes or lesions noted General Skin Exam: no breakdown Neuro oriented x3, CN's II-XII intact bilaterally, no focal motor deficits and no sensory deficits noted Sensorium / Orientation: awake and alert Speech: speech normal Psych affect normal Assessment & Plan Assessment/Plan (1) Chest pain: PLAN: Plan 1. Chest pain in a patient with a history of occlusive coronary disease and previous stent placement-patient will undergo cardiac catheterization tomorrow, he was unable to complete a stress test today due to chest pain #2 coronary artery disease-patient will remain on his present medications #3 type 2 diabetes-patient's blood sugars will be monitored, sliding scale insulin will be administered per scale #4 essential hypertension-patient will remain on his present blood pressure medications, they will be adjusted as necessary #5 hypothyroidism-patient will remain on his Synthroid #6 hyperlipidemia-patient will be placed on atorvastatin #7 morbid obesity-complicates care, medical course, recovery, and prognosis #8 C. difficile colitis-patient states he has been having diarrhea over the last2 weeks, he did not mention it to me yesterday, patient was placed on vancomycinp.o. Total clinical time spent by myself addressing the patient's medical issues, reviewing all of his data, and collaborating with patient's care team: 35 minutes Charges/Coding Visit Charges Inpatient E&M: 75821 Subs Hosp L2 10/08/23 1900 <Electronically signed by Gerardo Watkins DO> Cosigner Signature (if applicable): CC: ~ Signed [facility] Work Phone: 1(718) 339-288002-01-2024 Consult note Author Jude Mckeon [facility] October 08, 2023 3:45pm Note Date/Time October 08, 2023 2 :09pm [facility] Medical Records Department [address] [place] [address] Consultation - Cardiology 10/08/23 1403 MR#: [id number] Acct: [id number] Name: ROMEL LOPES Rep #:[id number] : 1970 52 From: Jude Mckeon MD PCP: Dr. Ginger Lugo MD Status:ADM I NO Location: [place] [address]- 1 Documented by User: Hanny VALENTIN, PA 10/08/23 14:19 Assessment & Plan Assessment/Plan (1) Chest pain: (2) History of coronary artery stent placement: (3) Essential hypertension: (4) Hyperlipidemia: HPI Consult Data Date of Consult: 10/08/23 HPI Narrative HPI Narrative: ROMEL LOPES is a 52 M who presented to [facility] ER on 10/07/23 with CP. He notes that he has actually been having chest pain frequently almost daily for weeks. Activity seems to bring it on. Patient states he has been sweating more. He is concerned as this is similar to what he felt when he required 2 stents last year. CP is relieved with NTG. He was at his PCP earlier today for abdominal pain that he has been having for weeks. Troponins trended . He was admitted for observation. Echocardiogram demonstrated an EF of 50-55%. He was going to have a stress test this morning, but was having CP that was similar to what he had with his last PCI. Stress test was not done and it was changed to aheart cath. He does have a hx of CAD with stenting to his proximal and mid LAD in 10/2022. Hehas not been seen on our office since then. He also has a hx of HTN,HL, JOSIAH and DM. [facility] Medical History Anxiety Atherosclerosis of coronary artery of [place] heart without angina pectoris BiPAP (biphasic positive airway pressure) dependence Colitis Depression Depression Diabetes Elevated liver enzymes Essential hypertension Family history of heart disease Former smoker Hyperlipidemia Hypertension Hypertension Infection due to ESBL-producing Escherichia coli Kidney stones Leukocytosis Myocardial infarct Nausea vomiting and diarrhea JOSIAH (obstructive sleep apnea) Sepsis Sleep apnea Type 2 diabetes mellitus Home Medications amlodipine 10 mg tablet 10 mg PO QHS BLOOD PRESSURE 03/15/18 [History Last Taken 03/17/23] levothyroxine 125 mcg tablet 125 mcg PO DAILY THYROID 02/08/19 [History Last Taken 10/07/23] atorvastatin 40 mg tablet 40 mg PO QHS CHOLESTEROL 10/09/22 [History Last Taken 10/06/23] metformin 500 mg tablet 1,000 mg PO BID BLOOD SUGARS 10/09/22 [History Last Taken 10/07/23] paroxetine HCl 40 mg tablet 40 mg PO QHS DEPRESSION 10/09/22 [History Last Taken 10/06/23] metoprolol succinate 50 mg tablet,extended release 24 hr 50 mg PO QHS BLOOD PRESSURE 10/13/22 [History Last Taken 10/06/23] nitroglycerin 0.4 mg sublingual tablet 0.4 mg sublingual Q5M PRN CHEST PAIN #14tabs 10/24/22 [Rx Last Taken Unknown] aspirin 81 mg tablet,delayed release 81 mg PO DAILY HEART HEALTH 10/07/23 [History Last Taken 10/06/23] clopidogrel 75 mg tablet 75 mg PO QHS BLOOD THINNER 10/07/23 [History Last Taken 10/06/23] glimepiride 2 mg tablet 2 mg PO DAILY 10/07/23 [History Last Taken 10/07/23] Allergy/AdvReac Type Severity Reaction Status Date / Time No Known Allergies Allergy Verified 03/04/23 21:55 Family History Father Myocardial infarction, Onset Age: 45 Mother Hypertension Mixed hyperlipidemia Grandmother CHF (congestive heart failure) Surgical History (Updated 10/08/23 @ 14:19 by Hanny VALENTIN, PA) History of coronary artery stent placement (~10/24/22) History of tonsillectomy Status post excision of lipoma Social History household members: spouse Smoking Status: Former smoker alcohol intake: current details: occasional substance use type: does not use caffeine: Yes Type: carbonated beverages Number of servings: 6 ROS Constitutional Constitutional: Denies change in weight, fatigue or frequent falls Eyes Eyes: Denies acute decrease in peripheral vision, blurry vision or change in vision ENT HEENT: Denies dizziness, dry mouth, epistaxis, headache(s), tinnitus or vertigo Cardiovascular Cardiovascular: Reports as per HPI Respiratory/Chest Respiratory/Chest: Denies cough, dyspnea, dyspnea on exertion, tachypnea or wheezing Gastrointestinal Gastrointestinal: Reports abdominal pain and diarrhea; Denies bloating, coffee ground emesis or heartburn Genitourinary Genitourinary: Denies hematuria Musculoskeletal Musculoskeletal: Denies myalgias, numbness or tingling Neurologic Neurologic: Denies abnormal gait, abnormal speech, memory loss, paresthesias or weakness Physical Exam Const alert, oriented x3, no apparent distress and healthy appearing Nutritional Appearance: morbidly obese HEENT normocephalic, head/scalp atraumatic, hearing grossly normal bilaterally, external ears normal, external nose normal and moist oral mucous membranes Eyes PERRL, EOMs intact bilaterally, conjunctivae normal and no scleral icterus Neck no lymphadenopathy, supple and no JVD Resp clear to auscultation bilaterally Cardio regular rate, regular rhythm, S1 normal heart sound, S2 normal heart sound, no murmurs, no rub, no gallops, no clicks, no JVD and peripheral pulses 2+ throughout GI normal to inspection, nondistended, normoactive bowel sounds, soft to palpation,non-tender and non-distended Extremity normal to inspection, normal capillary refill, no clubbing, cyanosis or edema and no pedal edema Neuro oriented x3, CN's II-XII intact bilaterally, moves all extremities and no focal motor deficits Psych cooperative and affect normal Risk Stratification Risk Stratification Applicable: Yes Age >/= 65: No >/= 3 CAD Risk Factors (HTN, HLD, DM, family hx of CAD, or current smoker): Yes Aspirin Use in the Past 7 Days: Yes Severe Angina (>/= episodes in 24 hours): Yes EKG ST Changes >/= 0.5mm: No Positive Cardiac Marker: No KATHY Risk Stratification Score: 3 KATHY % Risk: 13% Risk Objective Data Vital Signs: Vital Signs Temp Pulse Resp BP Pulse Ox O2 Del Method O2 Flow Rate 98.2 F 72 18 153/96 H 96 Room Air 97 10/08/23 12:00 10/08/23 12:00 10/08/23 12:00 10/08/23 12:00 10/08/23 12:00 10/08/23 12:00 10/07/23 12:00 Oxygen Flow Rate (L/min) 97 Oxygen Delivery Method Room Air Weight: 293 lb 14.019 oz Body Mass Index (BMI) 44.6 Intake & Output: Intake and Output for Last 24 Hours 10/06/23 10/07/23 10/08/23 23:59 23:59 23:59 Intake Total 335 / 335 Balance 335 / 335 Lab / Micro Data 10/07/23 08:34 10/07/23 08:34 Labs: Laboratory Results - last 24 hr 10/07/23 15:00: Troponin I High Sens 7 10/07/23 16:48: POC Glucose 139 H 10/07/23 20:25: POC Glucose 193 H 10/08/23 06:35: POC Glucose 163 H 10/08/23 10:54: POC Glucose 150 H Radiography Diagnostic Testing: Radiology Impression Echocardiogram 10/07/23 11:40 Interpretation Summary The estimated ejection fraction is 50-55 %. Normal LV systolic function No significant valve abnormality In comparison to previous echocardiogram done in October 23, 2022 no significant change noted. Ordering Physician: Gerardo Watkins Referring Physician: Ginger Lugo Performed By: Herberth Pop RCS Documented by User: Dr. Jude Mckeon MD 10/08/23 15:45 Assessment & Plan Assessment/Plan (1) Chest pain: (2) History of coronary artery stent placement: (3) Essential hypertension: (4) Hyperlipidemia: PLAN: Plan Cardiac care plan recommendation; 52-year-old patient with history of CAD In October 2022 had a PCI stent of the mid and proximal LAD On the angiographic review he also had a lesion of the OM1 and RCA which is nonobstructive around 50%. This presentation he came with symptoms of chest pain recurrent episode of chest pain and lightheadedness and dizziness Other medical problem include history of diabetes Hypertension Hyperlipidemia Noted also had a symptoms of diarrhea and been tested positive for C. difficile. His echocardiographic evaluation LV function preserved. As he has recurrent episode of chest pain typical of angina with a history of CAD and a prior stent in October recommended to proceed and evaluate further with cardiac catheterization. Right radial artery approach. LV function is preserved by an echocardiogram. Continue to monitor and follow-up clinically and will discuss further plan with results of the cardiac catheterization which is set up for tomorrow. Jude Mckeon MD,FAC,[facility] HPI Consult Data Date of Consult: 10/08/23 [facility] Medical History Anxiety Atherosclerosis of coronary artery of [place] heart without angina pectoris BiPAP (biphasic positive airway pressure) dependence Colitis Depression Depression Diabetes Elevated liver enzymes Essential hypertension Family history of heart disease Former smoker Hyperlipidemia Hypertension Hypertension Infection due to ESBL-producing Escherichia coli Kidney stones Leukocytosis Myocardial infarct Nausea vomiting and diarrhea JOSIAH (obstructive sleep apnea) Sepsis Sleep apnea Type 2 diabetes mellitus Home Medications amlodipine 10 mg tablet 10 mg PO QHS BLOOD PRESSURE 03/15/18 [History Last Taken 03/17/23] levothyroxine 125 mcg tablet 125 mcg PO DAILY THYROID 02/08/19 [History Last Taken 10/07/23] atorvastatin 40 mg tablet 40 mg PO QHS CHOLESTEROL 10/09/22 [History Last Taken 10/06/23] metformin 500 mg tablet 1,000 mg PO BID BLOOD SUGARS 10/09/22 [History Last Taken 10/07/23] paroxetine HCl 40 mg tablet 40 mg PO QHS DEPRESSION 10/09/22 [History Last Taken 10/06/23] metoprolol succinate 50 mg tablet,extended release 24 hr 50 mg PO QHS BLOOD PRESSURE 10/13/22 [History Last Taken 10/06/23] nitroglycerin 0.4 mg sublingual tablet 0.4 mg sublingual Q5M PRN CHEST PAIN #14tabs 10/24/22 [Rx Last Taken Unknown] aspirin 81 mg tablet,delayed release 81 mg PO DAILY HEART HEALTH 10/07/23 [History Last Taken 10/06/23] clopidogrel 75 mg tablet 75 mg PO QHS BLOOD THINNER 10/07/23 [History Last Taken 10/06/23] glimepiride 2 mg tablet 2 mg PO DAILY 10/07/23 [History Last Taken 10/07/23] Allergy/AdvReac Type Severity Reaction Status Date / Time No Known Allergies Allergy Verified 03/04/23 21:55 Family History Father Myocardial infarction, Onset Age: 45 Mother Hypertension Mixed hyperlipidemia Grandmother CHF (congestive heart failure) Surgical History (Updated 10/08/23 @ 14:19 by Hanny VALENTIN, PA) History of coronary artery stent placement (~10/24/22) History of tonsillectomy Status post excision of lipoma Social History household members: spouse Smoking Status: Former smoker alcohol intake: current details: occasional substance use type: does not use caffeine: Yes Type: carbonated beverages Number of servings: 6 Risk Stratification Age >/= 65: No KATHY Risk Stratification Score: 3 KATHY % Risk: 13% Risk Lab / Micro Data 10/07/23 08:34 10/07/23 08:34 10/08/23 1545 <Electronically signed by Jude Mckeon MD> Cosigner Signature (if applicable): 10/08/23 1419 <Electronically signed by Hanny VALENTIN PA> CC: Dr. Jude Mckeon MD; Dr. Ginger Lugo MD~ Signed [facility] Work Phone: [phone]) 162-794202-01-2024 History and physical note Author Gerardo Watkins [facility] October 08, 2023 1:05pm Note Date/Time October 08, 2023 1 2:58pm [facility] Medical Records Department [address] [place] [id number] H&P Exam - Hospitalist 10/08/23 1254 MR#: [id number] Acct: [id number] Name: ROMEL LOPES Rep #:[id number] : 1970 52 From: Gerardo Watkins DO PCP: Dr. Ginger Lugo MD Status:ADM I NO [facility] HPI - General General Date of Admission: 10/07/23 Date of Service: 10/07/23 Chief Complaint: Chest pain HPI Narrative ROMEL LOPES, is a 52 M who presents to the emergency room at [facility] with complaints of substernal chest pain that started the morning he was seen in the emergency room -approximately 3 hours prior. Patient's stated that he had intermittent chest pain over the last few weeks, he stated that his chest discomfort was brought on by exertion, he was seen in his PCPs office today and was given a nitroglycerin and his chest pain resolved. Patient was also given 4 baby aspirin in the office, patient is already on Plavix because he had a previous history of atherosclerotic heart disease and a stent placed in the past. Patient describes his chest discomfort as pressure-like in nature. Patient denies any radiation to his neck or down his arm. Workup in the emergency room included a CBC which was unremarkable, patient's chemistry profile was remarkable for glucose of 152. AST and ALT were elevated at 62 and 106 respectively. Troponin was normal. Chest x-ray showed no acute abnormality. Patient's EKG showed a sinus rhythm at a rate of 63 bpm with nonspecific anterior wall ST-T wave changes. Patient will be placed into observation status on PCU, his enzymes will be cycled, he will be monitored on telemetry, and echocardiogram will be obtained, he will be seen in consultation by cardiology. [facility] Medical History Anxiety Atherosclerosis of coronary artery of [place] heart without angina pectoris BiPAP (biphasic positive airway pressure) dependence Colitis Depression Depression Diabetes Elevated liver enzymes Essential hypertension Family history of heart disease Former smoker Hyperlipidemia Hypertension Hypertension Kidney stones Leukocytosis Myocardial infarct Nausea vomiting and diarrhea JOSIAH (obstructive sleep apnea) Sepsis Sleep apnea Type 2 diabetes mellitus Home Medications amlodipine 10 mg tablet 10 mg PO QHS BLOOD PRESSURE 03/15/18 [History Last Taken 03/17/23] levothyroxine 125 mcg tablet 125 mcg PO DAILY THYROID 02/08/19 [History Last Taken 10/07/23] atorvastatin 40 mg tablet 40 mg PO QHS CHOLESTEROL 10/09/22 [History Last Taken 10/06/23] metformin 500 mg tablet 1,000 mg PO BID BLOOD SUGARS 10/09/22 [History Last Taken 10/07/23] paroxetine HCl 40 mg tablet 40 mg PO QHS DEPRESSION 10/09/22 [History Last Taken 10/06/23] metoprolol succinate 50 mg tablet,extended release 24 hr 50 mg PO QHS BLOOD PRESSURE 10/13/22 [History Last Taken 10/06/23] nitroglycerin 0.4 mg sublingual tablet 0.4 mg sublingual Q5M PRN CHEST PAIN #14tabs 10/24/22 [Rx Last Taken Unknown] aspirin 81 mg tablet,delayed release 81 mg PO DAILY HEART HEALTH 10/07/23 [History Last Taken 10/06/23] clopidogrel 75 mg tablet 75 mg PO QHS BLOOD THINNER 10/07/23 [History Last Taken 10/06/23] glimepiride 2 mg tablet 2 mg PO DAILY 10/07/23 [History Last Taken 10/07/23] Allergy/AdvReac Type Severity Reaction Status Date / Time No Known Allergies Allergy Verified 03/04/23 21:55 Family History Father Myocardial infarction, Onset Age: 45 Mother Hypertension Mixed hyperlipidemia Grandmother CHF (congestive heart failure) Surgical History History of coronary artery stent placement (~10/24/22) History of tonsillectomy Status post excision of lipoma Social History household members: spouse Smoking Status: Former smoker alcohol intake: current details: occasional substance use type: does not use caffeine: Yes Type: carbonated beverages Number of servings: 6 ROS Constitutional Constitutional: Denies anorexia, change in weight, fever(s), night sweats or weakness Eyes Eyes: Denies blurry vision, change in vision, discharge from eye(s) or eye pain Cardiovascular Cardiovascular: Reports chest pain; Denies claudication, dyspnea on exertion, edema, palpitations, paroxysmal nocturnal dyspnea or rapid heart rate Respiratory/Chest Respiratory/Chest: Denies cough, dyspnea, hemoptysis, shortness of breath at rest or shortness of breath with exertion Gastrointestinal Gastrointestinal: Denies abdominal pain, constipation, diarrhea, hematemesis, hematochezia, melena, nausea or vomiting Genitourinary Genitourinary: Denies dysuria, hematuria, urinary frequency, urinary hesitancy, urinary incontinence or urinary urgency Musculoskeletal Musculoskeletal: Denies back pain, joint pain, joint stiffness, joint swelling, myalgias or neck pain Neurologic Neurologic: Denies abnormal gait, abnormal speech, dizziness, focal weakness, headache(s), loss of vision, numbness, other visual disturbances, paresthesias, syncope or tingling Psychiatric Psychiatric: Denies anxiety, cognitive impairment, depression, irritability, mood swings or suicidal ideation Endocrine Endocrinology: Denies change in body appearance, cold intolerance, excessive sweating, heat intolerance, polydipsia or polyuria Hematologic/Lymphatic Hematologic/Lymphatic: Denies none, anemia, easy bleeding, easy bruising or lymphadenopathy Allergic/Immunologic Allergic/Immunologic: Denies rhinitis, urticaria, eczemia or asthma Vital Signs Vital Signs Vital Signs: 10/07/23 18:05 10/07/23 19:45 10/07/23 20:27 Temperature 97.6 F L 97.9 F Temperature Source Oral Oral Pulse Rate 77 81 Respiratory Rate 18 18 Respiratory Effort Normal Non-Labored Respiratory Depth Normal Respiratory Pattern Normal Blood Pressure 137/87 H 148/86 H Blood Pressure [BP] Blood Pressure Mean 103 106 Blood Pressure Mean [BP] Blood Pressure Source Monitor Monitor Blood Pressure Source [BP] Blood Pressure Position Semi-Fowlers Sitting Blood Pressure Position [BP] Blood Pressure Location Right Forearm Left Arm Blood Pressure Location [BP] Pulse Ox 96 95 Oxygen Delivery Method Room Air Room Air Room Air 10/07/23 20:29 10/08/23 02:38 10/08/23 02:42 Temperature 97.8 F Temperature Source Oral Pulse Rate 81 77 Respiratory Rate 18 Respiratory Effort Normal Non-Labored Respiratory Depth Normal Respiratory Pattern Normal Blood Pressure 148/86 H 128/73 H Blood Pressure [BP] Blood Pressure Mean 91 Blood Pressure Mean [BP] Blood Pressure Source Monitor Blood Pressure Source [BP] Blood Pressure Position Semi-Fowlers Blood Pressure Position [BP] Blood Pressure Location Right Forearm Blood Pressure Location [BP] Pulse Ox 95 Oxygen Delivery Method Room Air Room Air 10/08/23 06:30 10/08/23 08:20 10/08/23 08:29 Temperature 97.5 F L 97.7 F L Temperature Source Oral Oral Pulse Rate 78 71 71 Respiratory Rate 17 20 H Respiratory Effort Respiratory Depth Respiratory Pattern Blood Pressure 133/84 H 130/78 H 130/78 H Blood Pressure [BP] Blood Pressure Mean 100 95 Blood Pressure Mean [BP] Blood Pressure Source Monitor Monitor Blood Pressure Source [BP] Blood Pressure Position Semi-Fowlers Semi-Fowlers Blood Pressure Position [BP] Blood Pressure Location Right Forearm Right Arm Blood Pressure Location [BP] Pulse Ox 95 95 Oxygen Delivery Method Room Air Room Air 10/08/23 08:36 10/08/23 08:25 10/08/23 12:00 Temperature 98.2 F Temperature Source Oral Pulse Rate 73 72 Respiratory Rate 20 H 18 Respiratory Effort Normal Non-Labored Respiratory Depth Normal Respiratory Pattern Normal Blood Pressure 153/96 H Blood Pressure [BP] 123/73 H Blood Pressure Mean 115 Blood Pressure Mean [BP] 89 Blood Pressure Source Monitor Blood Pressure Source [BP] Monitor Blood Pressure Position Sitting Blood Pressure Position [BP] Semi-Fowlers Blood Pressure Location Right Forearm Blood Pressure Location [BP] Right Arm Pulse Ox 94 95 96 Oxygen Delivery Method Room Air Room Air Room Air Weight Weight: 133.3 kg Body Mass Index (BMI) 44.6 Physical Exam Const alert, oriented x3 and no apparent distress Constitutional Narrative: Patient is morbidly obese General Appearance: cooperative, well kempt and well developed Orientation / Consciousness: awake, oriented to person, oriented to place and oriented to time HEENT normocephalic, head/scalp atraumatic, hearing grossly normal bilaterally and moist oral mucous membranes Eyes PERRL, EOMs intact bilaterally and conjunctivae normal Neck supple, no JVD, thyroid normal and no carotid bruits General: trachea midline Resp normal respiratory effort, no retractions, no use of accessory muscles and clear to auscultation bilaterally Auscultation: Negative for rales, rhonchi or wheezes Cardio regular rate, regular rhythm, S1 normal heart sound, S2 normal heart sound, no murmurs, no rub and no gallops GI normal to inspection, nondistended, normoactive bowel sounds, soft to palpation, non-tender and non-distended Extremity no clubbing, cyanosis or edema Skin no rashes or lesions noted General Skin Exam: no breakdown Neuro oriented x3, CN's II-XII intact bilaterally, moves all extremities, no focal motor deficits and no sensory deficits noted Sensorium / Orientation: awake and alert Speech: speech normal Psych affect normal Results Lab / Micro Data 10/07/23 08:34 10/07/23 08:34 Labs: Laboratory Results - last 24 hr 10/07/23 15:00: Troponin I High Sens 7 10/07/23 16:48: POC Glucose 139 H 10/07/23 20:25: POC Glucose 193 H 10/08/23 06:35: POC Glucose 163 H 10/08/23 10:54: POC Glucose 150 H Imaging Radiology Impression Echocardiogram 10/07/23 11:40 Interpretation Summary The estimated ejection fraction is 50-55 %. Normal LV systolic function No significant valve abnormality In comparison to previous echocardiogram done in October 23, 2022 no significant change noted. Ordering Physician: Gerardo Watkins Referring Physician: Ginger Lugo Performed By: Herberth Pop RCS Assessment & Plan Assessment/Plan (1) Chest pain: PLAN: Plan 1. Chest pain in a patient with a history of occlusive coronary disease and previous stent placement-patient was placed into observation status on PCU, echocardiogram will be performed, enzymes will be cycled, and he will be seen by cardiology. Patient will be scheduled for a nuclear exercise stress test on 10/08/2023 #2 coronary artery disease-patient will remain on his present medications, aspirin will be added to his medications after admission #3 type 2 diabetes-patient's blood sugars will be monitored, sliding scale insulin will be administered per scale #4 essential hypertension-patient will remain on his present blood pressure medications, they will be adjusted as necessary #5 hypothyroidism-patient will remain on his Synthroid #6 hyperlipidemia-patient will be placed on atorvastatin #7 morbid obesity-complicates care, medical course, recovery, and prognosis Total clinical time spent by myself addressing the patient's medical issues, reviewing all of his data, and collaborating with patient's care team: 55 minutes Charges/Coding Visit Charges Inpatient E&M: 13454 Init Hosp L2 10/08/23 1305 <Electronically signed by Gerardo Watkins DO> Cosigner Signature (if applicable): CC: Dr. Gerardo Watkins DO; Dr. Ginger Lugo MD~ Signed [facility] Work Phone: 1(720) 596-717702-01-2024 Miscellaneous Notes* Telephone Encounter - Marilu Sanchez Ma - 10/08/2023 8:57 AM EST Faxed lab already, spoke with his nurse on PCU and notified her to isolate patient. Marilu Sanchez Ma * Telephone Encounter - Ginger Lugo MD - 10/08/2023 8:54 AM EST We need to contact his nurse at the hospital he is at and let them know his c diff just came back positive overnight. Can fax results to them. They will want to know for isolation and start treatment * Telephone Encounter - Marilu Sanchez Ma - 10/08/2023 8:53 AM EST Pt sent mychart saying he was admittied * Telephone Encounter - Ginger Lugo MD - 10/08/2023 8:10 AM EST Some of his stool studies are pending but is positive for c diff.. will need treated. I cannot see if he was admitted or not. Was sent to ER for chest pain yesterday. Let me know if he was admitted-was [facility] Discharge summary Author Remus Ungur [facility] October 07, 2023 3:56pm Note Date/Time October 07, 2023 9 :21am [facility] Medical Records Department [address] [place] [address] Emergency Department Summary 10/07/23 MR#: [id number] Acct: [id number] Name: ROMEL LOPES Rep #:[id number] : 1970 52 From: Fernandez Bryant DO PCP: Dr. Ginger Lugo MD Status:ADM I NO Location: [place] [address] HPI History of Present Illness Chief Complaint: Chest Pain Detail of Chief Complaint: Chest pain Informant: patient Narrative Narrative: Patient presents to the emergency department with complaint of chest pain that started this morning around 6 AM. Patient states that he is actually been having chest pain frequently almost daily for weeks. Activity seems to bring iton. Patient states he has been sweating more. Patient states he feels the sameway that he felt when he required 2 stents last year. Patient was being seen byDr. Lugo in the office today for follow-up on some abdominal pain that he has been having for weeks. Patient had a CT scan a few weeks ago of his abdomen pelvis that apparently was unremarkable. Patient states his abdominal pain is actually been getting better. Patient was given nitroglycerin and the office and his chest pain resolved. Patient also was given 4 baby aspirin in the office. Patient takes daily Plavix. [facility] Medical History Anxiety Atherosclerosis of coronary artery of [place] heart without angina pectoris BiPAP (biphasic positive airway pressure) dependence Colitis Depression Depression Diabetes Elevated liver enzymes Essential hypertension Family history of heart disease Former smoker Hyperlipidemia Hypertension Hypertension Kidney stones Leukocytosis Myocardial infarct Nausea vomiting and diarrhea JOSIAH (obstructive sleep apnea) Sepsis Sleep apnea Type 2 diabetes mellitus Home Medications amlodipine 10 mg tablet 10 mg PO QHS BLOOD PRESSURE 03/15/18 [History Last Taken 03/17/23] levothyroxine 125 mcg tablet 125 mcg PO DAILY THYROID 02/08/19 [History Last Taken 10/07/23] atorvastatin 40 mg tablet 40 mg PO QHS CHOLESTEROL 10/09/22 [History Last Taken 10/06/23] metformin 500 mg tablet 1,000 mg PO BID BLOOD SUGARS 10/09/22 [History Last Taken 10/07/23] paroxetine HCl 40 mg tablet 40 mg PO QHS DEPRESSION 10/09/22 [History Last Taken 10/06/23] metoprolol succinate 50 mg tablet,extended release 24 hr 50 mg PO QHS BLOOD PRESSURE 10/13/22 [History Last Taken 10/06/23] nitroglycerin 0.4 mg sublingual tablet 0.4 mg sublingual Q5M PRN CHEST PAIN #14tabs 10/24/22 [Rx Last Taken Unknown] aspirin 81 mg tablet,delayed release 81 mg PO DAILY HEART HEALTH 10/07/23 [History Last Taken 10/06/23] clopidogrel 75 mg tablet 75 mg PO QHS BLOOD THINNER 10/07/23 [History Last Taken 10/06/23] glimepiride 2 mg tablet 2 mg PO DAILY 10/07/23 [History Last Taken 10/07/23] Allergy/AdvReac Type Severity Reaction Status Date / Time No Known Allergies Allergy Verified 03/04/23 21:55 Family History Father Myocardial infarction, Onset Age: 45 Mother Hypertension Mixed hyperlipidemia Grandmother CHF (congestive heart failure) Surgical History History of coronary artery stent placement (~10/24/22) History of tonsillectomy Status post excision of lipoma Social History household members: spouse Smoking Status: Former smoker alcohol intake: current details: occasional substance use type: does not use caffeine: Yes Type: carbonated beverages Number of servings: 6 ROS ROS ED Review of Systems ROS Unobtainable: other Constitutional Constitutional ED: Reports lethargy; Denies chills, fever(s), sweats or weight loss Eyes Eyes: Denies blurry vision, change in vision or diplopia ENT ENT ED: Denies rhinorrhea or sore throat Cardiovascular Cardiovascular: Reports chest pain; Denies orthopnea or racing heartbeat Respiratory/Chest Respiratory/Chest: Reports dyspnea on exertion; Denies cough, dyspnea, orthopneaor sputum Gastrointestinal Gastrointestinal: Denies abdominal pain, diarrhea, nausea or vomiting Genitourinary Genitourinary ED: Denies dysuria, hematuria or urinary frequency Musculoskeletal Musculoskeletal: Denies arthralgias, back pain, myalgias or neck pain Integumentary Denies abscess, Abrasions or rash Neurologic Neurologic: Denies headache(s) or weakness Psychiatric Psychiatric: Denies anxiety, depression or suicidal thoughts Endocrine Endocrinology: Denies polydipsia, polyphagia or polyuria Hematologic/Lymphatic Hematologic/Lymphatic: Denies easy bleeding, easy bruising or lymphadenopathy Allergic/Immunologic Allergic/Immunologic ED: Denies mouth swelling, tongue swelling or urticaria EXAM Physical Exam Const Vital Signs: 10/07/23 08:44 10/07/23 08:47 10/07/23 09:16 Temperature 97.2 F L Temperature Source Temporal Pulse Rate 65 Respiratory Rate 22 H Respiratory Effort Normal Non-Labored Blood Pressure 138/82 H Blood Pressure Mean 100 Pulse Ox 94 Oxygen Delivery Method Room Air Room Air 10/07/23 09:00 10/07/23 10:00 10/07/23 11:12 Temperature Temperature Source Pulse Rate 61 64 Respiratory Rate 23 H 18 Respiratory Effort Blood Pressure 90/52 L 107/56 L 112/83 H Blood Pressure Mean 64 73 92 Pulse Ox 94 96 Oxygen Delivery Method Room Air Positive well nourished and well developed General Appearance ED: well developed and NAD HEENT Reports TM's clear and moist mucous membranes normocephalic and atraumatic; Negative for trauma or tenderness Tympanic Membrane ED: Yes TM's clear Eyes PERRL and EOMs intact bilaterally General Eye ED: Negative for pale conjunctiva or scleral icterus Neck no lymphadenopathy, supple and no JVD General: Negative for tenderness Chest Wall inspection of chest normal and palpation of chest normal Chest: Negative for tenderness Resp normal respiratory effort and clear to auscultation bilaterally Effort and Inspection: Negative for respiratory distress or pain with movement Auscultation: Negative for rhonchi, wheezes or diminished lung sounds Cardio regular rate, regular rhythm, S1 normal heart sound, S2 normal heart sound and no murmurs Peripheral Pulses: pulses 2+ throughout GI normal to inspection, nondistended, normoactive bowel sounds, soft to palpation,non-tender, non-distended and no masses Back/Spine no CVA tenderness and no thoracic nor lumbar tenderness Extremity normal to inspection General Extremety ED: Negative for edema General Extremity: Negative for edema Neuro oriented x3, CN's II-XII intact bilaterally, no sensory deficits noted and gait normal Sensorium / Orientation: awake, alert, oriented to person, oriented to place andoriented to time Motor Exam: strength 5/5 throughout and strength abnormal Psych mental status grossly normal Skin no rashes or lesions noted and no wounds Heart Score History: Moderately Suspicious ECG: Nonspecific Repolarization Age: >45 - <65 years Risk Factors: >/= 3 Risk Factors or History of CAD Troponin: </= Normal Limit Score: 5 MDM MDM MDM Narrative Medical decision making narrative: Patient presents to the emergency department with chest discomfort off-and-on for the last several weeks. Symptoms exertional at times. He describes feelingsweaty. Patient felt similarly with prior cardiac issues and needed stenting. IV line established on arrival. Patient placed on athletic monitor. His PCP gave him 4 baby aspirin. CBC with differential white count 9.2 with hemoglobin 14 and platelet count of 234. Chemistries unremarkable. LFTs showed a slightlyelevated AST of 62 and an ALT of 106. Lipase was normal at 43. Case discussed with cardiology and they agree with admission for further evaluation. Patient'sheart score is a 5. Lab Data Attestation: I reviewed the patient's lab results. Labs: Laboratory Results - last 24 hr 10/07/23 08:34 WBC 9.2 RBC 5.07 Hgb 14.2 Hct 43.0 MCV 84.8 MCH 28.0 MCHC 33.0 RDW Std Deviation 44.1 H RDW Coeff of Melva 14.6 Plt Count 234 MPV 10.0 Immature Gran % (Auto) 0.500 Neut % (Auto) 71.4 H Lymph % (Auto) 19.8 Towns % (Auto) 5.4 Eos % (Auto) 2.4 Baso % (Auto) 0.5 Absolute Neuts (auto) 6.6 Absolute Lymphs (auto) 1.82 Nucleated RBC % 0 Sodium 138 Potassium 3.9 Chloride 106 Carbon Dioxide 26.0 Anion Gap 6 BUN 13 Creatinine 0.98 Estim Creat Clear Calc 118.48 Est GFR (MDRD) Af Amer 103 Est GFR (MDRD) Non-Af 85 BUN/Creatinine Ratio 13.2 Glucose 152 H Calcium 9.6 Total Bilirubin 0.90 Direct Bilirubin 0.24 AST 62 H ALT 106 H Alkaline Phosphatase 103 Troponin I High Sens 7 Total Protein 7.9 Albumin 3.8 Globulin 4.1 Lipase 43 Radiography Diagnostic Testing: Clinical Impression(s) from Imaging Studies Chest X-Ray 10/07/23 09:30 IMPRESSION: No acute abnormality is present. Electronically Signed: Gabriel Johnson MD at 9:49 EST , 1 view chest x-ray obtained interpreted by myself as no evidence of pneumothoraxor infiltrate or acute disease process. Radiology in agreement. EKG Initial EKG: Comments: Sinus rhythm with rate of [address] changes anteriorly Prior EKG tracings: available for review Prior: Changed Discharge Plan Dx/Rx/DC Orders Clinical Impression: Diabetes, History of coronary artery disease, Chest pain Disposition Disposition: Acute Care Hospital [facility] Discharge Date/Time: 10/07/23 11:36 What to do if you have Problems For any increased pain, shortness of breath, bleeding, nausea or vomiting, chestpain, or any unexpected problems, contact your Primary Care Provider. Call [facility] ([phone]) or report to the closest Emergency Room. Call 911 if necessary. 10/07/23 1556 <Electronically signed by Fernandez Bryant DO> Cosigner Signature (if applicable): CC: Dr. Ginger Lugo MD ~ Signed [facility] Work Phone: 1(322) 987-209611-13-2023 Miscellaneous Notes* Telephone Encounter - Elyse Seals MA - 07/20/2023 10:57 AM EST Patient has been identified by name and [...] 07/24/23 Elyse Seals MA [facility] Miscellaneous Notes* Telephone Encounter - Pat Tse LPN - 07/04/2023 8:16 AM EDT [place]-03/30/23 Labs-03/30/23 NOV-07/24/23 documented in this encounterW[facility]08-[facility]23 History of Present illness NarrativePatient is here for 1 week f/u w/ PSA. Most recent PSA was 0.19 on 04/29. He was seen last week for ER f/u. CT was done 10/07/22 and was normal from standpoint. [facility] [place] [facility] showed mild perinephricstranding but no stones or obstruction. .Urine cx was sent last week that did come back positive. .He was given Augmentin on Thursday for a positive Cx and feels much better...ED is mild..[facility] Work Phone: [phone] 165-916707-24-2023 History of Present illness Narrative* Ginger Lugo MD - 03/30/2023 9:23 AM EDT No chief complaint on file. HPI: Patient presents today for office visit for follow up. HOSPITAL/ER FOLLOW UP: Reason for visit: fever, abd pain Which facility: [facility] Date of visit: 03/18/23 Discharge: 03/22/23 [...] Fam hx-cardiovas dis NEC n/a father, of [place] at 45 Hypothyroid Other and unspecified hyperlipidemia [...] ATTACK AT AGE 45 Heart Mother no blockages, hyperlipidemia Breast Cancer Mother Diabetes Maternal Grandmother [...] past medical history, surgical history, family history andsocial history today. REVIEW OF SYSTEMS All other [...] ICD9: 250.00, ICD10: E11.9 - stable. Ginger Lugo MD documented in this encounterW[facility]07-16-2023 Discharge summary Author Artem Gonzales [facility] March 22, 2023 10:19am Note Date/Time March 22, 2023 10:1 5am [facility] Medical Records Department [address] [place] [id number] Discharge Summary 03/22/23 0732 MR#: [id number] Acct: [id number] Name: ROMEL LOPES Rep #:[id number] : 1970 52 From: Artem Little PCP: Dr. Ginger Lugo MD Status:ADM I N Location: [place] [address] Providers Date of Admission: 03/18/23 Primary Care Physician: Dr. Ginger Lugo MD Consultations 03/18/23 14:23 Consult: Urology Routine Consulting Provider: Harpreet Viramontes Reason for Consult: Suspected urinary obstuctive, B/LPyelo EMERGENT Consult: No Notified: Yes Date Notified: 03/18/23 Time Notified: 14:23 Method of Notification: Verbal 03/20/23 09:23 Consult: Infectious Disease Routine Consulting Provider: Sen Guzman Reason for Consult: ESBL UTI with B/L Pyelonephritis EMERGENT Consult: No Notified: Yes Date Notified: 03/20/23 Time Notified: 09:23 Method of Notification: Text Reason For Visit: PYELONEPHRITIS, SEPSIS Diagnosis Discharge Diagnosis (1) Pyelonephritis: Status: Acute Code(s): N12 - Tubulo-interstitial nephritis, not specified as acute or chronic Plan The patient is a 52 y/o M is being admitted for abdominal cramping, bilateral flank discomfort since, nausea, vomiting, back pain and fever and lab and imaging finding consistent with sepsis due to acute complicated pyelonephritis #1. Sepsis due to bilateral Acute Complicated Pyelonephritis: Patient is beingadmitted to PCU. The patient presented with sepsis with clinical indicators of tachycardia, high fever 103.3 Fahrenheit, leukocytosis due to bilateral pyelonephritis with cystitis with acute sepsis-related organ dysfunction as evidenced by GM on CKD 3. Blood cultures x2 and urine culture is ordered and are pending. Patient was well rested as per sepsis protocol. Patient is +5 L positive fluid balance. Patient on antibiotic IV ceftriaxone. IV fluid rate decreased to 50 mill per hour. 03/19: Patient is still spikes fever and systemic symptoms symptoms due to sepsis. Continue IV antibiotic blood work reviewed. Glucose is controlled. Sepsis is resolved. Prelim urine culture shows presumptive E. coli more than 100,000 colonies. Blood cultures are pending. Patient evaluated by urologist and feels no acute intervention needed. 03/20: Urine culture growing ESBL E. coli. IV antibiotic's ceftriaxone changed to meropenem. ID consult reviewed and appreciated. On IV meropenem. Recommended ertapenem for 9 more days at the time of discharge probably anticipating tomorrow. Leukocytosis resolved. 03/21: On ertapenem 1 g IV daily. Patient is staying as he will have home healthfrom Thursday onwards therefore discharge tomorrow after dose of ertapenem. Patient states that he needs work off time until he completes ertapenem which is1 g IM daily as his work will not allow to go between work shift for antibiotic administration. 03/22: Patient will have an ertapenem 1 g IV today and then discharged to complete outpatient ertapenem 1 g IM until 03/29/2023. Work off from his workplace already detailed in the discharge instruction. Patient does not have burning micturition and renal angle pain. Follow-up urologist Dr. Viramontes in 2-4weeks. #2. Acute kidney injury on CKD stage IIIa most likely due to sepsis: Bladder scan showed 0 amount after voiding urine. Urologist is consulted. CT abdomen with IV contrast showed no renal stones or hydronephrosis but heterogeneous appearance of renal cortex with partial loss of corticomedullary junction. Trace perinephric stranding. 03/19: Serial improvement in creatinine from 1.88-1.32. 03/20 creatinine 1.14. GM resolved. #3. Hypokalemia: Admission K+ 3.4, magnesium level requested, supplementation given, repeat level was 3.9 today 03/19 hypokalemia resolved. #4. CAD: Status post PCI, continue patient home aspirin, Plavix, statin, metoprolol, not on SOCO inhibitor/ARB due to GM #5. Anxiety and depression: continue patient on Paxil regimen. #6. Diabetes mellitus type II: Hold oral home regimen, ADA diet, accu checks w/ISS. #7. Hypothyroidism: continue patient home levothyroxine regimen. #8. Hypertension: Continue home regimen including metoprolol, isosorbide cautiously given presentation although BP has been stable, PRN hydralazine. #9. Hyperlipidemia: continue patient home statin therapy. #10. Morbid Obesity: Weight loss and lifestyle changes encouraged. #11. Former tobacco use: Encourage continued tobacco cessation. #12. JOSIAH: BIPAP q HS. #13. DVT prophylaxis: Heparin. #14. CODE status: Patient HCPOA and living will is not in place. His who is present would be his decision maker if he was unable. Full code. Discharge medication reconciliation done. Discharge follow-up instructions completed. Discharge process discussed with the patient and all questions wereanswered to patient's satisfaction. Total time spent, exact 35 minutes on discharge meds reconciliation, examination, coordination of care with nurses and ancillary staff, review of imaging and blood test and discussion with the patient on follow-up instructions. Clinical Impression(s) from Imaging Studies Chest X-Ray 03/17/23 19:30 IMPRESSION: Normal x-ray examination of the chest. Abdomen/Pelvis CT 03/17/23 21:51 IMPRESSION: Heterogeneous appearing kidneys suspicious for acute pyelonephritis. No renal stones or obstructive uropathy. Medications at Discharge Home Medications amlodipine 10 mg tablet 10 mg PO DAILY blood pressure 03/15/18 levothyroxine 125 mcg tablet 125 mcg PO DAILY thyroid 02/08/19 atorvastatin 40 mg tablet 40 mg PO QHS cholesterol 10/09/22 metformin 500 mg tablet 1,000 mg PO BID blood sugar 10/09/22 nystatin-triamcinolone topical cream 1 applic topical .COMPLEX penile rash 10/09/22 paroxetine HCl 40 mg tablet 40 mg PO DAILY depression 10/09/22 aspirin 81 mg tablet,delayed release (Adult Aspirin Regimen) 81 mg PO DAILY #90 tabs 10/13/22 metoprolol succinate 50 mg tablet,extended release 24 hr 100 mg PO DAILY HEART 10/13/22 nitroglycerin 0.4 mg sublingual tablet 0.4 mg sublingual Q5M PRN Cardiac/Chest Pain #14 tabs 10/24/22 clopidogrel 75 mg tablet See Rx Instructions .Route .COMPLEX #30 tabs 11/17/22 oxycodone-acetaminophen 5 mg-325 mg tablet 1 tab PO Q6H PRN PRN pain 5 days #20 TABLETS 01/31/23 isosorbide dinitrate 5 mg tablet 5 mg PO BID #60 tabs 02/13/23 ondansetron 4 mg disintegrating tablet 4 mg PO Q6H PRN nausea and vomiting #7 tabs 03/04/23 ertapenem 1 gram solution for injection 1 g IM DAILY #8 ea 03/20/23 sennosides 8.6 mg-docusate sodium 50 mg tablet (Stool Softener-Stimulant Laxative) 2 tab PO BID PRN PRN Constipation #0 tabs 03/22/23 Physical Exam Narrative Seen and examined. Bilateral flank pain and burning micturition has resolved. No fever. Physical exam General: Alert, Oriented x3, Cooperative, morbid obesity BMI 42.5 kg/m?. HEENT: Atraumatic, PERRLA, EOMI, Normocephalic Oral: Oral mucosa moist. No Gingival or Mucosal Lesions/ Ulcerations Neck: Supple, No JVD, Negative Carotid Bruits Lungs: Air entry diminished in bilateral lung bases. No crepitation/rhonchi Cardiovascular: Regular rate, Regular Rhythm, Normal S1, Normal S2, No murmurs Abdomen: Bowel Sounds Present, Soft, Non Tender, Non-Distended : No bilateral renal angle tenderness. No suprapubic tenderness. Urine spontaneously. No hematuria. Extremities: Mild bilateral pitting edema, Capillary Refill Less than 3 Seconds Skin: No rashes, No breakdown Musculoskeletal: No Tenderness to Palpation of Joints or Extremities. ROM restricted. Neurological: Cranial nerves II-XII grossly intact, DTR 2+/4 and Symmetrical, Neuro grossly intact Psych/Mental Status: Flat affect. Weight / BMI Weight Weight: 279 lb Body Mass Index (BMI) 42.4 ABG / Lab / Microbiology Data 03/21/23 06:13 03/21/23 06:13 Laboratory: Laboratory Results - last 24 hr 03/21/23 06:13: Sodium 140, Potassium 4.3, Chloride 104, Carbon Dioxide 29.0, Anion Gap 7, BUN 11, Creatinine 1.02, Estim Creat Clear Calc 81.96, Est GFR (MDRD) Af Amer 99, Est GFR (MDRD) Non-Af 81, BUN/Creatinine Ratio 10.8, Glucose 126 H, Calcium 9.0 03/21/23 06:52: POC Glucose 141 H 03/21/23 11:30: POC Glucose 143 H 03/21/23 16:37: POC Glucose 201 H 03/21/23 22:00: POC Glucose 202 H Microbiology: Microbiology 03/17/23 22:10 Urine, Clean Catch Urine Culture - Final ESBL Escherichia coli 03/18/23 01:40 Blood Culture (Wb) - Anticubital Left Blood Culture - Preliminary No growth in 48 hours. 03/18/23 00:57 Blood Culture (Wb) - Anticubital Right Blood Culture - Preliminary No growth in 48 hours. 03/17/23 19:29 Nasal Secretion SARS-CoV-2 Antigen (Rapid) - Final D/C Instructions Discharge Diet: 1800 Calorie Control Diet and 2000 mg Sodium Diet Weight Bearing Status: Weight bearing as tolerated Call your doctor if you observe: Fever of 101 or Higher, Coldness, Increased Pain, Numbness or Tingling, Change in Color, Inability to urinate, Inability to have a bowel movement, Shortness of breath, Dizziness, Fainting spells, Swellingin the ankles, Chest pain, Prolonged hiccupping, Increased palpitations (irregular heartbeat) and Calf discomfort When: IN 2 WEEKS Meaningful Use Info Meaningful Use Diagnoses (Choose all that apply): None applicable Discharge Plan Admission Admit Date/Time: 03/18/23 00:34 Primary Reason for Your Visit: B/L Pyenopnephritis Attending Provider: Artem Gonzales Primary Care Provider: Ginger Lugo Consulting Providers: Hiral Rodriguez; Harpreet Viramontes; Sen Guzman Instructions Additional Instructions / Restrictions: Patient requires ertapenem until 03/29/2023 as recommended by infectious disease economics consultant. Patient not able to go take time off from work for ertapenem IM therefore recommended work off until 03/29/2023. Patient time off from work will be from time of admission 03/18/2023 to 03/29/2023 Discharge Orders/Prescriptions Prescriptions: New ertapenem 1 gram recon soln 1 g IM DAILY Qty: 8 0RF Rx Instructions: stop date 03/29/23 dx: esbl ecoli pyelo weekly bmp, cbc, and LFT. Fax to [phone] sennosides-docusate sodium [Stool Softener-Stimulant Laxat] 8.6-50 mg Tablet 2 tab PO BID PRN PRN (Reason: Constipation) Qty: 0 0RF Continued metoprolol succinate 50 mg tablet extended release 24 hr 100 mg PO DAILY aspirin [Adult Aspirin Regimen] 81 mg tablet,delayed release (DR/EC) 81 mg PO DAILY Qty: 90 2RF atorvastatin 40 mg tablet 40 mg PO QHS paroxetine HCl 40 mg tablet 40 mg PO DAILY nystatin-triamcinolone Cream 1 applic topical .COMPLEX Rx Instructions: 1 applic topically apply sparingly to groin and penile rash twice daily for irritation/infection up to 2 weeks and then take a week off; amlodipine 10 MG tablet 10 mg PO DAILY Patient Comments: TAKE 1 TABLET BY MOUTH EVERY DAY levothyroxine 125 MCG tablet 125 mcg PO DAILY Patient Comments: TAKE 1 TABLET EVERY DAY nitroglycerin 0.4 mg Tablet, Sublingual 0.4 mg sublingual Q5M PRN (Reason: Cardiac/Chest Pain) Qty: 14 5RF oxycodone-acetaminophen 5-325 mg tablet 1 tab PO Q6H PRN PRN (Reason: pain) 5 Days Qty: 20 0RF Hold Instructions: NO LONGER TAKING ondansetron 4 mg tablet,disintegrating 4 mg PO Q6H PRN (Reason: nausea and vomiting) Qty: 7 0RF clopidogrel 75 mg tablet See Rx Instructions .ROUTE .COMPLEX Qty: 30 11RF Dose Instruction: TAKE 1 TABLET BY MOUTH EVERY DAY Rx Instructions: TAKE 1 TABLET BY MOUTH EVERY DAY isosorbide dinitrate 5 mg tablet 5 mg PO BID Qty: 60 3RF Rx Instructions: allow nitrate-free interval of 12-14 hrs per 24-hr period Held metformin 500 mg tablet 1,000 mg PO BID Hold Instructions: Hold for 3 days. Referrals / Follow Up: [facility] [Other] - 03/23/23 12:00 pm Harpreet Viramontes MD [Med Staff - Active Staff] - Within 2 Weeks Sen Guzman MD [Med Staff - Active Staff] - Within 1 Month (as needed for pyelonephritis/UTI.) Disposition Disposition (needs filled in before D/C Order can be placed): Home, Self Care Charges/Coding Visit Charges Inpatient E&M: 98293 Disch Hosp >30min 03/22/23 1019 <Electronically signed by Artem Gonzales MD> Cosigner Signature (if applicable): CC: Dr. Artem Gonzales MD; Dr. Ginger Lugo MD~ Signed [facility] Work Phone: [phone]) 994-356507-16-2023 Discharge summary Author Artem Gonzales [facility] March 22, 2023 7:32am Note Date/Time March 22, 2023 7:29 am [facility] Medical Records Department [address] [place] [address] Instructions for Home/Discharge Instructions 03/22/23 0728 MR#: [id number] Acct: [id number] Name: ROMEL LOPES Rep #:[id number] : 1970 52 From: Artem Little PCP: Dr. Ginger Lugo MD Status:ADM I N Discharge Instructions Diet Discharge Diet: 1800 Calorie Control Diet and 2000 mg Sodium Diet Activity Discharge Activity: Return to Normal Activity Weight Bearing Status: Weight bearing as tolerated Dressing / Incision Call your doctor if you observe: Fever of 101 or Higher, Coldness, Increased Pain, Numbness or Tingling, Change in Color, Inability to urinate, Inability to have a bowel movement, Shortness of breath, Dizziness, Fainting spells, Swellingin the ankles, Chest pain, Prolonged hiccupping, Increased palpitations (irregular heartbeat) and Calf discomfort Follow Up Care When: IN 2 WEEKS Test Results: Test results from this visit will be discussed in further detail at your follow- up appointment, if applicable. Discharge Plan Admission Admit Date/Time: 03/18/23 00:34 Primary Reason for Your Visit: B/L Pyenopnephritis Attending Provider: Artem Gonzales Primary Care Provider: Ginger Lugo Consulting Providers: Hiral Rodriguez; Harpreet Viramontes; Sen Guzman Discharge Orders/Prescriptions Prescriptions: New ertapenem 1 gram recon soln 1 g IM DAILY Qty: 8 0RF Rx Instructions: stop date 03/29/23 dx: esbl ecoli pyelo weekly bmp, cbc, and LFT. Fax to [phone] sennosides-docusate sodium [Stool Softener-Stimulant Laxat] 8.6-50 mg Tablet 2 tab PO BID PRN PRN (Reason: Constipation) Qty: 0 0RF Continued metoprolol succinate 50 mg tablet extended release 24 hr 100 mg PO DAILY aspirin [Adult Aspirin Regimen] 81 mg tablet,delayed release (DR/EC) 81 mg PO DAILY Qty: 90 2RF atorvastatin 40 mg tablet 40 mg PO QHS paroxetine HCl 40 mg tablet 40 mg PO DAILY nystatin-triamcinolone Cream 1 applic topical .COMPLEX Rx Instructions: 1 applic topically apply sparingly to groin and penile rash twice daily for irritation/infection up to 2 weeks and then take a week off; amlodipine 10 MG tablet 10 mg PO DAILY Patient Comments: TAKE 1 TABLET BY MOUTH EVERY DAY levothyroxine 125 MCG tablet 125 mcg PO DAILY Patient Comments: TAKE 1 TABLET EVERY DAY nitroglycerin 0.4 mg Tablet, Sublingual 0.4 mg sublingual Q5M PRN (Reason: Cardiac/Chest Pain) Qty: 14 5RF oxycodone-acetaminophen 5-325 mg tablet 1 tab PO Q6H PRN PRN (Reason: pain) 5 Days Qty: 20 0RF Hold Instructions: NO LONGER TAKING ondansetron 4 mg tablet,disintegrating 4 mg PO Q6H PRN (Reason: nausea and vomiting) Qty: 7 0RF clopidogrel 75 mg tablet See Rx Instructions .ROUTE .COMPLEX Qty: 30 11RF Dose Instruction: TAKE 1 TABLET BY MOUTH EVERY DAY Rx Instructions: TAKE 1 TABLET BY MOUTH EVERY DAY isosorbide dinitrate 5 mg tablet 5 mg PO BID Qty: 60 3RF Rx Instructions: allow nitrate-free interval of 12-14 hrs per 24-hr period Held metformin 500 mg tablet 1,000 mg PO BID Hold Instructions: Hold for 3 days. Referrals / Follow Up: [facility] [Other] - 03/23/23 12:00 pm Harpreet Viramontes MD [Med Staff - Active Staff] - Within 2 Weeks Sen Guzman MD [Med Staff - Active Staff] - Within 1 Month (as needed for pyelonephritis/UTI.) Disposition Disposition (needs filled in before D/C Order can be placed): Home, Self Care 03/22/23 0732<Electronically signed by Artem Gonzales MD>Artem Gonzales MD CC: Dr. Hiral Rodriguez MD; Dr. Harpreet Viramontes MD; Dr. Sen Guzman MD; Dr. Ginger Lugo MD ~ Signed [facility] Work Phone: [phone] 342-944207-15-2023 Progress note Author [facility] March 21, 2023 1:24pm Note Date/Time March 21, 2023 1:24 pm [facility] Medical Records Department [address] [place] [id number] Progress Note - Hospitalist 03/21/23 0806 MR#: [id number] Acct: [id number] Name: ROMEL LOPES Rep #:[id number] : 1970 52 From: Artem Little PCP: Dr. Ginger Lugo MD Status:ADM I N Location: [place] [address] Reason for Visit Reason for Visit: Diagnoses Other bacterial infections of unspecified site (03/18/23) Tubulo-interstitial nephritis, not specified as acute or chronic (03/18/23) Extended spectrum beta lactamase (ESBL) resistance (03/18/23) Subjective Subjective Follow-up for bilateral pyelonephritis. Objective Data Objective Data Vital Signs: Vital Signs Temp Pulse Resp BP Pulse Ox O2 Del Method O2 Flow Rate 96.5 F L 68 20 H 121/78 H 96 CPAP 2 03/21/23 06:00 03/21/23 06:00 03/21/23 06:00 03/21/23 06:00 03/21/23 06:00 03/21/23 06:00 03/19/23 22:00 FiO2 21 03/18/23 00:24 Oxygen Flow Rate (L/min) 2 Oxygen Delivery Method CPAP Weight: 277 lb 8.992 oz Body Mass Index (BMI) 42.2 Intake & Output: Intake and Output for Last 24 Hours 03/19/23 03/20/23 03/21/23 23:59 23:59 23:59 Intake Total 2590 / 2590 2970 / 2970 120 / 120 Output Total 1400 / 1400 400 / 400 675 / 675 Balance 1190 / 1190 2570 / 2570 -555 / -555 Lab / Micro Data 03/21/23 06:13 03/21/23 06:13 Labs: Laboratory Results - last 24 hr 03/20/23 11:36: POC Glucose 115 H 03/20/23 16:17: POC Glucose 213 H 03/20/23 22:28: POC Glucose 198 H 03/21/23 06:13: WBC 7.5, RBC 4.21 L, Hgb 11.5 L, Hct 37.8 L, MCV 89.8, MCH 27.3,MCHC 30.4 L, RDW Std Deviation 50.4 H, RDW Coeff of Melva 15.2 H, Plt Count 183, MPV 10.8, Immature Gran % (Auto) 0.700, Neut % (Auto) 65.2, Lymph % (Auto) 21.0,Towns % (Auto) 11.5 H, Eos % (Auto) 1.2, Baso % (Auto) 0.4, Absolute Neuts (auto)4.9, Absolute Lymphs (auto) 1.57, Nucleated RBC % 0, Sodium 140, Potassium 4.3, Chloride 104, Carbon Dioxide 29.0, Anion Gap 7, BUN 11, Creatinine 1.02, Estim Creat Clear Calc 81.96, Est GFR (MDRD) Af Amer 99, Est GFR (MDRD) Non-Af 81, BUN/Creatinine Ratio 10.8, Glucose 126 H, Calcium 9.0 Micro: Microbiology 03/17/23 22:10 Urine, Clean Catch Urine Culture - Final ESBL Escherichia coli 03/18/23 01:40 Blood Culture (Wb) - Anticubital Left Blood Culture - Preliminary No growth in 48 hours. 03/18/23 00:57 Blood Culture (Wb) - Anticubital Right Blood Culture - Preliminary No growth in 48 hours. 03/17/23 19:29 Nasal Secretion SARS-CoV-2 Antigen (Rapid) - Final Physical Exam Narrative Seen and examined. Bilateral flank pain has much improved almost to normal. Still has burning micturition. No fever last night or last 24 hours. Physical exam General: Alert, Oriented x3, Cooperative, morbid obesity BMI 42.5 kg/m?. HEENT: Atraumatic, PERRLA, EOMI, Normocephalic Oral: Oral mucosa moist. No Gingival or Mucosal Lesions/ Ulcerations Neck: Supple, No JVD, Negative Carotid Bruits Lungs: Air entry diminished in bilateral lung bases. No crepitation/rhonchi Cardiovascular: Regular rate, Regular Rhythm, Normal S1, Normal S2, No murmurs Abdomen: Bowel Sounds Present, Soft, Non Tender, Non-Distended : Mild bilateral renal angle tenderness. No suprapubic tenderness. Mild dysuria, voiding dark urine spontaneously. No hematuria. Extremities: Mild bilateral pitting edema, Capillary Refill Less than 3 Seconds Skin: No rashes, No breakdown Musculoskeletal: No Tenderness to Palpation of Joints or Extremities. ROM restricted. Neurological: Cranial nerves II-XII grossly intact, DTR 2+/4 and Symmetrical, Neuro grossly intact Psych/Mental Status: Flat affect. Assessment & Plan Assessment/Plan (1) Pyelonephritis: PLAN: Plan The patient is a 52 y/o M is being admitted for abdominal cramping, bilateral flank discomfort since, nausea, vomiting, back pain and fever and lab and imaging finding consistent with sepsis due to acute complicated pyelonephritis #1. Sepsis due to bilateral Acute Complicated Pyelonephritis: Patient is beingadmitted to PCU. The patient presented with sepsis with clinical indicators of tachycardia, high fever 103.3 Fahrenheit, leukocytosis due to bilateral pyelonephritis with cystitis with acute sepsis-related organ dysfunction as evidenced by GM on CKD 3. Blood cultures x2 and urine culture is ordered and are pending. Patient was well rested as per sepsis protocol. Patient is +5 L positive fluid balance. Patient on antibiotic IV ceftriaxone. IV fluid rate decreased to 50 mill per hour. 03/19: Patient is still spikes fever and systemic symptoms symptoms due to sepsis. Continue IV antibiotic blood work reviewed. Glucose is controlled. Sepsis is resolved. Prelim urine culture shows presumptive E. coli more than 100,000 colonies. Blood cultures are pending. Patient evaluated by urologist and feels no acute intervention needed. 03/20: Urine culture growing ESBL E. coli. IV antibiotic's ceftriaxone changed to meropenem. ID consult reviewed and appreciated. On IV meropenem. Recommended ertapenem for 9 more days at the time of discharge probably anticipating tomorrow. Leukocytosis resolved. 03/21: On ertapenem 1 g IV daily. Patient is staying as he will have home healthfrom Thursday onwards therefore discharge tomorrow after dose of ertapenem. Patient states that he needs work off time until he completes ertapenem which is1 g IM daily as his work will not allow to go between work shift for antibiotic administration. #2. Acute kidney injury on CKD stage IIIa most likely due to sepsis: Bladder scan showed 0 amount after voiding urine. Urologist is consulted. CT abdomen with IV contrast showed no renal stones or hydronephrosis but heterogeneous appearance of renal cortex with partial loss of corticomedullary junction. Trace perinephric stranding. 03/19: Serial improvement in creatinine from 1.88-1.32. 03/20 creatinine 1.14. GM resolved. #3. Hypokalemia: Admission K+ 3.4, magnesium level requested, supplementation given, repeat level was 3.9 today 03/19 hypokalemia resolved. #4. CAD: Status post PCI, continue patient home aspirin, Plavix, statin, metoprolol, not on SOCO inhibitor/ARB due to GM #5. Anxiety and depression: continue patient on Paxil regimen. #6. Diabetes mellitus type II: Hold oral home regimen, ADA diet, accu checks w/ISS. #7. Hypothyroidism: continue patient home levothyroxine regimen. #8. Hypertension: Continue home regimen including metoprolol, isosorbide cautiously given presentation although BP has been stable, PRN hydralazine. #9. Hyperlipidemia: continue patient home statin therapy. #10. Morbid Obesity: Weight loss and lifestyle changes encouraged. #11. Former tobacco use: Encourage continued tobacco cessation. #12. JOSIAH: BIPAP q HS. #13. DVT prophylaxis: Heparin. #14. CODE status: Patient HCPOA and living will is not in place. His who is present would be his decision maker if he was unable. Full code. Clinical Impression(s) from Imaging Studies Chest X-Ray 03/17/23 19:30 IMPRESSION: Normal x-ray examination of the chest. Abdomen/Pelvis CT 03/17/23 21:51 IMPRESSION: Heterogeneous appearing kidneys suspicious for acute pyelonephritis. No renal stones or obstructive uropathy. Charges/Coding Visit Charges Inpatient E&M: 19788 Subs Hosp L2 03/21/23 1324 <Electronically signed by Artem Gonzales MD> Cosigner Signature (if applicable): CC: ~ Signed [facility] Work Phone: [phone]) 144-664807-14-2023 Progress note Author Artem Gonzales [facility] March 20, 2023 1:22pm Note Date/Time March 20, 2023 9:26 am [facility] Medical Records Department [address] [place] [address] Progress Note - Hospitalist 03/20/2325 MR#: [id number] Acct: [id number] Name: ROMEL LOPES Rep #:[id number] : 1970 52 From: Artem Little PCP: Dr. Ginger Lugo MD Status:ADM I N Location: [place] [address] Reason for Visit Reason for Visit: Diagnoses Tubulo-interstitial nephritis, not specified as acute or chronic (03/18/23) Subjective Subjective Follow-up for ESBL E. coli bilateral pyelonephritis. Objective Data Objective Data Vital Signs: Vital Signs Temp Pulse Resp BP Pulse Ox O2 Del Method O2 Flow Rate 98.2 F 76 16 148/93 H 97 Room Air 2 03/20/23 04:00 03/20/23 04:00 03/20/23 04:00 03/20/23 04:00 03/20/23 04:00 03/20/23 08:14 03/19/23 22:00 FiO2 21 03/18/23 00:24 Oxygen Flow Rate (L/min) 2 Oxygen Delivery Method Room Air Weight: 279 lb 12.266 oz Body Mass Index (BMI) 42.5 Intake & Output: Intake and Output for Last 24 Hours 03/18/23 03/19/23 03/20/23 23:59 23:59 23:59 Intake Total 5291.67 / 5531.67 2590 / 2590 300 / 300 Output Total 200 / 600 1400 / 1400 400 / 400 Balance 5091.67 / 4931.67 1190 / 1190 -100 / -100 Lab / Micro Data 03/20/23 05:49 03/20/23 05:49 Labs: Laboratory Results - last 24 hr 03/17/23 22:04: Diff Path Review Reviewed 03/18/23 06:49: Diff Path Review Reviewed 03/19/23 10:00: WBC 7.7, RBC 3.74 L, Hgb 10.5 L, Hct 33.5 L, MCV 89.6, MCH 28.1,MCHC 31.3 L, RDW Std Deviation 49.8 H, RDW Coeff of Melva 15.1 H, Plt Count 163, MPV 10.4, Immature Gran % (Auto) 0.400, Neut % (Auto) 76.9 H, Lymph % (Auto) 11.8 L, Towns % (Auto) 10.2 H, Eos % (Auto) 0.3, Baso % (Auto) 0.4, Absolute Neuts (auto) 5.9, Absolute Lymphs (auto) 0.91, Nucleated RBC % 0, Sodium 135 L, Potassium 3.8, Chloride 102, Carbon Dioxide 27.0, Anion Gap 6, BUN 14, Creatinine 1.32 H, Estim Creat Clear Calc 63.33, Est GFR (MDRD) Af Amer 73, Est GFR (MDRD) Non-Af 61, BUN/Creatinine Ratio 10.6, Glucose 169 H, Calcium 8.5 03/19/23 11:43: POC Glucose 162 H 03/19/23 16:34: POC Glucose 162 H 03/19/23 22:04: POC Glucose 175 H 03/20/23 05:49: WBC 7.7, RBC 4.13 L, Hgb 11.4 L, Hct 36.6 L, MCV 88.6, MCH 27.6,MCHC 31.1 L, RDW Std Deviation 49.3 H, RDW Coeff of Melva 15.1 H, Plt Count 177, MPV 11.0, Immature Gran % (Auto) 0.500, Neut % (Auto) 65.3, Lymph % (Auto) 20.9,Towns % (Auto) 12.1 H, Eos % (Auto) 0.8, Baso % (Auto) 0.4, Absolute Neuts (auto)5.1, Absolute Lymphs (auto) 1.62, Nucleated RBC % 0, Sodium 137, Potassium 3.7, Chloride 104, Carbon Dioxide 28.0, Anion Gap 5, BUN 13, Creatinine 1.14, Estim Creat Clear Calc 73.33, Est GFR (MDRD) Af Amer 87, Est GFR (MDRD) Non-Af 72, BUN/Creatinine Ratio 11.4, Glucose 103, Calcium 8.8 03/20/23 06:11: POC Glucose 99 Micro: Microbiology 03/17/23 22:10 Urine, Clean Catch Urine Culture - Preliminary ESBL Escherichia coli 03/17/23 19:29 Nasal Secretion SARS-CoV-2 Antigen (Rapid) - Final Physical Exam Narrative Seen and examined. Bilateral flank pain is better. Still has burning micturition. No fever last night or last 24 hours. Physical exam General: Alert, Oriented x3, Cooperative, morbid obesity BMI 42.5 kg/m?. HEENT: Atraumatic, PERRLA, EOMI, Normocephalic Oral: Oral mucosa moist. No Gingival or Mucosal Lesions/ Ulcerations Neck: Supple, No JVD, Negative Carotid Bruits Lungs: Air entry diminished in bilateral lung bases. No crepitation/rhonchi Cardiovascular: Regular rate, Regular Rhythm, Normal S1, Normal S2, No murmurs Abdomen: Bowel Sounds Present, Soft, Non Tender, Non-Distended : Mild bilateral renal angle tenderness right more than left. No suprapubic tenderness. Mild dysuria, voiding dark urine spontaneously. No hematuria. Extremities: Mild bilateral pitting edema, Capillary Refill Less than 3 Seconds Skin: No rashes, No breakdown Musculoskeletal: No Tenderness to Palpation of Joints or Extremities. ROM restricted. Neurological: Cranial nerves II-XII grossly intact, DTR 2+/4 and Symmetrical, Neuro grossly intact Psych/Mental Status: Flat affect. Assessment & Plan Assessment/Plan (1) Pyelonephritis: PLAN: Plan The patient is a 52 y/o M is being admitted for abdominal cramping, bilateral flank discomfort since, nausea, vomiting, back pain and fever and lab and imaging finding consistent with sepsis due to acute complicated pyelonephritis #1. Sepsis due to bilateral Acute Complicated Pyelonephritis: Patient is beingadmitted to PCU. The patient presented with sepsis with clinical indicators of tachycardia, high fever 103.3 Fahrenheit, leukocytosis due to bilateral pyelonephritis with cystitis with acute sepsis-related organ dysfunction as evidenced by GM on CKD 3. Blood cultures x2 and urine culture is ordered and are pending. Patient was well rested as per sepsis protocol. Patient is +5 L positive fluid balance. Patient on antibiotic IV ceftriaxone. IV fluid rate decreased to 50 mill per hour. 03/19: Patient is still spikes fever and systemic symptoms symptoms due to sepsis. Continue IV antibiotic blood work reviewed. Glucose is controlled. Sepsis is resolved. Prelim urine culture shows presumptive E. coli more than 100,000 colonies. Blood cultures are pending. Patient evaluated by urologist and feels no acute intervention needed. 03/20: Urine culture growing ESBL E. coli. IV antibiotic's ceftriaxone changed to meropenem. ID consult reviewed and appreciated. On IV meropenem. Recommended ertapenem for 9 more days at the time of discharge probably anticipating tomorrow. Leukocytosis resolved. #2. Acute kidney injury on CKD stage IIIa most likely due to sepsis: Bladder scan showed 0 amount after voiding urine. Urologist is consulted. CT abdomen with IV contrast showed no renal stones or hydronephrosis but heterogeneous appearance of renal cortex with partial loss of corticomedullary junction. Trace perinephric stranding. 03/19: Serial improvement in creatinine from 1.88-1.32. 03/20 creatinine 1.14. GM resolved. #3. Hypokalemia: Admission K+ 3.4, magnesium level requested, supplementation given, repeat level was 3.9 today 03/19 hypokalemia resolved. #4. CAD: Status post PCI, continue patient home aspirin, Plavix, statin, metoprolol, not on SOCO inhibitor/ARB due to GM #5. Anxiety and depression: continue patient on Paxil regimen. #6. Diabetes mellitus type II: Hold oral home regimen, ADA diet, accu checks w/ISS. #7. Hypothyroidism: continue patient home levothyroxine regimen. #8. Hypertension: Continue home regimen including metoprolol, isosorbide cautiously given presentation although BP has been stable, PRN hydralazine. #9. Hyperlipidemia: continue patient home statin therapy. #10. Morbid Obesity: Weight loss and lifestyle changes encouraged. #11. Former tobacco use: Encourage continued tobacco cessation. #12. JOSIAH: BIPAP q HS. #13. DVT prophylaxis: Heparin. #14. CODE status: Patient HCPOA and living will is not in place. His who is present would be his decision maker if he was unable. Full code. Clinical Impression(s) from Imaging Studies Chest X-Ray 03/17/23 19:30 IMPRESSION: Normal x-ray examination of the chest. Abdomen/Pelvis CT 03/17/23 21:51 IMPRESSION: Heterogeneous appearing kidneys suspicious for acute pyelonephritis. No renal stones or obstructive uropathy. Charges/Coding Visit Charges Inpatient E&M: 41918 Subs Hosp L2 03/20/23 1322 <Electronically signed by Artem Gonzales MD> Cosigner Signature (if applicable): CC: ~ Signed [facility] Work Phone: 1(775) 128-852707-14-2023 Consult note Author Sen Guzman [facility] March 20, 2023 11:39am Note Date/Time March 20, 2023 11:[address] [facility] Medical Records Department [address] [place] [address] Consultation - Infectious Dx 03/20/23 1134 MR#: [id number] Acct: [id number] Name: ROMEL LOPES Rep #:[id number] : 1970 52 From: Sen crawford MD PCP: Dr. Ginger Lugo MD Status:ADM I N Location: [place] [address] Assessment & Plan Assessment/Plan (1) Pyelonephritis: PLAN: Ucx with esbl ecoli. Now on meropenem, feeling better. Will d/c ceftriaxone order. Plan for discharge will be 9 more [facility], thank you (2) Infection due to ESBL-producing Escherichia coli: HPI Consult Data Date of Consult: 03/20/23 HPI Narrative Reason for Consultation: pyelo HPI Narrative: ROMEL LOPES, is a 52 M with CAD, obesity, 01/2023 had hydro and ureteral obstructing stone, presented with several days fever, dysuria, diffuse abd and lower back pain, associated n/v and headache. Admitted 03/18 on ceftriaxone, nowucx with esbl ecoli, changed to meche, starting to feel a little better. Full ROS performed and neg except as noted above. [facility] Medical History Anxiety Atherosclerosis of coronary artery of [place] heart without angina pectoris BiPAP (biphasic positive airway pressure) dependence Colitis Depression Depression Diabetes Elevated liver enzymes Essential hypertension Family history of heart disease Former smoker Hyperlipidemia Hypertension Hypertension Kidney stones Leukocytosis Myocardial infarct Nausea vomiting and diarrhea JOSIAH (obstructive sleep apnea) Sepsis Sleep apnea Type 2 diabetes mellitus Home Medications amlodipine 10 mg tablet 10 mg PO DAILY blood pressure 03/15/18 [History Last Taken 03/17/23] levothyroxine 125 mcg tablet 125 mcg PO DAILY thyroid 02/08/19 [History Last Taken 03/17/23] atorvastatin 40 mg tablet 40 mg PO QHS cholesterol 10/09/22 [History Last Taken Unknown] metformin 500 mg tablet 1,000 mg PO BID blood sugar 10/09/22 [History Last Taken 03/17/23] nystatin-triamcinolone topical cream 1 applic topical .COMPLEX penile rash 10/09/22 [History Last Taken Unknown] paroxetine HCl 40 mg tablet 40 mg PO DAILY depression 10/09/22 [History Last Taken Unknown] aspirin 81 mg tablet,delayed release (Adult Aspirin Regimen) 81 mg PO DAILY #90 tabs 10/13/22 [Rx Last Taken 03/17/23] metoprolol succinate 50 mg tablet,extended release 24 hr 100 mg PO DAILY HEART 10/13/22 [History Last Taken Unknown] nitroglycerin 0.4 mg sublingual tablet 0.4 mg sublingual Q5M PRN Cardiac/Chest Pain #14 tabs 10/24/22 [Rx Last Taken Unknown] clopidogrel 75 mg tablet See Rx Instructions .Route .COMPLEX #30 tabs 11/17/22 [Rx Last Taken 03/17/23] oxycodone-acetaminophen 5 mg-325 mg tablet 1 tab PO Q6H PRN PRN pain 5 days #20 TABLETS 01/31/23 [Rx Last Taken Unknown] isosorbide dinitrate 5 mg tablet 5 mg PO BID #60 tabs 02/13/23 [Rx Last Taken 03/17/23] ondansetron 4 mg disintegrating tablet 4 mg PO Q6H PRN nausea and vomiting #7 tabs 03/04/23 [Rx Last Taken Unknown] Allergy/AdvReac Type Severity Reaction Status Date / Time No Known Allergies Allergy Verified 03/04/23 21:55 Family History Father Myocardial infarction, Onset Age: 45 Mother Hypertension Mixed hyperlipidemia Grandmother CHF (congestive heart failure) Surgical History History of coronary artery stent placement (~10/24/22) History of tonsillectomy Status post excision of lipoma Social History household members: spouse Smoking Status: Former smoker alcohol intake: current details: occasional substance use type: does not use caffeine: Yes Type: carbonated beverages Number of servings: 6 Physical Exam Const alert, oriented x3 and no apparent distress General Appearance: cooperative HEENT normocephalic and head/scalp atraumatic Eyes PERRL and EOMs intact bilaterally Neck supple and No nodes Resp normal air movement and clear to auscultation bilaterally Cardio regular rate and regular rhythm GI soft to palpation, non-tender and non-distended Extremity General Extremity: edema Skin no rashes or lesions noted Neuro CN's II-XII intact bilaterally Lab / Micro Data Attestation: I reviewed the patient's lab results. 03/20/23 05:49 03/20/23 05:49 Labs: Laboratory Results - last 24 hr 03/19/23 11:43: POC Glucose 162 H 03/19/23 16:34: POC Glucose 162 H 03/19/23 22:04: POC Glucose 175 H 03/20/23 05:49: WBC 7.7, RBC 4.13 L, Hgb 11.4 L, Hct 36.6 L, MCV 88.6, MCH 27.6,MCHC 31.1 L, RDW Std Deviation 49.3 H, RDW Coeff of Melva 15.1 H, Plt Count 177, MPV 11.0, Immature Gran % (Auto) 0.500, Neut % (Auto) 65.3, Lymph % (Auto) 20.9,Towns % (Auto) 12.1 H, Eos % (Auto) 0.8, Baso % (Auto) 0.4, Absolute Neuts (auto)5.1, Absolute Lymphs (auto) 1.62, Nucleated RBC % 0, Sodium 137, Potassium 3.7, Chloride 104, Carbon Dioxide 28.0, Anion Gap 5, BUN 13, Creatinine 1.14, Estim Creat Clear Calc 73.33, Est GFR (MDRD) Af Amer 87, Est GFR (MDRD) Non-Af 72, BUN/Creatinine Ratio 11.4, Glucose 103, Calcium 8.8 03/20/23 06:11: POC Glucose 99 Micro: Microbiology 03/18/23 01:40 Blood Culture (Wb) - Anticubital Left Blood Culture - Preliminary No growth in 48 hours. 03/18/23 00:57 Blood Culture (Wb) - Anticubital Right Blood Culture - Preliminary No growth in 48 hours. 03/17/23 22:10 Urine, Clean Catch Urine Culture - Preliminary ESBL Escherichia coli 03/20/23 1139 <Electronically signed by Sen Guzman MD> Cosigner Signature (if applicable): CC: Dr. Hiral Rodriguez MD; Dr. Harpreet Viramontes MD; Dr. Sen Guzman MD; Dr. Ginger Lugo MD~ Signed [facility] Work Phone: [phone]) 980-651207-13-2023 Progress note Author [facility] March 19, 2023 1:59pm Note Date/Time March 19, 2023 9:[address] [facility] Medical Records Department [address] [place] [address] Progress Note - Hospitalist 03/19/23 0940 MR#: [id number] Acct: [id number] Name: ROMEL LOPES Rep #:[id number] : 1970 52 From: Artem Little PCP: Dr. Ginger Lugo MD Status:ADM I N Location: [place] [address] Reason for Visit Reason for Visit: Diagnoses Tubulo-interstitial nephritis, not specified as acute or chronic (03/18/23) Subjective Subjective Follow-up for acute bilateral pyelonephritis Objective Data Objective Data Vital Signs: Vital Signs Temp Pulse Resp BP Pulse Ox O2 Del Method O2 Flow Rate 99.4 F H 91 18 140/86 H 94 Nasal Cannula 2 03/19/23 09:07 03/19/23 09:14 03/19/23 09:07 03/19/23 09:07 03/19/23 09:07 03/19/23 09:07 03/19/23 09:07 Oxygen Flow Rate (L/min) 2 Oxygen Delivery Method Nasal Cannula Weight: 279 lb 8.738 oz Body Mass Index (BMI) 42.5 Intake & Output: Intake and Output for Last 24 Hours 03/17/23 03/18/23 03/19/23 23:59 23:59 23:59 Intake Total 5291.67 / 5531.67 1380 / 1380 Output Total 200 / 600 700 / 700 Balance 5091.67 / 4931.67 680 / 680 Lab / Micro Data 03/19/23 10:00 03/19/23 10:00 Labs: Laboratory Results - last 24 hr 03/18/23 10:31: POC Glucose 149 H 03/18/23 17:06: POC Glucose 96 03/18/23 21:13: POC Glucose 125 H 03/19/23 06:35: POC Glucose 90 Micro: Microbiology 03/17/23 19:29 Nasal Secretion SARS-CoV-2 Antigen (Rapid) - Final Physical Exam Narrative Seen and examined. Still has bilateral flank pain with radiation to anterior abdominal wall although better than yesterday. Had fever and chills last night. Tmax 101.1 Fahrenheit afternoon yesterday. Patient has headache sometimes dizziness and systemic symptoms of infection. No vomiting. Nausea resolved. Physical exam General: Alert, Oriented x3, Cooperative, morbid obesity BMI 42.5 kg/m?. HEENT: Atraumatic, PERRLA, EOMI, Normocephalic Oral: Oral mucosa moist. No Gingival or Mucosal Lesions/ Ulcerations Neck: Supple, No JVD, Negative Carotid Bruits Lungs: Air entry diminished in bilateral lung bases. No crepitation/rhonchi Cardiovascular: Regular rate, Regular Rhythm, Normal S1, Normal S2, No murmurs Abdomen: Bowel Sounds Present, Soft, Non Tender, Non-Distended : Bilateral renal angle tenderness right more than left. No suprapubic tenderness. Mild dysuria, voiding dark urine spontaneously. No hematuria. Extremities: Mild bilateral pitting edema, Capillary Refill Less than 3 Seconds Skin: No rashes, No breakdown Musculoskeletal: No Tenderness to Palpation of Joints or Extremities. ROM restricted. Neurological: Cranial nerves II-XII grossly intact, DTR 2+/4 and Symmetrical, Neuro grossly intact Psych/Mental Status: Flat affect. Assessment & Plan Assessment/Plan (1) Pyelonephritis: PLAN: Plan The patient is a 52 y/o M is being admitted for abdominal cramping, bilateral flank discomfort since, nausea, vomiting, back pain and fever and lab and imaging finding consistent with sepsis due to acute complicated pyelonephritis #1. Sepsis due to bilateral Acute Complicated Pyelonephritis: Patient is beingadmitted to PCU. The patient presented with sepsis with clinical indicators of tachycardia, high fever 103.3 Fahrenheit, leukocytosis due to bilateral pyelonephritis with cystitis with acute sepsis-related organ dysfunction as evidenced by GM on CKD 3. Blood cultures x2 and urine culture is ordered and are pending. Patient was well rested as per sepsis protocol. Patient is +5 L positive fluid balance. Patient on antibiotic IV ceftriaxone. IV fluid rate decreased to 50 mill per hour. 03/19: Patient is still spikes fever and systemic symptoms symptoms due to sepsis. Continue IV antibiotic blood work reviewed. Glucose is controlled. Sepsis is resolved. Prelim urine culture shows presumptive E. coli more than 100,000 colonies. Blood cultures are pending. Patient evaluated by urologist and feels no acute intervention needed. #2. Acute kidney injury on CKD stage IIIa most likely due to sepsis: Bladder scan showed 0 amount after voiding urine. Urologist is consulted. CT abdomen with IV contrast showed no renal stones or hydronephrosis but heterogeneous appearance of renal cortex with partial loss of corticomedullary junction. Trace perinephric stranding. 03/19: Serial improvement in creatinine from 1.88-1.32. #3. Hypokalemia: Admission K+ 3.4, magnesium level requested, supplementation given, repeat level was 3.9 today 03/19 hypokalemia resolved. #4. CAD: Status post PCI, continue patient home aspirin, Plavix, statin, metoprolol, not on SOCO inhibitor/ARB due to GM #5. Anxiety and depression: continue patient on Paxil regimen. #6. Diabetes mellitus type II: Hold oral home regimen, ADA diet, accu checks w/ISS. #7. Hypothyroidism: continue patient home levothyroxine regimen. #8. Hypertension: Continue home regimen including metoprolol, isosorbide cautiously given presentation although BP has been stable, PRN hydralazine. #9. Hyperlipidemia: continue patient home statin therapy. #10. Morbid Obesity: Weight loss and lifestyle changes encouraged. #11. Former tobacco use: Encourage continued tobacco cessation. #12. JOSIAH: BIPAP q HS. #13. DVT prophylaxis: Heparin. #14. CODE status: Patient HCPOA and living will is not in place. His who is present would be his decision maker if he was unable. Full code. Clinical Impression(s) from Imaging Studies Chest X-Ray 03/17/23 19:30 IMPRESSION: Normal x-ray examination of the chest. Abdomen/Pelvis CT 03/17/23 21:51 IMPRESSION: Heterogeneous appearing kidneys suspicious for acute pyelonephritis. No renal stones or obstructive uropathy. Charges/Coding Visit Charges Inpatient E&M: 57335 Subs Hosp L2 03/19/23 6460 <Electronically signed by Artem Gonzales MD> Cosigner Signature (if applicable): CC: ~ Signed [facility] Work Phone: 1(361) 804-663007-12-2023 Consult note Author Harpreet Viramontes [facility] March 18, 2023 3:24pm Note Date/Time March 18, 2023 3:24 pm [facility] Medical Records Department [address] [place] [id number] Consultation - Urology 03/18/23 1521 MR#: [id number] Acct: [id number] Name: ROMEL LOPES Rep #:[id number] : 1970 52 From: Harpreet Viramontes MD PCP: Dr. Ginger Lugo MD Status:ADM I N Location: [place] [address] Assessment & Plan Assessment/Plan (1) Pyelonephritis: PLAN: 52-year-old male with multiple medical problems multiple risk factors who presents with pyelonephritis fevers and chills a CAT scan that demonstrated stranding in both kidneys consistent with pyelonephritis urine cultures and blood cultures pending of course once these come back we can tailor his antibiotics towards the results from urological standpoint no intervention is necessary for now we will follow with you but if he has any questions or concerns give me a call. HPI Consult Data Date of Consult: 03/18/23 HPI Narrative HPI Narrative: 52-year-old male presented to the emergency room on March 17 with high fevers andchills CT scan was done that demonstrated what appears to be bilateral pyelonephritis I reviewed the CT scan which demonstrated bilateral pyelonephritis, no obstructing stones, no hydroureter, and once any masses or abscess formation. Patient has been here with antibiotics and has not been improving. Urine cultures pending blood cultures pending we are awaiting results of these. Continues to receive ceftriaxone. He denies any problems going to the bathroom or urinating or any frequency or urgency problems with hisprostate. He does have multiple medical problems as well. [facility] Medical History Anxiety Atherosclerosis of coronary artery of [place] heart without angina pectoris BiPAP (biphasic positive airway pressure) dependence Colitis Depression Depression Diabetes Elevated liver enzymes Essential hypertension Family history of heart disease Former smoker Hyperlipidemia Hypertension Hypertension Kidney stones Leukocytosis Myocardial infarct Nausea vomiting and diarrhea JOSIAH (obstructive sleep apnea) Sepsis Sleep apnea Type 2 diabetes mellitus Home Medications amlodipine 10 mg tablet 10 mg PO DAILY blood pressure 03/15/18 [History Last Taken 03/17/23] levothyroxine 125 mcg tablet 125 mcg PO DAILY thyroid 02/08/19 [History Last Taken 03/17/23] atorvastatin 40 mg tablet 40 mg PO QHS cholesterol 10/09/22 [History Last Taken Unknown] metformin 500 mg tablet 1,000 mg PO BID blood sugar 10/09/22 [History Last Taken 03/17/23] nystatin-triamcinolone topical cream 1 applic topical .COMPLEX penile rash 10/09/22 [History Last Taken Unknown] paroxetine HCl 40 mg tablet 40 mg PO DAILY depression 10/09/22 [History Last Taken Unknown] aspirin 81 mg tablet,delayed release (Adult Aspirin Regimen) 81 mg PO DAILY #90 tabs 10/13/22 [Rx Last Taken 03/17/23] metoprolol succinate 50 mg tablet,extended release 24 hr 100 mg PO DAILY HEART 10/13/22 [History Last Taken Unknown] nitroglycerin 0.4 mg sublingual tablet 0.4 mg sublingual Q5M PRN Cardiac/Chest Pain #14 tabs 10/24/22 [Rx Last Taken Unknown] clopidogrel 75 mg tablet See Rx Instructions .Route .COMPLEX #30 tabs 11/17/22 [Rx Last Taken 03/17/23] oxycodone-acetaminophen 5 mg-325 mg tablet 1 tab PO Q6H PRN PRN pain 5 days #20 TABLETS 01/31/23 [Rx Last Taken Unknown] isosorbide dinitrate 5 mg tablet 5 mg PO BID #60 tabs 02/13/23 [Rx Last Taken 03/17/23] ondansetron 4 mg disintegrating tablet 4 mg PO Q6H PRN nausea and vomiting #7 tabs 03/04/23 [Rx Last Taken Unknown] Allergy/AdvReac Type Severity Reaction Status Date / Time No Known Allergies Allergy Verified 03/04/23 21:55 Family History Father Myocardial infarction, Onset Age: 45 Mother Hypertension Mixed hyperlipidemia Grandmother CHF (congestive heart failure) Surgical History History of coronary artery stent placement (~10/24/22) History of tonsillectomy Status post excision of lipoma Social History household members: spouse Smoking Status: Former smoker alcohol intake: current details: occasional substance use type: does not use caffeine: Yes Type: carbonated beverages Number of servings: 6 Physical Exam Const alert and oriented x3 General Appearance: cooperative HEENT normocephalic, head/scalp atraumatic, EAC's normal and TM's normal bilaterally Eyes PERRL and EOMs intact bilaterally Pupil: sluggish Neck no lymphadenopathy, supple and no JVD General: trachea midline Lymph Lymphatic: no lymphadenopathy noted, lymphedema and lymphadenopathy Resp normal respiratory effort, normal air movement and clear to auscultation bilaterally Cardio regular rate, regular rhythm and peripheral pulses 2+ throughout GI soft to palpation, non-tender and non-distended Extremity normal capillary refill and no clubbing, cyanosis or edema General Extremity: no tenderness to palpation of joints or extremities Skin no rashes or lesions noted General Skin Exam: turgor normal Lesions: no lesions Rashes: no rashes Neuro CN's II-XII intact bilaterally Speech: speech normal Motor Exam: strength 5/5 throughout; Negative for general weakness Psych thought process normal, cooperative and affect normal Appearance: appropriate Lab / Micro Data 03/18/23 06:49 03/18/23 06:49 Labs: Laboratory Results - last 24 hr 03/17/23 22:04: WBC 18.7 H, RBC 4.83, Hgb 13.5, Hct 42.5, MCV 88.0, MCH 28.0, MCHC 31.8 L, RDW Std Deviation 47.5 H, RDW Coeff of Melva 14.6, Plt Count 219, MPV9.5, Immature Gran % (Auto) 0.700, Neut % (Auto) 84.4 H, Lymph % (Auto) 6.4 L, Towns % (Auto) 8.2, Eos % (Auto) 0.0, Baso % (Auto) 0.3, Absolute Neuts (auto) 15.8 H, Absolute Lymphs (auto) 1.20, Nucleated RBC % 0, Differential Comment SCANNED, Diff Path Review January, Sodium 131 L, Potassium 3.4 L, Chloride 95 L, Carbon Dioxide 31.0, Anion Gap 5, BUN 19 H, Creatinine 1.88 H, Estim Creat Clear Calc 44.47, Est GFR (MDRD) Af Amer 49 L, Est GFR (MDRD) Non-Af 40 L, BUN/Creatinine Ratio 10.1, Glucose 143 H, Calcium 9.1, Magnesium 2.3, Total Bilirubin 1.00, AST 45 H, ALT 58, Alkaline Phosphatase 109, Total Protein 8.8 H,Albumin 2.8 L, Globulin 6.0 H, Albumin/Globulin Ratio 0.5 L, Lipase 25 03/17/23 22:10: Urine Color Yellow, Urine Clarity Cloudy, Urine pH 5.0, Ur Specific [place] 1.020, Urine Protein 500 H, Urine Glucose (UA) Normal, Urine Ketones 15 H, Urine Occult Blood 250 H, Urine Nitrite Positive H, Urine Bilirubin 1 H, Urine Urobilinogen 4 H, Ur Leukocyte Esterase 100 H, Urine RBC > 100 SEEN, Urine WBC 25-50 SEEN, Ur Squamous Epith Cells 0-5 SEEN, Urine Bacteria 2+,Hyaline Casts 0-5 SEEN, Fine Granular Casts 5-10 SEEN, Urine Mucus 0 SEEN 03/18/23 01:40: PT 15.2 H, INR 1.2, Lactic Acid 1.2 03/18/23 06:34: POC Glucose 131 H 03/18/23 06:49: WBC 14.9 H, RBC 4.05 L, Hgb 11.3 L, Hct 36.1 L, MCV 89.1, MCH 27.9, MCHC 31.3 L, RDW Std Deviation 48.4 H, RDW Coeff of Melva 14.8 H, Plt Count 175, MPV 9.9, Immature Gran % (Auto) 0.700, Neut % (Auto) 79.3 H, Lymph % (Auto)8.9 L, Towns % (Auto) 10.8 H, Eos % (Auto) 0.0, Baso % (Auto) 0.3, Absolute Neuts(auto) 11.9 H, Absolute Lymphs (auto) 1.33, Nucleated RBC % 0, Diff Path Review May foll, Anisocytosis 1+, Sodium 135 L, Potassium 3.9, Chloride 102, Carbon Dioxide 29.0, Anion Gap 4 L, BUN 15, Creatinine 1.43 H, Estim Creat Clear Calc 58.46, Est GFR (MDRD) Af Amer 67, Est GFR (MDRD) Non-Af 55 L, BUN/Creatinine Ratio 10.5, Glucose 133 H, Calcium 7.8 L, Total Bilirubin 0.80, AST 38 H, ALT 46, Alkaline Phosphatase 87, Total Protein 7.3, Albumin 2.3 L, Globulin 5.0 H, Albumin/Globulin Ratio 0.5 L 03/18/23 10:31: POC Glucose 149 H Micro: Microbiology 03/17/23 19:29 Nasal Secretion SARS-CoV-2 Antigen (Rapid) - Final Radiology Impression Chest X-Ray 03/17/23 19:30 IMPRESSION: Normal x-ray examination of the chest. Electronically Signed: Sven Johnson MD at 19:45 EDT , Abdomen/Pelvis CT 03/17/23 21:51 IMPRESSION: Heterogeneous appearing kidneys suspicious for acute pyelonephritis. No renal stones or obstructive uropathy. Electronically Signed: Danielle Sky MD at 23:11 EDT Reading Location ID and State: [id number] / Tel , Service support , 03/18/23 1524 <Electronically signed by Harpreet Viramontes MD> Cosigner Signature (if applicable): CC: Dr. Hiral Rodriguez MD; Dr. Harpreet Viramontes MD; Dr. Ginger Lugo MD~ Signed [facility] Work Phone: 1(774) 752-657407-12-2023 Progress note Author Artem Gonzales [facility] March 18, 2023 2:25pm Note Date/Time March 18, 2023 8:16 am [facility] Medical Records Department [address] [place] [address] Progress Note - Hospitalist 03/18/23 0807 MR#: [id number] Acct: [id number] Name: ROMEL LOPES Rep #:[id number] : 1970 52 From: Artem Little PCP: Dr. Ginger Lugo MD Status:ADM I N Location: [place] [address] Reason for Visit Reason for Visit: Diagnoses Tubulo-interstitial nephritis, not specified as acute or chronic (03/18/23) Follow-up for sepsis due to acute on chronic pyelonephritis Subjective Subjective Admitted with abdominal pain, nausea, vomiting and back pain and fever 100.7 Fahrenheit Objective Data Objective Data Vital Signs: Vital Signs Temp Pulse Resp BP Pulse Ox O2 Del Method O2 Flow Rate 98.5 F 103 H 16 126/73 H 95 Nasal Cannula 2 03/18/23 08:03 03/18/23 08:03 03/18/23 08:03 03/18/23 08:03 03/18/23 08:03 03/18/23 08:03 03/18/23 08:03 Oxygen Flow Rate (L/min) 2 Oxygen Delivery Method Nasal Cannula Weight: 279 lb 5.211 oz Body Mass Index (BMI) 42.5 Intake & Output: Intake and Output for Last 24 Hours 03/16/23 03/17/23 03/18/23 23:59 23:59 23:59 Intake Total 4550 / 4550 Output Total 200 / 200 Balance 4350 / 4350 Lab / Micro Data 03/18/23 06:49 03/18/23 06:49 Labs: Laboratory Results - last 24 hr 03/17/23 22:04: WBC 18.7 H, RBC 4.83, Hgb 13.5, Hct 42.5, MCV 88.0, MCH 28.0, MCHC 31.8 L, RDW Std Deviation 47.5 H, RDW Coeff of Melva 14.6, Plt Count 219, MPV9.5, Immature Gran % (Auto) 0.700, Neut % (Auto) 84.4 H, Lymph % (Auto) 6.4 L, Towns % (Auto) 8.2, Eos % (Auto) 0.0, Baso % (Auto) 0.3, Absolute Neuts (auto) 15.8 H, Absolute Lymphs (auto) 1.20, Nucleated RBC % 0, Differential Comment SCANNED, Diff Path Review January, Sodium 131 L, Potassium 3.4 L, Chloride 95 L, Carbon Dioxide 31.0, Anion Gap 5, BUN 19 H, Creatinine 1.88 H, Estim Creat Clear Calc 44.47, Est GFR (MDRD) Af Amer 49 L, Est GFR (MDRD) Non-Af 40 L, BUN/Creatinine Ratio 10.1, Glucose 143 H, Calcium 9.1, Magnesium 2.3, Total Bilirubin 1.00, AST 45 H, ALT 58, Alkaline Phosphatase 109, Total Protein 8.8 H, Albumin 2.8 L, Globulin 6.0 H, Albumin/Globulin Ratio 0.5 L, Lipase 25 03/17/23 22:10: Urine Color Yellow, Urine Clarity Cloudy, Urine pH 5.0, Ur Specific [place] 1.020, Urine Protein 500 H, Urine Glucose (UA) Normal, Urine Ketones 15 H, Urine Occult Blood 250 H, Urine Nitrite Positive H, Urine Bilirubin 1 H, Urine Urobilinogen 4 H, Ur Leukocyte Esterase 100 H, Urine RBC > 100 SEEN, Urine WBC 25-50 SEEN, Ur Squamous Epith Cells 0-5 SEEN, Urine Bacteria2+, Hyaline Casts 0-5 SEEN, Fine Granular Casts 5-10 SEEN, Urine Mucus 0 SEEN 03/18/23 01:40: PT 15.2 H, INR 1.2, Lactic Acid 1.2 03/18/23 06:34: POC Glucose 131 H 03/18/23 06:49: WBC 14.9 H, RBC 4.05 L, Hgb 11.3 L, Hct 36.1 L, MCV 89.1, MCH 27.9, MCHC 31.3 L, RDW Std Deviation 48.4 H, RDW Coeff of Melva 14.8 H, Plt Count 175, MPV 9.9, Immature Gran % (Auto) 0.700, Neut % (Auto) 79.3 H, Lymph % (Auto)8.9 L, Towns % (Auto) 10.8 H, Eos % (Auto) 0.0, Baso % (Auto) 0.3, Absolute Neuts(auto) 11.9 H, Absolute Lymphs (auto) 1.33, Nucleated RBC % 0, Diff Path Review May foll, Anisocytosis 1+, Sodium 135 L, Potassium 3.9, Chloride 102, Carbon Dioxide 29.0, Anion Gap 4 L, BUN 15, Creatinine 1.43 H, Estim Creat Clear Calc 58.46, Est GFR (MDRD) Af Amer 67, Est GFR (MDRD) Non-Af 55 L, BUN/Creatinine Ratio 10.5, Glucose 133 H, Calcium 7.8 L, Total Bilirubin 0.80, AST 38 H, ALT 46, Alkaline Phosphatase 87, Total Protein 7.3, Albumin 2.3 L, Globulin 5.0 H, Albumin/Globulin Ratio 0.5 L Micro: Microbiology 03/17/23 19:29 Nasal Secretion SARS-CoV-2 Antigen (Rapid) - Final Radiography Diagnostic Testing: Radiology Impression Chest X-Ray 03/17/23 19:30 IMPRESSION: Normal x-ray examination of the chest. Electronically Signed: Sven Johnson MD at 19:45 EDT , Abdomen/Pelvis CT 03/17/23 21:51 IMPRESSION: Heterogeneous appearing kidneys suspicious for acute pyelonephritis. No renal stones or obstructive uropathy. Electronically Signed: Danielle Sky MD at 23:11 EDT Reading Location ID and State: [id number] / Tel , Service support , Physical Exam Narrative Seen and examined. Talked to the patient's near the bedside. Complain of bilateral flank pain with radiation to anterior abdominal wall Physical exam General: Alert, Oriented x3, Cooperative, morbid obesity BMI 42.5 kg/m?. HEENT: Atraumatic, PERRLA, EOMI, Normocephalic Oral: No Gingival or Mucosal Lesions/ Ulcerations Neck: Supple, No JVD, Negative Carotid Bruits Lungs: Air entry diminished in bilateral lung bases. No crepitation/rhonchi Cardiovascular: Regular rate, Regular Rhythm, Normal S1, Normal S2, No murmurs Abdomen: Bowel Sounds Present, Soft, Non Tender, Non-Distended : Bilateral renal angle tenderness right more than left. Mild suprapubic tenderness. Dysuria present. Increased frequency but denies urgency. Extremities: Mild bilateral pitting edema, Capillary Refill Less than 3 Seconds Skin: No rashes, No breakdown Musculoskeletal: No Tenderness to Palpation of Joints or Extremities. ROM restricted. Neurological: Cranial nerves II-XII grossly intact, DTR 2+/4 and Symmetrical, Neuro grossly intact Psych/Mental Status: Flat affect. Assessment & Plan Assessment/Plan (1) Pyelonephritis: PLAN: Plan The patient is a 52 y/o M is being admitted for abdominal cramping, bilateral flank discomfort since, nausea, vomiting, back pain and fever and lab and imaging finding consistent with sepsis due to acute complicated pyelonephritis #1. Sepsis due to bilateral Acute Complicated Pyelonephritis: Patient is beingadmitted to PCU. The patient presented with sepsis with clinical indicators of tachycardia, high fever 103.3 Fahrenheit, leukocytosis due to bilateral pyelonephritis with cystitis with acute sepsis-related organ dysfunction as evidenced by GM on CKD 3. Blood cultures x2 and urine culture is ordered and are pending. Patient was well rested as per sepsis protocol. Patient is +5 L positive fluid balance. Patient on antibiotic IV ceftriaxone. IV fluid rate decreased to 50 mill per hour. #2. Acute kidney injury on CKD stage IIIa most likely due to sepsis: Bladder scan showed 0 amount after voiding urine. Urologist is consulted. CT abdomen with IV contrast showed no renal stones or hydronephrosis but heterogeneous appearance of renal cortex with partial loss of corticomedullary junction. Trace perinephric stranding. #3. Hypokalemia: Admission K+ 3.4, magnesium level requested, supplementation given, repeat level was 3.9 today #4. CAD: Status post PCI, continue patient home aspirin, Plavix, statin, metoprolol, not on SOCO inhibitor/ARB due to GM #5. Anxiety and depression: continue patient on Paxil regimen. #6. Diabetes mellitus type II: Hold oral home regimen, ADA diet, accu checks w/ISS. #7. Hypothyroidism: continue patient home levothyroxine regimen. #8. Hypertension: Continue home regimen including metoprolol, isosorbide cautiously given presentation although BP has been stable, PRN hydralazine. #9. Hyperlipidemia: continue patient home statin therapy. #10. Morbid Obesity: Weight loss and lifestyle changes encouraged. #11. Former tobacco use: Encourage continued tobacco cessation. #12. JOSIAH: BIPAP q HS. #13. DVT prophylaxis: Heparin. #14. CODE status: Patient HCPOA and living will is not in place. His who is present would be his decision maker if he was unable. Full code. Clinical Impression(s) from Imaging Studies Chest X-Ray 03/17/23 19:30 IMPRESSION: Normal x-ray examination of the chest. Abdomen/Pelvis CT 03/17/23 21:51 IMPRESSION: Heterogeneous appearing kidneys suspicious for acute pyelonephritis. No renal stones or obstructive uropathy. Charges/Coding Visit Charges Inpatient E&M: 54035 Subs Hosp L2 03/18/23 7777 <Electronically signed by Artem Gonzales MD> Cosigner Signature (if applicable): CC: ~ Signed [facility] Work Phone: 1(776) 416-684407-12-2023 History and physical note Author Hiral Rodriguez [facility] March 18, 2023 1:48am Note Date/Time March 18, 2023 12:[address] [facility] Medical Records Department [address] [place] [id number] H&P Exam - Hospitalist 03/18/23 0033 MR#: [id number] Acct: [id number] Name: ROMEL LOPES Rep #:[id number] : 1970 52 From: Hiral Rodriguez MD PCP: Dr. Ginger Lugo MD Status:ADM I N Location: [place] [address] HPI - General General Date of Admission: 03/18/23 Date of Service: 03/18/23 Chief Complaint: Abdominal pain, flank pain, N/V HPI Narrative The patient is a 52 y/o M w/ PMHx: Anxiety and Depression, Morbid Obesity, Hypothyroidism, CAD status post PCI, HTN, HLD, JOSIAH on BIPAP, Depression and Anxiety, Former tobacco use, Diabetes mellitus type II who presents to the [facility] ED on 03/18/23 with history of recent persistent issues including initial ED evaluation 01/31/23 with at that time diagnosis of acute hydronephrosis with urinary obstruction due to ureteral calculus with discharge to home with referral to urology with Dr. Viramontes with noted renal insufficiency at that time with most recent reevaluation 03/04/2023 with onset of significant malaise as well as nausea and emesis and subjective fever with abdominal discomfort with unremarkable reported work-up at that time discharged to home on Zofran however he now represents secondary to persistent flank discomfort bilaterally, abdominal pain, nausea and emesis as well as fever at urgent care earlier in theday with reported temperature 100.7 although upon ED initial arrival temperaturereported 98.4 with history of very mild transient dysuria in addition to recent loose stools however this is since resolved and given urgent care referral prompted ED evaluation. Work-up in the ED included CBC with WBC 18.7, [id number], platelet 219 with left shift, CMP with sodium 131, potassium 3.4, [id number], BUN/creat 19/1.88, glucose 143, hepatic profile not marked appearing, urinalysis significantly concerning for UTI, urine culture pending per ED, rapidSARS COVID antigen negative, CT abdomen and pelvis with heterogeneous appearing kidney suspicious for acute pyelonephritis with no renal stone or obstructive uropathy, chest x-ray with no acute cardiopulmonary findings. In the ED patientministered IV Rocephin, morphine 4 mg IV x1, Zofran 4 mg IV x1 as well as 2 L normal saline. Blood culture x2 obtained following antibiotic administration ofnote. Patient lactic acid has been requested but is pending upon evaluation of patient. [facility] Medical History Anxiety Atherosclerosis of coronary artery of [place] heart without angina pectoris BiPAP (biphasic positive airway pressure) dependence Colitis Depression Depression Diabetes Elevated liver enzymes Essential hypertension Family history of heart disease Former smoker Hyperlipidemia Hypertension Hypertension Kidney stones Leukocytosis Myocardial infarct Nausea vomiting and diarrhea JOSIAH (obstructive sleep apnea) Sepsis Sleep apnea Type 2 diabetes mellitus Home Medications amlodipine 10 mg tablet 10 mg PO DAILY blood pressure 03/15/18 [History Last Taken 12/18/20] levothyroxine 125 mcg tablet 125 mcg PO DAILY thyroid 02/08/19 [History Last Taken 12/18/20] atorvastatin 40 mg tablet 40 mg PO QHS 10/09/22 [History Last Taken Unknown] metformin 500 mg tablet 1,000 mg PO BID 10/09/22 [History Last Taken Unknown] nystatin-triamcinolone topical cream 1 applic topical .COMPLEX 10/09/22 [History Last Taken Unknown] paroxetine HCl 40 mg tablet 40 mg PO DAILY 10/09/22 [History Last Taken Unknown] aspirin 81 mg tablet,delayed release (Adult Aspirin Regimen) 81 mg PO DAILY #90 tabs 10/13/22 [Rx Last Taken Unknown] metoprolol succinate 50 mg tablet,extended release 24 hr 100 mg PO DAILY HEART 10/13/22 [History Last Taken Unknown] nitroglycerin 0.4 mg sublingual tablet 0.4 mg sublingual Q5M PRN Cardiac/Chest Pain #14 tabs 10/24/22 [Rx Last Taken Unknown] clopidogrel 75 mg tablet See Rx Instructions .Route .COMPLEX #30 tabs 11/17/22 [Rx Last Taken Unknown] oxycodone-acetaminophen 5 mg-325 mg tablet 1 tab PO Q6H PRN PRN pain 5 days #20 TABLETS 01/31/23 [Rx Last Taken Unknown] isosorbide dinitrate 5 mg tablet 5 mg PO BID #60 tabs 02/13/23 [Rx Last Taken Unknown] ondansetron 4 mg disintegrating tablet 4 mg PO Q6H PRN nausea and vomiting #7 tabs 03/04/23 [Rx Last Taken Unknown] Allergy/AdvReac Type Severity Reaction Status Date / Time No Known Allergies Allergy Verified 03/04/23 21:55 Family History Father Myocardial infarction, Onset Age: 45 Mother Hypertension Mixed hyperlipidemia Grandmother CHF (congestive heart failure) Surgical History History of coronary artery stent placement (~10/24/22) History of tonsillectomy Status post excision of lipoma Social History household members: spouse Smoking Status: Former smoker alcohol intake: current details: occasional substance use type: does not use caffeine: Yes Type: carbonated beverages Number of servings: 6 ROS ROS Narrative Admission Review of Systems: CONSTITUTIONAL: No weight loss, + fever, chills, weakness or fatigue. HEENT: Eyes: No visual loss, blurred vision, double vision or yellow sclerae. Ears, Nose, Throat: No hearing loss, sneezing, congestion, runny nose or sore throat. SKIN: No rash or itching, lesions, wounds. CARDIOVASCULAR: No chest pain, chest pressure or chest discomfort, palpitations,edema, orthopnea, syncopal events. RESPIRATORY: No shortness of breath, cough or sputum, wheezing, hemoptysis. GASTROINTESTINAL: + anorexia, nausea, vomiting, diarrhea, abdominal pain, No melena, BRBPR. GENITOURINARY: + Dysuria, frequency, sensation retaining, BL flank discomfort. NEUROLOGICAL: No headache, dizziness, syncope, paralysis, ataxia, numbness or tingling in the extremities, focal weakness, change in bowel or bladder control,seizure. MUSCULOSKELETAL: + muscle, back pain, joint pain or stiffness. HEMATOLOGIC: + Easy bleeding or bruising. LYMPHATICS: No enlarged nodes. No history of splenectomy. PSYCHIATRIC: No history of depression or anxiety. ENDOCRINOLOGIC: No reports of sweating, cold or heat intolerance. No polyuria orpolydipsia. ALLERGIES: No history of asthma, hives, eczema or rhinitis. Vital Signs Vital Signs Vital Signs: 03/17/23 19:23 03/17/23 20:40 Temperature 98.4 F Temperature Source Temporal Pulse Rate 127 H Respiratory Rate 20 H Respiratory Effort Normal Non-Labored Blood Pressure 152/82 H Blood Pressure Mean 105 Pulse Ox 95 Oxygen Delivery Method Room Air Weight Weight: 281 lb 14.4 oz Body Mass Index (BMI) 42.8 Physical Exam Narrative Physical Examination: General: Awake, alert, oriented x 3 and cooperative, laying in the ED bed, fatigued and ill-appearing. Skin: Normal color, normal turgor, no icterus, no cyanosis. HEENT: AT/NC, EOMI, PERRLA, dry MM, no carotid bruits or JVD noted; however, thickened neck makes evaluation difficult. Lungs: Diminished, greater bases, mildly increased respiratory rate but no distress, no rales, ronchi or wheezing. Heart: Tachycardic with regular rhythm; no gallop, rub audible. Abdomen: Soft, morbidly obese, mild bilateral discomfort especially bilateral lower quadrants with no rebound or guarding, flank tenderness with even gentle palpation, difficult to assess distention and HSM given habitus, distant bowel sounds. Extremities: No cyanosis, no clubbing, chronic nonpitting edema distally to lower extremities. Neurological: Patient awake, alert, oriented as noted, cognitive function intact; pupils equally reactive to light and accommodation, cranial nerves II-XII grossly normal, moving all 4 extremities, no focal deficits, strength severely globally decreased secondary to acute presentation. Psychiatric: Affect appears fatigued, flat, ill-appearing, no acute evidence of depressive or anxiety feelings. Results Lab / Micro Data 03/17/23 22:04 03/17/23 22:04 Labs: Laboratory Results - last 24 hr 03/17/23 22:04: WBC 18.7 H, RBC 4.83, Hgb 13.5, Hct 42.5, MCV 88.0, MCH 28.0, MCHC 31.8 L, RDW Std Deviation 47.5 H, RDW Coeff of Melva 14.6, Plt Count 219, MPV9.5, Immature Gran % (Auto) 0.700, Neut % (Auto) 84.4 H, Lymph % (Auto) 6.4 L, Towns % (Auto) 8.2, Eos % (Auto) 0.0, Baso % (Auto) 0.3, Absolute Neuts (auto) 15.8 H, Absolute Lymphs (auto) 1.20, Nucleated RBC % 0, Differential Comment SCANNED, Diff Path Review January, Sodium 131 L, Potassium 3.4 L, Chloride 95 L, Carbon Dioxide 31.0, Anion Gap 5, BUN 19 H, Creatinine 1.88 H, Estim Creat Clear Calc 44.47, Est GFR (MDRD) Af Amer 49 L, Est GFR (MDRD) Non-Af 40 L, BUN/Creatinine Ratio 10.1, Glucose 143 H, Calcium 9.1, Total Bilirubin 1.00, AST45 H, ALT 58, Alkaline Phosphatase 109, Total Protein 8.8 H, Albumin 2.8 L, Globulin 6.0 H, Albumin/Globulin Ratio 0.5 L, Lipase 25 03/17/23 22:10: Urine Color Yellow, Urine Clarity Cloudy, Urine pH 5.0, Ur Specific [place] 1.020, Urine Protein 500 H, Urine Glucose (UA) Normal, Urine Ketones 15 H, Urine Occult Blood 250 H, Urine Nitrite Positive H, Urine Bilirubin 1 H, Urine Urobilinogen 4 H, Ur Leukocyte Esterase 100 H, Urine RBC > 100 SEEN, Urine WBC 25-50 SEEN, Ur Squamous Epith Cells 0-5 SEEN, Urine Bacteria2+, Hyaline Casts 0-5 SEEN, Fine Granular Casts 5-10 SEEN, Urine Mucus 0 SEEN Micro: Microbiology 03/17/23 19:29 Nasal Secretion SARS-CoV-2 Antigen (Rapid) - Final Radiology Impression Chest X-Ray 03/17/23 19:30 IMPRESSION: Normal x-ray examination of the chest. Electronically Signed: Sven Johnson MD at 19:45 EDT , Abdomen/Pelvis CT 03/17/23 21:51 IMPRESSION: Heterogeneous appearing kidneys suspicious for acute pyelonephritis. No renal stones or obstructive uropathy. Electronically Signed: Danielle Sky MD at 23:11 EDT Reading Location ID and State: [id number] / Tel , Service support , Assessment & Plan Assessment/Plan (1) Pyelonephritis: PLAN: Plan The patient is a 52 y/o M w/ PMHx: Anxiety and Depression, Morbid Obesity, Hypothyroidism, CAD status post PCI, HTN, HLD, JOSIAH on BIPAP, Depression and Anxiety, Former tobacco use, Diabetes mellitus type II who presents to the [facility] ED on 03/18/23 with history of recent persistent issues including initial ED evaluation 01/31/23 with at that time diagnosis of acute hydronephrosis with urinary obstruction due to ureteral calculus with discharge to home with referral to urology with Dr. Viramontes with noted renal insufficiency at that time with most recent reevaluation 03/04/2023 with onset of significant malaise as well as nausea and emesis and subjective fever with abdominal discomfort with unremarkable reported work-up at that time discharged to home on Zofran however he now represents secondary to persistent flank discomfort bilaterally, abdominal pain, nausea and emesis as well as fever. #1. Acute Sepsis (Tachypnea, tachycardia, known source, GM, still awaiting lactic acid level) secondary to Acute Complicated Pyelonephritis: Will admit to PCU to be cautious as patient still mildly tachycardic, UA upon ED evaluation remarkable, pending UCx, continue IVFs, monitor I/Os, continue IV Rocephin w/ transition as able pending sensitivities and speciation. Bld cx x 2 obtained in the ED although after antibiotic initiation. Still awaiting lactic acid. Will administer an additional 1 L IV fluids and continue with maintenance IV fluids. No obvious evidence of obstructing stone on film but if necessary may consider involving urology although from discussion with patient and family he never did follow-up unfortunately outpatient. #2. Acute kidney injury: Secondary to acute presentation #1. Admission BUN/Cr 19/1.88, prior baseline creatinine noted to be 0.8-1.2, noted 01/31/23 with acutehydronephrosis with urinary obstruction due to ureteral calculus w/ Cr at that time 1.3. Will hydrate, hold nephrotoxic medications and repeat chemistry in AM.If no improvement would plan FeNa. #3. Hypokalemia: Admission K+ 3.4, magnesium level requested, supplementation given, repeat level in AM. #4. CAD: Status post PCI, we will continue patient home aspirin, Plavix, statin, metoprolol, not on SOCO inhibitor/ARB however regardless given GM would defer. #5. Anxiety and depression: We will continue patient on Paxil regimen however will monitor renal function if worsens low threshold to alter or hold. #6. Diabetes mellitus type II: Hold oral home regimen, ADA diet, accu checks w/ISS. #7. Hypothyroidism: We will continue patient home levothyroxine regimen. #8. Hypertension: Continue home regimen including metoprolol, isosorbide cautiously given presentation although BP has been stable, PRN hydralazine. #9. Hyperlipidemia: We will continue patient home statin therapy. #10. Morbid Obesity: Weight loss and lifestyle changes encouraged. #11. Former tobacco use: Encourage continued tobacco cessation. #12. JOSIAH: BIPAP q HS. #13. DVT prophylaxis: Heparin. #14. CODE status: Patient HCPOA and living will is not in place. His who is present would be his decision maker if he was unable. Full code. Admission Evaluation Time spent evaluating chart, patient history, patient evaluation, care planning and discussion with specialists: 75 minutes. Charges/Coding Visit Charges Inpatient E&M: 36759 Init Hosp L3 03/18/23 0148 <Electronically signed by Hiral Rodriguez MD> Cosigner Signature (if applicable): CC: Dr. Hiral Rodriguez MD; Dr. Ginger Lugo MD~ Signed [facility] Work Phone: 1(581) 825-461207-12-2023 Discharge summary Author Porter Banuelos [facility] March 18, 2023 12:31am Note Date/Time March 17, 2023 11:[address] [facility] Medical Records Department [address] [place] [address] Emergency Department Summary 03/17/23 MR#: [id number] Acct: [id number] Name: ROMEL LOPES Rep #:[id number] : 1970 52 From: Porter Banuelos DO PCP: Dr. Ginger Lugo MD Status:ADM I N Location: [place] [address] HPI History of Present Illness Chief Complaint: General Illness Narrative Narrative: 52-year-old male presenting with abdominal pain, nausea and vomiting, back pain. He states this has been ongoing issue for him. He was told he had a fever to the urgent care today. He was told it was 100.7. When he arrived back here histemperature was 98.4. Patient did state that he had some dysuria at 1 point. He also had diarrhea which is resolved. He still having abdominal cramping and states he has not had a bowel movement. [facility] Medical History Anxiety Atherosclerosis of coronary artery of [place] heart without angina pectoris BiPAP (biphasic positive airway pressure) dependence Colitis Depression Depression Diabetes Elevated liver enzymes Essential hypertension Family history of heart disease Former smoker Hyperlipidemia Hypertension Hypertension Kidney stones Leukocytosis Myocardial infarct Nausea vomiting and diarrhea JOSIAH (obstructive sleep apnea) Sepsis Sleep apnea Type 2 diabetes mellitus Home Medications amlodipine 10 mg tablet 10 mg PO DAILY blood pressure 03/15/18 [History Last Taken 04/13/21] levothyroxine 125 mcg tablet 125 mcg PO DAILY thyroid 02/08/19 [History Last Taken 12/18/20] atorvastatin 40 mg tablet 40 mg PO QHS 10/09/22 [History Last Taken Unknown] metformin 500 mg tablet 1,000 mg PO BID 10/09/22 [History Last Taken Unknown] nystatin-triamcinolone topical cream 1 applic topical .COMPLEX 10/09/22 [History Last Taken Unknown] paroxetine HCl 40 mg tablet 40 mg PO DAILY 10/09/22 [History Last Taken Unknown] aspirin 81 mg tablet,delayed release (Adult Aspirin Regimen) 81 mg PO DAILY #90 tabs 10/13/22 [Rx Last Taken Unknown] metoprolol succinate 50 mg tablet,extended release 24 hr 100 mg PO DAILY HEART 10/13/22 [History Last Taken Unknown] nitroglycerin 0.4 mg sublingual tablet 0.4 mg sublingual Q5M PRN Cardiac/Chest Pain #14 tabs 10/24/22 [Rx Last Taken Unknown] clopidogrel 75 mg tablet See Rx Instructions .Route .COMPLEX #30 tabs 11/17/22 [Rx Last Taken Unknown] oxycodone-acetaminophen 5 mg-325 mg tablet 1 tab PO Q6H PRN PRN pain 5 days #20 TABLETS 01/31/23 [Rx Last Taken Unknown] isosorbide dinitrate 5 mg tablet 5 mg PO BID #60 tabs 02/13/23 [Rx Last Taken Unknown] ondansetron 4 mg disintegrating tablet 4 mg PO Q6H PRN nausea and vomiting #7 tabs 03/04/23 [Rx Last Taken Unknown] Allergy/AdvReac Type Severity Reaction Status Date / Time No Known Allergies Allergy Verified 03/04/23 21:55 Family History Father Myocardial infarction, Onset Age: 45 Mother Hypertension Mixed hyperlipidemia Grandmother CHF (congestive heart failure) Surgical History History of coronary artery stent placement (~10/24/22) History of tonsillectomy Status post excision of lipoma Social History household members: spouse Smoking Status: Former smoker alcohol intake: current details: occasional substance use type: does not use caffeine: Yes Type: carbonated beverages Number of servings: 6 ROS ROS ED Constitutional Constitutional ED: Denies chills, fever(s) or sweats Eyes Eyes: Denies blurry vision or change in vision ENT ENT ED: Denies ear pain or sore throat Cardiovascular Cardiovascular: Denies chest pain, palpitations or racing heartbeat Respiratory/Chest Respiratory/Chest: Reports cough; Denies sputum Gastrointestinal Gastrointestinal: Reports abdominal pain, diarrhea, nausea and vomiting; Denies constipation Genitourinary Genitourinary ED: Reports dysuria; Denies hematuria or urinary frequency Musculoskeletal Musculoskeletal: Reports back pain; Denies arthralgias, myalgias or neck pain Integumentary Denies abscess, Abrasions or rash Neurologic Neurologic: Denies headache(s), paresthesias or weakness Psychiatric Psychiatric: Denies anxiety, depression, suicidal ideation or suicidal thoughts Endocrine Endocrinology: Denies polydipsia or polyuria EXAM Physical Exam Const Vital Signs: 03/17/23 19:23 03/17/23 20:40 Temperature 98.4 F Temperature Source Temporal Pulse Rate 127 H Respiratory Rate 20 H Respiratory Effort Normal Non-Labored Blood Pressure 152/82 H Blood Pressure Mean 105 Pulse Ox 95 Oxygen Delivery Method Room Air Positive well nourished and obese General Appearance ED: NAD Nutritional Appearance: obese HEENT Reports moist mucous membranes Eyes PERRL and EOMs intact bilaterally Resp normal respiratory effort and clear to auscultation bilaterally Cardio regular rate and regular rhythm GI normal to inspection, nondistended, normoactive bowel sounds Back/Spine General Back: CVA tenderness bilateral Neuro oriented x3 and CN's II-XII intact bilaterally Sensorium / Orientation: alert Motor Exam: strength 5/5 throughout and general weakness Psych mental status grossly normal Skin no rashes or lesions noted and no wounds MDM MDM MDM Narrative Medical decision making narrative: Patient presenting with nausea/vomiting which has been ongoing for days. He wasseen in the ER recently for this and states he did get a little bit better but then got worse again. He has had some constipation and diarrhea. He has not a fever at home but states he was told he had a fever at urgent care today. On examination he has bilateral CVA tenderness and no real abdominal pain on examination. Patient tachycardic. Differential includes gastritis, pancreatitis, colitis, diverticulitis, UTI, pyelonephritis, dehydration, electrolyte abnormalities. CBC was obtained to assess white blood cell count, hemoglobin, platelets. CMP was obtained to assess liver function, renal function, electrolytes, glucose, anion gap. Lipase to assess for pancreatitis. Urinalysis to assess for UTI. I did obtain a CT abdomen pelvis with IV contrastas well. Patient initially given a liter of fluids, morphine, Zofran. CBC shows a leukocytosis of 18,000 and with a left shift. Hemoglobin and hematocritare stable. Platelets are normal. LFTs unremarkable. Creatinine is elevated today at 1.88 so I did give him another liter of normal saline. It does look danilo his creatinine has been trending upward for the last couple of months. Urinalysis with positive nitrites, 100 leukocyte esterase, greater than 100 RBCs, 25-50 white blood cells with 0-5 squamous epithelial cells and 2+ bacteria. CT of the abdomen pelvis was obtained and shows concern for bilateralpyelonephritis. Given the patient has an elevated white blood cell count, pyelonephritis and meet SIRS criteria I did obtain a lactic acid and coagulationstudies, patient pancultured. He is given Rocephin 1 g IV and will talk to the hospitalist for admission. Because the patient was tachycardic I did obtain an EKG to make sure it was normal sinus rhythm. EKG on my interpretation shows sinus tachycardia at a heart rate of [address] elevation or depression. Iobtained a chest x-ray to rule out pneumonia given his work-up for sepsis. Chest x-ray is negative for acute process on my interpretation. Impression: 1. Bilateral pyelonephritis 2. Leukocytosis 3. Tachycardia 4. Nausea/vomiting 5. GM Lab Data Attestation: I reviewed the patient's lab results. Labs: Laboratory Results - last 24 hr 03/17/23 03/17/23 22:04 22:10 WBC 18.7 H RBC 4.83 Hgb 13.5 Hct 42.5 MCV 88.0 MCH 28.0 MCHC 31.8 L RDW Std Deviation 47.5 H RDW Coeff of Melva 14.6 Plt Count 219 MPV 9.5 Immature Gran % (Auto) 0.700 Neut % (Auto) 84.4 H Lymph % (Auto) 6.4 L Towns % (Auto) 8.2 Eos % (Auto) 0.0 Baso % (Auto) 0.3 Absolute Neuts (auto) 15.8 H Absolute Lymphs (auto) 1.20 Nucleated RBC % 0 Differential Comment SCANNED Diff Path Review January Sodium 131 L Potassium 3.4 L Chloride 95 L Carbon Dioxide 31.0 Anion Gap 5 BUN 19 H Creatinine 1.88 H Estim Creat Clear Calc 44.47 Est GFR (MDRD) Af Amer 49 L Est GFR (MDRD) Non-Af 40 L BUN/Creatinine Ratio 10.1 Glucose 143 H Calcium 9.1 Total Bilirubin 1.00 AST 45 H ALT 58 Alkaline Phosphatase 109 Total Protein 8.8 H Albumin 2.8 L Globulin 6.0 H Albumin/Globulin Ratio 0.5 L Lipase 25 Urine Color Yellow Urine Clarity Cloudy Urine pH 5.0 Ur Specific [place] 1.020 Urine Protein 500 H Urine Glucose (UA) Normal Urine Ketones 15 H Urine Occult Blood 250 H Urine Nitrite Positive H Urine Bilirubin 1 H Urine Urobilinogen 4 H Ur Leukocyte Esterase 100 H Urine RBC > 100 SEEN Urine WBC 25-50 SEEN Ur Squamous Epith Cells 0-5 SEEN Urine Bacteria 2+ Hyaline Casts 0-5 SEEN Fine Granular Casts 5-10 SEEN Urine Mucus 0 SEEN Radiography Diagnostic Testing: Clinical Impression(s) from Imaging Studies Chest X-Ray 03/17/23 19:30 IMPRESSION: Normal x-ray examination of the chest. Electronically Signed: Sven Johnson MD at 19:45 EDT , Abdomen/Pelvis CT 03/17/23 21:51 IMPRESSION: Heterogeneous appearing kidneys suspicious for acute pyelonephritis. No renal stones or obstructive uropathy. Electronically Signed: Danielle Sky MD at 23:11 EDT Reading Location ID and State: [id number] / Tel , Service support , Discharge Plan Triage Chief Complaint: General Illness ED Provider: Porter Banuelos Dx/Rx/DC Orders Prescriptions: No Action metoprolol succinate 50 mg tablet extended release 24 hr 100 mg PO DAILY aspirin [Adult Aspirin Regimen] 81 mg tablet,delayed release (DR/EC) 81 mg PO DAILY Qty: 90 2RF atorvastatin 40 mg tablet 40 mg PO QHS paroxetine HCl 40 mg tablet 40 mg PO DAILY nystatin-triamcinolone Cream 1 applic topical .COMPLEX Rx Instructions: 1 applic topically apply sparingly to groin and penile rash twice daily for irritation/infection up to 2 weeks and then take a week off; metformin 500 mg tablet 1,000 mg PO BID Hold Instructions: Resume on 10/26/22. amlodipine 10 MG tablet 10 mg PO DAILY Patient Comments: TAKE 1 TABLET BY MOUTH EVERY DAY levothyroxine 125 MCG tablet 125 mcg PO DAILY Patient Comments: TAKE 1 TABLET EVERY DAY nitroglycerin 0.4 mg Tablet, Sublingual 0.4 mg sublingual Q5M PRN (Reason: Cardiac/Chest Pain) Qty: 14 5RF oxycodone-acetaminophen [oxycodone-acetaminophen] 5-325 mg tablet 1 tab PO Q6H PRN PRN (Reason: pain) 5 Days Qty: 20 0RF Hold Instructions: NO LONGER TAKING ondansetron 4 mg tablet,disintegrating 4 mg PO Q6H PRN (Reason: nausea and vomiting) Qty: 7 0RF clopidogrel 75 mg tablet See Rx Instructions .ROUTE .COMPLEX Qty: 30 11RF Dose Instruction: TAKE 1 TABLET BY MOUTH EVERY DAY Rx Instructions: TAKE 1 TABLET BY MOUTH EVERY DAY isosorbide dinitrate 5 mg tablet 5 mg PO BID Qty: 60 3RF Rx Instructions: allow nitrate-free interval of 12-14 hrs per 24-hr period Primary Care Provider: Ginger Lugo Referrals: Ginger Lugo MD [Primary Care Provider] - What to do if you have Problems For any increased pain, shortness of breath, bleeding, nausea or vomiting, chestpain, or any unexpected problems, contact your Primary Care Provider. Call [facility] ([phone]) or report to the closest Emergency Room. Call 911 if necessary. 03/18/23 0031 <Electronically signed by Porter Banuelos DO> Cosigner Signature (if applicable): CC: Dr. Ginger Lugo MD ~ Signed [facility] Work Phone: 1(345) 245-881007-11-2023 Miscellaneous Notes* Telephone Encounter - Hanny Mcneal RN - 03/17/2023 5:22 PM EDT spouse returned call and appt noteds updated * Telephone Encounter - Larissa Rain LPN - 03/17/2023 4:10 PM EDT Patient scheduled appt for this evening via [employer] and only notes state sick. Requesting patientto return call or message via [employer] more detailed report of complaint. [facility] Discharge summary Author Porter Banuelos [facility] March 18, 2023 12:31am Note Date/Time March 17, 2023 11:5 4pm [facility] Medical Records Department [address] [place] [address] Emergency Department Summary 03/17/23 MR#: [id number] Acct: [id number] Name: ROMEL LOPES Rep #:[id number] : 1970 52 From: Porter Banuelos DO PCP: Dr. Ginger Lugo MD Status:ADM I N Location: [place] [address] HPI History of Present Illness Chief Complaint: General Illness Narrative Narrative: 52-year-old male presenting with abdominal pain, nausea and vomiting, back pain. He states this has been ongoing issue for him. He was told he had a fever to the urgent care today. He was told it was 100.7. When he arrived back here histemperature was 98.4. Patient did state that he had some dysuria at 1 point. He also had diarrhea which is resolved. He still having abdominal cramping and states he has not had a bowel movement. [facility] Medical History Anxiety Atherosclerosis of coronary artery of [place] heart without angina pectoris BiPAP (biphasic positive airway pressure) dependence Colitis Depression Depression Diabetes Elevated liver enzymes Essential hypertension Family history of heart disease Former smoker Hyperlipidemia Hypertension Hypertension Kidney stones Leukocytosis Myocardial infarct Nausea vomiting and diarrhea JOSIAH (obstructive sleep apnea) Sepsis Sleep apnea Type 2 diabetes mellitus Home Medications amlodipine 10 mg tablet 10 mg PO DAILY blood pressure 03/15/18 [History Last Taken 12/18/20] levothyroxine 125 mcg tablet 125 mcg PO DAILY thyroid 02/08/19 [History Last Taken 12/18/20] atorvastatin 40 mg tablet 40 mg PO QHS 10/09/22 [History Last Taken Unknown] metformin 500 mg tablet 1,000 mg PO BID 10/09/22 [History Last Taken Unknown] nystatin-triamcinolone topical cream 1 applic topical .COMPLEX 10/09/22 [History Last Taken Unknown] paroxetine HCl 40 mg tablet 40 mg PO DAILY 10/09/22 [History Last Taken Unknown] aspirin 81 mg tablet,delayed release (Adult Aspirin Regimen) 81 mg PO DAILY #90 tabs 10/13/22 [Rx Last Taken Unknown] metoprolol succinate 50 mg tablet,extended release 24 hr 100 mg PO DAILY HEART 10/13/22 [History Last Taken Unknown] nitroglycerin 0.4 mg sublingual tablet 0.4 mg sublingual Q5M PRN Cardiac/Chest Pain #14 tabs 10/24/22 [Rx Last Taken Unknown] clopidogrel 75 mg tablet See Rx Instructions .Route .COMPLEX #30 tabs 11/17/22 [Rx Last Taken Unknown] oxycodone-acetaminophen 5 mg-325 mg tablet 1 tab PO Q6H PRN PRN pain 5 days #20 TABLETS 01/31/23 [Rx Last Taken Unknown] isosorbide dinitrate 5 mg tablet 5 mg PO BID #60 tabs 02/13/23 [Rx Last Taken Unknown] ondansetron 4 mg disintegrating tablet 4 mg PO Q6H PRN nausea and vomiting #7 tabs 03/04/23 [Rx Last Taken Unknown] Allergy/AdvReac Type Severity Reaction Status Date / Time No Known Allergies Allergy Verified 03/04/23 21:55 Family History Father Myocardial infarction, Onset Age: 45 Mother Hypertension Mixed hyperlipidemia Grandmother CHF (congestive heart failure) Surgical History History of coronary artery stent placement (~10/24/22) History of tonsillectomy Status post excision of lipoma Social History household members: spouse Smoking Status: Former smoker alcohol intake: current details: occasional substance use type: does not use caffeine: Yes Type: carbonated beverages Number of servings: 6 ROS ROS ED Constitutional Constitutional ED: Denies chills, fever(s) or sweats Eyes Eyes: Denies blurry vision or change in vision ENT ENT ED: Denies ear pain or sore throat Cardiovascular Cardiovascular: Denies chest pain, palpitations or racing heartbeat Respiratory/Chest Respiratory/Chest: Reports cough; Denies sputum Gastrointestinal Gastrointestinal: Reports abdominal pain, diarrhea, nausea and vomiting; Denies constipation Genitourinary Genitourinary ED: Reports dysuria; Denies hematuria or urinary frequency Musculoskeletal Musculoskeletal: Reports back pain; Denies arthralgias, myalgias or neck pain Integumentary Denies abscess, Abrasions or rash Neurologic Neurologic: Denies headache(s), paresthesias or weakness Psychiatric Psychiatric: Denies anxiety, depression, suicidal ideation or suicidal thoughts Endocrine Endocrinology: Denies polydipsia or polyuria EXAM Physical Exam Const Vital Signs: 03/17/23 19:23 03/17/23 20:40 Temperature 98.4 F Temperature Source Temporal Pulse Rate 127 H Respiratory Rate 20 H Respiratory Effort Normal Non-Labored Blood Pressure 152/82 H Blood Pressure Mean 105 Pulse Ox 95 Oxygen Delivery Method Room Air Positive well nourished and obese General Appearance ED: NAD Nutritional Appearance: obese HEENT Reports moist mucous membranes Eyes PERRL and EOMs intact bilaterally Resp normal respiratory effort and clear to auscultation bilaterally Cardio regular rate and regular rhythm GI normal to inspection, nondistended, normoactive bowel sounds Back/Spine General Back: CVA tenderness bilateral Neuro oriented x3 and CN's II-XII intact bilaterally Sensorium / Orientation: alert Motor Exam: strength 5/5 throughout and general weakness Psych mental status grossly normal Skin no rashes or lesions noted and no wounds MDM MDM MDM Narrative Medical decision making narrative: Patient presenting with nausea/vomiting which has been ongoing for days. He wasseen in the ER recently for this and states he did get a little bit better but then got worse again. He has had some constipation and diarrhea. He has not a fever at home but states he was told he had a fever at urgent care today. On examination he has bilateral CVA tenderness and no real abdominal pain on examination. Patient tachycardic. Differential includes gastritis, pancreatitis, colitis, diverticulitis, UTI, pyelonephritis, dehydration, electrolyte abnormalities. CBC was obtained to assess white blood cell count, hemoglobin, platelets. CMP was obtained to assess liver function, renal function, electrolytes, glucose, anion gap. Lipase to assess for pancreatitis. Urinalysis to assess for UTI. I did obtain a CT abdomen pelvis with IV contrastas well. Patient initially given a liter of fluids, morphine, Zofran. CBC shows a leukocytosis of 18,000 and with a left shift. Hemoglobin and hematocritare stable. Platelets are normal. LFTs unremarkable. Creatinine is elevated today at 1.88 so I did give him another liter of normal saline. It does look danilo his creatinine has been trending upward for the last couple of months. Urinalysis with positive nitrites, 100 leukocyte esterase, greater than 100 RBCs, 25-50 white blood cells with 0-5 squamous epithelial cells and 2+ bacteria. CT of the abdomen pelvis was obtained and shows concern for bilateralpyelonephritis. Given the patient has an elevated white blood cell count, pyelonephritis and meet SIRS criteria I did obtain a lactic acid and coagulationstudies, patient pancultured. He is given Rocephin 1 g IV and will talk to the hospitalist for admission. Because the patient was tachycardic I did obtain an EKG to make sure it was normal sinus rhythm. EKG on my interpretation shows sinus tachycardia at a heart rate of [address] elevation or depression. Iobtained a chest x-ray to rule out pneumonia given his work-up for sepsis. Chest x-ray is negative for acute process on my interpretation. Impression: 1. Bilateral pyelonephritis 2. Leukocytosis 3. Tachycardia 4. Nausea/vomiting 5. GM Lab Data Attestation: I reviewed the patient's lab results. Labs: Laboratory Results - last 24 hr 03/17/23 03/17/23 22:04 22:10 WBC 18.7 H RBC 4.83 Hgb 13.5 Hct 42.5 MCV 88.0 MCH 28.0 MCHC 31.8 L RDW Std Deviation 47.5 H RDW Coeff of Melva 14.6 Plt Count 219 MPV 9.5 Immature Gran % (Auto) 0.700 Neut % (Auto) 84.4 H Lymph % (Auto) 6.4 L Towns % (Auto) 8.2 Eos % (Auto) 0.0 Baso % (Auto) 0.3 Absolute Neuts (auto) 15.8 H Absolute Lymphs (auto) 1.20 Nucleated RBC % 0 Differential Comment SCANNED Diff Path Review January Sodium 131 L Potassium 3.4 L Chloride 95 L Carbon Dioxide 31.0 Anion Gap 5 BUN 19 H Creatinine 1.88 H Estim Creat Clear Calc 44.47 Est GFR (MDRD) Af Amer 49 L Est GFR (MDRD) Non-Af 40 L BUN/Creatinine Ratio 10.1 Glucose 143 H Calcium 9.1 Total Bilirubin 1.00 AST 45 H ALT 58 Alkaline Phosphatase 109 Total Protein 8.8 H Albumin 2.8 L Globulin 6.0 H Albumin/Globulin Ratio 0.5 L Lipase 25 Urine Color Yellow Urine Clarity Cloudy Urine pH 5.0 Ur Specific [place] 1.020 Urine Protein 500 H Urine Glucose (UA) Normal Urine Ketones 15 H Urine Occult Blood 250 H Urine Nitrite Positive H Urine Bilirubin 1 H Urine Urobilinogen 4 H Ur Leukocyte Esterase 100 H Urine RBC > 100 SEEN Urine WBC 25-50 SEEN Ur Squamous Epith Cells 0-5 SEEN Urine Bacteria 2+ Hyaline Casts 0-5 SEEN Fine Granular Casts 5-10 SEEN Urine Mucus 0 SEEN Radiography Diagnostic Testing: Clinical Impression(s) from Imaging Studies Chest X-Ray 03/17/23 19:30 IMPRESSION: Normal x-ray examination of the chest. Electronically Signed: Sven Johnson MD at 19:45 EDT , Abdomen/Pelvis CT 03/17/23 21:51 IMPRESSION: Heterogeneous appearing kidneys suspicious for acute pyelonephritis. No renal stones or obstructive uropathy. Electronically Signed: Danielle Sky MD at 23:11 EDT Reading Location ID and State: [id number] / Tel , Service support , Discharge Plan Triage Chief Complaint: General Illness ED Provider: Porter Banuelos Dx/Rx/DC Orders Prescriptions: No Action metoprolol succinate 50 mg tablet extended release 24 hr 100 mg PO DAILY aspirin [Adult Aspirin Regimen] 81 mg tablet,delayed release (DR/EC) 81 mg PO DAILY Qty: 90 2RF atorvastatin 40 mg tablet 40 mg PO QHS paroxetine HCl 40 mg tablet 40 mg PO DAILY nystatin-triamcinolone Cream 1 applic topical .COMPLEX Rx Instructions: 1 applic topically apply sparingly to groin and penile rash twice daily for irritation/infection up to 2 weeks and then take a week off; metformin 500 mg tablet 1,000 mg PO BID Hold Instructions: Resume on 10/26/22. amlodipine 10 MG tablet 10 mg PO DAILY Patient Comments: TAKE 1 TABLET BY MOUTH EVERY DAY levothyroxine 125 MCG tablet 125 mcg PO DAILY Patient Comments: TAKE 1 TABLET EVERY DAY nitroglycerin 0.4 mg Tablet, Sublingual 0.4 mg sublingual Q5M PRN (Reason: Cardiac/Chest Pain) Qty: 14 5RF oxycodone-acetaminophen [oxycodone-acetaminophen] 5-325 mg tablet 1 tab PO Q6H PRN PRN (Reason: pain) 5 Days Qty: 20 0RF Hold Instructions: NO LONGER TAKING ondansetron 4 mg tablet,disintegrating 4 mg PO Q6H PRN (Reason: nausea and vomiting) Qty: 7 0RF clopidogrel 75 mg tablet See Rx Instructions .ROUTE .COMPLEX Qty: 30 11RF Dose Instruction: TAKE 1 TABLET BY MOUTH EVERY DAY Rx Instructions: TAKE 1 TABLET BY MOUTH EVERY DAY isosorbide dinitrate 5 mg tablet 5 mg PO BID Qty: 60 3RF Rx Instructions: allow nitrate-free interval of 12-14 hrs per 24-hr period Primary Care Provider: Ginger Lugo Referrals: Ginger Lugo MD [Primary Care Provider] - What to do if you have Problems For any increased pain, shortness of breath, bleeding, nausea or vomiting, chestpain, or any unexpected problems, contact your Primary Care Provider. Call [facility] ([phone]) or report to the closest Emergency Room. Call 911 if necessary. 03/18/23 0031 <Electronically signed by Porter Banuelos DO> Cosigner Signature (if applicable): CC: Dr. Ginger Lugo MD ~ Signed [facility] Work Phone: [phone] 603-132706-29-2023 Discharge summary Author Tye Juarez [facility] March 05, 2023 1:05am Note Date/Time March 04, 2023 10:2 0pm [facility] Medical Records Department [address] [place] [address] Emergency Department Summary 03/04/23 MR#: [id number] Acct: [id number] Name: ROMEL LOPES Rep #:[id number] : 1970 52 From: Tye Juarez MD PCP: Dr. Ginger Lugo MD Status:REG E R Location: ED HPI History of Present Illness Chief Complaint: Nausea/Vomiting Informant: patient and spouse/S.O. Onset/Context/Timing Onset: Today and Yesterday Context: Gradual Onset Timing: Continuous Current Severity: Moderate Maximum Severity: Moderate Narrative Narrative: 52-year-old male history of CAD with 2 stents and diabetes. States yesterday started feeling poorly and had nausea and vomiting. No diarrhea. Subjective fever not documented. Denies any dysuria. Cough of white sputum. Denies any earache. His abdomen is sore but he thinks that from throwing up. He denies any recent hospitalizations. No one else at home is ill. Prior similar symptoms: Yes Recent Illness/Hospitalization: No PFSH PFS Medical History (Updated 03/04/23 @ 23:[address] Tye Juarez MD) Anxiety Atherosclerosis of coronary artery of [place] heart without angina pectoris BiPAP (biphasic positive airway pressure) dependence Colitis Depression Depression Diabetes Elevated liver enzymes Essential hypertension Family history of heart disease Former smoker Hyperlipidemia Hypertension Hypertension Kidney stones Leukocytosis Myocardial infarct Nausea vomiting and diarrhea JOSIAH (obstructive sleep apnea) Sepsis Sleep apnea Type 2 diabetes mellitus Home Medications amlodipine 10 mg tablet 10 mg PO DAILY blood pressure 03/15/18 [History Last Taken 12/18/20] levothyroxine 125 mcg tablet 125 mcg PO DAILY thyroid 02/08/19 [History Last Taken 12/18/20] atorvastatin 40 mg tablet 40 mg PO QHS 10/09/22 [History Last Taken Unknown] metformin 500 mg tablet 1,000 mg PO BID 10/09/22 [History Last Taken Unknown] nystatin-triamcinolone topical cream 1 applic topical .COMPLEX 10/09/22 [History Last Taken Unknown] paroxetine HCl 40 mg tablet 40 mg PO DAILY 10/09/22 [History Last Taken Unknown] aspirin 81 mg tablet,delayed release (Adult Aspirin Regimen) 81 mg PO DAILY #90 tabs 02/06/23 [Rx Last Taken Unknown] metoprolol succinate 50 mg tablet,extended release 24 hr 100 mg PO DAILY HEART 10/13/22 [History Last Taken Unknown] nitroglycerin 0.4 mg sublingual tablet 0.4 mg sublingual Q5M PRN Cardiac/Chest Pain #14 tabs 10/24/22 [Rx Last Taken Unknown] clopidogrel 75 mg tablet See Rx Instructions .Route .COMPLEX #30 tabs 11/17/22 [Rx Last Taken Unknown] oxycodone-acetaminophen 5 mg-325 mg tablet 1 tab PO Q6H PRN PRN pain 5 days #20 TABLETS 01/31/23 [Rx Last Taken Unknown] isosorbide dinitrate 5 mg tablet 5 mg PO BID #60 tabs 02/13/23 [Rx Last Taken Unknown] ondansetron 4 mg disintegrating tablet 4 mg PO Q6H PRN nausea and vomiting #7 tabs 03/04/23 [Rx Last Taken Unknown] Allergy/AdvReac Type Severity Reaction Status Date / Time No Known Allergies Allergy Verified 03/04/23 21:55 Family History Father Myocardial infarction, Onset Age: 45 Mother Hypertension Mixed hyperlipidemia Grandmother CHF (congestive heart failure) Surgical History History of coronary artery stent placement (~10/24/22) History of tonsillectomy Status post excision of lipoma Social History household members: spouse Smoking Status: Former smoker alcohol intake: current details: occasional substance use type: does not use caffeine: Yes Type: carbonated beverages Number of servings: 6 ROS ROS ED ROS Narrative Nausea and vomiting. Subjective fever, Review of Systems ROS Unobtainable: Denies due to encephalopathy Constitutional Constitutional ED: Reports fever(s) and subjective Eyes Eyes: Denies blurry vision ENT ENT ED: Denies ear pain Cardiovascular Cardiovascular: Denies chest pain Respiratory/Chest Respiratory/Chest: Reports cough Gastrointestinal Gastrointestinal: Reports nausea and vomiting Genitourinary Genitourinary ED: Denies dysuria or hematuria Musculoskeletal Musculoskeletal: Denies arthralgias Integumentary Denies abscess Neurologic Neurologic: Denies headache(s) Psychiatric Psychiatric: Denies anxiety Endocrine Endocrinology: Denies cold intolerance Hematologic/Lymphatic Hematologic/Lymphatic: Reports none Allergic/Immunologic Allergic/Immunologic ED: Denies mouth swelling, tongue swelling or urticaria EXAM Physical Exam Narrative Exam Narrative: Middle-aged male. Vital signs are stable. He is afebrile. He does not look septic or toxic. He does look mildly dehydrated. Reviewed. H EENT exam unremarkable except for dry mucous membranes. Pupils round reactive light. Neck nontender no lymphadenopathy. No meningismus. Lungs clear to auscultationbilaterally. Heart tachycardic rate about 110 no murmur. Chest wall nontender. Abdomen mildly diffusely tender. Not localizing the the right upper or right lower quadrant. No distention or obstruction. No peritoneal signs. Soft. Back nontender. Skin no rashes. Moving all 4 extremities. Nontender. Normal motor strength. Neurologically he is awake and alert with no focal motor deficits. Const Vital Signs: 03/04/23 21:54 03/04/23 22:43 03/05/23 00:15 Temperature 98.0 F 99.1 F Temperature Source Temporal Oral Pulse Rate 110 H 107 H 99 Respiratory Rate 18 14 28 H Blood Pressure 137/90 H 121/84 H 121/68 H Blood Pressure Mean 105 96 82 Pulse Ox 97 93 95 Oxygen Delivery Method Room Air Room Air Positive well nourished, well developed and obese; Negative for cachectic, contractures or unkempt General Appearance ED: well developed and NAD; Negative for unkempt, cachectic, contractures, cyanotic, diaphoretic or pallor Nutritional Appearance: obese; Negative for cachectic HEENT Reports dry mucous membranes; Denies moist mucous membranes Negative for trauma or tenderness Mouth ED: Yes dry mucous membranes Mouth: dry mucous membranes Eyes PERRL and EOMs intact bilaterally General Eye ED: Negative for pale conjunctiva or scleral icterus Neck no lymphadenopathy, supple and no JVD General: Negative for tenderness Lymph Lymphatic: Negative for other Chest Wall inspection of chest normal and palpation of chest normal Resp normal respiratory effort and clear to auscultation bilaterally Effort and Inspection: Negative for retractions Auscultation: Negative for rales, rhonchi or wheezes Cardio regular rhythm, S1 normal heart sound, S2 normal heart sound and no murmurs; Negative for regular rate Rate: tachycardic GI normal to inspection, nondistended, normoactive bowel sounds, non-distended and no masses; Negative for non-tender Inspection: Negative for abdominal distention Auscultation: normoactive bowel sounds Palpation: soft and tender; Negative for guarding, splenomegaly, mass or reboundtenderness present Back/Spine no CVA tenderness General Back: Negative for CVA tenderness Cervical Spine: Negative for cervical spine tenderness Thoracic Spine / Upper Back: Negative for thoracic spinal tenderness Lumbar Spine / Lower Back: Negative for lumbar spinal tenderness Extremity normal to inspection General Extremety ED: Negative for tenderness Neuro oriented x3 and CN's II-XII intact bilaterally Sensorium / Orientation: alert; Negative for orientation impaired, lethargic or stuporous Motor Exam: strength 5/5 throughout Psych mental status grossly normal Appearance: Negative for unkempt Attitude: No agitated Skin no rashes or lesions noted and no wounds General Skin Exam: Negative for jaundice or pallor Lesions: No lesion noted Rashes: No rashes noted Trauma: Negative for abrasion Wounds: Negative for wounds noted MDM MDM MDM Narrative Medical decision making narrative: 52-year-old male with nausea, vomiting, cough and subjective fever. Will be treated with liter normal saline for dehydration. He had Zofran at home and currently is not nauseated. Labs and chest x-ray are being obtained. Viral versus bacterial infection. Repeat exam at 11:30 PM patient doing well. Resting comfortably. We went over his labs. Do not have a specific cause for his illness most likely is as a viral syndrome. There is no pneumonia on chest x-ray. His COVID and flu are negative. His abdomen is benign. He is currently receiving a liter normal saline. He will be reassessed. He was given Tylenol for body aches. Patient be reevaluated. If he is doing well be discharged home with Zofran for nausea. Follow-up with his doctor in the next several days to ensure he is improving or return if worse. I do not think he needs any further imaging at this time. Repeat exam at 1:02 AM patient is feeling improved. His abdomen is benign. Clinically I think this is a viral syndrome. He will be discharged home with Zofran. Follow-up with his doctor in the next couple days if he is not improving or return if worse. I went over all test results but he and his and they are both comfortable with him being discharged home. He knows to return if worse. Lab Data Attestation: I reviewed the patient's lab results. Lab results narrative: CBC shows a white count of 14.0. H&H 13 and 41. Platelets 210. Chemistries unremarkable. Gap of 8. BUN and creatinine 19 and 1.51. Liver enzymes unremarkable. Lipase normal at 20. Glucose 129. Urinalysis is unremarkable. No white or red cells. No nitrates or bacteria. COVID and influenza both negative. Chest x-ray negative. Labs: Laboratory Results - last 24 hr 03/04/23 03/04/23 22:00 22:35 WBC 14.0 H RBC 4.75 Hgb 13.3 Hct 41.3 MCV 86.9 MCH 28.0 MCHC 32.2 RDW Std Deviation 47.2 H RDW Coeff of Melva 14.7 H Plt Count 210 MPV 10.3 Immature Gran % (Auto) 0.400 Neut % (Auto) 83.6 H Lymph % (Auto) 10.3 L Towns % (Auto) 5.1 Eos % (Auto) 0.2 Baso % (Auto) 0.4 Absolute Neuts (auto) 11.7 H Absolute Lymphs (auto) 1.44 Nucleated RBC % 0 Sodium 134 L Potassium 3.7 Chloride 100 Carbon Dioxide 26.0 Anion Gap 8 BUN 19 H Creatinine 1.51 H Estim Creat Clear Calc 55.36 Est GFR (MDRD) Af Amer 63 Est GFR (MDRD) Non-Af 52 L BUN/Creatinine Ratio 12.6 Glucose 129 H Lactic Acid 1.3 Calcium 9.7 Total Bilirubin 0.90 AST 19 ALT 36 Alkaline Phosphatase 100 Total Protein 8.4 H Albumin 3.3 Globulin 5.1 H Albumin/Globulin Ratio 0.6 L Lipase 20 Urine Color Yellow Urine Clarity Clear Urine pH 5.0 Ur Specific [place] 1.025 Urine Protein 100 H Urine Glucose (UA) Normal Urine Ketones 5 H Urine Occult Blood 25 H Urine Nitrite Negative Urine Bilirubin 1 H Urine Urobilinogen 4 H Ur Leukocyte Esterase 25 H Urine RBC 0 SEEN Urine WBC 0-5 SEEN Ur Squamous Epith Cells 0-5 SEEN Urine Bacteria 0 SEEN Urine Mucus 0 SEEN Radiography Chest X-Ray - ED: 2 View, Read by ED Physician, Mediastinum, Bony Structures, NoAcute Disease and Chronic Changes Diagnostic Testing: Clinical Impression(s) from Imaging Studies Chest X-Ray 03/04/23 23:10 IMPRESSION: No evidence of acute cardiopulmonary disease. Electronically Signed: Edson Pitts DO at 23:22 EDT , Chest x-ray, 2 views, interpreted myself shows no acute abnormality. Normal cardiac silhouette. No infiltrate. Rhythm Strip Rhythm Strip: Sinus Tach Rate: 102 Ectopy: None EKG Initial EKG: Attestation: I personally reviewed and interpreted this EKG as follows: Interpretation: Sinus Tachycardia Comments: Sinus tachycardia rate of 102. No acute signs of AL or ischemia. Discharge Plan Triage Chief Complaint: Nausea/Vomiting ED Provider: Tye Juarez Dx/Rx/DC Orders Clinical Impression: Viral syndrome, History of coronary artery disease, History of diabetes mellitus, Nausea & vomiting Instructions: ED Viral Syndrome (Adult), ED Vomiting (Adult) Prescriptions: New ondansetron 4 mg tablet,disintegrating 4 mg PO Q6H PRN (Reason: nausea and vomiting) Qty: 7 0RF No Action metoprolol succinate 50 mg tablet extended release 24 hr 100 mg PO DAILY aspirin [Adult Aspirin Regimen] 81 mg tablet,delayed release (DR/EC) 81 mg PO DAILY Qty: 90 2RF atorvastatin 40 mg tablet 40 mg PO QHS paroxetine HCl 40 mg tablet 40 mg PO DAILY nystatin-triamcinolone Cream 1 applic topical .COMPLEX Rx Instructions: 1 applic topically apply sparingly to groin and penile rash twice daily for irritation/infection up to 2 weeks and then take a week off; metformin 500 mg tablet 1,000 mg PO BID Hold Instructions: Resume on 10/26/22. amlodipine 10 MG tablet 10 mg PO DAILY Patient Comments: TAKE 1 TABLET BY MOUTH EVERY DAY levothyroxine 125 MCG tablet 125 mcg PO DAILY Patient Comments: TAKE 1 TABLET EVERY DAY nitroglycerin 0.4 mg Tablet, Sublingual 0.4 mg sublingual Q5M PRN (Reason: Cardiac/Chest Pain) Qty: 14 5RF oxycodone-acetaminophen [oxycodone-acetaminophen] 5-325 mg tablet 1 tab PO Q6H PRN PRN (Reason: pain) 5 Days Qty: 20 0RF Hold Instructions: NO LONGER TAKING clopidogrel 75 mg tablet See Rx Instructions .ROUTE .COMPLEX Qty: 30 11RF Dose Instruction: TAKE 1 TABLET BY MOUTH EVERY DAY Rx Instructions: TAKE 1 TABLET BY MOUTH EVERY DAY isosorbide dinitrate 5 mg tablet 5 mg PO BID Qty: 60 3RF Rx Instructions: allow nitrate-free interval of 12-14 hrs per 24-hr period Primary Care Provider: Ginger Lugo Referrals: Ginger Lugo MD [Primary Care Provider] - 1-2 Days if not improving Activity Restrictions/Additional Instructions: Plenty of fluids and rest. Increase your diet slowly as tolerated. Zofran as needed for nausea. You may swallow it or let it dissolve in your tongue. Follow-up with your doctor if not improving or return if feeling worse. Disposition Disposition: Home, Self Care What to do if you have Problems For any increased pain, shortness of breath, bleeding, nausea or vomiting, chestpain, or any unexpected problems, contact your Primary Care Provider. Call [facility] ([phone]) or report to the closest Emergency Room. Call 911 if necessary. 03/05/23 0105 <Electronically signed by Tye Juarez MD> Cosigner Signature (if applicable): CC: Dr. Ginger Lugo MD ~ Signed [facility] Work Phone: [phone]) 398-725403-20-2023 Miscellaneous Notes* Telephone Encounter - Ronnie Barrow LPN - 11/24/2022 9:53 AM EDT Patient phones requesting refills as follows: Requested Prescriptions Pending Prescriptions Disp Refills dulaglutide (TRULICITY) 0.75 mg/0.5 mL pen injector 4 Each 5 Sig: Inject 0.75 mg subcutaneously one time a week. [facility]XTON 10/30/22 NOV 01/22/23 Please review and advise. Ronnie Barrow LPN [facility] Miscellaneous Notes* Telephone Encounter - Nadege Christine PA-C - 10/30/2022 1:49 PM EST Addended letter. Mac Christine PA-C * Telephone Encounter - Nery Estrada LPN - 10/30/2022 1:06 PM EST Patient Liliana returned call and went over notes from Mac VALENTIN with understanding. 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 Went over notes again from Mac and she said I will tell my . * Telephone Encounter - Marilu Sanchez Ma - 10/30/2022 12:44 PM EST Called and left message. Letter reads as follows: To Whom it may concern, Nick Lopes was examined here for an acute medical condition. Please excuse him from work missed from 10/08/2022 through today. May return next scheduled shift without restrictions. Thank you, Grady Christine PA-C This should satisfy the requirement if next scheduled shift is 11/03/22. No need for 2nd letter to be written. * Telephone Encounter - Nadege Christine PA-C - 10/30/2022 12:35 PM EST I wrote a letter today- is that what is being addressed? Thanks, Mac Christine PA-C * Telephone Encounter - Danielle Mann LPN - 10/30/2022 10:53 AM EST Pt seen yesterday 10/29/22 and letter was given. Pt's work is going to be shut down and pt will return to work on 11-03-22. The letter needs to have return to work on 11-03-22 without restrictions. 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 Danielle Mann LPN documented in this encounterWexner Medical Center02-18-[address] Patton [facility] October 25, 2022 10:26am Note Date/Time October 25, 2022 10:26am [facility] Medical Records Department [address] [place] [address] Progress Note - Cardiology 10/25/22 1023 MR#: [id number] Acct: [id number] Name: ROMEL LOPES Rep #:[id number] : 1970 51 From: Ashley Patton MD PCP: Dr. Ginger Lugo MD Status:ADM I NO Location: [place] [address] Subjective Subjective Denies any complaints. Ambulating. No angina. Objective Data Vital Signs: Vital Signs Temp Pulse Resp BP Pulse Ox O2 Del Method O2 Flow Rate 97.5 F L 64 16 140/84 H 97 Room Air 3 10/25/22 10:03 10/25/22 10:16 10/25/22 10:03 10/25/22 10:16 10/25/22 10:03 10/25/22 10:03 10/24/22 22:44 Oxygen Flow Rate (L/min) 3 Oxygen Delivery Method Room Air Weight: 294 lb 1.546 oz Body Mass Index (BMI) 44.7 Intake & Output: Intake and Output for Last 24 Hours 10/23/22 10/24/22 10/25/22 23:59 23:59 23:59 Intake Total 1500 / 1500 120 / 120 Balance 1500 / 1500 120 / 120 Lab / Micro Data Attestation: I reviewed the patient's lab results. Result Diagrams: 10/25/22 03:45 10/25/22 03:45 Labs: Laboratory Results - last 24 hr 10/24/22 12:35: Activated Clotting Time 143 H 10/24/22 12:40: Activated Clotting Time 257 H 10/24/22 13:15: Activated Clotting Time 263 H 10/25/22 03:45: WBC 10.3, RBC 4.56 L, Hgb 12.6 L, Hct 39.9 L, MCV 87.5, MCH 27.6, MCHC 31.6 L, RDW Std Deviation 45.1 H, RDW Coeff of Melva 14.1, Plt Count 183, MPV 9.8 10/25/22 03:45: Sodium 139, Potassium 3.9, Chloride 104, Carbon Dioxide 27.0, Anion Gap 8, BUN 16, Creatinine 0.86, Estim Creat Clear Calc 98.31, Est GFR (MDRD) Af Amer 120, Est GFR (MDRD) Non-Af 99, BUN/Creatinine Ratio 18.5, Sicacis192 H, Calcium 8.8, Total Bilirubin 0.40, AST 28, ALT 53, Alkaline Phosphatase 94, Total Protein 6.8, Albumin 3.1 L, Globulin 3.7, Albumin/Globulin Ratio 0.8 L Rhythm Strip Rhythm Strip: Sinus Rhythm Cardiology Labs/Tests 10/25/22 03:45: WBC 10.3, RBC 4.56 L, Hgb 12.6 L, Hct 39.9 L, MCV 87.5, MCH 27.6, MCHC 31.6 L, Plt Count 183, MPV 9.8 10/25/22 03:45: Sodium 139, Potassium 3.9, Chloride 104, Carbon Dioxide 27.0, Anion Gap 8, BUN 16, Creatinine 0.86, Est GFR (MDRD) Af Amer 120, Est GFR (MDRD)Non-Af 99, BUN/Creatinine Ratio 18.5, Glucose 210 H, Calcium 8.8, Total Bilirubin 0.40 Rhythm: EKG: ECHO: Stress Test: Cardiac Cath: PCI: CT Surgery: Holter monitor: EPS: PPM: CXR: Chest CT Scan: Assessment & Plan Assessment/Plan (1) CAD (coronary artery disease): PLAN: Status post drug-eluting stents to the proximal and mid LAD. Stable. Asymptomatic. Continue aspirin lifelong. Clopidogrel treatment for at least 1 year. (2) Hyperlipidemia: PLAN: On atorvastatin. (3) Essential hypertension: PLAN: Continue to monitor. (4) Type 2 diabetes mellitus: PLAN: As per PCP. Resume metformin tomorrow. (5) Obesity: PLAN: Lose weight. (6) JOSIAH (obstructive sleep apnea): PLAN: Uses BiPAP. 10/25/22 1026 <Electronically signed by Ashley Patton MD> Cosigner Signature (if applicable): CC: ~ Signed [facility] Work Phone: 1(448) 530-544302-17-[address] Patton [facility] October 24, 2022 3:54pm Note Date/Time October 24, 2022 3:54pm [facility] Medical Records Department [address] [place] [address] Instructions for Home/Discharge Instructions 10/24/22 1552 MR#: [id number] Acct: [id number] Name: ROMEL LOPES Rep #:[id number] : 1970 51 From: Ashley Patton MD PCP: Dr. Ginger Lugo MD Status:REG S DC Discharge Instructions Diet Discharge Diet: 1999 Calorie Control Diet Activity Discharge Activity: Return to Normal Activity Follow Up Care Please Follow Up With: Ashley Patton MD When: 2 weeks Test Results: Test results from this visit will be discussed in further detail at your follow- up appointment, if applicable. Discharge Plan Admission Attending Provider: Ashley Patton Primary Care Provider: Ginger Lugo Discharge Orders/Prescriptions Prescriptions: New clopidogrel 75 mg Tablet 75 mg PO DAILY Qty: 60 5RF Continued metoprolol succinate 50 mg tablet extended release 24 hr 100 mg PO DAILY isosorbide dinitrate 5 mg tablet 5 mg PO BID Qty: 60 3RF Rx Instructions: allow nitrate-free interval of 12-14 hrs per 24-hr period aspirin [Adult Aspirin Regimen] 81 mg tablet,delayed release (DR/EC) 81 mg PO DAILY Qty: 90 2RF atorvastatin 40 mg tablet 40 mg PO QHS paroxetine HCl 40 mg tablet 40 mg PO DAILY nystatin-triamcinolone Cream 1 applic topical .COMPLEX Rx Instructions: 1 applic topically apply sparingly to groin and penile rash twice daily for irritation/infection up to 2 weeks and then take a week off; amlodipine 10 MG tablet 10 mg PO DAILY Label Comments: TAKE 1 TABLET BY MOUTH EVERY DAY levothyroxine 125 MCG tablet 125 mcg PO DAILY Label Comments: TAKE 1 TABLET EVERY DAY Held metformin 500 mg tablet 1,000 mg PO BID Hold Instructions: Resume on 10/26/22. Referrals / Follow Up: Ashley Patton MD [Med Staff - Active Staff] - 11/05/22 11:30 am Ginger Lugo MD [Primary Care Provider] - Disposition Disposition (needs filled in before D/C Order can be placed): Home, Self Care 10/24/22 1554<Electronically signed by Ashley Patton MD>Ashley Patton MD CC: Dr. Ginger Lugo MD ~ Signed [facility] Work Phone: 1(691) 477-618902-01-2023 Evaluation note* Diagnosis Onset Date Resolution Status Chest pain acute Diabetes acute History of coronary artery disease acute History of coronary artery stent placement October, acute Essential hypertension chron ic Hyperlipidemia chronic [facility] Work Phone: 1(240) 970-911602-01-2023 History of Present illness Narrative* Ginger Lugo MD - 10/08/2022 9:04 AM EST Patient presents with: ER F/U HPI: Patient presents today for office visit for ER F/U. [facility] ER 10/07/22. Transported via EMS after [...] started. Complained of that on awakening. Pain lastedabout six or seven hours and then disappeared. [...] Fam hx-cardiovas dis NEC n/a father, of AL at 45 Hypothyroid Other and unspecified hyperlipidemia [...] ATTACK AT AGE 45 Heart Mother no blockages, hyperlipidemia Breast Cancer Mother Diabetes Maternal Grandmother [...] past medical history, surgical history, family history andsocial history today. REVIEW OF SYSTEMS All other reviewed and negative other than HPI. VITALS: BP 136/90 Pulse 70 Ht 166.4 cm (5' 5.5) Wt 133.4 kg (294 lb) SpO2 95% [...] given hx. Will get old records from [facility]. - CONSULT TO CARDIOLOGY 6. Family history of heart disease - ICD9: V17.49, ICD10: Z82.49 - CONSULT TO CARDIOLOGY Ginger Lugo MD documented in this encounterWexner Medical Center01-31-2023 History of Present illness NarrativePatient is here for kidney stone and pyelonephritis..Patient was in [facility], was treated with IV antibiotics and IM injections after discharge..States is feeling better..CT was done 10/07/22 and was normal from standpoint. CT [place] [facility] showed mild perinephric stranding but no stones or o bstruction. ..Chronic BPH with LUTs, sx are mild and stable..No dysuria, No hematuria since discharged from [facility]..Nocturia x 1-2, depending on fluid intake..ED is mild.. No PSA.[id number] DO Work Phone: 1(103) 417-665001-31-2023 History of Present illness NarrativePatient is here for kidney stone and pyelonephritis..Patient was in [facility], was treated with IV antibiotics and IM injections after discharge..States is feeling better..CT was done 10/07/22 and was normal from standpoint. CT [facility] showed mild perinephric stranding but no stones or obstruction. ..Chronic BPH with LUTs, sx are mild and stable..No dysuria, No hematuria since discharged from [facility]..Nocturia x 1-2, depending on fluid intake..ED is mild.. No PSA.[facility] Work Phone: [phone] Miscellaneous Notes* Telephone Encounter - Nuha Perez LPN - 10/07/2022 9:28 AM EST Patient has been identified by name and date of : Ye Patient phones for refill(s): Requested Prescriptions Pending Prescriptions Disp Refills atorvastatin (LIPITOR) 40 mg tablet 90 tablet 1 Sig: Take 1 tablet by mouth daily at bedtime. For cholesterol. Date of last office visit in primary care: 06/27/22 Next appointment 11/05/22 Please advise. Thank you. Nuha Perez LPN documented in this encounterWexner Medical Center01-31-2023 Miscellaneous Notes* Telephone Encounter - Marilu Sanchez Ma - 10/07/2022 9:28 AM EST Patient has been identified by name and date of : Yes Requested Prescriptions Pending Prescriptions Disp Refills PARoxetine (PAXIL) 40 mg tablet 90 tablet 3 Sig: Take 1 tablet by mouth once daily. PAXTON 08/28/22 RX INSTRUCTIONS: Patient aware RX will be sent to pharmacy. No need to notify patient. Marilu Sanchez Ma documented in this encounterWexner Medical Center12-22-2022 History of Present illness Narrative* Nadege Christine PA-C - 08/28/2022 10:40 AM EST Audio only was used for evaluation of this patient. Location of patient: [place] Patient was offered a virtual/telemedicine appointment in [...] ATTACK AT AGE 45 Heart Mother no blockages, hyperlipidemia Breast Cancer Mother Diabetes Maternal Grandmother Breast Cancer Paternal Grandfather Hypertension Mother around age 60 PAST MEDICAL HISTORY Diagnosis Date Elevated white blood cell count has been reviewed by hematology. 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 90 tablet3 metFORMIN ER (GLUCOPHAGE XR) 500 mg 24 hr tablet Take 2 tablets by mouth twice daily. 360 tablet 3 PARoxetine (PAXIL) 40 mg tablet Take 1 tablet by mouth once daily. 90 tablet 3 Lancets lancets Test blood sugar(s) 1 times daily. Dx: Type 2 DM - Controlled E11.9 Insulin: No 100Each 11 blood sugar diagnostic (BLOOD GLUCOSE TEST) test strip Test blood sugar(s) 1 times daily. Dx: Type 2 DM - Controlled E11.9 Insulin: No 50 Strip 11 nystatin-triamcinolone (MYCOLOG) ointment Apply sparingly to perineum twice daily for irritation/infection. 30 g 0 albuterol HFA (VENTOLIN HFA) 90 mcg/actuation inhaler Inhale 2 Puffs as instructed every 4 hours asneeded for Wheezing/Shortness of Breath. (Patient not taking: [...] review. Nadege Christine PA-C documented in this encounterWexner Medical Center11-01-2022 Miscellaneous Notes* Telephone Encounter - Nadege Christine PA-C - 07/08/2022 2:22 PM EDT Please advise blood sugar was 74- nondiabetic range but hgba1c was set ahead for 3 months by accident. I need the hgba1c if he could stop levar n get it done- my apologies. Non-fasting is fine. Get Medical Advice on 07/07/22 HGB A1C Thanks, Mac Christine PA-C documented in this encounterWexner Medical Center10-21-2022 Instructions* Patient Instructions* Nadege Christine PA-C - 06/27/2022 10:35 AM EDT Use Mycolog cream twice a day as directed for 2 weeks or until burning and itching improve, then swith to Lotrimen cream twice a day as directed (over the counter) until every trace of skin rash or peeling is gone. documented in this encounterWexner Medical Center10-21-2022 History of Present illness Narrative* Nadege Christine PA-C - 06/27/2022 9:20 AM EDT 51 year old male with c/o yearly [...] Temperature Intolerance: cold no, hot all the time. Change in bowel habits? Diarrhea - thinks [...] several months. Irritability? No. REVIEW OF SYMPTOMS: General: denies fatigue, unusual weight loss or gain, fevers, chills. Energy Level: sometimes really drained, others feels good. Exercise none. Sleep: hours: 8h, up three times to urinate Diet: not really watching Tobacco use: 5 cig a day Caffeine use: 1 can Pepsi. ETOH use: none. Marijuana use: none. Illicit drug use: none. Eyes: denies change in vision, glaucoma, cataracts. Distance glasses/contacts. Last eye exam: 1 year. EENT: denies recurrent sinus infection, unusual nasal drainage, hoarsemess, sore throat, or recurrent sore in mouth or tongue. Cardiovascular: See above Respiratory: see above GI: denies difficulty swallowing, nausea, vomiting, change in appetite. No change in bowel habits. Denies constipation, diarrhea, rectal bleeding or hemorrhoids, incontinence. No history of GERD, PUD, jaundice/hepatitis, GB disease, diverticulosis, colorectal cancer, hernias. Kidney/Bladder: Denies frequency, burning. Nocturia1-2, incontinence none. No history of kidney stones, recurrent UTI or kidney infection. Skin: denies unusual rashes. No history of skin cancer, bleeding/changing moles, or unusual skin lesions. Neurologic: Denies recurrent MOORE, change in vision, hearing or smell, tremors, unusual weakness, loss of sensation, or difficulty with balance or gait. No history of epilepsy/convulsions, migraine, head/spinal injuries, or stroke/TIA. Psychiatric: see above Endocrine: see above Hematologic: denies unusual bleeding, bruising, or history of anemia or blood transfusion. Denies hx blood clots. Infections: denies risk factors for HIV, hepatitis or history of unusual infection. Immunizations are up to date. Musculoskeletal: chronic back pain, mild currently, hx DDD. 07/04/2015 MRI new L1-2 small disc sequestration causing mild canal stenosis, new small central disc extrusion L2-3 with mild canal stenosis. Chronic neck pain: 05/18/2015 MRI cervical: disc osteophyte complex C4/5 flattening overlying cordw/o signal abnormality, moderate left sided neural foraminal narrowing related to osteophyte complex and facet hypertrophy. Disc extrusion C6/7 with mild right sided neural foraminal narrowing. Otherwise denies unusual stiffness, muscles aches, joint pain, or swelling. Denies recurrent sprain or disruption of joints, debilitating arthritis, gout, or other musculoskeletal disease. HISTORIES FAMILY HISTORY Problem Relation Age of Onset Heart Father of HEART ATTACK AT AGE 45 Heart Mother no blockages, hyperlipidemia Breast Cancer Mother Diabetes Maternal Grandmother Breast Cancer Paternal Grandfather Hypertension Mother around age 60 PAST MEDICAL HISTORY Diagnosis Date Elevated white blood cell count has been reviewed by hematology. 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 90 tablet3 metFORMIN ER (GLUCOPHAGE XR) 500 mg 24 hr tablet Take 2 tablets by mouth twice daily. 360 tablet 3 PARoxetine (PAXIL) 40 mg tablet Take 1 tablet by mouth once daily. 90 tablet 3 Lancets lancets Test blood sugar(s) 1 times daily. Dx: Type 2 DM - Controlled E11.9 Insulin: No 100Each 11 blood sugar diagnostic (BLOOD GLUCOSE TEST) test strip Test blood sugar(s) 1 times daily. Dx: Type 2 DM - Controlled E11.9 Insulin: No 50 Strip 11 nystatin-triamcinolone (MYCOLOG) ointment Apply sparingly to perineum twice daily for irritation/infection. 30 g 0 albuterol HFA (VENTOLIN HFA) 90 mcg/actuation inhaler Inhale 2 Puffs as instructed every 4 hours asneeded for Wheezing/Shortness of Breath. 6.7 g 0 [...] 74 Resp 18 Ht 166.4 cm (5' 5.5) Wt 128.4 kg (283 lb) SpO2 94% [...] normal shape. Lungs are clear to all syemour with good air exchange through out. HRRR [...] foot pain no, No deformities, ulcers, calluses, normaldistal pulses, and sensitive to 10 gm monofilament. [...] risk - Discussed diabetic education issues of adjunct faculty for medical terminology diabetic complications, hyperglycemic symptoms, diet, importance of [...] labs after we see results from today Nadege Christine PA-C documented in this encounterWexner Medical Center10-12-2022 Miscellaneous Notes* Telephone Encounter - Kylie Tran - 06/18/2022 8:40 AM EDT Faxed to [facility]. Kylie Tran * Telephone Encounter - Ginger Lugo MD - 06/12/2022 3:41 PM EDT written * Telephone Encounter - Edna Saucedo [facility] - 06/12/2022 1:14 PM EDT Nick Lopes is a patient of Ginger Lugo MD today spouse, Liliana called to request orders are placed for C-Pap supplies; he needs chin strap and mask. She will find out where the order needs to be faxed to and call back. Patient has been identified by name and birthdate. Duration of symptoms: N/A Person calling: Liliana Call patient at: on cell [phone] (home) [phone] (work) [phone] (cell) Was an appointment scheduled: No Closing statement: Results or non-symptom based questions: Thank you [facility], your call will be returned within the next business day. Edna Saucedo Pss documented in this encounterWexner Medical Center10-11-2022 History of Present illness Narrative* Vanda Contreras Ma - 06/17/2022 10:20 AM EDT NO show letter mailed to pt. Vanda Contreras Ma * Nadege Christine PA-C - 06/17/2022 9:00 AM EDT No show. Mac Christine PA-C documented in this encounterWexner Medical Center10-06-2022 Miscellaneous Notes* Telephone Encounter - Edna Saucedo Pss - 06/12/2022 1:08 PM EDT Patient has been identified by name and [...] patient. Edna Saucedo Pss documented in this encounterWexner Medical Center05-23-2022 Miscellaneous Notes* Telephone Encounter - Danielle Mann LPN - 01/27/2022 9:16 AM EDT called in and states she booked apt with pcp because he was to [facility] yesterday 01-26-22 and was to be seen today. Dr. Lugo reviewed ER report and is advising pt contact the place that he was referred to by [facility] because he is going to need referred to ortho and he would be much better served by them. I notified and apt in office today has been cancelled. Danielle Mann LPN documented in this encounterWexner Medical Center04-12-2022 Miscellaneous Notes* Telephone Encounter - Marilu Sanchez Ma - 2021 1:25 PM EDT notified of letter ready at med recs * Telephone Encounter - Danielle Mann LPN - 2021 11:43 AM EDT calling to check status. Please let her know when ready for coal picker. Hoping to coal picker today. Call [phone] Danielle Mann LPN * Telephone Encounter - Marilu Sanchez Ma - 2021 11:25 AM EDT Placed on desk for signature * Telephone Encounter - Ginger Lugo MD - 12/16/2021 12:19 PM EDT Printed. * Telephone Encounter - Vanda Contreras Ma - 12/16/2021 10:29 AM EDT See pt message and advise. Vanda Contreras Ma documented in this encounterWexner Medical Center04-10-2022 History of Present illness Narrative* Extended time required for all activities d/t increased pain 4/10 and decreased ROM of LUE/shoulder. * Patient was able to complete today's treatment with some difficulty. [facility] Work Phone: [phone]) 965-402804-05-2022 Miscellaneous Notes* Telephone Encounter - Jyoti Somers Ma - 12/10/2021 1:50 PM EDT Patient was notified and verbalized understanding Jyoti Somers Ma * Telephone Encounter - Ginger Lugo MD - 12/10/2021 12:42 PM EDT Ok. That could be part of what we are seeing. I think it is not a bad idea to increase his metformin anyway. Lets bump it to 2 pills bid. Call sugars in two weeks. Work on not missing any doses and recheck tsh and lipid in one month. If still off, will need meds adjusted. * Telephone Encounter - Ronnie Barrow LPN - 12/10/2021 11:21 AM EDT TC to pt, notified of provider response. Pt states he is taking his medications, but did miss several doses of all meds about a week or so ago. Ronnie Barrow LPN * Telephone Encounter - Ginger Lugo MD - 12/10/2021 10:58 AM EDT His sugars, cholesterol and thyroid are all up significantly. Is he taking his medications? Missed any doses? documented in this encounterWexner Medical Center04-04-2022 History of Present illness Narrative* Ginger Lugo MD - 12/09/2021 3:43 PM EDT Patient presents with: Pain: patient is here [...] toradol. Is going to see ortho in [place]. Has to call to get time. Needs [...] with right knee pain that started couple daysago he has pretty significant swelling suprapatellar. Cannot [...] 2 Puffs as instructed every 4 hours asneeded for Wheezing/Shortness of Breath. COMPOUNDED PRESCRIPTION Initiate [...] Fam hx-cardiovas dis NEC n/a father, of AL at 45 Hypothyroid Other and unspecified hyperlipidemia [...] ATTACK AT AGE 45 Heart Mother no blockages, hyperlipidemia Breast Cancer Mother Diabetes Maternal Grandmother [...] past medical history, surgical history, family history andsocial history today. REVIEW OF SYSTEMS All other [...] in 1 month for BP recheck. Ginger Lugo RTO in three months and prn. documented in this encounterWexner Medical Center04-04-2022 Miscellaneous Notes* Telephone Encounter - Marilu Sanchez Ma - 12/09/2021 8:58 AM EDT Pt is already scheduled documented in this encounterWexner Medical Center03-29-2022 History of Present illness Narrative* Karen Block RT(R) - 12/03/2021 9:50 AM EDT Radiology Service Progress Note PATIENT NAME: Nick Lopes DATE OF SERVICE: December 03, 2021 TIME: 10:01 AM PATIENT IDENTITY VERIFICATION COMPLETED USING TWO (2) IDENTIFIERS: Name and Date of confirmedby patient verbally. FALL SCREENING: Has the patient had 2 falls in the last year or 1 fall with injury or currently using an Ambulatory Assistive Device (Walker, Cane, Wheelchair, Crutches, etc.)? No PATIENT GENDER DATA: Male PATIENT RELEVANT IMPLANT DATA REVIEWED: Yes RADIOLOGY DEPARTMENT: General X-ray: Exam(s) Completed: Upper Extremity X- Ray(s): Shoulder, AP / TRUE AP / AXILLARY left PERIPHERAL IV DATA: Not applicable SIGNED BY: RT Vargas(R) December 03, 2021 10:01 AM documented in this encounterWexner Medical Center03-25-2022 Miscellaneous Notes* Telephone Encounter - Cynthia Watson - 11/29/2021 11:10 AM EDT Patient has been identified by name and [...] notify patient. Cynthia Watson documented in this encounterWexner Medical Center02-09-2021 History of Present illness Narrative* Karen Block Tech (Rt) - 10/16/2020 11:30 AM EST Radiology Service Progress Note PATIENT NAME: Nick Lopes DATE OF SERVICE: October 16, 2020 TIME: 11:30 AM PATIENT IDENTITY VERIFICATION COMPLETED USING TWO (2) IDENTIFIERS: Name and Date of confirmedby patient verbally. FALL SCREENING: Has the patient had 2 falls in the last year or 1 fall with injury or currently using an Ambulatory Assistive Device (Walker, Cane, Wheelchair, Crutches, etc.)? No PATIENT GENDER DATA: Male PATIENT RELEVANT IMPLANT DATA REVIEWED: Yes RADIOLOGY DEPARTMENT: General X-ray: Exam(s) Completed: Chest X-Ray PERIPHERAL IV DATA: Not applicable SIGNED BY: RT Vargas October 16, 2020 11:30 AM [facility] Narrative* Problem Noted [...] of this encounter (statuses as of 11/29/2021) [facility] of [facility]* Problem Noted [...] of this encounter (statuses as of 12/09/2021) [facility]* Problem Noted [...] of this encounter (statuses as of 12/09/2021) [facility]* Problem Noted [...] of this encounter (statuses as of 12/10/2021) [facility]* Problem Noted [...] of this encounter (statuses as of 2021) [facility] N[facility]ative* Problem Noted [...] of this encounter (statuses as of 01/27/2022) [facility] N[facility]* Problem Noted [...] of this encounter (statuses as of 03/15/2022) [facility]* Problem Noted [...] of this encounter (statuses as of 06/12/2022) [facility]* Problem Noted [...] of this encounter (statuses as of 06/17/2022) [facility]* Problem Noted Date Resolved Date Frequency 06/13/2015 04/23/2018 Urgency of urination 06/13/2015 04/23/2018 Concussion without loss of consciousness 015 04/23/2018 Backache, unspecified 11/11/2012 12/14/2013 Sprain of lumbar region 10/18/2012 12/15/19 14 Thoracic or Lumbosacral Neuritis or Radiculitis, Unspecified 02/23/2009 12/14/2013 Overview: Dr. Hollisn -- epidurals x 3 Summer 2008 Routine General Medical Exam ination at a [facility] 01/02/2009 12/14/2013 Overview: 09/28/06 Pain in joint, pelvic region and thigh 8 01/02/2009 Sprain of lumbar region 06/27/2008 01/03/20 09 Pain in joint, upper arm 06/27/2008 008 Pain in joint, shoulder region 06/27/2008 0 01/02/2009 Other affections of shoulder region, not elsewhere classified 01/27/2007 01/02/2009 documented as of this encounter (statuses as of 06/18/2022) [facility]* Problem Noted [...] of this encounter (statuses as of 06/28/2022) [facility]* Problem Noted [...] of this encounter (statuses as of 07/08/2022) [facility]* Problem Noted [...] of this encounter (statuses as of 08/29/2022) [facility]* Problem Noted [...] of this encounter (statuses as of 10/07/2022) [facility] Problem Noted [...] of this encounter (statuses as of 10/08/2022) [facility]* Problem Noted [...] a Health Care Facility 01/02/2009 12/14/2013 Overview: 1/22/07 Pain in joint, pelvic region and thigh 8 01/02/2009 Sprain of lumbar region 06/27/2008 01/03/20 09 Pain in joint, upper arm 06/27/2008 008 Pain in joint, shoulder region 06/27/2008 0 01/02/2009 Other affections of shoulder region, not elsewhere classified 01/27/2007 01/02/2009 documented as of this encounter (statuses as of 10/30/2022) [facility]* Problem Noted [...] of this encounter (statuses as of 11/08/2022) [facility]* Problem Noted [...] of this encounter (statuses as of 11/18/2022) [facility]* Problem Noted [...] of this encounter (statuses as of 11/24/2022) [facility]* Problem Noted [...] of this encounter (statuses as of 03/18/2023) [facility]* Problem Noted [...] of this encounter (statuses as of 03/30/2023) [facility] Problem Noted [...] of this encounter (statuses as of 07/04/2023) [facility]* Problem Noted [...] of this encounter (statuses as of 07/20/2023) [facility]* Problem Noted [...] shoulder region, not elsewhere classified 01/27/2007 01/02/2009 Overweight 09/25/2023 documented as of this encounter (statuses as of 10/08/2023) [facility]* Problem Noted [...] shoulder region, not elsewhere classified 01/27/2007 01/02/2009 Overweight 09/25/2023 documented as of this encounter (statuses as of 10/19/2023) [facility]* Problem Noted [...] shoulder region, not elsewhere classified 01/27/2007 01/02/2009 Overweight 09/25/2023 documented as of this encounter (statuses as of 10/20/2023) [facility]* Problem Noted [...] shoulder region, not elsewhere classified 01/27/2007 01/02/2009 Overweight 09/25/2023 documented as of this encounter (statuses as of 10/21/2023) [facility]* Problem Noted [...] shoulder region, not elsewhere classified 01/27/2007 01/02/2009 Overweight 09/25/2023 documented as of this encounter (statuses as of 10/21/2023) [facility]* Problem Noted Date Diagnosed Date Resolved Date Frequency 06/13/2015 04/23/2018 Urgency of urination 06/13/2015 018 Concussion without loss of consciousness 05/08/2015 04/23/2018 Backache, unspecified 11/11/20122013 Sprain of lumbar region 10/18/2012 04/0 05/2014 Thoracic or Lumbosacral Neur itis or [...] shoulder region, not elsewhere classified 01/27/2007 01/02/2009 Overweight 09/25/2023 documented as of this encounter (statuses as of 10/21/2023) [facility]* Problem Noted [...] shoulder region, not elsewhere classified 01/27/2007 01/02/2009 Overweight 09/25/2023 documented as of this encounter (statuses as of 10/24/2023) [facility] N[facility]* Problem Noted [...] shoulder region, not elsewhere classified 01/27/2007 01/02/2009 Overweight 09/25/2023 documented as of this encounter (statuses as of 10/26/2023) [facility]* Problem Noted [...] shoulder region, not elsewhere classified 01/27/2007 01/02/2009 Overweight 09/25/2023 documented as of this encounter (statuses as of 10/27/2023) [facility]* Problem Noted [...] shoulder region, not elsewhere classified 01/27/2007 01/02/2009 Overweight 09/25/2023 documented as of this encounter (statuses as of 10/30/2023) [facility]* Problem Noted Date Diagnosed Date Resolved Date Frequency 06/13/2015 04/23/2018 Urgency of urination 06/13/2015 018 Concussion without loss of consciousness 05/08/2015 04/23/2018 Backache, unspecified 11/11/20122013 Sprain of lumbar region 10/18/201205/2014 Thoracic or Lumbosacral Neur itis or Radiculitis, Unspecified 02/23/2009 12/14/2013 Overview: Dr. Hollins -- epidurals x 3 Summer 2008 Routine General Medical Exam ination at a [facility] 01/02/2009 12/14/2013 Overview: 09/28/06 Pain in joint, pelvic region and thigh 06/27/2008 01/02/2009 Sprain of lumbar region 06/27/200812/07 Pain in joint, upper arm 06/27/2008 Pain in joint, shoulder region 06/27/2008 01/02/2009 Other affections of shoulder region, not elsewhere classified 01/27/2007 01/02/2009 Overweight 09/25/2023 documented as of this encounter (statuses as of 12/07/2023) [facility] Diagnosis Essential hypertension, benign Disorder of thyroid Unspecified disorder of thyroid Hyperlipidemia, unspecified hyperlipidemia type [facility] Diagnosis Prepatellar bursitis of right knee- Primary Prepatellar bursitis Hypothyroidism, unspecified type Controlled type 2 diabetes mellitus without complication, without long-term current use of insulin (HCC) Hyperlipidemia, unspecified hyperlipidemia type Essential hypertension, benign [facility] Hyperlipidemia, unspecified hyperlipidemia type- Primary Hypothyroidism, unspecified type Controlled type 2 diabetes mellitus without complication, without long-term current use of insulin (HCC) [facility] Diagnosis Essential hypertension, benign Hyperlipidemia, unspecified hyperlipidemia type Disorder of thyroid Unspecified disorder of thyroid Controlled type 2 diabetes mellitus without complication, without long-term current use of insulin (HCC) [facility] Diagnosis Wellness examination- Primary Essential hypertension, [...] No-show for appointment [facility] Diagnosis JOSIAH (obstructive sleep apnea)- Primary Obstructive sleep apnea (adult) (pediatric) [facility] Diagnosis Wellness examination- Primary Essential hypertension, [...] in cervical region [facility] Diagnosis Controlled type 2 diabetes mellitus without complication, without long-term current use of insulin (HCC)- Primary [facility] Diagnosis Acute upper respiratory infection- Primary Acute upper respiratory infections of unspecified site [facility] Diagnosis Chest pain, unspecified type- Primary Essential hypertension, benign Controlled type 2 diabetes mellitus without complication, without long-term current use of insulin (HCC) Hypothyroidism, acquired Unspecified hypothyroidism Syncope, unspecified syncope type Family history of heart disease Family history of other cardiovascular diseases [facility] Diagnosis Onset Date Resolution Status Chest pain acute Syncope and collapse acute Essential hypertension chron ic Hyperlipidemia chronic Obesity chronic JOSIAH (obstructive sleep apnea) chronic Tobacco dependence chronic Type 2 diabetes mellitus chr onic CAD (coronary artery disease) acute Essential hypertension chron ic Hyperlipidemia chronic Obesity chronic JOSIAH (obstructive sleep apnea) chronic Type 2 diabetes mellitus chr onic [facility] Work Phone: Evaluation note* Diagnosis Controlled type 2 diabetes mellitus without complication, without long-term current use of insulin (HCC) documented in this encounter [facility] noteNo assessment information [facility]: [facility]* Diagnosis Onset Date Resolution Status Infection due to ESBL-producing Escherichia coli acute Pyelonephritis acute [facility] Work Phone: Evaluation note* Diagnosis Sepsis due to Escherichia coli without acute organ dysfunction (HCC)- Primary Acute pyelonephritis Acute pyelonephritis without lesion of renal medullary necrosis Essential hypertension, benign Controlled type 2 diabetes mellitus without complication, without long-term current use of insulin (HCC) documented in this encounter [facility] note* Diagnosis Essential hypertension, benign Disorder of thyroid Unspecified disorder of thyroid documented in this encounter [facility] note* Diagnosis Acute pyelonephritis Acute pyelonephritis without lesion of renal medullary necrosis Unspecified Escherichia coli (E. coli) as the cause of diseases classified elsewhere documented in this encounter [facility] Work Phone: Evaluation note* Diagnosis Hyperglycemia- Primary Other abnormal glucose Abdominal pain, unspecified abdominal location Lactic acidosis Acidosis documented in this encounter [facility] Work Phone: Evaluation note* Diagnosis Onset Date Resolution Status Chest pain acute Diabetes acute History of coronary artery disease [facility] Work Phone: Evaluation note* Diagnosis Chest pain, unspecified type- Primary C. difficile colitis Intestinal infection due to clostridium difficile documented in this encounter [facility] note* Diagnosis C. difficile colitis- Primary Intestinal infection due to clostridium difficile documented in this encounter [facility] note* Diagnosis Anemia, unspecified type- Primary documented in this encounter [facility] note* Diagnosis Colitis- Primary Other and unspecified noninfectious gastroenteritis and colitis Diarrhea, unspecified type Colitis- Primary Other and unspecified noninfectious gastroenteritis and colitis Colitis Other and unspecified noninfectious gastroenteritis and colitis documented in this encounter [facility] note* Diagnosis C. difficile colitis- Primary Intestinal infection due to clostridium difficile documented in this encounter [facility] note* Diagnosis Controlled type 2 diabetes mellitus without complication, without long-term current use of insulin (HCC) documented in this encounter [facility] note* Diagnosis Essential hypertension, benign- Primary Hyperlipidemia, unspecified hyperlipidemia type Controlled type 2 diabetes mellitus without complication, without long-term current use of insulin (HCC) Hypothyroidism, unspecified type S/P PTCA (percutaneous transluminal coronary angioplasty) Postsurgical percutaneous transluminal coronary angioplasty status Elevated liver enzymes Other nonspecific abnormal serum enzyme levels Status post insertion of drug-eluting stent into left anterior descending (LAD) artery JOSIAH (obstructive sleep apnea) Obstructive sleep apnea (adult) (pediatric) Screening for prostate cancer Special screening for malignant neoplasm of prostate Screening for colon cancer Special screening for malignant neoplasms, colon Acute pain of left knee Edema of leg Edema Pain of left lower extremity Ingrown toenail Ingrowing nail History of Clostridioides difficile colitis Acute pain of left knee Pain of left lower extremity documented in this encounter [facility] note* Diagnosis Acute pain of left knee Edema of leg Edema Pain of left lower extremity documented in this encounter [facility] note* Diagnosis Ingrowing toenail with infection- Primary Ingrowing nail documented in this encounter [facility] note* Diagnosis Closed nondisplaced fracture of distal phalanx of right great toe, initial encounter- Primary documented in this encounter [facility] note* Diagnosis Folate deficiency- Primary Other B-complex deficiencies documented in this encounter [facility] note* Diagnosis Open wound of toe, initial encounter- Primary documented in this encounter [facility] note* Diagnosis Acute pain of left knee Pain of left lower extremity documented in this encounter [facility] note* Diagnosis Closed non-physeal fracture of phalanx of right great toe, unspecified phalanx, initial encounter- Primary [facility] Diagnosis Open wound of toe, initial encounter [facility] Acute pain of left knee- Primary [facility] Diagnosis Knee pain, unspecified chronicity, unspecified laterality- Primary [facility] Diagnosis Medial knee pain, left- Primary [facility] Diagnosis Acute pain of left knee Pain of left lower extremity [facility] Diagnosis Ingrowing toenail with infection Ingrowing nail [facility] Chronic pain of left knee- Primary Pain in joint, lower leg [facility] Diagnosis Folate deficiency Other B-complex deficiencies [facility] Diagnosis Chronic pain of left knee Pain in joint, lower leg [facility] Diagnosis Chronic left shoulder pain Pain in joint, shoulder region [facility] Diagnosis Disorder of thyroid Unspecified disorder of thyroid [facility] Diagnosis Primary osteoarthritis of left knee- Primary Primary localized osteoarthrosis, lower leg [facility] Diagnosis JOSIAH (obstructive sleep apnea)- Primary Obstructive sleep apnea (adult) (pediatric) Encounter for immunization Need for other specified prophylactic vaccination against single bacterial disease Hyperlipidemia, unspecified hyperlipidemia type Essential hypertension, benign Family history of heart disease Family history of other cardiovascular diseases Folate deficiency Other B-complex deficiencies Hypothyroidism, unspecified type Controlled type 2 diabetes mellitus without complication, without long-term current use of insulin (HCC) Screening for colon cancer Special screening for malignant neoplasms, colon [facility] Diagnosis Leukocytosis, unspecified type- Primary Controlled type 2 diabetes mellitus without complication, without long-term current use of insulin (HCC) [facility] Essential hypertension, benign [facility] Diagnosis Primary osteoarthritis of left knee- Primary Primary localized osteoarthrosis, lower leg [facility] Diagnosis Pain in both knees, unspecified chronicity- Primary documented in this encounter [facility] note* Diagnosis Primary osteoarthritis of left knee- Primary Primary localized osteoarthrosis, lower leg documented in this encounter [facility] note* Diagnosis Primary osteoarthritis of left knee- Primary Primary localized osteoarthrosis, lower leg documented in this encounter [facility] note* Diagnosis Primary osteoarthritis of left knee- Primary Primary localized osteoarthrosis, lower leg documented in this encounter [facility] note* Diagnosis Pain in both knees, unspecified chronicity documented in this encounter [facility] note* Diagnosis Osteoarthritis of left knee, unspecified osteoarthritis type- Primary Central sleep apnea Unspecified sleep apnea Essential hypertension, benign Hyperlipidemia, unspecified hyperlipidemia type Status post insertion of drug-eluting stent into left anterior descending (LAD) artery Coronary artery disease involving 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 JOSIAH (obstructive sleep apnea) Obstructive sleep apnea (adult) (pediatric) Hypothyroidism, unspecified type Obesity, Class III, BMI 40-49.9 (morbid obesity) ([facility]) Morbid obesity Controlled type 2 diabetes mellitus without complication, without long-term current use of insulin ([facility]) documented in this encounter [facility] note* Diagnosis Osteoarthritis of left knee, unspecified osteoarthritis type- Primary Controlled type 2 diabetes mellitus without complication, without long-term current use of insulin ([facility]) documented in this encounter [facility] note* Diagnosis Folate deficiency Other B-complex deficiencies Essential hypertension, benign documented in this encounter [facility] note* Diagnosis Hypoglycemia- Primary Hypoglycemia, unspecified Dizziness Dizziness and giddiness documented in this encounter [facility] note* Diagnosis Loose left total knee arthroplasty (HCC)- Primary documented in this encounter [facility] note* Diagnosis S/P total knee arthroplasty, left- Primary Loose left total knee arthroplasty (HCC) documented in this encounter [facility] note* Diagnosis S/P total knee arthroplasty, left- Primary documented in this encounter [facility] note* Diagnosis S/P total knee arthroplasty, left- Primary documented in this encounter [facility] note* Diagnosis S/P total knee arthroplasty, left- Primary documented in this encounter [facility] note* Diagnosis S/P total knee arthroplasty, left- Primary documented in this encounter [facility] note* Diagnosis Disorder of thyroid Unspecified disorder of thyroid documented in this encounter [facility] of Present illness Narrative* Patient demos increased endurance and decreased pain throughout. * Patient was able to complete today's treatment with some difficulty. [facility] Work Phone: History of Present illness Narrative* Patient demos increased endurance and decreased pain this date. Patient tolerating all exercises well. * Patient was able to complete today's treatment with some difficulty. [facility] Work Phone: Hospital Discharge instructions Additional Instructions Plenty of fluids and rest. Increase your diet slowly as tolerated. Zofran as needed for nausea. You may swallow it or let it dissolve in your tongue. Follow-up with your doctor if not improving or return if feeling worse.[facility] Work Phone: Reason for referral (narrative)* Diagnostic Procedure Only (Urgent) - Closed Specialty Diagnoses / Procedures Referred By Contac t Referred To Contact US IMAGING Diagnoses Acute pain of left knee Edema of leg Pain of left lower extremity Procedures US DVT LOWER LEFT DUP-SCAN XTR VEINS UNILATERAL/LIMITED STUDY Ginger Lugo MD [address] [place] [address] [place] [address] Referral ID Status Reason Start Date Expiration Date V isits Requested Visits Authorized [id number] Closed Auto-Generate d Referral 03/28/2024 04/27/2025 1 [facility] (narrative[facility] Diagnostic Procedure Only (Routine) - Closed Specialty Diagnoses / Procedures Referred By Contac t Referred To Contact XR IMAGING Diagnoses Ingrowing toenail with infection Procedures XR TOE AP/LAT/OBL RIGHT RADEX TOE MINIMUM 2 VIEWS Sam Beasley [address] [place] [address] [place] [address] Referral ID Status Reason Start Date Expiration Date V isits Requested Visits Authorized [id number] Closed Auto-Generate d Referral 03/28/2024 04/27/2025 1 1 [facility] for referral (narrative)* Diagnostic Procedure Only (Routine) - New Request Specialty Diagnoses / Procedures Referred By Contac t Referred To Contact XR IMAGING Diagnoses Open wound of toe, initial encounter Procedures XR TOE AP/LAT/OBL RIGHT RADEX TOE MINIMUM 2 VIEWS Sam Beasley[address] [place] [address] [place] [address] Referral ID Status Reason Start Date Expiration Date Visits Requested Visits Authorized [id number] New Request Auto-Generat ed Referral 04/01/2024 05/01/2025 1 1 [facility] for referral (narrative)* Diagnostic Procedure Only (Routine) - New Request Specialty Diagnoses / Procedures Referred By Contac t Referred To Contact XR IMAGING Diagnoses Closed non-physeal fracture of phalanx of right great toe, unspecified phalanx, initial encounter Procedures XR TOE AP/LAT/OBL RIGHT RADEX TOE MINIMUM 2 VIEWS Sam [address] [place] [address] [place] [address] Referral ID Status Reason Start Date Expiration Date Visits Requested Visits Authorized [id number] New Request Auto-Generat ed Referral 04/14/2024 05/14/2025 1 1 [facility] for referral (narrative)* Diagnostic Procedure Only (Routine) - Closed Specialty Diagnoses / Procedures Referred By Contac t Referred To Contact XR IMAGING Diagnoses Open wound of toe, initial encounter Procedures XR TOE AP/LAT/OBL RIGHT RADEX TOE MINIMUM 2 VIEWS Sam [address] [place] [address] [place] [address] Referral ID Status Reason Start Date Expiration Date V isits Requested Visits Authorized [id number] Closed Auto-Generate d Referral 04/01/2024 05/01/2025 1 1 [facility] for referral (narrative)* Diagnostic Procedure Only (Routine) - Closed Specialty Diagnoses / Procedures Referred By Contac t Referred To Contact XR IMAGING Diagnoses Pain of left lower extremity Procedures XR TIBIA FIBULA 2V AP/LAT LEFT RADIOLOGIC EXAMINATION TIBIA & FIBULA 2 VIEWS Ginger Lugo MD [address] [place] [address] [place] [address] Referral ID Status Reason Start Date Expiration Date V isits Requested Visits Authorized [id number] Closed Auto-Generate d Referral 03/28/2024 04/27/2025 1 1 * Diagnostic Procedure Only (Routine) - Closed Specialty Diagnoses / Procedures Referred By Contac t Referred To Contact XR IMAGING Diagnoses Acute pain of left knee Pain of left lower extremity Procedures XR KNEE GENERAL 4V AP BOTH/PA BOTH/LAT/MERC LEFT RADIOLOGIC EXAM KNEE COMPLETE 4/MORE VIEWS Ginger Lugo MD [address] [place] [address] [place] [address] Referral ID Status Reason Start Date Expiration Date V isits Requested Visits Authorized [id number] Closed Auto-Generate d Referral 03/28/2024 04/27/2025 1 1 [facility] for referral (narrative)* Diagnostic Procedure Only (Routine) - Closed Specialty Diagnoses / Procedures Referred By Contac t Referred To Contact XR IMAGING Diagnoses Ingrowing toenail with infection Procedures XR TOE AP/LAT/OBL RIGHT RADEX TOE MINIMUM 2 VIEWS Sam Beasley [address] [place] [address] [place] [address] Referral ID Status Reason Start Date Expiration Date V isits Requested Visits Authorized [id number] Closed Auto-Generate d Referral 03/28/2024 04/27/2025 1 1 [facility] for referral (narrative)* Diagnostic Procedure Only (Routine) - Closed Specialty Diagnoses / Procedures Referred By Contac t Referred To Contact XR IMAGING Diagnoses Chronic left shoulder pain Procedures XR SHOULDER GENERAL 3V OR MORE AP/TRUE AP/OTHER LEFT RADEX SHOULDER COMPLETE MINIMUM 2 VIEWS Nadege Christine PA-C [address] [place] [address] [place] [address] Referral ID Status Reason Start Date Expiration Date V isits Requested Visits Authorized [id number] Closed Auto-Generate d Referral 12/03/2021 01/02/2023 1 1 [facility] for referral (narrative)* Diagnostic Procedure Only (Routine) - Authorized Specialty Diagnoses / Procedures Referred By Contac t Referred To Contact XR IMAGING Diagnoses Pain in both knees, unspecified chronicity Procedures XR LEG FRONTAL HIP TO ANKLE MECHANICAL AXIS BONE LENGTH STUDIES Jose Loo MD [address] [place] [address] [place] [address] Referral ID Status Reason Start Date Expiration Date Visits Requested Visits Authorized [id number] Authorized Auto-Generat ed Referral 09/15/2024 10/15/2025 1 1 * Diagnostic Procedure Only (Routine) - Authorized Specialty Diagnoses / Procedures Referred By Contac t Referred To Contact XR IMAGING Diagnoses Pain in both knees, unspecified chronicity Procedures XR KNEE GENERAL 4V AP BOTH/PA BOTH/LAT/MERC LEFT RADIOLOGIC EXAM KNEE COMPLETE 4/MORE VIEWS Jose Loo MD [address] [place] [address] [place] [address] Referral ID Status Reason Start Date Expiration Date Visits Requested Visits Authorized [id number] Authorized Auto-Generat ed Referral 09/15/2024 10/15/2025 1 1 [facility] for referral (narrative)* Diagnostic Procedure Only (Routine) - Closed Specialty Diagnoses / Procedures Referred By Contac t Referred To Contact XR IMAGING Diagnoses Pain in both knees, unspecified chronicity Procedures XR LEG FRONTAL HIP TO ANKLE MECHANICAL AXIS BONE LENGTH STUDIES Jose Loo MD [address] [place] [address] [place] [address] Referral ID Status Reason Start Date Expiration Date V isits Requested Visits Authorized [id number] Closed Auto-Generate d Referral 09/15/2024 10/15/2025 1 1 * Diagnostic Procedure Only (Routine) - Closed Specialty Diagnoses / Procedures Referred By Contac t Referred To Contact XR IMAGING Diagnoses Pain in both knees, unspecified chronicity Procedures XR KNEE GENERAL 4V AP BOTH/PA BOTH/LAT/MERC LEFT RADIOLOGIC EXAM KNEE COMPLETE 4/MORE VIEWS Jose Loo MD [address] [place] [address] [place] [address] Referral ID Status Reason Start Date Expiration Date V isits Requested Visits Authorized [id number] Closed Auto-Generate d Referral 09/15/2024 10/15/2025 1 1 [facility] for visit Narrative* Diagnostic Procedure Only (Urgent) - Closed Specialty Diagnoses / Procedures Referred By Contac t Referred To Contact US IMAGING Diagnoses Acute pain of left knee Edema of leg Pain of left lower extremity Procedures US DVT LOWER LEFT DUP-SCAN XTR VEINS UNILATERAL/LIMITED STUDY Ginger Lugo MD [address] [place] [address] [place] [address] Referral ID Status Reason Start Date Expiration Date V isits Requested Visits Authorized [id number] Closed Auto-Generate d Referral 03/28/2024 04/27/2025 1 1 [facility] for visit Narrative* Diagnostic Procedure Only (Routine) - Closed Specialty Diagnoses / Procedures Referred By Contac t Referred To Contact XR IMAGING Diagnoses Open wound of toe, initial encounter Procedures XR TOE AP/LAT/OBL RIGHT RADEX TOE MINIMUM 2 VIEWS Sam Beasley [address] [place] [address] [place] [address] Referral ID Status Reason Start Date Expiration Date V isits Requested Visits Authorized [id number] Closed Auto-Generate d Referral 04/01/2024 05/01/2025 1 1 [facility] for visit Narrative* Diagnostic Procedure Only (Routine) - Closed Specialty Diagnoses / Procedures Referred By Contac t Referred To Contact XR IMAGING Diagnoses Pain of left lower extremity Procedures XR TIBIA FIBULA 2V AP/LAT LEFT RADIOLOGIC EXAMINATION TIBIA & FIBULA 2 VIEWS Ginger Lugo MD [address] [place] [address] [place] [address] Referral ID Status Reason Start Date Expiration Date V isits Requested Visits Authorized [id number] Closed Auto-Generate d Referral 03/28/2024 04/27/2025 1 1 [facility] for visit Narrative* Diagnostic Procedure Only (Routine) - Closed Specialty Diagnoses / Procedures Referred By Contac t Referred To Contact XR IMAGING Diagnoses Ingrowing toenail with infection Procedures XR TOE AP/LAT/OBL RIGHT RADEX TOE MINIMUM 2 VIEWS Sam Beasley [address] [place] [address] [place] [address] Referral ID Status Reason Start Date Expiration Date V isits Requested Visits Authorized [id number] Closed Auto-Generate d Referral 03/28/2024 04/27/2025 1 1 [facility] for visit Narrative* Diagnostic Procedure Only (Routine) - Closed Specialty Diagnoses / Procedures Referred By Contac t Referred To Contact XR IMAGING Diagnoses Chronic left shoulder pain Procedures XR SHOULDER GENERAL 3V OR MORE AP/TRUE AP/OTHER LEFT RADEX SHOULDER COMPLETE MINIMUM 2 VIEWS Nadege Christine PA-C [address] [place] [address] [place] [address] Referral ID Status Reason Start Date Expiration Date V isits Requested Visits Authorized [id number] Closed Auto-Generate d Referral 12/03/2021 01/02/2023 1 1 [facility] for visit Narrative* Diagnostic Procedure Only (Routine) - Closed Specialty Diagnoses / Procedures Referred By Contac t Referred To Contact XR IMAGING Diagnoses Pain in both knees, unspecified chronicity Procedures XR KNEE GENERAL 4V AP BOTH/PA BOTH/LAT/MERC LEFT RADIOLOGIC EXAM KNEE COMPLETE 4/MORE VIEWS Jose Loo MD [address] [place] [address] [place] [address] Referral ID Status Reason Start Date Expiration Date V isits Requested Visits Authorized [id number] Closed Auto-Generate d Referral 09/15/2024 10/15/2025 1 1 [facility] Summary Purpose Family History No Family History Records Found Relationship Condition Age at Onset Recorded Date/T alyssa father Myocardial infarction 45 mother Hypertension Unknown Mixed hyperlipidemia Unknown grandmother Congestive heart failure Unknown Unknown Family Member Name Dates Details No [...] FoundDocuments on File Type Date Recorded 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 Expl 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 Advance Directive(s) 01/26/2022 2:25 PM Advance Directive Response Recorded Date/ Time Advance Directives No October 9:11am Living Will No October 24, 2 023 3:04pm Power of Rubber Roller Grinder No October 24, 2022 3:04pm Advance Directive Response Recorded Date/ Time Advance Directives No October 10:11am Living Will No March 04, 2023 10:32pm Power of Rubber Roller Grinder No March 04 10:32pm Advance Directive Response Recorded Date/ Time Advance Directives No October 10:11am Living Will No March 17, 2023 8:40pm Power of Rubber Roller Grinder No March 17 8:40pm Advance Directive Response Recorded Date/ Time Advance Directives No October 10:11am Living Will No March 18, 2023 2:03am Power of Rubber Roller Grinder No March 18 2:03am Advance Directive Response Recorded Date/ Time Advance Directives No October 06, 2023 12:13pm Living Will No October 07 8:48am Power of Rubber Roller Grinder No October 07, 2023 8:48am Advance Directive Response Recorded Date/ Time Advance Directives No October 06, 2023 12:13pm Living Will No October 07 11:39am Power of Rubber Roller Grinder No October 07, 2023 11:39am Reason for Referral Specialty Diagnoses / Procedures Referred By Contac t Referred To Contact Ophthalmology Diagnoses Controlled type 2 diabetes mellitus without complication, without long-term current use of insulin (HCC) Wellness examination Procedures CONSULT TO OPHTHALMOLOGY OFFICE/OUTPATIENT [facility] 60-74 MINUTES Nadege Christine PA-C [address] [place] [address] Referral ID Status Reason Start Date Expiration Date Visits Requested Visits Authorized [id number] Pending Review PCP Requested Referral 2 06/17/2023 1 1 Specialty Diagnoses / Procedures Referred By Contac t Referred To Contact Cardiology Diagnoses Chest pain, unspecified type Syncope, unspecified syncope type Family history of heart disease Procedures CONSULT TO CARDIOLOGY OFFICE/OUTPATIENT [facility] 60-74 MINUTES Ginger Lugo MD [address] [place] [address] Referral ID Status Reason Start Date Expiration Date Visits Requested Visits Authorized [id number] Pending Review PCP Requested Referral 10/08/2022 10/08/2023 1 1 Specialty Diagnoses / Procedures Referred By Contac t Referred To Contact Gastroenterology Diagnoses C. difficile colitis Procedures CONSULT TO GASTROENTEROLOGY OFFICE/OUTPATIENT [facility] 60 MINUTES Nuha Mosquera APRN.CNS [address] [place] [address] Referral ID Status Reason Start Date Expiration Date Visits Requested Visits Authorized [id number] Authorized PCP Requested Referral 10/16/2023 10/15/2024 1 1 Specialty Diagnoses / Procedures Referred By Contac t Referred To Contact Orthopedics Diagnoses Acute pain of left knee Pain of left lower extremity Procedures CONSULT TO ORTHOPAEDICS OFFICE/OUTPATIENT [facility] 60 MINUTES Ginger Lugo MD [address] [place] [address] Referral ID Status Reason Start Date Expiration Date Visits Requested Visits Authorized [id number] Authorized PCP Requested Referral 03/28/2024 03/28/2025 1 1 Specialty Diagnoses / Procedures Referred By Contac t Referred To Contact XR IMAGING Diagnoses Pain of left lower extremity Procedures XR TIBIA FIBULA 2V AP/LAT LEFT RADIOLOGIC EXAMINATION TIBIA & FIBULA 2 VIEWS Ginger Lugo MD [address] [place] [address] [place] [address] Referral ID Status Reason Start Date Expiration Date V isits Requested Visits Authorized [id number] Closed Auto-Generate d Referral 03/28/2024 04/27/2025 1 1 Specialty Diagnoses / Procedures Referred By Contac t Referred To Contact XR IMAGING Diagnoses Acute pain of left knee Pain of left lower extremity Procedures XR KNEE GENERAL 4V AP BOTH/PA BOTH/LAT/MERC LEFT RADIOLOGIC EXAM KNEE COMPLETE 4/MORE VIEWS Ginger Lugo MD [address] [place] [address] [place] [address] Referral ID Status Reason Start Date Expiration Date V isits Requested Visits Authorized [id number] Closed Auto-Generate d Referral 03/28/2024 04/27/2025 1 1 Specialty Diagnoses / Procedures Referred By Contac t Referred To Contact US IMAGING Diagnoses Acute pain of left knee Edema of leg Pain of left lower extremity Procedures US DVT LOWER LEFT DUP-SCAN XTR VEINS UNILATERAL/LIMITED STUDY Ginger Lugo MD [address] [place] [address] [place] [address] Referral ID Status Reason Start Date Expiration Date Visits Requested Visits Authorized [id number] Authorized Auto-Generat ed Referral 03/28/2024 04/27/2025 1 1 Specialty Diagnoses / Procedures Referred By Contac t Referred To Contact Gastroenterology Diagnoses Screening for colon cancer Procedures CONSULT TO GASTROENTEROLOGY OFFICE/OUTPATIENT [facility] 60 MINUTES Ginger Lugo MD [address] [place] [address] Referral ID Status Reason Start Date Expiration Date Visits Requested Visits Authorized [id number] Authorized PCP Requested Referral 03/28/2024 03/28/2025 1 1 Specialty Diagnoses / Procedures Referred By Contac t Referred To Contact [facility] Diagnoses Chronic pain of left knee Procedures CONSULT TO PHYSICAL THERAPY PHYSICAL THERAPY EVALUATION HIGH COMPLEX 45 MINS Torsten Aviles V, DO [address] [place] [address] [facility] [address] [place] [address] Referral ID Status Reason Start Date Expiration Date Visits Requested Visits Authorized [id number] Pending Review Auto-Generat ed Referral 05/13/2024 05/13/2025 1 1 Specialty Diagnoses / Procedures Referred By Jeremy madrid Referred To Contact MR IMAGING Diagnoses Chronic pain of left knee Procedures MRI KNEE WO IVCON LEFT MRI ANY JT LOWER EXTREM W/O CONTRAST MATRL Torsten Aviles V, DO [address] [place] [address] [place] [address] Referral ID Status Reason Start Date Expiration Date Visits Requested Visits Authorized [id number] New Request Auto-Generat ed Referral 05/13/2024 06/12/2025 1 1 Referral ID Status Reason Start Date Expiration Date V isits Requested Visits Authorized [id number] Closed Auto-Generate d Referral 05/13/2024 06/12/2025 1 1 Chief Complaint and Reason for Visit Chief Complaint Amb Documentation CP, SYNCOPE, FAMILY HX Amb Documentation CHEST PAIN ANGINA SOB ANGINA SOB Reason for Visit Chest pain Syncope and collapse Essential hypertension Hyperlipidemia Obesity JOSIAH (obstructive sleep apnea) Tobacco dependence Type 2 diabetes mellitus CAD (coronary artery disease) Essential hypertension Hyperlipidemia Obesity JOSIAH (obstructive sleep apnea) Type 2 diabetes mellitus Chief Complaint flank N/V Chief Complaint flank N/V PYELONEPHRITIS, SEPSIS Chief Complaint flank N/V PYELONEPHRITIS, SEPSIS PYELONEPHRITIS, SEPSIS PYELONEPHRITIS, SEPSIS PYELONEPHRITIS, SEPSIS PYELONEPHRITIS, SEPSIS Reason for Visit 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 difficile 10/06/2023 10/06/2023 Infection Onset Date Last Indicated Resolved Time C. difficile 10/06/2023 10/06/2023 Additional Source Comments (unrecognized sect ion and content) No Status Records FoundNo Status Records FoundNo Status Records FoundNo Status Records FoundNo Status Records FoundNo Status Records FoundNo Status Records FoundNo Status Records FoundNo Status Records FoundNo Status Records FoundNo Status Records FoundNo Status Records FoundNo Status Records FoundNo Status Records Found INFORMATION SOURCE (unrecogn ized section and content) DATE CREATED AUTHOR 06/04/2018 [facility] DATE CREATED AUTHOR AUTHOR'S ORGANIZ ATION 04/12/2022 [facility] DATE CREATED AUTHOR AUTHOR'S ORGANIZ ATION 04/02/2023 [facility] DATE CREATED AUTHOR AUTHOR'S ORGANIZ ATION 05/07/2023 [facility] DATE CREATED AUTHOR AUTHOR'S ORGANIZ ATION 09/26/2023 [facility] DATE CREATED AUTHOR AUTHOR'S ORGANIZ ATION 11/06/2023 [facility] DATE CREATED AUTHOR AUTHOR'S ORGANIZ ATION 01/18/2024 [facility] DATE CREATED AUTHOR AUTHOR'S ORGANIZ ATION 04/01/2024 [facility] DATE CREATED AUTHOR AUTHOR'S ORGANIZ ATION 09/19/2024 [facility] DATE CREATED AUTHOR AUTHOR'S ORGANIZ ATION 09/22/2024 [facility] DATE CREATED AUTHOR AUTHOR'S ORGANIZ ATION 10/21/2024 [facility] DATE CREATED AUTHOR AUTHOR'S ORGANIZ ATION 01/11/2025 [facility] DATE CREATED AUTHOR AUTHOR'S ORGANIZ ATION 05/28/2025 [facility] DATE CREATED AUTHOR AUTHOR'S ORGANIZ ATION 05/28/2025 [facility] Source Comments (unrecognize d section and content) In the event this informatio n is protected by the Federal Confidentiality of Alcohol and Drug Abuse Patient Records regulations: The Federal rules restrict any use of the information to criminally investigate or prosecute any alcohol or drug abuse patient.[facility] the event this information is protected by the Federal Confidentiality of Alcohol and Drug Abuse Patient Records regulations: The Federal rules restrict any use of the information to criminally investigate or prosecute any alcohol or drug abuse patient.[facility] the event this information is protected by the Federal Confidentiality of Alcohol and Drug Abuse Patient Records regulations: The Federal rules restrict any use of the information to criminally investigate or prosecute any alcohol or drug abuse patient.[facility] the event this information is protected by the Federal Confidentiality of Alcohol and Drug Abuse Patient Records regulations: The Federal rules restrict any use of the information to criminally investigate or prosecute any alcohol or drug abuse patient.[facility] the event this information is protected by the Federal Confidentiality of Alcohol and Drug Abuse Patient Records regulations: The Federal rules restrict any use of the information to criminally investigate or prosecute any alcohol or drug abuse patient.[facility] Center[facility] the event this information is protected by the Federal Confidentiality of Alcohol and Drug Abuse Patient Records regulations: The Federal rules restrict any use of the information to criminally investigate or prosecute any alcohol or drug abuse patient.[facility] Center[facility] the event this information is protected by the Federal Confidentiality of Alcohol and Drug Abuse Patient Records regulations: The Federal rules restrict any use of the information to criminally investigate or prosecute any alcohol or drug abuse patient.[facility] the event this information is protected by the Federal Confidentiality of Alcohol and Drug Abuse Patient Records regulations: The Federal rules restrict any use of the information to criminally investigate or prosecute any alcohol or drug abuse patient.[facility] the event this information is protected by the Federal Confidentiality of Alcohol and Drug Abuse Patient Records regulations: The Federal rules restrict any use of the information to criminally investigate or prosecute any alcohol or drug abuse patient.[facility] Center[facility] the event this information is protected by the Federal Confidentiality of Alcohol and Drug Abuse Patient Records regulations: The Federal rules restrict any use of the information to criminally investigate or prosecute any alcohol or drug abuse patient.[facility] Center[facility] the event this information is protected by the Federal Confidentiality of Alcohol and Drug Abuse Patient Records regulations: The Federal rules restrict any use of the information to criminally investigate or prosecute any alcohol or drug abuse patient.[facility] Center[facility] the event this information is protected by the Federal Confidentiality of Alcohol and Drug Abuse Patient Records regulations: The Federal rules restrict any use of the information to criminally investigate or prosecute any alcohol or drug abuse patient.[facility] Center[facility] the event this information is protected by the Federal Confidentiality of Alcohol and Drug Abuse Patient Records regulations: The Federal rules restrict any use of the information to criminally investigate or prosecute any alcohol or drug abuse patient.[facility] Center[facility] the event this information is protected by the Federal Confidentiality of Alcohol and Drug Abuse Patient Records regulations: The Federal rules restrict any use of the information to criminally investigate or prosecute any alcohol or drug abuse patient.[facility] Center[facility] the event this information is protected by the Federal Confidentiality of Alcohol and Drug Abuse Patient Records regulations: The Federal rules restrict any use of the information to criminally investigate or prosecute any alcohol or drug abuse patient.[facility] Center[facility] the event this information is protected by the Federal Confidentiality of Alcohol and Drug Abuse Patient Records regulations: The Federal rules restrict any use of the information to criminally investigate or prosecute any alcohol or drug abuse patient.[facility] Center[facility] the event this information is protected by the Federal Confidentiality of Alcohol and Drug Abuse Patient Records regulations: The Federal rules restrict any use of the information to criminally investigate or prosecute any alcohol or drug abuse patient.[facility] Center[facility] the event this information is protected by the Federal Confidentiality of Alcohol and Drug Abuse Patient Records regulations: The Federal rules restrict any use of the information to criminally investigate or prosecute any alcohol or drug abuse patient.[facility] CenterIn the event this information is protected by the Federal Confidentiality of Alcohol and Drug Abuse Patient Records regulations: The Federal rules restrict any use of the information to criminally investigate or prosecute any alcohol or drug abuse patient.[facility] CenterIn the event this information is protected by the Federal Confidentiality of Alcohol and Drug Abuse Patient Records regulations: The Federal rules restrict any use of the information to criminally investigate or prosecute any alcohol or drug abuse patient.[facility] Center[facility] the event this information is protected by the Federal Confidentiality of Alcohol and Drug Abuse Patient Records regulations: The Federal rules restrict any use of the information to criminally investigate or prosecute any alcohol or drug abuse patient.[facility] CenterIn the event this information is protected by the Federal Confidentiality of Alcohol and Drug Abuse Patient Records regulations: The Federal rules restrict any use of the information to criminally investigate or prosecute any alcohol or drug abuse patient.[facility] CenterIn the event this information is protected by the Federal Confidentiality of Alcohol and Drug Abuse Patient Records regulations: The Federal rules restrict any use of the information to criminally investigate or prosecute any alcohol or drug abuse patient.[facility] CenterIn the event this information is protected by the Federal Confidentiality of Alcohol and Drug Abuse Patient Records regulations: The Federal rules restrict any use of the information to criminally investigate or prosecute any alcohol or drug abuse patient.[facility] CenterIn the event this information is protected by the Federal Confidentiality of Alcohol and Drug Abuse Patient Records regulations: The Federal rules restrict any use of the information to criminally investigate or prosecute any alcohol or drug abuse patient.[facility] CenterIn the event this information is protected by the Federal Confidentiality of Alcohol and Drug Abuse Patient Records regulations: The Federal rules restrict any use of the information to criminally investigate or prosecute any alcohol or drug abuse patient.[facility] CenterIn the event this information is protected by the Federal Confidentiality of Alcohol and Drug Abuse Patient Records regulations: The Federal rules restrict any use of the information to criminally investigate or prosecute any alcohol or drug abuse patient.[facility] CenterIn the event this information is protected by the Federal Confidentiality of Alcohol and Drug Abuse Patient Records regulations: The Federal rules restrict any use of the information to criminally investigate or prosecute any alcohol or drug abuse patient.[facility] CenterIn the event this information is protected by the Federal Confidentiality of Alcohol and Drug Abuse Patient Records regulations: The Federal rules restrict any use of the information to criminally investigate or prosecute any alcohol or drug abuse patient.[facility] CenterIn the event this information is protected by the Federal Confidentiality of Alcohol and Drug Abuse Patient Records regulations: The Federal rules restrict any use of the information to criminally investigate or prosecute any alcohol or drug abuse patient.[facility] CenterIn the event this information is protected by the Federal Confidentiality of Alcohol and Drug Abuse Patient Records regulations: The Federal rules restrict any use of the information to criminally investigate or prosecute any alcohol or drug abuse patient.[facility] CenterIn the event this information is protected by the Federal Confidentiality of Alcohol and Drug Abuse Patient Records regulations: The Federal rules restrict any use of the information to criminally investigate or prosecute any alcohol or drug abuse patient.[facility] CenterIn the event this information is protected by the Federal Confidentiality of Alcohol and Drug Abuse Patient Records regulations: The Federal rules restrict any use of the information to criminally investigate or prosecute any alcohol or drug abuse patient.[facility] CenterIn the event this information is protected by the Federal Confidentiality of Alcohol and Drug Abuse Patient Records regulations: The Federal rules restrict any use of the information to criminally investigate or prosecute any alcohol or drug abuse patient.[facility] CenterIn the event this information is protected by the Federal Confidentiality of Alcohol and Drug Abuse Patient Records regulations: The Federal rules restrict any use of the information to criminally investigate or prosecute any alcohol or drug abuse patient.[facility] CenterIn the event this information is protected by the Federal Confidentiality of Alcohol and Drug Abuse Patient Records regulations: The Federal rules restrict any use of the information to criminally investigate or prosecute any alcohol or drug abuse patient.[facility] CenterIn the event this information is protected by the Federal Confidentiality of Alcohol and Drug Abuse Patient Records regulations: The Federal rules restrict any use of the information to criminally investigate or prosecute any alcohol or drug abuse patient.[facility] CenterIn the event this information is protected by the Federal Confidentiality of Alcohol and Drug Abuse Patient Records regulations: The Federal rules restrict any use of the information to criminally investigate or prosecute any alcohol or drug abuse patient.[facility] CenterIn the event this information is protected by the Federal Confidentiality of Alcohol and Drug Abuse Patient Records regulations: The Federal rules restrict any use of the information to criminally investigate or prosecute any alcohol or drug abuse patient.[facility] CenterIn the event this information is protected by the Federal Confidentiality of Alcohol and Drug Abuse Patient Records regulations: The Federal rules restrict any use of the information to criminally investigate or prosecute any alcohol or drug abuse patient.[facility] CenterIn the event this information is protected by the Federal Confidentiality of Alcohol and Drug Abuse Patient Records regulations: The Federal rules restrict any use of the information to criminally investigate or prosecute any alcohol or drug abuse patient.[facility] CenterIn the event this information is protected by the Federal Confidentiality of Alcohol and Drug Abuse Patient Records regulations: The Federal rules restrict any use of the information to criminally investigate or prosecute any alcohol or drug abuse patient.[facility] CenterIn the event this information is protected by the Federal Confidentiality of Alcohol and Drug Abuse Patient Records regulations: The Federal rules restrict any use of the information to criminally investigate or prosecute any alcohol or drug abuse patient.[facility] CenterIn the event this information is protected by the Federal Confidentiality of Alcohol and Drug Abuse Patient Records regulations: The Federal rules restrict any use of the information to criminally investigate or prosecute any alcohol or drug abuse patient.[facility] CenterIn the event this information is protected by the Federal Confidentiality of Alcohol and Drug Abuse Patient Records regulations: The Federal rules restrict any use of the information to criminally investigate or prosecute any alcohol or drug abuse patient.[facility] CenterIn the event this information is protected by the Federal Confidentiality of Alcohol and Drug Abuse Patient Records regulations: The Federal rules restrict any use of the information to criminally investigate or prosecute any alcohol or drug abuse patient.[facility] CenterIn the event this information is protected by the Federal Confidentiality of Alcohol and Drug Abuse Patient Records regulations: The Federal rules restrict any use of the information to criminally investigate or prosecute any alcohol or drug abuse patient.[facility] CenterIn the event this information is protected by the Federal Confidentiality of Alcohol and Drug Abuse Patient Records regulations: The Federal rules restrict any use of the information to criminally investigate or prosecute any alcohol or drug abuse patient.[facility] CenterIn the event this information is protected by the Federal Confidentiality of Alcohol and Drug Abuse Patient Records regulations: The Federal rules restrict any use of the information to criminally investigate or prosecute any alcohol or drug abuse patient.[facility] CenterIn the event this information is protected by the Federal Confidentiality of Alcohol and Drug Abuse Patient Records regulations: The Federal rules restrict any use of the information to criminally investigate or prosecute any alcohol or drug abuse patient.[facility] CenterIn the event this information is protected by the Federal Confidentiality of Alcohol and Drug Abuse Patient Records regulations: The Federal rules restrict any use of the information to criminally investigate or prosecute any alcohol or drug abuse patient.[facility] CenterIn the event this information is protected by the Federal Confidentiality of Alcohol and Drug Abuse Patient Records regulations: The Federal rules restrict any use of the information to criminally investigate or prosecute any alcohol or drug abuse patient.[facility] CenterIn the event this information is protected by the Federal Confidentiality of Alcohol and Drug Abuse Patient Records regulations: The Federal rules restrict any use of the information to criminally investigate or prosecute any alcohol or drug abuse patient.[facility] CenterIn the event this information is protected by the Federal Confidentiality of Alcohol and Drug Abuse Patient Records regulations: The Federal rules restrict any use of the information to criminally investigate or prosecute any alcohol or drug abuse patient.[facility] CenterIn the event this information is protected by the Federal Confidentiality of Alcohol and Drug Abuse Patient Records regulations: The Federal rules restrict any use of the information to criminally investigate or prosecute any alcohol or drug abuse patient.[facility] CenterIn the event this information is protected by the Federal Confidentiality of Alcohol and Drug Abuse Patient Records regulations: The Federal rules restrict any use of the information to criminally investigate or prosecute any alcohol or drug abuse patient.[facility] CenterIn the event this information is protected by the Federal Confidentiality of Alcohol and Drug Abuse Patient Records regulations: The Federal rules restrict any use of the information to criminally investigate or prosecute any alcohol or drug abuse patient.[facility] CenterIn the event this information is protected by the Federal Confidentiality of Alcohol and Drug Abuse Patient Records regulations: The Federal rules restrict any use of the information to criminally investigate or prosecute any alcohol or drug abuse patient.[facility] CenterIn the event this information is protected by the Federal Confidentiality of Alcohol and Drug Abuse Patient Records regulations: The Federal rules restrict any use of the information to criminally investigate or prosecute any alcohol or drug abuse patient.[facility] CenterIn the event this information is protected by the Federal Confidentiality of Alcohol and Drug Abuse Patient Records regulations: The Federal rules restrict any use of the information to criminally investigate or prosecute any alcohol or drug abuse patient.[facility] CenterIn the event this information is protected by the Federal Confidentiality of Alcohol and Drug Abuse Patient Records regulations: The Federal rules restrict any use of the information to criminally investigate or prosecute any alcohol or drug abuse patient.[facility] CenterIn the event this information is protected by the Federal Confidentiality of Alcohol and Drug Abuse Patient Records regulations: The Federal rules restrict any use of the information to criminally investigate or prosecute any alcohol or drug abuse patient.[facility] CenterIn the event this information is protected by the Federal Confidentiality of Alcohol and Drug Abuse Patient Records regulations: The Federal rules restrict any use of the information to criminally investigate or prosecute any alcohol or drug abuse patient.[facility] CenterIn the event this information is protected by the Federal Confidentiality of Alcohol and Drug Abuse Patient Records regulations: The Federal rules restrict any use of the information to criminally investigate or prosecute any alcohol or drug abuse patient.[facility] CenterIn the event this information is protected by the Federal Confidentiality of Alcohol and Drug Abuse Patient Records regulations: The Federal rules restrict any use of the information to criminally investigate or prosecute any alcohol or drug abuse patient.[facility] CenterIn the event this information is protected by the Federal Confidentiality of Alcohol and Drug Abuse Patient Records regulations: The Federal rules restrict any use of the information to criminally investigate or prosecute any alcohol or drug abuse patient.[facility] CenterIn the event this information is protected by the Federal Confidentiality of Alcohol and Drug Abuse Patient Records regulations: The Federal rules restrict any use of the information to criminally investigate or prosecute any alcohol or drug abuse patient.[facility] CenterIn the event this information is protected by the Federal Confidentiality of Alcohol and Drug Abuse Patient Records regulations: The Federal rules restrict any use of the information to criminally investigate or prosecute any alcohol or drug abuse patient.[facility] CenterIn the event this information is protected by the Federal Confidentiality of Alcohol and Drug Abuse Patient Records regulations: The Federal rules restrict any use of the information to criminally investigate or prosecute any alcohol or drug abuse patient.[facility] CenterIn the event this information is protected by the Federal Confidentiality of Alcohol and Drug Abuse Patient Records regulations: The Federal rules restrict any use of the information to criminally investigate or prosecute any alcohol or drug abuse patient.[facility] CenterIn the event this information is protected by the Federal Confidentiality of Alcohol and Drug Abuse Patient Records regulations: The Federal rules restrict any use of the information to criminally investigate or prosecute any alcohol or drug abuse patient.[facility] CenterIn the event this information is protected by the Federal Confidentiality of Alcohol and Drug Abuse Patient Records regulations: The Federal rules restrict any use of the information to criminally investigate or prosecute any alcohol or drug abuse patient.[facility] CenterIn the event this information is protected by the Federal Confidentiality of Alcohol and Drug Abuse Patient Records regulations: The Federal rules restrict any use of the information to criminally investigate or prosecute any alcohol or drug abuse patient.[facility] CenterIn the event this information is protected by the Federal Confidentiality of Alcohol and Drug Abuse Patient Records regulations: The Federal rules restrict any use of the information to criminally investigate or prosecute any alcohol or drug abuse patient.[facility] CenterIn the event this information is protected by the Federal Confidentiality of Alcohol and Drug Abuse Patient Records regulations: The Federal rules restrict any use of the information to criminally investigate or prosecute any alcohol or drug abuse patient.[facility] CenterIn the event this information is protected by the Federal Confidentiality of Alcohol and Drug Abuse Patient Records regulations: The Federal rules restrict any use of the information to criminally investigate or prosecute any alcohol or drug abuse patient.[facility] CenterIn the event this information is protected by the Federal Confidentiality of Alcohol and Drug Abuse Patient Records regulations: The Federal rules restrict any use of the information to criminally investigate or prosecute any alcohol or drug abuse patient.[facility]In the event this information is protected by the Federal Confidentiality of Alcohol and Drug Abuse Patient Records regulations: The Federal rules restrict any use of the information to criminally investigate or prosecute any alcohol or drug abuse patient.[facility] CenterIn the event this information is protected by the Federal Confidentiality of Alcohol and Drug Abuse Patient Records regulations: The Federal rules restrict any use of the information to criminally investigate or prosecute any alcohol or drug abuse patient.[facility] CenterIn the event this information is protected by the Federal Confidentiality of Alcohol and Drug Abuse Patient Records regulations: The Federal rules restrict any use of the information to criminally investigate or prosecute any alcohol or drug abuse patient.[facility] CenterIn the event this information is protected by the Federal Confidentiality of Alcohol and Drug Abuse Patient Records regulations: The Federal rules restrict any use of the information to criminally investigate or prosecute any alcohol or drug abuse patient.[facility]In the event this information is protected by the Federal Confidentiality of Alcohol and Drug Abuse Patient Records regulations: The Federal rules restrict any use of the information to criminally investigate or prosecute any alcohol or drug abuse patient.[facility]In the event this information is protected by the Federal Confidentiality of Alcohol and Drug Abuse Patient Records regulations: The Federal rules restrict any use of the information to criminally investigate or prosecute any alcohol or drug abuse patient.[facility]In the event this information is protected by the Federal Confidentiality of Alcohol and Drug Abuse Patient Records regulations: The Federal rules restrict any use of the information to criminally investigate or prosecute any alcohol or drug abuse patient.[facility]In the event this information is protected by the Federal Confidentiality of Alcohol and Drug Abuse Patient Records regulations: The Federal rules restrict any use of the information to criminally investigate or prosecute any alcohol or drug abuse patient.[facility] CenterIn the event this information is protected by the Federal Confidentiality of Alcohol and Drug Abuse Patient Records regulations: The Federal rules restrict any use of the information to criminally investigate or prosecute any alcohol or drug abuse patient.[facility] CenterIn the event this information is protected by the Federal Confidentiality of Alcohol and Drug Abuse Patient Records regulations: The Federal rules restrict any use of the information to criminally investigate or prosecute any alcohol or drug abuse patient.[facility] CenterIn the event this information is protected by the Federal Confidentiality of Alcohol and Drug Abuse Patient Records regulations: The Federal rules restrict any use of the information to criminally investigate or prosecute any alcohol or drug abuse patient.[facility] CenterIn the event this information is protected by the Federal Confidentiality of Alcohol and Drug Abuse Patient Records regulations: The Federal rules restrict any use of the information to criminally investigate or prosecute any alcohol or drug abuse patient.[facility] CenterIn the event this information is protected by the Federal Confidentiality of Alcohol and Drug Abuse Patient Records regulations: The Federal rules restrict any use of the information to criminally investigate or prosecute any alcohol or drug abuse patient.[facility] CenterIn the event this information is protected by the Federal Confidentiality of Alcohol and Drug Abuse Patient Records regulations: The Federal rules restrict any use of the information to criminally investigate or prosecute any alcohol or drug abuse patient.[facility] CenterIn the event this information is protected by the Federal Confidentiality of Alcohol and Drug Abuse Patient Records regulations: The Federal rules restrict any use of the information to criminally investigate or prosecute any alcohol or drug abuse patient.[facility]In the event this information is protected by the Federal Confidentiality of Alcohol and Drug Abuse Patient Records regulations: The Federal rules restrict any use of the information to criminally investigate or prosecute any alcohol or drug abuse patient.[facility]In the event this information is protected by the Federal Confidentiality of Alcohol and Drug Abuse Patient Records regulations: The Federal rules restrict any use of the information to criminally investigate or prosecute any alcohol or drug abuse patient.[facility]In the event this information is protected by the Federal Confidentiality of Alcohol and Drug Abuse Patient Records regulations: The Federal rules restrict any use of the information to criminally investigate or prosecute any alcohol or drug abuse patient.[facility] CenterIn the event this information is protected by the Federal Confidentiality of Alcohol and Drug Abuse Patient Records regulations: The Federal rules restrict any use of the information to criminally investigate or prosecute any alcohol or drug abuse patient.[facility]In the event this information is protected by the Federal Confidentiality of Alcohol and Drug Abuse Patient Records regulations: The Federal rules restrict any use of the information to criminally investigate or prosecute any alcohol or drug abuse patient.[facility] CenterIn the event this information is protected by the Federal Confidentiality of Alcohol and Drug Abuse Patient Records regulations: The Federal rules restrict any use of the information to criminally investigate or prosecute any alcohol or drug abuse patient.[facility] CenterIn the event this information is protected by the Federal Confidentiality of Alcohol and Drug Abuse Patient Records regulations: The Federal rules restrict any use of the information to criminally investigate or prosecute any alcohol or drug abuse patient.[facility] CenterIn the event this information is protected by the Federal Confidentiality of Alcohol and Drug Abuse Patient Records regulations: The Federal rules restrict any use of the information to criminally investigate or prosecute any alcohol or drug abuse patient.[facility] CenterIn the event this information is protected by the Federal Confidentiality of Alcohol and Drug Abuse Patient Records regulations: The Federal rules restrict any use of the information to criminally investigate or prosecute any alcohol or drug abuse patient.[facility] Reason for Visit (unrecogniz ed section and content) Reason Onset Date Comments Refill Request 11/29/2021 Reason Comments Pain patient is here for [...] is Type II dm and takes metformin. Reason Comments Hospital F/U Reason Comments Diarrhea Abdominal Pain Reason Comments Abdominal Pain Diarrhea Reason Comments Refill Request Reason Comments Hospital F/U Reason Onset Date Comments Refill Request 12/07/2023 Reason Onset Date Comments Refill Request 01/20/2024 Reason Comments Nurse Triage Call Sore Throat Reason Onset Date Comments Refill Request 02/10/2024 Reason Comments Knee Pain Reason Comments New Swelling Pain Ingrown Toenail Infection Reason Comments Results Reason Comments Left knee pain - Referred by Dr Lugo Specialty Diagnoses / Procedures Referred By Jeremy t Referred To Contact Orthopedics Diagnoses Acute pain of left knee Pain of left lower extremity Procedures CONSULT TO ORTHOPAEDICS OFFICE/OUTPATIENT [facility] MDM 60 MINUTES Ginger Lugo MD [address] [place] [address] Referral ID Status Reason Start Date Expiration Date V isits Requested Visits Authorized [id number] Closed PCP Requested Referral 03/28/2024 03/28/2025 1 1 Reason Comments Forms Dewey disability f orms Reason Comments Established Patient Fracture Follow Up Ingrown Toenail Pain Reason Comments Knee Pain Reason Comments 4 week 2 days post visit left knee pain with cortisone inje Reason Onset Date Comments Refill Request 05/22/2024 Specialty Diagnoses / Procedures Referred By Jeremy madrid Referred To Contact [facility] IMAGING Diagnoses Chronic pain of left knee Procedures MRI KNEE WO IVCON LEFT MRI ANY JT LOWER EXTREM W/O CONTRAST Torsten Ayers V, DO [address] [place] [address] [place] [address] Referral ID Status Reason Start Date Expiration Date V isits Requested Visits Authorized [id number] Closed Auto-Generate d Referral 05/13/2024 06/12/2025 1 1 Reason Comments Patient Question To return to work or to be off longer with PT Reason Comments Work Excuse 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 Reason Comments Patient Update Reason Onset Date Comments Refill Request 07/26/2024 Reason Onset Date Comments Refill Request 07/27/2024 Opened In Error 07/27/2024 Reason Comments 12 week 5 days post visit left knee pain with injection giv Specialty Diagnoses / Procedures Referred By Jeremy madrid Referred To Contact [facility] DEPARTMENT Diagnoses ov Procedures [place] [facility] [place] [address] Referral ID Status Reason Start Date Expiration Date Visits Requested Visits Authorized [id number] Authorized Financial Clearance Required - Self Pay Patient Cleared - Qualified [id number] 10/30/2024 99 99 Reason Comments Follow Up Reason Comments Insurance Authorization Prior Auth Delay ed: Additional Info Needed Reason Onset Date Comments Refill Request 08/25/2024 Reason Comments Durolane injection into left knee Reason Comments Referral Request Reason Comments Knee Pain Urgent Care follow u p Reason Comments Orders Reason Comments New Knee Pain Reason Comments Imaging Reason Comments Medical Clearance Reason Onset Date Comments Refill Request 10/10/2024 Reason Comments Forms Reason Comments Diabetes Reason Onset Date Comments Refill Request 10/26/2024 Reason Onset Date Comments Refill Request 11/06/2024 Reason Comments Dizziness Reason Comments Physical Therapy Specialty Diagnoses / Procedures Referred By Contac t Referred To Contact Rehabilitation Diagnoses Loose left total knee arthroplasty (HCC) Rocco Barragan MD [address] [place] [address] Phone: tel: fax: [facility] [address] [place] [address] Phone: tel: fax: Referral ID Status Reason Start Date Expiration Date V isits Requested Visits Authorized [id number] Authorized 11/28/2024 11/28/2025 10 24 Reason Onset Date Comments Refill Request 01/04/2025 Reason Comments Letter No show #1 Reason Onset Date Comments Refill Request 04/07/2025 See notes Reason Onset Date Comments Refill Request 05/21/2025 Reason Comments Error (VOID this visit) Care Teams (unrecognized sec tion and content) Printer Apprentice Relationship Specialty Start Date End Date Ginger Lugo MD [address] [place] [address] PCP - General Family Practice 10/20/12 Printer Apprentice Relationship Specialty Start Date End Date Ginger Lugo MD [address] [place] [address] PCP - General Family Practice 10/20/12 Printer Apprentice Relationship Specialty Start Date End Date Ginger Lugo MD [address] [place] [id number] PCP - General Family Practice 10/20/12 Printer Apprentice Relationship Specialty Start Date End Date Ginger Lugo MD [facility] [place], [place] [id number] PCP - General Family Practice 10/20/12 Printer Apprentice Relationship Specialty Start Date End Date Ginger Lugo MD [address] [facility] [place] [address] PCP - General Family Practice 10/20/12 Printer Apprentice Relationship Specialty Start Date End Date Ginger Lugo MD [address] [facility] [place] [address] PCP - General Family Practice 10/20/12 Printer Apprentice Relationship Specialty Start Date End Date Ginger Lugo MD [address] [facility] [place] [address] PCP - General Family Practice 10/20/12 Printer Apprentice Relationship Specialty Start Date End Date Ginger Lugo MD [address] [facility] [place] [address] PCP - General Family Practice 10/20/12 Printer Apprentice Relationship Specialty Start Date End Date Ginger Lugo MD [address] [facility] [place] [address] PCP - General Family Medicine 10/20/12 Printer Apprentice Relationship Specialty Start Date End Date Ginger Lugo MD [address] [facility] [place] [address] PCP - General Family Medicine 10/20/12 Printer Apprentice Relationship Specialty Start Date End Date Ginger Lugo MD [address] [facility] [place] [address] PCP - General Family Medicine 10/20/12 Printer Apprentice Relationship Specialty Start Date End Date Ginger Lugo MD [address] [facility] [place] [address] PCP - General Family Medicine 10/20/12 Printer Apprentice Relationship Specialty Start Date End Date Ginger Lugo MD [address] [facility] [place] [address] PCP - General Family Medicine 10/20/12 Team Status: Active Member Role Status Dates Dr. Ginger Lugo MD Family Provider Active Dr. Ginger Lugo MD Primary Care Provider Active Team Status: Inactive Member Role Status Dates Dr. Ginger Lugo MD Primary Care Provider, Referring Provider Active Dr. Ashley Patton MD Attending Provider Active Team Status: Active Member Role Status Dates Dr. Ginger Lugo MD Primary Care Provider Active Hanny Jones Attending Provider Active Team Status: Active Member Role Status Dates Dr. Ginger Lugo MD Primary Care Provider Active Melissa Bowman Attending Provider Active Team Status: Active Member Role Status Dates Dr. Ginger Lugo MD Primary Care Provider Active Dr. Ashlye Patton MD Attending Provider Active Team Status: Active Member Role Status Dates Dr. Ginger Lugo MD Primary Care Provider Active Dr. Ashley Patton MD Admit Provider, Attending Provid er, Other Provider Active Team Status: Inactive Member Role Status Dates Dr. Ginger Lugo MD Primary Care Provider Active Dr. Ashley Patton MD Admit Provider, Attending Provid er Active Printer Apprentice Relationship Specialty Start Date End Date Ginger Lugo MD [address] [place] [address] PCP - General Family Medicine 10/20/12 Team Status: Inactive Member Role Status Dates Dr. Ginger Lugo MD Primary Care Provider Active Dr. Ashley Patton MD Attending Provider Active Printer Apprentice Relationship Specialty Start Date End Date Ginger Lugo MD [address] [place], [place] [address] PCP - General Family Medicine 10/20/12 Printer Apprentice Relationship Specialty Start Date End Date Ginger Lugo MD [address] [place], [place] 241071 PCP - General Family Medicine 10/20/12 Team Status: Inactive Member Role Status Dates Dr. Ginger Lugo MD Primary Care Provider Active Dr. Greg Turner MD Attending Provider, Emergency Provi aaron Active Team Status: Inactive Member Role Status Dates Dr. Ginger Lugo MD Primary Care Provider Active Dr. Tye Juarez MD Emergency Provider Active Team Status: Inactive Member Role Status Dates Dr. Ginger Lugo MD Primary Care Provider Active Dr. Tye Juarez MD Attending Provider, Emergency Pro vider Active Team Status: Active Member Role Status Dates Dr. Ginger Lugo MD Primary Care Provider Active Dr. Porter Banuelos DO Emergency Provider Active Dr. Hiral Rodriguez MD Admit Provider, Attending Prov ider Active Printer Apprentice Relationship Specialty Start Date End Date Ginger Lugo MD [address] [place], [place] [address] PCP - General Family Medicine 10/20/12 Team Status: Active Member Role Status Dates Dr. Ginger Lugo MD Primary Care Provider Active Dr. Porter Banuelos DO Emergency Provider Active Dr. Hiral Rodriguez MD Admit Provider, Other Provider Active Dr. Artem Gonzales MD Attending Provider, Other Provi aaron Active Dr. Harpreet Viramontes MD Other Provider Active Team Status: Active Member Role Status Dates Dr. Ginger Lugo MD Primary Care Provider Active Dr. Porter Banuelos DO Emergency Provider Active Dr. Hiral Rodriguez MD Admit Provider, Other Provider Active Dr. Artem Gonzales MD Attending Provider, Other Provi aaron Active Dr. Harpreet Viramontes MD Other Provider Active Dr. Sen Guzman MD Other Provider Active Team Status: Inactive Member Role Status Dates Dr. Ginger Lugo MD Primary Care Provider Active Dr. Porter Banuelos DO Emergency Provider Active Dr. Hiral Rodriguez MD Admit Provider, Other Provider Active Dr. Artem Gonzales MD Attending Provider Active Dr. Harpreet Viramontes MD Other Provider Active Dr. Sen Guzman MD Other Provider Active Printer Apprentice Relationship Specialty Start Date End Date Ginger Lugo MD [address] [place], [place] [address] PCP - General Family Medicine 10/20/12 Printer Apprentice Relationship Specialty Start Date End Date Ginger Lugo MD [address] [place], [place] 49[address] PCP - General Family Medicine 10/20/12 Printer Apprentice Relationship Specialty Start Date End Date Ginger Lugo MD [address] [place], [place] 7[address] PCP - General Family Medicine 10/20/12 Printer Apprentice Relationship Specialty Start Date End Date Ginger Lugo MD [address] [place] [address] PCP - General 10/07/22 Printer Apprentice Relationship Specialty Start Date End Date Ginger Lugo MD [address] [place], [place] 288081 PCP - General 10/07/22 Printer Apprentice Relationship Specialty Start Date End Date Ginger Lugo MD [address] [place] [address] PCP - General 10/07/22 Team Status: Active Member Role Status Dates Dr. Ginger Lugo MD Primary Care Provider Active Dr. Fernandez Bryant DO Emergency Provider Active Dr. Gerardo Watkins DO Admit Provider, Attending Pro vider Active Printer Apprentice Relationship Specialty Start Date End Date Ginger Lugo MD [address] [place] [address] PCP - General Family Medicine 10/20/12 Team Status: Active Member Role Status Dates Dr. Ginger Lugo MD Primary Care Provider Active Dr. Jude Mckeon MD Attending Provider Active Team Status: Active Member Role Status Dates Dr. Ginger Lugo MD Primary Care Provider Active Dr. Fernandez Bryant DO Emergency Provider Active Dr. Gerardo Watkins DO Admit Provider, Attending Provider, Other Provider Active Dr. Jude Mckeon MD Other Provider Active Team Status: Active Member Role Status Dates Dr. Ginger Lugo MD Primary Care Provider Active Dr. Remus Ungur , DO Emergency Provider Active Dr. Gerardo Watkins , DO Admit Provider, Other Provide r Active Dr. Jude Mckeon MD Attending Provider, Other Provid er Active Team Status: Inactive Member Role Status Dates Dr. Ginger Lugo MD Primary Care Provider Active Dr. Fernandez Bryant , DO Emergency Provider Active Dr. Gerardo Watkins , DO Admit Provider, Attending Pro vider Active Dr. Jude Mckeon MD Other Provider Active Printer Apprentice Relationship Specialty Start Date End Date Ginger Lugo MD [address] [place] [address] PCP - General Family Medicine 10/20/12 Printer Apprentice Relationship Specialty Start Date End Date Ginger Lugo MD [address] [place] [address] PCP - General Family Medicine 10/20/12 Printer Apprentice Relationship Specialty Start Date End Date Ginger Lugo MD [address] [place] [address] PCP - General Family Medicine 10/20/12 Printer Apprentice Relationship Specialty Start Date End Date Ginger Lugo MD [address] [place] [address] PCP - General Family Medicine 10/20/12 Printer Apprentice Relationship Specialty Start Date End Date Ginger Lugo MD [address] [place] [address] PCP - General Family Medicine 10/20/12 Printer Apprentice Relationship Specialty Start Date End Date Ginger Lugo MD [address] [place] [address] PCP - General Family Medicine 10/20/12 Printer Apprentice Relationship Specialty Start Date End Date Ginger Lugo MD [address] [place] [address] PCP - General Family Medicine 10/20/12 Printer Apprentice Relationship Specialty Start Date End Date Ginger Lugo MD [address] [place] [address] PCP - General Family Medicine 10/25/21 Printer Apprentice Relationship Specialty Start Date End Date Ginger Lugo MD [address] [place] [address] PCP - General Family Medicine 10/20/12 Printer Apprentice Relationship Specialty Start Date End Date Ginger Lugo MD [address] [place] [address] PCP - General Family Medicine 10/20/12 Printer Apprentice Relationship Specialty Start Date End Date Ginger Lugo MD [address] [place] [address] PCP - General Family Medicine 10/20/12 Printer Apprentice Relationship Specialty Start Date End Date Ginger Lugo MD [address] [place] [address] PCP - General Family Medicine 10/20/12 Printer Apprentice Relationship Specialty Start Date End Date Ginger Lugo MD [address] [place] [address] PCP - General Family Medicine 10/20/12 Printer Apprentice Relationship Specialty Start Date End Date Ginger Lugo MD [address] [place] [address] PCP - General Family Medicine 10/20/12 Printer Apprentice Relationship Specialty Start Date End Date Ginger Lugo MD [address] [facility] [place] [address] PCP - General Family Medicine 10/20/12 Printer Apprentice Relationship Specialty Start Date End Date Ginger Lugo MD [address] [facility] [place] [address] PCP - General Family Medicine 10/20/12 Printer Apprentice Relationship Specialty Start Date End Date Ginger Lugo MD [address] [facility] [place] [address] PCP - General Family Medicine 10/20/12 Printer Apprentice Relationship Specialty Start Date End Date Ginger Lugo MD [address] [place] [address] PCP - General Family Medicine 10/20/12 Printer Apprentice Relationship Specialty Start Date End Date Ginger Lugo MD [address] [facility] [place] [address] PCP - General Family Medicine 10/20/12 Printer Apprentice Relationship Specialty Start Date End Date Ginger Lugo MD [address] [facility] [place] [address] PCP - General Family Medicine 10/20/12 Printer Apprentice Relationship Specialty Start Date End Date Ginger Lugo MD [address] [facility] [place] [address] PCP - General Family Medicine 10/20/12 Printer Apprentice Relationship Specialty Start Date End Date Ginger Lugo MD [address] [place] [address] PCP - General Family Medicine 10/20/12 Printer Apprentice Relationship Specialty Start Date End Date Ginger Lugo MD [address] [place], [place] [address] PCP - General Family Medicine 10/20/12 Printer Apprentice Relationship Specialty Start Date End Date Ginger Lugo MD [address] [place], [place] [address]10751 PCP - General Family Medicine 10/20/12 Printer Apprentice Relationship Specialty Start Date End Date Ginger Lugo MD [address] [place] [address] PCP - General Family Medicine 10/20/12 Printer Apprentice Relationship Specialty Start Date End Date Ginger Lugo MD [address] [place] [address] PCP - General Family Medicine 10/20/12 Printer Apprentice Relationship Specialty Start Date End Date Ginger Lugo MD [address] [place] [address] PCP - General Family Medicine 10/20/12 Printer Apprentice Relationship Specialty Start Date End Date Ginger Lugo MD [address] [place] [address] PCP - General Family Medicine 10/20/12 Printer Apprentice Relationship Specialty Start Date End Date Ginger Lugo MD [address] [place], [place] [address] PCP - General Family Medicine 10/20/12 Printer Apprentice Relationship Specialty Start Date End Date Ginger Lugo MD [address] [place], [place] [address] PCP - General Family Medicine 10/20/12 Printer Apprentice Relationship Specialty Start Date End Date Ginger Lugo MD [address] [place] [address] PCP - General Family Medicine 10/20/12 Maryam Retana, UMBRELLA MENDER.MILL PLATFORM SUPERVISOR [address] [place] [address] Cattle Producers Family [facility] 08/15/24 Nuha Mosquera UMBRELLA MENDER.MILL PLATFORM SUPERVISOR [address] [facility] [place] [address] [facility] 08/15/24 Printer Apprentice Relationship Specialty Start Date End Date Ginger Lugo MD [address] [facility] [place] [address] PCP - General Family Medicine 10/20/12 Maryam Retana UMBRELLA MENDER.MILL PLATFORM SUPERVISOR [address] [place] [address] [facility] 08/15/24 Nuha Mosquera UMBRELLA MENDER.MILL PLATFORM SUPERVISOR [address] [place] [address] [facility] 08/15/24 Printer Apprentice Relationship Specialty Start Date End Date Ginger Lugo MD [address] [facility] [place] [address] PCP - General Family Medicine 10/20/12 Maryam Retana, UMBRELLA MENDER.MILL PLATFORM SUPERVISOR [address] [place] [address] [employer]attle Pro[employer] Family Medicine 08/15/24 Nuha Mosquera APRN.MILL PLATFORM SUPERVISOR [address] [facility] [place] [address] [facility] 08/15/24 Printer Apprentice Relationship Specialty Start Date End Date Ginger Lugo MD [address] [facility] [place] [address] PCP - General Family Medicine 10/20/12 Maryam Retana, KURT.MILL PLATFORM SUPERVISOR [address] [facility] [place] [address] [facility] 08/15/24 uNha Mosquera APRN.MILL PLATFORM SUPERVISOR [address] [facility] [place] [address] [facility] 08/15/24 Printer Apprentice Relationship Specialty Start Date End Date Ginger Lugo MD [address] [facility] [place] [address] PCP - General Family Medicine 10/20/12 Maryam Retana, UMBRELLA MENDER.MILL PLATFORM SUPERVISOR [address] [facility] [place] [address] [facility] 08/15/24 Nuha Mosquera UMBRELLA MENDER.MILL PLATFORM SUPERVISOR [address] [place] [address] [facility] 08/15/24 Printer Apprentice Relationship Specialty Start Date End Date Ginger Lugo MD [address] [facility] [place] [address] PCP - General Family Medicine 10/20/12 Maryam Retana, UMBRELLA MENDER.MILL PLATFORM SUPERVISOR [address] [place] [address] Cattle Pro[employer] Family Medicine 08/15/24 Nuha Mosquera APRN.MILL PLATFORM SUPERVISOR [address] [place] [address] Cattle Pro[employer] Family Medicine 08/15/24 Printer Apprentice Relationship Specialty Start Date End Date Ginger Lugo MD [address] [place] [address] PCP - General Family Medicine 10/20/12 Maryam Retana APRN.MILL PLATFORM SUPERVISOR [address] [place] [address] Cattle Producers Family Medicine 08/15/24 Nuha Mosquera UMBRELLA MENDER.MILL PLATFORM SUPERVISOR [address] [place] [address] Cattle Producers Family [facility] 08/15/24 Printer Apprentice Relationship Specialty Start Date End Date Ginger Lugo MD [address] [place] [address] PCP - General Family Medicine 10/20/12 Maryam Retana UMBRELLA MENDER.MILL PLATFORM SUPERVISOR [address] [place] [address] Cattle Producers Family Medicine 08/15/24 Nuha Mosquera UMBRELLA MENDER.MILL PLATFORM SUPERVISOR [address] [place] [address] [employer]attle [employer] Family Medicine 08/15/24 Printer Apprentice Relationship Specialty Start Date End Date Ginger Lugo MD [address] [place] [address] PCP - General Family Medicine 10/20/12 Maryam Retana APRN.MILL PLATFORM SUPERVISOR [address] [place] [address] Cattle Pro[employer] Family Medicine 08/15/24 Nuha Mosquera APRN.MILL PLATFORM SUPERVISOR [address] [place] [address] [employer]attle [employer] Family Medicine 08/15/24 Printer Apprentice Relationship Specialty Start Date End Date Ginger Lugo MD [address] [place] [address] PCP - General Family Medicine 10/20/12 Maryam Retana APRN.MILL PLATFORM SUPERVISOR [address] [place] [address] [employer]attle [employer] Family Medicine 08/15/24 Nuha Mosquera UMBRELLA MENDER.MILL PLATFORM SUPERVISOR [address] [place] [address] [facility] 08/15/24 Printer Apprentice Relationship Specialty Start Date End Date Ginger Lugo MD [address] [place] [address] PCP - General Family Medicine 10/20/12 Maryam Retana UMBRELLA MENDER.MILL PLATFORM SUPERVISOR [address] [place] [address] [employer]attle Pro[employer] Family Medicine 08/15/24 Nuha Mosquera UMBRELLA MENDER.MILL PLATFORM SUPERVISOR [address] [place] [address] [employer]attle Pro[employer] Family Medicine 08/15/24 Printer Apprentice Relationship Specialty Start Date End Date Ginger Lugo MD [address] [facility] [place] [address] PCP - General Family Medicine 10/20/12 Maryam Retana, UMBRELLA MENDER.MILL PLATFORM SUPERVISOR [address] [place] [address] [employer]attle [employer] Family Medicine 08/15/24 Nuha Mosquera, UMBRELLA MENDER.MILL PLATFORM SUPERVISOR [address] [place] [address] [facility] 08/15/24 Printer Apprentice Relationship Specialty Start Date End Date Ginger Lugo MD [address] [place] [address] PCP - General Family Medicine 10/20/12 Maryam Retana, UMBRELLA MENDER.MILL PLATFORM SUPERVISOR [address] [place] [address] [facility] 08/15/24 Nuha Mosquera, UMBRELLA MENDER.MILL PLATFORM SUPERVISOR [address] [place] [address] Cattle Pro[employer] Family Medicine 08/15/24 Printer Apprentice Relationship Specialty Start Date End Date Ginger Lugo MD [address] [place] [address] PCP - General Family Medicine 10/25/21 Printer Apprentice Relationship Specialty Start Date End Date Ginger Lugo MD [address] [place] [address] PCP - General Family Medicine 10/25/21 Printer Apprentice Relationship Specialty Start Date End Date Ginger Lugo MD [address] [place], [place] [address] PCP - General Family Medicine 10/25/21 Printer Apprentice Relationship Specialty Start Date End Date Ginger Lugo MD [address] [place], [place] [address] PCP - General Family Medicine 10/25/21 Printer Apprentice Relationship Specialty Start Date End Date Ginger Lguo MD [address] [place], [place] [address] PCP - General Family Medicine 10/25/21 Printer Apprentice Relationship Specialty Start Date End Date Ginger Lugo MD [address] [place], [place] [address] PCP - General Family Medicine 10/20/12 Maryam Retana APRN.MILL PLATFORM SUPERVISOR [address] [place], [place] [address] Cattle Pro[employer] Family Medicine 08/15/24 Nuha Mosquera APRN.MILL PLATFORM SUPERVISOR [address] [place], [place] [address] Cattle Producers Family Medicine 08/15/24 Printer Apprentice Relationship Specialty Start Date End Date Ginger Lugo MD [address] [place], [place] [address]479[address] PCP - General Family Medicine 10/20/12 Maryam Retana APRN.MILL PLATFORM SUPERVISOR [address] [place] [address] Cattle Producers Family Medicine 08/15/24 Nuha Mosquera APRN.MILL PLATFORM SUPERVISOR [address] [facility] [place] [address] Cattle Producers Family Medicine 08/15/24 Printer Apprentice Relationship Specialty Start Date End Date Ginger Lugo MD [address] [facility] [place] [address] PCP - General Family Medicine 10/20/12 Maryam Retana, UMBRELLA MENDER.MILL PLATFORM SUPERVISOR [address] [place] [address] Cattle Producers Family Medicine 08/15/24 Nuha Mosquera UMBRELLA MENDER.MILL PLATFORM SUPERVISOR [address] [facility] [place] [address] [facility] 08/15/24 Printer Apprentice Relationship Specialty Start Date End Date Ginger Lugo MD [address] [facility] [place] [address] PCP - General Family Medicine 10/20/12 Maryam Retana, UMBRELLA MENDER.MILL PLATFORM SUPERVISOR [address] [place] [address] Cattle Pro[employer] Family Medicine 08/15/24 Nuha Mosquera UMBRELLA MENDER.MILL PLATFORM SUPERVISOR [address] [facility] [place] [address] Cattle Producers Family Medicine 08/15/24 Printer Apprentice Relationship Specialty Start Date End Date Ginger Lugo MD [address] [facility] [place] [address] PCP - General Family Medicine 10/20/12 Maryam Retana, UMBRELLA MENDER.MILL PLATFORM SUPERVISOR [address] [place] [address] [employer]attle [employer] Family Medicine 08/15/24 Nuha Mosquera APRN.CNP [address] [place] [address] Cattle Producers [facility] 08/15/24 Printer Apprentice Relationship Specialty Start Date End Date Ginger Lugo MD [address] [place] [address] PCP - General 10/07/22 <item> Privacy Markings (unrecogniz ed section and content) Section Author: Payal Segura PROHIBITION ON REDISCLOSURE OF CONFIDENTIAL INFORMATION This notice accompanies a disclosure of information concerning a client made to you with the consent of such client. Goals (unrecognized section and content) Goals may be documented in a n alternate sectionGoals may be documented in an alternate sectionGoals may be documented in an alternate section Scheduled Active and Recently Administ ered Medications (unrecognized section and content) Medication Order 09/20/2023 09/21/2023 09/22/2023 insulin regular (HumuLIN R) injection 10 Units (COMPLETED) 10 Units, intravenous, Once, On Thu09/22/23 at 1930, For 1 dose 1928 (Given - Provid er: Lucina Olivo RN) iohexol (OMNIPaque) 350 mg iodine/mL solution 68 mL (COMPLETED) 68 mL, intravenous, Once in imaging, Starting on Thu09/22/23 at 192, For 1 dose 1917 (Given - Provid er: Irving Landrum) ketorolac (Toradol) injection 30 mg (COMPLETED) 30 mg, intramuscular, Once, On Thu09/22/23 at 1800, For 1 dose 184 (Given - Provid er: Lucina Olivo RN) nitroglycerin (Nitrostat) SL tablet 0.4 mg (COMPLETED) 0.4 mg, sublingual, Once, On Thu09/22/23 at 1850, For 1 dose, May administer up to 3 doses per episode. 185 (Given - Provid er: Lucina Olivo RN) ondansetron (Zofran) injection 4 mg (COMPLETED) 4 mg, intravenous, Once, On Thu09/22/23 at 1800, For 1 dose, When administering via IV Push, administer over 3-5 minutes. 184 (Given - Provid er: Lucina Olivo RN) sodium chloride 0.9 % bolus 1,000 mL (COMPLETED) 1,000 mL, intravenous, at 1,000 mL/hr, Administer over 1 Hours, Once, On Thu09/22/23 at 1755, For 1 dose 183 (New Bag - Prov ider: Lcuina Olivo RN)193 (Stopped - Provider: Lucina Olivo RN) sodium chloride 0.9 % bolus 1,000 mL (COMPLETED) 1,000 mL, intravenous, at 2,000 mL/hr, Administer over 30 Minutes, Once, On Thu09/22/23 at 2040, For 1 dose 2040 (New Bag - Prov ider: Lucina Olivo RN)2134 (Stopped - Provider: Lucina Olivo RN) FOR RECORDS PERTAINING TO PATIENTS WHO ARE [...] BE BASED ON THE PRIMARY CLINICAL RECORDS. [employer] provides no warranty or guarantee of the accuracy or completeness of information in this document.
--- NOTE | 2025-06-01 20:15 | EKG12_ITS ---
Test Reason : CP Blood Pressure : */* mmHG Vent. Rate : 68 BPM Atrial Rate : 68 BPM P-R Int : 140 ms QRS Dur : 102 ms QT Int : 426 ms P-R-T Axes : 64 5 28 degrees QTcB Int : 452 ms Normal sinus rhythm Incomplete right bundle branch block Borderline ECG Confirmed by IDALMIS CHAMPION MD ([id number]), content editor BENITEZ NEWTON ([id number]) on 06/02/2025 11:01:05 AM Referred By: ER Confirmed By: IDALMIS CHAMPION MD
--- NOTE | 2025-06-01 20:15 | ED.VIS.CHEST ---
HPI History of Present Illness Chief Complaint: Chest Pain Narrative Narrative: Patient is a 54-year-old male presenting to the emergency department for chest pain that started around 5:30 PM tonight. Patient has a past medical history of coronary artery stent placement in 2022, diabetes, hypothyroidism, tobacco use, obesity, hyperlipidemia, JOSIAH. Patient states that this feels like the chest pain he experienced before having his stent placement. He states he received nitro and aspirin by EMS which is improved significantly with the pain. He reports that it is midsternal that felt like an elephant sitting on his chest. He denies it radiating anywhere including his arms, legs or back or jaw. He denies any abdominal pain, nausea, vomiting, diaphoresis. States when he was having the pressure-like pain he did have some shortness of breath as well which has since improved. [facility] Medical History Infection due to ESBL-producing Escherichia coli Anxiety Depression Diabetes Kidney stones Former smoker BiPAP (biphasic positive airway pressure) dependence Sleep apnea Myocardial infarct Hypertension Atherosclerosis of coronary artery of [place] heart without angina pectoris Leukocytosis JOSIAH (obstructive sleep apnea) Type 2 diabetes mellitus Family history of heart disease Essential hypertension Nausea vomiting and diarrhea Colitis Elevated liver enzymes Sepsis Depression Hyperlipidemia Hypertension Home Medications ?Medication ?Instructions ?Recorded ?Last Taken ?Type amlodipine 10 mg tablet 10 mg PO QHS BLOOD PRESSURE 03/15/18 03/17/23 History levothyroxine 125 mcg tablet 125 mcg PO DAILY THYROID 02/08/19 10/07/23 History atorvastatin 40 mg tablet 40 mg PO QHS CHOLESTEROL 10/09/22 10/06/23 History metformin 500 mg tablet 1,000 mg PO BID BLOOD SUGARS 10/09/22 10/07/23 History paroxetine HCl 40 mg tablet 40 mg PO QHS DEPRESSION 10/09/22 10/06/23 History metoprolol succinate 50 mg 50 mg PO QHS BLOOD PRESSURE 10/13/22 10/06/23 History tablet,extended release 24 hr nitroglycerin 0.4 mg sublingual 0.4 mg sublingual Q5M PRN CHEST 10/24/22 Unknown Rx tablet PAIN #14 tabs glimepiride 2 mg tablet 2 mg PO DAILY blood sugar 10/07/23 10/07/23 History tramadol 50 mg tablet 50 mg PO Q6H PRN PRN Pain 3 days 05/03/24 Unknown Rx #12 tabs aspirin 81 mg tablet,delayed 81 mg PO DAILY #90 TABLETS 08/25/24 Unknown Rx release Allergy/AdvReac Type Severity Reaction Status Date / Time No Known Allergies Allergy Verified 06/01/25 19:09 Family History Father Myocardial infarction, Onset Age: 45 Mother Hypertension Mixed hyperlipidemia Grandmother CHF (congestive heart failure) Surgical History History of left heart catheterization (10/09/23) History of coronary artery stent placement (~10/24/22) History of tonsillectomy Status post excision of lipoma Social History household members: spouse Smoking Status: Former smoker alcohol intake: current details: occasional substance use type: does not use caffeine: Yes Type: carbonated beverages Number of servings: 6 ROS ROS ED ROS Narrative See HPI EXAM Physical Exam Narrative Exam Narrative: Vital signs: Reviewed General: Alert and oriented x 3. No acute distress. Obese HEENT: Head is normocephalic and atraumatic, sinuses nontender, pupils equal round and reactive. Nares are patent. Oropharynx and throat exams normal. Neck: Supple without lymphadenopathy nontender Cardiovascular: Regular rate and rhythm, no murmurs. No rubs or gallops. Normal S1 and S2. Radial and DP/PT pulses intact and symmetric throughout. Respiratory: Clear to auscultation bilaterally. No wheezes, rales, rhonchi Abdominal: Soft and nontender. Normal bowel sounds. No guarding or rebound. Nonsurgical abdomen Extremities: No tenderness. No bruising. Normal range of motion. Normal sensation. Skin: No rash or redness. Neurological: Cranial nerves II through XII are grossly intact. Normal strength and sensation. Normal cerebellar function The rest of the physical exam is unremarkable Const Vital Signs: 06/01/25 19:09 06/01/25 20:09 06/01/25 21:00 Temperature 98.7 F Temperature Source Oral Pulse Rate 71 64 68 Respiratory Rate 21 H 18 18 Blood Pressure 139/85 H 140/85 H 149/90 H Blood Pressure Mean 103 103 109 Pulse Ox 98 97 96 Oxygen Delivery Method Room Air Room Air Room Air 06/01/25 22:00 06/01/25 23:00 Temperature Temperature Source Pulse Rate 66 64 Respiratory Rate 16 18 Blood Pressure 113/72 152/86 H Blood Pressure Mean 85 108 Pulse Ox 98 98 Oxygen Delivery Method Room Air Room Air MDM MDM MDM Narrative Medical decision making narrative: Patient is a 54-year-old male presenting to the emergency department for chest pain. Patient was seen and examined. Vitals are stable. Patient resting bed comfortably no acute distress. Patient was already given 4 aspirin and 1 nitro by EMS. Patient has a significant cardiac history and risk factors. He describes the pain as pressure-like which improved with nitro. I have concern that this is cardiac cause of pain. Patient has no current shortness of breath, no tachycardia, no risk factors for PE or DVT, no hypoxia I do not think this is secondary to a PE. He describes the pain as pressure-like and it is much better after nitro and aspirin. Pulses are equal throughout. Again he is not tachycardic I do not think this is secondary to aortic pathology. CBC with a leukocytosis of 19.5 and hemoglobin of 13.8. BMP with no significant abnormalities. Troponin initially of 9 and reflex is less than 6. CXR reviewed by myself. No opacities, pneumothorax or widened mediastinum. Radiology read with no acute radiographic abnormalities. Given the patients history and presentation, I do think the patient should be admitted for further cardiac workup. I did discuss with Dr. Disla, internal consultant chief steward/stewardess for further recommendations. He recommends ddimer be obtained prior to admission to rule out PE. This was added on. Discussed admission with patient and family at bedside and they are agreeable. Patient admitted to Dr. Carpio for further management. Clinical impression Chest pain Leukocytosis History & Record Review Discussion w/independent historian: Patient and Family Lab Data Attestation: I reviewed the patient's lab results. Labs: Laboratory Results - last 24 hr 06/01/25 06/01/25 20:19 22:39 WBC 19.5 H RBC 4.94 Hgb 13.8 Hct 41.2 MCV 83.4 MCH 27.9 MCHC 33.5 RDW Std Deviation 43.0 RDW Coeff of Melva 14.3 Plt Count 256 MPV 9.6 Immature Gran % (Auto) 1.300 H Neut % (Auto) 76.5 H Lymph % (Auto) 16.7 L Carter % (Auto) 4.1 Eos % (Auto) 1.1 Baso % (Auto) 0.3 Absolute Neuts (auto) 14.9 H Absolute Lymphs (auto) 3.26 Nucleated RBC % 0 Sodium 137 Potassium 3.7 Chloride 99 Carbon Dioxide 25.1 Anion Gap 13 BUN 19 Creatinine 1.08 Estim Creat Clear Calc 102.01 Est GFR (MDRD) Non-Af 82 BUN/Creatinine Ratio 17.5 Glucose 103 H Calcium 9.5 Troponin T High Sens 9 Troponin T Hi Sens 2 Hr < 6 Radiography Chest X-Ray - ED: 2 View, Read by ED Physician, No Acute Disease and No Infiltrates Diagnostic Testing: Clinical Impression(s) from Imaging Studies Chest X-Ray 06/01/25 20:26 IMPRESSION: NO ACUTE FINDINGS. Reading Location: [facility] Discharge Plan Triage Chief Complaint: Chest Pain ED Provider: Kaylie Chambers Dx/Rx/DC Orders Prescriptions: No Action metoprolol succinate 50 mg tablet extended release 24 hr 50 mg PO QHS atorvastatin 40 mg tablet 40 mg PO QHS paroxetine HCl 40 mg tablet 40 mg PO QHS metformin 500 mg tablet 1,000 mg PO BID amlodipine 10 MG tablet 10 mg PO QHS levothyroxine 125 MCG tablet 125 mcg PO DAILY nitroglycerin 0.4 mg Tablet, Sublingual 0.4 mg sublingual Q5M PRN (Reason: CHEST PAIN ) Qty: 14 5RF glimepiride 2 mg tablet 2 mg PO DAILY tramadol 50 mg tablet 50 mg PO Q6H PRN PRN (Reason: Pain) 3 Days Qty: 12 0RF aspirin 81 mg tablet,delayed release (DR/EC) 81 mg PO DAILY Qty: 90 3RF Primary Care Provider: Sonny Price Referrals: Sonny Price MD [Primary Care Provider, Medical] Print Language: Turkish
--- NOTE | 2025-06-01 20:26 | RAD_ITS ---
PROCEDURE: CHEST PA AND LATERAL 06/01/2025 REASON FOR EXAM: CHEST PAIN TECHNIQUE: Procedure Code: RADCXR Modality: DX Procedure: CHEST PA AND LATERAL COMPARISON: 10/07/2023. FINDINGS: The heart is normal in size. The lungs are clear. No acute osseous abnormalities. RAD/Chest PA and Lateral IMPRESSION: NO ACUTE FINDINGS. Reading Location: [id number]
[2025-06-01 20:30] LABS: Hematocrit 41.2 % (40-54); Hemoglobin 13.8 g/dL (13.0-16.5); Immature Granulocytes Count 0.260 X10^3/uL (0.0-0.0); Mean Corp Hgb Conc 33.5 g/dL (32-36); Mean Corpuscular Volume 83.4 fL (80-94); Mean Platelet Vol. 9.6 fl (6.2-12.0); NRBC Flagged by Analyzer 0 % (0-5); Platelet Count 256 K/mm3 (150-450); RBC Distribution Width CV 14.3 % (11.6-14.6); RBC Distribution Width SD 43.0 fl (35.1-43.9); Red Blood Count 4.94 M/mm3 (4.6-6.2); White Blood Count 19.5 K/mm3 (4.4-11.0)
[2025-06-01 21:00] VITALS: BP 149/90; PULSE 68; RESP 18; O2SAT 96
[2025-06-01 21:22] LABS: Anion Gap 13 (5-15); BUN 19 mg/dL (4-19); BUN/Creat Ratio 17.5 RATIO (10-20); Calcium,Total 9.5 mg/dL (7.6-11.0); Carbon Dioxide 25.1 mmol/L (21.0-32.0); Chloride 99 mmol/L (98-108); Estimated Creatinine Clearance 102.01 ml/min (50-250); Glucose 103 mg/dL (70-99); Potassium 3.7 mmol/L (3.3-5.1); Troponin T High Sensitivity 9 ng/L (<=22)
[2025-06-01 22:00] VITALS: BP 113/72; PULSE 66; RESP 16; O2SAT 98
[2025-06-01 23:00] VITALS: BP 152/86; PULSE 64; RESP 18; O2SAT 98
[2025-06-01 23:14] LABS: Troponin T High Sens 2 HR < 6 ng/L (<=22)
[2025-06-02] VITALS: PULSE 60; RESP 18; O2SAT 95
--- NOTE | 2025-06-02 00:33 | PCM.HP.STD ---
[facility] - General General Date of Admission: 06/02/25 Date of Service: 06/02/25 Chief Complaint: Chest Pain. [facility] Martín KING, is a 54 M with a past medical history of essential hypertension; on metoprolol and amlodipine nightly, hyperlipidemia; on atorvastatin, hypothyroidism; on levothyroxine, former tobacco abuse, morbid (class III) obesity; with BMI of 42.9 this admission, JOSIAH; on BiPAP, DM-2; of unknown control on metformin twice daily plus glimepiride and tirzepatide weekly, CAD; s/p DC with subsequent mid-LAD stent placement (2022) on baby aspirin and as needed SL NTG, history of syncope and collapse, depression with anxiety; on paroxetine, history of sepsis with previous ESBL E. coli infection, history of colitis, history of renal calculi, OA and chronically elevated WBC; likely due to CLL followed by Dr. Cason who presents to [facility] ER complaining of chest pain. Mr. King reports his symptoms began ~5:30 PM on the evening of June 01, 2025 with the abrupt onset of chest pain that began at rest and was substernal, nonradiating and pressure-like like an elephant sitting on his chest that was similar to the angina that heralded his prior stent placement. He then activated EMS and was treated with ECASA and NTG which significantly improved his pain. He also admits to associated shortness of breath with his chest pain that improved once his chest pain defervesced. He denies associated fever, chills, nausea, vomiting, diarrhea, constipation, abdominal pain, dysuria, hematuria, headache or rash. In the ER he was noted to have Leukocytosis of 19.5 K with Left-shift of 1.3% consistent with no evidence of infection in the setting of previously known suspected CLL complicated by Chest Pain; that improved after enteric-coated aspirin and nitroglycerin in the setting of previously known CAD with a corresponding CXR that revealed no acute findings in addition to laboratory evidence of Hypophosphatemia of 1.1 mg/dL present on admission. He was then admitted to the PCU for ongoing care for a stay that is expected to extend beyond 2 midnights. [facility] Medical History Infection due to ESBL-producing Escherichia coli Anxiety Depression Diabetes Kidney stones Former smoker BiPAP (biphasic positive airway pressure) dependence Sleep apnea Myocardial infarct Hypertension Atherosclerosis of coronary artery of [place] heart without angina pectoris Leukocytosis JOSIAH (obstructive sleep apnea) Type 2 diabetes mellitus Family history of heart disease Essential hypertension Nausea vomiting and diarrhea Colitis Elevated liver enzymes Sepsis Depression Hyperlipidemia Hypertension Home Medications ?Medication ?Instructions ?Recorded ?Last Taken ?Type amlodipine 10 mg tablet 10 mg PO QHS BLOOD PRESSURE 03/15/18 05/31/25 History levothyroxine 125 mcg tablet 125 mcg PO DAILY THYROID 02/08/19 06/01/25 History atorvastatin 40 mg tablet 40 mg PO QHS CHOLESTEROL 10/09/22 05/30/25 History metformin 500 mg tablet 1,000 mg PO BID BLOOD SUGARS 10/09/22 06/01/25 History paroxetine HCl 40 mg tablet 40 mg PO QHS DEPRESSION 10/09/22 05/31/25 History metoprolol succinate 50 mg 50 mg PO QHS BLOOD PRESSURE 10/13/22 05/31/25 History tablet,extended release 24 hr nitroglycerin 0.4 mg sublingual 0.4 mg sublingual Q5M PRN CHEST 10/24/22 06/01/25 Rx tablet PAIN #14 tabs glimepiride 2 mg tablet 2 mg PO DAILY blood sugar 10/07/23 06/01/25 History aspirin 81 mg tablet,delayed 81 mg PO DAILY #90 TABLETS 08/25/24 06/01/25 Rx release folic acid 1 mg tablet 1 mg PO DAILY supplement 06/02/25 06/01/25 History isosorbide dinitrate 5 mg tablet 5 mg PO BID angina 06/02/25 06/01/25 History tirzepatide 2.5 mg/0.5 mL 2.5 mg subcut QWEEK blood sugar 06/02/25 05/30/25 History subcutaneous pen injector (Mounjaro) Allergy/AdvReac Type Severity Reaction Status Date / Time No Known Allergies Allergy Verified 06/02/25 02:50 Family History Father Myocardial infarction, Onset Age: 45 Mother Hypertension Mixed hyperlipidemia Grandmother CHF (congestive heart failure) Surgical History History of left heart catheterization (10/09/23) History of coronary artery stent placement (~10/24/22) History of tonsillectomy Status post excision of lipoma Social History household members: spouse Smoking Status: Former smoker alcohol intake: current details: occasional substance use type: does not use caffeine: Yes Type: carbonated beverages Number of servings: 6 ROS ROS Narrative Review of Systems: Constitutional: Patient denies fever or chills. Eyes: Patient denies change in vision or discharge from eyes. ENT: Patient denies runny nose, sore throat or ear pain. Resp: Patient admits to shortness of breath that coincided with his chest pain but he denies cough. CV: Patient admits to chest pain that was substernal, pressure-like and improved after aspirin and NTG as per HPI. He denies palpitations, heart racing or lower extremity edema. GI: Patient denies abdominal pain, nausea, vomiting, diarrhea or constipation. : Patient denies dysuria or hematuria. MSK: Patient denies arthralgias or myalgias. Skin: Patient denies rash, abscess, wounds or jaundice. Psych: Patient denies symptoms uncontrolled depression or anxiety. Neuro: Patient denies headache, paresthesias or focal neurologic deficits. Allergy: Patient denies lip swelling, tongue swelling or urticaria. Hematology: Patient denies easy bleeding or easy bruisability. Endocrinology: Patient denies polyuria, polydipsia, polyphagia or heat/cold intolerance. 14 point ROS otherwise negative except for positives noted above in HPI. Vital Signs Vital Signs Vital Signs: 06/01/25 19:09 06/01/25 20:09 06/01/25 21:00 Temperature 98.7 F Temperature Source Oral Pulse Rate 71 64 68 Respiratory Rate 21 H 18 18 Blood Pressure 139/85 H 140/85 H 149/90 H Blood Pressure Mean 103 103 109 Pulse Ox 98 97 96 Oxygen Delivery Method Room Air Room Air Room Air 06/01/25 22:00 06/01/25 23:00 Temperature Temperature Source Pulse Rate 66 64 Respiratory Rate 16 18 Blood Pressure 113/72 152/86 H Blood Pressure Mean 85 108 Pulse Ox 98 98 Oxygen Delivery Method Room Air Room Air Weight Weight: 282 lb 3.067 oz Body Mass Index (BMI) 42.9 Physical Exam Const alert, oriented x3 and no apparent distress Constitutional Narrative: Obese patient was nontoxic in appearance. General Appearance: cooperative HEENT normocephalic, head/scalp atraumatic, hearing grossly normal bilaterally and moist oral mucous membranes Eyes PERRL, EOMs intact bilaterally and conjunctivae normal Neck no lymphadenopathy, supple and no JVD Resp normal respiratory effort, no retractions, no use of accessory muscles and clear to auscultation bilaterally Cardio regular rate and regular rhythm GI normal to inspection, nondistended, normoactive bowel sounds, soft to palpation, non-tender and non-distended GI Narrative: Obese. Extremity normal to inspection, full ROM and no clubbing, cyanosis or edema Skin Skin Narrative: Patient has evidence of rash, abscess, wounds or jaundice. Neuro oriented x3, CN's II-XII intact bilaterally, moves all extremities and no focal motor deficits Sensorium / Orientation: awake, alert, oriented to person, oriented to place and oriented to time Speech: speech normal Psych affect normal Results Medical Records Data Attestation: I reviewed the patient's medical records Lab / Micro Data Attestation: I reviewed the patient's lab results. 06/01/25 20:19 06/01/25 20:19 Labs: Laboratory Results - last 24 hr 06/01/25 20:19: WBC 19.5 H, RBC 4.94, Hgb 13.8, Hct 41.2, MCV 83.4, MCH 27.9, MCHC 33.5, RDW Std Deviation 43.0, RDW Coeff of Melva 14.3, Plt Count 256, MPV 9.6, Immature Gran % (Auto) 1.300 H, Neut % (Auto) 76.5 H, Lymph % (Auto) 16.7 L, Spencer % (Auto) 4.1, Eos % (Auto) 1.1, Baso % (Auto) 0.3, Absolute Neuts (auto) 14.9 H, Absolute Lymphs (auto) 3.26, Nucleated RBC % 0, Sodium 137, Potassium 3.7, Chloride 99, Carbon Dioxide 25.1, Anion Gap 13, BUN 19, Creatinine 1.08, Estim Creat Clear Calc 102.01, Est GFR (MDRD) Non-Af 82, BUN/Creatinine Ratio 17.5, Glucose 103 H, Calcium 9.5, Troponin T High Sens 9 06/01/25 22:39: Troponin T Hi Sens 2 Hr < 6 Imaging Radiology Impression Chest X-Ray 06/01/25 20:26 IMPRESSION: NO ACUTE FINDINGS. Reading Location: [facility] Assessment & Plan Assessment/Plan (1) Chest pain: QUALIFIERS: Chest pain type: unspecified Qualified Code(s): R07.9 - Chest pain, unspecified (2) History of coronary artery stent placement: (3) Hypophosphatemia: (4) Morbid obesity with BMI of 40.0-44.9, adult: (5) JOSIAH (obstructive sleep apnea): (6) CLL (chronic lymphocytic leukemia): (7) Diabetes: QUALIFIERS: Diabetes mellitus type: type 2 Diabetes mellitus spinner tender insulin use: without spinner tender use Diabetes mellitus complication status: without complication Qualified Code(s): E11.9 - Type 2 diabetes mellitus without complications PLAN: Plan 1. Chest Pain; that improved after enteric-coated aspirin and nitroglycerin in the setting of previously known CAD; s/p DC with subsequent mid-LAD stent placement (2022) on baby aspirin and as needed SL NTG - Admit to PCU. Proceed with chemical stress test recommended to ER physician by thin film technician on-call. Most recent echocardiogram done here in September 2023 which revealed LVEF of ~55% with normal LV systolic function and no significant valve abnormalities with new repeat echocardiogram pending in a.m. to reassess. D-dimer ordered in ER with CTA of chest with IV contrast pending at this time to complete chest pain workup. Continue aspirin and as needed SL NTG. Give acetaminophen as needed for [id number] (level 1-5/10) pain or fever. Give morphine IV as needed for severe (level 6-10/10) pain. 2. Hypophosphatemia of 1.1 mg/dL present on admission complicating #1 - Give supplemental IV K-Phos and then recheck level to confirm repletion. 3. Leukocytosis of 19.5 K with Left-shift of 1.3% consistent with previously known CLL with no signs of infection plus negative UA and CXR compounding #1 & #2 - Viral respiratory panel pending from ER with a low-index of clinical suspicion. Check CBC daily to follow trend. 4. Morbid (class III) obesity; with BMI of 42.9 this admission plus JOSIAH; on BiPAP adding to the burden of disease outlined from #1 - #3 - Weight loss was recommended. Check TSH. This complicates his case may hamper recovery. 5. DM-2; of unknown control on metformin twice daily plus glimepiride and tirzepatide weekly adding to the medical complexity of #1 - #4 - Keep n.p.o. until stress test is completed and then start cardiac diet. Check FSBS q. AC/at bedtime plus SSI. We will hold his current diabetic regimen while inpatient. 6. Essential hypertension; on metoprolol and amlodipine nightly - Maintain present treatment plus give hydralazine IV prn for systolic blood pressure > 160 mmHg. 7. Hyperlipidemia; on atorvastatin - Resume statin and check Lipid Profile. 8. Hypothyroidism; on levothyroxine - Continue levothyroxine and check TSH. 9. Former tobacco abuse - Noted. 10. History of syncope and collapse - Noted with no evidence of recurrence at this time. 11. Depression with anxiety; on paroxetine - Present therapy to be continued as before. 12. History of sepsis with previous ESBL E. coli infection - Noted. 13. History of colitis - Stable with no evidence of recurrence at this time. 14. History of renal calculi - Noted. 15. OA - Give acetaminophen prn as outlined in #1. 15. DVT prophylaxis - Enoxaparin 40 mg sq BID. Total time: Approximately (but not less than) 75 minutes. Charges/Coding Visit Charges Inpatient E&M: 51561 Init Hosp L3
[2025-06-02 01:10] VITALS: BP 144/76; PULSE 62; O2SAT 95
[2025-06-02 01:22] LABS: Troponin T High Sens 4 HR < 6 ng/L (<=22)
[2025-06-02 01:24] LABS: D-Dimer Quantitative (DVT/PE) 0.31 FEU/ug/m (0.27-0.49)
[2025-06-02 01:42] LABS: Mucous, Urine 0 SEEN /hpf (<or=2+)
[2025-06-02 01:45] LABS: Color, Urine Yellow (Yellow); Glucose, Dipstick Normal (Normal); Ketone-Dipstick Negative (Negative); Leukocyte Esterase-Dipstick 25 /ul (Negative); Nitrite-Dipstick Negative (Negative); Occult Blood-Urine Negative /ul (Negative); Protein-Dipstick 30 mg/dl (Negative); Specific Gravity, Urine 1.025 (1.002-1.030); Urine Bilirubin Dipstick Negative (Negative)
--- NOTE | 2025-06-02 01:54 | CT_ITS ---
PROCEDURE: CTA CHEST W/WO CONTRAST 06/02/2025 REASON FOR EXAM: CHEST PAIN WITH NEGATIVE TROPONINS. EVAL FOR PE. TECHNIQUE: Procedure Code: [id number] Modality: CT Procedure: CTA CHEST W/WO CONTRAST Multiplanar Sagittal and Coronal images were obtained. CONTRAST: isovue 370 VOLUME: 100 mL One or more dose reduction techniques were used (e.g., Automated exposure control, adjustment of the mA and/or kV according to patient size, use of iterative reconstruction technique). RADIATION DOSE SUMMARY: CTDI Vol 8.61 mGy DLP :291.94 mGycm COMPARISON: none FINDINGS: No evidence of any filling defect in the main pulmonary trunk, bilateral main pulmonary arteries, segmental arteries and subsegmental arteries to suggest acute or chronic pulmonary embolism. Patent thoracic aorta. No intraluminal hypodense thrombi, dissecting intimal flaps or significant aneurysmal dilatation. No obvious cardiac abnormalities detected. No obvious pulmonary masses or consolidations. No pleural or pericardial sac collections. No pathologically enlarged lymph nodes are noted. Scanned osseous structures show no osseous destruction. Thoracic spondylosis. CT/CTA Chest W/WO Contrast IMPRESSION: No evidence of pulmonary arterial thromboembolism. No obvious pulmonary masses or consolidations. Reading [facility]
--- OUTSIDE RECORDS SUMMARY | 2025-06-02 01:57 | XMS RPT_ITS | CCD ---
Author Organization [facility] CliniSysd Care Team Providers Care Slasher Hand Name Role Phone Unavailable Unavailable Unavailable Swiatek, [...] Provider Ginger Lugo MD Primary Care Provider iGnger Lugo Unavailable Beau Dumont Unavailable UnavailDr. Ginger [...] Megan, Dr. Sen Li Referring Un available Graves, Dr. Chao Guevara Admitting Unav ailable Graves, Dr. Chao Guevara Attending Unav ailable Megan, Dr. Sen Li Referring Un available Graves, Dr. Chao Guevara Admitting Unav ailable Graves, Dr. Chao Guevara Attending Unav ailable Pema, Dr. Ginger Alegria Primary Care Unavail able [place], Dr. Ginger Alegria Primary Care Unavail able LEMDIANELYS, DO BEAU MARTINEZ Attending Unava ilable Megan, Dr. Sen Li Attending Un available Megan, Dr. Sen Li Admitting Un available [place], Dr. Ginger Alegria Primary Care Unavail able Megan, Dr. Sen Li Attending Un available Megan, Dr. Sen Li Admitting Un available [place], Dr. Ginger Alegria Primary Care Unavail able Megan, Dr. Sen Li Attending Un available Megan, Dr. Sen Li Admitting Un available Pema, Dr. Gingre Alegria Primary Care Unavail able Megan, Dr. Sen Li Attending Un available Megan, Dr. Sen Li Admitting Un available [place], Dr. Ginger Alegria Primary Care Unavail able [...] Unavailable Ginger Lugo MD Primary Care Provider [phone] Ginger Lugo MD Primary Care Provider LEBRON [...] Unavailable GINGER LUGO Primary Care Unavailable Mazin HEAD OF HISTORY.Maryam RUBIO Unavailable Suppan HEAD OF HISTORY.RAMIRO, Nuha A Unavailable RIANNA MEJIA Attending Unavailable GINGER LUGO Primary Care Unavailable PEMA, GINGER Alvares Primary Care Unavailable LEBRON RAPHAEL Attending Unavailable GINGER LUGO Primary Care Unavailable PROVIDER, UNKNOWN Referring Unavailable Suppan HEAD OF HISTORY.FUEL INJECTION SERVICER, Nuha A Unavailable Suppan HEAD OF HISTORY.RAMIRO, Nuha A Unavailable [phone] Pema, Ginger Primary Care Unavailable Pema, Ginger [...] Attending Unavailable ACUS, ROCCO W Referring Unavailable EPMA, GINGER Alvares Primary Care Unavailable ACUS, ROCCO W Admitting Unavailable Pema Ginger REICH Primary Care Provider [phone] NUHA MOSQUERA Attending Unavailable PEMA, GINGER Alvares [...] on above: Take 2 tablets by mo [facility] once daily. Take 2 tablets by mo [facility] twice daily. Take 2 tablets by mo [facility] two times a day. 24 hr metoprolol [...] for pain for up to 3 days. [id number] 200 actuat albuterol 0.09 mg/actuat metered dose [...] 11:21am docusate sodium 50 mg / sennosides, alf 8.6 mg oral tablet (3 sources) Start: [...] weekly bmp, cbc, and LFT. 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 - Fitted patient for a medial extension educator brace to reduce pressure on the affected [...] these instructions. Informed Consent Consent Obtained: Verbal [place] Protocol SIGN IN TIME OUT Recording using [employer] software for draft documentation of the visit was discussed with the patient/authorized customer solutions representative; all questions welcomed and answered. Patient/authorized customer solutions representative agreed to proceed Mary Dale MA 05/26/2025 3:32 PM Signed PT ASSESSMENT - CASTING ROOM Nick presents for Application of brace. Applied Large OA medial extension educator brace to Right knee. Patient electronically signed [...] [Z96.652] Order(s):Large Joint Arthro/Inj: R knee joint [EIO638] Order #: [id number] [] BUPivacaine (PF) 0.5 % (5 mg/mL) 4 mL injectionDisp: Rfl: [] lidocaine (PF) 10 mg/m (more content not included)... [facility] NICK LOPES ([id number]) 1970 [facility] Date Time Provider Department 02/08/25 GINGER LUGO [facility] During your visit today, we recorded the following information about you: Asha Sy LPN 02/08/2025 11:00 AM Signed Sent patient no show letter #1 Allergies As of Date: 02/08/2025 (No Known Allergies) Date Reviewed: 10/24/2024 Reviewed by: Nuha Mosquera APRN.FUEL INJECTION SERVICER - Fully Assessed Reason for Visit: Letter [...] [Z82.49] Overweight [E66.3] 09/25/2023 Tobacco Use Disord-Unsp [BHF0896] SHOULDER REGION DIS NEC [M25.819] 01/27/2007 01/02/2009 JOINT PAIN-PELVIS [M25.559] 06/27/2008 01/02/2009 SPRAIN LUMBAR REGION [S33.5XXA] 06/27/2008 01/02/2009 JOINT PAIN-UP/ARM [M25.529] 06/27/2008 06/27/2008 JOINT PAIN-SHLDER [M25.519] 06/27/2008 01/02/2009 Routine General Medical Examination at [facility]*01/02/2009 12/14/2013 Class: Chronic Thoracic or Lumbosacral Neuritis or Radiculitis*02/23/2009 12/14/2013 Hypothyroidism [E03.9] 10/09/2009 Essential hypertension, benign [I10] 02/06/2010 Leukocytosis [D72.829] 09/19/2011 03/28/2024 Sprain of lumbar region [S33.5XXA] 10/18/2012 12/14/2013 Backache, unspecified [M54.9] 11/11/2012 12/14/2013 Cervicalgia [M54.2] 04/20/2015 Lumbago [M54.50] 04/20/2015 03/28/2024 Concussion without loss of consciousness [S06.0*05/08/2015 04/23/2018 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 Normal [facility] CNCOon 01-11-2025 CNCO Letter Text Normal [facility] CNPNon 01-04-2025 [facility] ([id number]) 1970 [facility] Date Time Provider Department 01/04/25 [facility] your visit today, we recorded [...] glimepiride 2 weeks ago [facility] put on after total knee to prevent clots so will need to call ortho office to see if continue . HOWIE Cruz Lisa, MA 01/10/2025 11:44 AM Signed See nurse triage 01/05/25 Allergies As of Date: 01/04/2025 (No Known Allergies) Date Reviewed: 10/24/2024 Reviewed by: Nuha Mosquera APRN.FUEL INJECTION SERVICER - Fully Assessed Reason for Visit: Refill [...] [Z82.49] Overweight [E66.3] 09/25/2023 Tobacco Use Disord-Unsp [VRQ1582] SHOULDER REGION DIS NEC [M25.819] 01/27/2007 01/02/2009 JOINT PAIN-PELVIS [M25.559] 06/27/2008 01/02/2009 SPRAIN LUMBAR REGION [S33.5XXA] 06/27/2008 01/02/2009 JOINT PAIN-UP/ARM [M25.529] 06/27/2008 06/27/2008 JOINT PAIN-SHLDER [M25.519] 06/27/2008 01/02/2009 Routine General Medical Examination at [facility]*01/02/2009 12/14/2013 Class: Chronic Thoracic or Lumbosacral Neuritis or Radiculitis*02/23/2009 12/14/2013 Hypothyroidism [E03.9] 10/09/2009 Essential hypertension, benign [I10] 02/06/2010 Leukocytosis [D72.829] 09/19/2011 03/28/2024 Sprain of lumbar region [S33.5XXA] 10/18/2012 12/14/2013 Backache, unspecified [M54.9] 11/11/2012 12/14/2013 Cervicalgia [M54.2] 04/20/2015 Lumbago [M54.50] 04/20/2015 03/28/2024 Concussion without loss of consciousness [S06.0*05/08/2015 04/23/2018 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*05/08/2015 Urinary incontinence [R32] 06/13/2015 Frequency [SLC3025] 06/13/2015 04/23/2018 Urgency of urination [R39.15] 06/13/2015 04/23/2018 Nocturia [R35.1] 06/13/2015 03/28/2024 Central sleep apnea [G47.31] 04/02/2018 Diabetes mellitus type 2, controlled, without c*03/25/2021 Obesity, Class III, BMI 40-49.9 (morbid obesity (more content not included)... Normal [facility] 12 Lead [place] [facility] [place]2024 12 Lead EKG performed by [id number] [place] [address] 12 Lead EKG [place] [facility] 10/14/24 1556 MR#: [id number] Acct: [id number] Name: ROMEL LOPES Rep #: [id number] : 1970 53 From: Lebron Mackenzie PERCUSSION TUNER PERCUSSION TUNER-C Attending Dr: Lebron Mackenzie NP-C Status: DEP AMB Ordering Dr: Lebron Mackenzie PERCUSSION TUNER PERCUSSION TUNER-C Date: 10/14/24 [place] [facility] Sex: M C Admitted: BMS/12 Lead EKG performed [place] [facility] ECG Report Interpretation ---Sinus Rhythm -RSR(V1) -nondiagnostic. PROBABLY NORMALElectronically signed on 10/19/2024 at 09:38 by Zheng Hurtadowood Software Version [id number] 10/19/24 0944 Date Lebron DAI CC: Dr. Ginger Lugo MD Date Dictated: 10/14/24 1556 Date Transcribed: 10/14/241555 Coloring Room Worker: ELLIOT Signed Normal [facility] Cardiology Visit Reporton Cardiology Visit Report [facility] [address] [place] [address] OFFICE VISIT Date of Service: 10/14/24 MR#: [id number] Acct: [id number] Name: ROMEL LOPES Rep #: [id number] : 1970 Provider: MALAIKA castillo Age/Sex: 53/M [place] [facility] Status: Signed HPI HPI History of [...] Rate (L/min) 92 Intake Visit Reasons: S/P [facility] 10/09/23 Sand Temperer Required: No Accompanied by: Is patient in [...] you fallen in the past year?: Yes [facility] Medical History Infection due to ESBL-producing Escherichia coli Anxiety Depression Diabetes Kidney stones Former smoker BiPAP (biphasic positive airway pressure) dependence Sleep apnea Myocardial infarct Hypertension Atherosclerosis of coronary artery of [place] heart without angina pectoris Leukocytosis JOSIAH (obstructive [...] Musc: Nega (more content not included)... Normal [facility] 10-05-2024 [facility] Tele[facility] ([facility]) NICK LOPES ([id number]) 1970 [facility] Date Time Provider Department 10/05/24 [place] [facility] During your visit today, we recorded the following information about you: Danielle Riojas MA 10/05/2024 12:46 PM Signed Pt's calling to see if the paperwork from [employer] has been received and if so, if it has been completed. It is for short term disability. It would have come from [employer] via mail or fax. Please review and [...] PM Signed Paperwork completed and returned to [facility]. Confirmation received. Copy sent for scanning. [...] [Z82.49] Overweight [E66.3] 09/25/2023 Tobacco Use Disord-Unsp [MWH8570] SHOULDER REGION DIS NEC [M25.819] 01/27/2007 01/02/2009 JOINT PAIN-PELVIS [M25.559] 06/27/2008 01/02/2009 SPRAIN LUMBAR REGION [S33.5XXA] 06/27/2008 01/02/2009 JOINT PAIN-UP/ARM [M25.529] 06/27/2008 06/27/2008 JOINT PAIN-SHLDER [M25.519] 06/27/2008 01/02/2009 Routine General Medical Examination at [facility]*01/02/2009 12/14/2013 Class: Chronic Thoracic or Lumbosacral Neuritis or Radiculitis*02/23/2009 12/14/2013 Hypothyroidism [E03.9] 10/09/2009 Essential hypertension, benign [I10] 02/06/2010 Leukocytosis [D72.829] 09/19/2011 03/28/2024 Sprain of lumbar region [S33.5XXA] 10/18/2012 12/14/2013 Backache, unspecified [M54.9] 11/11/2012 12/14/2013 Cervicalgia [M54.2] 04/20/2015 Lumbago [M54.50] 04/20/2015 03/28/2024 Concussion without loss of consciousness [S06.0*05/08/2015 04/23/2018 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 Normal [facility] CBC panel Auto (Bld)on 10-04 Erythrocyte distribution width (RBC) [Ratio] 14.6 % Normal 11.5-15.0 [facility] Comment on above: Order Comment: Speci men Type: BLOOD SPECIMENOrdering Facility: [facility] Address: [address] [place] [address] Performed By: #### 5 8410-2 ####[facility] LABCLIA [id number] [place] [address] [place] Hematocrit (Bld) [Volume fraction] 44.1 % Normal 39.0-51.0 [facility] Comment on above: Order Comment: Speci men Type: BLOOD SPECIMENOrdering Facility: [facility] Address: [address] [place] [address] Performed By: #### 5 8410-2 ####[facility] LABCLIA [id number] [place] [address] [place] Hemoglobin (Bld) [Mass/Vol] 13.9 g/dL Normal 13.0-17.0 [facility] Comment on above: Order Comment: Speci men Type: BLOOD SPECIMENOrdering Facility: [facility] Address: [address] [place] [address] Performed By: #### 5 8410-2 ####[facility] LABIA [id number] [place] [address] [place] MCH (RBC) [Entitic mass] 28.1 pg Normal 26.0-34.0 [facility] Comment on above: Order Comment: Speci men Type: BLOOD SPECIMENOrdering Facility: [facility] Address: [address] [place] [address] Performed By: #### 5 8410-2 ####[facility] LABIA [id number] [place] [address] [place] MCHC (RBC) [Mass/Vol] 31.5 g/dL Normal 30.5-36.0 [facility] Comment on above: Order Comment: Speci men Type: BLOOD SPECIMENOrdering Facility: [facility] Address: [address] [place] [address] Performed By: #### 5 8410-2 ####[facility] LABIA [id number] [place] [address] [place] MCV (RBC) [Entitic vol] 89.1 fL Normal 80.0-100.0 [facility] Comment on above: Order Comment: Speci men Type: BLOOD SPECIMENOrdering Facility: [facility] Address: [address] [place] [address] Performed By: #### 5 8410-2 ####[facility] LABIA [id number] [place] [address] [place] Nucleated RBC (Bld) [#/Vol] 10*3/uL Normal <0.01 [facility] Comment on above: Order Comment: Speci men Type: BLOOD SPECIMENOrdering Facility: [facility] Address: [address] [place] [address] Performed By: #### 5 8410-2 ####[facility] LABCLIA [id number] [facility] [place] [address] [place] Platelet mean volume (Bld) [Entitic vol] 11.2 fL Normal 9.0-12.7 [facility] Comment on above: Order Comment: Speci men Type: BLOOD SPECIMENOrdering Facility: [facility] Address: [address] [place] [address] Performed By: #### 5 8410-2 ####[facility] LABCLIA [id number] [place] [address] [place] Platelets (Bld) [#/Vol] 145 10*3/uL Low 150-400 [facility] Comment on above: Order Comment: Speci men Type: BLOOD SPECIMENOrdering Facility: [facility] Address: [address] [place] [address] Performed By: #### 5 8410-2 ####[facility] LABCLIA [id number] [place] [address] [place] RBC (Bld) [#/Vol] 4.95 10*6/uL Normal 4.20-6.00 [facility] Comment on above: Order Comment: Speci men Type: BLOOD SPECIMENOrdering Facility: [facility] Address: [address] [place] [address] Performed By: #### 5 8410-2 ####[facility] LABCLIA [id number] [place] [address] [place] WBC (Bld) [#/Vol] 9.17 10*3/uL Normal 3.70-11.00 [facility] Comment on above: Order Comment: Speci men Type: BLOOD SPECIMENOrdering Facility: [facility] Address: [address] [place] [address] Performed By: #### 5 8410-2 ####[facility] LABCLIA [id number] [facility] [id number] [place] [address] [place] [facility] CNOVon 10-04-2024 CNOV Office Visit ([facility] ) NICK LOPES ([id number]) 1970 [facility] Date Time Provider Department 10/04/24 4:00 PM [...] done in 2022. Sees Dr Patton at [facility] soon. Shortness of breath: no [...] Abs Lymph 1.00 - 4.00 k/uL 2.36 Sierra% % 5.0 Abs Sierra <0.87 k/uL 0.72 Eosin% % 0.5 Abs [...] Fam hx-cardiovas dis NEC n/a father, of [place] at 45 Hypothyroid Other and unspecified hyperlipidemia Sep 14 (dx'd in hospital for atypical CP) Overweight(278.02) Sleep apnea Tobacco use disorder complicating , childbirth, or the puerperium, unspecified as to episode of care or not applicable 1989 Unspecified essential hypertension PAST SURGICAL HISTORY Procedure Laterality Date EXCISION OF BENIGN LESION, COMPLICATED 2004 Lipoma, abd (more content not included)... Normal [facility] Carie 09-22-2024 [facility] Telephone ([facility]) NICK LOPES ([id number]) 1970 M [facility] Date Time Provider Department 09/22/24 [place] During your visit today, we recorded the following information about you: Teagan Vergara 09/22/2024 10:46 AM Signed Patient's Liliana calling in requesting a CD to be made of patient's MRI completed on 05/26/24, and his knee and leg xray on 09/19/2024. Please let Liliana know once completed. Liliana's number: [phone] Teagan Vergara September 22, 2024 10:44 AM Kaylie Alvarez PSS 09/22/2024 1:03 PM Signed CD READY FOR PASTE UP ARTIST AT [facility] LM TO LET PT KNOW Allergies [...] [Z82.49] Overweight [E66.3] 09/25/2023 Tobacco Use Disord-Unsp [LCJ3657] SHOULDER REGION DIS NEC [M25.819] 01/27/2007 01/02/2009 JOINT PAIN-PELVIS [M25.559] 06/27/2008 01/02/2009 SPRAIN LUMBAR REGION [S33.5XXA] 06/27/2008 01/02/2009 JOINT PAIN-UP/ARM [M25.529] 06/27/2008 06/27/2008 JOINT PAIN-SHLDER [M25.519] 06/27/2008 01/02/2009 Routine General Medical Examination at [facility]*01/02/2009 12/14/2013 Class: Chronic Thoracic or Lumbosacral Neuritis or Radiculitis*02/23/2009 12/14/2013 Hypothyroidism [E03.9] 10/09/2009 Essential hypertension, benign [I10] 02/06/2010 Leukocytosis [D72.829] 09/19/2011 03/28/2024 Sprain of lumbar region [S33.5XXA] 10/18/2012 12/14/2013 Backache, unspecified [M54.9] 11/11/2012 12/14/2013 Cervicalgia [M54.2] 04/20/2015 Lumbago [M54.50] 04/20/2015 03/28/2024 Concussion without loss of consciousness [S06.0*05/08/2015 04/23/2018 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 Normal [facility] CNOVon 09-19-2024 CNOV Office Visit ([facility] ) NICK LOPES ([id number]) 1970 [facility] Date Time Provider Department 09/19/24 1:00 PM [...] 08/09/2024. Consult to the Endocrinology and Metabolic [place] (MIKAL) recommended prior to surgery. Area Deprivation [...] Mellitus Type 2, Controlled, Without Complications ([facility]) Obesity, Class Iii, Bmi 40-49.9 (Morbid Obesity) ([facility]) Situational Stress Theo (Generalized Anxiety Disorder) Josiah (Obstructive Sleep Apnea) Ddd (Degenerative Disc Disease), Lumbar Spinal Stenosis of Lumbar Region Without Neurogenic Claudication Cervical Stenosis of Spine Coronary Artery Disease Involving [place] Coronary Artery of [place] Heart Without Angina P (more content not included)... Normal [facility] Panel Informationon 09-19 IMPRESSION: Osteoarthrosis Coloring Room Worker: [email or web address] Transcribe Date/Time: Sep 19 2024 2:55P Dictated by : ILIR HUFF MD This examination was interpreted and the report reviewed and electronically signed by: ILIR HUFF MD on Sep 19 2024 2:57PM [facility] Radiology Study observation (narrative) [facility] No Panel InformationOrdered By: Ccf Provider on 09-19-2024 [facility] XR KNEE 4V AP/PA BOTH+LAT/ME R LTon [...] AP/PA BOTH+LAT/SEVERO LT, XR LEG FRONTL HIP-[facility] AXIS COMPARISON: 03/28/2024 FINDINGS: Advanced medial joint compartment narrowing, nearly wasc-tl-szkj in appearance with tricompartment spur formation, not significantly changed. New small joint effusion. No fracture or dislocation. AP long leg views show no discrete osseous lesion. Medial joint compartment narrowing bilaterally, left greater than right with slight genu valgus varus. Measurements will be obtained by the ordering team. IMPRESSION: Osteoarthrosis Coloring Room Worker: PSCB Transcribe Date/Time: Sep 19 2024 2:55P Dictated by : ILIR HUFF MD This examination was interpreted and the report reviewed and electronically signed by: ILIR HUFF MD on Sep 19 2024 2:57PM EST [id number] Normal [facility] XR Knee - left 4 Viewson * [...] AP/PA BOTH+LAT/SEVERO LT, XR LEG FRONTL HIP-[facility] AXIS COMPARISON: 03/28/2024 FINDINGS: Advanced medial joint compartment narrowing, nearly oazf-gb-owdm in appearance with tricompartment spur formation, not significantly changed. New small joint effusion. No fracture or dislocation. AP long leg views show no discrete osseous lesion. Medial joint compartment narrowing bilaterally, left greater than right with slight genu valgus varus. Measurements will be obtained by the ordering team. [facility] Provider, [facility] [place] - 09/19/2024 * * *Final Report* * * DATE OF EXAM: Sep 19 2024 1:50PM MDX 5202 - XR KNEE 4V AP/PA BOTH+LAT/SEVERO LT / PROCEDURE REASON: multiple diagnoses * * * * Physician Interpretation * * * * PROCEDURE: Left knee and mechanical axis INDICATION: Pain in both knees, unspecified chronicity TECHNIQUE: XR KNEE 4V AP/PA BOTH+LAT/SEVERO LT, XR LEG FRONTL HIP-[facility] AXIS COMPARISON: 03/28/2024 FINDINGS: Advanced medial joint compartment narrowing, nearly ywdn-my-pssb in appearance with tricompartment spur formation, not significantly changed. New small joint effusion. No fracture or dislocation. AP long leg views show no discrete osseous lesion. Medial joint compartment narrowing bilaterally, left greater than right with slight genu valgus varus. Measurements will be obtained by the ordering team. IMPRESSION IMPRESSION: Osteoarthrosis Coloring Room Worker: [email or web address] Transcribe Date/Time: Sep 19 2024 2:55P Dictated by : ILIR HUFF MD This examination was interpreted and the report reviewed and electronically signed by: ILIR HUFF MD on Sep 19 2024 2:57PM EST [facility]2024 XR LEG FRONTL HIP[facility] AXIS * * *Final Report* * * DATE OF EXAM: Sep 19 2024 1:50PM MDX 5216 - XR LEG FRONTL HIP-[facility] AXIS / PROCEDURE REASON: multiple diagnoses * * * * Physician Interpretation * * * * PROCEDURE: Left knee and mechanical axis INDICATION: Pain in both knees, unspecified chronicity TECHNIQUE: XR KNEE 4V AP/PA BOTH+LAT/SEVERO LT, XR LEG FRONTL HIP-[facility] AXIS COMPARISON: 03/28/2024 FINDINGS: Advanced medial joint compartment narrowing, nearly nbjm-qn-bktb in appearance with tricompartment spur formation, not significantly changed. New small joint effusion. No fracture or dislocation. AP long leg views show no discrete osseous lesion. Medial joint compartment narrowing bilaterally, left greater than right with slight genu valgus varus. Measurements will be obtained by the ordering team. IMPRESSION: Osteoarthrosis Coloring Room Worker: MICHOACANO Transcribe Date/Time: Sep 19 2024 2:55P Dictated by : ILIR HUFF MD This examination was interpreted and the report reviewed and electronically signed by: ILIR HUFF MD on Sep 19 2024 2:57PM EST [id number] [facility] XR Lower extremity - bilater al AP W standingon 09-19-2024 * * *Final Report* * * DATE OF EXAM: Sep 19 2024 1:50PM MDX 5216 - XR LEG FRONTL HIP-[facility]L [facility] AXIS / PROCEDURE REASON: multiple diagnoses * * * * Physician Interpretation * * * * PROCEDURE: Left knee and mechanical axis INDICATION: Pain in both knees, unspecified chronicity TECHNIQUE: XR KNEE 4V AP/PA BOTH+LAT/SEVERO LT, XR LEG FRONTL HIP-ANKL MECH AXIS COMPARISON: 03/28/2024 FINDINGS: Advanced medial joint compartment narrowing, nearly fsxc-of-taqo in appearance with tricompartment spur formation, not significantly changed. New small joint effusion. No fracture or dislocation. AP long leg views show no discrete osseous lesion. Medial joint compartment narrowing bilaterally, left greater than right with slight genu valgus varus. Measurements will be obtained by the ordering team. [facility] Provider, Brian Michael - 09/19/2024 * * *Final Report* * * DATE OF EXAM: Sep 19 2024 1:50PM MDX 5216 - XR LEG FRONTL HIP-[facility] AXIS / PROCEDURE REASON: multiple diagnoses * * * * Physician Interpretation * * * * PROCEDURE: Left knee and mechanical axis INDICATION: Pain in both knees, unspecified chronicity TECHNIQUE: XR KNEE 4V AP/PA BOTH+LAT/SEVERO LT, XR LEG FRONTL HIP-[facility] AXIS COMPARISON: 03/28/2024 FINDINGS: Advanced medial joint compartment narrowing, nearly nbwr-sr-walc in appearance with tricompartment spur formation, not significantly changed. New small joint effusion. No fracture or dislocation. AP long leg views show no discrete osseous lesion. Medial joint compartment narrowing bilaterally, left greater than right with slight genu valgus varus. Measurements will be obtained by the ordering team. IMPRESSION IMPRESSION: Osteoarthrosis Coloring Room Worker: MICHOACANO Transcribe Date/Time: Sep 19 2024 2:55P Dictated by : ILIR HUFF MD This examination was interpreted and the report reviewed and electronically signed by: ILIR HUFF MD on Sep 19 2024 2:57PM [facility] CNOVon 09-15-2024 CNOV Office Visit (FAMPWS ) NICK LOPES ([id number]) 1970 [facility] Date Time Provider Department 09/15/24 11:20 AM [facility] During your visit today, we recorded the following information about you: Temperature Pulse Blood pressure Weight 97.1 degrees 98/minute 130/80 145.6 kg Nuha Mosquera, HEAD OF HISTORY.FUEL INJECTION SERVICER 09/15/2024 12:11 PM Addendum This is a [...] Voltaren gel didn't help 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 will follow periodically Fam hx-cardiovas dis NEC n/a father, of [place] at 45 Hypothyroid Other and unspecified hyperlipidemia [...] BP 130/80 (more content not included)... [facility] ([id number]) 1970 [facility] Date Time Provider Department 09/15/24 [facility] During your visit today, we recorded the following information about you: Batool Ballesteros RN 09/15/2024 12:25 PM Signed Spouse (Liliana) calls to report that the order for knee immobilizer is not available at [facility] [place]. Liliana reports what they can offer is a reaction web brace (doesn't completely immobilize the knee but offers support). If provider agrees new order would have to be sent to [facility] [place] for reaction web brace. Pended requested order with previous diagnosis for review. NEL Brooks Jacqueline A, APRN.RAMIRO 09/15/2024 12:28 PM Signed Done. Thanks for update Allergies As of Date: 09/15/2024 (No Known Allergies) Date Reviewed: 09/15/2024 Reviewed by: Nuha Mosquera APRN.FUEL INJECTION SERVICER - Fully Assessed Reason for Visit: Orders [681] Primary Visit Diagnosis:Primary osteoarthritis of left knee [M17.12] Order(s):DME SUPPLY OR ACCESSORY, NOS [[id number]] Order #: [id number] Prescriptions as of 09/15/2024 - Capsaicin 0.1 [...] [Z82.49] Overweight [E66.3] 09/25/2023 Tobacco Use Disord-Unsp [GGP6735] SHOULDER REGION DIS NEC [M25.819] 01/27/2007 01/02/2009 JOINT PAIN-PELVIS [M25.559] 06/27/2008 01/02/2009 SPRAIN LUMBAR REGION [S33.5XXA] 06/27/2008 01/02/2009 JOINT PAIN-UP/ARM [M25.529] 06/27/2008 06/27/2008 JOINT PAIN-SHLDER [M25.519] 06/27/2008 01/02/2009 Routine General Medical Examination at [facility]*01/02/2009 12/14/2013 Class: Chronic Thoracic or Lumbosacral Neuritis or Radiculitis*02/23/2009 12/14/2013 Hypothyroidism [E03.9] 10/09/2009 Essential hypertension, benign [I10] 02/06/2010 Leukocytosis [D72.829] 09/19/2011 03/28/2024 Sprain of lumbar region [S33.5XXA] 10/18/2012 12/14/2013 Backache, unspecified [M54.9] 11/11/2012 12/14/2013 Cervicalgia [M54.2] 04/20/2015 Lumbago [M54.50] 04/20/2015 03/28/2024 Concussion without loss of consciousness [S06.0*05/08/2015 04/23/2018 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 Normal [facility] ED Prov Noteon 09-13-2024 ED Prov Note ED PROVIDER NOTE [facility] NAME: Nick Lopes AGE: 53 y.o. : 1970 VISIT DATE: 09/13/2024 CSN: [id number] PCP: Ginger Lugo MD Chief Complaint Patient [...] Insecurity: No Food Insecurity (02/01/2020) Received from [facility] Hunger Vital Sign Worried About Running Out of Food in the Last Year: Never true Ran Out of Food in the Last Year: Never true Transportation Needs: No Transportation Needs (02/01/2020) Received from [facility] PRAPARE - Transportation Lack of Transportation (Medical): No Lack of Transportation (Non-Medical): No Physical Activity: Inactive (02/01/2020) Received from [facility] Exercise Vital Sign Days of Exercise per Week: 0 days Minutes of Exercise per Session: 0 min Stress: No Stress Concern Present (02/01/2020) Received from [facility] of Occupational Health - Occupational Stress Questionnaire Feeling of Stress : Not at all Social Connections: Moderately Integrated (02/01/2020) Received from [facility] Social Connection and Isolation Panel [NHANES] Frequency of Communication with Friends and Family: Twice a week Frequency of Social Gatherings with Friends and Family: Never Attends Protestant Services: More than 4 times per year Active Member of Clubs or Organizations: Yes Attends Club or Organization Meetings: Never Marital Status: Housing Stability: Low Risk (12/01/2021) Received from [facility] Housing Stability Vital Sign Unable to Pay [...] protrusion to the (more content not included)... [facility] 09-09-2024 [facility] Telephone (ORTHWS) NICK LOPES ([id number]) 1970 [facility] Date Time Provider Department 09/09/24 TORSTEN [...] Torsten Aviles V, DO York, Jessica, LPN; [facility] (8:30 AM) Please schedule patient to see Ortho surgery for consultation on chronic knee pain, OA, not responding to conservative treatment. Torsten Aviles DO Please assist patient with an appointment to see Dr. Jose Loo or Wade Stone at [facility]. Thank you! Pura Jeffers 09/13/2024 9:39 AM [...] [Z82.49] Overweight [E66.3] 09/25/2023 Tobacco Use Disord-Unsp [BOE9211] SHOULDER REGION DIS NEC [M25.819] 01/27/2007 01/02/2009 JOINT PAIN-PELVIS [M25.559] 06/27/2008 01/02/2009 SPRAIN LUMBAR REGION [S33.5XXA] 06/27/2008 01/02/2009 JOINT PAIN-UP/ARM [M25.529] 06/27/2008 06/27/2008 JOINT PAIN-SHLDER [M25.519] 06/27/2008 01/02/2009 Routine General Medical Examination at [facility]*01/02/2009 12/14/2013 Class: Chronic Thoracic or Lumbosacral Neuritis or Radiculitis*02/23/2009 12/14/2013 Hypothyroidism [E03.9] 10/09/2009 Essential hypertension, benign [I10] 02/06/2010 Leukocytosis [D72.829] 09/19/2011 03/28/2024 Sprain of lumbar region [S33.5XXA] 10/18/2012 12/14/2013 Backache, unspecified [M54.9] 11/11/2012 12/14/2013 Cervicalgia [M54.2] 04/20/2015 Lumbago [M54.50] 04/20/2015 03/28/2024 Concussion without loss of consciousness [S06.0*05/08/2015 04/23/2018 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*05/08/2015 Urinary incontinence [R32] 06/13/2015 Frequency [WLS4287] 06/13/2015 04/23/2018 Urgency of urination [R39.15] 06/13/2015 04/23/2018 Nocturia [R35.1] 06/13/2015 03/28/2024 Central sleep apnea [G47.31] 04/02/2018 Diab (more content not included)... Normal [facility] CNOVon 08-26-2024 CNOV Office Visit (FRFHWS ) MARIANNENICK ([id number]) 1970 [facility] Date Time Provider Department 08/26/24 3:30 PM TORSTEN AVILES V [facility] During your visit today, we recorded the following information about you: Mary Dale MA 08/26/2024 3:48 PM Signed AMB ROOMING INTAKE FLOWSHEET DATA Pain Pain Level: 8 Pain Location: Knee-Left Description: Aching, Sharp, Stabbing, Stiffness Duration Amount of Time: (ongoing) Frequency: Continuous Intervention/Comfort measure: Exercise, Medication, Other: See comment, Cold (muscle rub) Durolane injection into left knee LOT # [id number] EXP 01/04/2027 HOWIE Mendoza Dennis, V, DO [...] Exercise;Medication;Oth er: See comment;Cold muscle rub FREDY Paredse continues to have left medial knee pain. [...] Mellitus Type 2, Controlled, Without Complications ([facility]) Obesity, Class Iii, Bmi 40-49.9 (Morbid Obesity) ([facility]) Situational Stress Theo (Generalized Anxiety Disorder) Josiah (Obstructive Sleep Apnea) Ddd (Degenerative Disc Disease), Lumbar Spinal Stenosis of Lumbar Region Without Neurogenic Claudication Cervical Stenosis of Spine Coronary Artery Disease Involving [place] Coronary Artery of [place] Heart Without Angina Pectoris S/P Ptca (Percutaneous [...] Fam hx-cardiovas dis NEC n/a father, of [place] at 45 Hypothyroid Other and unspecified hyperlipidemia [...] with br (more content not included)... Normal [facility] Large Joint Arthro/Inj: L kn ee jointon 08-26-2024 Torsten Aviles V, DO 08/26/2024 3:48 PM Large Joint Arthro/Inj: L knee joint Informed Consent Consent Obtained: Verbal [place] Protocol A moment to CARE was completed. [...] the patient voiced understanding of these instructions. [facility] Carie 08-10-2024 [facility] Telephone (FAMPWS) NICK LOPES ([id number]) 1970 [facility] Date Time Provider Department 08/10/24 GINGER [...] use of insulin (HCC) [E11.9] Order(s):HEMOGLOBIN A1C [GKGPG8G] Order #: [id number] FUTURE COMPLETE BLOOD COUNT [SQCBC] Order #: [id number] FUTURE Prescriptions as of 08/10/2024 - predniSONE [...] [Z82.49] Overweight [E66.3] 09/25/2023 Tobacco Use Disord-Unsp [HFP9512] SHOULDER REGION DIS NEC [M25.819] 01/27/2007 01/02/2009 JOINT PAIN-PELVIS [M25.559] 06/27/2008 01/02/2009 SPRAIN LUMBAR REGION [S33.5XXA] 06/27/2008 01/02/2009 JOINT PAIN-UP/ARM [M25.529] 06/27/2008 06/27/2008 JOINT PAIN-SHLDER [M25.519] 06/27/2008 01/02/2009 Routine General Medical Examination at [facility]*01/02/2009 12/14/2013 Class: Chronic Thoracic or Lumbosacral Neuritis or Radiculitis*02/23/2009 12/14/2013 Hypothyroidism [E03.9] 10/09/2009 Essential hypertension, benign [I10] 02/06/2010 Leukocytosis [D72.829] 09/19/2011 03/28/2024 Sprain of lumbar region [S33.5XXA] 10/18/2012 12/14/2013 Backache, unspecified [M54.9] 11/11/2012 12/14/2013 Cervicalgia [M54.2] 04/20/2015 Lumbago [M54.50] 04/20/2015 03/28/2024 Concussion without loss of consciousness [S06.0*05/08/2015 04/23/2018 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 Normal [facility] CBC W Auto Differential pane l (Bld)on 08-09-2024 Basophils (Bld) [#/Vol] 0.07 10*3/uL [facility] Basophils/100 WBC (Bld) 0.5 % C [facility] Differential cell count method Nom (Bld) Auto [facility] Eosinophils (Bld) [#/Vol] 0.07 10*3/uL [facility] Eosinophils/100 WBC (Bld) 0.5 % [facility] Erythrocyte distribution width (RBC) [Ratio] 15.6 % High 11.5 - 15.0 % [facility] Hematocrit (Bld) [Volume fraction] 45.9 % 39.0 - 51.0 % [facility] Hemoglobin (Bld) [Mass/Vol] 14.5 g/dL 13.0 - 17.0 g/dL [facility] Immature granulocytes (Bld) [#/Vol] 0.19 10*3/uL High [facility] Immature granulocytes/100 WBC (Bld) 1.3 % [facility] Interpretation and review of laboratory results Abnormal [facility] Lymphocytes (Bld) [#/Vol] 2.36 10*3/uL [facility] Lymphocytes/100 WBC (Bld) 16.4 % [facility] MCH (RBC) [Entitic mass] 27.5 pg 26.0 - 34.0 pg [facility] MCHC (RBC) [Mass/Vol] 31.6 g/dL 30.5 - 36.0 g/dL [facility] MCV (RBC) [Entitic vol] 87.1 fL 80.0 - 100.0 fL [facility] Monocytes (Bld) [#/Vol] 0.72 10*3/uL [facility] Monocytes/100 WBC (Bld) 5.0 % C [facility] Neutrophils (Bld) [#/Vol] 10.99 10*3/uL High [facility] Neutrophils/100 WBC (Bld) 76.3 % [facility] Nucleated RBC (Bld) [#/Vol] [facility] Nucleated RBC/100 WBC (Bld) [Ratio] 0.0 % /100 WBC [facility] Platelet mean volume (Bld) [Entitic vol] 10.6 fL 9.0 - 12.7 fL [facility] Platelets (Bld) [#/Vol] 165 10*3/uL [facility] RBC (Bld) [#/Vol] 5.27 10*6/uL 4.20 - 6.0 0 m/uL [facility] WBC (Bld) [#/Vol] 14.40 10*3/uL [facility] Basophils (Bld) [#/Vol] 0.07 10*3/uL Normal <0.11 [facility] Comment on above: Order Comment: Speci men Type: BLOOD SPECIMENOrdering Facility: [facility] Address: [address] [place] [address] Performed By: #### 5 7021-8 ####[facility] LABCLIA [id number] [place] [address] [place] Basophils/100 WBC (Bld) 0.5 % Normal [facility] Comment on above: Order Comment: Speci men Type: BLOOD SPECIMENOrdering Facility: [facility] Address: [address] [place] [address] Performed By: #### 5 7021-8 ####[facility] LABCLIA [id number] [place] [address] [place] Differential cell count method Nom (Bld) Auto Normal [facility] Comment on above: Order Comment: Speci men Type: BLOOD SPECIMENOrdering Facility: [facility] Address: [address] [place] [address] Performed By: #### 5 7021-8 ####[facility] LABCLIA [id number] [place] [address] [place] Eosinophils (Bld) [#/Vol] 0.07 10*3/uL Normal <0.46 [facility] Comment on above: Order Comment: Speci men Type: BLOOD SPECIMENOrdering Facility: [facility] Address: [address] [place] [address] Performed By: #### 5 7021-8 ####[facility] LABCLIA [id number] [place] [address] [place] Eosinophils/100 WBC (Bld) 0.5 % Normal [facility] Comment on above: Order Comment: Speci men Type: BLOOD SPECIMENOrdering Facility: [facility] Address: [address] [place] [address] Performed By: #### 5 7021-8 ####[facility] LABCLIA [id number] [place] [address] [place] Erythrocyte distribution width (RBC) [Ratio] 15.6 % High 11.5-15.0 [facility] Comment on above: Order Comment: Speci men Type: BLOOD SPECIMENOrdering Facility: [facility] Address: [address] [place] [address] Performed By: #### 5 7021-8 ####[facility] LABIA [id number] [place] [address] [place] Hematocrit (Bld) [Volume fraction] 45.9 % Normal 39.0-51.0 [facility] Comment on above: Order Comment: Speci men Type: BLOOD SPECIMENOrdering Facility: [facility] Address: [address] [place] [address] Performed By: #### 5 7021-8 ####[facility] LABIA [id number] [place] [address] [place] Hemoglobin (Bld) [Mass/Vol] 14.5 g/dL Normal 13.0-17.0 [facility] Comment on above: Order Comment: Speci men Type: BLOOD SPECIMENOrdering Facility: [facility] Address: [address] [place] [address] Performed By: #### 5 7021-8 ####[facility] LABIA [id number] [place] [address] [place] Immature granulocytes (Bld) [#/Vol] 0.19 10*3/uL High <0.10 [facility] Comment on above: Order Comment: Speci men Type: BLOOD SPECIMENOrdering Facility: [facility] Address: [address] [place] [address] Performed By: #### 5 7021-8 ####[facility] LABIA [id number] [place] [address] [place] Immature granulocytes/100 WBC (Bld) 1.3 % Normal [facility] Comment on above: Order Comment: Speci men Type: BLOOD SPECIMENOrdering Facility: [facility] Address: [address] [place] [address] Performed By: #### 5 7021-8 ####[facility] LABCLIA [id number] [place] [address] [place] Lymphocytes (Bld) [#/Vol] 2.36 10*3/uL Normal 1.00-4.00 [facility] Comment on above: Order Comment: Speci men Type: BLOOD SPECIMENOrdering Facility: [facility] Address: [address] [place] [address] Performed By: #### 5 7021-8 ####[facility] LABIA [id number] [place] [address] [place] Lymphocytes/100 WBC (Bld) 16.4 % Normal [facility] Comment on above: Order Comment: Speci men Type: BLOOD SPECIMENOrdering Facility: [facility] Address: [address] [place] [address] Performed By: #### 5 7021-8 ####[facility] LABIA [id number] [place] [address] [place] MCH (RBC) [Entitic mass] 27.5 pg Normal 26.0-34.0 [facility] Comment on above: Order Comment: Speci men Type: BLOOD SPECIMENOrdering Facility: [facility] Address: [address] [place] [address] Performed By: #### 5 7021-8 ####[facility] LABCLIA [id number] [place] [address] [place] MCHC (RBC) [Mass/Vol] 31.6 g/dL Normal 30.5-36.0 [facility] Comment on above: Order Comment: Speci men Type: BLOOD SPECIMENOrdering Facility: [facility] Address: [address] [place] [address] Performed By: #### 5 7021-8 ####[facility] LABIA [id number] [place] [address] [place] MCV (RBC) [Entitic vol] 87.1 fL Normal 80.0-100.0 C [facility] Comment on above: Order Comment: Speci men Type: BLOOD SPECIMENOrdering Facility: [facility] Address: [address] [place] [address] Performed By: #### 5 7021-8 ####[facility] LABIA [id number] [place] [address] [place] Monocytes (Bld) [#/Vol] 0.72 10*3/uL Normal <0.87 [facility] Comment on above: Order Comment: Speci men Type: BLOOD SPECIMENOrdering Facility: [facility] Address: [address] [place] [address] Performed By: #### 5 7021-8 ####[facility] LABIA [id number] [place] [address] [place] Monocytes/100 WBC (Bld) 5.0 % Normal [facility] Comment on above: Order Comment: Speci men Type: BLOOD SPECIMENOrdering Facility: [facility] Address: [address] [place] [address] Performed By: #### 5 7021-8 ####[facility] LABIA [id number] [place] [address] [place] Neutrophils (Bld) [#/Vol] 10.99 10*3/uL High 1.45-7.50 [facility] Comment on above: Order Comment: Speci men Type: BLOOD SPECIMENOrdering Facility: [facility] Address: [address] [place] [address] Performed By: #### 5 7021-8 ####[facility] LABIA [id number] [place] [address] [place] Neutrophils/100 WBC (Bld) 76.3 % Normal [facility] Comment on above: Order Comment: Speci men Type: BLOOD SPECIMENOrdering Facility: [facility] Address: [address] [place] [address] Performed By: #### 5 7021-8 ####[facility] LABCLIA [id number] [place] [address] [place] Nucleated RBC (Bld) [#/Vol] 10*3/uL Normal <0.01 [facility] Comment on above: Order Comment: Speci men Type: BLOOD SPECIMENOrdering Facility: [facility] Address: [address] [place] [address] Performed By: #### 5 7021-8 ####[facility] LABIA [id number] [place] [address] [place] Nucleated RBC/100 WBC (Bld) [Ratio] 0.0 /100 WBC Normal [facility] Comment on above: Order Comment: Speci men Type: BLOOD SPECIMENOrdering Facility: [facility] Address: [address] [place] [address] Performed By: #### 5 7021-8 ####[facility] LABIA [id number] [place] [address] [place] Platelet mean volume (Bld) [Entitic vol] 10.6 fL Normal 9.0-12.7 [facility] Comment on above: Order Comment: Speci men Type: BLOOD SPECIMENOrdering Facility: [facility] Address: [address] [place] [address] Performed By: #### 5 7021-8 ####[facility] LABIA [id number] [place] [address] [place] Platelets (Bld) [#/Vol] 165 10*3/uL Normal 150-400 [facility] Comment on above: Order Comment: Speci men Type: BLOOD SPECIMENOrdering Facility: [facility] Address: [address] [place] [address] Performed By: #### 5 7021-8 ####[facility] LABCLIA [id number] [place] [address] [place] RBC (Bld) [#/Vol] 5.27 10*6/uL Normal 4.20-6.00 [facility] Comment on above: Order Comment: Speci men Type: BLOOD SPECIMENOrdering Facility: [facility] Address: [address] [place] [address] Performed By: #### 5 7021-8 ####[facility] LABCLIA [id number] [place] [address] [place] WBC (Bld) [#/Vol] 14.40 10*3/uL High 3.70-11.00 [facility] Comment on above: Order Comment: Speci men Type: BLOOD SPECIMENOrdering Facility: [facility] Address: [address] [place] [address] Performed By: #### 5 7021-8 ####[facility] LABCLIA [id number] [address] [place] CNOVon 08-09-2024 CNOV Office Visit (FAMPWS ) NICK LOPES ([id number]) 1970 M [facility] Date Time Provider Department 08/09/24 12:40 PM [...] [facility]. Folate added back in March. Anemia stable. [...] Fam hx-cardiovas dis NEC n/a father, of [place] at 45 Hypothyroid Other and unspecified hyperlipidemia [...] Age of (more content not included)... Normal [facility] FOLATE, SERUMon 08-09-2024 Folate [Mass/Vol] 19.7 ng/mL 4.7 - PINF ng/mL [facility] Folate SerPl-mCncon 08-09-20 Folate [Mass/Vol] 19.7 ng/mL Normal >4.7 [facility] Comment on above: Order Comment: Jeannine matias Type: BLOOD SPECIMENOrdering Facility: [facility] Address: [address] [place] [address] Performed By: #### 2 284-8 ####[facility] LABCLIA [id number] [place] [address] [place] Folate [Mass/Vol]on 08-09-20 Interpretation and review of laboratory results Normal [facility] HbA1c (Bld)on 08-09-2024 Average glucose Estimated from glycated hemoglobin (Bld) [Mass/Vol] 166 mg/dL Normal [facility] Comment on above: Order Comment: Jeannine matias Type: BLOOD SPECIMENOrdering Facility: [facility] Address: [address] [place] [address] Result Comment: eAG: (Estimated average glucose) is a calculated value from HgbA1c and is customer solutions representative of the average blood glucose level in the last 2-3 month period. Performed By: #### 5 5454-3 ####[facility] LABCLIA [id number] [place] [address] [place] HbA1c (Bld) [Mass fraction] 7.4 % High 4.3-5.6 [facility] Comment on above: Order Comment: Jeannine matias Type: BLOOD SPECIMENOrdering Facility: [facility] Address: [address] [place] [address] Result Comment: Amer ican Diabetes Association guidelines indicate that patients with HgbA1c in the range 5.7-6.4% are at increased risk for development of diabetes, and intervention by lifestyle modification may be beneficial. HgbA1c greater or equal to 6.5% is considered diagnostic of diabetes. Performed By: #### 5 5454-3 ####[facility] LABCLIA [id number] [place] [id number] [facility] Carie 08-05-2024 CNPN Telephone (PHA) NICK LOPES ([id number]) 1970 M [facility] Date Time Provider Department 08/05/24 [place] V [facility] During your visit today, we recorded [...] section) Patient Name: Nick lopes [facility] AND drug name(s): [id number] durolane Comments: payer policy requires trial of nsaids- no mention in ov note- please advise is nsaid trial has been completed Torsten Aviles V, DO 08/08/2024 3:30 PM Signed Patient is on blood thinner- NSAID's are contra-indicated in his situation Mary Dale MA 08/10/2024 10:42 AM Signed Patient contacted for copy of insurance card to be uploaded into [employer]. Gwendolyn Santiago MA 08/12/2024 12:16 PM Signed [...] Fully Assessed Reason for Visit: Insurance Authorization [3843] Cmt: Prior Auth Delayed: Additional Info Needed [...] [Z82.49] Overweight [E66.3] 09/25/2023 Tobacco Use Disord-Unsp [CET0357] SHOULDER REGION DIS NEC [M25.819] 01/27/2007 01/02/2009 JOINT PAIN-PELVIS [M25.559] 06/27/2008 01/02/2009 SPRAIN LUMBAR REGION [S33.5XXA] 06/27/2008 01/02/2009 JOINT PAIN-UP/ARM [M25.529] 06/27/2008 06/27/2008 JOINT PAIN-SHLDER [M25.519] 06/27/2008 01/02/2009 Routine General Medical Examination at [facility]*01/02/2009 12/14/2013 Class: Chronic Thoracic or Lumbosacral Neuritis or R (more content not included)... Normal [facility] CNCOon 08-03-2024 CNCO Letter Text Normal [facility] CNOVon 08-03-2024 CNOV Office Visit (FRFHWS ) NICK LOPES ([id number]) 1970 [place] [facility] Date Time Provider Department 08/03/24 2:30 PM [...] Mellitus Type 2, Controlled, Without Complications ([facility]) Obesity, Class Iii, Bmi 40-49.9 (Morbid Obesity) ([facility]) Situational Stress Theo (Generalized Anxiety Disorder) Josiah (Obstructive Sleep Apnea) Ddd (Degenerative Disc Disease), Lumbar Spinal Stenosis of Lumbar Region Without Neurogenic Claudication Cervical Stenosis of Spine Coronary Artery Disease Involving [place] Coronary Artery of [place] Heart Without Angina Pectoris S/P Ptca (Percutaneous [...] Fam hx-cardiovas dis NEC n/a father, of [place] at 45 Hypothyroid Other and unspecified hyperlipidemia [...] 2 mg (more content not included)... [facility] Letter Text Normal [facility] CNPNon 07-25-2024 CNPN Telephone (PANEWO) MARIANNENICK Light ([id number]) 1970 M [facility] Date Time Provider Department 07/25/24 [place] [...] walking. would like a call back at [phone]. AJAY Mcnally Amy M, MA 07/25/2024 3:08 [...] M, MA 07/26/2024 10:27 AM Signed Torsten Aviles V, DO You; [facility] Pool2 hours ago (7:46 AM) Durolane [...] for off work created and sent to [facility]. This will only cover him [...] with hu (more content not included)... Normal [facility] Carie 06-24-2024 ANGELINE Telephone ([facility]) NICK LOPES ([id number]) 1970 M [facility] Date Time Provider Department 06/24/24 [place] [address] During your visit today, we recorded the following information about you: Mary Dale MA 06/24/2024 9:07 AM Signed Type of form: FMLA Form received via fax When form is completed, Fax form to [facility] at [phone] Form has been forwarded to Dr. Aviles for signature. HOWIE Mendoza Amy M, MA 06/24/2024 9:07 AM Signed I called and left a message for the patient to contact the office. Received [facility] paperwork for him. Need to know..... Where is the patient doing his PT so we can get reports. 2. What was the first day not worked? Gwendolyn Santiago MA 06/24/2024 11:08 AM Signed Patients returned phone call from Mary. [facility] [place]. Off work date is 05/13/24. HOWIE Leonardo Amy M, MA 06/24/2024 1:15 PM Signed Forms completed and returned to [facility]. Confirmation received. Copy sent for scanning. Called [facility] to request records for past visits. Allergies As of Date: 06/24/2024 (No Known Allergies) Date Reviewed: 05/26/2024 Reviewed by: Berta Knight, RT(R) - Fully Assessed Reason for Visit: [facility] Paperwork [[id number]] Prescriptions as of 06/24/2024 [...] [Z82.49] Overweight [E66.3] 09/25/2023 Tobacco Use Disord-Unsp [[id number]] SHOULDER REGION DIS NEC [M25.819] 01/27/2007 01/02/2009 JOINT PAIN-PELVIS [M25.559] 06/27/2008 01/02/2009 SPRAIN LUMBAR REGION [S33.5XXA] 06/27/2008 01/02/2009 JOINT PAIN-UP/ARM [M25.529] 06/27/2008 06/27/2008 JOINT PAIN-SHLDER [M25.519] 06/27/2008 01/02/2009 Routine General Medical Examination at [facility]*01/02/2009 12/14/2013 Class: Chronic Thoracic or Lumbosacral Neuritis or Radiculitis*02/23/2009 12/14/2013 Hypothyroidism [E03.9] 10/09/2009 Essential hypertension, benign [I10] 02/06/2010 Leukocytosis [D72.829] 09/19/2011 03/28/2024 Sprain of lumbar region [S33.5XXA] 10/18/2012 12/14/2013 Backache, unspecified [M54.9] 11/11/2012 12/14/2013 Cervicalgia [M54.2] 04/20/2015 Lumbago [M54.50] 04/20/2015 03/28/2024 Concussion without loss of consciousness [S06.0*05/08/2015 04/23/2018 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*05/08/2015 Urinary incontinence [R32] 06/13/2015 Frequency [DIP4679] 06/13/2015 04/23/2018 Urgency of urination [R39.15] 06/13/2015 04/23/2018 Nocturia [R35.1] 06/13/2015 03/28/2024 Central sleep apnea [G47.31] 04/02/2018 Diabetes mellitus type 2, controlled, without c*03/25/2021 Obesity, Class III, BMI 40-49.9 (morbid obesity*06/17/2022 Situational stress [F43.9] 06/17/2022 THEO (genera (more content not included)... Normal [facility] CNCOon 06-16-2024 CNCO Letter Text Normal [facility] CNPNon 06-16-2024 CNPN Telephone (DELVINWS) MARIANNENICK Light ([id number]) 1970 M [facility] Date Time Provider Department 06/16/24 TOR[place]EN [address]ILES [...] extension written. Okay to send extension via [employer]. AJAY Lynn Amy M, MA 06/16/2024 4:05 PM Signed Letter completed and sent to patient in [employer] as requested. Allergies As of Date: 06/16/2024 [...] [Z82.49] Overweight [E66.3] 09/25/2023 Tobacco Use Disord-Unsp [IWU2439] SHOULDER REGION DIS NEC [M25.819] 01/27/2007 01/02/2009 JOINT PAIN-PELVIS [M25.559] 06/27/2008 01/02/2009 SPRAIN LUMBAR REGION [S33.5XXA] 06/27/2008 01/02/2009 JOINT PAIN-UP/ARM [M25.529] 06/27/2008 06/27/2008 JOINT PAIN-SHLDER [M25.519] 06/27/2008 01/02/2009 Routine General Medical Examination at [facility]*01/02/2009 12/14/2013 Class: Chronic Thoracic or Lumbosacral Neuritis or Radiculitis*02/23/2009 12/14/2013 Hypothyroidism [E03.9] 10/09/2009 Essential hypertension, benign [I10] 02/06/2010 Leukocytosis [D72.829] 09/19/2011 03/28/2024 Sprain of lumbar region [S33.5XXA] 10/18/2012 12/14/2013 Backache, unspecified [M54.9] 11/11/2012 12/14/2013 Cervicalgia [M54.2] 04/20/2015 Lumbago [M54.50] 04/20/2015 03/28/2024 Concussion without loss of consciousness [S06.0*05/08/2015 04/23/2018 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*05/08/2015 Urinary incontinence [R32] 06/13/2015 Frequency [LRK9518] 06/13/2015 04/23/2018 Urgency of urination [R39.15] 06/13/2015 [...] spine [M48.02] 06/28/2022 Coronary artery disease involving [place]*01/24/2023 S/P PTCA (percutaneous transluminal coronary an*01/24/2023 Status p (more content not included)... Normal [facility] CNCOon 05-31-2024 CNCO Letter Text Normal [facility] CNPNon 05-30-2024 CNPN Telephone ([facility]) NICK LOPES ([id number]) 1970 M [place] Date Time Provider Department [...] Fully Assessed Reason for Visit: Patient Question [4594] Cmt: To return to work or to [...] [Z82.49] Overweight [E66.3] 09/25/2023 Tobacco Use Disord-Unsp [VAW7710] SHOULDER REGION DIS NEC [M25.819] 01/27/2007 01/02/2009 JOINT PAIN-PELVIS [M25.559] 06/27/2008 01/02/2009 SPRAIN LUMBAR REGION [S33.5XXA] 06/27/2008 01/02/2009 JOINT PAIN-UP/ARM [M25.529] 06/27/2008 06/27/2008 JOINT PAIN-SHLDER [M25.519] 06/27/2008 01/02/2009 Routine General Medical Examination at [facility]*01/02/2009 12/14/2013 Class: Chronic Thoracic or Lumbosacral Neuritis or Radiculitis*02/23/2009 12/14/2013 Hypothyroidism [E03.9] 10/09/2009 Essential hypertension, benign [I10] 02/06/2010 Leukocytosis [D72.829] 09/19/2011 03/28/2024 Sprain of lumbar region [S33.5XXA] 10/18/2012 12/14/2013 Backache, unspecified [M54.9] 11/11/2012 12/14/2013 Cervicalgia [M54.2] 04/20/2015 Lumbago [M54.50] 04/20/2015 03/28/2024 Concussion without loss of consciousness [S06.0*05/08/2015 04/23/2018 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*05/08/2015 Urinary incontinence [R32] 06/13/2015 Frequency [XQZ0966] 06/13/2015 04/23/2018 Urgency of urination [R39.15] 06/13/2015 [...] spine [M48.02] 06/28/2022 Coronary artery disease involving [place]*01/24/2023 S/P PT (more content not included)... Normal [facility] Carie 05-29-2024 ANGELINE Telephone (UCWSTR) NICK LOPES ([id number]) 1970 M [facility] Date Time Provider Department 05/29/24 [place] V [facility] During your visit today, we [...] [Z82.49] Overweight [E66.3] 09/25/2023 Tobacco Use Disord-Unsp [OPY9915] SHOULDER REGION DIS NEC [M25.819] 01/27/2007 01/02/2009 JOINT PAIN-PELVIS [M25.559] 06/27/2008 01/02/2009 SPRAIN LUMBAR REGION [S33.5XXA] 06/27/2008 01/02/2009 JOINT PAIN-UP/ARM [M25.529] 06/27/2008 06/27/2008 JOINT PAIN-SHLDER [M25.519] 06/27/2008 01/02/2009 Routine General Medical Examination at a [facility]*01/02/2009 12/14/2013 Class: Chronic Thoracic or Lumbosacral Neuritis or Radiculitis*02/23/2009 12/14/2013 Hypothyroidism [E03.9] 10/09/2009 Essential hypertension, benign [I10] 02/06/2010 Leukocytosis [D72.829] 09/19/2011 03/28/2024 Sprain of lumbar region [S33.5XXA] 10/18/2012 12/14/2013 Backache, unspecified [M54.9] 11/11/2012 12/14/2013 Cervicalgia [M54.2] 04/20/2015 Lumbago [M54.50] 04/20/2015 03/28/2024 Concussion without loss of consciousness [S06.0*05/08/2015 04/23/2018 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*05/08/2015 Urinary incontinence [R32] 06/13/2015 Frequency [XMM1225] 06/13/2015 04/23/2018 Urgency of urination [R39.15] 06/13/2015 [...] spine [M48.02] 06/28/2022 Coronary artery disease involving [place]*01/24/2023 S/P PTCA (percutaneous transluminal coronary an*01/24/2023 Status post insertion of drug-eluting stent int*01/24/2023 Acute renal insufficiency [N28.9] 10/06/2023 03/28/2024 Diagnosed: 10/06/2023 Benign prostatic hyperplasia with urinary obstr*10/06/2023 Diagnosed: 10/06/2023 Calculus of ureter [N20.1] 10/06/2023 Diagnosed: 10/06/2023 Colitis [K52.9] 10/06/2023 03/28/2024 Diagnosed: 10/06/2023 Contusion of upper arm [S40.029A] 04/14/2022 03/28/2024 Diagnosed: 10/06/2023 Depressive disorder (more content not included)... Normal [facility] MR Knee - left WO contraston 05-26-2024 IMPRESSION: INTACT LIGAMENTS AND MENISCI OF THE KNEE. MODERATE OSTEOARTHRITIS OF THE MEDIAL COMPARTMENT. Coloring Room Worker: [email or web address] Transcribe Date/Time: May 26 2024 8:45A Dictated by : ELLIE HERNÁNDEZ MD This examination was interpreted and the report reviewed and electronically signed by: ELLIE HERNÁNDEZ MD on May 26 2024 8:48AM [facility] DIVISION OF RADIOLOGY * * *Final Report* * * DATE OF EXAM: May 26 2024 8:20AM [facility] 0212 - MRI KNEE WO IVCON [...] Localizer images: Unremarkable. DIVISION OF RADIOLOGY Provider, [facility] - 05/26/2024 * * *Final Report* * * DATE OF EXAM: May 26 2024 8:20AM [facility] 0212 - MRI KNEE WO IVCON [...] KNEE. MODERATE OSTEOARTHRITIS OF THE MEDIAL COMPARTMENT. Coloring Room Worker: [facility] Transcribe Date/Time: May 26 2024 8:45A Dictated by : ELLIE HERNÁNDEZ MD This examination was interpreted and the report reviewed and electronically signed by: ELLIE HERNÁNDEZ MD on May 26 2024 8:48AM EST [facility] Radiology Study observation (narrative) [facility] MR Knee - left WO contrastOr dered By: Ccf Provider on 05-26-2024 [facility] Large Joint Arthro/Inj: R huy hurtado bursaon 05-06-2024 Torsten Aviles V, DO 05/06/2024 2:38 PM Large Joint Arthro/Inj: R linda bursa 05/06/2024 2:37 PM Site: Bryson mckeon bursa Medications: 6 mg betamethasone acetate-betamethasone sodium phosphate 6 mg/mL Anesthetics: 4 mL lidocaine (PF) 10 mg/mL (1 %); 4 mL BUPivacaine (PF) 0.5 % (5 mg/mL) [facility] Emergency Department Summary on 05-02-2024 Emergency Department Summary [facility] Medical Records Department [address] [place] [address] Emergency Department Summary 05/02/24 MR#: [id number] Acct: [id number] Name: ROMEL LOPES Rep #: [id number] : 1970 53 From: Josafat Centeno DO [...] for Parasthesia, Weakness or Loss of Funtion [facility] Medical History Infection due to ESBL-producing Escherichia coli Anxiety Depression Diabetes Kidney stones Former smoker BiPAP (biphasic positive airway pressure) dependence Sleep apnea Myocardial infarct Hypertension Atherosclerosis of coronary artery of [place] heart without angina pectoris Leukocytosis JOSIAH (obstructive [...] 114 P (more content not included)... Normal [facility] Knee 4 or More Viewson 05-02 Knee 4 or More Views [facility] Imaging Services [address] [place], [place] [address] Knee 4 or More Views MR#: [id number] Acct: [id number] Name: ROMEL LOPES Rep #: [id number] : 1970 M 53 From: Ethan Payan MD PCP: Dr. Ginger Lugo MD Status: REG ER Study: Knee 4 or More Views Date of Exam: 05/02/24 Exam# [id number] Ordering [place]: [place] [id number] EXAM: XR LEFT KNEE COMPLETE, 4 OR [...] Josafat Centeno DO; Dr. Ginger Lugo MD Coloring Room Worker: Signed Normal [facility] XR Toes - right 3 Viewson IMPRESSION: Findings as discussed in results portion of report Coloring Room Worker: [email or web address] Transcribe Date/Time: Apr 14 2024 12:14P Dictated by : RAJENDRA CAMACHO DO This examination was interpreted and the report reviewed and electronically signed by: RAJENDRA CAMACHO DO on Apr 14 2024 12:17PM [facility] DIVISION OF RADIOLOGY * * *Final [...] [place] DIVISION OF RADIOLOGY Provider, Brian martin [place] - 04/14/2024 * * *Final Report* * [...] as discussed in results portion of report Coloring Room Worker: [email or web address] Transcribe Date/Time: Apr 14 2024 12:14P Dictated by : RAJENDRA CAMACHO DO This examination was interpreted and the report reviewed and electronically signed by: RAJENDRA CAMACHO DO on Apr 14 2024 12:17PM EST [facility] Radiology Study observation (narrative) [facility] XR Toes - right 3 ViewsOrder ed By: Ccf Provider on 04-14-2024 [facility] Large Joint Arthro/Inj: L kn ee jointon 04-06-2024 Torsten Aviles V, DO 04/06/2024 2:18 PM Large Joint Arthro/Inj: L knee joint Informed Consent Consent Obtained: Verbal [place] Protocol SIGN IN TIME OUT 04/06/2024 2:17 [...] the patient voiced understanding of these instructions. [facility] XR Toes - right 3 Viewson IMPRESSION: Fracture distal phalanx RIGHT great toe Coloring Room Worker: [email or web address] Transcribe Date/Time: Mar 31 2024 7:30A Dictated by : RAJENDRA CAMACHO DO This examination was interpreted and the report reviewed and electronically signed by: RAJENDRA CAMACHO DO on Mar 31 2024 7:32AM [facility] DIVISION OF RADIOLOGY * * *Final [...] IMPRESSION: Fracture distal phalanx RIGHT great toe Coloring Room Worker: [email or web address] Transcribe Date/Time: Mar 31 2024 7:30A Dictated by : RAJENDRA CAMACHO DO This examination was interpreted and the report reviewed and electronically signed by: RAJENDRA CAMACHO DO on Mar 31 2024 7:32AM EST [facility] XR Toes - right 3 ViewsOrder ed By: Ccf Provider on 03-31-2024 [facility] US DVT LOWER LTon 03-29-2024 US DVT [...] imaged segments of the left lower extremity. Coloring Room Worker: MICHOACANO Transcribe Date/Time: Mar 29 2024 6:23P Dictated by : JEFFREY NAJERA MD This examination was interpreted and the report reviewed and electronically signed by: JEFFREY NAJERA MD on Mar 29 2024 6:25PM EST [id number] Normal [facility] US Lower extremity vein - le fton 03-29-2024 IMPRESSION: Negative study for proximal DVT in the left lower extremity. Nondiagnostic study for calf DVT in the left lower extremity. Negative study for superficial thrombophlebitis in the imaged segments of the left lower extremity. Coloring Room Worker: [facility] Transcribe Date/Time: Mar 29 2024 6:23P Dictated by : JEFFREY NAJERA MD This examination was interpreted and the report reviewed and electronically signed by: JEFFREY NAJERA MD on Mar 29 2024 6:25PM EST [id number] RAD[facility] SYN[facility] * * *Final Report* * [...] spontaneous respirophasic flow. Normal response to augmentation. [facility], [facility]/29/[facility]24 * * *Final Report* * [...] imaged segments of the left lower extremity. Coloring Room Worker: MICHOACANO Transcribe Date/Time: Mar 29 2024 6:23P Dictated by : JEFFREY NAJERA MD This examination was interpreted and the report reviewed and electronically signed by: JEFFREY NAJERA MD on Mar 29 2024 6:25PM EST [facility] Radiology Study observation (narrative) [facility] US Lower extremity vein - le ftOrdered By: Ccf Provider on 03-29-2024 [facility] No Panel Informationon 03-28 IMPRESSION: No acute osseous abnormality. Coloring Room Worker: MICHOACANO Transcribe Date/Time: Mar 28 2024 7:49P Dictated by : VERONICA HIDALGO DO This examination was interpreted and the report reviewed and electronically signed by: VERONICA HIDALGO DO on Mar 28 2024 7:53PM [facility] DIVISION OF RADIOLOGY Radiology Study observation (narrative) [facility] No Panel InformationOrdered By: Ccf Provider on 03-28-2024 [facility] XR Knee - left 4 Viewson * [...] fibula: No fracture. DIVISION OF RADIOLOGY Provider, [facility] - 03/28/2024 * * *Final Report* * [...] fracture. IMPRESSION IMPRESSION: No acute osseous abnormality. Coloring Room Worker: PSCB Transcribe Date/Time: Mar 28 2024 7:49P Dictated by : VERONICA HIDALGO DO This examination was interpreted and the report reviewed and electronically signed by: VERONICA HIDALGO DO on Mar 28 2024 7:53PM [facility] XR Tibia and Fibula - left A [...] fibula: No fracture. DIVISION OF RADIOLOGY Provider, [facility] - 03/28/2024 * * *Final Report* * [...] fracture. IMPRESSION IMPRESSION: No acute osseous abnormality. Coloring Room Worker: PSCB Transcribe Date/Time: Mar 28 2024 7:49P Dictated by : VERONICA HIDALGO DO This examination was interpreted and the report reviewed and electronically signed by: VERONICA HIDALGO DO on Mar 28 2024 7:53PM [facility] XR Toes - right 3 Viewson Radiology Study observation (narrative) [facility] Absolute lymphocyte countOrd ered By: Gerardo Watkins on 10-09-2023 Lymphocytes Auto (Unsp spec) [#/Vol] 1.96 10*3/uL 0.83-4.51 [facility] Automated lymphocyte count a s percentage of total leukocytesOrdered By: Gerardo Watkins on 10-09-2023 Lymphocytes/100 WBC Auto (Unsp spec) 27.9 % 19-41 [facility] Basophil percentageOrdered B y: Gerardo Watkins on 10-09-2023 Basophils/100 WBC (Bld) 0.6 % 0-1 [facility] Chloride [Moles/Vol] 108 mmol/L 98-107 [facility] Eosinophils/100 WBC (Bld) 2.6 % 0-5 [facility] Glucose [Mass/Vol] 182 mg/dL 74-106 [facility] Comment on above: Fasting Glucose resu lt greater than or equal to 126 mg/dL suggests DIABETES MELLITUS per A.D.A. criteria. Hemoglobin (Bld) [Mass/Vol] 12.8 g/dL 13.0-16.5 [facility] Monocytes/100 WBC (Bld) 6.1 % 0-10 [facility] Neutrophils (Bld) [#/Vol] 4.4 10*3/uL 2.0-7.7 [facility] Neutrophils/100 WBC (Bld) 62.1 % 47-70 [facility] Potassium [Moles/Vol] 3.8 mmol/L 3.5-5.1 [facility] Sodium [Moles/Vol] 141 mmol/L 136-145 [facility] WBC (Bld) [#/Vol] 7.0 10*3/uL 4.4-11.0 [facility] Determination of erythrocyte mean corpuscular volume (MCV)Ordered By: Gerardo Watkins on 10-09-2023 [facility] (RBC) [Entitic vol] 85.7 fL 80-94 [facility] Erythrocyte distribution wid th ratioOrdered By: Gerardo Watkins on 10-09-2023 Erythrocyte distribution width (RBC) [Ratio] 14.8 % 11.6-14.6 [facility] Erythrocyte distribution wid th standard deviationOrdered By: Gerardo Watkins on 10-09-2023 Erythrocyte distribution width (RBC) [Entitic vol] 45.8 fL 35.1-43.9 [facility] Hematocrit Auto (Bld) [Volum e fraction]Ordered By: Gerardo Watkins on 10-09-2023 Hematocrit (Bld) [Volume fraction] 40.7 % 40-54 [facility] Immature granulocytes/100 WB C Auto (Bld)Ordered By: Gerardo Watkins on 10-09-2023 Immature granulocytes/100 WBC (Bld) 0.700 % 0.0-0.9 [facility] Comment on above: IG% - Immature Granu locytes (promyelocytes, myelocytes and metamyelocytes) > 1% indicates that a LEFT SHIFT is Present. Laboratory - Chemistry and C hemistry - challengeOrdered By: Gerardo Watkins on 10-09-2023 CO2 [Moles/Vol] 30.0 mmol/L 21.0-32.0 [facility] Urea nitrogen/Creatinine [Mass ratio] 13.3 mg/mg 10-20 [facility] Laboratory - Hematology and Cell countsOrdered By: Gerardo Watkins on 10-09-2023 MCH (RBC) [Entitic mass] 26.9 pg 27.0-32.0 [facility] MCHC (RBC) [Mass/Vol] 31.4 g/dL 32-36 [facility] Nucleated RBC/100 WBC (Bld) [Ratio] 0 % 0-5 [facility] Platelets (Bld) [#/Vol] 190 10*3/uL 150-450 [facility] No Panel InformationOrdered By: Gerardo Watkins on 10-09-2023 Estimated Creatinine Clearance Calc 118.90 ml/min [facility] Estimated GFR (MDRD) Amer 104 mL/min >60 [facility] Comment on above: GFR Calc Estimated GFR (MDRD) Non-Af Amer 86 mL/min >60 [facility] Comment on above: Non- GFR Calc Platelet mean volume Bryson-Ec ker (Bld) [Entitic vol]Ordered By: Gerardo Watkins on 10-09-2023 Platelet mean volume (Bld) [Entitic vol] 9.8 fL 6.2-12.0 [facility] RBC Auto (Bld) [#/Vol]Ordere d By: Gerardo Watkins on 10-09-2023 RBC (Bld) [#/Vol] 4.75 10*6/uL 4.6-6.2 [facility] Serum or plasma calcium talita urement (mass/volume)Ordered By: Gerardo Watkins on 10-09-2023 Calcium [Mass/Vol] 9.2 mg/dL 8.5-10.1 [facility] Serum or plasma creatinine m easurement (mass/volume)Ordered By: Gerardo Watkins on 10-09-2023 Creatinine [Mass/Vol] 0.97 mg/dL 0.70-1.30 [facility] Comment on above: The validity of the calculated GFR & GFRAA in patients over 70 years has not been determined. Clinical correlation is essential. Serum or plasma urea nitroge n measurement (mass/volume)Ordered By: Gerardo Watkins on 10-09-2023 Urea nitrogen [Mass/Vol] 13 mg/dL 7-18 [facility] Thin prep Papanicolaou smear with manual screeningOrdered By: Gerardo Watkins on 10-09-2023 Thin prep Papanicolaou smear with manual screening 148 mg/dL 74-106 [facility] Comment on above: MANAGEMENT OF PATIEN T CARE PER NURSING PROTOCOL Thin prep Papanicolaou smear with manual screening 3 5-15 [facility] Absolute lymphocyte countOrd ered By: Fernandez Bryant on 10-07-2023 Lymphocytes Auto (Unsp spec) [#/Vol] 1.82 10*3/uL 0.83-4.51 [facility] Automated lymphocyte count a s percentage of total leukocytesOrdered By: Fernandez Bryant on 10-07-2023 Lymphocytes/100 WBC Auto (Unsp spec) 19.8 % 19-41 [facility] Basophil percentageOrdered B y: Fernandez Bryant on 10-07-2023 Basophils/100 WBC (Bld) 0.5 % 0-1 [facility] Bilirubin [Mass/Vol] 0.90 mg/dL 0.20-1.00 [facility] Comment on above: For patients on eltr ombopag therapy, use of Dimension Martin TBIL is not recommended. Chloride [Moles/Vol] 106 mmol/L 98-107 [facility] Eosinophils/100 WBC (Bld) 2.4 % 0-5 [facility] Glucose [Mass/Vol] 152 mg/dL 74-106 [facility] Comment on above: Fasting Glucose resu lt greater than or equal to 126 mg/dL suggests DIABETES MELLITUS per A.D.A. criteria. Hemoglobin (Bld) [Mass/Vol] 14.2 g/dL 13.0-16.5 [facility] Monocytes/100 WBC (Bld) 5.4 % 0-10 [facility] Neutrophils (Bld) [#/Vol] 6.6 10*3/uL 2.0-7.7 [facility] Neutrophils/100 WBC (Bld) 71.4 % 47-70 [facility] Potassium [Moles/Vol] 3.9 mmol/L 3.5-5.1 [facility] Protein [Mass/Vol] 7.9 g/dL 6.4-8.2 [facility] Sodium [Moles/Vol] 138 mmol/L 136-145 [facility] WBC (Bld) [#/Vol] 9.2 10*3/uL 4.4-11.0 [facility] Determination of erythrocyte mean corpuscular volume (MCV)Ordered By: Fernandez Bryant on 10-07-2023 MCV (RBC) [Entitic vol] 84.8 fL 80-94 [facility] Direct bilirubinOrdered By: Fernandez Bryant on 10-07-2023 Bilirubin.direct [Mass/Vol] 0.24 mg/dL 0.00-0.30 [facility] Erythrocyte distribution wid th ratioOrdered By: Fernandez Bryant on 10-07-2023 Erythrocyte distribution width (RBC) [Ratio] 14.6 % 11.6-14.6 [facility] Erythrocyte distribution wid th standard deviationOrdered By: Fernandez Bryant on 10-07-2023 Erythrocyte distribution width (RBC) [Entitic vol] 44.1 fL 35.1-43.9 [facility] Hematocrit Auto (Bld) [Volum e fraction]Ordered By: Fernandez Bryant on 10-07-2023 Hematocrit (Bld) [Volume fraction] 43.0 % 40-54 [facility] Immature granulocytes/100 WB C Auto (Bld)Ordered By: Fernandez Bryant on 10-07-2023 Immature granulocytes/100 WBC (Bld) 0.500 % 0.0-0.9 [facility] Comment on above: IG% - Immature Granu locytes (promyelocytes, myelocytes and metamyelocytes) > 1% indicates that a LEFT SHIFT is Present. Laboratory - Chemistry and C hemistry - challengeOrdered By: Fernandez Bryant on 10-07-2023 ALP [Catalytic activity/Vol] 103 U/L 45-117 [facility] ALT [Catalytic activity/Vol] 106 U/L 16-61 [facility] CO2 [Moles/Vol] 26.0 mmol/L 21.0-32.0 [facility] Globulin (S) [Mass/Vol] 4.1 g/dL 2.2-4.2 [facility] Lipase [Catalytic activity/Vol] 43 U/L 13-75 [facility] Comment on above: Please note:LIPASE r evised reference range effective 22. New Lipase methodology. Expected to produce lower values than the previous assay method. NEW Reference Range: 13 - 75 U/L Urea nitrogen/Creatinine [Mass ratio] 13.2 mg/mg 10-20 [facility] Laboratory - Hematology and Cell countsOrdered By: [facility] on 10-07-2023 MCH (RBC) [Entitic mass] 28.0 pg 27.0-32.0 [facility] MCHC (RBC) [Mass/Vol] 33.0 g/dL 32-36 [facility] Nucleated RBC/100 WBC (Bld) [Ratio] 0 % 0-5 [facility] Platelets (Bld) [#/Vol] 234 10*3/uL 150-450 [facility] No Panel InformationOrdered By: Gerardo Watkins on 10-07-2023 Troponin I High Sensitivity 7 pg/mL 3.0-78.0 [facility] Comment on above: Please Note: [place] t Units and Gender Specific Reference Ranges. For more information see Policy Stat Procedure Martin High Sensitivity Troponin (TNIH) and attachments. No Panel InformationOrdered By: Fernandez Bryant on 10-07-2023 Estimated Creatinine Clearance Calc 118.48 ml/min [facility] Estimated GFR (MDRD) Amer 103 mL/min >60 [facility] Comment on above: GFR Calc Estimated GFR (MDRD) Non-Af Amer 85 mL/min >60 [facility] Comment on above: Non- GFR Calc Platelet mean volume Bryson-Ec ker (Bld) [Entitic vol]Ordered By: Fernandez Bryant on 10-07-2023 Platelet mean volume (Bld) [Entitic vol] 10.0 fL 6.2-12.0 [facility] RBC Auto (Bld) [#/Vol]Ordere d By: Fernandez Bryant on 10-07-2023 RBC (Bld) [#/Vol] 5.07 10*6/uL 4.6-6.2 [facility] Serum or plasma calcium talita urement (mass/volume)Ordered By: Fernandez Bryant on 10-07-2023 Calcium [Mass/Vol] 9.6 mg/dL 8.5-10.1 [facility] Serum or plasma cardiac trop onin I panel by high sensitivity methodOrdered By: Fernandez Bryant on 10-07-2023 Tropinin I.cardiac panel High sensitivity method 7 pg/mL 3.0-78.0 [facility] Comment on above: Please Note: [place] t Units and Gender Specific Reference Ranges. For more information see Policy Stat Procedure Martin High Sensitivity Troponin (TNIH) and attachments. Serum or plasma creatinine m easurement (mass/volume)Ordered By: Fernandez Bryant on 10-07-2023 Creatinine [Mass/Vol] 0.98 mg/dL 0.70-1.30 [facility] Comment on above: The validity of the calculated GFR & GFRAA in patients over 70 years has not been determined. Clinical correlation is essential. Serum or plasma urea nitroge n measurement (mass/volume)Ordered By: [facility] on 10-07-2023 Urea nitrogen [Mass/Vol] 13 mg/dL 7-18 [facility] Thin prep Papanicolaou smear with manual screeningOrdered By: Fernandez Bryant on 10-07-2023 Thin prep Papanicolaou smear with manual screening 3.8 g/dL 3.2-5.0 [facility] Thin prep Papanicolaou smear with manual screening 62 U/L 15-37 [facility] Thin prep Papanicolaou smear with manual screening 6 5-15 [facility] Beta hydroxybutyrate [Mass o r moles/Vol]on 09-22-2023 Beta hydroxybutyrate [Moles/Vol] 0.23 mmol/L 0.02 - 0.27 mmol/L [facility] Interpretation and review of laboratory results Normal [facility] The beta-hydroxybutyrate test performance characteristics have been validated by [facility]. This test has not been approved by the FDA; however, such approval is not necessary. [facility] CBC W Auto Differential pane l (Bld)on 09-22-2023 Basophils (Bld) [#/Vol] 0.06 10*3/uL [facility] Basophils/100 WBC (Bld) 0.5 % 0.0 - 2.0 % [facility] Eosinophils (Bld) [#/Vol] 0.15 10*3/uL [facility] Eosinophils/100 WBC (Bld) 1.4 % 0.0 - 6.0 % [facility] Erythrocyte distribution width (RBC) [Ratio] 13.8 % 11.5 - 14.5 % [facility] Hematocrit (Bld) [Volume fraction] 44.8 % 41.0 - 52.0 % [facility] Hemoglobin (Bld) [Mass/Vol] 14.9 g/dL 13.5 - 17.5 g/dL [facility] Immature granulocytes (Bld) [#/Vol] 0.08 10*3/uL [facility] Immature granulocytes/100 WBC (Bld) 0.7 % 0.0 - 0.9 % [facility] Comment on above: Immature Granulocyte Count (IG) includes promyelocytes, myelocytes and metamyelocytes but does not include bands. Percent differential counts (%) should be interpreted in the context of the absolute cell counts (cells/UL). Interpretation and review of laboratory results Abnormal [facility] Lymphocytes (Bld) [#/Vol] 2.31 10*3/uL [facility] Lymphocytes/100 WBC (Bld) 21.2 % 13.0 - 44.0 % [facility] MCH (RBC) [Entitic mass] 27.5 pg 26.0 - 34.[address] [facility] MCHC (RBC) [Mass/Vol] 33.3 g/dL 32.0 - 36.0 g/dL [facility] MCV (RBC) [Entitic vol] 83 fL 80 - [address] [facility] Monocytes (Bld) [#/Vol] 0.45 10*3/uL [facility] Monocytes/100 WBC (Bld) 4.1 % 2.0 - 10.0 % [facility] Neutrophils (Bld) [#/Vol] 7.87 10*3/uL High [facility] Comment on above: Percent differential counts (%) should be interpreted in the context of the absolute cell counts (cells/uL). Neutrophils/100 WBC (Bld) 72.1 % 40.0 - 80.0 % [facility] Nucleated RBC/100 WBC (Bld) [Ratio] 0.0 % [facility] Platelets (Bld) [#/Vol] 224 10*3/uL [facility] RBC (Bld) [#/Vol] 5.41 10*6/uL [facility] WBC (Bld) [#/Vol] 10.9 10*3/uL [facility] CT Abdomen and Pelvis W cont rast Elizabeth 09-22-2023 1. No acute abnormal ity within the abdomen or pelvis. 2. Hepatomegaly and hepatic steatosis. MACRO: None Signed by: Edson Fam 09/22/2023 7:41 PM Dictation workstation: [id number] Interpreted By: Edson Barksdale, STUDY: CT ABDOMEN PELVIS W IV CONTRAST; 09/22/2023 7:28 pm INDICATION: Signs/Symptoms:abd pain x3 days. COMPARISON: CT abdomen and pelvis 03/29/2014 ACCESSION NUMBER(S): [id number] ORDERING CLINICIAN: XIMENA DOYLE TECHNIQUE: Contiguous axial [...] CT abdomen and pelvis 03/29/2014 ACCESSION NUMBER(S): [id number] ORDERING CLINICIAN: XIMENA DOYLE TECHNIQUE: Contiguous axial [...] Edson Fam 09/22/2023 7:41 PM Dictation workstation: [id number] [facility] Work Phone: Radiology Study observation (narrative) [facility] Work Phone: CT Abdomen and Pelvis W cont rast IVOrdered By: Edson Fam on 09-22-2023 [facility] Work Phone: Comprehensive metabolic 2000 panelon 09-22-2023 Albumin BCP dye [Mass/Vol] 4.3 g/dL 3.4 - 5.0 g/dL [facility] ALP [Catalytic activity/Vol] 125 U/L High 33 - 120 U/L [facility] ALT With P-5'-P [Catalytic activity/Vol] 54 U/L High 10 - 52 U/L [facility] Comment on above: Patients treated wit h Sulfasalazine may generate falsely decreased results for ALT. Anion gap [Moles/Vol] 17 mmol/L 10 - 2 0 mmol/L [facility] AST With P-5'-P [Catalytic activity/Vol] 31 U/L 9 - 39 U/L [facility] Bilirubin [Mass/Vol] 0.7 mg/dL 0.0 - 1 .2 mg/dL [facility] Calcium [Mass/Vol] 9.5 mg/dL 8.6 - 10. 3 mg/dL [facility] Chloride [Moles/Vol] 90 mmol/L Low 98 - 10 7 mmol/L [facility] CO2 [Moles/Vol] 23 mmol/L 21 - 32 mmol/L [facility] Creatinine [Mass/Vol] 1.03 mg/dL 0.50 - 1.30 mg/dL [facility] GFR/1.73 sq M.predicted among non-blacks MDRD (S/P/Bld) [Vol rate/Area] 87 mL/min/{1.73_m2} - PINF [facility] Comment on above: Calculations of jonathan mated GFR are performed using the 2020 CKD-EPI Study Refit equation without the race variable for the IDMS-Traceable creatinine methods. https://jasn.asnjournals.org/content/early/ASN.2020 599906 Glucose [Mass/Vol] 517 mg/dL Critically high 74 - 9 9 mg/dL [facility] Interpretation and review of laboratory results Abnormal [facility] Potassium [Moles/Vol] 4.0 mmol/L 3.5 - 5.3 mmol/L [facility] Protein [Mass/Vol] 7.7 g/dL 6.4 - 8.2 g/dL [facility] Sodium [Moles/Vol] 126 mmol/L Low 136 - 145 mmol/L [facility] Urea nitrogen [Mass/Vol] 23 mg/dL 6 - 23 mg/dL [facility] ECG 12-LEADon 09-22-2023 ECG 12-LEAD Ventricular Rate 83 Atrial Rate 83 P-R Interval 144 QRS Duration 100 Q-T Interval 382 QTC Calculation(Bazett) 448 P Hampton 64 R Hampton 40 T Hampton 40 QRS Count 13 Q Onset 222 [...] and clinical correlation Confirmed by Dana Flowers ([id number]) on 09/25/2023 10:53:22 AM Normal [facility] Gas panel (BldV)on Base excess Calc (BldV) [Moles/Vol] 0.6 mmol/L -2.0 - 3.0 mmol/L [facility] CO2 (BldV) [Partial pressure] 47 mm[Hg] [facility] HCO3 (Bld) [Moles/Vol] 26.6 mmol/L High 22.0 - 26.0 mmol/L [facility] Inhaled oxygen concentration 21 % [facility] Interpretation and review of laboratory results Abnormal [facility] Oxygen (BldV) [Partial pressure] 57 mm[Hg] High [facility] Oxygen saturation in Venous blood 87 % High 45 - 75 % [facility] Oxyhemoglobin (BldV) [Mass fraction] 85.4 % High 45.0 - 75.0 % [facility] pH (BldV) 7.36 [pH] 7.33 - 7.[address] [facility] Test Comment [facility] Glucose Test strip manual (B ld) [Mass/Vol]on 09-22-2023 Glucose [Mass/Vol] 320 mg/dL High 74 - 99 mg/dL [facility] Interpretation and review of laboratory results Abnormal [facility] Glucose [Mass/Vol] 382 mg/dL High 74 - 99 mg/dL [facility] Interpretation and review of laboratory results Abnormal [facility] Glucose [Mass/Vol] 593 mg/dL High 74 - 99 mg/dL [facility] Interpretation and review of laboratory results Abnormal [facility] Lactateon 09-22-2023 Lactate [Moles/Vol] 1.6 mmol/L 0.4 - 2. 0 mmol/L [facility] Lactate [Moles/Vol] 2.3 mmol/L High 0.4 - 2. 0 mmol/L [facility] Lactate [Moles/Vol] 2.3 mmol/L High 0.4 - 2. 0 mmol/L [facility] Lactate [Moles/Vol]on 2023 Interpretation and review of laboratory results Normal [facility] Venipuncture immediately after or during the administration of Metamizole may lead to falsely low results. Testing should be performed immediately prior to Metamizole dosing. [facility] Interpretation and review of laboratory results Abnormal [facility] Venipuncture immediately after or during the administration of Metamizole may lead to falsely low results. Testing should be performed immediately prior to Metamizole dosing. [facility] Interpretation and review of laboratory results Abnormal [facility] Venipuncture immediately after or during the administration of Metamizole may lead to falsely low results. Testing should be performed immediately prior to Metamizole dosing. [facility] Lipaseon 09-22-2023 Lipase [Catalytic activity/Vol] 50 U/L 9 - 82 U/L [facility] Lipase [Catalytic activity/V ol]on 09-22-2023 Interpretation and review of laboratory results Normal [facility] Venipuncture immediately after or during the administration of Metamizole may lead to falsely low results. Testing should be performed immediately prior to Metamizole dosing. [facility] Tropinin I.cardiac panel Hig h sensitivity methodon 09-22-2023 Interpretation and review of laboratory results Normal [facility] Less than 99th percentile of normal range [...] performed using a different testing methodology at [facility] than at other [facility]. Direct result comparisons should only be made within the same method. [facility] Interpretation and review of laboratory results Normal [facility] Less than 99th percentile of normal range [...] performed using a different testing methodology at [facility] than at other [facility]. Direct result comparisons should only be made within the same method. [facility] Troponin I, High Sensitivity , Initialon 09-22-2023 Tropinin I.cardiac panel High sensitivity method 4 ng/L 0 - 20 ng/L [facility] Troponin, High Sensitivity, 1 Houron 09-22-2023 Tropinin I.cardiac panel High sensitivity method 5 ng/L 0 - 20 ng/L [facility] Urinalysis complete W Reflex Culture panel (U)on 09-22-2023 Appearance (U) Clear Clear [facility] Bilirubin (U) [Mass/Vol] Negative NEGATIVE [facility] Color (U) Straw Straw, Yellow [facility] Glucose Auto test strip (U) [Mass/Vol] >=500 (3+) Abnormal NEGATIVE mg/dL [facility] Interpretation and review of laboratory results Abnormal [facility] Ketones (U) [Mass/Vol] Negative NEGAT IMK mg/dL [facility] Leukocyte esterase Auto test strip Ql (U) Negative NEGATIVE [facility] Nitrite Auto test strip Ql (U) Negative NEGATIVE [facility] pH (U) 6.0 [pH] 5.0, 5.5, 6.0, 6.5, 7.0, 7.5, 8.0 [facility] Protein (U) [Mass/Vol] Negative NEGAT MIK mg/dL [facility] RBC (U) [#/Vol] Negative NEGATIVE [facility] Specific gravity (U) [Rel density] 1.035 1.005 - 1.035 [facility] Urobilinogen (U) [Mass/Vol] mg/dL NINF - 2.0 mg/dL [facility] Office Visit (Urology)on Follow-up visit Diagnoses/Problems Assessed [...] and was normal from standpoint. CT [facility] showed mild perinephric stranding but no stones [...] MG Oral Tablet Vitals Vital Signs Recorded: [id number] 04:01PM Logmsvtksri52 Xuourd757 lb BMI Fghdusgvrv40.97 kg/m2 BSA Calculated2.17 Tobacco Useb) No PHQ-2 [...] Apr 22 2023 4:08PM EST (Author) Normal [facility] Tobacco Screening.on 023 Fall risk assessment a) No falls within the last year MZ-Keacpzd-I [employer] Phone: Tobacco use status CPHS b) No M P-Urology-A [employer] Phone: Tobacco Screening. Yes MP-Uro logy-A [employer] Phone: Cult, Urineon 04-16-2023 Bacteria identified Cx Nom (U) Abnormal SC-Vykwoup-R [employer] Phone: Office Visit (Urology)on Follow-up visit Diagnoses/Problems [...] for kidney stone and pyelonephritis..Patient was in [facility], was treated with IV antibiotics and IM injections after discharge..States is feeling better..CT was done 10/07/22 and was normal from standpoint. CT at [facility] showed mild perinephric stranding but no stones or obstruction. ..Chronic BPH with LUTs, sx are mild and stable..No dysuria, No hematuria since discharged from [facility]..Nocturia x 1-2, depending on fluid intake..ED is [...] Tablet Vitals Vital Signs Recorded: [id number] 09:05AM Imysyhzxhpl52 Height5 ft 8 in Unejph353 lb BMI Pkdjpztlmj93.34 kg/m2 BSA Calculated2.2 Tobacco Useb) No PHQ-2 [...] [Mass/Vol] 0.19 ng/mL Normal 0.00 - 4.00 [facility] Comment on above: Result Comment: The FDA requires that the method used for PSA assay be reported to the physician. Values obtained with different assay methods must not be used interchangeably. This test was performed at [facility] using the Access Hybritech PSA assay is a two-site immunoenzymatic sandwich assay. The assay is approved for measurement of prostate-specific antigen (PSA)in serum and may be used in conjunction with a digital rectal examination in men 50 years and older as an aid in detection of prostate cancer. 7-Xhtob-itrmiffch inhibitors (e.g. Proscar, Finasteride, Avodart, Dutasteride and Catina) for the treatment of BPH have been shown to lower PSA levels by an average of 50% after 6 months of treatment. Performed By: #### P #### [place] [id number] Prostate Specific Antigen 04-16-2023 Prostate specific Ag [Mass/Vol] 0.19 ng/mL See Below FM-Xailuab-D [facility] Work Phone: Comment on above: Reference Range: 0.0 0 - 4.00The FDA requires that the method used for PSA assay be reported to the physician. Values obtained with different assay methods must not be used interchangeably. This testwas performed at [facility] using the Access Hybritech PSA assay is a two-site immunoenzymatic sandwich assay. The assay is approved for measurement of prostate-specific antigen (PSA)in serum and may be used in conjunction with a digital rectal examination in men 50 years and older as an aid in detection of prostate cancer.2-Rcauh-rhrlljxkf inhibitors (e.g. Proscar, Finasteride, Avodart, Dutasteride and Catina) for the treatment of BPH have been shown to lower PSA levels by an average of 50% after 6 months of treatment. Tobacco Screening.on 023 Fall risk assessment a) No falls within the last year VI-Eqlizbx-T [facility] DO Work Phone: Tobacco use status CP b) No M P-Urology-R [facility] 232 DO Work Phone: Tobacco Screening. Yes MP-Uro logy-R [facility] 232 DO Work Phone: URINE CULTURE,BACTERIALon URINE CULTURE,BACTERIAL PATIENT: NICK LOPES [place] [facility] [place]#: [id number] : 70 AGE: SEX: M ORDERED BY: [...] DOSE DEPENDENT NS=NONSUSCEPTIBLE X=REPORTED IN ERROR Normal [facility] Comment on above: Performed By: #### U RINC #### [facility] [id number] [address] Basic metabolic 2000 panelon 03-30-2023 Anion gap [Moles/Vol] 15 mmol/L 9 - 18 mmol/L [facility] Calcium [Mass/Vol] 9.9 mg/dL 8.5 - 10. 2 mg/dL [facility] Chloride [Moles/Vol] 100 mmol/L 97 - 10 5 mmol/L [facility] CO2 [Moles/Vol] 24 mmol/L 22 - 30 mmol/L [facility] Creatinine [Mass/Vol] 0.91 mg/dL 0.73 - 1.22 mg/dL [facility] Estimated Glomerular Filtration Rate 101 mL/min/1.73m >=60 mL/min/1.73 m [facility] Glucose [Mass/Vol] 160 mg/dL High 74 - 99 mg/dL [facility] Potassium [Moles/Vol] 4.6 mmol/L 3.7 - 5.1 mmol/L [facility] Sodium [Moles/Vol] 139 mmol/L 136 - 144 mmol/L [facility] Urea nitrogen [Mass/Vol] 19 mg/dL 9 - 24 mg/dL [facility] CBC W Auto Differential pane l (Bld)on 03-30-2023 Basophils (Bld) [#/Vol] 0.07 10*3/uL <0.11 k/uL [facility] Basophils/100 WBC (Bld) 0.7 % [facility] Differential cell count method Nom (Bld) Auto [facility] Eosinophils (Bld) [#/Vol] 0.11 10*3/uL <0.46 k/uL [facility] Eosinophils/100 WBC (Bld) 1.0 % [facility] Erythrocyte distribution width (RBC) [Ratio] 14.9 % 11.5 - 15.0 % [facility] Hematocrit (Bld) [Volume fraction] 43.6 % 39.0 - 51.0 % [facility] Hemoglobin (Bld) [Mass/Vol] 13.4 g/dL 13.0 - 17.0 g/dL [facility] Immature granulocytes (Bld) [#/Vol] 0.20 10*3/uL High <0.10 k/uL [facility] Immature granulocytes/100 WBC (Bld) 1.9 % [facility] Lymphocytes (Bld) [#/Vol] 1.72 10*3/uL 1.00 - 4.00 k/uL [facility] Lymphocytes/100 WBC (Bld) 16.1 % [facility] MCH (RBC) [Entitic mass] 27.1 pg 26.0 - 34.0 pg [facility] MCHC (RBC) [Mass/Vol] 30.7 g/dL 30.5 - 36.0 g/dL [facility] MCV (RBC) [Entitic vol] 88.1 fL 80.0 - 100.0 fL [facility] Monocytes (Bld) [#/Vol] 0.50 10*3/uL <0.87 k/uL [facility] Monocytes/100 WBC (Bld) 4.7 % [facility] Neutrophils (Bld) [#/Vol] 8.11 10*3/uL High 1.45 - 7.50 k/uL [facility] Neutrophils/100 WBC (Bld) 75.6 % [facility] Nucleated RBC (Bld) [#/Vol] <0.01 k/uL [facility] Nucleated RBC/100 WBC (Bld) [Ratio] 0.0 /100 WBC [facility] Platelet mean volume (Bld) [Entitic vol] 11.0 fL 9.0 - 12.7 fL [facility] Platelets (Bld) [#/Vol] 220 10*3/uL 150 - 400 k/uL [facility] RBC (Bld) [#/Vol] 4.95 10*6/uL 4.20 - 6.0 0 m/uL [facility] WBC (Bld) [#/Vol] 10.71 10*3/uL 3.70 - 11.00 k/uL [facility] Narrative Note - Outpatient- IM ATB Injectionon [...] Updated: 29-Mar-2023 12:16 by Yodit Hernandez (RN) [facility] Narrative Note - Outpatient- IM ATB injectionon 03-28-2023 Narrative Note - Outpatient-IM ATB injection Narrative Note: Discipline/ClinicIM ATB injection Description pt ambulatory to 320 with son. pt given ertapenem 1 g via IM injection. pt reported no issues and d/c to home. Electronic Signatures: Yodit Hernandez) (Signed 28-Mar-2023 12:29) Authored: Narrative Note - OP Last Updated: 28-Mar-2023 12:29 by Yodit Hernandez (RN) [facility] Note - Intakeon 03-27 Clinic Note - [...] Last Updated: 27-Mar-2023 12:05 by Aline Nick) [facility] Note - Intakeon 03-26 Clinic Note - [...] Updated: 26-Mar-2023 12:21 by Taylor Lewis II) [facility] Note - Intakeon 03-25 Clinic Note - [...] 25-Mar-2023 12:10 by Taylor Lewis (HOWIE ARTHUR) [facility] Note - Intakeon 03-24 Clinic Note - [...] 24-Mar-2023 12:00 by Taylor Lewis (HOWIE ARTHUR) [facility] Note - Intakeon 03-23 Clinic Note - [...] you are livingno Depression: Past 2 wks: [place] down, depressed or hopelessno Past 2 wks: [place] little interest/pleasure doing thingsno Any Thoughts of [...] 23-Mar-2023 12:02 by Taylor Lewis (HOWIE ARTHUR) [facility] Glucose Glucometer (BldC) [M ass/Vol]Ordered By: Artem Gonzales on 03-22-2023 Glucose [Mass/Vol] 115 mg/dL 74-106 [facility] Comment on above: MANAGEMENT OF PATIEN T CARE PER NURSING PROTOCOL Absolute lymphocyte countOrd ered By: Artem Gonzales on 03-21-2023 Lymphocytes Auto (Unsp spec) [#/Vol] 1.57 10*3/uL 0.83-4.51 [facility] Basophil percentageOrdered B y: Artem Gonzales on 03-21-2023 Basophils/100 WBC (Bld) 0.4 % 0-1 [facility] Chloride [Moles/Vol] 104 mmol/L 98-107 [facility] Eosinophils/100 WBC (Bld) 1.2 % 0-5 [facility] Glucose [Mass/Vol] 126 mg/dL 74-106 [facility] Comment on above: Fasting Glucose resu lt greater than or equal to 126 mg/dL suggests DIABETES MELLITUS per A.D.A. criteria. Neutrophils (Bld) [#/Vol] 4.9 10*3/uL 2.0-7.7 [facility] Neutrophils/100 WBC (Bld) 65.2 % 47-70 [facility] Potassium [Moles/Vol] 4.3 mmol/L 3.5-5.1 [facility] Sodium [Moles/Vol] 140 mmol/L 136-145 [facility] WBC (Bld) [#/Vol] 7.5 10*3/uL 4.4-11.0 [facility] Blood erythrocytes count (nu mber/volume)Ordered By: Artem Gonzales on 03-21-2023 RBC (Bld) [#/Vol] 4.21 10*6/uL 4.6-6.2 [facility] Blood hemoglobin measurement (mass/volume)Ordered By: Artem Gonzales on 03-21-2023 Hemoglobin (Bld) [Mass/Vol] 11.5 g/dL 13.0-16.5 [facility] Blood lymphocytes/100 leukoc ytesOrdered By: Artem Gonzales on 03-21-2023 Lymphocytes/100 WBC (Bld) 21.0 % 19-41 [facility] Blood monocytes/100 leukocyt esOrdered By: Artem Gonzales on 03-21-2023 Monocytes/100 WBC (Bld) 11.5 % 0-10 [facility] Blood platelet mean volumeOr dered By: Artem Gonzales on 03-21-2023 Platelet mean volume (Bld) [Entitic vol] 10.8 fL 6.2-12.0 [facility] Determination of erythrocyte mean corpuscular volume (MCV)Ordered By: Artem Gonzales on 03-21-2023 MCV (RBC) [Entitic vol] 89.8 fL 80-94 [facility] Hematocrit Auto (Bld) [Volum e fraction]Ordered By: Artem Gonzales on 03-21-2023 Hematocrit (Bld) [Volume fraction] 37.8 % 40-54 [facility] - Chemistry and C hemistry - challengeOrdered By: Artem Gonzales on 03-21-2023 CO2 [Moles/Vol] 29.0 mmol/L 21.0-32.0 [facility] Urea nitrogen/Creatinine [Mass ratio] 10.8 mg/mg 10-20 [facility] - Hematology and Cell countsOrdered By: Artem Gonzales on 03-21-2023 Erythrocyte distribution width (RBC) [Entitic vol] 50.4 fL 35.1-43.9 [facility] Erythrocyte distribution width (RBC) [Ratio] 15.2 % 11.6-14.6 [facility] Immature granulocytes/100 WBC (Bld) 0.700 % 0.0-0.9 [facility] Comment on above: IG% - Immature Granu locytes (promyelocytes, myelocytes and metamyelocytes) > 1% indicates that a LEFT SHIFT is Present. MCH (RBC) [Entitic mass] 27.3 pg 27.0-32.0 [facility] Nucleated RBC/100 WBC (Bld) [Ratio] 0 % 0-5 [facility] MCHC Auto (RBC) [Mass/Vol]Or dered By: Artem Gonzales on 03-21-2023 MCHC (RBC) [Mass/Vol] 30.4 g/dL 32-36 [facility] No Panel InformationOrdered By: Artem Gonzales on 03-21-2023 Estimated Creatinine Clearance Calc 81.96 ml/min [facility] Estimated GFR (MDRD) Amer 99 mL/min >60 [facility] Comment on above: GFR Calc Estimated GFR (MDRD) Non-Af Amer 81 mL/min >60 [facility] Comment on above: Non- GFR Calc Platelets bldOrdered By: Fuentes Gonzales on 03-21-2023 Platelets (Bld) [#/Vol] 183 10*3/uL 150-450 [facility] Serum or plasma calcium talita urement (mass/volume)Ordered By: Artem Gonzales on 03-21-2023 Calcium [Mass/Vol] 9.0 mg/dL 8.5-10.1 [facility] Serum or plasma creatinine m easurement (mass/volume)Ordered By: Artem Gonzales on 03-21-2023 Creatinine [Mass/Vol] 1.02 mg/dL 0.70-1.30 [facility] Comment on above: The validity of the calculated GFR & GFRAA in patients over 70 years has not been determined. Clinical correlation is essential. Serum or plasma urea nitroge n measurement (mass/volume)Ordered By: Artem Gonzales on 03-21-2023 Urea nitrogen [Mass/Vol] 11 mg/dL 7-18 [facility] Thin prep Papanicolaou smear with manual screeningOrdered By: Artme Gonzales on 03-21-2023 Thin prep Papanicolaou smear with manual screening 7 5-15 [facility] Basophil percentageOrdered B y: Hiral Rodriguez on 03-18-2023 Bilirubin [Mass/Vol] 0.80 mg/dL 0.20-1.00 [facility] Comment on above: For patients on eltr ombopag therapy, use of Dimension Martin TBIL is not recommended. Protein [Mass/Vol] 7.3 g/dL 6.4-8.2 [facility] Basophil percentageOrdered B y: Porter Banuelos on 03-18-2023 Lactate [Moles/Vol] 1.2 mmol/L 0.4-2.0 [facility] INR in Blood by Coagulation assayOrdered By: Porter Banuelos on 03-18-2023 INR Coag (Bld) [Relative time] 1.2 {INR} [facility] - Chemistry and C hemistry - challengeOrdered By: Hiral Rodriguez on 03-18-2023 ALP [Catalytic activity/Vol] 87 U/L 45-117 [facility] ALT [Catalytic activity/Vol] 46 U/L 16-61 [facility] Globulin (S) [Mass/Vol] 5.0 g/dL 2.2-4.2 [facility] Laboratory - CoagulationOrde red By: Porter Banuelos on 03-18-2023 PT Coag (PPP) [Time] 15.2 s 11.7-14.9 [facility] Laboratory - Hematology and Cell countsOrdered By: Hiral Rodriguez on 03-18-2023 Anisocytosis Ql (Bld) 1+ [facility] Review by pathologistOrdered By: Hiral Rodriguez on 03-18-2023 Pathologist review Egrry (Unsp spec) [Interp] Reviewed [facility] Comment on above: Previous reported re sult: Ramila mcrae Edited by: ANDREA on 03/19/23:1014Neutrophilic leukocytosis.Clinical correlation necessary.Ash Cerda M.D. 03/19/23 AMENDED REPORT 03/19/23 1014 PATH REV previously reported as: Ramila mcrae Serum or plasma albumin talita urement (mass/volume)Ordered By: Hiral Rodriguez on 03-18-2023 Albumin [Mass/Vol] 2.3 g/dL 3.2-5.0 [facility] Serum or plasma albumin/glob ulin mass ratioOrdered By: Hiral Rodriguez on 03-18-2023 Albumin/Globulin [Mass ratio] 0.5 {ratio} 0.9-2.4 [facility] Thin prep Papanicolaou smear with manual screeningOrdered By: Hiral Rodriguez on 03-18-2023 Thin prep Papanicolaou smear with manual screening 38 U/L 15-37 [facility] Absolute lymphocyte countOrd ered By: Porter Banuelos on 03-17-2023 Lymphocytes Auto (Unsp spec) [#/Vol] 1.20 10*3/uL 0.83-4.51 [facility] Basophil percentageOrdered B y: Porter Banuelos on 03-17-2023 Basophil percentage 25-50 SEEN /hpf 0-5 [facility] Basophils/100 WBC (Bld) 0.3 % 0-1 [facility] Bilirubin [Mass/Vol] 1.00 mg/dL 0.20-1.00 [facility] Comment on above: For patients on eltr ombopag therapy, use of Dimension Martin TBIL is not recommended. Chloride [Moles/Vol] 95 mmol/L 98-107 [facility] Eosinophils/100 WBC (Bld) 0.0 % 0-5 [facility] Glucose [Mass/Vol] 143 mg/dL 74-106 [facility] Comment on above: Fasting Glucose resu lt greater than or equal to 126 mg/dL suggests DIABETES MELLITUS per A.D.A. criteria. Neutrophils (Bld) [#/Vol] 15.8 10*3/uL 2.0-7.7 [facility] Neutrophils/100 WBC (Bld) 84.4 % 47-70 [facility] Potassium [Moles/Vol] 3.4 mmol/L 3.5-5.1 [facility] Protein [Mass/Vol] 8.8 g/dL 6.4-8.2 [facility] Sodium [Moles/Vol] 131 mmol/L 136-145 [facility] WBC (Bld) [#/Vol] 18.7 10*3/uL 4.4-11.0 [facility] Bilirubin Test strip Ql (U)O rdered By: Porter Banuelos on 03-17-2023 Bilirubin Ql (U) 1 mg/dL Negative [facility] Comment on above: COLOR OF URINE MAY A FFECT DIPSTICK RESULTS. Blood erythrocytes count (nu mber/volume)Ordered By: Porter Banuelos on 03-17-2023 RBC (Bld) [#/Vol] 4.83 10*6/uL 4.6-6.2 [facility] Blood hemoglobin measurement (mass/volume)Ordered By: Porter Banuelos on 03-17-2023 Hemoglobin (Bld) [Mass/Vol] 13.5 g/dL 13.0-16.5 [facility] Blood lymphocytes/100 leukoc ytesOrdered By: Porter Banuelos on 03-17-2023 Lymphocytes/100 WBC (Bld) 6.4 % 19-41 [facility] Blood manual differential co mment interpretation (narrative result)Ordered By: Porter Banuelos on 03-17-2023 Manual differential comment Gerry (Bld) [Interp] SCANNED [facility] Comment on above: MONOCYTOSIS NOTED Blood monocytes/100 leukocyt esOrdered By: Porter Banuelos on 03-17-2023 Monocytes/100 WBC (Bld) 8.2 % 0-10 [facility] Blood platelet mean volumeOr dered By: Porter Banuelos on 03-17-2023 Platelet mean volume (Bld) [Entitic vol] 9.5 fL 6.2-12.0 [facility] COVID-19 virus antigen assay Ordered By: Porter Banuelos on 03-17-2023 SARS-CoV-2 (COVID-19) Ag IA.rapid Ql (Resp) [facility] Culture, urineOrdered By: Do enrike Banuelos on 03-17-2023 Bacteria identified Cx Nom (U) ESBL Escherichia coli [facility] Determination of erythrocyte mean corpuscular volume (MCV)Ordered By: Porter Banuelos on 03-17-2023 MCV (RBC) [Entitic vol] 88.0 fL 80-94 [facility] Hematocrit Auto (Bld) [Volum e fraction]Ordered By: Porter Banuelos on 03-17-2023 Hematocrit (Bld) [Volume fraction] 42.5 % 40-54 [facility] Hyaline casts LM.LPF (Urine sed) [#/Area]Ordered By: Porter Banuelos on 03-17-2023 Hyaline casts (Urine sed) [#/Area] 0 /[LPF] 0-5 [facility] Ketones Test strip Ql (U)Ord ered By: Porter Banuelos on 03-17-2023 Ketones Ql (U) 15 mg/dl Negative [facility] Laboratory - Chemistry and C hemistry - challengeOrdered By: Porter Banuelos on 03-17-2023 ALP [Catalytic activity/Vol] 109 U/L 45-117 [facility] ALT [Catalytic activity/Vol] 58 U/L 16-61 [facility] CO2 [Moles/Vol] 31.0 mmol/L 21.0-32.0 [facility] Globulin (S) [Mass/Vol] 6.0 g/dL 2.2-4.2 [facility] Lipase [Catalytic activity/Vol] 25 U/L 13-75 [facility] Comment on above: Please note:LIPASE r evised reference range effective 22. New Lipase methodology. Expected to produce lower values than the previous assay method. NEW Reference Range: 13 - 75 U/L Urea nitrogen/Creatinine [Mass ratio] 10.1 mg/mg 10-20 [facility] - Chemistry and C hemistry - challengeOrdered By: Hiral Rodriguez on 03-17-2023 Magnesium [Mass/Vol] 2.3 mg/dL 1.6-2.6 [facility] Laboratory - Hematology and Cell countsOrdered By: Porter Banuelos on 03-17-2023 Erythrocyte distribution width (RBC) [Entitic vol] 47.5 fL 35.1-43.9 [facility] Erythrocyte distribution width (RBC) [Ratio] 14.6 % 11.6-14.6 [facility] Immature granulocytes/100 WBC (Bld) 0.700 % 0.0-0.9 [facility] Comment on above: IG% - Immature Granu locytes (promyelocytes, myelocytes and metamyelocytes) > 1% indicates that a LEFT SHIFT is Present. MCH (RBC) [Entitic mass] 28.0 pg 27.0-32.0 [facility] Nucleated RBC/100 WBC (Bld) [Ratio] 0 % 0-5 [facility] MCHC Auto (RBC) [Mass/Vol]Or dered By: Porter Banuelos on 03-17-2023 MCHC (RBC) [Mass/Vol] 31.8 g/dL 32-36 [facility] Mucus LM Ql (Urine sed)Order ed By: Porter Banuelos on 03-17-2023 Mucus Ql (Urine sed) 0 SEEN /hpf [facility] Nitrite Test strip Ql (U)Ord ered By: Porter Banuelos on 03-17-2023 Nitrite Ql (U) Positive Negative [facility] No Panel InformationOrdered By: Porter Banuelos on 03-17-2023 Estimated Creatinine Clearance Calc 44.47 ml/min [facility] Estimated GFR (MDRD) Amer 49 mL/min >60 [facility] Comment on above: GFR Calc Estimated GFR (MDRD) Non-Af Amer 40 mL/min >60 [facility] Comment on above: Non- GFR Calc Platelets bldOrdered By: Mike Banuelos on 03-17-2023 Platelets (Bld) [#/Vol] 219 10*3/uL 150-450 [facility] Protein Test strip Ql (U)Ord ered By: Porter Banuelos on 03-17-2023 Protein Ql (U) 500 mg/dl Negative [facility] Review by pathologistOrdered By: Porter Banuelos on 03-17-2023 Pathologist review Gerry (Unsp spec) [Interp] May foll [facility] Serum or plasma albumin talita urement (mass/volume)Ordered By: Porter Banuelos on 03-17-2023 Albumin [Mass/Vol] 2.8 g/dL 3.2-5.0 [facility] Serum or plasma albumin/glob ulin mass ratioOrdered By: Porter Banuelos on 03-17-2023 Albumin/Globulin [Mass ratio] 0.5 {ratio} 0.9-2.4 [facility] Serum or plasma calcium talita urement (mass/volume)Ordered By: Porter Banuelos on 03-17-2023 Calcium [Mass/Vol] 9.1 mg/dL 8.5-10.1 [facility] Serum or plasma creatinine m easurement (mass/volume)Ordered By: Porter Banuelos on 03-17-2023 Creatinine [Mass/Vol] 1.88 mg/dL 0.70-1.30 [facility] Comment on above: The validity of the calculated GFR & GFRAA in patients over 70 years has not been determined. Clinical correlation is essential. Serum or plasma urea nitroge n measurement (mass/volume)Ordered By: Porter Banuelos on 03-17-2023 Urea nitrogen [Mass/Vol] 19 mg/dL 7-18 [facility] Squamous epithelial cells de tection in urine sediment by light microscopyOrdered By: Porter Banuelos on 03-17-2023 Epithelial cells.squamous LM Ql (Urine sed) 0-5 SEEN /hpf 0-5 [facility] Thin prep Papanicolaou smear with manual screeningOrdered By: Porter Banuelos on 03-17-2023 Thin prep Papanicolaou smear with manual screening 45 U/L 15-37 [facility] Thin prep Papanicolaou smear with manual screening 5 5-15 [facility] Urine blood detectionOrdered By: Porter Banuelos on 03-17-2023 RBC Ql (U) 250 /ul Negative [facility] RBC Ql (U) > 100 SEEN /hpf 0-5 [facility] Urine clarityOrdered By: Mike Banuelos on 03-17-2023 Clarity (U) Cloudy Clear [facility] Urine color determinationOrd ered By: Porter Banuelos on 03-17-2023 Color (U) Yellow Yellow [facility] Urine glucose detectionOrder ed By: Porter Banuelos on 03-17-2023 Glucose Ql (U) Normal mg/dl Normal [facility] Urine leukocyte esterase det ection by dipstickOrdered By: Porter Banuelos on 03-17-2023 Leukocyte esterase Test strip Ql (U) 100 /ul Negative [facility] Urine pHOrdered By: Porter craig on 03-17-2023 pH (U) 5.0 [pH] 5.0 - 8.0 [facility] Urine sediment bacteria coun t by microscopy (number/high power field)Ordered By: Porter Banuelos on 03-17-2023 Bacteria LM.HPF (Urine sed) [#/Area] 2 /[HPF] None Seen [facility] Urine sediment fine granular cast count by microscopy (number/low power field)Ordered By: Porter Banuelos on 03-17-2023 Fine Granular Casts LM.LPF (Urine sed) [#/Area] 5-10 SEEN /lpf 0-5 [facility] Urine specific gravity measu rementOrdered By: Proter Banuelos on 03-17-2023 Specific gravity (U) [Rel density] 1.020 1.002-1.030 [facility] Urobilinogen Auto test strip Ql (U)Ordered By: Porter Banuelos on 03-17-2023 Urobilinogen Ql (U) 4 mg/dl Normal [facility] Absolute lymphocyte countOrd ered By: Tye Juarez on 03-04-2023 Lymphocytes Auto (Unsp spec) [#/Vol] 1.44 10*3/uL 0.83-4.51 [facility] Basophil percentageOrdered B y: Tye Juarez on 03-04-2023 Basophils/100 WBC (Bld) 0.4 % 0-1 [facility] Bilirubin [Mass/Vol] 0.90 mg/dL 0.20-1.00 [facility] Comment on above: For patients on eltr ombopag therapy, use of Dimension Martin TBIL is not recommended. Chloride [Moles/Vol] 100 mmol/L 98-107 [facility] Eosinophils/100 WBC (Bld) 0.2 % 0-5 [facility] Glucose [Mass/Vol] 129 mg/dL 74-106 [facility] Comment on above: Fasting Glucose resu lt greater than or equal to 126 mg/dL suggests DIABETES MELLITUS per A.D.A. criteria. Lactate [Moles/Vol] 1.3 mmol/L 0.4-2.0 [facility] Neutrophils (Bld) [#/Vol] 11.7 10*3/uL 2.0-7.7 [facility] Neutrophils/100 WBC (Bld) 83.6 % 47-70 [facility] Potassium [Moles/Vol] 3.7 mmol/L 3.5-5.1 [facility] Protein [Mass/Vol] 8.4 g/dL 6.4-8.2 [facility] Sodium [Moles/Vol] 134 mmol/L 136-145 [facility] WBC (Bld) [#/Vol] 14.0 10*3/uL 4.4-11.0 [facility] Basophil percentage 0-5 SEEN /hpf 0-5 [facility] Bilirubin Test strip Ql (U)O rdered By: Tye Juarez on 03-04-2023 Bilirubin Ql (U) 1 mg/dL Negative [facility] Comment on above: COLOR OF URINE MAY A FFECT DIPSTICK RESULTS. Blood erythrocytes count (nu mber/volume)Ordered By: Tye Juarez on 03-04-2023 RBC (Bld) [#/Vol] 4.75 10*6/uL 4.6-6.2 [facility] Blood hemoglobin measurement (mass/volume)Ordered By: Tye Juarez on 03-04-2023 Hemoglobin (Bld) [Mass/Vol] 13.3 g/dL 13.0-16.5 [facility] Blood lymphocytes/100 leukoc ytesOrdered By: Tye Juarez on 03-04-2023 Lymphocytes/100 WBC (Bld) 10.3 % 19-41 [facility] Blood monocytes/100 leukocyt esOrdered By: Tye Juarez on 03-04-2023 Monocytes/100 WBC (Bld) 5.1 % 0-10 [facility] Blood platelet mean volumeOr dered By: Tye Juarez on 03-04-2023 Platelet mean volume (Bld) [Entitic vol] 10.3 fL 6.2-12.0 [facility] Determination of erythrocyte mean corpuscular volume (MCV)Ordered By: Tye Juarez on 03-04-2023 MCV (RBC) [Entitic vol] 86.9 fL 80-94 [facility] Hematocrit Auto (Bld) [Volum e fraction]Ordered By: Tye Juarez on 03-04-2023 Hematocrit (Bld) [Volume fraction] 41.3 % 40-54 [facility] Influenza virus A and B and SARS-CoV-2 (COVID-19) Ag panel - Upper respiratory specimOrdered By: Tye Juarez on 03-04-2023 SARS-CoV-2 (COVID-19) RNA SEVERO+probe Ql (Resp) [facility] Ketones Test strip Ql (U)Ord ered By: Tye Juarez on 03-04-2023 Ketones Ql (U) 5 mg/dl Negative [facility] Laboratory - Chemistry and C hemistry - challengeOrdered By: Tye Juarez on 03-04-2023 ALP [Catalytic activity/Vol] 100 U/L 45-117 [facility] ALT [Catalytic activity/Vol] 36 U/L 16-61 [facility] CO2 [Moles/Vol] 26.0 mmol/L 21.0-32.0 [facility] Globulin (S) [Mass/Vol] 5.1 g/dL 2.2-4.2 [facility] Lipase [Catalytic activity/Vol] 20 U/L 13-75 [facility] Comment on above: Please note:LIPASE r evised reference range effective 22. New Lipase methodology. Expected to produce lower values than the previous assay method. NEW Reference Range: 13 - 75 U/L Urea nitrogen/Creatinine [Mass ratio] 12.6 mg/mg 10-20 [facility] - Hematology and Cell countsOrdered By: Tye Juarez on 03-04-2023 Erythrocyte distribution width (RBC) [Entitic vol] 47.2 fL 35.1-43.9 [facility] Erythrocyte distribution width (RBC) [Ratio] 14.7 % 11.6-14.6 [facility] Immature granulocytes/100 WBC (Bld) 0.400 % 0.0-0.9 [facility] Comment on above: IG% - Immature Granu locytes (promyelocytes, myelocytes and metamyelocytes) > 1% indicates that a LEFT SHIFT is Present. MCH (RBC) [Entitic mass] 28.0 pg 27.0-32.0 [facility] Nucleated RBC/100 WBC (Bld) [Ratio] 0 % 0-5 [facility] MCHC Auto (RBC) [Mass/Vol]Or dered By: Tye Juarez on 03-04-2023 MCHC (RBC) [Mass/Vol] 32.2 g/dL 32-36 [facility] Mucus LM Ql (Urine sed)Order ed By: Tye Juarez on 03-04-2023 Mucus Ql (Urine sed) 0 SEEN /hpf [facility] Nitrite Test strip Ql (U)Ord ered By: Tye Juarez on 03-04-2023 Nitrite Ql (U) Negative Negative [facility] No Panel InformationOrdered By: Tye Juarez on 03-04-2023 Estimated Creatinine Clearance Calc 55.36 ml/min [facility] Estimated GFR (MDRD) Amer 63 mL/min >60 [facility] Comment on above: GFR Calc Estimated GFR (MDRD) Non-Af Amer 52 mL/min >60 [facility] Comment on above: Non- GFR Calc Platelets bldOrdered By: William Juarez on 03-04-2023 Platelets (Bld) [#/Vol] 210 10*3/uL 150-450 [facility] Protein Test strip Ql (U)Ord ered By: Tye Juarez on 03-04-2023 Protein Ql (U) 100 mg/dl Negative [facility] Serum or plasma albumin talita urement (mass/volume)Ordered By: Tye Juarez on 03-04-2023 Albumin [Mass/Vol] 3.3 g/dL 3.2-5.0 [facility] Serum or plasma albumin/glob ulin mass ratioOrdered By: Tye Juarez on 03-04-2023 Albumin/Globulin [Mass ratio] 0.6 {ratio} 0.9-2.4 [facility] Serum or plasma calcium talita urement (mass/volume)Ordered By: Tye Juarez on 03-04-2023 Calcium [Mass/Vol] 9.7 mg/dL 8.5-10.1 [facility] Serum or plasma creatinine m easurement (mass/volume)Ordered By: Tye Juarez on 03-04-2023 Creatinine [Mass/Vol] 1.51 mg/dL 0.70-1.30 [facility] Comment on above: The validity of the calculated GFR & GFRAA in patients over 70 years has not been determined. Clinical correlation is essential. Serum or plasma urea nitroge n measurement (mass/volume)Ordered By: Tye Juarez on 03-04-2023 Urea nitrogen [Mass/Vol] 19 mg/dL 7-18 [facility] Squamous epithelial cells de tection in urine sediment by light microscopyOrdered By: Tye Juarez on 03-04-2023 Epithelial cells.squamous LM Ql (Urine sed) 0-5 SEEN /hpf 0-5 [facility] Thin prep Papanicolaou smear with manual screeningOrdered By: Tye Juarez on 03-04-2023 Thin prep Papanicolaou smear with manual screening 19 U/L 15-37 [facility] Thin prep Papanicolaou smear with manual screening 8 5-15 [facility] Urine blood detectionOrdered By: Tye Juarez on 03-04-2023 RBC Ql (U) 25 /ul Negative [facility] RBC Ql (U) 0 SEEN /hpf 0-5 [facility] Urine clarityOrdered By: William Juarez on 03-04-2023 Clarity (U) Clear Clear [facility] Urine color determinationOrd ered By: Tye Juarez on 03-04-2023 Color (U) Yellow Yellow [facility] Urine glucose detectionOrder ed By: Tye Juarez on 03-04-2023 Glucose Ql (U) Normal mg/dl Normal [facility] Urine leukocyte esterase det ection by dipstickOrdered By: Tye Juarez on 03-04-2023 Leukocyte esterase Test strip Ql (U) 25 /ul Negative [facility] Urine pHOrdered By: Tye medeiros on 03-04-2023 pH (U) 5.0 [pH] 5.0 - 8.0 [facility] Urine sediment bacteria coun t by microscopy (number/high power field)Ordered By: Tye Juarez on 03-04-2023 Bacteria LM.HPF (Urine sed) [#/Area] 0 /[HPF] None Seen [facility] Urine specific gravity measu rementOrdered By: Tye Juarez on 03-04-2023 Specific gravity (U) [Rel density] 1.025 1.002-1.030 [facility] Urobilinogen Auto test strip Ql (U)Ordered By: Tye Juarez on 03-04-2023 Urobilinogen Ql (U) 4 mg/dl Normal [facility] Absolute lymphocyte countOrd ered By: Gregbhavesh Turner on 01-31-2023 Lymphocytes Auto (Unsp spec) [#/Vol] 1.28 10*3/uL 0.83-4.51 [facility] Basophil percentageOrdered B y: Gregbhavesh Turner on 01-31-2023 Basophil percentage 0 SEEN /hpf 0-5 [facility] Basophils/100 WBC (Bld) 0.2 % 0-1 [facility] Chloride [Moles/Vol] 105 mmol/L 98-107 [facility] Eosinophils/100 WBC (Bld) 1.1 % 0-5 [facility] Glucose [Mass/Vol] 198 mg/dL 74-106 [facility] Comment on above: Fasting Glucose resu lt greater than or equal to 126 mg/dL suggests DIABETES MELLITUS per A.D.A. criteria. Neutrophils (Bld) [#/Vol] 10.6 10*3/uL 2.0-7.7 [facility] Neutrophils/100 WBC (Bld) 82.7 % 47-70 [facility] Potassium [Moles/Vol] 4.0 mmol/L 3.5-5.1 [facility] Sodium [Moles/Vol] 139 mmol/L 136-145 [facility] WBC (Bld) [#/Vol] 12.8 10*3/uL 4.4-11.0 [facility] Bilirubin Test strip Ql (U)O rdered By: Greg Turner on 01-31-2023 Bilirubin Ql (U) Negative Negative [facility] Blood erythrocytes count (nu mber/volume)Ordered By: Greg Turner on 01-31-2023 RBC (Bld) [#/Vol] 4.70 10*6/uL 4.6-6.2 [facility] Blood hemoglobin measurement (mass/volume)Ordered By: Greg Turner on 01-31-2023 Hemoglobin (Bld) [Mass/Vol] 13.3 g/dL 13.0-16.5 [facility] Blood lymphocytes/100 leukoc ytesOrdered By: Greg Turner on 01-31-2023 Lymphocytes/100 WBC (Bld) 10.0 % 19-41 [facility] Blood monocytes/100 leukocyt esOrdered By: Gregbhavesh Turner on 01-31-2023 Monocytes/100 WBC (Bld) 5.5 % 0-10 [facility] Blood platelet mean volumeOr dered By: Greg Turner on 01-31-2023 Platelet mean volume (Bld) [Entitic vol] 9.7 fL 6.2-12.0 [facility] Determination of erythrocyte mean corpuscular volume (MCV)Ordered By: Gregbhavesh Turner on 01-31-2023 MCV (RBC) [Entitic vol] 88.3 fL 80-94 [facility] Hematocrit Auto (Bld) [Volum e fraction]Ordered By: Gregbhavesh Turner on 01-31-2023 Hematocrit (Bld) [Volume fraction] 41.5 % 40-54 [facility] Ketones Test strip Ql (U)Ord ered By: Gregbhavesh Turner on 01-31-2023 Ketones Ql (U) Negative Negative [facility] - Chemistry and C hemistry - challengeOrdered By: Gregbhavesh Turner on 01-31-2023 CO2 [Moles/Vol] 28.0 mmol/L 21.0-32.0 [facility] Urea nitrogen/Creatinine [Mass ratio] 10.8 mg/mg 10-20 [facility] - Hematology and Cell countsOrdered By: Gregbhavesh Turner on 01-31-2023 Erythrocyte distribution width (RBC) [Entitic vol] 46.3 fL 35.1-43.9 [facility] Erythrocyte distribution width (RBC) [Ratio] 14.4 % 11.6-14.6 [facility] Immature granulocytes/100 WBC (Bld) 0.500 % 0.0-0.9 [facility] Comment on above: IG% - Immature Granu locytes (promyelocytes, myelocytes and metamyelocytes) > 1% indicates that a LEFT SHIFT is Present. MCH (RBC) [Entitic mass] 28.3 pg 27.0-32.0 [facility] Nucleated RBC/100 WBC (Bld) [Ratio] 0 % 0-5 [facility] MCHC Auto (RBC) [Mass/Vol]Or dered By: Greg Turner on 01-31-2023 MCHC (RBC) [Mass/Vol] 32.0 g/dL 32-36 [facility] Mucus LM Ql (Urine sed)Order ed By: Greg Turner on 01-31-2023 Mucus Ql (Urine sed) 0 SEEN /hpf [facility] Nitrite Test strip Ql (U)Ord ered By: Greg Turner on 01-31-2023 Nitrite Ql (U) Negative Negative [facility] No Panel InformationOrdered By: Greg Turner on 01-31-2023 Estimated Creatinine Clearance Calc 60.14 ml/min [facility] Estimated GFR (MDRD) Amer 69 mL/min >60 [facility] Comment on above: GFR Calc Estimated GFR (MDRD) Non-Af Amer 57 mL/min >60 [facility] Comment on above: Non- GFR Calc Platelets bldOrdered By: Greg Turner on 01-31-2023 Platelets (Bld) [#/Vol] 201 10*3/uL 150-450 [facility] Protein Test strip Ql (U)Ord ered By: Greg Turner on 01-31-2023 Protein Ql (U) 30 mg/dl Negative [facility] Serum or plasma calcium talita urement (mass/volume)Ordered By: Greg Turner on 01-31-2023 Calcium [Mass/Vol] 9.2 mg/dL 8.5-10.1 [facility] Serum or plasma creatinine m easurement (mass/volume)Ordered By: Greg Turner on 01-31-2023 Creatinine [Mass/Vol] 1.39 mg/dL 0.70-1.30 [facility] Comment on above: The validity of the calculated GFR & GFRAA in patients over 70 years has not been determined. Clinical correlation is essential. Serum or plasma urea nitroge n measurement (mass/volume)Ordered By: Greg Turner on 01-31-2023 Urea nitrogen [Mass/Vol] 15 mg/dL 7-18 [facility] Squamous epithelial cells de tection in urine sediment by light microscopyOrdered By: Greg Turner on 01-31-2023 Epithelial cells.squamous LM Ql (Urine sed) 0-5 SEEN /hpf 0-5 [facility] Thin prep Papanicolaou smear with manual screeningOrdered By: Greg Turner on 01-31-2023 Thin prep Papanicolaou smear with manual screening 6 5-15 [facility] Urine blood detectionOrdered By: Greg Turner on 01-31-2023 RBC Ql (U) 150 /ul Negative [facility] RBC Ql (U) 0-5 SEEN /hpf 0-5 [facility] Urine clarityOrdered By: Greg Turner on 01-31-2023 Clarity (U) Clear Clear [facility] Urine color determinationOrd ered By: Greg Turner on 01-31-2023 Color (U) Yellow Yellow [facility] Urine glucose detectionOrder ed By: Greg Turner on 01-31-2023 Glucose Ql (U) 100 mg/dl Normal [facility] Urine leukocyte esterase det ection by dipstickOrdered By: Greg Turner on 01-31-2023 Leukocyte esterase Test strip Ql (U) Negative Negative [facility] Urine pHOrdered By: Greg ochoa on 01-31-2023 pH (U) 6.0 [pH] 5.0 - 8.0 [facility] Urine sediment bacteria coun t by microscopy (number/high power field)Ordered By: Greg Turner on 01-31-2023 Bacteria LM.HPF (Urine sed) [#/Area] 0 /[HPF] None Seen [facility] Urine specific gravity measu rementOrdered By: Greg Turner on 01-31-2023 Specific gravity (U) [Rel density] 1.015 1.002-1.030 [facility] Urobilinogen Auto test strip Ql (U)Ordered By: Greg Turner on 01-31-2023 Urobilinogen Ql (U) Normal mg/dl Normal [facility] Basophil percentageOrdered B y: Dr. Patton on 10-25-2022 Bilirubin [Mass/Vol] 0.40 mg/dL 0.20-1.00 [facility] Comment on above: For patients on eltr ombopag therapy, use of Dimension Martin TBIL is not recommended. Chloride [Moles/Vol] 104 mmol/L 98-107 [facility] Glucose [Mass/Vol] 210 mg/dL 74-106 [facility] Comment on above: Glucose result great er than or equal to 200 mg/dLsuggests DIABETES MELLITUS per A.D.A. criteria. Potassium [Moles/Vol] 3.9 mmol/L 3.5-5.1 [facility] Protein [Mass/Vol] 6.8 g/dL 6.4-8.2 [facility] Sodium [Moles/Vol] 139 mmol/L 136-145 [facility] WBC (Bld) [#/Vol] 10.3 10*3/uL 4.4-11.0 [facility] Blood erythrocytes count (nu mber/volume)Ordered By: Dr. Patton on 10-25-2022 RBC (Bld) [#/Vol] 4.56 10*6/uL 4.6-6.2 [facility] Blood hemoglobin measurement (mass/volume)Ordered By: Dr. Patton on 10-25-2022 Hemoglobin (Bld) [Mass/Vol] 12.6 g/dL 13.0-16.5 [facility] Blood platelet mean volumeOr dered By: Dr. Patton on 10-25-2022 Platelet mean volume (Bld) [Entitic vol] 9.8 fL 6.2-12.0 [facility] Determination of erythrocyte mean corpuscular volume (MCV)Ordered By: Dr. Patton on 10-25-2022 MCV (RBC) [Entitic vol] 87.5 fL 80-94 [facility] Hematocrit Auto (Bld) [Volum e fraction]Ordered By: Dr. Patton on 10-25-2022 Hematocrit (Bld) [Volume fraction] 39.9 % 40-54 [facility] - Chemistry and C hemistry - challengeOrdered By: Dr. Patton on 10-25-2022 ALP [Catalytic activity/Vol] 94 U/L 45-117 [facility] ALT [Catalytic activity/Vol] 53 U/L 16-61 [facility] CO2 [Moles/Vol] 27.0 mmol/L 21.0-32.0 [facility] Globulin (S) [Mass/Vol] 3.7 g/dL 2.2-4.2 [facility] Urea nitrogen/Creatinine [Mass ratio] 18.5 mg/mg 10-20 [facility] - Hematology and Cell countsOrdered By: Dr. Patton on 10-25-2022 Erythrocyte distribution width (RBC) [Entitic vol] 45.1 fL 35.1-43.9 [facility] Erythrocyte distribution width (RBC) [Ratio] 14.1 % 11.6-14.6 [facility] MCH (RBC) [Entitic mass] 27.6 pg 27.0-32.0 [facility] MCHC Auto (RBC) [Mass/Vol]Or dered By: Dr. Patton on 10-25-2022 MCHC (RBC) [Mass/Vol] 31.6 g/dL 32-36 [facility] No Panel InformationOrdered By: Dr. Patton on 10-25-2022 Estimated Creatinine Clearance Calc 98.31 ml/min [facility] Estimated GFR (MDRD) Amer 120 mL/min >60 [facility] Comment on above: GFR Calc Estimated GFR (MDRD) Non-Af Amer 99 mL/min >60 [facility] Comment on above: Non- GFR Calc Platelets bldOrdered By: Dr. Patton on 10-25-2022 Platelets (Bld) [#/Vol] 183 10*3/uL 150-450 [facility] Serum or plasma albumin talita urement (mass/volume)Ordered By: Dr. Patton on 10-25-2022 Albumin [Mass/Vol] 3.1 g/dL 3.2-5.0 [facility] Serum or plasma albumin/glob ulin mass ratioOrdered By: Dr. Patton on 10-25-2022 Albumin/Globulin [Mass ratio] 0.8 {ratio} 0.9-2.4 [facility] Serum or plasma calcium talita urement (mass/volume)Ordered By: Dr. Patton on 10-25-2022 Calcium [Mass/Vol] 8.8 mg/dL 8.5-10.1 [facility] Serum or plasma creatinine m easurement (mass/volume)Ordered By: Dr. Patton on 10-25-2022 Creatinine [Mass/Vol] 0.86 mg/dL 0.70-1.30 [facility] Comment on above: The validity of the calculated GFR & GFRAA in patients over 70 years has not been determined. Clinical correlation is essential. Serum or plasma urea nitroge n measurement (mass/volume)Ordered By: Dr. Patton on 10-25-2022 Urea nitrogen [Mass/Vol] 16 mg/dL 7-18 [facility] Thin prep Papanicolaou smear with manual screeningOrdered By: Dr. Patton on 10-25-2022 Thin prep Papanicolaou smear with manual screening 28 U/L 15-37 [facility] Thin prep Papanicolaou smear with manual screening 8 5-15 [facility] No Panel InformationOrdered By: Dr. Patton on 10-24-2022 Activated Clotting Time 263 sec 74-137 [facility] TSH BLDon 10-08-2022 TSH Qn 3.010 m[IU]/L 0.270 - 4.200 mIU/L [facility] APTTon 10-07-2022 aPTT Coag (Bld) [Time] 28 s Normal 26 - 39 [facility] Comment on above: Result Comment: THE APTT IS NO LONGER USED FOR MONITORING UNFRACTIONATED HEPARIN THERAPY. FOR MONITORING HEPARIN THERAPY, USE THE HEPARIN ASSAY. Performed By: #### A PTT ####[address] [address] CBC AND DIFFERENTIALon 10-07 % AUTOMATED IMMATURE GRAN 0.2 % Normal 0.0 - 0.9 [facility] Comment on above: Result Comment: Cher ture Granulocyte Count (IG) includes promyelocytes, myelocytes and metamyelocytes but does not include bands. Percent differential counts (%) should be interpreted in the context of the absolute cell counts (cells/L). Performed By: #### C BCDF #### [address] [address] Basophils (Bld) [#/Vol] 0.05 10*3/uL Normal 0.00 - 0.1 0 [facility] Comment on above: Performed By: #### C BCDF #### [address] [address] Basophils/100 WBC (Bld) 0.6 % Normal 0.0 - 2.0 [facility] Comment on above: Performed By: #### C BCDF #### [address] [address] Eosinophils (Bld) [#/Vol] 0.10 10*3/uL Normal 0.00 - 0.70 [facility] Comment on above: Performed By: #### C BCDF #### [address] [address] Eosinophils/100 WBC (Bld) 1.2 % Normal 0.0 - 6.0 [facility] Comment on above: Performed By: #### C BCDF #### [address] [address] Erythrocyte distribution width (RBC) [Ratio] 14.2 % Normal 11.5 - 14.5 [facility] Comment on above: Performed By: #### C BCDF #### [address] [address] Hematocrit (Bld) [Volume fraction] 42.1 % Normal 41.0 - 52.0 [facility] Comment on above: Performed By: #### C BCDF #### [address] [address] Hemoglobin (Bld) [Mass/Vol] 13.3 g/dL Low 13.5 - 17.5 [facility] Comment on above: Performed By: #### C BCDF #### [address] [address] Lymphocytes (Bld) [#/Vol] 1.77 10*3/uL Normal 1.20 - 4.80 [facility] Comment on above: Performed By: #### C BCDF #### [address] [address] Lymphocytes/100 WBC (Bld) 21.4 % Normal 13.0 - 44.0 [facility] Comment on above: Performed By: #### C BCDF #### [address] [address] MCHC (RBC) [Mass/Vol] 31.6 g/dL Low 32.0 - 36.0 [facility] Comment on above: Performed By: #### C BCDF #### [address] [address] MCV (RBC) [Entitic vol] 88 fL Normal 80 - 100 [facility] Comment on above: Performed By: #### C BCDF #### [address] [address] Monocytes (Bld) [#/Vol] 0.42 10*3/uL Normal 0.10 - 1.0 0 [facility] Comment on above: Performed By: #### C BCDF #### [address] [address] Monocytes/100 WBC (Bld) 5.1 % Normal 2.0 - 10.0 [facility] Comment on above: Performed By: #### C BCDF #### [address] [address] Neutrophils (Bld) [#/Vol] 5.90 10*3/uL Normal 1.20 - 7.70 [facility] Comment on above: Result Comment: Perc ent differential counts (%) should be interpreted in the context of the absolute cell counts (cells/L). Performed By: #### C BCDF #### [address] [address] Neutrophils/100 WBC (Bld) 71.5 % Normal 40.0 - 80.0 [facility] Comment on above: Performed By: #### C BCDF #### [address] [address] Platelets (Bld) [#/Vol] 177 10*3/uL Normal 150 - 450 [facility] Comment on above: Performed By: #### C BCDF #### [address] [address] RBC 4.77 x10E12/L Normal 4.50 - 5.90 [facility] Comment on above: Performed By: #### C BCDF #### [address] [address] WBC (Bld) [#/Vol] 8.3 10*3/uL Normal 4.4 - 11.3 [facility] Comment on above: Performed By: #### C BCDF #### [address] [address] COMPREHENSIVE PANELon 2022 Albumin [Mass/Vol] 3.9 g/dL Normal 3.4 - 5.0 [facility] Comment on above: Performed By: #### C MP #### [address] [address] ALP [Catalytic activity/Vol] 83 U/L Normal 33 - 120 [facility] Comment on above: Performed By: #### C MP #### [address] [address] ALT [Catalytic activity/Vol] 39 U/L Normal 10 - 52 [facility] Comment on above: Result Comment: Nini ents treated with Sulfasalazine may generate falsely decreased results for ALT. Performed By: #### C MP #### [address] [address] Anion gap [Moles/Vol] 9 mmol/L Low 10 - 20 [facility] Comment on above: Performed By: #### C MP #### [address] [address] AST [Catalytic activity/Vol] 18 U/L Normal 9 - 39 [facility] Comment on above: Performed By: #### C MP #### [address] [address] Bilirubin [Mass/Vol] 0.5 mg/dL Normal 0.0 - 1.2 [facility] Comment on above: Performed By: #### C MP #### [address] [address] Calcium [Mass/Vol] 9.4 mg/dL Normal 8.6 - 10.3 [facility] Comment on above: Performed By: #### C MP #### [address] [address] Chloride [Moles/Vol] 103 mmol/L Normal 98 - 107 [facility] Comment on above: Performed By: #### C MP #### [address] [address] Creatinine [Mass/Vol] 0.91 mg/dL Normal 0.50 - 1.30 [facility] Comment on above: Performed By: #### C MP #### [address] [address] eGFR MALE >90 Normal >90 [facility] Comment on above: Result Comment: CALC ULATIONS OF ESTIMATED GFR ARE PERFORMED USING THE 2020 CKD-EPI STUDY REFIT EQUATION WITHOUT THE RACE VARIABLE FOR THE IDMS-TRACEABLE CREATININE METHODS. https://jasn.asnjournals.org/content//ASN.2020 297624 Performed By: #### C MP #### [address] [address] Glucose [Mass/Vol] 162 mg/dL High 74 - 99 [facility] Comment on above: Performed By: #### C MP #### [address] [address] HCO3 (Bld) [Moles/Vol] 30 mmol/L Normal 21 - 32 [facility] Comment on above: Performed By: #### C MP #### [address] [address] Potassium [Moles/Vol] 3.9 mmol/L Normal 3.5 - 5.3 [facility] Comment on above: Performed By: #### C MP #### [address] [address] Protein [Mass/Vol] 6.9 g/dL Normal 6.4 - 8.2 [facility] Comment on above: Performed By: #### C MP #### [address] [address] Sodium [Moles/Vol] 138 mmol/L Normal 136 - 145 [facility] Comment on above: Performed By: #### C MP #### [address] [address] Urea nitrogen [Mass/Vol] 17 mg/dL Normal 6 - 23 [facility] Comment on above: Performed By: #### C #### [address] [place] [address] CTA CHEST, ABDOMEN, PELVISon 10-07-2022 CTA CHEST, ABDOMEN, PELVIS Patient Name: NICK LOPES STUDY: CTA CHEST, ABDOMEN ; 10/07/2022 7:02 am INDICATION: epigastric pain with syncope. 51-year-old man with epigastric pain and syncope. COMPARISON: CT chest dated 01/23/2020 CT AP dated 03/29/2014 ACCESSION NUMBER(S): [id number] ORDERING CLINICIAN: BEAU DUMONT TECHNIQUE: Axial non-contrast [...] personally reviewed the image(s) / study with iRna Kwan MD (unit aide tech) and I agree with the findings as stated. This study was interpreted at [facility], [place], [place]. Electronically signed by: FIONA PORTILLO MD Normal [facility] LIPASEon 10-07-2022 Lipase [Catalytic activity/Vol] 34 U/L Normal 9 - 82 [facility] Comment on above: Result Comment: Arabella puncture immediately after or during the administration of Metamizole may lead to falsely low results. Testing should be performed immediately prior to Metamizole dosing. D-dxzpso-y-benzoquinone imine (metabolite of Acetaminophen) will generate erroneously low results in samples for patients that have taken toxic doses of acetaminophen. Performed By: #### L IPAS #### [address] [address] PT/INRon 10-07-2022 PT Coag (PPP) [Time] 11.7 s Normal 9.8 - 13.4 [facility] Comment on above: Performed By: #### P TINR #### [address] [address] PT, INR 1.0 Normal 0.9 - 1.1 [facility] Comment on above: Performed By: #### P TINR #### [address] [address] Provider Note - ED v3on 09-09 Provider [...] light. CARDIOVASCULAR: (more content not included)... Normal [facility] Risk Screen - Adult Emergenc yon [...] Learning Preferenceswritten material Cultural Considerationsnone Developmental Considerationsnone Protestant Considerationsnone Other Learnersnone Learning Assessment (Other Learner): [...] an injured patient at a Trauma Center ([facility]/[place]/[facility]/[place]): no Electronic Signatures: Larisa Carlisle (SUPV) (Signed 07-Oct-2022 06:43) Authored: Preferred Language, Patient Preferred Pharmacy, Advanced Directives, Family Violence Adult, Learning Assessment (Patient), Learning Assessment (Other Learner), Pressure Injury/TB/Substance, Pressure Injury, CAGE Last Updated: 07-Oct-2022 06:43 by Larisa Carlisle (SUPV) [facility] TROPONIN I, HIGH SENSITIVITY on 10-07-2022 TROPONIN I, HIGH SENSITIVITY Canceled [facility] Comment on above: Order Comment: TEST TROPONIN [...] performed using a different testing methodology at [facility] than [facility]. Direct result comparisons should only be made within the same method. Performed By: #### T [facility] #### [id number] TROPONIN I, HIGH SENSITIVITY 3 ng/L Normal 0 - 20 [facility] Comment on above: Result Comment: . [...] performed using a different testing methodology at [facility] than at other [facility]. Direct result comparisons should only be made within the same method. Performed By: #### T [facility] #### [address] [address] TROPONIN I, HIGH SENSITIVITY 3 ng/L Normal 0 - 20 [facility] Comment on above: Result Comment: . [...] performed using a different testing methodology at [facility] than at other [facility]. Direct result comparisons should only be made within the same method. Performed By: #### T [facility] #### [facility] [address] [place] [address] Therapy Communicationon Therapy Communication Message NICK LOPES was (D/C)- last seen: 04/14/22. Pt attended 4/10 visits of POC. Pt had 4 no shows and did not answer any phone calls to discuss. Signatures Electronically signed by : KRIS Kang/Dolores; May 15 2022 8:54AM EST (Author) Normal [employer] XR WRIST LEFT 3+ VIEWS (ARIADNE CRAIG)on [...] on ThuApr 10, 2022 8:48:06 AM EDT [facility] Comment on above: [...] ThuFeb 14, 2022 4:33:41 PM EDT Normal [facility] Comment on above: Order [...] PM EDT Transcribed by: FRENCH SANDERS on [facility] Feb 06, 2022 3:21:49 PM EDT Finalized by: FRENCH SANDERS on [facility] Feb 06, 2022 3:21:49 PM EDT [facility] Comment on above: [...] PM EDT Transcribed by: FRENCH SANDERS on [facility] Feb 06, 2022 3:21:49 PM EDT Finalized by: FRENCH SANDERS on [facility] Feb 06, 2022 3:21:49 PM EDT [facility] Comment on above: Order Comment: WH Injury/Trauma [...] The carpometacarpal alignment is preserved. 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 Tiny ossific density [...] on ThuFebruary 03, 2022 3:10:11 PM EDT [facility] [facility] Comment on above: Order Comment: [facility] Injury/Trauma or Illness?:Injury/Trauma How long have you had these symptoms (acute/chronic)?:Acute Reason for exam?:pain History of cancer?:no Surgeries, chemotherapy, or radiation?:no Type of Exam?:Initial Mechanism of injury?:work related XR Shoulder - left 3 Viewson 12-03-2021 IMPRESSION: No radiographic evidence of acute osseous abnormality Coloring Room Worker: [email or web address] Transcribe Date/Time: Dec 03 2021 2:21P Dictated by : ROBBIN MARAVILLA MD This examination was interpreted and the report reviewed and electronically signed by: ROBBIN MARAVILLA MD on Dec 03 2021 2:21PM [facility] DIVISION OF RADIOLOGY * * *Final [...] Acromioclavicular joint intact. DIVISION OF RADIOLOGY Provider, [facility] * * *Final [...] No radiographic evidence of acute osseous abnormality Coloring [facility] Worker[facility] Transcribe Date/Time: Dec 03 2021 2:21P Dictated by : ROBBIN MARAVILLA MD This examination was interpreted and the report reviewed and electronically signed by: ROBBIN MARAVILLA MD on Dec 03 2021 2:21PM [facility] Radiology Study observation (narrative) [facility] XR Shoulder - left 3 ViewsOr dered By: Cc Provider on 12-03-2021 [facility] XR Chest PA and Lateralon IMPRESSION: No acute radiographic abnormality. Coloring Room Worker: [email or web address] Transcribe Date/Time: Oct 16 2020 11:39A Dictated by : ESPERANZA HERCULES MD This examination was interpreted and the report reviewed and electronically signed by: ESPERANZA HERCULES MD on Oct 16 2020 11:41AM [facility] DIVISION OF RADIOLOGY * * *Final [...] soft tissues: Unremarkable. DIVISION OF RADIOLOGY Provider, [facility] - 10/16/2020 * * *Final Report* * [...] Unremarkable. IMPRESSION IMPRESSION: No acute radiographic abnormality. Coloring Room Worker: [facility] Transcribe Date/Time: Oct 16 2020 11:39A Dictated by : ESPERANZA HERCULES MD This examination was interpreted and the report reviewed and electronically signed by: ESPERANZA HERCULES MD on Oct 16 2020 11:41AM EST [facility] Radiology Study observation (narrative) [facility] XR Chest PA and LateralOrder ed By: Ccf Provider on 10-16-2020 [facility] Operation-Procedureon 2017 Operation-Procedure [facility], [place] [address]HXIJ MARIANNE NICK [facility] [id number] 1970DATE 05/03/2018OPERATIVE REPORT / PROCEDURE NOTESURGEON MELODY CROWLEYEPLEVI TITLEOperative NoteDATE OF SEHLWCDELUUUZL51/27/201 8.SURGEONMichaeLETI GuerraMASSISTANTNone.PREOPE RATIVE DIAGNOSISRight foot chronic plantar [...] the heel, followed by use of the Triangle 1 for the microdebridement and the micro [...] over the weekend. Otherwise, [facility]CITLALY CROWLEY 05/03/2018 12:25 [id number] 05/03/2018 13:12 MGS/MODLElectronically Signed By Ellie Hernandez Dpm on 18 May 2018 16:53:28 [facility] CBC and Differentialon 04-23 Basophils Auto #/vol (Bld) 0.1 K/mcL Invalid Interpretation Code 0 - 0.2 [facility] Basophils/100 WBC Auto (Bld) 0.4 % Normal [facility] Comment on above: Performed By: #### C BCDIF ####Unless otherwise noted, all testing performed by [place] [phone]: [id number] Director: Addison Aceves M.D. Eosinophils Auto #/vol (Bld) 0.1 K/mcL Invalid Interpretation Code 0 - 0.5 [facility] Eosinophils/100 WBC Auto (Bld) 0.7 % Normal [facility] Comment on above: Performed By: #### C BCDIF ####Unless otherwise noted, all testing performed by [place] [phone]: [id number] Director: Addison Aceves M.D. Erythrocyte distribution width Auto Ratio (RBC) 14.9 % High 10-14.3 [facility] Comment on above: Performed By: #### C BCDIF ####Unless otherwise noted, all testing performed by [place] [id number]: [id number] Director: Addison Aceves M.D. Hematocrit Auto Volume Fraction (Bld) 46.8 % Normal 37.9-49.2 [facility] Comment on above: Performed By: #### C BCDIF ####Unless otherwise noted, all testing performed by [address] [phone]: [id number] Director: Addison Aceves M.D. Hemoglobin mass conc (Bld) 15.5 g/dL Normal 12.9-16.9 [facility] Comment on above: Performed By: #### C BCDIF ####Unless otherwise noted, all testing performed by [address] [phone]: [id number] Director: Addison Aceves M.D. Interpretation and review of laboratory results Abnormal Invalid Interpretation Code [facility] Lymphocytes Auto #/vol (Bld) 2.7 K/mcL Invalid Interpretation Code 0.9 - 3.6 [facility] Lymphocytes/100 WBC Auto (Bld) 20.4 % Normal [facility] Comment on above: Performed By: #### C BCDIF ####Unless otherwise noted, all testing performed by [address] [phone]: [id number] Director: Addison Aceves M.D. MCH Auto Entitic mass (RBC) 28.7 pg Normal 27.7-34.6 [facility] Comment on above: Performed By: #### C BCDIF ####Unless otherwise noted, all testing performed by [address] [id number]: [id number] Director: Addison Aceves M.D. MCHC Auto mass conc (RBC) 33.2 g/dL Normal 32.9-35.5 [facility] Comment on above: Performed By: #### C BCDIF ####Unless otherwise noted, all testing performed by [address] [phone]: [id number] Director: Addison Aceves M.D. MCV Auto Entitic volume (RBC) 86.6 fL Normal 82.8-99.3 [facility] Comment on above: Performed By: #### C BCDIF ####Unless otherwise noted, all testing performed by [address] [phone]: [id number] Director: Addison Aceves M.D. Monocytes Auto #/vol (Bld) 0.6 K/mcL Invalid Interpretation Code 0.2 - 0.6 [facility] Monocytes/100 WBC Auto (Bld) 4.8 % Normal [facility] Comment on above: Performed By: #### C BCDIF ####Unless otherwise noted, all testing performed by [address] [phone]: [id number] Director: Addison Aceves M.D. Neutrophils Auto #/vol (Bld) 9.9 K/mcL High 1.4 - 6.8 [facility] Platelet mean volume Auto Entitic volume (Bld) 8.4 fL Normal 6.6-10.8 [facility] Comment on above: Performed By: #### C BCDIF ####Unless otherwise noted, all testing performed by [address] [phone]: [id number] Director: Addison Aceves M.D. Platelets Auto #/vol (Bld) 212 K/mcL Invalid Interpretation Code 139 - 354 [facility] RBC Auto #/vol (Bld) 5.40 M/mcL Invalid Interpretation Code 4.0 - 5.5 [facility] Segmented Neut 73.7 % Invalid Interpretation Code [facility] WBC Auto #/vol (Bld) 13.4 K/mcL High 3.6 - 10.4 [facility] CBC with Diffon 04-23-2018 Basophils Auto #/vol (Bld) 0.1 K/mcL Normal 0-0.2 [facility] Comment on above: Performed By: #### C BCDIF ####Unless otherwise noted, all testing performed by [facility] [address] [phone]: [id number] Director: Addison Aceves M.D. Eosinophils Auto #/vol (Bld) 0.1 K/mcL Normal 0-0.5 [facility] Comment on above: Performed By: #### C BCDIF ####Unless otherwise noted, all testing performed by [address] [phone]: [id number] Director: Addison Aceves M.D. Lymphocytes Auto #/vol (Bld) 2.7 K/mcL Normal 0.9-3.6 [facility] Comment on above: Performed By: #### C BCDIF ####Unless otherwise noted, all testing performed by [place] [id number]: [id number] Director: Addison Aceves M.D. Monocytes Auto #/vol (Bld) 0.6 K/mcL Normal 0.2-0.6 [facility] Comment on above: Performed By: #### C BCDIF ####Unless otherwise noted, all testing performed by [place] [phone]: [id number] Director: Addison Aceves M.D. Neutrophils Auto #/vol (Bld) 9.9 K/mcL High 1.4-6.8 [facility] Comment on above: Performed By: #### C BCDIF ####Unless otherwise noted, all testing performed by [address] [phone]: [id number] Director: Addison Aceves M.D. Platelets Auto #/vol (Bld) 212 K/mcL Normal 139-354 [facility] Comment on above: Performed By: #### C BCDIF ####Unless otherwise noted, all testing performed by [address]CL[address]: [id number] Director: Addison Aceves M.D. RBC Auto #/vol (Bld) 5.40 M/mcL Normal 4.0-5.5 [facility] Comment on above: Performed By: #### C BCDIF ####Unless otherwise noted, all testing performed by [address] [phone]: [id number] Director: Addison Aceves M.D. Segmented Neut % 73.7 % Normal [facility] Comment on above: Performed By: #### C BCDIF ####Unless otherwise noted, all testing performed by [address] [phone]: [id number] Director: Addison Aceves M.D. WBC Auto #/vol (Bld) 13.4 K/mcL High 3.6-10.4 [facility] Comment on above: Performed By: #### C BCDIF ####Unless otherwise noted, all testing performed by [address] [phone]: [id number] Director: Addison Aceves M.D. Urinalysison 04-23-2018 Bilirubin, Urine Negative Normal NEG;NEGATIV E [facility] Comment on above: Performed By: #### U A ####Unless otherwise noted, all testing performed by [address] [phone]: [id number] Director: Addison Aceves M.D. Blood, Urine Negative Normal NEG;NEGATIV E [facility] Comment on above: Performed By: #### U A ####Unless otherwise noted, all testing performed by [address] [phone]: [id number] Director: Addison Aceves M.D. Character Clear Normal [facility] Comment on above: Performed By: #### U A ####Unless otherwise noted, all testing performed by [address] [phone]: [id number] Director: Addison Aceves M.D. Color Nom (U) Straw Normal [facility] Comment on above: Performed By: #### U A ####Unless otherwise noted, all testing performed by [address] [phone]: [id number] Director: Addison Aceves M.D. Glucose Ql (U) Negative Normal NEG;NEGATIV E [facility] Comment on above: Performed By: #### U A ####Unless otherwise noted, all testing performed by [address] [phone]: [id number] Director: Addison Aceves M.D. Ketones Ql (U) Negative Invalid Interpretation Code NEG;NEGATIV E mg/dL [facility] Leukocyte esterase Test strip Ql (U) Negative Invalid Interpretation Code Negative [facility] Nitrite, Urine Negative Normal NEG;NEGATIV E [facility] Comment on above: Performed By: #### U A ####Unless otherwise noted, all testing performed by [address] [phone]: [id number] Director: Addison Aceves M.D. pH Test strip (U) 5.0 [pH] Normal 4.5-8.[address] [facility] Comment on above: Performed By: #### U A ####Unless otherwise noted, all testing performed by [address] [id number]: [id number] Director: Addison Aceves M.D. Protein, Urine Negative Normal NEG;NEGATIV E [facility] Comment on above: Performed By: #### U A ####Unless otherwise noted, all testing performed by [address] [phone]: [id number] Director: Addison Aceves M.D. RBCs, Urine < 1 Invalid Interpretation Code 0 - 5 /HPF [facility] Specific [place] 1.008 1 Invalid Interpretation Code 1.003 - 1.029 [facility] Urobilinogen, Urine < 2.0 Normal <2 [facility] Comment on above: Performed By: #### U A ####Unless otherwise noted, all testing performed by [address] [phone]: [id number] Director: Addison Aceves M.D. WBCs, Urine 1 /HPF Invalid Interpretation Code 0 - 5 [facility] Urinalysis, Routineon 2017 Ketone,Urine Negative Normal NEG;NEGATIV E [facility] Comment on above: Performed By: #### U A ####Unless otherwise noted, all testing performed by [address] [phone]: [id number] Director: Addison Aceves M.D. Leuk.Esterase,Urine Negative Normal Negative [facility] Comment on above: Performed By: #### U A ####Unless otherwise noted, all testing performed by [address] [phone]: [id number] Director: Addison Aceves M.D. RBC LM.HPF #/area (Urine sed) /[HPF] Normal 0-5 [facility] Comment on above: Performed By: #### U A ####Unless otherwise noted, all testing performed by [address] [phone]: [id number] Director: Addison Aceves M.D. Specific [place],Urine 1.008 Normal 1.003-1.029 [facility] Comment on above: Performed By: #### U A ####Unless otherwise noted, all testing performed by [address] [id number]: [id number] Director: Addison Aceves M.D. WBC,Urine 1 /HPF Normal 0-5 [facility] Comment on above: Performed By: #### U A ####Unless otherwise noted, all testing performed by [address] [id number]: [id number] Director: Addison Aceves M.D. Vital Signs Date Time Vital Sign Value Performing Clinician Facility 05-26-2025 16:56-0400 Body temperature 98.71 [degF] Velia Atwoodta HEAD OF HISTORY-FUEL INJECTION SERVICER Work Phone: [facility] 05-26-2025 16:56-0400 Diastolic blood pressure 93 mm[Hg] Velia Atwoodta HEAD OF HISTORY-FUEL INJECTION SERVICER Work Phone: [facility] 05-26-2025 16:56-0400 Heart rate 77 /min Velia Atwoodta HEAD OF HISTORY-FUEL INJECTION SERVICER Work Phone: [facility] 05-26-2025 16:56-0400 Respiratory rate 18 /min Velia Atwoodta HEAD OF HISTORY-FUEL INJECTION SERVICER Work Phone: [facility] 05-26-2025 16:56-0400 SaO2% (BldA) [Mass fraction] 97 % Velia Atwoodta HEAD OF HISTORY-FUEL INJECTION SERVICER Work Phone: [facility] 05-26-2025 16:56-0400 Systolic blood pressure 145 mm[Hg] Velia Atwoodta HEAD OF HISTORY-FUEL INJECTION SERVICER Work Phone: [facility] 10-04-2024 15:58-0500 Body height 172.2 cm Ginger Lugo MD Work Phone: [facility] 10-04-2024 15:58-0500 Body mass index (BMI) [Ratio] 47.26 kg/m2 Ginger Lugo MD Work Phone: [facility] 10-04-2024 15:58-0500 Body weight 140.16 kg Ginger Lugo MD Work Phone: [facility] 10-04-2024 15:58-0500 Diastolic blood pressure 68 mm[Hg] Ginger Lugo MD Work Phone: [facility] 10-04-2024 15:58-0500 Heart rate 89 /min Ginger Lugo MD Work Phone: [facility] 10-04-2024 15:58-0500 SaO2% (BldA) [Mass fraction] 95 % Ginger Lugo MD Work Phone: [facility] 10-04-2024 15:58-0500 Systolic blood pressure 128 mm[Hg] Ginger Lugo MD Work Phone: [facility] 09-19-2024 14:13-0500 Body height 172.2 cm Jose Loo MD Work Phone: [facility] Comment on above: with shoes 09-19-2024 14:13-0500 Body mass index (BMI) [Ratio] 48.36 kg/m2 Jose Loo MD Work Phone: [facility] 09-19-2024 14:13-0500 Body weight 143.4 kg Jose Loo MD Work Phone: [facility] 09-15-2024 11:14-0500 Body mass index (BMI) [Ratio] 52.6 kg/m2 Nuha Suppan HEAD OF HISTORY.FUEL INJECTION SERVICER Work Phone: [facility] 09-15-2024 11:14-0500 Body temperature 97.11 [degF] Nuha Suppan HEAD OF HISTORY.FUEL INJECTION SERVICER Work Phone: [facility] 09-15-2024 11:14-0500 Body weight 145.6 kg Nuha Suppan HEAD OF HISTORY.FUEL INJECTION SERVICER Work Phone: [facility] 09-15-2024 11:14-0500 Diastolic blood pressure 80 mm[Hg] Nuha Suppan HEAD OF HISTORY.FUEL INJECTION SERVICER Work Phone: [facility] 09-15-2024 11:14-0500 Heart rate 98 /min Nuha Suppan HEAD OF HISTORY.FUEL INJECTION SERVICER Work Phone: [facility] 09-15-2024 11:14-0500 SaO2% (BldA) [Mass fraction] 97 % Nuha Suppan HEAD OF HISTORY.FUEL INJECTION SERVICER Work Phone: [facility] 09-15-2024 11:14-0500 Systolic blood pressure 130 mm[Hg] Nuha Suppan HEAD OF HISTORY.FUEL INJECTION SERVICER Work Phone: [facility] 08-09-2024 12:49-0500 Body height 166.4 cm Ginger Lugo MD Work Phone: [facility] 08-09-2024 12:49-0500 Body mass index (BMI) [Ratio] 50.87 kg/m2 Ginger Lugo MD Work Phone: [facility] 08-09-2024 12:49-0500 Body weight 140.8 kg Ginger Lugo MD Work Phone: [facility] 08-09-2024 12:49-0500 Diastolic blood pressure 88 mm[Hg] Ginger Lugo MD Work Phone: [facility] 08-09-2024 12:49-0500 Heart rate 75 /min Ginger Lugo MD Work Phone: [facility] 08-09-2024 12:49-0500 SaO2% (BldA) [Mass fraction] 96 % Ginger Lugo MD Work Phone: [facility] 08-09-2024 12:49-0500 Systolic blood pressure 134 mm[Hg] Ginger Lugo MD Work Phone: [facility] 05-04-2024 14:45-0400 Diastolic blood pressure 80 mm[Hg] Ginger Lugo MD Work Phone: [facility] 05-04-2024 14:45-0400 Systolic blood pressure 134 mm[Hg] Ginger Lugo MD Work Phone: [facility] 05-04-2024 14:11-0400 Body mass index (BMI) [Ratio] 48.18 kg/m2 Ginger Lugo MD Work Phone: [facility] 05-04-2024 14:11-0400 Body weight 133.36 kg Ginger Lugo MD Work Phone: [facility] 05-04-2024 14:11-0400 Heart rate 70 /min Ginger Lugo MD Work Phone: [facility] 05-04-2024 14:11-0400 SaO2% (BldA) [Mass fraction] 95 % Ginger Lugo MD Work Phone: [facility] 03-28-2024 18:41-0400 Diastolic blood pressure 80 mm[Hg] Ginger Lugo MD Work Phone: [facility] 03-28-2024 18:41-0400 Systolic blood pressure 136 mm[Hg] Ginger Lugo MD Work Phone: [facility] 03-28-2024 18:12-0400 Body mass index (BMI) [Ratio] 47.85 kg/m2 Ginger Lugo MD Work Phone: [facility] 03-28-2024 18:12-0400 Body weight 132.45 kg Ginger Lugo MD Work Phone: [facility] 03-28-2024 18:12-0400 Heart rate 69 /min Ginger Lugo MD Work Phone: [facility] 03-28-2024 18:12-0400 SaO2% (BldA) [Mass fraction] 96 % Ginger Lugo MD Work Phone: [facility] 10-30-2023 14:17-0500 Body height 166.4 cm Ginger Lugo MD Work Phone: [facility] 10-30-2023 14:17-0500 Body weight 133.72 kg Ginger Lugo MD Work Phone: [facility] 10-30-2023 14:17-0500 Diastolic blood pressure 84 mm[Hg] Ginger Lugo MD Work Phone: [facility] 10-30-2023 14:17-0500 Heart rate 76 /min Ginger Lugo MD Work Phone: [facility] 10-30-2023 14:17-0500 SaO2% (BldA) [Mass fraction] 96 % Ginger Lugo MD Work Phone: [facility] 10-30-2023 14:17-0500 Systolic blood pressure 128 mm[Hg] Ginger Lugo MD Work Phone: [facility] 10-29-2023 10:15-0500 Body height 172.7 cm Abilio Gong CNP Work Phone: [facility] 10-29-2023 10:15-0500 Body mass index (BMI) [Ratio] 44.4 kg/m2 Abilio Gong FUEL INJECTION SERVICER Work Phone: [facility] 10-29-2023 10:15-0500 Body weight 132.45 kg Abilio Gong FUEL INJECTION SERVICER Work Phone: [facility] 10-29-2023 10:15-0500 Diastolic blood pressure 72 mm[Hg] Abilio Sextonk FUEL INJECTION SERVICER Work Phone: [facility] 10-29-2023 10:15-0500 Heart rate 72 /min Abilio Sextonk FUEL INJECTION SERVICER Work Phone: [facility] 10-29-2023 10:15-0500 SaO2% (BldA) [Mass fraction] 94 % Abilio Gong FUEL INJECTION SERVICER Work Phone: [facility] 10-29-2023 10:15-0500 Systolic blood pressure 112 mm[Hg] Abilio Sextonk FUEL INJECTION SERVICER Work Phone: [facility] 10-24-2023 11:21-0500 Body temperature 97.9 [degF] Ginger Lugo MD Work Phone: [facility] 10-24-2023 11:21-0500 Body weight 129.55 kg Ginger Lugo MD Work Phone: [facility] 10-24-2023 11:21-0500 Diastolic blood pressure 75 mm[Hg] Ginger Lugo MD Work Phone: [facility] 10-24-2023 11:21-0500 Heart rate 79 /min Ginger Lugo MD Work Phone: [facility] 10-24-2023 11:21-0500 Respiratory rate 20 /min Ginger Lugo MD Work Phone: [facility] 10-24-2023 11:21-0500 SaO2% (BldA) [Mass fraction] 96 % Ginger Lugo MD Work Phone: [facility] 10-24-2023 11:21-0500 Systolic blood pressure 118 mm[Hg] Ginger Lugo MD Work Phone: [facility] 10-16-2023 12:55-0500 Body temperature 98.1 [degF] Nuha Suppan HEAD OF HISTORY.CIA AGENT Work Phone: [facility] 10-16-2023 12:55-0500 Body weight 132.45 kg Nuha Suppan HEAD OF HISTORY.CIA AGENT Work Phone: [facility] 10-16-2023 12:55-0500 Diastolic blood pressure 78 mm[Hg] Nuha Suppan HEAD OF HISTORY.CIA AGENT Work Phone: [facility] 10-16-2023 12:55-0500 Heart rate 72 /min Nuha Suppan HEAD OF HISTORY.CIA AGENT Work Phone: [facility] 10-16-2023 12:55-0500 Respiratory rate 20 /min Nuha Suppan HEAD OF HISTORY.CIA AGENT Work Phone: [facility] 10-16-2023 12:55-0500 SaO2% (BldA) [Mass fraction] 96 % Nuha Suppan HEAD OF HISTORY.CIA AGENT Work Phone: [facility] 10-16-2023 12:55-0500 Systolic blood pressure 132 mm[Hg] Nuha Suppan HEAD OF HISTORY.CIA AGENT Work Phone: [facility] 10-09-2023 15:30-0500 Diastolic blood pressure 96 mm[Hg] Dr. Ginger Lugo Work Phone: [facility] 10-09-2023 15:30-0500 Heart rate 60 /min Dr. Ginger Lugo Work Phone: [facility] 10-09-2023 15:30-0500 Respiratory rate 18 /min Dr. Ginger Lugo Work Phone: [facility] 10-09-2023 15:30-0500 SaO2% (BldA) [Mass fraction] 97 % Dr. Ginger Lugo Work Phone: [facility] 10-09-2023 15:30-0500 Systolic blood pressure 158 mm[Hg] Dr. Ginger Lugo Work Phone: [facility] 10-09-2023 14:36-0500 Body temperature 97.6 [degF] Dr. Ginger Lugo Work Phone: [facility] 10-09-2023 09:40-0500 Inhaled oxygen flow rate 2 L/min Dr. Ginger Lugo Work Phone: [facility] 10-07-2023 11:48-0500 Body height 172.[address] Ginger Lugo Work Phone: [facility] 10-07-2023 11:48-0500 Body mass index (BMI) [Ratio] 44.6 kg/m2 Dr. Ginger Lugo Work Phone: [facility] 10-07-2023 11:48-0500 Body weight 133.[address] Ginger Lugo Work Phone: [facility] 10-07-2023 11:12-0500 Diastolic blood pressure 83 mm[Hg] [facility] 10-07-2023 11:12-0500 Heart rate 64 /min [facility] 10-07-2023 11:12-0500 Respiratory rate 18 /min [facility] 10-07-2023 11:12-0500 SaO2% (BldA) [Mass fraction] 96 % [facility] 10-07-2023 11:12-0500 Systolic blood pressure 112 mm[Hg] [facility] 10-07-2023 08:44-0500 Body height 172.72 cm [facility] 10-07-2023 08:44-0500 Body mass index (BMI) [Ratio] 45.2 kg/m2 [facility] 10-07-2023 08:44-0500 Body temperature 97.2 [degF] [facility] 10-07-2023 08:44-0500 Body weight 134.9 kg [facility] 09-22-2023 22:00-0500 Diastolic blood pressure 79 mm[Hg] Ismael Durham DO Work Phone: [facility] 09-22-2023 22:00-0500 Heart rate 82 /min Ismael Durham DO Work Phone: [facility] 01-16-2024 22:00-0500 Respiratory rate 18 /min Ismael Durham DO Work Phone: [facility] 09-22-2023 22:00-0500 SaO2% (BldA) [Mass fraction] 95 % Ismael Durham DO Work Phone: [facility] 09-22-2023 22:00-0500 Systolic blood pressure 137 mm[Hg] Ismael Durham DO Work Phone: [facility] 09-22-2023 18:36-0500 Body temperature 37.0 Ismael Durham DO Work Phone: [facility] 09-22-2023 17:49-0500 Body temperature 97.7 [degF] Ismael Durham DO Work Phone: [facility] 09-22-2023 17:17-0500 Body height 172.7 cm Ismael Durham DO Work Phone: [facility] 09-22-2023 17:17-0500 Body mass index (BMI) [Ratio] 44.09 kg/m2 Ismael Durham DO Work Phone: [facility] 09-22-2023 17:17-0500 Body weight 131.54 kg Ismael Durham DO Work Phone: [facility] 04-22-2023 16:01-0400 Body mass index (BMI) [Ratio] 34.97 kg/m2 Ginger Lugo Work Phone: TG-Enwzesk-Xranrhc Work Phone: 04-22-2023 16:01-0400 Body surface area Derived from formula 2.17 m2 Ginger Lugo Work Phone: SZ-Adddatn-Cmsninm Work Phone: 04-22-2023 16:01-0400 Body weight 104.33 kg Ginger Lugo Work Phone: VH-Upkdxut-Bbrmtbu Work Phone: 04-22-2023 16:01-0400 Respiratory rate 16 /min Ginger Lugo Work Phone: RH-Jjcotvr-Mddvdya Work Phone: 04-16-2023 09:05-0400 Body height 172.72 cm Ginger Giorgio Kowalskio Work Phone: ID-Zrbyrac-Jlxxyyy d HC 232 DO Work Phone: 04-16-2023 09:05-0400 Body mass index (BMI) [Ratio] 36.34 kg/m2 Ginger Giorgio Kowalskio Work Phone: XE-Jmjzdpu-Jzyyybj d HC 232 DO Work Phone: 04-16-2023 09:05-0400 Body surface area Derived from formula 2.2 m2 Ginger Giorgio Kowalskio Work Phone: GW-Blnzaou-Bihxsbr d HC 232 DO Work Phone: 04-16-2023 09:05-0400 Body weight 108.41 kg Ginger Giorgio Kowalskio Work Phone: OD-Vgxofle-Urgjlrq d HC 232 DO Work Phone: 04-16-2023 09:05-0400 Respiratory rate 16 /min Ginger Giorgio Pema Work Phone: PO-Gaidqcs-Xkwnbvq d HC 232 DO Work Phone: 03-30-2023 09:28-0400 Body weight 126.55 kg Ginger Lugo MD Work Phone: [facility] 03-30-2023 09:28-0400 Diastolic blood pressure 72 mm[Hg] Ginger Lugo MD Work Phone: [facility] 03-30-2023 09:28-0400 Heart rate 103 /min Ginger Lugo MD Work Phone: [facility] 03-30-2023 09:28-0400 SaO2% (BldA) [Mass fraction] 96 % Ginger Lugo MD Work Phone: [facility] 03-30-2023 09:28-0400 Systolic blood pressure 132 mm[Hg] Ginger Lugo MD Work Phone: [facility] 03-22-2023 11:39-0400 Diastolic blood pressure 85 mm[Hg] Dr. Ginger Lugo Work Phone: [facility] 03-22-2023 11:39-0400 Heart rate 67 /min Dr. Ginger Lugo Work Phone: 8(078)156-400319 [place] [address] 03-22-2023 11:39-0400 Systolic blood pressure 138 mm[Hg] Dr. Ginger Lugo Work Phone: 6(784)426-907734 [place] [address] 03-22-2023 10:15-0400 Body temperature 97.8 [degF] Dr. Ginger Lugo Work Phone: 3(286)000-551034 [place] [address] 03-22-2023 10:15-0400 Respiratory rate 18 /min Dr. Ginger Lugo Work Phone: 5(203)931-365919 [place] [address] 03-22-2023 10:15-0400 SaO2% (BldA) [Mass fraction] 98 % Dr. Ginger Lugo Work Phone: 8(685)349-622334 [place] [address] 03-22-2023 07:51-0400 Inhaled oxygen flow rate 2 L/min Dr. Ginger Lugo Work Phone: 3(602)263-525434 [place] [address] 03-22-2023 05:49-0400 Body mass index (BMI) [Ratio] 42.4 kg/m2 Dr. Ginger Lugo Work Phone: 2(601)407-908634 [place] [address] 03-22-2023 05:49-0400 Body weight 126.[address] Ginger Lugo Work Phone: 1(102)501-541134 [place] [address] 03-18-2023 14:34-0400 Body height 172.[address] Ginger Lugo Work Phone: 7(824)390-790334 [place] [address] 03-18-2023 00:36-0400 Body temperature 98.5 [degF] [facility] 03-18-2023 00:36-0400 Diastolic blood pressure 57 mm[Hg] [facility] 03-18-2023 00:36-0400 Heart rate 108 /min [facility] 03-18-2023 00:36-0400 Respiratory rate 17 /min [facility] 03-18-2023 00:36-0400 SaO2% (BldA) [Mass fraction] 96 % [facility] 03-18-2023 00:36-0400 Systolic blood pressure 130 mm[Hg] [facility] 03-18-2023 00:24-0400 Inhaled oxygen concentration 21 % Dr. Ginger Lugo Work Phone: [facility] 03-17-2023 19:23-0400 Body height 172.72 cm [facility] 03-17-2023 19:23-0400 Body mass index (BMI) [Ratio] 42.8 kg/m2 [facility] 03-17-2023 19:23-0400 Body weight 127.86 kg [facility] 03-05-2023 01:10-0400 Diastolic blood pressure 74 mm[Hg] [facility] 03-05-2023 01:10-0400 Heart rate 99 /min [facility] 03-05-2023 01:10-0400 Respiratory rate 20 /min [facility] 03-05-2023 01:10-0400 SaO2% (BldA) [Mass fraction] 95 % [facility] 03-05-2023 01:10-0400 Systolic blood pressure 122 mm[Hg] [facility] 03-04-2023 22:43-0400 Body temperature 99.1 [degF] [facility] 03-04-2023 21:54-0400 Body height 172.72 cm [facility] 03-04-2023 21:54-0400 Body mass index (BMI) [Ratio] 42.3 kg/m2 [facility] 03-04-2023 21:54-0400 Body weight 126.1 kg [facility] 01-31-2023 10:00-0400 Diastolic blood pressure 75 mm[Hg] [facility] 01-31-2023 10:00-0400 Heart rate 78 /min [facility] 01-31-2023 10:00-0400 Respiratory rate 16 /min [facility] 01-31-2023 10:00-0400 SaO2% (BldA) [Mass fraction] 98 % [facility] 01-31-2023 10:00-0400 Systolic blood pressure 141 mm[Hg] [facility] 01-31-2023 07:56-0400 Body mass index (BMI) [Ratio] 42.8 kg/m2 [facility] 01-31-2023 07:56-0400 Body temperature 97.2 [degF] [facility] 01-31-2023 07:56-0400 Body weight 127.91 kg [facility] 10-25-2022 10:16-0500 Diastolic blood pressure 84 mm[Hg] Dr. Ginger Lugo Work Phone: 2(541)415-862919 [place] [address] 10-25-2022 10:16-0500 Heart rate 64 /min Dr. Ginger Lugo Work Phone: 0(801)683-070719 [place] [address] 10-25-2022 10:16-0500 Systolic blood pressure 140 mm[Hg] Dr. Ginger Lugo Work Phone: 4(508)660-861634 [place] [address] 10-25-2022 10:03-0500 Body temperature 97.5 [degF] Dr. Ginger Lugo Work Phone: 2(748)505-568834 [place] [address] 10-25-2022 10:03-0500 Respiratory rate 16 /min Dr. Ginger Lugo Work Phone: 2(414)909-045634 [place] [address] 10-25-2022 10:03-0500 SaO2% (BldA) [Mass fraction] 97 % Dr. Ginger Lugo Work Phone: 2(642)448-524034 [place] [address] 10-24-2022 22:44-0500 Inhaled oxygen flow rate 3 L/min Dr. Ginger Lugo Work Phone: 3(465)352-667434 [place] [address] 10-24-2022 14:56-0500 Body height 172.[address] Ginger Lugo Work Phone: [facility] 10-24-2022 14:56-0500 Body mass index (BMI) [Ratio] 44.7 kg/m2 Dr. Ginger Lugo Work Phone: [facility] 10-24-2022 14:56-0500 Body weight 133.[address] Ginger Lugo Work Phone: [facility] 10-13-2022 08:57-0500 Body mass index (BMI) [Ratio] 44.7 kg/m2 Dr. Ginger Lugo Work Phone: [facility] 10-13-2022 08:57-0500 Body weight 133.[address] Ginger Lugo Work Phone: [facility] 10-13-2022 08:57-0500 Diastolic blood pressure 81 mm[Hg] Dr. Ginger Lugo Work Phone: [facility] 10-13-2022 08:57-0500 Heart rate 84 /min Dr. Ginger Lugo Work Phone: [facility] 10-13-2022 08:57-0500 Respiratory rate 16 /min Dr. Ginger Lugo Work Phone: [facility] 10-13-2022 08:57-0500 Systolic blood pressure 149 mm[Hg] Dr. Ginger Lugo Work Phone: [facility] 10-08-2022 09:04-0500 Body height 166.4 cm Ginger Lugo MD Work Phone: [facility] 10-08-2022 09:04-0500 Body weight 133.36 kg Ginger Luog MD Work Phone: [facility] 10-08-2022 09:04-0500 Diastolic blood pressure 90 mm[Hg] Ginger Lugo MD Work Phone: [facility] 10-08-2022 09:04-0500 Heart rate 70 /min Ginger Lugo MD Work Phone: [facility] 10-08-2022 09:04-0500 SaO2% (BldA) [Mass fraction] 95 % Ginger Lugo MD Work Phone: [facility] 10-08-2022 09:04-0500 Systolic blood pressure 136 mm[Hg] Ginger Lugo MD Work Phone: [facility] 10-07-2022 11:43-0500 Diastolic blood pressure 70 mm[Hg] Ginger Lugo Other Phone: [facility] 10-07-2022 11:43-0500 Heart rate 72 /min Ginger Lugo Other Phone: [facility] 10-07-2022 11:43-0500 Respiratory rate 20 /min Ginger Lugo Other Phone: [facility] 10-07-2022 11:43-0500 SaO2% (BldA) [Mass fraction] 98 % Ginger Lugo Other Phone: [facility] 10-07-2022 11:43-0500 Systolic blood pressure 125 mm[Hg] Ginger Lugo Other Phone: [facility] 10-07-2022 08:04-0500 Body height 172.7 cm Ginger Lugo Other Phone: [facility] 10-07-2022 08:04-0500 Body temperature 97.7 [degF] Ginger Lugo Other Phone: [facility] 10-07-2022 08:04-0500 Body weight 127.3 kg Ginger Lugo Other Phone: [facility] 06-27-2022 09:31-0400 Body height 166.4 cm NA Christine PA-C Work Phone: [facility] 06-27-2022 09:31-0400 Body weight 128.37 kg NA Christine PA-C Work Phone: [facility] 06-27-2022 09:31-0400 Diastolic blood pressure 70 mm[Hg] NA Christine PA-C Work Phone: [facility] 06-27-2022 09:31-0400 Heart rate 74 /min NA Christine PA-C Work Phone: [facility] 06-27-2022 09:31-0400 Respiratory rate 18 /min NA Christine PA-C Work Phone: [facility] 06-27-2022 09:31-0400 SaO2% (BldA) [Mass fraction] 94 % NA Christine PA-C Work Phone: [facility] 06-27-2022 09:31-0400 Systolic blood pressure 128 mm[Hg] NA Christine PA-C Work Phone: [facility] 12-09-2021 15:41-0400 Body weight 131.09 kg Ginger Lugo MD Work Phone: [facility] 12-09-2021 15:41-0400 Diastolic blood pressure 96 mm[Hg] Ginger Lugo MD Work Phone: [facility] 12-09-2021 15:41-0400 Heart rate 76 /min Ginger Lugo MD Work Phone: [facility] 12-09-2021 15:41-0400 Respiratory rate 16 /min Ginger Lugo MD Work Phone: [facility] 12-09-2021 15:41-0400 Systolic blood pressure 160 mm[Hg] Ginger Lugo MD Work Phone: [facility] Encounters Encounter Date Encounter Type Care Provider Facility Start: 05-26-2025 End: 05-26-2025 Erroneous Encounter Velia Marshall HEAD OF HISTORY-FUEL INJECTION SERVICER Work Phone: [facility] Comment on above: Arrived Start: 05-26-2025 End: 05-26-2025 ambulatory GINGER LUGO Facility:[facility] Start: 05-21-2025 End: 05-22-2025 Refill Ginger Lugo MD Work Phone: [facility] Comment on above: Refill Request Start: [...] 01-06-2025 ambulatory Rocco Barragan MD Work Phone: [facility] Comment on above: S/P total knee arthr oplasty, left (Primary Dx) Start: 12-30-2024 End: 01-03-2025 ambulatory Rocco Barragan MD Work Phone: [facility] Comment on above: S/P total knee arthr oplasty, left (Primary Dx) Start: 12-28-2024 End: 01-01-2025 ambulatory Rocco Barragan MD Work Phone: [facility] Comment on above: S/P total knee arthr oplasty, left (Primary Dx) Start: 12-26-2024 End: 12-30-2024 ambulatory Rocco Barragan MD Work Phone: [facility] Comment on above: S/P total knee arthr oplasty, left (Primary Dx) Start: 12-13-2024 End: 2024 ambulatory Rocco Barragan MD Work Phone: [facility] Comment on above: S/P total knee arthr oplasty, left (Primary Dx); Loose left total knee arthroplasty (HCC) Start: 11-28-2024 End: 11-28-2024 Transcribe Orders Rocco Barragan MD Work Phone: [facility] Comment on above: Loose left total kne e arthroplasty (HCC) (Primary Dx) Start: 11-07-2024 End: 11-07-2024 ambulatory NUHA A SUPPAN Facility:[facility] Start: 11-07-2024 End: 11-07-2024 Office outpatient visit 15 minutes Nuha A Trishan HEAD OF HISTORY.FUEL INJECTION SERVICER Work Phone: [facility] [place] Comment on above: Hypoglycemia (Primar y Dx); Dizziness Start: 11-06-2024 End: 11-07-2024 Refill Ginger Lugo MD Work Phone: [facility] [place] Comment on above: Refill Request Start: 10-26-2024 End: 10-26-2024 Refill Ginger Lugo MD Work Phone: [facility] [place] Comment on above: Refill Request Start: 10-24-2024 End: 10-24-2024 ambulatory NUHA A ANDERSON [employer] Facility:[facility] Start: 10-24-2024 End: 10-24-2024 Office outpatient visit 15 minutes Nuha Tegan Mosquera HEAD OF HISTORY.FUEL INJECTION SERVICER Work Phone: [facility] Comment on above: Osteoarthritis of le ft knee, unspecified osteoarthritis type (Primary Dx); Controlled type 2 diabetes mellitus without complication, without long-term current use of insulin (HCC) Start: 10-20-2024 End: 10-20-2024 ambulatory Ginger Lugo MD Work Phone: [facility] [place] Comment on above: nick lopes sent dr lugo a message but hes out of office Start: 10-14-2024 End: 10-14-2024 ambulatory Ginger Lugo Facility:[facility] Start: 10-10-2024 End: 10-11-2024 Refill Ginger Lugo MD Work Phone: [facility] [place] Comment on above: Refill Request Start: 10-05-2024 End: 10-12-2024 Telephone encounter Torsten Aviles DO Work Phone: [facility] [place] Comment on above: Forms Start: 10-04-2024 End: 10-04-2024 Patient encounter procedure Ginger Lugo MD Work Phone: [facility] [place] Comment on above: Osteoarthritis of le ft knee, unspecified osteoarthritis type (Primary Dx); Central sleep apnea; Essential hypertension, benign; Hyperlipidemia, unspecified hyperlipidemia type; Status post insertion of drug-eluting stent into left anterior descending (LAD) artery; Coronary artery disease involving [place] coronary artery of [place] heart without angina pectoris; JOSIAH (obstructive sleep apnea); Hypothyroidism, unspecified type; Obesity, Class III, BMI 40-49.9 (morbid obesity) ([facility]); Controlled type 2 diabetes mellitus without complication, without long-term current use of insulin ([facility]) Start: 10-04-2024 End: 10-04-2024 ambulatory [facility] Facility:[facility] Start: 09-22-2024 End: 09-22-2024 Telephone encounter Torsten Aviles Work Phone: Radiology Comment on above: Imaging Start: 09-19-2024 End: 09-19-2024 Office outpatient new 45 minutes Jose Loo MD Work Phone: Orthopaedics Comment on above: Primary osteoarthrit is of left knee (Primary Dx) Start: 09-19-2024 End: 09-19-2024 ambulatory [facility] Facility:[facility] Start: 09-19-2024 End: 09-19-2024 Subsequent hospital visit by physician Xr [facility] Comment on above: Pain in both knees, unspecified chronicity [M25.561, M25.562] Start: 09-15-2024 End: 09-15-2024 Office outpatient visit 15 minutes Nuha Mosquera APRN.CNP Work Phone: [facility] Comment on above: Primary osteoarthrit is of left knee (Primary Dx) Start: 09-15-2024 End: 09-15-2024 Orders Only Jose Loo MD Work Phone: Orthopaedics Comment on above: Pain in both knees, unspecified chronicity (Primary Dx) Orders Start: 09-13-2024 End: 09-13-2024 Emergency department patient visit RIANNA NIDA [facility] Start: 09-09-2024 End: 09-09-2024 Telephone encounter Torsten Aviles DO Work Phone: Orthopaedics Comment on above: Referral Request Start: 08-26-2024 End: 08-26-2024 ambulatory GINGER LUGO Facility:[facility] Start: 08-26-2024 End: 08-26-2024 Patient encounter [...] on above: Results Start: 08-09-2024 End: 08-09-[address] [facility] Giorgio KOWALSKIO Facility:[facility] Start: 08-09-2024 End: 08-09-2024 Patient encounter procedure Ginger Lugo MD Work Phone: [facility] [place] [facility] Comment on above: JOSIAH (obstructive sle ep apnea) (Primary Dx); Encounter for immunization; Hyperlipidemia, unspecified hyperlipidemia type; Essential hypertension, benign; Family history of heart disease; Folate deficiency; Hypothyroidism, unspecified type; Controlled type 2 diabetes mellitus without complication, without long-term current use of insulin (HCC); Screening for colon cancer Start: 08-05-2024 End: 08-16-2024 Telephone encounter Torsten Aviles Work Phone: [facility] Comment on above: Insurance Authorizat ion (Prior Auth Delayed: Additional Info Needed) Start: 08-03-2024 End: 08-03-2024 ambulatory TORSTEN AVILES Facility:[facility] Start: 08-03-2024 End: 08-03-2024 Patient encounter [...] Patient Update Start: 06-29-2024 End: 06-29-2024 ambulatory [facility] Start: 06-24-2024 End: 06-24-2024 Telephone encounter Torsten Aviles DO Work Phone: Orthopaedics Comment on above: FMLA Paperwork Start: 06-17-2024 End: 06-17-2024 ambulatory [facility] Start: 06-16-2024 End: 06-16-2024 Telephone encounter Torsten Aviles DO Work Phone: Orthopaedics Comment on above: Work Excuse Start: 06-15-2024 End: 06-15-2024 ambulatory [facility] Start: 06-09-2024 End: 06-09-2024 ambulatory GINGER ALEGRIA [facility] Start: 05-30-2024 End: 06-01-2024 Telephone encounter [...] Telephone encounter Torsten Aviles DO Work Phone: [facility] Comment on above: Results Start: 05-26-2024 End: 05-26-2024 Subsequent hospital visit by physician [facility] [employer] [address] (Lg Bore/1.5t) Radiology Comment on above: Chronic pain of left knee [M25.562, G89.29] Start: 05-22-2024 End: 05-23-2024 Refill Ginger Lugo MD Work Phone: [facility] [place] Comment on above: Refill Request Start: 05-16-2024 End: 05-17-2024 ambulatory Torsten Aviles V DO Work Phone: [facility] [place] Start: 05-16-2024 End: 05-17-2024 Patient encounter procedure Torsten Aviles DO Work Phone: [facility] [place] Comment on above: Appointment for mri Start: 05-13-2024 End: 05-13-2024 Orders Only Torsten Aviles DO Work Phone: Orthopaedics Comment on above: Chronic pain of left knee (Primary Dx) Start: 05-06-2024 End: 05-06-2024 Patient encounter procedure Torsten Aviles DO Work Phone: [facility] [place] Comment on above: Medial knee pain, le ft (Primary Dx) Start: 05-04-2024 End: 05-04-2024 Orders Only Torsten Aviles DO Work Phone: Orthopaedics Comment on above: Acute pain of left k nee (Primary Dx) Knee pain, unspecifi ed chronicity, unspecified laterality (Primary Dx) Start: 05-02-2024 End: 05-03-2024 Emergency department patient visit [facility] Facility:[facility] Start: 05-02-2024 End: 05-04-2024 ambulatory Torsten Aviles DO Work Phone: [facility] [place] Comment on above: Knee pain Start: 04-14-2024 End: 04-14-2024 Patient encounter procedure Sam Beasley Work Phone: Podiatry Comment on above: Closed non-physeal f racture of phalanx of right great toe, unspecified phalanx, initial encounter (Primary Dx) Start: 04-14-2024 End: 04-14-2024 Subsequent hospital visit by physician Ulysses [facility] [place] Work Phone: Radiology Comment on above: Open wound of toe, i nitial encounter [S91.109A] Start: 04-06-2024 End: 04-06-2024 Patient encounter procedure Torsten Aviles DO Work Phone: [facility] Comment on above: Acute pain of left k nee; Pain of left lower extremity Start: 04-06-2024 Telephone encounter Ginger Lugo MD Work Phone: [facility] Comment on above: Forms (Dwight celeste forms ) Start: 04-04-2024 Telephone encounter Ginger Lugo MD Work Phone: [facility] Comment on above: Results Start: 04-01-2024 Telephone encounter Sam King Work Phone: Podiatry Comment on above: Results Start: 04-01-2024 End: 04-01-2024 Nursing evaluation of patient and report Nurse/Testrastephanie [facility] Work Phone: Podiatry Comment on above: Closed nondisplaced fracture of distal phalanx of right great toe, initial encounter (Primary Dx) Start: 03-30-2024 Telephone encounter Sam King Work Phone: Podiatry Start: 03-29-2024 ambulatory GINGER LUGO [facility] Start: 03-29-2024 End: 03-29-2024 Subsequent hospital visit by physician [facility] Comment on above: Acute pain of left k nee [M25.562] Start: 03-28-2024 End: 03-28-2024 Subsequent hospital visit by physician Xr [facility] [place] Work Phone: Radiology Comment on above: Acute pain of left k nee [M25.562] Start: 03-28-2024 End: 03-28-2024 Subsequent hospital visit by physician Xr [facility] [place] Work Phone: Radiology Comment on above: Ingrowing toenail wi th infection [L60.0] Start: 03-28-2024 End: 03-28-2024 Patient encounter procedure Ginger Lugo MD Work Phone: [facility] Comment on above: Essential hypertensi on, [...] 03-14-2024 ambulatory Ginger Lugo MD Work Phone: [facility] [place] Comment on above: Toe swollen and infe cted Start: 02-10-2024 Refill Ginger Lugo MD Work Phone: [facility] [place] Comment on above: Refill Request Start: 01-29-2024 End: 01-29-2024 ambulatory Nurse Intm/Famp Triage [facility] Work Phone: Nurse Phone Triage Comment on above: Nurse Triage Call; S ore Throat Start: 01-20-2024 Refill Ginger Lugo MD Work Phone: [facility] [place] Comment on above: Refill Request Start: 01-16-2024 End: 01-16-2024 Emergency department patient visit GINGER LUGO [facility] Start: 12-07-2023 Refill Ginger Lugo MD Work Phone: [facility] [place] Comment on above: Refill Request Start: 10-30-2023 End: 10-30-2023 Patient encounter procedure Ginger Lugo MD Work Phone: [facility] [place] Comment on above: C. difficile colitis (Primary Dx) Start: 10-29-2023 End: 10-29-2023 ambulatory ABILIO GONG [facility] Start: 10-29-2023 End: 10-29-2023 Office outpatient new 45 minutes Abilio Gong [facility] Work Phone: [facility] Comment on above: Colitis (Primary Dx) ; Diarrhea, unspecified type Start: 10-27-2023 Refill Ginger Lugo MD Work Phone: [facility] Comment on above: Refill Request Start: 10-26-2023 Telephone encounter Ginger Lugo MD Work Phone: [facility] Comment on above: Results Start: 10-24-2023 End: 10-24-2023 Patient encounter procedure Ginger Lugo MD Work Phone: [facility] Comment on above: C. difficile colitis (Primary Dx) Start: 10-21-2023 ambulatory Nuha A S uppan HEAD OF HISTORY.CIA AGENT Work Phone: [facility] Comment on above: Stomach pains and di aherria Diarrhea; Abdominal Pain Start: 10-21-2023 Telephone encounter Ginger Lugo MD Work Phone: [facility] Comment on above: Results Start: 10-16-2023 End: 10-16-2023 Office outpatient visit 25 minutes Nuha Mosquera HEAD OF HISTORY.CIA AGENT Work Phone: [facility] Comment on above: Chest pain, unspecif ied type (Primary Dx); C. difficile colitis Start: 10-09-2023 Non-patient / Non-visit Dr. Tomás Lugo Work Phone: [facility] Work Phone: Start: 10-08-2023 Non-patient / Non-visit Dr. Tomás Lugo Work Phone: [facility] Start: 10-08-2023 Telephone encounter Ginger Lugo MD Work Phone: [facility] Comment on above: Results Start: 10-08-2023 Non-patient / Non-visit Dr. Tomás Lugo Work Phone: [facility] Work Phone: Start: 10-07-2023 Non-patient / Non-visit Dr. Tomás Lugo Work Phone: [facility] Start: 10-07-2023 End: 10-09-2023 Evaluation and management of inpatient [facility] Work Phone: Start: 10-07-2023 End: 10-09-[address] Ginger Lugo Work Phone: [facility] Work Phone: Start: 10-02-2023 Telephone encounter Ginger Lugo MD Work Phone: [facility] Start: 09-23-2023 End: 09-23-2023 Emergency department patient visit GINGER LUGO [facility] Start: 09-23-2023 End: 09-23-2023 Subsequent hospital visit by physician Irving Hudsonv1 [employer] [facility] Comment on above: Arrived Start: 09-22-2023 End: 09-22-2023 Emergency department patient visit Ismael Durham DO Work Phone: [facility] Comment on above: Hyperglycemia (Prima ry Dx); Abdominal pain, unspecified abdominal location; Lactic acidosis Start: 07-20-2023 Refill [place] Son on PA-C Work Phone: [facility] Comment on above: Refill Request Start: 07-03-2023 Refill Ginger Lugo MD Work Phone: [facility] Comment on above: Refill Request Start: 05-06-2023 ambulatory LEBRON CROSS Facility:[id number] Start: 04-22-2023 ambulatory LEBRON CROSS Facility:[id number] Start: 04-22-2023 FUV, Provider: Lebron Cross II, Status: Markie, Time: 3:45 PM Ginger Lugo Work Phone: [facility]Ksh[facility]Pgvpz[facility] Work Phone: Start: 04-22-2023 Office outpatient vi sit 15 minutes Ginger uLgo Work Phone: FL-Rwybqbo-Jsarltg Work Phone: Start: 04-20-2023 AUDIT Ginger Lugo Work Phone: LK-Pndhash-Qwjvwur Work Phone: Start: 08-10-2023 Office outpatient ne w 45 minutes Ginger Lugo Work Phone: [facility]Nnrmipb-Mavasbmt [facility] 232 DO Work Phone: Start: 04-16-2023 ambulatory LEBRON CROSS Facility:[id number] Start: 03-30-2023 End: 03-30-2023 Patient encounter procedure Ginger Lugo MD Work Phone: [facility] Comment on above: Sepsis due to [...] Facility:[id number] Start: 03-23-[address] Ginger sanches [place] Facility:[id number] Start: 03-22-2023 Non-patient / Non-visit Dr. Tomás Lugo Work Phone: [facility] Work Phone: Start: 03-21-2023 Non-patient / Non-visit Dr. Tomás Lugo Work Phone: [facility] Work Phone: Start: 03-20-2023 Non-patient / Non-visit Dr. Tomás Lugo Work Phone: [facility] Work Phone: Start: 03-19-2023 Non-patient / Non-visit Dr. Tomás Lugo Work Phone: [facility] Work Phone: Start: 03-18-2023 End: 03-22-2023 Evaluation and management of inpatient [facility] Work Phone: Start: 03-17-2023 Telephone encounter Ginger Lugo MD Work Phone: [facility] Comment on above: Appointment Start: 03-04-2023 End: 03-05-2023 Emergency department patient visit [facility] Work Phone: Start: 01-31-2023 End: 01-31-2023 Emergency department patient visit [facility] Work Phone: Start: 11-22-2022 Refill [place] Son on PA-C Work Phone: [facility] Comment on above: Refill Request Start: 11-17-2022 ambulatory Ginger Lugo MD Work Phone: 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 Comment on above: Refill Request Start: 10-30-2022 Telephone encounter Ginger Lugo MD Work Phone: [facility] Comment on above: Letter (letter with dates on return to work with no restrictions needs to be on it./) Start: 10-25-2022 Non-patient / Non-visit Dr. Tomás Lugo Work Phone: [facility] Start: 10-24-2022 End: 10-25-2022 Evaluation and management of inpatient Dr. Ginger Lugo Work Phone: [facility] Start: 10-24-2022 End: 10-25-[address] Ginger Lugo Work Phone: [facility] Work Phone: Start: 10-22-2022 End: 10-22-[address] Ginger Lugo Work Phone: [facility] Work Phone: Start: 10-22-2022 End: 10-22-[address] Ginger Lugo Work Phone: [facility] Start: 10-22-2022 Non-patient / Non-visit Dr. Tomás Lugo Work Phone: [facility] Start: 10-13-2022 End: 10-13-[address] Ginger Lugo Work Phone: [facility] Start: 10-09-2022 Non-patient / Non-visit Dr. Tomás Lugo Work Phone: [facility] Start: 10-08-2022 End: 10-08-2022 Patient encounter procedure Ginger Lugo MD Work Phone: [facility] Comment on above: Chest pain, unspecif ied type (Primary Dx); Essential hypertension, benign; Controlled type 2 diabetes mellitus without complication, without long-term current use of insulin (HCC); Hypothyroidism, acquired; Syncope, unspecified syncope type; Family history of heart disease Start: 10-07-2022 End: 10-07-2022 Emergency department patient visit Beau Dumont [facility] Emergency 13 Start: 10-06-2022 Nate ahuja PA-C Work Phone: [facility] Comment on above: Refill Request Start: 08-28-2022 End: 08-28-2022 ambulatory [place] Christine PA-C Work Phone: [facility] Comment on above: Acute upper respirat ory infection (Primary Dx) Start: 08-28-2022 End: 08-28-2022 Telemedicine consultation with patient [place] Christine PA-C Work Phone: [facility] [place] Start: 07-07-2022 ambulatory [place] ahuja PA-C Work Phone: [facility] Comment on above: Labs Start: 06-27-2022 End: 06-27-2022 Patient encounter procedure [place] Christine PA-C Work Phone: [facility] [place] Comment on above: Wellness examination [...] encounter status [place] Christine PA-C Work Phone: [facility] [place] Start: 06-17-2022 End: 06-17-2022 Patient encounter procedure [place] Christine PA-C Work Phone: [facility] [place] Comment on above: Wellness examination [...] status M Farhat Christine PA-C Work Phone: [facility] [place] Start: 06-12-2022 Refill Ginger Lugo MD Work Phone: [facility] Comment on above: Refill Request Orders (C-Pap suppli es: chin strap and mask) Start: 05-15-2022 Patient encounter procedure Sabine Garza OTR/L Work Phone: [facility] Work Phone: Start: 04-23-2022 ambulatory Provider Pending Facili ty:[id number] Start: 04-23-2022 [id number], Provider : Elvira aMrtin, Status: Pen, Time: 8:00 AM Elvira Martin OTR/L Work Phone: [facility] Work Phone: Start: 04-22-2022 Patient encounter procedure Elvira Martin OTR/L Work Phone: [facility] Work Phone: Start: 04-22-2022 ambulatory Provider Pending Facili ty:[id number] Start: 04-17-2022 ambulatory Provider Pending Facili ty:[id number] Start: 04-17-2022 Patient encounter procedure Sabine Garza OTR/L Work Phone: [facility] Work Phone: Start: 04-14-2022 Patient encounter procedure Marielos Law CARROLL/L Work Phone: [facility] Work Phone: Start: 04-14-2022 ambulatory Provider Pending Facili ty:[id number] Start: 04-08-2022 ambulatory Provider Pending Facili ty:[id number] Start: 04-08-2022 Patient encounter procedure Sabine Garza OTR/L Work Phone: [facility] Work Phone: Start: 04-08-2022 End: 04-12-2022 ambulatory REGGIE BRAR [facility] Start: 04-03-2022 Patient encounter procedure Marielos CARROLL/Dolores Work Phone: [facility] Work Phone: Start: 04-03-2022 ambulatory Provider Pending Facili ty:[id number] Start: 03-31-2022 Patient encounter procedure Marielos CARROLL/Dolores Work Phone: [facility] Work Phone: Start: 02-13-2022 End: 02-17-2022 [facility] Start: 02-06-2022 End: 02-10-2022 [facility] Start: 01-30-2022 End: 02-03-2022 ambulatory REGGIE BRAR [facility] Start: 01-27-2022 Telephone encounter Ginger Lugo MD Work Phone: [facility] [place] [facility] Comment on above: Future Appointment ( ER/WC) Start: 12-16-2021 ambulatory Ginger Lugo MD Work Phone: [facility] Comment on above: Work release Start: 12-10-2021 Telephone encounter Ginger Lugo MD Work Phone: [facility] [place] Comment on above: Results Start: 12-09-2021 ambulatory [place] ahuja PA-C Work Phone: [facility] [place] Start: 12-09-2021 End: 12-09-2021 Patient encounter procedure [place] Christine PA-C Work Phone: [facility] Comment on above: Appointment for guerrero rrow Prepatellar bursitis of right knee (Primary Dx); Hypothyroidism, unspecified type; Controlled type 2 diabetes mellitus without complication, without long-term current use of insulin (HCC); Hyperlipidemia, unspecified hyperlipidemia type; Essential hypertension, benign Start: 12-08-2021 ambulatory [place] ahuja PA-C Work Phone: [facility] Comment on above: Knee problem Start: 12-03-2021 Telephone encounter [place] Dougherty Emmett VALENTIN-Davide Work Phone: [facility] Comment on above: Opened In Error Start: 12-03-2021 End: 12-03-2021 Subsequent hospital visit by physician Xr [facility] [place] Work Phone: Radiology Comment on above: Chronic left shoulde r pain [M25.512, G89.29] Start: 11-29-2021 Refill Ginger Lugo MD Work Phone: [facility] Comment on above: Refill Request Start: 10-16-2020 End: 10-16-2020 Subsequent hospital visit by physician Xr [facility] Work Phone: Radiology Comment on above: Suspected COVID-19 v irus infection [Z20.822] Start: 05-03-2018 End: 05-03-2018 Patient encounter Ellie Hernandez Facility:[facility] Start: 04-23-2018 Patient encounter Ellie Luis Antonio cates Facility:[facility] Start: 04-23-2018 End: 04-23-2018 Patient encounter Ellie Luis Antonio Hernandez Work Phone: [facility] Start: 01-02-2009 End: 12-14-2013 Patient encounter status Ginger Lugo MD Work Phone: [facility] Procedures Date Procedure Procedure Detail Performing [...] [Units/volume] in Serum or Plasma Velia Marshall HEAD OF HISTORY-FUEL INJECTION SERVICER Work Phone: Start: 03-29-2024 Dup-scan xtr veins [...] lds trcg only w/o i&r Ximenaponcho Crespoderback HEAD OF HISTORY-FUEL INJECTION SERVICER Work Phone: Start: 09-22-2023 End: 09-22-2023 Assay of lactate Ximena C Bilderback HEAD OF HISTORY-FUEL INJECTION SERVICER Work Phone: Start: 09-22-2023 End: 09-22-2023 Assay of lactate Ximena C Bilderback HEAD OF HISTORY-FUEL INJECTION SERVICER Work Phone: Start: 09-22-2023 Urnls dip stick/tablet rgnt auto w/o microscopy Ximena C Bilderback HEAD OF HISTORY-FUEL INJECTION SERVICER Work Phone: Start: 09-22-2023 Ct abdomen & pelvis w/contrast material Ximena C Bilderback HEAD OF HISTORY-FUEL INJECTION SERVICER Work Phone: Start: 09-22-2023 Troponin I.cardiac panel - Serum or Plasma by High sensitivity method Ismael Durham DO Work Phone: Start: 09-22-2023 End: 09-22-2023 Comprehensive metabolic panel Ximena Augustine Michelle HEAD OF HISTORY-FUEL INJECTION SERVICER Work Phone: Start: 09-22-2023 Gases blood ph direct talita xcpt pulse oximitry Ximena Augustine Michelle HEAD OF HISTORY-FUEL INJECTION SERVICER Work Phone: Start: 09-22-2023 Glucose quantitative blood [...] Radiologic exam chest 2 views Jorge Patricia HEAD OF HISTORY.FUEL INJECTION SERVICER Work Phone: Coronary artery bypa ss graft [...] DTaP/Tdap/Td Vaccines (3 - Td or Tdap) [facility] Start: 06-27-2032 Tetanus vaccination Tetanus: Every 1 0yrs [facility] Start: 06-27-2032 Urine microalbumin profile [facility] Start: 08-25-2027 Screening for malign ant neoplasm of colon [facility] Start: 08-09-2027 Diabetes mellitus screening Diabetes Screening [facility] Start: 09-22-2026 Diabetes mellitus screening Diabetes Screening [facility] Start: 06-10-2026 TWO PNEUMOVAX 5 YEAR S APART PRIOR TO AGE 65 (#2) TWO PNEUMOVAX 5 YEARS APART PRIOR TO AGE 65 (#2) [facility] Start: 11-07-2025 Annual PCP Team Diet Clerk manisha Disease Visit Annual PCP Team Chronic Disease Visit [facility] Start: 10-24-2025 Annual PCP Team Diet Clerk manisha Disease Visit Annual PCP Team Chronic Disease Visit [facility] Start: 10-04-2025 Annual PCP Team Diet Clerk manisha Disease Visit Annual PCP Team Chronic Disease Visit [facility] Start: 10-04-2025 BP Controlled (<130/80) BP Controlle d (<130/80) [facility] Start: 10-04-2025 Pneumococcal Vaccine : 50+ (2 of 2 - PCV) Pneumococcal Vaccine: 50+ (2 of 2 - PCV) [facility] Comment on above: Postponed from 06/27 (Declined at this time) Start: 09-15-2025 Annual PCP Team Diet Clerk manisha Disease Visit Annual PCP Team Chronic Disease Visit [facility] Start: 08-09-2025 Annual PCP Team Diet Clerk manisha Disease Visit Annual PCP Team Chronic Disease Visit [facility] Start: 08-09-2025 Covid-19 Vaccine ( season) Covid-19 Vaccine () [facility] Comment on above: Postponed from 05/08 (Declined at this time) Start: 08-09-2025 Shingrix Vaccine (2 of 2) Shingrix Vaccine (2 of 2) [facility] Comment on above: Postponed from 08/22 (Declined at this time) Start: 05-26-2025 End: 05-26-2025 Patient encounter procedure 05/26/2025 3:00 PM EDT Office Visit [facility] [place] [address] [place] [address] Torsten Aviles V, DO [address] [place], [place] [id number] LM to update insurance [facility] [place] Comment on above: LM to update insuran ce Start: 05-08-2025 COVID-19 Vaccine ( season) COVID-19 Vaccine () [facility] Start: 05-08-2025 Influenza vaccination Influenza Vacc ine (#1) [facility] Start: 05-04-2025 Annual PCP Team Diet Clerk manisha Disease Visit Annual PCP Team Chronic Disease Visit [facility] Start: 04-01-2025 Hepatitis B screening Urine Albumin:Creatinine Ratio [facility] Start: 04-01-2025 Hepatitis B surface antibody level LDL Cholesterol [facility] Start: 04-01-2025 Thyroid stimulating hormone measurement TSH Level [facility] Start: 03-28-2025 Annual PCP Team Diet Clerk manisha Disease Visit Annual PCP Team Chronic Disease Visit [facility] Start: 03-28-2025 Covid-19 Vaccine ( season) Covid-19 Vaccine ( season) [facility] Comment on above: Postponed from 05/08 (Declined at this time) Start: 03-28-2025 Diabetic foot examination Diabetic Foot Exam [facility] Start: 03-28-2025 Hepatitis B Vaccine (1 of 3 - 19+ 3-dose series) Hepatitis B Vaccine (1 of 3 - 19+ 3-dose series) [facility] Comment on above: Postponed from 12/17 (Declined at this time) Start: 03-28-2025 Pneumococcal vaccination Pneum ococcal Vaccine (2 of 2 - PCV) [facility] Comment on above: Postponed from 06/27 (Declined at this time) Start: 02-08-2025 End: 02-08-2025 Patient encounter procedure 02/08/2025 10:00 AM EDT Office Visit [facility] [address] [place] [address] Ginger Lugo MD [address] [place] [address] 6 month follow up [facility] Comment on above: 6 month follow up Start: 02-07-2025 Hemoglobin A1c measurement [facility] Start: 01-06-2025 End: 01-06-2025 ambulatory 01/06/2025 10:45 AM EDT Treatment [facility] [address] [place] [address] Rocco Barragan MD [address] [place] [address] Teja Lopez PTA [facility] Start: 01-04-2025 End: 01-04-2025 ambulatory 01/04/2025 10:45 AM EDT Treatment [facility] [address] [place] [address] Rocco Barragan MD [address] [place] [address] Aly Winchester, PT [facility] Start: 01-02-2025 End: 01-02-2025 ambulatory 01/02/2025 10:45 AM EDT Treatment [facility] [address] [place] [address] Rocco Barragan MD [address] [place] [address] Aly Winchester, PT [facility] Start: 12-30-2024 End: 12-30-2024 ambulatory [facility] Start: 12-28-2024 End: 12-28-2024 ambulatory [facility] Start: 12-26-2024 End: 12-26-2024 ambulatory 12/26/2024 10:45 AM EDT Treatment [facility] [address] [place] [address] Rocco Barragan MD [address] [place] [address] Teja Lopez MACHINE MAINTENANCE SERVICER [facility] Start: 12-23-2024 End: 12-23-2024 ambulatory 12/23/2024 11:30 AM EDT Treatment [facility] [address] [place] [address] Rocco Barragan MD [address] [place] [address] Joana Powers MACHINE MAINTENANCE SERVICER [facility] Start: 12-21-2024 End: 12-21-2024 ambulatory 12/21/2024 10:45 AM EDT Treatment [facility] [address] [place] [address] Rocco Barragan MD [address] [place] [address] Teja Lopez PTA [facility] Start: 12-19-2024 End: 12-19-2024 ambulatory 12/19/2024 10:45 AM EDT Treatment [facility] [address] [place] [address] Rocco Barragan MD [address] [place] [address] Teja Lopez, YAAKOV Discharge Disposition: Home [facility] Start: 12-15-2024 End: 12-15-2024 ambulatory 12/15/2024 10:45 AM EDT Treatment [facility] [address] [place] [id number] Rocco Barragan MD [address] [place] [address] Aly Winchester, PT Discharge Disposition: Home [facility] Start: 11-30-2024 End: 11-30-2024 Patient encounter procedure 11/30/2024 9:00 AM EDT Office Visit Orthopaedics [address] [address] Jose Loo MD [address] [place] [address] 2-3 month follow up - Lft Knee Orthopaedics Comment on above: 2-3 month follow up - Lft Knee Start: 11-29-2024 End: 11-29-2024 Patient encounter procedure 11/29/2024 2:20 PM EDT Office Visit [facility] [place] [address] [place] [id number] Ginger Lugo MD [address] [place] [address] follow up. Knee replacement surgery [facility] [place] Comment on above: follow up. Knee repl acement surgery Start: 11-08-2024 End: 02-07-2025 Hemoglobin A1c in Blood HEMOGLOBIN A1C Lab Routine Controlled type 2 diabetes mellitus without complication, without long-term current use of insulin (HCC) Expected: 11/08/2024, Expires: 02/07/2025 [facility] Work Phone: Comment on above: Expected: 11/08/2024 , Expires: 02/07/2025 Start: 11-07-2024 End: 11-07-2024 Follow-up encounter 11/07/2024 11:20 AM EST [facility] [place] [address] [facility] [place] [address] Nuha Mosquera APRN.FUEL INJECTION SERVICER [address] [facility] [place] [id number] 2 week dizziness follow up [facility] [place] Comment on above: 2 week dizziness fol low up Start: 10-30-2024 Annual PCP Team Diet Clerk manisha Disease Visit Annual PCP Team Chronic Disease Visit [facility] Start: 10-24-2024 Annual PCP Team Diet Clerk manisha Disease Visit Annual PCP Team Chronic Disease Visit [facility] Start: 10-24-2024 BP Controlled (<130/80) BP Controlle d (<130/80) [facility] Start: 10-24-2024 End: 10-24-2024 ambulatory 10/24/2024 9:40 AM EST [facility] [address] [facility] [place] [address] Nuha Mosquera APRN.FUEL INJECTION SERVICER [address] [facility] [place] [address] dizziness and bloodsugar dropping [facility] [place] Comment on above: dizziness and bloods ugar dropping Start: 10-07-2024 Annual PCP Team Diet Clerk manisha Disease Visit Annual PCP Team Chronic Disease Visit [facility] Start: 10-02-2024 Hemoglobin A1c measurement HbA1C [facility] Start: 09-30-2024 End: 09-30-2024 Patient encounter procedure 09/30/2024 9:40 AM EST Office Visit Family [facility] [place] [address] [facility] [place] [address] Ginger Lugo MD [address] [facility] [place] [address] 6 mo f/u [facility] [place] Comment on above: 6 mo f/u Start: 09-19-2024 End: 09-19-2024 Patient encounter procedure Radiology Comment on above: L knee & leg length. Lft Knee Replmnt Con sul Epic Images Start: 09-10-2024 End: 12-10-2024 CBC panel - Blood by Automated count COMPLETE BLOOD COUNT Lab Routine Leukocytosis, unspecified type Expected: 09/10/2024, Expires: 12/10/2024 [facility] Comment on above: Expected: 09/10/2024 , Expires: 12/10/2024 Start: 08-26-2024 End: 08-26-2024 Patient encounter procedure 08/26/2024 3:30 PM EST Office Visit Family [facility] [address] [place] [address] Torsten Aviles V, DO [address] [place] [address] Durolane injection left knee - authorized [facility] [place] Comment on above: Durolane injection l eft knee - authorized Start: 08-09-2024 End: 11-08-2024 Hemoglobin A1c in Blood [facility] Work Phone: Comment on above: Expected: 08/09/2024 , Expires: 11/08/2024 Start: 08-03-2024 End: 08-03-2024 Patient encounter procedure 08/03/2024 2:30 PM EST Office Visit [facility] [address] [place] [address] Torsten Aviles V, DO [address] [place] [address] continued left knee pain [facility] [place] Comment on above: continued left knee pain Start: 06-06-2024 Urine screening for protein eGFR Diabetes [facility] Start: 05-26-2024 End: 05-26-2024 Patient encounter procedure 05/26/2024 8:00 AM EDT Appointment Radiology [address] [place], [place] [id number] Chronic pain of left knee [M25.562, G89.29] Radiology Comment on above: Chronic pain of left knee [M25.562, G89.29] Start: 05-08-2024 Covid-19 Vaccine () Covid-19 Vaccine () [facility] Start: 05-08-2024 Covid-19 Vaccine ( season) Covid-19 Vaccine ( season) [facility] Start: 05-08-2024 Influenza vaccination Influenza Vacc ine (#1) [facility] Start: 05-06-2024 End: 05-06-2024 Patient encounter procedure 05/06/2024 2:30 PM EDT Office Visit [facility] [address] [place] [facility] [address] Torsten Aviles V, DO [address] [facility] [place] [address] left knee pain f/u [facility] Comment on above: left knee pain f/u Start: 04-16-2024 Prostate specific antigen measurement PSA Prostate Cancer Screening [facility] Start: 04-14-2024 End: 04-14-2024 Patient encounter procedure 04/14/2024 11:45 AM EDT Office Visit Podiatry [address] [place] [facility] [address] Sam Beasley [address] [place] [facility] [place] [address] 2 week follow up ingrown R great toe Podiatry Comment on above: 2 week follow up deanne ching R great toe Start: 04-06-2024 End: 04-06-[address] [facility] Comment on above: Acute pain of left k nee [M25.562]; Pain of left lower extremity [M79.605] Start: 04-04-2024 End: 07-04-2024 CBC W Auto Differential panel - Blood COMPLETE BLOOD COUNT AND DIFFERENTIAL Lab Routine Folate deficiency Expected: 04/04/2024, Expires: 07/04/2024 [facility] Comment on above: Expected: 04/04/2024 , Expires: 07/04/2024 Start: 04-04-2024 End: 07-04-2024 Folate [Mass/volume] in Serum or Plasma FOLATE, SERUM Lab Routine Folate deficiency Expected: 04/04/2024, Expires: 07/04/2024 [facility] Work Phone: Comment on above: Expected: 04/04/2024 , Expires: 07/04/2024 Start: 04-04-2024 End: 04-04-2024 Patient encounter procedure General Surgery Comment on above: Screening for colon cancer [Z12.11] Screening for colon cancer Start: 03-30-2024 ANNUAL PCP TEAM CASE PREPARER AND LINER MANISHA DISEASE VISIT ANNUAL PCP TEAM CHRONIC DISEASE VISIT [facility] Start: 03-29-2024 End: 03-29-2024 Patient encounter procedure 03/29/2024 4:00 PM EDT Appointment [facility] [address] [place] [address] Acute pain of left knee [M25.562]; Edema [...] of insulin (HCC) Expected: 03/28/2024, Expires: 06/27/2024 [facility] Comment on above: Expected: 03/28/2024 , Expires: 06/27/2024 Start: 03-28-2024 End: 06-27-2024 Comprehensive metabolic 2000 panel - Serum or Plasma COMPREHENSIVE METABOLIC PANEL Lab Routine Controlled type 2 diabetes mellitus without complication, without long-term current use of insulin (HCC) Expected: 03/28/2024, Expires: 06/27/2024 [facility] Comment on above: Expected: 03/28/2024 , Expires: 06/27/2024 Start: 03-28-2024 End: 06-27-2024 Hemoglobin A1c in Blood HEMOGLOBIN A1C Lab Routine Controlled type 2 diabetes mellitus without complication, without long-term current use of insulin (HCC) Expected: 03/28/2024, Expires: 06/27/2024 [facility] Comment on above: Expected: 03/28/2024 , Expires: 06/27/2024 Start: 03-28-2024 End: 06-27-2024 Lipid 1996 panel - Serum or Plasma LIPID PANEL BASIC Lab Routine Controlled type 2 diabetes mellitus without complication, without long-term current use of insulin (HCC) Expected: 03/28/2024, Expires: 06/27/2024 [facility] Comment on above: Expected: 03/28/2024 , Expires: 06/27/2024 Start: 03-28-2024 End: 06-27-2024 Microalbumin/Creatinine [Mass Ratio] in Urine ALBUMIN/CREATININE RATIO, URINE Lab Routine Controlled type 2 diabetes mellitus without complication, without long-term current use of insulin (HCC) Expected: 03/28/2024, Expires: 06/27/2024 [facility] Comment on above: Expected: 03/28/2024 , Expires: 06/27/2024 Start: 03-28-2024 End: 06-27-2024 PSA/PROSTATE SPECIFIC ANTIGEN SCREENING PSA/PROSTATE SPECIFIC ANTIGEN SCREENING Lab Routine Screening for prostate cancer Expected: 03/28/2024, Expires: 06/27/2024 [facility] Comment on above: Expected: 03/28/2024 , Expires: 06/27/2024 Start: 03-28-2024 End: 06-27-2024 Thyrotropin [Units/volume] in Serum or Plasma THYROID STIMULATING HORMONE Lab Routine Hypothyroidism, unspecified type Expected: 03/28/2024, Expires: 06/27/2024 [facility] Work Phone: Comment on above: Expected: 03/28/2024 , Expires: 06/27/2024 Start: 03-28-2024 End: 03-28-2024 Patient encounter procedure 03/28/2024 9:00 AM EDT Office Visit Podiatry [address] [place] [id number] Sam Beasley [address] [place] [id number] right foot ingrown toenail Podiatry Comment on above: right foot ingrown t oenail Start: 03-25-2024 Hemoglobin A1c measurement A1C [facility] Start: 03-17-2024 ANNUAL PCP TEAM CASE PREPARER AND LINER MANISHA DISEASE VISIT ANNUAL PCP TEAM CHRONIC DISEASE VISIT [facility] Start: 01-23-2024 Hepatitis B surface antibody level LDL CHOLESTEROL [facility] Start: 12-25-2023 Hemoglobin A1c measurement HbA1C [facility] Start: 11-30-2023 End: 11-30-2023 Admission to same day surgery center 11/30/2023 9:50 AM EDT - 11/30/2023 10:20 AM EDT [facility] [address] [place] [id number] Alexander Navarro MD [address] [place] [address] [facility] Comment on above: COLONOSCOPY Start: 11-30-2023 End: 11-30-2023 Colonoscopy COLONOSCOPY Colitis 11/30/2023 9:50 AM EDT [facility] Start: 11-30-2023 Subsequent hospital visit by physician 11/30/2023 9:50 AM EDT Hospital En[facility] [address] [place] [address] Alexander Navarro MD [address] [place] [address] [facility] Start: 10-30-2023 ANNUAL PCP TEAM CASE PREPARER AND LINER MANISHA DISEASE VISIT ANNUAL PCP TEAM CHRONIC DISEASE VISIT [facility] Start: 10-26-2023 End: 10-26-2024 CBC W Auto Differential panel - Blood CBC + DIFF Lab Routine Anemia, unspecified type Expected: 10/26/2023, Expires: 10/26/2024 [facility] Work Phone: Comment on above: Expected: 10/26/2023 , Expires: 10/26/2024 Start: 10-26-2023 End: 10-26-2024 Cobalamin (Vitamin B12) [Mass/volume] in Serum or Plasma VITAMIN B12 BLOOD Lab Routine Anemia, unspecified type Expected: 10/26/2023, Expires: 10/26/2024 [facility] Work Phone: Comment on above: Expected: 10/26/2023 , Expires: 10/26/2024 Start: 10-26-2023 End: 10-26-2024 Ferritin [Mass/volume] in Serum or Plasma FERRITIN BLD Lab Routine Anemia, unspecified type Expected: 10/26/2023, Expires: 10/26/2024 [facility] Work Phone: Comment on above: Expected: 10/26/2023 , Expires: 10/26/2024 Start: 10-26-2023 End: 10-26-2024 Folate [Mass/volume] in Serum or Plasma FOLATE SERUM Lab Routine Anemia, unspecified type Expected: 10/26/2023, Expires: 10/26/2024 [facility] Work Phone: Comment on above: Expected: 10/26/2023 , Expires: 10/26/2024 Start: 10-26-2023 End: 10-26-2024 Iron and Iron binding capacity panel - Serum or Plasma IRON + TIBC Lab Routine Anemia, unspecified type Expected: 10/26/2023, Expires: 10/26/2024 [facility] Work Phone: Comment on above: Expected: 10/26/2023 , Expires: 10/26/2024 Start: 10-24-2023 End: 01-23-2024 Basic metabolic 2000 panel - Serum or Plasma BASIC METABOLIC PNL Lab Routine C. difficile colitis Expected: 10/24/2023, Expires: 01/23/2024 [facility] Work Phone: Comment on above: Expected: 10/24/2023 , Expires: 01/23/2024 Start: 10-24-2023 End: 01-23-2024 CBC W Auto Differential panel - Blood CBC + DIFF Lab Routine C. difficile colitis Expected: 10/24/2023, Expires: 01/23/2024 [facility] Work Phone: Comment on above: Expected: 10/24/2023 , Expires: 01/23/2024 Start: 10-09-2023 [facility] Start: 10-09-2023 Oxygen therapy [facility] Start: 10-08-2023 ANNUAL PCP TEAM CASE PREPARER AND LINER MANISHA DISEASE VISIT ANNUAL PCP TEAM CHRONIC DISEASE VISIT [facility] Start: 10-08-2023 Enteric precautions [facility] Start: 10-07-2023 [facility] Start: 10-07-2023 Following clinical pathway protocol [facility] Start: 10-07-2023 Ambulation without limitation [facility] Start: 10-07-2023 Assessment of risk o f venous thromboembolism [facility] Start: 10-07-2023 Care regimes management [facility] Start: 10-07-2023 Catheterization of vein [facility] Start: 10-07-2023 Insertion of cathete r into peripheral vein [facility] Start: 10-07-2023 Measuring intake and output [facility] Start: 10-07-2023 Notification of physician [facility] Start: 10-07-2023 Providing care accor ding to standard [facility] Start: 10-07-2023 Referral to design painter [facility] Start: 10-07-2023 [facility] Start: 10-07-2023 Troponin I measurement [facility] Start: 10-07-2023 Verification routine [facility] Start: 10-07-2023 Admission procedure [facility] Start: 10-07-2023 Hospital admission, emergency, from emergency room, medical nature [facility] Start: 08-28-2023 ANNUAL PCP TEAM CASE PREPARER AND LINER MANISHA DISEASE VISIT ANNUAL PCP TEAM CHRONIC DISEASE VISIT [facility] Start: 07-25-2023 Hemoglobin A1c/Hemoglobin.total in Blood HBA1C [facility] Start: 06-27-2023 3 comp foot exam completed DIABETIC FOOT EXAM [facility] Start: 06-27-2023 ANNUAL PCP TEAM CASE PREPARER AND LINER MANISHA DISEASE VISIT ANNUAL PCP TEAM CHRONIC DISEASE VISIT [facility] Start: 06-27-2023 BP CONTROLLED (<130/80) BP CONTROLLE D (<130/80) [facility] Start: 06-27-2023 COVID-19 VACCINE (#1) COVID-19 VACCI NE (#1) [facility] Comment on above: Postponed from 06/18 (Declined at this time) Start: 06-27-2023 Diabetic foot examination Diabetic Foot Exam [facility] Start: 06-27-2023 HEPATITIS B (1 of 3 - 3-dose series) HEPATITIS B (1 of 3 - 3-dose series) [facility] Comment on above: Postponed from 12/17 (Declined at this time) Start: 06-27-2023 Hepatitis B screening URINE ALBUMIN:CREATININE RATIO [facility] Start: 06-27-2023 Hepatitis B surface antibody level LDL CHOLESTEROL [facility] Start: 06-27-2023 PNEUMOCOCCAL (2 - PCV) PNEUMOCOCCAL (2 - PCV) [facility] Start: 06-27-2023 Pneumococcal vaccination [facility] Start: 06-27-2023 Pneumococcal Vaccine : 50+ (2 of 2 - PCV) Pneumococcal Vaccine: 50+ (2 of 2 - PCV) [facility] Start: 06-27-2023 Pneumococcal Vaccine : Age 50+ (2 of 2 - PCV) Pneumococcal Vaccine: Age 50+ (2 of 2 - PCV) [facility] Start: 06-17-2023 ANNUAL PCP TEAM CASE PREPARER AND LINER MANISHA DISEASE VISIT ANNUAL PCP TEAM CHRONIC DISEASE VISIT [facility] Start: 05-08-2023 COVID-19 Vaccine ( season) COVID-19 Vaccine ( season) [facility] Start: 05-08-2023 Influenza vaccination [facility] Start: 04-27-2023 FUV, Provider: Lebron Cross II, Status: Pen, Time: 8:00 AM FUV, Provider: Lebron Cross II, Status: Pen, Time: 8:00 AM [id number] Work Phone: Start: 04-22-2023 FUV, Provider: Lebron Cross II, Status: Pen, Time: 3:45 PM FUV, Provider: Lebron Cross II, Status: Pen, Time: 3:45 PM [id number] DO Work Phone: Start: 04-07-2023 Hemoglobin A1c/Hemoglobin.total in Blood HBA1C [facility] Start: 03-22-2023 Patient discharge [facility] Start: 03-20-2023 Consultation [facility] Start: 03-18-2023 Dual pressure spontaneous ventilation support [facility] Start: 03-18-2023 Consultation [facility] Start: 03-18-2023 Bacteria identified in Blood by Culture Blood Culture [facility] Start: 03-18-2023 Following clinical pathway protocol [facility] Start: 03-18-2023 Assessment of risk o f venous thromboembolism [facility] Start: 03-18-2023 Care regimes management [facility] Start: 03-18-2023 Fall prevention [facility] Start: 03-18-2023 Inhalation therapy procedure [facility] Start: 03-18-2023 Insertion of cathete r into peripheral vein [facility] Start: 03-18-2023 Introduction of urin chava catheter [facility] Start: 03-18-2023 Measuring intake and output [facility] Start: 03-18-2023 Oxygen therapy [facility] Start: 03-18-2023 Providing care accor ding to standard [facility] Start: 03-18-2023 Provision of activit y privileges [facility] Start: 03-18-2023 Referral to service [facility] Start: 03-18-2023 End: 03-18-2023 [facility] Start: 03-18-2023 Verification routine [facility] Start: 03-18-2023 Admission procedure [facility] Start: 03-18-2023 Patient referral to dietitian [facility] Start: 03-17-2023 End: 03-17-2023 Blood culture [facility] Start: 03-17-2023 Prothrombin time [facility] Start: 12-09-2022 ANNUAL PCP TEAM CASE PREPARER AND LINER MANISHA DISEASE VISIT ANNUAL PCP TEAM CHRONIC DISEASE VISIT [facility] Start: 12-09-2022 Hepatitis B surface antibody level LDL CHOLESTEROL [facility] Start: 12-03-2022 ANNUAL PCP TEAM CASE PREPARER AND LINER MANISHA DISEASE VISIT ANNUAL PCP TEAM CHRONIC DISEASE VISIT [facility] Start: 10-25-2022 Patient discharge [facility] Start: 10-24-2022 Following clinical pathway protocol [facility] Start: 10-24-2022 Transfusion of blood product [facility] Start: 10-24-2022 Cardiac monitoring [facility] Start: 10-24-2022 Cardiac rehabilitati on - phase 1 [facility] Start: 10-24-2022 Cardiac rehabilitati on - phase 2 [facility] Start: 10-24-2022 Notification of physician [facility] Start: 10-24-2022 Oxygen therapy [facility] Start: 10-24-2022 Patient discharge [facility] Start: 10-24-2022 Provision of activit y privileges [facility] Start: 10-24-2022 Taking patient vital signs [facility] Start: 10-24-2022 Vascular disease ris k assessment [facility] Start: 10-24-2022 Vital signs measurements [facility] Start: 10-24-2022 [facility] Start: 10-24-2022 Admission procedure [facility] Start: 10-24-2022 Patient referral to dietitian [facility] Start: 09-17-2022 End: 11-17-2022 Hemoglobin A1c in Blood HGB A1C Lab Routine Controlled type 2 diabetes mellitus without complication, without long-term current use of insulin ([facility]) Wellness examination Expected: 09/17/2022, Expires: 11/17/2022 [facility] Work Phone: Comment on above: Expected: 09/17/2022 , Expires: 11/17/2022 Start: 09-07-2022 DEPRESSION ASSESSMENT DEPRESSION ASS ESSMENT [facility] Start: 08-28-2022 End: 09-11-2022 Influenza virus A and B RNA and SARS-CoV-2 (COVID-19) N gene panel - Respiratory specimen by SEVERO with probe detection COVID WITH FLUA+B, ROUTINE Microbiology Routine Acute upper respiratory infection Expected: 08/28/2022, Expires: 09/11/2022 [facility] Work Phone: Comment on above: Expected: 08/28/2022 , Expires: 09/11/2022 Start: 08-22-2022 Administration of he rpes zoster vaccine Zoster Vaccines (2 of 2) [facility] Start: 08-22-2022 SHINGRIX VACCINE (2 of 2) SHINGRIX VACCINE (2 of 2) [facility] Start: 08-22-2022 Zoster Vaccines (2 of 2) Zoste r Vaccines (2 of 2) [facility] Start: 08-09-2022 ANNUAL PCP TEAM CASE PREPARER AND LINER MANISHA DISEASE VISIT ANNUAL PCP TEAM CHRONIC DISEASE VISIT [facility] Start: 07-08-2022 End: 09-07-2022 Hemoglobin A1c in Blood HGB A1C Lab Routine Controlled type 2 diabetes mellitus without complication, without long-term current use of insulin (HCC) Expected: 07/08/2022, Expires: 09/07/2022 [facility] Work Phone: Comment on above: Expected: 07/08/2022 , Expires: 09/07/2022 Start: 06-27-2022 End: 08-27-2022 PSA/PROSTSPECAG SCRN [facility] Work Phone: Comment on above: Expected: 06/27/2022 , Expires: 08/27/2022 Start: 06-17-2022 End: 08-17-2022 ALBUMIN/CREAT RATIO RND UR ALBUMIN/CREAT RATIO RND UR Lab Routine Controlled type 2 diabetes mellitus without complication, without long-term current use of insulin (HCC) Wellness examination Expected: 06/17/2022, Expires: 08/17/2022 [facility] Work Phone: Comment on above: Expected: 06/17/2022 , Expires: 08/17/2022 Start: 06-17-2022 End: 08-17-2022 CBC panel - Blood by Automated count CBC Lab Routine Essential hypertension, benign Controlled type 2 diabetes mellitus without complication, without long-term current use of insulin (HCC) Wellness examination Expected: 06/17/2022, Expires: 08/17/2022 [facility] Work Phone: Comment on above: Expected: 06/17/2022 , Expires: 08/17/2022 Start: 06-17-2022 End: 08-17-2022 Comprehensive metabolic 2000 panel - Serum or Plasma COMP METABOLIC PANEL Lab Routine Essential hypertension, benign Hyperlipidemia, unspecified hyperlipidemia type Controlled type 2 diabetes mellitus without complication, without long-term current use of insulin (HCC) Wellness examination Expected: 06/17/2022, Expires: 08/17/2022 [facility] Work Phone: Comment on above: Expected: 06/17/2022 , Expires: 08/17/2022 Start: 06-17-2022 End: 08-17-2022 Hepatitis B virus surface Ab [Presence] in Serum by Immunoassay HEP B SURF AG SCRN Lab Routine Wellness examination Need for hepatitis B screening test Expected: 06/17/2022, Expires: 08/17/2022 [facility] Work Phone: Comment on above: Expected: 06/17/2022 , Expires: 08/17/2022 Start: 06-17-2022 End: 08-17-2022 Hepatitis C virus Ab [Presence] in Serum HEP C AB IA W/CONF SCRN Lab Routine Wellness examination Encounter for hepatitis C screening test for low risk patient Expected: 06/17/2022, Expires: 08/17/2022 [facility] Work Phone: Comment on above: Expected: 06/17/2022 , Expires: 08/17/2022 Start: 06-17-2022 End: 08-17-2022 Lipid 1996 panel - Serum or Plasma LIPID PANEL BASIC Lab Routine Hyperlipidemia, unspecified hyperlipidemia type Controlled type 2 diabetes mellitus without complication, without long-term current use of insulin (HCC) Wellness examination Expected: 06/17/2022, Expires: 08/17/2022 [facility] Work Phone: Comment on above: Expected: 06/17/2022 , Expires: 08/17/2022 Start: 06-10-2022 ADULT PREVNAR ADULT PREVNAR [facility] Comment on above: Postponed from 12/17 (Postponed To Appropriate Date) Start: 06-10-2022 ADULT PREVNAR-13 ADULT PREVNAR-13 [facility] Comment on above: Postponed from 12/17 (Postponed To Appropriate Date) Start: 06-10-2022 COVID-19 VACCINE (#1) COVID-19 VACCI NE (#1) [facility] Comment on above: Postponed from 12/17 (Declined at this time) Postponed from 06/18 (Declined at this time) Start: 06-10-2022 COVID-19 VACCINE (1) COVID-19 VACCIN E (1) [facility] Comment on above: Postponed from 12/17 (Declined at this time) Start: 06-10-2022 PNEUMOCOCCAL (2 - PCV) PNEUMOCOCCAL (2 - PCV) [facility] Start: 09-01-2022 Influenza vaccination INFLUENZA (#1) [facility] Start: 05-01-2022 OTRECHEADT, Provider : Sabine Garza, Status: Pen, Time: 8:45 AM OTRECHEADT, Provider: Sabine Garza, Status: Pen, Time: 8:45 AM [facility] Work Phone: Start: 04-28-2022 OTFUADULT4, Provider : Elvira Martin, Status: Pen, Time: 8:00 AM OTFUADULT4, Provider: Elvira Martin, Status: Pen, Time: 8:00 AM [facility] Work Phone: Start: 04-23-2022 OTFUADULT4, Provider : Elvira Martin, Status: Pen, Time: 8:00 AM OTFUADULT4, Provider: Elvira Martin, Status: Pen, Time: 8:00 AM [facility] Work Phone: Start: 04-22-2022 OTFUADULT4, Provider : Elvira Martin, Status: Pen, Time: 8:00 AM OTFUADULT4, Provider: Elvira Martin, Status: Pen, Time: 8:00 AM [facility] Work Phone: Start: 04-17-2022 OTFUADULT4, Provider : Sabine Garza, Status: Pen, Time: 9:15 AM OTFUADULT4, Provider: Sabine Garza, Status: Pen, Time: 9:15 AM [facility] Work Phone: Start: 04-14-2022 OTFUADULT4, Provider : Marielos Law, Status: Pen, Time: 10:30 AM OTFUADULT4, Provider: Marielos Law, Status: Pen, Time: 10:30 AM [facility] Work Phone: Start: 04-08-2022 OTFUADULT3, Provider : Sabine Garza, Status: Pen, Time: 4:30 PM OTFUADULT3, Provider: Sabien Garza, Status: Pen, Time: 4:30 PM [facility] Work Phone: Start: 04-04-2022 Hepatitis B screening URINE ALBUMIN:CREATININE RATIO [facility] Start: 04-03-2022 OTFUADULT4, Provider : Marielos Law, Status: Pen, Time: 9:45 AM OTFUADULT4, Provider: Marielos Law, Status: Pen, Time: 9:45 AM [facility] Work Phone: Start: 03-22-2022 Hepatitis B surface antibody level LDL CHOLESTEROL [facility] Start: 03-10-2022 Hemoglobin A1c/Hemoglobin.total in Blood HBA1C [facility] Start: 12-28-2021 Adult depression screening assessment DEPRESSION SCREENING [facility] Start: 12-10-2021 End: 02-09-2022 LIPID PANEL BASIC LIPID PANEL BASIC Lab Routine Hyperlipidemia, unspecified hyperlipidemia type Hypothyroidism, unspecified type Expected: 12/10/2021, Expires: 02/09/2022 [facility] Work Phone: Comment on above: Expected: 12/10/2021 , Expires: 02/09/2022 Start: 12-10-2021 End: 02-09-2022 Thyrotropin [Units/volume] in Serum or Plasma TSH BLD Lab Routine Hyperlipidemia, unspecified hyperlipidemia type Hypothyroidism, unspecified type Expected: 12/10/2021, Expires: 02/09/2022 [facility] Work Phone: Comment on above: Expected: 12/10/2021 , Expires: 02/09/2022 Start: 12-09-2021 End: 02-08-2022 CBC W Auto Differential panel - Blood [facility] Work Phone: Comment on above: Expected: 12/09/2021 , Expires: 02/08/2022 Start: 12-09-2021 End: 02-08-2022 Comprehensive metabolic 2000 panel - Serum or Plasma [facility] Work Phone: Comment on above: Expected: 12/09/2021 , Expires: 02/08/2022 Start: 12-09-2021 End: 02-08-2022 Erythrocyte sedimentation rate [facility] Work Phone: Comment on above: Expected: 12/09/2021 , Expires: 02/08/2022 Start: 12-09-2021 End: 02-08-2022 Hemoglobin A1c/Hemoglobin.total in Blood [facility] Work Phone: Comment on above: Expected: 12/09/2021 , Expires: 02/08/2022 Start: 12-09-2021 End: 02-08-2022 LIPID PANEL, NONFASTING [facility] Work Phone: Comment on above: Expected: 12/09/2021 , Expires: 02/08/2022 Start: 12-09-2021 End: 02-08-2022 Thyrotropin [Units/volume] in Serum or Plasma [facility] Work Phone: Comment on above: Expected: 12/09/2021 , Expires: 02/08/2022 Start: 12-09-2021 End: 02-08-2022 Urate [Mass/volume] in Serum or Plasma [facility] Work Phone: Comment on above: Expected: 12/09/2021 , Expires: 02/08/2022 Start: 09-22-2021 Hemoglobin A1c/Hemoglobin.total in Blood HBA1C [facility] Start: 09-19-2021 Urine microalbumin profile DTAP,TDAP,TD (2 - Td or Tdap) [facility] Start: 09-07-2021 DEPRESSION ASSESSMENT DEPRESSION ASS ESSMENT [facility] Start: 01-22-2021 Screening for malign ant neoplasm of lung Low-dose CT Lung Cancer Screen [facility] Start: 2020 Screening for malign ant neoplasm of colon Flexible sigmoidoscopy [facility] Start: 2020 SHINGRIX VACCINE (1 of 2) SHINGRIX VACCINE (1 of 2) [facility] Start: 2020 Zoster Vaccines (1 of 2) Zoste r Vaccines (1 of 2) [facility] Start: 05-03-2018 Ambulatory 05/03/2018 Hos pital Encounter David, Ellie Salmon, DPM [address] [place] [address] [phone] [facility] Start: 12-18-2015 COLOGUARD (FIT-DNA) COLOGUARD (FIT-D NA) [facility] Start: 12-18-2015 Colonoscopy COLONOSCOPY [facility] Start: 12-18-2015 COLORECTAL CANCER SCREENING COLORECTAL CANCER SCREENING [facility] Start: 12-18-[address] COLONOGRAPHY [facility] Start: 12-18-2015 FECAL OCCULT BLOOD FECAL OCCULT BLOO D [facility] Start: 12-18-2015 Screening for malign ant neoplasm of colon [facility] Start: 12-18-2015 SIGMOIDOSCOPY SIGMOIDOSCOPY [facility] Start: 1992 DTaP/Tdap/Td Vaccine s (1 - Tdap) DTaP/Tdap/Td Vaccines (1 - Tdap) [facility] Start: 1989 HEPATITIS B (1 of 3 - Risk 3-dose series) HEPATITIS B (1 of 3 - Risk 3-dose series) [facility] Start: 1989 Hepatitis B Vaccine (1 of 3 - 19+ 3-dose series) Hepatitis B Vaccine (1 of 3 - 19+ 3-dose series) [facility] Start: 1989 Hepatitis B Vaccines (1 of 3 - 19+ 3-dose series) Hepatitis B Vaccines (1 of 3 - 19+ 3-dose series) [facility] Start: 1988 BP CONTROLLED (<130/80) BP CONTROLLE D (<130/80) [facility] Start: 1988 Diabetes mellitus screening Diabetes Screening [facility] Start: 1988 HEPATITIS C SCREENING HEPATITIS C [facility] Start: 1988 Hepatitis C screening Hepatitis C [facility] Start: 1988 HIV SCREENING HIV SCREENING [facility] Start: 1985 HIV screening HIV Screening [facility] Start: 1982 Depression screening using PHQ-9 (Patient Health Questionnaire 9) score [facility] Start: 1980 3 comp foot exam completed DIABETIC FOOT EXAM [facility] Start: 1980 Diabetic foot examination Diabetic Foot Exam [facility]: 1980 Glaucoma screening [facility] Start: 1980 Hepatitis C antibody , confirmatory test DILATED RETINAL EXAM [facility] Start: 1980 Urine screening for protein [facility] Start: 1973 History and physical examination, annual for health maintenance Wellness Visit [facility] Start: 12-18-1971 MMR Vaccines (1 of 1 - Standard series) MMR Vaccines (1 of 1 - Standard series) [facility] Start: 06-18-1971 COVID-19 VACCINE (#1) COVID-19 VACCI NE (#1) [facility] Start: 1970 HEPATITIS B (1 of 3 - 3-dose series) HEPATITIS B (1 of 3 - 3-dose series) [facility] Start: 1970 Hepatitis B Vaccine (1 of 3 - 3-dose series) Hepatitis B Vaccine (1 of 3 - 3-dose series) [facility] Start: 1970 Hepatitis B Vaccines (1 of 3 - 3-dose series) Hepatitis B Vaccines (1 of 3 - 3-dose series) [facility] Start: 1970 HIV screening HIV Screening [facility] Start: 1970 Lipid panel Lipid Panel [facility] Start: 1970 Prostate specific antigen measurement PSA Level [facility] Start: 1970 Screening for malign ant neoplasm of colon [facility] Start: 1970 Yearly Adult Physical Yearly Adult P hysical [facility] Bacteria identified in Wound by Culture ABSCESS AND WOUND CULTURE WITH GRAM STAIN Microbiology Routine Ingrowing toenail with infection 03/28/2024 10:38 AM EDT [facility] Blood culture [facility] Catheterization of l eft heart [facility] Clostridioides diffi cile toxin genes [Presence] in Stool by SEVERO with probe detection C. DIFFICILE PCR Lab Routine C. difficile colitis Ordered: 10/16/2023 [facility] Work Phone: Comment on above: Ordered: 10/16/2023 COLOGUARD COLOGUARD Lab Ro utine Screening for colon cancer Ordered: 06/27/2022 [facility] Work Phone: Comment on above: Ordered: 06/27/2022 COLOGUARD COLOGUARD Lab Ro utine Screening for colon cancer Ordered: 08/09/2024 [facility] Comment on above: Ordered: 08/09/2024 End: 09-22-[address] [facility] Work Phone: Comment on above: Once for 1 Occurrenc es starting 09/22/2023 until 09/22/2023 End: 09-22-2023 Extra Urine Raines [facility] Work Phone: Comment on above: Once for 1 Occurrenc es starting 09/22/2023 until 09/22/2023 INR in Blood by Coagulation assay [facility] Lactic acid measurement [facility] End: 06-12-2025 MR Knee - left WO contrast MRI KNEE WO IVCON LEFT Radiology Routine Chronic pain of left knee 1 Occurrences starting 05/13/2024 until 06/12/2025 [facility] Work Phone: Comment on above: 1 Occurrences starti ng 05/13/2024 until 06/12/2025 Patient Education [facility] Work Phone: Patient referral [facility] Work Phone: End: 09-22-2023 Urinalysis complete W Reflex Culture panel - Urine [facility] Service Area Work Phone: Comment on above: STAT (Lab) for 1 Occ urrences starting 09/22/2023 until 09/22/2023 End: 04-27-2025 US Lower extremity vein - left US DVT LOWER LEFT Radiology STAT Acute pain of left knee Edema of leg Pain of left lower extremity 1 Occurrences starting 03/28/2024 until 04/27/2025 [facility] Comment on above: 1 Occurrences starti ng 03/28/2024 until 04/27/2025 End: 10-15-2025 XR Knee - left 4 Views XR KNEE GENERAL 4V AP BOTH/PA BOTH/LAT/MERC LEFT Radiology Routine Pain in both knees, unspecified chronicity 1 Occurrences starting 09/15/2024 until 10/15/2025 [facility] Work Phone: Comment on above: 1 Occurrences starti ng 09/15/2024 until 10/15/2025 End: 10-15-2025 XR Lower extremity - bilateral AP W standing XR LEG FRONTAL HIP TO ANKLE MECHANICAL AXIS Radiology Routine Pain in both knees, unspecified chronicity 1 Occurrences starting 09/15/2024 until 10/15/2025 [facility] Comment on above: 1 Occurrences starti ng 09/15/2024 until 10/15/2025 End: 04-27-2025 XR Toes - right 3 Views XR TOE AP/LAT/OBL RIGHT Radiology Routine Ingrowing toenail with infection 1 Occurrences starting 03/28/2024 until 04/27/2025 [facility] Work Phone: Comment on above: 1 Occurrences starti ng 03/28/2024 until 04/27/2025 XR Toes - right 3 Views XR TOE A P/LAT/OBL RIGHT Radiology Routine Ingrowing toenail with infection 03/28/2024 11:15 AM EDT [facility] End: 05-01-2025 XR Toes - right 3 Views XR TOE AP/LAT/OBL RIGHT Radiology Routine Open wound of toe, initial encounter 1 Occurrences starting 04/01/2024 until 05/01/2025 [facility] Work Phone: Comment on above: 1 Occurrences starti ng 04/01/2024 until 05/01/2025 End: 05-14-2025 XR Toes - right 3 Views XR TOE AP/LAT/OBL RIGHT Radiology Routine Closed non-physeal fracture of phalanx of right great toe, unspecified phalanx, initial encounter 1 Occurrences starting 04/14/2024 until 05/14/2025 [facility] Work Phone: Comment on above: 1 Occurrences starti ng 04/14/2024 until 05/14/2025 [facility] Immunizations Immunization Date Immunization Notes Care Provider Venkata [facility] 08-09-2024 influenza, seasonal, injectable Ginger Lugo MD Work Phone: [facility] 08-09-2024 influenza virus vacc ine, unspecified formulation Ginger Lugo MD Work Phone: [facility] 09-25-2023 influenza, injectabl e, quadrivalent, contains preservative Ginger Lugo MD Work Phone: [facility] 09-25-2023 influenza virus vacc ine, unspecified formulation Ginger Lugo MD Work Phone: [facility] 06-27-2022 influenza, injectabl e, quadrivalent, contains preservative NA Christine PA-C Work Phone: [facility] 06-27-2022 pneumococcal polysaccharide vaccine, 23 valent NA Christine PA-C Work Phone: [facility] 06-27-2022 tetanus toxoid, redu jo diphtheria toxoid, and acellular pertussis vaccine, adsorbed NA Christine PA-C Work Phone: [facility] 06-27-2022 zoster vaccine recombinant NA Christine PA-C Work Phone: [facility] 06-27-2022 influenza virus vacc ine, unspecified formulation Ginger Lugo MD Work Phone: [facility] 06-10-2021 influenza, injectabl e, quadrivalent, contains preservative Ginger Lugo MD Work Phone: [facility] 06-10-2021 pneumococcal polysaccharide vaccine, 23 valent Ginger Lugo MD Work Phone: [facility] 07-23-2020 influenza, injectabl e, quadrivalent, preservative free [facility] 07-23-2020 influenza, seasonal, injectable Dr. Ginger Lugo Work Phone: [facility] 07-23-2020 influenza, seasonal, injectable, preservative free NA Christine PA-C Work Phone: [facility] 06-30-2019 influenza, injectabl e, quadrivalent, contains preservative Ginger Lugo MD Work Phone: [facility] Work Phone: 08-07-2017 Influenza, injectabl e, Madin [place] Canine Kidney, preservative free, quadrivalent NA Emmett WARD Work Phone: [facility] 06-07-[address] Ginger Lugo Work Phone: [facility] 06-07-2017 influenza, seasonal, injectable, preservative free NA Emmett WARD Work Phone: [facility] 07-05-2016 influenza, injectabl e, quadrivalent, contains preservative Ginger Lugo MD Work Phone: [facility] 08-16-2015 influenza, injectabl e, quadrivalent, contains preservative Ginger Lugo MD Work Phone: [facility] 06-02-2014 influenza, seasonal, injectable Ginger Lugo MD Work Phone: [facility] 09-20-2012 influenza virus vacc ine, unspecified formulation Ginger Lugo MD Work Phone: [facility] Work Phone: 09-19-2011 influenza virus vacc ine, unspecified formulation Ginger Lugo MD Work Phone: [facility] Work Phone: 09-19-2011 tetanus toxoid, redu jo diphtheria toxoid, and acellular pertussis vaccine, adsorbed Ginger Lugo MD Work Phone: [facility] Work Phone: Payers Date Payer Category Payer Self-pay [id number] 2022 Worker's Compensation [id number] 2022 Unknown [id number] 1 2019 Private Health Insurance [facility] [employer] PL[employer] [id number] 2019-Present [phone] [address] [address] [place] [address] [facility] [id number] .[id number] 2016 Managed Care (Private) [facility] [id number] .[id number] 5 2016 Managed Care (unspecified) 1 .[id number] .[id number] 2016 Private Health Insurance [id number] .[id number] .[id number] 2016 Private Health Insurance [id number] 2016 Unknown 2016 Worker's Compensation [id number] 2010 Unknown SIRI [id number] 1970 Unknown [id number] 2.16840.1.001181.3.579 .2. 1970 Unknown [id number] 2.16.840.1.918089.3.579 .2. 1970 Unknown [id number] 2.16840.1.009361.3.579 .2. 1970 Unknown [id number] 2.16840.1.000885.3.579 .2. 1970 Unknown [id number] 2.16840.1.163804.3.579 .2 1970 Unknown [id number] 2.16.840.1.681665.3.579 .2.1069 1970 Unknown [id number] 2.16840.1.309791.3.579 .2.1068 1970 Unknown [id number] 2.16.840.1.169677.3.579 .2.1068 1970 Unknown [id number] 2.16.840.1.403524.3.579 .2.1068 1970 Unknown [id number] 2.16.840.1.341766.3.579 .2.1068 1970 Unknown [id number] 2.16.840.1.092434.3.579 .2.1068 1970 Unknown [id number] 2.16.840.1.912311.3.579 .2.1068 1970 Unknown [id number] 2.16.840.1.447151.3.579 .2.1068 1970 Unknown [id number] 2.16.840.1.335267.3.579 .2.1068 1970 Unknown [id number] 2.16.840.1.951439.3.579 .2.1068 1970 Unknown [id number] 2.16.840.1.176799.3.579 .2.1068 1970 Unknown [id number] 2.16.840.1.324649.3.579 .2.1068 1970 Unknown [id number] 2.16.840.1.270979.3.579 .2.1068 1970 Unknown [id number] 2.16.840.1.291547.3.579 .2.1068 1970 Unknown [id number] 2.16.840.1.951927.3.579 .2. 1970 Unknown [id number] 2.16.840.1.743420.3.579 .2 1970 Unknown [id number] 2.16.840.1.426930.3.579 .2. 1970 Unknown [id number] 2.16.840.1.960579.3.579 .2.903 1970 Unknown [id number] 2.16.840.1.801064.3.579 .2.93 1970 Unknown [id number] 2.16.840.1.857480.3.579 .2.902 1970 Unknown [id number] 2.16.840.1.341956.3.579 .2.902 1970 Unknown [id number] 2.16.840.1.977332.3.579 .2.903 1970 Unknown [id number] 2.16.840.1.518493.3.579 .2.1243 1970 Unknown [id number] 2.16.840.1.579389.3.579 .2.1243 1970 Unknown [id number] 2.16.840.1.281945.3.579 .2.1243 1970 Unknown [id number] 2.16.840.1.980097.3.579 .2.1243 Unknown [id number] 2.16.840.1.421535.3.579 .2.462 Unknown [id number] 2.16.840.1.245665.3.579 .2.462 Social History Date Type Detail Facility Tobacco smoking stat [facility] Unknown if ever smoked [facility] Start: 1970 Sex Assigned At Not on file [facility] Start: 03-18-2013 End: 06-27-2022 Tobacco smoking status ALIS Smokes tobacco daily [facility] Start: 10-08-2005 End: 10-08-2022 History of tobacco use Cigarette Smoker [facility] Start: 08-09-2021 End: 10-24-2024 Alcohol intake Current drinker of alcohol (finding) [facility] Start: 02-01-2020 End: 12-28-2020 History SDOH Alcohol Frequency 1 [facility] Start: 02-01-2020 History SDOH Social Connections Phone 3 [facility] Start: 02-01-2020 History SDOH Physical Activity DPW 0 [facility] Start: 02-01-2020 End: 12-02-2021 History SDOH Transport Med 2 [facility] Start: 02-01-2020 Education 12 [facility] Start: 09-16-2020 End: 09-22-2023 Exposure to SARS-CoV-2 (event) Not sure [facility] Start: 1970 Sex Assigned At Male [facility] Start: 03-18-2013 End: 06-09-2024 Cigarettes smoked current (pack per day) - Reported 1 [facility] Start: 03-18-2013 End: 05-04-2024 Tobacco use and exposure Smokeless tobacco non-user [facility] Work Phone: Start: 06-27-2022 Tobacco Comment 06/27/2022 5 cigs/day [facility] Start: 10-24-2022 End: 10-08-2023 Tobacco smoking consumption unknown [facility] Start: 12-19-2020 None [facility] Start: 12-19-2020 Spouse/ Significant Other [facility] Start: 12-19-2020 Cigarettes [facility] Start: 03-17-2023 End: 09-19-2024 Tobacco smoking status NHIS Ex-smoker [facility] Start: 10-08-2005 End: 10-08-2022 History of tobacco use Current smoker [facility] Start: 03-17-2023 End: 06-09-2024 Tobacco use panel [facility] Start: 08-08-2012 End: 08-01-2022 Adult Depression Screening Assessment 0 [facility] Start: 12-01-2021 Gender identity Identifies as male gender (finding) [facility] Do you belong to any clubs or organizations such as orthodoxy groups, unions, fraternal or athletic groups, or school groups? Yes [facility] Are you now , , , , never or living with a partner? [facility] How often to you hav e a drink containing alcohol? Never [facility] Do you feel stress - tense, restless, nervous, or anxious, or unable to sleep at night because your mind is troubled all the time - these days [OSQ] Not at all [facility] (I/We) worried wheth er (my/our) food would run out before (I/we) got money to buy more. Never true [facility] In the past 12 month s, was there a time when you were not able to pay the mortgage or rent on time? No [facility] History of tobacco use Passive smoker [facility] Start: 10-29-2023 End: 09-19-2024 Tobacco use and exposure User of smokeless tobacco [facility] Start: 10-29-2023 End: 01-02-2025 Alcohol intake Lifetime non-drinker (finding) [facility] Start: 10-29-2023 Tobacco Comment snuff [facility] History of tobacco use Chews Tobacco [facility] Do you feel stress - tense, restless, nervous, or anxious, or unable to sleep at night because your mind is troubled all the time - these days [OSQ] Only a little [facility] Medical Equipment Procedure Code Equipment Code Equipment Original Text Equipment Identifier Dates [id number], [id number], [id number], [id number], [id number], [id number] Start: 04-04-2021 End: 11-07-2022 Comment on above: Test blood sugar(s) 1 times daily. Dx: Type 2 DM - Controlled E11.9 Insulin: No STENT,URETERAL 6FR PIG 6X26 FDA Start: 03-15-2018 Drug-eluting coronary artery stent, non-bioabsorbable -polymer-coated ()[id number] FDA Start: 10-24-2022 Drug-eluting coronary artery stent, non-bioabsorbable -polymer-coated ()[id number] FDA Start: 10-24-2022 STENT,URETERAL 6FR PIG 6X26 [...] 0 10/24/19 25 7:57 AM EST UserAiyana [facility] 10-24-2024 Within the last year , have you been humiliated or emotionally abused in other ways by your partner or ex-partner? No 10/24/2024 7:57 AM EST User, Kazhart No [facility] 10-24-2024 Within the last year , have you been afraid of your partner or ex-partner? No 10/24/2024 7:57 AM EST User, Kazhart No [facility] 10-24-2024 Within the last year , have you been raped or forced to have any kind of sexual activity by your partner or ex-partner? No 10/24/2024 7:57 AM EST User, Kazhart No [facility] 10-24-2024 Within the last year , have you been kicked, hit, slapped, or otherwise physically hurt by your partner or ex-partner? No 10/24/2024 7:57 AM EST User, Kazhart No [facility] 10-24-2024 How often to you hav e a drink containing alcohol? Never 10/24/2024 7:57 AM EST User, Mychart Never [facility] 10-24-2024 Functional status Patient does n ot drink 10/24/2024 7:57 AM EST User, Kazhart Patient does not drink [facility] 10-24-2024 How often do you hav e 6 or more drinks on 1 occasion? Never 10/24/2024 7:57 AM EST User, Kazhart Never [facility] 10-09-2023 Functional status Ambulates;Up ad elizabeth [facility] Work Phone: 03-22-2023 Functional status Activity Abili ty [facility] Work Phone: 03-21-2023 Functional status Patient Activi ty Ambulates [facility] Work Phone: 10-25-2022 Functional status Activity Abili [facility] Work Phone: 04-02-2015 Are you deaf, or do you have serious difficulty hearing No 04/02/2015 9:57 AM Asha Orozco LPN No [facility] 04-02-2015 Are you blind, or do you have serious difficulty seeing, even when wearing glasses No 04/02/2015 9:57 AM Asha Orozco LPN No [facility] 04-02-2015 Do you have serious difficulty walking or climbing stairs No 04/02/2015 9:57 AM Asha Orozco LPN No [facility] 04-02-2015 Do you have difficul ty dressing or bathing No 04/02/2015 9:57 AM Asha Orozco LPN No [facility] 04-02-2015 Because of a physica l, mental, or emotional condition, do you have difficulty doing errands alone such as visiting a physician's office or shopping No 04/02/2015 9:57 AM Asha Orozco LPN No [facility] Mental Status Date Assessment Result Facility 10-09-2023 Cognitive function Voice/Name [facility] Work Phone: 10-07-2023 Cognitive function Voice/Name [facility] Work Phone: 03-22-2023 Cognitive function Voice/Name [facility] Work Phone: 03-17-2023 Cognitive function Level Of Cons ciousness Awake;Alert;Appropriate [facility] Work Phone: 01-31-2023 Cognitive function Level Of Cons ciousness Awake;Alert;Appropriate;Fol lows Commands [facility] Work Phone: 10-25-2022 Cognitive function Voice/Name [facility] Work Phone: 04-02-2015 Because of a physica l, mental, or emotional condition, do you have serious difficulty concentrating, remembering, or making decisions No 04/02/2015 9:57 AM Asha Orozco LPN No [facility] Clinical Notes 06-13-2015 to 05-26-2025 Velia Marshall APRN-FUEL INJECTION SERVICER - 05/26/2025 4:35 PM EDTTelephone Encounter - [place] Edna Carvajal - 04/07/2025 12:32 PM EDTTelephone Encounter - [place] Edna Carvajal - 04/07/2025 12:32 PM EDT [...] to the ER. documented in this encounter [facility] Work Phone: 05-26-2025 Note HNO ID: [id number] Author: MARY DALE MA Service: ? Author Type: Classics Professor Type: Progress Notes Filed: 05/26/2025 15:32 Note Text: PT ASSESSMENT - CASTING ROOM Nick presents for Application of brace. Applied Large OA medial extension educator brace to Right knee. Patient electronically signed Mike DANGELO. Patient has been instructed in Care and proper application of brace. Mary Dale MA [facility] 05-26-2025 Note HNO ID: [id number] Author: TORSTEN AVILES DO Service: ? Author [...] knee. - Fitted patient for a medial extension educator brace to reduce pressure on the affected [...] these instructions. Informed Consent Consent Obtained: Verbal [place] Protocol SIGN IN TIME OUT Recording using ambient More Design software for draft documentation of the visit was discussed with the patient/authorized customer solutions representative; all questions welcomed and answered. Patient/authorized customer solutions representative agreed to proceed [facility] 05-26-2025 Note HNO ID: [id number] Author: MARY DALE MA Service: ? Author Type: Classics Professor Type: Progress Notes Filed: 05/26/2025 15:15 Note Text: AMB ROOMING INTAKE FLOWSHEET DATA Risk Screening Do you have concerns about personal safety or safety in the home?: No Pain Pain Level: 10 Pain Location: Knee-Right Description: Aching, Sharp Duration Amount of Time: (ongoing) Frequency: Continuous Intervention/Comfort measure: Medication, Cold, Heat, Other: See comment (muscle rubs) [facility] 04-07-2025 Telephone encounter Note Prescription Refill Information [...] Edna Carvajal April 07, 2025 12:33 PM [facility] 04-07-2025 Miscellaneous Notes Prescription Refill Information The [...] 2025 12:33 PM documented in this encounter [facility] 02-08-2025 Telephone encounter Note Sent patient no show letter #1 [facility] 02-08-2025 Miscellaneous Notes Sent patient no show letter #1 documented in this encounter [facility] 01-11-2025 Telephone encounter Note printed [facility] 01-11-2025 Miscellaneous Notes printed Has a visit scheduled 02/08/25. Do you want this to come from ortho or be temporary? documented in this encounter [facility] 01-11-2025 Telephone encounter Note Has a visit scheduled 02/08/25. Do you want this to come from ortho or be temporary? [facility] 01-10-2025 Telephone encounter Note See nurse triage 01/05/25 [facility] 01-10-2025 Miscellaneous Notes See nurse triage 01/05/25 [...] glimepiride 2 weeks ago [facility] on after total knee to prevent [...] you. Jen Young. documented in this encounter [facility] 01-05-2025 Telephone encounter Note Triage Protocol Advised: [...] OTHER SYMPTOMS:as above Protocols used: Dizziness - [id number] [facility] 01-05-2025 Miscellaneous Notes Triage Protocol Advised: Proceed [...] OTHER SYMPTOMS:as above Protocols used: Dizziness - [id number] documented in this encounter [facility] 01-04-2025 Telephone encounter Note Left message patient [...] glimepiride 2 weeks ago Anupatrick [facility] put on after total knee to prevent clots so will need to call ortho office to see if continue . Jyoti Somers MA [facility] 01-04-2025 Telephone encounter Note Patient has been identified by name and date of : Yes Spouse phones for refill(s): glimepiride (AMARYL) 1 mg tablet Eliquis - both not in current refill list Date of last office visit in primary care: 10/04/2024 Date of next office visit in primary care: 02/08/2025 Please advise. Thank you. Jen Young. [facility] 01-02-2025 History of Present illness Narrative [facility] DAILY TREATMENT NOTE Today's [...] Visit: 4: 10:49 - 11:33 Therapeutic Exercise (42706) Intervention SciFit - x5 min L4 Parameters [...] with Handrails Parameters wall squats w/ green togolese ball x15 Parameters Access Code: [email or web address] URL: [email or web address] Date: 12/13/2024 Prepared by: Aly Winchester Exercises [...] mobility progressions Aly Winchester PT State License, [id number] documented in this encounter [facility] 12-30-2024 History of Present illness Narrative [facility] DAILY TREATMENT NOTE Today's [...] 11/15 Notes Visit : 10:40-11:18 Therapeutic Exercise (28604) Intervention SciFit - x5 min L4 Parameters [...] steps x2 with Handrails Parameters Access Code: [email or web address] URL: [email or web address] Date: 12/13/2024 Prepared by: Aly Winchester Exercises [...] on stretches Alyssia Robin PTA STATE LICENSE, [id number] documented in this encounter [facility] 12-28-2024 History of Present illness Narrative [facility] OUTPATIENT REHABILITATION DAILY TREATMENT NOTE Today's Date 12/28/2024 Patient Name: Nick Loeps Date of : 1970 Current Visit #: [...] Visit 2: 10:48 - 11:31 Therapeutic Exercise (23317) Intervention SciFit - x5 min L4 Parameters [...] knee flexion - NT Parameters Access Code: [email or web address] URL: [email or web address] Date: 12/13/2024 Prepared by: Aly Winchester Exercises [...] standing PREs Aly Winchester PT State License, [id number] documented in this encounter [facility] 12-26-2024 History of Present illness Narrative [facility] OUTPATIENT REHABILITATION DAILY TREATMENT NOTE Today's [...] Visit 1: 10:41 - 11:24 Therapeutic Exercise (21030) Intervention SciFit - x5 min L4 Parameters [...] knee flexion - Nt Parameters Access Code: [email or web address] URL: [email or web address] Date: 12/13/2024 Prepared by: Aly Winchester Exercises [...] ROM progressions Teja Lopez PTA STATE LICENSE, [id number] documented in this encounter [facility] 12-13-2024 History of Present illness Narrative [facility] OUTPATIENT REHABILITATION Evaluation Today's Date 12/13/2024 [...] active Premorbid Activity Level: active Social Support: Protestant, social, or cultural considerations to be made [...] Flags: None Comments: Barriers to Care: None Protestant, social, or cultural considerations to be made [...] Notes Eval: 11:32 - 12:10 Therapeutic Exercise (90816) Intervention initial HEP: Parameters stair stretches 3x20 each Intervention seated scoot for knee flexion Parameters quad sets w/ heel prop Intervention SLR Parameters assisted heel slides Intervention sink ex x10 bilat. Parameters Access Code: [email or web address] URL: [email or web address] Date: 12/13/2024 Prepared by: Aly Winchester Exercises [...] with HEP in 1 week. CPT Code 97175 Low 58903 Moderate 87834 High History 0 1-2 3+ Comorbidities: DM, [...] result in the following functional limitations: ADLs/IADLs, air conditioning insulation installer, functional mobility, recreational activities, quality of life, [...] week Duration: 4 weeks Interventions: Therapeutic Exercise (27656), Neuromuscular Re-Education (51887), Manual Therapy (26870), Therapeutic/ Functional Activities (49174), Gait Training (61323), and Vasopneumatic (28547) Rehab Potential: good Patient Education Provided Pt was educated on the benefits of therapy and importance of compliance with sessions and HEP for rehabilitation. Pt was also educated on treatment diagnosis, POC, and frequency/duration of treatment. Aly Winchester, [place] State License, [id number] documented in this encounter [facility] 11-07-2024 Instructions Nuha Mosquera APRN.CNP - 11/07/2024 11:37 AM EST 1) No change in medications 2) Keep follow up with Dr. Lugo in February documented in this encounter [facility] 11-07-2024 Note HNO ID: [id number] Author: NUHA MOSQUERA APRN.CNP Service: ? Author Type: Nurse Practitioner Type: Progress Notes Filed: 11/07/2024 11:39 Note Text: VIRTUAL VISIT PROGRESS NOTE This is a virtual visit using [employer] Video Visit. It required patient-provider interaction for the medical decision making as documented below. I have communicated my name and active licensure. The patient's identity and physical location were verified at the time of this visit. Either the patient or their legal customer solutions representative has been informed of the risks [...] Fam hx-cardiovas dis NEC n/a father, of [place] at 45 Hypothyroid Other and unspecified hyperlipidemia [...] - ICD9: 251.2, (more content not included)... [facility] 11-07-2024 History of Present illness Narrative VIRTUAL VISIT PROGRESS NOTE This is a virtual visit using [employer] Video Visit. It required patient-provider interaction for the medical decision making as documented below. I have communicated my name and active licensure. The patient's identity and physical location were verified at the time of this visit. Either the patient or their legal customer solutions representative has been informed of the risks [...] Fam hx-cardiovas dis NEC n/a father, of [place] at 45 Hypothyroid Other and unspecified hyperlipidemia [...] which included preparing to see the patient, [id number] patient care, completing clinical documentation, obtaining and/or reviewing separately obtained history, performing a medically appropriate examination, counseling and educating the patient/family/caregiver, and ordering medications, tests, or procedures Nuha Mosquera APRN.FUEL INJECTION SERVICER documented in this encounter [facility] 11-07-2024 Telephone encounter Note Prescription Refill Information [...] Sy LPN November 07, 2024 10:11 AM [facility] 11-07-2024 Miscellaneous Notes Prescription Refill Information The [...] 2024 10:11 AM documented in this encounter [facility] 10-26-2024 Telephone encounter Note Prescription Refill Information [...] Barrow LPN October 26, 2024 12:49 PM [facility] 10-26-2024 Miscellaneous Notes Prescription Refill Information The [...] 2024 12:49 PM documented in this encounter [facility] 10-24-2024 Instructions Nuha Mosquera APRN.CNP - 10/24/2024 10:04 AM EST 1) Cut Metformin ER back to 2 tablets a day 2) Continue levothyroxine, paxil, and metoprolol day of surgery 3) Follow up first week in November documented in this encounter [facility] 10-24-2024 Note HNO ID: [id number] Author: NUHA MOSQUERA APRN.CNP Service: ? Author [...] visit. Either the patient or their legal customer solutions representative has been informed of the risks [...] Fam hx-cardiovas dis NEC n/a father, of [place] at 45 Hypothyroid Other and unspecified hyperlipidemia [...] off glimepiride 2 (more content not included)... [facility] 10-24-2024 History of Present illness Narrative VIRTUAL VISIT PROGRESS NOTE This is a virtual visit using [employer] Video Visit. It required patient-provider interaction for the medical decision making as documented below. I have communicated my name and active licensure. The patient's identity and physical location were verified at the time of this visit. Either the patient or their legal customer solutions representative has been informed of the risks [...] Fam hx-cardiovas dis NEC n/a father, of [place] at 45 Hypothyroid Other and unspecified hyperlipidemia [...] complication, without long-term current use of insulin ([facility]) - ICD9: 250.00, ICD10: E11.9 - Controlled - Stop glimepiride - METFORMIN ER 500 MG TABLET,EXTENDED RELEASE 24 HR reduced to 1,000mg daily Nuha Mosquera APRN.RAMIRO There are no Patient Instructions on file for this visit. I spent a total of 15 minutes on the date of the service which included preparing to see the patient, urav-xc-[id number] patient care, completing clinical documentation, obtaining and/or reviewing separately obtained history, performing a medically appropriate examination, counseling and educating the patient/family/caregiver, and ordering medications, tests, or procedures Nuha Mosquera APRN.CNP documented in this encounter [facility] 10-20-2024 Telephone encounter Note See other Redeem[employer] message Marilu Sanchez MA October 20, 2024 5:34 PM [facility] 10-20-2024 Miscellaneous Notes See other mychart message Marilu Sanchez MA October 20, 2024 5:34 PM documented in this encounter [facility] 10-12-2024 Telephone encounter Note Paperwork completed and returned to [facility]. Confirmation received. Copy sent for scanning. [facility] 10-12-2024 Miscellaneous Notes Paperwork completed and returned to [employer]. Confirmation received. Copy sent for scanning. No paperwork has been received in this office for this patient. I called and spoke with the spouse to inform her of that. She reports this just needs filled out for the last time that Dr. 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 Pt's calling to see if the paperwork from [employer] has been received and if so, if it has been completed. It is for short term disability. It would have come from [employer] via mail or fax. Please review and advise. Danielle Riojas MA documented in this encounter [facility] 10-11-2024 Telephone encounter Note The following approved medication requests have been transmitted electronically. Requested Prescriptions Pending Prescriptions Disp Refills PARoxetine (PAXIL) 40 mg tablet 90 tablet 3 Sig: Take 1 tablet by mouth once daily. Nuha A Suppan, HEAD OF HISTORY.FUEL INJECTION SERVICER [facility] 10-11-2024 Miscellaneous Notes The following approved medication [...] 2024 7:44 PM documented in this encounter [facility] 10-10-2024 Telephone encounter Note The patient has [...] Parham RN October 10, 2024 7:44 PM [facility] 10-06-2024 Telephone encounter Note No paperwork has been received in this office for this patient. I called and spoke with the spouse to inform her of that. She reports this just needs filled out for the last time that Dr. 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 [facility] 10-05-2024 Telephone encounter Note Pt's calling to see if the paperwork from [employer] has been received and if so, if it has been completed. It is for short term disability. It would have come from [employer] via mail or fax. Please review and advise. Danielle Riojas MA [facility] 10-04-2024 Note HNO ID: [id number] Author: GINGER LUGO MD Service: ? Author [...] done in 2022. Sees Dr Patton at [facility] soon. Shortness of breath: no [...] Abs Lymph 1.00 - 4.00 k/uL 2.36 Sierra% % 5.0 Abs Sierra <0.87 k/uL 0.72 Eosin% % 0.5 Abs [...] Fam hx-cardiovas dis NEC n/a father, of [place] at 45 Hypothyroid Other and unspecified hyperlipidemia [...] Diabetes Maternal Grandmothe (more content not included)... [facility] 10-04-2024 History of Present illness Narrative Patient [...] done in 2022. Sees Dr Patton at [facility] soon. Shortness of breath: no new short of breath. Known sleep apnea: Yes. Using cpap. Hx of clotting issues: No. Current bleeding or bruising: No. Sugars are slightly higher that previous but should not pose any issues with clearance. Recent labs: Latest Ref [facility] 08/09/2024 WBC 3.70 - 11.00 k/uL 14.40 [...] Abs Lymph 1.00 - 4.00 k/uL 2.36 Sierra% % 5.0 Abs Sierra <0.87 k/uL 0.72 Eosin% % 0.5 Abs [...] Fam hx-cardiovas dis NEC n/a father, of [place] at 45 Hypothyroid Other and unspecified hyperlipidemia [...] cbc today. 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 Dvt prophylaxis per surgery. 2. Central sleep [...] stable. . 6. Coronary artery disease involving [place] coronary artery of [place] heart without angina pectoris - ICD9: 414.01, [...] to eight weeks documented in this encounter [facility] 09-22-2024 Telephone encounter Note CD READY FOR PASTE UP ARTIST AT [facility] TO LET PT KNOW [facility] 09-22-2024 Miscellaneous Notes CD READY FOR PASTE UP ARTIST AT [facility] TO LET PT KNOW Patient's Liliana calling in requesting a CD to be made of patient's MRI completed on 05/26/24, and his knee and leg xray on 09/19/2024. Please let Liliana know once completed. Liliana's number: [phone] Teagan Vergara September 22, 2024 10:44 AM documented in this encounter [facility] 09-22-2024 Telephone encounter Note Patient's Liliana calling in requesting a CD to be made of patient's MRI completed on 05/26/24, and his knee and leg xray on 09/19/2024. Please let Liliana know once completed. Liliana's number: [phone] Teaganadam Guillen Ursula September 22, 2024 10:44 AM [facility] 09-19-2024 Note Addended by: JOSE VARELA on: 09/19/2024 02:27 PM Modules accepted: Level of Service [facility] 09-19-2024 Miscellaneous Notes Addended by: JOSE LOO on: 09/19/2024 02:27 PM Modules accepted: Level of Service documented in this encounter [facility] 09-19-2024 History of Present illness Narrative Images [...] 08/09/2024. Consult to the Endocrinology and Metabolic [place] ([place]) recommended prior to surgery. Area Deprivation [...] Mellitus Type 2, Controlled, Without Complications ([facility]) Obesity, Class Iii, Bmi 40-49.9 (Morbid Obesity) ([facility]) Situational Stress Theo (Generalized Anxiety Disorder) Josiah (Obstructive Sleep Apnea) Ddd (Degenerative Disc Disease), Lumbar Spinal Stenosis of Lumbar Region Without Neurogenic Claudication Cervical Stenosis of Spine Coronary Artery Disease Involving [place] Coronary Artery of [place] Heart Without Angina Pectoris S/P Ptca (Percutaneous [...] Fam hx-cardiovas dis NEC n/a father, of [place] at 45 Hypothyroid Other and unspecified hyperlipidemia [...] which included preparing to see the patient, iuhu-bn-eufk patient care, completing clinical documentation, obtaining and/or reviewing separately obtained history, performing a medically appropriate examination, counseling and educating the patient/family/caregiver, ordering medications, tests, or procedures, communicating with other HCPs (not separately reported), independently interpreting results (not separately reported), communicating results to the patient/family/caregiver, and care coordination (not separately reported). documented in this encounter [facility] 09-19-2024 Note HNO ID: [id number] Author: JOSE LOO MD Service: ? Author [...] 08/09/2024. Consult to the Endocrinology and Metabolic [place] ([facility]) recommended prior to surgery. Area Deprivation [...] Stenosis of Spine Coronary Artery Disease Involving [place] Coronary Artery of [place] Heart Without Angina Pectoris S/P Ptca (Percutaneous Transluminal Coronary Angioplasty) Status Post Insertion of Drug-Eluting Stent into Left Anterior Descending (Lad) Artery Benign Prostatic Hyperplasia With Urinary Obstruction Calculus of Ureter Depressive (more content not included)... [facility] 09-19-2024 History of Present illness Narrative Radiology [...] PATIENT PRESENTS WITH AN IMPLANTABLE OR ATTACHED GED TEACHER: No RADIOLOGY DEPARTMENT: General X-ray: Exam(s) Completed: Lower Extremity X-Ray(s): Knee, AP / Lat / Merchant Bilateral and FLEA (Full Length Lower Extremity) PERIPHERAL IV DATA: Not applicable SIGNED BY: RT Christian(R) September 19, 2024 2:00 PM documented in this encounter [facility] 09-19-2024 Note HNO ID: [id number] Author: DARRYN JONES RT(R) Service: Radiology Author [...] PATIENT PRESENTS WITH AN IMPLANTABLE OR ATTACHED GED TEACHER: No RADIOLOGY DEPARTMENT: General X-ray: Exam(s) Completed: Lower Extremity X-Ray(s): Knee, AP / Lat / Merchant Bilateral and FLEA (Full Length Lower Extremity) PERIPHERAL IV DATA: Not applicable SIGNED BY: RT Christian(R) September 19, 2024 2:00 PM [facility] 09-15-2024 Note Addended by: NUHA MOSQUERA on: 09/15/2024 01:20 PM Modules accepted: Orders [facility] 09-15-2024 Miscellaneous Notes Addended by: NUHA MOSQUERA on: 09/15/2024 01:20 PM Modules accepted: Orders documented in this encounter [facility] 09-15-2024 Telephone encounter Note Done. Thanks for update [facility] 09-15-2024 Miscellaneous Notes Done. Thanks for update Spouse (Liliana) calls to report that the order for knee immobilizer is not available at [facility]. Liliana reports what they can offer is a reaction web brace (doesn't completely immobilize the knee but offers support). If provider agrees new order would have to be sent to [facility] for reaction web brace. Pended requested order with previous diagnosis for review. Batool Ballesteros RN documented in this encounter [facility] 09-15-2024 Telephone encounter Note Spouse (Liliana) calls to report that the order for knee immobilizer is not available at [facility]. Liliana reports what they can offer is a reaction web brace (doesn't completely immobilize the knee but offers support). If provider agrees new order would have to be sent to [facility] for reaction web brace. Pended requested order with previous diagnosis for review. Batool Ballesteros RN [facility] 09-15-2024 Instructions Nuha Mosquera APRN.CNP - 09/15/2024 11:48 AM EST 1) Off work through Thursday 2) DME request at [facility] for walker and immobilizer 3) Capsaicin topically 2 - 3 times a day, HOT- do not put heating pad on this (use ice) 4) see Dr. 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 will follow periodically Fam hx-cardiovas dis NEC n/a father, of [place] at 45 Hypothyroid Other and unspecified hyperlipidemia [...] Nuha Mosquera APRN.RAMIRO documented in this encounter [facility] 09-15-2024 Note HNO ID: [id number] Author: NUHA MOSQUERA APRN.CNP Service: ? 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 will follow periodically Fam hx-cardiovas dis NEC n/a father, of [place] at 45 Hypothyroid Other and unspecified hyperlipidemia [...] Head: Normocephalic. Musculoskeletal: (more content not included)... [facility] 09-09-2024 Telephone encounter Note Patients called in and states her is still having a lot of issues with his knee even after the injection. She states they were told to call as he will need to see a surgeon. Lu Jenkins LPN [facility] 09-09-2024 Miscellaneous Notes Patients called in and states her is still having a lot of issues with his knee even after the injection. She states they were told to call as he will need to see a surgeon. Lu Jenkins LPN documented in this encounter [facility] 08-26-2024 Note HNO ID: [id number] Author: TORSTEN AVILES, DO Service: ? Author [...] Mellitus Type 2, Controlled, Without Complications ([facility]) Obesity, Class Iii, Bmi 40-49.9 (Morbid Obesity) ([facility]) Situational Stress Theo (Generalized Anxiety Disorder) Josiah (Obstructive Sleep Apnea) Ddd (Degenerative Disc Disease), Lumbar Spinal Stenosis of Lumbar Region Without Neurogenic Claudication Cervical Stenosis of Spine Coronary Artery Disease Involving [place] Coronary Artery of [place] Heart Without Angina Pectoris S/P Ptca (Percutaneous [...] Fam hx-cardiovas dis NEC n/a father, of [place] at 45 Hypothyroid Other and unspecified hyperlipidemia [...] on 08/03/2024) blood (more content not included)... [facility] 08-26-2024 History of Present illness Narrative Associated [...] Mellitus Type 2, Controlled, Without Complications ([facility]) Obesity, Class Iii, Bmi 40-49.9 (Morbid Obesity) ([facility]) Situational Stress Theo (Generalized Anxiety Disorder) Josiah (Obstructive Sleep Apnea) Ddd (Degenerative Disc Disease), Lumbar Spinal Stenosis of Lumbar Region Without Neurogenic Claudication Cervical Stenosis of Spine Coronary Artery Disease Involving [place] Coronary Artery of [place] Heart Without Angina Pectoris S/P Ptca (Percutaneous [...] Fam hx-cardiovas dis NEC n/a father, of [place] at 45 Hypothyroid Other and unspecified hyperlipidemia [...] this encounter. Objective Ortho Exam 58-year-old male [facility] exam no acute distress. Evaluation of left knee shows no significant effusion redness or warmth to touch. Pain over the anterior joint line medially. Assessment/Plan ASSESSMENT Diagnosis (M17.12) Primary osteoarthritis of left knee (primary encounter diagnosis) No orders found for this visit on 08/26/24. PLAN Large Joint Arthro/Inj: L knee joint Informed Consent Consent Obtained: Verbal [place] Protocol A moment to CARE was completed. [...] Durolane injection into left knee LOT # [id number] EXP 01/04/2027 Mary Dale MA documented in this encounter [facility] 08-26-2024 Note HNO ID: [id number] Author: MARY DALE MA Service: ? Author Type: Classics Professor Type: Progress Notes Filed: 08/26/2024 15:48 Note Text: AMB ROOMING INTAKE FLOWSHEET DATA Pain Pain Level: 8 Pain Location: Knee-Left Description: Aching, Sharp, Stabbing, Stiffness Duration Amount of Time: (ongoing) Frequency: Continuous Intervention/Comfort measure: Exercise, Medication, Other: See comment, Cold (muscle rub) Durolane injection into left knee LOT # [id number] EXP 01/04/2027 Mary Dale MA [facility] 08-25-2024 Telephone encounter Note Patient has been [...] 02/08/2025 Please advise. Thank you. Jen Young. [facility] 08-25-2024 Miscellaneous Notes Patient has been identified [...] you. Jen Young. documented in this encounter [facility] 08-16-2024 Telephone encounter Note Patient has been authorized for Durolane injection. He has been contacted and scheduled. [facility] 08-16-2024 Miscellaneous Notes Patient has been authorized [...] of insurance card to be uploaded into [employer]. Patient is on blood thinner- NSAID's are [...] section) Patient Name: Nick lopes Appt Date: [facility] code(s) & drug name(s): [id number] radhames Comments: payer policy requires trial of nsaids- no mention in ov note- please advise is nsaid trial has been completed documented in this encounter [facility] 08-12-2024 Telephone encounter Note Patients Liliana phones [...] the approval/denial of injection. Gwendolyn Santiago MA [facility] 08-10-2024 Telephone encounter Note Patient informed and verbalized understanding. Kylie Trna MA [facility] 08-10-2024 Miscellaneous Notes Patient informed and verbalized understanding. Kylie Tran MA White count is slightly up. Likely ok. Call if any s/s of infection.recheck cbc in four weeks. Could be related to steroids. Sugars are rising. Watch diet. Recheck sugars with A1c in three months. documented in this encounter [facility] 08-10-2024 Telephone encounter Note White count is slightly up. Likely ok. Call if any s/s of infection.recheck cbc in four weeks. Could be related to steroids. Sugars are rising. Watch diet. Recheck sugars with A1c in three months. [facility] 08-10-2024 Telephone encounter Note Patient contacted for copy of insurance card to be uploaded into [employer]. [facility] 08-09-2024 History of Present illness Narrative Patient [...] [facility] Folate added back in March. Anemia stable. Due for labs. THYROID: Continues Levothyroxine 125 mcg daily Denies any energy, hair or skin changes. No weight changes. No longer sees Cardiology. HTN: Monitors BP at home. Denies chest pain and shortness of breath Some mild headaches. Denies dizziness Denies palpitations or syncopal episodes No edema JOSIAH: DME: [employer], [place]. Needs new machine and supplies Last PSG [...] Fam hx-cardiovas dis NEC n/a father, of [place] at 45 Hypothyroid Other and unspecified hyperlipidemia [...] Ginger Lugo MD documented in this encounter [facility] 08-09-2024 Note HNO ID: [id number] Author: GINGER LUGO MD Service: ? Author [...] [facility]. F[facility] added back in March. Anemia stable. [...] Fam hx-cardiovas dis NEC n/a father, of [place] at 45 Hypothyroid Other and unspecified hyperlipidemia [...] Tobacco Use Smoking (more content not included)... [facility] 08-08-2024 Telephone encounter Note Patient is on blood thinner- NSAID's are contra-indicated in his situation [facility] 08-05-2024 Telephone encounter Note Additional Clinical Information [...] advise is nsaid trial has been completed [facility] 08-03-2024 Note HNO ID: [id number] Author: TORSTEN AVILES, DO Service: ? Author [...] muscle rubs, knee brace, cane use HPI Nikc presents today for follow-up of left knee [...] Class Iii, Bmi 40-49.9 (Morbid Obesity) (Former[facility]) Situational Stress Theo (Generalized Anxiety Disorder) Josiah (Obstructive Sleep Apnea) Ddd (Degenerative Disc Disease), Lumbar Spinal Stenosis of Lumbar Region Without Neurogenic Claudication Cervical Stenosis of Spine Coronary Artery Disease Involving [place] Coronary Artery of [place] Heart Without Angina Pectoris S/P Ptca (Percutaneous [...] Fam hx-cardiovas dis NEC n/a father, of [place] at 45 Hypothyroid Other and unspecified hyperlipidemia [...] THREE TIMES RAYRAY (more content not included)... [facility] 08-03-2024 History of Present illness Narrative Images [...] Mellitus Type 2, Controlled, Without Complications ([facility]) Obesity, Class Iii, Bmi 40-49.9 (Morbid Obesity) ([facility]) Situational Stress Theo (Generalized Anxiety Disorder) Josiah (Obstructive Sleep Apnea) Ddd (Degenerative Disc Disease), Lumbar Spinal Stenosis of Lumbar Region Without Neurogenic Claudication Cervical Stenosis of Spine Coronary Artery Disease Involving [place] Coronary Artery of [place] Heart Without Angina Pectoris S/P Ptca (Percutaneous [...] Fam hx-cardiovas dis NEC n/a father, of [place] at 45 Hypothyroid Other and unspecified hyperlipidemia [...] brace, cane use) documented in this encounter [facility] 08-03-2024 Note HNO ID: [id number] Author: MARY DALE MA Service: ? Author Type: Classics Professor Type: Progress Notes Filed: 08/03/2024 15:00 Note Text: AMB ROOMING INTAKE FLOWSHEET DATA Pain Pain Level: 10 Pain Location: Knee-Left Description: Tightness, Aching Duration Amount of Time: (ongoing) Frequency: Continuous Intervention/Comfort measure: Heat, Cold, Other: See comment, Exercise (muscle rubs, knee brace, cane use) [facility] 07-27-2024 Telephone encounter Note The patient has [...] Mann LPN July 27, 2024 7:49 AM [facility] 07-27-2024 Miscellaneous Notes The patient has been [...] 2024 7:49 AM documented in this encounter [facility] 07-25-2024 Telephone encounter Note Patient is not eligible for cortisone injection until after 08/05/2024. [facility] 07-25-2024 Miscellaneous Notes Patient is not eligible [...] walking. would like a call back at [phone]. Lu Jenkins LPN documented in this encounter [facility] 07-25-2024 Telephone encounter Note Patients called in and states he has been having pain in his knee which he is rating a 10 on the pain scale. He is wondering if he is able to get shots or something for the pain as it is causing him to have problems walking. would like a call back at [phone]. Lu Jenkins LPN [facility] 06-24-2024 Telephone encounter Note Forms completed and returned to [employer]. Confirmation received. Copy sent for scanning. [facility] to request [facility] for past visits. [facility] 06-24-2024 Miscellaneous Notes Forms completed and returned to [facility]. Confirmation received. Copy sent for scanning. [facility] to request records for past visits. Patients returned phone call from Mary. PT is [facility] in [place]. Off work date is 05/13/24. Gwendolyn Santiago [...] completed, Fax form to Dwight Chandler at [phone] Form has been forwarded to Dr. Aviles for signature. Mary Dale MA documented in this encounter [facility] 06-24-2024 Telephone encounter Note Patients returned phone call from Mary. PT is [facility] in [place]. Off work date is 05/13/24. Gwendolyn Santiago MA [facility] 06-24-2024 Telephone encounter Note I called and left a message for the patient to contact the office. Received FMLA paperwork for him. Need to know..... Where is the patient doing his PT so we can get reports. 2. What was the first day not worked? [facility] 06-24-2024 Telephone encounter Note Type of form: FMLA Form received via fax When form is completed, Fax form to Dwight Chandler at [phone] Form has been forwarded to Dr. Aviles for signature. Mary Dale MA [facility] 06-16-2024 Telephone encounter Note Letter completed and sent to patient in [place] as requested. [facility] 06-16-2024 Miscellaneous Notes Letter completed and sent to patient in [place] as requested. Liliana called. Verified name and date of . Patient is doing physical therapy. Physical therapy does not recommend patient to return to work until it is completed. It is projected to finish July 15, 2024. His currently only off of work through June 22, 2024 and needs extension written. Okay to send extension via [employer]. Shayna Romero LPN documented in this encounter [facility] 06-16-2024 Telephone encounter Note Liliana called. Verified name and date of . Patient is doing physical therapy. Physical therapy does not recommend patient to return to work until it is completed. It is projected to finish July 15, 2024. His currently only off of work through June 22, 2024 and needs extension written. Okay to send extension via [employer]. Shayna Romero LPN [facility] 06-01-2024 Telephone encounter Note Letter written in My chart encounter. [facility] 06-01-2024 Miscellaneous Notes Letter written in My [...] pain Please advise documented in this encounter [facility] 05-31-2024 Telephone encounter Note Letter written and sent through my chart per patient's request. [facility] 05-31-2024 Miscellaneous Notes Letter written and sent through my chart per patient's request. documented in this encounter [facility] 05-31-2024 Telephone encounter Note Patients called in requesting information regarding what needs step by be and if he can have note to either write him off work longer and a note to send him back to work. Please advise. Sienna Pina LPN [facility] Work Phone: 05-30-2024 Telephone encounter Note Patients called requesting a work note To return to work or to be off longer with PT because he's still in pain Please advise [facility] Work Phone: 05-29-2024 Telephone encounter Note notified pt. Yojana Gonsales MA [facility] 05-29-2024 Miscellaneous Notes notified pt. Yojana Gonsales MA documented in this encounter [facility] 05-26-2024 History of Present illness Narrative Radiology [...] PATIENT PRESENTS WITH AN IMPLANTABLE OR ATTACHED GED TEACHER: No RADIOLOGY DEPARTMENT: MR; Exam(s) Completed: Lower MSK: Knee, left PERIPHERAL IV DATA: Not applicable SIGNED BY: RT Rina(R) May 26, 2024 8:06 AM documented in this encounter [facility] 05-23-2024 Telephone encounter Note Prescription Refill Information [...] Tse LPN May 23, 2024 9:25 AM [facility] 05-23-2024 Telephone encounter Note Prescription Refill Information [...] Tse LPN May 23, 2024 9:24 AM [facility] 05-23-2024 Miscellaneous Notes Prescription Refill Information The [...] 2024 9:24 AM documented in this encounter [facility] 05-23-2024 Miscellaneous Notes Prescription Refill Information The [...] 2024 9:25 AM documented in this encounter [facility] 05-16-2024 Telephone encounter Note See [email or web address] message [facility] 05-16-2024 Miscellaneous Notes See jiffstoret message documented in this encounter [facility] 05-06-2024 History of Present illness Narrative Associated [...] Mellitus Type 2, Controlled, Without Complications ([facility]) Obesity, Class Iii, Bmi 40-49.9 (Morbid Obesity) ([facility]) Situational Stress Theo (Generalized Anxiety Disorder) Josiah (Obstructive Sleep Apnea) Ddd (Degenerative Disc Disease), Lumbar Spinal Stenosis of Lumbar Region Without Neurogenic Claudication Cervical Stenosis of Spine Coronary Artery Disease Involving [place] Coronary Artery of [place] Heart Without Angina Pectoris S/P Ptca (Percutaneous [...] Fam hx-cardiovas dis NEC Comment: father, of [place] at 45 No date: Hypothyroid Sep 14: Other and unspecified hyperlipidemia Comment: (dx'd in hospital for atypical CP) No date: Overweight(278.02) No date: Sleep apnea 1989: Tobacco use disorder complicating , childbirth, or the puerperium, unspecified as to episode of care or not applicable No date: Unspecified essential hypertension PAST SURGICAL HISTORY 2004: EXCISION OF BENIGN LESION, COMPLICATED Comment: Lipoma, abdominal wall, [facility] age 4+/-: TONSILLECTOMY PRIMARY/SECONDARY <AGE 12 [...] measure: Medication, Cold documented in this encounter [facility] 05-04-2024 Telephone encounter Note I called and spoke with the patient. Message from Dr. Aviles given. Appointment has been moved up to 05/06/2024. [facility] 05-04-2024 Miscellaneous Notes I called and spoke [...] for pain. He can be reached at [phone]. Jacqueline Griffin RN May 04, 2024 3:00 PM documented in this encounter [facility] 05-04-2024 Telephone encounter Note Patient called, verified [...] for pain. He can be reached at [phone]. Jacqueline Griffin RN May 04, 2024 3:00 PM [facility] 05-04-2024 History of Present illness Narrative Has already seen Dr Aviles. He already has a message out to him and he states he is going to send in a medicine for him and is seeing him again on the . I will defer to him. No charge for today and no exam done. documented in this encounter [facility] 04-14-2024 History of Present illness Narrative FOLLOW [...] (H) 4.3 - 5.6 % Final Comment: Stateless Diabetes Association guidelines indicate that patients with [...] Fam hx-cardiovas dis NEC Comment: father, of [place] at 45 No date: Hypothyroid Sep 14: [...] Sienna Pina LPN documented in this encounter [facility] 04-14-2024 History of Present illness Narrative Radiology [...] PATIENT PRESENTS WITH AN IMPLANTABLE OR ATTACHED GED TEACHER: No RADIOLOGY DEPARTMENT: General X-ray: Exam(s) Completed: Lower Extremity X-Ray(s): Toes, Right PERIPHERAL IV DATA: Not applicable SIGNED BY: RT Vargas(R) April 14, 2024 11:10 AM documented in this encounter [facility] 04-07-2024 Telephone encounter Note View External Cardiology - Echo [ID [id number]] View External Cardiology - Cardiac Cath [ID [id number]] Scan on 10/20/2023 11:35 AM by ProviderVeronica PA-C: Consultation - Cardiology Scan on 10/20/2023 11:35 AM by ProviderVeronica PA-C: Discharge Summary I did not find anything from [facility], other than the information from his inpatient stay. Jacqueline Griffin RN [facility] 04-07-2024 Miscellaneous Notes View External Cardiology - Echo [ID [id number]] View External Cardiology - Cardiac Cath [ID [id number]] Scan on 10/20/2023 11:35 AM by ProviderVeronica [...] [facility] ( I think) Thanks! Erin Frankel APRN.FUEL INJECTION SERVICER documented in this encounter [facility] 04-06-2024 Telephone encounter Note Faxed as requested. [facility] 04-06-2024 Miscellaneous Notes Faxed as requested. Type of form: Long-term Disability Form received via fax When form is completed, Fax form to [phone] Form has been forwarded to Physician Desk: Dr. Pema Tran MA documented in this encounter [facility] 04-06-2024 History of Present illness Narrative Associated [...] Mellitus Type 2, Controlled, Without Complications ([facility]) Obesity, Class Iii, Bmi 40-49.9 (Morbid Obesity) ([facility]) Situational Stress Theo (Generalized Anxiety Disorder) Josiah (Obstructive Sleep Apnea) Ddd (Degenerative Disc Disease), Lumbar Spinal Stenosis of Lumbar Region Without Neurogenic Claudication Cervical Stenosis of Spine Coronary Artery Disease Involving [place] Coronary Artery of [place] Heart Without Angina Pectoris S/P Ptca (Percutaneous [...] Fam hx-cardiovas dis NEC Comment: father, of [place] at 45 No date: Hypothyroid Sep 14: [...] knee joint Informed Consent Consent Obtained: Verbal [place] Protocol SIGN IN TIME OUT 04/06/2024 2:17 [...] pain - [facility] Pain Pain Level: 5 Pain Location: Knee-Left Description: Sharp, Aching Duration Amount of Time: 2 Duration Units: Weeks Frequency: Continuous Intervention/Comfort measure: Medication Patient states about 2 he fell and landed on his left knee. Seen by Dr Selby and given Tramadol for the pain and taking as needed with Tylenol. X-rays done 03/28/24. documented in this encounter [facility] 04-06-2024 Telephone encounter Note Type of form: Long-term Disability Form received via fax When form is completed, Fax form to [phone] Form has been forwarded to Physician Desk: Dr. Pema Tran MA [facility] 04-04-2024 Telephone encounter Note Patient's spouse Liliana returned call and given provider's message regarding patient. Tracie Cardenas RN [facility] 04-04-2024 Miscellaneous Notes Patient's spouse Liliana returned call and given provider's message regarding patient. Tracie Cardenas RN Left message to call and speak with nurse. Sugars are much better. Borderline anemia Is stable. Folate, a vitamin is low, which can cause anemia. Add folate. Rx sent. Recheck labs in one month documented in this encounter [facility] 04-04-2024 Telephone encounter Note Left message to call and speak with nurse. [facility] 04-04-2024 Telephone encounter Note Sugars are much better. Borderline anemia Is stable. Folate, a vitamin is low, which can cause anemia. Add folate. Rx sent. Recheck labs in one month [facility] 04-01-2024 History of Present illness Narrative Per Dr. Beasley, Nick was provided with Post Op shoe, size large, and instructed/educated in its application, wear, and care. All questions were answered, and patient was able to demonstrate competence with the necessary skills to utilize the above equipment. Juliana Orona, RN documented in this encounter [facility] 04-01-2024 Telephone encounter Note Received phone call [...] see patient at follow-up Sam Beasley DPM [facility] 04-01-2024 Miscellaneous Notes Received phone call from [...] Sam Beasley DPM documented in this encounter [facility] 04-01-2024 Telephone encounter Note Can we pull nick last cardiology visit and most recent echo/stress test/cath? He follows with [facility] ( I think) Thanks! Erin Frankel APRN.FUEL INJECTION SERVICER [facility] Work Phone: 03-30-2024 Telephone encounter Note Called patient to inform him of wound culture. Staph and pseudomonas growing. Is on augmentin. Will continue. Will call in cipro. Discussed risk of tendon rupture. Avoid strenous exercis. All questions answer. Patient satisifed with care Sam Beasley DPM [facility] 03-30-2024 Miscellaneous Notes Called patient to inform him of wound culture. Staph and pseudomonas growing. Is on augmentin. Will continue. Will call in cipro. Discussed risk of tendon rupture. Avoid strenous exercis. All questions answer. Patient satisifed with care Sam Beasley DPM documented in this encounter [facility] 03-29-2024 History of Present illness Narrative Radiology [...] PATIENT PRESENTS WITH AN IMPLANTABLE OR ATTACHED GED TEACHER: No RADIOLOGY DEPARTMENT: Ultrasound PERIPHERAL IV DATA: Not applicable SIGNED BY: Araseli Linda RDMS, RVT March 29, 2024 4:13 PM documented in this encounter [facility] 03-29-2024 Note HNO ID: [id number] Author: ARASELI LINDA RT(R) Service: ? Author [...] PATIENT PRESENTS WITH AN IMPLANTABLE OR ATTACHED GED TEACHER: No RADIOLOGY DEPARTMENT: Ultrasound PERIPHERAL IV DATA: Not applicable SIGNED BY: Araseli Linda RDMS, RVT March 29, 2024 4:13 PM [facility] 03-28-2024 History of Present illness Narrative [...] PATIENT PRESENTS WITH AN IMPLANTABLE OR ATTACHED GED TEACHER: No RADIOLOGY DEPARTMENT: General X-ray: Exam(s) Completed: Lower Extremity X-Ray(s): Knee, AP / Lat / Tunne / Merchant Left and Wt. Bearing and Tibia Fibula, Left PERIPHERAL IV DATA: Not applicable SIGNED BY: RT Mayra(R) March 28, 2024 7:10 PM documented in this encounter [facility] 03-28-2024 History of Present illness Narrative Patient [...] Fam hx-cardiovas dis NEC n/a father, of [place] at 45 Hypothyroid Other and unspecified hyperlipidemia [...] Ginger Lugo MD documented in this encounter [facility] 03-28-2024 History of Present illness Narrative [...] PATIENT PRESENTS WITH AN IMPLANTABLE OR ATTACHED GED TEACHER: No RADIOLOGY DEPARTMENT: General X-ray: Exam(s) Completed: Lower Extremity X-Ray(s): Toes, Right PERIPHERAL IV DATA: Not applicable SIGNED BY: RT Vargas(R) March 28, 2024 11:03 AM documented in this encounter [facility] 03-28-2024 Instructions Sienna Pina LPN - 03/28/2024 [...] as well if you have any questions/concerns [phone], ask for Podiatry Nurse documented in this encounter [facility] 03-28-2024 History of Present illness Narrative UNIVERSAL [...] Fam hx-cardiovas dis NEC n/a father, of [place] at 45 Hypothyroid Other and unspecified hyperlipidemia [...] Objective: Patient presents to clinic ambulating in [facility] Constitutional: Pt is a well [...] Sienna Pina LPN documented in this encounter [facility] 03-14-2024 Telephone encounter Note Needs seen by one of us or urgent care [facility] 03-14-2024 Miscellaneous Notes Needs seen by one of us or urgent care [place]: 10/30/23-CDIFF with PCP Yissel Correa MA documented in this encounter [facility] 03-14-2024 Telephone encounter Note [place]: 10/30/23-CDIFF with PCP Yissel Correa MA [facility] 02-11-2024 Telephone encounter Note Prescription Refill Information [...] Perez LPN February 11, 2024 9:17 AM [facility] 02-11-2024 Miscellaneous Notes Prescription Refill Information The [...] 2024 9:17 AM documented in this encounter [facility] 01-29-2024 Telephone encounter Note Patient reports sore [...] headaches. 8. : NA Protocols used: Sore [id number] [facility] 01-29-2024 Miscellaneous Notes Patient reports sore throat [...] headaches. 8. : NA Protocols used: Sore [id number] Left vm for patient to return call to triage nurse, for questions about his symptoms: cough, vomiting, sore throat. Patient scheduled an appt with Rodrigo Retana for 01-29-24 and may need a sooner appt. documented in this encounter [facility] 01-29-2024 Telephone encounter Note Left vm for patient to return call to triage nurse, for questions about his symptoms: cough, vomiting, sore throat. Patient scheduled an appt with Rodrigo Retana for 01-29-24 and may need a sooner appt. [facility] 01-20-2024 Telephone encounter Note Prescription Refill Information [...] Sy LPN January 20, 2024 9:08 AM [facility] 01-20-2024 Miscellaneous Notes Prescription Refill Information The [...] 2024 9:08 AM documented in this encounter [facility] 12-07-2023 Miscellaneous Notes Patient MyChart message requesting the following refill Refill(s) Requested: Requested Prescriptions Pending Prescriptions Disp Refills metoprolol succinate ER (TOPROL XL) 50 mg 24 hr tablet 90 tablet 3 Sig: Take 1 tablet by mouth once daily. ALLERGIES No Known Allergies (home) [phone] (work) [phone] (cell) Last Office Visit Date: 10/30/2023 Last [facility] Health Visit: Visit date not found Future Appointment: 01/15/2024 The patients preferred pharmacy has been captured for this encounter? yes Request is for script(s) to be escript to pharmacy. Linda Bullock LPN documented in this encounter [facility] 10-30-2023 History of Present illness Narrative Patient presents with: Hospital F/U HPI: Patient presents today for office visit for hospital follow up. Present to [facility] ER on 10/07/23 with chest pain. [...] Fam hx-cardiovas dis NEC n/a father, of [place] at 45 Hypothyroid Other and unspecified hyperlipidemia [...] Ginger Lugo MD documented in this encounter [facility] 10-29-2023 History of Present illness Narrative Nick [...] Diarrhea- Colonoscopy scheduled with Dr. Navarro at [facility] on 11/30/2023 at 10 AM. Abilio Gong CNP documented in this encounter [facility] 10-27-2023 Miscellaneous Notes Patient has [...] 10/30/2023 Please advise. Thank you. [facility] documented in this encounter [facility] 10-26-2023 Miscellaneous Notes Pt notified. He verbalized understanding. Ronnie Barrow LPN Let him know he has a slight anemia. May not be significant. Recheck labs in two weeks documented in this encounter [facility] 10-24-2023 History of Present illness Narrative Chief Complaint Patient presents with: Abdominal Pain Diarrhea HPI Nick Lopes is a 52 year old male who presents here today for abdominal pain and diarrhea. Pt was seen 10/16/23 by Hamilton Mosquera for hospital follow up from [facility] for chest pain and C-diff colitis. Heart cath was negative. Was treated for his positive c diff we had found when he was hospitalized at [facility]. They gave him vanco orally for [...] Fam hx-cardiovas dis NEC n/a father, of [place] at 45 Hypothyroid Other and unspecified hyperlipidemia [...] 09/25/2023 1.90 Monocytes % 09/25/2023 4.8 Abs [place] 09/25/2023 0.41 Eosinophils % 09/25/2023 1.9 Abs [...] Ginger Lugo MD documented in this encounter [facility] 10-21-2023 Miscellaneous Notes Pt's Alyson returned call. [...] am if he wants to come to [place] in am Please see notes below. Pt has been seen for diarrhea but is not resolving and having upper abd pain. Pt has an appt with a GI doctor in [place]. Dr. Alexander Navarro next the . Pt [...] written above. 12. : n/a Protocols used: [id number] documented in this encounter [facility] 10-21-2023 Miscellaneous Notes See triage note 10/21/23 documented in this encounter [facility] 10-21-2023 Miscellaneous Notes Pt returned call and is aware. Called and left a voicemail for the patient to call back and ask for a nurse to receive the providers message. Sent [employer] as well. Images from the original note were not included. Nuha Mosquera APRN.CNS P Wstr Fp Suppan Pool Please let pt. Know that C Difficile has resolved. documented in this encounter [facility] 10-20-2023 Miscellaneous Notes C. difficile PCR was negative. Nursing pool to let patient know. documented in this encounter [facility] 10-16-2023 Instructions Nuha Mosquera APRN.CNS - 10/16/2023 1:31 PM EST 1) Continue vancomycin through Thursday. 2) Bring stool specimen in on Thursday 3) Get GI appointment next week- prefers [facility] 4) Off work through next Thursday and this may change 5) Follow up in 3 month documented in this encounter [facility] 10-16-2023 History of Present illness Narrative This [...] Fam hx-cardiovas dis NEC n/a father, of IA at 45 Hypothyroid Other and unspecified hyperlipidemia [...] as needed for worsening/no improvement. Nuha Mosquera APRN.CIA AGENT The patient indicates understanding of these issues and agrees with the plan. documented in this encounter [facility] 10-09-2023 Discharge summary Note Date/Time October 09, 2023 2:20pm [facility] Medical Records Department [address] [place] [address] Discharge Summary 10/09/23 1420 MR#: [id number] Acct: [id number] Name: ROMEL LOPES Rep #:[id number] : 1970 52 From: Gerardo Watkins DO PCP: Dr. Ginger Lugo MD Status:ADM I NO Location: [place] [address] Providers Date of Admission: 10/07/23 Date of [...] was seen in the emergency room at [facility] with complaints of precordial chest pain, [...] % (Auto) 62.1, Lymph % (Auto) 27.9, Sierra % (Auto) 6.1, Eos % (Auto) 2.6, [...] (Appointment is Beau Mosquera [place]) Lebron Mackenzie PERCUSSION TUNER, PERCUSSION TUNER-C [Med Staff - Adv Practice Prof] - 11/09/23 10:00 am Disposition Disposition (needs filled in before D/C Order can be placed): Home, Self Care Charges/Coding Visit Charges Inpatient E&M: 55597 Disch Hosp >30min 10/09/23 1514 <Electronically signed by Gerardo Watkins DO> Cosigner Signature (if applicable): CC: Dr. Gerardo Watkins DO; Dr. Ginger Lugo MD~ Signed [facility] Work Phone: 1(394) 695-990802-02-2024 Discharge summary Author Gerardo Watkins [facility] October 09, 2023 2:19pm Note Date/Time October 09, 2023 2 :14pm [facility] Medical Records Department [address] [place] [address] Instructions for Home/Discharge Instructions 10/09/23 1413 MR#: [id number] Acct: [id number] Name: ROMEL OLPES Rep #:[id number] : 1970 52 From: Gerardo Watikns DO PCP: Dr. Ginger Lugo MD Status:ADM [...] - Within 1 Month Lebron Mackenzie NP, PERCUSSION TUNER-C [Med Staff - [facility] Practice Prof] - 11/09/23 10:00 am Disposition Disposition (needs filled in before D/C Order can be placed): Home, Self Care 10/09/23 1419<Electronically signed by Gerardo Watkins DO>Gerardo Watkins DO CC: Dr. Jude Mckeon MD; Dr. Ginger Lugo MD ~ Signed [facility] Work Phone: 1(162) 450-431702-02-2024 Procedure [facility] 10-08-2023 Progress note Author Gerardo Watkins [facility] October 08, 2023 7:00pm Note Date/Time October 08, 2023 7 :00pm [facility] Medical Records Department [address] [place] [address] [place] [address] Progress Note - Hospitalist 10/08/23 1857 MR#: [id number] Acct: [id number] Name: ROMEL LOPES Rep #:[id number] : 1970 52 From: Gerardo Watkins DO PCP: Dr. Ginger Lugo MD Status:ADM I NO Location: [place] [address] Reason for Visit Reason for Visit: Diagnoses [...] 35 minutes Charges/Coding Visit Charges Inpatient E&M: 84341 Subs Hosp L2 10/08/23 1900 <Electronically signed by Gerardo Watkins DO> Cosigner Signature (if applicable): CC: ~ Signed [facility] Work Phone: 1(114) 404-588902-01-2024 Consult note Author Jude Mckeon [facility] October 08, 2023 3:45pm Note Date/Time October 08, 2023 2 :09pm [facility] Medical Records Department [address] [place] [address] Consultation - Cardiology 10/08/23 1403 MR#: [id number] Acct: [id number] Name: ROMEL LOPES Rep #:[id number] : 1970 52 From: Jude Mckeon MD PCP: Dr. Ginger Lugo MD Status:ADM I NO Location: [place] [address] 1 Documented by User: Hanny VALENTIN, PA 10/08/23 14:19 Assessment & Plan Assessment/Plan (1) Chest pain: (2) History of coronary artery stent placement: (3) Essential hypertension: (4) Hyperlipidemia: HPI Consult Data Date of Consult: 10/08/23 HPI Narrative HPI Narrative: ROMEL LOPES is a 52 M who presented to [facility] ER on 10/07/23 with CP. He [...] a hx of HTN,HL, JOSIAH and DM. [facility] Medical History Anxiety Atherosclerosis of coronary artery of [place] heart without angina pectoris BiPAP (biphasic positive [...] is set up for tomorrow. Jude Mckeon MD,FAC,[facility] HPI Consult Data Date of Consult: 10/08/23 [facility] Medical History Anxiety Atherosclerosis of coronary artery of [place] heart without angina pectoris BiPAP (biphasic positive [...] Mckeon MD; Dr. Ginger Lugo MD~ Signed [facility] Work Phone: 1([phone]) 675-243902-01-2024 History and physical note Author Gerardo Watkins [facility] October 08, 2023 1:05pm Note Date/Time October 08, 2023 1 2:58pm [facility] Medical Records Department [address] [place] [address] H&P Exam - Hospitalist 10/08/23 1254 MR#: [id number] Acct: [id number] Name: ROMEL LOPES Rep #:[id number] : 1970 52 From: Gerardo Watkins DO PCP: Dr. Ginger Lugo MD Status:ADM I NO [facility] HPI - General General Date of Admission: 10/07/23 Date of Service: 10/07/23 Chief Complaint: Chest pain HPI Narrative ROMEL LOPES, is a 52 M who presents to the emergency room at [facility] with complaints of substernal chest pain [...] will be seen in consultation by cardiology. [facility] Medical History Anxiety Atherosclerosis of coronary artery of [place] heart without angina pectoris BiPAP (biphasic positive [...] 55 minutes Charges/Coding Visit Charges Inpatient E&M: 19254 Init Hosp L2 10/08/23 1305 <Electronically signed by Gerardo Watkins DO> Cosigner Signature (if applicable): CC: Dr. Gerardo Watkins DO; Dr. Ginger Lugo MD~ Signed [facility] Work Phone: 1(755) 322-175402-01-2024 Miscellaneous Notes* Telephone Encounter - Marilu Sanchez [...] know if he was admitted-was sent to [facility] ER [facility] Discharge summary Author Remus Ungur [facility] October 07, 2023 3:56pm Note Date/Time October 07, 2023 9 :21am [facility] Medical Records Department [address] [place] [address] Emergency Department Summary 10/07/23 MR#: [id number] Acct: [id number] Name: ROMEL LOPES Rep #:[id number] : 1970 52 From: Fernandez Bryant DO PCP: Dr. Ginger Lugo MD Status:ADM I NO Location: [place] [address] HPI History of Present Illness Chief Complaint: [...] in the office. Patient takes daily Plavix. [facility] Medical History Anxiety Atherosclerosis of coronary artery of [place] heart without angina pectoris BiPAP (biphasic positive [...] line established on arrival. Patient placed on telephonic nurse case manager. His PCP gave him 4 baby aspirin. [...] (Auto) 71.4 H Lymph % (Auto) 19.8 Sierra % (Auto) 5.4 Eos % (Auto) 2.4 [...] Chest pain Disposition Disposition: Acute Care Hospital [facility] Discharge Date/Time: 10/07/23 11:36 What to do if you have Problems For any increased pain, shortness of breath, bleeding, nausea or vomiting, chestpain, or any unexpected problems, contact your Primary Care Provider. Call [facility] ([phone]) or report to the closest Emergency Room. Call 911 if necessary. 10/07/23 1556 <Electronically signed by Fernandez Bryant DO> Cosigner Signature (if applicable): CC: Dr. Ginger Lugo MD ~ Signed [facility] Work Phone: [phone]) 782-486111-13-2023 Miscellaneous Notes* Telephone Encounter - Elyse Seals [...] 07/24/23 Elyse Seals MA documented in this encounter[facility]23 Miscellaneous Notes* Telephone Encounter - Pat Tse LPN - 07/04/2023 8:16 AM EDT [facility]-03/30/23 Labs-03/30/23 NOV-07/24/23 documented in this encounterOhio[facility] History of Present illness NarrativePatient is here for 1 week f/u w/ PSA. Most recent PSA was 0.19 on 04/29. He was seen last week for ER f/u. CT was done 10/07/22 and was normal from standpoint. CT [facility] showed mild perinephricstranding but no stones or obstruction. .Urine cx was sent last week that did come back positive. .He was given Augmentin on Thursday for a positive Cx and feels much better...ED is mild..[facility] Work Phone: 1(223) 553-423807-24-2023 History of Present illness Narrative* Ginger Lugo MD - 03/30/2023 9:23 AM EDT No chief complaint on file. HPI: Patient presents today for office visit for follow up. HOSPITAL/ER FOLLOW UP: Reason for visit: fever, abd pain Which facility: [facility] Date of visit: 03/18/23 Discharge: 03/22/23 [...] Fam hx-cardiovas dis NEC n/a father, of [place] at 45 Hypothyroid Other and unspecified hyperlipidemia [...] stable. Ginger Lugo MD documented in this encounter[facility]23 Discharge summary Author Artem Gonzales [facility] March 22, 2023 10:19am Note Date/Time March 22, 2023 10:1 5am [facility] Medical Records Department [address] [place] [address] Discharge Summary 03/22/23 0732 MR#: [id number] Acct: [id number] Name: ROMEL LOPES Rep #:[id number] : 1970 52 From: Artem Little PCP: Dr. Ginger Lugo MD Status:ADM I N Location: [place] [address] Providers Date of Admission: 03/18/23 Primary Care [...] until 03/29/2023 as recommended by infectious disease financial consultant. Patient not able to go take [...] weekly bmp, cbc, and LFT. Fax to [phone] sennosides-docusate sodium [Stool Softener-Stimulant Laxat] 8.6-50 mg [...] 3 days. Referrals / Follow Up: [facility] [Other] - 03/23/23 12:00 pm Harpreet Viramontes MD [Med Staff - Active Staff] - Within 2 Weeks Sen Guzman MD [Med Staff - Active Staff] - Within 1 Month (as needed for pyelonephritis/UTI.) Disposition Disposition (needs filled in before D/C Order can be placed): Home, Self Care Charges/Coding Visit Charges Inpatient E&M: 35967 Disch Hosp >30min 03/22/23 1019 <Electronically signed by Artem Gonzales MD> Cosigner Signature (if applicable): CC: Dr. Artem Gonzales MD; Dr. Ginger Lugo MD~ Signed [facility] Work Phone: [phone]) 504-466507-16-2023 Discharge summary Author Artem Gonzales [facility] March 22, 2023 7:32am Note Date/Time March 22, 2023 7:29 am [facility] Medical Records Department [address] [place] [address] Instructions for Home/Discharge Instructions 03/22/23 0728 MR#: [id number] Acct: [id number] Name: ROMEL LOPES Rep #:[id number] : 1970 52 From: Artem Little PCP: [...] weekly bmp, cbc, and LFT. Fax to [phone] sennosides-docusate sodium [Stool Softener-Stimulant Laxat] 8.6-50 mg [...] MD; Dr. Ginger Lugo MD ~ Signed [facility] Work Phone: [phone]) 871-652207-15-2023 Progress note Author [facility] March 21, 2023 1:24pm Note Date/Time March 21, 2023 1:24 pm [facility] Medical Records Department [address] [place] [address] Progress Note - Hospitalist 03/21/23 0806 MR#: [id number] Acct: [id number] Name: ROMEL LOPES Rep #:[id number] : 1970 52 From: Artem Little PCP: Dr. Ginger Lugo MD Status:ADM I N Location: [place] [address] Reason for Visit Reason for Visit: Diagnoses [...] Neut % (Auto) 65.2, Lymph % (Auto) 21.0,Sierra % (Auto) 11.5 H, Eos % (Auto) [...] obstructive uropathy. Charges/Coding Visit Charges Inpatient E&M: 23754 Subs Hosp L2 03/21/23 1324 <Electronically signed by Artem Gonzales MD> Cosigner Signature (if applicable): CC: ~ Signed [facility] Work Phone: [phone]) 856-569107-14-2023 Progress note Author Artem Gonzales [facility] March 20, 2023 1:22pm Note Date/Time March 20, 2023 9:26 am [facility] Medical Records Department [address] [facility] [address] Progress Note - Hospitalist 03/20/2325 MR#: [id number] Acct: [id number] Name: ROMEL LOPES Rep #:[id number] : 1970 52 From: Artem Little PCP: Dr. Ginger Lugo MD Status:ADM I N Location: [place] [address] Reason for Visit Reason for Visit: Diagnoses [...] 76.9 H, Lymph % (Auto) 11.8 L, Sierra % (Auto) 10.2 H, Eos % (Auto) [...] Neut % (Auto) 65.3, Lymph % (Auto) 20.9,Sierra % (Auto) 12.1 H, Eos % (Auto) [...] obstructive uropathy. Charges/Coding Visit Charges Inpatient E&M: 90702 Subs Hosp L2 03/20/23 1322 <Electronically signed by Artem Gonzales MD> Cosigner Signature (if applicable): CC: ~ Signed [facility] Work Phone: [phone]) 586-245407-14-2023 Consult note Author Sen Guzman [facility] March 20, 2023 11:39am Note Date/Time March 20, 2023 11:3 9am [facility] Medical Records Department [address] [place] [address] Consultation - Infectious Dx 03/20/23 1134 MR#: [id number] Acct: [id number] Name: ROMEL LOPES Rep #:[id number] : 1970 52 From: Sen crawford MD PCP: Dr. Ginger Lugo MD Status:ADM I N Location: [place] [address] Assessment & Plan Assessment/Plan (1) Pyelonephritis: PLAN: Ucx with esbl ecoli. Now on meropenem, feeling better. Will d/c ceftriaxone order. Plan for discharge will be 9 more days IM ertapenem, [facility] Will [facility], thank you (2) Infection due [...] performed and neg except as noted above. [facility] Medical History Anxiety Atherosclerosis of coronary artery of [place] heart without angina pectoris BiPAP (biphasic positive [...] Neut % (Auto) 65.3, Lymph % (Auto) 20.9,Sierra % (Auto) 12.1 H, Eos % (Auto) [...] Guzman MD; Dr. Ginger Lugo MD~ Signed [facility] Work Phone: [phone]) 577-942907-13-2023 Progress note Author [facility] March 19, 2023 1:59pm Note Date/Time March 19, 2023 9:44 am [facility] Medical Records Department [address] [place] [address] Progress Note - Hospitalist 03/19/23 0940 MR#: [id number] Acct: [id number] Name: ROMEL LOPES Rep #:[id number] : 1970 52 From: Artem Little PCP: Dr. Ginger Lugo MD Status:ADM I N Location: [place] [address] Reason for Visit Reason for Visit: Diagnoses [...] obstructive uropathy. Charges/Coding Visit Charges Inpatient E&M: 74386 Subs Hosp L2 03/19/23 6736 <Electronically signed by Artem Gonzales MD> Cosigner Signature (if applicable): CC: ~ Signed [facility] Work Phone: 1(774) 222-855307-12-2023 Consult note Author Harpreet Viramontes [facility] March 18, 2023 3:24pm Note Date/Time March 18, 2023 3:24 pm [facility] Medical Records Department [address] [place] [address] Consultation - Urology 03/18/23 1521 MR#: [id number] Acct: [id number] Name: ROMEL LOPES Rep #:[id number] : 1970 52 From: Harpreet Viramontes MD PCP: Dr. Ginger Lugo MD Status:ADM I N Location: [place] [address] Assessment & Plan Assessment/Plan (1) Pyelonephritis: PLAN: [...] does have multiple medical problems as well. [facility] Medical History Anxiety Atherosclerosis of coronary artery of [place] heart without angina pectoris BiPAP (biphasic positive [...] 84.4 H, Lymph % (Auto) 6.4 L, Sierra % (Auto) 8.2, Eos % (Auto) 0.0, [...] Clarity Cloudy, Urine pH 5.0, Ur Specific [place] 1.020, Urine Protein 500 H, Urine Glucose [...] (Auto) 79.3 H, Lymph % (Auto)8.9 L, Sierra % (Auto) 10.8 H, Eos % (Auto) [...] CC: Dr. Hiral Rodriguez MD; Dr. Harpreet Viarmontes MD; Dr. Ginger Lugo MD~ Signed [facility] Work Phone: 1(116) 149-440907-12-2023 Progress note Author Artem Gonzales [facility] March 18, 2023 2:25pm Note Date/Time March 18, 2023 8:16 am [facility] Medical Records Department [address] [place] [address] Progress Note - Hospitalist 03/18/23 0807 MR#: [id number] Acct: [id number] Name: ROMEL LOPES Rep #:[id number] : 1970 52 From: Artem Little PCP: Dr. Ginger Lugo MD Status:ADM I N Location: [place] [address] Reason for Visit Reason for Visit: Diagnoses [...] 84.4 H, Lymph % (Auto) 6.4 L, Sierra % (Auto) 8.2, Eos % (Auto) 0.0, [...] Clarity Cloudy, Urine pH 5.0, Ur Specific [place] 1.020, Urine Protein 500 H, Urine Glucose [...] (Auto) 79.3 H, Lymph % (Auto)8.9 L, Sierra % (Auto) 10.8 H, Eos % (Auto) [...] tobacco use: Encourage continued tobacco cessation. #12. JSOIAH: BIPAP q HS. #13. DVT prophylaxis: Heparin. [...] obstructive uropathy. Charges/Coding Visit Charges Inpatient E&M: 47653 Subs Hosp L2 03/18/23 0578 <Electronically signed by Artem Gonzales MD> Cosigner Signature (if applicable): CC: ~ Signed [facility] Work Phone: [phone]) 758-522007-12-2023 History and physical note Author Hiral Rodriguez [facility] March 18, 2023 1:48am Note Date/Time March 18, 2023 12:3 9am [facility] Medical Records Department [address] [place] [address] H&P Exam - Hospitalist 03/18/23 0033 MR#: [id number] Acct: [id number] Name: ROMEL LOPES Rep #:[id number] : 1970 52 From: Hiral Rodriguez MD PCP: Dr. Ginger Lugo MD Status:ADM I N Location: [place] [address] HPI - General General Date of Admission: 03/18/23 Date of Service: 03/18/23 Chief Complaint: Abdominal pain, flank pain, N/V HPI Narrative The patient is a 52 y/o M w/ PMHx: Anxiety and Depression, Morbid Obesity, Hypothyroidism, CAD status post PCI, HTN, HLD, JOSIAH on BIPAP, Depression and Anxiety, Former tobacco use, Diabetes mellitus type II who presents to the [facility] ED on 03/18/23 with history of [...] the ED included CBC with WBC 18.7, bvqlqpykby80.5, platelet 219 with left shift, CMP with sodium 131, potassium 3.4, jykprllr12, BUN/creat 19/1.88, glucose 143, hepatic profile not [...] but is pending upon evaluation of patient. [facility] Medical History Anxiety Atherosclerosis of coronary artery of [place] heart without angina pectoris BiPAP (biphasic positive [...] 84.4 H, Lymph % (Auto) 6.4 L, Sierra % (Auto) 8.2, Eos % (Auto) 0.0, [...] Clarity Cloudy, Urine pH 5.0, Ur Specific [place] 1.020, Urine Protein 500 H, Urine Glucose [...] mellitus type II who presents to the [facility] ED on 03/18/23 with history of [...] 75 minutes. Charges/Coding Visit Charges Inpatient E&M: 95921 Init Hosp L3 03/18/23 0148 <Electronically signed by Hiral Rodriguez MD> Cosigner Signature (if applicable): CC: Dr. Hiral Rodriguez MD; Dr. Ginger Lugo MD~ Signed [facility] Work Phone: 1(140) 778-603007-12-2023 Discharge summary Author Porter Banuelos [facility] March 18, 2023 12:31am Note Date/Time March 17, 2023 11:5 4pm [facility] Medical Records Department [address] [place] [address] Emergency Department Summary 03/17/23 MR#: [id number] Acct: [id number] Name: ROMEL LOPES Rep #:[id number] : 1970 52 From: Porter Banuelos DO PCP: Dr. Ginger Lugo MD Status:ADM I N Location: [place] [address] HPI History of Present Illness Chief Complaint: [...] he has not had a bowel movement. [facility] Medical History Anxiety Atherosclerosis of coronary artery of [place] heart without angina pectoris BiPAP (biphasic positive [...] 84.4 H Lymph % (Auto) 6.4 L Sierra % (Auto) 8.2 Eos % (Auto) 0.0 [...] Clarity Cloudy Urine pH 5.0 Ur Specific [place] 1.020 Urine Protein 500 H Urine Glucose [...] your Primary Care Provider. Call [facility] ([phone]) or report to the closest Emergency Room. Call 911 if necessary. 03/18/23 0031 <Electronically signed by Porter Banuelos DO> Cosigner Signature (if applicable): CC: Dr. Ginger Lugo MD ~ Signed [facility] Work Phone: 1([phone]) 588-237607-11-2023 Miscellaneous Notes* Telephone Encounter - Hanny Mcneal RN - 03/17/2023 5:22 PM EDT spouse returned call and appt noteds updated * Telephone Encounter - Larissa Rain LPN - 03/17/2023 4:10 PM EDT Patient scheduled appt for this evening via [employer] and only notes state sick. Requesting patientto return call or message via [employer] more detailed report of complaint. documented in this encounter[facility]23 Discharge summary Author Porter Banuelos [facility] March 18, 2023 12:31am Note Date/Time March 17, 2023 11:5 4pm [facility] Medical Records Department [address] [place] [address] Emergency Department Summary 03/17/23 MR#: [id number] Acct: [id number] Name: ROMEL LOPES Rep #:[id number] : 1970 52 From: Porter Banuelos DO PCP: Dr. Ginger Lugo MD Status:ADM I N Location: [place] [address] HPI History of Present Illness Chief Complaint: [...] he has not had a bowel movement. [facility] Medical History Anxiety Atherosclerosis of coronary artery of [place] heart without angina pectoris BiPAP (biphasic positive [...] 84.4 H Lymph % (Auto) 6.4 L Sierra % (Auto) 8.2 Eos % (Auto) 0.0 [...] Clarity Cloudy Urine pH 5.0 Ur Specific [place] 1.020 Urine Protein 500 H Urine Glucose [...] your Primary Care Provider. Call [facility] ([phone]) or report to the closest Emergency Room. Call 911 if necessary. 03/18/23 0031 <Electronically signed by Porter Banuelos DO> Cosigner Signature (if applicable): CC: Dr. Ginger Lugo MD ~ Signed [facility] Work Phone: [phone]) 172-830406-29-2023 Discharge summary Author Tye Juarez [facility] March 05, 2023 1:05am Note Date/Time March 04, 2023 10:2 0pm [facility] Medical Records Department [address] [place] [address] Emergency Department Summary 03/04/23 MR#: [id number] Acct: [id number] Name: ROMEL LOPES Rep #:[id number] : 1970 52 From: Tye Juarez MD [...] MD) Anxiety Atherosclerosis of coronary artery of [place] heart without angina pectoris BiPAP (biphasic positive [...] 83.6 H Lymph % (Auto) 10.3 L Sierra % (Auto) 5.1 Eos % (Auto) 0.2 [...] Clarity Clear Urine pH 5.0 Ur Specific [place] 1.025 Urine Protein 100 H Urine Glucose [...] rate of 102. No acute signs of IA or ischemia. Discharge Plan Triage Chief Complaint: [...] your Primary Care Provider. Call [facility] ([phone]) or report to the closest Emergency Room. Call 911 if necessary. 03/05/23 0105 <Electronically signed by Tye Juarez MD> Cosigner Signature (if applicable): CC: Dr. Ginger Lugo MD ~ Signed [facility] Work Phone: [phone] Miscellaneous Notes* Telephone Encounter - Ronnie Barrow LPN - 11/24/2022 9:53 AM EDT Patient phones requesting refills as follows: Requested Prescriptions Pending Prescriptions Disp Refills dulaglutide (TRULICITY) 0.75 mg/0.5 mL pen injector 4 Each 5 Sig: Inject 0.75 mg subcutaneously one time a week. [facility] 10/30/22 NOV 01/22/23 Please review and advise. 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 Danielle Mann LPN documented in this encounterOhiohealth [facility]02-18-[address] Patton [facility] October 25, 2022 10:26am Note Date/Time October 25, 2022 10:26am [facility] Medical Records Department [address] [place] [address] Progress Note - Cardiology 10/25/22 1023 MR#: [id number] Acct: [id number] Name: RMOEL LOPES Rep #:[id number] : 1970 51 From: Ashley Patton MD PCP: Dr. Ginger Lugo MD Status:ADM I NO Location: [place] [address] Subjective Subjective Denies any complaints. Ambulating. No [...] GFR (MDRD) Non-Af 99, BUN/Creatinine Ratio 18.5, Nvetqem812 H, Calcium 8.8, Total Bilirubin 0.40, AST [...] Cosigner Signature (if applicable): CC: ~ Signed [facility] Work Phone: [phone]) 810-472202-17-[address] Patton [facility] October 24, 2022 3:54pm Note Date/Time October 24, 2022 3:54pm [facility] Medical Records Department [address] [place] [address] Instructions for Home/Discharge Instructions 10/24/22 1552 MR#: [id number] Acct: [id number] Name: ROMEL LOPES Rep #:[id number] : 1970 51 From: Ashley Patton MD [...] CC: Dr. Ginger Lugo MD ~ Signed [facility] Work Phone: [phone]) 843-344802-01-2023 Evaluation note* Diagnosis Onset Date Resolution Status Chest pain acute Diabetes acute History of coronary artery disease acute History of coronary artery stent placement October, acute Essential hypertension chron ic Hyperlipidemia chronic [facility] Work Phone: 1(628) 866-565702-01-2023 History of Present illness Narrative* Ginger Lugo MD - 10/08/2022 9:04 AM EST Patient presents with: ER F/U HPI: Patient presents today for office visit for ER F/U. [facility] ER 10/07/22. Transported via EMS after syncopal [...] Fam hx-cardiovas dis NEC n/a father, of [place] at 45 Hypothyroid Other and unspecified hyperlipidemia [...] given hx. Will get old records from [facility]. - CONSULT TO CARDIOLOGY 6. Family history of heart disease - ICD9: V17.49, ICD10: Z82.49 - CONSULT TO CARDIOLOGY Ginger Lugo MD documented in this encounterOhiohealth [facility]01-31-[facility]23 History of Present illness NarrativePatient is here for kidney stone and pyelonephritis..Patient was in [facility], was treated with IV antibiotics and IM injections after discharge..States is feeling better..CT was done 10/07/22 and was normal from standpoint. CT at [facility] showed mild perinephric stranding but no stones or o bstruction. ..Chronic BPH with LUTs, sx are mild and stable..No dysuria, No hematuria since discharged from [facility]..Nocturia x 1-2, depending on fluid intake..ED is mild.. No PSA.[id number] 232 DO Work Phone: 1([phone]) 204-384801-31-2023 History of Present illness NarrativePatient is here for kidney stone and pyelonephritis..Patient was in [facility], was treated with IV antibiotics and IM injections after discharge..States is feeling better..CT was done 10/07/22 and was normal from standpoint. CT at [facility] showed mild perinephric stranding but no stones or obstruction. ..Chronic BPH with LUTs, sx are mild and stable..No dysuria, No hematuria since discharged from [facility]..Nocturia x 1-2, depending on fluid intake..ED is mild.. No PSA.[facility] Work Phone: [phone] Miscellaneous Notes* Telephone Encounter - Nuha Perez [...] you. Nuha Perez LPN documented in this encounterOhiohealth Van W[facility] Hospital01-31-2023 Miscellaneous Notes* Telephone Encounter - Marilu Sanchez [...] patient. Marilu Sanchez Ma documented in this encounterOhiohealth Van Wert Hospital12-22-2022 History of Present illness Narrative* Nadege Christine PA-C - 08/28/2022 10:40 AM EST Audio only was used for evaluation of this patient. Location of patient: [place] Patient was offered a virtual/telemedicine appointment in [...] Fam hx-cardiovas dis NEC n/a father, of [place] at 45 Hypothyroid Other and unspecified hyperlipidemia [...] Mellitus Type 2, Controlled, Without Complications ([facility]) Obesity, Class Iii, Bmi 40-49.9 (Morbid Obesity) ([facility]) Situational Stress Theo (Generalized Anxiety [...] review. Nadege Christine PA-C documented in this encounterOhiohealth Van Wert Hospital11-01-2022 Miscellaneous Notes* Telephone Encounter - Nadege Christine PA-C - 07/08/2022 2:22 PM EDT Please advise blood sugar was 74- nondiabetic range but hgba1c was set ahead for 3 months by accident. I need the hgba1c if he could stop levar n get it done- my apologies. Non-fasting is fine. Get Medical Advice on 07/07/22 HGB A1C Thanks, Mac Christine PA-C documented in this encounterOhiohealth Van Wert Hospital10-21-2022 Instructions* Patient Instructions* Nadege Christine PA-C - 06/27/2022 10:35 AM EDT Use Mycolog cream twice a day as directed for 2 weeks or until burning and itching improve, then swith to Lotrimen cream twice a day as directed (over the counter) until every trace of skin rash or peeling is gone. 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 - LDL goal of <100 - anticipate addition semaglutide pending lab results. Will d/c metformin due diarrhea 5. Central sleep apnea - ICD9: 780.57, ICD10: G47.31 compliant - CPAP DEVICE, WITH HUMIDIFIER 6. OJSIAH (obstructive sleep apnea) - ICD9: 327.23, ICD10: [...] today Nadege Christine PA-C documented in this encounterOhiohealth Van Wert Hospital10-12-2022 Miscellaneous Notes* Telephone Encounter - Kylie Tran - 06/18/2022 8:40 AM EDT Faxed to [employer]. Kylie Tran * Telephone Encounter - Ginger Lugo MD - 06/12/2022 3:41 PM EDT written * Telephone Encounter - Edna Saucedo [facility] - 06/12/2022 1:14 PM EDT Nick Loeps is a patient of Ginger Lugo MD today spouse, Liliana called to request orders are placed for C-Pap supplies; he needs chin strap and mask. She will find out where the order needs to be faxed to and call back. Patient has been identified by name and birthdate. Duration of symptoms: N/A Person calling: Liliana Call patient at: on cell [phone] (home) [phone] (work) [phone] (cell) Was an appointment scheduled: No Closing statement: Results or non-symptom based questions: Thank you for calling [facility], your call will be returned within the next business day. Edna Saucedo Pss documented in this encounterOhiohealth Van Wert Hospital10-11-2022 History of Present illness Narrative* Vanda Contreras Ma - 06/17/2022 10:20 AM EDT NO show letter mailed to pt. Vanda Contreras Ma * Nadege Christine PA-C - 06/17/2022 9:00 AM EDT No show. Mac Christine PA-C documented in this encounterOhiohealth Van Wert Hospital10-06-2022 Miscellaneous Notes* Telephone Encounter - Edna Saucedo [...] patient. Edna Saucedo Pss documented in this encounterOhiohealth Van Wert Hospital05-23-2022 Miscellaneous Notes* Telephone Encounter - Danielle Mann LPN - 01/27/2022 9:16 AM EDT called in and states she booked apt with pcp because he was to [facility] yesterday 01-26-22 and was to be seen today. Dr. Lugo reviewed ER report and is advising pt contact the place that he was referred [facility] by [facility] because he is going to need referred to ortho and he would be much better served by them. I notified and apt in office today has been cancelled. Danielle Mann LPN documented in this encounterOhiohealth Van Wert Hospital04-12-2022 Miscellaneous Notes* Telephone Encounter - Marilu Sanchez Ma - 2021 1:25 PM EDT notified of letter ready at med recs * Telephone Encounter - Danielle Mann LPN - 2021 11:43 AM EDT calling to check status. 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 Call [phone] Danielle Mann LPN * Telephone Encounter - Marilu Sanchez Ma - 2021 11:25 AM EDT Placed on desk for signature * Telephone Encounter - Ginger Lugo MD - 12/16/2021 12:19 PM EDT Printed. * Telephone Encounter - Vanda Contreras Ma - 12/16/2021 10:29 AM EDT See pt message and advise. Vanda Contreras Ma documented in this encounterOhiohealth Van Wert Hospital04-10-2022 History of Present illness Narrative* Extended time required for all activities d/t increased pain 4/10 and decreased ROM of LUE/shoulder. * Patient was able to complete today's treatment with some difficulty. [facility] Work Phone: [phone]) 294-778904-05-2022 Miscellaneous Notes* Telephone Encounter - Jyoti Somers [...] medications? Missed any doses? documented in this encounterOhiohealth Van Wert Hospital04-04-2022 History of Present illness Narrative* Ginger Lugo [...] toradol. Is going to see ortho in [place]. Has to call to get time. Needs [...] Fam hx-cardiovas dis NEC n/a father, of [place] at 45 Hypothyroid Other and unspecified hyperlipidemia [...] three months and prn. documented in this encounterOhiohealth Van Wert Hospital04-04-2022 Miscellaneous Notes* Telephone Encounter - Marilu Sanchez Ma - 12/09/2021 8:58 AM EDT Pt is already scheduled documented in this encounterOhiohealth Van Wert Hospital03-29-2022 History of Present illness Narrative* Karen Block [...] 03, 2021 10:01 AM documented in this encounterOhiohealth Van Wert Hospital03-25-2022 Miscellaneous Notes* Telephone Encounter - Cynthia Watson [...] notify patient. Cynthia Watson documented in this encounterOhiohealth Van Wert Hospital02-09-2021 History of Present illness Narrative* Karen Block [...] 16, 2020 11:30 AM documented in this encounterOhiohealth Van W[facility] Hospital10-07-2015 History of Past illness Narrative* Problem [...] of this encounter (statuses as of 11/29/2021) [facility] of [facility] Narrative* Problem [...] of this encounter (statuses as of 12/09/2021) [facility] Narrative* Problem [...] of this encounter (statuses as of 12/09/2021) [facility] of [facility] Narrative* Problem Noted Date Resolved Date Frequency 06/13/2015 04/23/2018 Urgency of urination 06/13/2015 04/23/2018 Concussion without loss of consciousness 015 04/23/2018 Backache, unspecified 11/11/2012 12/14/2013 Sprain of lumbar region 10/18/2012 12/15/19 14 Thoracic or Lumbosacral Neuritis or Radiculitis, Unspecified 02/23/2009 12/14/2013 Overview: Dr. Holilns -- epidurals x 3 Summer 2008 Routine [...] of this encounter (statuses as of 12/10/2021) [facility] of [facility] Narrative* Problem [...] of this encounter (statuses as of 2021) [facility] Narrative* Problem [...] of this encounter (statuses as of 01/27/2022) [facility] Narrative* Problem [...] of this encounter (statuses as of 03/15/2022) [facility] Narrative* Problem [...] of this encounter (statuses as of 06/12/2022) [facility] Narrative* Problem [...] of this encounter (statuses as of 06/17/2022) [facility] Narrative* Problem Noted Date Resolved Date Frequency 06/13/2015 04/23/2018 Urgency of urination 06/13/2015 04/23/2018 Concussion without loss of consciousness 015 04/23/2018 Backache, unspecified 11/11/2012 12/14/2013 Sprain of lumbar region 10/18/2012 12/15/19 14 Thoracic or Lumbosacral Neuritis or Radiculitis, Unspecified 02/23/2009 12/14/2013 Overview: Dr. Hollins -- epidurals x 3 Summer 2008 Routine General Medical Exam ination at a [facility] 01/02/2009 12/14/2013 Overview: 09/28/06 Pain in joint, pelvic region and thigh 8 01/02/2009 Sprain of lumbar region 06/27/2008 01/03/20 09 Pain in joint, upper arm 06/27/2008 008 Pain in joint, shoulder region 06/27/2008 0 01/02/2009 Other affections of shoulder region, not elsewhere classified 01/27/2007 01/02/2009 documented as of this encounter (statuses as of 06/18/2022) [facility] Narrative* Problem [...] of this encounter (statuses as of 06/28/2022) [facility] Narrative* Problem [...] of this encounter (statuses as of 07/08/2022) [facility] Narrative* Problem [...] of this encounter (statuses as of 08/29/2022) [facility] Narrative* Problem [...] of this encounter (statuses as of 10/07/2022) [facility] Narrative* Problem [...] of this encounter (statuses as of 10/08/2022) [facility] Narrative* Problem [...] of this encounter (statuses as of 10/30/2022) [facility] Narrative* Problem [...] of this encounter (statuses as of 11/08/2022) [facility] Narrative* Problem [...] of this encounter (statuses as of 11/18/2022) [facility] N[facility]* Problem [...] of this encounter (statuses as of 11/24/2022) [facility]ative* Problem [...] of this encounter (statuses as of 03/18/2023) [facility] Narrative* Problem [...] of this encounter (statuses as of 03/30/2023) [facility] Narrative* Problem [...] of this encounter (statuses as of 07/04/2023) [facility] Narrative* Problem [...] of this encounter (statuses as of 07/20/2023) [facility]arr[facility]* Problem [...] of this encounter (statuses as of 10/08/2023) [facility] Narrative* Problem [...] of this encounter (statuses as of 10/19/2023) [facility] Narrative* Problem [...] of this encounter (statuses as of 10/20/2023) [facility] Narrative* Problem [...] of this encounter (statuses as of 10/21/2023) [facility] Narrative* Problem [...] of this encounter (statuses as of 10/21/2023) [facility]* Problem [...] of this encounter (statuses as of 10/21/2023) [facility]* Problem [...] of this encounter (statuses as of 10/24/2023) [facility]* Problem [...] of this encounter (statuses as of 10/26/2023) [facility]ative* Problem [...] of this encounter (statuses as of 10/27/2023) [facility]ative* Problem [...] of this encounter (statuses as of 10/30/2023) [facility]* Problem Noted Date Diagnosed Date Resolved Date Frequency 06/13/2015 04/23/2018 Urgency of urination 06/13/2015 018 Concussion without loss of consciousness 05/08/2015 04/23/2018 Backache, unspecified 11/11/20122013 Sprain of lumbar region 10/18/201205/2014 Thoracic or Lumbosacral Neur itis or Radiculitis, Unspecified 02/23/2009 12/14/2013 Overview: Dr. Hollins -- epidurals x 3 Summer 2008 Routine General Medical Exam ination at a [facility] 01/02/2009 12/14/2013 Overview: 09/28/06 Pain in joint, pelvic region and thigh 06/27/2008 01/02/2009 Sprain of lumbar region 06/27/200812/07 Pain in joint, upper arm 06/27/2008 Pain in joint, shoulder region 06/27/2008 01/02/2009 Other affections of shoulder region, not elsewhere classified 01/27/2007 01/02/2009 Overweight 09/25/2023 documented as of this encounter (statuses as of 12/07/2023) [facility] [place] [facility]* Diagnosis Essential hypertension, benign Disorder of thyroid Unspecified disorder of thyroid Hyperlipidemia, unspecified hyperlipidemia type documented in this encounter [facility] [place] [facility]* Diagnosis Prepatellar bursitis of right knee- Primary Prepatellar bursitis Hypothyroidism, unspecified type Controlled type 2 diabetes mellitus without complication, without long-term current use of insulin (HCC) Hyperlipidemia, unspecified hyperlipidemia type Essential hypertension, benign documented in this encounter [facility]* Diagnosis Hyperlipidemia, unspecified hyperlipidemia type- Primary Hypothyroidism, unspecified type Controlled type 2 diabetes mellitus without complication, without long-term current use of insulin (HCC) documented in this encounter [facility] [place] [facility]* Diagnosis Essential hypertension, benign Hyperlipidemia, unspecified hyperlipidemia type Disorder of thyroid Unspecified disorder of thyroid Controlled type 2 diabetes mellitus without complication, without long-term current use of insulin (HCC) documented in this encounter [facility] [place] [facility]* Diagnosis Wellness examination- Primary Essential hypertension, [...] No-show for appointment documented in this encounter [facility] [place] [facility]* Diagnosis JOSIAH (obstructive sleep apnea)- Primary Obstructive sleep apnea (adult) (pediatric) documented in this encounter [facility] [place] [facility]* Diagnosis Wellness examination- Primary Essential hypertension, [...] in cervical region documented in this encounter [facility] [place] [facility]* Diagnosis Controlled type 2 diabetes mellitus without complication, without long-term current use of insulin (HCC)- Primary documented in this encounter [facility] [place] [facility]* Diagnosis Acute upper respiratory infection- Primary Acute upper respiratory infections of unspecified site documented in this encounter [facility] [place] [facility]* Diagnosis Chest pain, unspecified type- Primary Essential hypertension, benign Controlled type 2 diabetes mellitus without complication, without long-term current use of insulin (HCC) Hypothyroidism, acquired Unspecified hypothyroidism Syncope, unspecified syncope type Family history of heart disease Family history of other cardiovascular diseases documented [facility] this [facility] [place] [facility]* Diagnosis Onset Date Resolution Status Chest pain acute Syncope and collapse acute Essential hypertension chron ic Hyperlipidemia chronic Obesity chronic JOSIAH (obstructive sleep apnea) chronic Tobacco dependence chronic Type 2 diabetes mellitus chr onic CAD (coronary artery disease) acute Essential hypertension chron ic Hyperlipidemia chronic Obesity chronic JOSIAH (obstructive sleep apnea) chronic Type 2 diabetes mellitus chr onic [facility] Work Phone: Evaluation note* Diagnosis Controlled type 2 diabetes mellitus without complication, without long-term current use of insulin (HCC) documented in this encounter [facility] noteNo assessment information availableWUniversity Hospitals [facility] Work Phone: Evaluation note* Diagnosis Onset Date Resolution Status Infection due to ESBL-producing Escherichia coli acute Pyelonephritis acute [facility] Work Phone: Evaluation note* Diagnosis Sepsis due to Escherichia coli without acute organ dysfunction (HCC)- Primary Acute pyelonephritis Acute pyelonephritis without lesion of renal medullary necrosis Essential hypertension, benign Controlled type 2 diabetes mellitus without complication, without long-term current use of insulin (HCC) documented in this encounter [facility] note* Diagnosis Essential hypertension, benign Disorder of thyroid Unspecified disorder of thyroid documented in this encounter [facility] note* Diagnosis Acute pyelonephritis Acute pyelonephritis without lesion of renal medullary necrosis Unspecified Escherichia coli (E. coli) as the cause of diseases classified elsewhere documented in this encounter [facility] Work Phone: Evaluation note* Diagnosis Hyperglycemia- Primary Other abnormal glucose Abdominal pain, unspecified abdominal location Lactic acidosis Acidosis documented in this encounter [facility] Work Phone: Evaluation note* Diagnosis Onset Date Resolution Status Chest pain acute Diabetes acute History of coronary artery disease [facility] Work Phone: Evaluation note* Diagnosis Chest pain, unspecified type- Primary C. difficile colitis Intestinal infection due to clostridium difficile documented in this encounter [facility] note* Diagnosis C. difficile colitis- Primary Intestinal infection due to clostridium difficile documented in this encounter [facility] note* Diagnosis Anemia, unspecified type- Primary documented in this encounter [facility] note* Diagnosis Colitis- Primary Other and unspecified noninfectious gastroenteritis and colitis Diarrhea, unspecified type Colitis- Primary Other and unspecified noninfectious gastroenteritis and colitis Colitis Other and unspecified noninfectious gastroenteritis and colitis documented in this encounter [facility] note* Diagnosis C. difficile colitis- Primary Intestinal infection due to clostridium difficile documented in this encounter [facility] note* Diagnosis Controlled type 2 diabetes mellitus without complication, without long-term current use of insulin (HCC) documented in this encounter [facility] note* Diagnosis Essential hypertension, benign- Primary Hyperlipidemia, [...] left lower extremity documented in this encounter [facility] note* Diagnosis Acute pain of left knee Edema of leg Edema Pain of left lower extremity documented in this encounter [facility] note* Diagnosis Ingrowing toenail with infection- Primary Ingrowing nail documented in this encounter [facility] note* Diagnosis Closed nondisplaced fracture of distal phalanx of right great toe, initial encounter- Primary documented in this encounter [facility] note* Diagnosis Folate deficiency- Primary Other B-complex deficiencies documented in this encounter [facility] note* Diagnosis Open wound of toe, initial encounter- Primary documented in this encounter [facility] note* Diagnosis Acute pain of left knee Pain of left lower extremity documented in this encounter [facility] note* Diagnosis Closed non-physeal fracture of phalanx of right great toe, unspecified phalanx, initial encounter- Primary [facility] [place] [facility]* Diagnosis Open wound of toe, initial encounter documented [facility] this encounter [facility]* Diagnosis Acute pain of left knee- Primary [facility]* Diagnosis Knee pain, unspecified chronicity, unspecified laterality- Primary documented in this encounter [facility] [place] [facility]* Diagnosis Medial knee pain, left- Primary [facility] [place] [facility]* Diagnosis Acute pain of left knee Pain of left lower extremity [facility] [place] [facility]* Diagnosis Ingrowing toenail with infection Ingrowing nail [facility]* Diagnosis Chronic pain of left knee- Primary Pain in joint, lower leg documented in this encounter [facility] [place] [facility]* Diagnosis Folate deficiency Other B-complex deficiencies documented in this encounter [facility] [place] [facility]* Diagnosis Chronic pain of left knee Pain in joint, lower leg documented in this encounter [facility] [place] [facility]* Diagnosis Chronic left shoulder pain Pain in joint, shoulder region [facility] [place] [facility]* Diagnosis Disorder of thyroid Unspecified disorder of thyroid documented in this encounter [facility] [place] [facility]* Diagnosis Primary osteoarthritis of left knee- Primary Primary localized osteoarthrosis, lower leg [facility] [place] [facility] Diagnosis JOSIAH (obstructive sleep apnea)- Primary [...] malignant neoplasms, colon [facility] [place] [facility]* Diagnosis Leukocytosis, unspecified type- Primary Controlled type 2 diabetes mellitus without complication, without long-term current use of insulin (HCC) [facility] Diagnosis Essential hypertension, benign [facility] [place] [facility] Diagnosis Primary osteoarthritis of left knee- Primary Primary localized osteoarthrosis, lower leg [facility] [place] [facility]* Diagnosis Pain in both knees, unspecified chronicity- Primary documented in this encounter [facility] note* Diagnosis Primary osteoarthritis of left knee- Primary Primary localized osteoarthrosis, lower leg documented in this encounter [facility] note* Diagnosis Primary osteoarthritis of left knee- Primary Primary localized osteoarthrosis, lower leg documented in this encounter [facility] note* Diagnosis Primary osteoarthritis of left knee- Primary Primary localized osteoarthrosis, lower leg documented in this encounter [facility] note* Diagnosis Pain in both knees, unspecified chronicity documented in this encounter [facility] note* Diagnosis Osteoarthritis of left knee, unspecified osteoarthritis type- Primary Central sleep apnea Unspecified sleep apnea Essential hypertension, benign Hyperlipidemia, unspecified hyperlipidemia type Status post insertion of drug-eluting stent into left anterior descending (LAD) artery Coronary artery disease involving [place] coronary artery of [place] heart without angina pectoris JOSIAH (obstructive sleep apnea) Obstructive sleep apnea (adult) (pediatric) Hypothyroidism, unspecified type Obesity, Class III, BMI 40-49.9 (morbid obesity) ([facility]) Morbid obesity Controlled type 2 diabetes mellitus without complication, without long-term current use of insulin ([facility]) documented in this encounter [facility] note* Diagnosis Osteoarthritis of left knee, unspecified osteoarthritis type- Primary Controlled type 2 diabetes mellitus without complication, without long-term current use of insulin ([facility]) documented in this encounter [facility] note* Diagnosis Folate deficiency Other B-complex deficiencies Essential hypertension, benign documented in this encounter [facility] note* Diagnosis Hypoglycemia- Primary Hypoglycemia, unspecified Dizziness Dizziness and giddiness documented in this encounter [facility] note* Diagnosis Loose left total knee arthroplasty (HCC)- Primary documented in this encounter [facility] note* Diagnosis S/P total knee arthroplasty, left- Primary Loose left total knee arthroplasty (HCC) documented in this encounter [facility] note* Diagnosis S/P total knee arthroplasty, left- Primary documented in this encounter [facility] note* Diagnosis S/P total knee arthroplasty, left- Primary documented in this encounter [facility] note* Diagnosis S/P total knee arthroplasty, left- Primary documented in this encounter [facility] note* Diagnosis S/P total knee arthroplasty, left- Primary documented in this encounter [facility] note* Diagnosis Disorder of thyroid Unspecified disorder of thyroid documented in this encounter [facility] of Present illness Narrative* Patient demos increased endurance and decreased pain throughout. * Patient was able to complete today's treatment with some difficulty. [facility] Work Phone: History of Present illness Narrative* Patient demos increased endurance and decreased pain this date. Patient tolerating all exercises well. * Patient was able to complete today's treatment with some difficulty. [facility] Work Phone: Hospital Discharge instructions Additional Instructions Plenty of fluids and rest. Increase your diet slowly as tolerated. Zofran as needed for nausea. You may swallow it or let it dissolve in your tongue. Follow-up with your doctor if not improving or return if feeling worse.[facility] Work Phone: Reason for referral (narrative)* Diagnostic Procedure Only (Urgent) - Closed Specialty Diagnoses / Procedures Referred By Contac t Referred To Contact US IMAGING Diagnoses Acute pain of left knee Edema of leg Pain of left lower extremity Procedures US DVT LOWER LEFT DUP-SCAN XTR VEINS UNILATERAL/LIMITED STUDY Ginger Lugo MD [address] [place] [address] [place] [address] Referral ID Status Reason Start Date Expiration Date V isits Requested Visits Authorized [id number] Closed Auto-Generate d Referral 03/28/2024 04/27/2025 1 1 [facility] (narrative)* Diagnostic Procedure Only (Routine) - Closed Specialty Diagnoses / Procedures Referred By Contac t Referred To Contact XR IMAGING Diagnoses Ingrowing toenail with infection Procedures XR TOE AP/LAT/OBL RIGHT RADEX TOE MINIMUM 2 VIEWS Sam Beasley [address] [place] [address] [place] [address] Referral ID Status Reason Start Date Expiration Date V isits Requested Visits Authorized [id number] Closed Auto-Generate d Referral 03/28/2024 04/27/2025 1 1 [facility] for referral (narrative)* Diagnostic Procedure Only (Routine) - New Request Specialty Diagnoses / Procedures Referred By Contac t Referred To Contact XR IMAGING Diagnoses Open wound of toe, initial encounter Procedures XR TOE AP/LAT/OBL RIGHT RADEX TOE MINIMUM 2 VIEWS Sam Be[address] [place] [address] [place] [address] Referral ID Status Reason Start Date Expiration Date Visits Requested Visits Authorized [id number] New Request Auto-Generat ed Referral 04/01/2024 05/01/2025 1 1 [facility] for referral (narrative)* Diagnostic Procedure Only (Routine) - New Request Specialty Diagnoses / Procedures Referred By Contac t Referred To Contact XR IMAGING Diagnoses Closed non-physeal fracture of phalanx of right great toe, unspecified phalanx, initial encounter Procedures XR TOE AP/LAT/OBL RIGHT RADEX TOE MINIMUM 2 VIEWS Sam [address] [place] [address] [place] [address] Referral ID Status Reason Start Date Expiration Date Visits Requested Visits Authorized [id number] New Request Auto-Generat ed Referral 04/14/2024 05/14/2025 1 1 [facility] for referral (narrative)* Diagnostic Procedure Only (Routine) - Closed Specialty Diagnoses / Procedures Referred By Contac t Referred To Contact XR IMAGING Diagnoses Open wound of toe, initial encounter Procedures XR TOE AP/LAT/OBL RIGHT RADEX TOE MINIMUM 2 VIEWS Sam [address] [place] [address] [place] [address] Referral ID Status Reason Start Date Expiration Date V isits Requested Visits Authorized [id number] Closed Auto-Generate d Referral 04/01/2024 05/01/2025 1 1 [facility] (narrative)* Diagnostic Procedure Only (Routine) - Closed Specialty Diagnoses / Procedures Referred By Contac t Referred To Contact XR IMAGING Diagnoses Pain of left lower extremity Procedures XR TIBIA FIBULA 2V AP/LAT LEFT RADIOLOGIC EXAMINATION TIBIA & FIBULA 2 VIEWS Ginger Lugo MD [address] [place] [address] [place] [address] Referral ID Status Reason Start Date Expiration Date V isits Requested Visits Authorized [id number] Closed Auto-Generate d Referral 03/28/2024 04/27/2025 1 1 * Diagnostic Procedure Only (Routine) - Closed Specialty Diagnoses / Procedures Referred By Contac t Referred To Contact XR IMAGING Diagnoses Acute pain of left knee Pain of left lower extremity Procedures XR KNEE GENERAL 4V AP BOTH/PA BOTH/LAT/MERC LEFT RADIOLOGIC EXAM KNEE COMPLETE 4/MORE VIEWS Ginger Lugo MD [address] [place] [address] [place] [address] Referral ID Status Reason Start Date Expiration Date V isits Requested Visits Authorized [id number] Closed Auto-Generate d Referral 03/28/2024 04/27/2025 1 1 [facility] for [facility] (narrative)* Diagnostic Procedure Only (Routine) - Closed Specialty Diagnoses / Procedures Referred By Contac t Referred To Contact XR IMAGING Diagnoses Ingrowing toenail with infection Procedures XR TOE AP/LAT/OBL RIGHT RADEX TOE MINIMUM 2 VIEWS Sam Beasley [address] [place] [address] [place] [address] Referral ID Status Reason Start Date Expiration Date V isits Requested Visits Authorized [id number] Closed Auto-Generate d Referral 03/28/2024 04/27/2025 1 1 [facility] for referral (narrative)* Diagnostic Procedure Only (Routine) - Closed Specialty Diagnoses / Procedures Referred By Contac t Referred To Contact XR IMAGING Diagnoses Chronic left shoulder pain Procedures XR SHOULDER GENERAL 3V OR MORE AP/TRUE AP/OTHER LEFT RADEX SHOULDER COMPLETE MINIMUM 2 VIEWS Nadege Christine PA-C [address] [place] [address] [place] [address] Referral ID Status Reason Start Date Expiration Date V isits Requested Visits Authorized [id number] Closed Auto-Generate d Referral 12/03/2021 01/02/2023 1 1 [facility] for referral (narrative)* Diagnostic Procedure Only (Routine) - Authorized Specialty Diagnoses / Procedures Referred By Contac t Referred To Contact XR IMAGING Diagnoses Pain in both knees, unspecified chronicity Procedures XR LEG FRONTAL HIP TO ANKLE MECHANICAL AXIS BONE LENGTH STUDIES Jose Loo MD [address] [place] [address] [place] [address] Referral ID Status Reason Start Date Expiration Date Visits Requested Visits Authorized [id number] Authorized Auto-Generat ed Referral 09/15/2024 10/15/2025 1 1 * Diagnostic Procedure Only (Routine) - Authorized Specialty Diagnoses / Procedures Referred By Contac t Referred To Contact XR IMAGING Diagnoses Pain in both knees, unspecified chronicity Procedures XR KNEE GENERAL 4V AP BOTH/PA BOTH/LAT/MERC LEFT RADIOLOGIC EXAM KNEE COMPLETE 4/MORE VIEWS Jose Loo MD [address] [place] [address] [place] [address] Referral ID Status Reason Start Date Expiration Date Visits Requested Visits Authorized [id number] Authorized Auto-Generat ed Referral 09/15/2024 10/15/2025 1 1 [facility] for referral (narrative)* Diagnostic Procedure Only (Routine) - Closed Specialty Diagnoses / Procedures Referred By Contac t Referred To Contact XR IMAGING Diagnoses Pain in both knees, unspecified chronicity Procedures XR LEG FRONTAL HIP TO ANKLE MECHANICAL AXIS BONE LENGTH STUDIES Jose Loo MD [address] [place] [address] [place] [address] Referral ID Status Reason Start Date Expiration Date V isits Requested Visits Authorized [id number] Closed Auto-Generate d Referral 09/15/2024 10/15/2025 1 1 * Diagnostic Procedure Only (Routine) - Closed Specialty Diagnoses / Procedures Referred By Contac t Referred To Contact XR IMAGING Diagnoses Pain in both knees, unspecified chronicity Procedures XR KNEE GENERAL 4V AP BOTH/PA BOTH/LAT/MERC LEFT RADIOLOGIC EXAM KNEE COMPLETE 4/MORE VIEWS Jose Loo MD [address] [place] [address] [place] [address] Referral ID Status Reason Start Date Expiration Date V isits Requested Visits Authorized [id number] Closed Auto-Generate d Referral 09/15/2024 10/15/2025 1 1 [facility] for visit Narrative* Diagnostic Procedure Only (Urgent) - Closed Specialty Diagnoses / Procedures Referred By Contac t Referred To Contact US IMAGING Diagnoses Acute pain of left knee Edema of leg Pain of left lower extremity Procedures US DVT LOWER LEFT DUP-SCAN XTR VEINS UNILATERAL/LIMITED STUDY Ginger Lugo MD [address] [place] [address] [place] [address] Referral ID Status Reason Start Date Expiration Date V isits Requested Visits Authorized [id number] Closed Auto-Generate d Referral 03/28/2024 04/27/2025 1 1 [facility] for visit Narrative* Diagnostic Procedure Only (Routine) - Closed Specialty Diagnoses / Procedures Referred By Contac t Referred To Contact XR IMAGING Diagnoses Open wound of toe, initial encounter Procedures XR TOE AP/LAT/OBL RIGHT RADEX TOE MINIMUM 2 VIEWS Sam Beasley [address] [place] [address] [place] [address] Referral ID Status Reason Start Date Expiration Date V isits Requested Visits Authorized [id number] Closed Auto-Generate d Referral 04/01/2024 05/01/2025 1 1 [facility] for visit Narrative* Diagnostic Procedure Only (Routine) - Closed Specialty Diagnoses / Procedures Referred By Contac t Referred To Contact XR IMAGING Diagnoses Pain of left lower extremity Procedures XR TIBIA FIBULA 2V AP/LAT LEFT RADIOLOGIC EXAMINATION TIBIA & FIBULA 2 VIEWS Ginger uLgo MD [address] [place] [address] [place] [address] Referral ID Status Reason Start Date Expiration Date V isits Requested Visits Authorized [id number] Closed Auto-Generate d Referral 03/28/2024 04/27/2025 1 1 [facility] for visit Narrative* Diagnostic Procedure Only (Routine) - Closed Specialty Diagnoses / Procedures Referred By Contac t Referred To Contact XR IMAGING Diagnoses Ingrowing toenail with infection Procedures XR TOE AP/LAT/OBL RIGHT RADEX TOE MINIMUM 2 VIEWS Sam Beasley [address] [place] [address] [place] [address] Referral ID Status Reason Start Date Expiration Date V isits Requested Visits Authorized [id number] Closed Auto-Generate d Referral 03/28/2024 04/27/2025 1 1 [facility] for visit Narrative* Diagnostic Procedure Only (Routine) - Closed Specialty Diagnoses / Procedures Referred By Contac t Referred To Contact XR IMAGING Diagnoses Chronic left shoulder pain Procedures XR SHOULDER GENERAL 3V OR MORE AP/TRUE AP/OTHER LEFT RADEX SHOULDER COMPLETE MINIMUM 2 VIEWS Nadege Christine PA-C [address] [place] [address] [place] [address] Referral ID Status Reason Start Date Expiration Date V isits Requested Visits Authorized [id number] Closed Auto-Generate d Referral 12/03/2021 01/02/2023 1 1 [facility] for visit Narrative* Diagnostic Procedure Only (Routine) - Closed Specialty Diagnoses / Procedures Referred By Contac t Referred To Contact XR IMAGING Diagnoses Pain in both knees, unspecified chronicity Procedures XR KNEE GENERAL 4V AP BOTH/PA BOTH/LAT/MERC LEFT RADIOLOGIC EXAM KNEE COMPLETE 4/MORE VIEWS Jose Loo MD [address] [place] [address] [place] [address] Referral ID Status Reason Start Date Expiration Date V isits Requested Visits Authorized [id number] Closed Auto-Generate d Referral 09/15/2024 10/15/2025 1 1 [facility] Summary Purpose Family History No Family History [...] FoundDocuments on File Type Date Recorded Patient Zyglo Technician Expl anation Advance Directive(s) 01/26/2022 2:25 PM Advance Directive Response Recorded Date/ Time Advance Directives No October 9:11am Living Will No October 24, 2 023 3:04pm Power of Concrete Foreman No October 24, 2022 3:04pm Advance Directive Response Recorded Date/ Time Advance Directives No October 10:11am Living Will No March 04, 2023 10:32pm Power of Concrete Foreman No March 04 10:32pm Advance Directive Response Recorded Date/ Time Advance Directives No October 10:11am Living Will No March 17, 2023 8:40pm Power of Concrete Foreman No March 17 8:40pm Advance Directive Response Recorded Date/ Time Advance Directives No October 10:11am Living Will No March 18, 2023 2:03am Power of Concrete Foreman No March 18 2:03am Advance Directive Response Recorded Date/ Time Advance Directives No October 06, 2023 12:13pm Living Will No October 07 8:48am Power of Concrete Foreman No October 07, 2023 8:48am Advance Directive Response Recorded Date/ Time Advance Directives No October 06, 2023 12:13pm Living Will No October 07 11:39am Power of Concrete Foreman No October 07, 2023 11:39am Reason for Referral Specialty Diagnoses / Procedures Referred By Contac t Referred To Contact Ophthalmology Diagnoses Controlled type 2 diabetes mellitus without complication, without long-term current use of insulin (HCC) Wellness examination Procedures CONSULT TO OPHTHALMOLOGY OFFICE/OUTPATIENT [facility] 60-74 MINUTES Nadege Christine PA-C [address] [place] [address] Referral ID Status Reason Start Date Expiration Date Visits Requested Visits Authorized [id number] Pending Review PCP Requested Referral 2 06/17/2023 1 1 Specialty Diagnoses / Procedures Referred By Contac t Referred To Contact Cardiology Diagnoses Chest pain, unspecified type Syncope, unspecified syncope type Family history of heart disease Procedures CONSULT TO CARDIOLOGY OFFICE/OUTPATIENT [facility] 60-74 MINUTES Ginger Lugo MD [address] [place] [address] Referral ID Status Reason Start Date Expiration Date Visits Requested Visits Authorized [id number] Pending Review PCP Requested Referral 10/08/2022 10/08/2023 1 1 Specialty Diagnoses / Procedures Referred By Contac t Referred To Contact Gastroenterology Diagnoses C. difficile colitis Procedures CONSULT TO GASTROENTEROLOGY OFFICE/OUTPATIENT [facility] 60 MINUTES Nuha Mosquera APRN.CNS [address] [place] [address] Referral ID Status Reason Start Date Expiration Date Visits Requested Visits Authorized [id number] Authorized PCP Requested Referral 10/16/2023 10/15/2024 1 1 Specialty Diagnoses / Procedures Referred By Contac t Referred To Contact Orthopedics Diagnoses Acute pain of left knee Pain of left lower extremity Procedures CONSULT TO ORTHOPAEDICS OFFICE/OUTPATIENT [facility] 60 MINUTES Ginger Lugo MD [address] [place] [address] Referral ID Status Reason Start Date Expiration Date Visits Requested Visits Authorized [id number] Authorized PCP Requested Referral 03/28/2024 03/28/2025 1 1 Specialty Diagnoses / Procedures Referred By Contac t Referred To Contact XR IMAGING Diagnoses Pain of left lower extremity Procedures XR TIBIA FIBULA 2V AP/LAT LEFT RADIOLOGIC EXAMINATION TIBIA & FIBULA 2 VIEWS Ginger Lugo MD [address] [place] [address] [place] [address] Referral ID Status Reason Start Date Expiration Date V isits Requested Visits Authorized [id number] Closed Auto-Generate d Referral 03/28/2024 04/27/2025 1 1 Specialty Diagnoses / Procedures Referred By Contac t Referred To Contact XR IMAGING Diagnoses Acute pain of left knee Pain of left lower extremity Procedures XR KNEE GENERAL 4V AP BOTH/PA BOTH/LAT/MERC LEFT RADIOLOGIC EXAM KNEE COMPLETE 4/MORE VIEWS Ginger Lugo MD [address] [place] [address] [place] [address] Referral ID Status Reason Start Date Expiration Date V isits Requested Visits Authorized [id number] Closed Auto-Generate d Referral 03/28/2024 04/27/2025 1 1 Specialty Diagnoses / Procedures Referred By Contac t Referred To Contact US IMAGING Diagnoses Acute pain of left knee Edema of leg Pain of left lower extremity Procedures US DVT LOWER LEFT DUP-SCAN XTR VEINS UNILATERAL/LIMITED STUDY Ginger Lugo MD [address] [place] [address] [place] [address] Referral ID Status Reason Start Date Expiration Date Visits Requested Visits Authorized [id number] Authorized Auto-Generat ed Referral 03/28/2024 04/27/2025 1 1 Specialty Diagnoses / Procedures Referred By Contac t Referred To Contact Gastroenterology Diagnoses Screening for colon cancer Procedures CONSULT TO GASTROENTEROLOGY OFFICE/OUTPATIENT [facility] 60 MINUTES Ginger Lugo MD [address] [place] [address] Referral ID Status Reason Start Date Expiration Date Visits Requested Visits Authorized [id number] Authorized PCP Requested Referral 03/28/2024 03/28/2025 1 1 Specialty Diagnoses / Procedures Referred By Contac t Referred To Contact [facility] Diagnoses Chronic pain of left knee Procedures CONSULT TO PHYSICAL THERAPY PHYSICAL THERAPY EVALUATION HIGH COMPLEX 45 MINS Torsten Aviles V, DO [address] [place] [address] [facility] [place] [address] [place] [address] Referral ID Status Reason Start Date Expiration Date Visits Requested Visits Authorized [id number] Pending Review Auto-Generat ed Referral 05/13/2024 05/13/2025 1 1 Specialty Diagnoses / Procedures Referred By Jeremy madrid Referred To Contact MR IMAGING Diagnoses Chronic pain of left knee Procedures MRI KNEE WO IVCON LEFT MRI ANY JT LOWER EXTREM W/O CONTRAST MATRL Torsten Aviles V, DO [address] [place] [address] [place] [address] Referral ID Status Reason Start Date Expiration Date Visits Requested Visits Authorized [id number] New Request Auto-Generat ed Referral 05/13/2024 06/12/2025 1 1 Referral ID Status Reason Start Date Expiration Date V isits Requested Visits Authorized [id number] Closed Auto-Generate d Referral 05/13/2024 06/12/2025 1 [...] section and content) DATE CREATED AUTHOR 06/04/2018 [facility] DATE CREATED AUTHOR AUTHOR'S ORGANIZ ATION 04/12/2022 [facility] DATE CREATED AUTHOR AUTHOR'S ORGANIZ ATION 04/02/2023 [facility] DATE CREATED AUTHOR AUTHOR'S ORGANIZ ATION 05/07/2023 [facility] DATE CREATED AUTHOR AUTHOR'S ORGANIZ ATION 09/26/2023 [facility] DATE CREATED AUTHOR AUTHOR'S ORGANIZ ATION 11/06/2023 [facility] DATE CREATED AUTHOR AUTHOR'S ORGANIZ ATION 01/18/2024 [facility] DATE CREATED AUTHOR AUTHOR'S ORGANIZ ATION 04/01/2024 [facility] DATE CREATED AUTHOR AUTHOR'S ORGANIZ ATION 09/19/2024 [facility] DATE CREATED AUTHOR AUTHOR'S ORGANIZ ATION 09/22/2024 [facility] DATE CREATED AUTHOR AUTHOR'S ORGANIZ ATION 10/21/2024 [facility] DATE CREATED AUTHOR AUTHOR'S ORGANIZ ATION 01/11/2025 [facility] DATE CREATED AUTHOR AUTHOR'S ORGANIZ ATION 05/28/2025 [facility] DATE CREATED AUTHOR AUTHOR'S ORGANIZ ATION 05/28/2025 [facility] Source Comments (unrecognize d section and content) In the event this informatio n is protected by the Federal Confidentiality of Alcohol and Drug Abuse Patient Records regulations: The Federal rules restrict any use of the information to criminally investigate or prosecute any alcohol or drug abuse patient.[facility] the event this information is protected by the Federal Confidentiality of Alcohol and Drug Abuse Patient Records regulations: The Federal rules restrict any use of the information to criminally investigate or prosecute any alcohol or drug abuse patient.[facility] the event this information is protected by the Federal Confidentiality of Alcohol and Drug Abuse Patient Records regulations: The Federal rules restrict any use of the information to criminally investigate or prosecute any alcohol or drug abuse patient.[facility] the event this information is protected by the Federal Confidentiality of Alcohol and Drug Abuse Patient Records regulations: The Federal rules restrict any use of the information to criminally investigate or prosecute any alcohol or drug abuse patient.[facility] the event this information is protected by the Federal Confidentiality of Alcohol and Drug Abuse Patient Records regulations: The Federal rules restrict any use of the information to criminally investigate or prosecute any alcohol or drug abuse patient.[facility] the event this information is protected by the Federal Confidentiality of Alcohol and Drug Abuse Patient Records regulations: The Federal rules restrict any use of the information to criminally investigate or prosecute any alcohol or drug abuse patient.[facility] the event this information is protected by the Federal Confidentiality of Alcohol and Drug Abuse Patient Records regulations: The Federal rules restrict any use of the information to criminally investigate or prosecute any alcohol or drug abuse patient.[facility] the event this information is protected by the Federal Confidentiality of Alcohol and Drug Abuse Patient Records regulations: The Federal rules restrict any use of the information to criminally investigate or prosecute any alcohol or drug abuse patient.[facility] HospitalIn the event this information is protected by the Federal Confidentiality of Alcohol and Drug Abuse Patient Records regulations: The Federal rules restrict any use of the information to criminally investigate or prosecute any alcohol or drug abuse patient.[facility] HospitalIn the event this information is protected by the Federal Confidentiality of Alcohol and Drug Abuse Patient Records regulations: The Federal rules restrict any use of the information to criminally investigate or prosecute any alcohol or drug abuse patient.[facility] HospitalIn the event this information is protected by the Federal Confidentiality of Alcohol and Drug Abuse Patient Records regulations: The Federal rules restrict any use of the information to criminally investigate or prosecute any alcohol or drug abuse patient.[facility] HospitalIn the event this information is protected by the Federal Confidentiality of Alcohol and Drug Abuse Patient Records regulations: The Federal rules restrict any use of the information to criminally investigate or prosecute any alcohol or drug abuse patient.[facility] HospitalIn the event this information is protected by the Federal Confidentiality of Alcohol and Drug Abuse Patient Records regulations: The Federal rules restrict any use of the information to criminally investigate or prosecute any alcohol or drug abuse patient.[facility] HospitalIn the event this information is protected by the Federal Confidentiality of Alcohol and Drug Abuse Patient Records regulations: The Federal rules restrict any use of the information to criminally investigate or prosecute any alcohol or drug abuse patient.[facility] HospitalIn the event this information is protected by the Federal Confidentiality of Alcohol and Drug Abuse Patient Records regulations: The Federal rules restrict any use of the information to criminally investigate or prosecute any alcohol or drug abuse patient.[facility] HospitalIn the event this information is protected by the Federal Confidentiality of Alcohol and Drug Abuse Patient Records regulations: The Federal rules restrict any use of the information to criminally investigate or prosecute any alcohol or drug abuse patient.[facility] HospitalIn the event this information is protected by the Federal Confidentiality of Alcohol and Drug Abuse Patient Records regulations: The Federal rules restrict any use of the information to criminally investigate or prosecute any alcohol or drug abuse patient.[facility] HospitalIn the event this information is protected by the Federal Confidentiality of Alcohol and Drug Abuse Patient Records regulations: The Federal rules restrict any use of the information to criminally investigate or prosecute any alcohol or drug abuse patient.[facility] HospitalIn the event this information is protected by the Federal Confidentiality of Alcohol and Drug Abuse Patient Records regulations: The Federal rules restrict any use of the information to criminally investigate or prosecute any alcohol or drug abuse patient.[facility] HospitalIn the event this information is protected by the Federal Confidentiality of Alcohol and Drug Abuse Patient Records regulations: The Federal rules restrict any use of the information to criminally investigate or prosecute any alcohol or drug abuse patient.[facility] HospitalIn the event this information is protected by the Federal Confidentiality of Alcohol and Drug Abuse Patient Records regulations: The Federal rules restrict any use of the information to criminally investigate or prosecute any alcohol or drug abuse patient.[facility] HospitalIn the event this information is protected by the Federal Confidentiality of Alcohol and Drug Abuse Patient Records regulations: The Federal rules restrict any use of the information to criminally investigate or prosecute any alcohol or drug abuse patient.[facility] HospitalIn the event this information is protected by the Federal Confidentiality of Alcohol and Drug Abuse Patient Records regulations: The Federal rules restrict any use of the information to criminally investigate or prosecute any alcohol or drug abuse patient.[facility] HospitalIn the event this information is protected by the Federal Confidentiality of Alcohol and Drug Abuse Patient Records regulations: The Federal rules restrict any use of the information to criminally investigate or prosecute any alcohol or drug abuse patient.[facility] HospitalIn the event this information is protected by the Federal Confidentiality of Alcohol and Drug Abuse Patient Records regulations: The Federal rules restrict any use of the information to criminally investigate or prosecute any alcohol or drug abuse patient.[facility] HospitalIn the event this information is protected by the Federal Confidentiality of Alcohol and Drug Abuse Patient Records regulations: The Federal rules restrict any use of the information to criminally investigate or prosecute any alcohol or drug abuse patient.[facility] HospitalIn the event this information is protected by the Federal Confidentiality of Alcohol and Drug Abuse Patient Records regulations: The Federal rules restrict any use of the information to criminally investigate or prosecute any alcohol or drug abuse patient.[facility] HospitalIn the event this information is protected by the Federal Confidentiality of Alcohol and Drug Abuse Patient Records regulations: The Federal rules restrict any use of the information to criminally investigate or prosecute any alcohol or drug abuse patient.[facility] HospitalIn the event this information is protected by the Federal Confidentiality of Alcohol and Drug Abuse Patient Records regulations: The Federal rules restrict any use of the information to criminally investigate or prosecute any alcohol or drug abuse patient.[facility] HospitalIn the event this information is protected by the Federal Confidentiality of Alcohol and Drug Abuse Patient Records regulations: The Federal rules restrict any use of the information to criminally investigate or prosecute any alcohol or drug abuse patient.[facility] HospitalIn the event this information is protected by the Federal Confidentiality of Alcohol and Drug Abuse Patient Records regulations: The Federal rules restrict any use of the information to criminally investigate or prosecute any alcohol or drug abuse patient.[facility] HospitalIn the event this information is protected by the Federal Confidentiality of Alcohol and Drug Abuse Patient Records regulations: The Federal rules restrict any use of the information to criminally investigate or prosecute any alcohol or drug abuse patient.[facility] HospitalIn the event this information is protected by the Federal Confidentiality of Alcohol and Drug Abuse Patient Records regulations: The Federal rules restrict any use of the information to criminally investigate or prosecute any alcohol or drug abuse patient.[facility] HospitalIn the event this information is protected by the Federal Confidentiality of Alcohol and Drug Abuse Patient Records regulations: The Federal rules restrict any use of the information to criminally investigate or prosecute any alcohol or drug abuse patient.[facility] HospitalIn the event this information is protected by the Federal Confidentiality of Alcohol and Drug Abuse Patient Records regulations: The Federal rules restrict any use of the information to criminally investigate or prosecute any alcohol or drug abuse patient.[facility] HospitalIn the event this information is protected by the Federal Confidentiality of Alcohol and Drug Abuse Patient Records regulations: The Federal rules restrict any use of the information to criminally investigate or prosecute any alcohol or drug abuse patient.[facility] HospitalIn the event this information is protected by the Federal Confidentiality of Alcohol and Drug Abuse Patient Records regulations: The Federal rules restrict any use of the information to criminally investigate or prosecute any alcohol or drug abuse patient.[facility] HospitalIn the event this information is protected by the Federal Confidentiality of Alcohol and Drug Abuse Patient Records regulations: The Federal rules restrict any use of the information to criminally investigate or prosecute any alcohol or drug abuse patient.[facility] HospitalIn the event this information is protected by the Federal Confidentiality of Alcohol and Drug Abuse Patient Records regulations: The Federal rules restrict any use of the information to criminally investigate or prosecute any alcohol or drug abuse patient.[facility] HospitalIn the event this information is protected by the Federal Confidentiality of Alcohol and Drug Abuse Patient Records regulations: The Federal rules restrict any use of the information to criminally investigate or prosecute any alcohol or drug abuse patient.[facility] HospitalIn the event this information is protected by the Federal Confidentiality of Alcohol and Drug Abuse Patient Records regulations: The Federal rules restrict any use of the information to criminally investigate or prosecute any alcohol or drug abuse patient.[facility] HospitalIn the event this information is protected by the Federal Confidentiality of Alcohol and Drug Abuse Patient Records regulations: The Federal rules restrict any use of the information to criminally investigate or prosecute any alcohol or drug abuse patient.[facility] HospitalIn the event this information is protected by the Federal Confidentiality of Alcohol and Drug Abuse Patient Records regulations: The Federal rules restrict any use of the information to criminally investigate or prosecute any alcohol or drug abuse patient.[facility] HospitalIn the event this information is protected by the Federal Confidentiality of Alcohol and Drug Abuse Patient Records regulations: The Federal rules restrict any use of the information to criminally investigate or prosecute any alcohol or drug abuse patient.[facility] HospitalIn the event this information is protected by the Federal Confidentiality of Alcohol and Drug Abuse Patient Records regulations: The Federal rules restrict any use of the information to criminally investigate or prosecute any alcohol or drug abuse patient.[facility] HospitalIn the event this information is protected by the Federal Confidentiality of Alcohol and Drug Abuse Patient Records regulations: The Federal rules restrict any use of the information to criminally investigate or prosecute any alcohol or drug abuse patient.[facility] HospitalIn the event this information is protected by the Federal Confidentiality of Alcohol and Drug Abuse Patient Records regulations: The Federal rules restrict any use of the information to criminally investigate or prosecute any alcohol or drug abuse patient.[facility] HospitalIn the event this information is protected by the Federal Confidentiality of Alcohol and Drug Abuse Patient Records regulations: The Federal rules restrict any use of the information to criminally investigate or prosecute any alcohol or drug abuse patient.[facility] HospitalIn the event this information is protected by the Federal Confidentiality of Alcohol and Drug Abuse Patient Records regulations: The Federal rules restrict any use of the information to criminally investigate or prosecute any alcohol or drug abuse patient.[facility] HospitalIn the event this information is protected by the Federal Confidentiality of Alcohol and Drug Abuse Patient Records regulations: The Federal rules restrict any use of the information to criminally investigate or prosecute any alcohol or drug abuse patient.[facility] HospitalIn the event this information is protected by the Federal Confidentiality of Alcohol and Drug Abuse Patient Records regulations: The Federal rules restrict any use of the information to criminally investigate or prosecute any alcohol or drug abuse patient.[facility] HospitalIn the event this information is protected by the Federal Confidentiality of Alcohol and Drug Abuse Patient Records regulations: The Federal rules restrict any use of the information to criminally investigate or prosecute any alcohol or drug abuse patient.[facility] HospitalIn the event this information is protected by the Federal Confidentiality of Alcohol and Drug Abuse Patient Records regulations: The Federal rules restrict any use of the information to criminally investigate or prosecute any alcohol or drug abuse patient.[facility] HospitalIn the event this information is protected by the Federal Confidentiality of Alcohol and Drug Abuse Patient Records regulations: The Federal rules restrict any use of the information to criminally investigate or prosecute any alcohol or drug abuse patient.[facility] HospitalIn the event this information is protected by the Federal Confidentiality of Alcohol and Drug Abuse Patient Records regulations: The Federal rules restrict any use of the information to criminally investigate or prosecute any alcohol or drug abuse patient.[facility] HospitalIn the event this information is protected by the Federal Confidentiality of Alcohol and Drug Abuse Patient Records regulations: The Federal rules restrict any use of the information to criminally investigate or prosecute any alcohol or drug abuse patient.[facility] HospitalIn the event this information is protected by the Federal Confidentiality of Alcohol and Drug Abuse Patient Records regulations: The Federal rules restrict any use of the information to criminally investigate or prosecute any alcohol or drug abuse patient.[facility] HospitalIn the event this information is protected by the Federal Confidentiality of Alcohol and Drug Abuse Patient Records regulations: The Federal rules restrict any use of the information to criminally investigate or prosecute any alcohol or drug abuse patient.[facility] HospitalIn the event this information is protected by the Federal Confidentiality of Alcohol and Drug Abuse Patient Records regulations: The Federal rules restrict any use of the information to criminally investigate or prosecute any alcohol or drug abuse patient.[facility] HospitalIn the event this information is protected by the Federal Confidentiality of Alcohol and Drug Abuse Patient Records regulations: The Federal rules restrict any use of the information to criminally investigate or prosecute any alcohol or drug abuse patient.[facility] HospitalIn the event this information is protected by the Federal Confidentiality of Alcohol and Drug Abuse Patient Records regulations: The Federal rules restrict any use of the information to criminally investigate or prosecute any alcohol or drug abuse patient.[facility] HospitalIn the event this information is protected by the Federal Confidentiality of Alcohol and Drug Abuse Patient Records regulations: The Federal rules restrict any use of the information to criminally investigate or prosecute any alcohol or drug abuse patient.[facility] HospitalIn the event this information is protected by the Federal Confidentiality of Alcohol and Drug Abuse Patient Records regulations: The Federal rules restrict any use of the information to criminally investigate or prosecute any alcohol or drug abuse patient.[facility] HospitalIn the event this information is protected by the Federal Confidentiality of Alcohol and Drug Abuse Patient Records regulations: The Federal rules restrict any use of the information to criminally investigate or prosecute any alcohol or drug abuse patient.[facility] HospitalIn the event this information is protected by the Federal Confidentiality of Alcohol and Drug Abuse Patient Records regulations: The Federal rules restrict any use of the information to criminally investigate or prosecute any alcohol or drug abuse patient.[facility] HospitalIn the event this information is protected by the Federal Confidentiality of Alcohol and Drug Abuse Patient Records regulations: The Federal rules restrict any use of the information to criminally investigate or prosecute any alcohol or drug abuse patient.[facility] HospitalIn the event this information is protected by the Federal Confidentiality of Alcohol and Drug Abuse Patient Records regulations: The Federal rules restrict any use of the information to criminally investigate or prosecute any alcohol or drug abuse patient.[facility] HospitalIn the event this information is protected by the Federal Confidentiality of Alcohol and Drug Abuse Patient Records regulations: The Federal rules restrict any use of the information to criminally investigate or prosecute any alcohol or drug abuse patient.[facility] HospitalIn the event this information is protected by the Federal Confidentiality of Alcohol and Drug Abuse Patient Records regulations: The Federal rules restrict any use of the information to criminally investigate or prosecute any alcohol or drug abuse patient.[facility] HospitalIn the event this information is protected by the Federal Confidentiality of Alcohol and Drug Abuse Patient Records regulations: The Federal rules restrict any use of the information to criminally investigate or prosecute any alcohol or drug abuse patient.[facility] HospitalIn the event this information is protected by the Federal Confidentiality of Alcohol and Drug Abuse Patient Records regulations: The Federal rules restrict any use of the information to criminally investigate or prosecute any alcohol or drug abuse patient.[facility] HospitalIn the event this information is protected by the Federal Confidentiality of Alcohol and Drug Abuse Patient Records regulations: The Federal rules restrict any use of the information to criminally investigate or prosecute any alcohol or drug abuse patient.[facility] HospitalIn the event this information is protected by the Federal Confidentiality of Alcohol and Drug Abuse Patient Records regulations: The Federal rules restrict any use of the information to criminally investigate or prosecute any alcohol or drug abuse patient.[facility] HospitalIn the event this information is protected by the Federal Confidentiality of Alcohol and Drug Abuse Patient Records regulations: The Federal rules restrict any use of the information to criminally investigate or prosecute any alcohol or drug abuse patient.[facility] HospitalIn the event this information is protected by the Federal Confidentiality of Alcohol and Drug Abuse Patient Records regulations: The Federal rules restrict any use of the information to criminally investigate or prosecute any alcohol or drug abuse patient.[facility] HospitalIn the event this information is protected by the Federal Confidentiality of Alcohol and Drug Abuse Patient Records regulations: The Federal rules restrict any use of the information to criminally investigate or prosecute any alcohol or drug abuse patient.[facility] HospitalIn the event this information is protected by the Federal Confidentiality of Alcohol and Drug Abuse Patient Records regulations: The Federal rules restrict any use of the information to criminally investigate or prosecute any alcohol or drug abuse patient.[facility] HospitalIn the event this information is protected by the Federal Confidentiality of Alcohol and Drug Abuse Patient Records regulations: The Federal rules restrict any use of the information to criminally investigate or prosecute any alcohol or drug abuse patient.[facility] HospitalIn the event this information is protected by the Federal Confidentiality of Alcohol and Drug Abuse Patient Records regulations: The Federal rules restrict any use of the information to criminally investigate or prosecute any alcohol or drug abuse patient.[facility] HospitalIn the event this information is protected by the Federal Confidentiality of Alcohol and Drug Abuse Patient Records regulations: The Federal rules restrict any use of the information to criminally investigate or prosecute any alcohol or drug abuse patient.[facility] HospitalIn the event this information is protected by the Federal Confidentiality of Alcohol and Drug Abuse Patient Records regulations: The Federal rules restrict any use of the information to criminally investigate or prosecute any alcohol or drug abuse patient.[facility] HospitalIn the event this information is protected by the Federal Confidentiality of Alcohol and Drug Abuse Patient Records regulations: The Federal rules restrict any use of the information to criminally investigate or prosecute any alcohol or drug abuse patient.[facility] HospitalIn the event this information is protected by the Federal Confidentiality of Alcohol and Drug Abuse Patient Records regulations: The Federal rules restrict any use of the information to criminally investigate or prosecute any alcohol or drug abuse patient.[facility] HospitalIn the event this information is protected by the Federal Confidentiality of Alcohol and Drug Abuse Patient Records regulations: The Federal rules restrict any use of the information to criminally investigate or prosecute any alcohol or drug abuse patient.[facility] HospitalIn the event this information is protected by the Federal Confidentiality of Alcohol and Drug Abuse Patient Records regulations: The Federal rules restrict any use of the information to criminally investigate or prosecute any alcohol or drug abuse patient.[facility] HospitalIn the event this information is protected by the Federal Confidentiality of Alcohol and Drug Abuse Patient Records regulations: The Federal rules restrict any use of the information to criminally investigate or prosecute any alcohol or drug abuse patient.[facility] HospitalIn the event this information is protected by the Federal Confidentiality of Alcohol and Drug Abuse Patient Records regulations: The Federal rules restrict any use of the information to criminally investigate or prosecute any alcohol or drug abuse patient.[facility] HospitalIn the event this information is protected by the Federal Confidentiality of Alcohol and Drug Abuse Patient Records regulations: The Federal rules restrict any use of the information to criminally investigate or prosecute any alcohol or drug abuse patient.[facility] HospitalIn the event this information is protected by the Federal Confidentiality of Alcohol and Drug Abuse Patient Records regulations: The Federal rules restrict any use of the information to criminally investigate or prosecute any alcohol or drug abuse patient.[facility] HospitalIn the event this information is protected by the Federal Confidentiality of Alcohol and Drug Abuse Patient Records regulations: The Federal rules restrict any use of the information to criminally investigate or prosecute any alcohol or drug abuse patient.[facility] HospitalIn the event this information is protected by the Federal Confidentiality of Alcohol and Drug Abuse Patient Records regulations: The Federal rules restrict any use of the information to criminally investigate or prosecute any alcohol or drug abuse patient.[facility] HospitalIn the event this information is protected by the Federal Confidentiality of Alcohol and Drug Abuse Patient Records regulations: The Federal rules restrict any use of the information to criminally investigate or prosecute any alcohol or drug abuse patient.[facility] HospitalIn the event this information is protected by the Federal Confidentiality of Alcohol and Drug Abuse Patient Records regulations: The Federal rules restrict any use of the information to criminally investigate or prosecute any alcohol or drug abuse patient.[facility] HospitalIn the event this information is protected by the Federal Confidentiality of Alcohol and Drug Abuse Patient Records regulations: The Federal rules restrict any use of the information to criminally investigate or prosecute any alcohol or drug abuse patient.[facility] HospitalIn the event this information is protected by the Federal Confidentiality of Alcohol and Drug Abuse Patient Records regulations: The Federal rules restrict any use of the information to criminally investigate or prosecute any alcohol or drug abuse patient.[facility] HospitalIn the event this information is protected by the Federal Confidentiality of Alcohol and Drug Abuse Patient Records regulations: The Federal rules restrict any use of the information to criminally investigate or prosecute any alcohol or drug abuse patient.[facility] HospitalIn the event this information is protected by the Federal Confidentiality of Alcohol and Drug Abuse Patient Records regulations: The Federal rules restrict any use of the information to criminally investigate or prosecute any alcohol or drug abuse patient.[facility] HospitalIn the event this information is protected by the Federal Confidentiality of Alcohol and Drug Abuse Patient Records regulations: The Federal rules restrict any use of the information to criminally investigate or prosecute any alcohol or drug abuse patient.[facility] HospitalIn the event this information is protected by the Federal Confidentiality of Alcohol and Drug Abuse Patient Records regulations: The Federal rules restrict any use of the information to criminally investigate or prosecute any alcohol or drug abuse patient.[facility] HospitalIn the event this information is protected by the Federal Confidentiality of Alcohol and Drug Abuse Patient Records regulations: The Federal rules restrict any use of the information to criminally investigate or prosecute any alcohol or drug abuse patient.[facility] HospitalIn the event this information is protected by the Federal Confidentiality of Alcohol and Drug Abuse Patient Records regulations: The Federal rules restrict any use of the information to criminally investigate or prosecute any alcohol or drug abuse patient.[facility] Reason for Visit (unrecogniz ed section [...] Procedures CONSULT TO ORTHOPAEDICS OFFICE/OUTPATIENT [facility] MDM 60 MINUTES Ginger Lugo MD [address] [place] [address] Referral ID Status Reason Start Date Expiration Date V isits Requested Visits Authorized [id number] Closed PCP Requested Referral 03/28/2024 03/28/2025 1 1 Reason Comments Forms Tyrrell disability f orms Reason Comments Established Patient [...] EXTREM W/O CONTRAST Torsten Ayers V, DO [address] [place] [address] [place] [address] Referral ID Status Reason Start Date Expiration Date V isits Requested Visits Authorized [id number] Closed Auto-Generate d Referral 05/13/2024 06/12/2025 1 [...] [facility] DEPARTMENT Diagnoses ov Procedures ov [place] [facility] [place] [address] Referral ID Status Reason Start Date Expiration Date Visits Requested Visits Authorized [id number] Authorized Financial Clearance Required - Self Pay [...] knee arthroplasty (HCC) Rocco Barragan MD [address] [place] [address] Phone: tel: fax: [facility] [address] [place] [address] Phone: tel: fax: Referral ID Status Reason Start Date Expiration Date V isits Requested Visits Authorized [id number] Authorized 11/28/2024 11/28/2025 10 24 Reason Onset Date Comments Refill Request 01/04/2025 Reason Comments Letter No show #1 Reason Onset Date Comments Refill Request 04/07/2025 See notes Reason Onset Date Comments Refill Request 05/21/2025 Reason Comments Error (VOID this visit) Care Teams (unrecognized sec tion and content) Slasher Hand Relationship Specialty Start Date End Date Ginger Lugo MD [address] [place] [address] PCP - General Family Practice 10/20/12 Slasher Hand Relationship Specialty Start Date End Date Ginger Lugo MD [address] [place] [address] PCP - General Family Practice 10/20/12 Slasher Hand Relationship Specialty Start Date End Date Ginger Lugo MD [address] [place] [id number] PCP - General Family Practice 10/20/12 Slasher Hand Relationship Specialty Start Date End Date Ginger Lugo MD [facility] [place], [place] [id number] PCP - General Family Practice 10/20/12 Slasher Hand Relationship Specialty Start Date End Date Ginger Lugo MD [address] [facility] [place] [address] PCP - General Family Practice 10/20/12 Slasher Hand Relationship Specialty Start Date End Date Ginger Lugo MD [address] [facility] [place] [address] PCP - General Family Practice 10/20/12 Slasher Hand Relationship Specialty Start Date End Date Ginger Lugo MD [address] [facility] [place] [address] PCP - General Family Practice 10/20/12 Slasher Hand Relationship Specialty Start Date End Date Ginger Lugo MD [address] [facility] [place] [address] PCP - General Family Practice 10/20/12 Slasher Hand Relationship Specialty Start Date End Date Ginger Lugo MD [address] [facility] [place] [address] PCP - General Family Medicine 10/20/12 Slasher Hand Relationship Specialty Start Date End Date Ginger Lugo MD [address] [facility] [place] [address] PCP - General Family Medicine 10/20/12 Slasher Hand Relationship Specialty Start Date End Date Ginger Lugo MD [address] [facility] [place] [address] PCP - General Family Medicine 10/20/12 Slasher Hand Relationship Specialty Start Date End Date Ginger Lugo MD [address] [facility] [place] [address] PCP - General Family Medicine 10/20/12 Slasher Hand Relationship Specialty Start Date End Date Ginger Lugo MD [address] [facility] [place] [address] PCP - General Family Medicine 10/20/12 Team [...] MD Admit Provider, Attending Provid er Active Slasher Hand Relationship Specialty Start Date End Date Ginger Lugo MD [address] [place] [address] PCP - General Family Medicine 10/20/12 Team Status: Inactive Member Role Status Dates Dr. Ginger Lugo MD Primary Care Provider Active Dr. Ashley Patton MD Attending Provider Active Slasher Hand Relationship Specialty Start Date End Date Ginger Lugo MD [address] [place], [place] [address] PCP - General Family Medicine 10/20/12 Slasher Hand Relationship Specialty Start Date End Date Ginger Lugo MD [address] [place], [place] [address] PCP - General Family Medicine 10/20/12 Team [...] MD Admit Provider, Attending Prov ider Active Slasher Hand Relationship Specialty Start Date End Date Ginger Lugo MD [address] [place], [place] [address] PCP - General Family Medicine 10/20/12 Team [...] Dr. Sen Guzman MD Other Provider Active Slasher Hand Relationship Specialty Start Date End Date Ginger Lugo MD [address] [place], [place] [address] PCP - General Family Medicine 10/20/12 Slasher Hand Relationship Specialty Start Date End Date Ginger Lugo MD [address] [place], [place] [address] PCP - General Family Medicine 10/20/12 Slasher Hand Relationship Specialty Start Date End Date Ginger Lugo MD [address] [place], [place] [address] PCP - General Family Medicine 10/20/12 Slasher Hand Relationship Specialty Start Date End Date Ginger Lugo MD [address] [place] [address] PCP - General 10/07/22 Slasher Hand Relationship Specialty Start Date End Date Ginger Lugo MD [address] [place], [place] [address] PCP - General 10/07/22 Slasher Hand Relationship Specialty Start Date End Date Ginger Lugo MD [address] [place] [address] PCP - General 10/07/22 Team Status: Active Member Role Status Dates Dr. Ginger Lugo MD Primary Care Provider Active Dr. Fernandez Bryant DO Emergency Provider Active Dr. Gerardo Watkins DO Admit Provider, Attending Pro vider Active Slasher Hand Relationship Specialty Start Date End Date Ginger Lugo MD [address] [place] [address] PCP - General Family Medicine 10/20/12 Team [...] Dr. Jude Mckeon MD Other Provider Active Slasher Hand Relationship Specialty Start Date End Date Ginger Lugo MD [address] [place] [address] PCP - General Family Medicine 10/20/12 Slasher Hand Relationship Specialty Start Date End Date Ginger Lugo MD [address] [place] [address] PCP - General Family Medicine 10/20/12 Slasher Hand Relationship Specialty Start Date End Date Ginger Lugo MD [address] [place] [address] PCP - General Family Medicine 10/20/12 Slasher Hand Relationship Specialty Start Date End Date Ginger Lugo MD [address] [place] [address] PCP - General Family Medicine 10/20/12 Slasher Hand Relationship Specialty Start Date End Date Ginger Lugo MD [address] [place] [address] PCP - General Family Medicine 10/20/12 Slasher Hand Relationship Specialty Start Date End Date Ginger Lugo MD [address] [place] [address] PCP - General Family Medicine 10/20/12 Slasher Hand Relationship Specialty Start Date End Date Ginger Lugo MD [address] [place] [address] PCP - General Family Medicine 10/20/12 Slasher Hand Relationship Specialty Start Date End Date Ginger Lugo MD [address] [place] [address] PCP - General Family Medicine 10/25/21 Slasher Hand Relationship Specialty Start Date End Date Ginger Lugo MD [address] [place] [address] PCP - General Family Medicine 10/20/12 Slasher Hand Relationship Specialty Start Date End Date Ginger Lugo MD [address] [place] [address] PCP - General Family Medicine 10/20/12 Slasher Hand Relationship Specialty Start Date End Date Ginger Lugo MD [address] [place] [address] PCP - General Family Medicine 10/20/12 Slasher Hand Relationship Specialty Start Date End Date Ginger Lugo MD [address] [place] [address] PCP - General Family Medicine 10/20/12 Slasher Hand Relationship Specialty Start Date End Date Ginger Lugo MD [address] [place] [address] PCP - General Family Medicine 10/20/12 Slasher Hand Relationship Specialty Start Date End Date Ginger Lugo MD [address] [place] [address] PCP - General Family Medicine 10/20/12 Slasher Hand Relationship Specialty Start Date End Date Ginger Lugo MD [address] [facility] [place] [address] PCP - General Family Medicine 10/20/12 Slasher Hand Relationship Specialty Start Date End Date Ginger Lugo MD [address] [facility] [place] [address] PCP - General Family Medicine 10/20/12 Slasher Hand Relationship Specialty Start Date End Date Ginger Lugo MD [address] [facility] [place] [address] PCP - General Family Medicine 10/20/12 Slasher Hand Relationship Specialty Start Date End Date Ginger Lugo MD [address] [place] [address] PCP - General Family Medicine 10/20/12 Slasher Hand Relationship Specialty Start Date End Date Ginger Lugo MD [address] [facility] [place] [address] PCP - General Family Medicine 10/20/12 Slasher Hand Relationship Specialty Start Date End Date Ginger Lugo MD [address] [facility] [place] [address] PCP - General Family Medicine 10/20/12 Slasher Hand Relationship Specialty Start Date End Date Ginger Lugo MD [address] [facility] [place] [address] PCP - General Family Medicine 10/20/12 Slasher Hand Relationship Specialty Start Date End Date Ginger Lugo MD [address] [place] [address] PCP - General Family Medicine 10/20/12 Slasher Hand Relationship Specialty Start Date End Date Ginger Lugo MD [address] [place], [place] [address] PCP - General Family Medicine 10/20/12 Slasher Hand Relationship Specialty Start Date End Date Ginger Lugo MD [address] [place], [place] [address] PCP - General Family Medicine 10/20/12 Slasher Hand Relationship Specialty Start Date End Date Ginger Lugo MD [address] [place] [address] PCP - General Family Medicine 10/20/12 Slasher Hand Relationship Specialty Start Date End Date Ginger Lugo MD [address] [place] [address] PCP - General Family Medicine 10/20/12 Slasher Hand Relationship Specialty Start Date End Date Ginger Lugo MD [address] [place] [address] PCP - General Family Medicine 10/20/12 Slasher Hand Relationship Specialty Start Date End Date Ginger Lugo MD [address] [place] [address] PCP - General Family Medicine 10/20/12 Slasher Hand Relationship Specialty Start Date End Date Ginger Lugo MD [address] [place], [place] [address] PCP - General Family Medicine 10/20/12 Slasher Hand Relationship Specialty Start Date End Date Ginger Lugo MD [address] [place], [place] [address] PCP - General Family Medicine 10/20/12 Slasher Hand Relationship Specialty Start Date End Date Ginger Lugo MD [address] [facility] [address] PCP - General Family Medicine 10/20/12 Maryam Retana, HEAD OF HISTORY.FUEL INJECTION SERVICER [address] [facility] [place] [address] [employer] Sales Executive Family [facility] 08/15/24 Nuha Mosquera HEAD OF HISTORY.FUEL INJECTION SERVICER [address] [facility] [place] [address] Commercial [employer] [facility] 08/15/24 Slasher Hand Relationship Specialty Start Date End Date Ginger Lugo MD [address] [facility] [place] [address] PCP - General Family Medicine 10/20/12 Maryam Retana HEAD OF HISTORY.FUEL INJECTION SERVICER [address] [facility] [place] [address] [employer] [facility] 08/15/24 Nuha Mosquera HEAD OF HISTORY.FUEL INJECTION SERVICER [address] [facility] [address] [employer] [facility] 08/15/24 Slasher Hand Relationship Specialty Start Date End Date Ginger uLgo MD [address] [facility] [place] [address] PCP - General Family Medicine 10/20/12 Maryam Retana, HEAD OF HISTORY.FUEL INJECTION SERVICER [address] [place] [address] [employer] Sales Executive Family Medicine 08/15/24 Nuha Mosquera APRN.FUEL INJECTION SERVICER [address] [facility] [place] [address] [employer] [facility] 08/15/24 Slasher Hand Relationship Specialty Start Date End Date Ginger Lugo MD [address] [facility] [place] [address] PCP - General Family Medicine 10/20/12 Maryam Retana, KURT.FUEL INJECTION SERVICER [address] [facility] [place] [address] [employer] [facility] 08/15/24 Nuha Mosquera APRN.FUEL INJECTION SERVICER [address] [facility] [place] [address] [employer] [facility] 08/15/24 Slasher Hand Relationship Specialty Start Date End Date Ginger Lugo MD [address] [facility] [place] [address] PCP - General Family Medicine 10/20/12 Maryam Retana, HEAD OF HISTORY.FUEL INJECTION SERVICER [address] [facility] [place] [address] [employer] [facility] 08/15/24 Nuha Mosquera HEAD OF HISTORY.FUEL INJECTION SERVICER [address] [facility] [address] [employer] [facility] 08/15/24 Slasher Hand Relationship Specialty Start Date End Date Ginger Lugo MD [address] [facility] [place] [address] PCP - General Family Medicine 10/20/12 Maryam Retana, HEAD OF HISTORY.FUEL INJECTION SERVICER [address] [place] [address] [employer] Sales Executive Family Medicine 08/15/24 Nuha Mosquera APRN.FUEL INJECTION SERVICER [address] [place] [address] [employer] Sales Executive Family Medicine 08/15/24 Slasher Hand Relationship Specialty Start Date End Date Ginger Lugo MD [address] [place] [address] PCP - General Family Medicine 10/20/12 Maryam Retana APRN.FUEL INJECTION SERVICER [address] [place] [address] [employer] Sales Executive Family Medicine 08/15/24 Nuha Mosquera HEAD OF HISTORY.FUEL INJECTION SERVICER [address] [place] [address] [employer] Sales Executive Family [facility] 08/15/24 Slasher Hand Relationship Specialty Start Date End Date Ginger Lugo MD [address] [place] [address] PCP - General Family Medicine 10/20/12 Maryma Retana HEAD OF HISTORY.FUEL INJECTION SERVICER [address] [place] [address] [employer] Sales Executive Family Medicine 08/15/24 Nuha Mosquera HEAD OF HISTORY.FUEL INJECTION SERVICER [address] [place] [address] [employer] Sales Executive Family Medicine 08/15/24 Slasher Hand Relationship Specialty Start Date End Date Ginger Lugo MD [address] [place] [address] PCP - General Family Medicine 10/20/12 Maryam Retana APRN.FUEL INJECTION SERVICER [address] [place] [address] [employer] Sales Executive Family Medicine 08/15/24 Nuha Mosquera APRN.FUEL INJECTION SERVICER [address] [place] [address] [employer] Sales Executive Family Medicine 08/15/24 Slasher Hand Relationship Specialty Start Date End Date Ginger Lugo MD [address] [place] [address] PCP - General Family Medicine 10/20/12 Maryam Retana APRN.FUEL INJECTION SERVICER [address] [place] [address] [employer] Sales Executive Family Medicine 08/15/24 Nuha Mosquera HEAD OF HISTORY.FUEL INJECTION SERVICER [address] [place] [address] [employer] [facility] 08/15/24 Slasher Hand Relationship Specialty Start Date End Date Ginger Lugo MD [address] [place] [address] PCP - General Family Medicine 10/20/12 Maryam Retana HEAD OF HISTORY.FUEL INJECTION SERVICER [address] [place] [address] [employer] Sales Executive Family Medicine 08/15/24 Nuha Mosquera HEAD OF HISTORY.FUEL INJECTION SERVICER [address] [place] [address] [employer] Sales Executive Family Medicine 08/15/24 Slasher Hand Relationship Specialty Start Date End Date Ginger Lugo MD [address] [facility] [place] [address] PCP - General Family Medicine 10/20/12 Maryam Retana, HEAD OF HISTORY.FUEL INJECTION SERVICER [address] [place] [address] [employer] Sales Executive Family Medicine 08/15/24 Nuha Mosquera, HEAD OF HISTORY.FUEL INJECTION SERVICER [address] [place] [address] [employer] [facility] 08/15/24 Slasher Hand Relationship Specialty Start Date End Date Ginger Lugo MD [address] [place] [address] PCP - General Family Medicine 10/20/12 Maryam Retana, HEAD OF HISTORY.FUEL INJECTION SERVICER [address] [place] [address] [employer] [facility] 08/15/24 Nuha Mosquera, HEAD OF HISTORY.FUEL INJECTION SERVICER [address] [place] [address] [employer] Sales Executive Family Medicine 08/15/24 Slasher Hand Relationship Specialty Start Date End Date Ginger Lugo MD [address] [place] [address] PCP - General Family Medicine 10/25/21 Slasher Hand Relationship Specialty Start Date End Date Ginger Lugo MD [address] [place] [address] PCP - General Family Medicine 10/25/21 Slasher Hand Relationship Specialty Start Date End Date Ginger Lugo MD [address] [place], [place] [address] PCP - General Family Medicine 10/25/21 Slasher Hand Relationship Specialty Start Date End Date Ginger Lugo MD [address] [place], [place] [address] PCP - General Family Medicine 10/25/21 Slasher Hand Relationship Specialty Start Date End Date Ginger Lugo MD [address] [place], [place] [address] PCP - General Family Medicine 10/25/21 Slasher Hand Relationship Specialty Start Date End Date Ginger Lugo MD [address] [place], [place] [address] PCP - General Family Medicine 10/20/12 Maryam Retana APRN.FUEL INJECTION SERVICER [address] [place], [place] [address] [employer] Sales Executive Family Medicine 08/15/24 Nuha Mosquera APRN.FUEL INJECTION SERVICER [address] [place], [place] [address] [employer] Sales Executive Family Medicine 08/15/24 Slasher Hand Relationship Specialty Start Date End Date Ginger Lugo MD [address] [place], [place] [address] PCP - General Family Medicine 10/20/12 Maryam Retana APRN.FUEL INJECTION SERVICER [address] [place] [address] [employer] Sales Executive Family Medicine 08/15/24 Nuha Mosquera APRN.FUEL INJECTION SERVICER [address] [facility] [place] [address] [employer] Sales Executive Family Medicine 08/15/24 Slasher Hand Relationship Specialty Start Date End Date Ginger Lugo MD [address] [facility] [place] [address] PCP - General Family Medicine 10/20/12 Maryam Retana, HEAD OF HISTORY.FUEL INJECTION SERVICER [address] [place] [address] [employer] Sales Executive Family Medicine 08/15/24 Nuha Mosquera HEAD OF HISTORY.FUEL INJECTION SERVICER [address] [facility] [place] [address] [employer] [facility] 08/15/24 Slasher Hand Relationship Specialty Start Date End Date Ginger Lugo MD [address] [facility] [place] [address] PCP - General Family Medicine 10/20/12 Maryam Retana, HEAD OF HISTORY.FUEL INJECTION SERVICER [address] [place] [address] [employer] Sales Executive Family Medicine 08/15/24 Nuha Mosquera HEAD OF HISTORY.FUEL INJECTION SERVICER [address] [facility] [place] [address] [employer] Sales Executive Family Medicine 08/15/24 Slasher Hand Relationship Specialty Start Date End Date Ginger Lugo MD [address] [facility] [place] [address] PCP - General Family Medicine 10/20/12 Maryam Retana, HEAD OF HISTORY.FUEL INJECTION SERVICER [address] [place] [address] [employer] Sales Executive Family Medicine 08/15/24 Nuha Mosquera APRN.CNP [address] [place] [address] Commercial [employer] Sales Executive [facility] 08/15/24 Slasher Hand Relationship Specialty Start Date End Date Ginger Lugo MD [address] [place] [address] PCP - General 10/07/22 <item> Privacy Markings [...] dose 183 (New Bag - Prov ider: Lucina Olivo RN)193 (Stopped - Provider: Lucina Olivo [...] BE BASED ON THE PRIMARY CLINICAL RECORDS. [employer] provides no warranty or guarantee of the accuracy or completeness of information in this document.
[2025-06-02 02:04] VITALS: BP 144/76; PULSE 62; RESP 18; TEMP 36.9; O2SAT 95
--- NOTE | 2025-06-02 02:13 | ECHOCS_ITS ---
Reason For Study Reason For Study: CHEST PAIN Procedure This was a 2D Doppler, Color Flow transthoracic echocardiogram. The study was technically difficult. Due to body habitus. Contrast injection was performed. Exam performed in department. Left Ventricle Normal LV size. Mild concentric left ventricular hypertrophy. Left ventricular systolic function is normal. The left ventricular ejection fraction is 60 %. Stage 1 diastolic dysfunction. Right Ventricle Normal RV size. Normal systolic function. Atria Normal left atrium. Normal right atrium. Mitral Valve The mitral valve is structurally normal. No prolapse or stenosis seen. Tricuspid Valve Normal tricuspid valve. Trivial tricuspid valve insufficiency. Pulmonary artery systolic pressure is 28 mmHg. Aortic Valve The aortic valve is not well visualized in the short axis view. Mild focal aortic valve thickening. There is no aortic stenosis. Trivial aortic valve insufficiency. Pulmonic Valve The pulmonic valve is not well visualized. Great Vessels Normal sized aortic root. Pericardium/Pleural No pericardial effusion. Medication Diluted definity 2.0ml given slow IV push to enhance endocardial definition. MMode/2D Measurements & Calculations LVIDd: 5.2 cm IVSd: 1.1 cm Ao root diam: 3.5 cm LVIDs: 3.2 cm LVPWd: 1.2 cm RVDd: 3.9 cm FS: 37.6 % LAV(MOD-bp): 61.7 ml LVAd ap4: 37.8 cm2 LVAd ap2: 34.0 cm2 LAV(MOD-bp) Indexed: 26.3 ml/m2 LVLd ap4: 8.6 cm LVLd ap2: 8.4 cm LAV(MOD-sp2): 56.3 ml EDV(MOD-sp4): 139.5 ml EDV(MOD-sp2): 114.8 ml LAV(MOD-sp4): 58.2 ml EDV(sp4-el): 140.3 ml EDV(sp2-el): 117.4 ml LVAs ap4: 20.2 cm2 LVAs ap2: 20.3 cm2 LVLs ap4: 7.3 cm LVLs ap2: 7.0 cm ESV(MOD-sp4): 48.9 ml ESV(MOD-sp2): 48.8 ml ESV(sp4-el): 47.6 ml ESV(sp2-el): 50.4 ml EF(MOD-sp4): 65.0 % EF(MOD-sp2): 57.4 % EF(sp4-el): 66.1 % SV(MOD-sp4): 90.6 ml SV(MOD-sp2): 65.9 ml SV(sp4-el): 92.7 ml SI(MOD-sp4): 38.6 ml/m2 SI(MOD-sp2): 28.1 ml/m2 LA A4 area: 20.6 cm2 LA dimension(2D): 3.9 cm TAPSE: 2.3 cm Time Measurements MV dec time: 0.19 sec Doppler Measurements & Calculations MV E max braden: 102.7 cm/sec Lat Peak E' Braden: 6.1 cm/sec Med Peak E' Braden: 8.4 cm/sec MV A max braden: 80.9 cm/sec E/E' lat: 16.7 E/E' med: 12.2 MV E/A: 1.3 MV V2 max: 116.0 cm/sec MV P1/2t max braden: 123.4 cm/sec Ao V2 max: 173.5 cm/sec MV max P.4 mmHg MV P1/2t: 62.6 msec Ao max P.0 mmHg MV V2 mean: 61.3 cm/sec MV dec slope: 576.8 cm/sec2 Ao V2 mean: 115.8 cm/sec MV mean P.9 mmHg MVA(P1/2t): 3.5 cm2 Ao mean P.2 mmHg MV V2 VTI: 29.5 cm Ao V2 VTI: 37.0 cm AV (velocity ratio): 0.69 LV V1 max: 125.6 cm/sec PA V2 max: 120.9 cm/sec TR max braden: 249.2 cm/sec LV V1 max P.3 mmHg TR max P.9 mmHg LV V1 mean P.2 mmHg LV V1 mean: 99.0 cm/sec LV V1 VTI: 25.6 cm ECHO/Echo Complete W/ Contrast Interpretation Summary The left ventricular ejection fraction is 60 %. Stage 1 diastolic dysfunction. Mild concentric left ventricular hypertrophy. Mild focal aortic valve thickening. The study was technically difficult. Contrast injection was performed. Compared to prior study, there is no significant change. Ordering Physician: Vladislav Romano Referring Physician: Sonny Price Performed By: Larissa Knox, IRIS, RVT
[2025-06-02 02:20] LABS: Red Blood Cells-Urine 0-5 SEEN /hpf (0-5); Squamous Epithelial Cells - UA 0-5 SEEN /hpf (0-5)
[2025-06-02 02:34] VITALS: BMI 42.1
[2025-06-02 02:40] VITALS: BP 147/84; PULSE 65; RESP 16; TEMP 36.1; O2SAT 97
--- OUTSIDE RECORDS SUMMARY | 2025-06-02 03:01 | XMS RPT_ITS | CCD ---
Author Organization [facility] CliniSyma Care Team Providers Care Box Car Bracer Name Role Phone Unavailable Unavailable Unavailable Swiatek, [...] Megan, Dr. Sen Li Referring Un available Bill[place], Dr. Chao Guevara Admitting Unav ailable Bill[place], Dr. Chao Guevara Attending Unav ailable Megan, Dr. Sen Li Referring Un available [place], Dr. Chao Guevara Admitting Unav ailable [place], Dr. Chao Guevara Attending Unav ailable Pema, Dr. Ginger Alegria Primary Care Unavail able [employer], Dr. Ginger Alegria Primary Care Unavail able LEMDIANELYS, DO BEAU MARTINEZ Attending Unava ilable Megan, Dr. Sen Li Attending Un available Megan, Dr. Sen Li Admitting Un available [employer], Dr. Ginger Alegria Primary Care Unavail able Megan, Dr. Sen Li Attending Un available Megan, Dr. Sen Li Admitting Un available [employer], Dr. Ginger Alegria Primary Care Unavail able Megan, Dr. Sen Li Attending Un available Megan, Dr. Sen Li Admitting Un available Pema, Dr. Ginger Alegria Primary Care Unavail able Megan, Dr. Sen Li Attending Un available Megan, Dr. Sen Li Admitting Un available [employer], Dr. Ginger Alegria Primary Care Unavail able [...] Unavailable GINGER LUGO Primary Care Unavailable Mazin TEA BLENDER.Maryam RUBIO Unavailable Suppan TEA BLENDER.RAMIRO, Nuha A Unavailable RIANNA MEJIA Attending Unavailable GINGER LUGO Primary Care Unavailable PEMA, GINGER Alvares Primary Care Unavailable LEBRON RAPHAEL Attending Unavailable GINGER LUGO Primary Care Unavailable PROVIDER, UNKNOWN Referring Unavailable Suppan TEA BLENDER.BURNER SHAFT, Nuha A Unavailable Suppan TEA BLENDER.RAMIRO, Nuha A Unavailable [phone] Pema, Ginger Primary Care Unavailable Pema, Ginger [...] ROCCO W Referring Unavailable DORITAALY Attending Unavailable EPMA, GINGER Alvares Primary Care Unavailable ACUS, ROCCO W Admitting Unavailable TEJA OLPEZ Attending Unavailable ACUS, ROCCO W Referring Unavailable [...] on above: Take 2 tablets by mo [facility] once daily. Take 2 tablets by mo [facility] twice daily. Take 2 tablets by mo [facility] two times a day. 24 hr metoprolol [...] for pain for up to 3 days. [id number] 200 actuat albuterol 0.09 mg/actuat metered dose [...] 11:21am docusate sodium 50 mg / sennosides, longterm 8.6 mg oral tablet (3 sources) Start: [...] weekly bmp, cbc, and LFT. Fax to [phone] glimepiride 2 mg oral tablet (20 sources) [...] Coronary arteriosclerosis; Translations: [Atherosclerotic heart disease of squaxin coronary artery without angina pectoris] Onset: 10-13-2022 [...] 04-04-2024 Episodic Other aftercare (1 source) Other predatory animal exterminator (current) drug therapy; Translations: [Other predatory animal exterminator (current) drug therapy] Onset: 10-07-2022 Episodic Other [...] Test Name Value Interpretation Reference Range Facility [facility] 05-26-2025 [facility]ICK [facility]OP[facility] ([id number]) 1970 M [facility] Date Time Provider Department 05/26/25 3:00 PM [place] V [facility] During your visit today, we [...] knee. - Fitted patient for a medial service trainer brace to reduce pressure on the affected [...] these instructions. Informed Consent Consent Obtained: Verbal [place] Protocol SIGN IN TIME OUT Recording using InboxFever software for draft documentation of the visit was discussed with the patient/authorized retail sales representative; all questions welcomed and answered. Patient/authorized retail sales representative agreed to proceed Mary Dale MA 05/26/2025 3:32 PM Signed PT ASSESSMENT - CASTING ROOM Nick presents for Application of brace. Applied Large OA medial service trainer brace to Right knee. Patient electronically signed [...] [Z96.652] Order(s):Large Joint Arthro/Inj: R knee joint [UZW372] Order #: [id number] [] BUPivacaine (PF) 0.5 % (5 mg/mL) 4 mL injectionDisp: Rfl: [] lidocaine (PF) 10 mg/m (more content not included)... [facility] NICK LOPES ([id number]) 1970 [facility] Date Time Provider Department 02/08/25 GINGER LUGO [facility] During your visit today, we recorded the following information about you: Asha Sy LPN 02/08/2025 11:00 AM Signed Sent patient no show letter #1 Allergies As of Date: 02/08/2025 (No Known Allergies) Date Reviewed: 10/24/2024 Reviewed by: Nuha Mosquera APRN.BURNER SHAFT - Fully Assessed Reason for Visit: Letter [...] [Z82.49] Overweight [E66.3] 09/25/2023 Tobacco Use Disord-Unsp [TQJ3642] SHOULDER REGION DIS NEC [M25.819] 01/27/2007 01/02/2009 JOINT PAIN-PELVIS [M25.559] 06/27/2008 01/02/2009 SPRAIN LUMBAR REGION [S33.5XXA] 06/27/2008 01/02/2009 JOINT PAIN-UP/ARM [M25.529] 06/27/2008 06/27/2008 JOINT PAIN-SHLDER [M25.519] 06/27/2008 01/02/2009 Routine General Medical Examination at [facility]*01/02/2009 12/14/2013 Class: Chronic Thoracic or Lumbosacral Neuritis or Radiculitis*02/23/2009 12/14/2013 Hypothyroidism [E03.9] 10/09/2009 Essential hypertension, benign [I10] 02/06/2010 Leukocytosis [D72.829] 09/19/2011 03/28/2024 Sprain of lumbar region [S33.5XXA] 10/18/2012 12/14/2013 Backache, unspecified [M54.9] 11/11/2012 12/14/2013 Cervicalgia [M54.2] 04/20/2015 Lumbago [M54.50] 04/20/2015 03/28/2024 Concussion without loss of consciousness [S06.0*05/08/2015 04/23/2018 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*05/08/2015 Urinary incontinence [R32] 06/13/2015 Frequency [STY9670] 06/13/2015 04/23/2018 Urgency of urination [R39.15] 06/13/2015 [...] spine [M48.02] 06/28/2022 Coronary artery disease involving squaxin fagan*01/24/2023 S/P PTCA (percutaneous transluminal coronary an*01/24/2023 [...] Erectile dysfunction (more content not included)... Normal [facility] CNCOon 01-11-2025 CNCO Letter Text Normal [facility] CNPNon 01-04-2025 [facility] ([id number]) 1970 [facility] Date Time Provider Department 01/04/25 [facility] During your visit today, we recorded [...] glimepiride 2 weeks ago Lalita is from [facility] put on after total knee to prevent clots so will need to call ortho office to see if continue . HOWIE Cruz Lisa, MA 01/10/2025 11:44 AM Signed See nurse triage 01/05/25 Allergies As of Date: 01/04/2025 (No Known Allergies) Date Reviewed: 10/24/2024 Reviewed by: Nuha Mosquera APRN.BURNER SHAFT - Fully Assessed Reason for Visit: Refill [...] [Z82.49] Overweight [E66.3] 09/25/2023 Tobacco Use Disord-Unsp [FPO8046] SHOULDER REGION DIS NEC [M25.819] 01/27/2007 01/02/2009 JOINT PAIN-PELVIS [M25.559] 06/27/2008 01/02/2009 SPRAIN LUMBAR REGION [S33.5XXA] 06/27/2008 01/02/2009 JOINT PAIN-UP/ARM [M25.529] 06/27/2008 06/27/2008 JOINT PAIN-SHLDER [M25.519] 06/27/2008 01/02/2009 Routine General Medical Examination at [facility]*01/02/2009 12/14/2013 Class: Chronic Thoracic or Lumbosacral Neuritis or Radiculitis*02/23/2009 12/14/2013 Hypothyroidism [E03.9] 10/09/2009 Essential hypertension, benign [I10] 02/06/2010 Leukocytosis [D72.829] 09/19/2011 03/28/2024 Sprain of lumbar region [S33.5XXA] 10/18/2012 12/14/2013 Backache, unspecified [M54.9] 11/11/2012 12/14/2013 Cervicalgia [M54.2] 04/20/2015 Lumbago [M54.50] 04/20/2015 03/28/2024 Concussion without loss of consciousness [S06.0*05/08/2015 04/23/2018 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*05/08/2015 Urinary incontinence [R32] 06/13/2015 Frequency [GRD1983] 06/13/2015 04/23/2018 Urgency of urination [R39.15] 06/13/2015 04/23/2018 Nocturia [R35.1] 06/13/2015 03/28/2024 Central sleep apnea [G47.31] 04/02/2018 Diabetes mellitus type 2, controlled, without c*03/25/2021 Obesity, Class III, BMI 40-49.9 (morbid obesity (more content not included)... Normal [facility] 12 Lead EKG performed by [facility] on 10-14-2024 12 Lead EKG performed by [id number] [place] [address] 12 Lead EKG performed by [facility] 10/14/24 1556 MR#: [id number] Acct: [id number] Name: ROMEL LOPES Rep #: [id number] : 1970 53 From: Lebron Mackenzie TOPOGRAPHICAL DRAFTER TOPOGRAPHICAL DRAFTER-C Attending Dr: Lebron Mackenzie NP-C Status: DEP AMB Ordering Dr: Lebron Mackenzie TOPOGRAPHICAL DRAFTER TOPOGRAPHICAL DRAFTER-C Date: 10/14/24 Location: [facility] Sex: M C Admitted: BMS/12 Lead EKG performed by [facility] ECG Report Interpretation ---Sinus Rhythm -RSR(V1) -nondiagnostic. PROBABLY NORMALElectronically signed on 10/19/2024 at 09:38 by Zheng Hurtadowood Software Version [id number] 10/19/24 0944 Date Lebron DAI CC: Dr. Ginger Lugo MD Date Dictated: 10/14/24 1556 Date Transcribed: 10/14/241555 Tank Processor: ELLIOT Signed Normal [facility] Cardiology Visit Reporton Cardiology Visit Report [facility] [address] [place] [address] OFFICE VISIT Date of Service: 10/14/24 MR#: [id number] Acct: [id number] Name: ROMEL LOPES Rep #: [id number] : 1970 Provider: MALAIKA castillo Age/Sex: 53/M Location: [facility] Status: Signed HPI HPI History of [...] Rate (L/min) 92 Intake Visit Reasons: S/P [facility] 10/09/23 Kit Assembler Required: No Accompanied by: Is patient in [...] you fallen in the past year?: Yes [facility] Medical History Infection due to ESBL-producing Escherichia coli Anxiety Depression Diabetes Kidney stones Former smoker BiPAP (biphasic positive airway pressure) dependence Sleep apnea Myocardial infarct Hypertension Atherosclerosis of coronary artery of squaxin heart without angina pectoris Leukocytosis JOSIAH (obstructive [...] Musc: Nega (more content not included)... Normal [facility] 10-05-2024 [facility] Telephone ([facility]) NICK LOPES ([id number]) 1970 [facility] Date Time Provider Department 10/05/24 [place] V [facility] During your visit today, we recorded the following information about you: Danielle Riojas MA 10/05/2024 12:46 PM Signed Pt's calling to see if the paperwork from [employer] has been received and if so, if it has been completed. It is for short term disability. It would have come from [employer] via mail or fax. Please review and [...] PM Signed Paperwork completed and returned to [facility]. Confirmation received. Copy sent for scanning. [...] [Z82.49] Overweight [E66.3] 09/25/2023 Tobacco Use Disord-Unsp [DSS0744] SHOULDER REGION DIS NEC [M25.819] 01/27/2007 01/02/2009 JOINT PAIN-PELVIS [M25.559] 06/27/2008 01/02/2009 SPRAIN LUMBAR REGION [S33.5XXA] 06/27/2008 01/02/2009 JOINT PAIN-UP/ARM [M25.529] 06/27/2008 06/27/2008 JOINT PAIN-SHLDER [M25.519] 06/27/2008 01/02/2009 Routine General Medical Examination at [facility]*01/02/2009 12/14/2013 Class: Chronic Thoracic or Lumbosacral Neuritis or Radiculitis*02/23/2009 12/14/2013 Hypothyroidism [E03.9] 10/09/2009 Essential hypertension, benign [I10] 02/06/2010 Leukocytosis [D72.829] 09/19/2011 03/28/2024 Sprain of lumbar region [S33.5XXA] 10/18/2012 12/14/2013 Backache, unspecified [M54.9] 11/11/2012 12/14/2013 Cervicalgia [M54.2] 04/20/2015 Lumbago [M54.50] 04/20/2015 03/28/2024 Concussion without loss of consciousness [S06.0*05/08/2015 04/23/2018 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*05/08/2015 Urinary incontinence [R32] 06/13/2015 Frequency [TOF7311] 06/13/2015 04/23/2018 Urgency of urination [R39.15] 06/13/2015 04/23/2018 Nocturia [R35.1] 06/13/2015 03/28/2024 Central sleep apnea [G47.31] 04/02/2018 Diabetes mellitus type 2, controlled, without c*03/25/2021 Obesity, Class III, BMI 40-49.9 (morbid obesity*06/17/2022 Situational stress [F43.9] 06/17/2022 THEO (generalize (more content not included)... Normal [facility] CBC panel Auto (Bld)on 10-04 Erythrocyte distribution width (RBC) [Ratio] 14.6 % Normal 11.5-15.0 [facility] Comment on above: Order Comment: Speci men Type: BLOOD SPECIMENOrdering Facility: [facility] Address: [address] [place] [address] Performed By: #### 5 8410-2 ####[facility] LABCLIA [id number] [place] [address] [place] Hematocrit (Bld) [Volume fraction] 44.1 % Normal 39.0-51.0 [facility] Comment on above: Order Comment: Speci men Type: BLOOD SPECIMENOrdering Facility: [facility] Address: [address] [place] [address] Performed By: #### 5 8410-2 ####[facility] LABCLIA [id number] [place] [address] [place] Hemoglobin (Bld) [Mass/Vol] 13.9 g/dL Normal 13.0-17.0 [facility] Comment on above: Order Comment: Speci men Type: BLOOD SPECIMENOrdering Facility: [facility] Address: [address] [place] [address] Performed By: #### 5 8410-2 ####[facility] LABIA [id number] [place] [address] [place] MCH (RBC) [Entitic mass] 28.1 pg Normal 26.0-34.0 [facility] Comment on above: Order Comment: Speci men Type: BLOOD SPECIMENOrdering Facility: [facility] Address: [address] [place] [address] Performed By: #### 5 8410-2 ####[facility] LABIA [id number] [place] [address] [place] MCHC (RBC) [Mass/Vol] 31.5 g/dL Normal 30.5-36.0 [facility] Comment on above: Order Comment: Speci men Type: BLOOD SPECIMENOrdering Facility: [facility] Address: [address] [place] [address] Performed By: #### 5 8410-2 ####[facility] LABIA [id number] [place] [address] [place] MCV (RBC) [Entitic vol] 89.1 fL Normal 80.0-100.0 [facility] Comment on above: Order Comment: Speci men Type: BLOOD SPECIMENOrdering Facility: [facility] Address: [address] [place] [address] Performed By: #### 5 8410-2 ####[facility] LABIA [id number] [place] [address] [place] Nucleated RBC (Bld) [#/Vol] 10*3/uL Normal <0.01 [facility] Comment on above: Order Comment: Speci men Type: BLOOD SPECIMENOrdering Facility: [facility] Address: [address] [place] [address] Performed By: #### 5 8410-2 ####[facility] LABCLIA [id number] [facility] [place] [address] [place] Platelet mean volume (Bld) [Entitic vol] 11.2 fL Normal 9.0-12.7 [facility] Comment on above: Order Comment: Speci men Type: BLOOD SPECIMENOrdering Facility: [facility] Address: [address] [place] [address] Performed By: #### 5 8410-2 ####[facility] LABCLIA [id number] [place] [address] [place] Platelets (Bld) [#/Vol] 145 10*3/uL Low 150-400 [facility] Comment on above: Order Comment: Speci men Type: BLOOD SPECIMENOrdering Facility: [facility] Address: [address] [place] [address] Performed By: #### 5 8410-2 ####[facility] LABCLIA [id number] [place] [address] [place] RBC (Bld) [#/Vol] 4.95 10*6/uL Normal 4.20-6.00 [facility] Comment on above: Order Comment: Speci men Type: BLOOD SPECIMENOrdering Facility: [facility] Address: [address] [place] [address] Performed By: #### 5 8410-2 ####[facility] LABCLIA [id number] [place] [address] [place] WBC (Bld) [#/Vol] 9.17 10*3/uL Normal 3.70-11.00 [facility] Comment on above: Order Comment: Speci men Type: BLOOD SPECIMENOrdering Facility: [facility] Address: [address] [place] [address] Performed By: #### 5 8410-2 ####[facility] LABCLIA [id number] [facility] [id number] [place] [address] [place] [facility] CNOVon 10-04-2024 CNOV Office Visit ([facility] ) NICK LOPES ([id number]) 1970 M [facility] Date Time Provider Department 10/04/24 4:00 PM [...] done in 2022. Sees Dr Patton at [facility] soon. Shortness of breath: no [...] Abs Lymph 1.00 - 4.00 k/uL 2.36 Pershing% % 5.0 Abs Pershing <0.87 k/uL 0.72 Eosin% % 0.5 Abs [...] Fam hx-cardiovas dis NEC n/a father, of [place] at 45 Hypothyroid Other and unspecified hyperlipidemia Sep 14 (dx'd in hospital for atypical CP) Overweight(278.02) Sleep apnea Tobacco use disorder complicating , childbirth, or the puerperium, unspecified as to episode of care or not applicable 1989 Unspecified essential hypertension PAST SURGICAL HISTORY Procedure Laterality Date EXCISION OF BENIGN LESION, COMPLICATED 2004 Lipoma, abd (more content not included)... Normal [facility] Carie 09-22-2024 RAMIRON Telephone ([facility]MRIWS) NICK LOPES ([id number]) 1970 M [facility] Date Time Provider Department 09/22/24 [place] During your visit today, we recorded the following information about you: Teagan Vergara 09/22/2024 10:46 AM Signed Patient's Liliana calling in requesting a CD to be made of patient's MRI completed on 05/26/24, and his knee and leg xray on 09/19/2024. Please let Liliana know once completed. Liliana's number: [phone] Teagan Vergara September 22, 2024 10:44 AM Kaylie Alvarez PSS 09/22/2024 1:03 PM Signed CD READY FOR BUSINESS TECHNOLOGY ANALYST AT [facility] RADIOLOGY LM TO LET PT KNOW Allergies [...] [Z82.49] Overweight [E66.3] 09/25/2023 Tobacco Use Disord-Unsp [[id number]] SHOULDER REGION DIS NEC [M25.819] 01/27/2007 01/02/2009 JOINT PAIN-PELVIS [M25.559] 06/27/2008 01/02/2009 SPRAIN LUMBAR REGION [S33.5XXA] 06/27/2008 01/02/2009 JOINT PAIN-UP/ARM [M25.529] 06/27/2008 06/27/2008 JOINT PAIN-SHLDER [M25.519] 06/27/2008 01/02/2009 Routine General Medical Examination at [facility]*01/02/2009 12/14/2013 Class: Chronic Thoracic or Lumbosacral Neuritis or Radiculitis*02/23/2009 12/14/2013 Hypothyroidism [E03.9] 10/09/2009 Essential hypertension, benign [I10] 02/06/2010 Leukocytosis [D72.829] 09/19/2011 03/28/2024 Sprain of lumbar region [S33.5XXA] 10/18/2012 12/14/2013 Backache, unspecified [M54.9] 11/11/2012 12/14/2013 Cervicalgia [M54.2] 04/20/2015 Lumbago [M54.50] 04/20/2015 03/28/2024 Concussion without loss of consciousness [S06.0*05/08/2015 04/23/2018 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 Normal [facility] CNOVon 09-19-2024 CNOV Office Visit (OR[facility] ) NICK LOPES ([id number]) 1970 M [facility] Date Time Provider Department 09/19/24 1:00 PM [...] 08/09/2024. Consult to the Endocrinology and Metabolic [place] (MIKAL) recommended prior to surgery. Area Deprivation [...] Stenosis of Spine Coronary Artery Disease Involving Huslia Coronary Artery of Huslia Heart Without Angina P (more content not included)... Normal [facility] Panel Informationon 09-19 IMPRESSION: Osteoarthrosis Tank Processor: PSCTristen Transcribe Date/Time: Sep 19 2024 2:55P Dictated by : ILIR HUFF MD This examination was interpreted and the report reviewed and electronically signed by: ILIR HUFF MD on Sep 19 2024 2:57PM [facility] RADIOLOG[facility] Radiology Study observation (narrative) [facility] No Panel InformationOrdered By: Ccf Provider on 09-19-2024 [facility] XR KNEE 4V AP/PA BOTH+LAT/ME R LTon [...] AP/PA BOTH+LAT/SEVERO LT, XR LEG FRONTL HIP-ANKL [facility] AXIS COMPARISON: 03/28/2024 FINDINGS: Advanced medial joint compartment narrowing, nearly jihe-xh-dcnx in appearance with tricompartment spur formation, not significantly changed. New small joint effusion. No fracture or dislocation. AP long leg views show no discrete osseous lesion. Medial joint compartment narrowing bilaterally, left greater than right with slight genu valgus varus. Measurements will be obtained by the ordering team. IMPRESSION: Osteoarthrosis Tank Processor: PSCB Transcribe Date/Time: Sep 19 2024 2:55P Dictated by : ILIR HUFF MD This examination was interpreted and the report reviewed and electronically signed by: ILIR HUFF MD on Sep 19 2024 2:57PM EST [id number] Normal [facility] XR Knee - left 4 Viewson * [...] AP/PA BOTH+LAT/SEVERO LT, XR LEG FRONTL HIP-ANKL [facility] AXIS COMPARISON: 03/28/2024 FINDINGS: Advanced medial joint compartment narrowing, nearly geyq-wb-swbe in appearance with tricompartment spur formation, not significantly changed. New small joint effusion. No fracture or dislocation. AP long leg views show no discrete osseous lesion. Medial joint compartment narrowing bilaterally, left greater than right with slight genu valgus varus. Measurements will be obtained by the ordering team. [facility] Provider, [facility] Imagin g [place] - 09/19/2024 * * *Final Report* * * DATE OF EXAM: Sep 19 2024 1:50PM MDX 5202 - XR KNEE 4V AP/PA BOTH+LAT/SEVERO LT / PROCEDURE REASON: multiple diagnoses * * * * Physician Interpretation * * * * PROCEDURE: Left knee and mechanical axis INDICATION: Pain in both knees, unspecified chronicity TECHNIQUE: XR KNEE 4V AP/PA BOTH+LAT/SEVERO LT, XR LEG FRONTL HIP-ANKL [facility] AXIS COMPARISON: 03/28/2024 FINDINGS: Advanced medial joint compartment narrowing, nearly azxn-ej-ilgk in appearance with tricompartment spur formation, not significantly changed. New small joint effusion. No fracture or dislocation. AP long leg views show no discrete osseous lesion. Medial joint compartment narrowing bilaterally, left greater than right with slight genu valgus varus. Measurements will be obtained by the ordering team. IMPRESSION IMPRESSION: Osteoarthrosis Tank Processor: MICHOACANO Transcribe Date/Time: Sep 19 2024 2:55P Dictated by : ILIR HUFF MD This examination was interpreted and the report reviewed and electronically signed by: ILIR HUFF MD on Sep 19 2024 2:57PM EST [facility] XR LEG FRONTL HIP-ANKL [facility] AXIS * * *Final Report* * * DATE OF EXAM: Sep 19 2024 1:50PM MDX 5216 - XR LEG FRONTL HIP-ANKL [facility] AXIS / PROCEDURE REASON: multiple diagnoses * * * * Physician Interpretation * * * * PROCEDURE: Left knee and mechanical axis INDICATION: Pain in both knees, unspecified chronicity TECHNIQUE: XR KNEE 4V AP/PA BOTH+LAT/SEVERO LT, XR LEG FRONTL HIP-ANKL [facility] AXIS COMPARISON: 03/28/2024 FINDINGS: Advanced medial joint compartment narrowing, nearly mlic-td-jeob in appearance with tricompartment spur formation, not significantly changed. New small joint effusion. No fracture or dislocation. AP long leg views show no discrete osseous lesion. Medial joint compartment narrowing bilaterally, left greater than right with slight genu valgus varus. Measurements will be obtained by the ordering team. IMPRESSION: Osteoarthrosis Tank Processor: MICHOACANO Transcribe Date/Time: Sep 19 2024 2:55P Dictated by : ILIR HUFF MD This examination was interpreted and the report reviewed and electronically signed by: ILIR HUFF MD on Sep 19 2024 2:57PM EST [id number] [facility] XR Lower extremity - bilater al AP W standingon 09-19-2024 * * *Final Report* * * DATE OF EXAM: Sep 19 2024 1:50PM MDX 5216 - XR LEG FRONTL HIP-ANKL [facility] AXIS / PROCEDURE REASON: multiple diagnoses * * * * Physician Interpretation * * * * PROCEDURE: Left knee and mechanical axis INDICATION: Pain in both knees, unspecified chronicity TECHNIQUE: XR KNEE 4V AP/PA BOTH+LAT/SEVERO LT, XR LEG FRONTL HIP-ANKL MECH AXIS COMPARISON: 03/28/2024 FINDINGS: Advanced medial joint compartment narrowing, nearly nrry-ub-gsjb in appearance with tricompartment spur formation, not significantly changed. New small joint effusion. No fracture or dislocation. AP long leg views show no discrete osseous lesion. Medial joint compartment narrowing bilaterally, left greater than right with slight genu valgus varus. Measurements will be obtained by the ordering team. [facility] Provider, Brian Michael - 09/19/2024 * * *Final Report* * * DATE OF EXAM: Sep 19 2024 1:50PM MDX 5216 - XR LEG FRONTL HIP-ANKL [facility] AXIS / PROCEDURE REASON: multiple diagnoses * * * * Physician Interpretation * * * * PROCEDURE: Left knee and mechanical axis INDICATION: Pain in both knees, unspecified chronicity TECHNIQUE: XR KNEE 4V AP/PA BOTH+LAT/SEVERO LT, XR LEG FRONTL HIP-ANKL [facility] AXIS COMPARISON: 03/28/2024 FINDINGS: Advanced medial joint compartment narrowing, nearly opop-ek-vcbd in appearance with tricompartment spur formation, not significantly changed. New small joint effusion. No fracture or dislocation. AP long leg views show no discrete osseous lesion. Medial joint compartment narrowing bilaterally, left greater than right with slight genu valgus varus. Measurements will be obtained by the ordering team. IMPRESSION IMPRESSION: Osteoarthrosis Tank Processor: MICHOACANO Transcribe Date/Time: Sep 19 2024 2:55P Dictated by : ILIR HUFF MD This examination was interpreted and the report reviewed and electronically signed by: ILIR HUFF MD on Sep 19 2024 2:57PM [facility] CNOVon 09-15-2024 CNOV Office Visit (FAMPWS ) NICK LOPES ([id number]) 1970 M [facility] Date Time Provider Department 09/15/24 11:20 AM [facility] During your visit today, we recorded the following information about you: Temperature Pulse Blood pressure Weight 97.1 degrees 98/minute 130/80 145.6 kg Nuha Mosquera, TEA BLENDER.[employer] 09/15/2024 12:11 PM Addendum This is a [...] Voltaren gel didn't help 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 will follow periodically Fam hx-cardiovas dis NEC n/a father, of [place] at 45 Hypothyroid Other and unspecified hyperlipidemia [...] BP 130/80 (more content not included)... [facility] ([id number]) 1970 [facility] Date Time Provider Department 09/15/24 [facility] During your visit today, we recorded the following information about you: Batool Ballesteros RN 09/15/2024 12:25 PM Signed Spouse (Liliana) calls to report that the order for knee immobilizer is not available at [facility]. Liliana reports what they can offer is a reaction web brace (doesn't completely immobilize the knee but offers support). If provider agrees new order would have to be sent to [facility] for reaction web brace. Pended requested order with previous diagnosis for review. NEL Brooks Jacqueline A, APRN.RAMIRO 09/15/2024 12:28 PM Signed Done. Thanks for update Allergies As of Date: 09/15/2024 (No Known Allergies) Date Reviewed: 09/15/2024 Reviewed by: Nuha Mosquera APRN.[employer] - Fully Assessed Reason for Visit: Orders [681] Primary Visit Diagnosis:Primary osteoarthritis of left knee [M17.12] Order(s):DME SUPPLY OR ACCESSORY, NOS [[id number]] Order #: [id number] Prescriptions as of 09/15/2024 - Capsaicin 0.1 [...] [Z82.49] Overweight [E66.3] 09/25/2023 Tobacco Use Disord-Unsp [HTU6800] SHOULDER REGION DIS NEC [M25.819] 01/27/2007 01/02/2009 JOINT PAIN-PELVIS [M25.559] 06/27/2008 01/02/2009 SPRAIN LUMBAR REGION [S33.5XXA] 06/27/2008 01/02/2009 JOINT PAIN-UP/ARM [M25.529] 06/27/2008 06/27/2008 JOINT PAIN-SHLDER [M25.519] 06/27/2008 01/02/2009 Routine General Medical Examination at [facility]*01/02/2009 12/14/2013 Class: Chronic Thoracic or Lumbosacral Neuritis or Radiculitis*02/23/2009 12/14/2013 Hypothyroidism [E03.9] 10/09/2009 Essential hypertension, benign [I10] 02/06/2010 Leukocytosis [D72.829] 09/19/2011 03/28/2024 Sprain of lumbar region [S33.5XXA] 10/18/2012 12/14/2013 Backache, unspecified [M54.9] 11/11/2012 12/14/2013 Cervicalgia [M54.2] 04/20/2015 Lumbago [M54.50] 04/20/2015 03/28/2024 Concussion without loss of consciousness [S06.0*05/08/2015 04/23/2018 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 Normal [facility] ED Prov Noteon 09-13-2024 ED Prov Note ED PROVIDER NOTE [facility] NAME: Nick Lopes AGE: 53 y.o. : 1970 VISIT DATE: 09/13/2024 CSN: [id number] PCP: Ginger Lugo MD Chief Complaint Patient [...] Food Insecurity (02/01/2020) Received from [facility] Hunger Vital Sign Worried About Running Out of Food in the Last Year: Never true Ran Out of Food in the Last Year: Never true Transportation Needs: No Transportation Needs (02/01/2020) Received from [facility] PRAPARE - Transportation Lack of Transportation (Medical): No Lack of Transportation (Non-Medical): No Physical Activity: Inactive (02/01/2020) Received from [facility] Exercise Vital Sign Days of Exercise per Week: 0 days Minutes of Exercise per Session: 0 min Stress: No Stress Concern Present (02/01/2020) Received from [facility] [place] [facility] Occupational [facility] - Occupational Stress Questionnaire Feeling of Stress : Not at all Social Connections: Moderately Integrated (02/01/2020) Received from [facility] Social Connection and Isolation Panel [NHANES] Frequency of Communication with Friends and Family: Twice a week Frequency of Social Gatherings with Friends and Family: Never Attends Congregation Services: More than 4 times per year Active Member of Clubs or Organizations: Yes Attends Club or Organization Meetings: Never Marital Status: Housing Stability: Low Risk (12/01/2021) Received from [facility] Housing Stability Vital Sign Unable to Pay [...] protrusion to the (more content not included)... [facility] 09-09-2024 [facility] Telephone (ORTHWS) NICK LOPES ([id number]) 1970 [facility] Date Time Provider Department 09/09/24 TORSTEN AVILES [...] Torsten Aviles V, DO York, Jessica, LPN; [facility] Orthopaedic (8:30 AM) Please schedule patient to see Ortho surgery for consultation on chronic knee pain, OA, not responding to conservative treatment. Torsten Aviles DO Please assist patient with an appointment to see Dr. Jose Loo or Wade Stone at [facility]. Thank you! Pura Jeffers 09/13/2024 9:39 AM [...] [Z82.49] Overweight [E66.3] 09/25/2023 Tobacco Use Disord-Unsp [RNV8002] SHOULDER REGION DIS NEC [M25.819] 01/27/2007 01/02/2009 JOINT PAIN-PELVIS [M25.559] 06/27/2008 01/02/2009 SPRAIN LUMBAR REGION [S33.5XXA] 06/27/2008 01/02/2009 JOINT PAIN-UP/ARM [M25.529] 06/27/2008 06/27/2008 JOINT PAIN-SHLDER [M25.519] 06/27/2008 01/02/2009 Routine General Medical Examination at [facility]*01/02/2009 12/14/2013 Class: Chronic Thoracic or Lumbosacral Neuritis or Radiculitis*02/23/2009 12/14/2013 Hypothyroidism [E03.9] 10/09/2009 Essential hypertension, benign [I10] 02/06/2010 Leukocytosis [D72.829] 09/19/2011 03/28/2024 Sprain of lumbar region [S33.5XXA] 10/18/2012 12/14/2013 Backache, unspecified [M54.9] 11/11/2012 12/14/2013 Cervicalgia [M54.2] 04/20/2015 Lumbago [M54.50] 04/20/2015 03/28/2024 Concussion without loss of consciousness [S06.0*05/08/2015 04/23/2018 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 Normal [facility] CNOVon 08-26-2024 CNOV Office Visit (FRFHWS ) MARIANNENICK ([id number]) 1970 [facility] Date Time Provider Department 08/26/24 3:30 PM TORSTEN AVILES V [facility] During your visit today, we recorded the following information about you: Mary Dale MA 08/26/2024 3:48 PM Signed AMB ROOMING INTAKE FLOWSHEET DATA Pain Pain Level: 8 Pain Location: Knee-Left Description: Aching, Sharp, Stabbing, Stiffness Duration Amount of Time: (ongoing) Frequency: Continuous Intervention/Comfort measure: Exercise, Medication, Other: See comment, Cold (muscle rub) Durolane injection into left knee LOT # [id number] EXP 01/04/2027 HOWIE Mendoza Dennis, V, DO [...] Stenosis of Spine Coronary Artery Disease Involving [place] Coronary Artery of [place] Heart Without Angina Pectoris S/P Ptca (Percutaneous [...] Fam hx-cardiovas dis NEC n/a father, of [place] at 45 Hypothyroid Other and unspecified hyperlipidemia [...] with br (more content not included)... Normal [facility] Large Joint Arthro/Inj: L kn ee jointon 08-26-2024 Torsten Aviles V, DO 08/26/2024 3:48 PM Large Joint Arthro/Inj: L knee joint Informed Consent Consent Obtained: Verbal [place] Protocol A moment to CARE was completed. [...] the patient voiced understanding of these instructions. [facility] Carie 08-10-2024 [facility] Telephone (FAMPWS) NICK LOPES ([id number]) 1970 [facility] Date Time Provider Department 08/10/24 GINGER LUGOWS [...] use of insulin (HCC) [E11.9] Order(s):HEMOGLOBIN A1C [LLWBX9O] Order #: [id number] FUTURE COMPLETE BLOOD COUNT [SQCBC] Order #: [id number] FUTURE Prescriptions as of 08/10/2024 - predniSONE [...] [Z82.49] Overweight [E66.3] 09/25/2023 Tobacco Use Disord-Unsp [ZBX8945] SHOULDER REGION DIS NEC [M25.819] 01/27/2007 01/02/2009 JOINT PAIN-PELVIS [M25.559] 06/27/2008 01/02/2009 SPRAIN LUMBAR REGION [S33.5XXA] 06/27/2008 01/02/2009 JOINT PAIN-UP/ARM [M25.529] 06/27/2008 06/27/2008 JOINT PAIN-SHLDER [M25.519] 06/27/2008 01/02/2009 Routine General Medical Examination at [facility]*01/02/2009 12/14/2013 Class: Chronic Thoracic or Lumbosacral Neuritis or Radiculitis*02/23/2009 12/14/2013 Hypothyroidism [E03.9] 10/09/2009 Essential hypertension, benign [I10] 02/06/2010 Leukocytosis [D72.829] 09/19/2011 03/28/2024 Sprain of lumbar region [S33.5XXA] 10/18/2012 12/14/2013 Backache, unspecified [M54.9] 11/11/2012 12/14/2013 Cervicalgia [M54.2] 04/20/2015 Lumbago [M54.50] 04/20/2015 03/28/2024 Concussion without loss of consciousness [S06.0*05/08/2015 04/23/2018 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 Normal [facility] CBC W Auto Differential pane l (Bld)on 08-09-2024 Basophils (Bld) [#/Vol] 0.07 10*3/uL [facility] Basophils/100 WBC (Bld) 0.5 % C [facility] Differential cell count method Nom (Bld) Auto [facility] Eosinophils (Bld) [#/Vol] 0.07 10*3/uL [facility] Eosinophils/100 WBC (Bld) 0.5 % [facility] Erythrocyte distribution width (RBC) [Ratio] 15.6 % High 11.5 - 15.0 % [facility] Hematocrit (Bld) [Volume fraction] 45.9 % 39.0 - 51.0 % [facility] Hemoglobin (Bld) [Mass/Vol] 14.5 g/dL 13.0 - 17.0 g/dL [facility] Immature granulocytes (Bld) [#/Vol] 0.19 10*3/uL High [facility] Immature granulocytes/100 WBC (Bld) 1.3 % [facility] Interpretation and review of laboratory results Abnormal [facility] Lymphocytes (Bld) [#/Vol] 2.36 10*3/uL [facility] Lymphocytes/100 WBC (Bld) 16.4 % [facility] MCH (RBC) [Entitic mass] 27.5 pg 26.0 - 34.0 pg [facility] MCHC (RBC) [Mass/Vol] 31.6 g/dL 30.5 - 36.0 g/dL [facility] MCV (RBC) [Entitic vol] 87.1 fL 80.0 - 100.0 fL [facility] Monocytes (Bld) [#/Vol] 0.72 10*3/uL [facility] Monocytes/100 WBC (Bld) 5.0 % C [facility] Neutrophils (Bld) [#/Vol] 10.99 10*3/uL High [facility] Neutrophils/100 WBC (Bld) 76.3 % [facility] Nucleated RBC (Bld) [#/Vol] [facility] Nucleated RBC/100 WBC (Bld) [Ratio] 0.0 % /100 WBC [facility] Platelet mean volume (Bld) [Entitic vol] 10.6 fL 9.0 - 12.7 fL [facility] Platelets (Bld) [#/Vol] 165 10*3/uL [facility] RBC (Bld) [#/Vol] 5.27 10*6/uL 4.20 - 6.0 0 m/uL [facility] WBC (Bld) [#/Vol] 14.40 10*3/uL High [facility] Basophils (Bld) [#/Vol] 0.07 10*3/uL Normal <0.11 [facility] Comment on above: Order Comment: Speci men Type: BLOOD SPECIMENOrdering Facility: [facility] Address: [address] [place] [address] Performed By: #### 5 7021-8 ####[facility] LABCLIA [id number] [place] [address] [place] Basophils/100 WBC (Bld) 0.5 % Normal [facility] Comment on above: Order Comment: Speci men Type: BLOOD SPECIMENOrdering Facility: [facility] Address: [address] [place] [address] Performed By: #### 5 7021-8 ####[facility] LABCLIA [id number] [place] [address] [place] Differential cell count method Nom (Bld) Auto Normal [facility] Comment on above: Order Comment: Speci men Type: BLOOD SPECIMENOrdering Facility: [facility] Address: [address] [place] [address] Performed By: #### 5 7021-8 ####[facility] LABCLIA [id number] [place] [address] [place] Eosinophils (Bld) [#/Vol] 0.07 10*3/uL Normal <0.46 [facility] Comment on above: Order Comment: Speci men Type: BLOOD SPECIMENOrdering Facility: [facility] Address: [address] [place] [address] Performed By: #### 5 7021-8 ####[facility] LABCLIA [id number] [place] [address] [place] Eosinophils/100 WBC (Bld) 0.5 % Normal [facility] Comment on above: Order Comment: Speci men Type: BLOOD SPECIMENOrdering Facility: [facility] Address: [address] [place] [address] Performed By: #### 5 7021-8 ####[facility] LABCLIA [id number] [place] [address] [place] Erythrocyte distribution width (RBC) [Ratio] 15.6 % High 11.5-15.0 [facility] Comment on above: Order Comment: Speci men Type: BLOOD SPECIMENOrdering Facility: [facility] Address: [address] [place] [address] Performed By: #### 5 7021-8 ####[facility] LABIA [id number] [place] [address] [place] Hematocrit (Bld) [Volume fraction] 45.9 % Normal 39.0-51.0 [facility] Comment on above: Order Comment: Speci men Type: BLOOD SPECIMENOrdering Facility: [facility] Address: [address] [place] [address] Performed By: #### 5 7021-8 ####[facility] LABIA [id number] [place] [address] [place] Hemoglobin (Bld) [Mass/Vol] 14.5 g/dL Normal 13.0-17.0 [facility] Comment on above: Order Comment: Speci men Type: BLOOD SPECIMENOrdering Facility: [facility] Address: [address] [place] [address] Performed By: #### 5 7021-8 ####[facility] LABIA [id number] [place] [address] [place] Immature granulocytes (Bld) [#/Vol] 0.19 10*3/uL High <0.10 [facility] Comment on above: Order Comment: Speci men Type: BLOOD SPECIMENOrdering Facility: [facility] Address: [address] [place] [address] Performed By: #### 5 7021-8 ####[facility] LABIA [id number] [place] [address] [place] Immature granulocytes/100 WBC (Bld) 1.3 % Normal [facility] Comment on above: Order Comment: Speci men Type: BLOOD SPECIMENOrdering Facility: [facility] Address: [address] [place] [address] Performed By: #### 5 7021-8 ####[facility] LABCLIA [id number] [place] [address] [place] Lymphocytes (Bld) [#/Vol] 2.36 10*3/uL Normal 1.00-4.00 [facility] Comment on above: Order Comment: Speci men Type: BLOOD SPECIMENOrdering Facility: [facility] Address: [address] [place] [address] Performed By: #### 5 7021-8 ####[facility] LABIA [id number] [place] [address] [place] Lymphocytes/100 WBC (Bld) 16.4 % Normal [facility] Comment on above: Order Comment: Speci men Type: BLOOD SPECIMENOrdering Facility: [facility] Address: [address] [place] [address] Performed By: #### 5 7021-8 ####[facility] LABIA [id number] [place] [address] [place] MCH (RBC) [Entitic mass] 27.5 pg Normal 26.0-34.0 [facility] Comment on above: Order Comment: Speci men Type: BLOOD SPECIMENOrdering Facility: [facility] Address: [address] [place] [address] Performed By: #### 5 7021-8 ####[facility] LABCLIA [id number] [place] [address] [place] MCHC (RBC) [Mass/Vol] 31.6 g/dL Normal 30.5-36.0 [facility] Comment on above: Order Comment: Speci men Type: BLOOD SPECIMENOrdering Facility: [facility] Address: [address] [place] [address] Performed By: #### 5 7021-8 ####[facility] LABIA [id number] [place] [address] [place] MCV (RBC) [Entitic vol] 87.1 fL Normal 80.0-100.0 C [facility] Comment on above: Order Comment: Speci men Type: BLOOD SPECIMENOrdering Facility: [facility] Address: [address] [place] [address] Performed By: #### 5 7021-8 ####[facility] LABIA [id number] [place] [address] [place] Monocytes (Bld) [#/Vol] 0.72 10*3/uL Normal <0.87 [facility] Comment on above: Order Comment: Speci men Type: BLOOD SPECIMENOrdering Facility: [facility] Address: [address] [place] [address] Performed By: #### 5 7021-8 ####[facility] LABIA [id number] [place] [address] [place] Monocytes/100 WBC (Bld) 5.0 % [facility] Comment on above: Order Comment: Speci men Type: BLOOD SPECIMENOrdering Facility: [facility] Address: [address] [place] [address] Performed By: #### 5 7021-8 ####[facility] LABIA [id number] [place] [address] [place] Neutrophils (Bld) [#/Vol] 10.99 10*3/uL High 1.45-7.50 [facility] Comment on above: Order Comment: Speci men Type: BLOOD SPECIMENOrdering Facility: [facility] Address: [address] [place] [address] Performed By: #### 5 7021-8 ####[facility] LABIA [id number] [place] [address] [place] Neutrophils/100 WBC (Bld) 76.3 % Normal [facility] Comment on above: Order Comment: Speci men Type: BLOOD SPECIMENOrdering Facility: [facility] Address: [address] [place] [address] Performed By: #### 5 7021-8 ####[facility] LABCLIA [id number] [place] [address] [place] Nucleated RBC (Bld) [#/Vol] 10*3/uL Normal <0.01 [facility] Comment on above: Order Comment: Speci men Type: BLOOD SPECIMENOrdering Facility: [facility] Address: [address] [place] [address] Performed By: #### 5 7021-8 ####[facility] LABIA [id number] [place] [address] [place] Nucleated RBC/100 WBC (Bld) [Ratio] 0.0 /100 WBC Normal [facility] Comment on above: Order Comment: Speci men Type: BLOOD SPECIMENOrdering Facility: [facility] Address: [address] [place] [address] Performed By: #### 5 7021-8 ####[facility] LABIA [id number] [place] [address] [place] Platelet mean volume (Bld) [Entitic vol] 10.6 fL Normal 9.0-12.7 [facility] Comment on above: Order Comment: Speci men Type: BLOOD SPECIMENOrdering Facility: [facility] Address: [address] [place] [address] Performed By: #### 5 7021-8 ####[facility] LABIA [id number] [place] [address] [place] Platelets (Bld) [#/Vol] 165 10*3/uL Normal 150-400 [facility] Comment on above: Order Comment: Speci men Type: BLOOD SPECIMENOrdering Facility: [facility] Address: [address] [place] [address] Performed By: #### 5 7021-8 ####[facility] LABCLIA [id number] [place] [address] [place] RBC (Bld) [#/Vol] 5.27 10*6/uL Normal 4.20-6.00 [facility] Comment on above: Order Comment: Speci men Type: BLOOD SPECIMENOrdering Facility: [facility] Address: [address] [place] [address] Performed By: #### 5 7021-8 ####[facility] LABCLIA [id number] [place] [address] [place] WBC (Bld) [#/Vol] 14.40 10*3/uL High 3.70-11.00 [facility] Comment on above: Order Comment: Speci men Type: BLOOD SPECIMENOrdering Facility: [facility] Address: [address] [place] [address] Performed By: #### 5 7021-8 ####[facility] LABCLIA [id number] [address] [place] CNOVon 08-09-2024 CNOV Office Visit (FAMPWS ) NICK LOPES ([id number]) 1970 M [facility] Date Time Provider Department 08/09/24 12:40 PM [...] eyes were checked back in summer at [facility]. Folate added back in March. Anemia [...] Fam hx-cardiovas dis NEC n/a father, of [place] at 45 Hypothyroid Other and unspecified hyperlipidemia [...] Age of (more content not included)... Normal [facility] FOLATE, SERUMon 08-09-2024 Folate [Mass/Vol] 19.7 ng/mL 4.7 - PINF ng/mL [facility] Folate SerPl-mCncon 08-09-20 Folate [Mass/Vol] 19.7 ng/mL Normal >4.7 [facility] Comment on above: Order Comment: Jeannine matias Type: BLOOD SPECIMENOrdering Facility: [facility] Address: [address] [place] [address] Performed By: #### 2 284-8 ####[facility] LABCLIA [id number] [place] [address] [place] Folate [Mass/Vol]on 08-09-20 Interpretation and review of laboratory results Normal [facility] HbA1c (Bld)on 08-09-2024 Average glucose Estimated from glycated hemoglobin (Bld) [Mass/Vol] 166 mg/dL Normal [facility] Comment on above: Order Comment: Jeannine matias Type: BLOOD SPECIMENOrdering Facility: [facility] Address: [address] [place] [address] Result Comment: eAG: (Estimated average glucose) is a calculated value from HgbA1c and is retail sales representative of the average blood glucose level in the last 2-3 month period. Performed By: #### 5 5454-3 ####[facility] LABCLIA [id number] [place] [address] [place] HbA1c (Bld) [Mass fraction] 7.4 % High 4.3-5.6 [facility] Comment on above: Order Comment: Jeannine matias Type: BLOOD SPECIMENOrdering Facility: [facility] Address: [address] [place] [address] Result Comment: Amer ican Diabetes Association guidelines indicate that patients with HgbA1c in the range 5.7-6.4% are at increased risk for development of diabetes, and intervention by lifestyle modification may be beneficial. HgbA1c greater or equal to 6.5% is considered diagnostic of diabetes. Performed By: #### 5 5454-3 ####[facility] LABCLIA [id number] [place] [id number] [facility] Carie 08-05-2024 CNPN Telephone (PHA) NICK LOPES ([id number]) 1970 M [facility] Date Time Provider Department 08/05/24 TORSTEN AVILES V [facility] During your visit today, we recorded the [...] section) Patient Name: Nick lopes [facility] AND drug name(s): [id number] durolane [...] of insurance card to be uploaded into [employer]. Gwendolyn Santiago MA 08/12/2024 12:16 PM Signed [...] Fully Assessed Reason for Visit: Insurance Authorization [[id number]] Cmt: Prior Auth Delayed: Additional Info Needed [...] [Z82.49] Overweight [E66.3] 09/25/2023 Tobacco Use Disord-Unsp [UHR2930] SHOULDER REGION DIS NEC [M25.819] 01/27/2007 01/02/2009 JOINT PAIN-PELVIS [M25.559] 06/27/2008 01/02/2009 SPRAIN LUMBAR REGION [S33.5XXA] 06/27/2008 01/02/2009 JOINT PAIN-UP/ARM [M25.529] 06/27/2008 06/27/2008 JOINT PAIN-SHLDER [M25.519] 06/27/2008 01/02/2009 Routine General Medical Examination at [facility]*01/02/2009 12/14/2013 Class: Chronic Thoracic or Lumbosacral Neuritis or R (more content not included)... Normal [facility] CNCOon 08-03-2024 CNCO Letter Text Normal [facility] CNOVon 08-03-2024 CNOV Office Visit (FRFHWS ) NICK LOPES ([id number]) 1970 [place] [facility] Date Time Provider Department 08/03/24 2:30 PM [...] Stenosis of Spine Coronary Artery Disease Involving Huslia Coronary Artery of Huslia Heart Without Angina Pectoris S/P Ptca (Percutaneous [...] Fam hx-cardiovas dis NEC n/a father, of [place] at 45 Hypothyroid Other and unspecified hyperlipidemia [...] 2 mg (more content not included)... [facility] Letter Text Normal [facility] CNPNon 07-25-2024 CNPN Telephone (PANEWO) MARIANNENICK Light ([id number]) 1970 M [facility] Date Time Provider Department 07/25/24 TORSTEN AVILES [...] walking. would like a call back at [phone]. AJAY Mcnally Amy M, MA 07/25/2024 3:08 [...] AM Signed Torsten Aviles V, DO You; [facility] Orthopaedic Pool2 hours ago (7:46 AM) [...] for off work created and sent to [facility]. This will only cover him until scheduled [...] with hu (more content not included)... Normal [facility] Carie 06-24-2024 ANGELINE Telephone ([employer]) NICK LOPES ([id number]) 1970 M [facility] Date Time Provider Department 06/24/24 TORSTEN AVILES During your visit today, we recorded the following information about you: Mary Dale MA 06/24/2024 9:07 AM Signed Type of form: FMLA Form received via fax When form is completed, Fax form to [facility] at [phone] Form has been forwarded to Dr. Aviles for signature. HOWIE Mendoza Amy M, MA 06/24/2024 9:07 AM Signed I called and left a message for the patient to contact the office. Received [facility] paperwork for him. Need to know..... Where is the patient doing his PT so we can get reports. 2. What was the first day not worked? Gwendolyn Santiago MA 06/24/2024 11:08 AM Signed Patients returned phone call from Mary. [facility] [place]. Off work date is 05/13/24. HOWIE Leonardo Amy M, MA 06/24/2024 1:15 PM Signed Forms completed and returned to [facility]. Confirmation received. Copy sent for scanning. Called [facility] to request records for past visits. Allergies As of Date: 06/24/2024 (No Known Allergies) Date Reviewed: 05/26/2024 Reviewed by: Berta Knight, RT(R) - Fully Assessed Reason for Visit: [facility] Paperwork [[id number]] Prescriptions as of 06/24/2024 [...] [Z82.49] Overweight [E66.3] 09/25/2023 Tobacco Use Disord-Unsp [[id number]] SHOULDER REGION DIS NEC [M25.819] 01/27/2007 01/02/2009 JOINT PAIN-PELVIS [M25.559] 06/27/2008 01/02/2009 SPRAIN LUMBAR REGION [S33.5XXA] 06/27/2008 01/02/2009 JOINT PAIN-UP/ARM [M25.529] 06/27/2008 06/27/2008 JOINT PAIN-SHLDER [M25.519] 06/27/2008 01/02/2009 Routine General Medical Examination at [facility]*01/02/2009 12/14/2013 Class: Chronic Thoracic or Lumbosacral Neuritis or Radiculitis*02/23/2009 12/14/2013 Hypothyroidism [E03.9] 10/09/2009 Essential hypertension, benign [I10] 02/06/2010 Leukocytosis [D72.829] 09/19/2011 03/28/2024 Sprain of lumbar region [S33.5XXA] 10/18/2012 12/14/2013 Backache, unspecified [M54.9] 11/11/2012 12/14/2013 Cervicalgia [M54.2] 04/20/2015 Lumbago [M54.50] 04/20/2015 03/28/2024 Concussion without loss of consciousness [S06.0*05/08/2015 04/23/2018 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 Normal [facility] CNCOon 06-16-2024 CNCO Letter Text Normal [facility] CNPNon 06-16-2024 CNPN Telephone (DELVINWS) MARIANNENICK Light ([id number]) 1970 M [facility] Date Time Provider Department 06/16/24 TORSTEN AVILES [...] extension written. Okay to send extension via [employer]. AJAY Lynn Amy M, MA 06/16/2024 4:05 PM Signed Letter completed and sent to patient in [employer] as requested. Allergies As of Date: 06/16/2024 [...] [Z82.49] Overweight [E66.3] 09/25/2023 Tobacco Use Disord-Unsp [IRS6820] SHOULDER REGION DIS NEC [M25.819] 01/27/2007 01/02/2009 JOINT PAIN-PELVIS [M25.559] 06/27/2008 01/02/2009 SPRAIN LUMBAR REGION [S33.5XXA] 06/27/2008 01/02/2009 JOINT PAIN-UP/ARM [M25.529] 06/27/2008 06/27/2008 JOINT PAIN-SHLDER [M25.519] 06/27/2008 01/02/2009 Routine General Medical Examination at [facility]*01/02/2009 12/14/2013 Class: Chronic Thoracic or Lumbosacral Neuritis or Radiculitis*02/23/2009 12/14/2013 Hypothyroidism [E03.9] 10/09/2009 Essential hypertension, benign [I10] 02/06/2010 Leukocytosis [D72.829] 09/19/2011 03/28/2024 Sprain of lumbar region [S33.5XXA] 10/18/2012 12/14/2013 Backache, unspecified [M54.9] 11/11/2012 12/14/2013 Cervicalgia [M54.2] 04/20/2015 Lumbago [M54.50] 04/20/2015 03/28/2024 Concussion without loss of consciousness [S06.0*05/08/2015 04/23/2018 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*05/08/2015 Urinary incontinence [R32] 06/13/2015 Frequency [GDV8295] 06/13/2015 04/23/2018 Urgency of urination [R39.15] 06/13/2015 [...] spine [M48.02] 06/28/2022 Coronary artery disease involving squaxin fagan*01/24/2023 S/P PTCA (percutaneous transluminal coronary an*01/24/2023 Status p (more content not included)... Normal [facility] CNCOon 05-31-2024 CNCO Letter Text Normal [facility] CNPNon 05-30-2024 CNPN Telephone ([facility]) NICK LOPES ([id number]) 1970 M [place] Date Time Provider Department [...] Fully Assessed Reason for Visit: Patient Question [3626] Cmt: To return to work or to [...] [Z82.49] Overweight [E66.3] 09/25/2023 Tobacco Use Disord-Unsp [ZPK5172] SHOULDER REGION DIS NEC [M25.819] 01/27/2007 01/02/2009 JOINT PAIN-PELVIS [M25.559] 06/27/2008 01/02/2009 SPRAIN LUMBAR REGION [S33.5XXA] 06/27/2008 01/02/2009 JOINT PAIN-UP/ARM [M25.529] 06/27/2008 06/27/2008 JOINT PAIN-SHLDER [M25.519] 06/27/2008 01/02/2009 Routine General Medical Examination at [facility]*01/02/2009 12/14/2013 Class: Chronic Thoracic or Lumbosacral Neuritis or Radiculitis*02/23/2009 12/14/2013 Hypothyroidism [E03.9] 10/09/2009 Essential hypertension, benign [I10] 02/06/2010 Leukocytosis [D72.829] 09/19/2011 03/28/2024 Sprain of lumbar region [S33.5XXA] 10/18/2012 12/14/2013 Backache, unspecified [M54.9] 11/11/2012 12/14/2013 Cervicalgia [M54.2] 04/20/2015 Lumbago [M54.50] 04/20/2015 03/28/2024 Concussion without loss of consciousness [S06.0*05/08/2015 04/23/2018 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*05/08/2015 Urinary incontinence [R32] 06/13/2015 Frequency [FVH4957] 06/13/2015 04/23/2018 Urgency of urination [R39.15] 06/13/2015 [...] spine [M48.02] 06/28/2022 Coronary artery disease involving squaxin fagan*01/24/2023 S/P PT (more content not included)... Normal [facility] Carie 05-29-2024 ANGELINE Telephone (UCWSTR) NICK LOPES ([id number]) 1970 M [facility] Date Time Provider Department 05/29/24 [place]ES V [facility] During your visit today, we recorded [...] [Z82.49] Overweight [E66.3] 09/25/2023 Tobacco Use Disord-Unsp [BFO1889] SHOULDER REGION DIS NEC [M25.819] 01/27/2007 01/02/2009 JOINT PAIN-PELVIS [M25.559] 06/27/2008 01/02/2009 SPRAIN LUMBAR REGION [S33.5XXA] 06/27/2008 01/02/2009 JOINT PAIN-UP/ARM [M25.529] 06/27/2008 06/27/2008 JOINT PAIN-SHLDER [M25.519] 06/27/2008 01/02/2009 Routine General Medical Examination at a [facility]*01/02/2009 12/14/2013 Class: Chronic Thoracic or Lumbosacral Neuritis or Radiculitis*02/23/2009 12/14/2013 Hypothyroidism [E03.9] 10/09/2009 Essential hypertension, benign [I10] 02/06/2010 Leukocytosis [D72.829] 09/19/2011 03/28/2024 Sprain of lumbar region [S33.5XXA] 10/18/2012 12/14/2013 Backache, unspecified [M54.9] 11/11/2012 12/14/2013 Cervicalgia [M54.2] 04/20/2015 Lumbago [M54.50] 04/20/2015 03/28/2024 Concussion without loss of consciousness [S06.0*05/08/2015 04/23/2018 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*05/08/2015 Urinary incontinence [R32] 06/13/2015 Frequency [PTB3795] 06/13/2015 04/23/2018 Urgency of urination [R39.15] 06/13/2015 [...] spine [M48.02] 06/28/2022 Coronary artery disease involving squaxin fagan*01/24/2023 S/P PTCA (percutaneous transluminal coronary an*01/24/2023 Status post insertion of drug-eluting stent int*01/24/2023 Acute renal insufficiency [N28.9] 10/06/2023 03/28/2024 Diagnosed: 10/06/2023 Benign prostatic hyperplasia with urinary obstr*10/06/2023 Diagnosed: 10/06/2023 Calculus of ureter [N20.1] 10/06/2023 Diagnosed: 10/06/2023 Colitis [K52.9] 10/06/2023 03/28/2024 Diagnosed: 10/06/2023 Contusion of upper arm [S40.029A] 04/14/2022 03/28/2024 Diagnosed: 10/06/2023 Depressive disorder (more content not included)... Normal [facility] MR Knee - left WO contraston 05-26-2024 IMPRESSION: INTACT LIGAMENTS AND MENISCI OF THE KNEE. MODERATE OSTEOARTHRITIS OF THE MEDIAL COMPARTMENT. Tank Processor: MICHOACANO Transcribe Date/Time: May 26 2024 8:45A Dictated by : ELLIE HERNÁNDEZ MD This examination was interpreted and the report reviewed and electronically signed by: ELLIE HERNÁNDEZ MD on May 26 2024 8:48AM [facility] * * *Final Report* * * DATE OF EXAM: May 26 2024 8:20AM [facility] 0212 - MRI KNEE WO IVCON [...] DATE OF EXAM: May 26 2024 8:20AM [facility] 0212 - MRI KNEE WO IVCON [...] KNEE. MODERATE OSTEOARTHRITIS OF THE MEDIAL COMPARTMENT. Tank Processor: [facility] Transcribe Date/Time: May 26 2024 8:45A Dictated by : ELLIE HERNÁNDEZ MD This examination was interpreted and the report reviewed and electronically signed by: ELLIE HERNÁNDEZ MD on May 26 2024 8:48AM EST [facility] Radiology Study observation (narrative) [facility] MR Knee - left WO contrastOr dered By: Ccf Provider on 05-26-2024 [facility] Large Joint Arthro/Inj: R huy hurtado bursaon 05-06-2024 Torsten Aviles V, DO 05/06/2024 2:38 PM Large Joint Arthro/Inj: R linda bursa 05/06/2024 2:37 PM Site: Bryson mckeon bursa Medications: 6 mg betamethasone acetate-betamethasone sodium phosphate 6 mg/mL Anesthetics: 4 mL lidocaine (PF) 10 mg/mL (1 %); 4 mL BUPivacaine (PF) 0.5 % (5 mg/mL) [facility] Emergency Department Summary on 05-02-2024 Emergency Department Summary [facility] Medical Records Department [address] [place] [address] Emergency Department Summary 05/02/24 MR#: [id number] Acct: [id number] Name: ROMEL LOPES Rep #: [id number] : 1970 53 From: Josafat Centeno DO [...] for Parasthesia, Weakness [facility] Loss [facility] Funtion [facility] Medical History Infection due to ESBL-producing Escherichia coli Anxiety Depression Diabetes Kidney stones Former smoker BiPAP (biphasic positive airway pressure) dependence Sleep apnea Myocardial infarct Hypertension Atherosclerosis of coronary artery of squaxin heart without angina pectoris Leukocytosis JOSIAH (obstructive [...] 114 P (more content not included)... Normal [facility] Knee 4 or More Viewson 05-02 Knee 4 or More Views [facility] Imaging Services [address] [place], [place] [address] Knee 4 or More Views MR#: [id number] Acct: [id number] Name: ROMEL LOPES Rep #: [id number] : 1970 M 53 From: Ethan Payan MD PCP: Dr. Ginger Lugo MD Status: REG ER Study: Knee 4 or More Views Date of Exam: 05/02/24 Exam# [id number] Ordering [place]: [place] [id number] EXAM: XR LEFT KNEE COMPLETE, 4 OR [...] Josafat Centeno DO; Dr. Ginger Lugo MD Tank Processor: Signed Normal [facility] XR Toes - right 3 Viewson IMPRESSION: Findings as discussed in results portion of report Tank Processor: PSCTristen Transcribe Date/Time: Apr 14 2024 12:14P Dictated by : RAJENDRA CAMACHO DO This examination was interpreted and the report reviewed and electronically signed by: RAJENDRA CAMACHO DO on Apr 14 2024 12:17PM [facility] DIV[facility]OLOG[facility] * * *Final Report* [...] [place] DIVISION OF RADIOLOGY Provider, Brian martin [place] - 04/14/2024 * * *Final Report* * [...] as discussed in results portion of report Tank Processor: MICHOACANO Transcribe Date/Time: Apr 14 2024 12:14P Dictated by : RAJENDRA CAMACHO DO This examination was interpreted and the report reviewed and electronically signed by: RAJENDRA CAMACHO DO on Apr 14 2024 12:17PM EST [facility] Radiology Study observation (narrative) [facility] XR Toes - right 3 ViewsOrder ed By: Ccf Provider on 04-14-2024 [facility] Large Joint Arthro/Inj: L kn ee jointon 04-06-2024 Torsten Aviles V, DO 04/06/2024 2:18 PM Large Joint Arthro/Inj: L knee joint Informed Consent Consent Obtained: Verbal [place] Protocol SIGN IN TIME OUT 04/06/2024 2:17 [...] the patient voiced understanding of these instructions. [facility] XR Toes - right 3 Viewson IMPRESSION: Fracture distal phalanx RIGHT great toe Tank Processor: MICHOACANO Transcribe Date/Time: Mar 31 2024 7:30A Dictated by : RAJENDRA CAMACHO DO This examination was interpreted and the report reviewed and electronically signed by: RAJENDRA CAMACHO DO on Mar 31 2024 7:32AM [facility] * * *Final Report* [...] IMPRESSION: Fracture distal phalanx RIGHT great toe Tank Processor: MICHOACANO Transcribe Date/Time: Mar 31 2024 7:30A Dictated by : RAJENDRA CAMACHO DO This examination was interpreted and the report reviewed and electronically signed by: RAJENDRA CAMACHO DO on Mar 31 2024 7:32AM EST [facility] XR Toes - right 3 ViewsOrder ed By: Ccf Provider on 03-31-2024 [facility] US DVT LOWER LTon 03-29-2024 US DVT [...] imaged segments of the left lower extremity. Tank Processor: MICHOACANO Transcribe Date/Time: Mar 29 2024 6:23P Dictated by : JEFFREY NAJERA MD This examination was interpreted and the report reviewed and electronically signed by: JEFFREY NAJERA MD on Mar 29 2024 6:25PM EST [id number] Normal [facility] US Lower extremity vein - le fton 03-29-2024 IMPRESSION: Negative study for proximal DVT in the left lower extremity. Nondiagnostic study for calf DVT in the left lower extremity. Negative study for superficial thrombophlebitis in the imaged segments of the left lower extremity. Tank Processor: [facility] Transcribe Date/Time: Mar 29 2024 6:23P Dictated by : JEFFREY NAJERA MD This examination was interpreted and the report reviewed and electronically signed by: JEFFREY NAJERA MD on Mar 29 2024 6:25PM EST [employer] [employer] RADIOLOGY SYNGO * * *Final Report* * [...] spontaneous respirophasic flow. Normal response to augmentation. [facility] SYN[facility], [facility]/29/[facility]24 * * *Final Report* [...] imaged segments of the left lower extremity. Tank Processor: MICHOACANO Transcribe Date/Time: Mar 29 2024 6:23P Dictated by : JEFFREY NAJERA MD This examination was interpreted and the report reviewed and electronically signed by: JEFFREY NAJERA MD on Mar 29 2024 6:25PM EST [facility] Radiology Study observation (narrative) [facility] US Lower extremity vein - le ftOrdered By: Ccf Provider on 03-29-2024 [facility] No Panel Informationon 03-28 IMPRESSION: No acute osseous abnormality. Tank Processor: MICHOACANO Transcribe Date/Time: Mar 28 2024 7:49P Dictated by : VERONICA HIDALGO DO This examination was interpreted and the report reviewed and electronically signed by: VERONICA HIDALGO DO on Mar 28 2024 7:53PM [facility] DIV[facility]OLOG[facility] Radiology Study observation (narrative) [facility] No Panel InformationOrdered By: Ccf Provider on 03-28-2024 [facility] XR Knee - left 4 Viewson * [...] fracture. IMPRESSION IMPRESSION: No acute osseous abnormality. Tank Processor: [facility] Transcribe Date/Time: Mar 28 2024 7:49P Dictated by : VERONICA HIDALGO DO This examination was interpreted and the report reviewed and electronically signed by: VERONICA HIDALGO DO on Mar 28 2024 7:53PM [facility] XR Tibia and Fibula - left [...] fracture. IMPRESSION IMPRESSION: No acute osseous abnormality. Tank Processor: PSC[facility] Transcribe Date/Time: Mar 28 2024 7:49P Dictated by : VERONICA HIDALGO DO This examination was interpreted and the report reviewed and electronically signed by: VERONICA HIDALGO DO on Mar 28 2024 7:53PM [facility] XR Toes - right 3 Viewson Radiology Study observation (narrative) [facility] Absolute lymphocyte countOrd ered By: Gerardo Watkins on 10-09-2023 Lymphocytes Auto (Unsp spec) [#/Vol] 1.96 10*3/uL 0.83-4.51 [facility] Automated lymphocyte count a s percentage of total leukocytesOrdered By: Gerardo Watkins on 10-09-2023 Lymphocytes/100 WBC Auto (Unsp spec) 27.9 % 19-41 [facility] Basophil percentageOrdered B y: Gerarod Watkins on 10-09-2023 Basophils/100 WBC (Bld) 0.6 % 0-1 [facility] Chloride [Moles/Vol] 108 mmol/L 98-107 [facility] Eosinophils/100 WBC (Bld) 2.6 % 0-5 [facility] Glucose [Mass/Vol] 182 mg/dL 74-106 [facility] Comment on above: Fasting Glucose resu lt greater than or equal to 126 mg/dL suggests DIABETES MELLITUS per A.D.A. criteria. Hemoglobin (Bld) [Mass/Vol] 12.8 g/dL 13.0-16.5 [facility] Monocytes/100 WBC (Bld) 6.1 % 0-10 [facility] Neutrophils (Bld) [#/Vol] 4.4 10*3/uL 2.0-7.7 [facility] Neutrophils/100 WBC (Bld) 62.1 % 47-70 [facility] Potassium [Moles/Vol] 3.8 mmol/L 3.5-5.1 [facility] Sodium [Moles/Vol] 141 mmol/L 136-145 [facility] WBC (Bld) [#/Vol] 7.0 10*3/uL 4.4-11.0 [facility] Determination of erythrocyte mean corpuscular volume (MCV)Ordered By: Gerardo Watkins on 10-09-2023 MCV (RBC) [Entitic vol] 85.7 fL 80-94 [facility] Erythrocyte distribution wid th ratioOrdered By: Gerardo Watkins on 10-09-2023 Erythrocyte distribution width (RBC) [Ratio] 14.8 % 11.6-14.6 [facility] Erythrocyte distribution wid th standard deviationOrdered By: Gerardo Watkins on 10-09-2023 Erythrocyte distribution width (RBC) [Entitic vol] 45.8 fL 35.1-43.9 [facility] Hematocrit Auto (Bld) [Volum e fraction]Ordered By: Gerardo Watkins on 10-09-2023 Hematocrit (Bld) [Volume fraction] 40.7 % 40-54 [facility] Immature granulocytes/100 WB C Auto (Bld)Ordered By: Gerardo Watkins on 10-09-2023 Immature granulocytes/100 WBC (Bld) 0.700 % 0.0-0.9 [facility] Comment on above: IG% - Immature Granu locytes (promyelocytes, myelocytes and metamyelocytes) > 1% indicates that a LEFT SHIFT is Present. Laboratory - Chemistry and C hemistry - challengeOrdered By: Gerardo Watkins on 10-09-2023 CO2 [Moles/Vol] 30.0 mmol/L 21.0-32.0 [facility] Urea nitrogen/Creatinine [Mass ratio] 13.3 mg/mg 10-20 [facility] Laboratory - Hematology and Cell countsOrdered By: Gerardo Watkins on 10-09-2023 MCH (RBC) [Entitic mass] 26.9 pg 27.0-32.0 [facility] MCHC (RBC) [Mass/Vol] 31.4 g/dL 32-36 [facility] Nucleated RBC/100 WBC (Bld) [Ratio] 0 % 0-5 [facility] Platelets (Bld) [#/Vol] 190 10*3/uL 150-450 [facility] No Panel InformationOrdered By: Gerardo Watkins on 10-09-2023 Estimated Creatinine Clearance Calc 118.90 ml/min [facility] Estimated GFR (MDRD) Amer 104 mL/min >60 [facility] Comment on above: GFR Calc Estimated GFR (MDRD) Non-Af Amer 86 mL/min >60 [facility] Comment on above: Non- GFR Calc Platelet mean volume Bryson-Ec ker (Bld) [Entitic vol]Ordered By: Gerardo Watkins on 10-09-2023 Platelet mean volume (Bld) [Entitic vol] 9.8 fL 6.2-12.0 [facility] RBC Auto (Bld) [#/Vol]Ordere d By: Gerardo Watkins on 10-09-2023 RBC (Bld) [#/Vol] 4.75 10*6/uL 4.6-6.2 [facility] Serum or plasma calcium talita urement (mass/volume)Ordered By: Gerardo Watkins on 10-09-2023 Calcium [Mass/Vol] 9.2 mg/dL 8.5-10.1 [facility] Serum or plasma creatinine m easurement (mass/volume)Ordered By: Gerardo Watkins on 10-09-2023 Creatinine [Mass/Vol] 0.97 mg/dL 0.70-1.30 [facility] Comment on above: The validity of the calculated GFR & GFRAA in patients over 70 years has not been determined. Clinical correlation is essential. Serum or plasma urea nitroge n measurement (mass/volume)Ordered By: Gerardo Watkins on 10-09-2023 Urea nitrogen [Mass/Vol] 13 mg/dL 7-18 [facility] Thin prep Papanicolaou smear with manual screeningOrdered By: Gerardo Watkins on 10-09-2023 Thin prep Papanicolaou smear with manual screening 148 mg/dL 74-106 [facility] Comment on above: MANAGEMENT OF PATIEN T CARE PER NURSING PROTOCOL Thin prep Papanicolaou smear with manual screening 3 5-15 [facility] Absolute lymphocyte countOrd ered By: Fernandez Bryant on 10-07-2023 Lymphocytes Auto (Unsp spec) [#/Vol] 1.82 10*3/uL 0.83-4.51 [facility] Automated lymphocyte count a s percentage of total leukocytesOrdered By: Fernandez Bryant on 10-07-2023 Lymphocytes/100 WBC Auto (Unsp spec) 19.8 % 19-41 [facility] Basophil percentageOrdered B y: Fenrandez Bryant on 10-07-2023 Basophils/100 WBC (Bld) 0.5 % 0-1 [facility] Bilirubin [Mass/Vol] 0.90 mg/dL 0.20-1.00 [facility] Comment on above: For patients on eltr ombopag therapy, use of Dimension [place] TBIL is not recommended. Chloride [Moles/Vol] 106 mmol/L 98-107 [facility] Eosinophils/100 WBC (Bld) 2.4 % 0-5 [facility] Glucose [Mass/Vol] 152 mg/dL 74-106 [facility] Comment on above: Fasting Glucose resu lt greater than or equal to 126 mg/dL suggests DIABETES MELLITUS per A.D.A. criteria. Hemoglobin (Bld) [Mass/Vol] 14.2 g/dL 13.0-16.5 [facility] Monocytes/100 WBC (Bld) 5.4 % 0-10 [facility] Neutrophils (Bld) [#/Vol] 6.6 10*3/uL 2.0-7.7 [facility] Neutrophils/100 WBC (Bld) 71.4 % 47-70 [facility] Potassium [Moles/Vol] 3.9 mmol/L 3.5-5.1 [facility] Protein [Mass/Vol] 7.9 g/dL 6.4-8.2 [facility] Sodium [Moles/Vol] 138 mmol/L 136-145 [facility] WBC (Bld) [#/Vol] 9.2 10*3/uL 4.4-11.0 [facility] Determination of erythrocyte mean corpuscular volume (MCV)Ordered By: Fernandez Bryant on 10-07-2023 MCV (RBC) [Entitic vol] 84.8 fL 80-94 [facility] Direct bilirubinOrdered By: Fernandez Bryant on 10-07-2023 Bilirubin.direct [Mass/Vol] 0.24 mg/dL 0.00-0.30 [facility] Erythrocyte distribution wid th ratioOrdered By: Fernandez Bryant on 10-07-2023 Erythrocyte distribution width (RBC) [Ratio] 14.6 % 11.6-14.6 [facility] Erythrocyte distribution wid th standard deviationOrdered By: Fernandez Bryant on 10-07-2023 Erythrocyte distribution width (RBC) [Entitic vol] 44.1 fL 35.1-43.9 [facility] Hematocrit Auto (Bld) [Volum e fraction]Ordered By: Fernandez Bryant on 10-07-2023 Hematocrit (Bld) [Volume fraction] 43.0 % 40-54 [facility] Immature granulocytes/100 WB C Auto (Bld)Ordered By: Fernandez Bryant on 10-07-2023 Immature granulocytes/100 WBC (Bld) 0.500 % 0.0-0.9 [facility] Comment on above: IG% - Immature Granu locytes (promyelocytes, myelocytes and metamyelocytes) > 1% indicates that a LEFT SHIFT is Present. Laboratory - Chemistry and C hemistry - challengeOrdered By: Fernandez Bryant on 10-07-2023 ALP [Catalytic activity/Vol] 103 U/L 45-117 [facility] ALT [Catalytic activity/Vol] 106 U/L 16-61 [facility] CO2 [Moles/Vol] 26.0 mmol/L 21.0-32.0 [facility] Globulin (S) [Mass/Vol] 4.1 g/dL 2.2-4.2 [facility] Lipase [Catalytic activity/Vol] 43 U/L 13-75 [facility] Comment on above: Please note:LIPASE r evised reference range effective 22. New Lipase methodology. Expected to produce lower values than the previous assay method. NEW Reference Range: 13 - 75 U/L Urea nitrogen/Creatinine [Mass ratio] 13.2 mg/mg 10-20 [facility] Laboratory - Hematology and Cell countsOrdered By: [facility] on 10-07-2023 MCH (RBC) [Entitic mass] 28.0 pg 27.0-32.0 [facility] MCHC (RBC) [Mass/Vol] 33.0 g/dL 32-36 [facility] Nucleated RBC/100 WBC (Bld) [Ratio] 0 % 0-5 [facility] Platelets (Bld) [#/Vol] 234 10*3/uL 150-450 [facility] No Panel InformationOrdered By: Gerardo Watkins on 10-07-2023 Troponin I High Sensitivity 7 pg/mL 3.0-78.0 [facility] Comment on above: Please Note: [place] t Units and Gender Specific Reference Ranges. For more information see Policy Stat Procedure [place] High Sensitivity Troponin (TNIH) and attachments. No Panel InformationOrdered By: Fernandez Bryant on 10-07-2023 Estimated Creatinine Clearance Calc 118.48 ml/min [facility] Estimated GFR (MDRD) Amer 103 mL/min >60 [facility] Comment on above: GFR Calc Estimated GFR (MDRD) Non-Af Amer 85 mL/min >60 [facility] Comment on above: Non- GFR Calc Platelet mean volume Bryson-Ec ker (Bld) [Entitic vol]Ordered By: Fernandez Bryant on 10-07-2023 Platelet mean volume (Bld) [Entitic vol] 10.0 fL 6.2-12.0 [facility] RBC Auto (Bld) [#/Vol]Ordere d By: Fernandez Bryant on 10-07-2023 RBC (Bld) [#/Vol] 5.07 10*6/uL 4.6-6.2 [facility] Serum or plasma calcium talita urement (mass/volume)Ordered By: Fernandez Bryant on 10-07-2023 Calcium [Mass/Vol] 9.6 mg/dL 8.5-10.1 [facility] Serum or plasma cardiac trop onin I panel by high sensitivity methodOrdered By: Fernandez Bryant on 10-07-2023 Tropinin I.cardiac panel High sensitivity method 7 pg/mL 3.0-78.0 [facility] Comment on above: Please Note: [place] t Units and Gender Specific Reference Ranges. For more information see Policy Stat Procedure [place] High Sensitivity Troponin (TNIH) and attachments. Serum or plasma creatinine m easurement (mass/volume)Ordered By: Fernandez Bryant on 10-07-2023 Creatinine [Mass/Vol] 0.98 mg/dL 0.70-1.30 [facility] Comment on above: The validity of the calculated GFR & GFRAA in patients over 70 years has not been determined. Clinical correlation is essential. Serum or plasma urea nitroge n measurement (mass/volume)Ordered By: [facility] on 10-07-2023 Urea nitrogen [Mass/Vol] 13 mg/dL 7-18 [facility] Thin prep Papanicolaou smear with manual screeningOrdered By: Fernandez Bryant on 10-07-2023 Thin prep Papanicolaou smear with manual screening 3.8 g/dL 3.2-5.0 [facility] Thin prep Papanicolaou smear with manual screening 62 U/L 15-37 [facility] Thin prep Papanicolaou smear with manual screening 6 5-15 [facility] Beta hydroxybutyrate [Mass o r moles/Vol]on 09-22-2023 Beta hydroxybutyrate [Moles/Vol] 0.23 mmol/L 0.02 - 0.27 mmol/L [facility] Interpretation and review of laboratory results Normal [facility] The beta-hydroxybutyrate test performance characteristics have been validated by [facility]. This test has not been approved by the FDA; however, such approval is not necessary. [facility] CBC W Auto Differential pane l (Bld)on 09-22-2023 Basophils (Bld) [#/Vol] 0.06 10*3/uL [facility] Basophils/100 WBC (Bld) 0.5 % 0.0 - 2.0 % [facility] Eosinophils (Bld) [#/Vol] 0.15 10*3/uL [facility] Eosinophils/100 WBC (Bld) 1.4 % 0.0 - 6.0 % [facility] Erythrocyte distribution width (RBC) [Ratio] 13.8 % 11.5 - 14.5 % [facility] Hematocrit (Bld) [Volume fraction] 44.8 % 41.0 - 52.0 % [facility] Hemoglobin (Bld) [Mass/Vol] 14.9 g/dL 13.5 - 17.5 g/dL [facility] Immature granulocytes (Bld) [#/Vol] 0.08 10*3/uL [facility] Immature granulocytes/100 WBC (Bld) 0.7 % 0.0 - 0.9 % [facility] Comment on above: Immature Granulocyte Count (IG) includes promyelocytes, myelocytes and metamyelocytes but does not include bands. Percent differential counts (%) should be interpreted in the context of the absolute cell counts (cells/UL). Interpretation and review of laboratory results Abnormal [facility] Lymphocytes (Bld) [#/Vol] 2.31 10*3/uL [facility] Lymphocytes/100 WBC (Bld) 21.2 % 13.0 - 44.0 % [facility] MCH (RBC) [Entitic mass] 27.5 pg 26.0 - 34.0 pg [facility] MCHC (RBC) [Mass/Vol] 33.3 g/dL 32.0 - 36.0 g/dL [facility] MCV (RBC) [Entitic vol] 83 fL 80 - 100 fL [facility] Monocytes (Bld) [#/Vol] 0.45 10*3/uL [facility] Monocytes/100 WBC (Bld) 4.1 % 2.0 - 10.0 % [facility] Neutrophils (Bld) [#/Vol] 7.87 10*3/uL High [facility] Comment on above: Percent differential counts (%) should be interpreted in the context of the absolute cell counts (cells/uL). Neutrophils/100 WBC (Bld) 72.1 % 40.0 - 80.0 % [facility] Nucleated RBC/100 WBC (Bld) [Ratio] 0.0 % [facility] Platelets (Bld) [#/Vol] 224 10*3/uL [facility] RBC (Bld) [#/Vol] 5.41 10*6/uL [facility] WBC (Bld) [#/Vol] 10.9 10*3/uL [facility] CT Abdomen and Pelvis W cont rast Elizabeth 09-22-2023 1. No acute abnormal ity within the abdomen or pelvis. 2. Hepatomegaly and hepatic steatosis. MACRO: None Signed by: Edson Fam 09/22/2023 7:41 PM Dictation workstation: [id number] Interpreted By: Edson Barksdale, STUDY: CT ABDOMEN PELVIS W IV CONTRAST; 09/22/2023 7:28 pm INDICATION: Signs/Symptoms:abd pain x3 days. COMPARISON: CT abdomen and pelvis 03/29/2014 ACCESSION NUMBER(S): [id number] ORDERING CLINICIAN: XIMENA DOYLE TECHNIQUE: Contiguous axial [...] CT abdomen and pelvis 03/29/2014 ACCESSION NUMBER(S): [id number] ORDERING CLINICIAN: XIMENA DOYLE TECHNIQUE: Contiguous axial [...] Edson Fam 09/22/2023 7:41 PM Dictation workstation: [id number] [facility] Work Phone: Radiology Study observation (narrative) [facility] Work Phone: CT Abdomen and Pelvis W cont rast IVOrdered By: Edson Fam on 09-22-2023 [facility] Work Phone: Comprehensive metabolic 2000 panelon 09-22-2023 Albumin BCP dye [Mass/Vol] 4.3 g/dL 3.4 - 5.0 g/dL [facility] ALP [Catalytic activity/Vol] 125 U/L High 33 - 120 U/L [facility] ALT With P-5'-P [Catalytic activity/Vol] 54 U/L High 10 - 52 U/L [facility] Comment on above: Patients treated wit h Sulfasalazine may generate falsely decreased results for ALT. Anion gap [Moles/Vol] 17 mmol/L 10 - 2 0 mmol/L [facility] AST With P-5'-P [Catalytic activity/Vol] 31 U/L 9 - 39 U/L [facility] Bilirubin [Mass/Vol] 0.7 mg/dL 0.0 - 1 .2 mg/dL [facility] Calcium [Mass/Vol] 9.5 mg/dL 8.6 - 10. 3 mg/dL [facility] Chloride [Moles/Vol] 90 mmol/L Low 98 - 10 7 mmol/L [facility] CO2 [Moles/Vol] 23 mmol/L 21 - 32 mmol/L [facility] Creatinine [Mass/Vol] 1.03 mg/dL 0.50 - 1.30 mg/dL [facility] GFR/1.73 sq M.predicted among non-blacks MDRD (S/P/Bld) [Vol rate/Area] 87 mL/min/{1.73_m2} - PINF [facility] Comment on above: Calculations of jonathan mated GFR are performed using the 2020 CKD-EPI Study Refit equation without the race variable for the IDMS-Traceable creatinine methods. https://jasn.asnjournals.org/content/early/ASN.2020 237790 Glucose [Mass/Vol] 517 mg/dL Critically high 74 - 9 9 mg/dL [facility] Interpretation and review of laboratory results Abnormal [facility] Potassium [Moles/Vol] 4.0 mmol/L 3.5 - 5.3 mmol/L [facility] Protein [Mass/Vol] 7.7 g/dL 6.4 - 8.2 g/dL [facility] Sodium [Moles/Vol] 126 mmol/L Low 136 - 145 mmol/L [facility] Urea nitrogen [Mass/Vol] 23 mg/dL 6 - 23 mg/dL [facility] ECG 12-LEADon 09-22-2023 ECG 12-LEAD Ventricular Rate 83 Atrial Rate 83 P-R Interval 144 QRS Duration 100 Q-T Interval 382 QTC Calculation(Bazett) 448 P [place] 64 R [place] 40 T [place] 40 QRS Count 13 Q Onset 222 [...] and clinical correlation Confirmed by Dana Flowers ([id number]) on 09/25/2023 10:53:22 AM Normal [facility] Gas panel (BldV)on Base excess Calc (BldV) [Moles/Vol] 0.6 mmol/L -2.0 - 3.0 mmol/L [facility] CO2 (BldV) [Partial pressure] 47 mm[Hg] [facility] HCO3 (Bld) [Moles/Vol] 26.6 mmol/L High 22.0 - 26.0 mmol/L [facility] Inhaled oxygen concentration 21 % [facility] Interpretation and review of laboratory results Abnormal [facility] Oxygen (BldV) [Partial pressure] 57 mm[Hg] High [facility] Oxygen saturation in Venous blood 87 % High 45 - 75 % [facility] Oxyhemoglobin (BldV) [Mass fraction] 85.4 % High 45.0 - 75.0 % [facility] pH (BldV) 7.36 [pH] 7.33 - 7.43 pH [facility] Test Comment [facility] Glucose Test strip manual (B ld) [Mass/Vol]on 09-22-2023 Glucose [Mass/Vol] 320 mg/dL High 74 - 99 mg/dL [facility] Interpretation and review of laboratory results Abnormal [facility] Glucose [Mass/Vol] 382 mg/dL High 74 - 99 mg/dL [facility] Interpretation and review of laboratory results Abnormal [facility] Glucose [Mass/Vol] 593 mg/dL High 74 - 99 mg/dL [facility] Interpretation and review of laboratory results Abnormal [facility] Lactateon 09-22-2023 Lactate [Moles/Vol] 1.6 mmol/L 0.4 - 2. 0 mmol/L [facility] Lactate [Moles/Vol] 2.3 mmol/L High 0.4 - 2. 0 mmol/L [facility] Lactate [Moles/Vol] 2.3 mmol/L High 0.4 - 2. 0 mmol/L [facility] Lactate [Moles/Vol]on 2023 Interpretation and review of laboratory results Normal [facility] Venipuncture immediately after or during the administration of Metamizole may lead to falsely low results. Testing should be performed immediately prior to Metamizole dosing. [facility] Interpretation and review of laboratory results Abnormal [facility] Venipuncture immediately after or during the administration of Metamizole may lead to falsely low results. Testing should be performed immediately prior to Metamizole dosing. [facility] Interpretation and review of laboratory results Abnormal [facility] Venipuncture immediately after or during the administration of Metamizole may lead to falsely low results. Testing should be performed immediately prior to Metamizole dosing. [facility] Lipaseon 09-22-2023 Lipase [Catalytic activity/Vol] 50 U/L 9 - 82 U/L [facility] Lipase [Catalytic activity/V ol]on 09-22-2023 Interpretation and review of laboratory results Normal [facility] Venipuncture immediately after or during the administration of Metamizole may lead to falsely low results. Testing should be performed immediately prior to Metamizole dosing. [facility] Tropinin I.cardiac panel Hig h sensitivity methodon 09-22-2023 Interpretation and review of laboratory results Normal [facility] Less than 99th percentile of normal [...] performed using a different testing methodology at [facility] than at other [facility]. Direct result comparisons should only be made within the same method. [facility] Interpretation and review of laboratory results Normal [facility] Less than 99th percentile of normal [...] performed using a different testing methodology at [facility] than at other [facility]. Direct result comparisons should only be made within the same method. [facility] Troponin I, High Sensitivity , Initialon 09-22-2023 Tropinin I.cardiac panel High sensitivity method 4 ng/L 0 - 20 ng/L [facility] Troponin, High Sensitivity, 1 Houron 09-22-2023 Tropinin I.cardiac panel High sensitivity method 5 ng/L 0 - 20 ng/L [facility] Urinalysis complete W Reflex Culture panel (U)on 09-22-2023 Appearance (U) Clear Clear [facility] Bilirubin (U) [Mass/Vol] Negative NEGATIVE [facility] Color (U) Straw Straw, Yellow [facility] Glucose Auto test strip (U) [Mass/Vol] >=500 (3+) Abnormal NEGATIVE mg/dL [facility] Interpretation and review of laboratory results Abnormal [facility] Ketones (U) [Mass/Vol] Negative NEGAT MIK mg/dL [facility] Leukocyte esterase Auto test strip Ql (U) Negative NEGATIVE [facility] Nitrite Auto test strip Ql (U) Negative NEGATIVE [facility] pH (U) 6.0 [pH] 5.0, 5.5, 6.0, 6.5, 7.0, 7.5, 8.0 [facility] Protein (U) [Mass/Vol] Negative NEGAT MIK mg/dL [facility] RBC (U) [#/Vol] Negative NEGATIVE [facility] Specific gravity (U) [Rel density] 1.035 1.005 - 1.035 [facility] Urobilinogen (U) [Mass/Vol] mg/dL NINF - 2.0 mg/dL [facility] Office Visit (Urology)on Follow-up visit Diagnoses/Problems [...] and was normal from standpoint. CT at [facility] showed mild perinephric stranding but no stones [...] MG Oral Tablet Vitals Vital Signs Recorded: [id number] 04:01PM Nglsebqgmpr57 Nbqzeq153 lb BMI Nqxovsvtgn40.97 kg/m2 BSA Calculated2.17 Tobacco Useb) No PHQ-2 [...] Apr 22 2023 4:08PM EST (Author) Normal [employer] Tobacco Screening.on 023 Fall risk assessment a) No falls within the last year ZG-Bpobbts-V [employer] Phone: Tobacco use status CPHS b) No M P-Urology-A [employer] Phone: Tobacco Screening. Yes MP-Uro logy-A [employer] Phone: Cult, Urineon 04-16-2023 Bacteria identified Cx Nom (U) Abnormal GJ-Lbobfzw-A [employer] Phone: Office Visit (Urology)on Follow-up visit Diagnoses/Problems [...] for kidney stone and pyelonephritis..Patient was in [facility], was treated with IV antibiotics and IM injections after discharge..States is feeling better..CT was done 10/07/22 and was normal from standpoint. CT at [place] showed mild perinephric stranding but no stones or obstruction. ..Chronic BPH with LUTs, sx are mild and stable..No dysuria, No hematuria since discharged from [facility]..Nocturia x 1-2, depending on fluid intake..ED is [...] Tablet Vitals Vital Signs Recorded: [id number] 09:05AM Glrcabnxgel79 Height5 ft 8 in Namjld112 lb BMI Rgpmggwuwy38.34 kg/m2 BSA Calculated2.2 Tobacco Useb) No PHQ-2 [...] [Mass/Vol] 0.19 ng/mL Normal 0.00 - 4.00 [facility] Comment on above: Result Comment: The FDA requires that the method used for PSA assay be reported to the physician. Values obtained with different assay methods must not be used interchangeably. This test was performed at [facility] using the Access Hybritech PSA assay is a two-site immunoenzymatic sandwich assay. The assay is approved for measurement of prostate-specific antigen (PSA)in serum and may be used in conjunction with a digital rectal examination in men 50 years and older as an aid in detection of prostate cancer. 5-Nsfhf-yqaaanonq inhibitors (e.g. Proscar, Finasteride, Avodart, Dutasteride and Catina) for the treatment of BPH have been shown to lower PSA levels by an average of 50% after 6 months of treatment. Performed By: #### P #### [place] [id number] Prostate Specific Antigen 04-16-2023 Prostate specific Ag [Mass/Vol] 0.19 ng/mL See Below [facility] Work Phone: Comment on above: Reference Range: 0.0 0 - 4.00The FDA requires that the method used for PSA assay be reported to the physician. Values obtained with different assay methods must not be used interchangeably. This testwas performed at [facility] using the Access Hybritech PSA assay is a two-site immunoenzymatic sandwich assay. The assay is approved for measurement of prostate-specific antigen (PSA)in serum and may be used in conjunction with a digital rectal examination in men 50 years and older as an aid in detection of prostate cancer.1-Cseeu-kvcnofzqj inhibitors (e.g. Proscar, Finasteride, Avodart, Dutasteride and Catina) for the treatment of BPH have been shown to lower PSA levels by an average of 50% after 6 months of treatment. Tobacco Screening.on 023 Fall risk assessment a) No falls within the last year [facility] Work Phone: Tobacco use status CP b) No M P-Urology-R [facility] 232 DO Work Phone: Tobacco Screening. Yes MP-Uro logy-R [facility] 232 DO Work Phone: URINE CULTURE,BACTERIALon URINE CULTURE,BACTERIAL PATIENT: NICK LOPES LOCATION: [facility] BILL#: [id number] : 70 AGE: SEX: M ORDERED BY: [...] DOSE DEPENDENT NS=NONSUSCEPTIBLE X=REPORTED IN ERROR Normal [facility] Comment on above: Performed By: #### U RINC #### [facility] [id number] [place] [address] Basic metabolic 2000 panelon 03-30-2023 Anion gap [Moles/Vol] 15 mmol/L 9 - 18 mmol/L [facility] Calcium [Mass/Vol] 9.9 mg/dL 8.5 - 10. 2 mg/dL [facility] Chloride [Moles/Vol] 100 mmol/L 97 - 10 5 mmol/L [facility] CO2 [Moles/Vol] 24 mmol/L 22 - 30 mmol/L [facility] Creatinine [Mass/Vol] 0.91 mg/dL 0.73 - 1.22 mg/dL [facility] Estimated Glomerular Filtration Rate 101 mL/min/1.73m >=60 mL/min/1.73 m [facility] Glucose [Mass/Vol] 160 mg/dL High 74 - 99 mg/dL [facility] Potassium [Moles/Vol] 4.6 mmol/L 3.7 - 5.1 mmol/L [facility] Sodium [Moles/Vol] 139 mmol/L 136 - 144 mmol/L [facility] Urea nitrogen [Mass/Vol] 19 mg/dL 9 - 24 mg/dL [facility] CBC W Auto Differential pane l (Bld)on 03-30-2023 Basophils (Bld) [#/Vol] 0.07 10*3/uL <0.11 k/uL [facility] Basophils/100 WBC (Bld) 0.7 % [facility] Differential cell count method Nom (Bld) Auto [facility] Eosinophils (Bld) [#/Vol] 0.11 10*3/uL <0.46 k/uL [facility] Eosinophils/100 WBC (Bld) 1.0 % [facility] Erythrocyte distribution width (RBC) [Ratio] 14.9 % 11.5 - 15.0 % [facility] Hematocrit (Bld) [Volume fraction] 43.6 % 39.0 - 51.0 % [facility] Hemoglobin (Bld) [Mass/Vol] 13.4 g/dL 13.0 - 17.0 g/dL [facility] Immature granulocytes (Bld) [#/Vol] 0.20 10*3/uL High <0.10 k/uL [facility] Immature granulocytes/100 WBC (Bld) 1.9 % [facility] Lymphocytes (Bld) [#/Vol] 1.72 10*3/uL 1.00 - 4.00 k/uL [facility] Lymphocytes/100 WBC (Bld) 16.1 % [facility] MCH (RBC) [Entitic mass] 27.1 pg 26.0 - 34.0 pg [facility] MCHC (RBC) [Mass/Vol] 30.7 g/dL 30.5 - 36.0 g/dL [facility] MCV (RBC) [Entitic vol] 88.1 fL 80.0 - 100.0 fL [facility] Monocytes (Bld) [#/Vol] 0.50 10*3/uL <0.87 k/uL [facility] Monocytes/100 WBC (Bld) 4.7 % C [facility] Neutrophils (Bld) [#/Vol] 8.11 10*3/uL High 1.45 - 7.50 k/uL [facility] Neutrophils/100 WBC (Bld) 75.6 % [facility] Nucleated RBC (Bld) [#/Vol] <0.01 k/uL [facility] Nucleated RBC/100 WBC (Bld) [Ratio] 0.0 /100 WBC [facility] Platelet mean volume (Bld) [Entitic vol] 11.0 fL 9.0 - 12.7 fL [facility] Platelets (Bld) [#/Vol] 220 10*3/uL 150 - 400 k/uL [facility] RBC (Bld) [#/Vol] 4.95 10*6/uL 4.20 - 6.0 0 m/uL [facility] WBC (Bld) [#/Vol] 10.71 10*3/uL 3.70 - 11.00 k/uL [facility] Narrative Note - Outpatient- IM ATB Injectionon [...] Updated: 29-Mar-2023 12:16 by Yodit Hernandez (RN) [facility] Narrative Note - Outpatient- IM ATB injectionon 03-28-2023 Narrative Note - Outpatient-IM ATB injection Narrative Note: Discipline/ClinicIM ATB injection Description pt ambulatory to [address] with son. pt given ertapenem 1 g via IM injection. pt reported no issues and d/c to home. Electronic Signatures: Yodit Hernandez) (Signed 28-Mar-2023 12:29) Authored: Narrative Note - OP Last Updated: 28-Mar-2023 12:29 by Yodit Hernandez (RN) [facility] Note - Intakeon 03-27 Clinic Note [...] Last Updated: 27-Mar-2023 12:05 by Aline Nick) [facility] [facility] Clinic Note [...] Updated: 26-Mar-2023 12:21 by Taylor Lewis II) [facility] Note - Intakeon 03-25 Clinic Note [...] 25-Mar-2023 12:10 by Taylor Lewis (HOWIE ARTHUR) [facility] Note - Intakeon 03-24 Clinic Note [...] 24-Mar-2023 12:00 by Taylor Lewis (HOWIE ARTHUR) [facility] Note - Intakeon 03-23 Clinic Note [...] you are livingno Depression: Past 2 wks: [place] down, depressed or hopelessno Past 2 wks: [place] little interest/pleasure doing thingsno Any Thoughts of [...] 23-Mar-2023 12:02 by Taylor Lewis (HOWIE ARTHUR) [facility] Glucose Glucometer (BldC) [M ass/Vol]Ordered By: Artem Gonzales on 03-22-2023 Glucose [Mass/Vol] 115 mg/dL 74-106 [facility] Comment on above: MANAGEMENT OF PATIEN T CARE PER NURSING PROTOCOL Absolute lymphocyte countOrd ered By: Artem Gonzales on 03-21-2023 Lymphocytes Auto (Unsp spec) [#/Vol] 1.57 10*3/uL 0.83-4.51 [facility] Basophil percentageOrdered B y: Artem Gonzales on 03-21-2023 Basophils/100 WBC (Bld) 0.4 % 0-1 [facility] Chloride [Moles/Vol] 104 mmol/L 98-107 [facility] Eosinophils/100 WBC (Bld) 1.2 % 0-5 [facility] Glucose [Mass/Vol] 126 mg/dL 74-106 [facility] Comment on above: Fasting Glucose resu lt greater than or equal to 126 mg/dL suggests DIABETES MELLITUS per A.D.A. criteria. Neutrophils (Bld) [#/Vol] 4.9 10*3/uL 2.0-7.7 [facility] Neutrophils/100 WBC (Bld) 65.2 % 47-70 [facility] Potassium [Moles/Vol] 4.3 mmol/L 3.5-5.1 [facility] Sodium [Moles/Vol] 140 mmol/L 136-145 [facility] WBC (Bld) [#/Vol] 7.5 10*3/uL 4.4-11.0 [facility] Blood erythrocytes count (nu mber/volume)Ordered By: Artem Gonzales on 03-21-2023 RBC (Bld) [#/Vol] 4.21 10*6/uL 4.6-6.2 [facility] Blood hemoglobin measurement (mass/volume)Ordered By: Artem Gonzales on 03-21-2023 Hemoglobin (Bld) [Mass/Vol] 11.5 g/dL 13.0-16.5 [facility] Blood lymphocytes/100 leukoc ytesOrdered By: Artem Gonzales on 03-21-2023 Lymphocytes/100 WBC (Bld) 21.0 % 19-41 [facility] Blood monocytes/100 leukocyt esOrdered By: Artem Gonzales on 03-21-2023 Monocytes/100 WBC (Bld) 11.5 % 0-10 [facility] Blood platelet mean volumeOr dered By: Artem Gonzales on 03-21-2023 Platelet mean volume (Bld) [Entitic vol] 10.8 fL 6.2-12.0 [facility] Determination of erythrocyte mean corpuscular volume (MCV)Ordered By: Artem Gonzales on 03-21-2023 MCV (RBC) [Entitic vol] 89.8 fL 80-94 [facility] Hematocrit Auto (Bld) [Volum e fraction]Ordered By: Artem Gonzales on 03-21-2023 Hematocrit (Bld) [Volume fraction] 37.8 % 40-54 [facility] Laboratory - Chemistry and C hemistry - challengeOrdered By: Artem Gonzales on 03-21-2023 CO2 [Moles/Vol] 29.0 mmol/L 21.0-32.0 [facility] Urea nitrogen/Creatinine [Mass ratio] 10.8 mg/mg 10-20 [facility] Laboratory - Hematology and Cell countsOrdered By: Artem Gonzales on 03-21-2023 Erythrocyte distribution width (RBC) [Entitic vol] 50.4 fL 35.1-43.9 [facility] Erythrocyte distribution width (RBC) [Ratio] 15.2 % 11.6-14.6 [facility] Immature granulocytes/100 WBC (Bld) 0.700 % 0.0-0.9 [facility] Comment on above: IG% - Immature Granu locytes (promyelocytes, myelocytes and metamyelocytes) > 1% indicates that a LEFT SHIFT is Present. MCH (RBC) [Entitic mass] 27.3 pg 27.0-32.0 [facility] Nucleated RBC/100 WBC (Bld) [Ratio] 0 % 0-5 [facility] MCHC Auto (RBC) [Mass/Vol]Or dered By: Artem Gonzales on 03-21-2023 MCHC (RBC) [Mass/Vol] 30.4 g/dL 32-36 [facility] No Panel InformationOrdered By: Artem Gonzales on 03-21-2023 Estimated Creatinine Clearance Calc 81.96 ml/min [facility] Estimated GFR (MDRD) Amer 99 mL/min >60 [facility] Comment on above: GFR Calc Estimated GFR (MDRD) Non-Af Amer 81 mL/min >60 [facility] Comment on above: Non- GFR Calc Platelets bldOrdered By: Fuentes Gonzales on 03-21-2023 Platelets (Bld) [#/Vol] 183 10*3/uL 150-450 [facility] Serum or plasma calcium talita urement (mass/volume)Ordered By: Artem Gonzales on 03-21-2023 Calcium [Mass/Vol] 9.0 mg/dL 8.5-10.1 [facility] Serum or plasma creatinine m easurement (mass/volume)Ordered By: Artem Gonzales on 03-21-2023 Creatinine [Mass/Vol] 1.02 mg/dL 0.70-1.30 [facility] Comment on above: The validity of the calculated GFR & GFRAA in patients over 70 years has not been determined. Clinical correlation is essential. Serum or plasma urea nitroge n measurement (mass/volume)Ordered By: Artem Gonzales on 03-21-2023 Urea nitrogen [Mass/Vol] 11 mg/dL 7-18 [facility] Thin prep Papanicolaou smear with manual screeningOrdered By: Artem Gonzales on 03-21-2023 Thin prep Papanicolaou smear with manual screening 7 5-15 [facility] Basophil percentageOrdered B y: Hiral Rodriguez on 03-18-2023 Bilirubin [Mass/Vol] 0.80 mg/dL 0.20-1.00 [facility] Comment on above: For patients on eltr ombopag therapy, use of [employer] [place] TBIL is not recommended. Protein [Mass/Vol] 7.3 g/dL 6.4-8.2 [facility] Basophil percentageOrdered B y: Porter Banuelos on 03-18-2023 Lactate [Moles/Vol] 1.2 mmol/L 0.4-2.0 [facility] INR in Blood by Coagulation assayOrdered By: Porter Banuelos on 03-18-2023 INR Coag (Bld) [Relative time] 1.2 {INR} [facility] Laboratory - Chemistry and C hemistry - challengeOrdered By: Hiral Rodriguez on 03-18-2023 ALP [Catalytic activity/Vol] 87 U/L 45-117 [facility] ALT [Catalytic activity/Vol] 46 U/L 16-61 [facility] Globulin (S) [Mass/Vol] 5.0 g/dL 2.2-4.2 [facility] Laboratory - CoagulationOrde red By: Porter Banuelos on 03-18-2023 PT Coag (PPP) [Time] 15.2 s 11.7-14.9 [facility] Laboratory - Hematology and Cell countsOrdered By: Hiral Rodriguez on 03-18-2023 Anisocytosis Ql (Bld) 1+ [facility] Review by pathologistOrdered By: Hiral Rodriguez on 03-18-2023 Pathologist review Gerry (Unsp spec) [Interp] Reviewed [facility] Comment on above: Previous reported re sult: Ramila mcrae Edited by: ANDREA on 03/19/23:1014Neutrophilic leukocytosis.Clinical correlation necessary.Ash Cerda M.D. 03/19/23 AMENDED REPORT 03/19/23 1014 PATH REV previously reported as: Ramila mcrae Serum or plasma albumin talita urement (mass/volume)Ordered By: Hiral Rodriguez on 03-18-2023 Albumin [Mass/Vol] 2.3 g/dL 3.2-5.0 [facility] Serum or plasma albumin/glob ulin mass ratioOrdered By: Hiral Rodriguez on 03-18-2023 Albumin/Globulin [Mass ratio] 0.5 {ratio} 0.9-2.4 [facility] Thin prep Papanicolaou smear with manual screeningOrdered By: Hiral Rodriguez on 03-18-2023 Thin prep Papanicolaou smear with manual screening 38 U/L 15-37 [facility] Absolute lymphocyte countOrd ered By: Porter Banuelos on 03-17-2023 Lymphocytes Auto (Unsp spec) [#/Vol] 1.20 10*3/uL 0.83-4.51 [facility] Basophil percentageOrdered B y: Porter Banuelos on 03-17-2023 Basophil percentage 25-50 SEEN /hpf 0-5 [facility] Basophils/100 WBC (Bld) 0.3 % 0-1 [facility] Bilirubin [Mass/Vol] 1.00 mg/dL 0.20-1.00 [facility] Comment on above: For patients on eltr ombopag therapy, use of [employer] [place] TBIL is not recommended. Chloride [Moles/Vol] 95 mmol/L 98-107 [facility] Eosinophils/100 WBC (Bld) 0.0 % 0-5 [facility] Glucose [Mass/Vol] 143 mg/dL 74-106 [facility] Comment on above: Fasting Glucose resu lt greater than or equal to 126 mg/dL suggests DIABETES MELLITUS per A.D.A. criteria. Neutrophils (Bld) [#/Vol] 15.8 10*3/uL 2.0-7.7 [facility] Neutrophils/100 WBC (Bld) 84.4 % 47-70 [facility] Potassium [Moles/Vol] 3.4 mmol/L 3.5-5.1 [facility] Protein [Mass/Vol] 8.8 g/dL 6.4-8.2 [facility] Sodium [Moles/Vol] 131 mmol/L 136-145 [facility] WBC (Bld) [#/Vol] 18.7 10*3/uL 4.4-11.0 [facility] Bilirubin Test strip Ql (U)O rdered By: Porter Banuelos on 03-17-2023 Bilirubin Ql (U) 1 mg/dL Negative [facility] Comment on above: COLOR OF URINE MAY A FFECT DIPSTICK RESULTS. Blood erythrocytes count (nu mber/volume)Ordered By: Porter Banuelos on 03-17-2023 RBC (Bld) [#/Vol] 4.83 10*6/uL 4.6-6.2 [facility] Blood hemoglobin measurement (mass/volume)Ordered By: Porter Banuelos on 03-17-2023 Hemoglobin (Bld) [Mass/Vol] 13.5 g/dL 13.0-16.5 [facility] Blood lymphocytes/100 leukoc ytesOrdered By: Porter Banuelos on 03-17-2023 Lymphocytes/100 WBC (Bld) 6.4 % 19-41 [facility] Blood manual differential co mment interpretation (narrative result)Ordered By: Porter Banuelos on 03-17-2023 Manual differential comment Gerry (Bld) [Interp] SCANNED [facility] Comment on above: MONOCYTOSIS NOTED Blood monocytes/100 leukocyt esOrdered By: Porter Banuelos on 03-17-2023 Monocytes/100 WBC (Bld) 8.2 % 0-10 [facility] Blood platelet mean volumeOr dered By: Porter Banuelos on 03-17-2023 Platelet mean volume (Bld) [Entitic vol] 9.5 fL 6.2-12.0 [facility] COVID-19 virus antigen assay Ordered By: Porter Banuelos on 03-17-2023 SARS-CoV-2 (COVID-19) Ag IA.rapid Ql (Resp) [facility] Culture, urineOrdered By: Do enrike Banuelos on 03-17-2023 Bacteria identified Cx Nom (U) ESBL Escherichia coli [facility] Determination of erythrocyte mean corpuscular volume (MCV)Ordered By: Porter Banuelos on 03-17-2023 MCV (RBC) [Entitic vol] 88.0 fL 80-94 [facility] Hematocrit Auto (Bld) [Volum e fraction]Ordered By: Porter Banuelos on 03-17-2023 Hematocrit (Bld) [Volume fraction] 42.5 % 40-54 [facility] Hyaline casts LM.LPF (Urine sed) [#/Area]Ordered By: Porter Banuelos on 03-17-2023 Hyaline casts (Urine sed) [#/Area] 0 /[LPF] 0-5 [facility] Ketones Test strip Ql (U)Ord ered By: Porter Banuelos on 03-17-2023 Ketones Ql (U) 15 mg/dl Negative [facility] Laboratory - Chemistry and C hemistry - challengeOrdered By: Porter Banuelos on 03-17-2023 ALP [Catalytic activity/Vol] 109 U/L 45-117 [facility] ALT [Catalytic activity/Vol] 58 U/L 16-61 [facility] CO2 [Moles/Vol] 31.0 mmol/L 21.0-32.0 [facility] Globulin (S) [Mass/Vol] 6.0 g/dL 2.2-4.2 [facility] Lipase [Catalytic activity/Vol] 25 U/L 13-75 [facility] Comment on above: Please note:LIPASE r evised reference range effective 22. New Lipase methodology. Expected to produce lower values than the previous assay method. NEW Reference Range: 13 - 75 U/L Urea nitrogen/Creatinine [Mass ratio] 10.1 mg/mg 10-20 [facility] Laboratory - Chemistry and C hemistry - challengeOrdered By: Hiral Rodriguez on 03-17-2023 Magnesium [Mass/Vol] 2.3 mg/dL 1.6-2.6 [facility] Laboratory - Hematology and Cell countsOrdered By: Porter Banuelos on 03-17-2023 Erythrocyte distribution width (RBC) [Entitic vol] 47.5 fL 35.1-43.9 [facility] Erythrocyte distribution width (RBC) [Ratio] 14.6 % 11.6-14.6 [facility] Immature granulocytes/100 WBC (Bld) 0.700 % 0.0-0.9 [facility] Comment on above: IG% - Immature Granu locytes (promyelocytes, myelocytes and metamyelocytes) > 1% indicates that a LEFT SHIFT is Present. MCH (RBC) [Entitic mass] 28.0 pg 27.0-32.0 [facility] Nucleated RBC/100 WBC (Bld) [Ratio] 0 % 0-5 [facility] MCHC Auto (RBC) [Mass/Vol]Or dered By: Porter Banuelos on 03-17-2023 MCHC (RBC) [Mass/Vol] 31.8 g/dL 32-36 [facility] Mucus LM Ql (Urine sed)Order ed By: Porter Banuelos on 03-17-2023 Mucus Ql (Urine sed) 0 SEEN /hpf [facility] Nitrite Test strip Ql (U)Ord ered By: Porter Banuelos on 03-17-2023 Nitrite Ql (U) Positive Negative [facility] No Panel InformationOrdered By: Porter Banuelos on 03-17-2023 Estimated Creatinine Clearance Calc 44.47 ml/min [facility] Estimated GFR (MDRD) Amer 49 mL/min >60 [facility] Comment on above: GFR Calc Estimated GFR (MDRD) Non-Af Amer 40 mL/min >60 [facility] Comment on above: Non- GFR Calc Platelets bldOrdered By: Mike Banuelos on 03-17-2023 Platelets (Bld) [#/Vol] 219 10*3/uL 150-450 [facility] Protein Test strip Ql (U)Ord ered By: Porter Banuelos on 03-17-2023 Protein Ql (U) 500 mg/dl Negative [facility] Review by pathologistOrdered By: Porter Banuelos on 03-17-2023 Pathologist review Gerry (Unsp spec) [Interp] May foll [facility] Serum or plasma albumin talita urement (mass/volume)Ordered By: Porter Banuelos on 03-17-2023 Albumin [Mass/Vol] 2.8 g/dL 3.2-5.0 [facility] Serum or plasma albumin/glob ulin mass ratioOrdered By: Porter Banuelos on 03-17-2023 Albumin/Globulin [Mass ratio] 0.5 {ratio} 0.9-2.4 [facility] Serum or plasma calcium talita urement (mass/volume)Ordered By: Porter Banuelos on 03-17-2023 Calcium [Mass/Vol] 9.1 mg/dL 8.5-10.1 [facility] Serum or plasma creatinine m easurement (mass/volume)Ordered By: Porter Banuelos on 03-17-2023 Creatinine [Mass/Vol] 1.88 mg/dL 0.70-1.30 [facility] Comment on above: The validity of the calculated GFR & GFRAA in patients over 70 years has not been determined. Clinical correlation is essential. Serum or plasma urea nitroge n measurement (mass/volume)Ordered By: Porter Banuelos on 03-17-2023 Urea nitrogen [Mass/Vol] 19 mg/dL 7-18 [facility] Squamous epithelial cells de tection in urine sediment by light microscopyOrdered By: Porter Banuelos on 03-17-2023 Epithelial cells.squamous LM Ql (Urine sed) 0-5 SEEN /hpf 0-5 [facility] Thin prep Papanicolaou smear with manual screeningOrdered By: Porter Banuelos on 03-17-2023 Thin prep Papanicolaou smear with manual screening 45 U/L 15-37 [facility] Thin prep Papanicolaou smear with manual screening 5 5-15 [facility] Urine blood detectionOrdered By: Porter Banuelos on 03-17-2023 RBC Ql (U) 250 /ul Negative [facility] RBC Ql (U) > 100 SEEN /hpf 0-5 [facility] Urine clarityOrdered By: Mike Banuelos on 03-17-2023 Clarity (U) Cloudy Clear [facility] Urine color determinationOrd ered By: Porter Banuelos on 03-17-2023 Color (U) Yellow Yellow [facility] Urine glucose detectionOrder ed By: Porter Banuelos on 03-17-2023 Glucose Ql (U) Normal mg/dl Normal [facility] Urine leukocyte esterase det ection by dipstickOrdered By: Porter Banuelos on 03-17-2023 Leukocyte esterase Test strip Ql (U) 100 /ul Negative [facility] Urine pHOrdered By: Porter craig on 03-17-2023 pH (U) 5.0 [pH] 5.0 - 8.0 [facility] Urine sediment bacteria coun t by microscopy (number/high power field)Ordered By: Porter Banuelos on 03-17-2023 Bacteria LM.HPF (Urine sed) [#/Area] 2 /[HPF] None Seen [facility] Urine sediment fine granular cast count by microscopy (number/low power field)Ordered By: Porter Banuelos on 03-17-2023 Fine Granular Casts LM.LPF (Urine sed) [#/Area] 5-10 SEEN /lpf 0-5 [facility] Urine specific gravity measu rementOrdered By: Porter Banuelos on 03-17-2023 Specific gravity (U) [Rel density] 1.020 1.002-1.030 [facility] Urobilinogen Auto test strip Ql (U)Ordered By: Porter Banuelos on 03-17-2023 Urobilinogen Ql (U) 4 mg/dl Normal [facility] Absolute lymphocyte countOrd ered By: Tye Juarez on 03-04-2023 Lymphocytes Auto (Unsp spec) [#/Vol] 1.44 10*3/uL 0.83-4.51 [facility] Basophil percentageOrdered B y: Tye Juarez on 03-04-2023 Basophils/100 WBC (Bld) 0.4 % 0-1 [facility] Bilirubin [Mass/Vol] 0.90 mg/dL 0.20-1.00 [facility] Comment on above: For patients on eltr ombopag therapy, use of [employer] [place] TBIL is not recommended. Chloride [Moles/Vol] 100 mmol/L 98-107 [facility] Eosinophils/100 WBC (Bld) 0.2 % 0-5 [facility] Glucose [Mass/Vol] 129 mg/dL 74-106 [facility] Comment on above: Fasting Glucose resu lt greater than or equal to 126 mg/dL suggests DIABETES MELLITUS per A.D.A. criteria. Lactate [Moles/Vol] 1.3 mmol/L 0.4-2.0 [facility] Neutrophils (Bld) [#/Vol] 11.7 10*3/uL 2.0-7.7 [facility] Neutrophils/100 WBC (Bld) 83.6 % 47-70 [facility] Potassium [Moles/Vol] 3.7 mmol/L 3.5-5.1 [facility] Protein [Mass/Vol] 8.4 g/dL 6.4-8.2 [facility] Sodium [Moles/Vol] 134 mmol/L 136-145 [facility] WBC (Bld) [#/Vol] 14.0 10*3/uL 4.4-11.0 [facility] Basophil percentage 0-5 SEEN /hpf 0-5 [facility] Bilirubin Test strip Ql (U)O rdered By: Tye Juarez on 03-04-2023 Bilirubin Ql (U) 1 mg/dL Negative [facility] Comment on above: COLOR OF URINE MAY A FFECT DIPSTICK RESULTS. Blood erythrocytes count (nu mber/volume)Ordered By: Tye Juarez on 03-04-2023 RBC (Bld) [#/Vol] 4.75 10*6/uL 4.6-6.2 [facility] Blood hemoglobin measurement (mass/volume)Ordered By: Tye Juarez on 03-04-2023 Hemoglobin (Bld) [Mass/Vol] 13.3 g/dL 13.0-16.5 [facility] Blood lymphocytes/100 leukoc ytesOrdered By: Tye Juarez on 03-04-2023 Lymphocytes/100 WBC (Bld) 10.3 % 19-41 [facility] Blood monocytes/100 leukocyt esOrdered By: Tye Juarez on 03-04-2023 Monocytes/100 WBC (Bld) 5.1 % 0-10 [facility] Blood platelet mean volumeOr dered By: Tye Juarez on 03-04-2023 Platelet mean volume (Bld) [Entitic vol] 10.3 fL 6.2-12.0 [facility] Determination of erythrocyte mean corpuscular volume (MCV)Ordered By: Tye Juarez on 03-04-2023 MCV (RBC) [Entitic vol] 86.9 fL 80-94 [facility] Hematocrit Auto (Bld) [Volum e fraction]Ordered By: Tye Juarez on 03-04-2023 Hematocrit (Bld) [Volume fraction] 41.3 % 40-54 [facility] Influenza virus A and B and SARS-CoV-2 (COVID-19) Ag panel - Upper respiratory specimOrdered By: Tye Juarez on 03-04-2023 SARS-CoV-2 (COVID-19) RNA SEVERO+probe Ql (Resp) [facility] Ketones Test strip Ql (U)Ord ered By: Tye Juarez on 03-04-2023 Ketones Ql (U) 5 mg/dl Negative [facility] Laboratory - Chemistry and C hemistry - challengeOrdered By: Tye Juarez on 03-04-2023 ALP [Catalytic activity/Vol] 100 U/L 45-117 [facility] ALT [Catalytic activity/Vol] 36 U/L 16-61 [facility] CO2 [Moles/Vol] 26.0 mmol/L 21.0-32.0 [facility] Globulin (S) [Mass/Vol] 5.1 g/dL 2.2-4.2 [facility] Lipase [Catalytic activity/Vol] 20 U/L 13-75 [facility] Comment on above: Please note:LIPASE r evised reference range effective 22. New Lipase methodology. Expected to produce lower values than the previous assay method. NEW Reference Range: 13 - 75 U/L Urea nitrogen/Creatinine [Mass ratio] 12.6 mg/mg 10-20 [facility] Laboratory - Hematology and Cell countsOrdered By: Tye Juarez on 03-04-2023 Erythrocyte distribution width (RBC) [Entitic vol] 47.2 fL 35.1-43.9 [facility] Erythrocyte distribution width (RBC) [Ratio] 14.7 % 11.6-14.6 [facility] Immature granulocytes/100 WBC (Bld) 0.400 % 0.0-0.9 [facility] Comment on above: IG% - Immature Granu locytes (promyelocytes, myelocytes and metamyelocytes) > 1% indicates that a LEFT SHIFT is Present. MCH (RBC) [Entitic mass] 28.0 pg 27.0-32.0 [facility] Nucleated RBC/100 WBC (Bld) [Ratio] 0 % 0-5 [facility] MCHC Auto (RBC) [Mass/Vol]Or dered By: Tye Juarez on 03-04-2023 MCHC (RBC) [Mass/Vol] 32.2 g/dL 32-36 [facility] Mucus LM Ql (Urine sed)Order ed By: Tye Juarez on 03-04-2023 Mucus Ql (Urine sed) 0 SEEN /hpf [facility] Nitrite Test strip Ql (U)Ord ered By: Tye Juarez on 03-04-2023 Nitrite Ql (U) Negative Negative [facility] No Panel InformationOrdered By: Tye Juarez on 03-04-2023 Estimated Creatinine Clearance Calc 55.36 ml/min [facility] Estimated GFR (MDRD) Amer 63 mL/min >60 [facility] Comment on above: GFR Calc Estimated GFR (MDRD) Non-Af Amer 52 mL/min >60 [facility] Comment on above: Non- GFR Calc Platelets bldOrdered By: William Juarez on 03-04-2023 Platelets (Bld) [#/Vol] 210 10*3/uL 150-450 [facility] Protein Test strip Ql (U)Ord ered By: Tye Juarez on 03-04-2023 Protein Ql (U) 100 mg/dl Negative [facility] Serum or plasma albumin talita urement (mass/volume)Ordered By: Tye Juarez on 03-04-2023 Albumin [Mass/Vol] 3.3 g/dL 3.2-5.0 [facility] Serum or plasma albumin/glob ulin mass ratioOrdered By: Tye Juarez on 03-04-2023 Albumin/Globulin [Mass ratio] 0.6 {ratio} 0.9-2.4 [facility] Serum or plasma calcium talita urement (mass/volume)Ordered By: Tye Juarez on 03-04-2023 Calcium [Mass/Vol] 9.7 mg/dL 8.5-10.1 [facility] Serum or plasma creatinine m easurement (mass/volume)Ordered By: Tye Juarez on 03-04-2023 Creatinine [Mass/Vol] 1.51 mg/dL 0.70-1.30 [facility] Comment on above: The validity of the calculated GFR & GFRAA in patients over 70 years has not been determined. Clinical correlation is essential. Serum or plasma urea nitroge n measurement (mass/volume)Ordered By: Tye Juarez on 03-04-2023 Urea nitrogen [Mass/Vol] 19 mg/dL 7-18 [facility] Squamous epithelial cells de tection in urine sediment by light microscopyOrdered By: Tye Juarez on 03-04-2023 Epithelial cells.squamous LM Ql (Urine sed) 0-5 SEEN /hpf 0-5 [facility] Thin prep Papanicolaou smear with manual screeningOrdered By: Tye Juarez on 03-04-2023 Thin prep Papanicolaou smear with manual screening 19 U/L 15-37 [facility] Thin prep Papanicolaou smear with manual screening 8 5-15 [facility] Urine blood detectionOrdered By: Tye Juarez on 03-04-2023 RBC Ql (U) 25 /ul Negative [facility] RBC Ql (U) 0 SEEN /hpf 0-5 [facility] Urine clarityOrdered By: William Juarez on 03-04-2023 Clarity (U) Clear Clear [facility] Urine color determinationOrd ered By: Tye Juarez on 03-04-2023 Color (U) Yellow Yellow [facility] Urine glucose detectionOrder ed By: Tye Juarez on 03-04-2023 Glucose Ql (U) Normal mg/dl Normal [facility] Urine leukocyte esterase det ection by dipstickOrdered By: Tye Juarez on 03-04-2023 Leukocyte esterase Test strip Ql (U) 25 /ul Negative [facility] Urine pHOrdered By: Tye medeiros on 03-04-2023 pH (U) 5.0 [pH] 5.0 - 8.0 [facility] Urine sediment bacteria coun t by microscopy (number/high power field)Ordered By: Tye Juarez on 03-04-2023 Bacteria LM.HPF (Urine sed) [#/Area] 0 /[HPF] None Seen [facility] Urine specific gravity measu rementOrdered By: Tye Juarez on 03-04-2023 Specific gravity (U) [Rel density] 1.025 1.002-1.030 [facility] Urobilinogen Auto test strip Ql (U)Ordered By: Tye Juarez on 03-04-2023 Urobilinogen Ql (U) 4 mg/dl Normal [facility] Absolute lymphocyte countOrd ered By: Gregbhavesh Turner on 01-31-2023 Lymphocytes Auto (Unsp spec) [#/Vol] 1.28 10*3/uL 0.83-4.51 [facility] Basophil percentageOrdered B y: Gregbhavesh Turner on 01-31-2023 Basophil percentage 0 SEEN /hpf 0-5 [facility] Basophils/100 WBC (Bld) 0.2 % 0-1 [facility] Chloride [Moles/Vol] 105 mmol/L 98-107 [facility] Eosinophils/100 WBC (Bld) 1.1 % 0-5 [facility] Glucose [Mass/Vol] 198 mg/dL 74-106 [facility] Comment on above: Fasting Glucose resu lt greater than or equal to 126 mg/dL suggests DIABETES MELLITUS per A.D.A. criteria. Neutrophils (Bld) [#/Vol] 10.6 10*3/uL 2.0-7.7 [facility] Neutrophils/100 WBC (Bld) 82.7 % 47-70 [facility] Potassium [Moles/Vol] 4.0 mmol/L 3.5-5.1 [facility] Sodium [Moles/Vol] 139 mmol/L 136-145 [facility] WBC (Bld) [#/Vol] 12.8 10*3/uL 4.4-11.0 [facility] Bilirubin Test strip Ql (U)O rdered By: Greg Turner on 01-31-2023 Bilirubin Ql (U) Negative Negative [facility] Blood erythrocytes count (nu mber/volume)Ordered By: Greg Turner on 01-31-2023 RBC (Bld) [#/Vol] 4.70 10*6/uL 4.6-6.2 [facility] Blood hemoglobin measurement (mass/volume)Ordered By: Greg Turner on 01-31-2023 Hemoglobin (Bld) [Mass/Vol] 13.3 g/dL 13.0-16.5 [facility] Blood lymphocytes/100 leukoc ytesOrdered By: Greg Turner on 01-31-2023 Lymphocytes/100 WBC (Bld) 10.0 % 19-41 [facility] Blood monocytes/100 leukocyt esOrdered By: Gregbhavesh Turner on 01-31-2023 Monocytes/100 WBC (Bld) 5.5 % 0-10 [facility] Blood platelet mean volumeOr dered By: Greg Turner on 01-31-2023 Platelet mean volume (Bld) [Entitic vol] 9.7 fL 6.2-12.0 [facility] Determination of erythrocyte mean corpuscular volume (MCV)Ordered By: Gregbhavesh Turner on 01-31-2023 MCV (RBC) [Entitic vol] 88.3 fL 80-94 [facility] Hematocrit Auto (Bld) [Volum e fraction]Ordered By: Gregbhavesh Turner on 01-31-2023 Hematocrit (Bld) [Volume fraction] 41.5 % 40-54 [facility] Ketones Test strip Ql (U)Ord ered By: Gregbhavesh Turner on 01-31-2023 Ketones Ql (U) Negative Negative [facility] Laboratory - Chemistry and C hemistry - challengeOrdered By: Gregbhavesh Turner on 01-31-2023 CO2 [Moles/Vol] 28.0 mmol/L 21.0-32.0 [facility] Urea nitrogen/Creatinine [Mass ratio] 10.8 mg/mg 10-20 [facility] Laboratory - Hematology and Cell countsOrdered By: Gregbhavesh Turner on 01-31-2023 Erythrocyte distribution width (RBC) [Entitic vol] 46.3 fL 35.1-43.9 [facility] Erythrocyte distribution width (RBC) [Ratio] 14.4 % 11.6-14.6 [facility] Immature granulocytes/100 WBC (Bld) 0.500 % 0.0-0.9 [facility] Comment on above: IG% - Immature Granu locytes (promyelocytes, myelocytes and metamyelocytes) > 1% indicates that a LEFT SHIFT is Present. MCH (RBC) [Entitic mass] 28.3 pg 27.0-32.0 [facility] Nucleated RBC/100 WBC (Bld) [Ratio] 0 % 0-5 [facility] MCHC Auto (RBC) [Mass/Vol]Or dered By: Greg Turner on 01-31-2023 MCHC (RBC) [Mass/Vol] 32.0 g/dL 32-36 [facility] Mucus LM Ql (Urine sed)Order ed By: Greg Turner on 01-31-2023 Mucus Ql (Urine sed) 0 SEEN /hpf [facility] Nitrite Test strip Ql (U)Ord ered By: Greg Turner on 01-31-2023 Nitrite Ql (U) Negative Negative [facility] No Panel InformationOrdered By: Greg Turner on 01-31-2023 Estimated Creatinine Clearance Calc 60.14 ml/min [facility] Estimated GFR (MDRD) Amer 69 mL/min >60 [facility] Comment on above: GFR Calc Estimated GFR (MDRD) Non-Af Amer 57 mL/min >60 [facility] Comment on above: Non- GFR Calc Platelets bldOrdered By: Greg Turner on 01-31-2023 Platelets (Bld) [#/Vol] 201 10*3/uL 150-450 [facility] Protein Test strip Ql (U)Ord ered By: Greg Turner on 01-31-2023 Protein Ql (U) 30 mg/dl Negative [facility] Serum or plasma calcium talita urement (mass/volume)Ordered By: Greg Turner on 01-31-2023 Calcium [Mass/Vol] 9.2 mg/dL 8.5-10.1 [facility] Serum or plasma creatinine m easurement (mass/volume)Ordered By: Greg Turner on 01-31-2023 Creatinine [Mass/Vol] 1.39 mg/dL 0.70-1.30 [facility] Comment on above: The validity of the calculated GFR & GFRAA in patients over 70 years has not been determined. Clinical correlation is essential. Serum or plasma urea nitroge n measurement (mass/volume)Ordered By: Greg Turner on 01-31-2023 Urea nitrogen [Mass/Vol] 15 mg/dL 7-18 [facility] Squamous epithelial cells de tection in urine sediment by light microscopyOrdered By: Greg Turner on 01-31-2023 Epithelial cells.squamous LM Ql (Urine sed) 0-5 SEEN /hpf 0-5 [facility] Thin prep Papanicolaou smear with manual screeningOrdered By: Greg Turner on 01-31-2023 Thin prep Papanicolaou smear with manual screening 6 5-15 [facility] Urine blood detectionOrdered By: Greg Turner on 01-31-2023 RBC Ql (U) 150 /ul Negative [facility] RBC Ql (U) 0-5 SEEN /hpf 0-5 [facility] Urine clarityOrdered By: Greg Turner on 01-31-2023 Clarity (U) Clear Clear [facility] Urine color determinationOrd ered By: Greg Turner on 01-31-2023 Color (U) Yellow Yellow [facility] Urine glucose detectionOrder ed By: Greg Turner on 01-31-2023 Glucose Ql (U) 100 mg/dl Normal [facility] Urine leukocyte esterase det ection by dipstickOrdered By: Greg Turner on 01-31-2023 Leukocyte esterase Test strip Ql (U) Negative Negative [facility] Urine pHOrdered By: Greg ochoa on 01-31-2023 pH (U) 6.0 [pH] 5.0 - 8.0 [facility] Urine sediment bacteria coun t by microscopy (number/high power field)Ordered By: Greg Turner on 01-31-2023 Bacteria LM.HPF (Urine sed) [#/Area] 0 /[HPF] None Seen [facility] Urine specific gravity measu rementOrdered By: Greg Turner on 01-31-2023 Specific gravity (U) [Rel density] 1.015 1.002-1.030 [facility] Urobilinogen Auto test strip Ql (U)Ordered By: Greg Turner on 01-31-2023 Urobilinogen Ql (U) Normal mg/dl Normal [facility] Basophil percentageOrdered B y: Dr. Patton on 10-25-2022 Bilirubin [Mass/Vol] 0.40 mg/dL 0.20-1.00 [facility] Comment on above: For patients on eltr ombopag therapy, use of Dimension [place] TBIL is not recommended. Chloride [Moles/Vol] 104 mmol/L 98-107 [facility] Glucose [Mass/Vol] 210 mg/dL 74-106 [facility] Comment on above: Glucose result great er than or equal to 200 mg/dLsuggests DIABETES MELLITUS per A.D.A. criteria. Potassium [Moles/Vol] 3.9 mmol/L 3.5-5.1 [facility] Protein [Mass/Vol] 6.8 g/dL 6.4-8.2 [facility] Sodium [Moles/Vol] 139 mmol/L 136-145 [facility] WBC (Bld) [#/Vol] 10.3 10*3/uL 4.4-11.0 [facility] Blood erythrocytes count (nu mber/volume)Ordered By: Dr. Patton on 10-25-2022 RBC (Bld) [#/Vol] 4.56 10*6/uL 4.6-6.2 [facility] Blood hemoglobin measurement (mass/volume)Ordered By: Dr. Patton on 10-25-2022 Hemoglobin (Bld) [Mass/Vol] 12.6 g/dL 13.0-16.5 [facility] Blood platelet mean volumeOr dered By: Dr. Patton on 10-25-2022 Platelet mean volume (Bld) [Entitic vol] 9.8 fL 6.2-12.0 [facility] Determination of erythrocyte mean corpuscular volume (MCV)Ordered By: Dr. Patton on 10-25-2022 MCV (RBC) [Entitic vol] 87.5 fL 80-94 [facility] Hematocrit Auto (Bld) [Volum e fraction]Ordered By: Dr. Patton on 10-25-2022 Hematocrit (Bld) [Volume fraction] 39.9 % 40-54 [facility] Laboratory - Chemistry and C hemistry - challengeOrdered By: Dr. Patton on 10-25-2022 ALP [Catalytic activity/Vol] 94 U/L 45-117 [facility] ALT [Catalytic activity/Vol] 53 U/L 16-61 [facility] CO2 [Moles/Vol] 27.0 mmol/L 21.0-32.0 [facility] Globulin (S) [Mass/Vol] 3.7 g/dL 2.2-4.2 [facility] Urea nitrogen/Creatinine [Mass ratio] 18.5 mg/mg 10-20 [facility] Laboratory - Hematology and Cell countsOrdered By: Dr. Patton on 10-25-2022 Erythrocyte distribution width (RBC) [Entitic vol] 45.1 fL 35.1-43.9 [facility] Erythrocyte distribution width (RBC) [Ratio] 14.1 % 11.6-14.6 [facility] MCH (RBC) [Entitic mass] 27.6 pg 27.0-32.0 [facility] MCHC Auto (RBC) [Mass/Vol]Or dered By: Dr. Patton on 10-25-2022 MCHC (RBC) [Mass/Vol] 31.6 g/dL 32-36 [facility] No Panel InformationOrdered By: Dr. Patton on 10-25-2022 Estimated Creatinine Clearance Calc 98.31 ml/min [facility] Estimated GFR (MDRD) Amer 120 mL/min >60 [facility] Comment on above: GFR Calc Estimated GFR (MDRD) Non-Af Amer 99 mL/min >60 [facility] Comment on above: Non- GFR Calc Platelets bldOrdered By: Dr. Patton on 10-25-2022 Platelets (Bld) [#/Vol] 183 10*3/uL 150-450 [facility] Serum or plasma albumin talita urement (mass/volume)Ordered By: Dr. Patton on 10-25-2022 Albumin [Mass/Vol] 3.1 g/dL 3.2-5.0 [facility] Serum or plasma albumin/glob ulin mass ratioOrdered By: Dr. Patton on 10-25-2022 Albumin/Globulin [Mass ratio] 0.8 {ratio} 0.9-2.4 [facility] Serum or plasma calcium talita urement (mass/volume)Ordered By: Dr. Patton on 10-25-2022 Calcium [Mass/Vol] 8.8 mg/dL 8.5-10.1 [facility] Serum or plasma creatinine m easurement (mass/volume)Ordered By: Dr. Patton on 10-25-2022 Creatinine [Mass/Vol] 0.86 mg/dL 0.70-1.30 [facility] Comment on above: The validity of the calculated GFR & GFRAA in patients over 70 years has not been determined. Clinical correlation is essential. Serum or plasma urea nitroge n measurement (mass/volume)Ordered By: Dr. Patton on 10-25-2022 Urea nitrogen [Mass/Vol] 16 mg/dL 7-18 [facility] Thin prep Papanicolaou smear with manual screeningOrdered By: Dr. Patton on 10-25-2022 Thin prep Papanicolaou smear with manual screening 28 U/L 15-37 [facility] Thin prep Papanicolaou smear with manual screening 8 5-15 [facility] No Panel InformationOrdered By: Dr. Patton on 10-24-2022 Activated Clotting Time 263 sec 74-137 [facility] TSH BLDon 10-08-2022 TSH Qn 3.010 m[IU]/L 0.270 - 4.200 mIU/L [facility] APTTon 10-07-2022 aPTT Coag (Bld) [Time] 28 s Normal 26 - 39 [facility] Comment on above: Result Comment: THE APTT IS NO LONGER USED FOR MONITORING UNFRACTIONATED HEPARIN THERAPY. FOR MONITORING HEPARIN THERAPY, USE THE HEPARIN ASSAY. Performed By: #### A PTT ####[address] [address] CBC AND DIFFERENTIALon 10-07 % AUTOMATED IMMATURE GRAN 0.2 % Normal 0.0 - 0.9 [facility] Comment on above: Result Comment: Cher ture Granulocyte Count (IG) includes promyelocytes, myelocytes and metamyelocytes but does not include bands. Percent differential counts (%) should be interpreted in the context of the absolute cell counts (cells/L). Performed By: #### C BCDF #### [address] [address] Basophils (Bld) [#/Vol] 0.05 10*3/uL Normal 0.00 - 0.1 0 [facility] Comment on above: Performed By: #### C BCDF #### [address] [address] Basophils/100 WBC (Bld) 0.6 % Normal 0.0 - 2.0 [facility] Comment on above: Performed By: #### C BCDF #### [address] [address] Eosinophils (Bld) [#/Vol] 0.10 10*3/uL Normal 0.00 - 0.70 [facility] Comment on above: Performed By: #### C BCDF #### [address] [address] Eosinophils/100 WBC (Bld) 1.2 % Normal 0.0 - 6.0 [facility] Comment on above: Performed By: #### C BCDF #### [address] [address] Erythrocyte distribution width (RBC) [Ratio] 14.2 % Normal 11.5 - 14.5 [facility] Comment on above: Performed By: #### C BCDF #### [address] [address] Hematocrit (Bld) [Volume fraction] 42.1 % Normal 41.0 - 52.0 [facility] Comment on above: Performed By: #### C BCDF #### [address] [address] Hemoglobin (Bld) [Mass/Vol] 13.3 g/dL Low 13.5 - 17.5 [facility] Comment on above: Performed By: #### C BCDF #### [address] [address] Lymphocytes (Bld) [#/Vol] 1.77 10*3/uL Normal 1.20 - 4.80 [facility] Comment on above: Performed By: #### C BCDF #### [address] [address] Lymphocytes/100 WBC (Bld) 21.4 % Normal 13.0 - 44.0 [facility] Comment on above: Performed By: #### C BCDF #### [address] [address] MCHC (RBC) [Mass/Vol] 31.6 g/dL Low 32.0 - 36.0 [facility] Comment on above: Performed By: #### C BCDF #### [address] [address] MCV (RBC) [Entitic vol] 88 fL Normal 80 - 100 [facility] Comment on above: Performed By: #### C BCDF #### [address] [address] Monocytes (Bld) [#/Vol] 0.42 10*3/uL Normal 0.10 - 1.0 0 [facility] Comment on above: Performed By: #### C BCDF #### [address] [address] Monocytes/100 WBC (Bld) 5.1 % Normal 2.0 - 10.0 [facility] Comment on above: Performed By: #### C BCDF #### [address] [address] Neutrophils (Bld) [#/Vol] 5.90 10*3/uL Normal 1.20 - 7.70 [facility] Comment on above: Result Comment: Perc ent differential counts (%) should be interpreted in the context of the absolute cell counts (cells/L). Performed By: #### C BCDF #### [address] [address] Neutrophils/100 WBC (Bld) 71.5 % Normal 40.0 - 80.0 [facility] Comment on above: Performed By: #### C BCDF #### [address] [address] Platelets (Bld) [#/Vol] 177 10*3/uL Normal 150 - 450 [facility] Comment on above: Performed By: #### C BCDF #### [address] [address] RBC 4.77 x10E12/L Normal 4.50 - 5.90 [facility] Comment on above: Performed By: #### C BCDF #### [address] [address] WBC (Bld) [#/Vol] 8.3 10*3/uL Normal 4.4 - 11.3 [facility] Comment on above: Performed By: #### C BCDF #### [address] [address] COMPREHENSIVE PANELon 2022 Albumin [Mass/Vol] 3.9 g/dL Normal 3.4 - 5.0 [facility] Comment on above: Performed By: #### C MP #### [address] [address] ALP [Catalytic activity/Vol] 83 U/L Normal 33 - 120 [facility] Comment on above: Performed By: #### C MP #### [address] [address] ALT [Catalytic activity/Vol] 39 U/L Normal 10 - 52 [facility] Comment on above: Result Comment: Nini ents treated with Sulfasalazine may generate falsely decreased results for ALT. Performed By: #### C MP #### [address] [address] Anion gap [Moles/Vol] 9 mmol/L Low 10 - 20 [facility] Comment on above: Performed By: #### C MP #### [address] [address] AST [Catalytic activity/Vol] 18 U/L Normal 9 - 39 [facility] Comment on above: Performed By: #### C MP #### [address] [address] Bilirubin [Mass/Vol] 0.5 mg/dL Normal 0.0 - 1.2 [facility] Comment on above: Performed By: #### C MP #### [address] [address] Calcium [Mass/Vol] 9.4 mg/dL Normal 8.6 - 10.3 [facility] Comment on above: Performed By: #### C MP #### [address] [address] Chloride [Moles/Vol] 103 mmol/L Normal 98 - 107 [facility] Comment on above: Performed By: #### C MP #### [address] [address] Creatinine [Mass/Vol] 0.91 mg/dL Normal 0.50 - 1.30 [facility] Comment on above: Performed By: #### C MP #### [address] [address] eGFR MALE >90 Normal >90 [facility] Comment on above: Result Comment: CALC ULATIONS OF ESTIMATED GFR ARE PERFORMED USING THE 2020 CKD-EPI STUDY REFIT EQUATION WITHOUT THE RACE VARIABLE FOR THE IDMS-TRACEABLE CREATININE METHODS. https://jasn.asnjournals.org/content//ASN.2020 563898 Performed By: #### C MP #### [address] [address] Glucose [Mass/Vol] 162 mg/dL High 74 - 99 [facility] Comment on above: Performed By: #### C MP #### [address] [address] HCO3 (Bld) [Moles/Vol] 30 mmol/L Normal 21 - 32 [facility] Comment on above: Performed By: #### C MP #### [address] [address] Potassium [Moles/Vol] 3.9 mmol/L Normal 3.5 - 5.3 [facility] Comment on above: Performed By: #### C MP #### [address] [address] Protein [Mass/Vol] 6.9 g/dL Normal 6.4 - 8.2 [facility] Comment on above: Performed By: #### C MP #### [address] [address] Sodium [Moles/Vol] 138 mmol/L Normal 136 - 145 [facility] Comment on above: Performed By: #### C MP #### [address] [address] Urea nitrogen [Mass/Vol] 17 mg/dL Normal 6 - 23 [facility] Comment on above: Performed By: #### C #### [address] [place] [address] CTA CHEST, ABDOMEN, PELVISon 10-07-2022 CTA CHEST, ABDOMEN, PELVIS Patient Name: NICK LOPES STUDY: CTA CHEST, ABDOMEN ; 10/07/2022 7:02 am INDICATION: epigastric pain with syncope. 51-year-old man with epigastric pain and syncope. COMPARISON: CT chest dated 01/23/2020 CT AP dated 03/29/2014 ACCESSION NUMBER(S): [id number] ORDERING CLINICIAN: BEAU DUMONT TECHNIQUE: Axial non-contrast [...] image(s) / study with Rina Kwan MD (church history teacher) and I agree with the findings as stated. This study was interpreted at [facility], [place], [place]. Electronically signed by: FIONA PORTILLO MD Normal [facility] LIPASEon 10-07-2022 Lipase [Catalytic activity/Vol] 34 U/L Normal 9 - 82 [facility] Comment on above: Result Comment: Arabella puncture immediately after or during the administration of Metamizole may lead to falsely low results. Testing should be performed immediately prior to Metamizole dosing. M-esfnrf-g-benzoquinone imine (metabolite of Acetaminophen) will generate erroneously low results in samples for patients that have taken toxic doses of acetaminophen. Performed By: #### L IPAS #### [address] [address] PT/INRon 10-07-2022 PT Coag (PPP) [Time] 11.7 s Normal 9.8 - 13.4 [facility] Comment on above: Performed By: #### P TINR #### [address] [address] PT, INR 1.0 Normal 0.9 - 1.1 [facility] Comment on above: Performed By: #### P TINR #### [address] [address] Provider Note - ED v3on 09-09 Provider [...] light. CARDIOVASCULAR: (more content not included)... Normal [facility] Risk Screen - Adult Emergenc yon 10-07-2022 [...] Learning Preferenceswritten material Cultural Considerationsnone Developmental Considerationsnone Congregation Considerationsnone Other Learnersnone Learning Assessment (Other Learner): [...] an injured patient at a Trauma Center ([facility]/[place]/[facility]/[place]): no Electronic Signatures: Larisa Carlisle (SUPV) (Signed 07-Oct-2022 06:43) Authored: Preferred Language, Patient Preferred Pharmacy, Advanced Directives, Family Violence Adult, Learning Assessment (Patient), Learning Assessment (Other Learner), Pressure Injury/TB/Substance, Pressure Injury, CAGE Last Updated: 07-Oct-2022 06:43 by Larisa Carlisle (SUPV) [facility] TROPONIN I, HIGH SENSITIVITY on 10-07-2022 TROPONIN I, HIGH SENSITIVITY Canceled [facility] Comment on above: Order Comment: TEST TROPONIN [...] performed using a different testing methodology at [facility] than at other [facility]. Direct result comparisons should only be made within the same method. Performed By: #### T [facility] #### [id number] TROPONIN I, HIGH SENSITIVITY 3 ng/L Normal 0 - 20 [facility] Comment on above: Result Comment: . Less [...] performed using a different testing methodology at [facility] than at other [facility]. Direct result comparisons should only be made within the same method. Performed By: #### T [facility] #### [address] [address] TROPONIN I, HIGH SENSITIVITY 3 ng/L Normal 0 - 20 [facility] Comment on above: Result Comment: . Less [...] performed using a different testing methodology at [facility] than at other [facility]. Direct result comparisons should only be made within the same method. Performed By: #### T [facility] #### [facility] [address] [place] [address] Therapy Communicationon Therapy Communication Message NICK LOPES was (D/C)- last seen: 04/14/22. Pt attended 4/10 visits of POC. Pt had 4 no shows and did not answer any phone calls to discuss. Signatures Electronically signed by : KRIS Kang/Dolores; May 15 2022 8:54AM EST (Author) Normal [facility] XR WRIST LEFT 3+ VIEWS (ARIADNE CRAIG)on [...] on ThuApr 10, 2022 8:48:06 AM EDT [facility] Comment on above: Order Comment: [...] ThuFeb 14, 2022 4:33:41 PM EDT Normal [facility] Comment on above: Order [...] PM EDT Transcribed by: FRENCH SANDERS on [facility] Feb 06, 2022 3:21:49 PM EDT Finalized by: FRENCH SANDERS on [facility] Feb 06, 2022 3:21:49 PM EDT [facility] Comment on above: Order Comment: [...] PM EDT Transcribed by: FRENCH SANDERS on [facility] Feb 06, 2022 3:21:49 PM EDT Finalized by: FRENCH SANDERS on [facility] Feb 06, 2022 3:21:49 PM EDT [facility] Comment on above: Order Comment: WH Injury/Trauma [...] The carpometacarpal alignment is preserved. There is [id number] 1st C[facility] joint osteoarthritis. Tiny ossific density [...] on ThuFebruary 03, 2022 3:10:11 PM EDT [facility] Comment on above: Order Comment: [facility] Injury/Trauma or Illness?:Injury/Trauma How long have you had these symptoms (acute/chronic)?:Acute Reason for exam?:pain History of cancer?:no Surgeries, chemotherapy, or radiation?:no Type of Exam?:Initial Mechanism of injury?:work related XR Shoulder - left 3 Viewson 12-03-2021 IMPRESSION: No radiographic evidence of acute osseous abnormality Tank Processor: MICHOACANO Transcribe Date/Time: Dec 03 2021 2:21P Dictated by : ROBBIN MARAVILLA MD This examination was interpreted and the report reviewed and electronically signed by: ROBBIN MARAVILLA MD on Dec 03 2021 2:21PM [facility] * * *Final Report* [...] Acromioclavicular joint intact. DIVISION OF RADIOLOGY Provider, [facility] * * *Final [...] No radiographic evidence of acute osseous abnormality Tank [facility]or: [facility] Transcribe Date/Time: Dec 03 2021 2:21P Dictated by : ROBBIN MARAVILLA MD This examination was interpreted and the report reviewed and electronically signed by: ROBBIN MARAVILLA MD on Dec 03 2021 2:21PM [facility] Radiology Study observation (narrative) [facility] XR Shoulder - left 3 ViewsOr dered By: Cc Provider on 12-03-2021 [facility] XR Chest PA and Lateralon IMPRESSION: No acute radiographic abnormality. Tank Processor: [employer] Transcribe Date/Time: Oct 16 2020 11:39A Dictated by : ESPERANZA HERCULES MD This examination was interpreted and the report reviewed and electronically signed by: ESPERANZA HERCULES MD on Oct 16 2020 11:41AM [facility] DIV[facility] OF [facility]OLOGY * * *Final Report* [...] Unremarkable. IMPRESSION IMPRESSION: No acute radiographic abnormality. Tank Processor: [facility] Transcribe Date/Time: Oct 16 2020 11:39A Dictated by : ESPERANZA HERCULES MD This examination was interpreted and the report reviewed and electronically signed by: ESPERANZA HERCULES MD on Oct 16 2020 11:41AM EST [facility] Radiology Study observation (narrative) Rupal little [facility] XR Chest PA and LateralOrder ed By: Ccf Provider on 10-16-2020 [facility] Operation-Procedureon 2017 Operation-Procedure [facility], [place] [address]QJBN MARIANNE NICK [facility] [id number] 1970DATE 05/03/2018OPERATIVE REPORT / PROCEDURE NOTESURGEON MELODY CROWLEYEPLEVI TITLEOperative NoteDATE OF [id number]/27/201 8.SURGEONMichaeLETI GuerraMASSISTANTNone.PREOPE RATIVE DIAGNOSISRight foot chronic plantar [...] the heel, followed by use of the [place] 1 for the microdebridement and the micro [...] over the weekend. Otherwise, [facility]CITLALY CROWLEY 05/03/2018 12:25 [id number] 05/03/2018 13:12 MGS/MODLElectronically Signed By Ellie Hernandez Dpm on 18 May 2018 16:53:28 [facility] CBC and Differentialon 04-23 Basophils Auto #/vol (Bld) 0.1 K/mcL Invalid Interpretation Code 0 - 0.2 [facility] Basophils/100 WBC Auto (Bld) 0.4 % Normal [facility] Comment on above: Performed By: #### C BCDIF ####Unless otherwise noted, all testing performed by [place] [phone]: [id number] Director: Addison Aceves M.D. Eosinophils Auto #/vol (Bld) 0.1 K/mcL Invalid Interpretation Code 0 - 0.5 [facility] Eosinophils/100 WBC Auto (Bld) 0.7 % Normal [facility] Comment on above: Performed By: #### C BCDIF ####Unless otherwise noted, all testing performed by [place] [phone]: [id number] Director: Addison Aceves M.D. Erythrocyte distribution width Auto Ratio (RBC) 14.9 % High 10-14.3 [facility] Comment on above: Performed By: #### C BCDIF ####Unless otherwise noted, all testing performed by [place] [id number]: [id number] Director: Addison Aceves M.D. Hematocrit Auto Volume Fraction (Bld) 46.8 % Normal 37.9-49.2 [facility] Comment on above: Performed By: #### C BCDIF ####Unless otherwise noted, all testing performed by [address] [phone]: [id number] Director: Addison Aceves M.D. Hemoglobin mass conc (Bld) 15.5 g/dL Normal 12.9-16.9 [facility] Comment on above: Performed By: #### C BCDIF ####Unless otherwise noted, all testing performed by [address] [phone]: [id number] Director: Addison Aceves M.D. Interpretation and review of laboratory results Abnormal Invalid Interpretation Code [facility] Lymphocytes Auto #/vol (Bld) 2.7 K/mcL Invalid Interpretation Code 0.9 - 3.6 [facility] Lymphocytes/100 WBC Auto (Bld) 20.4 % Normal [facility] Comment on above: Performed By: #### C BCDIF ####Unless otherwise noted, all testing performed by [address] [phone]: [id number] Director: Addison Aceves M.D. MCH Auto Entitic mass (RBC) 28.7 pg Normal 27.7-34.6 [facility] Comment on above: Performed By: #### C BCDIF ####Unless otherwise noted, all testing performed by [address] [phone]: [id number] Director: Addison Aceves M.D. MCHC Auto mass conc (RBC) 33.2 g/dL Normal 32.9-35.5 [facility] Comment on above: Performed By: #### C BCDIF ####Unless otherwise noted, all testing performed by [address] [phone]: [id number] Director: Addison Aceves M.D. MCV Auto Entitic volume (RBC) 86.6 fL Normal 82.8-99.3 [facility] Comment on above: Performed By: #### C BCDIF ####Unless otherwise noted, all testing performed by [address] [phone]: [id number] Director: Addison Aceves M.D. Monocytes Auto #/vol (Bld) 0.6 K/mcL Invalid Interpretation Code 0.2 - 0.6 [facility] Monocytes/100 WBC Auto (Bld) 4.8 % Normal [facility] Comment on above: Performed By: #### C BCDIF ####Unless otherwise noted, all testing performed by [address] [phone]: [id number] Director: Addison Aceves M.D. Neutrophils Auto #/vol (Bld) 9.9 K/mcL High 1.4 - 6.8 [facility] Platelet mean volume Auto Entitic volume (Bld) 8.4 fL Normal 6.6-10.8 [facility] Comment on above: Performed By: #### C BCDIF ####Unless otherwise noted, all testing performed by [address] [phone]: [id number] Director: Addison Aceves M.D. Platelets Auto #/vol (Bld) 212 K/mcL Invalid Interpretation Code 139 - 354 [facility] RBC Auto #/vol (Bld) 5.40 M/mcL Invalid Interpretation Code 4.0 - 5.5 [facility] Segmented Neut 73.7 % Invalid Interpretation Code [facility] WBC Auto #/vol (Bld) 13.4 K/mcL High 3.6 - 10.4 [facility] CBC with Diffon 04-23-2018 Basophils Auto #/vol (Bld) 0.1 K/mcL Normal 0-0.2 [facility] Comment on above: Performed By: #### C BCDIF ####Unless otherwise noted, all testing performed by [facility] [address] [phone]: [id number] Director: Addison Aceves M.D. Eosinophils Auto #/vol (Bld) 0.1 K/mcL Normal 0-0.5 [facility] Comment on above: Performed By: #### C BCDIF ####Unless otherwise noted, all testing performed by [address] [phone]: [id number] Director: Addison Aceves M.D. Lymphocytes Auto #/vol (Bld) 2.7 K/mcL Normal 0.9-3.6 [facility] Comment on above: Performed By: #### C BCDIF ####Unless otherwise noted, all testing performed by [place] [phone]: [id number] Director: Addison Aceves M.D. Monocytes Auto #/vol (Bld) 0.6 K/mcL Normal 0.2-0.6 [facility] Comment on above: Performed By: #### C BCDIF ####Unless otherwise noted, all testing performed by [place] [phone]: [id number] Director: Addison Aceves M.D. Neutrophils Auto #/vol (Bld) 9.9 K/mcL High 1.4-6.8 [facility] Comment on above: Performed By: #### C BCDIF ####Unless otherwise noted, all testing performed by [address] [phone]: [id number] Director: Addison Aceves M.D. Platelets Auto #/vol (Bld) 212 K/mcL Normal 139-354 [facility] Comment on above: Performed By: #### C BCDIF ####Unless otherwise noted, all testing performed by [address]CLIA: [id number] Director: Addison Aceves M.D. RBC Auto #/vol (Bld) 5.40 M/mcL Normal 4.0-5.5 [facility] Comment on above: Performed By: #### C BCDIF ####Unless otherwise noted, all testing performed by [address] [phone]: [id number] Director: Addison Aceves M.D. Segmented Neut % 73.7 % Normal [facility] Comment on above: Performed By: #### C BCDIF ####Unless otherwise noted, all testing performed by [address] [phone]: [id number] Director: Addison Aceves M.D. WBC Auto #/vol (Bld) 13.4 K/mcL High 3.6-10.4 [facility] Comment on above: Performed By: #### C BCDIF ####Unless otherwise noted, all testing performed by [address] [phone]: [id number] Director: Addison Aceves M.D. Urinalysison 04-23-2018 Bilirubin, Urine Negative Normal NEG;NEGATIV E [facility] Comment on above: Performed By: #### U A ####Unless otherwise noted, all testing performed by [address] [phone]: [id number] Director: Addison Aceves M.D. Blood, Urine Negative Normal NEG;NEGATIV E [facility] Comment on above: Performed By: #### U A ####Unless otherwise noted, all testing performed by [address] [phone]: [id number] Director: Addison Aceves M.D. Character Clear Normal [facility] Comment on above: Performed By: #### U A ####Unless otherwise noted, all testing performed by [address] [phone]: [id number] Director: Addison Aceves M.D. Color Nom (U) Straw Normal [facility] Comment on above: Performed By: #### U A ####Unless otherwise noted, all testing performed by [address] [phone]: [id number] Director: Addison Aceves M.D. Glucose Ql (U) Negative Normal NEG;NEGATIV E [facility] Comment on above: Performed By: #### U A ####Unless otherwise noted, all testing performed by [address] [phone]: [id number] Director: Addison Aceves M.D. Ketones Ql (U) Negative Invalid Interpretation Code NEG;NEGATIV E mg/dL [facility] Leukocyte esterase Test strip Ql (U) Negative Invalid Interpretation Code Negative [facility] Nitrite, Urine Negative Normal NEG;NEGATIV E [facility] Comment on above: Performed By: #### U A ####Unless otherwise noted, all testing performed by [address] [phone]: [id number] Director: Addison Aceves M.D. pH Test strip (U) 5.0 [pH] Normal 4.5-8.0 [facility] Comment on above: Performed By: #### U A ####Unless otherwise noted, all testing performed by [address] [phone]: [id number] Director: Addison Aceves M.D. Protein, Urine Negative Normal NEG;NEGATIV E [facility] Comment on above: Performed By: #### U A ####Unless otherwise noted, all testing performed by [address] [phone]: [id number] Director: Addison Aceves M.D. RBCs, Urine < 1 Invalid Interpretation Code 0 - 5 /HPF [facility] Specific [place] 1.008 1 Invalid Interpretation Code 1.003 - 1.029 [facility] Urobilinogen, Urine < 2.0 Normal <2 [facility] Comment on above: Performed By: #### U A ####Unless otherwise noted, all testing performed by [address] [phone]: [id number] Director: Addison Aceves M.D. WBCs, Urine 1 /HPF Invalid Interpretation Code 0 - 5 [facility] Urinalysis, Routineon 2017 Ketone,Urine Negative Normal NEG;NEGATIV E [facility] Comment on above: Performed By: #### U A ####Unless otherwise noted, all testing performed by [address] [phone]: [id number] Director: Addison Aceves M.D. Leuk.Esterase,Urine Negative Normal Negative [facility] Comment on above: Performed By: #### U A ####Unless otherwise noted, all testing performed by [address] [phone]: [id number] Director: Addison Aceves M.D. RBC LM.HPF #/area (Urine sed) /[HPF] Normal 0-5 [facility] Comment on above: Performed By: #### U A ####Unless otherwise noted, all testing performed by [address] [phone]: [id number] Director: Addison Aceves M.D. Specific [place],Urine 1.008 Normal 1.003-1.029 [facility] Comment on above: Performed By: #### U A ####Unless otherwise noted, all testing performed by [address] [phone]: [id number] Director: Addison Aceves M.D. WBC,Urine 1 /HPF Normal 0-5 [facility] Comment on above: Performed By: #### U A ####Unless otherwise noted, all testing performed by [address] [phone]: [id number] Director: Addison Aceves M.D. Vital Signs Date Time Vital Sign Value Performing Clinician Facility 05-26-2025 16:56-0400 Body temperature 98.71 [degF] Velia Atwoodta [employer] Work Phone: [facility] 05-26-2025 16:56-0400 Diastolic blood pressure 93 mm[Hg] eVlia Atwoodta [employer] Work Phone: [facility] 05-26-2025 16:56-0400 Heart rate 77 /min Velia Atwoodta [employer] Work Phone: [facility] 05-26-2025 16:56-0400 Respiratory rate 18 /min Velia Atwoodta [employer] Work Phone: [facility] 05-26-2025 16:56-0400 SaO2% (BldA) [Mass fraction] 97 % Velia Atwoodta [employer] Work Phone: [facility] 05-26-2025 16:56-0400 Systolic blood pressure 145 mm[Hg] Velia Atwoodta [employer] Work Phone: [facility] 10-04-2024 15:58-0500 Body height 172.2 cm Ginger Lugo MD Work Phone: [facility] 10-04-2024 15:58-0500 Body mass index (BMI) [Ratio] 47.26 kg/m2 Ginger Lugo MD Work Phone: [facility] 10-04-2024 15:58-0500 Body weight 140.16 kg Ginger Lugo MD Work Phone: [facility] 10-04-2024 15:58-0500 Diastolic blood pressure 68 mm[Hg] Ginger Lugo MD Work Phone: [facility] 10-04-2024 15:58-0500 Heart rate 89 /min Ginger Lugo MD Work Phone: [facility] 10-04-2024 15:58-0500 SaO2% (BldA) [Mass fraction] 95 % Ginger Lugo MD Work Phone: [facility] 10-04-2024 15:58-0500 Systolic blood pressure 128 mm[Hg] Ginger Lugo MD Work Phone: [facility] 09-19-2024 14:13-0500 Body height 172.2 cm Jose Loo MD Work Phone: [facility] Comment on above: with shoes 09-19-2024 14:13-0500 Body mass index (BMI) [Ratio] 48.36 kg/m2 Jose Loo MD Work Phone: [facility] 09-19-2024 14:13-0500 Body weight 143.4 kg Jose Loo MD Work Phone: [facility] 09-15-2024 11:14-0500 Body mass index (BMI) [Ratio] 52.6 kg/m2 Nuha Suppan [employer] Work Phone: [facility] 09-15-2024 11:14-0500 Body temperature 97.11 [degF] Nuha Suppan [employer] Work Phone: [facility] 09-15-2024 11:14-0500 Body weight 145.6 kg Nuha Suppan [employer] Work Phone: [facility] 09-15-2024 11:14-0500 Diastolic blood pressure 80 mm[Hg] Nuha Suppan [employer] Work Phone: [facility] 09-15-2024 11:14-0500 Heart rate 98 /min Nuha Suppan [employer] Work Phone: [facility] 09-15-2024 11:14-0500 SaO2% (BldA) [Mass fraction] 97 % Nuha Suppan [employer] Work Phone: [facility] 09-15-2024 11:14-0500 Systolic blood pressure 130 mm[Hg] Nuha Suppan [employer] Work Phone: [facility] 08-09-2024 12:49-0500 Body height 166.4 cm Ginger Lugo MD Work Phone: [facility] 08-09-2024 12:49-0500 Body mass index (BMI) [Ratio] 50.87 kg/m2 Ginger Lugo MD Work Phone: [facility] 08-09-2024 12:49-0500 Body weight 140.8 kg Ginger Lugo MD Work Phone: [facility] 08-09-2024 12:49-0500 Diastolic blood pressure 88 mm[Hg] Ginger Lugo MD Work Phone: [facility] 08-09-2024 12:49-0500 Heart rate 75 /min Ginger Lugo MD Work Phone: [facility] 08-09-2024 12:49-0500 SaO2% (BldA) [Mass fraction] 96 % Ginger Lugo MD Work Phone: [facility] 08-09-2024 12:49-0500 Systolic blood pressure 134 mm[Hg] Ginger Lugo MD Work Phone: [facility] 05-04-2024 14:45-0400 Diastolic blood pressure 80 mm[Hg] Ginger Lugo MD Work Phone: [facility] 05-04-2024 14:45-0400 Systolic blood pressure 134 mm[Hg] Ginger Lugo MD Work Phone: [facility] 05-04-2024 14:11-0400 Body mass index (BMI) [Ratio] 48.18 kg/m2 Ginger Lugo MD Work Phone: [facility] 05-04-2024 14:11-0400 Body weight 133.36 kg Ginger Lugo MD Work Phone: [facility] 05-04-2024 14:11-0400 Heart rate 70 /min Ginger Lugo MD Work Phone: [facility] 05-04-2024 14:11-0400 SaO2% (BldA) [Mass fraction] 95 % Ginger Lugo MD Work Phone: [facility] 03-28-2024 18:41-0400 Diastolic blood pressure 80 mm[Hg] Ginger Lugo MD Work Phone: [facility] 03-28-2024 18:41-0400 Systolic blood pressure 136 mm[Hg] Ginger Lugo MD Work Phone: [facility] 03-28-2024 18:12-0400 Body mass index (BMI) [Ratio] 47.85 kg/m2 Ginger Lugo MD Work Phone: [facility] 03-28-2024 18:12-0400 Body weight 132.45 kg Ginger Lugo MD Work Phone: [facility] 03-28-2024 18:12-0400 Heart rate 69 /min Ginger Lugo MD Work Phone: [facility] 03-28-2024 18:12-0400 SaO2% (BldA) [Mass fraction] 96 % Ginger Lugo MD Work Phone: [facility] 10-30-2023 14:17-0500 Body height 166.4 cm Ginger Lugo MD Work Phone: [facility] 10-30-2023 14:17-0500 Body weight 133.72 kg Ginger Lugo MD Work Phone: [facility] 10-30-2023 14:17-0500 Diastolic blood pressure 84 mm[Hg] Ginger Lugo MD Work Phone: [facility] 10-30-2023 14:17-0500 Heart rate 76 /min Ginger Lugo MD Work Phone: [facility] 10-30-2023 14:17-0500 SaO2% (BldA) [Mass fraction] 96 % Ginger Lugo MD Work Phone: [facility] 10-30-2023 14:17-0500 Systolic blood pressure 128 mm[Hg] Ginger Lugo MD Work Phone: [facility] 10-29-2023 10:15-0500 Body height 172.7 cm Abilio Gong CNP Work Phone: [facility] 10-29-2023 10:15-0500 Body mass index (BMI) [Ratio] 44.4 kg/m2 Abilio Gong [employer] Work Phone: [facility] 10-29-2023 10:15-0500 Body weight 132.45 kg Abilio Gong [employer] Work Phone: [facility] 10-29-2023 10:15-0500 Diastolic blood pressure 72 mm[Hg] Abilio Sextonk [employer] Work Phone: [facility] 10-29-2023 10:15-0500 Heart rate 72 /min Abilio Sextonk [employer] Work Phone: [facility] 10-29-2023 10:15-0500 SaO2% (BldA) [Mass fraction] 94 % Abilio Gong [employer] Work Phone: [facility] 10-29-2023 10:15-0500 Systolic blood pressure 112 mm[Hg] Abilio Sextonk [employer] Work Phone: [facility] 10-24-2023 11:21-0500 Body temperature 97.9 [degF] Ginger Lugo MD Work Phone: [facility] 10-24-2023 11:21-0500 Body weight 129.55 kg Ginger Lugo MD Work Phone: [facility] 10-24-2023 11:21-0500 Diastolic blood pressure 75 mm[Hg] Ginger Lugo MD Work Phone: [facility] 10-24-2023 11:21-0500 Heart rate 79 /min Ginger Lugo MD Work Phone: [facility] 10-24-2023 11:21-0500 Respiratory rate 20 /min Ginger Lugo MD Work Phone: [facility] 10-24-2023 11:21-0500 SaO2% (BldA) [Mass fraction] 96 % Ginger Lugo MD Work Phone: [facility] 10-24-2023 11:21-0500 Systolic blood pressure 118 mm[Hg] Ginger Lugo MD Work Phone: [facility] 10-16-2023 12:55-0500 Body temperature 98.1 [degF] Nuha Suppan [employer] Work Phone: [facility] 10-16-2023 12:55-0500 Body weight 132.45 kg Nuha Suppan [employer] Work Phone: [facility] 10-16-2023 12:55-0500 Diastolic blood pressure 78 mm[Hg] Nuha Suppan [employer] Work Phone: [facility] 10-16-2023 12:55-0500 Heart rate 72 /min Nuha Suppan [employer] Work Phone: [facility] 10-16-2023 12:55-0500 Respiratory rate 20 /min Nuha Suppan [employer] Work Phone: [facility] 10-16-2023 12:55-0500 SaO2% (BldA) [Mass fraction] 96 % Nuha Suppan [employer] Work Phone: [facility] 10-16-2023 12:55-0500 Systolic blood pressure 132 mm[Hg] Nuha Suppan [employer] Work Phone: [facility] 10-09-2023 15:30-0500 Diastolic blood pressure 96 mm[Hg] Dr. Ginger Lugo Work Phone: [facility] 10-09-2023 15:30-0500 Heart rate 60 /min Dr. Ginger Lugo Work Phone: [facility] 10-09-2023 15:30-0500 Respiratory rate 18 /min Dr. Ginger Lugo Work Phone: [facility] 10-09-2023 15:30-0500 SaO2% (BldA) [Mass fraction] 97 % Dr. Ginger Lugo Work Phone: [facility] 10-09-2023 15:30-0500 Systolic blood pressure 158 mm[Hg] Dr. Ginger Lugo Work Phone: [facility] 10-09-2023 14:36-0500 Body temperature 97.6 [degF] Dr. Ginger Lugo Work Phone: [facility] 10-09-2023 09:40-0500 Inhaled oxygen flow rate 2 L/min Dr. Ginger Lugo Work Phone: [facility] 10-07-2023 11:48-0500 Body height 172.[address] Ginger Lugo Work Phone: [facility] 10-07-2023 11:48-0500 Body mass index (BMI) [Ratio] 44.6 kg/m2 Dr. Ginger Lugo Work Phone: [facility] 10-07-2023 11:48-0500 Body weight 133.[address] Ginger Lugo Work Phone: [facility] 10-07-2023 11:12-0500 Diastolic blood pressure 83 mm[Hg] [facility] 10-07-2023 11:12-0500 Heart rate 64 /min [facility] 10-07-2023 11:12-0500 Respiratory rate 18 /min [facility] 10-07-2023 11:12-0500 SaO2% (BldA) [Mass fraction] 96 % [facility] 10-07-2023 11:12-0500 Systolic blood pressure 112 mm[Hg] [facility] 10-07-2023 08:44-0500 Body height 172.72 cm [facility] 10-07-2023 08:44-0500 Body mass index (BMI) [Ratio] 45.2 kg/m2 [facility] 10-07-2023 08:44-0500 Body temperature 97.2 [degF] [facility] 10-07-2023 08:44-0500 Body weight 134.9 kg [facility] 09-22-2023 22:00-0500 Diastolic blood pressure 79 mm[Hg] Ismael Durham DO Work Phone: [facility] 09-22-2023 22:00-0500 Heart rate 82 /min Ismael Durham DO Work Phone: [facility] 01-16-2024 22:00-0500 Respiratory rate 18 /min Ismael Durham DO Work Phone: [facility] 09-22-2023 22:00-0500 SaO2% (BldA) [Mass fraction] 95 % Ismael Durham DO Work Phone: [facility] 09-22-2023 22:00-0500 Systolic blood pressure 137 mm[Hg] Ismael Durham DO Work Phone: [facility] 09-22-2023 18:36-0500 Body temperature 37.0 Ismael Durham DO Work Phone: [facility] 09-22-2023 17:49-0500 Body temperature 97.7 [degF] Ismael Durham DO Work Phone: [facility] 09-22-2023 17:17-0500 Body height 172.7 cm Ismael Durham DO Work Phone: [facility] 09-22-2023 17:17-0500 Body mass index (BMI) [Ratio] 44.09 kg/m2 Ismael Durham DO Work Phone: [facility] 09-22-2023 17:17-0500 Body weight 131.54 kg Ismael Durham DO Work Phone: [facility] 04-22-2023 16:01-0400 Body mass index (BMI) [Ratio] 34.97 kg/m2 Ginger Lugo Work Phone: VG-Wvjlntn-Evwgsmp Work Phone: 04-22-2023 16:01-0400 Body surface area Derived from formula 2.17 m2 Ginger Lugo Work Phone: UV-Yqhkado-Ocwhtba Work Phone: 04-22-2023 16:01-0400 Body weight 104.33 kg Ginger Lugo Work Phone: DB-Djvpbbz-Hmofqxu Work Phone: 04-22-2023 16:01-0400 Respiratory rate 16 /min Ginger Lugo Work Phone: NO-Yjndwvd-Tzbqtim Work Phone: 04-16-2023 09:05-0400 Body height 172.72 cm Ginger Giorgio Kowalskio Work Phone: ZL-Cpawvbb-Gvacpdw d HC 232 DO Work Phone: 04-16-2023 09:05-0400 Body mass index (BMI) [Ratio] 36.34 kg/m2 Ginger Giorgio Kowalskio Work Phone: IK-Yzqjonv-Sjtssae d HC 232 DO Work Phone: 04-16-2023 09:05-0400 Body surface area Derived from formula 2.2 m2 Ginger Giorgio Kowalskio Work Phone: DC-Wpnlgvk-Mkgyucc d HC 232 DO Work Phone: 04-16-2023 09:05-0400 Body weight 108.41 kg Ginger Giorgio Kowalskio Work Phone: CP-Lempicw-Tapaudp d HC 232 DO Work Phone: 04-16-2023 09:05-0400 Respiratory rate 16 /min Ginger Giorgio Pema Work Phone: QC-Agarvhf-Ctqsksk d HC 232 DO Work Phone: 03-30-2023 09:28-0400 Body weight 126.55 kg Ginger Lugo MD Work Phone: [facility] 03-30-2023 09:28-0400 Diastolic blood pressure 72 mm[Hg] Ginger Lugo MD Work Phone: [facility] 03-30-2023 09:28-0400 Heart rate 103 /min Ginger Lugo MD Work Phone: [facility] 03-30-2023 09:28-0400 SaO2% (BldA) [Mass fraction] 96 % Ginger Lugo MD Work Phone: [facility] 03-30-2023 09:28-0400 Systolic blood pressure 132 mm[Hg] Ginger Lugo MD Work Phone: [facility] 03-22-2023 11:39-0400 Diastolic blood pressure 85 mm[Hg] Dr. Ginger Lugo Work Phone: [facility] 03-22-2023 11:39-0400 Heart rate 67 /min Dr. Ginger Lugo Work Phone: 9(492)726-457911 [place] [address] 03-22-2023 11:39-0400 Systolic blood pressure 138 mm[Hg] Dr. Ginger Lugo Work Phone: 8(683)193-250421 [place] [address] 03-22-2023 10:15-0400 Body temperature 97.8 [degF] Dr. Ginger Lugo Work Phone: 7(154)139-573921 [place] [address] 03-22-2023 10:15-0400 Respiratory rate 18 /min Dr. Ginger Lugo Work Phone: 2(609)377-699311 [place] [address] 03-22-2023 10:15-0400 SaO2% (BldA) [Mass fraction] 98 % Dr. Ginger Lugo Work Phone: 5(996)079-739521 [place] [address] 03-22-2023 07:51-0400 Inhaled oxygen flow rate 2 L/min Dr. Ginger Lugo Work Phone: 6(871)060-384521 [place] [address] 03-22-2023 05:49-0400 Body mass index (BMI) [Ratio] 42.4 kg/m2 Dr. Ginger Lugo Work Phone: 0(078)996-897921 [place] [address] 03-22-2023 05:49-0400 Body weight 126.[address] Ginger Lugo Work Phone: 4(187)318-705221 [place] [address] 03-18-2023 14:34-0400 Body height 172.[address] Ginger Lugo Work Phone: 2(394)756-814921 [place] [address] 03-18-2023 00:36-0400 Body temperature 98.5 [degF] [facility] 03-18-2023 00:36-0400 Diastolic blood pressure 57 mm[Hg] [facility] 03-18-2023 00:36-0400 Heart rate 108 /min [facility] 03-18-2023 00:36-0400 Respiratory rate 17 /min [facility] 03-18-2023 00:36-0400 SaO2% (BldA) [Mass fraction] 96 % [facility] 03-18-2023 00:36-0400 Systolic blood pressure 130 mm[Hg] [facility] 03-18-2023 00:24-0400 Inhaled oxygen concentration 21 % Dr. Ginger Lugo Work Phone: [facility] 03-17-2023 19:23-0400 Body height 172.72 cm [facility] 03-17-2023 19:23-0400 Body mass index (BMI) [Ratio] 42.8 kg/m2 [facility] 03-17-2023 19:23-0400 Body weight 127.86 kg [facility] 03-05-2023 01:10-0400 Diastolic blood pressure 74 mm[Hg] [facility] 03-05-2023 01:10-0400 Heart rate 99 /min [facility] 03-05-2023 01:10-0400 Respiratory rate 20 /min [facility] 03-05-2023 01:10-0400 SaO2% (BldA) [Mass fraction] 95 % [facility] 03-05-2023 01:10-0400 Systolic blood pressure 122 mm[Hg] [facility] 03-04-2023 22:43-0400 Body temperature 99.1 [degF] [facility] 03-04-2023 21:54-0400 Body height 172.72 cm [facility] 03-04-2023 21:54-0400 Body mass index (BMI) [Ratio] 42.3 kg/m2 [facility] 03-04-2023 21:54-0400 Body weight 126.1 kg [facility] 01-31-2023 10:00-0400 Diastolic blood pressure 75 mm[Hg] [facility] 01-31-2023 10:00-0400 Heart rate 78 /min [facility] 01-31-2023 10:00-0400 Respiratory rate 16 /min [facility] 01-31-2023 10:00-0400 SaO2% (BldA) [Mass fraction] 98 % [facility] 01-31-2023 10:00-0400 Systolic blood pressure 141 mm[Hg] [facility] 01-31-2023 07:56-0400 Body mass index (BMI) [Ratio] 42.8 kg/m2 [facility] 01-31-2023 07:56-0400 Body temperature 97.2 [degF] [facility] 01-31-2023 07:56-0400 Body weight 127.91 kg [facility] 10-25-2022 10:16-0500 Diastolic blood pressure 84 mm[Hg] Dr. Ginger Lugo Work Phone: 9(045)722-857011 [place] [address] 10-25-2022 10:16-0500 Heart rate 64 /min Dr. Ginger Lugo Work Phone: 1(775)909-159311 [place] [address] 10-25-2022 10:16-0500 Systolic blood pressure 140 mm[Hg] Dr. Ginger Lugo Work Phone: 7(486)080-024321 [place] [address] 10-25-2022 10:03-0500 Body temperature 97.5 [degF] Dr. Ginger Lugo Work Phone: 4(600)305-008121 [place] [address] 10-25-2022 10:03-0500 Respiratory rate 16 /min Dr. Ginger Lugo Work Phone: 6(111)034-601621 [place] [address] 10-25-2022 10:03-0500 SaO2% (BldA) [Mass fraction] 97 % Dr. Ginger Lugo Work Phone: 1(264)415-111321 [place] [address] 10-24-2022 22:44-0500 Inhaled oxygen flow rate 3 L/min Dr. Ginger Lugo Work Phone: 2(479)746-328421 [place] [address] 10-24-2022 14:56-0500 Body height 172.[address] Ginger Lugo Work Phone: [facility] 10-24-2022 14:56-0500 Body mass index (BMI) [Ratio] 44.7 kg/m2 Dr. Ginger Lugo Work Phone: [facility] 10-24-2022 14:56-0500 Body weight 133.[address] Ginger Lugo Work Phone: [facility] 10-13-2022 08:57-0500 Body mass index (BMI) [Ratio] 44.7 kg/m2 Dr. Ginger Lugo Work Phone: [facility] 10-13-2022 08:57-0500 Body weight 133.[address] Ginger Lugo Work Phone: [facility] 10-13-2022 08:57-0500 Diastolic blood pressure 81 mm[Hg] Dr. Gigner Lugo Work Phone: [facility] 10-13-2022 08:57-0500 Heart rate 84 /min Dr. Ginger Lugo Work Phone: [facility] 10-13-2022 08:57-0500 Respiratory rate 16 /min Dr. Ginger Lugo Work Phone: [facility] 10-13-2022 08:57-0500 Systolic blood pressure 149 mm[Hg] Dr. Ginger Lugo Work Phone: [facility] 10-08-2022 09:04-0500 Body height 166.4 cm Ginger Lugo MD Work Phone: [facility] 10-08-2022 09:04-0500 Body weight 133.36 kg Ginger Lugo MD Work Phone: [facility] 10-08-2022 09:04-0500 Diastolic blood pressure 90 mm[Hg] Ginger Lugo MD Work Phone: [facility] 10-08-2022 09:04-0500 Heart rate 70 /min Ginger Lugo MD Work Phone: [facility] 10-08-2022 09:04-0500 SaO2% (BldA) [Mass fraction] 95 % Ginger Lugo MD Work Phone: [facility] 10-08-2022 09:04-0500 Systolic blood pressure 136 mm[Hg] Ginger Lugo MD Work Phone: [facility] 10-07-2022 11:43-0500 Diastolic blood pressure 70 mm[Hg] Ginger Lugo Other Phone: [facility] 10-07-2022 11:43-0500 Heart rate 72 /min Ginger Lugo Other Phone: [facility] 10-07-2022 11:43-0500 Respiratory rate 20 /min Ginger Lugo Other Phone: [facility] 10-07-2022 11:43-0500 SaO2% (BldA) [Mass fraction] 98 % Ginger Lugo Other Phone: [facility] 10-07-2022 11:43-0500 Systolic blood pressure 125 mm[Hg] Ginger Lugo Other Phone: [facility] 10-07-2022 08:04-0500 Body height 172.7 cm Ginger Lugo Other Phone: [facility] 10-07-2022 08:04-0500 Body temperature 97.7 [degF] Ginger Lugo Other Phone: [facility] 10-07-2022 08:04-0500 Body weight 127.3 kg Ginger Lugo Other Phone: [facility] 06-27-2022 09:31-0400 Body height 166.4 cm NA Christine PA-C Work Phone: [facility] 06-27-2022 09:31-0400 Body weight 128.37 kg NA Christine PA-C Work Phone: [facility] 06-27-2022 09:31-0400 Diastolic blood pressure 70 mm[Hg] NA Christine PA-C Work Phone: [facility] 06-27-2022 09:31-0400 Heart rate 74 /min NA Christine PA-C Work Phone: [facility] 06-27-2022 09:31-0400 Respiratory rate 18 /min NA Christine PA-C Work Phone: [facility] 06-27-2022 09:31-0400 SaO2% (BldA) [Mass fraction] 94 % NA Christine PA-C Work Phone: [facility] 06-27-2022 09:31-0400 Systolic blood pressure 128 mm[Hg] NA Christine PA-C Work Phone: [facility] 12-09-2021 15:41-0400 Body weight 131.09 kg Ginger Lugo MD Work Phone: [facility] 12-09-2021 15:41-0400 Diastolic blood pressure 96 mm[Hg] Ginger Lugo MD Work Phone: [facility] 12-09-2021 15:41-0400 Heart rate 76 /min Ginger Lugo MD Work Phone: [facility] 12-09-2021 15:41-0400 Respiratory rate 16 /min Ginger Lugo MD Work Phone: [facility] 12-09-2021 15:41-0400 Systolic blood pressure 160 mm[Hg] Ginger Lugo MD Work Phone: [facility] Encounters Encounter Date Encounter Type Care Provider Facility Start: 05-26-2025 End: 05-26-2025 Erroneous Encounter Velia Marshall [employer] Work Phone: [facility] Comment on above: Arrived Start: 05-26-2025 End: 05-26-2025 ambulatory GINGER LUGO Facility:[facility] Start: 05-21-2025 End: 05-22-2025 Refill Ginger Lugo MD Work Phone: [facility] Comment on above: Refill Request [...] 01-06-2025 ambulatory Rocco Barragan MD Work Phone: [facility] Comment on above: S/P total knee arthr oplasty, left (Primary Dx) Start: 12-30-2024 End: 01-03-2025 ambulatory Rocco Barragan MD Work Phone: [facility] Comment on above: S/P total knee arthr oplasty, left (Primary Dx) Start: 12-28-2024 End: 01-01-2025 ambulatory Rocco Barragan MD Work Phone: [facility] Comment on above: S/P total knee arthr oplasty, left (Primary Dx) Start: 12-26-2024 End: 12-30-2024 ambulatory Rocco Barragan MD Work Phone: [facility] Comment on above: S/P total knee arthr oplasty, left (Primary Dx) Start: 12-13-2024 End: 2024 ambulatory Rocco Barragan MD Work Phone: [facility] Comment on above: S/P total knee arthr oplasty, left (Primary Dx); Loose left total knee arthroplasty (HCC) Start: 11-28-2024 End: 11-28-2024 Transcribe Orders Rocco Barragan MD Work Phone: [facility] Comment on above: Loose left total kne e arthroplasty (HCC) (Primary Dx) Start: 11-07-2024 End: 11-07-2024 ambulatory NUHA A SUPPAN Facility:[facility] Start: 11-07-2024 End: 11-07-2024 Office outpatient visit 15 minutes Nuha A Trishan [employer] Work Phone: [facility] [place] Comment on above: Hypoglycemia (Primar y Dx); Dizziness Start: 11-06-2024 End: 11-07-2024 Refill Ginger Lugo MD Work Phone: [facility] Comment on above: Refill Request Start: 10-26-2024 End: 10-26-2024 Refill Ginger Lugo MD Work Phone: [facility] [place] Comment on above: Refill Request Start: 10-24-2024 End: 10-24-2024 [facility] Start: 10-24-2024 End: 10-24-2024 Office outpatient visit 15 minutes Nuha Tegan Mosquera [employer] Work Phone: [facility] Comment on above: Osteoarthritis of le ft knee, unspecified osteoarthritis type (Primary Dx); Controlled type 2 diabetes mellitus without complication, without long-term current use of insulin (HCC) Start: 10-20-2024 End: 10-20-2024 ambulatory Ginger Lugo MD Work Phone: [facility] [place] Comment on above: nick lopes sent dr lugo a message but hes out of office Start: 10-14-2024 End: 10-14-2024 ambulatory Ginger Lugo Facility:[facility] Start: 10-10-2024 End: 10-11-2024 Refill Ginger Lugo MD Work Phone: [facility] Comment on above: Refill Request Start: 10-05-2024 End: 10-12-2024 Telephone encounter Torsten Aviles DO Work Phone: [facility] Comment on above: Forms Start: 10-04-2024 End: 10-04-2024 Patient encounter procedure Ginger Lugo MD Work Phone: [facility] [place] Comment on above: Osteoarthritis of le ft knee, unspecified osteoarthritis type (Primary Dx); Central sleep apnea; Essential hypertension, benign; Hyperlipidemia, unspecified hyperlipidemia type; Status post insertion of drug-eluting stent into left anterior descending (LAD) artery; 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; JOSIAH (obstructive sleep apnea); Hypothyroidism, unspecified type; Obesity, Class III, BMI 40-49.9 (morbid obesity) ([facility]); Controlled type 2 diabetes mellitus without complication, without long-term current use of insulin ([facility]) Start: 10-04-2024 End: 10-04-2024 ambulatory [facility] Facility:[facility] Start: 09-22-2024 End: 09-22-2024 Telephone encounter Torsten Aviles Work Phone: Radiology Comment on above: Imaging Start: 09-19-2024 End: 09-19-2024 Office outpatient new 45 minutes Jose Loo MD Work Phone: Orthopaedics Comment on above: Primary osteoarthrit is of left knee (Primary Dx) Start: 09-19-2024 End: 09-19-2024 ambulatory [facility] Facility:[facility] Start: 09-19-2024 End: 09-19-2024 Subsequent hospital visit by physician Xr [facility] Radiology Comment on above: Pain in both knees, unspecified chronicity [M25.561, M25.562] Start: 09-15-2024 End: 09-15-2024 Office outpatient visit 15 minutes Nuha Mosquera APRN.CNP Work Phone: [facility] Comment on above: Primary osteoarthrit is of left knee (Primary Dx) Start: 09-15-2024 End: 09-15-2024 Orders Only Jose Loo MD Work Phone: Orthopaedics Comment on above: Pain in both knees, unspecified chronicity (Primary Dx) Orders Start: 09-13-2024 End: 09-13-2024 Emergency department patient visit RIANNA NIDA [facility] Start: 09-09-2024 End: 09-09-2024 Telephone encounter Torsten Aviles DO Work Phone: Orthopaedics Comment on above: Referral Request Start: 08-26-2024 End: 08-26-2024 ambulatory GINGER LUGO Facility:[facility] Start: 08-26-2024 End: 08-26-2024 Patient [...] on above: Results Start: 08-09-2024 End: 08-09-2024 [facility] Giorgio KOWALSKIO Facility:[facility] Start: 08-09-2024 End: 08-09-2024 Patient encounter procedure Ginger Lugo MD Work Phone: [facility] [place] Comment on above: JOSIAH (obstructive sle ep apnea) (Primary Dx); Encounter for immunization; Hyperlipidemia, unspecified hyperlipidemia type; Essential hypertension, benign; Family history of heart disease; Folate deficiency; Hypothyroidism, unspecified type; Controlled type 2 diabetes mellitus without complication, without long-term current use of insulin (HCC); Screening for colon cancer Start: 08-05-2024 End: 08-16-2024 Telephone encounter Torsten Aviles Work Phone: [facility] Comment on above: Insurance Authorizat ion (Prior Auth Delayed: Additional Info Needed) Start: 08-03-2024 End: 08-03-2024 ambulatory TORSTEN AVILES Facility:[facility] Start: 08-03-2024 End: 08-03-2024 Patient [...] Patient Update Start: 06-29-2024 End: 06-29-2024 ambulatory [facility] Start: 06-24-2024 End: 06-24-2024 Telephone encounter Torsten Aviles DO Work Phone: Orthopaedics Comment on above: FMLA Paperwork Start: 06-17-2024 End: 06-17-2024 ambulatory [facility] Start: 06-16-2024 End: 06-16-2024 Telephone encounter Torsten Aviles DO Work Phone: Orthopaedics Comment on above: Work Excuse Start: 06-15-2024 End: 06-15-2024 ambulatory SALEEM Light [facility] Start: 06-09-2024 End: 06-09-2024 ambulatory GINGER ALEGRIA [facility] Start: 05-30-2024 End: 06-01-2024 Telephone encounter Torsten [...] Telephone encounter Torsten Aviles DO Work Phone: [facility] Comment on above: Results Start: 05-26-2024 End: 05-26-2024 Subsequent hospital visit by physician [facility] [employer] [address] (Lg Bore/1.5t) Radiology Comment on above: Chronic pain of left knee [M25.562, G89.29] Start: 05-22-2024 End: 05-23-2024 Refill Ginger Lugo MD Work Phone: [facility] [place] Comment on above: Refill Request Start: 05-16-2024 End: 05-17-2024 ambulatory Torsten Aviles V DO Work Phone: [facility] Start: 05-16-2024 End: 05-17-2024 Patient encounter procedure Torsten Aviles DO Work Phone: [facility] [place] Comment on above: Appointment for mri Start: 05-13-2024 End: 05-13-2024 Orders Only Torsten Aviles DO Work Phone: Orthopaedics Comment on above: Chronic pain of left knee (Primary Dx) Start: 05-06-2024 End: 05-06-2024 Patient encounter procedure Torsten Aviles DO Work Phone: [facility] [place] Comment on above: Medial knee pain, le ft (Primary Dx) Start: 05-04-2024 End: 05-04-2024 Orders Only Torsten Aviles DO Work Phone: Orthopaedics Comment on above: Acute pain of left k nee (Primary Dx) Knee pain, unspecifi ed chronicity, unspecified laterality (Primary Dx) Start: 05-02-2024 End: 05-03-2024 Emergency department patient visit [facility] Facility:[facility] Start: 05-02-2024 End: 05-04-2024 ambulatory Torsten Aviles DO Work Phone: [facility] [place] Comment on above: Knee pain Start: 04-14-2024 End: 04-14-2024 Patient encounter procedure Sam Beasley Work Phone: Podiatry Comment on above: Closed non-physeal f racture of phalanx of right great toe, unspecified phalanx, initial encounter (Primary Dx) Start: 04-14-2024 End: 04-14-2024 Subsequent hospital visit by physician Ulysses [facility] [place] Work Phone: Radiology Comment on above: Open wound of toe, i nitial encounter [S91.109A] Start: 04-06-2024 End: 04-06-2024 Patient encounter procedure Torsten Aviles DO Work Phone: [facility] Comment on above: Acute pain of left k nee; Pain of left lower extremity Start: 04-06-2024 Telephone encounter Ginger Lugo MD Work Phone: [facility] Comment on above: Forms (Dwight celeste forms ) Start: 04-04-2024 Telephone encounter Ginger Lugo MD Work Phone: [facility] Comment on above: Results Start: 04-01-2024 Telephone encounter Sam King Work Phone: Podiatry Comment on above: Results Start: 04-01-2024 End: 04-01-2024 Nursing evaluation of patient and report Nurse/Testrastephanie [facility] Work Phone: Podiatry Comment on above: Closed nondisplaced fracture of distal phalanx of right great toe, initial encounter (Primary Dx) Start: 03-30-2024 Telephone encounter Sam King Work Phone: Podiatry Start: 03-29-2024 ambulatory GINGER LUGO Facility :[facility] Start: 03-29-2024 End: 03-29-2024 Subsequent hospital visit by physician [facility] Comment on above: Acute pain of left k nee [M25.562] Start: 03-28-2024 End: 03-28-2024 Subsequent hospital visit by physician Xr [facility] [place] Work Phone: Radiology Comment on above: Acute pain of left k nee [M25.562] Start: 03-28-2024 End: 03-28-2024 Subsequent hospital visit by physician Xr [facility] [place] Work Phone: Radiology Comment on above: Ingrowing toenail wi th infection [L60.0] Start: 03-28-2024 End: 03-28-2024 Patient encounter procedure Ginger Lugo MD Work Phone: [facility] Comment on above: Essential hypertensi on, benign [...] 03-14-2024 ambulatory Ginger Lugo MD Work Phone: [facility] [place] Comment on above: Toe swollen and infe cted Start: 02-10-2024 Refill Ginger Lugo MD Work Phone: [facility] [place] Comment on above: Refill Request Start: 01-29-2024 End: 01-29-2024 ambulatory Nurse Intm/Famp Triage [facility] Work Phone: Nurse Phone Triage Comment on above: Nurse Triage Call; S ore Throat Start: 01-20-2024 Refill Ginger Lugo MD Work Phone: [facility] [place] Comment on above: Refill Request Start: 01-16-2024 End: 01-16-2024 Emergency department patient visit GINGER LUGO [facility] Start: 12-07-2023 Refill Ginger Lugo MD Work Phone: [facility] [place] Comment on above: Refill Request Start: 10-30-2023 End: 10-30-2023 Patient encounter procedure Ginger Lugo MD Work Phone: [facility] [place] Comment on above: C. difficile colitis (Primary Dx) Start: 10-29-2023 End: 10-29-2023 ambulatory ABILIO GONG [facility] Amb[facility] Start: 10-29-2023 End: 10-29-2023 Office outpatient new 45 minutes Abilio Gong [facility] Work Phone: [facility] Comment on above: Colitis (Primary Dx) ; Diarrhea, unspecified type Start: 10-27-2023 Refill Ginger Lugo MD Work Phone: [facility] Comment on above: Refill Request Start: 10-26-2023 Telephone encounter Ginger Lugo MD Work Phone: [facility] Comment on above: Results Start: 10-24-2023 End: 10-24-2023 Patient encounter procedure Ginger Lugo MD Work Phone: [facility] Comment on above: C. difficile colitis (Primary Dx) Start: 10-21-2023 ambulatory Nuha A S uppan [employer] Work Phone: [facility] Comment on above: Stomach pains and di aherria Diarrhea; Abdominal Pain Start: 10-21-2023 Telephone encounter Ginger Lugo MD Work Phone: [facility] Comment on above: Results Start: 10-16-2023 End: 10-16-2023 Office outpatient visit 25 minutes Nuha Mosquera [employer] Work Phone: [facility] Comment on above: Chest pain, unspecif ied type (Primary Dx); C. difficile colitis Start: 10-09-2023 Non-patient / Non-visit Dr. Tomás Lugo Work Phone: [facility] Work Phone: Start: 10-08-2023 Non-patient / Non-visit Dr. Tomsá Lugo Work Phone: [facility] Start: 10-08-2023 Telephone encounter Ginger Luog MD Work Phone: [facility] Comment on above: Results Start: 10-08-2023 Non-patient / Non-visit Dr. Tomás Lugo Work Phone: [facility] Work Phone: Start: 10-07-2023 Non-patient / Non-visit Dr. Tomás Lugo Work Phone: [facility] Start: 10-07-2023 End: 10-09-2023 Evaluation and management of inpatient [facility] Work Phone: Start: 10-07-2023 End: 10-09-[address] Ginger Lugo Work Phone: [facility] Work Phone: Start: 10-02-2023 Telephone encounter Ginger Lugo MD Work Phone: [facility] Start: 09-23-2023 End: 09-23-2023 Emergency department patient visit GINGER LUGO [facility] Start: 09-23-2023 End: 09-23-2023 Subsequent hospital visit by physician Irving Hudsonv[facility] Comment on above: Arrived Start: 09-22-2023 End: 09-22-2023 Emergency department patient visit Ismael Durham DO Work Phone: [facility] Comment on above: Hyperglycemia (Prima ry Dx); Abdominal pain, unspecified abdominal location; Lactic acidosis Start: 07-20-2023 Refill [place] Son on PA-C Work Phone: [facility] Comment on above: Refill Request Start: 07-03-2023 Refill Ginger Lugo MD Work Phone: [facility] Comment on above: Refill Request Start: 05-06-2023 ambulatory LEBRON CROSS Facility:[id number] Start: 04-22-2023 ambulatory LEBRON CROSS Facility:[id number] Start: 04-22-2023 FUV, Provider: Lebron Cross II, Status: Markie, Time: 3:45 PM Ginger Lugo Work Phone: [facility] Work Phone: Start: 04-22-2023 Office outpatient vi sit 15 minutes Ginger Lugo Work Phone: [facility] Work Phone: Start: 04-20-2023 AUDIT Ginger Lugo Work Phone: [facility] Work Phone: Start: 08-10-2023 Office outpatient ne w 45 minutes Ginger Lugo Work Phone: [facility] 232 DO Work Phone: Start: 04-16-2023 ambulatory LEBRON CROSS Facility:[id number] Start: 03-30-2023 End: 03-30-2023 Patient encounter procedure Ginger Lugo MD Work Phone: [facility] Comment on above: Sepsis due to Escher [...] Facility:[id number] Start: 03-23-[address] Ginger sanches [employer] Facility:[id number] Start: 03-22-2023 Non-patient / Non-visit Dr. Tomás Lugo Work Phone: [facility] Work Phone: Start: 03-21-2023 Non-patient / Non-visit Dr. Tomás Lugo Work Phone: [facility] Work Phone: Start: 03-20-2023 Non-patient / Non-visit Dr. Tomás Lugo Work Phone: [facility] Work Phone: Start: 03-19-2023 Non-patient / Non-visit Dr. Tomás Lugo Work Phone: [facility] Work Phone: Start: 03-18-2023 End: 03-22-2023 Evaluation and management of inpatient [facility] Work Phone: Start: 03-17-2023 Telephone encounter Ginger Lugo MD Work Phone: [facility] Comment on above: Appointment Start: 03-04-2023 End: 03-05-2023 Emergency department patient visit [facility] Work Phone: Start: 01-31-2023 End: 01-31-2023 Emergency department patient visit [facility] Work Phone: Start: 11-22-2022 Refill [place] Son on PA-C Work Phone: [facility] Comment on above: Refill Request Start: 11-17-2022 ambulatory Ginger Lugo MD Work Phone: [facility] Comment on above: 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 Tomás Lugo Work Phone: [facility] Start: 10-24-2022 End: 10-25-2022 Evaluation and management of inpatient Dr. Ginger Lugo Work Phone: [facility] Start: 10-24-2022 End: 10-25-[address] Ginger Lugo Work Phone: [facility] Work Phone: Start: 10-22-2022 End: 10-22-[address] Ginger Lugo Work Phone: [facility] Work Phone: Start: 10-22-2022 End: 10-22-[address] Ginger Lugo Work Phone: [facility] Start: 10-22-2022 Non-patient / Non-visit Dr. Tomás Lugo Work Phone: [facility] Start: 10-13-2022 End: 10-13-[address] Ginger Lugo Work Phone: [facility] Start: 10-09-2022 Non-patient / Non-visit Dr. Tomás Lugo Work Phone: [facility] Start: 10-08-2022 End: 10-08-2022 Patient encounter procedure Ginger Lugo MD Work Phone: [facility] Comment on above: Chest pain, unspecif ied type (Primary Dx); Essential hypertension, benign; Controlled type 2 diabetes mellitus without complication, without long-term current use of insulin (HCC); Hypothyroidism, acquired; Syncope, unspecified syncope type; Family history of heart disease Start: 10-07-2022 End: 10-07-2022 Emergency department patient visit [facility]ont [facility] Emergency 13 Start: 10-06-2022 Nate ahuja PA-C Work Phone: [facility] Comment on above: Refill Request Start: 08-28-2022 End: 08-28-2022 ambulatory [place] Christine PA-C Work Phone: [facility] [place] Comment on above: Acute upper respirat ory infection (Primary Dx) Start: 08-28-2022 End: 08-28-2022 Telemedicine consultation with patient [place] Christine PA-C Work Phone: [facility] [place] Start: 07-07-2022 ambulatory [place] ahuja PA-C Work Phone: [facility] Comment on above: Labs Start: 06-27-2022 End: 06-27-2022 Patient encounter procedure [place] Christine PA-C Work Phone: [facility] [place] Comment on above: Wellness examination [...] encounter status [place] Christine PA-C Work Phone: [facility] [place] Start: 06-17-2022 End: 06-17-2022 Patient encounter procedure [place] Christine PA-C Work Phone: [facility] [place] Comment on above: Wellness examination [...] status M Farhat Christine PA-C Work Phone: [facility] [place] Start: 06-12-2022 Refill Ginger Lugo MD Work Phone: [facility] Comment on above: Refill Request Orders (C-Pap suppli es: chin strap and mask) Start: 05-15-2022 Patient encounter procedure Sabine Garza OTR/L Work Phone: [facility] Work Phone: Start: 04-23-2022 ambulatory Provider Pending Facili ty:[id number] Start: 04-23-2022 [id number], Provider : Elvira Martin, Status: Pen, Time: 8:00 AM Elvira Martin OTR/L Work Phone: [facility] Work Phone: Start: 04-22-2022 Patient encounter procedure Elvira Martin OTR/L Work Phone: [facility] Work Phone: Start: 04-22-2022 ambulatory Provider Pending Facili ty:[id number] Start: 04-17-2022 ambulatory Provider Pending Facili ty:[id number] Start: 04-17-2022 Patient encounter procedure Sabine Garza OTR/L Work Phone: [facility] Work Phone: Start: 04-14-2022 Patient encounter procedure Marielos Law CARROLL/L Work Phone: [facility] Work Phone: Start: 04-14-2022 ambulatory Provider Pending Facili ty:[phone] Start: 04-08-2022 ambulatory Provider Pending Facili ty:[id number] Start: 04-08-2022 Patient encounter procedure Sabine Garza OTR/L Work Phone: [facility] Work Phone: Start: 04-08-2022 End: 04-12-2022 ambulatory REGGIE BRAR [facility] Start: 04-03-2022 Patient encounter procedure Marielos CARROLL/Dolores Work Phone: [facility] Work Phone: Start: 04-03-2022 ambulatory Provider Pending Facili ty:[id number] Start: 03-31-2022 Patient encounter procedure Marielos CARROLL/Dolores Work Phone: [facility] Work Phone: Start: 02-13-2022 End: 02-17-2022 [facility] Start: 02-06-2022 End: 02-10-2022 [facility] Start: 01-30-2022 End: 02-03-2022 ambulatory REGGIE BRAR [facility] Start: 01-27-2022 Telephone encounter Ginger Lugo MD Work Phone: [facility] [place] Comment on above: Future Appointment ( ER/WC) Start: 12-16-2021 ambulatory Ginger Lugo MD Work Phone: [facility] [place] Comment on above: Work release Start: 12-10-2021 Telephone encounter Ginger Lugo MD Work Phone: [facility] [place] Comment on above: Results Start: 12-09-2021 ambulatory [place] ahuja PA-C Work Phone: [facility] [place] Start: 12-09-2021 End: 12-09-2021 Patient encounter procedure [place] Christine PA-C Work Phone: [facility] [place] Comment on above: Appointment for guerrero rrow Prepatellar bursitis of right knee (Primary Dx); Hypothyroidism, unspecified type; Controlled type 2 diabetes mellitus without complication, without long-term current use of insulin (HCC); Hyperlipidemia, unspecified hyperlipidemia type; Essential hypertension, benign Start: 12-08-2021 ambulatory [place] ahuja PA-C Work Phone: [facility] Comment on above: Knee problem Start: 12-03-2021 Telephone encounter [place] Dougherty Emmett VALENTIN-Davide Work Phone: [facility] Comment on above: Opened In Error Start: 12-03-2021 End: 12-03-2021 Subsequent hospital visit by physician Xr [facility] [place] Work Phone: Radiology Comment on above: Chronic left shoulde r pain [M25.512, G89.29] Start: 11-29-2021 Refill Ginger Lugo MD Work Phone: [facility] Comment on above: Refill Request Start: 10-16-2020 End: 10-16-2020 Subsequent hospital visit by physician Xr [facility] [place] Work Phone: Radiology Comment on above: Suspected COVID-19 v irus infection [Z20.822] Start: 05-03-2018 End: 05-03-2018 Patient encounter Ellie Hernandez Facility:[facility] Start: 04-23-2018 Patient encounter Ellie Luis Antonio cates Facility:[facility] Start: 04-23-2018 End: 04-23-2018 Patient encounter Ellie Luis Antonio Hernandez Work Phone: [facility] Start: 01-02-2009 End: 12-14-2013 Patient encounter status Ginger Lugo MD Work Phone: [facility] Procedures Date Procedure Procedure Detail Performing Clinician [...] [Units/volume] in Serum or Plasma Velia Marshall TEA [employer] Work Phone: Start: 03-29-2024 Dup-scan xtr veins [...] lds trcg only w/o i&r Ximenaponcho Crespoderback TEA [employer] Work Phone: Start: 09-22-2023 End: 09-22-2023 Assay of lactate Ximena C Bilderback TEA [employer] Work Phone: Start: 09-22-2023 End: 09-22-2023 Assay of lactate Ximena C Bilderback TEA [employer] Work Phone: Start: 09-22-2023 Urnls dip stick/tablet rgnt auto w/o microscopy Ximena C Bilderback TEA [employer] Work Phone: Start: 09-22-2023 Ct abdomen & pelvis w/contrast material Ximena C Bilderback TEA [employer] Work Phone: Start: 09-22-2023 Troponin I.cardiac panel - Serum or Plasma by High sensitivity method Ismael Durham DO Work Phone: Start: 09-22-2023 End: 09-22-2023 Comprehensive metabolic panel Ximena Augustine Michelle TEA [employer] Work Phone: Start: 09-22-2023 Gases blood ph direct talita xcpt pulse oximitry Ximena Augustine Michelle TEA [employer] Work Phone: Start: 09-22-2023 Glucose quantitative blood [...] Radiologic exam chest 2 views Jorge Patricia TEA BLENDER.[employer] Work Phone: Coronary artery bypa ss graft [...] DTaP/Tdap/Td Vaccines (3 - Td or Tdap) [facility] Start: 06-27-2032 Tetanus vaccination Tetanus: Every 1 0yrs [facility] Start: 06-27-2032 Urine microalbumin profile [facility] Start: 08-25-2027 Screening for malign ant neoplasm of colon [facility] Start: 08-09-2027 Diabetes mellitus screening Diabetes Screening [facility] Start: 09-22-2026 Diabetes mellitus screening Diabetes Screening [facility] Start: 06-10-2026 TWO PNEUMOVAX 5 YEAR S APART PRIOR TO AGE 65 (#2) TWO PNEUMOVAX 5 YEARS APART PRIOR TO AGE 65 (#2) [facility] Start: 11-07-2025 Annual PCP Team Supervisor Research [place] Disease Visit Annual PCP Team Chronic Disease Visit [facility] Start: 10-24-2025 Annual PCP Team Supervisor Research [place] Disease Visit Annual PCP Team Chronic Disease Visit [facility] Start: 10-04-2025 Annual PCP Team Supervisor Research [place] Disease Visit Annual PCP Team Chronic Disease Visit [facility] Start: 10-04-2025 BP Controlled (<130/80) BP Controlle d (<130/80) [facility] Start: 10-04-2025 Pneumococcal Vaccine : 50+ (2 of 2 - PCV) Pneumococcal Vaccine: 50+ (2 of 2 - PCV) [facility] Comment on above: Postponed from 06/27 (Declined at this time) Start: 09-15-2025 Annual PCP Team Supervisor Research [place] Disease Visit Annual PCP Team Chronic Disease Visit [facility] Start: 08-09-2025 Annual PCP Team Supervisor Research [place] Disease Visit Annual PCP Team Chronic Disease Visit [facility] Start: 08-09-2025 Covid-19 Vaccine ( season) Covid-19 Vaccine () [facility] Comment on above: Postponed from 05/08 (Declined at this time) Start: 08-09-2025 Shingrix Vaccine (2 of 2) Shingrix Vaccine (2 of 2) [facility] Comment on above: Postponed from 08/22 (Declined at this time) Start: 05-26-2025 End: 05-26-2025 Patient encounter procedure 05/26/2025 3:00 PM EDT Office Visit [facility] [place] [address] [place] [address] Torsten Aviles V, DO [address] [place], [place] [id number] LM to update insurance [facility] [place] Comment on above: LM to update insuran ce Start: 05-08-2025 COVID-19 Vaccine ( season) COVID-19 Vaccine () [facility] Start: 05-08-2025 Influenza vaccination Influenza Vacc ine (#1) [facility] Start: 05-04-2025 Annual PCP Team Supervisor Research [place] Disease Visit Annual PCP Team Chronic Disease Visit [facility] Start: 04-01-2025 Hepatitis B screening Urine Albumin:Creatinine Ratio [facility] Start: 04-01-2025 Hepatitis B surface antibody level LDL Cholesterol [facility] Start: 04-01-2025 Thyroid stimulating hormone measurement TSH Level [facility] Start: 03-28-2025 Annual PCP Team Supervisor Research [place] Disease Visit Annual PCP Team Chronic Disease Visit [facility] Start: 03-28-2025 Covid-19 Vaccine ( season) Covid-19 Vaccine ( season) [facility] Comment on above: Postponed from 05/08 (Declined at this time) Start: 03-28-2025 Diabetic foot examination Diabetic Foot Exam [facility] Start: 03-28-2025 Hepatitis B Vaccine (1 of 3 - 19+ 3-dose series) Hepatitis B Vaccine (1 of 3 - 19+ 3-dose series) [facility] Comment on above: Postponed from 12/17 (Declined at this time) Start: 03-28-2025 Pneumococcal vaccination Pneum ococcal Vaccine (2 of 2 - PCV) [facility] Comment on above: Postponed from 06/27 (Declined at this time) Start: 02-08-2025 End: 02-08-2025 Patient encounter procedure 02/08/2025 10:00 AM EDT Office Visit [facility] [place] [address] [place] [address] Ginger Lugo MD [address] [place] [address] 6 month follow up [facility] Comment on above: 6 month follow up Start: 02-07-2025 Hemoglobin A1c measurement [facility] Start: 01-06-2025 End: 01-06-2025 ambulatory 01/06/2025 10:45 AM EDT Treatment [facility] [address] [place] [address] Rocco Barragan MD [address] [place] [address] Teja Lopez PTA [facility] Start: 01-04-2025 End: 01-04-2025 ambulatory 01/04/2025 10:45 AM EDT Treatment [facility] [address] [place] [address] Rocco Barragan MD [address] [place] [address] Aly Winchester, PT [facility] Start: 01-02-2025 End: 01-02-2025 ambulatory 01/02/2025 10:45 AM EDT Treatment [facility] [address] [place] [address] Rocco Barragan MD [address] [place] [address] Aly Winchester, PT [facility] Start: 12-30-2024 End: 12-30-2024 ambulatory [facility] Start: 12-28-2024 End: 12-28-2024 ambulatory [facility] Start: 12-26-2024 End: 12-26-2024 ambulatory 12/26/2024 10:45 AM EDT Treatment [facility] [address] [place] [address] Rocco Barragan MD [address] [place] [address] Teja Lopez EYEDOTTER [facility] Start: 12-23-2024 End: 12-23-2024 ambulatory 12/23/2024 11:30 AM EDT Treatment [facility] [address] [place] [address] Rocco Barragan MD [address] [place] [address] Joana Powers EYEDOTTER [facility] Start: 12-21-2024 End: 12-21-2024 ambulatory 12/21/2024 10:45 AM EDT Treatment [facility] [address] [place] [address] Rocco Barragan MD [address] [place] [address] Teja Lopez PTA [facility] Start: 12-19-2024 End: 12-19-2024 ambulatory 12/19/2024 10:45 AM EDT Treatment [facility] [address] [place] [address] Rocco Barragan MD [address] [place] [address] Teja Lopez, YAAKOV Discharge Disposition: Home [facility] Start: 12-15-2024 End: 12-15-2024 ambulatory 12/15/2024 10:45 AM EDT Treatment [facility] [address] [place] [address] Rocco Barragan MD [address] [place] [address] Aly Winchester, PT Discharge Disposition: Home [facility] Start: 11-30-2024 End: 11-30-2024 Patient encounter procedure 11/30/2024 9:00 AM EDT Office Visit Orthopaedics [address] [address] Jose Loo MD [address] [place] [address] 2-3 month follow up - Lft Knee Orthopaedics Comment on above: 2-3 month follow up - Lft Knee Start: 11-29-2024 End: 11-29-2024 Patient encounter procedure 11/29/2024 2:20 PM EDT Office Visit [facility] [place] [address] [place] [id number] Ginger Lugo MD [address] [place] [address] follow up. Knee replacement surgery [facility] [place] Comment on above: follow up. Knee repl acement surgery Start: 11-08-2024 End: 02-07-2025 Hemoglobin A1c in Blood HEMOGLOBIN A1C Lab Routine Controlled type 2 diabetes mellitus without complication, without long-term current use of insulin (HCC) Expected: 11/08/2024, Expires: 02/07/2025 [facility] Work Phone: Comment on above: Expected: 11/08/2024 , Expires: 02/07/2025 Start: 11-07-2024 End: 11-07-2024 Follow-up encounter 11/07/2024 11:20 AM EST [facility] [place] [address] [facility] [place] [address] Nuha Mosquera APRN.[employer] [address] [facility] [place] [id number] 2 week dizziness follow up [facility] [place] Comment on above: 2 week dizziness fol low up Start: 10-30-2024 Annual PCP Team Supervisor Research [place] Disease Visit Annual PCP Team Chronic Disease Visit [facility] Start: 10-24-2024 Annual PCP Team Supervisor Research [place] Disease Visit Annual PCP Team Chronic Disease Visit [facility] Start: 10-24-2024 BP Controlled (<130/80) BP Controlle d (<130/80) [facility] Start: 10-24-2024 End: 10-24-2024 ambulatory 10/24/2024 9:40 AM EST [facility] [address] [facility] [place] [address] Nuha Mosquera APRN.[employer] [address] [facility] [place] [address] dizziness and bloodsugar dropping [facility] [place] Comment on above: dizziness and bloods ugar dropping Start: 10-07-2024 Annual PCP Team Supervisor Research [place] Disease Visit Annual PCP Team Chronic Disease Visit [facility] Start: 10-02-2024 Hemoglobin A1c measurement HbA1C [facility] Start: 09-30-2024 End: 09-30-2024 Patient encounter procedure 09/30/2024 9:40 AM EST Office Visit Family [facility] [place] [address] [facility] [place] [address] Ginger Lugo MD [address] [facility] [place] [address] 6 mo f/u [facility] [place] Comment on above: 6 mo f/u Start: 09-19-2024 End: 09-19-2024 Patient encounter procedure Radiology Comment on above: L knee & leg length. Lft Knee Replmnt Con sul Epic Images Start: 09-10-2024 End: 12-10-2024 CBC panel - Blood by Automated count COMPLETE BLOOD COUNT Lab Routine Leukocytosis, unspecified type Expected: 09/10/2024, Expires: 12/10/2024 [facility] Comment on above: Expected: 09/10/2024 , Expires: 12/10/2024 Start: 08-26-2024 End: 08-26-2024 Patient encounter procedure 08/26/2024 3:30 PM EST Office Visit Family [facility] [address] [place] [address] Torsten Aviles V, DO [address] [place] [address] Durolane injection left knee - authorized [facility] [place] Comment on above: Durolane injection l eft knee - authorized Start: 08-09-2024 End: 11-08-2024 Hemoglobin A1c in Blood [facility] Work Phone: Comment on above: Expected: 08/09/2024 , Expires: 11/08/2024 Start: 08-03-2024 End: 08-03-2024 Patient encounter procedure 08/03/2024 2:30 PM EST Office Visit [facility] [address] [place] [address] Torsten Aviles V, DO [address] [place] [address] continued left knee pain [facility] [place] Comment on above: continued left knee pain Start: 06-06-2024 Urine screening for protein eGFR Diabetes [facility] Start: 05-26-2024 End: 05-26-2024 Patient encounter procedure 05/26/2024 8:00 AM EDT Appointment Radiology [address] [place], [place] [id number] Chronic pain of left knee [M25.562, G89.29] Radiology Comment on above: Chronic pain of left knee [M25.562, G89.29] Start: 05-08-2024 Covid-19 Vaccine () Covid-19 Vaccine () [facility] Start: 05-08-2024 Covid-19 Vaccine ( season) Covid-19 Vaccine ( season) [facility] Start: 05-08-2024 Influenza vaccination Influenza Vacc ine (#1) [facility] Start: 05-06-2024 End: 05-06-2024 Patient encounter procedure 05/06/2024 2:30 PM EDT Office Visit [facility] [address] [place] [place] [address] Torsten Aviles V, DO [address] [facility] [address] left knee pain f/u [facility] Comment on above: left knee pain f/u Start: 04-16-2024 Prostate specific antigen measurement PSA Prostate Cancer Screening [facility] Start: 04-14-2024 End: 04-14-2024 Patient encounter procedure 04/14/2024 11:45 AM EDT Office Visit Podiatry [address] [place] [address] Sam Beasley [address] [place] [place] [address] 2 week follow up ingrown R great toe Podiatry Comment on above: 2 week follow up deanne ching R great toe Start: 04-06-2024 End: 04-06-2024 Patient encounter procedure [facility] Comment on above: Acute pain of left k nee [M25.562]; Pain of left lower extremity [M79.605] Start: 04-04-2024 End: 07-04-2024 CBC W Auto Differential panel - Blood COMPLETE BLOOD COUNT AND DIFFERENTIAL Lab Routine Folate deficiency Expected: 04/04/2024, Expires: 07/04/2024 [facility] Comment on above: Expected: 04/04/2024 , Expires: 07/04/2024 Start: 04-04-2024 End: 07-04-2024 Folate [Mass/volume] in Serum or Plasma FOLATE, SERUM Lab Routine Folate deficiency Expected: 04/04/2024, Expires: 07/04/2024 [facility] Work Phone: Comment on above: Expected: 04/04/2024 , Expires: 07/04/2024 Start: 04-04-2024 End: 04-04-2024 Patient encounter procedure General Surgery Comment on above: Screening for colon cancer [Z12.11] Screening for colon cancer Start: 03-30-2024 ANNUAL PCP TEAM DISEASE CASE MANAGER RN MANISHA DISEASE VISIT ANNUAL PCP TEAM CHRONIC DISEASE VISIT [facility] Start: 03-29-2024 End: 03-29-2024 Patient encounter procedure 03/29/2024 4:00 PM EDT Appointment [facility] [address] [place] [address] Acute pain of left knee [M25.562]; Edema [...] of insulin (HCC) Expected: 03/28/2024, Expires: 06/27/2024 [facility] Comment on above: Expected: 03/28/2024 , Expires: 06/27/2024 Start: 03-28-2024 End: 06-27-2024 Comprehensive metabolic 2000 panel - Serum or Plasma COMPREHENSIVE METABOLIC PANEL Lab Routine Controlled type 2 diabetes mellitus without complication, without long-term current use of insulin (HCC) Expected: 03/28/2024, Expires: 06/27/2024 [facility] Comment on above: Expected: 03/28/2024 , Expires: 06/27/2024 Start: 03-28-2024 End: 06-27-2024 Hemoglobin A1c in Blood HEMOGLOBIN A1C Lab Routine Controlled type 2 diabetes mellitus without complication, without long-term current use of insulin (HCC) Expected: 03/28/2024, Expires: 06/27/2024 [facility] Comment on above: Expected: 03/28/2024 , Expires: 06/27/2024 Start: 03-28-2024 End: 06-27-2024 Lipid 1996 panel - Serum or Plasma LIPID PANEL BASIC Lab Routine Controlled type 2 diabetes mellitus without complication, without long-term current use of insulin (HCC) Expected: 03/28/2024, Expires: 06/27/2024 [facility] Comment on above: Expected: 03/28/2024 , Expires: 06/27/2024 Start: 03-28-2024 End: 06-27-2024 Microalbumin/Creatinine [Mass Ratio] in Urine ALBUMIN/CREATININE RATIO, URINE Lab Routine Controlled type 2 diabetes mellitus without complication, without long-term current use of insulin (HCC) Expected: 03/28/2024, Expires: 06/27/2024 [facility] Comment on above: Expected: 03/28/2024 , Expires: 06/27/2024 Start: 03-28-2024 End: 06-27-2024 PSA/PROSTATE SPECIFIC ANTIGEN SCREENING PSA/PROSTATE SPECIFIC ANTIGEN SCREENING Lab Routine Screening for prostate cancer Expected: 03/28/2024, Expires: 06/27/2024 [facility] Comment on above: Expected: 03/28/2024 , Expires: 06/27/2024 Start: 03-28-2024 End: 06-27-2024 Thyrotropin [Units/volume] in Serum or Plasma THYROID STIMULATING HORMONE Lab Routine Hypothyroidism, unspecified type Expected: 03/28/2024, Expires: 06/27/2024 [facility] Work Phone: Comment on above: Expected: 03/28/2024 , Expires: 06/27/2024 Start: 03-28-2024 End: 03-28-2024 Patient encounter procedure 03/28/2024 9:00 AM EDT Office Visit Podiatry [address] [place] [address] Sam [place] [address] [place] [place] [id number] right foot ingrown toenail Podiatry Comment on above: right foot ingrown t oenail Start: 03-25-2024 Hemoglobin A1c measurement A1C [facility] Start: 03-17-2024 ANNUAL PCP TEAM DISEASE CASE MANAGER RN MANISHA DISEASE VISIT ANNUAL PCP TEAM CHRONIC DISEASE VISIT [facility] Start: 01-23-2024 Hepatitis B surface antibody level LDL CHOLESTEROL [facility] Start: 12-25-2023 Hemoglobin A1c measurement HbA1C [facility] Start: 11-30-2023 End: 11-30-2023 Admission to same day surgery center 11/30/2023 9:50 AM EDT - 11/30/2023 10:20 AM EDT Surgery [facility] [address] [place] [id number] Alexander Navarro MD [address] [place] [address] COLONOSCOPY [facility] Comment on above: COLONOSCOPY Start: 11-30-2023 End: 11-30-2023 Colonoscopy COLONOSCOPY Colitis 11/30/2023 9:50 AM EDT [facility] Start: 11-30-2023 Subsequent hospital visit by physician 11/30/2023 9:50 AM EDT Hospital Encounter [facility] [address] [place] [address] Alexander Navarro MD [address] [place] [address] [facility] Start: 10-30-2023 ANNUAL PCP TEAM DISEASE CASE MANAGER RN MANISHA DISEASE VISIT ANNUAL PCP TEAM CHRONIC DISEASE VISIT [facility] Start: 10-26-2023 End: 10-26-2024 CBC W Auto Differential panel - Blood CBC + DIFF Lab Routine Anemia, unspecified type Expected: 10/26/2023, Expires: 10/26/2024 [facility] Work Phone: Comment on above: Expected: 10/26/2023 , Expires: 10/26/2024 Start: 10-26-2023 End: 10-26-2024 Cobalamin (Vitamin B12) [Mass/volume] in Serum or Plasma VITAMIN B12 BLOOD Lab Routine Anemia, unspecified type Expected: 10/26/2023, Expires: 10/26/2024 [facility] Work Phone: Comment on above: Expected: 10/26/2023 , Expires: 10/26/2024 Start: 10-26-2023 End: 10-26-2024 Ferritin [Mass/volume] in Serum or Plasma FERRITIN BLD Lab Routine Anemia, unspecified type Expected: 10/26/2023, Expires: 10/26/2024 [facility] Work Phone: Comment on above: Expected: 10/26/2023 , Expires: 10/26/2024 Start: 10-26-2023 End: 10-26-2024 Folate [Mass/volume] in Serum or Plasma FOLATE SERUM Lab Routine Anemia, unspecified type Expected: 10/26/2023, Expires: 10/26/2024 [facility] Work Phone: Comment on above: Expected: 10/26/2023 , Expires: 10/26/2024 Start: 10-26-2023 End: 10-26-2024 Iron and Iron binding capacity panel - Serum or Plasma IRON + TIBC Lab Routine Anemia, unspecified type Expected: 10/26/2023, Expires: 10/26/2024 [facility] Work Phone: Comment on above: Expected: 10/26/2023 , Expires: 10/26/2024 Start: 10-24-2023 End: 01-23-2024 Basic metabolic 2000 panel - Serum or Plasma BASIC METABOLIC PNL Lab Routine C. difficile colitis Expected: 10/24/2023, Expires: 01/23/2024 [facility] Work Phone: Comment on above: Expected: 10/24/2023 , Expires: 01/23/2024 Start: 10-24-2023 End: 01-23-2024 CBC W Auto Differential panel - Blood CBC + DIFF Lab Routine C. difficile colitis Expected: 10/24/2023, Expires: 01/23/2024 [facility] Work Phone: Comment on above: Expected: 10/24/2023 , Expires: 01/23/2024 Start: 10-09-2023 [facility] Start: 10-09-2023 Oxygen therapy [facility] Start: 10-08-2023 ANNUAL PCP TEAM DISEASE CASE MANAGER RN MANISHA DISEASE VISIT ANNUAL PCP TEAM CHRONIC DISEASE VISIT [facility] Start: 10-08-2023 Enteric precautions [facility] Start: 10-07-2023 [facility] Start: 10-07-2023 Following clinical pathway protocol [facility] Start: 10-07-2023 Ambulation without limitation [facility] Start: 10-07-2023 Assessment of risk o f venous thromboembolism [facility] Start: 10-07-2023 Care regimes management [facility] Start: 10-07-2023 Catheterization of vein [facility] Start: 10-07-2023 Insertion of cathete r into peripheral vein [facility] Start: 10-07-2023 Measuring intake and output [facility] Start: 10-07-2023 Notification of physician [facility] Start: 10-07-2023 Providing care accor ding to standard [facility] Start: 10-07-2023 Referral to physician relations manager [facility] Start: 10-07-2023 [facility] Start: 10-07-2023 Troponin I measurement [facility] Start: 10-07-2023 Verification routine [facility] Start: 10-07-2023 Admission procedure [facility] Start: 10-07-2023 Hospital admission, emergency, from emergency room, medical nature [facility] Start: 08-28-2023 ANNUAL PCP TEAM DISEASE CASE MANAGER RN MANISHA DISEASE VISIT ANNUAL PCP TEAM CHRONIC DISEASE VISIT [facility] Start: 07-25-2023 Hemoglobin A1c/Hemoglobin.total in Blood HBA1C [facility] Start: 06-27-2023 3 comp foot exam completed DIABETIC FOOT EXAM [facility] Start: 06-27-2023 ANNUAL PCP TEAM DISEASE CASE MANAGER RN MANISHA DISEASE VISIT ANNUAL PCP TEAM CHRONIC DISEASE VISIT [facility] Start: 06-27-2023 BP CONTROLLED (<130/80) BP CONTROLLE D (<130/80) [facility] Start: 06-27-2023 COVID-19 VACCINE (#1) COVID-19 VACCI NE (#1) [facility] Comment on above: Postponed from 06/18 (Declined at this time) Start: 06-27-2023 Diabetic foot examination Diabetic Foot Exam [facility] Start: 06-27-2023 HEPATITIS B (1 of 3 - 3-dose series) HEPATITIS B (1 of 3 - 3-dose series) [facility] Comment on above: Postponed from 12/17 (Declined at this time) Start: 06-27-2023 Hepatitis B screening URINE ALBUMIN:CREATININE RATIO [facility] Start: 06-27-2023 Hepatitis B surface antibody level LDL CHOLESTEROL [facility] Start: 06-27-2023 PNEUMOCOCCAL (2 - PCV) PNEUMOCOCCAL (2 - PCV) [facility] Start: 06-27-2023 Pneumococcal vaccination [facility] Start: 06-27-2023 Pneumococcal Vaccine : 50+ (2 of 2 - PCV) Pneumococcal Vaccine: 50+ (2 of 2 - PCV) [facility] Start: 06-27-2023 Pneumococcal Vaccine : Age 50+ (2 of 2 - PCV) Pneumococcal Vaccine: Age 50+ (2 of 2 - PCV) [facility] Start: 06-17-2023 ANNUAL PCP TEAM DISEASE CASE MANAGER RN MANISHA DISEASE VISIT ANNUAL PCP TEAM CHRONIC DISEASE VISIT [facility] Start: 05-08-2023 COVID-19 Vaccine ( season) COVID-19 Vaccine ( season) [facility] Start: 05-08-2023 Influenza vaccination [facility] Start: 04-27-2023 FUV, Provider: Lebron Cross II, Status: Pen, Time: 8:00 AM FUV, Provider: Lebron Cross II, Status: Pen, Time: 8:00 AM [id number] Work Phone: Start: 04-22-2023 FUV, Provider: Lebron Cross II, Status: Pen, Time: 3:45 PM FUV, Provider: Lebron Cross II, Status: Pen, Time: 3:45 PM [id number] DO Work Phone: Start: 04-07-2023 Hemoglobin A1c/Hemoglobin.total in Blood HBA1C [facility] Start: 03-22-2023 Patient discharge [facility] Start: 03-20-2023 Consultation [facility] Start: 03-18-2023 Dual pressure spontaneous ventilation support [facility] Start: 03-18-2023 Consultation [facility] Start: 03-18-2023 Bacteria identified in Blood by Culture Blood Culture [facility] Start: 03-18-2023 Following clinical pathway protocol [facility] Start: 03-18-2023 Assessment of risk o f venous thromboembolism [facility] Start: 03-18-2023 Care regimes management [facility] Start: 03-18-2023 Fall prevention [facility] Start: 03-18-2023 Inhalation therapy procedure [facility] Start: 03-18-2023 Insertion of cathete r into peripheral vein [facility] Start: 03-18-2023 Introduction of urin chava catheter [facility] Start: 03-18-2023 Measuring intake and output [facility] Start: 03-18-2023 Oxygen therapy [facility] Start: 03-18-2023 Providing care accor ding to standard [facility] Start: 03-18-2023 Provision of activit y privileges [facility] Start: 03-18-2023 Referral to service [facility] Start: 03-18-2023 End: 03-18-2023 [facility] Start: 03-18-2023 Verification routine [facility] Start: 03-18-2023 Admission procedure [facility] Start: 03-18-2023 Patient referral to dietitian [facility] Start: 03-17-2023 End: 03-17-2023 Blood culture [facility] Start: 03-17-2023 Prothrombin time [facility] Start: 12-09-2022 ANNUAL PCP TEAM DISEASE CASE MANAGER RN MANISHA DISEASE VISIT ANNUAL PCP TEAM CHRONIC DISEASE VISIT [facility] Start: 12-09-2022 Hepatitis B surface antibody level LDL CHOLESTEROL [facility] Start: 12-03-2022 ANNUAL PCP TEAM DISEASE CASE MANAGER RN MANISHA DISEASE VISIT ANNUAL PCP TEAM CHRONIC DISEASE VISIT [facility] Start: 10-25-2022 Patient discharge [facility] Start: 10-24-2022 Following clinical pathway protocol [facility] Start: 10-24-2022 Transfusion of blood product [facility] Start: 10-24-2022 Cardiac monitoring [facility] Start: 10-24-2022 Cardiac rehabilitati on - phase 1 [facility] Start: 10-24-2022 Cardiac rehabilitati on - phase 2 [facility] Start: 10-24-2022 Notification of physician [facility] Start: 10-24-2022 Oxygen therapy [facility] Start: 10-24-2022 Patient discharge [facility] Start: 10-24-2022 Provision of activit y privileges [facility] Start: 10-24-2022 Taking patient vital signs [facility] Start: 10-24-2022 Vascular disease ris k assessment [facility] Start: 10-24-2022 Vital signs measurements [facility] Start: 10-24-2022 [facility] Start: 10-24-2022 Admission procedure [facility] Start: 10-24-2022 Patient referral to dietitian [facility] Start: 09-17-2022 End: 11-17-2022 Hemoglobin A1c in Blood HGB A1C Lab Routine Controlled type 2 diabetes mellitus without complication, without long-term current use of insulin ([facility]) Wellness examination Expected: 09/17/2022, Expires: 11/17/2022 [facility] Work Phone: Comment on above: Expected: 09/17/2022 , Expires: 11/17/2022 Start: 09-07-2022 DEPRESSION ASSESSMENT DEPRESSION ASS ESSMENT [facility] Start: 08-28-2022 End: 09-11-2022 Influenza virus A and B RNA and SARS-CoV-2 (COVID-19) N gene panel - Respiratory specimen by SEVERO with probe detection COVID WITH FLUA+B, ROUTINE Microbiology Routine Acute upper respiratory infection Expected: 08/28/2022, Expires: 09/11/2022 [facility] Work Phone: Comment on above: Expected: 08/28/2022 , Expires: 09/11/2022 Start: 08-22-2022 Administration of he rpes zoster vaccine Zoster Vaccines (2 of 2) [facility] Start: 08-22-2022 SHINGRIX VACCINE (2 of 2) SHINGRIX VACCINE (2 of 2) [facility] Start: 08-22-2022 Zoster Vaccines (2 of 2) Zoste r Vaccines (2 of 2) [facility] Start: 08-09-2022 ANNUAL PCP TEAM DISEASE CASE MANAGER RN MANISHA DISEASE VISIT ANNUAL PCP TEAM CHRONIC DISEASE VISIT [facility] Start: 07-08-2022 End: 09-07-2022 Hemoglobin A1c in Blood HGB A1C Lab Routine Controlled type 2 diabetes mellitus without complication, without long-term current use of insulin (HCC) Expected: 07/08/2022, Expires: 09/07/2022 [facility] Work Phone: Comment on above: Expected: 07/08/2022 , Expires: 09/07/2022 Start: 06-27-2022 End: 08-27-2022 PSA/PROSTSPECAG SCRN [facility] Work Phone: Comment on above: Expected: 06/27/2022 , Expires: 08/27/2022 Start: 06-17-2022 End: 08-17-2022 ALBUMIN/CREAT RATIO RND UR ALBUMIN/CREAT RATIO RND UR Lab Routine Controlled type 2 diabetes mellitus without complication, without long-term current use of insulin (HCC) Wellness examination Expected: 06/17/2022, Expires: 08/17/2022 [facility] Work Phone: Comment on above: Expected: 06/17/2022 , Expires: 08/17/2022 Start: 06-17-2022 End: 08-17-2022 CBC panel - Blood by Automated count CBC Lab Routine Essential hypertension, benign Controlled type 2 diabetes mellitus without complication, without long-term current use of insulin (HCC) Wellness examination Expected: 06/17/2022, Expires: 08/17/2022 [facility] Work Phone: Comment on above: Expected: 06/17/2022 , Expires: 08/17/2022 Start: 06-17-2022 End: 08-17-2022 Comprehensive metabolic 2000 panel - Serum or Plasma COMP METABOLIC PANEL Lab Routine Essential hypertension, benign Hyperlipidemia, unspecified hyperlipidemia type Controlled type 2 diabetes mellitus without complication, without long-term current use of insulin (HCC) Wellness examination Expected: 06/17/2022, Expires: 08/17/2022 [facility] Work Phone: Comment on above: Expected: 06/17/2022 , Expires: 08/17/2022 Start: 06-17-2022 End: 08-17-2022 Hepatitis B virus surface Ab [Presence] in Serum by Immunoassay HEP B SURF AG SCRN Lab Routine Wellness examination Need for hepatitis B screening test Expected: 06/17/2022, Expires: 08/17/2022 [facility] Work Phone: Comment on above: Expected: 06/17/2022 , Expires: 08/17/2022 Start: 06-17-2022 End: 08-17-2022 Hepatitis C virus Ab [Presence] in Serum HEP C AB IA W/CONF SCRN Lab Routine Wellness examination Encounter for hepatitis C screening test for low risk patient Expected: 06/17/2022, Expires: 08/17/2022 [facility] Work Phone: Comment on above: Expected: 06/17/2022 , Expires: 08/17/2022 Start: 06-17-2022 End: 08-17-2022 Lipid 1996 panel - Serum or Plasma LIPID PANEL BASIC Lab Routine Hyperlipidemia, unspecified hyperlipidemia type Controlled type 2 diabetes mellitus without complication, without long-term current use of insulin (HCC) Wellness examination Expected: 06/17/2022, Expires: 08/17/2022 [facility] Work Phone: Comment on above: Expected: 06/17/2022 , Expires: 08/17/2022 Start: 06-10-2022 ADULT PREVNAR ADULT PREVNAR [facility] Comment on above: Postponed from 12/17 (Postponed To Appropriate Date) Start: 06-10-2022 ADULT PREVNAR-13 ADULT PREVNAR-13 [facility] Comment on above: Postponed from 12/17 (Postponed To Appropriate Date) Start: 06-10-2022 COVID-19 VACCINE (#1) COVID-19 VACCI NE (#1) [facility] Comment on above: Postponed from 12/17 (Declined at this time) Postponed from 06/18 (Declined at this time) Start: 06-10-2022 COVID-19 VACCINE (1) COVID-19 VACCIN E (1) [facility] Comment on above: Postponed from 12/17 (Declined at this time) Start: 06-10-2022 PNEUMOCOCCAL (2 - PCV) PNEUMOCOCCAL (2 - PCV) [facility] Start: 09-01-2022 Influenza vaccination INFLUENZA (#1) [facility] Start: 05-01-2022 OTRECHEADT, Provider : Sabine Garza, Status: Pen, Time: 8:45 AM OTRECHEADT, Provider: Sabine Garza, Status: Pen, Time: 8:45 AM [facility] Work Phone: Start: 04-28-2022 OTFUADULT4, Provider : Elvira Martin, Status: Pen, Time: 8:00 AM OTFUADULT4, Provider: Elvira Martin, Status: Pen, Time: 8:00 AM [facility] Work Phone: Start: 04-23-2022 OTFUADULT4, Provider : Elvira Martin, Status: Pen, Time: 8:00 AM OTFUADULT4, Provider: Elvira Martin, Status: Pen, Time: 8:00 AM [facility] Work Phone: Start: 04-22-2022 OTFUADULT4, Provider : Elvira Martin, Status: Pen, Time: 8:00 AM OTFUADULT4, Provider: Elvira Martin, Status: Pen, Time: 8:00 AM [facility] Work Phone: Start: 04-17-2022 OTFUADULT4, Provider : Sabine Garza, Status: Pen, Time: 9:15 AM OTFUADULT4, Provider: Sabine Garza, Status: Pen, Time: 9:15 AM [facility] Work Phone: Start: 04-14-2022 OTFUADULT4, Provider : Marielos Law, Status: Pen, Time: 10:30 AM OTFUADULT4, Provider: Marielos Law, Status: Pen, Time: 10:30 AM [facility] Work Phone: Start: 04-08-2022 OTFUADULT3, Provider : Sabine Garza, Status: Pen, Time: 4:30 PM OTFUADULT3, Provider: Sabine Garza, Status: Pen, Time: 4:30 PM [facility] Work Phone: Start: 04-04-2022 Hepatitis B screening URINE ALBUMIN:CREATININE RATIO [facility] Start: 04-03-2022 OTFUADULT4, Provider : Marielos Law, Status: Pen, Time: 9:45 AM OTFUADULT4, Provider: Marielos Law, Status: Pen, Time: 9:45 AM [facility] Work Phone: Start: 03-22-2022 Hepatitis B surface antibody level LDL CHOLESTEROL [facility] Start: 03-10-2022 Hemoglobin A1c/Hemoglobin.total in Blood HBA1C [facility] Start: 12-28-2021 Adult depression screening assessment DEPRESSION SCREENING [facility] Start: 12-10-2021 End: 02-09-2022 LIPID PANEL BASIC LIPID PANEL BASIC Lab Routine Hyperlipidemia, unspecified hyperlipidemia type Hypothyroidism, unspecified type Expected: 12/10/2021, Expires: 02/09/2022 [facility] Work Phone: Comment on above: Expected: 12/10/2021 , Expires: 02/09/2022 Start: 12-10-2021 End: 02-09-2022 Thyrotropin [Units/volume] in Serum or Plasma TSH BLD Lab Routine Hyperlipidemia, unspecified hyperlipidemia type Hypothyroidism, unspecified type Expected: 12/10/2021, Expires: 02/09/2022 [facility] Work Phone: Comment on above: Expected: 12/10/2021 , Expires: 02/09/2022 Start: 12-09-2021 End: 02-08-2022 CBC W Auto Differential panel - Blood [facility] Work Phone: Comment on above: Expected: 12/09/2021 , Expires: 02/08/2022 Start: 12-09-2021 End: 02-08-2022 Comprehensive metabolic 2000 panel - Serum or Plasma [facility] Work Phone: Comment on above: Expected: 12/09/2021 , Expires: 02/08/2022 Start: 12-09-2021 End: 02-08-2022 Erythrocyte sedimentation rate [facility] Work Phone: Comment on above: Expected: 12/09/2021 , Expires: 02/08/2022 Start: 12-09-2021 End: 02-08-2022 Hemoglobin A1c/Hemoglobin.total in Blood [facility] Work Phone: Comment on above: Expected: 12/09/2021 , Expires: 02/08/2022 Start: 12-09-2021 End: 02-08-2022 LIPID PANEL, NONFASTING [facility] Work Phone: Comment on above: Expected: 12/09/2021 , Expires: 02/08/2022 Start: 12-09-2021 End: 02-08-2022 Thyrotropin [Units/volume] in Serum or Plasma [facility] Work Phone: Comment on above: Expected: 12/09/2021 , Expires: 02/08/2022 Start: 12-09-2021 End: 02-08-2022 Urate [Mass/volume] in Serum or Plasma [facility] Work Phone: Comment on above: Expected: 12/09/2021 , Expires: 02/08/2022 Start: 09-22-2021 Hemoglobin A1c/Hemoglobin.total in Blood HBA1C [facility] Start: 09-19-2021 Urine microalbumin profile DTAP,TDAP,TD (2 - Td or Tdap) [facility] Start: 09-07-2021 DEPRESSION ASSESSMENT DEPRESSION ASS ESSMENT [facility] Start: 01-22-2021 Screening for malign ant neoplasm of lung Low-dose CT Lung Cancer Screen [facility] Start: 2020 Screening for malign ant neoplasm of colon Flexible sigmoidoscopy [facility] Start: 2020 SHINGRIX VACCINE (1 of 2) SHINGRIX VACCINE (1 of 2) [facility] Start: 2020 Zoster Vaccines (1 of 2) Zoste r Vaccines (1 of 2) [facility] Start: 05-03-2018 Ambulatory 05/03/2018 Hos pital Encounter David, Ellie Salmon, DPM [address] [place] [address] [phone] [facility] Start: 12-18-2015 COLOGUARD (FIT-DNA) COLOGUARD (FIT-D NA) [facility] Start: 12-18-2015 Colonoscopy COLONOSCOPY [facility] Start: 12-18-2015 COLORECTAL CANCER SCREENING COLORECTAL CANCER SCREENING [facility] Start: 12-18-[address] COLONOGRAPHY [facility] Start: 12-18-2015 FECAL OCCULT BLOOD FECAL OCCULT BLOO D [facility] Start: 12-18-2015 Screening for malign ant neoplasm of colon [facility] Start: 12-18-2015 SIGMOIDOSCOPY SIGMOIDOSCOPY [facility] Start: 1992 DTaP/Tdap/Td Vaccine s (1 - Tdap) DTaP/Tdap/Td Vaccines (1 - Tdap) [facility] Start: 1989 HEPATITIS B (1 of 3 - Risk 3-dose series) HEPATITIS B (1 of 3 - Risk 3-dose series) [facility] Start: 1989 Hepatitis B Vaccine (1 of 3 - 19+ 3-dose series) Hepatitis B Vaccine (1 of 3 - 19+ 3-dose series) [facility] Start: 1989 Hepatitis B Vaccines (1 of 3 - 19+ 3-dose series) Hepatitis B Vaccines (1 of 3 - 19+ 3-dose series) [facility] Start: 1988 BP CONTROLLED (<130/80) BP CONTROLLE D (<130/80) [facility] Start: 1988 Diabetes mellitus screening Diabetes Screening [facility] Start: 1988 HEPATITIS C SCREENING HEPATITIS C [facility] Start: 1988 Hepatitis C screening Hepatitis C [facility] Start: 1988 HIV SCREENING HIV SCREENING [facility] Start: 1985 HIV screening HIV Screening [facility] Start: 1982 Depression screening using PHQ-9 (Patient Health Questionnaire 9) score [facility] Start: 1980 3 comp foot exam completed DIABETIC FOOT EXAM [facility] Start: 1980 Diabetic foot examination Diabetic Foot Exam [facility]: 1980 Glaucoma screening [facility] Start: 1980 Hepatitis C antibody , confirmatory test DILATED RETINAL EXAM [facility] Start: 1980 Urine screening for protein [facility] Start: 1973 History and physical examination, annual for health maintenance Wellness Visit [facility] Start: 12-18-1971 MMR Vaccines (1 of 1 - Standard series) MMR Vaccines (1 of 1 - Standard series) [facility] Start: 06-18-1971 COVID-19 VACCINE (#1) COVID-19 VACCI NE (#1) [facility] Start: 1970 HEPATITIS B (1 of 3 - 3-dose series) HEPATITIS B (1 of 3 - 3-dose series) [facility] Start: 1970 Hepatitis B Vaccine (1 of 3 - 3-dose series) Hepatitis B Vaccine (1 of 3 - 3-dose series) [facility] Start: 1970 Hepatitis B Vaccines (1 of 3 - 3-dose series) Hepatitis B Vaccines (1 of 3 - 3-dose series) [facility] Start: 1970 HIV screening HIV Screening [facility] Start: 1970 Lipid panel Lipid Panel [facility] Start: 1970 Prostate specific antigen measurement PSA Level [facility] Start: 1970 Screening for malign ant neoplasm of colon [facility] Start: 1970 Yearly Adult Physical Yearly Adult P hysical [facility] Bacteria identified in Wound by Culture ABSCESS AND WOUND CULTURE WITH GRAM STAIN Microbiology Routine Ingrowing toenail with infection 03/28/2024 10:38 AM EDT [facility] Blood culture [facility] Catheterization of l eft heart [facility] Clostridioides diffi cile toxin genes [Presence] in Stool by SEVERO with probe detection C. DIFFICILE PCR Lab Routine C. difficile colitis Ordered: 10/16/2023 [facility] Work Phone: Comment on above: Ordered: 10/16/2023 COLOGUARD COLOGUARD Lab Ro utine Screening for colon cancer Ordered: 06/27/2022 [facility] Work Phone: Comment on above: Ordered: 06/27/2022 COLOGUARD COLOGUARD Lab Ro utine Screening for colon cancer Ordered: 08/09/2024 [facility] Comment on above: Ordered: 08/09/2024 End: 09-22-2023 ECG 12 lead [facility] Work Phone: Comment on above: Once for 1 Occurrenc es starting 09/22/2023 until 09/22/2023 End: 09-22-2023 Extra Urine Raines Tube [facility] Work Phone: Comment on above: Once for 1 Occurrenc es starting 09/22/2023 until 09/22/2023 INR in Blood by Coagulation assay [facility] Lactic acid measurement [facility] End: 06-12-2025 MR Knee - left WO contrast MRI KNEE WO IVCON LEFT Radiology Routine Chronic pain of left knee 1 Occurrences starting 05/13/2024 until 06/12/2025 [facility] Work Phone: Comment on above: 1 Occurrences starti ng 05/13/2024 until 06/12/2025 Patient Education [facility] Work Phone: Patient referral [facility] Work Phone: End: 09-22-2023 Urinalysis complete W Reflex Culture panel - Urine [facility] Service Area Work Phone: Comment on above: STAT (Lab) for 1 Occ urrences starting 09/22/2023 until 09/22/2023 End: 04-27-2025 US Lower extremity vein - left US DVT LOWER LEFT Radiology STAT Acute pain of left knee Edema of leg Pain of left lower extremity 1 Occurrences starting 03/28/2024 until 04/27/2025 [facility] Comment on above: 1 Occurrences starti ng 03/28/2024 until 04/27/2025 End: 10-15-2025 XR Knee - left 4 Views XR KNEE GENERAL 4V AP BOTH/PA BOTH/LAT/MERC LEFT Radiology Routine Pain in both knees, unspecified chronicity 1 Occurrences starting 09/15/2024 until 10/15/2025 [facility] Work Phone: Comment on above: 1 Occurrences starti ng 09/15/2024 until 10/15/2025 End: 10-15-2025 XR Lower extremity - bilateral AP W standing XR LEG FRONTAL HIP TO ANKLE MECHANICAL AXIS Radiology Routine Pain in both knees, unspecified chronicity 1 Occurrences starting 09/15/2024 until 10/15/2025 [facility] Comment on above: 1 Occurrences starti ng 09/15/2024 until 10/15/2025 End: 04-27-2025 XR Toes - right 3 Views XR TOE AP/LAT/OBL RIGHT Radiology Routine Ingrowing toenail with infection 1 Occurrences starting 03/28/2024 until 04/27/2025 [facility] Work Phone: Comment on above: 1 Occurrences starti ng 03/28/2024 until 04/27/2025 XR Toes - right 3 Views XR TOE A P/LAT/OBL RIGHT Radiology Routine Ingrowing toenail with infection 03/28/2024 11:15 AM EDT [facility] End: 05-01-2025 XR Toes - right 3 Views XR TOE AP/LAT/OBL RIGHT Radiology Routine Open wound of toe, initial encounter 1 Occurrences starting 04/01/2024 until 05/01/2025 [facility] Work Phone: Comment on above: 1 Occurrences starti ng 04/01/2024 until 05/01/2025 End: 05-14-2025 XR Toes - right 3 Views XR TOE AP/LAT/OBL RIGHT Radiology Routine Closed non-physeal fracture of phalanx of right great toe, unspecified phalanx, initial encounter 1 Occurrences starting 04/14/2024 until 05/14/2025 [facility] Work Phone: Comment on above: 1 Occurrences starti ng 04/14/2024 until 05/14/2025 [facility] Immunizations Immunization Date Immunization Notes Care Provider [facility] 08-09-2024 influenza, seasonal, injectable Ginger Lugo MD Work Phone: [facility] 08-09-2024 influenza virus vacc ine, unspecified formulation Ginger Lugo MD Work Phone: [facility] 09-25-2023 influenza, injectabl e, quadrivalent, contains preservative Ginger Lugo MD Work Phone: [facility] 09-25-2023 influenza virus vacc ine, unspecified formulation Ginger Lugo MD Work Phone: [facility] 06-27-2022 influenza, injectabl e, quadrivalent, contains preservative NA Christine PA-C Work Phone: [facility] 06-27-2022 pneumococcal polysaccharide vaccine, 23 valent NA Christine PA-C Work Phone: [facility] 06-27-2022 tetanus toxoid, redu jo diphtheria toxoid, and acellular pertussis vaccine, adsorbed NA Christine PA-C Work Phone: [facility] 06-27-2022 zoster vaccine recombinant NA Christine PA-C Work Phone: [facility] 06-27-2022 influenza virus vacc ine, unspecified formulation Ginger Lugo MD Work Phone: [facility] 06-10-2021 influenza, injectabl e, quadrivalent, contains preservative Ginger Lugo MD Work Phone: [facility] 06-10-2021 pneumococcal polysaccharide vaccine, 23 valent Ginger Lugo MD Work Phone: [facility] 07-23-2020 influenza, injectabl e, quadrivalent, preservative free [facility] 07-23-2020 influenza, seasonal, injectable Dr. Ginger Lugo Work Phone: [facility] 07-23-2020 influenza, seasonal, injectable, preservative free NA Christine PA-C Work Phone: [facility] 06-30-2019 influenza, injectabl e, quadrivalent, contains preservative Ginger Lugo MD Work Phone: [facility] Work Phone: 08-07-2017 Influenza, injectabl e, Madin [place] Canine Kidney, preservative free, quadrivalent NA Emmett WARD Work Phone: [facility] 06-07-[address] Ginger Lugo Work Phone: [facility] 06-07-2017 influenza, seasonal, injectable, preservative free NA Emmett WARD Work Phone: [facility] 07-05-2016 influenza, injectabl e, quadrivalent, contains preservative Ginger Lugo MD Work Phone: [facility] 08-16-2015 influenza, injectabl e, quadrivalent, contains preservative Ginger Lugo MD Work Phone: [facility] 06-02-2014 influenza, seasonal, injectable Ginger Lugo MD Work Phone: [facility] 09-20-2012 influenza virus vacc ine, unspecified formulation Ginger Lugo MD Work Phone: [facility] Work Phone: 09-19-2011 influenza virus vacc ine, unspecified formulation Ginger Lugo MD Work Phone: [facility] Work Phone: 09-19-2011 tetanus toxoid, redu jo diphtheria toxoid, and acellular pertussis vaccine, adsorbed Ginger Lugo MD Work Phone: [facility] Work Phone: Payers Date Payer Category Payer Self-pay [id number] 2022 Worker's Compensation [id number] 2022 Unknown [id number] 1 2019 Private Health Insurance [facility] UMR CHOICE PLUS [id number] 2019-Present [phone] [address] [address] [place] [address] [facility] [id number] .[id number] 2016 Managed Care (Private) [facility] [id number] .[id number] 5 2016 Managed Care (unspecified) 1 .[id number] .2.7.9.499221.625.315 2016 Private Health Insurance 1.2 .840.028258.1.13.159 .2.7.3.315032.315 2016 Private Health Insurance [id number] 2016 Unknown 2016 Worker's Compensation [id number] 2010 Unknown SIRI [id number] 1970 Unknown [id number] 2.16840.1.153498.3.579 .2. 1970 Unknown [id number] 2.16.840.1.154385.3.579 .2. 1970 Unknown [id number] 2.16840.1.029143.3.579 .2. 1970 Unknown [id number] 2.16840.1.857519.3.579 .2. 1970 Unknown [id number] 2.16840.1.673727.3.579 .2 1970 Unknown [id number] 2.16.840.1.839507.3.579 .2.1069 1970 Unknown [id number] 2.16840.1.332501.3.579 .2.1068 1970 Unknown [id number] 2.16.840.1.844527.3.579 .2.1068 1970 Unknown [id number] 2.16.840.1.880880.3.579 .2.1068 1970 Unknown [id number] 2.16.840.1.799236.3.579 .2.1068 1970 Unknown [id number] 2.16.840.1.896647.3.579 .2.1068 1970 Unknown [id number] 2.16.840.1.276229.3.579 .2.1068 1970 Unknown [id number] 2.16.840.1.991375.3.579 .2.1068 1970 Unknown [id number] 2.16.840.1.936835.3.579 .2.1068 1970 Unknown [id number] 2.16.840.1.540070.3.579 .2.1068 1970 Unknown [id number] 2.16.840.1.169813.3.579 .2.1068 1970 Unknown [id number] 2.16.840.1.554642.3.579 .2.1068 1970 Unknown [id number] 2.16.840.1.361465.3.579 .2.1068 1970 Unknown [id number] 2.16.840.1.549642.3.579 .2.1068 1970 Unknown [id number] 2.16.840.1.862382.3.579 .2. 1970 Unknown [id number] 2.16.840.1.552678.3.579 .2 1970 Unknown [id number] 2.16.840.1.749551.3.579 .2. 1970 Unknown [id number] 2.16.840.1.423127.3.579 .2.903 1970 Unknown [id number] 2.16.840.1.733505.3.579 .2.93 1970 Unknown [id number] 2.16.840.1.824498.3.579 .2.902 1970 Unknown [id number] 2.16.840.1.495030.3.579 .2.902 1970 Unknown [id number] 2.16.840.1.109693.3.579 .2.903 1970 Unknown [id number] 2.16.840.1.908996.3.579 .2.1243 1970 Unknown [id number] 2.16.840.1.218793.3.579 .2.1243 1970 Unknown [id number] 2.16.840.1.519384.3.579 .2.1243 1970 Unknown [id number] 2.16.840.1.056193.3.579 .2.1243 Unknown [id number] 2.16.840.1.682091.3.579 .2.462 Unknown [id number] 2.16.840.1.042698.3.579 .2.462 Social History Date Type Detail Facility Tobacco smoking stat [facility] Unknown if ever smoked [facility] Start: 1970 Sex Assigned At Not on file [facility] Start: 03-18-2013 End: 06-27-2022 Tobacco smoking status OHIS Smokes tobacco daily [facility] Start: 10-08-2005 End: 10-08-2022 History of tobacco use Cigarette Smoker [facility] Start: 08-09-2021 End: 10-24-2024 Alcohol intake Current drinker of alcohol (finding) [facility] Start: 02-01-2020 End: 12-28-2020 History SDOH Alcohol Frequency 1 [facility] Start: 02-01-2020 History SDOH Social Connections Phone 3 [facility] Start: 02-01-2020 History SDOH Physical Activity DPW 0 [facility] Start: 02-01-2020 End: 12-02-2021 History SDOH Transport Med 2 [facility] Start: 02-01-2020 Education 12 [facility] Start: 09-16-2020 End: 09-22-2023 Exposure to SARS-CoV-2 (event) Not sure [facility] Start: 1970 Sex Assigned At Male [facility] Start: 03-18-2013 End: 06-09-2024 Cigarettes smoked current (pack per day) - Reported 1 [facility] Start: 03-18-2013 End: 05-04-2024 Tobacco use and exposure Smokeless tobacco non-user [facility] Work Phone: Start: 06-27-2022 Tobacco Comment 06/27/2022 5 cigs/day [facility] Start: 10-24-2022 End: 10-08-2023 Tobacco smoking consumption unknown [facility] Start: 12-19-2020 None [facility] Start: 12-19-2020 Spouse/ Significant Other [facility] Start: 12-19-2020 Cigarettes [facility] Start: 03-17-2023 End: 09-19-2024 Tobacco smoking status NHIS Ex-smoker [facility] Start: 10-08-2005 End: 10-08-2022 History of tobacco use Current smoker [facility] Start: 03-17-2023 End: 06-09-2024 Tobacco use panel [facility] Start: 08-08-2012 End: 08-01-2022 Adult Depression Screening Assessment 0 [facility] Start: 12-01-2021 Gender identity Identifies as male gender (finding) [facility] Do you belong to any clubs or organizations such as lutheran groups, unions, fraternal or athletic groups, or school groups? Yes [facility] Are you now , , , , never or living with a partner? [facility] How often to you hav e a drink containing alcohol? Never [facility] Do you feel stress - tense, restless, nervous, or anxious, or unable to sleep at night because your mind is troubled all the time - these days [OSQ] Not at all [facility] (I/We) worried wheth er (my/our) food would run out before (I/we) got money to buy more. Never true [facility] In the past 12 month s, was there a time when you were not able to pay the mortgage or rent on time? No [facility] History of tobacco use Passive smoker [facility] Start: 10-29-2023 End: 09-19-2024 Tobacco use and exposure User of smokeless tobacco [facility] Start: 10-29-2023 End: 01-02-2025 Alcohol intake Lifetime non-drinker (finding) [facility] Start: 10-29-2023 Tobacco Comment snuff [facility] History of tobacco use Chews Tobacco [facility] Do you feel stress - tense, restless, nervous, or anxious, or unable to sleep at night because your mind is troubled all the time - these days [OSQ] Only a little [facility] Medical Equipment Procedure Code Equipment Code Equipment Original Text Equipment Identifier Dates [id number], [id number], [id number], [id number], [id number], [id number] Start: 04-04-2021 End: 11-07-2022 Comment on above: Test blood sugar(s) 1 times daily. Dx: Type 2 DM - Controlled E11.9 Insulin: No STENT,URETERAL 6FR PIG 6X26 FDA Start: 03-15-2018 Drug-eluting coronary artery stent, non-bioabsorbable -polymer-coated ()[id number] FDA Start: 10-24-2022 Drug-eluting coronary artery stent, non-bioabsorbable -polymer-coated ()[id number] FDA Start: 10-24-2022 STENT,URETERAL 6FR PIG 6X26 [...] 0 10/24/19 25 7:57 AM EST UserAiyana [facility] 10-24-2024 Within the last year , have you been humiliated or emotionally abused in other ways by your partner or ex-partner? No 10/24/2024 7:57 AM EST User, Kazhart No [facility] 10-24-2024 Within the last year , have you been afraid of your partner or ex-partner? No 10/24/2024 7:57 AM EST User, Kazhart No [facility] 10-24-2024 Within the last year , have you been raped or forced to have any kind of sexual activity by your partner or ex-partner? No 10/24/2024 7:57 AM EST User, Kazhart No [facility] 10-24-2024 Within the last year , have you been kicked, hit, slapped, or otherwise physically hurt by your partner or ex-partner? No 10/24/2024 7:57 AM EST User, Kazhart No [facility] 10-24-2024 How often to you hav e a drink containing alcohol? Never 10/24/2024 7:57 AM EST User, Mychart Never [facility] 10-24-2024 Functional status Patient does n ot drink 10/24/2024 7:57 AM EST User, Kazhart Patient does not drink [facility] 10-24-2024 How often do you hav e 6 or more drinks on 1 occasion? Never 10/24/2024 7:57 AM EST User, Kazhart Never [facility] 10-09-2023 Functional status Ambulates;Up ad elizabeth [facility] Work Phone: 03-22-2023 Functional status Activity Abili ty [facility] Work Phone: 03-21-2023 Functional status Patient Activi ty Ambulates [facility] Work Phone: 10-25-2022 Functional status Activity Abili [facility] Work Phone: 04-02-2015 Are you deaf, or do you have serious difficulty hearing No 04/02/2015 9:57 AM Asha Orozco LPN No [facility] 04-02-2015 Are you blind, or do you have serious difficulty seeing, even when wearing glasses No 04/02/2015 9:57 AM Asha Orozco LPN No [facility] 04-02-2015 Do you have serious difficulty walking or climbing stairs No 04/02/2015 9:57 AM Asha Orozco LPN No [facility] 04-02-2015 Do you have difficul ty dressing or bathing No 04/02/2015 9:57 AM Asha Orozco LPN No [facility] 04-02-2015 Because of a physica l, mental, or emotional condition, do you have difficulty doing errands alone such as visiting a physician's office or shopping No 04/02/2015 9:57 AM Asha Orozco LPN No [facility] Mental Status Date Assessment Result Facility 10-09-2023 Cognitive function Voice/Name [facility] Work Phone: 10-07-2023 Cognitive function Voice/Name [facility] Work Phone: 03-22-2023 Cognitive function Voice/Name [facility] Work Phone: 03-17-2023 Cognitive function Level Of Cons ciousness Awake;Alert;Appropriate [facility] Work Phone: 01-31-2023 Cognitive function Level Of Cons ciousness Awake;Alert;Appropriate;Fol lows Commands [facility] Work Phone: 10-25-2022 Cognitive function Voice/Name [facility] Work Phone: 04-02-2015 Because of a physica l, mental, or emotional condition, do you have serious difficulty concentrating, remembering, or making decisions No 04/02/2015 9:57 AM Asha Orozco LPN No [facility] Clinical Notes 06-13-2015 to 05-26-2025 Velia Marshall APRN-[employer] - 05/26/2025 4:35 PM EDTTelephone Encounter - [place] Edna Carvajal - 04/07/2025 12:32 PM EDTTelephone Encounter - [place] Edna Carvajal - 04/07/2025 12:32 PM EDT [...] to the ER. documented in this encounter [facility] Work Phone: 05-26-2025 Note HNO ID: [id number] Author: MARY DALE MA Service: ? Author Type: Order Builder Loader Type: Progress Notes Filed: 05/26/2025 15:32 Note Text: PT ASSESSMENT - CASTING ROOM Nick presents for Application of brace. Applied Large OA medial service trainer brace to Right knee. Patient electronically signed Mike DANGELO. Patient has been instructed in Care and proper application of brace. Mary Dale MA [facility] 05-26-2025 Note HNO ID: [id number] Author: TORSTEN AVILES DO Service: ? Author [...] knee. - Fitted patient for a medial service trainer brace to reduce pressure on the affected [...] these instructions. Informed Consent Consent Obtained: Verbal [place] Protocol SIGN IN TIME OUT Recording using ambient [employer] software for draft documentation of the visit was discussed with the patient/authorized retail sales representative; all questions welcomed and answered. Patient/authorized retail sales representative agreed to proceed [facility] 05-26-2025 Note HNO ID: [id number] Author: MARY DALE MA Service: ? Author Type: Order Builder Loader Type: Progress Notes Filed: 05/26/2025 15:15 Note Text: AMB ROOMING INTAKE FLOWSHEET DATA Risk Screening Do you have concerns about personal safety or safety in the home?: No Pain Pain Level: 10 Pain Location: Knee-Right Description: Aching, Sharp Duration Amount of Time: (ongoing) Frequency: Continuous Intervention/Comfort measure: Medication, Cold, Heat, Other: See comment (muscle rubs) [facility] 04-07-2025 Telephone encounter Note Prescription [...] Edna Carvajal April 07, 2025 12:33 PM [facility] 04-07-2025 Miscellaneous Notes Prescription Refill Information The [...] 2025 12:33 PM documented in this encounter [facility] 02-08-2025 Telephone encounter Note Sent patient no show letter #1 [facility] 02-08-2025 Miscellaneous Notes Sent patient no show letter #1 documented in this encounter [facility] 01-11-2025 Telephone encounter Note printed [facility] 01-11-2025 Miscellaneous Notes printed Has a visit scheduled 02/08/25. Do you want this to come from ortho or be temporary? documented in this encounter [facility] 01-11-2025 Telephone encounter Note Has a visit scheduled 02/08/25. Do you want this to come from ortho or be temporary? [facility] 01-10-2025 Telephone encounter Note See nurse triage 01/05/25 [facility] 01-10-2025 Miscellaneous Notes See nurse triage 01/05/25 [...] glimepiride 2 weeks ago Eliquis is from [facility] put on after total knee to prevent [...] you. Jen Young. documented in this encounter [facility] 01-05-2025 Telephone encounter Note Triage Protocol Advised: [...] OTHER SYMPTOMS:as above Protocols used: Dizziness - [id number] [facility] 01-05-2025 Miscellaneous Notes Triage Protocol Advised: Proceed [...] OTHER SYMPTOMS:as above Protocols used: Dizziness - [id number] documented in this encounter [facility] 01-04-2025 Telephone encounter Note Left message patient [...] glimepiride 2 weeks ago Anupatrick is from [facility] put on after total knee to prevent clots so will need to call ortho office to see if continue . Jyoti Somers MA [facility] 01-04-2025 Telephone encounter Note Patient has been identified by name and date of : Yes Spouse phones for refill(s): glimepiride (AMARYL) 1 mg tablet Eliquis - both not in current refill list Date of last office visit in primary care: 10/04/2024 Date of next office visit in primary care: 02/08/2025 Please advise. Thank you. Jen Young. [facility] 01-02-2025 History of Present illness Narrative [facility] OUTPATIENT REHABILITATION DAILY TREATMENT NOTE Today's [...] Visit: 4: 10:49 - 11:33 Therapeutic Exercise (02431) Intervention SciFit - x5 min L4 Parameters [...] with Handrails Parameters wall squats w/ green indonesian ball x15 Parameters Access Code: [email or web address] URL: [email or web address] Date: 12/13/2024 Prepared by: Aly Winchester Exercises [...] mobility progressions Aly Winchester PT State License, [id number] documented in this encounter [facility] 12-30-2024 History of Present illness Narrative [facility] OUTPATIENT REH[facility]IL[facility] DAILY TREATMENT NOTE Today's [...] 11/15 Notes Visit : 10:40-11:18 Therapeutic Exercise (25767) Intervention SciFit - x5 min L4 Parameters [...] steps x2 with Handrails Parameters Access Code: [email or web address] URL: [email or web address] Date: 12/13/2024 Prepared by: Aly Winchester Exercises [...] on stretches Alyssia Robin PTA STATE LICENSE, [id number] documented in this encounter [facility] 12-28-2024 History of Present illness Narrative [facility] OUTPATIENT REHABIL[facility] DAILY TREATMENT NOTE Today's [...] Visit 2: 10:48 - 11:31 Therapeutic Exercise (29037) Intervention SciFit - x5 min L4 Parameters [...] knee flexion - NT Parameters Access Code: [email or web address] URL: [email or web address] Date: 12/13/2024 Prepared by: Aly Winchester Exercises [...] standing PREs Aly Winchester PT State License, [id number] documented in this encounter [facility] 12-26-2024 History of Present illness Narrative [facility] OUT[facility]IL[facility] DAILY TREATMENT NOTE Today's [...] Visit 1: 10:41 - 11:24 Therapeutic Exercise (51974) Intervention SciFit - x5 min L4 Parameters [...] knee flexion - Nt Parameters Access Code: [email or web address] URL: [email or web address] Date: 12/13/2024 Prepared by: Aly Winchester Exercises [...] ROM progressions Teja Lopez PTA STATE LICENSE, [id number] documented in this encounter [facility] 12-13-2024 History of Present illness Narrative [facility]HABIL[facility] Evaluation Today's Date 12/13/2024 [...] active Premorbid Activity Level: active Social Support: Congregation, social, or cultural considerations to be made [...] Flags: None Comments: Barriers to Care: None Congregation, social, or cultural considerations to be made [...] Notes Eval: 11:32 - 12:10 Therapeutic Exercise (79298) Intervention initial HEP: Parameters stair stretches 3x20 each Intervention seated scoot for knee flexion Parameters quad sets w/ heel prop Intervention SLR Parameters assisted heel slides Intervention sink ex x10 bilat. Parameters Access Code: [email or web address] URL: [email or web address] Date: 12/13/2024 Prepared by: Aly Winchester Exercises [...] with HEP in 1 week. CPT Code 57127 Low 91230 Moderate 17349 High History 0 1-2 3+ Comorbidities: DM, [...] result in the following functional limitations: ADLs/IADLs, superintendent measurement, functional mobility, recreational activities, quality of life, [...] week Duration: 4 weeks Interventions: Therapeutic Exercise (45913), Neuromuscular Re-Education (87055), Manual Therapy (95888), Therapeutic/ Functional Activities (80975), Gait Training (60515), and Vasopneumatic (76000) Rehab Potential: good Patient Education Provided Pt was educated on the benefits of therapy and importance of compliance with sessions and HEP for rehabilitation. Pt was also educated on treatment diagnosis, POC, and frequency/duration of treatment. Aly Winchester, LOULOU State License, [id number] documented in this encounter [facility] 11-07-2024 Instructions Nuha Mosquera APRN.CNP - 11/07/2024 11:37 AM EST 1) No change in medications 2) Keep follow up with Dr. Lugo in February documented in this encounter [facility] 11-07-2024 Note HNO ID: [id number] Author: NUHA MOSQUERA APRN.CNP Service: ? Author Type: Nurse Practitioner Type: Progress Notes Filed: 11/07/2024 11:39 Note Text: VIRTUAL VISIT PROGRESS NOTE This is a virtual visit using [employer] Zoom Video Visit. It required patient-provider interaction for the medical decision making as documented below. I have communicated my name and active licensure. The patient's identity and physical location were verified at the time of this visit. Either the patient or their legal retail sales representative has been informed of the [...] Fam hx-cardiovas dis NEC n/a father, of [place] at 45 Hypothyroid Other and unspecified hyperlipidemia [...] - ICD9: 251.2, (more content not included)... [facility] 11-07-2024 History of Present illness Narrative VIRTUAL VISIT PROGRESS NOTE This is a virtual visit using [employer] Video Visit. It required patient-provider interaction for the medical decision making as documented below. I have communicated my name and active licensure. The patient's identity and physical location were verified at the time of this visit. Either the patient or their legal retail sales representative has been informed of the [...] Fam hx-cardiovas dis NEC n/a father, of [place] at 45 Hypothyroid Other and unspecified hyperlipidemia [...] which included preparing to see the patient, [id number] patient care, completing clinical documentation, obtaining and/or reviewing separately obtained history, performing a medically appropriate examination, counseling and educating the patient/family/caregiver, and ordering medications, tests, or procedures Nuha Mosquera APRN.BURNER SHAFT documented in this encounter [facility] 11-07-2024 Telephone encounter Note Prescription Refill Information [...] Sy LPN November 07, 2024 10:11 AM [facility] 11-07-2024 Miscellaneous Notes Prescription Refill Information The [...] 2024 10:11 AM documented in this encounter [facility] 10-26-2024 Telephone encounter Note Prescription Refill Information [...] Barrow LPN October 26, 2024 12:49 PM [facility] 10-26-2024 Miscellaneous Notes Prescription Refill Information The [...] 2024 12:49 PM documented in this encounter [facility] 10-24-2024 Instructions Nuha Mosquera APRN.CNP - 10/24/2024 10:04 AM EST 1) Cut Metformin ER back to 2 tablets a day 2) Continue levothyroxine, paxil, and metoprolol day of surgery 3) Follow up first week in November documented in this encounter [facility] 10-24-2024 Note HNO ID: [id number] Author: NUHA MOSQUERA APRN.CNP Service: ? Author [...] visit. Either the patient or their legal retail sales representative has been informed of the [...] Fam hx-cardiovas dis NEC n/a father, of [place] at 45 Hypothyroid Other and unspecified hyperlipidemia [...] off glimepiride 2 (more content not included)... [facility] 10-24-2024 History of Present illness Narrative VIRTUAL VISIT PROGRESS NOTE This is a virtual visit using [employer] Video Visit. It required patient-provider interaction for the medical decision making as documented below. I have communicated my name and active licensure. The patient's identity and physical location were verified at the time of this visit. Either the patient or their legal retail sales representative has been informed of the risks and benefits of -- and alternatives to -- treatment through a remote evaluation and consents to proceed with the evaluation remotely. Ncik Lopes is a 53 year old male seen for Problems with blood sugars. HISTORY REVIEWED (electronic chart updated): PAST MEDICAL HISTORY Diagnosis Date Elevated white blood cell count has been reviewed by hematology. will follow periodically Fam hx-cardiovas dis NEC n/a father, of [place] at 45 Hypothyroid Other and unspecified hyperlipidemia [...] complication, without long-term current use of insulin ([facility]) - ICD9: 250.00, ICD10: E11.9 - Controlled - Stop glimepiride - METFORMIN ER 500 MG TABLET,EXTENDED RELEASE 24 HR reduced to 1,000mg daily Nuha Mosquera APRN.RAMIRO There are no Patient Instructions on file for this visit. I spent a total of 15 minutes on the date of the service which included preparing to see the patient, [id number] patient care, completing clinical documentation, obtaining and/or reviewing separately obtained history, performing a medically appropriate examination, counseling and educating the patient/family/caregiver, and ordering medications, tests, or procedures Nuha Mosquera APRN.CNP documented in this encounter [facility] 10-20-2024 Telephone encounter Note See other Page[employer] message Marilu Sanchez MA October 20, 2024 5:34 PM [facility] 10-20-2024 Miscellaneous Notes See other mychart message Marilu Sanchez MA October 20, 2024 5:34 PM documented in this encounter [facility] 10-12-2024 Telephone encounter Note Paperwork completed and returned to [facility]. Confirmation received. Copy sent for scanning. [facility] 10-12-2024 Miscellaneous Notes Paperwork completed and returned to [employer]. Confirmation received. Copy sent for scanning. No paperwork has been received in this office for this patient. I called and spoke with the spouse to inform her of that. She reports this just needs filled out for the last time that Dr. 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 Pt's calling to see if the paperwork from [employer] has been received and if so, if it has been completed. It is for short term disability. It would have come from [employer] via mail or fax. Please review and advise. Danielle Roijas MA documented in this encounter [facility] 10-11-2024 Telephone encounter Note The following approved medication requests have been transmitted electronically. Requested Prescriptions Pending Prescriptions Disp Refills PARoxetine (PAXIL) 40 mg tablet 90 tablet 3 Sig: Take 1 tablet by mouth once daily. Nuha A Suppan, TEA BLENDER.BURNER SHAFT [facility] 10-11-2024 Miscellaneous Notes The following approved medication [...] 2024 7:44 PM documented in this encounter [facility] 10-10-2024 Telephone encounter Note The patient has [...] Parham RN October 10, 2024 7:44 PM [facility] 10-06-2024 Telephone encounter Note No paperwork has been received in this office for this patient. I called and spoke with the spouse to inform her of that. She reports this just needs filled out for the last time that Dr. 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 [facility] 10-05-2024 Telephone encounter Note Pt's calling to see if the paperwork from [employer] has been received and if so, if it has been completed. It is for short term disability. It would have come from [employer] via mail or fax. Please review and advise. Danielle Riojas MA [facility] 10-04-2024 Note HNO ID: [id number] Author: GINGER LUGO MD Service: ? Author [...] done in 2022. Sees Dr Patton at [facility] soon. Shortness of breath: no [...] Abs Lymph 1.00 - 4.00 k/uL 2.36 Pershing% % 5.0 Abs Pershing <0.87 k/uL 0.72 Eosin% % 0.5 Abs [...] Fam hx-cardiovas dis NEC n/a father, of [place] at 45 Hypothyroid Other and unspecified hyperlipidemia [...] Diabetes Maternal Grandmothe (more content not included)... [facility] 10-04-2024 History of Present illness [...] done in 2022. Sees Dr Patton at [facility] soon. Shortness of breath: no new short of breath. Known sleep apnea: Yes. Using cpap. Hx of clotting issues: No. Current bleeding or bruising: No. Sugars are slightly higher that previous but should not pose any issues with clearance. Recent labs: Latest Ref [facility] 08/09/2024 WBC 3.70 - 11.00 k/uL 14.40 [...] Abs Lymph 1.00 - 4.00 k/uL 2.36 Pershing% % 5.0 Abs Pershing <0.87 k/uL 0.72 Eosin% % 0.5 Abs [...] Fam hx-cardiovas dis NEC n/a father, of [place] at 45 Hypothyroid Other and unspecified hyperlipidemia [...] cbc today. Getting cardiac clearance from his physician relations manager. Dvt prophylaxis per surgery. 2. Central sleep [...] stable. . 6. 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 Please let Liliana know once completed. Liliana's number: [phone] Teagan Vergara September 22, 2024 10:44 AM documented in this encounter [facility] 09-22-2024 Telephone encounter Note Patient's Liliana calling in requesting a CD to be made of patient's MRI completed on 05/26/24, and his knee and leg xray on 09/19/2024. Please let Liliana know once completed. Liliana's number: [phone] Teaganadam Guillen Ursula September 22, 2024 10:44 AM [facility] 09-19-2024 Note Addended by: JOSE VARELA on: 09/19/2024 02:27 PM Modules accepted: Level of Service [facility] 09-19-2024 Miscellaneous Notes Addended by: JOSE LOO on: 09/19/2024 02:27 PM Modules accepted: Level of Service documented in this encounter [facility] 09-19-2024 History of Present illness Narrative Images [...] 08/09/2024. Consult to the Endocrinology and Metabolic [place] (MIKAL) recommended prior to surgery. 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 S/P Ptca (Percutaneous [...] Fam hx-cardiovas dis NEC n/a father, of [place] at 45 Hypothyroid Other and unspecified hyperlipidemia [...] which included preparing to see the patient, [id number] patient care, completing clinical documentation, obtaining and/or reviewing separately obtained history, performing a medically appropriate examination, counseling and educating the patient/family/caregiver, ordering medications, tests, or procedures, communicating with other HCPs (not separately reported), independently interpreting results (not separately reported), communicating results to the patient/family/caregiver, and care coordination (not separately reported). documented in this encounter [facility] 09-19-2024 Note HNO ID: [id number] Author: JSOE LOO MD Service: ? Author Type: Physician [...] 08/09/2024. Consult to the Endocrinology and Metabolic [place] (MIKAL) recommended prior to surgery. 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 [facility] 09-19-2024 History of Present illness [...] PATIENT PRESENTS WITH AN IMPLANTABLE OR ATTACHED MAINTENANCE SUPERINTENDENT: No RADIOLOGY DEPARTMENT: General X-ray: Exam(s) Completed: Lower Extremity X-Ray(s): Knee, AP / Lat / Merchant Bilateral and FLEA (Full Length Lower Extremity) PERIPHERAL IV DATA: Not applicable SIGNED BY: RT Christian(R) September 19, 2024 2:00 PM documented in this encounter [facility] 09-19-2024 Note HNO ID: [id number] Author: DARRYN JONES RT(R) Service: Radiology Author [...] PATIENT PRESENTS WITH AN IMPLANTABLE OR ATTACHED MAINTENANCE SUPERINTENDENT: No RADIOLOGY DEPARTMENT: General X-ray: Exam(s) Completed: Lower Extremity X-Ray(s): Knee, AP / Lat / Merchant Bilateral and FLEA (Full Length Lower Extremity) PERIPHERAL IV DATA: Not applicable SIGNED BY: RT Christian(R) September 19, 2024 2:00 PM [facility] 09-15-2024 Note Addended by: NUHA MOSQUERA on: 09/15/2024 01:20 PM Modules accepted: Orders [facility] 09-15-2024 Miscellaneous Notes Addended by: NUHA MOSQUERA on: 09/15/2024 01:20 PM Modules accepted: Orders documented in this encounter [facility] 09-15-2024 Telephone encounter Note Done. Thanks for update [facility] 09-15-2024 Miscellaneous Notes Done. Thanks for update Spouse (Liliana) calls to report that the order for knee immobilizer is not available at [facility]. Liliana reports what they can offer is a reaction web brace (doesn't completely immobilize the knee but offers support). If provider agrees new order would have to be sent to [facility] for reaction web brace. Pended requested order with previous diagnosis for review. Batool Ballesteros RN documented in this encounter [facility] 09-15-2024 Telephone encounter Note Spouse (Liliana) calls to report that the order for knee immobilizer is not available at [facility]. Liliana reports what they can offer is a reaction web brace (doesn't completely immobilize the knee but offers support). If provider agrees new order would have to be sent to [facility] for reaction web brace. Pended requested order with previous diagnosis for review. Batool Ballesteros RN [facility] 09-15-2024 Instructions Nuha Mosquera APRN.CNP - 09/15/2024 11:48 AM EST 1) Off work through Thursday 2) DME request at [facility] for walker and immobilizer 3) Capsaicin topically 2 - 3 times a day, HOT- do not put heating pad on this (use ice) 4) see Dr. 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 will follow periodically Fam hx-cardiovas dis NEC n/a father, of NE at 45 Hypothyroid Other and unspecified hyperlipidemia [...] Nuha Mosquera APRN.RAMIRO documented in this encounter [facility] 09-15-2024 Note HNO ID: [id number] Author: NUHA MOSQUERA APRN.CNP Service: ? 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 will follow periodically Fam hx-cardiovas dis NEC n/a father, of [place] at 45 Hypothyroid Other and unspecified hyperlipidemia [...] Head: Normocephalic. Musculoskeletal: (more content not included)... [facility] 09-09-2024 Telephone encounter Note Patients called in and states her is still having a lot of issues with his knee even after the injection. She states they were told to call as he will need to see a surgeon. Lu Jenkins LPN [facility] 09-09-2024 Miscellaneous Notes Patients called in and states her is still having a lot of issues with his knee even after the injection. She states they were told to call as he will need to see a surgeon. Lu Jenkins LPN documented in this encounter [facility] 08-26-2024 Note HNO ID: [id number] Author: TORSTEN AVILES, DO Service: ? 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 [...] Durolane injection into left knee LOT # [id number] EXP 01/04/2027 Mary Dale MA documented in this encounter [facility] 08-26-2024 Note HNO ID: [id number] Author: MARY DALE MA Service: ? Author Type: Order Builder Loader Type: Progress Notes Filed: 08/26/2024 15:48 Note Text: AMB ROOMING INTAKE FLOWSHEET DATA Pain Pain Level: 8 Pain Location: Knee-Left Description: Aching, Sharp, Stabbing, Stiffness Duration Amount of Time: (ongoing) Frequency: Continuous Intervention/Comfort measure: Exercise, Medication, Other: See comment, Cold (muscle rub) Durolane injection into left knee LOT # [id number] EXP 01/04/2027 Mary Dale MA [facility] 08-25-2024 Telephone encounter Note Patient [...] 02/08/2025 Please advise. Thank you. Jen Young. [facility] 08-25-2024 Miscellaneous Notes Patient has been identified [...] you. Jen Young. documented in this encounter [facility] 08-16-2024 Telephone encounter Note Patient has been authorized for Durolane injection. He has been contacted and scheduled. [facility] 08-16-2024 Miscellaneous Notes Patient has been authorized [...] of insurance card to be uploaded into [employer]. Patient is on blood thinner- NSAID's are [...] section) Patient Name: Nick lopes Appt Date: [facility] code(s) & drug name(s): J7318 radhames Comments: payer policy requires trial of nsaids- no mention in ov note- please advise is nsaid trial has been completed documented in this encounter [facility] 08-12-2024 Telephone encounter Note Patients Liliana phones [...] the approval/denial of injection. Gwendolyn Santiago MA [facility] 08-10-2024 Telephone encounter Note Patient informed and verbalized understanding. Kylie Tran MA [facility] 08-10-2024 Miscellaneous Notes Patient informed and verbalized understanding. Kylie Tran MA White count is slightly up. Likely ok. Call if any s/s of infection.recheck cbc in four weeks. Could be related to steroids. Sugars are rising. Watch diet. Recheck sugars with A1c in three months. documented in this encounter [facility] 08-10-2024 Telephone encounter Note White count is slightly up. Likely ok. Call if any s/s of infection.recheck cbc in four weeks. Could be related to steroids. Sugars are rising. Watch diet. Recheck sugars with A1c in three months. [facility] 08-10-2024 Telephone encounter Note Patient contacted for copy of insurance card to be uploaded into [employer]. [facility] 08-09-2024 History of Present illness Narrative [...] eyes were checked back in summer at [facility]. Folate added back in March. Anemia stable. Due for labs. THYROID: Continues Levothyroxine 125 mcg daily Denies any energy, hair or skin changes. No weight changes. No longer sees Cardiology. HTN: Monitors BP at home. Denies chest pain and shortness of breath Some mild headaches. Denies dizziness Denies palpitations or syncopal episodes No edema JOSIAH: DME: [employer], [place]. Needs new machine and supplies Last PSG [...] Fam hx-cardiovas dis NEC n/a father, of [place] at 45 Hypothyroid Other and unspecified hyperlipidemia [...] Ginger Lugo MD documented in this encounter [facility] 08-09-2024 Note HNO ID: [id number] Author: GINGER LUGO MD Service: ? Author [...] eyes were checked back in summer at [facility]. Folate added back in March. Anemia [...] Fam hx-cardiovas dis NEC n/a father, of [place] at 45 Hypothyroid Other and unspecified hyperlipidemia [...] Tobacco Use Smoking (more content not included)... [facility] 08-08-2024 Telephone encounter Note Patient is on blood thinner- NSAID's are contra-indicated in his situation [facility] 08-05-2024 Telephone encounter Note Additional Clinical Information [...] advise is nsaid trial has been completed [facility] 08-03-2024 Note HNO ID: [id number] Author: TORSTEN AVILES, DO Service: ? 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 [facility] 08-03-2024 History of Present illness [...] Stenosis of Spine Coronary Artery Disease Involving Huslia Coronary Artery of Huslia Heart Without Angina Pectoris S/P Ptca (Percutaneous [...] Fam hx-cardiovas dis NEC n/a father, of [place] at 45 Hypothyroid Other and unspecified hyperlipidemia [...] brace, cane use) documented in this encounter [facility] 08-03-2024 Note HNO ID: [id number] Author: MARY DALE MA Service: ? Author Type: Order Builder Loader Type: Progress Notes Filed: 08/03/2024 15:00 Note Text: AMB ROOMING INTAKE FLOWSHEET DATA Pain Pain Level: 10 Pain Location: Knee-Left Description: Tightness, Aching Duration Amount of Time: (ongoing) Frequency: Continuous Intervention/Comfort measure: Heat, Cold, Other: See comment, Exercise (muscle rubs, knee brace, cane use) [facility] 07-27-2024 Telephone encounter Note The [...] Mann LPN July 27, 2024 7:49 AM [facility] 07-27-2024 Miscellaneous Notes The patient has been [...] 2024 7:49 AM documented in this encounter [facility] 07-25-2024 Telephone encounter Note Patient is not eligible for cortisone injection until after 08/05/2024. [facility] 07-25-2024 Miscellaneous Notes Patient is not eligible [...] walking. would like a call back at [phone]. Lu Jenkins LPN documented in this encounter [facility] 07-25-2024 Telephone encounter Note Patients called in and states he has been having pain in his knee which he is rating a 10 on the pain scale. He is wondering if he is able to get shots or something for the pain as it is causing him to have problems walking. would like a call back at [phone]. Lu Jenkins LPN [facility] 06-24-2024 Telephone encounter Note Forms completed and returned to [employer]. Confirmation received. Copy sent for scanning. [facility]. [facility] 06-24-2024 Miscellaneous Notes Forms completed and returned to [facility]. Confirmation received. Copy sent for scanning. [facility]. Patients returned phone call from Mary. PT is [facility] in [place]. Off work date is 05/13/24. Gwendolyn Santiago [...] completed, Fax form to Dwight Chandler at [phone] Form has been forwarded to Dr. Aviles for signature. Mary Dale MA documented in this encounter [facility] 06-24-2024 Telephone encounter Note Patients returned phone call from Mary. PT is [facility] in [place]. Off work date is 05/13/24. Gwendolyn Santiago MA [facility] 06-24-2024 Telephone encounter Note I called and left a message for the patient to contact the office. Received FMLA paperwork for him. Need to know..... Where is the patient doing his PT so we can get reports. 2. What was the first day not worked? [facility] 06-24-2024 Telephone encounter Note Type of form: FMLA Form received via fax When form is completed, Fax form to Dwight Chandler at [phone] Form has been forwarded to Dr. Aviles for signature. Mary Dale MA [facility] 06-16-2024 Telephone encounter Note Letter completed and sent to patient in [employer] as requested. [facility] 06-16-2024 Miscellaneous Notes Letter completed and sent to patient in [employer] as requested. Liliana called. Verified name and date of . Patient is doing physical therapy. Physical therapy does not recommend patient to return to work until it is completed. It is projected to finish July 15, 2024. His currently only off of work through June 22, 2024 and needs extension written. Okay to send extension via [employer]. Shayna Romero LPN documented in this encounter [facility] 06-16-2024 Telephone encounter Note Liliana called. Verified name and date of . Patient is doing physical therapy. Physical therapy does not recommend patient to return to work until it is completed. It is projected to finish July 15, 2024. His currently only off of work through June 22, 2024 and needs extension written. Okay to send extension via [employer]. Shayna Romero LPN [facility] 06-01-2024 Telephone encounter Note Letter written in My chart encounter. [facility] 06-01-2024 Miscellaneous Notes Letter written in My [...] pain Please advise documented in this encounter [facility] 05-31-2024 Telephone encounter Note Letter written and sent through my chart per patient's request. [facility] 05-31-2024 Miscellaneous Notes Letter written and sent through my chart per patient's request. documented in this encounter [facility] 05-31-2024 Telephone encounter Note Patients called in requesting information regarding what needs step by be and if he can have note to either write him off work longer and a note to send him back to work. Please advise. Sienna Pina LPN [facility] Work Phone: 05-30-2024 Telephone encounter Note Patients called requesting a work note To return to work or to be off longer with PT because he's still in pain Please advise [facility] Work Phone: 05-29-2024 Telephone encounter Note notified pt. Yojana Gonsales MA [facility] 05-29-2024 Miscellaneous Notes notified pt. Yojana Gonsales MA documented in this encounter [facility] 05-26-2024 History of Present illness Narrative Radiology [...] PATIENT PRESENTS WITH AN IMPLANTABLE OR ATTACHED MAINTENANCE SUPERINTENDENT: No RADIOLOGY DEPARTMENT: MR; Exam(s) Completed: Lower MSK: Knee, left PERIPHERAL IV DATA: Not applicable SIGNED BY: RT Rina(R) May 26, 2024 8:06 AM documented in this encounter [facility] 05-23-2024 Telephone encounter Note Prescription Refill Information [...] Tse LPN May 23, 2024 9:25 AM [facility] 05-23-2024 Telephone encounter Note Prescription Refill Information [...] Tse LPN May 23, 2024 9:24 AM [facility] 05-23-2024 Miscellaneous Notes Prescription Refill Information The [...] 2024 9:24 AM documented in this encounter [facility] 05-23-2024 Miscellaneous Notes Prescription Refill Information The [...] 2024 9:25 AM documented in this encounter [facility] 05-16-2024 Telephone encounter Note See Project Airplanehart message [facility] 05-16-2024 Miscellaneous Notes See L3t message documented in this encounter [facility] 05-06-2024 History of Present illness Narrative Associated [...] Stenosis of Spine Coronary 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 Message from Dr. Aviles given. Appointment has been moved up to 05/06/2024. [facility] 05-04-2024 Miscellaneous Notes I called and spoke [...] for pain. He can be reached at [phone]. Jacqueline Griffin RN May 04, 2024 3:00 PM documented in this encounter [facility] 05-04-2024 Telephone encounter Note Patient called, verified [...] for pain. He can be reached at [phone]. Jacqueline Griffin RN May 04, 2024 3:00 PM [facility] 05-04-2024 History of Present illness Narrative Has already seen Dr Aviles. He already has a message out to him and he states he is going to send in a medicine for him and is seeing him again on the . I will defer to him. No charge for today and no exam done. documented in this encounter [facility] 04-14-2024 History of Present illness Narrative FOLLOW [...] (H) 4.3 - 5.6 % Final Comment: [place] [employer] guidelines indicate that patients with [...] Fam hx-cardiovas dis NEC Comment: father, of NE at 45 No date: Hypothyroid Sep 14: [...] Sienna Pina LPN documented in this encounter [facility] 04-14-2024 History of Present illness Narrative Radiology [...] PATIENT PRESENTS WITH AN IMPLANTABLE OR ATTACHED MAINTENANCE SUPERINTENDENT: No RADIOLOGY DEPARTMENT: General X-ray: Exam(s) Completed: Lower Extremity X-Ray(s): Toes, Right PERIPHERAL IV DATA: Not applicable SIGNED BY: RT Vargas(R) April 14, 2024 11:10 AM documented in this encounter [facility] 04-07-2024 Telephone encounter Note View External Cardiology - Echo [ID [id number]] View External Cardiology - Cardiac Cath [ID [id number]] Scan on 10/20/2023 11:35 AM by ProviderVeronica PA-C: Consultation - Cardiology Scan on 10/20/2023 11:35 AM by ProviderVeronica PA-C: Discharge Summary I did not find anything from [facility], other than the information from his inpatient stay. Jacqueline Griffin RN [facility] 04-07-2024 Miscellaneous Notes View External Cardiology - Echo [ID [id number]] View External Cardiology - Cardiac Cath [ID [id number]] Scan on 10/20/2023 11:35 AM by ProviderVeronica [...] [facility]ada ( I think) Thanks! Erin Frankel APRN.[employer] documented in this encounter [facility] 04-06-2024 Telephone encounter Note Faxed as requested. [facility] 04-06-2024 Miscellaneous Notes Faxed as requested. Type of form: Long-term Disability Form received via fax When form is completed, Fax form to [phone] Form has been forwarded to Physician Desk: Dr. Pema Tran MA documented in this encounter [facility] 04-06-2024 History of Present illness Narrative Associated [...] Stenosis of Spine Coronary Artery Disease Involving Huslia Coronary Artery of Huslia Heart Without Angina Pectoris S/P Ptca (Percutaneous [...] Fam hx-cardiovas dis NEC Comment: father, of NE at 45 No date: Hypothyroid Sep 14: [...] knee joint Informed Consent Consent Obtained: Verbal [place] Protocol SIGN IN TIME OUT 04/06/2024 2:17 [...] pain - [facility] Pain Pain Level: 5 Pain Location: Knee-Left Description: Sharp, Aching Duration Amount of Time: 2 Duration Units: Weeks Frequency: Continuous Intervention/Comfort measure: Medication Patient states about 2 he fell and landed on his left knee. Seen by Dr Selby and given Tramadol for the pain and taking as needed with Tylenol. X-rays done 03/28/24. documented in this encounter [facility] 04-06-2024 Telephone encounter Note Type of form: Long-term Disability Form received via fax When form is completed, Fax form to [phone] Form has been forwarded to Physician Desk: Dr. Pema Tran MA [facility] 04-04-2024 Telephone encounter Note Patient's spouse Liliana returned call and given provider's message regarding patient. Tracie Cardenas RN [facility] 04-04-2024 Miscellaneous Notes Patient's spouse Liliana returned call and given provider's message regarding patient. Tracie Cardenas RN Left message to call and speak with nurse. Sugars are much better. Borderline anemia Is stable. Folate, a vitamin is low, which can cause anemia. Add folate. Rx sent. Recheck labs in one month documented in this encounter [facility] 04-04-2024 Telephone encounter Note Left message to call and speak with nurse. [facility] 04-04-2024 Telephone encounter Note Sugars are much better. Borderline anemia Is stable. Folate, a vitamin is low, which can cause anemia. Add folate. Rx sent. Recheck labs in one month [facility] 04-01-2024 History of Present illness Narrative Per Dr. Beasley, Nick was provided with Post Op shoe, size large, and instructed/educated in its application, wear, and care. All questions were answered, and patient was able to demonstrate competence with the necessary skills to utilize the above equipment. Juliana Orona, RN documented in this encounter [facility] 04-01-2024 Telephone encounter Note Received phone call [...] see patient at follow-up Sam Beasley DPM [facility] 04-01-2024 Miscellaneous Notes Received phone call from [...] Sam Beasley DPM documented in this encounter [facility] 04-01-2024 Telephone encounter Note Can we pull nick last cardiology visit and most recent echo/stress test/cath? He follows with [facility] ( I think) Thanks! Erin Frankel APRN.BURNER [employer] [facility] Work Phone: 03-30-2024 Telephone encounter Note Called patient to inform him of wound culture. Staph and pseudomonas growing. Is on augmentin. Will continue. Will call in cipro. Discussed risk of tendon rupture. Avoid strenous exercis. All questions answer. Patient satisifed with care Sam Beasley DPM [facility] 03-30-2024 Miscellaneous Notes Called patient to inform him of wound culture. Staph and pseudomonas growing. Is on augmentin. Will continue. Will call in cipro. Discussed risk of tendon rupture. Avoid strenous exercis. All questions answer. Patient satisifed with care Sam Beasley DPM documented in this encounter [facility] 03-29-2024 History of Present illness Narrative Radiology [...] PATIENT PRESENTS WITH AN IMPLANTABLE OR ATTACHED MAINTENANCE SUPERINTENDENT: No RADIOLOGY DEPARTMENT: Ultrasound PERIPHERAL IV DATA: Not applicable SIGNED BY: Araseli Linda RDMS, RVT March 29, 2024 4:13 PM documented in this encounter [facility] 03-29-2024 Note HNO ID: [id number] Author: ARASELI LINDA RT(R) Service: ? Author [...] PATIENT PRESENTS WITH AN IMPLANTABLE OR ATTACHED MAINTENANCE SUPERINTENDENT: No RADIOLOGY DEPARTMENT: Ultrasound PERIPHERAL IV DATA: Not applicable SIGNED BY: Araseli Linda RDMS, RVT March 29, 2024 4:13 PM [facility] 03-28-2024 History of Present illness [...] PATIENT PRESENTS WITH AN IMPLANTABLE OR ATTACHED MAINTENANCE SUPERINTENDENT: No RADIOLOGY DEPARTMENT: General X-ray: Exam(s) Completed: Lower Extremity X-Ray(s): Knee, AP / Lat / Tunne / Merchant Left and Wt. Bearing and Tibia Fibula, Left PERIPHERAL IV DATA: Not applicable SIGNED BY: RT Mayra(R) March 28, 2024 7:10 PM documented in this encounter [facility] 03-28-2024 History of Present illness Narrative Patient [...] Fam hx-cardiovas dis NEC n/a father, of NE at 45 Hypothyroid Other and unspecified hyperlipidemia [...] Ginger Lugo MD documented in this encounter [facility] 03-28-2024 History of Present illness Narrative Radiology [...] PATIENT PRESENTS WITH AN IMPLANTABLE OR ATTACHED MAINTENANCE SUPERINTENDENT: No RADIOLOGY DEPARTMENT: General X-ray: Exam(s) Completed: Lower Extremity X-Ray(s): Toes, Right PERIPHERAL IV DATA: Not applicable SIGNED BY: RT Vargas(R) March 28, 2024 11:03 AM documented in this encounter [facility] 03-28-2024 Instructions Sienna Pina LPN - 03/28/2024 [...] as well if you have any questions/concerns [phone], ask for Podiatry Nurse documented in this encounter [facility] 03-28-2024 History of Present illness Narrative UNIVERSAL [...] Fam hx-cardiovas dis NEC n/a father, of NE at 45 Hypothyroid Other and unspecified hyperlipidemia [...] Objective: Patient presents to clinic ambulating in [facility] Constitutional: Pt is a well developed 53 [...] Sienna Pina LPN documented in this encounter [facility] 03-14-2024 Telephone encounter Note Needs seen by one of us or urgent care [facility] 03-14-2024 Miscellaneous Notes Needs seen by one of us or urgent care [facility]: 10/30/23-CDIFF with PCP Yissel Correa MA documented in this encounter [facility] 03-14-2024 Telephone encounter Note [facility]: 10/30/23-CDIFF with PCP Yissel Correa MA [facility] 02-11-2024 Telephone encounter Note Prescription Refill Information [...] Perez LPN February 11, 2024 9:17 AM [facility] 02-11-2024 Miscellaneous Notes Prescription Refill Information The [...] 2024 9:17 AM documented in this encounter [facility] 01-29-2024 Telephone encounter Note Patient reports sore [...] headaches. 8. : NA Protocols used: Sore Mfkmsz-NXLWZ-MY [facility] 01-29-2024 Miscellaneous Notes Patient reports sore throat [...] headaches. 8. : NA Protocols used: Sore Arujbs-WRFVW-QY Left vm for patient to return call to triage nurse, for questions about his symptoms: cough, vomiting, sore throat. Patient scheduled an appt with Rodrigo Retana for 01-29-24 and may need a sooner appt. documented in this encounter [facility] 01-29-2024 Telephone encounter Note Left vm for patient to return call to triage nurse, for questions about his symptoms: cough, vomiting, sore throat. Patient scheduled an appt with Rodrigo Retana for 01-29-24 and may need a sooner appt. [facility] 01-20-2024 Telephone encounter Note Prescription Refill Information [...] Sy LPN January 20, 2024 9:08 AM [facility] 01-20-2024 Miscellaneous Notes Prescription Refill Information The [...] was split into 30 day scripts? Asha yS LPN January 20, 2024 9:08 AM documented in this encounter [facility] 12-07-2023 Miscellaneous Notes Patient MyChart message requesting the following refill Refill(s) Requested: Requested Prescriptions Pending Prescriptions Disp Refills metoprolol succinate ER (TOPROL XL) 50 mg 24 hr tablet 90 tablet 3 Sig: Take 1 tablet by mouth once daily. ALLERGIES No Known Allergies (home) [phone] (work) [phone] (cell) Last Office Visit Date: 10/30/2023 Last [facility] Visit: Visit date not found Future Appointment: 01/15/2024 The patients preferred pharmacy has been captured for this encounter? yes Request is for script(s) to be escript to pharmacy. Linda Bullock LPN documented in this encounter [facility] 10-30-2023 History of Present illness Narrative Patient presents with: Hospital F/U HPI: Patient presents today for office visit for hospital follow up. Present to [facility] ER on 10/07/23 with chest pain. [...] Fam hx-cardiovas dis NEC n/a father, of NE at 45 Hypothyroid Other and unspecified hyperlipidemia [...] Ginger Lugo MD documented in this encounter [facility] 10-29-2023 History of Present illness Narrative Nick [...] Diarrhea- Colonoscopy scheduled with Dr. Navarro at [facility] on 11/30/2023 at 10 AM. Abilio Gong CNP documented in this encounter [facility] 10-27-2023 Miscellaneous Notes Patient has been identified [...] care: 10/30/2023 Please advise. Thank you. [facility]. documented in this encounter [facility] 10-26-2023 Miscellaneous Notes Pt notified. He verbalized understanding. Ronnie Barrow LPN Let him know he has a slight anemia. May not be significant. Recheck labs in two weeks documented in this encounter [facility] 10-24-2023 History of Present illness Narrative Chief Complaint Patient presents with: Abdominal Pain Diarrhea HPI Nick Lopes is a 52 year old male who presents here today for abdominal pain and diarrhea. Pt was seen 10/16/23 by Hamilton Mosquera for hospital follow up from [facility] for chest pain and C-diff colitis. Heart cath was negative. Was treated for his positive c diff we had found when he was hospitalized at [facility]. They gave him vanco orally for [...] Fam hx-cardiovas dis NEC n/a father, of NE at 45 Hypothyroid Other and unspecified hyperlipidemia [...] 09/25/2023 1.90 Monocytes % 09/25/2023 4.8 Abs Pershing 09/25/2023 0.41 Eosinophils % 09/25/2023 1.9 Abs [...] Ginger Lugo MD documented in this encounter [facility] 10-21-2023 Miscellaneous Notes Pt's Alyson returned call. [...] am if he wants to come to [place] in am Please see notes below. Pt has been seen for diarrhea but is not resolving and having upper abd pain. Pt has an appt with a GI doctor in [place]. Dr. Alexander Navarro next the . Pt [...] written above. 12. : n/a Protocols used: Cjywraui-SPZDN-NY documented in this encounter [facility] 10-21-2023 Miscellaneous Notes See triage note 10/21/23 documented in this encounter [facility] 10-21-2023 Miscellaneous Notes Pt returned call and is aware. Called and left a voicemail for the patient to call back and ask for a nurse to receive the providers message. Sent [employer] as well. Images from the original note were not included. Nuha Mosquera APRN.CNS P Wstr Fp Suppan Pool Please let pt. Know that C Difficile has resolved. documented in this encounter [facility] 10-20-2023 Miscellaneous Notes C. difficile PCR was negative. Nursing pool to let patient know. documented in this encounter [facility] 10-16-2023 Instructions Nuha Mosquera APRN.CNS - 10/16/2023 1:31 PM EST 1) Continue vancomycin through Thursday. 2) Bring stool specimen in on Thursday 3) Get GI appointment next week- prefers [facility] 4) Off work through next Thursday and this may change 5) Follow up in 3 month documented in this encounter [facility] 10-16-2023 History of Present illness Narrative This [...] Fam hx-cardiovas dis NEC n/a father, of NE at 45 Hypothyroid Other and unspecified hyperlipidemia [...] as needed for worsening/no improvement. Nuha Mosquera APRN.FISHER HAND LINE The patient indicates understanding of these issues and agrees with the plan. documented in this encounter [facility] 10-09-2023 Discharge summary Note Date/Time October 09, 2023 2:20pm [facility] Medical Records Department [address] [place] [address] Discharge Summary 10/09/23 1420 MR#: [id number] Acct: [id number] Name: ROMEL LOPES Rep #:[id number] : 1970 52 From: Gerardo Watkins DO PCP: Dr. Ginger Lugo MD Status:ADM I NO Location: [place] [address] Providers Date of Admission: 10/07/23 Date of [...] was seen in the emergency room at [facility] with complaints of precordial chest pain, he [...] % (Auto) 62.1, Lymph % (Auto) 27.9, Pershing % (Auto) 6.1, Eos % (Auto) 2.6, [...] (Appointment is Beau Mosquera NWinstonPWinston) Lebron Mackenzie TOPOGRAPHICAL DRAFTER, TOPOGRAPHICAL DRAFTER-C [Med Staff - Adv Practice Prof] - 11/09/23 10:00 am Disposition Disposition (needs filled in before D/C Order can be placed): Home, Self Care Charges/Coding Visit Charges Inpatient E&M: 32696 Disch Hosp >30min 10/09/23 1514 <Electronically signed by Gerardo Watkins DO> Cosigner Signature (if applicable): CC: Dr. Gerardo Watkins DO; Dr. Ginger Lugo MD~ Signed [facility] Work Phone: 1(413) 137-201202-02-2024 Discharge summary Author Gerardo Watkins [facility] October 09, 2023 2:19pm Note Date/Time October 09, 2023 2 :14pm [facility] Medical Records Department [address] [place] [address] Instructions for Home/Discharge Instructions 10/09/23 1413 MR#: [id number] Acct: [id number] Name: ROMEL LOPES Rep #:[id number] : 1970 52 From: Gerardo Watkins DO [...] - Within 1 Month Lebron Mackenzie NP, TOPOGRAPHICAL DRAFTER-C [Med Staff - [facility] Practice Prof] - 11/09/23 10:00 am Disposition Disposition (needs filled in before D/C Order can be placed): Home, Self Care 10/09/23 1419<Electronically signed by Gerardo Watkins DO>Gerardo Watkins DO CC: Dr. Jude Mckeon MD; Dr. Ginger Lugo MD ~ Signed [facility] Work Phone: 1(210) 629-567302-02-2024 Procedure [facility] 10-08-2023 Progress note Author Gerardo Watkins [facility] October 08, 2023 7:00pm Note Date/Time October 08, 2023 7 :00pm [facility] Medical Records Department [address] [place] [address] [place] [address] Progress Note - Hospitalist 10/08/23 1857 MR#: [id number] Acct: [id number] Name: ROMEL LOPES Rep #:[id number] : 1970 52 From: Gerardo Watkins DO PCP: Dr. Ginger Luog MD Status:ADM I NO Location: [place] [address] Reason for Visit Reason for Visit: Diagnoses [...] 35 minutes Charges/Coding Visit Charges Inpatient E&M: 04861 Subs Hosp L2 10/08/23 1900 <Electronically signed by Gerardo Watkins DO> Cosigner Signature (if applicable): CC: ~ Signed [facility] Work Phone: 1(623) 781-210102-01-2024 Consult note Author Jude Mckeon [facility] October 08, 2023 3:45pm Note Date/Time October 08, 2023 2 :09pm [facility] Medical Records Department [address] [place] [address] Consultation - Cardiology 10/08/23 1403 MR#: [id number] Acct: [id number] Name: ROMEL LOPES Rep #:[id number] : 1970 52 From: Jude Mckeon MD PCP: Dr. Ginger Lugo MD Status:ADM I NO Location: [place] [address]- 1 Documented by User: Hanny VALENTIN, PA 10/08/23 14:19 Assessment & Plan Assessment/Plan (1) Chest pain: (2) History of coronary artery stent placement: (3) Essential hypertension: (4) Hyperlipidemia: HPI Consult Data Date of Consult: 10/08/23 HPI Narrative HPI Narrative: ROMEL LOPES is a 52 M who presented to [facility] ER on 10/07/23 with CP. He [...] a hx of HTN,HL, JOSIAH and DM. [facility] Medical History Anxiety Atherosclerosis of coronary artery of squaxin heart without angina pectoris BiPAP (biphasic positive [...] is set up for tomorrow. Jude Mckeon MD,FAC,[facility] HPI Consult Data Date of Consult: 10/08/23 [facility] Medical History Anxiety Atherosclerosis of coronary artery of squaxin heart without angina pectoris BiPAP (biphasic positive [...] Mckeon MD; Dr. Ginger Lugo MD~ Signed [facility] Work Phone: 1(777) 767-956502-01-2024 History and physical note Author Gerardo Watkins [facility] October 08, 2023 1:05pm Note Date/Time October 08, 2023 1 2:58pm [facility] Medical Records Department [address] [place] [address] H&P Exam - Hospitalist 10/08/23 1254 MR#: [id number] Acct: [id number] Name: ROMEL LOPES Rep #:[id number] : 1970 52 From: Gerardo Watkins DO PCP: Dr. Ginger Lugo MD Status:ADM I NO [facility] HPI - General General Date of Admission: 10/07/23 Date of Service: 10/07/23 Chief Complaint: Chest pain HPI Narrative ROMEL LOPES, is a 52 M who presents to the emergency room at [facility] with complaints of substernal chest pain that [...] will be seen in consultation by cardiology. [facility] Medical History Anxiety Atherosclerosis of coronary artery of squaxin heart without angina pectoris BiPAP (biphasic positive [...] 55 minutes Charges/Coding Visit Charges Inpatient E&M: 19758 Init Hosp L2 10/08/23 1305 <Electronically signed by Gerardo Watkins DO> Cosigner Signature (if applicable): CC: Dr. Gerardo Watkins DO; Dr. Ginger Lugo MD~ Signed [facility] Work Phone: 1(257) 613-802702-01-2024 Miscellaneous Notes* Telephone Encounter - Marilu Sanchez [...] know if he was admitted-was sent to [facility] ER [facility] Discharge summary Author Remus Ungur [facility] October 07, 2023 3:56pm Note Date/Time October 07, 2023 9 :21am [facility] Medical Records Department [address] [place] [address] Emergency Department Summary 10/07/23 MR#: [id number] Acct: [id number] Name: ROMEL LOPES Rep #:[id number] : 1970 52 From: Fernandez Bryant DO PCP: Dr. Ginger Lugo MD Status:ADM I NO Location: [place] [address] HPI History of Present Illness Chief Complaint: [...] in the office. Patient takes daily Plavix. [facility] Medical History Anxiety Atherosclerosis of coronary artery of squaxin heart without angina pectoris BiPAP (biphasic positive [...] line established on arrival. 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 His PCP gave him 4 baby aspirin. [...] (Auto) 71.4 H Lymph % (Auto) 19.8 Pershing % (Auto) 5.4 Eos % (Auto) 2.4 [...] Chest pain Disposition Disposition: Acute Care Hospital [facility] Discharge Date/Time: 10/07/23 11:36 What to do if you have Problems For any increased pain, shortness of breath, bleeding, nausea or vomiting, chestpain, or any unexpected problems, contact your Primary Care Provider. Call [facility] ([phone]) or report to the closest Emergency Room. Call 911 if necessary. 10/07/23 1556 <Electronically signed by Fernandez Bryant DO> Cosigner Signature (if applicable): CC: Dr. Ginger Lugo MD ~ Signed [facility] Work Phone: 1(808) 109-399111-13-2023 Miscellaneous Notes* Telephone Encounter - Elyse Seals [...] 07/24/23 Elyse Seals MA [facility] Miscellaneous Notes* Telephone Encounter - Pat Tse LPN - 07/04/2023 8:16 AM EDT [facility]-03/30/23 Labs-03/30/23 NOV-07/24/23 [facility] History of Present illness NarrativePatient is here for 1 week f/u w/ PSA. Most recent PSA was 0.19 on 04/29. He was seen last week for ER f/u. CT was done 10/07/22 and was normal from standpoint. CT at [facility] showed mild perinephricstranding but no stones or obstruction. .Urine cx was sent last week that did come back positive. .He was given Augmentin on Thursday for a positive Cx and feels much better...ED is mild..[facility] Work Phone: 1(464) 864-124907-24-2023 History of Present illness Narrative* Ginger Lugo MD - 03/30/2023 9:23 AM EDT No chief complaint on file. HPI: Patient presents today for office visit for follow up. HOSPITAL/ER FOLLOW UP: Reason for visit: fever, abd pain Which facility: [facility] Date of visit: 03/18/23 Discharge: 03/22/23 [...] Fam hx-cardiovas dis NEC n/a father, of NE at 45 Hypothyroid Other and unspecified hyperlipidemia [...] stable. Ginger Lugo MD documented in this encounterKindred Hospital [facility]ima07-16-2023 Discharge summary Author Artem Gonzales [facility] March 22, 2023 10:19am Note Date/Time March 22, 2023 10:1 5am [facility] Medical Records Department [address] [place] [address] Discharge Summary 03/22/23 0732 MR#: [id number] Acct: [id number] Name: ROMEL LOPES Rep #:[id number] : 1970 52 From: Artem Little PCP: Dr. Ginger Lugo MD Status:ADM I N Location: [place] [address] Providers Date of Admission: 03/18/23 Primary Care [...] until 03/29/2023 as recommended by infectious disease senior environmental consultant. Patient not able to go take [...] weekly bmp, cbc, and LFT. Fax to [phone] sennosides-docusate sodium [Stool Softener-Stimulant Laxat] 8.6-50 mg [...] 3 days. Referrals / Follow Up: Paulie [facility] [Other] - 03/23/23 12:00 pm Harpreet Viramontes MD [Med Staff - Active Staff] - Within 2 Weeks Sen Guzman MD [Med Staff - Active Staff] - Within 1 Month (as needed for pyelonephritis/UTI.) Disposition Disposition (needs filled in before D/C Order can be placed): Home, Self Care Charges/Coding Visit Charges Inpatient E&M: 96542 Disch Hosp >30min 03/22/23 1019 <Electronically signed by Artem Gonzales MD> Cosigner Signature (if applicable): CC: Dr. Artem Gonzales MD; Dr. Ginger Lugo MD~ Signed [facility] Work Phone: 1(230) 370-385707-16-2023 Discharge summary Author Artem Gonzales [facility] March 22, 2023 7:32am Note Date/Time March 22, 2023 7:29 am [facility] Medical Records Department [address] [place] [address] Instructions for Home/Discharge Instructions 03/22/23 0728 MR#: [id number] Acct: [id number] Name: ROMEL LOPES Rep #:[id number] : 1970 52 From: Artem Little PCP: [...] weekly bmp, cbc, and LFT. Fax to [phone] sennosides-docusate sodium [Stool Softener-Stimulant Laxat] 8.6-50 mg [...] MD; Dr. Ginger Lugo MD ~ Signed [facility] Work Phone: 1(111) 635-304607-15-2023 Progress note Author [facility] March 21, 2023 1:24pm Note Date/Time March 21, 2023 1:24 pm [facility] Medical Records Department [address] [place] [address] Progress Note - Hospitalist 03/21/23 0806 MR#: [id number] Acct: [id number] Name: ROMEL LOPES Rep #:[id number] : 1970 52 From: Artem Little PCP: Dr. Ginger Lugo MD Status:ADM I N Location: [place] [address] Reason for Visit Reason for Visit: Diagnoses [...] Neut % (Auto) 65.2, Lymph % (Auto) 21.0,Pershing % (Auto) 11.5 H, Eos % (Auto) [...] obstructive uropathy. Charges/Coding Visit Charges Inpatient E&M: 78872 Subs Hosp L2 03/21/23 1324 <Electronically signed by Artem Gonzales MD> Cosigner Signature (if applicable): CC: ~ Signed [facility] Work Phone: 1(851) 216-358707-14-2023 Progress note Author Artem Gonzales [facility] March 20, 2023 1:22pm Note Date/Time March 20, 2023 9:26 am [facility] Medical Records Department [address] [address] Progress Note - Hospitalist 03/20/2325 MR#: [id number] Acct: [id number] Name: ROMEL LOPES Rep #:[id number] : 1970 52 From: Artem Little PCP: Dr. Ginger Lugo MD Status:ADM I N Location: [place] [address] Reason for Visit Reason for Visit: Diagnoses [...] 76.9 H, Lymph % (Auto) 11.8 L, Pershing % (Auto) 10.2 H, Eos % (Auto) [...] Neut % (Auto) 65.3, Lymph % (Auto) 20.9,Pershing % (Auto) 12.1 H, Eos % (Auto) [...] obstructive uropathy. Charges/Coding Visit Charges Inpatient E&M: 37299 Subs Hosp L2 03/20/23 1322 <Electronically signed by Artem Gonzales MD> Cosigner Signature (if applicable): CC: ~ Signed [facility] Work Phone: [phone]) [phone] Consult note Author Sen Guzman [facility] March 20, 2023 11:39am Note Date/Time March 20, 2023 11:3 9am [facility] Medical Records Department [address] [place] [address] Consultation - Infectious Dx 03/20/23 1134 MR#: [id number] Acct: [id number] Name: ROMEL LOPES Rep #:[id number] : 1970 52 From: Sen crawford MD PCP: Dr. Ginger Lugo MD Status:ADM I N Location: [place] [address] Assessment & Plan Assessment/Plan (1) Pyelonephritis: PLAN: Ucx with esbl ecoli. Now on meropenem, feeling better. Will d/c ceftriaxone order. Plan for discharge will be 9 more days [facility] Will [facility], thank you (2) Infection due [...] performed and neg except as noted above. [facility] Medical History Anxiety Atherosclerosis of coronary artery of squaxin heart without angina pectoris BiPAP (biphasic positive [...] Neut % (Auto) 65.3, Lymph % (Auto) 20.9,Pershing % (Auto) 12.1 H, Eos % (Auto) [...] Guzman MD; Dr. Ginger Lugo MD~ Signed [facility] Work Phone: 1(490) 706-839807-13-2023 Progress note Author [facility] March 19, 2023 1:59pm Note Date/Time March 19, 2023 9:44 am [facility] Medical Records Department [address] [place] [address] Progress Note - Hospitalist 03/19/23 0940 MR#: [id number] Acct: [id number] Name: ROMEL LOPES Rep #:[id number] : 1970 52 From: Artem Little PCP: Dr. Ginger Lugo MD Status:ADM I N Location: [place] [address] Reason for Visit Reason for Visit: Diagnoses [...] obstructive uropathy. Charges/Coding Visit Charges Inpatient E&M: 94075 Subs Hosp L2 03/19/23 6219 <Electronically signed by Artem Gonzales MD> Cosigner Signature (if applicable): CC: ~ Signed [facility] Work Phone: [phone]) 225-701607-12-2023 Consult note Author Harpreet Viramontes [facility] March 18, 2023 3:24pm Note Date/Time March 18, 2023 3:24 pm [facility] Medical Records Department [address] [place] [address] Consultation - Urology 03/18/23 1521 MR#: [id number] Acct: [id number] Name: ROMEL LOPES Rep #:[id number] : 1970 52 From: Harpreet Viramontes MD PCP: Dr. Ginger Lugo MD Status:ADM I N Location: [place] [address] Assessment & Plan Assessment/Plan (1) Pyelonephritis: PLAN: [...] does have multiple medical problems as well. [facility] Medical History Anxiety Atherosclerosis of coronary artery of squaxin heart without angina pectoris BiPAP (biphasic positive [...] 84.4 H, Lymph % (Auto) 6.4 L, Pershing % (Auto) 8.2, Eos % (Auto) 0.0, [...] Clarity Cloudy, Urine pH 5.0, Ur Specific [place] 1.020, Urine Protein 500 H, Urine Glucose [...] (Auto) 79.3 H, Lymph % (Auto)8.9 L, Pershing % (Auto) 10.8 H, Eos % (Auto) [...] Viramontes MD; Dr. Ginger Lugo MD~ Signed [facility] Work Phone: [phone]) 841-680307-12-2023 Progress note Author Artem Gonzales [facility] March 18, 2023 2:25pm Note Date/Time March 18, 2023 8:16 am [facility] Medical Records Department [address] [place] [address] Progress Note - Hospitalist 03/18/23 0807 MR#: [id number] Acct: [id number] Name: ROMEL LOPES Rep #:[id number] : 1970 52 From: Artem Little PCP: Dr. Ginger Lugo MD Status:ADM I N Location: [place] [address] Reason for Visit Reason for Visit: Diagnoses [...] 84.4 H, Lymph % (Auto) 6.4 L, Pershing % (Auto) 8.2, Eos % (Auto) 0.0, [...] Clarity Cloudy, Urine pH 5.0, Ur Specific [place] 1.020, Urine Protein 500 H, Urine Glucose [...] (Auto) 79.3 H, Lymph % (Auto)8.9 L, Pershing % (Auto) 10.8 H, Eos % (Auto) [...] obstructive uropathy. Charges/Coding Visit Charges Inpatient E&M: 66625 Subs Hosp L2 03/18/23 8021 <Electronically signed by Artem Gonzales MD> Cosigner Signature (if applicable): CC: ~ Signed [facility] Work Phone: [phone]) 779-663607-12-2023 History and physical note Author Hiral Rodriguez [facility] March 18, 2023 1:48am Note Date/Time March 18, 2023 12:3 9am [facility] Medical Records Department [address] [place] [address] H&P Exam - Hospitalist 03/18/23 0033 MR#: [id number] Acct: [id number] Name: ROMEL LOPES Rep #:[id number] : 1970 52 From: Hiral Rodriguez MD PCP: Dr. Ginger Lugo MD Status:ADM I N Location: [place] [address] HPI - General General Date of Admission: 03/18/23 Date of Service: 03/18/23 Chief Complaint: Abdominal pain, flank pain, N/V HPI Narrative The patient is a 52 y/o M w/ PMHx: Anxiety and Depression, Morbid Obesity, Hypothyroidism, CAD status post PCI, HTN, HLD, JOSIAH on BIPAP, Depression and Anxiety, Former tobacco use, Diabetes mellitus type II who presents to the [facility] ED on 03/18/23 with history of [...] the ED included CBC with WBC 18.7, mafeqypxku71.5, platelet 219 with left shift, CMP with sodium 131, potassium 3.4, qitahuqm10, BUN/creat 19/1.88, glucose 143, hepatic profile not [...] but is pending upon evaluation of patient. [facility] Medical History Anxiety Atherosclerosis of coronary artery of squaxin heart without angina pectoris BiPAP (biphasic positive [...] 84.4 H, Lymph % (Auto) 6.4 L, Pershing % (Auto) 8.2, Eos % (Auto) 0.0, [...] Clarity Cloudy, Urine pH 5.0, Ur Specific [place] 1.020, Urine Protein 500 H, Urine Glucose [...] mellitus type II who presents to the [facility] ED on 03/18/23 with history of [...] 75 minutes. Charges/Coding Visit Charges Inpatient E&M: 93484 Init Hosp L3 03/18/23 0148 <Electronically signed by Hiral Rodriguez MD> Cosigner Signature (if applicable): CC: Dr. Hiral Rodriguez MD; Dr. Ginger Lugo MD~ Signed [facility] Work Phone: 1([phone]) 458-972207-12-2023 Discharge summary Author Porter Banuelos [facility] March 18, 2023 12:31am Note Date/Time March 17, 2023 11:5 4pm [facility] Medical Records Department [address] [place] [address] Emergency Department Summary 03/17/23 MR#: [id number] Acct: [id number] Name: ROMEL LOPES Rep #:[id number] : 1970 52 From: Porter Banuelos DO PCP: Dr. Ginger Lugo MD Status:ADM I N Location: [place] [address] HPI History of Present Illness Chief Complaint: [...] he has not had a bowel movement. [facility] Medical History Anxiety Atherosclerosis of coronary artery of squaxin heart without angina pectoris BiPAP (biphasic positive [...] 84.4 H Lymph % (Auto) 6.4 L Pershing % (Auto) 8.2 Eos % (Auto) 0.0 [...] Clarity Cloudy Urine pH 5.0 Ur Specific [place] 1.020 Urine Protein 500 H Urine Glucose [...] your Primary Care Provider. Call [facility] ([phone]) or report to the closest Emergency Room. Call 911 if necessary. 03/18/23 0031 <Electronically signed by Porter Banuelos DO> Cosigner Signature (if applicable): CC: Dr. Ginger Lugo MD ~ Signed [facility] Work Phone: [phone]) [phone] Miscellaneous Notes* Telephone Encounter - Hanny Mcneal RN - 03/17/2023 5:22 PM EDT spouse returned call and appt noteds updated * Telephone Encounter - Larissa Rain LPN - 03/17/2023 4:10 PM EDT Patient scheduled appt for this evening via [facility] and only notes state sick. Requesting patientto return call or message via [facility] more detailed report of complaint. documented in this encounterKindred Hospital [facility]ima07-11-2023 Discharge summary Author Porter Banuelos [facility] March 18, 2023 12:31am Note Date/Time March 17, 2023 11:5 4pm [facility] Medical Records Department [address] [place] [address] Emergency Department Summary 03/17/23 MR#: [id number] Acct: [id number] Name: ROMEL LOPES Rep #:[id number] : 1970 52 From: Porter Banuelos DO PCP: Dr. Ginger Lugo MD Status:ADM I N Location: [place] [address] HPI History of Present Illness Chief Complaint: [...] he has not had a bowel movement. [facility] Medical History Anxiety Atherosclerosis of coronary artery of squaxin heart without angina pectoris BiPAP (biphasic positive [...] 84.4 H Lymph % (Auto) 6.4 L Pershing % (Auto) 8.2 Eos % (Auto) 0.0 [...] Clarity Cloudy Urine pH 5.0 Ur Specific [place] 1.020 Urine Protein 500 H Urine Glucose [...] your Primary Care Provider. Call [facility] ([phone]) or report to the closest Emergency Room. Call 911 if necessary. 03/18/23 0031 <Electronically signed by Porter Banuelos DO> Cosigner Signature (if applicable): CC: Dr. Ginger Lugo MD ~ Signed [facility] Work Phone: [phone]) [phone] Discharge summary Author Tye Juarez [facility] March 05, 2023 1:05am Note Date/Time March 04, 2023 10:2 0pm [facility] Medical Records Department [address] [place] [address] Emergency Department Summary 03/04/23 MR#: [id number] Acct: [id number] Name: ROMEL LOPES Rep #:[id number] : 1970 52 From: Tye Juarez MD [...] MD) Anxiety Atherosclerosis of coronary artery of squaxin heart without angina pectoris BiPAP (biphasic positive [...] 83.6 H Lymph % (Auto) 10.3 L Pershing % (Auto) 5.1 Eos % (Auto) 0.2 [...] Clarity Clear Urine pH 5.0 Ur Specific [place] 1.025 Urine Protein 100 H Urine Glucose [...] rate of 102. No acute signs of NE or ischemia. Discharge Plan Triage Chief Complaint: [...] your Primary Care Provider. Call [facility] ([phone]) or report to the closest Emergency Room. Call 911 if necessary. 03/05/23 0105 <Electronically signed by Tye Juarez MD> Cosigner Signature (if applicable): CC: Dr. Ginger Lugo MD ~ Signed [facility] Work Phone: 1(280) 557-700903-20-2023 Miscellaneous Notes* Telephone Encounter - Ronnie Barrow LPN - 11/24/2022 9:53 AM EDT Patient phones requesting refills as follows: Requested Prescriptions Pending Prescriptions Disp Refills dulaglutide (TRULICITY) 0.75 mg/0.5 mL pen injector 4 Each 5 Sig: Inject 0.75 mg subcutaneously one time a week. [facility] 10/30/22 NOV 01/22/23 Please review and advise. 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 Danielle Mann LPN documented in this encounterKindred Hospital Lima02-18-[address] Patton [facility] October 25, 2022 10:26am Note Date/Time October 25, 2022 10:26am [facility] Medical Records Department [address] [place] [address] Progress Note - Cardiology 10/25/22 1023 MR#: [id number] Acct: [id number] Name: ROMEL LOPES Rep #:[id number] : 1970 51 From: Ashley Patton MD PCP: Dr. Ginger Lugo MD Status:ADM I NO Location: [place] [address] Subjective Subjective Denies any complaints. Ambulating. No [...] GFR (MDRD) Non-Af 99, BUN/Creatinine Ratio 18.5, Kdokqun108 H, Calcium 8.8, Total Bilirubin 0.40, AST [...] Cosigner Signature (if applicable): CC: ~ Signed [facility] Work Phone: [phone]) [phone] Patton [facility] October 24, 2022 3:54pm Note Date/Time October 24, 2022 3:54pm [facility] Medical Records Department [address] [place] [address] Instructions for Home/Discharge Instructions 10/24/22 1552 MR#: [id number] Acct: [id number] Name: ROMEL LOPES Rep #:[id number] : 1970 51 From: Ashley Patton MD [...] CC: Dr. Ginger Lugo MD ~ Signed [facility] Work Phone: 1([phone]) 331-751002-01-2023 Evaluation note* Diagnosis Onset Date Resolution Status Chest pain acute Diabetes acute History of coronary artery disease acute History of coronary artery stent placement October, acute Essential hypertension chron ic Hyperlipidemia chronic [facility] Work Phone: 1(490) 180-516702-01-2023 History of Present illness Narrative* Ginger Lugo MD - 10/08/2022 9:04 AM EST Patient presents with: ER F/U HPI: Patient presents today for office visit for ER F/U. [facility] ER 10/07/22. Transported via EMS after syncopal [...] Fam hx-cardiovas dis NEC n/a father, of NE at 45 Hypothyroid Other and unspecified hyperlipidemia [...] given hx. Will get old records from [facility]. - CONSULT TO CARDIOLOGY 6. Family history of heart disease - ICD9: V17.49, ICD10: Z82.49 - CONSULT TO CARDIOLOGY Ginger Lugo MD documented in this encounterKindred Hospital Lima01-31-2023 History of Present illness NarrativePatient is here for kidney stone and pyelonephritis..Patient was in [facility], was treated with IV antibiotics and IM injections after discharge..States is feeling better..CT was done 10/07/22 and was normal from standpoint. CT at [place] showed mild perinephric stranding but no stones or o bstruction. ..Chronic BPH with LUTs, sx are mild and stable..No dysuria, No hematuria since discharged from [facility]..Nocturia x 1-2, depending on fluid intake..ED is mild.. No PSA.[facility] DO Work Phone: [phone]) [phone] History of Present illness NarrativePatient is here for kidney stone and pyelonephritis..Patient was in [facility], was treated with IV antibiotics and IM injections after discharge..States is feeling better..CT was done 10/07/22 and was normal from standpoint. CT at [facility] showed mild perinephric stranding but no stones or obstruction. ..Chronic BPH with LUTs, sx are mild and stable..No dysuria, No hematuria since discharged from [facility]..Nocturia x 1-2, depending on fluid intake..ED is mild.. No PSA.[facility] Work Phone: [phone]) [phone] Miscellaneous Notes* Telephone Encounter - Nuha Perez [...] you. Nuha Perez LPN documented in this encounterKindred Hospital Lima01-31-2023 Miscellaneous Notes* Telephone Encounter - Marilu Sanchez [...] patient. Marilu Sanchez Ma documented in this encounterKindred Hospital [facility]ima12-22-2022 History of Present illness Narrative* Nadege Christine PA-C - 08/28/2022 10:40 AM EST Audio only was used for evaluation of this patient. Location of patient: [place] Patient was offered a virtual/telemedicine appointment in [...] Fam hx-cardiovas dis NEC n/a father, of NE at 45 Hypothyroid Other and unspecified hyperlipidemia [...] review. Nadege Christine PA-C documented in this encounterKindred Hospital Lima11-01-2022 Miscellaneous Notes* Telephone Encounter - Nadege Christine PA-C - 07/08/2022 2:22 PM EDT Please advise blood sugar was 74- nondiabetic range but hgba1c was set ahead for 3 months by accident. I need the hgba1c if he could stop levar n get it done- my apologies. Non-fasting is fine. Get Medical Advice on 07/07/22 HGB A1C Thanks, Mac Christine PA-C documented in this encounterKindred Hospital Lima10-21-2022 Instructions* Patient Instructions* Nadege Christine PA-C - 06/27/2022 10:35 AM EDT Use Mycolog cream twice a day as directed for 2 weeks or until burning and itching improve, then swith to Lotrimen cream twice a day as directed (over the counter) until every trace of skin rash or peeling is gone. 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 Kylie Tran * Telephone Encounter - Ginger Lugo MD - 06/12/2022 3:41 PM EDT written * Telephone Encounter - Edna Saucedo [facility] - 06/12/2022 1:14 PM EDT Nick Lopes [...] calling: Liliana Call patient at: on cell [phone] (home) [phone] (work) [phone] (cell) Was an appointment scheduled: No Closing statement: Results or non-symptom based questions: Thank you for calling [facility], your call will be returned within the next business day. Edna Saucedo Pss documented in this encounterKindred Hospital Lima10-11-2022 History of Present illness Narrative* Vanda Contreras Ma - 06/17/2022 10:20 AM EDT NO show letter mailed to pt. Vanda Contreras Ma * Nadege Christine PA-C - 06/17/2022 9:00 AM EDT No show. Mac Christine PA-C documented in this encounterKindred Hospital Lima10-06-2022 Miscellaneous Notes* Telephone Encounter - Edna Saucedo [...] patient. Edna Saucedo Pss documented in this encounterKindred Hospital Lima05-23-2022 Miscellaneous Notes* Telephone Encounter - Danielle Mann LPN - 01/27/2022 9:16 AM EDT called in and states she booked apt with pcp because he was to [facility] yesterday 01-26-22 and was to be seen today. Dr. Lugo reviewed ER report and is advising pt contact the place that he was referred to by [facility] because he is going to need referred to ortho and he would be much better served by them. I notified and apt in office today has been cancelled. Danielle Mann LPN documented in this encounterKindred Hospital [facility]ima04-12-2022 Miscellaneous Notes* Telephone Encounter - Marilu Sanchez Ma - 2021 1:25 PM EDT notified of letter ready at med recs * Telephone Encounter - Danielle Mann LPN - 2021 11:43 AM EDT calling to check status. Please let her know when ready for pickers material handlers. Hoping to pickers material handlers today. Call [phone] Danielle Mann LPN * Telephone Encounter - Marilu Sanchez Ma - 2021 11:25 AM EDT Placed on desk for signature * Telephone Encounter - Ginger Lugo MD - 12/16/2021 12:19 PM EDT Printed. * Telephone Encounter - Vanda Contreras Ma - 12/16/2021 10:29 AM EDT See pt message and advise. Vanda Contreras Ma documented in this encounterKindred Hospital Lima04-10-2022 History of Present illness Narrative* Extended time required for all activities d/t increased pain 4/10 and decreased ROM of LUE/shoulder. * Patient was able to complete today's treatment with some difficulty. [facility] Work Phone: [phone]) 427-784004-05-2022 Miscellaneous Notes* Telephone Encounter - Jyoti Somers [...] medications? Missed any doses? documented in this encounterKindred Hospital Lima04-04-2022 History of Present illness Narrative* Ginger Lugo [...] toradol. Is going to see ortho in [place]. Has to call to get time. Needs [...] Fam hx-cardiovas dis NEC n/a father, of NE at 45 Hypothyroid Other and unspecified hyperlipidemia [...] three months and prn. documented in this encounterKindred Hospital Lima04-04-2022 Miscellaneous Notes* Telephone Encounter - Marilu Sanchez Ma - 12/09/2021 8:58 AM EDT Pt is already scheduled documented in this encounterKindred Hospital Lima03-29-2022 History of Present illness Narrative* Karen Block [...] 03, 2021 10:01 AM documented in this encounterKindred Hospital [facility]ima03-25-2022 Miscellaneous Notes* Telephone Encounter - Cynthia Watson [...] notify patient. Cynthia Watson documented in this encounterKindred Hospital [facility]ima02-09-2021 History of Present illness Narrative* Karen Block [...] 16, 2020 11:30 AM documented in this encounterKindred [facility] Past [facility] Narrative* Problem Noted [...] of this encounter (statuses as of 11/29/2021) [facility] History of Past illness Narrative* Problem Noted [...] of this encounter (statuses as of 12/09/2021) [facility] History of Past illness Narrative* Problem Noted [...] of this encounter (statuses as of 12/09/2021) [facility] History of Past illness Narrative* Problem Noted [...] of this encounter (statuses as of 12/10/2021) [facility] History of Past illness Narrative* Problem Noted [...] of this encounter (statuses as of 2021) [facility] History of Past illness Narrative* Problem Noted [...] of this encounter (statuses as of 01/27/2022) [facility] History of Past illness Narrative* Problem Noted [...] of this encounter (statuses as of 03/15/2022) [facility] History of Past illness Narrative* Problem Noted [...] of this encounter (statuses as of 06/12/2022) [facility] History of Past illness Narrative* Problem Noted [...] of this encounter (statuses as of 06/17/2022) [facility] History of Past illness Narrative* Problem Noted Date Resolved Date Frequency 06/13/2015 04/23/2018 Urgency of urination 06/13/2015 04/23/2018 Concussion without loss of consciousness 015 04/23/2018 Backache, unspecified 11/11/2012 12/14/2013 Sprain of lumbar region 10/18/2012 12/15/19 14 Thoracic or Lumbosacral Neuritis or Radiculitis, Unspecified 02/23/2009 12/14/2013 Overview: Dr. Hollins -- epidurals x 3 Summer 2008 Routine General Medical Exam ination at a [facility] 01/02/2009 12/14/2013 Overview: 09/28/06 Pain in joint, pelvic region and thigh 8 01/02/2009 Sprain of lumbar region 06/27/2008 01/03/20 09 Pain in joint, upper arm 06/27/2008 008 Pain in joint, shoulder region 06/27/2008 0 01/02/2009 Other affections of shoulder region, not elsewhere classified 01/27/2007 01/02/2009 documented as of this encounter (statuses as of 06/18/2022) [facility] History of Past illness Narrative* Problem Noted [...] of this encounter (statuses as of 06/28/2022) [facility] History of Past illness Narrative* Problem Noted [...] of this encounter (statuses as of 07/08/2022) [facility] History of Past illness Narrative* Problem Noted [...] of this encounter (statuses as of 08/29/2022) [facility] History of Past illness Narrative* Problem Noted [...] of this encounter (statuses as of 10/07/2022) [facility] History of Past illness Narrative* Problem Noted [...] of this encounter (statuses as of 10/08/2022) [facility] History of Past illness Narrative* Problem Noted [...] of this encounter (statuses as of 10/30/2022) [facility] History of Past illness Narrative* Problem Noted [...] of this encounter (statuses as of 11/08/2022) [facility] History of Past illness Narrative* Problem Noted [...] of this encounter (statuses as of 11/18/2022) [facility] History of Past illness Narrative* Problem Noted [...] of this encounter (statuses as of 11/24/2022) [facility] History of Past illness Narrative* Problem Noted [...] of this encounter (statuses as of 03/18/2023) [facility] History of Past illness Narrative* Problem Noted [...] of this encounter (statuses as of 03/30/2023) [facility] History of Past illness Narrative* Problem Noted [...] of this encounter (statuses as of 07/04/2023) [facility] History of Past illness Narrative* Problem Noted [...] of this encounter (statuses as of 07/20/2023) [facility] History of Past illness Narrative* Problem Noted [...] of this encounter (statuses as of 10/08/2023) [facility] History of Past illness Narrative* Problem Noted [...] of this encounter (statuses as of 10/19/2023) [facility] History of Past illness Narrative* Problem Noted [...] of this encounter (statuses as of 10/20/2023) [facility] History of Past illness Narrative* Problem Noted [...] of this encounter (statuses as of 10/21/2023) [facility] History of Past illness Narrative* Problem Noted [...] of this encounter (statuses as of 10/21/2023) [facility] History of Past illness Narrative* Problem Noted [...] of this encounter (statuses as of 10/21/2023) [facility] History of Past illness Narrative* Problem Noted [...] of this encounter (statuses as of 10/24/2023) [facility] History of Past illness Narrative* Problem Noted [...] of this encounter (statuses as of 10/26/2023) [facility] History of Past illness Narrative* Problem Noted [...] of this encounter (statuses as of 10/27/2023) [facility] History of Past illness Narrative* Problem Noted [...] of this encounter (statuses as of 10/30/2023) [facility] History of Past illness Narrative* Problem Noted Date Diagnosed Date Resolved Date Frequency 06/13/2015 04/23/2018 Urgency of urination 06/13/2015 018 Concussion without loss of consciousness 05/08/2015 04/23/2018 Backache, unspecified 11/11/20122013 Sprain of lumbar region 10/18/201205/2014 Thoracic or Lumbosacral Neur itis or Radiculitis, Unspecified 02/23/2009 12/14/2013 Overview: Dr. Hollins -- epidurals x 3 Summer 2008 Routine General Medical Exam ination at a [facility] 01/02/2009 12/14/2013 Overview: 09/28/06 Pain in joint, pelvic region and thigh 06/27/2008 01/02/2009 Sprain of lumbar region 06/27/200812/07 Pain in joint, upper arm 06/27/2008 Pain in joint, shoulder region 06/27/2008 01/02/2009 Other affections of shoulder region, not elsewhere classified 01/27/2007 01/02/2009 Overweight 09/25/2023 documented as of this encounter (statuses as of 12/07/2023) [facility] Diagnosis Essential hypertension, benign Disorder of thyroid Unspecified disorder of thyroid Hyperlipidemia, unspecified hyperlipidemia type [facility] Diagnosis Prepatellar bursitis of right knee- Primary Prepatellar bursitis Hypothyroidism, unspecified type Controlled type 2 diabetes mellitus without complication, without long-term current use of insulin (HCC) Hyperlipidemia, unspecified hyperlipidemia type Essential hypertension, benign [facility] Hyperlipidemia, unspecified hyperlipidemia type- Primary Hypothyroidism, unspecified type Controlled type 2 diabetes mellitus without complication, without long-term current use of insulin (HCC) [facility] Diagnosis Essential hypertension, benign Hyperlipidemia, unspecified hyperlipidemia type Disorder of thyroid Unspecified disorder of thyroid Controlled type 2 diabetes mellitus without complication, without long-term current use of insulin (HCC) [facility] Diagnosis Wellness examination- Primary Essential hypertension, benign Hyperlipidemia, unspecified hyperlipidemia type JOSIHA (obstructive sleep apnea) Obstructive sleep apnea (adult) [...] No-show for appointment [facility] Diagnosis JOSIAH (obstructive sleep apnea)- Primary Obstructive sleep apnea (adult) (pediatric) [facility] Diagnosis Wellness examination- Primary Essential [...] in cervical region [facility] Diagnosis Controlled type 2 diabetes mellitus without complication, without long-term current use of insulin (HCC)- Primary [facility] Diagnosis Acute upper respiratory infection- Primary Acute upper respiratory infections of unspecified site [facility] Diagnosis Chest pain, unspecified type- Primary Essential hypertension, benign Controlled type 2 diabetes mellitus without complication, without long-term current use of insulin (HCC) Hypothyroidism, acquired Unspecified hypothyroidism Syncope, unspecified syncope type Family history of heart disease Family history of other cardiovascular diseases [facility] Diagnosis Onset Date Resolution Status Chest pain acute Syncope and collapse acute Essential hypertension chron ic Hyperlipidemia chronic Obesity chronic JOSIAH (obstructive sleep apnea) chronic Tobacco dependence chronic Type 2 diabetes mellitus chr onic CAD (coronary artery disease) acute Essential hypertension chron ic Hyperlipidemia chronic Obesity chronic JOSIAH (obstructive sleep apnea) chronic Type 2 diabetes mellitus chr onic [facility] Work Phone: Evaluation note* Diagnosis Controlled type 2 diabetes mellitus without complication, without long-term current use of insulin (HCC) documented in this encounter [facility]No assessment [facility]* Diagnosis Onset Date Resolution Status Infection due to ESBL-producing Escherichia coli acute Pyelonephritis acute [facility] Work Phone: Evaluation note* Diagnosis Sepsis due to Escherichia coli without acute organ dysfunction (HCC)- Primary Acute pyelonephritis Acute pyelonephritis without lesion of renal medullary necrosis Essential hypertension, benign Controlled type 2 diabetes mellitus without complication, without long-term current use of insulin (HCC) documented in this encounter [facility] note* Diagnosis Essential hypertension, benign Disorder of thyroid Unspecified disorder of thyroid documented in this encounter [facility] note* Diagnosis Acute pyelonephritis Acute pyelonephritis without lesion of renal medullary necrosis Unspecified Escherichia coli (E. coli) as the cause of diseases classified elsewhere documented in this encounter [facility] Work Phone: Evaluation note* Diagnosis Hyperglycemia- Primary Other abnormal glucose Abdominal pain, unspecified abdominal location Lactic acidosis Acidosis documented in this encounter [facility] Work Phone: Evaluation note* Diagnosis Onset Date Resolution Status Chest pain acute Diabetes acute History of coronary artery disease [facility] Work Phone: Evaluation note* Diagnosis Chest pain, unspecified type- Primary C. difficile colitis Intestinal infection due to clostridium difficile documented in this encounter [facility] note* Diagnosis C. difficile colitis- Primary Intestinal infection due to clostridium difficile documented in this encounter [facility] note* Diagnosis Anemia, unspecified type- Primary documented in this encounter [facility] note* Diagnosis Colitis- Primary Other and unspecified noninfectious gastroenteritis and colitis Diarrhea, unspecified type Colitis- Primary Other and unspecified noninfectious gastroenteritis and colitis Colitis Other and unspecified noninfectious gastroenteritis and colitis documented in this encounter [facility] note* Diagnosis C. difficile colitis- Primary Intestinal infection due to clostridium difficile documented in this encounter [facility] note* Diagnosis Controlled type 2 diabetes mellitus without complication, without long-term current use of insulin (HCC) documented in this encounter [facility] note* Diagnosis Essential hypertension, benign- Primary Hyperlipidemia, [...] left lower extremity documented in this encounter [facility] note* Diagnosis Acute pain of left knee Edema of leg Edema Pain of left lower extremity documented in this encounter [facility] note* Diagnosis Ingrowing toenail with infection- Primary Ingrowing nail documented in this encounter [facility] note* Diagnosis Closed nondisplaced fracture of distal phalanx of right great toe, initial encounter- Primary documented in this encounter [facility] note* Diagnosis Folate deficiency- Primary Other B-complex deficiencies documented in this encounter [facility] note* Diagnosis Open wound of toe, initial encounter- Primary documented in this encounter [facility] note* Diagnosis Acute pain of left knee Pain of left lower extremity documented in this encounter [facility] note* Diagnosis Closed non-physeal fracture of phalanx of right great toe, unspecified phalanx, initial encounter- Primary [facility] Diagnosis Open wound of toe, initial encounter [facility] Acute pain of left knee- Primary [facility] Diagnosis Knee pain, unspecified chronicity, unspecified laterality- Primary [facility] Diagnosis Medial knee pain, left- Primary [facility] Diagnosis Acute pain of left knee Pain of left lower extremity [facility] Diagnosis Ingrowing toenail with infection Ingrowing nail [facility] Chronic pain of left knee- Primary Pain in joint, lower leg [facility] Diagnosis Folate deficiency Other B-complex deficiencies [facility] Diagnosis Chronic pain of left knee Pain in joint, lower leg [facility] Diagnosis Chronic left shoulder pain Pain in joint, shoulder region [facility] Diagnosis Disorder of thyroid Unspecified disorder of thyroid [facility] Diagnosis Primary osteoarthritis of left knee- Primary Primary localized osteoarthrosis, lower leg [facility] Diagnosis JOSIAH (obstructive sleep apnea)- [...] malignant neoplasms, colon [facility] Diagnosis Leukocytosis, unspecified type- Primary Controlled type 2 diabetes mellitus without complication, without long-term current use of insulin (HCC) [facility] Diagnosis Essential hypertension, benign [facility] Diagnosis Primary osteoarthritis of left knee- Primary Primary localized osteoarthrosis, lower leg [facility] Diagnosis Pain in both knees, unspecified chronicity- Primary documented in this encounter [facility] note* Diagnosis Primary osteoarthritis of left knee- Primary Primary localized osteoarthrosis, lower leg documented in this encounter [facility] note* Diagnosis Primary osteoarthritis of left knee- Primary Primary localized osteoarthrosis, lower leg documented in this encounter [facility] note* Diagnosis Primary osteoarthritis of left knee- Primary Primary localized osteoarthrosis, lower leg documented in this encounter [facility] note* Diagnosis Pain in both knees, unspecified chronicity documented in this encounter [facility] note* Diagnosis Osteoarthritis of left knee, unspecified osteoarthritis type- Primary Central sleep apnea Unspecified sleep apnea Essential hypertension, benign Hyperlipidemia, unspecified hyperlipidemia type Status post insertion of drug-eluting stent into left anterior descending (LAD) 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 JOSIAH (obstructive sleep apnea) Obstructive sleep apnea (adult) (pediatric) Hypothyroidism, unspecified type Obesity, Class III, BMI 40-49.9 (morbid obesity) ([facility]) Morbid obesity Controlled type 2 diabetes mellitus without complication, without long-term current use of insulin ([facility]) documented in this encounter [facility] note* Diagnosis Osteoarthritis of left knee, unspecified osteoarthritis type- Primary Controlled type 2 diabetes mellitus without complication, without long-term current use of insulin ([facility]) documented in this encounter [facility] note* Diagnosis Folate deficiency Other B-complex deficiencies Essential hypertension, benign documented in this encounter [facility] note* Diagnosis Hypoglycemia- Primary Hypoglycemia, unspecified Dizziness Dizziness and giddiness documented in this encounter [facility] note* Diagnosis Loose left total knee arthroplasty (HCC)- Primary documented in this encounter [facility] note* Diagnosis S/P total knee arthroplasty, left- Primary Loose left total knee arthroplasty (HCC) documented in this encounter [facility] note* Diagnosis S/P total knee arthroplasty, left- Primary documented in this encounter [facility] note* Diagnosis S/P total knee arthroplasty, left- Primary documented in this encounter [facility] note* Diagnosis S/P total knee arthroplasty, left- Primary documented in this encounter [facility] note* Diagnosis S/P total knee arthroplasty, left- Primary documented in this encounter [facility] note* Diagnosis Disorder of thyroid Unspecified disorder of thyroid documented in this encounter [facility] of Present illness Narrative* Patient demos increased endurance and decreased pain throughout. * Patient was able to complete today's treatment with some difficulty. [facility] Work Phone: History of Present illness Narrative* Patient demos increased endurance and decreased pain this date. Patient tolerating all exercises well. * Patient was able to complete today's treatment with some difficulty. [facility] Work Phone: Hospital Discharge instructions Additional Instructions Plenty of fluids and rest. Increase your diet slowly as tolerated. Zofran as needed for nausea. You may swallow it or let it dissolve in your tongue. Follow-up with your doctor if not improving or return if feeling worse.[facility] Work Phone: Reason for referral (narrative)* Diagnostic Procedure Only (Urgent) - Closed Specialty Diagnoses / Procedures Referred By Contac t Referred To Contact US IMAGING Diagnoses Acute pain of left knee Edema of leg Pain of left lower extremity Procedures US DVT LOWER LEFT DUP-SCAN XTR VEINS UNILATERAL/LIMITED STUDY Ginger Lugo MD [address] [place] [address] [place] [address] Referral ID Status Reason Start Date Expiration Date V isits Requested Visits Authorized [id number] Closed Auto-Generate d Referral 03/28/2024 04/27/2025 1 1 [facility] for referral (narrative)* Diagnostic Procedure Only (Routine) - Closed Specialty Diagnoses / Procedures Referred By Contac t Referred To Contact XR IMAGING Diagnoses Ingrowing toenail with infection Procedures XR TOE AP/LAT/OBL RIGHT RADEX TOE MINIMUM 2 VIEWS Sam Beasley [address] [place] [address] [place] [address] Referral ID Status Reason Start Date Expiration Date V isits Requested Visits Authorized [id number] Closed Auto-Generate d Referral 03/28/2024 04/27/2025 1 1 T [facility] for referral (narrative)* Diagnostic Procedure Only (Routine) - New Request Specialty Diagnoses / Procedures Referred By Contac t Referred To Contact XR IMAGING Diagnoses Open wound of toe, initial encounter Procedures XR TOE AP/LAT/OBL RIGHT RADEX TOE MINIMUM 2 VIEWS Sam Beasley[address] [place] [address] [place] [address] Referral ID Status Reason Start Date Expiration Date Visits Requested Visits Authorized [id number] New Request Auto-Generat ed Referral 04/01/2024 05/01/2025 1 1 [facility] for referral (narrative)* Diagnostic Procedure Only (Routine) - New Request Specialty Diagnoses / Procedures Referred By Contac t Referred To Contact XR IMAGING Diagnoses Closed non-physeal fracture of phalanx of right great toe, unspecified phalanx, initial encounter Procedures XR TOE AP/LAT/OBL RIGHT RADEX TOE MINIMUM 2 VIEWS Sam Beasley[address] [place] [address] [place] [address] Referral ID Status Reason Start Date Expiration Date Visits Requested Visits Authorized [id number] New Request Auto-Generat ed Referral 04/14/2024 05/14/2025 1 1 [facility] for referral (narrative)* Diagnostic Procedure Only (Routine) - Closed Specialty Diagnoses / Procedures Referred By Contac t Referred To Contact XR IMAGING Diagnoses Open wound of toe, initial encounter Procedures XR TOE AP/LAT/OBL RIGHT RADEX TOE MINIMUM 2 VIEWS Sam Be[address] [place] [address] [place] [address] Referral ID Status Reason Start Date Expiration Date V isits Requested Visits Authorized [id number] Closed Auto-Generate d Referral 04/01/2024 05/01/2025 1 1 [facility] for referral (narrative)* Diagnostic Procedure Only (Routine) - Closed Specialty Diagnoses / Procedures Referred By Contac t Referred To Contact XR IMAGING Diagnoses Pain of left lower extremity Procedures XR TIBIA FIBULA 2V AP/LAT LEFT RADIOLOGIC EXAMINATION TIBIA & FIBULA 2 VIEWS Ginger Lugo MD [address] [place] [address] [place] [address] Referral ID Status Reason Start Date Expiration Date V isits Requested Visits Authorized [id number] Closed Auto-Generate d Referral 03/28/2024 04/27/2025 1 1 * Diagnostic Procedure Only (Routine) - Closed Specialty Diagnoses / Procedures Referred By Contac t Referred To Contact XR IMAGING Diagnoses Acute pain of left knee Pain of left lower extremity Procedures XR KNEE GENERAL 4V AP BOTH/PA BOTH/LAT/MERC LEFT RADIOLOGIC EXAM KNEE COMPLETE 4/MORE VIEWS Ginger Lugo MD [address] [place] [address] [place] [address] Referral ID Status Reason Start Date Expiration Date V isits Requested Visits Authorized [id number] Closed Auto-Generate d Referral 03/28/2024 04/27/2025 1 1 [facility] for referral (narrative)* Diagnostic Procedure Only (Routine) - Closed Specialty Diagnoses / Procedures Referred By Contac t Referred To Contact XR IMAGING Diagnoses Ingrowing toenail with infection Procedures XR TOE AP/LAT/OBL RIGHT RADEX TOE MINIMUM 2 VIEWS Sam Beasley [address] [place] [address] [place] [address] Referral ID Status Reason Start Date Expiration Date V isits Requested Visits Authorized [id number] Closed Auto-Generate d Referral 03/28/2024 04/27/2025 1 1 [facility] for referral (narrative)* Diagnostic Procedure Only (Routine) - Closed Specialty Diagnoses / Procedures Referred By Contac t Referred To Contact XR IMAGING Diagnoses Chronic left shoulder pain Procedures XR SHOULDER GENERAL 3V OR MORE AP/TRUE AP/OTHER LEFT RADEX SHOULDER COMPLETE MINIMUM 2 VIEWS Nadege Christine PA-C [address] [place] [address] [place] [address] Referral ID Status Reason Start Date Expiration Date V isits Requested Visits Authorized [id number] Closed Auto-Generate d Referral 12/03/2021 01/02/2023 1 1 [facility] for referral (narrative)* Diagnostic Procedure Only (Routine) - Authorized Specialty Diagnoses / Procedures Referred By Contac t Referred To Contact XR IMAGING Diagnoses Pain in both knees, unspecified chronicity Procedures XR LEG FRONTAL HIP TO ANKLE MECHANICAL AXIS BONE LENGTH STUDIES Jose Loo MD [address] [place] [address] [place] [address] Referral ID Status Reason Start Date Expiration Date Visits Requested Visits Authorized [id number] Authorized Auto-Generat ed Referral 09/15/2024 10/15/2025 1 1 * Diagnostic Procedure Only (Routine) - Authorized Specialty Diagnoses / Procedures Referred By Contac t Referred To Contact XR IMAGING Diagnoses Pain in both knees, unspecified chronicity Procedures XR KNEE GENERAL 4V AP BOTH/PA BOTH/LAT/MERC LEFT RADIOLOGIC EXAM KNEE COMPLETE 4/MORE VIEWS Jose Loo MD [address] [place] [address] [place] [address] Referral ID Status Reason Start Date Expiration Date Visits Requested Visits Authorized [id number] Authorized Auto-Generat ed Referral 09/15/2024 10/15/2025 1 1 [facility] for referral (narrative)* Diagnostic Procedure Only (Routine) - Closed Specialty Diagnoses / Procedures Referred By Contac t Referred To Contact XR IMAGING Diagnoses Pain in both knees, unspecified chronicity Procedures XR LEG FRONTAL HIP TO ANKLE MECHANICAL AXIS BONE LENGTH STUDIES Jose Loo MD [address] [place] [address] [place] [address] Referral ID Status Reason Start Date Expiration Date V isits Requested Visits Authorized [id number] Closed Auto-Generate d Referral 09/15/2024 10/15/2025 1 1 * Diagnostic Procedure Only (Routine) - Closed Specialty Diagnoses / Procedures Referred By Contac t Referred To Contact XR IMAGING Diagnoses Pain in both knees, unspecified chronicity Procedures XR KNEE GENERAL 4V AP BOTH/PA BOTH/LAT/MERC LEFT RADIOLOGIC EXAM KNEE COMPLETE 4/MORE VIEWS Jose Loo MD [address] [place] [address] [place] [address] Referral ID Status Reason Start Date Expiration Date V isits Requested Visits Authorized [id number] Closed Auto-Generate d Referral 09/15/2024 10/15/2025 1 1 [facility] for visit Narrative* Diagnostic Procedure Only (Urgent) - Closed Specialty Diagnoses / Procedures Referred By Contac t Referred To Contact US IMAGING Diagnoses Acute pain of left knee Edema of leg Pain of left lower extremity Procedures US DVT LOWER LEFT DUP-SCAN XTR VEINS UNILATERAL/LIMITED STUDY Ginger Lugo MD [address] [place] [address] [place] [address] Referral ID Status Reason Start Date Expiration Date V isits Requested Visits Authorized [id number] Closed Auto-Generate d Referral 03/28/2024 04/27/2025 1 1 [facility] for visit Narrative* Diagnostic Procedure Only (Routine) - Closed Specialty Diagnoses / Procedures Referred By Contac t Referred To Contact XR IMAGING Diagnoses Open wound of toe, initial encounter Procedures XR TOE AP/LAT/OBL RIGHT RADEX TOE MINIMUM 2 VIEWS Sam Beasley [address] [place] [address] [place] [address] Referral ID Status Reason Start Date Expiration Date V isits Requested Visits Authorized [id number] Closed Auto-Generate d Referral 04/01/2024 05/01/2025 1 1 [facility] for visit Narrative* Diagnostic Procedure Only (Routine) - Closed Specialty Diagnoses / Procedures Referred By Contac t Referred To Contact XR IMAGING Diagnoses Pain of left lower extremity Procedures XR TIBIA FIBULA 2V AP/LAT LEFT RADIOLOGIC EXAMINATION TIBIA & FIBULA 2 VIEWS Ginger Lugo MD [address] [place] [address] [place] [address] Referral ID Status Reason Start Date Expiration Date V isits Requested Visits Authorized [id number] Closed Auto-Generate d Referral 03/28/2024 04/27/2025 1 1 [facility] for visit Narrative* Diagnostic Procedure Only (Routine) - Closed Specialty Diagnoses / Procedures Referred By Contac t Referred To Contact XR IMAGING Diagnoses Ingrowing toenail with infection Procedures XR TOE AP/LAT/OBL RIGHT RADEX TOE MINIMUM 2 VIEWS Sam Beasley [address] [place] [address] [place] [address] Referral ID Status Reason Start Date Expiration Date V isits Requested Visits Authorized [id number] Closed Auto-Generate d Referral 03/28/2024 04/27/2025 1 1 [facility] for visit Narrative* Diagnostic Procedure Only (Routine) - Closed Specialty Diagnoses / Procedures Referred By Contac t Referred To Contact XR IMAGING Diagnoses Chronic left shoulder pain Procedures XR SHOULDER GENERAL 3V OR MORE AP/TRUE AP/OTHER LEFT RADEX SHOULDER COMPLETE MINIMUM 2 VIEWS Nadege Christine PA-C [address] [place] [address] [place] [address] Referral ID Status Reason Start Date Expiration Date V isits Requested Visits Authorized [id number] Closed Auto-Generate d Referral 12/03/2021 01/02/2023 1 1 [facility] for visit Narrative* Diagnostic Procedure Only (Routine) - Closed Specialty Diagnoses / Procedures Referred By Contac t Referred To Contact XR IMAGING Diagnoses Pain in both knees, unspecified chronicity Procedures XR KNEE GENERAL 4V AP BOTH/PA BOTH/LAT/MERC LEFT RADIOLOGIC EXAM KNEE COMPLETE 4/MORE VIEWS Jose Loo MD [address] [place] [address] [place] [address] Referral ID Status Reason Start Date Expiration Date V isits Requested Visits Authorized [id number] Closed Auto-Generate d Referral 09/15/2024 10/15/2025 1 1 [facility] Summary Purpose Family History No Family History [...] FoundDocuments on File Type Date Recorded Patient Clinic Administrator Expl anation Advance Directive(s) 01/26/2022 2:25 PM Advance Directive Response Recorded Date/ Time Advance Directives No October 9:11am Living Will No October 24, 2 023 3:04pm Power of Weld Technician No October 24, 2022 3:04pm Advance Directive Response Recorded Date/ Time Advance Directives No October 10:11am Living Will No March 04, 2023 10:32pm Power of Weld Technician No March 04 10:32pm Advance Directive Response Recorded Date/ Time Advance Directives No October 10:11am Living Will No March 17, 2023 8:40pm Power of Weld Technician No March 17 8:40pm Advance Directive Response Recorded Date/ Time Advance Directives No October 10:11am Living Will No March 18, 2023 2:03am Power of Weld Technician No March 18 2:03am Advance Directive Response Recorded Date/ Time Advance Directives No October 06, 2023 12:13pm Living Will No October 07 8:48am Power of Weld Technician No October 07, 2023 8:48am Advance Directive Response Recorded Date/ Time Advance Directives No October 06, 2023 12:13pm Living Will No October 07 11:39am Power of Weld Technician No October 07, 2023 11:39am Reason for Referral Specialty Diagnoses / Procedures Referred By Contac t Referred To Contact Ophthalmology Diagnoses Controlled type 2 diabetes mellitus without complication, without long-term current use of insulin (HCC) Wellness examination Procedures CONSULT TO OPHTHALMOLOGY OFFICE/OUTPATIENT [facility] 60-74 MINUTES Nadege Christine PA-C [address] [place] [address] Referral ID Status Reason Start Date Expiration Date Visits Requested Visits Authorized [id number] Pending Review PCP Requested Referral 2 06/17/2023 1 1 Specialty Diagnoses / Procedures Referred By Contac t Referred To Contact Cardiology Diagnoses Chest pain, unspecified type Syncope, unspecified syncope type Family history of heart disease Procedures CONSULT TO CARDIOLOGY OFFICE/OUTPATIENT [facility] 60-74 MINUTES Ginger Lugo MD [address] [place] [address] Referral ID Status Reason Start Date Expiration Date Visits Requested Visits Authorized [id number] Pending Review PCP Requested Referral 10/08/2022 10/08/2023 1 1 Specialty Diagnoses / Procedures Referred By Contac t Referred To Contact Gastroenterology Diagnoses C. difficile colitis Procedures CONSULT TO GASTROENTEROLOGY OFFICE/OUTPATIENT [facility] 60 MINUTES Nuha Mosquera APRN.CNS [address] [place] [address] Referral ID Status Reason Start Date Expiration Date Visits Requested Visits Authorized [id number] Authorized PCP Requested Referral 10/16/2023 10/15/2024 1 1 Specialty Diagnoses / Procedures Referred By Contac t Referred To Contact Orthopedics Diagnoses Acute pain of left knee Pain of left lower extremity Procedures CONSULT TO ORTHOPAEDICS OFFICE/OUTPATIENT [facility] 60 MINUTES Ginger Lugo MD [address] [place] [address] Referral ID Status Reason Start Date Expiration Date Visits Requested Visits Authorized [id number] Authorized PCP Requested Referral 03/28/2024 03/28/2025 1 1 Specialty Diagnoses / Procedures Referred By Contac t Referred To Contact XR IMAGING Diagnoses Pain of left lower extremity Procedures XR TIBIA FIBULA 2V AP/LAT LEFT RADIOLOGIC EXAMINATION TIBIA & FIBULA 2 VIEWS Ginger Lugo MD [address] [place] [address] [place] [address] Referral ID Status Reason Start Date Expiration Date V isits Requested Visits Authorized [id number] Closed Auto-Generate d Referral 03/28/2024 04/27/2025 1 1 Specialty Diagnoses / Procedures Referred By Contac t Referred To Contact XR IMAGING Diagnoses Acute pain of left knee Pain of left lower extremity Procedures XR KNEE GENERAL 4V AP BOTH/PA BOTH/LAT/MERC LEFT RADIOLOGIC EXAM KNEE COMPLETE 4/MORE VIEWS Ginger Lugo MD [address] [place] [address] [place] [address] Referral ID Status Reason Start Date Expiration Date V isits Requested Visits Authorized [id number] Closed Auto-Generate d Referral 03/28/2024 04/27/2025 1 1 Specialty Diagnoses / Procedures Referred By Contac t Referred To Contact US IMAGING Diagnoses Acute pain of left knee Edema of leg Pain of left lower extremity Procedures US DVT LOWER LEFT DUP-SCAN XTR VEINS UNILATERAL/LIMITED STUDY Ginger Lugo MD [address] [place] [address] [place] [address] Referral ID Status Reason Start Date Expiration Date Visits Requested Visits Authorized [id number] Authorized Auto-Generat ed Referral 03/28/2024 04/27/2025 1 1 Specialty Diagnoses / Procedures Referred By Contac t Referred To Contact Gastroenterology Diagnoses Screening for colon cancer Procedures CONSULT TO GASTROENTEROLOGY OFFICE/OUTPATIENT [facility] 60 MINUTES Ginger Lugo MD [address] [place] [address] Referral ID Status Reason Start Date Expiration Date Visits Requested Visits Authorized [id number] Authorized PCP Requested Referral 03/28/2024 03/28/2025 1 1 Specialty Diagnoses / Procedures Referred By Contac t Referred To Contact [facility] Diagnoses Chronic pain of left knee Procedures CONSULT TO PHYSICAL THERAPY PHYSICAL THERAPY EVALUATION HIGH COMPLEX 45 MINS Torsten Aviles V, DO [address] [place] [address] [facility] [place] [address] [place] [address] Referral ID Status Reason Start Date Expiration Date Visits Requested Visits Authorized [id number] Pending Review Auto-Generat ed Referral 05/13/2024 05/13/2025 1 1 Specialty Diagnoses / Procedures Referred By Jeremy madrid Referred To Contact MR IMAGING Diagnoses Chronic pain of left knee Procedures MRI KNEE WO IVCON LEFT MRI ANY JT LOWER EXTREM W/O CONTRAST MATRL Torsten Aviles V, DO [address] [place] [address] [place] [address] Referral ID Status Reason Start Date Expiration Date Visits Requested Visits Authorized [id number] New Request Auto-Generat ed Referral 05/13/2024 06/12/2025 1 1 Referral ID Status Reason Start Date Expiration Date V isits Requested Visits Authorized [id number] Closed Auto-Generate d Referral 05/13/2024 06/12/2025 1 [...] section and content) DATE CREATED AUTHOR 06/04/2018 [facility] DATE CREATED AUTHOR AUTHOR'S ORGANIZ ATION 04/12/2022 [facility] DATE CREATED AUTHOR AUTHOR'S ORGANIZ ATION 04/02/[address] [facility] DATE CREATED AUTHOR AUTHOR'S ORGANIZ ATION 05/07/2023 [facility] DATE CREATED AUTHOR AUTHOR'S ORGANIZ ATION 09/26/2023 [facility] DATE CREATED AUTHOR AUTHOR'S ORGANIZ ATION 11/06/2023 [facility] DATE CREATED AUTHOR AUTHOR'S ORGANIZ ATION 01/18/2024 [facility] DATE CREATED AUTHOR AUTHOR'S ORGANIZ ATION 04/01/2024 [facility] DATE CREATED AUTHOR AUTHOR'S ORGANIZ ATION 09/19/2024 [facility] DATE CREATED AUTHOR AUTHOR'S ORGANIZ ATION 09/22/2024 [facility] DATE CREATED AUTHOR AUTHOR'S ORGANIZ ATION 10/21/2024 [facility] DATE CREATED AUTHOR AUTHOR'S ORGANIZ ATION 01/11/2025 [facility] DATE CREATED AUTHOR AUTHOR'S ORGANIZ ATION 05/28/2025 [facility] DATE CREATED AUTHOR AUTHOR'S ORGANIZ ATION 05/28/2025 [facility] Source Comments (unrecognize d section and content) In the event this informatio n is protected by the Federal Confidentiality of Alcohol and Drug Abuse Patient Records regulations: The Federal rules restrict any use of the information to criminally investigate or prosecute any alcohol or drug abuse patient.[facility] the event this information is protected by the Federal Confidentiality of Alcohol and Drug Abuse Patient Records regulations: The Federal rules restrict any use of the information to criminally investigate or prosecute any alcohol or drug abuse patient.[facility] the event this information is protected by the Federal Confidentiality of Alcohol and Drug Abuse Patient Records regulations: The Federal rules restrict any use of the information to criminally investigate or prosecute any alcohol or drug abuse patient.[facility]ima[facility] the event this information is protected by the Federal Confidentiality of Alcohol and Drug Abuse Patient Records regulations: The Federal rules restrict any use of the information to criminally investigate or prosecute any alcohol or drug abuse patient.[facility] the event this information is protected by the Federal Confidentiality of Alcohol and Drug Abuse Patient Records regulations: The Federal rules restrict any use of the information to criminally investigate or prosecute any alcohol or drug abuse patient.[facility] the event this information is protected by the Federal Confidentiality of Alcohol and Drug Abuse Patient Records regulations: The Federal rules restrict any use of the information to criminally investigate or prosecute any alcohol or drug abuse patient.[facility]ima[facility] the event this information is protected by the Federal Confidentiality of Alcohol and Drug Abuse Patient Records regulations: The Federal rules restrict any use of the information to criminally investigate or prosecute any alcohol or drug abuse patient.[facility]ima[facility] the event this information is protected by the Federal Confidentiality of Alcohol and Drug Abuse Patient Records regulations: The Federal rules restrict any use of the information to criminally investigate or prosecute any alcohol or drug abuse patient.[facility]ima[facility] the event this information is protected by the Federal Confidentiality of Alcohol and Drug Abuse Patient Records regulations: The Federal rules restrict any use of the information to criminally investigate or prosecute any alcohol or drug abuse patient.[facility]ima[facility] the event this information is protected by the Federal Confidentiality of Alcohol and Drug Abuse Patient Records regulations: The Federal rules restrict any use of the information to criminally investigate or prosecute any alcohol or drug abuse patient.[facility]ima[facility] the event this information is protected by the Federal Confidentiality of Alcohol and Drug Abuse Patient Records regulations: The Federal rules restrict any use of the information to criminally investigate or prosecute any alcohol or drug abuse patient.[facility]ima[facility] the event this information is protected by the Federal Confidentiality of Alcohol and Drug Abuse Patient Records regulations: The Federal rules restrict any use of the information to criminally investigate or prosecute any alcohol or drug abuse patient.[facility]ima[facility] the event this information is protected by the Federal Confidentiality of Alcohol and Drug Abuse Patient Records regulations: The Federal rules restrict any use of the information to criminally investigate or prosecute any alcohol or drug abuse patient.[facility]imaIn the event this information is protected by the Federal Confidentiality of Alcohol and Drug Abuse Patient Records regulations: The Federal rules restrict any use of the information to criminally investigate or prosecute any alcohol or drug abuse patient.[facility]ima[facility] the event this information is protected by the Federal Confidentiality of Alcohol and Drug Abuse Patient Records regulations: The Federal rules restrict any use of the information to criminally investigate or prosecute any alcohol or drug abuse patient.[facility]ima[facility] the event this information is protected by the Federal Confidentiality of Alcohol and Drug Abuse Patient Records regulations: The Federal rules restrict any use of the information to criminally investigate or prosecute any alcohol or drug abuse patient.[facility]imaIn the event this information is protected by the Federal Confidentiality of Alcohol and Drug Abuse Patient Records regulations: The Federal rules restrict any use of the information to criminally investigate or prosecute any alcohol or drug abuse patient.[facility]imaIn the event this information is protected by the Federal Confidentiality of Alcohol and Drug Abuse Patient Records regulations: The Federal rules restrict any use of the information to criminally investigate or prosecute any alcohol or drug abuse patient.[facility]imaIn the event this information is protected by the Federal Confidentiality of Alcohol and Drug Abuse Patient Records regulations: The Federal rules restrict any use of the information to criminally investigate or prosecute any alcohol or drug abuse patient.[facility]imaIn the event this information is protected by the Federal Confidentiality of Alcohol and Drug Abuse Patient Records regulations: The Federal rules restrict any use of the information to criminally investigate or prosecute any alcohol or drug abuse patient.[facility]imaIn the event this information is protected by the Federal Confidentiality of Alcohol and Drug Abuse Patient Records regulations: The Federal rules restrict any use of the information to criminally investigate or prosecute any alcohol or drug abuse patient.[facility]imaIn the event this information is protected by the Federal Confidentiality of Alcohol and Drug Abuse Patient Records regulations: The Federal rules restrict any use of the information to criminally investigate or prosecute any alcohol or drug abuse patient.[facility]imaIn the event this information is protected by the Federal Confidentiality of Alcohol and Drug Abuse Patient Records regulations: The Federal rules restrict any use of the information to criminally investigate or prosecute any alcohol or drug abuse patient.[facility]imaIn the event this information is protected by the Federal Confidentiality of Alcohol and Drug Abuse Patient Records regulations: The Federal rules restrict any use of the information to criminally investigate or prosecute any alcohol or drug abuse patient.[facility]imaIn the event this information is protected by the Federal Confidentiality of Alcohol and Drug Abuse Patient Records regulations: The Federal rules restrict any use of the information to criminally investigate or prosecute any alcohol or drug abuse patient.[facility]imaIn the event this information is protected by the Federal Confidentiality of Alcohol and Drug Abuse Patient Records regulations: The Federal rules restrict any use of the information to criminally investigate or prosecute any alcohol or drug abuse patient.[facility]imaIn the event this information is protected by the Federal Confidentiality of Alcohol and Drug Abuse Patient Records regulations: The Federal rules restrict any use of the information to criminally investigate or prosecute any alcohol or drug abuse patient.[facility]imaIn the event this information is protected by the Federal Confidentiality of Alcohol and Drug Abuse Patient Records regulations: The Federal rules restrict any use of the information to criminally investigate or prosecute any alcohol or drug abuse patient.[facility]imaIn the event this information is protected by the Federal Confidentiality of Alcohol and Drug Abuse Patient Records regulations: The Federal rules restrict any use of the information to criminally investigate or prosecute any alcohol or drug abuse patient.[facility]imaIn the event this information is protected by the Federal Confidentiality of Alcohol and Drug Abuse Patient Records regulations: The Federal rules restrict any use of the information to criminally investigate or prosecute any alcohol or drug abuse patient.[facility]imaIn the event this information is protected by the Federal Confidentiality of Alcohol and Drug Abuse Patient Records regulations: The Federal rules restrict any use of the information to criminally investigate or prosecute any alcohol or drug abuse patient.[facility]ima[facility] the event this information is protected by the Federal Confidentiality of Alcohol and Drug Abuse Patient Records regulations: The Federal rules restrict any use of the information to criminally investigate or prosecute any alcohol or drug abuse patient.[facility]imaIn the event this information is protected by the Federal Confidentiality of Alcohol and Drug Abuse Patient Records regulations: The Federal rules restrict any use of the information to criminally investigate or prosecute any alcohol or drug abuse patient.[facility]imaIn the event this information is protected by the Federal Confidentiality of Alcohol and Drug Abuse Patient Records regulations: The Federal rules restrict any use of the information to criminally investigate or prosecute any alcohol or drug abuse patient.[facility]imaIn the event this information is protected by the Federal Confidentiality of Alcohol and Drug Abuse Patient Records regulations: The Federal rules restrict any use of the information to criminally investigate or prosecute any alcohol or drug abuse patient.[facility]imaIn the event this information is protected by the Federal Confidentiality of Alcohol and Drug Abuse Patient Records regulations: The Federal rules restrict any use of the information to criminally investigate or prosecute any alcohol or drug abuse patient.[facility]imaIn the event this information is protected by the Federal Confidentiality of Alcohol and Drug Abuse Patient Records regulations: The Federal rules restrict any use of the information to criminally investigate or prosecute any alcohol or drug abuse patient.[facility]imaIn the event this information is protected by the Federal Confidentiality of Alcohol and Drug Abuse Patient Records regulations: The Federal rules restrict any use of the information to criminally investigate or prosecute any alcohol or drug abuse patient.[facility]imaIn the event this information is protected by the Federal Confidentiality of Alcohol and Drug Abuse Patient Records regulations: The Federal rules restrict any use of the information to criminally investigate or prosecute any alcohol or drug abuse patient.[facility]imaIn the event this information is protected by the Federal Confidentiality of Alcohol and Drug Abuse Patient Records regulations: The Federal rules restrict any use of the information to criminally investigate or prosecute any alcohol or drug abuse patient.[facility]imaIn the event this information is protected by the Federal Confidentiality of Alcohol and Drug Abuse Patient Records regulations: The Federal rules restrict any use of the information to criminally investigate or prosecute any alcohol or drug abuse patient.[facility]imaIn the event this information is protected by the Federal Confidentiality of Alcohol and Drug Abuse Patient Records regulations: The Federal rules restrict any use of the information to criminally investigate or prosecute any alcohol or drug abuse patient.[facility]imaIn the event this information is protected by the Federal Confidentiality of Alcohol and Drug Abuse Patient Records regulations: The Federal rules restrict any use of the information to criminally investigate or prosecute any alcohol or drug abuse patient.[facility]imaIn the event this information is protected by the Federal Confidentiality of Alcohol and Drug Abuse Patient Records regulations: The Federal rules restrict any use of the information to criminally investigate or prosecute any alcohol or drug abuse patient.[facility]imaIn the event this information is protected by the Federal Confidentiality of Alcohol and Drug Abuse Patient Records regulations: The Federal rules restrict any use of the information to criminally investigate or prosecute any alcohol or drug abuse patient.[facility]imaIn the event this information is protected by the Federal Confidentiality of Alcohol and Drug Abuse Patient Records regulations: The Federal rules restrict any use of the information to criminally investigate or prosecute any alcohol or drug abuse patient.[facility]imaIn the event this information is protected by the Federal Confidentiality of Alcohol and Drug Abuse Patient Records regulations: The Federal rules restrict any use of the information to criminally investigate or prosecute any alcohol or drug abuse patient.[facility]imaIn the event this information is protected by the Federal Confidentiality of Alcohol and Drug Abuse Patient Records regulations: The Federal rules restrict any use of the information to criminally investigate or prosecute any alcohol or drug abuse patient.[facility]imaIn the event this information is protected by the Federal Confidentiality of Alcohol and Drug Abuse Patient Records regulations: The Federal rules restrict any use of the information to criminally investigate or prosecute any alcohol or drug abuse patient.[facility]imaIn the event this information is protected by the Federal Confidentiality of Alcohol and Drug Abuse Patient Records regulations: The Federal rules restrict any use of the information to criminally investigate or prosecute any alcohol or drug abuse patient.[facility]imaIn the event this information is protected by the Federal Confidentiality of Alcohol and Drug Abuse Patient Records regulations: The Federal rules restrict any use of the information to criminally investigate or prosecute any alcohol or drug abuse patient.[facility]imaIn the event this information is protected by the Federal Confidentiality of Alcohol and Drug Abuse Patient Records regulations: The Federal rules restrict any use of the information to criminally investigate or prosecute any alcohol or drug abuse patient.[facility]imaIn the event this information is protected by the Federal Confidentiality of Alcohol and Drug Abuse Patient Records regulations: The Federal rules restrict any use of the information to criminally investigate or prosecute any alcohol or drug abuse patient.[facility]imaIn the event this information is protected by the Federal Confidentiality of Alcohol and Drug Abuse Patient Records regulations: The Federal rules restrict any use of the information to criminally investigate or prosecute any alcohol or drug abuse patient.[facility]imaIn the event this information is protected by the Federal Confidentiality of Alcohol and Drug Abuse Patient Records regulations: The Federal rules restrict any use of the information to criminally investigate or prosecute any alcohol or drug abuse patient.[facility]imaIn the event this information is protected by the Federal Confidentiality of Alcohol and Drug Abuse Patient Records regulations: The Federal rules restrict any use of the information to criminally investigate or prosecute any alcohol or drug abuse patient.[facility]imaIn the event this information is protected by the Federal Confidentiality of Alcohol and Drug Abuse Patient Records regulations: The Federal rules restrict any use of the information to criminally investigate or prosecute any alcohol or drug abuse patient.[facility]imaIn the event this information is protected by the Federal Confidentiality of Alcohol and Drug Abuse Patient Records regulations: The Federal rules restrict any use of the information to criminally investigate or prosecute any alcohol or drug abuse patient.[facility]imaIn the event this information is protected by the Federal Confidentiality of Alcohol and Drug Abuse Patient Records regulations: The Federal rules restrict any use of the information to criminally investigate or prosecute any alcohol or drug abuse patient.[facility]imaIn the event this information is protected by the Federal Confidentiality of Alcohol and Drug Abuse Patient Records regulations: The Federal rules restrict any use of the information to criminally investigate or prosecute any alcohol or drug abuse patient.[facility]imaIn the event this information is protected by the Federal Confidentiality of Alcohol and Drug Abuse Patient Records regulations: The Federal rules restrict any use of the information to criminally investigate or prosecute any alcohol or drug abuse patient.[facility]imaIn the event this information is protected by the Federal Confidentiality of Alcohol and Drug Abuse Patient Records regulations: The Federal rules restrict any use of the information to criminally investigate or prosecute any alcohol or drug abuse patient.[facility]imaIn the event this information is protected by the Federal Confidentiality of Alcohol and Drug Abuse Patient Records regulations: The Federal rules restrict any use of the information to criminally investigate or prosecute any alcohol or drug abuse patient.[facility]imaIn the event this information is protected by the Federal Confidentiality of Alcohol and Drug Abuse Patient Records regulations: The Federal rules restrict any use of the information to criminally investigate or prosecute any alcohol or drug abuse patient.[facility]imaIn the event this information is protected by the Federal Confidentiality of Alcohol and Drug Abuse Patient Records regulations: The Federal rules restrict any use of the information to criminally investigate or prosecute any alcohol or drug abuse patient.[facility]imaIn the event this information is protected by the Federal Confidentiality of Alcohol and Drug Abuse Patient Records regulations: The Federal rules restrict any use of the information to criminally investigate or prosecute any alcohol or drug abuse patient.[facility]imaIn the event this information is protected by the Federal Confidentiality of Alcohol and Drug Abuse Patient Records regulations: The Federal rules restrict any use of the information to criminally investigate or prosecute any alcohol or drug abuse patient.[facility]imaIn the event this information is protected by the Federal Confidentiality of Alcohol and Drug Abuse Patient Records regulations: The Federal rules restrict any use of the information to criminally investigate or prosecute any alcohol or drug abuse patient.[facility]imaIn the event this information is protected by the Federal Confidentiality of Alcohol and Drug Abuse Patient Records regulations: The Federal rules restrict any use of the information to criminally investigate or prosecute any alcohol or drug abuse patient.[facility]imaIn the event this information is protected by the Federal Confidentiality of Alcohol and Drug Abuse Patient Records regulations: The Federal rules restrict any use of the information to criminally investigate or prosecute any alcohol or drug abuse patient.[facility]imaIn the event this information is protected by the Federal Confidentiality of Alcohol and Drug Abuse Patient Records regulations: The Federal rules restrict any use of the information to criminally investigate or prosecute any alcohol or drug abuse patient.[facility]imaIn the event this information is protected by the Federal Confidentiality of Alcohol and Drug Abuse Patient Records regulations: The Federal rules restrict any use of the information to criminally investigate or prosecute any alcohol or drug abuse patient.[facility]imaIn the event this information is protected by the Federal Confidentiality of Alcohol and Drug Abuse Patient Records regulations: The Federal rules restrict any use of the information to criminally investigate or prosecute any alcohol or drug abuse patient.[facility]imaIn the event this information is protected by the Federal Confidentiality of Alcohol and Drug Abuse Patient Records regulations: The Federal rules restrict any use of the information to criminally investigate or prosecute any alcohol or drug abuse patient.[facility]imaIn the event this information is protected by the Federal Confidentiality of Alcohol and Drug Abuse Patient Records regulations: The Federal rules restrict any use of the information to criminally investigate or prosecute any alcohol or drug abuse patient.[facility]imaIn the event this information is protected by the Federal Confidentiality of Alcohol and Drug Abuse Patient Records regulations: The Federal rules restrict any use of the information to criminally investigate or prosecute any alcohol or drug abuse patient.[facility]imaIn the event this information is protected by the Federal Confidentiality of Alcohol and Drug Abuse Patient Records regulations: The Federal rules restrict any use of the information to criminally investigate or prosecute any alcohol or drug abuse patient.[facility]imaIn the event this information is protected by the Federal Confidentiality of Alcohol and Drug Abuse Patient Records regulations: The Federal rules restrict any use of the information to criminally investigate or prosecute any alcohol or drug abuse patient.[facility]imaIn the event this information is protected by the Federal Confidentiality of Alcohol and Drug Abuse Patient Records regulations: The Federal rules restrict any use of the information to criminally investigate or prosecute any alcohol or drug abuse patient.[facility]imaIn the event this information is protected by the Federal Confidentiality of Alcohol and Drug Abuse Patient Records regulations: The Federal rules restrict any use of the information to criminally investigate or prosecute any alcohol or drug abuse patient.[facility]imaIn the event this information is protected by the Federal Confidentiality of Alcohol and Drug Abuse Patient Records regulations: The Federal rules restrict any use of the information to criminally investigate or prosecute any alcohol or drug abuse patient.[facility]imaIn the event this information is protected by the Federal Confidentiality of Alcohol and Drug Abuse Patient Records regulations: The Federal rules restrict any use of the information to criminally investigate or prosecute any alcohol or drug abuse patient.[facility]imaIn the event this information is protected by the Federal Confidentiality of Alcohol and Drug Abuse Patient Records regulations: The Federal rules restrict any use of the information to criminally investigate or prosecute any alcohol or drug abuse patient.[facility]imaIn the event this information is protected by the Federal Confidentiality of Alcohol and Drug Abuse Patient Records regulations: The Federal rules restrict any use of the information to criminally investigate or prosecute any alcohol or drug abuse patient.[facility]imaIn the event this information is protected by the Federal Confidentiality of Alcohol and Drug Abuse Patient Records regulations: The Federal rules restrict any use of the information to criminally investigate or prosecute any alcohol or drug abuse patient.[facility]imaIn the event this information is protected by the Federal Confidentiality of Alcohol and Drug Abuse Patient Records regulations: The Federal rules restrict any use of the information to criminally investigate or prosecute any alcohol or drug abuse patient.[facility]imaIn the event this information is protected by the Federal Confidentiality of Alcohol and Drug Abuse Patient Records regulations: The Federal rules restrict any use of the information to criminally investigate or prosecute any alcohol or drug abuse patient.[facility]imaIn the event this information is protected by the Federal Confidentiality of Alcohol and Drug Abuse Patient Records regulations: The Federal rules restrict any use of the information to criminally investigate or prosecute any alcohol or drug abuse patient.[facility]imaIn the event this information is protected by the Federal Confidentiality of Alcohol and Drug Abuse Patient Records regulations: The Federal rules restrict any use of the information to criminally investigate or prosecute any alcohol or drug abuse patient.[facility]imaIn the event this information is protected by the Federal Confidentiality of Alcohol and Drug Abuse Patient Records regulations: The Federal rules restrict any use of the information to criminally investigate or prosecute any alcohol or drug abuse patient.[facility]imaIn the event this information is protected by the Federal Confidentiality of Alcohol and Drug Abuse Patient Records regulations: The Federal rules restrict any use of the information to criminally investigate or prosecute any alcohol or drug abuse patient.[facility]imaIn the event this information is protected by the Federal Confidentiality of Alcohol and Drug Abuse Patient Records regulations: The Federal rules restrict any use of the information to criminally investigate or prosecute any alcohol or drug abuse patient.[facility]imaIn the event this information is protected by the Federal Confidentiality of Alcohol and Drug Abuse Patient Records regulations: The Federal rules restrict any use of the information to criminally investigate or prosecute any alcohol or drug abuse patient.[facility]imaIn the event this information is protected by the Federal Confidentiality of Alcohol and Drug Abuse Patient Records regulations: The Federal rules restrict any use of the information to criminally investigate or prosecute any alcohol or drug abuse patient.[facility]imaIn the event this information is protected by the Federal Confidentiality of Alcohol and Drug Abuse Patient Records regulations: The Federal rules restrict any use of the information to criminally investigate or prosecute any alcohol or drug abuse patient.[facility]imaIn the event this information is protected by the Federal Confidentiality of Alcohol and Drug Abuse Patient Records regulations: The Federal rules restrict any use of the information to criminally investigate or prosecute any alcohol or drug abuse patient.[facility]imaIn the event this information is protected by the Federal Confidentiality of Alcohol and Drug Abuse Patient Records regulations: The Federal rules restrict any use of the information to criminally investigate or prosecute any alcohol or drug abuse patient.[facility]imaIn the event this information is protected by the Federal Confidentiality of Alcohol and Drug Abuse Patient Records regulations: The Federal rules restrict any use of the information to criminally investigate or prosecute any alcohol or drug abuse patient.[facility]imaIn the event this information is protected by the Federal Confidentiality of Alcohol and Drug Abuse Patient Records regulations: The Federal rules restrict any use of the information to criminally investigate or prosecute any alcohol or drug abuse patient.[facility]imaIn the event this information is protected by the Federal Confidentiality of Alcohol and Drug Abuse Patient Records regulations: The Federal rules restrict any use of the information to criminally investigate or prosecute any alcohol or drug abuse patient.[facility]imaIn the event this information is protected by the Federal Confidentiality of Alcohol and Drug Abuse Patient Records regulations: The Federal rules restrict any use of the information to criminally investigate or prosecute any alcohol or drug abuse patient.[facility] Reason for Visit (unrecogniz ed section and [...] lower extremity Procedures CONSULT TO ORTHOPAEDICS OFFICE/OUTPATIENT [facility] MDM 60 MINUTES Ginger Lugo MD [address] [place] [address] Referral ID Status Reason Start Date Expiration Date V isits Requested Visits Authorized [id number] Closed PCP Requested Referral 03/28/2024 03/28/2025 1 1 Reason Comments Forms [place] disability f orms Reason Comments Established Patient [...] EXTREM W/O CONTRAST Torsten Ayers V, DO [address] [place] [address] [place] [address] Referral ID Status Reason Start Date Expiration Date V isits Requested Visits Authorized [id number] Closed Auto-Generate d Referral 05/13/2024 06/12/2025 1 [...] [facility] Diagnoses ov Procedures [place] [address] Referral ID Status Reason Start Date Expiration Date Visits Requested Visits Authorized [id number] Authorized Financial Clearance Required - Self Pay [...] knee arthroplasty (HCC) Rocco Barragan MD [address] [place] [address] Phone: tel: fax: [facility] [address] [place] [address] Phone: tel: fax: Referral ID Status Reason Start Date Expiration Date V isits Requested Visits Authorized [id number] Authorized 11/28/2024 11/28/2025 10 24 Reason Onset Date Comments Refill Request 01/04/2025 Reason Comments Letter No show #1 Reason Onset Date Comments Refill Request 04/07/2025 See notes Reason Onset Date Comments Refill Request 05/21/2025 Reason Comments Error (VOID this visit) Care Teams (unrecognized sec tion and content) Box Car Bracer Relationship Specialty Start Date End Date Ginger Lugo MD [address] [place] [address] PCP - General Family Practice 10/20/12 Box Car Bracer Relationship Specialty Start Date End Date Ginger Lugo MD [address] [place] [address] PCP - General Family Practice 10/20/12 Box Car Bracer Relationship Specialty Start Date End Date Ginger Lugo MD [address] [place] [id number] PCP - General Family Practice 10/20/12 Box Car Bracer Relationship Specialty Start Date End Date Ginger Lugo MD [facility] [place], [place] [id number] PCP - General Family Practice 10/20/12 Box Car Bracer Relationship Specialty Start Date End Date Ginger Lugo MD [address] [facility] [place] [address] PCP - General Family Practice 10/20/12 Box Car Bracer Relationship Specialty Start Date End Date Ginger Lugo MD [address] [facility] [place] [address] PCP - General Family Practice 10/20/12 Box Car Bracer Relationship Specialty Start Date End Date Ginger Lugo MD [address] [facility] [place] [address] PCP - General Family Practice 10/20/12 Box Car Bracer Relationship Specialty Start Date End Date Ginger Lugo MD [address] [place] [place] [address] PCP - General Family Practice 10/20/12 Box Car Bracer Relationship Specialty Start Date End Date Ginger Lugo MD [address] [place] [address] PCP - General Family Medicine 10/20/12 Box Car Bracer Relationship Specialty Start Date End Date Ginger Lugo MD [address] [place] [address] PCP - General Family Medicine 10/20/12 Box Car Bracer Relationship Specialty Start Date End Date Ginger Lugo MD [address] [place] [place] [address] PCP - General Family Medicine 10/20/12 Box Car Bracer Relationship Specialty Start Date End Date Ginger Lugo MD [address] [place] [place] [address] PCP - General Family Medicine 10/20/12 Box Car Bracer Relationship Specialty Start Date End Date Ginger Lugo MD [address] [place] [address] PCP - General Family Medicine 10/20/12 Team [...] MD Admit Provider, Attending Provid er Active Box Car Bracer Relationship Specialty Start Date End Date Ginger Lugo MD [address] [place] [address] PCP - General Family Medicine 10/20/12 Team Status: Inactive Member Role Status Dates Dr. Ginger Lugo MD Primary Care Provider Active Dr. Ashley Patton MD Attending Provider Active Box Car Bracer Relationship Specialty Start Date End Date Ginger Lugo MD [address] [place], [place] [address] PCP - General Family Medicine 10/20/12 Box Car Bracer Relationship Specialty Start Date End Date Ginger Lugo MD [address] [place], [place] [address] PCP - General Family Medicine 10/20/12 Team [...] MD Admit Provider, Attending Prov ider Active Box Car Bracer Relationship Specialty Start Date End Date Ginger Lugo MD [address] [place], [place] [id number] PCP - General Family Medicine 10/20/12 Team [...] Dr. Sen Guzman MD Other Provider Active Box Car Bracer Relationship Specialty Start Date End Date Ginger Lugo MD [address] [place], [place] [address] PCP - General Family Medicine 10/20/12 Box Car Bracer Relationship Specialty Start Date End Date Ginger Lugo MD [address] [place], [place] [address] PCP - General Family Medicine 10/20/12 Box Car Bracer Relationship Specialty Start Date End Date Ginger Lugo MD [address] [place], [place] [address] PCP - General Family Medicine 10/20/12 Box Car Bracer Relationship Specialty Start Date End Date Ginger Lugo MD [address] [place] [address] PCP - General 10/07/22 Box Car Bracer Relationship Specialty Start Date End Date Ginger Lugo MD [address] [place], [place] [address] PCP - General 10/07/22 Box Car Bracer Relationship Specialty Start Date End Date Ginger Lugo MD [address] [place] [address] PCP - General 10/07/22 Team Status: Active Member Role Status Dates Dr. Ginger Lugo MD Primary Care Provider Active Dr. Fernandez Bryant DO Emergency Provider Active Dr. Gerardo Watkins DO Admit Provider, Attending Pro vider Active Box Car Bracer Relationship Specialty Start Date End Date Ginger Lugo MD [address] [place] [address] PCP - General Family Medicine 10/20/12 Team [...] Dr. Jude Mckeon MD Other Provider Active Box Car Bracer Relationship Specialty Start Date End Date Ginger Lugo MD [address] [place] [address] PCP - General Family Medicine 10/20/12 Box Car Bracer Relationship Specialty Start Date End Date Ginger Lugo MD [address] [place] [address] PCP - General Family Medicine 10/20/12 Box Car Bracer Relationship Specialty Start Date End Date Ginger Lugo MD [address] [place] [address] PCP - General Family Medicine 10/20/12 Box Car Bracer Relationship Specialty Start Date End Date Ginger Lugo MD [address] [place] [address] PCP - General Family Medicine 10/20/12 Box Car Bracer Relationship Specialty Start Date End Date Ginger Lugo MD [address] [place] [address] PCP - General Family Medicine 10/20/12 Box Car Bracer Relationship Specialty Start Date End Date Ginger Lugo MD [address] [place] [address] PCP - General Family Medicine 10/20/12 Box Car Bracer Relationship Specialty Start Date End Date Ginger Lugo MD [address] [place] [address] PCP - General Family Medicine 10/20/12 Box Car Bracer Relationship Specialty Start Date End Date Ginger Lugo MD [address] [place] [address] PCP - General Family Medicine 10/25/21 Box Car Bracer Relationship Specialty Start Date End Date Ginger Lugo MD [address] [place] [address] PCP - General Family Medicine 10/20/12 Box Car Bracer Relationship Specialty Start Date End Date Ginger Lugo MD [address] [place] [address] PCP - General Family Medicine 10/20/12 Box Car Bracer Relationship Specialty Start Date End Date Ginger Lugo MD [address] [place] [address] PCP - General Family Medicine 10/20/12 Box Car Bracer Relationship Specialty Start Date End Date Ginger Lugo MD [address] [place] [address] PCP - General Family Medicine 10/20/12 Box Car Bracer Relationship Specialty Start Date End Date Ginger Lugo MD [address] [place], [place] [address] PCP - General Family Medicine 10/20/12 Box Car Bracer Relationship Specialty Start Date End Date Ginger Lugo MD [address] [place] [address] PCP - General Family Medicine 10/20/12 Box Car Bracer Relationship Specialty Start Date End Date Ginger Lugo MD [address] [facility] [place] [address] PCP - General Family Medicine 10/20/12 Box Car Bracer Relationship Specialty Start Date End Date Ginger Lugo MD [address] [facility] [place] [address] PCP - General Family Medicine 10/20/12 Box Car Bracer Relationship Specialty Start Date End Date Ginger Lugo MD [address] [facility] [place] [address] PCP - General Family Medicine 10/20/12 Box Car Bracer Relationship Specialty Start Date End Date Ginger Lugo MD [address] [place] [address] PCP - General Family Medicine 10/20/12 Box Car Bracer Relationship Specialty Start Date End Date Ginger Lugo MD [address] [facility] [place] [address] PCP - General Family Medicine 10/20/12 Box Car Bracer Relationship Specialty Start Date End Date Ginger Lugo MD [address] [facility] [place] [address] PCP - General Family Medicine 10/20/12 Box Car Bracer Relationship Specialty Start Date End Date Ginger Lugo MD [address] [facility] [place] [address] PCP - General Family Medicine 10/20/12 Box Car Bracer Relationship Specialty Start Date End Date Ginger Lugo MD [address] [place] [address] PCP - General Family Medicine 10/20/12 Box Car Bracer Relationship Specialty Start Date End Date Ginger Lugo MD [address] [place], [place] [address] PCP - General Family Medicine 10/20/12 Box Car Bracer Relationship Specialty Start Date End Date Ginger Lugo MD [address] [place], [place] [address]71 PCP - General Family Medicine 10/20/12 Box Car Bracer Relationship Specialty Start Date End Date Ginger Lugo MD [address] [place] [address] PCP - General Family Medicine 10/20/12 Box Car Bracer Relationship Specialty Start Date End Date Ginger Lugo MD [address] [place] [address] PCP - General Family Medicine 10/20/12 Box Car Bracer Relationship Specialty Start Date End Date Ginger Lugo MD [address] [place] [address] PCP - General Family Medicine 10/20/12 Box Car Bracer Relationship Specialty Start Date End Date Ginger uLgo MD [address] [place] [address] PCP - General Family Medicine 10/20/12 Box Car Bracer Relationship Specialty Start Date End Date Ginger Lugo MD [address] [place], [place] [address]51 PCP - General Family Medicine 10/20/12 Box Car Bracer Relationship Specialty Start Date End Date Ginger Lugo MD [address] [place], [place] [address]461 PCP - General Family Medicine 10/20/12 Box Car Bracer Relationship Specialty Start Date End Date Ginger Lugo MD [address] [facility] [place] [address] PCP - General Family Medicine 10/20/12 Maryam Retana, TEA BLENDER.BURNER SHAFT [address] [facility] [place] [address] Service Rig Operator Family [facility] 08/15/24 Nuha Mosquera TEA BLENDER.BURNER SHAFT [address] [facility] [place] [address] [facility] 08/15/24 Box Car Bracer Relationship Specialty Start Date End Date Ginger Lugo MD [address] [facility] [place] [address] PCP - General Family Medicine 10/20/12 Maryam Retana TEA BLENDER.BURNER SHAFT [address] [facility] [place] [address] Service [facility] 08/15/24 Nuha Mosquera TEA BLENDER.BURNER SHAFT [address] [facility] [place] [address] Service Rig [facility] 08/15/24 Box Car Bracer Relationship Specialty Start Date End Date Ginger Lugo MD [address] [facility] [place] [address] PCP - General Family Medicine 10/20/12 Maryam Retana, TEA BLENDER.BURNER SHAFT [address] [facility] [place] [address] Service Rig Operator Family Medicine 08/15/24 Nuha Mosquera APRN.BURNER SHAFT [address] [facility] [place] [address] Service Rig [facility] 08/15/24 Box Car Bracer Relationship Specialty Start Date End Date Ginger Lugo MD [address] [facility] [place] [address] PCP - General Family Medicine 10/20/12 Maryam Retana, KURT.BURNER SHAFT [address] [facility] [place] [address] Service Rig [facility]Mer[facility] 08/15/24 Nuha Mosquera APRN.BURNER SHAFT [address] [facility] [place] [address] Service Rig [facility] 08/15/24 Box Car Bracer Relationship Specialty Start Date End Date Ginger Lugo MD [address] [facility] [place] [address] PCP - General Family Medicine 10/20/12 Maryam Retana, TEA BLENDER.BURNER SHAFT [address] [facility] [place] [address] Service Rig [facility] 08/15/24 Nuha Mosquera TEA BLENDER.BURNER SHAFT [address] [facility] [place] [address] Service Rig [facility] 08/15/24 Box Car Bracer Relationship Specialty Start Date End Date Ginger Lugo MD [address] [facility] [place] [address] PCP - General Family Medicine 10/20/12 Maryam Retana, TEA BLENDER.BURNER SHAFT [address] [place] [address] Service Rig Operator Family Medicine 08/15/24 Nuha Mosquera APRN.BURNER SHAFT [address] [place] [address] Service Rig Operator Family Medicine 08/15/24 Box Car Bracer Relationship Specialty Start Date End Date Ginger Lugo MD [address] [place] [address] PCP - General Family Medicine 10/20/12 Maryam Retana APRN.BURNER SHAFT [address] [place] [address] Service Rig Operator Family Medicine 08/15/24 Nuha Mosquera TEA BLENDER.BURNER SHAFT [address] [place] [address] Service Rig Operator Family [facility] 08/15/24 Box Car Bracer Relationship Specialty Start Date End Date Ginger Lugo MD [address] [place] [address] PCP - General Family Medicine 10/20/12 Maryam Retana TEA BLENDER.BURNER SHAFT [address] [place] [address] Service Rig Operator Family Medicine 08/15/24 Nuha Mosquera TEA BLENDER.BURNER SHAFT [address] [place] [address] Service Rig Operator Family Medicine 08/15/24 Box Car Bracer Relationship Specialty Start Date End Date Ginger Lugo MD [address] [place] [address] PCP - General Family Medicine 10/20/12 Maryam Retana APRN.BURNER SHAFT [address] [place] [address] Service Rig Operator Family Medicine 08/15/24 Nuha Mosquera APRN.BURNER SHAFT [address] [place] [address] Service Rig Operator Family Medicine 08/15/24 Box Car Bracer Relationship Specialty Start Date End Date Ginger Lugo MD [address] [place] [address] PCP - General Family Medicine 10/20/12 Maryam Retana APRN.BURNER SHAFT [address] [place] [address] Service Rig Operator Family Medicine 08/15/24 Nuha Mosquera TEA BLENDER.BURNER SHAFT [address] [place] [address] [facility] 08/15/24 Box Car Bracer Relationship Specialty Start Date End Date Ginger Lugo MD [address] [place] [address] PCP - General Family Medicine 10/20/12 Maryam Retana TEA BLENDER.BURNER SHAFT [address] [place] [address] Service Rig Operator Family Medicine 08/15/24 Nuha Mosquera TEA BLENDER.BURNER SHAFT [address] [place] [address] Service Rig Operator Family Medicine 08/15/24 Box Car Bracer Relationship Specialty Start Date End Date Ginger Lugo MD [address] [facility] [place] [address] PCP - General Family Medicine 10/20/12 Maryam Retana, TEA BLENDER.BURNER SHAFT [address] [place] [address] Service Rig Operator Family Medicine 08/15/24 Nuha Mosquera, TEA BLENDER.BURNER SHAFT [address] [place] [address] Service Rig [facility] 08/15/24 Box Car Bracer Relationship Specialty Start Date End Date Ginger Lugo MD [address] [place] [address] PCP - General Family Medicine 10/20/12 Maryam Retana, TEA BLENDER.BURNER SHAFT [address] [place] [address] Service Rig [facility]Mer[facility] 08/15/24 Nuha Mosquera, TEA BLENDER.BURNER SHAFT [address] [place] [address] Service Rig Operator Family Medicine 08/15/24 Box Car Bracer Relationship Specialty Start Date End Date Ginger Lugo MD [address] [place] [address] PCP - General Family Medicine 10/25/21 Box Car Bracer Relationship Specialty Start Date End Date Ginger Lugo MD [address] [place] [address] PCP - General Family Medicine 10/25/21 Box Car Bracer Relationship Specialty Start Date End Date Ginger Lugo MD [address] [place], [place] [address] PCP - General Family Medicine 10/25/21 Box Car Bracer Relationship Specialty Start Date End Date Ginger Lugo MD [address] [place], [place] [address]40[address] PCP - General Family Medicine 10/25/21 Box Car Bracer Relationship Specialty Start Date End Date Ginger Lugo MD [address] [place], [place] [address] PCP - General Family Medicine 10/25/21 Box Car Bracer Relationship Specialty Start Date End Date Ginger Lugo MD [address] [place], [place] [address]56[address] PCP - General Family Medicine 10/20/12 Maryam Retana APRN.BURNER SHAFT [address] [place], [place] [address]34[address] Service Rig Operator Family Medicine 08/15/24 Nuha Mosquera APRN.BURNER SHAFT [address] [place], [place] [address]85[address] Service Rig Operator Family Medicine 08/15/24 Box Car Bracer Relationship Specialty Start Date End Date Ginger Lugo MD [address] [place], [place] [address]14[address] PCP - General Family Medicine 10/20/12 Maryam Retana APRN.BURNER SHAFT [address] [facility] [place] [address] Service Rig Operator Family Medicine 08/15/24 Nuha Mosquera APRN.BURNER SHAFT [address] [facility] [place] [address] Service Rig Operator Family Medicine 08/15/24 Box Car Bracer Relationship Specialty Start Date End Date Ginger Lugo MD [address] [facility] [place] [address] PCP - General Family Medicine 10/20/12 Maryam Retana, TEA BLENDER.BURNER SHAFT [address] [facility] [place] [address] Service Rig Operator Family Medicine 08/15/24 Nuha Mosquera TEA BLENDER.BURNER SHAFT [address] [facility] [place] [address] Service Rig OperatorMer[facility] Medicine 08/15/24 Box Car Bracer Relationship Specialty Start Date End Date Ginger Luog MD [address] [facility] [place] [address] PCP - General Family Medicine 10/20/12 Maryam Retana, TEA BLENDER.BURNER SHAFT [address] [facility] [place] [address] Service Rig Operator Family Medicine 08/15/24 Nuha Mosquera TEA BLENDER.BURNER SHAFT [address] [facility] [place] [address] Service Rig Operator Family Medicine 08/15/24 Box Car Bracer Relationship Specialty Start Date End Date Ginger Lugo MD [address] [facility] [address] PCP - General Family Medicine 10/20/12 Maryam Retana, TEA BLENDER.BURNER SHAFT [address] [facility] [place] [address] Service Rig Operator Family Medicine 08/15/24 Nuha Mosquera APRN.CNP [address] [place] [address] Service Rig Operator [facility] 08/15/24 Box Car Bracer Relationship Specialty Start Date End Date Ginger Lugo MD [address] [place] [address] PCP - General 10/07/22 <item> Privacy Markings [...] ider: Lucina Olivo RN)[id number] (Stopped - Provider: Lcuina Olivo RN) sodium chloride 0.9 % bolus 1,000 mL (COMPLETED) 1,000 mL, intravenous, at 2,000 mL/hr, Administer over 30 Minutes, Once, On Thu09/22/23 at 2040, For 1 dose 2040 (New Bag - Prov ider: Lucina Olivo RN)[id number] (Stopped - Provider: Luicna Olivo RN) FOR RECORDS PERTAINING TO PATIENTS [...] BE BASED ON THE PRIMARY CLINICAL RECORDS. [employer] provides no warranty or guarantee of the accuracy or completeness of information in this document.
[2025-06-02 03:05] LABS: Magnesium 1.7 mg/dL (1.5-2.2)
[2025-06-02] MEDS: 0.9% Normal Saline (1000mL) 1,000 ML 70 ML IV (03:06)
[2025-06-02 03:59] LABS: Hematocrit 41.3 % (40-54); Hemoglobin 13.7 g/dL (13.0-16.5); Immature Granulocytes Count 0.190 X10^3/uL (0.0-0.0); Mean Corp Hgb Conc 33.2 g/dL (32-36); Mean Corpuscular Volume 83.4 fL (80-94); Mean Platelet Vol. 9.7 fl (6.2-12.0); NRBC Flagged by Analyzer 0 % (0-5); Platelet Count 253 K/mm3 (150-450); RBC Distribution Width CV 14.6 % (11.6-14.6); RBC Distribution Width SD 43.4 fl (35.1-43.9); Red Blood Count 4.95 M/mm3 (4.6-6.2); White Blood Count 15.6 K/mm3 (4.4-11.0)
[2025-06-02] MEDS: Potassium Phosphate 45 MM in 0.9% Normal Saline (500mL Bag) 500 ML 85 MM IV (04:04)
[2025-06-02 04:11] LABS: Prothrombin Time (Protime)PT. 13.8 SECONDS (11.7-14.9)
[2025-06-02 04:22] LABS: AST(SGOT) 19 U/L (<=37); Alanine Aminotransfer ALT/SGPT 15 U/L (<=46); Albumin, Serum 4.1 g/dL (3.5-5.0); Alkaline Phosphatase 110 U/L (40-129); Anion Gap 14 (5-15); BUN 16 mg/dL (4-19); BUN/Creat Ratio 16.9 RATIO (10-20); Calcium,Total 9.1 mg/dL (7.6-11.0); Carbon Dioxide 24.1 mmol/L (21.0-32.0); Chloride 97 mmol/L (98-108); Estimated Creatinine Clearance 113.67 ml/min (50-250); Globulin 3.4 g/dL (2.2-4.2); Glucose 191 mg/dL (70-99); Potassium 3.5 mmol/L (3.3-5.1)
[2025-06-02] MEDS: Aspirin E.C. 81 MG Tablet PO (05:41)
[2025-06-02 05:49] VITALS: BMI 42.0
--- NOTE | 2025-06-02 05:55 | EKG12_ITS ---
Test Reason : STRESS TEST Blood Pressure : */* mmHG Vent. Rate : 64 BPM Atrial Rate : 64 BPM P-R Int : 138 ms QRS Dur : 102 ms QT Int : 438 ms P-R-T Axes : 71 27 38 degrees QTcB Int : 451 ms Normal sinus rhythm Normal ECG When compared with ECG of 01-Jun-2025 19:25, MANUAL COMPARISON REQUIRED DATA IS UNCONFIRMED Confirmed by AKIRA REICH, IDALMIS ([id number]), brands editor RUBEN CARVAJAL ([id number]) on 06/02/2025 1:12:07 PM Referred By: Confirmed By: IDALMIS CHAMPION MD
[2025-06-02 06:40] LABS: Cholesterol 173 mg/dL (<=200); Low Density Lipoprotein Calc. 95 mg/dL; Triglycerides 183 mg/dL; Very Low Density Lipoprotein 37 mg/dL (5-40); cholesterol:hdl ratio screen 4.17
[2025-06-02 07:53] LABS: Reflex Lactate? Y
[2025-06-02 09:56] VITALS: BP 134/78; PULSE 66; RESP 16; TEMP 36.6; O2SAT 98
[2025-06-02] MEDS: Isosorbide DN 10 MG Tablet 5 MG PO (10:01)
[2025-06-02] MEDS: FLU VACCINE 2025-26(6MOS UP) 45 MCG/0.5 ML SYRINGE IM (10:14)
[2025-06-02] MEDS: 0.9% Saline Lock 10 ML Syringe IV (10:14)
--- NOTE | 2025-06-02 11:10 | CASEMGMT ---
RN CM Face to Face with patient for initial transition planning/care coordination assessment. RN CM introduced self and role at [facility]. Patient sitting in chair, alert and oriented, at bedside. Patient willing to participate in assessment and is able to answer all questions appropriately. Care providers, pharmacy, and demographics verified. Strata: 2 PCP: Dee Specialists: Abdi, costume cutter Preferred Pharmacy: [facility] Insurance: [facility] Prescription Benefit: yes Living Will/HPOA: none LNOK: , daughter Living Arrangements: Patient lives with in a bi-level home. Patient is independent and able to ambulate stairs. Transportation: self, DME/HHC: Patient has shower chair, raised toilet, cane, walker, and cpap at home Patient wishes to discharge home, denies need for home health at this time. Patient states he has no further needs or concerns at this time. CM to follow for discharge planning needs that may arise. Disposition Plan: Patient to discharge home with family support and follow-up plans in place. Aviva KINSEY, RN, CM
--- NOTE | 2025-06-02 11:13 | STRESSREP_ITS ---
Stress Test Report Pharmacologic myocardial perfusion stress test. Indication; 54-year-old patient history of CAD Has a prior PCI stent of proximal and mid LAD Known history of diabetes mellitus Chronic lymphocytic leukemia/CLL. Tobacco dependence, Stress protocol: Resting EKG demonstrates. Normal sinus rhythm. Incomplete right bundle branch block. Poor R wave progression across the chest leads 0.4 mg of regadenoson was infused per usual protocol followed by rapid intravenous saline flush injection continuous EKG monitoring was performed. The maximum heart rate attained was 97 bpm which was 58% of maximum predicted heart . Stress EKG showed[, no significant change from the resting EKG, with maximum heart rate of 97 bpm. Arrhythmia: No arrhythmia demonstrated Symptoms: Patient had no symptoms of chest pain Blood pressure at rest: [142/88 mmHg, blood pressure at the end of stress: 142/88 mmHg Myocardial perfusion protocol. 15 mCi ]of Technetium 99m Sestamibi was injected at rest. [ 0.4 mg ]of Regadenoson was infused per usual protocol peak infusion[44 mCi ]of Technetium 99m sestamibi was injected. Stress images were obtained stress and rest images were reconstructed and compared in the short axis vertical and horizontal long axis. Gated images were also obtained Perfusion SPECT analysis: Review of the images demonstrate normal uptake of sestamibi at rest, post stress images demonstrate similar uptake of sestamibi to the resting images, homogeneous tracer uptake With no evidence of reversible myocardial ischemia. Gated SPECT analysis: The gated ejection fraction is 69%, normal LV wall motion Conclusion: Negative Lexiscan sestamibi myocardial perfusion study for reversible myocardial ischemia Normal LV systolic function Jude Mckeon MD,FACC,[facility]
--- NOTE | 2025-06-02 12:46 | CHAPLAIN ---
Type of Pastoral Visit _x_ Initial Visit ___ Follow-up Visit ___ On-call Visit ___ General Patient Visit ___ Spiritual Assessment ___ Family Conference ___ Bereavement ___ Rapid Response ___ Code Blue ___ Other (describe below) Pastoral Care Referral From _x__ Patient ___ Family ___ Nurse ___ Physician ___ Trap Setter ___ Utilization Review Rn ___ Other (describe below) Sacrament/Intervention _x__ Active listening ___ Anointing ___ Moravian ___ Bereavement ___ Communion ___ Catarina exploration ___ _x__ Life review _x__ Prayer ___ Reconciliation ___ Sacrament of Sick _x__ Supportive presence ___ Wedding ___ Other (describe below) Pastoral Comments patient and spouse are in the room; pt is waiting on test results and he explains what happened and his history of heart issues; pt admits to be anxious about results and speaks of his hope to go home; pt asks for a prayer for his support; presence welcomed and acknowledged as helpful
[2025-06-02 16:02] VITALS: BP 125/71; PULSE 73; RESP 16; TEMP 36.6; O2SAT 98
--- NOTE | 2025-06-02 16:35 | DCINST_ITS ---
Discharge Instructions DC O2, CPAP, BIPAP needs Home O2 Discharge instructions: No Dressing / Incision Discharge Activity: Return to Normal Activity Dressing / Incision Call your doctor if you observe: Fever of 101 or Higher, Shortness of breath, Dizziness, Fainting spells, Swelling in the ankles, Chest pain and Increased palpitations (irregular heartbeat) Follow Up Care Test Results: Test results from this visit will be discussed in further detail at your follow- up appointment, if applicable. Discharge Plan Admission Admit Date/Time: 06/02/25 01:40 Attending Provider: Jose Colmenares Primary Care Provider: Sonny Price Consulting Providers: Vladislav Romano Instructions Additional Instructions / Restrictions: Follow-up primary care doctor in 3 to 5 days to monitor your kidney function and phosphorus level Discharge Orders/Prescriptions Prescriptions: Continued metoprolol succinate 50 mg tablet extended release 24 hr 50 mg PO QHS atorvastatin 40 mg tablet 40 mg PO QHS paroxetine HCl 40 mg tablet 40 mg PO QHS metformin 500 mg tablet 1,000 mg PO BID amlodipine 10 MG tablet 10 mg PO QHS levothyroxine 125 MCG tablet 125 mcg PO DAILY glimepiride 2 mg tablet 2 mg PO DAILY isosorbide dinitrate 5 mg tablet 5 mg PO BID Rx Instructions: allow nitrate-free interval of 12-14 hrs per 24-hr period folic acid 1 mg tablet 1 mg PO DAILY Mounjaro 2.5 mg/0.5 mL pen injector 2.5 mg subcut QWEEK nitroglycerin 0.4 mg Tablet, Sublingual 0.4 mg sublingual Q5M PRN (Reason: CHEST PAIN ) Qty: 14 0RF aspirin 81 mg tablet,delayed release (DR/EC) 81 mg PO DAILY Qty: 90 3RF Referrals / Follow Up: Sonny Price MD [Primary Care Provider, Medical] - Within 1 Week Disposition Disposition (needs filled in before D/C Order can be placed): Home, Self Care
--- NOTE | 2025-06-02 16:40 | PCM.DC.SUM ---
Providers Date of Admission: 06/02/25 Primary Care Physician: Dr. Sonny Price MD Reason For Visit: CHEST PAIN, LEUKOCYTOSIS OF 19.5K WITH LEFT-SHIFT Diagnosis Discharge Diagnosis (1) Chest pain: Status: Acute Code(s): R07.9 - Chest pain, unspecified Qualifiers: Chest pain type: unspecified Qualified Code(s): R07.9 - Chest pain, unspecified (2) History of coronary artery stent placement: Status: Acute Code(s): Z95.5 - Presence of coronary angioplasty implant and graft (3) Hypophosphatemia: Status: Acute Code(s): E83.39 - Other disorders of phosphorus metabolism (4) Morbid obesity with BMI of 40.0-44.9, adult: Status: Acute Code(s): E66.01 - Morbid (severe) obesity due to excess calories; Z68.41 - Body mass index [BMI] 40.0-44.9, adult (5) JOSIAH (obstructive sleep apnea): Status: Chronic Code(s): G47.33 - Obstructive sleep apnea (adult) (pediatric) (6) Diabetes: Status: Acute Code(s): E11.9 - Type 2 diabetes mellitus without complications Qualifiers: Diabetes mellitus type: type 2 Diabetes mellitus nursing home insulin use: without nursing home use Diabetes mellitus complication status: without complication Qualified Code(s): E11.9 - Type 2 diabetes mellitus without complications Medications at Discharge Home Medications amlodipine 10 mg tablet 10 mg PO QHS BLOOD PRESSURE 03/15/18 levothyroxine 125 mcg tablet 125 mcg PO DAILY THYROID 02/08/19 atorvastatin 40 mg tablet 40 mg PO QHS CHOLESTEROL 10/09/22 metformin 500 mg tablet 1,000 mg PO BID BLOOD SUGARS 10/09/22 paroxetine HCl 40 mg tablet 40 mg PO QHS DEPRESSION 10/09/22 metoprolol succinate 50 mg tablet,extended release 24 hr 50 mg PO QHS BLOOD PRESSURE 10/13/22 glimepiride 2 mg tablet 2 mg PO DAILY blood sugar 10/07/23 aspirin 81 mg tablet,delayed release 81 mg PO DAILY #90 TABLETS 08/25/24 folic acid 1 mg tablet 1 mg PO DAILY supplement 06/02/25 isosorbide dinitrate 5 mg tablet 5 mg PO BID angina 06/02/25 nitroglycerin 0.4 mg sublingual tablet 0.4 mg sublingual Q5M PRN CHEST PAIN #14 tabs 06/02/25 tirzepatide 2.5 mg/0.5 mL subcutaneous pen injector (Mounjaro) 2.5 mg subcut QWEEK blood sugar 06/02/25 Hospital Course Operations None Procedures 2-D Echocardiogram and Nuclear stress test Summary of Care Provided Minutes Spent on Discharge: 35 Hospital Course: Per HPI: ROMEL KING, is a 54 M with a past medical history of essential hypertension; on metoprolol and amlodipine nightly, hyperlipidemia; on atorvastatin, hypothyroidism; on levothyroxine, former tobacco abuse, morbid (class III) obesity; with BMI of 42.9 this admission, JOSIAH; on BiPAP, DM-2; of unknown control on metformin twice daily plus glimepiride and tirzepatide weekly, CAD; s/p CA with subsequent mid-LAD stent placement (2022) on baby aspirin and as needed SL NTG, history of syncope and collapse, depression with anxiety; on paroxetine, history of sepsis with previous ESBL E. coli infection, history of colitis, history of renal calculi, OA and chronically elevated WBC; likely due to CLL followed by Dr. Cason who presents to [facility] ER complaining of chest pain. Mr. King reports his symptoms began ~5:30 PM on the evening of June 01, 2025 with the abrupt onset of chest pain that began at rest and was substernal, nonradiating and pressure-like like an elephant sitting on his chest that was similar to the angina that heralded his prior stent placement. He then activated EMS and was treated with ECASA and NTG which significantly improved his pain. He also admits to associated shortness of breath with his chest pain that improved once his chest pain defervesced. He denies associated fever, chills, nausea, vomiting, diarrhea, constipation, abdominal pain, dysuria, hematuria, headache or rash. In the ER he was noted to have Leukocytosis of 19.5 K with Left-shift of 1.3% consistent with no evidence of infection in the setting of previously known suspected CLL complicated by Chest Pain; that improved after enteric-coated aspirin and nitroglycerin in the setting of previously known CAD with a corresponding CXR that revealed no acute findings in addition to laboratory evidence of Hypophosphatemia of 1.1 mg/dL present on admission. He was then admitted to the PCU for ongoing care for a stay that is expected to extend beyond 2 midnights. Hospital Course: 1. Chest pain rule out/CAD status post stent/essential HTN/HLD?54-year-old male with previous history of a cardiac stent presented to the hospital with chest pain/pressure that resolved with nitroglycerin. Echocardiogram demonstrated an EF of 60% and stage I diastolic dysfunction and stress test was nonischemic. He states that his chest pain is completely resolved and his troponins were also all less than 10 on the high-sensitivity troponin. He requested to be discharged today and expressed understanding of the risks and benefits of going home and would like to go home. His phosphorus was very low at 1.1 and this was replaced. Initially was rechecked after infusion and it was 5.8 but the feeling that this was likely falsely elevated given the proximity of the test and when the infusion was completed a recheck was done and shows his phosphorus 4.7. I did recommend that he follow-up with his PCP in 3 to 5 days for lab work and monitoring. He also requested a refill on his nitroglycerin which was done. 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 2. Type 2 diabetes, hypothyroidism, anxiety, depression, morbid obesity are all chronic medical conditions which complicate his care. His home medications were continued where appropriate. Of note he does have a chronic leukocytosis however I do not believe that he has been evaluated to determine whether he has CML/CLL or precursor he states that he is being monitored by his PCP. Physical Exam Narrative General: Alert, Oriented x3, Cooperative, No apparent distress, morbidly obese HEENT: Atraumatic, PERRLA, EOMI, Normocephalic Oral: Moist Mucosa Neck: Supple, No JVD Lungs: Diminished, Normal air movement, No rhonchi, No wheeze, No rales Cardiovascular: Regular rate, Regular Rhythm, Normal S1, Normal S2, No murmurs Abdomen: Soft, Non Tender, Non-Distended, No Hepato-splenomegaly Extremities: No edema, Capillary Refill Less than 3 Seconds Skin: No rashes, No breakdown Musculoskeletal: No Tenderness to Palpation of Joints or Extremities Neurological: No focal neurological deficits, moves all extremities Psych/Mental Status: Normal Affect, Appropriate Weight / BMI Weight Weight: 277 lb 5.464 oz Body Mass Index (BMI) 42.0 ABG / Lab / Microbiology Data 06/02/25 03:45 06/02/25 03:45 Laboratory: Laboratory Results - last 24 hr 06/01/25 00:25: D-Dimer Quant (PE/DVT) 0.31 06/01/25 20:19: WBC 19.5 H, RBC 4.94, Hgb 13.8, Hct 41.2, MCV 83.4, MCH 27.9, MCHC 33.5, RDW Std Deviation 43.0, RDW Coeff of Melva 14.3, Plt Count 256, MPV 9.6, Immature Gran % (Auto) 1.300 H, Neut % (Auto) 76.5 H, Lymph % (Auto) 16.7 L, Douglas % (Auto) 4.1, Eos % (Auto) 1.1, Baso % (Auto) 0.3, Absolute Neuts (auto) 14.9 H, Absolute Lymphs (auto) 3.26, Nucleated RBC % 0, Sodium 137, Potassium 3.7, Chloride 99, Carbon Dioxide 25.1, Anion Gap 13, BUN 19, Creatinine 1.08, Estim Creat Clear Calc 102.01, Est GFR (MDRD) Non-Af 82, BUN/Creatinine Ratio 17.5, Glucose 103 H, Calcium 9.5, Troponin T High Sens 9 06/01/25 22:39: Troponin T Hi Sens 2 Hr < 6 06/02/25 00:25: Phosphorus 1.1 L*, Magnesium 1.7, Troponin T Hi Sens 4Hr < 6 06/02/25 01:30: Urine Color Yellow, Urine Clarity Clear, Urine pH 6.0, Ur Specific [place] 1.025, Urine Protein 30 H, Urine Glucose (UA) Normal, Urine Ketones Negative, Urine Occult Blood Negative, Urine Nitrite Negative, Urine Bilirubin Negative, Urine Urobilinogen Normal, Ur Leukocyte Esterase 25 H, Urine RBC 0-5 SEEN, Urine WBC 0-5 SEEN, Ur Squamous Epith Cells 0-5 SEEN, Urine Bacteria 0 SEEN, Urine Mucus 0 SEEN 06/02/25 03:01: POC Glucose 212 H 06/02/25 03:45: WBC 15.6 H, RBC 4.95, Hgb 13.7, Hct 41.3, MCV 83.4, MCH 27.7, MCHC 33.2, RDW Std Deviation 43.4, RDW Coeff of Melva 14.6, Plt Count 253, MPV 9.7, Immature Gran % (Auto) 1.200 H, Neut % (Auto) 74.2 H, Lymph % (Auto) 18.6 L, Douglas % (Auto) 4.0, Eos % (Auto) 1.6, Baso % (Auto) 0.4, Absolute Neuts (auto) 11.6 H, Absolute Lymphs (auto) 2.89, Nucleated RBC % 0, PT 13.8, INR 1.0, Sodium 135, Potassium 3.5, Chloride 97 L, Carbon Dioxide 24.1, Anion Gap 14, BUN 16, Creatinine 0.96, Estim Creat Clear Calc 113.67, Est GFR (MDRD) Non-Af 93, BUN/Creatinine Ratio 16.9, Glucose 191 H, Hemoglobin A1c 6.5 H, Lactic Acid 2.2 H*, Calcium 9.1, Total Bilirubin 0.96, AST 19, ALT 15, Alkaline Phosphatase 110, Total Protein 7.5, Albumin 4.1, Globulin 3.4, Albumin/Globulin Ratio 1.2, Triglycerides 183, Cholesterol 173, LDL Cholesterol, Calc 95, VLDL Cholesterol 37, HDL Cholesterol 42, Cholesterol/HDL Ratio 4.17 06/02/25 06:38: POC Glucose 169 H 06/02/25 11:00: Lactic Acid 1.3 06/02/25 11:12: POC Glucose 117 H 06/02/25 13:50: Phosphorus 5.8 H 06/02/25 15:49: Phosphorus 4.7 H Microbiology: Microbiology 06/02/25 00:55 Mucosa - Nose SARS-CoV-2, Influenza & RSV (PCR) - Final Radiography Diagnostic Testing: Radiology Impression Chest X-Ray 06/01/25 20:26 IMPRESSION: NO ACUTE FINDINGS. Reading Location: [id number] Chest CTA 06/02/25 01:54 IMPRESSION: No evidence of pulmonary arterial thromboembolism. No obvious pulmonary masses or consolidations. Reading [facility] Echocardiogram 06/02/25 02:13 Interpretation Summary The left ventricular ejection fraction is 60 %. Stage 1 diastolic dysfunction. Mild concentric left ventricular hypertrophy. Mild focal aortic valve thickening. The study was technically difficult. Contrast injection was performed. Compared to prior study, there is no significant change. Ordering Physician: Vladislav Romano Referring Physician: Sonny Price Performed By: Larissa Knox RDCS, RVT D/C Instructions Call your doctor if you observe: Fever of 101 or Higher, Shortness of breath, Dizziness, Fainting spells, Swelling in the ankles, Chest pain and Increased palpitations (irregular heartbeat) DC O2, CPAP, BIPAP Needs Home O2 Discharge instructions: No Meaningful Use Info Meaningful Use Meaningful Use Diagnoses (Choose all that apply): None applicable Discharge Plan Admission Admit Date/Time: 06/02/25 01:40 Attending Provider: Jose Colmenares Primary Care Provider: Sonny Price Consulting Providers: Vladislav Romano Instructions Additional Instructions / Restrictions: Follow-up primary care doctor in 3 to 5 days to monitor your kidney function and phosphorus level Discharge Orders/Prescriptions Prescriptions: Continued metoprolol succinate 50 mg tablet extended release 24 hr 50 mg PO QHS atorvastatin 40 mg tablet 40 mg PO QHS paroxetine HCl 40 mg tablet 40 mg PO QHS metformin 500 mg tablet 1,000 mg PO BID amlodipine 10 MG tablet 10 mg PO QHS levothyroxine 125 MCG tablet 125 mcg PO DAILY glimepiride 2 mg tablet 2 mg PO DAILY isosorbide dinitrate 5 mg tablet 5 mg PO BID Rx Instructions: allow nitrate-free interval of 12-14 hrs per 24-hr period folic acid 1 mg tablet 1 mg PO DAILY Mounjaro 2.5 mg/0.5 mL pen injector 2.5 mg subcut QWEEK nitroglycerin 0.4 mg Tablet, Sublingual 0.4 mg sublingual Q5M PRN (Reason: CHEST PAIN ) Qty: 14 0RF aspirin 81 mg tablet,delayed release (DR/EC) 81 mg PO DAILY Qty: 90 3RF Referrals / Follow Up: Sonny Price MD [Primary Care Provider, Medical] - Within 1 Week Disposition Disposition (needs filled in before D/C Order can be placed): Home, Self Care Charges/Coding Visit Charges Inpatient E&M: 48339 Disch Hosp >30min
== END 2025-06-02 17:25 | disposition home or self-care (01) | DRG 313 ==
LOC: ED 19:59 → PCU 06-02 02:57
PROVIDERS: Admitting Provider Internal Medicine; Emergency Provider Student in an Organized Health Care Education/Training Program; PCP Family Medicine; Visit Provider Family Medicine
DX: R07.2 Precordial pain (principal); C91.10 Chronic lymphocytic leukemia of B-cell type not having achieved remission; Z68.41 Body mass index [BMI] 40.0-44.9, adult; E83.39 Other disorders of phosphorus metabolism; E11.9 Type 2 diabetes mellitus without complications; E03.9 Hypothyroidism, unspecified; I10 Essential (primary) hypertension; I25.10 Atherosclerotic heart disease of native coronary artery without angina pectoris; E78.5 Hyperlipidemia, unspecified; F41.9 Anxiety disorder, unspecified; G47.33 Obstructive sleep apnea (adult) (pediatric); I25.2 Old myocardial infarction; R06.02 Shortness of breath; E66.813 Obesity, class 3; Z79.82 Long term (current) use of aspirin; Z79.84 Long term (current) use of oral hypoglycemic drugs; Z79.85 Long-term (current) use of injectable non-insulin antidiabetic drugs; Z79.890 Hormone replacement therapy; Z87.891 Personal history of nicotine dependence; Z95.5 Presence of coronary angioplasty implant and graft
CPT/HCPCS: 36415; 71046; 71275; 78452; 80048; 80053; 80061; 81001; 82962; 83036; 83605; 83735; 84100; 84484; 85025; 85379; 85610; 87631; 93005; 93017; 93306; 99285; A9500; Q9957; Q9967; A4216; C8929; J2785

== ENCOUNTER 2025-09-06 10:25 | Emergency (ER) | payer OTHER, SELFPAY ==
[2025-09-06 10:26] VITALS: BP 107/95; PULSE 107; RESP 26; TEMP 37.4; O2SAT 96; BMI 41.8
--- NOTE | 2025-09-06 10:41 | EKG12_ITS ---
Test Reason : NEAR SYNCOPE Blood Pressure : */* mmHG Vent. Rate : 90 BPM Atrial Rate : 90 BPM P-R Int : 144 ms QRS Dur : 102 ms QT Int : 362 ms P-R-T Axes : 70 27 35 degrees QTcB Int : 442 ms Normal sinus rhythm Incomplete right bundle branch block Borderline ECG Confirmed by Vladislav Salgado ([id number]), purchasing expeditor BENITEZ NEWTON ([id number]) on 09/11/2025 9:06:02 AM Referred By: LIZ Confirmed By: Vladislav Salgado
--- NOTE | 2025-09-06 10:50 | EX.ED.DYSGE1 ---
HPI History of Present Illness Chief Complaint: General Illness Informant: patient and spouse/S.O. Narrative Narrative: 54-year-old male history of coronary artery disease and diabetes CLL presenting to the emergency room chief complaint of not feeling well. Patient states on Thursday he began to have body aches slight sore throat. By Thursday he felt worse having myalgias headache fevers of up to 102. He notes decreased oral intake due to throat pain. He states he has been taking NyQuil and other [id number]'s without relief. Today getting a shower he felt very dizzy/lightheaded like he may pass out but did not. No chest pain. He notes phlegm production with cough. [facility] Medical History Infection due to ESBL-producing Escherichia coli Anxiety Depression Diabetes Kidney stones Former smoker BiPAP (biphasic positive airway pressure) dependence Sleep apnea Myocardial infarct Hypertension Atherosclerosis of coronary artery of [place] heart without angina pectoris Leukocytosis JOSIAH (obstructive sleep apnea) Type 2 diabetes mellitus Family history of heart disease Essential hypertension Nausea vomiting and diarrhea Colitis Elevated liver enzymes Sepsis Depression Hyperlipidemia Hypertension Home Medications ?Medication ?Instructions ?Recorded ?Last Taken ?Type amlodipine 10 mg tablet 10 mg PO QHS BLOOD PRESSURE 03/15/18 05/31/25 History levothyroxine 125 mcg tablet 125 mcg PO DAILY THYROID 02/08/19 06/01/25 History atorvastatin 40 mg tablet 40 mg PO QHS CHOLESTEROL 10/09/22 05/30/25 History metformin 500 mg tablet 1,000 mg PO BID BLOOD SUGARS 10/09/22 06/01/25 History paroxetine HCl 40 mg tablet 40 mg PO QHS DEPRESSION 10/09/22 05/31/25 History metoprolol succinate 50 mg 50 mg PO QHS BLOOD PRESSURE 10/13/22 05/31/25 History tablet,extended release 24 hr glimepiride 2 mg tablet 2 mg PO DAILY blood sugar 10/07/23 06/01/25 History aspirin 81 mg tablet,delayed 81 mg PO DAILY #90 TABLETS 08/25/24 06/01/25 Rx release isosorbide dinitrate 5 mg tablet 5 mg PO BID angina 06/02/25 06/01/25 History nitroglycerin 0.4 mg sublingual 0.4 mg sublingual Q5M PRN CHEST 06/02/25 Unknown Rx tablet PAIN #14 tabs tirzepatide 2.5 mg/0.5 mL 2.5 mg subcut QWEEK blood sugar 06/02/25 05/30/25 History subcutaneous pen injector (Adolfo) folic acid 1 mg tablet 1 mg PO DAILY #90 TABLETS 09/05/25 Unknown Rx benzocaine 15 mg-menthol 2.6 mg 1 benny mucous membrane Q2H PRN sore 09/06/25 Unknown Rx lozenges (Cepacol Sore Throat throat #32 ea (benzocaine-menthol)) Allergy/AdvReac Type Severity Reaction Status Date / Time No Known Allergies Allergy Verified 09/06/25 10:27 Family History Father Myocardial infarction, Onset Age: 45 Mother Hypertension Mixed hyperlipidemia Grandmother CHF (congestive heart failure) Surgical History History of left heart catheterization (10/09/23) History of coronary artery stent placement (~10/24/22) History of tonsillectomy Status post excision of lipoma Social History household members: spouse Smoking Status: Former smoker alcohol intake: current details: occasional substance use type: does not use caffeine: Yes Type: carbonated beverages Number of servings: 6 ROS ROS ED Constitutional Constitutional ED: Reports chills, fever(s) and sweats; Denies weight loss Eyes Eyes: Denies change in vision or diplopia ENT ENT ED: Reports rhinorrhea and sore throat; Denies ear pain Cardiovascular Cardiovascular: Reports other Details: Dizzy/lightheaded near syncope ; Denies chest pain, orthopnea, palpitations or racing heartbeat Respiratory/Chest Respiratory/Chest: Reports cough and sputum; Denies dyspnea or orthopnea Gastrointestinal Gastrointestinal: Denies abdominal pain, diarrhea, nausea or vomiting Genitourinary Genitourinary ED: Denies dysuria, hematuria or urinary frequency Musculoskeletal Musculoskeletal: Reports arthralgias and myalgias Integumentary Denies abscess or rash Neurologic Neurologic: Denies headache(s) or weakness Psychiatric Psychiatric: Denies anxiety, depression, suicidal ideation or suicidal thoughts Endocrine Endocrinology: Denies polydipsia, polyphagia or polyuria Allergic/Immunologic Allergic/Immunologic ED: Denies mouth swelling, tongue swelling or urticaria EXAM Physical Exam Const Vital Signs: 09/06/25 10:26 09/06/25 11:11 09/06/25 11:29 Temperature 99.4 F H 98.6 F Temperature Source Oral Oral Pulse Rate 107 H 88 Respiratory Rate 26 H 26 H Respiratory Pattern Normal Blood Pressure 107/95 H 156/97 H Blood Pressure Mean 99 116 Pulse Ox 96 93 Oxygen Delivery Method Room Air Room Air 09/06/25 12:26 Temperature Temperature Source Pulse Rate 86 Respiratory Rate Respiratory Pattern Blood Pressure 157/97 H Blood Pressure Mean 117 Pulse Ox Oxygen Delivery Method Positive well nourished and well developed General Appearance ED: well developed HEENT Reports normocephalic, head/scalp atraumatic and moist mucous membranes HEENT Narrative: Nasal congestion mild oropharyngeal erythema without abscess or exudate Eyes PERRL and EOMs intact bilaterally Neck no lymphadenopathy, supple and no JVD Resp normal respiratory effort and clear to auscultation bilaterally Cardio regular rate, regular rhythm and no murmurs GI normal to inspection, nondistended, normoactive bowel sounds and non-tender Palpation: soft Back/Spine no CVA tenderness and normal ROM Extremity normal to inspection General Extremety ED: Negative for edema General Extremity: Negative for edema Neuro oriented x3 and CN's II-XII intact bilaterally Sensorium / Orientation: alert Motor Exam: strength 5/5 throughout Psych mental status grossly normal Mood & Affect: Negative for depressed or tearful Skin no rashes or lesions noted and no wounds MDM MDM MDM Narrative Medical decision making narrative: Differential diagnosis includes viral syndrome pneumonia dehydration electrolyte abnormalities acute kidney injury anemia vasovagal near syncope cardiac syncope Basic blood work was obtained shows white count of 11 hemoglobin is 13.3 platelet count 195. BMP shows a glucose of 199 alk phos 135 urinalysis appears rather dark on gross 6 examination but no obvious infection or blood. My independent interpretation the chest x-ray is no acute process. EKG shows a normal sinus rhythm ventricular rate of 90 bpm. COVID influenza RSV swab was negative. No events on the monitor. Patient received a dose of IV fluids. He also received throat lozenges which helped his throat pain. Patient will be discharged home with supportive care. I suspect that he is recovering from a acute viral syndrome much like influenza. History & Record Review Discussion w/independent historian: Patient and Family Lab Data Attestation: I reviewed the patient's lab results. Labs: Laboratory Results - last 24 hr 09/06/25 09/06/25 10:49 11:41 WBC 11.0 RBC 4.93 Hgb 13.3 Hct 41.6 MCV 84.4 MCH 27.0 MCHC 32.0 RDW Std Deviation 45.5 H RDW Coeff of Melva 14.7 H Plt Count 195 MPV 9.3 Immature Gran % (Auto) 0.600 Neut % (Auto) 81.4 H Lymph % (Auto) 11.0 L [place] % (Auto) 5.8 Eos % (Auto) 0.9 Baso % (Auto) 0.3 Absolute Neuts (auto) 8.9 H Absolute Lymphs (auto) 1.21 Nucleated RBC % 0 Sodium 134 L Potassium 3.7 Chloride 96 Carbon Dioxide 24.9 Anion Gap 13 BUN 11 Creatinine 1.14 Estim Creat Clear Calc 95.28 Est GFR (MDRD) Non-Af 76 BUN/Creatinine Ratio 9.7 L Glucose 199 H Calcium 9.2 Total Bilirubin 0.80 AST 62 H ALT 90 H Alkaline Phosphatase 135 H Total Protein 8.1 Albumin 3.8 Globulin 4.3 H Albumin/Globulin Ratio 0.9 Urine Color Yellow Urine Clarity Clear Urine pH 6.0 Ur Specific [place] 1.020 Urine Protein 30 H Urine Glucose (UA) Normal Urine Ketones Negative Urine Occult Blood 10 H Urine Nitrite Negative Urine Bilirubin 1 H Urine Urobilinogen 4 H Ur Leukocyte Esterase 25 H Urine RBC 0 SEEN Urine WBC 0-5 SEEN Ur Squamous Epith Cells 0-5 SEEN Urine Bacteria 0 SEEN Urine Mucus 0 SEEN Radiography Diagnostic Testing: Clinical Impression(s) from Imaging Studies Chest X-Ray 09/06/25 11:08 IMPRESSION: Lungs are somewhat hypoinflated, but appear clear of acute disease. No pleural effusion or pneumothorax is noted. The cardiomediastinal silhouette is stable, without evidence of cardiomegaly. No acute osseous change is seen. Reading Location: [place] [id number] EKG Initial EKG: Attestation: I personally reviewed and interpreted this EKG as follows: Comments: Normal sinus rhythm ventricular rate of 90 bpm. Incomplete right bundle branch block noted Discharge Plan Triage Chief Complaint: General Illness ED Provider: Chao Kaiser Dx/Rx/DC Orders Clinical Impression: Acute viral syndrome, Acute dehydration Instructions: Dehydration, ED Influenza (Adult) Prescriptions: New Cepacol Sore Throat (nolan-men) 15-2.6 mg lozenge 1 benny mucous membrane Q2H PRN (Reason: sore throat) Qty: 32 0RF No Action metoprolol succinate 50 mg tablet extended release 24 hr 50 mg PO QHS atorvastatin 40 mg tablet 40 mg PO QHS paroxetine HCl 40 mg tablet 40 mg PO QHS metformin 500 mg tablet 1,000 mg PO BID amlodipine 10 MG tablet 10 mg PO QHS levothyroxine 125 MCG tablet 125 mcg PO DAILY glimepiride 2 mg tablet 2 mg PO DAILY isosorbide dinitrate 5 mg tablet 5 mg PO BID Rx Instructions: allow nitrate-free interval of 12-14 hrs per 24-hr period Mounjaro 2.5 mg/0.5 mL pen injector 2.5 mg subcut QWEEK nitroglycerin 0.4 mg Tablet, Sublingual 0.4 mg sublingual Q5M PRN (Reason: CHEST PAIN ) Qty: 14 0RF aspirin 81 mg tablet,delayed release (DR/EC) 81 mg PO DAILY Qty: 90 3RF folic acid 1 mg tablet 1 mg PO DAILY Qty: 90 3RF Primary Care Provider: Sonny Price Referrals: Sonny Price MD [Primary Care Provider, Medical] - As Needed Print Language: Guyanese Disposition Disposition: Home, Self Care
[2025-09-06 10:57] LABS: Hematocrit 41.6 % (40-54); Hemoglobin 13.3 g/dL (13.0-16.5); Immature Granulocytes Count 0.070 X10^3/uL (0.0-0.0); Mean Corp Hgb Conc 32.0 g/dL (32-36); Mean Corpuscular Volume 84.4 fL (80-94); Mean Platelet Vol. 9.3 fl (6.2-12.0); NRBC Flagged by Analyzer 0 % (0-5); Platelet Count 195 K/mm3 (150-450); RBC Distribution Width CV 14.7 % (11.6-14.6); RBC Distribution Width SD 45.5 fl (35.1-43.9); Red Blood Count 4.93 M/mm3 (4.6-6.2); White Blood Count 11.0 K/mm3 (4.4-11.0)
[2025-09-06] MEDS: 0.9% Normal Saline (1000mL) 1,000 ML 1000 ML IV (10:59)
[2025-09-06] MEDS: BENZOCAINE/MENTHOL 1 LOZENGE MUCOUS MEM (11:01)
--- NOTE | 2025-09-06 11:08 | RAD_ITS ---
PROCEDURE: CHEST 1 VIEW (PORTABLE) 09/06/2025 REASON FOR EXAM: COUGH AND FEVER TECHNIQUE: Frontal view of the chest. COMPARISON: Chest x-ray 06/01/2025. RAD/Chest 1 View (Portable) IMPRESSION: Lungs are somewhat hypoinflated, but appear clear of acute disease. No pleural effusion or pneumothorax is noted. The cardiomediastinal silhouette is stable, without evidence of cardiomegaly. No acute osseous change is seen. Reading Location: [place] [address]
[2025-09-06 11:18] LABS: AST(SGOT) 62 U/L (<=37); Alanine Aminotransfer ALT/SGPT 90 U/L (<=46); Albumin, Serum 3.8 g/dL (3.5-5.0); Alkaline Phosphatase 135 U/L (40-129); Anion Gap 13 (7-18); BUN 11 mg/dL (4-19); BUN/Creat Ratio 9.7 RATIO (10-20); Calcium,Total 9.2 mg/dL (7.6-11.0); Carbon Dioxide 24.9 mmol/L (20.0-29.0); Chloride 96 mmol/L (96-106); Estimated Creatinine Clearance 95.28 ml/min (50-250); Globulin 4.3 g/dL (2.2-4.2); Glucose 199 mg/dL (70-99); Potassium 3.7 mmol/L (3.5-5.1)
[2025-09-06 11:29] VITALS: BP 156/97; PULSE 88; RESP 26; TEMP 37; O2SAT 93
[2025-09-06 11:44] LABS: Mucous, Urine 0 SEEN /hpf (<or=2+); Red Blood Cells-Urine 0 SEEN /hpf (0-5)
[2025-09-06 11:46] LABS: Color, Urine Yellow (Yellow); Glucose, Dipstick Normal (Normal); Ketone-Dipstick Negative (Negative); Leukocyte Esterase-Dipstick 25 /ul (Negative); Nitrite-Dipstick Negative (Negative); Occult Blood-Urine 10 /ul (Negative); Protein-Dipstick 30 mg/dl (Negative); Specific Gravity, Urine 1.020 (1.002-1.030)
[2025-09-06 11:53] LABS: Urine Bilirubin Dipstick 1 mg/dL (Negative)
[2025-09-06 11:55] LABS: Squamous Epithelial Cells - UA 0-5 SEEN /hpf (0-5)
[2025-09-06 12:26] VITALS: BP 157/97; PULSE 86
[2025-09-06 15:53] VITALS: BP 139/74; PULSE 82; RESP 16; TEMP 37; O2SAT 100
== END 2025-09-06 15:54 | disposition home or self-care (01) ==
PROVIDERS: Emergency Provider Emergency Medicine; PCP Family Medicine; Visit Provider Emergency Medicine
DX: E86.0 Dehydration (principal); B34.9 Viral infection, unspecified; R05.8 Other specified cough; Z87.891 Personal history of nicotine dependence
CPT/HCPCS: 71045; 80053; 81001; 85025; 87631; 93005; 96360; 99284; A4216